=== PATIENT | male | born 1955 | race Hispanic/Latino ===

== ENCOUNTER 2019-03-26 13:53 | Emergency (ER) | payer OTHER ==
--- OUTSIDE RECORDS SUMMARY | 2019-03-26 13:55 | XMS REPORT ---
:1955 [facility] Team Providers Name Role Phone GabrielBenjamín Provider Role Unavailable Allergies, Adverse Reactions, Alerts Substance Reaction Event Type N.K.D.A. 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 automatic cardioverter/defibrillator (AICD) Problem Microalbuminuria R80.9 Active Problem Benign essential HTN I10 Active Problem Adult BMI 35.0-35.9 kg/sq m Z68.35 Active Problem Hyperlipidemia, mixed E78.2 Active Problem Arteriosclerosis of coronary artery I25.10 Active Problem Diabetes type 2, uncontrolled E11.65 Active Problem Stented coronary artery Z95.5 Active Assessment Adult BMI 35.0-35.9 kg/sq m Z68.35 Active Assessment Stented coronary artery Z95.5 Active Assessment Arteriosclerosis of coronary artery I25.10 Active Assessment Microalbuminuria R80.9 Active Assessment Hyperlipidemia, mixed E78.2 Active Assessment Status post implantation of 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 automatic cardioverter/defibrillator (AICD) Assessment Benign essential HTN I10 Active Medications Medication Code Code Instructions Start End Status Dosage System Date Date Jardiance [facility] 29021326203 25 MG Orally Nov 06, Inactive 1 tablet Once a day 2018 Metformin HCl [facility] 24270650762 1000 MG Orally Active 1 tablet Twice a day with meals Lipitor [facility] 18320868152 80 MG Orally Active 1 tablet Once a day Coreg [facility] 44101612141 6.25 MG Orally Active 1 tab BID Tradjenta [facility] 83266716860 5 MG Orally Active 1 tablet Once a day Tradjenta [facility] 91457421261 5 MG Orally Active 1 tablet Once a day Victoza [facility] 59508813259 18 MG/3ML Active as directed Subcutaneous once a day Metformin HCl [facility] 71358964568 1000 MG Orally Active 1 tablet Twice a day with meals Lisinopril [facility] 73003378676 5 MG Orally Active 1 tablet Once a day Glimepiride [facility] 02862399722 4 MG Orally Active 1 tablet Twice a day with breakfast or the first main meal of the day Aspir-81 [facility] 45029502904 81 MG Orally Active 1 tablet Once a day Results No Known Results Summary Purpose eClinicalWorks Submission
--- OUTSIDE RECORDS SUMMARY | 2019-03-26 13:55 | XMS REPORT ---
:1955 Author Organization eClinicalWorks Care Team Providers Name Role Phone Benjamín Gabriel Provider Role Unavailable Allergies, Adverse Reactions, Alerts Substance Reaction Event Type N.K.D.A. 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 automatic cardioverter/defibrillator (AICD) Problem Stented coronary artery Z95.5 Active Problem Hyperlipidemia, mixed E78.2 Active Assessment Status post implantation of 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 automatic cardioverter/defibrillator (AICD) Assessment Stented coronary artery Z95.5 Active Assessment Arteriosclerosis of coronary artery I25.10 Active Assessment Microalbuminuria R80.9 Active Assessment Hyperlipidemia, mixed E78.2 Active Medications Medication Code Code Instructions Start End Status Dosage System Date Date Coreg [facility] 00755344493 6.25 MG Orally Active 1 tab BID -81 [facility] 61274673095 81 MG Orally Active 1 tablet Once a day Metformin HCl [facility] 19985656492 1000 MG Orally Active 1 tablet Twice a day with meals Glimepiride [facility] 38930228336 4 MG Orally Active 1 tablet Twice a day with breakfast or the first main meal of the day Victoza [facility] 35292314286 18 MG/3ML Active as directed Subcutaneous once a day Lipitor [place] 53893178128 80 MG Orally Active 1 tablet Once a day Lisinopril [facility] 06265222293 5 MG Orally Active 1 tablet Once a day Jardiance [facility] 81442650555 25 MG Orally Active 1 tablet Once a day Results No Known Results Summary Purpose eClinicalWorks Submission
--- OUTSIDE RECORDS SUMMARY | 2019-03-26 13:55 | XMS REPORT ---
:1955 Author Organization eClinicalWorks Care Team Providers Name Role Phone GabrielBenjamín Provider Role Unavailable Allergies, Adverse Reactions, Alerts Substance Reaction Event Type N.K.D.A. 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 automatic cardioverter/defibrillator (AICD) Problem Stented coronary artery Z95.5 Active Problem Hyperlipidemia, mixed E78.2 Active Medications Medication Code Code Instructions Start End Status Dosage System Date Date Glimepiride [facility] 07625203751 4 MG Orally Active 1 tablet Twice a day with breakfast or the first main meal of the day Lisinopril [facility] 01953022015 5 MG Orally Active 1 tablet Once a day Jardiance [facility] 05200917156 25 MG Orally Active 1 tablet Once a day Glimepiride [facility] 22746600109 4 MG Orally Active 1 tablet Twice a day with breakfast or the first main meal of the day Coreg [facility] 24502931577 6.25 MG Orally Active 1 tab BID Aspir-81 [facility] 00925295838 81 MG Orally Active 1 tablet Once a day Tradjenta [facility] 75202411863 5 MG Orally Oct 18, Active 1 tablet Once a day 2018 Lipitor [facility] 78114188074 80 MG Orally Active 1 tablet Once a day Metformin HCl [facility] 11128443021 1000 MG Orally Active 1 tablet Twice a day with meals Pennsaid [facility] 90823423495 2 % Transdermal Oct 02, Nov 01, Active 2 pumps to Twice a day PRN 2018 2018 affected Pain area Victoza [facility] 12902112927 18 MG/3ML Active as directed Subcutaneous once a day Results No Known Results Summary Purpose eClinicalWorks Submission
--- OUTSIDE RECORDS SUMMARY | 2019-03-26 13:56 | XMS REPORT ---
:1955 Author Organization eClinicalWorks Care Team Providers Name Role Phone Benjamín Gabriel Provider Role Unavailable Allergies, Adverse Reactions, Alerts Substance Reaction Event Type N.K.D.A. Info Not Available Non Drug Allergy Problems Problem Type Condition Code Onset Dates Condition Status Problem Arteriosclerosis of coronary artery I25.10 Active Problem Status post implantation of 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 automatic cardioverter/defibrillator (AICD) Assessment Noncompliance with dietary Z91.11 Active restriction Assessment Adult BMI 35.0-35.9 kg/sq m Z68.35 Active Assessment Diabetes type 2, uncontrolled E11.65 Active Problem Adult BMI 35.0-35.9 kg/sq m Z68.35 Active Problem Microalbuminuria R80.9 Active Problem Noncompliance with dietary Z91.11 Active restriction Problem Stented coronary artery Z95.5 Active Problem Hyperlipidemia, mixed E78.2 Active Problem Benign essential HTN I10 Active Problem Diabetes type 2, uncontrolled E11.65 Active Medications Medication Code Code Instructions Start End Status Dosage System Date [facility] 2] 40215222338 81 MG Orally Active 1 tablet Once a day Coreg [facility] 2] 23811110337 6.25 MG Orally Active 1 tab BID Tradjenta [facility] 2] 73284277936 5 MG Orally Inactive 1 tablet Once a day Lipitor ND 65582808683 80 MG Orally Active 1 tablet Once a day Metformin HCl ND 15360005817 1000 MG Orally Active 1 tablet Twice a day with meals Glimepiride ND 41069661000 4 MG Orally Active 1 tablet Twice a day with breakfast or the first main meal of the day Lisinopril [facility] 2] 70749172324 5 MG Orally Active 1 tablet Once a day Farxiga [facility]NOTE 2] 43795891156 10mg By Mouth November Active 1 Daily 2018 Tradjenta [facility] [place]NOTE 2] 16744197396 5 MG Orally Active 1 tablet Once a day Victoza [facility] [place]NOTE 2] 39042367811 18 MG/3ML Active as directed Subcutaneous once a day Results Name Result Date Reference Range Unit Abnormality Flag HEMOGLOBIN A1C ----A1C 8.9 [id number] Summary Purpose eClinicalWorks Submission
--- NOTE | 2019-03-26 14:28 | ER ---
Nurse's Notes [facility] Name: Jayme Galeano Age: 64 yrs Sex: Male : 1955 Arrival Date: 03/26/2019 Time: 13:54 Bed 28 Private MD: Benjamín Gabriel Diagnosis: Mid Back pain Presentation: 03/26 14:06 Presenting complaint: Patient states: Mid back pain for 2 weeks. Seen by PCP and given aj IM injection. Has appointment tomorrow but feels he cannot wait. Care prior to arrival: None. 14:06 Acuity: ADY 4 aj 14:22 Transition of care: patient was not received from another setting of care. Onset of ca1 symptoms was March 26, 2019. Risk Assessment: Do you want to hurt yourself or someone else? Patient reports no desire to harm self or others. Initial Sepsis Screen: Does the patient meet any 2 criteria? No. Patient's initial sepsis screen is negative. Does the patient have a suspected source of infection? No. Patient's initial sepsis screen is negative. 14:22 Method Of Arrival: Wheelchair ca1 Triage Assessment: 14:07 General: Appears in no apparent distress. uncomfortable, Behavior is calm, cooperative, aj appropriate for age. Pain: Complains of pain in mid back area. Neuro: Level of Consciousness is awake, alert, obeys commands, Oriented to person, place, time, situation, Appropriate for age. Respiratory: Airway is patent Respiratory effort is even, unlabored, Respiratory pattern is regular, symmetrical. Musculoskeletal: Circulation, motion, and sensation intact. Range of motion: intact in all extremities, Reports pain in mid back area. Historical: - Allergies: 14:07 No Known Allergies; aj - Immunization history:: Adult Immunizations up to date. - Social history:: Smoking status: Patient/guardian denies using tobacco. - Ebola Screening: : Patient negative for fever greater than or equal to 101.5 degrees Fahrenheit, and additional compatible Ebola Virus Disease symptoms Patient denies exposure to infectious person Patient denies travel to an Ebola-affected area in the 21 days before illness onset. Screenin:16 Abuse screen: Denies threats or abuse. Denies injuries from another. Nutritional ca1 screening: No deficits noted. Tuberculosis screening: No symptoms or risk factors identified. Fall Risk None identified. Assessment: 14:16 General: Appears in no apparent distress. comfortable, Behavior is calm, cooperative, ca1 appropriate for age. Pain: Complains of pain in back and mid back area Pain does not radiate. Pain currently is 3 out of 10 on a pain scale. at worst was 8 out of 10 on a pain scale. Quality of pain is described as throbbing, Pain began 2-3 days ago. Is episodic, Aggravated by repositioning, weight bearing. Neuro: Level of Consciousness is awake, alert, obeys commands, Oriented to person, place, time, situation. Cardiovascular: Heart tones S1 S2 present Capillary refill < 3 seconds Patient's skin is warm and dry. Respiratory: Airway is patent Respiratory effort is even, unlabored, Respiratory pattern is regular, symmetrical, Breath sounds are clear bilaterally. GI: Abdomen is round non-distended, Bowel sounds present X 4 quads. Abd is soft and non tender X 4 quads. : No deficits noted. No signs and/or symptoms were reported regarding the genitourinary system. EENT: No deficits noted. No signs and/or symptoms were reported regarding the EENT system. Derm: Skin is intact, is healthy with good turgor, Skin is pink, warm \T\ dry. Musculoskeletal: Circulation, motion, and sensation intact. Capillary refill < 3 seconds, Range of motion: intact in all extremities. 14:46 Reassessment: Patient appears in no apparent distress at this time. Patient is alert, ca1 oriented x 3, equal unlabored respirations, skin warm/dry/pink. Vital Signs: 14:07 BP 114 / 74; Pulse 84; Resp 16; Temp 98.0; Pulse Ox 98% on R/A; Weight 97.52 kg; Height aj 5 ft. 6 in. (167.64 cm); 14:46 BP 114 / 59; Pulse 81; Resp 16 S; Pulse Ox 96% on R/A; ca1 14:07 Body Mass Index 34.70 (97.52 kg, 167.64 cm) aj ED Course: 13:54 Patient arrived in ED. as 13:54 Benjamín Gabriel DO is Private Physician. as 14:07 Triage completed. aj 14:07 Arm band placed on right wrist. Patient placed in an exam room. aj 14:12 [facility]nutson [facility]C [facility] kb 14:12 Etseban Muller MD is Attending Physician. kb 14:15 Alona Avalos, RN is Primary Nurse. ca1 14:16 Patient has correct armband on for positive identification. Bed in low position. Call ca1 light in reach. Side rails up X 1. Pulse ox on. NIBP on. 14:16 No provider procedures requiring assistance completed. ca1 14:47 Patient did not have IV access during this emergency room visit. ca1 Administered Medications: 14:28 Drug: [place] 10 mg-325 mg 1 tabs Route: PO; ca1 14:46 Follow up: Response: No adverse reaction; Pain is decreased ca1 Outcome: 14:27 Discharge ordered by MD. kb 14:47 Discharged to home via wheelchair, with family. ca1 14:47 Condition: stable 14:47 Discharge instructions given to patient, Instructed on discharge instructions, follow up and referral plans. medication usage, Demonstrated understanding of instructions, follow-up care, Prescriptions given X 2. 14:47 Patient left the ED. ca1 Signatures: Coco Knutson, CHARGE RN-C CHARGE RN-Maude Ovalles, RN RN Sayda Miller as Alona Avalos, IQRA RN ca1
--- NOTE | 2019-03-26 14:28 | EDPHYS ---
Physician Documentation [facility] Name: Jayme Galeano Age: 64 yrs Sex: Male : 1955 Arrival Date: 03/26/2019 Time: 13:54 Bed 28 Private MD: Benjamín Gabriel ED Physician Esteban Muller HPI: 03/26 14:24 This 64 yrs old Male presents to ER via Wheelchair with complaints of Back kb Pain. 14:24 The patient presents with pain that is acute, with no known mechanism of injury. The kb symptoms are located in the mid back area. Onset: The symptoms/episode began/occurred last week. The pain does not radiate. Associated signs and symptoms: Pertinent positives: none. The problem was sustained from unknown cause. Modifying factors: The patient symptoms are alleviated by nothing, the patient symptoms are aggravated by any movement. Severity of symptoms: At their worst the symptoms were moderate, in the emergency department the symptoms are unchanged. The patient has not experienced similar symptoms in the past. The patient has been recently seen by a physician:. Reports pain across mid back that started last week. Saw PCP and was given a shot that worked for 3 days, but the pain returned. Has appt with PCP tomorrow at 1000 for this, but wanted something for pain. Denies injury or trauma.. Historical: - Allergies: 14:07 No Known Allergies; aj - Immunization history:: Adult Immunizations up to date. - Social history:: Smoking status: Patient/guardian denies using tobacco. - Ebola Screening: : Patient negative for fever greater than or equal to 101.5 degrees Fahrenheit, and additional compatible Ebola Virus Disease symptoms Patient denies exposure to infectious person Patient denies travel to an Ebola-affected area in the 21 days before illness onset. ROS: 14:26 Constitutional: Negative for fever, chills, and weight loss, Neck: Negative for injury, kb pain, and swelling, Cardiovascular: Negative for chest pain, palpitations, and edema, Respiratory: Negative for shortness of breath, cough, wheezing, and pleuritic chest pain, Abdomen/GI: Negative for abdominal pain, nausea, vomiting, diarrhea, and constipation, : Negative for injury, bleeding, discharge, and swelling, MS/Extremity: Negative for injury and deformity, Skin: Negative for injury, rash, and discoloration, Neuro: Negative for headache, weakness, numbness, tingling, and seizure. 14:26 Back: Positive for pain at rest, pain with movement, of the mid back area. Exam: 14:27 Constitutional: This is a well developed, well nourished patient who is awake, alert, kb and in no acute distress. Head/Face: Normocephalic, atraumatic. ENT: Nares patent. No nasal discharge, no septal abnormalities noted. Tympanic membranes are normal and external auditory canals are clear. Oropharynx with no redness, swelling, or masses, exudates, or evidence of obstruction, uvula midline. Mucous membranes moist. Neck: Trachea midline, no thyromegaly or masses palpated, and no cervical lymphadenopathy. Supple, full range of motion without nuchal rigidity, or vertebral point tenderness. No Meningismus. Chest/axilla: Normal chest wall appearance and motion. Nontender with no deformity. No lesions are appreciated. Cardiovascular: Regular rate and rhythm with a normal S1 and S2. No gallops, murmurs, or rubs. Normal PMI, no JVD. No pulse deficits. Respiratory: Lungs have equal breath sounds bilaterally, clear to auscultation and percussion. No rales, rhonchi or wheezes noted. No increased work of breathing, no retractions or nasal flaring. Abdomen/GI: Soft, non-tender, with normal bowel sounds. No distension or tympany. No guarding or rebound. No evidence of tenderness throughout. Back: No spinal tenderness. No costovertebral tenderness. Full range of motion. Skin: Warm, dry with normal turgor. Normal color with no rashes, no lesions, and no evidence of cellulitis. MS/ Extremity: Pulses equal, no cyanosis. Neurovascular intact. Full, normal range of motion. Neuro: Awake and alert, GCS 15, oriented to person, place, time, and situation. Cranial nerves II-XII grossly intact. Motor strength 5/5 in all extremities. Sensory grossly intact. Cerebellar exam normal. Normal gait. Vital Signs: 14:07 BP 114 / 74; Pulse 84; Resp 16; Temp 98.0; Pulse Ox 98% on R/A; Weight 97.52 kg; Height aj 5 ft. 6 in. (167.64 cm); 14:46 BP 114 / 59; Pulse 81; Resp 16 S; Pulse Ox 96% on R/A; ca1 14:07 Body Mass Index 34.70 (97.52 kg, 167.64 cm) ryan MDM: 14:12 Patient medically screened. kb 14:24 Data reviewed: vital signs, nurses notes. Data interpreted: Pulse oximetry: on room air kb is 98 %. Interpretation: normal. Counseling: I had a detailed discussion with the patient and/or guardian regarding: the historical points, exam findings, and any diagnostic results supporting the discharge/admit diagnosis, the need for outpatient follow up, a family practitioner, to return to the emergency department if symptoms worsen or persist or if there are any questions or concerns that arise at home. Administered Medications: 14:28 Drug: [place] 10 mg-325 mg 1 tabs Route: PO; ca1 14:46 Follow up: Response: No adverse reaction; Pain is decreased ca1 Disposition: 17:19 Co-signature as Attending Physician, Esteban Muller MD I agree with the assessment and kdr plan of care. Disposition: 03/26/19 14:27 Discharged to Home. Impression: Mid Back pain. - Condition is Stable. - Discharge Instructions: Back Pain, Adult, [id number]. - Prescriptions for Cyclobenzaprine 10 mg Oral Tablet - take 1 tablet by ORAL route every 8 hours As needed; 21 tablet. Diclofenac Sodium 75 mg Oral Tablet, Delayed Release (E.C.) - take 1 tablet by ORAL route 2 times per day As needed; 30 tablet. - Medication Reconciliation Form, Thank You Letter, Antibiotic Education, Prescription Opioid Use form. - Follow up: Emergency Department; When: As needed; Reason: Worsening of condition. Follow up: Private Physician; When: 2 - 3 days; Reason: Recheck today's complaints, Continuance of care, Re-evaluation by your physician. Signatures: Coco Knutson, KAYLEIGH AGUDELO-Maude Ovalles RN RN aj Rittger, Kevin, MD MD [facility] Alona Avalos RN RN ca1 Corrections: (The following items were deleted from the chart) 14:47 14:27 03/26/2019 14:27 Discharged to Home. Impression: Mid Back pain. Condition is ca1 Stable. Forms are Medication Reconciliation Form, Thank You Letter, Antibiotic Education, Prescription Opioid Use. Follow up: Emergency Department; When: As needed; Reason: Worsening of condition. Follow up: Private Physician; When: 2 - 3 days; Reason: Recheck today's complaints, Continuance of care, Re-evaluation by your physician. kb
[2019-03-26] MEDS ORDERED: HYDROCODONE/APAP 10/325 TAB ONE (14:42)
== END 2019-03-26 14:47 | disposition home or self-care (01) ==
LOC: ER 13:53
DX: M54.9 Dorsalgia, unspecified (principal)
CPT/HCPCS: 99283

== ENCOUNTER 2019-07-16 01:09 | Inpatient (IN) | payer OTHER ==
[2019-07-16 01:49] LABS: Absolute Lymphocytes (CBC) 0.8 K/uL (0.7-4.9); Basophils % 0.2 % (0-1.3); Hematocrit 36.6 % (39.6-49.0); Lymphocytes % 10.9 % (15.3-44.8); MPV 10.1 fL (7.6-11.3); RBC Red Blood Cell Count 3.91 M/uL (4.33-5.43)
[2019-07-16 02:15] LABS: Protime INR 1.06
[2019-07-16 02:31] LABS: ALT/SGPT 38 U/L (12-78); AST/SGOT 22 U/L (15-37); Alkaline Phosphatase 46 U/L (45-117); BUN Blood Urea Nitrogen 37 mg/dL (7-18); Bicarbonate 22 mmol/L (21-32); Bilirubin Direct 0.3 mg/dL (0-0.2); Bilirubin Total 0.6 mg/dL (0.2-1.0); Magnesium 1.6 mg/dL (1.8-2.4); NT PRO-BNP 351 pg/mL (<125); Protein, Total 8.3 g/dL (6.4-8.2); Sodium Level 132 mmol/L (136-145); Troponin (Emerg Dept Use Only) < 0.02 ng/mL (0.0-0.045)
[2019-07-16 02:35] LABS: Glucose Level 531 mg/dL (74-106)
--- NOTE | 2019-07-16 02:50 | ER ---
Nurse's Notes [facility] Name: Jayme Galeano Age: 64 yrs Sex: Male : 1955 Arrival Date: 07/16/2019 Time: 01:10 Bed 19 Private MD: Diagnosis: Chest pain, unspecified Presentation: 07/16 01:22 Presenting complaint: Patient states: Chest pain that began at 2200 tonight; states lp1 taking Nitro x3 with little relief; States pain to center of chest. Transition of care: patient was not received from another setting of care. Onset of symptoms was July 15, 2019 at 22:00. Risk Assessment: Do you want to hurt yourself or someone else? Patient reports no desire to harm self or others. Initial Sepsis Screen: Does the patient meet any 2 criteria? No. Patient's initial sepsis screen is negative. Does the patient have a suspected source of infection? No. Patient's initial sepsis screen is negative. Care prior to arrival: None. 01:22 Method Of Arrival: Wheelchair lp1 01:22 Acuity: ADY 3 lp1 Triage Assessment: 01:51 General: Appears in no apparent distress. wh Historical: - Allergies: 01:26 No Known Allergies; lp1 - Home Meds: :26 Invokana 300 mg oral tab 1 tab once daily [Active]; Victoza 2-Thompson subcutaneous lp1 subcutaneous 1.2 mg once daily [Active]; glimepiride 4 mg Oral tab 1 tab twice a day [Active]; topiramate 50 mg oral tab 1 tab 2 times per day [Active]; atorvastatin 40 mg oral tab 1 tab once daily [Active]; lisinopril 5 mg Oral tab 1 tab once daily [Active]; carvedilol 6.25 mg oral tab 1 tab 2 times per day [Active]; - PMHx: 01:26 Diabetes - IDDM; Hypertension; Hyperlipidemia; lp1 - PSHx: :26 Heart stents; Defibrillator; lp1 - Immunization history:: Adult Immunizations up to date. - Social history:: Smoking status: Patient/guardian denies using tobacco. - Ebola Screening: : No symptoms or risks identified at this time. Screenin:27 Abuse screen: Denies threats or abuse. Denies injuries from another. Nutritional lp1 screening: No deficits noted. Tuberculosis screening: No symptoms or risk factors identified. Fall Risk None identified. Assessment: 01:52 General: Appears in no apparent distress. Behavior is calm, cooperative, appropriate wh for age. Pain: Complains of pain in chest Pain does not radiate. Pain currently is 3 out of 10 on a pain scale. Quality of pain is described as pressure, Pain began 4 hours ago. Neuro: Level of Consciousness is awake, alert, obeys commands, Oriented to person, place, time, situation, Appropriate for age. Cardiovascular: Heart tones S1 S2 Rhythm is regular. Respiratory: Airway is patent Respiratory effort is even, unlabored, Respiratory pattern is regular, symmetrical, Breath sounds are clear bilaterally. GI: Abdomen is flat, non-distended. : No signs and/or symptoms were reported regarding the genitourinary system. EENT: No signs and/or symptoms were reported regarding the EENT system. Derm: Skin is intact, is healthy with good turgor, Skin is pink, warm \T\ dry. normal. Musculoskeletal: Circulation, motion, and sensation intact. 03:19 Reassessment: Patient appears in no apparent distress at this time. No changes from previously documented assessment. Patient and/or family updated on plan of care and expected duration. Pain level reassessed. Patient is alert, oriented x 3, equal unlabored respirations, skin warm/dry/pink. Dr Delaney at bedside discussing admission orders Patient denies pain at this time. Patient states feeling better. Patient states symptoms have improved. Vital Signs: 01:23 BP 157 / 85; Pulse 96; Resp 18; Temp 97.9(O); Pulse Ox 96% on R/A; Weight 97.52 kg; lp1 Height 5 ft. 5 in. (165.10 cm); Pain 5/10; 03:19 BP 108 / 61; Pulse 86; Resp 20; Pulse Ox 98% on R/A; wh 01:23 Body Mass Index 35.78 (97.52 kg, 165.10 cm) lp1 ED Course: 01:10 Patient arrived in ED. cl3 01:13 Claudio Tony PA is PHCP. jr8 01:13 Donald Martinez MD is Attending Physician. jr8 01:15 Vernon Chacon is Primary Nurse. wh 01:15 Inserted saline lock: 20 gauge in right forearm, using aseptic technique. Blood collected. 01:23 Triage completed. lp1 01:23 Arm band placed on right wrist. lp1 01:27 Patient has correct armband on for positive identification. Placed in gown. Bed in low lp1 position. Call light in reach. transition coach on. Pulse ox on. NIBP on. 01:27 Patient maintains SpO2 saturation greater than 95% on room air. lp1 02:02 XRAY Chest (1 view) In Process Unspecified. EDMS 02:35 Notified Nurse Practitioner and/or Physician [address] [employer] of a critical lab result(s), glucose of 531. 02:48 Jeremiah Delaney is Hospitalizing Provider. jr8 04:25 No provider procedures requiring assistance completed. Patient admitted, IV remains in place. Administered Medications: 03:20 Drug: Insulin Regular Human 10 units {Co-Signature: francisco (Ryley Cardenas RN).} Route: Sub-Q; Site: abdomen; 04:27 Follow up: Response: No adverse reaction 03:23 Drug: Insulin Regular Human 10 units {Co-Signature: francisco (Ryley Cardenas RN).} Route: IVP; Site: right forearm; 04:27 Follow up: Response: No adverse reaction 03:24 Drug: Magnesium Sulfate 2 grams Route: IVPB; Infused Over: 2 hrs; Site: right forearm; 04:27 Follow up: Response: No adverse reaction; IV Status: Completed infusion Outcome: 02:48 Decision to Hospitalize by Provider. jr8 04:25 Admitted to [facility] accompanied by nurse, family with patient, via wheelchair, room 423, with chart, Report called to Tonia Costa RN, notified to recheck BS because of 20 units Regular insulin administered 04:25 Condition: stable 04:25 Instructed on the need for admit. 04:28 Patient left the ED. Signatures: Dispatcher [employer] EDCO Kateryna Quevedo, IQRA ESCALONA Velvet Hernandez RN RN lp1 Claudio Tony PA PA jr8 Vernon Chacon Aydin De Anda cl3 Ryley singh
--- NOTE | 2019-07-16 02:50 | EDPHYS ---
Physician Documentation [facility] Name: Jayme Galeano Age: 64 yrs Sex: Male : 1955 Arrival Date: 07/16/2019 Time: 01:10 Bed 19 Private MD: ED Physician Donald Martinez HPI: 07/16 01:22 This 64 yrs old Male presents to ER via Ambulatory with complaints of Chest jr8 Pain. 01:23 The patient or guardian reports chest pain that is located primarily in the substernal jr8 area. Onset: at 22:00. The pain does not radiate. Associated signs and symptoms: Pertinent positives: nausea. The chest pain is described as a pressure. Duration: The patient or guardian reports multiple episodes. Modifying factors: The symptoms are alleviated by NTG, X3. Severity of pain: At its worst the pain was mild today, in the emergency department the pain is unchanged. Pt reports onset of pressure like chest pain at 2200 today while walking out to close the door, mild relief of CP with nitro but pain is persisting after three doses of nitro. Last dose of nitro was at 0000. Pt states he was told to not take ASA by his ortho doc who did a steroid injection today. Historical: - Allergies: : No Known Allergies; lp1 - Home Meds: : Invokana 300 mg oral tab 1 tab once daily [Active]; Victoza 2-Thompson subcutaneous lp1 subcutaneous 1.2 mg once daily [Active]; glimepiride 4 mg Oral tab 1 tab twice a day [Active]; topiramate 50 mg oral tab 1 tab 2 times per day [Active]; atorvastatin 40 mg oral tab 1 tab once daily [Active]; lisinopril 5 mg Oral tab 1 tab once daily [Active]; carvedilol 6.25 mg oral tab 1 tab 2 times per day [Active]; - PMHx: : Diabetes - IDDM; Hypertension; Hyperlipidemia; lp1 - PSHx: : Heart stents; Defibrillator; lp1 - Immunization history:: Adult Immunizations up to date. - Social history:: Smoking status: Patient/guardian denies using tobacco. - Ebola Screening: : No symptoms or risks identified at this time. ROS: 01:22 Constitutional: Negative for fever, chills, and weight loss, Eyes: Negative for injury, jr8 pain, redness, and discharge, ENT: Negative for injury, pain, and discharge, Neck: Negative for injury, pain, and swelling, Respiratory: Negative for shortness of breath, cough, wheezing, and pleuritic chest pain, Abdomen/GI: Negative for abdominal pain, nausea, vomiting, diarrhea, and constipation, Back: Negative for injury and pain, Neuro: Negative for headache, weakness, numbness, tingling, and seizure. 01:22 Cardiovascular: Positive for chest pain, of the mid-sternal area, Negative for edema, orthopnea, palpitations. Exam: :23 Constitutional: This is a well developed, well nourished patient who is awake, alert, jr8 and in no acute distress. Head/Face: Normocephalic, atraumatic. Eyes: Pupils equal round and reactive to light, extra-ocular motions intact. Lids and lashes normal. Conjunctiva and sclera are non-icteric and not injected. Cornea within normal limits. Periorbital areas with no swelling, redness, or edema. ENT: Nares patent. No nasal discharge, no septal abnormalities noted. Tympanic membranes are normal and external auditory canals are clear. Oropharynx with no redness, swelling, or masses, exudates, or evidence of obstruction, uvula midline. Mucous membranes moist. Neck: Trachea midline, no thyromegaly or masses palpated, and no cervical lymphadenopathy. Supple, full range of motion without nuchal rigidity, or vertebral point tenderness. No Meningismus. Chest/axilla: Normal chest wall appearance and motion. Nontender with no deformity. No lesions are appreciated. Cardiovascular: Regular rate and rhythm with a normal S1 and S2. No gallops, murmurs, or rubs. Normal PMI, no JVD. No pulse deficits. Respiratory: Lungs have equal breath sounds bilaterally, clear to auscultation . No rales, rhonchi or wheezes noted. No increased work of breathing, no retractions or nasal flaring. Abdomen/GI: Soft, non-tender, with normal bowel sounds. No distension or tympany. No guarding or rebound. No evidence of tenderness throughout. Back: No spinal tenderness. No costovertebral tenderness. Full range of motion. MS/ Extremity: Pulses equal, no cyanosis. Neurovascular intact. Full, normal range of motion. Neuro: Awake and alert, GCS 15, oriented to person, place, time, and situation. Cranial nerves II-XII grossly intact. Motor strength 5/5 in all extremities. Sensory grossly intact. Cerebellar exam normal. Normal gait. Vital Signs: 01:23 BP 157 / 85; Pulse 96; Resp 18; Temp 97.9(O); Pulse Ox 96% on R/A; Weight 97.52 kg; lp1 Height 5 ft. 5 in. (165.10 cm); Pain 5/10; 03:19 BP 108 / 61; Pulse 86; Resp 20; Pulse Ox 98% on R/A; wh 01:23 Body Mass Index 35.78 (97.52 kg, 165.10 cm) lp1 MDM: 01:13 Patient medically screened. jr8 02:47 Data reviewed: vital signs, nurses notes, lab test result(s), EKG, radiologic studies, jr8 and as a result, I will admit patient. Data interpreted: Pulse oximetry: on room air is 96 %. Interpretation: normal. Counseling: I had a detailed discussion with the patient and/or guardian regarding: the historical points, exam findings, and any diagnostic results supporting the discharge/admit diagnosis, lab results, radiology results, the need for further work-up and treatment in the hospital. Physician consultation: Jeremiah Delaney was called at 02:48, was contacted at 02:48, and will see patient in ED. ED course: Pt chest pain is now 0 but has extensive history and risk factors, mag low and BGL high which were addressed in ED. Pt amendable to being admitted to obs for chest pain rule out and glycemic control.. 07/16 01:21 Order name: Basic Metabolic Panel; Complete Time: 02:36 8 07/16 01:21 Order name: CBC with Diff 8 07/16 01:21 Order name: LFT's; Complete Time: 02:36 8 07/16 01:21 Order name: Magnesium; Complete Time: 02:36 8 07/16 01:21 Order name: NT PRO-BNP; Complete Time: 02:36 8 07/16 01:21 Order name: PT-INR; Complete Time: 02:21 8 07/16 01:21 Order name: Troponin (emerg Dept Use Only); Complete Time: 02:36 8 07/16 03:35 Order name: Basic Metabolic Panel EDMS 07/16 03:35 Order name: Basic Metabolic Panel EDMS 07/16 03:36 Order name: Lipid Profile EDMS 07/16 03:36 Order name: CBC with Automated Diff EDMS 07/16 03:36 Order name: CBC with Automated Diff EDMS 07/16 03:36 Order name: Troponin I EDMS 07/16 03:36 Order name: Troponin I EDMS 07/16 01:21 Order name: XRAY Chest (1 view) jr8 07/16 01:21 Order name: EKG; Complete Time: 01:21 jr8 07/16 01:21 Order name: Cardiac monitoring; Complete Time: 01:27 jr8 07/16 01:21 Order name: EKG - Nurse/Tech; Complete Time: 01: jr8 07/16 03:36 Order name: CONS Physician Consult EDMS 07/16 03:36 Order name: Consistent Carb (ADA) 1800 Alen EDMS 07/16 03:36 Order name: Echo with Doppler EDMS 07/16 03:36 Order name: EKG Electrocardiogram EDMS 07/16 03:36 Order name: EKG Electrocardiogram EDMS 07/16 03:36 Order name: EKG Electrocardiogram EDMS 07/16 03:36 Order name: EKG Electrocardiogram EDMS 07/16 03:36 Order name: Troponin I EDMS 07/16 03:36 Order name: Troponin I EDMS 07/16 01:21 Order name: IV Saline Lock; Complete Time: 01:35 jr8 07/16 01:21 Order name: Labs collected and sent; Complete Time: : jr8 07/16 01:21 Order name: O2 Per Protocol; Complete Time: : jr8 07/16 01:21 Order name: O2 Sat Monitoring; Complete Time: : Administered Medications: 03:20 Drug: Insulin Regular Human 10 units {Co-Signature: francisco (Ryley Cardenas RN).} Route: Sub-Q; Site: abdomen; 04:27 Follow up: Response: No adverse reaction 03:23 Drug: Insulin Regular Human 10 units {Co-Signature: francisco (Ryley Cardenas RN).} Route: IVP; Site: right forearm; 04:27 Follow up: Response: No adverse reaction 03:24 Drug: Magnesium Sulfate 2 grams Route: IVPB; Infused Over: 2 hrs; Site: right forearm; 04:27 Follow up: Response: No adverse reaction; IV Status: Completed infusion Disposition: 05:09 Co-signature as Attending Physician, Donald Martinez MD. rn Disposition: 07/16/19 02:48 Hospitalization ordered by Jeremiah Delaney for Observation. Preliminary diagnosis is Chest pain, unspecified. - Bed requested for Telemetry/MedSurg (observation). - Status is Observation. - Condition is Stable. - Problem is new. - Symptoms are resolved. UTI on Admission? No Signatures: Dispatcher [employer] EDMS Tatiana Raman RN RN Donald Martinez MD MD rn Pena, Laura, RN RN lp1 Claudio Tony PA PA jr8 Vernon Chacon Ryley singh Corrections: (The following items were deleted from the chart) 03:18 02:48 Hospitalization Ordered by Jeremiah Delaney for Observation. Preliminary diagnosis mw is Chest pain, unspecified. Bed requested for Telemetry/MedSurg (observation). Status is Observation. Condition is Stable. Problem is new. Symptoms are resolved. UTI on Admission? No. jr8 04:28 03:18 07/16/2019 02:48 Hospitalization Ordered by Jeremiah Delaney for Observation. Preliminary diagnosis is Chest pain, unspecified. Bed requested for Telemetry/MedSurg (observation). Status is Observation. Condition is Stable. Problem is new. Symptoms are resolved. UTI on Admission? No.
[2019-07-16] MEDS ORDERED: Magnesium Sulfate 2gm IVPB 2 G/50 ML BAG IV ONE (03:01)
[2019-07-16] MEDS ORDERED: INSULIN -REGULAR HUMAN 50 UNIT/0.5 ML ML ONE (03:04)
--- NOTE | 2019-07-16 03:23 | P.HP ---
Certification for Inpatient Patient admitted to: Observation With expected LOS: <2 Midnights Patient will require the following post-hospital care: None Practitioner: I am a practitioner with admitting privileges, knowledge of patient current condition, hospital course, and medical plan of care. Services: Services provided to patient in accordance with Admission requirements found in Title 42 Section 412.3 of the Code of Federal Regulations Patient History Date of Service: 07/16/19 Reason for admission: Chest pain History of Present Illness: 64-year-old gentleman with an extensive history of coronary artery disease status post multiple stents presented to the emergency department with a complaint of chest pain of onset a few hours ago. Chest is located in the anterior chest, nonradiating, rated at 8/10 in maximum severity, partially relieved with sublingual nitroglycerin, no associated nausea or diaphoresis. Patient reports intermittent chest worse with exertion which normally completely resolve after a dose of sublingual nitroglycerin but this chest pain would not resolve completely after 3 doses of NTG. He therefore presented to the emergency department for evaluation. In the ED, initial troponin is negative. EKG demonstrates T-wave inversions in the lateral lead, and Q-waves indicating of old ID. Chest x-ray demonstrated no acute disease. Patient is placed under observation for further management of angina and ACS rule out. Allergies No Known Drug Allergies Allergy (Verified 07/16/19 05:33) Unknown Home medications list reviewed: Yes Home Medications: Atorvastatin Calcium [Lipitor] 40 mg PO DAILY 07/16/19 Carvedilol [Coreg*] 6.25 mg PO BID 07/16/19 Gabapentin 300 mg PO BID 07/16/19 Glimepiride [Amaryl] 4 mg PO BID 07/16/19 Liraglutide [Victoza 2-Thompson] 1.2 mg SQ DAILY 07/16/19 Lisinopril [Prinivil*] 5 mg PO DAILY 07/16/19 Metformin HCl [Glucophage*] 1,000 mg PO BID 07/16/19 Topiramate [Topamax] 50 mg PO BID 07/16/19 - Past Medical/Surgical History -: Coronary Artery disease -: Hypertension -: Diabetes mellitus type 2 -: Cardiac catheterization -: Cardiac stent - Family History Family History: Reviewed- Non-Contributory - Social History Alcohol use: No CD- Drugs: No Place of Residence: Home Review of Systems Other: General: No fever, no malaise, no unintentional weight loss. Eyes: No eye discharge, Respiratory: No cough, no shortness of breath. CVS: No palpitation, no lightheadedness. GI: No abdominal pain, no nausea no vomit, no constipation, no diarrhea. Genitourinary: No dysuria, no urinary frequency, no incontinence, no hematuria. Musculoskeletal: No joint pains, or joint swelling, no gait instability. Neurology: No headache, no asymmetric, weakness, no problem with swallowing. Except as documented, all other systems reviewed and negative. Physical Examination - Physical Exam General: Alert, In no apparent distress, Oriented x3 HEENT: Normocephalic, PERRLA, Mucous membr. moist/pink Neck: Supple, JVD not distended, No Thyromegaly Respiratory: Clear to auscultation bilaterally, Normal air movement Cardiovascular: No edema, Normal pulses, Regular rate/rhythm, Normal S1 S2, No murmurs Capillary refill: <2 Seconds Gastrointestinal: Normal bowel sounds, Soft and benign, Non-distended, No tenderness Musculoskeletal: No swelling, No erythema Integumentary: No rashes, No erythema Neurological: Normal strength at 5/5 x4 extr, Cranial nerves 3-12 intact - Studies Laboratory Data (last 24 hrs) 07/16/19 01:25: PT 12.5, INR 1.06 07/16/19 01:25: WBC 6.9, Hgb 12.5 L, Hct 36.6 L, Plt Count 181 07/16/19 01:25: Sodium 132 L, Potassium 5.0, BUN 37 H, Creatinine 1.83 H, Glucose 531 H*, Magnesium 1.6 L, Total Bilirubin 0.6, AST 22, ALT 38, Alkaline Phosphatase 46 Assessment and Plan - Problems (Diagnosis) (1) Chest pain Current Visit: Yes Status: Acute (2) CAD (coronary artery disease) Current Visit: Yes Status: Acute (3) Diabetes mellitus Current Visit: Yes Status: Acute Qualifiers: Diabetes mellitus type: type 2 - Plan Place under observation Telemetry Trend troponin x3 Order NTG p.r.n. Will increase Coreg to 12.5mg bid. Place him on aspirin, Plavix, and lipitor Morphine IV p.r.n. for pain Check echocardiogram Cardiology consult Insulin sliding scale for glucose management Hold glimepiride, Invokana and Victoza. Check hemoglobin A1c. - Advance Directives Does patient have a Living Will: No Does patient have a Durable POA for Healthcare: No
[2019-07-16] MEDS ORDERED: D50W 25 GM/50 ML SYRINGE IV PRN (03:28)
[2019-07-16] MEDS ORDERED: GLUCAGON 1 MG/VIAL IM PRN (03:28)
[2019-07-16] MEDS ORDERED: ACETAMINOPHEN 500 MG TAB PO PRN (03:28)
[2019-07-16] MEDS ORDERED: MORPHINE 4 MG/ML SYR IV PRN (03:28)
[2019-07-16] MEDS ORDERED: NITROGLYCERIN 0.4 MG/TAB SL PRN (03:28)
[2019-07-16 04:38] LABS: Blood Morphology Comment NOT SEEN (NOT SEEN); Platelet Estimate ADEQ; Urine White Blood Cell Casts OK
[2019-07-16] MEDS: CARVEDILOL 12.5 MG TAB PO SCH ×2 (05:03→17:08)
[2019-07-16 05:57] VITALS: BMI 36.3
--- NOTE | 2019-07-16 06:51 | P.PN ---
Date of Service: 07/16/19 2nd set of troponin noted to be elevated to 1.0. Patient re-evaluated. He denies any chest pain. Repeat EKG is grossly unchanged from EKG on presentation. Consult placed for cardiology to evaluate. Full dose lovenox. Case discussed with Dr. Winters.
--- NOTE | 2019-07-16 06:51 | EKG ---
Test Date: 2019-07-16 Test Time: 06:16:01 Net Developer: RT-O MEASUREMENT RESULTS: Intervals: Rate: 69 NH: 172 QRSD: 118 QT: 400 QTc: 428 [place]: P: 51 NH: 172 QRS: -15 T: 97 INTERPRETIVE STATEMENTS: Normal sinus rhythm Left ventricular hypertrophy with QRS widening Possible Lateral infarct, age undetermined Inferior infarct, age undetermined Abnormal ECG Compared to ECG 07/25/2001 09:54:00 Myocardial infarct finding still present Electronically Signed On 07-16-19 06:50:48 CDT by Ck Winters
[2019-07-16] MEDS ORDERED: D5 0.2 NS 1,000 ML IV SCH (08:00)
--- NOTE | 2019-07-16 08:30 | RAD REPORT ---
EXAM DESCRIPTION: Carlos Single View07/16/2019 2:02 am CLINICAL HISTORY: Chest pain COMPARISON: None FINDINGS: The lungs appear clear of acute infiltrate. The heart is mildly enlarged. Pacemaker leads are in place. IMPRESSION: No acute abnormalities displayed
[2019-07-16] MEDS: INSULIN -REGULAR HUMAN 50 UNIT/0.5 ML ML SQ SCH ×4 (08:40→20:32)
[2019-07-16] MEDS: ACETYLCYST 20% 800 MG/4 ML VIAL PO SCH ×2 (08:56→20:39)
[2019-07-16] MEDS ORDERED: HEPARIN 5000 UNIT/ML 1 ML VIAL SQ SCH (09:00)
[2019-07-16] MEDS ORDERED: ENOXAPARIN 100 MG/ML SYR SQ SCH (09:00)
[2019-07-16] MEDS ORDERED: ASPIRIN EC 81 MG TAB PO SCH (09:00)
[2019-07-16] MEDS ORDERED: CLOPIDOGREL 75 MG TABLET PO SCH (09:00)
--- NOTE | 2019-07-16 09:03 | CON ---
Chief Complaint: Chest pain. History Of Present Illness: Mr. Galeano has been having exertional angina for weeks or months. He di d not seek any medical attention for it and he had a more prolonged episode that did go away with soni shook, came to the hospital and since being here in the hospital his EKG shows a large old anter ior VA, QRS widening, nonspecific repolarization changes and his cardiac enzymes have gone up from le ss than 0.02 to 1.09. This is consistent with a non-ST elevation VA. He had stents placed in his he art in 2007, 2 separate stents in 1 artery, the best that I can figure out from the patient, we do no t have any old records. He has not had any followup with me or Dr. Verdugo or [facility] recently. Medications: Outpatient medications have been topiramate, metformin, lisinopril, Victoza, glimepirid e, gabapentin, carvedilol, atorvastatin, aspirin, and nitroglycerin as needed. He has been using a l ot of nitroglycerin pills. Allergies: HE HAS NO DRUG ALLERGIES. Physical Examination: Vital Signs: 5 feet 5, 218 pounds. General: Obese, alert, oriented, pleasant, not in distress. Denies any chest pain. HEENT: Normal. Lungs: Clear. Heart: Exam is within normal limits. Abdomen: Soft. Extremities: Palpable pulses. Radial pulses are nonexistent. I do not think he has adequate pulses to attempt a radial heart cath. He does need a heart catheteri zation and we should try to do it today since he is asymptomatic. It could perhaps be delayed until tomorrow. His creatinine is 1.83. I am going to give him some hydration with quarter-normal saline and give him Mucomyst. We plan to do a heart catheterization either very late today as the computer lab para professional is looking busy or early tomorrow with Dr. Verdugo. The patient seems to understand the procedure, p otential benefits, indications, risks, and agrees to proceed. YENNY/FITZ Voice ID: [id number] Report ID: [id number]
--- NOTE | 2019-07-16 09:34 | EKG ---
Test Date: 2019-07-16 Test Time: 01:15:46 Script Supervisor: MARK MEASUREMENT RESULTS: Intervals: Rate: 94 MD: 174 QRSD: 120 QT: 350 QTc: 437 [place]: P: 57 MD: 174 QRS: 22 T: -48 INTERPRETIVE STATEMENTS: Normal sinus rhythm Inferior infarct, age undetermined Anterior infarct, age undetermined T wave abnormality, consider lateral ischemia Abnormal ECG Compared to ECG 07/25/2001 09:54:00 T-wave abnormality now present Possible ischemia now present Left ventricular hypertrophy no longer present Myocardial infarct finding still present Electronically Signed On 07-16-19 09:33:26 CDT by Ck Winters
[2019-07-16] MEDS ORDERED: HEPA 1000U/500MLS 2,000 UNIT/1,000 ML BAG IV ONE (12:14)
[2019-07-16] MEDS ORDERED: NA CHLORIDE 0.9% 500 ML ONE (13:39)
--- NOTE | 2019-07-16 14:08 | P.PN ---
Subjective Date of Service: 07/16/19 Primary Care Provider: Dr. Nieves Chief Complaint: Chest pain Subjective: Doing well Physical Examination - Vital Signs Temperature: 97.3 F Blood Pressure: 127/68 Pulse: 59 Respirations: 18 Pulse Ox (%): 95 - Physical Exam General: Alert, In no apparent distress, Oriented x3, Cooperative HEENT: Atraumatic Neck: Supple Respiratory: Clear to auscultation bilaterally, Normal air movement Cardiovascular: Normal pulses, Regular rate/rhythm Gastrointestinal: Normal bowel sounds, Soft and benign, Non-distended Neurological: Normal speech, Normal strength at 5/5 x4 extr, Normal tone, Normal affect - Studies Laboratory Data (last 24 hrs) 07/16/19 01:25: PT 12.5, INR 1.06 07/16/19 01:25: WBC 6.9, Hgb 12.5 L, Hct 36.6 L, Plt Count 181 07/16/19 01:25: Sodium 132 L, Potassium 5.0, BUN 37 H, Creatinine 1.83 H, Glucose 531 H*, Magnesium 1.6 L, Total Bilirubin 0.6, AST 22, ALT 38, Alkaline Phosphatase 46 Medications List Reviewed: Yes Assessment & Plan Discharge Plan: Home Plan to discharge in: 24 Hours Physician Review Additional Text: Impression: Chest pain secondary to NSTEMI suspect CAD Diabetes mellitus type 2 non-insulin dependent with hyperglycemia Hypertension Hyperlipidemia Diabetic neuropathy Acute on chronic renal failure stage 3 Plan: Chest pain secondary to NSTEMI suspect CAD: Patient seen and evaluated by Cardiology. Cardiology plans for heart catheterization today to further evaluate. Await findings. Patient will be given mucomyst due to likely acute on chronic renal failure. Will monitor lab closely. Continue with aspirin, Plavix, Lovenox, statin medication and blood pressure control. Will continue monitor closely. Hospitalist Dr. Gabriel will continue his care tomorrow. Diabetes mellitus type 2 non-insulin dependent with hyperglycemia: Will check A1c. Will hold metformin as the patient will get heart catheterization today. Will continue Accu-Cheks and sliding scale. Patient may require basal insulin at discharge. Hypertension: We will hold lisinopril due to acute on chronic renal failure. Continue blood pressure medication. Will monitor and adjust appropriately. Hyperlipidemia: Continue statin medication Diabetic neuropathy: Continue gabapentin. Acute on chronic renal failure stage 3: Suspect underlying chronic renal disease. Will hold lisinopril and metformin as the patient will require heart catheterization. Will provide IV fluids. Will monitor closely. Will continue to reassess. Will obtain renal ultrasound to further evaluate. Patient may require nephrology consultation if his all function continues to decline. Time Spent Managing Pts Care (In Minutes): 55
[2019-07-16] MEDS ORDERED: FENTANYL CITR 100 MCG/2 ML ONE (14:15)
[2019-07-16] MEDS ORDERED: MIDAZOLAM HCL 2 MG/2 ML INJ ONE (14:15)
[2019-07-16] MEDS ORDERED: NA CHLORIDE 0.9% 0 ML ONE (14:15)
[2019-07-16] MEDS ORDERED: ATROPINE SULF 1 MG/10 ML SYR IV ONE (14:15)
[2019-07-16 16:17] VITALS: O2SAT 97
[2019-07-16 20:42] LABS: Urine Appearance CLEAR; Urine Bilirubin NEGATIVE (NEG); Urine Blood NEGATIVE (NEG); Urine Color YELLOW; Urine Glucose 3+ (NEG); Urine Protein NEGATIVE (NEG); Urine Specific Gravity >=1.030 (1.005-1.030); Urine Urobilinogen 0.2 mg/dL (0.2-1.0)
[2019-07-16 20:53] LABS: Urine Microscopic Reflex NO UMIC
[2019-07-16] MEDS ORDERED: TOPIRAMATE 25 MG TAB PO SCH (21:00)
[2019-07-16] MEDS ORDERED: GABAPENTIN 300 MG CAP PO SCH (21:00)
[2019-07-16] MEDS ORDERED: ATORVASTATIN 40 MG TAB PO SCH (21:00)
[2019-07-16] MEDS ORDERED: TOPIRAMATE 50 MG PO SCH (21:00)
[2019-07-16 22:46] VITALS: BP 155/70; TEMP 97
--- NOTE | 2019-07-17 01:24 | OP ---
Surgeon: Ck Winters MD Patient Identification: 64-year-old man. Procedure: Left heart catheterization with coronary left ventricular angiography. Procedure Findings: The patient has depressed ejection fraction about 40%. The inferior wall and di aphragmatic surface are completely akinetic. In general the left ventricle is dilated. There is a d efibrillator in place, single chamber. His right coronary is 100% occluded. The left main is quite short. The ostium of the LAD has a 90% stenosis. The mid LAD has 70% stenosis. The circumflex is f ree of any significant disease, but it is very close to being affected by the ostial LAD lesion, whic h is right next to it. Our recommendation is for him to go through coronary bypass surgery by Dr. Bhavesh guevara at [facility]. Dr. Ratliff has already agreed to take the patient in transfer. Procedure In Detail: Patient was brought to the cardiac skilled labor fasting, sedated with Versed and fe ntanyl. Prepared and draped in usual sterile fashion. Right femoral artery tissues were anesthetize d with 1% lidocaine. Artery was entered using an 18-gauge needle, cannulated with a 0.035 guidewire, and then a 4-[place] sheath was placed. We used a JL4 to angiogram left coronary, 3DRC to angiogram the right. Angled pigtail to angiogram the left ventricle. At the end of the procedure, catheters w ere withdrawn over a wire. A sheath shot was done. Adequate anatomy was seen for us to close using a StarClose device, this was successful. Estimated Blood Loss: 10 mL. Complications: None. Meal Miller: Mavis Westbrook. The recommendation is the patient be transferred to a higher level of care so he can undergo coronary bypass surgery. YENNY/FITZ Voice ID: [id number] Report ID: [id number]
== END 2019-07-16 21:00 | disposition short-term general hospital (02) | DRG 281 ==
LOC: ER 01:09 → 4TH 03:54 → OBSVTOIN 15:27
PROVIDERS: ADMIT Internal Medicine; ATTEND Family Medicine
PROC: 4A023N7 Measurement of Cardiac Sampling and Pressure, Left Heart, Percutaneous Approach (ICD-10-PCS; principal; 2019-07-16)
PROC: B205YZZ Plain Radiography of Left Heart using Other Contrast (ICD-10-PCS; 2019-07-16)
DX: I21.4 Non-ST elevation (NSTEMI) myocardial infarction (principal); N17.9 Acute kidney failure, unspecified; N18.3 Chronic kidney disease, stage 3 (moderate); I25.10 Atherosclerotic heart disease of native coronary artery without angina pectoris; I12.9 Hypertensive chronic kidney disease with stage 1 through stage 4 chronic kidney disease, or unspecified chronic kidney disease; E11.65 Type 2 diabetes mellitus with hyperglycemia; E11.40 Type 2 diabetes mellitus with diabetic neuropathy, unspecified
CPT/HCPCS: 36415; 71045; 80048; 80061; 80076; 81003; 82962; 83735; 83880; 84484; 85025; 85610; 93005; 93458; 96365; 96372; 96375; 99285; C1893; G0378; J0583; J1644; J2250; J3010; J3475; J7040

== ENCOUNTER 2019-10-15 14:04 | Observation (INO) | payer OTHER ==
--- OUTSIDE RECORDS SUMMARY | 2019-10-15 14:12 | XMS REPORT ---
:1955 [facility] Address [address] [place] [address] Care Team Providers Name Role Phone GAMALIEL HENSLEY (RANJIT) BRIAN Unavailable Unavailable Problems This patient has no known problems. Allergies, Adverse Reactions, Alerts This patient has no known allergies or adverse reactions. Medications This patient has no known medications. Results Test Description Test Time Test Comments Text Results Atomic Results Result Comments POCT-GLUCOSE METER 2019-07-26 08:24:00 Test Item Value Reference Range Comments POC-GLUCOSE METER (BEAKER) 166 mg/dL 70-110 : Notified RN/MD: TESTED AT [place] [address] (test ovzf=9059) [facility], [address]: Visual Developer/Automobile Leasing Supervisor [id number] for MANSI BALL POCT-GLUCOSE [id number] 22:46:00 Test Item Value Reference Range Comments POC-GLUCOSE METER (BEAKER) 173 mg/dL 70-110 : TESTED AT [address] (test ehfr=1411) [facility], [address]: Visual Developer/Automobile Leasing Supervisor [id number] for PatrickGeovanny POCT-GLUCOSE [id number] 18:44:00 Test Item Value Reference Range Comments POC-GLUCOSE METER (BEAKER) 185 mg/dL 70-110 : TESTED AT [address] (test emck=8610) [facility], [address]: Visual Developer/Automobile Leasing Supervisor [id number] for AVILA, SHELLY POCT-GLUCOSE [id number] 17:05:00 Test Item Value Reference Range Comments POC-GLUCOSE METER (BEAKER) 214 mg/dL 70-110 : TESTED AT [address] (test qxvg=9119) [facility], [address]: Visual Developer/Automobile Leasing Supervisor [phone] for AVILA, SHELLY CBC W/PLT COUNT & AUTO [id number] 16:37:00 Test Item Value Reference Range Comments WHITE BLOOD CELL COUNT (BEAKER) (test dltw=677) 8.7 K/ L 3.5-10.5 RED BLOOD CELL COUNT (BEAKER) (test agzm=945) 2.79 M/ L 4.63-6.08 HEMOGLOBIN (BEAKER) (test jhyp=529) 9.0 GM/DL 13.7-17.5 HEMATOCRIT (BEAKER) (test iurk=140) 26.2 % 40.1-51.0 MEAN CORPUSCULAR VOLUME (BEAKER) (test ibvr=542) 93.9 fL 79.0-92.2 MEAN CORPUSCULAR HEMOGLOBIN (BEAKER) (test 32.3 pg 25.7-32.2 ucvu=649) MEAN CORPUSCULAR HEMOGLOBIN CONC (BEAKER) (test 34.4 GM/DL 32.3-36.5 jiki=903) RED CELL DISTRIBUTION WIDTH (BEAKER) (test 13.3 % 11.6-14.4 yqjs=498) PLATELET COUNT (BEAKER) (test xehf=645) 219 K/CU MM 150-450 MEAN PLATELET VOLUME (BEAKER) (test qpxm=420) 10.5 fL 9.4-12.4 NUCLEATED RED BLOOD CELLS (BEAKER) (test 0 /100 WBC 0-0 mhxw=469) NEUTROPHILS RELATIVE PERCENT (BEAKER) (test 66 % olmw=115) LYMPHOCYTES RELATIVE PERCENT (BEAKER) (test 21 % hrgx=592) MONOCYTES RELATIVE PERCENT (BEAKER) (test 10 % rmgx=933) EOSINOPHILS RELATIVE PERCENT (BEAKER) (test 2 % ethx=031) BASOPHILS RELATIVE PERCENT (BEAKER) (test 0 % hsvx=437) NEUTROPHILS ABSOLUTE COUNT (BEAKER) (test 5.71 K/ L 1.78-5.38 tuje=102) LYMPHOCYTES ABSOLUTE COUNT (BEAKER) (test 1.87 K/ L 1.32-3.57 dpwb=342) MONOCYTES ABSOLUTE COUNT (BEAKER) (test 0.88 K/ L 0.30-0.82 upox=663) EOSINOPHILS ABSOLUTE COUNT (BEAKER) (test 0.21 K/ L 0.04-0.54 uzsh=051) BASOPHILS ABSOLUTE COUNT (BEAKER) (test 0.03 K/ L 0.01-0.08 eynp=411) IMMATURE GRANULOCYTES-RELATIVE PERCENT (BEAKER) 0 % 0-1 (test khhq=9920) POCT-GLUCOSE [id number] 14:13:00 Test Item Value Reference Range Comments POC-GLUCOSE METER (BEAKER) 194 mg/dL 70-110 : TESTED AT [facility] [address] [facility] (test yxbx=7673) [facility], [address]: Visual Developer/Automobile Leasing Supervisor [id number] for TEO DIAZ POCT-GLUCOSE [id number] 12:08:00 Test Item Value Reference Range Comments POC-GLUCOSE METER (BEAKER) 228 mg/dL 70-110 : TESTED AT [facility] [address] [facility] (test umre=6391) [facility], [address]: Visual Developer/Automobile Leasing Supervisor [id number] for CHAPO ROSS [id number] 10:00:00 Test Item Value Reference Range Comments PHOSPHORUS (BEAKER) (test zskx=252) 2.7 mg/dL 2.3-4.7 [id number] 10:00:00 Test Item Value Reference Range Comments MAGNESIUM (BEAKER) (test mmut=331) 1.6 mg/dL 1.6-2.6 BASIC METABOLIC [id number] 10:00:00 Test Item Value Reference Range Comments SODIUM (BEAKER) (test 133 meq/L 136-145 hrrm=359) POTASSIUM (BEAKER) (test 4.0 meq/L 3.5-5.1 cdgz=259) CHLORIDE (BEAKER) (test 100 meq/L 98-107 hupw=248) CO2 (BEAKER) (test 25 meq/L 22-29 iyec=430) BLOOD UREA NITROGEN 23 mg/dL 7-21 (BEAKER) (test jabx=882) CREATININE (BEAKER) (test 0.87 mg/dL 0.57-1.25 ajrg=202) GLUCOSE RANDOM (BEAKER) 209 mg/dL 70-105 (test uwbk=367) CALCIUM (BEAKER) (test 8.8 mg/dL 8.4-10.2 ueyr=220) EGFR (BEAKER) (test 88 mL/min/1.73 sq m ESTIMATED GFR IS NOT qtst=1883) ACCURATE CREATININE CLEARANCE IN PREDICTING GLOMERULAR FILTRATION RATE. ESTIMATED GFR IS NOT APPLICABLE FOR DIALYSIS PATIENTS. POCT-GLUCOSE [id number] 07:47:00 Test Item Value Reference Range Comments POC-GLUCOSE METER (BEAKER) 146 mg/dL 70-110 : TESTED AT [address] (test innc=6529) [facility], [address]: Visual Developer/Automobile Leasing Supervisor [id number] for CHAPO ROSS POCT-GLUCOSE [id number] 21:28:00 Test Item Value Reference Range Comments POC-GLUCOSE METER (BEAKER) 218 mg/dL 70-110 : TESTED AT [address] (test lkvy=0378) [facility], [address]: Visual Developer/Automobile Leasing Supervisor [id number] for JUN TOMLINSON POCT-GLUCOSE [id number] 18:40:00 Test Item Value Reference Range Comments POC-GLUCOSE METER (BEAKER) 328 mg/dL 70-110 : TESTED AT [address] (test lnpg=1799) [facility], [address]: Visual Developer/Automobile Leasing Supervisor [id number] for JOSEFINA BHANDARI POCT-GLUCOSE [id number] 18:30:00 Test Item Value Reference Range Comments POC-GLUCOSE METER (BEAKER) 304 mg/dL 70-110 : TESTED AT [address] (test cfzy=0208) [facility], [address]: Visual Developer/Automobile Leasing Supervisor [id number] for MCKEON SOFIE RAD, CHEST, 1 VIEW, NON [id number] 12:14:00Reason for exam:->Post ACBShould this be performed at the bedside?->YesFINAL REPORT CLINICAL HISTORY: Post ACB TECHNIQUE: 1 view of the chest. COMPARISON : 07/23/2019 IMPRESSION: A trace left apical pneumothorax appears to have resolved. There is increased left lower lung consolidation. Pulmonary vascular congestion is again seen. The cardiomediastinal silhouette is magnified by technique with sternotomy wires and a pacemaker. Signed: Laura Mercer MDReport Verified Date/Time: 07/24/2019 12:14:16 Reading Location: [facility] Radiology ReadingRoom Electronically signed by: LAURA MERCER M.D. on 12:14 PMPOCT-GLUCOSE [id number] 12:09:00 Test Item Value Reference Range Comments POC-GLUCOSE METER (BEAKER) 290 mg/dL 70-110 : TESTED AT [facility] [address] (test juml=6020) [facility], [address]: Visual Developer/Automobile Leasing Supervisor [id number] for SOFIE MCKEON POCT-GLUCOSE [id number] 08:25:00 Test Item Value Reference Range Comments POC-GLUCOSE METER (BEAKER) 186 mg/dL 70-110 : TESTED AT [facility] [address] [facility] (test rlmo=1021) [facility], [address]: Visual Developer/Automobile Leasing Supervisor [id number] for SOFIE MCKEON OXYGEN SATURATION, [id number] 06:48:00 Test Item Value Reference Range Comments O2 SATURATION (MEASURED) (BEAKER) (test mcfk=8669) 97.6 % [id number] 04:48:00 Test Item Value Reference Range Comments PHOSPHORUS (BEAKER) (test djhe=308) 1.4 mg/dL 2.3-4.7 [id number] 04:42:00 Test Item Value Reference Range Comments MAGNESIUM (BEAKER) (test ccze=980) 1.8 mg/dL 1.6-2.6 BASIC METABOLIC [id number] 04:42:00 Test Item Value Reference Range Comments SODIUM (BEAKER) (test 134 meq/L 136-145 wnco=726) POTASSIUM (BEAKER) (test 4.0 meq/L 3.5-5.1 vkch=898) CHLORIDE (BEAKER) (test 104 meq/L 98-107 ioir=762) CO2 (BEAKER) (test 23 meq/L 22-29 fwoe=082) BLOOD UREA NITROGEN 19 mg/dL 7-21 (BEAKER) (test zrdu=950) CREATININE (BEAKER) (test 0.88 mg/dL 0.57-1.25 tunp=119) GLUCOSE RANDOM (BEAKER) 230 mg/dL 70-105 (test xyxx=301) CALCIUM (BEAKER) (test 8.6 mg/dL 8.4-10.2 qrox=485) EGFR (BEAKER) (test 87 mL/min/1.73 sq m ESTIMATED GFR IS NOT dslv=5985) ACCURATE CREATININE CLEARANCE IN PREDICTING GLOMERULAR FILTRATION RATE. ESTIMATED GFR IS NOT APPLICABLE FOR DIALYSIS PATIENTS. CBC W/PLT COUNT & AUTO [id number] 04:17:00 Test Item Value Reference Range Comments WHITE BLOOD CELL COUNT (BEAKER) (test ofoi=444) 9.4 K/ L 3.5-10.5 RED BLOOD CELL COUNT (BEAKER) (test gsdx=999) 2.53 M/ L 4.63-6.08 HEMOGLOBIN (BEAKER) (test xube=941) 8.0 GM/DL 13.7-17.5 HEMATOCRIT (BEAKER) (test vlna=158) 23.4 % 40.1-51.0 MEAN CORPUSCULAR VOLUME (BEAKER) (test yhjx=763) 92.5 fL 79.0-92.2 MEAN CORPUSCULAR HEMOGLOBIN (BEAKER) (test 31.6 pg 25.7-32.2 wdtr=958) MEAN CORPUSCULAR HEMOGLOBIN CONC (BEAKER) (test 34.2 GM/DL 32.3-36.5 ayuo=713) RED CELL DISTRIBUTION WIDTH (BEAKER) (test 13.3 % 11.6-14.4 cogb=681) PLATELET COUNT (BEAKER) (test fisk=058) 135 K/CU MM 150-450 MEAN PLATELET VOLUME (BEAKER) (test fuzi=552) 11.8 fL 9.4-12.4 NUCLEATED RED BLOOD CELLS (BEAKER) (test 0 /100 WBC 0-0 xfat=722) NEUTROPHILS RELATIVE PERCENT (BEAKER) (test 70 % zcqe=409) LYMPHOCYTES RELATIVE PERCENT (BEAKER) (test 15 % bgxr=899) MONOCYTES RELATIVE PERCENT (BEAKER) (test 12 % zxng=078) EOSINOPHILS RELATIVE PERCENT (BEAKER) (test 1 % ajel=202) BASOPHILS RELATIVE PERCENT (BEAKER) (test 0 % dnmv=733) NEUTROPHILS ABSOLUTE COUNT (BEAKER) (test 6.64 K/ L 1.78-5.38 yrqk=776) LYMPHOCYTES ABSOLUTE COUNT (BEAKER) (test 1.42 K/ L 1.32-3.57 bwkr=824) MONOCYTES ABSOLUTE COUNT (BEAKER) (test 1.12 K/ L 0.30-0.82 ctyg=082) EOSINOPHILS ABSOLUTE COUNT (BEAKER) (test 0.10 K/ L 0.04-0.54 tvny=896) BASOPHILS ABSOLUTE COUNT (BEAKER) (test 0.03 K/ L 0.01-0.08 uuwm=057) IMMATURE GRANULOCYTES-RELATIVE PERCENT (BEAKER) 1 % 0-1 (test bcmj=4368) POCT-GLUCOSE [id number] 21:21:00 Test Item Value Reference Range Comments POC-GLUCOSE METER (BEAKER) 277 mg/dL 70-110 : TESTED AT [address] (test nvnq=1557) [facility], [address]: Visual Developer/Automobile Leasing Supervisor [id number] for JUN TOMLINSON POCT-GLUCOSE [id number] 17:11:00 Test Item Value Reference Range Comments POC-GLUCOSE METER (BEAKER) 272 mg/dL 70-110 : TESTED AT [address] (test pyln=1100) [facility], [address]: Visual Developer/Automobile Leasing Supervisor [id number] for SOFIE MCKEON POCT-GLUCOSE [id number] 12:53:00 Test Item Value Reference Range Comments POC-GLUCOSE METER (BEAKER) 214 mg/dL 70-110 : Notified RN/MD: TESTED AT (test lmep=3738) [address], [address]: Visual Developer/Automobile Leasing Supervisor [id number] for CHAPO ROSS POCT-GLUCOSE [id number] 12:51:00 Test Item Value Reference Range Comments POC-GLUCOSE METER (BEAKER) 310 mg/dL 70-110 : TESTED AT [address] (test kftq=4249) [facility], [address]: Visual Developer/Automobile Leasing Supervisor [id number] for SOFIE MCKEON RAD, CHEST, 1 VIEW, NON [id number] 09:52:00Reason for exam:->Post ACBShould this be performed at the bedside?->YesFINAL REPORT CLINICAL HISTORY: Post ACB TECHNIQUE: 1 view of the chest. COMPARISON: 07/22/2019 IMPRESSION: The lines and tubes have been removed. There is a new trace left apicalpneumothorax, for which attention on follow-up is recommended. Pulmonary vascular congestion appears decreased. Left lung base opacity is otherwise unchanged. The cardiomediastinal silhouette is magnified by technique with sternotomy wires and a pacemaker. Signed: Laura Mercer MDReport Verified Date/Time: 07/23/2019 09:52:55 Reading Location: [facility] Radiology Reading Room POCT-GLUCOSE [id number] 07:50:00 Test Item Value Reference Range Comments POC-GLUCOSE METER (BEAKER) 209 mg/dL 70-110 : TESTED AT [facility] [address] (test ymqe=2423) [facility], [address]: Visual Developer/Automobile Leasing Supervisor [id number] for SOFIE MCKEON [id number] 06:47:00 Test Item Value Reference Range Comments PHOSPHORUS (BEAKER) (test hpsb=253) 2.4 mg/dL 2.3-4.7 [id number] 06:47:00 Test Item Value Reference Range Comments MAGNESIUM (BEAKER) (test tilh=501) 2.0 mg/dL 1.6-2.6 BASIC METABOLIC [id number] 06:47:00 Test Item Value Reference Range Comments SODIUM (BEAKER) (test 131 meq/L 136-145 wtvt=319) POTASSIUM (BEAKER) (test 4.4 meq/L 3.5-5.1 rsfd=470) CHLORIDE (BEAKER) (test 103 meq/L 98-107 auxe=280) CO2 (BEAKER) (test 24 meq/L 22-29 nkax=192) BLOOD UREA NITROGEN 20 mg/dL 7-21 (BEAKER) (test nmub=682) CREATININE (BEAKER) (test 1.03 mg/dL 0.57-1.25 qglr=903) GLUCOSE RANDOM (BEAKER) 218 mg/dL 70-105 (test poxy=579) CALCIUM (BEAKER) (test 8.3 mg/dL 8.4-10.2 gael=060) EGFR (BEAKER) (test 72 mL/min/1.73 sq m ESTIMATED GFR IS NOT ydmm=2377) ACCURATE CREATININE CLEARANCE IN PREDICTING GLOMERULAR FILTRATION RATE. ESTIMATED GFR IS NOT APPLICABLE FOR DIALYSIS PATIENTS. OXYGEN SATURATION, [id number] 06:02:00 Test Item Value Reference Range Comments O2 SATURATION (MEASURED) (BEAKER) (test vsso=3532) 74.3 % CBC W/PLT COUNT & AUTO [id number] 05:44:00 Test Item Value Reference Range Comments WHITE BLOOD CELL COUNT (BEAKER) (test wfcg=110) 10.7 K/ L 3.5-10.5 RED BLOOD CELL COUNT (BEAKER) (test twrs=958) 2.67 M/ L 4.63-6.08 HEMOGLOBIN (BEAKER) (test koal=518) 8.4 GM/DL 13.7-17.5 HEMATOCRIT (BEAKER) (test supz=299) 25.5 % 40.1-51.0 MEAN CORPUSCULAR VOLUME (BEAKER) (test gnzh=022) 95.5 fL 79.0-92.2 MEAN CORPUSCULAR HEMOGLOBIN (BEAKER) (test 31.5 pg 25.7-32.2 ynzq=145) MEAN CORPUSCULAR HEMOGLOBIN CONC (BEAKER) (test 32.9 GM/DL 32.3-36.5 fwzd=222) RED CELL DISTRIBUTION WIDTH (BEAKER) (test 13.4 % 11.6-14.4 frjh=383) PLATELET COUNT (BEAKER) (test kwyr=884) 106 K/CU MM 150-450 MEAN PLATELET VOLUME (BEAKER) (test nkjs=567) 12.1 fL 9.4-12.4 NUCLEATED RED BLOOD CELLS (BEAKER) (test 0 /100 WBC 0-0 dlzf=516) NEUTROPHILS RELATIVE PERCENT (BEAKER) (test 70 % sbbi=899) LYMPHOCYTES RELATIVE PERCENT (BEAKER) (test 14 % lytv=643) MONOCYTES RELATIVE PERCENT (BEAKER) (test 14 % luhm=171) EOSINOPHILS RELATIVE PERCENT (BEAKER) (test 1 % swpv=103) BASOPHILS RELATIVE PERCENT (BEAKER) (test 0 % ycxn=708) NEUTROPHILS ABSOLUTE COUNT (BEAKER) (test 7.49 K/ L 1.78-5.38 hlea=923) LYMPHOCYTES ABSOLUTE COUNT (BEAKER) (test 1.52 K/ L 1.32-3.57 qord=227) MONOCYTES ABSOLUTE COUNT (BEAKER) (test 1.50 K/ L 0.30-0.82 shdw=084) EOSINOPHILS ABSOLUTE COUNT (BEAKER) (test 0.06 K/ L 0.04-0.54 shgi=441) BASOPHILS ABSOLUTE COUNT (BEAKER) (test 0.01 K/ L 0.01-0.08 sacj=105) IMMATURE GRANULOCYTES-RELATIVE PERCENT (BEAKER) 1 % 0-1 (test baxi=2107) POCT-GLUCOSE [id number] 21:26:00 Test Item Value Reference Range Comments POC-GLUCOSE METER (BEAKER) 259 mg/dL 70-110 : TESTED AT [address] (test dcxw=6070) [facility], [address]: Visual Developer/Automobile Leasing Supervisor [id number] for VITOR WATSON POCT-GLUCOSE [id number] 12:05:00 Test Item Value Reference Range Comments POC-GLUCOSE METER (BEAKER) 142 mg/dL 70-110 TESTED AT [address] (test kzqx=6544) [facility] [address] POCT-GLUCOSE [id number] 12:01:00 Test Item Value Reference Range Comments POC-GLUCOSE METER (BEAKER) 146 mg/dL 70-110 TESTED AT [address] (test zwnc=3174) [facility] [address] POCT-GLUCOSE [id number] 12:01:00 Test Item Value Reference Range Comments POC-GLUCOSE METER (BEAKER) 159 mg/dL 70-110 TESTED AT [address] (test hwcc=9088) [facility] [address] POCT-GLUCOSE [id number] 07:46:00 Test Item Value Reference Range Comments POC-GLUCOSE METER (BEAKER) 144 mg/dL 70-110 TESTED AT [address] (test gazy=6179) [facility] [address] POCT-GLUCOSE [id number] 07:46:00 Test Item Value Reference Range Comments POC-GLUCOSE METER (BEAKER) 139 mg/dL 70-110 TESTED AT [address] (test scvr=1169) [place] [id number] POCT-GLUCOSE [id number] 07:46:00 Test Item Value Reference Range Comments POC-GLUCOSE METER (BEAKER) 154 mg/dL 70-110 TESTED AT [address] (test hdun=5958) [facility] [address] RAD, CHEST, 1 VIEW, NON [id number] 06:51:00Reason for exam:->Post ACBShould this be performed at the bedside?->YesFINAL REPORT CLINICAL INDICATION: Postop Comparison: 07/21/2019 The cardiomediastinal contours are stable. The lung volumes remain low but are stable after extubation. Central pulmonary vascular congestion and bilateral parenchymal and left pleural opacities are similar to previous. There is no pneumothorax. Remaining support lines are stable. Signed: Carlos A Murillo MDReport Verified Date/Time: 07/22/2019 06:51:04 [id number] 04:53:00 Test Item Value Reference Range Comments PHOSPHORUS (BEAKER) (test bgob=377) 3.0 mg/dL 2.3-4.7 [id number] 04:53:00 Test Item Value Reference Range Comments MAGNESIUM (BEAKER) (test zwts=842) 1.5 mg/dL 1.6-2.6 BASIC METABOLIC [id number] 04:53:00 Test Item Value Reference Range Comments SODIUM (BEAKER) (test 135 meq/L 136-145 aowe=148) POTASSIUM (BEAKER) (test 4.2 meq/L 3.5-5.1 kviw=746) CHLORIDE (BEAKER) (test 110 meq/L 98-107 llnp=207) CO2 (BEAKER) (test 19 meq/L 22-29 hgpv=657) BLOOD UREA NITROGEN 19 mg/dL 7-21 (BEAKER) (test quzz=526) CREATININE (BEAKER) (test 0.87 mg/dL 0.57-1.25 nysy=371) GLUCOSE RANDOM (BEAKER) 155 mg/dL 70-105 (test ncab=177) CALCIUM (BEAKER) (test 8.0 mg/dL 8.4-10.2 wcbw=424) EGFR (BEAKER) (test 88 mL/min/1.73 sq m ESTIMATED GFR IS NOT fuzf=0812) ACCURATE CREATININE CLEARANCE IN PREDICTING GLOMERULAR FILTRATION RATE. ESTIMATED GFR IS NOT APPLICABLE FOR DIALYSIS PATIENTS. BLOOD GAS, [id number] 04:50:00 Test Item Value Reference Range Comments PH ARTERIAL (BEAKER) (test wtlr=125) 7.36 7.35-7.45 PCO2 ARTERIAL (BEAKER) (test uhup=530) 37 mmHg 35-45 PO2 ARTERIAL (BEAKER) (test gbdk=892) 117 mmHg 80-90 O2 SATURATION ARTERIAL (BEAKER) (test bpkl=957) 98.1 % 96.0-97.0 HCO3 ARTERIAL (BEAKER) (test ekfr=861) 21 mmol/L 21-29 BASE EXCESS ARTERIAL (BEAKER) (test gqld=168) -4.0 mmol/L -2.0-3.0 PATIENT TEMPERATURE (BEAKER) (test wwsu=1474) 37.4 C FIO2 (BEAKER) (test pixr=1923) 36.0 % LACTIC ACID, [id number] 04:46:00 Test Item Value Reference Range Comments LACTATE BLOOD ARTERIAL (2) (BEAKER) (test 1.2 mmol/L 0.5-2.2 bfkx=2750) CBC W/PLT COUNT & AUTO [id number] 04:43:00 Test Item Value Reference Range Comments WHITE BLOOD CELL COUNT (BEAKER) (test vlgx=134) 10.8 K/ L 3.5-10.5 RED BLOOD CELL COUNT (BEAKER) (test xdsl=233) 2.91 M/ L 4.63-6.08 HEMOGLOBIN (BEAKER) (test vkrl=674) 9.2 GM/DL 13.7-17.5 HEMATOCRIT (BEAKER) (test deou=125) 26.8 % 40.1-51.0 MEAN CORPUSCULAR VOLUME (BEAKER) (test sfoj=279) 92.1 fL 79.0-92.2 MEAN CORPUSCULAR HEMOGLOBIN (BEAKER) (test 31.6 pg 25.7-32.2 nzyi=714) MEAN CORPUSCULAR HEMOGLOBIN CONC (BEAKER) (test 34.3 GM/DL 32.3-36.5 zydx=506) RED CELL DISTRIBUTION WIDTH (BEAKER) (test 13.1 % 11.6-14.4 qfyi=048) PLATELET COUNT (BEAKER) (test bfae=621) 142 K/CU MM 150-450 MEAN PLATELET VOLUME (BEAKER) (test jgwx=286) 11.3 fL 9.4-12.4 NUCLEATED RED BLOOD CELLS (BEAKER) (test 0 /100 WBC 0-0 xyja=410) NEUTROPHILS RELATIVE PERCENT (BEAKER) (test 81 % grwo=341) LYMPHOCYTES RELATIVE PERCENT (BEAKER) (test 9 % hfmp=732) MONOCYTES RELATIVE PERCENT (BEAKER) (test 10 % ihpx=527) EOSINOPHILS RELATIVE PERCENT (BEAKER) (test 0 % xnnp=690) BASOPHILS RELATIVE PERCENT (BEAKER) (test 0 % oxze=535) NEUTROPHILS ABSOLUTE COUNT (BEAKER) (test 8.72 K/ L 1.78-5.38 amet=110) LYMPHOCYTES ABSOLUTE COUNT (BEAKER) (test 0.94 K/ L 1.32-3.57 iuur=485) MONOCYTES ABSOLUTE COUNT (BEAKER) (test 1.04 K/ L 0.30-0.82 cgfs=486) EOSINOPHILS ABSOLUTE COUNT (BEAKER) (test 0.00 K/ L 0.04-0.54 zeir=201) BASOPHILS ABSOLUTE COUNT (BEAKER) (test 0.02 K/ L 0.01-0.08 mjbq=874) IMMATURE GRANULOCYTES-RELATIVE PERCENT (BEAKER) 1 % 0-1 (test iwms=0834) OXYGEN SATURATION, [id number] 04:38:00 Test Item Value Reference Range Comments O2 SATURATION (MEASURED) (BEAKER) (test wzqj=6490) 68.2 % CALCIUM, [id number] 04:35:00 Test Item Value Reference Range Comments CALCIUM IONIZED (BEAKER) (test zabv=958) 1.14 mmol/L 1.12-1.27 PH, BLOOD (BEAKER) (test gwxh=4944) 7.37 POCT-GLUCOSE [id number] 04:10:00 Test Item Value Reference Range Comments POC-GLUCOSE METER (BEAKER) 145 mg/dL 70-110 TESTED AT [address] (test wapx=7397) [facility] [address] POCT-GLUCOSE [id number] 04:10:00 Test Item Value Reference Range Comments POC-GLUCOSE METER (BEAKER) 136 mg/dL 70-110 TESTED AT [address] (test vcam=0670) [facility] [address] POCT-GLUCOSE [id number] 23:42:00 Test Item Value Reference Range Comments POC-GLUCOSE METER (BEAKER) 133 mg/dL 70-110 TESTED AT [address] (test nhff=6205) [facility] [address] POCT-GLUCOSE [id number] 23:42:00 Test Item Value Reference Range Comments POC-GLUCOSE METER (BEAKER) 163 mg/dL 70-110 TESTED AT [address] (test lzae=1329) [facility] [address] POCT-GLUCOSE [id number] 23:42:00 Test Item Value Reference Range Comments POC-GLUCOSE METER (BEAKER) 170 mg/dL 70-110 TESTED AT [facility] [address] (test xzku=8620) [place] [address] LACTIC ACID, [id number] 21:25:00 Test Item Value Reference Range Comments LACTATE BLOOD ARTERIAL (2) (BEAKER) (test 1.3 mmol/L 0.5-2.2 iynq=4137) CALCIUM, [id number] 21:12:00 Test Item Value Reference Range Comments CALCIUM IONIZED (BEAKER) (test zour=145) 1.15 mmol/L 1.12-1.27 PH, BLOOD (BEAKER) (test zmwy=9570) 7.39 BLOOD GAS, [id number] 21:12:00 Test Item Value Reference Range Comments PH ARTERIAL (BEAKER) (test ltyy=151) 7.38 7.35-7.45 PCO2 ARTERIAL (BEAKER) (test sviz=490) 38 mmHg 35-45 PO2 ARTERIAL (BEAKER) (test nzbb=942) 123 mmHg 80-90 O2 SATURATION ARTERIAL (BEAKER) (test ulix=678) 98.3 % 96.0-97.0 HCO3 ARTERIAL (BEAKER) (test fyfr=504) 22 mmol/L 21-29 BASE EXCESS ARTERIAL (BEAKER) (test xwrd=518) -2.6 mmol/L -2.0-3.0 PATIENT TEMPERATURE (BEAKER) (test ctmq=2604) 37.7 C FIO2 (BEAKER) (test cxfd=0768) 4L GLUCOSE-STAT [id number] 21:12:00 Test Item Value Reference Range Comments GLUCOSE RANDOM (BEAKER) (test sybf=692) 162 mg/dL 70-110 HGB/HCT (H&H) - STAT [id number] 21:12:00 Test Item Value Reference Range Comments HEMOGLOBIN (BEAKER) (test vpts=844) 9.7 g/dL 13.0-16.8 HEMATOCRIT (BEAKER) (test dhpo=629) 29.0 % 40.0-50.0 OXYGEN SATURATION, [id number] 21:11:00 Test Item Value Reference Range Comments O2 SATURATION (MEASURED) (BEAKER) (test vrhw=2704) 65.2 % SODIUM NA-STAT [id number] 21:11:00 Test Item Value Reference Range Comments SODIUM (BEAKER) (test kvdp=833) 135 meq/L 135-148 POTASSIUM-STAT [id number] 21:11:00 Test Item Value Reference Range Comments POTASSIUM (BEAKER) (test zpjk=923) 3.8 meq/L 3.6-5.5 POCT-GLUCOSE [id number] 18:34:00 Test Item Value Reference Range Comments POC-GLUCOSE METER (BEAKER) 191 mg/dL 70-110 TESTED AT [address] (test hvmz=0973) [place] [id number] POCT-GLUCOSE [id number] 18:17:00 Test Item Value Reference Range Comments POC-GLUCOSE METER (BEAKER) 188 mg/dL 70-110 TESTED AT [address] (test vwpk=0596) [place] [id number] POCT-GLUCOSE [id number] 17:55:00 Test Item Value Reference Range Comments POC-GLUCOSE METER (BEAKER) 198 mg/dL 70-110 TESTED AT [address] (test lehn=7662) [place] [id number] BLOOD GAS, [id number] 15:28:00 Test Item Value Reference Range Comments PH ARTERIAL (BEAKER) (test ancb=380) 7.38 7.35-7.45 PCO2 ARTERIAL (BEAKER) (test djac=349) 36 mmHg 35-45 PO2 ARTERIAL (BEAKER) (test ujpa=073) 124 mmHg 80-90 O2 SATURATION ARTERIAL (BEAKER) (test tiru=015) 98.5 % 96.0-97.0 HCO3 ARTERIAL (BEAKER) (test ylkm=097) 21 mmol/L 21-29 BASE EXCESS ARTERIAL (BEAKER) (test jcvz=606) -4.0 mmol/L -2.0-3.0 PATIENT TEMPERATURE (BEAKER) (test eici=5057) 36.1 C FIO2 (BEAKER) (test sybv=5404) 40.0 % GLUCOSE-STAT [id number] 15:28:00 Test Item Value Reference Range Comments GLUCOSE RANDOM (BEAKER) (test dgag=544) 203 mg/dL 70-110 HGB/HCT (H&H) - STAT [id number] 15:28:00 Test Item Value Reference Range Comments HEMOGLOBIN (BEAKER) (test zslf=921) 9.5 g/dL 13.0-16.8 HEMATOCRIT (BEAKER) (test suxo=759) 28.0 % 40.0-50.0 SODIUM NA-STAT [id number] 15:27:00 Test Item Value Reference Range Comments SODIUM (BEAKER) (test vglz=142) 135 meq/L 135-148 POTASSIUM-STAT [id number] 15:27:00 Test Item Value Reference Range Comments POTASSIUM (BEAKER) (test ufld=277) 3.5 meq/L 3.6-5.5 POCT-GLUCOSE [id number] 14:10:00 Test Item Value Reference Range Comments POC-GLUCOSE METER (BEAKER) 231 mg/dL 70-110 TESTED AT [address] (test dcyx=8142) [facility] [address] RAD, CHEST, 1 VIEW, NON [id number] 13:24:00Reason for exam:->Post ACBShould this be performed at the bedside?->YesFINAL REPORT CLINICAL HISTORY: Post ACB TECHNIQUE: 1 view of the chest. COMPARISON : 07/20/2019 IMPRESSION: The patient is status post median sternotomy with an endotracheal tubeat the clavicles, a right [place] catheter with its tip directed in the pulmonary outflow tract, anasogastric tube in the stomach, and left-sided chest tubes. There is no pneumothorax. There is new pulmonary vascular congestion. There is new left lower lung consolidation. Pleural effusions cannot be excluded. A pacemaker is again seen. Signed: Laura Mercer MDReport Verified Date/Time: 07/21/201913:24:31 Reading Location: [facility] Radiology Reading Room [id number] 13:15:00 Test Item Value Reference Range Comments MAGNESIUM (BEAKER) (test 1.4 mg/dL 1.6-2.6 Specimen slightly hemolyzed fkss=746) [id number] 13:15:00 Test Item Value Reference Range Comments PHOSPHORUS (BEAKER) (test 2.2 mg/dL 2.3-4.7 Specimen slightly hemolyzed xhpc=472) [id number] 13:15:00 Test Item Value Reference Range Comments POTASSIUM (BEAKER) (test 3.9 meq/L 3.5-5.1 Specimen slightly hemolyzed yvlq=903) [id number] 13:15:00 Test Item Value Reference Range Comments GLUCOSE RANDOM (BEAKER) (test mmzm=657) 233 mg/dL 70-105 BASIC METABOLIC [id number] 13:15:00 Test Item Value Reference Range Comments SODIUM (BEAKER) (test 135 meq/L 136-145 axkf=680) POTASSIUM (BEAKER) (test 3.9 meq/L 3.5-5.1 Specimen slightly odgu=961) hemolyzed CHLORIDE (BEAKER) (test 108 meq/L 98-107 wegg=715) CO2 (BEAKER) (test 21 meq/L 22-29 xucs=681) BLOOD UREA NITROGEN 23 mg/dL 7-21 (BEAKER) (test lftw=419) CREATININE (BEAKER) (test 1.00 mg/dL 0.57-1.25 Specimen slightly math=825) hemolyzed GLUCOSE RANDOM (BEAKER) 233 mg/dL 70-105 (test akrp=392) CALCIUM (BEAKER) (test 8.2 mg/dL 8.4-10.2 vehe=858) EGFR (BEAKER) (test 75 mL/min/1.73 sq m ESTIMATED GFR IS NOT jwqz=5264) ACCURATE CREATININE CLEARANCE IN PREDICTING GLOMERULAR FILTRATION RATE. ESTIMATED GFR IS NOT APPLICABLE FOR DIALYSIS PATIENTS. LACTIC ACID, [id number] 13:12:00 Test Item Value Reference Range Comments LACTATE BLOOD ARTERIAL (2) 1.7 mmol/L 0.5-2.2 Specimen slightly hemolyzed (BEAKER) (test khds=7920) PROTHROMBIN [id number] 13:04:00 Test Item Value Reference Range Comments PROTIME (BEAKER) (test xptv=215) 17.2 seconds 11.9-14.2 INR (BEAKER) (test mmnb=828) 1.5 <=5.9 Effective 02/26/2019: PT Reference Range ChangeNew: 11.9-14.2 Previous: 11.7- 14.7RECOMMENDED COUMADIN/WARFARIN INR THERAPY RANGESSTANDARD DOSE: 2.0-3.0 Includes: PROPHYLAXIS for venous thrombosis, systemic embolization; TREATMENT for venous thrombosis and/or pulmonary embolus.HIGH RISK: Target INR is2.5-3.5 for patients wiht mechanical heart valves.[id number] 13:04:00 Test Item Value Reference Range Comments FIBRINOGEN LEVEL (BEAKER) (test yhgc=094) 257 mg/dl 225-434 [id number] 13:04:00 Test Item Value Reference Range Comments PARTIAL THROMBOPLASTIN TIME (BEAKER) (test 33.1 seconds 22.5-36.0 ylwm=162) [id number] 12:57:00 Test Item Value Reference Range Comments ACTIVATED CLOTTING TIME 109 sec Reference Range: 74-137 (BEAKER) (test tlso=284) seconds, Baseline/TESTED AT [place] [address] [id number] 12:57:00 Test Item Value Reference Range Comments ACTIVATED CLOTTING TIME 532 sec Reference Range: 74-137 (BEAKER) (test jaoq=766) seconds, Baseline/TESTED AT [place] [address] [id number] 12:57:00 Test Item Value Reference Range Comments ACTIVATED CLOTTING TIME 483 sec Reference Range: 74-137 (BEAKER) (test oipv=759) seconds, Baseline/TESTED AT [place] [address] [id number] 12:57:00 Test Item Value Reference Range Comments ACTIVATED CLOTTING TIME > sec Reference Range: 74-137 (BEAKER) (test nfgo=271) seconds, Baseline/OUTSIDE MEASURING RANGETESTED AT [place] [address] CALCIUM, [id number] 12:53:00 Test Item Value Reference Range Comments CALCIUM IONIZED (BEAKER) (test wwom=441) 1.11 mmol/L 1.12-1.27 PH, BLOOD (BEAKER) (test slap=8998) 7.32 BLOOD GAS, [id number] 12:53:00 Test Item Value Reference Range Comments PH ARTERIAL (BEAKER) (test crol=163) 7.34 7.35-7.45 PCO2 ARTERIAL (BEAKER) (test lyah=531) 42 mmHg 35-45 PO2 ARTERIAL (BEAKER) (test mqxx=383) 157 mmHg 80-90 O2 SATURATION ARTERIAL (BEAKER) (test ozxb=439) 98.9 % 96.0-97.0 HCO3 ARTERIAL (BEAKER) (test ykcq=660) 22 mmol/L 21-29 BASE EXCESS ARTERIAL (BEAKER) (test wvsm=210) -3.6 mmol/L -2.0-3.0 PATIENT TEMPERATURE (BEAKER) (test dqip=0218) 35.9 C FIO2 (BEAKER) (test hona=3788) 60.0 % CBC W/PLT COUNT & AUTO [id number] 12:51:00 Test Item Value Reference Range Comments WHITE BLOOD CELL COUNT (BEAKER) (test pohu=957) 10.0 K/ L 3.5-10.5 RED BLOOD CELL COUNT (BEAKER) (test poep=819) 3.08 M/ L 4.63-6.08 HEMOGLOBIN (BEAKER) (test vvhl=465) 9.9 GM/DL 13.7-17.5 HEMATOCRIT (BEAKER) (test iefv=677) 28.5 % 40.1-51.0 MEAN CORPUSCULAR VOLUME (BEAKER) (test dknk=521) 92.5 fL 79.0-92.2 MEAN CORPUSCULAR HEMOGLOBIN (BEAKER) (test 32.1 pg 25.7-32.2 puzl=833) MEAN CORPUSCULAR HEMOGLOBIN CONC (BEAKER) (test 34.7 GM/DL 32.3-36.5 qcux=718) RED CELL DISTRIBUTION WIDTH (BEAKER) (test 13.0 % 11.6-14.4 thln=211) PLATELET COUNT (BEAKER) (test ifum=722) 121 K/CU MM 150-450 MEAN PLATELET VOLUME (BEAKER) (test wfcw=705) 11.1 fL 9.4-12.4 NUCLEATED RED BLOOD CELLS (BEAKER) (test 0 /100 WBC 0-0 gvlz=689) NEUTROPHILS RELATIVE PERCENT (BEAKER) (test 74 % ofbf=562) LYMPHOCYTES RELATIVE PERCENT (BEAKER) (test 16 % qhne=580) MONOCYTES RELATIVE PERCENT (BEAKER) (test 9 % lyyr=488) EOSINOPHILS RELATIVE PERCENT (BEAKER) (test 1 % fzdq=316) BASOPHILS RELATIVE PERCENT (BEAKER) (test 0 % xphm=425) NEUTROPHILS ABSOLUTE COUNT (BEAKER) (test 7.41 K/ L 1.78-5.38 xafs=303) LYMPHOCYTES ABSOLUTE COUNT (BEAKER) (test 1.56 K/ L 1.32-3.57 cexc=915) MONOCYTES ABSOLUTE COUNT (BEAKER) (test 0.85 K/ L 0.30-0.82 oohn=318) EOSINOPHILS ABSOLUTE COUNT (BEAKER) (test 0.11 K/ L 0.04-0.54 jlbo=634) BASOPHILS ABSOLUTE COUNT (BEAKER) (test 0.02 K/ L 0.01-0.08 eayf=310) IMMATURE GRANULOCYTES-RELATIVE PERCENT (BEAKER) 1 % 0-1 (test gfqx=5277) OXYGEN SATURATION, [id number] 12:50:00 Test Item Value Reference Range Comments O2 SATURATION (MEASURED) (BEAKER) (test olcs=0595) 83.0 % BLOOD GAS, [id number] 10:53:00 Test Item Value Reference Range Comments PH ARTERIAL (BEAKER) (test qnzo=874) 7.42 7.35-7.45 PCO2 ARTERIAL (BEAKER) (test emqw=715) 34 mmHg 35-45 PO2 ARTERIAL (BEAKER) (test xjyp=682) 244 mmHg 80-90 O2 SATURATION ARTERIAL (BEAKER) (test iqec=622) 99.6 % 96.0-97.0 HCO3 ARTERIAL (BEAKER) (test czom=573) 22 mmol/L 21-29 BASE EXCESS ARTERIAL (BEAKER) (test wbck=201) -2.5 mmol/L -2.0-3.0 PATIENT TEMPERATURE (BEAKER) (test avgj=6583) 36.4 C FIO2 (BEAKER) (test txno=0720) 100.0 % SODIUM NA-STAT [id number] 10:53:00 Test Item Value Reference Range Comments SODIUM (BEAKER) (test wrng=176) 130 meq/L 135-148 GLUCOSE-STAT [id number] 10:53:00 Test Item Value Reference Range Comments GLUCOSE RANDOM (BEAKER) (test iara=493) 248 mg/dL 70-110 HGB/HCT (H&H) - STAT [id number] 10:53:00 Test Item Value Reference Range Comments HEMOGLOBIN (BEAKER) (test nviq=719) 9.0 g/dL 13.0-16.8 HEMATOCRIT (BEAKER) (test lruc=459) 26.0 % 40.0-50.0 POTASSIUM-STAT [id number] 10:52:00 Test Item Value Reference Range Comments POTASSIUM (BEAKER) (test ggbz=000) 4.3 meq/L 3.6-5.5 CALCIUM, [id number] 10:51:00 Test Item Value Reference Range Comments CALCIUM IONIZED (BEAKER) (test vxzn=547) 1.24 mmol/L 1.12-1.27 PH, BLOOD (BEAKER) (test fmom=1416) 7.42 BLOOD GAS, [id number] 10:03:00 Test Item Value Reference Range Comments PH ARTERIAL (BEAKER) (test ltjy=732) 7.40 7.35-7.45 PCO2 ARTERIAL (BEAKER) (test wwff=970) 37 mmHg 35-45 PO2 ARTERIAL (BEAKER) (test zcnr=015) 249 mmHg 80-90 O2 SATURATION ARTERIAL (BEAKER) (test dxwf=672) 99.6 % 96.0-97.0 HCO3 ARTERIAL (BEAKER) (test wptr=324) 24 mmol/L 21-29 BASE EXCESS ARTERIAL (BEAKER) (test cszc=973) -2.2 mmol/L -2.0-3.0 PATIENT TEMPERATURE (BEAKER) (test itwe=1806) 32.0 C FIO2 (BEAKER) (test vpkw=0237) 70.0 % SODIUM NA-STAT [id number] 10:03:00 Test Item Value Reference Range Comments SODIUM (BEAKER) (test qznz=470) 132 meq/L 135-148 GLUCOSE-STAT [id number] 10:03:00 Test Item Value Reference Range Comments GLUCOSE RANDOM (BEAKER) (test ogec=620) 239 mg/dL 70-110 HGB/HCT (H&H) - STAT [id number] 10:03:00 Test Item Value Reference Range Comments HEMOGLOBIN (BEAKER) (test zrhi=854) 8.5 g/dL 13.0-16.8 HEMATOCRIT (BEAKER) (test ydnu=438) 25.0 % 40.0-50.0 POTASSIUM-STAT [id number] 10:02:00 Test Item Value Reference Range Comments POTASSIUM (BEAKER) (test efbf=735) 5.5 meq/L 3.6-5.5 HGB/HCT (H&H) - STAT [id number] 09:38:00 Test Item Value Reference Range Comments HEMOGLOBIN (BEAKER) (test tada=606) 8.4 g/dL 13.0-16.8 HEMATOCRIT (BEAKER) (test jagl=159) 25.0 % 40.0-50.0 POTASSIUM-STAT [id number] 09:37:00 Test Item Value Reference Range Comments POTASSIUM (BEAKER) (test cgrh=257) 4.9 meq/L 3.6-5.5 BLOOD GAS, [id number] 09:37:00 Test Item Value Reference Range Comments PH ARTERIAL (BEAKER) (test oezf=174) 7.30 7.35-7.45 PCO2 ARTERIAL (BEAKER) (test pyax=826) 39 mmHg 35-45 PO2 ARTERIAL (BEAKER) (test msss=474) 448 mmHg 80-90 O2 SATURATION ARTERIAL (BEAKER) (test uydq=035) 99.8 % 96.0-97.0 HCO3 ARTERIAL (BEAKER) (test tuyt=972) 19 mmol/L 21-29 BASE EXCESS ARTERIAL (BEAKER) (test oasc=022) -7.2 mmol/L -2.0-3.0 PATIENT TEMPERATURE (BEAKER) (test siea=7529) 34.6 C FIO2 (BEAKER) (test jznv=1558) 80.0 % GLUCOSE-STAT [id number] 09:37:00 Test Item Value Reference Range Comments GLUCOSE RANDOM (BEAKER) (test gput=200) 258 mg/dL 70-110 SODIUM NA-STAT [id number] 09:37:00 Test Item Value Reference Range Comments SODIUM (BEAKER) (test lvft=506) 132 meq/L 135-148 GLUCOSE-STAT [id number] 09:16:00 Test Item Value Reference Range Comments GLUCOSE RANDOM (BEAKER) (test qfbw=236) 179 mg/dL 70-110 POTASSIUM-STAT [id number] 08:35:00 Test Item Value Reference Range Comments POTASSIUM (BEAKER) (test ydbi=571) 4.2 meq/L 3.6-5.5 BLOOD GAS, [id number] 08:35:00 Test Item Value Reference Range Comments PH ARTERIAL (BEAKER) (test duya=905) 7.38 7.35-7.45 PCO2 ARTERIAL (BEAKER) (test owzr=915) 34 mmHg 35-45 PO2 ARTERIAL (BEAKER) (test tcqd=542) 345 mmHg 80-90 O2 SATURATION ARTERIAL (BEAKER) (test drab=574) 99.8 % 96.0-97.0 HCO3 ARTERIAL (BEAKER) (test bslf=455) 20 mmol/L 21-29 BASE EXCESS ARTERIAL (BEAKER) (test ebpk=541) -4.6 mmol/L -2.0-3.0 PATIENT TEMPERATURE (BEAKER) (test xhwn=0593) 35.6 C FIO2 (BEAKER) (test jpnk=0465) 100.0 % SODIUM NA-STAT [id number] 08:35:00 Test Item Value Reference Range Comments SODIUM (BEAKER) (test ecud=431) 134 meq/L 135-148 GLUCOSE-STAT [id number] 08:35:00 Test Item Value Reference Range Comments GLUCOSE RANDOM (BEAKER) (test prxi=480) 256 mg/dL 70-110 HGB/HCT (H&H) - STAT [id number] 08:35:00 Test Item Value Reference Range Comments HEMOGLOBIN (BEAKER) (test jfwq=091) 12.5 g/dL 13.0-16.8 HEMATOCRIT (BEAKER) (test gpvp=956) 37.0 % 40.0-50.0 CALCIUM, [id number] 08:34:00 Test Item Value Reference Range Comments CALCIUM IONIZED (BEAKER) (test opbn=064) 1.22 mmol/L 1.12-1.27 PH, BLOOD (BEAKER) (test lqzx=7148) 7.36 POCT-GLUCOSE [id number] 05:41:00 Test Item Value Reference Range Comments POC-GLUCOSE METER (BEAKER) 283 mg/dL 70-110 TESTED AT [facility] [address] [facility] (test pgrm=1859) [facility] [address] [id number] 05:31:00 Test Item Value Reference Range Comments MAGNESIUM (BEAKER) (test 1.7 mg/dL 1.6-2.6 Specimen slightly hemolyzed lswp=161) BASIC METABOLIC [id number] 05:31:00 Test Item Value Reference Range Comments SODIUM (BEAKER) (test 133 meq/L 136-145 zbwg=586) POTASSIUM (BEAKER) (test 4.2 meq/L 3.5-5.1 Specimen slightly wwxt=362) hemolyzed CHLORIDE (BEAKER) (test 106 meq/L 98-107 nxni=450) CO2 (BEAKER) (test 20 meq/L 22-29 mhwm=363) BLOOD UREA NITROGEN 27 mg/dL 7-21 (BEAKER) (test hwho=356) CREATININE (BEAKER) (test 1.19 mg/dL 0.57-1.25 Specimen slightly bbuj=313) hemolyzed GLUCOSE RANDOM (BEAKER) 285 mg/dL 70-105 (test jnov=575) CALCIUM (BEAKER) (test 8.8 mg/dL 8.4-10.2 uzqj=707) EGFR (BEAKER) (test 61 mL/min/1.73 sq m ESTIMATED GFR IS NOT ctdj=4469) ACCURATE CREATININE CLEARANCE IN PREDICTING GLOMERULAR FILTRATION RATE. ESTIMATED GFR IS NOT APPLICABLE FOR DIALYSIS PATIENTS. CBC W/PLT COUNT & AUTO [id number] 05:14:00 Test Item Value Reference Range Comments WHITE BLOOD CELL COUNT (BEAKER) (test ahux=867) 5.8 K/ L 3.5-10.5 RED BLOOD CELL COUNT (BEAKER) (test rnoa=555) 3.82 M/ L 4.63-6.08 HEMOGLOBIN (BEAKER) (test gtva=262) 12.0 GM/DL 13.7-17.5 HEMATOCRIT (BEAKER) (test gmal=139) 35.7 % 40.1-51.0 MEAN CORPUSCULAR VOLUME (BEAKER) (test gnxs=418) 93.5 fL 79.0-92.2 MEAN CORPUSCULAR HEMOGLOBIN (BEAKER) (test 31.4 pg 25.7-32.2 dsiq=815) MEAN CORPUSCULAR HEMOGLOBIN CONC (BEAKER) (test 33.6 GM/DL 32.3-36.5 bwxu=755) RED CELL DISTRIBUTION WIDTH (BEAKER) (test 12.9 % 11.6-14.4 glmr=887) PLATELET COUNT (BEAKER) (test ozbu=260) 171 K/CU MM 150-450 MEAN PLATELET VOLUME (BEAKER) (test hzei=456) 11.8 fL 9.4-12.4 NUCLEATED RED BLOOD CELLS (BEAKER) (test 0 /100 WBC 0-0 vpax=919) NEUTROPHILS RELATIVE PERCENT (BEAKER) (test 48 % ytbr=184) LYMPHOCYTES RELATIVE PERCENT (BEAKER) (test 39 % nwpa=491) MONOCYTES RELATIVE PERCENT (BEAKER) (test 10 % btkn=724) EOSINOPHILS RELATIVE PERCENT (BEAKER) (test 3 % swbn=359) BASOPHILS RELATIVE PERCENT (BEAKER) (test 0 % veno=691) NEUTROPHILS ABSOLUTE COUNT (BEAKER) (test 2.75 K/ L 1.78-5.38 haxy=042) LYMPHOCYTES ABSOLUTE COUNT (BEAKER) (test 2.25 K/ L 1.32-3.57 hgyj=288) MONOCYTES ABSOLUTE COUNT (BEAKER) (test 0.57 K/ L 0.30-0.82 roix=525) EOSINOPHILS ABSOLUTE COUNT (BEAKER) (test 0.17 K/ L 0.04-0.54 zrdl=817) BASOPHILS ABSOLUTE COUNT (BEAKER) (test 0.02 K/ L 0.01-0.08 dnbr=122) IMMATURE GRANULOCYTES-RELATIVE PERCENT (BEAKER) 0 % 0-1 (test wzpx=4980) RAD, CHEST, 1 VIEW, NON [id number] 02:56:00Reason for exam:->pre opShould this be performed at the bedside?->YesFINAL REPORT History: Preoperative evaluation, surgery unspecified. Comparison: None. Findings: A single view of the chest is submitted. The cardiac silhouette is prominent in size but magnified by low lung volumes and portable technique. A right subclavian, single-lead ICD is in place. There is no focal consolidation, pneumothorax, large pleural effusion or evidence of overtpulmonary edema. There is no acute bony abnormality. Signed: Carlos A Murilloeport Verified Date/Time: 07/21/2019 02:56:45 POCT-GLUCOSE [id number] 22:59:00 Test Item Value Reference Range Comments POC-GLUCOSE METER (BEAKER) 234 mg/dL 70-110 TESTED AT [address] (test oxqh=1596) [place] [id number] POCT-GLUCOSE [id number] 21:29:00 Test Item Value Reference Range Comments POC-GLUCOSE METER (BEAKER) 312 mg/dL 70-110 TESTED AT [address] (test dgdy=9027) [place] [id number] POCT-GLUCOSE [id number] 18:52:00 Test Item Value Reference Range Comments POC-GLUCOSE METER (BEAKER) 331 mg/dL 70-110 TESTED AT [address] (test noap=3640) [place] [address] POCT-GLUCOSE [id number] 13:12:00 Test Item Value Reference Range Comments POC-GLUCOSE METER (BEAKER) 260 mg/dL 70-110 TESTED AT [address] (test nmgd=5151) [place] [address] HEMOGLOBIN [id number] 09:23:00 Test Item Value Reference Range Comments HEMOGLOBIN A1C (BEAKER) (test rras=018) 9.2 % 4.3-6.1 POCT-GLUCOSE [id number] 09:07:00 Test Item Value Reference Range Comments POC-GLUCOSE METER (BEAKER) 199 mg/dL 70-110 TESTED AT [address] (test xean=5336) [place] [address] [id number] 05:27:00 Test Item Value Reference Range Comments MAGNESIUM (BEAKER) (test gyww=645) 1.9 mg/dL 1.6-2.6 COMPREHENSIVE METABOLIC [id number] 05:27:00 Test Item Value Reference Range Comments TOTAL PROTEIN (BEAKER) 7.2 gm/dL 6.0-8.3 (test ckxb=973) ALBUMIN (BEAKER) (test 3.8 g/dL 3.5-5.0 qblr=9644) ALKALINE PHOSPHATASE 40 U/L 40-150 (BEAKER) (test sdaf=332) BILIRUBIN TOTAL (BEAKER) 0.4 mg/dL 0.2-1.2 (test xajo=645) SODIUM (BEAKER) (test 134 meq/L 136-145 yqug=413) POTASSIUM (BEAKER) (test 4.3 meq/L 3.5-5.1 egiw=035) CHLORIDE (BEAKER) (test 107 meq/L 98-107 nbhd=016) CO2 (BEAKER) (test 23 meq/L 22-29 mmxf=037) BLOOD UREA NITROGEN 25 mg/dL 7-21 (BEAKER) (test ufvt=425) CREATININE (BEAKER) (test 1.13 mg/dL 0.57-1.25 gqxg=476) GLUCOSE RANDOM (BEAKER) 244 mg/dL 70-105 (test lekh=832) CALCIUM (BEAKER) (test 9.2 mg/dL 8.4-10.2 atzg=466) AST (SGOT) (BEAKER) (test 26 U/L 5-34 ulaa=450) ALT (SGPT) (BEAKER) (test 31 U/L 6-55 zpee=363) EGFR (BEAKER) (test 65 mL/min/1.73 sq m ESTIMATED GFR IS NOT lxlc=1617) ACCURATE CREATININE CLEARANCE IN PREDICTING GLOMERULAR FILTRATION RATE. ESTIMATED GFR IS NOT APPLICABLE FOR DIALYSIS PATIENTS. [id number] 05:10:00 Test Item Value Reference Range Comments PARTIAL THROMBOPLASTIN TIME (BEAKER) (test 34.8 seconds 22.5-36.0 vamy=855) PROTHROMBIN [id number] 05:09:00 Test Item Value Reference Range Comments PROTIME (BEAKER) (test oiwh=585) 14.1 seconds 11.9-14.2 INR (BEAKER) (test kbfv=604) 1.2 <=5.9 Effective 02/26/2019: PT Reference Range ChangeNew: 11.9-14.2 Previous: 11.7- 14.7RECOMMENDED COUMADIN/WARFARIN INR THERAPY RANGESSTANDARD DOSE: 2.0-3.0 Includes: PROPHYLAXIS for venous thrombosis, systemic embolization; TREATMENT for venous thrombosis and/or pulmonary embolus.HIGH RISK: Target INR is2.5-3.5 for patients wiht mechanical heart valves.CBC W/PLT COUNT & AUTO [id number] 04:57:00 Test Item Value Reference Range Comments WHITE BLOOD CELL COUNT (BEAKER) (test jdab=799) 7.1 K/ L 3.5-10.5 RED BLOOD CELL COUNT (BEAKER) (test wqkd=416) 3.90 M/ L 4.63-6.08 HEMOGLOBIN (BEAKER) (test poik=476) 12.0 GM/DL 13.7-17.5 HEMATOCRIT (BEAKER) (test nzzw=489) 36.0 % 40.1-51.0 MEAN CORPUSCULAR VOLUME (BEAKER) (test lspd=432) 92.3 fL 79.0-92.2 MEAN CORPUSCULAR HEMOGLOBIN (BEAKER) (test 30.8 pg 25.7-32.2 mdmj=724) MEAN CORPUSCULAR HEMOGLOBIN CONC (BEAKER) (test 33.3 GM/DL 32.3-36.5 lvol=280) RED CELL DISTRIBUTION WIDTH (BEAKER) (test 13.0 % 11.6-14.4 mtmi=461) PLATELET COUNT (BEAKER) (test vwxs=192) 177 K/CU MM 150-450 MEAN PLATELET VOLUME (BEAKER) (test vdxg=631) 11.6 fL 9.4-12.4 NUCLEATED RED BLOOD CELLS (BEAKER) (test 0 /100 WBC 0-0 pmpp=643) NEUTROPHILS RELATIVE PERCENT (BEAKER) (test 55 % nesw=798) LYMPHOCYTES RELATIVE PERCENT (BEAKER) (test 33 % zwsp=281) MONOCYTES RELATIVE PERCENT (BEAKER) (test 9 % ckig=979) EOSINOPHILS RELATIVE PERCENT (BEAKER) (test 3 % pjcd=960) BASOPHILS RELATIVE PERCENT (BEAKER) (test 0 % okgx=189) NEUTROPHILS ABSOLUTE COUNT (BEAKER) (test 3.91 K/ L 1.78-5.38 melk=064) LYMPHOCYTES ABSOLUTE COUNT (BEAKER) (test 2.34 K/ L 1.32-3.57 pggm=019) MONOCYTES ABSOLUTE COUNT (BEAKER) (test 0.61 K/ L 0.30-0.82 vkxb=529) EOSINOPHILS ABSOLUTE COUNT (BEAKER) (test 0.18 K/ L 0.04-0.54 zzzb=742) BASOPHILS ABSOLUTE COUNT (BEAKER) (test 0.03 K/ L 0.01-0.08 gcvv=380) IMMATURE GRANULOCYTES-RELATIVE PERCENT (BEAKER) 0 % 0-1 (test awdw=6995) POCT-GLUCOSE [id number] 21:25:00 Test Item Value Reference Range Comments POC-GLUCOSE METER (BEAKER) 232 mg/dL 70-110 TESTED AT [facility] [address] [facility] (test tqgh=1959) [facility] [address] POCT-GLUCOSE [id number] 18:18:00 Test Item Value Reference Range Comments POC-GLUCOSE METER (BEAKER) 165 mg/dL 70-110 TESTED AT [facility] [address] [facility] (test lkgo=1791) [facility] [address] POCT-GLUCOSE [id number] 12:00:00 Test Item Value Reference Range Comments POC-GLUCOSE METER (BEAKER) 301 mg/dL 70-110 TESTED AT [address] (test surk=9240) [facility] [address] POCT-GLUCOSE [id number] 08:49:00 Test Item Value Reference Range Comments POC-GLUCOSE METER (BEAKER) 233 mg/dL 70-110 TESTED AT [address] (test lmge=5431) [facility] [address] [id number] 06:17:00 Test Item Value Reference Range Comments MAGNESIUM (BEAKER) (test ethz=917) 1.6 mg/dL 1.6-2.6 BASIC METABOLIC [id number] 06:17:00 Test Item Value Reference Range Comments SODIUM (BEAKER) (test 135 meq/L 136-145 ejuk=709) POTASSIUM (BEAKER) (test 4.4 meq/L 3.5-5.1 uigb=606) CHLORIDE (BEAKER) (test 107 meq/L 98-107 slcf=617) CO2 (BEAKER) (test 20 meq/L 22-29 hmom=036) BLOOD UREA NITROGEN 29 mg/dL 7-21 (BEAKER) (test juum=396) CREATININE (BEAKER) (test 1.17 mg/dL 0.57-1.25 gmrj=785) GLUCOSE RANDOM (BEAKER) 245 mg/dL 70-105 (test dxax=276) CALCIUM (BEAKER) (test 9.0 mg/dL 8.4-10.2 fecw=077) EGFR (BEAKER) (test 63 mL/min/1.73 sq m ESTIMATED GFR IS NOT bcjq=8980) ACCURATE CREATININE CLEARANCE IN PREDICTING GLOMERULAR FILTRATION RATE. ESTIMATED GFR IS NOT APPLICABLE FOR DIALYSIS PATIENTS. CBC W/PLT COUNT & AUTO [id number] 05:38:00 Test Item Value Reference Range Comments WHITE BLOOD CELL COUNT (BEAKER) (test wwak=791) 7.1 K/ L 3.5-10.5 RED BLOOD CELL COUNT (BEAKER) (test npwy=880) 4.09 M/ L 4.63-6.08 HEMOGLOBIN (BEAKER) (test mfmk=197) 12.7 GM/DL 13.7-17.5 HEMATOCRIT (BEAKER) (test onil=830) 37.8 % 40.1-51.0 MEAN CORPUSCULAR VOLUME (BEAKER) (test pjok=316) 92.4 fL 79.0-92.2 MEAN CORPUSCULAR HEMOGLOBIN (BEAKER) (test 31.1 pg 25.7-32.2 sebz=654) MEAN CORPUSCULAR HEMOGLOBIN CONC (BEAKER) (test 33.6 GM/DL 32.3-36.5 uigg=190) RED CELL DISTRIBUTION WIDTH (BEAKER) (test 13.0 % 11.6-14.4 rcxu=101) PLATELET COUNT (BEAKER) (test iqol=393) 195 K/CU MM 150-450 MEAN PLATELET VOLUME (BEAKER) (test tmrm=662) 11.7 fL 9.4-12.4 NUCLEATED RED BLOOD CELLS (BEAKER) (test 0 /100 WBC 0-0 yxsn=535) NEUTROPHILS RELATIVE PERCENT (BEAKER) (test 47 % rzah=711) LYMPHOCYTES RELATIVE PERCENT (BEAKER) (test 40 % uxnf=337) MONOCYTES RELATIVE PERCENT (BEAKER) (test 9 % apzc=522) EOSINOPHILS RELATIVE PERCENT (BEAKER) (test 3 % mjel=831) BASOPHILS RELATIVE PERCENT (BEAKER) (test 0 % nwjj=561) NEUTROPHILS ABSOLUTE COUNT (BEAKER) (test 3.36 K/ L 1.78-5.38 mcsb=753) LYMPHOCYTES ABSOLUTE COUNT (BEAKER) (test 2.86 K/ L 1.32-3.57 rxpn=543) MONOCYTES ABSOLUTE COUNT (BEAKER) (test 0.66 K/ L 0.30-0.82 wmab=516) EOSINOPHILS ABSOLUTE COUNT (BEAKER) (test 0.21 K/ L 0.04-0.54 yjyy=345) BASOPHILS ABSOLUTE COUNT (BEAKER) (test 0.03 K/ L 0.01-0.08 eloh=403) IMMATURE GRANULOCYTES-RELATIVE PERCENT (BEAKER) 0 % 0-1 (test zsbu=2535) POCT-GLUCOSE [id number] 21:36:00 Test Item Value Reference Range Comments POC-GLUCOSE METER (BEAKER) 227 mg/dL 70-110 TESTED AT [address] (test pptg=3097) [facility] [address] POCT-GLUCOSE [id number] 18:27:00 Test Item Value Reference Range Comments POC-GLUCOSE METER (BEAKER) 377 mg/dL 70-110 TESTED AT [address] (test fxeh=3119) [facility] [address] POCT-GLUCOSE [id number] 16:56:00 Test Item Value Reference Range Comments POC-GLUCOSE METER (BEAKER) 344 mg/dL 70-110 TESTED AT [address] (test fjwk=1498) [facility] [address] POCT-GLUCOSE [id number] 13:01:00 Test Item Value Reference Range Comments POC-GLUCOSE METER (BEAKER) 206 mg/dL 70-110 TESTED AT [address] (test rzdt=5939) [facility] [address] HEMOGLOBIN [id number] 11:33:00 Test Item Value Reference Range Comments HEMOGLOBIN A1C (BEAKER) (test nbxg=321) 9.0 % 4.3-6.1 [id number] 07:15:00 Test Item Value Reference Range Comments PHOSPHORUS (BEAKER) (test dsdb=641) 2.9 mg/dL 2.3-4.7 [id number] 07:15:00 Test Item Value Reference Range Comments MAGNESIUM (BEAKER) (test omsw=061) 1.4 mg/dL 1.6-2.6 BASIC METABOLIC [id number] 07:15:00 Test Item Value Reference Range Comments SODIUM (BEAKER) (test 133 meq/L 136-145 iqfe=031) POTASSIUM (BEAKER) (test 4.2 meq/L 3.5-5.1 sclw=066) CHLORIDE (BEAKER) (test 103 meq/L 98-107 mseq=202) CO2 (BEAKER) (test 23 meq/L 22-29 huuj=655) BLOOD UREA NITROGEN 29 mg/dL 7-21 (BEAKER) (test xvrw=551) CREATININE (BEAKER) (test 1.31 mg/dL 0.57-1.25 zfyn=908) GLUCOSE RANDOM (BEAKER) 315 mg/dL 70-105 (test vvom=784) CALCIUM (BEAKER) (test 8.8 mg/dL 8.4-10.2 bdzo=238) EGFR (BEAKER) (test 55 mL/min/1.73 sq m ESTIMATED GFR IS NOT lijj=7286) ACCURATE CREATININE CLEARANCE IN PREDICTING GLOMERULAR FILTRATION RATE. ESTIMATED GFR IS NOT APPLICABLE FOR DIALYSIS PATIENTS. CBC W/PLT COUNT & AUTO [id number] 06:22:00 Test Item Value Reference Range Comments WHITE BLOOD CELL COUNT (BEAKER) (test wneo=772) 5.2 K/ L 3.5-10.5 RED BLOOD CELL COUNT (BEAKER) (test owju=284) 3.70 M/ L 4.63-6.08 HEMOGLOBIN (BEAKER) (test hzyc=226) 11.6 GM/DL 13.7-17.5 HEMATOCRIT (BEAKER) (test bqty=961) 34.3 % 40.1-51.0 MEAN CORPUSCULAR VOLUME (BEAKER) (test xycw=542) 92.7 fL 79.0-92.2 MEAN CORPUSCULAR HEMOGLOBIN (BEAKER) (test 31.4 pg 25.7-32.2 sxlz=604) MEAN CORPUSCULAR HEMOGLOBIN CONC (BEAKER) (test 33.8 GM/DL 32.3-36.5 osbl=109) RED CELL DISTRIBUTION WIDTH (BEAKER) (test 13.2 % 11.6-14.4 tagm=033) PLATELET COUNT (BEAKER) (test waxe=529) 143 K/CU MM 150-450 MEAN PLATELET VOLUME (BEAKER) (test gzkg=863) 12.0 fL 9.4-12.4 NUCLEATED RED BLOOD CELLS (BEAKER) (test 0 /100 WBC 0-0 igwx=885) NEUTROPHILS RELATIVE PERCENT (BEAKER) (test 45 % pfaq=072) LYMPHOCYTES RELATIVE PERCENT (BEAKER) (test 43 % cehl=376) MONOCYTES RELATIVE PERCENT (BEAKER) (test 10 % fmuo=353) EOSINOPHILS RELATIVE PERCENT (BEAKER) (test 2 % eoez=181) BASOPHILS RELATIVE PERCENT (BEAKER) (test 1 % xhid=675) NEUTROPHILS ABSOLUTE COUNT (BEAKER) (test 2.34 K/ L 1.78-5.38 tgsd=759) LYMPHOCYTES ABSOLUTE COUNT (BEAKER) (test 2.22 K/ L 1.32-3.57 smou=552) MONOCYTES ABSOLUTE COUNT (BEAKER) (test 0.52 K/ L 0.30-0.82 uonx=366) EOSINOPHILS ABSOLUTE COUNT (BEAKER) (test 0.09 K/ L 0.04-0.54 tqdr=478) BASOPHILS ABSOLUTE COUNT (BEAKER) (test 0.03 K/ L 0.01-0.08 wmhe=081) IMMATURE GRANULOCYTES-RELATIVE PERCENT (BEAKER) 0 % 0-1 (test udpl=3215) POCT-GLUCOSE [id number] 23:15:00 Test Item Value Reference Range Comments POC-GLUCOSE METER (BEAKER) 317 mg/dL 70-110 TESTED AT [address] (test uufp=7004) [place] [address] POCT-GLUCOSE [id number] 18:43:00 Test Item Value Reference Range Comments POC-GLUCOSE METER (BEAKER) 341 mg/dL 70-110 TESTED AT [address] (test mity=1754) [place] [address] POCT-GLUCOSE [id number] 12:29:00 Test Item Value Reference Range Comments POC-GLUCOSE METER (BEAKER) 320 mg/dL 70-110 TESTED AT [address] (test qyuy=7877) [place] [id number] POCT-GLUCOSE [id number] 08:52:00 Test Item Value Reference Range Comments POC-GLUCOSE METER (BEAKER) 258 mg/dL 70-110 TESTED AT [address] (test xkmu=4711) [place] [address] TROPONIN [id number] 05:36:00 Test Item Value Reference Range Comments TROPONIN I (BEAKER) (test wxhw=981) 1.86 ng/mL 0.00-0.03 Troponin I (TnI) levels must be interpreted in the context of the presenting symptoms and the clinical findings. Elevated TnI levels indicate myocardial damage, but are not specific for ischemic heart disease. Elevated TnI levels are seen in patients with other cardiac conditions (including myocarditis and congestive heart failure), and slight TnI elevations occur in patients with other conditions, including sepsis, renal failure, acidosis, acute neurological disease, and persistent tachyarrhythmia.[id number] 05:12:00 Test Item Value Reference Range Comments PHOSPHORUS (BEAKER) (test qlos=754) 2.9 mg/dL 2.3-4.7 [id number] 05:12:00 Test Item Value Reference Range Comments MAGNESIUM (BEAKER) (test nija=473) 1.4 mg/dL 1.6-2.6 BASIC METABOLIC [id number] 05:12:00 Test Item Value Reference Range Comments SODIUM (BEAKER) (test 138 meq/L 136-145 uvln=714) POTASSIUM (BEAKER) (test 4.1 meq/L 3.5-5.1 bbyy=977) CHLORIDE (BEAKER) (test 104 meq/L 98-107 icee=413) CO2 (BEAKER) (test 28 meq/L 22-29 nlrr=455) BLOOD UREA NITROGEN 25 mg/dL 7-21 (BEAKER) (test xboh=130) CREATININE (BEAKER) (test 1.19 mg/dL 0.57-1.25 ndtq=784) GLUCOSE RANDOM (BEAKER) 228 mg/dL 70-105 (test drdk=873) CALCIUM (BEAKER) (test 9.5 mg/dL 8.4-10.2 acfi=126) EGFR (BEAKER) (test 61 mL/min/1.73 sq m ESTIMATED GFR IS NOT vwcc=9843) ACCURATE CREATININE CLEARANCE IN PREDICTING GLOMERULAR FILTRATION RATE. ESTIMATED GFR IS NOT APPLICABLE FOR DIALYSIS PATIENTS. CBC W/PLT COUNT & AUTO [id number] 04:47:00 Test Item Value Reference Range Comments WHITE BLOOD CELL COUNT (BEAKER) (test btjy=822) 8.8 K/ L 3.5-10.5 RED BLOOD CELL COUNT (BEAKER) (test owwn=676) 3.96 M/ L 4.63-6.08 HEMOGLOBIN (BEAKER) (test ytmr=330) 12.5 GM/DL 13.7-17.5 HEMATOCRIT (BEAKER) (test dezo=808) 36.5 % 40.1-51.0 MEAN CORPUSCULAR VOLUME (BEAKER) (test xozi=938) 92.2 fL 79.0-92.2 MEAN CORPUSCULAR HEMOGLOBIN (BEAKER) (test 31.6 pg 25.7-32.2 xypn=226) MEAN CORPUSCULAR HEMOGLOBIN CONC (BEAKER) (test 34.2 GM/DL 32.3-36.5 xnbi=060) RED CELL DISTRIBUTION WIDTH (BEAKER) (test 13.2 % 11.6-14.4 arjs=033) PLATELET COUNT (BEAKER) (test hmju=060) 173 K/CU MM 150-450 MEAN PLATELET VOLUME (BEAKER) (test jadc=183) 11.4 fL 9.4-12.4 NUCLEATED RED BLOOD CELLS (BEAKER) (test 0 /100 WBC 0-0 gvln=713) NEUTROPHILS RELATIVE PERCENT (BEAKER) (test 54 % yuyi=992) LYMPHOCYTES RELATIVE PERCENT (BEAKER) (test 36 % bnao=569) MONOCYTES RELATIVE PERCENT (BEAKER) (test 10 % fkne=939) EOSINOPHILS RELATIVE PERCENT (BEAKER) (test 0 % cmyp=325) BASOPHILS RELATIVE PERCENT (BEAKER) (test 0 % tmql=553) NEUTROPHILS ABSOLUTE COUNT (BEAKER) (test 4.69 K/ L 1.78-5.38 bdtw=630) LYMPHOCYTES ABSOLUTE COUNT (BEAKER) (test 3.16 K/ L 1.32-3.57 rpec=853) MONOCYTES ABSOLUTE COUNT (BEAKER) (test 0.84 K/ L 0.30-0.82 dnjc=043) EOSINOPHILS ABSOLUTE COUNT (BEAKER) (test 0.03 K/ L 0.04-0.54 bbnd=604) BASOPHILS ABSOLUTE COUNT (BEAKER) (test 0.03 K/ L 0.01-0.08 utim=765) IMMATURE GRANULOCYTES-RELATIVE PERCENT (BEAKER) 0 % 0-1 (test ypve=9991)
--- OUTSIDE RECORDS SUMMARY | 2019-10-15 14:13 | XMS REPORT ---
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 Problem Body mass index (BMI) of 35.0-35.9 Z68.35 Active in adult Problem Peripheral artery disease I73.9 Active Assessment Coronary artery disease involving I25.119 Active [place] coronary artery of [place] heart with angina pectoris Problem Stenosis of left carotid artery I65.22 Active Assessment Chronic systolic heart failure I50.22 Active Assessment Peripheral artery disease I73.9 Active Problem NIKI (obstructive sleep apnea) G47.33 Active Problem Type 2 diabetes mellitus with 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 Problem Primary osteoarthritis of both hips M16.0 Active Problem Coronary artery disease involving I25.119 Active [place] coronary artery of [place] heart with angina pectoris Problem Chronic systolic heart failure I50.22 Active Problem Arteriosclerosis of coronary artery I25.10 Active Problem Hyperlipidemia, mixed E78.2 Active Problem Status post implantation of 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 automatic cardioverter/defibrillator (AICD) Problem Benign essential HTN I10 Active Problem Microalbuminuria R80.9 Active Assessment NIKI (obstructive sleep apnea) G47.33 Active Problem Stented coronary artery Z95.5 Active Problem Adult BMI 35.0-35.9 kg/sq m Z68.35 Active Assessment Stenosis of left carotid artery I65.22 Active Problem Diabetes type 2, uncontrolled E11.65 Active Problem Noncompliance with dietary Z91.11 Active restriction Medications Medication Code Code Instructions Start End Status Dosage System Date Date Lipitor [facility] 07036911310 80 MG Orally Active 1 tablet Once a day Fenofibrate [facility] 19881320488 145 MG Orally Active 1 tablet Once a day with food Nitroglycerin [facility] 40586957607 0.4 MG Active as directed Sublingual Coreg [facility] 21778048679 12.5 MG Orally Active 1 tab Twice a day Glimepiride [facility] 81865755588 4 MG Orally Active 1 tablet Twice a day with breakfast or the first main meal of the day Contour next [facility] 0 n/s finger Sept Active n/s testing strips prick once 10, daily 2018 Isosorbide [facility] 07887454404 120 MG Orally Active 1 tablet in Mononitrate ER Once a day the morning Victoza [facility] 72053006055 18 MG/3ML Active as directed Subcutaneous once a day Aspir-81 [facility] 86900806430 81 MG Orally Active 1 tablet Once a day Lisinopril [facility] 50161050336 5 MG Orally Active 1 tablet Once a day Metformin HCl [facility] 08596879780 1000 MG Orally Active 1 tablet Twice a day with meals Januvia [facility] 74260682005 100 MG Orally Active 1 tablet Once a day Spironolactone [facility] [address]-38 25 MG Orally Active 1 tablet Once a day Results No Known Results Summary Purpose eClinicalWorks Submission
--- OUTSIDE RECORDS SUMMARY | 2019-10-15 14:13 | XMS REPORT ---
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 Problem Primary osteoarthritis of both hips M16.0 Active Problem Coronary artery disease involving I25.119 Active [place] coronary artery of [place] heart with angina pectoris Problem Chronic systolic heart failure I50.22 Active Problem Arteriosclerosis of coronary artery I25.10 Active Problem Hyperlipidemia, mixed E78.2 Active Problem Status post implantation of 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 automatic cardioverter/defibrillator (AICD) Problem Benign essential HTN I10 Active Problem Microalbuminuria R80.9 Active Problem Stented coronary artery Z95.5 Active Problem Adult BMI 35.0-35.9 kg/sq m Z68.35 Active Problem Diabetes type 2, uncontrolled E11.65 Active Problem Noncompliance with dietary Z91.11 Active restriction Medications No Known Medications Results No Known Results Summary Purpose eClinicalWorks Submission
--- OUTSIDE RECORDS SUMMARY | 2019-10-15 14:13 | XMS REPORT ---
:1955 Author Organization e[employer]Works Care Team Providers Name Role Phone Vanita Pina Provider Role Unavailable Allergies, Adverse Reactions, Alerts Substance Reaction Event Type N.K.D.A. 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 Problem Stenosis of left carotid artery I65.22 Active Problem Coronary artery disease involving I25.119 Active [place] coronary artery of [place] heart with angina pectoris Assessment Acute cystitis without hematuria N30.00 Active Assessment BPH loc w/o ur obs/LUTS N40.0 Active Problem BPH loc w/o ur obs/LUTS N40.0 Active Problem Peripheral artery disease I73.9 Active Problem Type 2 diabetes mellitus with 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 Problem Chronic systolic heart failure I50.22 Active Problem NIKI (obstructive sleep apnea) G47.33 Active Problem Hyperlipidemia, mixed E78.2 Active Problem Stented coronary artery Z95.5 Active Problem Status post implantation of 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 automatic cardioverter/defibrillator (AICD) Problem Arteriosclerosis of coronary artery I25.10 Active Problem Microalbuminuria R80.9 Active Problem Adult BMI 35.0-35.9 kg/sq m Z68.35 Active Problem Diabetes type 2, uncontrolled E11.65 Active Problem Noncompliance with dietary Z91.11 Active restriction Problem Benign essential HTN I10 Active Problem Morbid (severe) obesity due to E66.01 Active excess calories Medications Medication Code Code Instructions Start End Status Dosage System Date Date Coreg [facility] 53085121059 12.5 MG Orally Active 1 tab Twice a day Lisinopril [facility] 61595859345 5 MG Orally Active 1 tablet Once a day Isosorbide ND 06027110036 120 MG Orally Active 1 tablet in Mononitrate ER Once a day the morning Fenofibrate [facility] 13868528075 145 MG Orally Active 1 tablet Once a day with food Nitroglycerin [facility] 89098244670 0.4 MG Active as directed Sublingual Spironolactone [facility] 13087864730 25 MG Orally Active 1 tablet Once a day Victoza [facility] 86468833554 18 MG/3ML Active as directed Subcutaneous once a day Metformin HCl [facility] 50453382780 1000 MG Orally Active 1 tablet Twice a day with meals Lipitor [facility] 04901506029 80 MG Orally Active 1 tablet Once a day Januvia [facility] 56892733540 100 MG Orally Active 1 tablet Once a day Contour next [place] 0 n/s finger Jun 10, Active n/s testing strips prick once 2019 daily Tamsulosin HCl [facility] 76949563207 0.4 MG Orally Aug 27January Active 1 capsule Once a day 2018 Cipro [facility] 37469653129 500 MG Orally Aug 27Aug Active 1 tablet every 12 hrs 2018 Aspir-81 [facility] 35805312207 81 MG Orally Active 1 tablet Once a day Glimepiride [facility] 31968011635 4 MG Orally Active 1 tablet Twice a day with breakfast or the first main meal of the day Results No Known Results Summary Purpose eClinicalWorks Submission
--- OUTSIDE RECORDS SUMMARY | 2019-10-15 14:13 | XMS REPORT ---
:1955 Author Organization eClinicalWorks Care Team Providers Name Role Phone Nell Gabrielh Provider Role Unavailable Allergies, Adverse Reactions, Alerts Substance Reaction Event Type N.K.D.A. Info Not Available Non Drug Allergy Problems Problem Type Condition Code Onset Dates Condition Status Assessment Cervical muscle pain M54.2 Active Assessment Hyperlipidemia, mixed E78.2 Active Assessment Benign essential HTN I10 Active Assessment Acute cystitis without hematuria N30.00 Active Problem Diabetes type 2, uncontrolled E11.65 Active Problem Benign essential HTN I10 Active Problem PAD (peripheral artery disease) I73.9 Active Problem 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 Active Problem Arteriosclerosis of coronary artery I25.10 Active Problem Status post fall Z91.81 Active Problem Type 2 diabetes mellitus with 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 Problem Primary osteoarthritis of both hips M16.0 Active Problem BPH loc w/o ur obs/LUTS N40.0 Active Problem Chronic systolic heart failure I50.22 Active Problem Status post implantation of 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 automatic cardioverter/defibrillator (AICD) Problem Stented coronary artery Z95.5 Active Problem Erectile dysfunction, unspecified N52.9 Active erectile dysfunction type Problem Hyperlipidemia, mixed E78.2 Active Problem NIKI (obstructive sleep apnea) G47.33 Active Problem Peripheral artery disease I73.9 Active Problem Stenosis of left carotid artery I65.22 Active Problem Coronary artery disease involving I25.119 Active [place] coronary artery of [place] heart with angina pectoris Problem Morbid (severe) obesity due to E66.01 Active excess calories Problem Body mass index (BMI) of 35.0-35.9 Z68.35 Active in adult Problem Adult BMI 35.0-35.9 kg/sq m Z68.35 Active Problem Noncompliance with dietary Z91.11 Active restriction Problem Proteinuria, unspecified R80.9 Active Problem Right hip pain M25.551 Active Problem Other osteoarthritis of spine, 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 50528558621 145 MG Orally Active 1 tablet Once a day with food Isosorbide [facility] 09046564657 120 MG Orally Active 1 tablet in Mononitrate ER Once a day the morning Aspir-81 [facility] 90224423477 81 MG Orally Active 1 tablet Once a day Tamsulosin HCl ND 58775800344 0.4 MG Orally Aug 27January Active 1 capsule Once a day 2018 Contour next [facility] 0 n/s finger Sept Active n/s testing strips prick once 10, daily 2019 Coreg [facility] 70631507975 6.25 MG Orally Inactive 1 tab BID Clopidogrel [facility] 14408332908 75 MG Oral Active TK 1 T PO Bisulfate D Januvia [facility] 80619273457 100 MG Orally Active 1 tablet Once a day Cipro [facility] 36192022419 500 MG Orally Aug 27Aug Inactive 1 tablet every 12 hrs 2018 Glimepiride [facility] 78271372562 4 MG Orally Active 1 tablet Twice a day with breakfast or the first main meal of the day Pennsaid [facility] 60349771492 2 % Oct 02Nov Inactive 2 pumps to Transdermal 2018 10, affected Twice a day 2019 area PRN Pain Lipitor [facility] 89368120111 40 MG Orally Inactive 1 tablet Once a day Furosemide [facility] 94074860180 40 MG Orally Active 1 tablet Once a day Gabapentin [facility] [address]-71 300 MG Orally Active 2 capsule three times a day Victoza [facility] [address]-07 18 MG/3ML Active 1.8 mg Subcutaneous once a day Metformin HCl [facility] 93188510642 1000 MG Orally Active 1 tablet Twice a day with meals Multivitamin [facility] 60350085088 - Orally Active as directed Adults Lisinopril [facility] 65748857803 5 MG Orally Inactive 1 tablet Once a day Spironolactone [facility] 33415543775 25 MG Orally Active 1 tablet Once a day Nitroglycerin [facility] 11439778077 0.4 MG Active as directed Sublingual Calcium-Magnesium [facility] 22077331344 - Orally Active as directed -Zinc Results No Known Results Summary Purpose eClinicalWorks Submission
--- OUTSIDE RECORDS SUMMARY | 2019-10-15 14:13 | XMS REPORT ---
:1955 Author Organization eClinicalWorks Care Team Providers Name Role Phone Benjamín Gabriel Provider Role Unavailable Allergies, Adverse Reactions, Alerts Substance Reaction Event Type N.K.D.A. 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 Assessment Coronary artery disease involving I25.709 Active coronary bypass graft of [place] heart with angina pectoris Problem Diabetes type 2, uncontrolled E11.65 Active Problem PAD (peripheral artery disease) I73.9 Active Problem 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 Active Problem Benign essential HTN I10 Active Problem Proteinuria, unspecified R80.9 Active Problem Primary osteoarthritis of both hips M16.0 Active Problem Status post fall Z91.81 Active Problem Chronic systolic heart failure I50.22 Active Problem NIKI (obstructive sleep apnea) G47.33 Active Problem Stented coronary artery Z95.5 Active Problem Hyperlipidemia, mixed E78.2 Active Problem BPH loc w/o ur obs/LUTS N40.0 Active Problem Arteriosclerosis of coronary artery I25.10 Active Problem Coronary artery disease involving I25.119 Active [place] coronary artery of [place] heart with angina pectoris Problem Type 2 diabetes mellitus with 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 Problem Peripheral artery disease I73.9 Active Problem Stenosis of left carotid artery I65.22 Active Assessment Primary osteoarthritis of both hips M16.0 Active Problem Noncompliance with dietary Z91.11 Active restriction Assessment Status post implantation of 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 automatic cardioverter/defibrillator (AICD) Problem Morbid (severe) obesity due to E66.01 Active excess calories Assessment Adult BMI 35.0-35.9 kg/sq m Z68.35 Active Problem Status post implantation of 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 automatic cardioverter/defibrillator (AICD) Assessment PAD (peripheral artery disease) I73.9 Active Problem Adult BMI 35.0-35.9 kg/sq m Z68.35 Active Assessment Right hip pain M25.551 Active Problem Coronary artery disease involving I25.709 Active coronary bypass graft of [place] heart with angina pectoris Assessment Morbid (severe) obesity due to E66.01 Active excess calories Problem Right hip pain M25.551 Active Problem Body mass index (BMI) of 35.0-35.9 Z68.35 Active in adult Problem Other osteoarthritis of spine, 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 Medications Medication Code Code Instructions Start End Status Dosage System Date Date Tamsulosin HCl [facility] 58097358270 0.4 MG Orally Aug 27January Active 1 capsule Once a day 2018 Metformin HCl [facility] 05255914239 1000 MG Active TAKE ONE TABLET BY MOUTH TWICE A DAY WITH MEALS Fenofibrate [facility] 80228406207 145 MG Orally Active 1 tablet Once a day with food Contour next [place] 0 n/s finger Jun 10, Active n/s testing strips prick once 2019 daily Clopidogrel [facility] 20735351130 75 MG Oral Active TK 1 T PO Bisulfate D Metformin HCl [facility] 50421573123 1000 MG Orally Active 1 tablet Twice a day with meals Isosorbide [facility] 49285663308 120 MG Orally Active 1 tablet in Mononitrate ER Once a day the morning Aspir-81 [facility] 49985719953 81 MG Orally Active 1 tablet Once a day Lisinopril [facility] 74974350152 5 MG Orally Active 1 tablet Once a day Glimepiride [facility] 17120574628 4 MG Orally Active 1 tablet Twice a day with breakfast or the first main meal of the day Nitroglycerin [facility] 30975936098 0.4 MG Active as directed Sublingual Cipro [facility] 47222806640 500 MG Orally Aug 27Aug Active 1 tablet every 12 hrs 2018 Lipitor [facility] 37927443237 80 MG Orally Active 1 tablet Once a day Coreg [facility] 45289233056 6.25 MG Orally Active 1 tab BID Januvia [facility] 43814057696 100 MG Orally Active 1 tablet Once a day Spironolactone ND 47772416611 25 MG Orally Active 1 tablet Once a day Victoza [facility] 03003936646 18 MG/3ML Active as directed Subcutaneous once a day Results No Known Results Summary Purpose eClinicalWorks Submission
--- OUTSIDE RECORDS SUMMARY | 2019-10-15 14:14 | XMS REPORT ---
:1955 Author Organization e[employer] Care Team Providers Name Role Phone Vanita Pina Provider Role Unavailable Allergies, Adverse Reactions, Alerts Substance Reaction Event Type N.K.D.A. 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 Active Problem Hyperlipidemia, mixed E78.2 Active Problem Primary osteoarthritis of both hips M16.0 Active Problem Peripheral artery disease I73.9 Active Problem Type 2 diabetes mellitus with 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 Problem Erectile dysfunction, unspecified N52.9 Active erectile dysfunction type Problem BPH loc w/o ur obs/LUTS N40.0 Active Problem Adult BMI 35.0-35.9 kg/sq m Z68.35 Active Problem Status post implantation of 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 automatic cardioverter/defibrillator (AICD) Problem Right hand paresthesia R20.2 Active Problem Stented coronary artery Z95.5 Active Problem Stenosis of left carotid artery I65.22 Active Problem NIKI (obstructive sleep apnea) G47.33 Active Problem Coronary artery disease involving I25.119 Active [place] coronary artery of [place] heart with angina pectoris Problem Chronic systolic heart failure I50.22 Active Problem Body mass index (BMI) of 35.0-35.9 Z68.35 Active in adult Problem Other osteoarthritis of spine, 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 Problem Noncompliance with dietary Z91.11 Active restriction Problem Morbid (severe) obesity due to E66.01 Active excess calories Problem Right hip pain M25.551 Active Problem PAD (peripheral artery disease) I73.9 Active Problem Coronary artery disease involving I25.709 Active coronary bypass graft of [place] heart with angina pectoris Problem Status post fall Z91.81 Active Medications Medication Code Code Instructions Start End Status Dosage System Date Date Nitroglycerin [facility] 12772193604 0.4 MG Active as directed Sublingual Furosemide [facility] 10297377318 40 MG Orally Active 1 tablet Once a day Contour next ND 0 n/s in vitro Jun 10, Active 1 test testing strips twice a day 2019 strip Calcium-Magnesium [facility] 36097125556 - Orally Active as directed -Zinc Glimepiride [facility] 53904941524 4 MG Orally Active 1 tablet Twice a day with breakfast or the first main meal of the day Fenofibrate [facility] 79880077782 145 MG Orally Active 1 tablet Once a day with food Aspir-81 [facility] 77612987370 81 MG Orally Active 1 tablet Once a day Clopidogrel [facility] 83375566011 75 MG Oral Active TK 1 T PO Bisulfate D Spironolactone [facility] 57341631273 25 MG Orally Active 1 tablet Once a day Tamsulosin HCl [facility] 16735732863 0.4 MG Orally Active 1 capsule Once a day Januvia [facility] 31397008663 100 MG Orally Active 1 tablet Once a day Multivitamin [facility] 86428422258 - Orally Active as directed Adults Victoza [facility] 70579228212 18 MG/3ML Active 1.8 mg Subcutaneous once a day Metformin HCl [facility] 83184950278 1000 MG Orally Active 1 tablet Twice a day with meals Isosorbide [facility] 94544550492 120 MG Orally Active 1 tablet in Mononitrate ER Once a day the morning Gabapentin [facility] 46613353368 300 MG Orally Active 2 capsule three times a day Results No Known Results Summary Purpose eClinicalWorks Submission
--- OUTSIDE RECORDS SUMMARY | 2019-10-15 14:14 | XMS REPORT ---
:1955 Author Organization [employer] Care Team Providers Name Role Phone Vainta Pina Provider Role Unavailable Allergies, Adverse Reactions, Alerts Substance Reaction Event Type N.K.D.A. Info Not Available Non Drug Allergy Problems Problem Type Condition Code Onset Dates Condition Status Assessment Erectile dysfunction, unspecified N52.9 Active erectile dysfunction type Assessment Incomplete bladder emptying R33.9 Active Assessment Acute cystitis without hematuria N30.00 [...] Problem Coronary artery disease involving I25.119 Active [place] coronary artery of [place] heart with angina pectoris Problem Morbid (severe) [...] involving I25.709 Active coronary bypass graft of [place] heart with angina pectoris Medications Medication Code Code Instructions Start End Status Dosage System Date Date Fenofibrate [facility] 67354251174 145 MG Orally Active 1 tablet Once a day with food Januvia [facility] 81621667826 100 MG Orally Active 1 tablet Once a day Glimepiride [facility] 53179984144 4 MG Orally Active 1 tablet Twice a day with breakfast or the first main meal of the day Contour next ND 0 n/s finger Jun 10, Active n/s testing strips prick once 2019 daily Lipitor [facility] 72275203559 80 MG Orally Active 1 tablet Once a day Metformin HCl [facility] 24841004293 1000 MG Active TAKE ONE TABLET BY MOUTH TWICE A DAY WITH MEALS Clopidogrel [facility] 95591840921 75 MG Oral Active TK 1 T PO Bisulfate D Isosorbide [facility] 69440537992 120 MG Orally Active 1 tablet in Mononitrate ER Once a day the morning Metformin HCl [facility] 09638834668 1000 MG Orally Active 1 tablet Twice a day with meals Nitroglycerin [facility] 42573951606 0.4 MG Active as directed Sublingual Spironolactone [facility] 58595348834 25 MG Orally Active 1 tablet Once a day Victoza [facility] 70904995785 18 MG/3ML Active as directed Subcutaneous once a day Coreg [facility] 23706356292 6.25 MG Orally Active 1 tab BID Lisinopril [facility] 47987229584 5 MG Orally Active 1 tablet Once a day Tamsulosin HCl [facility] 27086674244 0.4 MG Orally Active 1 capsule Once a day Aspir-81 [facility] 44045452284 81 MG Orally Active 1 tablet Once a day Results No Known Results Summary Purpose eClinicalWorks Submission
--- OUTSIDE RECORDS SUMMARY | 2019-10-15 14:14 | XMS REPORT ---
:1955 Author Organization [employer] Care Team Providers Name Role Phone Benjamín Gabriel Provider Role Unavailable Allergies No Known Allergies Problems Problem Type Condition Code Onset Dates Condition Status Assessment Right hand paresthesia R20.2 Active Assessment Type 2 diabetes mellitus with 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 Problem Diabetes type 2, uncontrolled E11.65 Active [...] Problem Coronary artery disease involving I25.119 Active [place] coronary artery of [place] heart with angina pectoris Problem Chronic systolic [...] involving I25.709 Active coronary bypass graft of [place] heart with angina pectoris Problem Status post fall Z91.81 Active Medications Medication Code System Code Instructions Start Date End Date Status Dosage Contour next NDC 0 n/s in vitro Sept 10, Active 1 test testing strips twice a day 2018 strip Results No Known Results Summary Purpose eClinicalWorks Submission
--- NOTE | 2019-10-15 14:39 | RAD REPORT ---
EXAM DESCRIPTION: RAD - Chest Single View - 10/15/2019 2:32 pm CLINICAL HISTORY: near syncope Chest pain. COMPARISON: Chest Single View dated 07/16/2019 FINDINGS: Portable technique limits examination quality. The lungs are grossly clear. The heart is moderately enlarged in size with a single lead pacer/defibr illator device present. Sternotomy wires are present. IMPRESSION: No acute intrathoracic process suspected.
[2019-10-15] MEDS ORDERED: NA CHLORIDE 0.9% 250 ML ONE (14:40)
[2019-10-15 15:03] LABS: Absolute Lymphocytes (CBC) 1.6 K/uL (0.7-4.9); Basophils % 0.6 % (0-1.3); Hematocrit 32.9 % (39.6-49.0); Lymphocytes % 24.1 % (15.3-44.8); MPV 9.4 fL (7.6-11.3); RBC Red Blood Cell Count 3.89 M/uL (4.33-5.43)
[2019-10-15 15:14] LABS: Protime INR 1.13
[2019-10-15] MEDS ORDERED: NA CHLORIDE 0.9% 1,000 ML ONE (15:25)
[2019-10-15 15:28] LABS: ALT/SGPT 24 U/L (12-78); AST/SGOT 12 U/L (15-37); Albumin 3.7 g/dL (3.4-5.0); Alkaline Phosphatase 42 U/L (45-117); BUN Blood Urea Nitrogen 37 mg/dL (7-18); Bicarbonate 27 mmol/L (21-32); Bilirubin Direct < 0.1 mg/dL (0-0.2); Bilirubin Total 0.3 mg/dL (0.2-1.0); Glucose Level 302 mg/dL (74-106); NT PRO-BNP 367 pg/mL (<125); Potassium 4.5 mmol/L (3.5-5.1); Protein, Total 7.4 g/dL (6.4-8.2); Sodium Level 136 mmol/L (136-145); Troponin (Emerg Dept Use Only) < 0.02 ng/mL (0.0-0.045)
[2019-10-15 15:30] LABS: Magnesium 1.4 mg/dL (1.8-2.4)
--- NOTE | 2019-10-15 15:50 | ER ---
Nurse's Notes [facility] Name: Jayme Galeano Age: 64 yrs Sex: Male : 1955 Arrival Date: 10/15/2019 Time: 14:06 Bed 3 Private MD: Benjamín Gabriel Diagnosis: Hypotension;Volume depletion;Hypomagnesemia;Dizziness and giddiness;Type 1 diabetes mellitus;Unspecified kidney failure-chronic Presentation: 10/15 14:12 Presenting complaint: Patient states: hypotension 71/33 at home. c/o dizziness and sv blurry vision. Transition of care: patient was not received from another setting of care. Onset of symptoms was October 15, 2019. Care prior to arrival: None. 14:12 Method Of Arrival: Wheelchair sv 14:12 Acuity: ADY 2 sv 17:55 Risk Assessment: Do you want to hurt yourself or someone else? Patient reports no ph desire to harm self or others. 17:55 Initial Sepsis Screen: Does the patient meet any 2 criteria? No. Patient's initial ph sepsis screen is negative. Does the patient have a suspected source of infection? No. Patient's initial sepsis screen is negative. Historical: - Allergies: 14:14 No Known Drug Allergies; sv - Home Meds: 14:14 spironolactone 25 mg Oral tab [Active]; carvedilol 12.5 mg oral tab [Active]; sv lisinopril 40 mg oral tab once daily [Active]; isosorbide mononitrate 120 mg Oral Tb24 [Active]; atorvastatin 40 mg Oral tab 1 tab once daily [Active]; fenofibrate oral oral [Active]; Invokana 300 mg Oral tab 1 tab once daily [Active]; Plavix 75 mg Oral tab 1 tab once daily [Active]; Lasix 40 mg Oral tab [Active]; glimepiride 4 mg Oral tab 1 tab twice a day [Active]; Metformin Oral [Active]; Aspirin Oral [Active]; gabapentin oral oral [Active]; - PMHx: 14:14 Diabetes - IDDM; Hyperlipidemia; Hypertension; sv - PSHx: 14:14 Heart stents; Defibrillator; sv - Immunization history:: Adult Immunizations unknown. - Social history:: Smoking status: Patient/guardian denies using tobacco. - Family history:: not pertinent. - Ebola Screening: : No symptoms or risks identified at this time. Screenin:30 Abuse screen: Denies threats or abuse. Denies injuries from another. Nutritional sg screening: No deficits noted. Tuberculosis screening: No symptoms or risk factors identified. Fall Risk None identified. Assessment: 14:30 General: Appears in no apparent distress. well groomed, well developed, well nourished, sg Behavior is calm, cooperative, appropriate for age. Pain: Denies pain. Neuro: Level of Consciousness is awake, alert, obeys commands, Oriented to person, place, time, Dredge Engineer are equal bilaterally Moves all extremities. Gait is steady, Speech is normal, Facial droop on right, pt family reports pt facial appearance to be normal for pt. Cardiovascular: Capillary refill is brisk in bilateral fingers Patient's skin is warm and dry. Chest pain is denied. Respiratory: Airway is patent Respiratory effort is even, unlabored, Respiratory pattern is regular, symmetrical. GI: No signs and/or symptoms were reported involving the gastrointestinal system. : No signs and/or symptoms were reported regarding the genitourinary system. EENT: Oral mucosa is moist. Throat is clear. Derm: No signs and/or symptoms reported regarding the dermatologic system. Musculoskeletal: Circulation, motion, and sensation intact. Range of motion: intact in all extremities. 15:30 Reassessment: Patient appears in no apparent distress at this time. Patient and/or sg family updated on plan of care and expected duration. Pain level reassessed. Patient is alert, oriented x 3, equal unlabored respirations, skin warm/dry/pink. Patient denies pain at this time. Patient states feeling better. 16:45 Reassessment: Patient appears in no apparent distress at this time. Patient and/or sg family updated on plan of care and expected duration. Pain level reassessed. pt and pt family updated on need for admission by , awaiting a call back from receiving nurse You RN at this time Patient denies pain at this time. Patient states feeling better. 17:56 Reassessment: Patient appears in no apparent distress at this time. Patient and/or ph family updated on plan of care and expected duration. Pain level reassessed. Patient is alert, oriented x 3, equal unlabored respirations, skin warm/dry/pink. Vital Signs: 14:14 BP 77 / 57; Pulse 80; Resp 16; Temp 97; Pulse Ox 97% ; Weight 96.16 kg; Height 5 ft. 5 sv in. (165.10 cm); 15:15 BP 101 / 64; Pulse 77; Resp 17; Temp 97.1; Pulse Ox 99% on R/A; sg 15:37 BP 88 / 62; Pulse 72; Resp 17; Pulse Ox 98% on R/A; sg 16:10 BP 106 / 59; Pulse 77; Resp 16; Pulse Ox 98% on R/A; sg 16:30 BP 102 / 60; Pulse 72; Resp 16; Pulse Ox 98% on R/A; sg 17:17 BP 112 / 65; Pulse 87; Resp 16; Temp 97.1; Pulse Ox 99% on R/A; sg 17:55 BP 99 / 66; Pulse 78; Resp 18; Pulse Ox 98% on R/A; ph 14:14 Body Mass Index 35.28 (96.16 kg, 165.10 cm) sv ED Course: 14:06 Patient arrived in ED. as 14:07 Benjamín Gabriel DO is Private Physician. as 14:12 Triage completed. sv 14:29 Alexsander Collado MD is Attending Physician. yusef 14:30 XRAY Chest (1 view) In Process Unspecified. EDMS 14:30 Patient has correct armband on for positive identification. Bed in low position. Call sg light in reach. Adult w/ patient. consultant in ergonomics and safety on. Pulse ox on. NIBP on. 14:36 Dwayne Chowdary, IQRA is Primary Nurse. sg 14:50 EKG done, by technology recruiter. reviewed by Alexsander Collado MD. at1 14:56 Inserted saline lock: 20 gauge in left forearm, using aseptic technique. Blood ss collected. Patient maintains SpO2 saturation greater than 95% on room air. 15:47 Hilda Ortega MD is Hospitalizing Provider. yusef 17:55 No provider procedures requiring assistance completed. Patient admitted, IV remains in ph place. 17:55 Arm band placed on. ph Administered Medications: 14:56 Drug: NS 0.9% 250 ml Route: IV; Rate: bolus; Site: left forearm; ss 15:30 Follow up: Response: No adverse reaction; IV Status: Completed infusion; IV Intake: sg 250ml 15:20 Drug: NS 0.9% 250 ml Route: IV; Rate: bolus; Site: left forearm; sg 16:00 Follow up: Response: No adverse reaction; IV Status: Completed infusion; IV Intake: sg 250ml 15:29 Drug: NS 0.9% 1000 ml Route: IV; Rate: 125 ml/hr; Site: left forearm; sg 16:35 Drug: Magnesium Sulfate 1 grams Route: IVPB; Infused Over: 1 hrs; Site: left sg antecubital; Point of Care Testing: Blood Glucose: 15:00 Blood Glucose: 278 mg/dL; Ranges: Intake: 15:30 IV: 250ml; Total: 250ml. sg 16:00 IV: 250ml; Total: 500ml. sg Outcome: 15:49 Decision to Hospitalize by Provider. yusef 17:16 Admitted to Tele accompanied by tech, via wheelchair, room 407, with chart, Report sg called to IQRA Orta 17:16 Condition: good 17:16 Instructed on the need for admit, safety practices, Demonstrated understanding of instructions, follow-up care. 18:28 Patient left the ED. sg Signatures: Dispatcher [employer] Yudelka Gaytan, RN Dwayne Lewis RN RN Alexsander Hernandes MD MD cha Martinez, Amelia as Smirch, Shelby, RN RN Maude Rodríguez, scorekeeper EKG Tat1 Kimberly Vasques RN RN ph
--- NOTE | 2019-10-15 15:50 | EDPHYS ---
Physician Documentation [facility] Name: Jayme Galeano Age: 64 yrs Sex: Male : 1955 Arrival Date: 10/15/2019 Time: 14:06 Bed 3 Private MD: [facility] ED Physician Alexsander Collado HPI: 10/15 14:54 This 64 yrs old Male presents to ER via Wheelchair with complaints of Blood yusef Pressure Problem. 14:54 weak, dizzy, systolic 70. The patient presents with dizziness. Onset: The yusef symptoms/episode began/occurred just prior to arrival, this morning. Context: occurred at home, occurred while the patient was at rest. Modifying factors: The symptoms are alleviated by nothing, the symptoms are aggravated by nothing. Associated signs and symptoms: Pertinent positives: blurred vision. Severity of symptoms: At their worst the symptoms were mild in the emergency department the symptoms are unchanged. Patient's baseline: Neuro: alert and fully oriented. Historical: - Allergies: 14:14 No Known Drug Allergies; sv - Home Meds: 14:14 spironolactone 25 mg Oral tab [Active]; carvedilol 12.5 mg oral tab [Active]; sv lisinopril 40 mg oral tab once daily [Active]; isosorbide mononitrate 120 mg Oral Tb24 [Active]; atorvastatin 40 mg Oral tab 1 tab once daily [Active]; fenofibrate oral oral [Active]; Invokana 300 mg Oral tab 1 tab once daily [Active]; Plavix 75 mg Oral tab 1 tab once daily [Active]; Lasix 40 mg Oral tab [Active]; glimepiride 4 mg Oral tab 1 tab twice a day [Active]; Metformin Oral [Active]; Aspirin Oral [Active]; gabapentin oral oral [Active]; - PMHx: 14:14 Diabetes - IDDM; Hyperlipidemia; Hypertension; sv - PSHx: 14:14 Heart stents; Defibrillator; sv - Immunization history:: Adult Immunizations unknown. - Social history:: Smoking status: Patient/guardian denies using tobacco. - Family history:: not pertinent. - Ebola Screening: : No symptoms or risks identified at this time. ROS: 14:54 Constitutional: Negative for fever, chills, and weight loss, Eyes: Negative for injury, yusef pain, redness, and discharge, ENT: Negative for injury, pain, and discharge, Neck: Negative for injury, pain, and swelling, Cardiovascular: Negative for chest pain, palpitations, and edema, Respiratory: Negative for shortness of breath, cough, wheezing, and pleuritic chest pain, Abdomen/GI: Negative for abdominal pain, nausea, vomiting, diarrhea, and constipation, Back: Negative for injury and pain, : Negative for injury, bleeding, discharge, and swelling, MS/Extremity: Negative for injury and deformity, Skin: Negative for injury, rash, and discoloration, Neuro: Negative for headache, weakness, numbness, tingling, and seizure, Psych: Negative for depression, anxiety, suicide ideation, homicidal ideation, and hallucinations, Allergy/Immunology: Negative for hives, rash, and allergies, Endocrine: Negative for neck swelling, polydipsia, polyuria, polyphagia, and marked weight changes. Exam: 14:54 Constitutional: This is a well developed, well nourished patient who is awake, alert, yusef and in no acute distress. Head/Face: Normocephalic, atraumatic. Eyes: Pupils equal round and reactive to light, extra-ocular motions intact. Lids and lashes normal. Conjunctiva and sclera are non-icteric and not injected. Cornea within normal limits. Periorbital areas with no swelling, redness, or edema. ENT: Nares patent. No nasal discharge, no septal abnormalities noted. Tympanic membranes are normal and external auditory canals are clear. Oropharynx with no redness, swelling, or masses, exudates, or evidence of obstruction, uvula midline. Mucous membranes moist. Neck: Trachea midline, no thyromegaly or masses palpated, and no cervical lymphadenopathy. Supple, full range of motion without nuchal rigidity, or vertebral point tenderness. No Meningismus. Chest/axilla: Normal chest wall appearance and motion. Nontender with no deformity. No lesions are appreciated. Cardiovascular: Regular rate and rhythm with a normal S1 and S2. No gallops, murmurs, or rubs. Normal PMI, no JVD. No pulse deficits. Respiratory: Lungs have equal breath sounds bilaterally, clear to auscultation and percussion. No rales, rhonchi or wheezes noted. No increased work of breathing, no retractions or nasal flaring. Abdomen/GI: Soft, non-tender, with normal bowel sounds. No distension or tympany. No guarding or rebound. No evidence of tenderness throughout. Back: No spinal tenderness. No costovertebral tenderness. Full range of motion. Male : Normal genitalia with no discharge or lesions. Skin: Warm, dry with normal turgor. Normal color with no rashes, no lesions, and no evidence of cellulitis. MS/ Extremity: Pulses equal, no cyanosis. Neurovascular intact. Full, normal range of motion. Neuro: Awake and alert, GCS 15, oriented to person, place, time, and situation. Cranial nerves II-XII grossly intact. Motor strength 5/5 in all extremities. Sensory grossly intact. Cerebellar exam normal. Normal gait. Psych: Awake, alert, with orientation to person, place and time. Behavior, mood, and affect are within normal limits. Vital Signs: 14:14 BP 77 / 57; Pulse 80; Resp 16; Temp 97; Pulse Ox 97% ; Weight 96.16 kg; Height 5 ft. 5 sv in. (165.10 cm); 15:15 BP 101 / 64; Pulse 77; Resp 17; Temp 97.1; Pulse Ox 99% on R/A; sg 15:37 BP 88 / 62; Pulse 72; Resp 17; Pulse Ox 98% on R/A; sg 16:10 BP 106 / 59; Pulse 77; Resp 16; Pulse Ox 98% on R/A; sg 16:30 BP 102 / 60; Pulse 72; Resp 16; Pulse Ox 98% on R/A; sg 17:17 BP 112 / 65; Pulse 87; Resp 16; Temp 97.1; Pulse Ox 99% on R/A; sg 17:55 BP 99 / 66; Pulse 78; Resp 18; Pulse Ox 98% on R/A; ph 14:14 Body Mass Index 35.28 (96.16 kg, 165.10 cm) sv MDM: 14:29 Patient medically screened. [facility] 14:57 Data reviewed: vital signs, nurses notes, lab test result(s), EKG, radiologic studies, yusef plain films. 10/15 14:21 Order name: Basic Metabolic Panel; Complete Time: 15:38 snw 10/15 14:21 Order name: CBC with Diff; Complete Time: 15:38 snw 10/15 14:21 Order name: LFT's; Complete Time: 15:38 snw 10/15 14:21 Order name: Magnesium; Complete Time: 15:38 snw 10/15 14:21 Order name: NT PRO-BNP; Complete Time: 15:38 snw 10/15 14:21 Order name: PT-INR; Complete Time: 15:38 snw 10/15 14:21 Order name: Troponin (emerg Dept Use Only); Complete Time: 15:38 snw 10/15 14:21 Order name: XRAY Chest (1 view); Complete Time: 14:59 snw 10/15 14:21 Order name: EKG; Complete Time: 14:22 snw 10/15 15:12 Order name: Glucose, Ancillary Testing; Complete Time: 15:38 EDMS 10/15 14:21 Order name: FSBS; Complete Time: 15:09 snw 10/15 14:21 Order name: Cardiac monitoring; Complete Time: 14:55 snw 10/15 14:21 Order name: EKG - Nurse/Tech; Complete Time: 14:56 w 10/15 14:21 Order name: IV Saline Lock; Complete Time: 14:56 snw 10/15 14:21 Order name: Labs collected and sent; Complete Time: 14:56 w 10/15 14:21 Order name: O2 Per Protocol; Complete Time: 14:56 w 10/15 14:21 Order name: O2 Sat Monitoring; Complete Time: 14:56 w 10/15 16:14 Order name: CONS Pharmacy Consult EDMS 10/15 16:14 Order name: Consistent Carb (ADA) 1800 Alen EDMS Administered Medications: 14:56 Drug: NS 0.9% 250 ml Route: IV; Rate: bolus; Site: left forearm; ss 15:30 Follow up: Response: No adverse reaction; IV Status: Completed infusion; IV Intake: sg 250ml 15:20 Drug: NS 0.9% 250 ml Route: IV; Rate: bolus; Site: left forearm; sg 16:00 Follow up: Response: No adverse reaction; IV Status: Completed infusion; IV Intake: sg 250ml 15:29 Drug: NS 0.9% 1000 ml Route: IV; Rate: 125 ml/hr; Site: left forearm; sg 16:35 Drug: Magnesium Sulfate 1 grams Route: IVPB; Infused Over: 1 hrs; Site: left sg antecubital; Point of Care Testing: Blood Glucose: 15:00 Blood Glucose: 278 mg/dL; ss Ranges: Critical Glucose Levels:Adult <50 mg/dl or >400 mg/dl <40 mg/dl or >180 mg/dl Disposition: 10/15/19 15:49 Hospitalization ordered by Hilda Ortega for Inpatient Admission. Preliminary diagnosis are Hypotension, Volume depletion, Hypomagnesemia, Dizziness and giddiness, Type 1 diabetes mellitus, Unspecified kidney failure - chronic. - Bed requested for Telemetry/MedSurg (Inpatient). - Status is Inpatient Admission. sg - Condition is Fair. - Problem is new. - Symptoms have improved. UTI on Admission? No Signatures: Dispatcher [employer] EDMS Michelle Ott Stephanie, RN IQRA Dwayne Chowdary RN RN sg Anderson, Corey, MD MD cha Therrien, Shelly, TRANSCRIPT CLERK-C TRANSCRIPT CLERK-Csnw Luz Wang RN RN Kimberly Vasques RN RN ph Corrections: (The following items were deleted from the chart) 16:33 15:49 Hospitalization Ordered by Hilda Ortega MD for Inpatient Admission. Preliminary bd diagnosis is Hypotension; Volume depletion; Hypomagnesemia; Dizziness and giddiness; Type 1 diabetes mellitus; Unspecified kidney failure - chronic. Bed requested for Telemetry/MedSurg (Inpatient). Status is Inpatient Admission. Condition is Fair. Problem is new. Symptoms have improved. UTI on Admission? No. yusef 18:28 16:33 10/15/2019 15:49 Hospitalization Ordered by Hilda Ortega MD for Inpatient sg Admission. Preliminary diagnosis is Hypotension; Volume depletion; Hypomagnesemia; Dizziness and giddiness; Type 1 diabetes mellitus; Unspecified kidney failure - chronic. Bed requested for Telemetry/MedSurg (Inpatient). Status is Inpatient Admission. Condition is Fair. Problem is new. Symptoms have improved. UTI on Admission? No. bd
--- NOTE | 2019-10-15 16:16 | P.HP ---
Certification for Inpatient Patient admitted to: Observation Practitioner: I am a practitioner with admitting privileges, knowledge of patient current condition, hospital course, and medical plan of care. Services: Services provided to patient in accordance with Admission requirements found in Title 42 Section 412.3 of the Code of Federal Regulations Patient History Date of Service: 10/15/19 Reason for admission: Lightheadedness History of Present Illness: Mr Galeano is 64-year-old male with extensive history of CAD status post multiple stents who presented to the ER with complaints of lightheadedness. Symptom have been on and off for weeks. He checked his BP today at home and found 70's/30's. Patient recently had CABG and was discharged home on multiple antihypertensives. He was not taking his medications as prescribed. He stated that he was attempting to make his medications more convenient by taking 2 at a time instead of BID. Since then, he has had lightheadedness on some days. He denied any near syncope or syncope or LOC. He denied any chest pain, SOB, Fever, chills, signs of acute infection. Allergies No Known Drug Allergies Allergy (Verified 07/16/19 05:33) Unknown Home Medications: Atorvastatin Calcium [Lipitor] 40 mg PO DAILY 07/16/19 Gabapentin 300 mg PO BID 07/16/19 Glimepiride [Amaryl] 4 mg PO BID 07/16/19 Liraglutide [Victoza 2-Thompson] 1.2 mg SQ DAILY 07/16/19 Metformin HCl [Glucophage*] 1,000 mg PO BID 07/16/19 Topiramate [Topamax] 50 mg PO BID 07/16/19 carvediloL [Coreg*] 6.25 mg PO BID 07/16/19 lisinopriL [Prinivil*] 5 mg PO DAILY 07/16/19 - Past Medical/Surgical History Diabetic: Yes -: Coronary Artery disease -: Hypertension -: Diabetes mellitus type 2 -: HLD -: Cardiac catheterization -: Cardiac stent -: defibrilator - Social History Alcohol use: No CD- Drugs: No Caffeine use: Yes Review of Systems Neurological: Unremarkable (Lightheaded) Physical Examination - Physical Exam General: Alert, In no apparent distress HEENT: Atraumatic, PERRLA, Mucous membr. moist/pink, EOMI, Sclerae nonicteric Neck: Supple, 2+ carotid pulse no bruit, No LAD, Without JVD or thyroid abnormality Respiratory: Clear to auscultation bilaterally, Normal air movement Cardiovascular: Regular rate/rhythm, Normal S1 S2 Gastrointestinal: Normal bowel sounds, No tenderness Musculoskeletal: No tenderness Integumentary: No rashes Neurological: Normal gait, Normal speech, Normal strength at 5/5 x4 extr, Normal tone, Normal affect Lymphatics: No axilla or inguinal lymphadenopathy - Studies Laboratory Data (last 24 hrs) 10/15/19 14:54: PT 13.3 H, INR 1.13 10/15/19 14:54: WBC 6.6, Hgb 10.9 L, Hct 32.9 L, Plt Count 212 10/15/19 14:54: Sodium 136, Potassium 4.5, BUN 37 H, Creatinine 1.57 H, Glucose 302 H, Magnesium 1.4 L*, Total Bilirubin 0.3, AST 12 L, ALT 24, Alkaline Phosphatase 42 L Assessment and Plan - Plan Mr. Galeano is 64 y/o male pw lightheadedness #Hypotension- 2/2 overuse of antihypertensives. Home meds reviewed; however, yet to be uploaded to [facility] - symptomatic with lightheadedness; obtain CT brain for full work up -BP is now improved with IVF -Hold antihypertensive overnight -compliance advised #DM- check hgba1c. BG AC & HS and cover with ISS # CAD s/p CABG- will resume medications as tolerated - hold bb overnight -aspirin and plavix. #CKD- cr is at baseline #Hypomg- replace and recheck in a.m #Further recommendation pending work up DVT ppx- SCD Patient is full code Dispo- obs admission. Anticipate a.m dc. - Advance Directives Does patient have a Living Will: No Does patient have a Durable POA for Healthcare: No
[2019-10-15] MEDS ORDERED: MAGNESIUM SULFATE 1 gm IVPB 1 GM/100 ML BAG IV ONE (16:40)
[2019-10-15 18:54] VITALS: BMI 35.2
[2019-10-15] MEDS ORDERED: D50W 25 GM/50 ML SYRINGE/VIAL IV PRN (19:05)
[2019-10-15] MEDS ORDERED: GLUCAGON 1 MG/VIAL IM PRN (19:05)
[2019-10-15 19:52] LABS: Absolute Lymphocytes (CBC) 2.2 K/uL (0.7-4.9); Basophils % 0.6 % (0-1.3); Hematocrit 34.3 % (39.6-49.0); Lymphocytes % 31.5 % (15.3-44.8); MPV 9.4 fL (7.6-11.3); RBC Red Blood Cell Count 4.04 M/uL (4.33-5.43)
--- NOTE | 2019-10-15 20:04 | RAD REPORT ---
EXAM DESCRIPTION: CT - Ct Stroke Brain Wo Cont - 10/15/2019 7:55 pm CLINICAL HISTORY: Dizziness COMPARISON: None. TECHNIQUE: Computed axial tomography of the head was obtained. IV contrast was not requested. All CT scans are performed using dose optimization technique as appropriate and may include automated exposure control or mA/KV adjustment according to patient size. FINDINGS: An intracranial bleed is not seen . The ventricles are normal in caliber. No extra-axial fluid collection is noted. Fluid within the sinuses/ mastoids is not seen. IMPRESSION: No acute intracranial abnormality is seen. If patient's symptoms persist MRI of the bra in would be recommended. The patient's nurse Fabiola was notified 7:57PM on October 15, 2019
[2019-10-15] MEDS: INSULIN -REGULAR HUMAN 50 UNIT/0.5 ML ML SQ SCH (20:14)
[2019-10-16 00:37] VITALS: O2SAT 96
[2019-10-16 04:35] LABS: Absolute Lymphocytes (CBC) 2.5 K/uL (0.7-4.9); Basophils % 0.6 % (0-1.3); Hematocrit 30.4 % (39.6-49.0); Lymphocytes % 34.5 % (15.3-44.8); MPV 9.5 fL (7.6-11.3)
[2019-10-16 04:55] LABS: Magnesium 1.5 mg/dL (1.8-2.4); Potassium 4.1 mmol/L (3.5-5.1)
[2019-10-16] MEDS: INSULIN -REGULAR HUMAN 50 UNIT/0.5 ML ML SQ SCH (07:30)
[2019-10-16] MEDS ORDERED: Magnesium Sulfate 2gm IVPB 2 G/50 ML BAG IV ONE (08:36)
[2019-10-16] MEDS ORDERED: ATORVASTATIN 40 MG TAB PO SCH (09:00)
[2019-10-16] MEDS ORDERED: ASPIRIN EC 81 MG TAB PO SCH (09:00)
--- NOTE | 2019-10-16 11:01 | EKG ---
Test Date: 2019-10-15 Test Time: 14:41:38 Balance Recesser: SHAYAN MEASUREMENT RESULTS: Intervals: Rate: 79 AK: 184 QRSD: 112 QT: 378 QTc: 433 Ragland: P: 37 AK: 184 QRS: -2 T: -66 INTERPRETIVE STATEMENTS: Normal sinus rhythm Inferior infarct, age undetermined Anterolateral infarct, age undetermined Abnormal ECG Compared to ECG 07/16/2019 06:16:01 Left ventricular hypertrophy no longer present Myocardial infarct finding still present Electronically Signed On 10-16-19 10:58:30 WET CROWN BLOCKING OPERATOR by Nael Verdugo
--- NOTE | 2019-10-16 12:32 | P.DS ---
Admission Date: 10/15/19 Discharge Date: 10/16/19 Disposition: ROUTINE DISCHARGE Discharge Condition: GOOD Reason for Admission: Lightheadedness Hospital Course: Mr Galeano is 64-year-old male with extensive history of CAD status post multiple stents who presented to the ER with complaints of lightheadedness. Symptom had been on and off for weeks. He checked his BP at home and found 70's/ 30's. Patient recently had CABG and was discharged home on multiple antihypertensives. He was not taking his medications as prescribed. He stated that he was attempting to make his medications more convenient by taking 2 at a time instead of BID. Since then, his symptoms started. Initial evaluation found him to be hypotensive and symptomatic. He was resuscitated with IV fluid and BP did improve. Acute infection and other etiologies were considered and ruled out. His antihypertensives were held and BP return to expected range. Patient has been advised to take medications as prescribed by medical provider. His medications have been adjusted. He will follow up with his pcp and capacitor repairer for further care. Vital Signs/Physical Exam: Temp Pulse Resp BP Pulse Ox 97.2 F 78 18 140/74 97 10/16/19 08:00 10/16/19 08:00 10/16/19 08:00 10/16/19 08:00 10/16/19 08:00 General: Alert, In no apparent distress HEENT: Atraumatic, PERRLA, EOMI Neck: Supple, JVD not distended Respiratory: Clear to auscultation bilaterally, Normal air movement Cardiovascular: Regular rate/rhythm, Normal S1 S2 Gastrointestinal: Normal bowel sounds, No tenderness Musculoskeletal: No tenderness Integumentary: No rashes Neurological: Normal speech, Normal tone, Normal affect Lymphatics: No axilla or inguinal lymphadenopathy Laboratory Data at Discharge: WBC 7.3 K/uL (4.3-10.9) 10/16/19 04:15 Hgb 10.2 g/dL (13.6-17.9) L 10/16/19 04:15 Hct 30.4 % (39.6-49.0) L 10/16/19 04:15 Plt Count 191 K/uL (152-406) 10/16/19 04:15 PT 13.3 SECONDS (9.5-12.5) H 10/15/19 14:54 INR 1.13 10/15/19 14:54 Sodium 140 mmol/L (136-145) 10/16/19 04:15 Potassium 4.1 mmol/L (3.5-5.1) 10/16/19 04:15 BUN 34 mg/dL (7-18) H 10/16/19 04:15 Creatinine 1.21 mg/dL (0.55-1.3) 10/16/19 04:15 Glucose 81 mg/dL (74-106) 10/16/19 04:15 Magnesium 1.5 mg/dL (1.8-2.4) L 10/16/19 04:15 Total Bilirubin 0.3 mg/dL (0.2-1.0) 10/15/19 14:54 AST 12 U/L (15-37) L 10/15/19 14:54 ALT 24 U/L (12-78) 10/15/19 14:54 Alkaline Phosphatase 42 U/L (45-117) L 10/15/19 14:54 Home Medications: Atorvastatin Calcium [Lipitor] 40 mg PO BEDTIME 07/16/19 Gabapentin 300 mg PO BID 07/16/19 Glimepiride [Amaryl] 4 mg PO BID 07/16/19 Liraglutide [Victoza 2-Thompson] 1.2 mg SQ DAILY 07/16/19 carvediloL [Coreg*] 6.25 mg PO BID 07/16/19 Aspirin 81 mg PO DAILY 10/15/19 Canagliflozin [Invokana] 300 mg PO DAILY 10/15/19 Clopidogrel Bisulfate [Plavix*] 75 mg PO DAILY 10/15/19 Furosemide 40 mg PO DAILY 10/15/19 Insulin Glargine,Hum.rec.anlog [Lantus Solostar] 15 units SQ BID 10/15/19 Isosorbide Mononitrate [Isosorbide Mononitrate ER] 120 mg PO DAILY 10/15/19 Metformin HCl 1,000 mg PO BID 10/15/19 Sitagliptin Phosphate [Januvia*] 100 mg PO DAILY 10/15/19 Spironolactone [Aldactone*] 25 mg PO DAILY 10/15/19 bisacodyL [Dulcolax*] 5 mg PO PRN PRN 10/15/19 Lisinopril [Zestril] 20 mg PO DAILY #30 tablet 10/16/19 New Medications: Lisinopril [Zestril] 20 mg PO DAILY #30 tablet Patient Discharge Instructions: Hold antihypertensives until tomorrow 10/17/2019 ; Take medication as prescribed. Follow up with pcp for BP monitoring Diet: ADA Followup: Benjamín Gabriel DO [Primary Care Provider] - 1-2 Days (blood pressure monitoring )
[2019-10-16 14:18] VITALS: BP 111/59; TEMP 97.1
== END 2019-10-16 13:34 | disposition home or self-care (01) ==
LOC: ER 14:04 → INTOOBSV 17:54 → ERHOLD 17:54 → 4TH 17:59
PROVIDERS: ADMIT Hospitalist; ATTEND Hospitalist
DX: I95.2 Hypotension due to drugs (principal); T46.5X5A Adverse effect of other antihypertensive drugs, initial encounter; Y92.009 Unspecified place in unspecified non-institutional (private) residence as the place of occurrence of the external cause; I25.10 Atherosclerotic heart disease of native coronary artery without angina pectoris; E11.9 Type 2 diabetes mellitus without complications; I10 Essential (primary) hypertension; E83.42 Hypomagnesemia; Z95.1 Presence of aortocoronary bypass graft; Z95.5 Presence of coronary angioplasty implant and graft
CPT/HCPCS: 96365; 93005; 85025 ×3; 80048 ×2; 36415; 83735 ×3; 85610; 82947 ×4; 80076; 83036; 84484; 83880; 70450; 71045; 96375; 99285; J3475 ×2; J7030 ×2; G0378 ×3

== ENCOUNTER 2020-08-22 23:05 | Observation (INO) | payer OTHER ==
--- OUTSIDE RECORDS SUMMARY | 2020-08-23 00:16 | XMS REPORT | Clinical Summary ---
:1955 Author Organization [facility] Address [address] [place] [address] Care Team Providers Name Role Phone Benjamín Gabriel DO Primary Care Provider [phone] Jamarcus Guzman Unavailable Allergies No Known Allergies Medications Medication Sig Dispensed Refills Start Date End Date Status gabapentin Take 300 mg by mouth 0 Active (NEURONTIN) 300 MG 3 (three) times capsule daily. liraglutide 0.6 Inject 1.2 mg 0 Active mg/0.1 mL (18 mg/3 subcutaneously. mL) PnIjIndications: type 2 diabetes mellitus topiramate (TOPAMAX) Take 50 mg by mouth 0 Active 50 MG tablet 2 (two) times daily. atorvastatin Take 40 mg by mouth 0 Active (LIPITOR) 40 MG daily. tablet lisinopril Take 5 mg by mouth 0 Active (PRINIVIL,ZESTRIL) daily. 40 MG tablet carvedilol (COREG) Take 6.25 mg by 0 Active 6.25 MG tablet mouth 2 (two) times daily with breakfast and dinner. metFORMIN Take 1,000 mg by 0 Act w[place]ka (GLUCOPHAGE) 1000 MG mouth 2 (two) times tablet daily with breakfast and dinner. melatonin 3 mg Tab Take 5 mg by mouth 0 Active tablet every night as needed. glimepiride (AMARYL) Take 1 tablet (4 mg 90 tablet 0 9 Active 4 MG tablet total) by mouth every morning before breakfast. insulin glargine Inject 15 Units 9 mL 2 07/26/2019 Active (LANTUS SOLOSTAR subcutaneously 2 U-100 INSULIN) 100 (two) times daily. unit/mL (3 mL) InPn clopidogrel (PLAVIX) Take 1 tablet (75 mg 90 tablet 0 07/27/20 19 75 mg tablet total) by mouth 0 daily. aspirin 81 MG EC Take 1 tablet (81 mg 90 tablet 0 07/27/2019 1 tablet total) by mouth 0 daily. senna-docusate Take 1 tablet by 20 tablet 0 07/26/2019 02 (SENOKOT S) 8.6-50 mouth 2 (two) times 0 mg per tablet daily. spironolactone Take 1 tablet (25 mg 90 tablet 0 07/27/2019 (ALDACTONE) 25 MG total) by mouth 0 tablet daily. furosemide (LASIX) Take 1 tablet (40 mg 90 tablet 0 07/27/2019 40 MG tablet total) by mouth 0 daily. Active Problems Problem Noted Date S/P CABG x [address] Ratliff on 07/21/2019 07/21/2019 NSTEMI (non-ST elevated myocardial infarction) 019 Acute on chronic systolic heart failure Acute respiratory insufficiency Acute blood loss anemia Thrombocytopenia Hyperglycemia Chronic systolic heart failure Encounters Date Type Specialty Care Team Description 09/16/2019 Telephone Cardiology Jannette Mejia, RN 30- day post discharge follow-up after 08/23/2019 Family History Medical History Relation Name Comments Diabetes Father Heart attack Father Stroke Father Diabetes Mother Stroke Mother Relation Name Status Comments Father Mother Social History Tobacco Use Types Packs/Day Years Used Date Never Smoker Smokeless Tobacco: Never Used Alcohol Use Drinks/Week oz/Week Comments Yes 6 Cans of beer 6.0 once a week Sex Assigned at Date Recorded Not on file Last Filed Vital Signs Not on file Plan of Treatment Health Maintenance Due Date Last Done Comments COLON CANCER SCREENING COLONOSCOPY 1955 PNEUMOCOCCAL 65+ YRS (1 of 1 - [id number]) 2019 MEDICARE ANNUAL WELLNESS (YEAR 2 or FIRST YEAR if no 01/01/2020 IPPE) INFLUENZA VACCINE (#1) 2020 Results Not on fileafter 08/23/2019 Insurance Payer Benefit Plan / Subscriber ID Effective Dates Phone Addre ss Type Group MEDICARE MEDICARE A B [id number] 2018-Present Medicare MCR GENERIC MEDICARE [id number] 2019-Present Medigap SUPPLEMENT/HELEN SUPPLEMENT VIDUAL Advance Directives For more information, please contact: [phone] Code Status Date Activated Date Inactivated Comments Full Code 07/20/2019 12:28 PM 07/26/2019 2:41 PM This code status was determined by: Patient Full Code 07/17/2019 3:25 AM 07/20/2019 12:28 PM This code status was determined by: Patient
--- OUTSIDE RECORDS SUMMARY | 2020-08-23 00:20 | XMS REPORT ---
:1955 Author Organization [employer] Care Team Providers Name Role Phone Benjamín Gabriel Provider Role Unavailable Allergies, Adverse Reactions, Alerts Substance Reaction Event Type N.K.D.A. Info Not Available Non Drug Allergy Problems Problem Type Condition Code Onset Dates Condition Statu s Assessment Coronary artery disease involving I25.709 Active coronary bypass graft of crow heart with angina pectoris Assessment 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 Active Assessment Type 2 diabetes mellitus with 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 Problem Diabetes type 2, uncontrolled E11.65 Active Problem Benign essential HTN I10 Active Problem Stented coronary artery Z95.5 Acti ve Problem Arteriosclerosis of coronary artery I25.10 Active Problem Hyperlipidemia, mixed E78.2 Active Problem Status post implantation of 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 automatic cardioverter/defibrillator (AICD) Problem Adult BMI 35.0-35.9 kg/sq m Z68.35 Active Problem Body mass index (BMI) of 35.0-35.9 Z68.35 Active in adult Problem Morbid (severe) obesity due to E66.01 Active excess calories Problem Noncompliance with dietary Z91.11 A ctive restriction Problem PAD (peripheral artery disease) I73.9 Active Problem 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 Active Problem Other osteoarthritis of spine, 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 Problem Right hip pain M25.551 Active Problem Status post fall Z91.81 Active Problem Primary osteoarthritis of both hips M16.0 Active Problem Proteinuria, unspecified R80.9 Act [place] Problem Coronary artery disease involving I25.709 Active coronary bypass graft of crow heart with angina pectoris Assessment Long-term insulin use Z79.4 Active Assessment Encounter for examination for Z02.0 Active admission to educational institution Assessment Noncompliance w/medication Z91.14 A ctive treatment due to intermit use of medication Assessment Right hip pain M25.551 Active Assessment Morbid (severe) obesity due to E66.01 Active excess calories Assessment Adult BMI 35.0-35.9 kg/sq m Z68.35 Active Problem Type 2 diabetes mellitus with 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 Assessment Non-compliant behavior R46.89 Activ e Problem NIKI (obstructive sleep apnea) G47.33 Active Problem Peripheral artery disease I73.9 Ac tive Problem Stenosis of left carotid artery I65.22 Active Problem Coronary artery disease involving I25.119 Active crow coronary artery of crow heart with angina pectoris Problem CKD (chronic kidney disease) stage N18.3 Active 3, GFR 30-59 ml/min Problem Hypomagnesemia E83.42 Active Problem Long-term insulin use Z79.4 Active Assessment Hypotensive episode I95.9 Active Problem BPH loc w/o ur obs/LUTS N40.0 Acti ve Assessment Status post implantation of 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 automatic cardioverter/defibrillator (AICD) Problem Chronic systolic heart failure I50.22 Active Assessment Primary osteoarthritis of both hips M16.0 Active Problem Right hand paresthesia R20.2 Activ e Assessment PAD (peripheral artery disease) I73.9 Active Problem Erectile dysfunction, unspecified N52.9 Active erectile dysfunction type Assessment CKD (chronic kidney disease) stage N18.3 Active 3, GFR 30-59 ml/min Assessment Hypomagnesemia E83.42 Active Assessment Proteinuria, unspecified R80.9 Act [place] Assessment Hyperlipidemia, mixed E78.2 Active Assessment Benign essential HTN I10 Active Assessment Status post fall Z91.81 Active Assessment Stented coronary artery Z95.5 Acti ve Medications Medication Code Code Instructions Start End Status Dosage System Date Date Gabapentin ND 44423949594 300 MG Orally Active 2 c apsule three times a day Multivitamin [facility] 99089623288 - Orally Active as dir ected Adults Nitroglycerin ND 69079572580 0.4 MG Active as dir ected Sublingual Isosorbide ND 71957813980 30 MG Orally Active 1 ta blet in Mononitrate ER Once a day the mo rning Metformin HCl ND 03733045791 1000 MG Orally Active 1 tablet Twice a day with meals Coreg ND 36577278793 3.125 MG Active 1 tab Orally BID Magnesium Oxide ND 00988906194 400 MG Orally Active 1 tablet as Once a day needed Furosemide ND 10955622110 40 MG Orally Active 1 ta blet Once a day PRN SWELLING Clopidogrel [facility] 22001588785 75 MG Oral Active TK 1 T PO Bisulfate D Tamsulosin HCl [facility] 86895197507 0.4 MG Orally Active 1 capsule BID Glimepiride [facility] 83712178078 4 MG Active TAKE ONE TABLET BY MOUTH TWICE A DAY WITH BREAKFAST OR THE FIRST MAIN MEAL OF THE DAY Lipitor ND 59507061483 80 MG Orally Active 1 table t Once a day Glimepiride [facility] 09064604923 4 MG Orally Inactive 1 t ablet Twice a day with breakfast or the first main meal of the day Contour next NDC 0 n/s finger Active n/s testing strips prick once daily Tresiba FlexTouch [facility] 43521104661 100 UNIT/ML Sept Active Inject 10 Subcutaneous 11, units Once a day 2019 Carvedilol [facility] 44453714090 3.125 MG Active 1 tablet Orally Twice a day Victoza [facility] 45770249368 18 MG/3ML Active as directe d Subcutaneous once a day Aspir-81 [facility] 78565681235 81 MG Orally Active 1 tabl et Once a day Lisinopril [facility] 39572307080 2.5 MG Orally Active 1 t ablet Once a day Metformin HCl [facility] 05478705747 1000 MG Active TAKE O NE TABLET BY MOUTH TWICE A DAY WITH A MEAL Januvia [facility] 91055049333 100 MG Orally Active 1 tabl et Once a day Januvia [facility] 02628245186 100 MG Orally Inactive 1 tab let Once a day Calcium-Magnesium [facility] 74449944197 - Orally Active a s directed -Zinc Spironolactone [facility] 36308544490 25 MG Orally Active 1 tablet Once a day Fenofibrate [facility] 52012057998 145 MG Orally Active 1 tablet Once a day with food Results No Known Results Summary Purpose [employer] Submission
--- OUTSIDE RECORDS SUMMARY | 2020-08-23 00:20 | XMS REPORT | Continuity of Care Document ---
:1955 Author Organization [facility] t Address [address] [place] [address] Care Team Providers Name Role Phone Harvey DO [facility] Primary Care Physician [phone] Johnny RENEE Attending Clinician Jackie ESCALONA, R Attending Clinician Unavailable SHELLIE, (RANJIT) BRIAN Attending Clinician Unavailable SHELLIE, (RANJIT) BRIAN Admitting Clinician Unavailable Payers Payer Name Policy Type Policy Effective Date Expiration Date Sour ce Number MEDICAREMEDICARE A [id number] 2018 TITA Fay [id number] 2018-P 00:00:00 - [facility] [id number] 2019 TITA Luz SUPPLEMENT/INDIVIDUALG 00:00:00 - Medical ENERIC MEDICARE Center [id number]/ 10/2018-PresentMedigap Problems Condition Condition Condition Status Onset Resolution Last Treating Co mments Source Name Details Category Date Date Treatment Clinician Date S/P CABG x S/P CABG x Disease Active 2018-[address] 3 by 3 by Nya Ratliff on 00:00: Me dical 07/21/2019 07/21/2019 00 Ce nter NSTEMI NSTEMI Disease Active 2018-[address] [facility] (non-ST (non-ST 0-17 [facility] - elevated elevated 00:00: Medica l myocardial myocardial 00 Ce nter infarction infarction ) ) Acute on Acute on Disease Active [facility] chronic chronic [facility] - systolic systolic Medica l heart heart Center failure failure Acute Acute Disease Active [facility] respirator respirator kes - y y Medical insufficie insufficie Ce nter ncy ncy Acute Acute Disease Active [facility] blood loss blood loss [facility] anemia anemia [facility] Thrombocyt Thrombocyt Disease Active [facility] openia openia [facility] Hyperglyce Hyperglyce Disease Active [facility] kim kim [facility] Chronic Chronic Disease Active [facility] systolic systolic [facility] - heart heart Medical failure failure Center Allergies, Adverse Reactions, Alerts This patient has no known allergies or adverse reactions. Family History Family Member Diagnosis Comments Start Date Stop Date Source Natural father Diabetes [facility] Natural father Heart attack [facility] Natural father Stroke [facility] Natural mother Diabetes [facility] Natural mother Stroke [facility] Social History Social Habit Start Date Stop Date Quantity Comments Source Sex Assigned At [facility] Tobacco use and 2019-08-06 2019-08-06 Never used [facility] - exposure 00:00:00 00:00:00 Medical Center Alcohol intake 2019-08-06 2019-08-06 [facility]er [facility] - 00:[facility] 00:00:00 of alcohol Medical Center (finding) Alcohol Comment 2019-07-16 2019-07-[address] [facility] - 00:00:00 00:00:00 Medical Center Smoking Status Start Date Stop Date Source Never smoker [facility] edical Vader Medications Ordered Filled Start Stop Current Ordering Indication Dosage Frequency Signature Comments Components Source Medication Medication Date Date Medication? Clinician (SIG) Name Name Tresiba Tresiba Yes Benjamín Inject [address] FlexTouch FlexTouch 9-11 Gabriel units [facility] es - 00:00: Memoria 00 l Outpati ent Clinics gabapentin 2018-10 Yes 300mg [id number] Take [address] (NEURONTIN) 1-05 [id number] mg by L ukes - 300 MG 09:48: 3D mouth 3 Medical capsule 00 (three) Center times daily. liraglutide 2018-10 Yes type 2 1.2mg Inject 1.[address] 0.6 mg/0.1 1-05 diabetes mg [facility] - mL (18 mg/3 09:48: mellitus subcutaneo Medical mL) PnIj 00 usly. Vader topiramate 2018-10 Yes 50mg Q.5D Take [address] (TOPAMAX) 1-05 by mouth 2 Luke s - 50 MG 09:48: (two) Medical tablet 00 times Center daily. atorvastati 2018-10 Yes 40mg QD Take [address] n (LIPITOR) 1-05 by mouth Luke s - 40 MG 09:48: daily. Medical tablet 00 Center lisinopril 2018-10 Yes 5mg QD Take [address] (PRINIVIL,Z 1-05 by mouth Luke s - ESTRIL) 40 09:48: daily. Medic al MG tablet 00 Vader carvedilol 2018-10 Yes 6.25mg Take 6.[address] (COREG) 1-05 mg by Lukes - 6.25 MG 09:48: mouth 2 Medical tablet 00 (two) Center times daily with breakfast and dinner. metFORMIN 2018-10 Yes 1000mg Take 1,[address] (GLUCOPHAGE 1-05 mg by [facility]ukes - ) 1000 MG 09:48: mouth 2 Medic al tablet 00 (two) Center times daily with breakfast and dinner. melatonin 3 2018-10 Yes 5mg Take [address] mg Tab 1-05 by mouth [facility]ukes - tablet 09:48: every Medical 00 night as Center needed. clopidogrel 2018-10 2020- No 75mg QD Take [address] (PLAVIX) 75 0-27 10-26 tablet (75 L ukes - mg tablet 00:00: 23:59 mg total) Me dical 00 :00 by mouth Center daily. aspirin 81 2018-10- No 81mg QD Take [address] MG EC 0-27 10-26 tablet (81 [facility]ukes - tablet 00:00: 23:59 mg total) Medic al 00 :00 by mouth Center daily. spironolact 2018-10- No 25mg QD Take [address] [facility] one 0-27 10-26 tablet (25 [facility] - (ALDACTONE) 00:00: 23:59 mg total) Medical 25 MG 00 :00 by mouth Center tablet daily. furosemide 2018-10- No 40mg QD Take [address] (LASIX) 40 0-27 10-26 tablet (40 Melody kes - MG tablet 00:00: 23:59 mg total) Me dical 00 :00 by mouth Center daily. glimepiride 2018-10 Yes 4mg Take [address] [facility] (AMARYL) 4 0-26 tablet (4 Luke s - MG tablet 00:00: mg total) Med ical 00 by mouth Center every morning before breakfast. insulin 2018-10 Yes 15U Q.5D Inject 15 [facility] t glargine 0-26 Units Lukes - (LANTUS 00:00: subcutaneo Medi purvi SOLOSTAR 00 usly 2 Center U-100 (two) INSULIN) times 100 unit/mL daily. (3 mL) InPn senna-docus 2018-10- No 1{tbl} Q.5D Take [address] ate 0-26 10-25 tablet by [facility]ukes - (SENOKOT S) 00:00: 23:59 mouth 2 Me dical 8.6-50 mg 00 :00 (two) Center per tablet times daily. Victoza Victoza Yes Benjamín as [facility] directed [facility] ent Clinics Isosorbide Isosorbide Yes Benjamín [address] Mononitrate Mononitrate Gabriel in the [facility]ukes - ER ER morning [facility] Furosemide Furosemide Yes Benjamín [address] [facility] [address] [facility] ent Clinics Nitroglycer Nitroglycer Yes Benjamín as [facility] in in Gabriel directed kes - [facility] Gabapentin Gabapentin Yes Benjamín [address] [facility] Januvia Januvia Yes Benjamín [address] [facility] Coreg Coreg Yes Benjamín [address] [facility]ics Aspir-81 Aspir-81 Yes Benjamín [address] [facility] Contour Contour Yes Benjamín n/s [facility] next next Gabriel [facility] - testing testing Memoria strips strips l [facility] Calcium-Mag Calcium-Mag Yes Benjamín as [facility] nesium-Zinc nesium-Zinc Gabriel directed [facility] - [facility] ent Clinics Lisinopril Lisinopril Yes Benjamín [address] [facility] Magnesium Magnesium Yes Benjamín [address] Oxide Oxide Gabriel as needed [facility] - [facility]ics Lipitor Lipitor Yes Benjamín [address] [facility] Fenofibrate Fenofibrate Yes Benjamín [address] [facility] with food [facility] - [facility] ent Clinics Carvedilol Carvedilol Yes Benjamín [address] [facility]ics Clopidogrel Clopidogrel Yes Benjamín TK [address] [address] Bisulfate Bisulfate Gabriel D Luke s - [facility] ent Clinics Glimepiride Glimepiride Yes Benjamín TAKE ONE [facility] TABLET BY Lukes - MOUTH Memoria TWICE A l DAY WITH Outpati BREAKFAST ent OR THE Clinics FIRST MAIN MEAL OF THE DAY Multivitami Multivitami Yes Benjamín as [facility] n Adults n Adults Gabriel directed Melody kes - [facility] ent Clinics Spironolact Spironolact Yes Benjamín [address] [facility] one one Gabriel [facility] ent Clinics Metformin Metformin Yes Benjamín [address] HCl HCl Gabriel with meals [facility] - [facility] ent Clinics Tamsulosin Tamsulosin Yes Benjamín [address] HCl HCl Gabriel [facility] ent Clinics Glimepiride Glimepiride Yes Benjamín [address] [facility] with Lukes - breakfast Memoria or the first main Outpati meal of ent the day Clinics Metformin Metformin Yes Benjamín TAKE ONE [facility] HCl HCl Gabriel TABLET BY Lukes - MOUTH Memoria TWICE A l DAY WITH A Outpati MEAL ent Clinics Immunizations Ordered Filled Immunization Date Status Comments [facility] e Immunization Name Name Prevnar 13 Prevnar 13 2019-07-[address] [facility] - -Pneumonia Vaccine -Pneumonia Vaccine 00:00:00 [facility] FLUZONE HIGH DOSE FLUZONE HIGH DOSE 2019-06-[address] [facility] - OVER 65 OVER 65 00:00:00 [facility] Procedures This patient has no known procedures. Plan of Care Planned Activity Planned Date Details Comments Source Future Scheduled 2020-06-01 INFLUENZA VACCINE (#1) [facility] - Test 00:00:00 [code = INFLUENZA Medical Ce nter VACCINE (#1)] Future Scheduled 2020-01-[address] [facility] - Test 00:00:00 WELLNESS (YEAR 2 or Medical Center FIRST YEAR if no IPPE) [code = MEDICARE ANNUAL WELLNESS (YEAR 2 or FIRST YEAR if no IPPE)] Future Scheduled 2019 PNEUMOCOCCAL 65+ YRS [facility] - Test 00:00:00 (1 of 1 - Medical Center [id number] PCV13) [code = PNEUMOCOCCAL 65+ YRS (1 of 1 - [id number] PCV13)] Future Scheduled [address] [facility] es - Test 00:00:00 malignant neoplasm of Medica Center colon (procedure) [code = 359931405] Encounters Start End Encounter Admission Attending Care Care Encounter Source Date/Time Date/Time Type Type Clinicians Facility Department ID 2020-08-19 2020-08-19 Refill [facility] [id number] 00:00:00 00:00:00 Tiffanie [place] [id number] [place] [id number] Professio [id number] [address] 2020-08-04 2020-08-04 Telephone [facility] [id number] 00:00:00 00:00:00 Qialdghazal [place] [id number] [place] [id number] Professio [id number] [address] 2020-07-28 2020-07-28 Refill [facility] [id number] 00:00:00 00:00:00 Qiangjun [place] [id number] [place] [id number] Professio [id number] [address] 2020-07-28 2020-07-28 Telephone [facility] [id number] 00:00:00 00:00:00 Qiangjun [place] [id number] [place] [id number] Professio [id number] [facility] 2020-07-28 2020-07-28 Telephone Jhonny [facility] [id number] 00:00:00 00:00:00 Formerly [facility] [id number] Clear [id number] [place] [id number] [place] [address] Office Building 2020-07-14 2020-07-25 Office Johnny [facility] [id number] 14:32:25 10:29:52 Visit Tiffanie [place] [id number] [place] [id number] Professio [id number] [address] 2020-07-12 2020-07-12 Outpatient [facility] [id number] [facility] 2020-07-02 2020-07-02 [facility] [id number] [facility] 2020-06-30 2020-06-30 Outpatient [facility] [id number] [facility] 2020-06-28 2020-06-28 Outpatient [facility] [id number] [facility] 2020-06-11 2020-06-11 [facility] [id number] 08:30:00 08:30:00 [address] [employer] [facility] l Medicine Outpati ent Clinics 2020-05-04 2020-05-04 [facility] [id number] 09:45:00 09:45:00 t [employer] [facility] l Medicine Outpati ent Clinics 2020-04-05 2020-04-05 [facility] [id number] 10:30:00 10:30:00 t Specialty/U Melody kes - Specialty rology [facility] Clinic Outpati ent Clinics 2020-03-31 2020-03-31 [facility] [id number] 16:31:00 16:31:00 t Howe [employer] [facility] Medicine Medicine Outpati ent Clinics 2020-03-24 2020-03-24 [facility] [id number] 08:42:00 08:42:00 t Howe [employer] s [employer] [facility] l Medicine Outpati ent Clinics 2020-03-16 2020-03-16 [facility] [id number] 14:43:00 14:43:00 t Howe [employer] [facility] Medicine l Medicine Outpati ent Clinics 2020-03-10 2020-03-10 [facility] [id number] 10:45:00 10:45:00 t [employer] [facility] Medicine Outpati ent Clinics 2020-02-04 2020-02-04 [facility] [id number] 14:00:00 14:00:00 t [employer] [facility] Medicine Outpati ent Clinics 2020-02-04 2020-02-04 [facility] [id number] 14:00:00 14:00:00 t [employer] [facility] Medicine Outpati ent Clinics 2020-01-05 2020-01-05 [facility] [id number] 10:00:00 10:00:00 t Specialty/U Melody kes - Specialty rology [facility] a /Urology Clinic l Clinic Outpati ent Clinics 2019-12-10 2019-12-10 [facility] [id number] 10:15:00 10:15:00 t Howe [employer] [facility] Medicine Outpati ent Clinics 2019-12-09 2019-12-09 [facility] [id number] 13:15:00 13:15:00 t Howe [employer] [facility] Medicine l Medicine Outpati ent Clinics 2019-11-10 2019-11-10 [facility] [id number] 09:06:00 09:06:00 t Specialty/U Melody kes - Specialty rology Memori a /Urology Clinic l Clinic Outpati ent Clinics 2019-11-06 2019-11-06 [facility] [id number] 11:29:00 11:29:00 t Specialty/U Melody kes - Specialty rology Memori a /Urology Clinic l Clinic Outpati ent Clinics 2019-10-27 2019-10-27 [facility] [id number] 16:27:00 16:27:00 t Specialty/U Melody kes - Specialty rology Memori a /Urology Clinic l Clinic Outpati ent Clinics 2019-10-23 2019-10-23 [facility] [id number] 10:45:00 10:45:00 t Specialty/U Melody kes - Specialty rology Mem[facility] a /Urology Clinic l Clinic Outpati ent Clinics 2019-10-23 2019-10-23 [facility] [id number] 08:45:00 08:45:00 t [employer] [facility] l Medicine Outpati ent Clinics 2019-10-06 2019-10-06 [facility] [id number] 10:30:00 10:30:00 t Specialty/U Melody kes - Specialty rology Memori a /Urology Clinic l Clinic Outpati ent Clinics 2019-09-22 2019-09-22 [facility] [id number] 10:43:00 10:43:00 t [employer] [facility] l Medicine Outpati ent Clinics 2019-09-10 2019-09-10 [facility] [id number] 15:00:00 15:00:00 t [employer] [facility] l Medicine Outpati ent Clinics 2019-09-10 2019-09-10 [facility] [id number] 10:45:00 10:45:00 t Specialty/U Melody kes - Specialty rology Memori a /Urology Clinic l Clinic Outpati ent Clinics 2019-09-03 2019-09-03 [facility] [id number] 09:30:00 09:30:00 t [employer] [facility] l Medicine Outpati ent Clinics 2019-08-27 2019-08-27 [facility] [id number] 11:30:00 11:30:00 t Specialty/U Melody kes - Specialty rology [facility] a /Urology Clinic l Clinic Outpati ent Clinics 2019-08-20 2019-08-20 [facility] [id number] 16:09:00 16:09:00 t Howe Howe [employer] Luke s - Drive [facility] Medicine l Medicine Outpati ent Clinics 2019-07-10 2019-07-10 [facility] [id number] 11:00:00 11:00:00 t Howe Howe [employer] Luke s - Drive [facility] l Medicine Outpati ent Clinics 2019-07-03 2019-07-03 [facility] [id number] 08:00:00 08:00:00 t Howe Howe [employer] Luke s - Drive [facility] l Medicine Outpati ent Clinics 2019-06-12 2019-06-12 [facility] [id number] 11:22:00 11:22:00 t Howe Howe [employer] Luke s - Drive [facility] Medicine l Medicine Outpati ent Clinics 2019-06-10 2019-06-10 [facility] [id number] 11:15:00 11:15:00 t Howe Howe [employer] Luke s - Drive [facility] Medicine l Medicine Outpati ent Clinics 2019-06-04 2019-06-04 [facility] [id number] 15:22:00 15:22:00 t Howe Howe [employer] Luke s - Drive [facility] Medicine l Medicine Outpati ent Clinics 2019-06-04 2019-06-04 [facility] [id number] 08:15:00 08:15:00 t Howe Howe [employer] Luke s - Drive [facility] l Medicine Outpati ent Clinics 2019-06-03 2019-06-03 [facility] [id number] 09:30:00 09:30:00 t Howe Howe [employer] Luke s - Drive [facility] Medicine l Medicine Outpati ent Clinics 2019-05-15 2019-05-15 [facility] [id number] 16:23:00 16:23:00 t Howe [employer] s - [employer] [facility] Medicine Outpati ent Clinics 2019-03-27 2019-03-27 [facility] [id number] 13:11:00 13:11:00 t Howe [employer] s - [employer] [facility] Medicine Outpati ent Clinics 2019-03-27 2019-03-27 [facility] [id number] 10:15:00 10:15:00 t [employer] s - [employer] [facility] Medicine Outpati ent Clinics 2019-03-19 2019-03-19 [facility] [id number] 14:30:00 14:30:00 t [employer] s - [employer] [facility] Medicine Outpati ent Clinics 2018-12-25 2018-12-25 [facility] [id number] 16:00:00 16:00:00 t [employer] [facility] Medicine Outpati ent Clinics 2018-11-06 2018-11-06 [facility] [id number] 08:00:00 08:00:00 t [employer] [facility] Medicine Outpati ent Clinics 2018-10-02 2018-10-02 [facility] [id number] 15:45:00 15:45:00 t [employer] [facility] Medicine Outpati ent Clinics 2018-03-21 2018-03-21 [facility] [id number] 08:15:00 08:15:00 t [employer] s [employer] [facility] Medicine Outpati ent Clinics 2017-12-19 2017-12-19 [facility] [id number] 08:45:00 08:45:00 t [employer] [facility] Medicine Outpati ent Clinics Results Test Description Test Time Test Comments Results Result Comments Source POCT-GLUCOSE METER 2019-07-26 08:24:00 Test Item Value Reference Range Interpretation Comme nts POC-GLUCOSE METER (BEAKER) 166 mg/dL 70-110 H : Notified RN/MD: TESTED AT [facility] (test code = 1538) [address] [facility], [address]: Data Coordinator/Techni danay ID = [id number] for MANSI BALL POCT-GLUCOSE [id number] 22:46:00 Test Item Value Reference Range Interpretation Comments POC-GLUCOSE METER 173 mg/dL 70-110 H : TESTED A T [facility] 6720 (BEAKER) (test code = [facility], 1538) [address]: Data Coordinator/Techni danay ID = [id number] for Geovanny Xavier se POCT-GLUCOSE [id number] 18:44:00 Test Item Value Reference Range Interpretation Comments POC-GLUCOSE METER 185 mg/dL 70-110 H : TESTED A T [facility] 6720 (BEAKER) (test code = [facility], 153) [address]: Data Coordinator/Techni danay ID = [id number] for CO RTEZ, SHELLY POCT-GLUCOSE [id number] 17:05:00 Test Item Value Reference Range Interpretation Comments POC-GLUCOSE METER 214 mg/dL 70-110 H : TESTED A T [facility] 6720 (BEAKER) (test code = [facility], 153) [address]: Data Coordinator/Techni danay ID = [id number] for CO RTEZ, SHELLY CBC W/PLT COUNT & AUTO [id number] 16:37:00 Test Item Value Reference Range Interpretation Comments WHITE BLOOD CELL COUNT (BEAKER) 8.7 K/ L 3.5-10.5 (test code = 775) RED BLOOD CELL COUNT (BEAKER) 2.79 M/ L 4.63-6.08 L (test code = 761) HEMOGLOBIN (BEAKER) (test code = 9.0 GM/DL 13.7-17.5 L 410) HEMATOCRIT (BEAKER) (test code = 26.2 % 40.1-51.0 L 411) MEAN CORPUSCULAR VOLUME (BEAKER) 93.9 fL 79.0-92.2 H (test code = 753) MEAN CORPUSCULAR HEMOGLOBIN 32.3 pg 25.7-32.2 H (BEAKER) (test code = 751) MEAN CORPUSCULAR HEMOGLOBIN CONC 34.4 GM/DL 32.3-36.5 (BEAKER) (test code = 752) RED CELL DISTRIBUTION WIDTH 13.3 % 11.6-14.4 (BEAKER) (test code = 412) PLATELET COUNT (BEAKER) (test 219 K/CU MM 150-450 code = 756) MEAN PLATELET VOLUME (BEAKER) 10.5 fL 9.4-12.4 (test code = 754) NUCLEATED RED BLOOD CELLS 0 /100 WBC 0-0 (BEAKER) (test code = 413) NEUTROPHILS RELATIVE PERCENT 66 % (BEAKER) (test code = 429) LYMPHOCYTES RELATIVE PERCENT 21 % (BEAKER) (test code = 430) MONOCYTES RELATIVE PERCENT 10 % (BEAKER) (test code = 431) EOSINOPHILS RELATIVE PERCENT 2 % (BEAKER) (test code = 432) BASOPHILS RELATIVE PERCENT 0 % (BEAKER) (test code = 437) NEUTROPHILS ABSOLUTE COUNT 5.71 K/ L 1.78-5.38 H (BEAKER) (test code = 670) LYMPHOCYTES ABSOLUTE COUNT 1.87 K/ L 1.32-3.57 (BEAKER) (test code = 414) MONOCYTES ABSOLUTE COUNT (BEAKER) 0.88 K/ L 0.30-0.82 H (test code = 415) EOSINOPHILS ABSOLUTE COUNT 0.21 K/ L 0.04-0.54 (BEAKER) (test code = 416) BASOPHILS ABSOLUTE COUNT (BEAKER) 0.03 K/ L 0.01-0.08 (test code = 417) IMMATURE GRANULOCYTES-RELATIVE 0 % 0-1 PERCENT (BEAKER) (test code = 2801) POCT-GLUCOSE [id number] 14:13:00 Test Item Value Reference Range Interpretation Comments POC-GLUCOSE METER 194 mg/dL 70-110 H : TESTED A T [facility] 6720 (BEAKER) (test code = [facility], 1538) [address]: Data Coordinator/Techni danay ID = [id number] for EITAN ETO COX POCT-GLUCOSE [id number] 12:08:00 Test Item Value Reference Range Interpretation Comments POC-GLUCOSE METER 228 mg/dL 70-110 H : TESTED A T [facility] 6720 (BEAKER) (test code = [facility], 1538) [address]: Data Coordinator/Techni danay ID = [id number] for CHAPO HERNANDEZ [id number] 10:00:00 Test Item Value Reference Range Interpretation Comments PHOSPHORUS (BEAKER) (test code = 2.7 mg/dL 2.3-4.7 604) [id number] 10:00:00 Test Item Value Reference Range Interpretation Comments MAGNESIUM (BEAKER) (test code = 1.6 mg/dL 1.6-2.6 627) BASIC METABOLIC [id number] 10:00:00 Test Item Value Reference Range Interpretation Comments SODIUM (BEAKER) 133 meq/L 136-145 L (test code = 381) POTASSIUM (BEAKER) 4.0 meq/L 3.5-5.1 (test code = 379) CHLORIDE (BEAKER) 100 meq/L 98-107 (test code = 382) CO2 (BEAKER) (test 25 meq/L 22-29 code = 355) BLOOD UREA NITROGEN 23 mg/dL 7-21 H (BEAKER) (test code = 354) CREATININE (BEAKER) 0.87 mg/dL 0.57-1.25 (test code = 358) GLUCOSE RANDOM 209 mg/dL 70-105 H (BEAKER) (test code = 652) CALCIUM (BEAKER) 8.8 mg/dL 8.4-10.2 (test code = 697) EGFR (BEAKER) (test 88 mL/min/1.73 ESTIMA LANDON GFR IS code = 1092) sq m NOT ACCURATE CREATININE CLEARANCE IN PREDICTING GLOMERULAR FILTRATION RATE . ESTIMATED GFR I S NOT APPLICABLE FOR DIALYSIS PATIEN TS. POCT-GLUCOSE [id number] 07:47:00 Test Item Value Reference Range Interpretation Comments POC-GLUCOSE METER 146 mg/dL 70-110 H : TESTED A T [facility] 6720 (BEAKER) (test code = [facility] [employer] [facility], 1538) 00498: Data Coordinator/Techni danay ID = [id number] for CHAPO HERNANDEZ POCT-GLUCOSE [id number] 21:28:00 Test Item Value Reference Range Interpretation Comments POC-GLUCOSE METER 218 mg/dL 70-110 H : TESTED A T [facility] 6720 (BEAKER) (test code = [facility] [employer] [facility], 1538) 50758: Data Coordinator/Techni danay ID = [id number] for JUN CLAIRE POCT-GLUCOSE [id number] 18:40:00 Test Item Value Reference Range Interpretation Comments POC-GLUCOSE METER 328 mg/dL 70-110 H : TESTED A T [facility] 6720 (BEAKER) (test code = [facility], 1538) 53002: Data Coordinator/Techni danay ID = [id number] for JOSEFINA CHRIS POCT-GLUCOSE [id number] 18:30:00 Test Item Value Reference Range Interpretation Comments POC-GLUCOSE METER 304 mg/dL 70-110 H : TESTED A T [facility] 6720 (BEAKER) (test code = [facility] [employer] [facility], 1538) 08367: Data Coordinator/Techni danay ID = [id number] for JIMENA MCKEON RAD, CHEST, 1 VIEW, NON [id number] 12:14:00Reason for exam:->Post ACBShould this be performed at the bedside?->YesFINAL REPORT CLINICAL HISTORY: Post ACB TECHNIQUE: 1 view of the chest. COMPARISON: 07/23/2019 IMPRESSION: A trace left apical pneumothorax appears to have resolved. There is increased left lower lung consolidation. Pulmonary vascular congestion is again seen. The cardiomediastinal silhouette is magnified by technique with sternotomy wires and a pacemaker. Signed: Laura Leyva MDReport Verified Date/Time: 07/24/2019 12:14:16 Reading Location: [facility] Radiology ReadingRoom POCT-GLUCOSE [id number] 12:09:00 Test Item Value Reference Range Interpretation Comments POC-GLUCOSE METER 290 mg/dL 70-110 H : TESTED A T [facility] 6720 (BEAKER) (test code = [facility] [employer] [facility], 1538) 76630: Data Coordinator/Techni danay ID = [id number] for JIMENA MCKEON POCT-GLUCOSE [id number] 08:25:00 Test Item Value Reference Range Interpretation Comments POC-GLUCOSE METER 186 mg/dL 70-110 H : TESTED A T [facility] 6720 (BEAKER) (test code = [facility] [employer] [facility], 1538) 94343: Data Coordinator/Techni danay ID = [id number] for JIMENA MCKEON OXYGEN SATURATION, [id number] 06:48:00 Test Item Value Reference Range Interpretation Comments O2 SATURATION (MEASURED) (BEAKER) 97.6 % (test code = 1455) [id number] 04:48:00 Test Item Value Reference Range Interpretation Comments PHOSPHORUS (BEAKER) (test code = 1.4 mg/dL 2.3-4.7 LL 604) [id number] 04:42:00 Test Item Value Reference Range Interpretation Comments MAGNESIUM (BEAKER) (test code = 1.8 mg/dL 1.6-2.6 627) BASIC METABOLIC [id number] 04:42:00 Test Item Value Reference Range Interpretation Comments SODIUM (BEAKER) 134 meq/L 136-145 L (test code = 381) POTASSIUM (BEAKER) 4.0 meq/L 3.5-5.1 (test code = 379) CHLORIDE (BEAKER) 104 meq/L 98-107 (test code = 382) CO2 (BEAKER) (test 23 meq/L 22-29 code = 355) BLOOD UREA NITROGEN 19 mg/dL 7-21 (BEAKER) (test code = 354) CREATININE (BEAKER) 0.88 mg/dL 0.57-1.25 (test code = 358) GLUCOSE RANDOM 230 mg/dL 70-105 H (BEAKER) (test code = 652) CALCIUM (BEAKER) 8.6 mg/dL 8.4-10.2 (test code = 697) EGFR (BEAKER) (test 87 mL/min/1.73 ESTIMA LANDON GFR IS code = 1092) sq m NOT ACCURATE CREATININE CLEARANCE IN PREDICTING GLOMERULAR FILTRATION RATE . ESTIMATED GFR I S NOT APPLICABLE FOR DIALYSIS PATIEN TS. CBC W/PLT COUNT & AUTO [id number] 04:17:00 Test Item Value Reference Range Interpretation Comments WHITE BLOOD CELL COUNT (BEAKER) 9.4 K/ L 3.5-10.5 (test code = 775) RED BLOOD CELL COUNT (BEAKER) 2.53 M/ L 4.63-6.08 L (test code = 761) HEMOGLOBIN (BEAKER) (test code = 8.0 GM/DL 13.7-17.5 L 410) HEMATOCRIT (BEAKER) (test code = 23.4 % 40.1-51.0 L 411) MEAN CORPUSCULAR VOLUME (BEAKER) 92.5 fL 79.0-92.2 H (test code = 753) MEAN CORPUSCULAR HEMOGLOBIN 31.6 pg 25.7-32.2 (BEAKER) (test code = 751) MEAN CORPUSCULAR HEMOGLOBIN CONC 34.2 GM/DL 32.3-36.5 (BEAKER) (test code = 752) RED CELL DISTRIBUTION WIDTH 13.3 % 11.6-14.4 (BEAKER) (test code = 412) PLATELET COUNT (BEAKER) (test 135 K/CU MM 150-450 L code = 756) MEAN PLATELET VOLUME (BEAKER) 11.8 fL 9.4-12.4 (test code = 754) NUCLEATED RED BLOOD CELLS 0 /100 WBC 0-0 (BEAKER) (test code = 413) NEUTROPHILS RELATIVE PERCENT 70 % (BEAKER) (test code = 429) LYMPHOCYTES RELATIVE PERCENT 15 % (BEAKER) (test code = 430) MONOCYTES RELATIVE PERCENT 12 % (BEAKER) (test code = 431) EOSINOPHILS RELATIVE PERCENT 1 % (BEAKER) (test code = 432) BASOPHILS RELATIVE PERCENT 0 % (BEAKER) (test code = 437) NEUTROPHILS ABSOLUTE COUNT 6.64 K/ L 1.78-5.38 H (BEAKER) (test code = 670) LYMPHOCYTES ABSOLUTE COUNT 1.42 K/ L 1.32-3.57 (BEAKER) (test code = 414) MONOCYTES ABSOLUTE COUNT (BEAKER) 1.12 K/ L 0.30-0.82 H (test code = 415) EOSINOPHILS ABSOLUTE COUNT 0.10 K/ L 0.04-0.54 (BEAKER) (test code = 416) BASOPHILS ABSOLUTE COUNT (BEAKER) 0.03 K/ L 0.01-0.08 (test code = 417) IMMATURE GRANULOCYTES-RELATIVE 1 % 0-1 PERCENT (BEAKER) (test code = 2801) POCT-GLUCOSE [id number] 21:21:00 Test Item Value Reference Range Interpretation Comments POC-GLUCOSE METER 277 mg/dL 70-110 H : TESTED A T [facility] 6720 (BEAKER) (test code = [facility] [place], 1538) 47793: Data Coordinator/Techni danay ID = [id number] for JIE TAYERIC JUN POCT-GLUCOSE [id number] 17:11:00 Test Item Value Reference Range Interpretation Comments POC-GLUCOSE METER 272 mg/dL 70-110 H : [facility] (test code = [facility] [employer] [facility], 1538) 73404: Data Coordinator/Techni danay ID = [id number] for JIMENA MCKEON POCT-GLUCOSE [id number] 12:53:00 Test Item Value Reference Range Interpretation Comments POC-GLUCOSE METER 214 mg/dL 70-110 H : Notified RN/MD: (ILENE) (test code = TESTED AT [facility] 6720 1538) [facility], [address]: Data Coordinator/Techni danay ID = [id number] for CHAPO HERNANDEZ POCT-GLUCOSE [id number] 12:51:00 Test Item Value Reference Range Interpretation Comments POC-GLUCOSE METER 310 mg/dL 70-110 H : [facility] (test code = [facility] [place] [facility], 1538) 37908: Data Coordinator/Techni danay ID = [id number] for JIMENA MCKEON RAD, CHEST, 1 VIEW, NON [id number] 09:52:00Reason for exam:->Post ACBShould this be performed [...] sternotomy wires and a pacemaker. Signed: Laura Leyva MDReport Verified Date/Time: 07/23/2019 09:52:55 Reading Location: [facility] Radiology Reading Room POCT-GLUCOSE [id number] 07:50:00 Test Item Value Reference Range Interpretation Comments POC-GLUCOSE METER 209 mg/dL 70-110 H : [facility] ([facility] (test code = [facility], 1538) 82641: Data Coordinator/Techni danay ID = [id number] for JIMENA MCKEON [id number] 06:47:00 Test Item Value Reference Range Interpretation Comments PHOSPHORUS (BEAKER) (test code = 2.4 mg/dL 2.3-4.7 604) [id number] 06:47:00 Test Item Value Reference Range Interpretation Comments MAGNESIUM (BEAKER) (test code = 2.0 mg/dL 1.6-2.6 627) BASIC METABOLIC [id number] 06:47:00 Test Item Value Reference Range Interpretation Comments SODIUM (BEAKER) 131 meq/L 136-145 L (test code = 381) POTASSIUM (BEAKER) 4.4 meq/L 3.5-5.1 (test code = 379) CHLORIDE (BEAKER) 103 meq/L 98-107 (test code = 382) CO2 (BEAKER) (test 24 meq/L 22-29 code = 355) BLOOD UREA NITROGEN 20 mg/dL 7-21 (BEAKER) (test code = 354) CREATININE (BEAKER) 1.03 mg/dL 0.57-1.25 (test code = 358) GLUCOSE RANDOM 218 mg/dL 70-105 H (BEAKER) (test code = 652) CALCIUM (BEAKER) 8.3 mg/dL 8.4-10.2 L (test code = 697) EGFR (BEAKER) (test 72 mL/min/1.73 ESTIMA LANDON GFR IS code = 1092) sq m NOT ACCURATE CREATININE CLEARANCE IN PREDICTING GLOMERULAR FILTRATION RATE . ESTIMATED GFR I S NOT APPLICABLE FOR DIALYSIS PATIEN TS. OXYGEN SATURATION, [id number] 06:02:00 Test Item Value Reference Range Interpretation Comments O2 SATURATION (MEASURED) (BEAKER) 74.3 % (test code = 1455) CBC W/PLT COUNT & AUTO [id number] 05:44:00 Test Item Value Reference Range Interpretation Comments WHITE BLOOD CELL COUNT (BEAKER) 10.7 K/ L 3.5-10.5 H (test code = 775) RED BLOOD CELL COUNT (BEAKER) 2.67 M/ L 4.63-6.08 L (test code = 761) HEMOGLOBIN (BEAKER) (test code = 8.4 GM/DL 13.7-17.5 L 410) HEMATOCRIT (BEAKER) (test code = 25.5 % 40.1-51.0 L 411) MEAN CORPUSCULAR VOLUME (BEAKER) 95.5 fL 79.0-92.2 H (test code = 753) MEAN CORPUSCULAR HEMOGLOBIN 31.5 pg 25.7-32.2 (BEAKER) (test code = 751) MEAN CORPUSCULAR HEMOGLOBIN CONC 32.9 GM/DL 32.3-36.5 (BEAKER) (test code = 752) RED CELL DISTRIBUTION WIDTH 13.4 % 11.6-14.4 (BEAKER) (test code = 412) PLATELET COUNT (BEAKER) (test 106 K/CU MM 150-450 L code = 756) MEAN PLATELET VOLUME (BEAKER) 12.1 fL 9.4-12.4 (test code = 754) NUCLEATED RED BLOOD CELLS 0 /100 WBC 0-0 (BEAKER) (test code = 413) NEUTROPHILS RELATIVE PERCENT 70 % (BEAKER) (test code = 429) LYMPHOCYTES RELATIVE PERCENT 14 % (BEAKER) (test code = 430) MONOCYTES RELATIVE PERCENT 14 % (BEAKER) (test code = 431) EOSINOPHILS RELATIVE PERCENT 1 % (BEAKER) (test code = 432) BASOPHILS RELATIVE PERCENT 0 % (BEAKER) (test code = 437) NEUTROPHILS ABSOLUTE COUNT 7.49 K/ L 1.78-5.38 H (BEAKER) (test code = 670) LYMPHOCYTES ABSOLUTE COUNT 1.52 K/ L 1.32-3.57 (BEAKER) (test code = 414) MONOCYTES ABSOLUTE COUNT (BEAKER) 1.50 K/ L 0.30-0.82 H (test code = 415) EOSINOPHILS ABSOLUTE COUNT 0.06 K/ L 0.04-0.54 (BEAKER) (test code = 416) BASOPHILS ABSOLUTE COUNT (BEAKER) 0.01 K/ L 0.01-0.08 (test code = 417) IMMATURE GRANULOCYTES-RELATIVE 1 % 0-1 PERCENT (BEAKER) (test code = 2801) POCT-GLUCOSE [id number] 21:26:00 Test Item Value Reference Range Interpretation Comments POC-GLUCOSE METER 259 mg/dL 70-110 H : TESTED A T [facility] 6720 (BEAKER) (test code = [facility] [place], 1538) 17500: Data Coordinator/Techni danay ID = [id number] for VITOR HACKETT POCT-GLUCOSE [id number] 12:05:00 Test Item Value Reference Range Interpretation Comments POC-GLUCOSE METER 142 mg/dL 70-110 H TESTED AT [place] [address] (BANNER) (test code = JEANET[facility] Goode [facility] 1538) [address] POCT-GLUCOSE [id number] 12:01:00 Test Item Value Reference Range Interpretation Comments POC-GLUCOSE METER 146 mg/dL 70-110 H TESTED AT [place] [address] (BANNER) (test code = [facility] 1538) [address] POCT-GLUCOSE [id number] 12:01:00 Test Item Value Reference Range Interpretation Comments POC-GLUCOSE METER 159 mg/dL 70-110 H TESTED AT [place] [address] (BANNER) (test code = [facility] 1538) [address] POCT-GLUCOSE [id number] 07:46:00 Test Item Value Reference Range Interpretation Comments POC-GLUCOSE METER 144 mg/dL 70-110 H TESTED AT [place] [address] (BANNER) (test code = [facility] 1538) [address] POCT-GLUCOSE [id number] 07:46:00 Test Item Value Reference Range Interpretation Comments POC-GLUCOSE METER 139 mg/dL 70-110 H TESTED AT [place] [address] (BANNER) (test code = [facility] 1538) [address] POCT-GLUCOSE [id number] 07:46:00 Test Item Value Reference Range Interpretation Comments POC-GLUCOSE METER 154 mg/dL 70-110 H TESTED AT [place] [address] (BANNER) (test code = [facility] 1538) [address] RAD, CHEST, 1 VIEW, NON [id number] 06:51:00Reason for exam:->Post ACBShould this be performed at the bedside?->YesFINAL REPORT CLINICAL INDICATION: Postop Comparison: 07/21/2019 The cardiomed iastinal contours are stable. The lung volumes remain low but are stable after extubation. Central pulmonary vascular congestion and bilateral parenchymal and left pleural opacities are similar to previous. There is no pneumothorax. Remaining support lines are stable. Signed: Carlos A Barrera MDReport Verified Date/Time: 07/22/2019 06:51:04 [id number] 04:53:00 Test Item Value Reference Range Interpretation Comments PHOSPHORUS (BEAKER) (test code = 3.0 mg/dL 2.3-4.7 604) [id number] 04:53:00 Test Item Value Reference Range Interpretation Comments MAGNESIUM (BEAKER) (test code = 1.5 mg/dL 1.6-2.6 L 627) BASIC METABOLIC [id number] 04:53:00 Test Item Value Reference Range Interpretation Comments SODIUM (BEAKER) 135 meq/L 136-145 L (test code = 381) POTASSIUM (BEAKER) 4.2 meq/L 3.5-5.1 (test code = 379) CHLORIDE (BEAKER) 110 meq/L 98-107 H (test code = 382) CO2 (BEAKER) (test 19 meq/L 22-29 L code = 355) BLOOD UREA NITROGEN 19 mg/dL 7-21 (BEAKER) (test code = 354) CREATININE (BEAKER) 0.87 mg/dL 0.57-1.25 (test code = 358) GLUCOSE RANDOM 155 mg/dL 70-105 H (BEAKER) (test code = 652) CALCIUM (BEAKER) 8.0 mg/dL 8.4-10.2 L (test code = 697) EGFR (BEAKER) (test 88 mL/min/1.73 ESTIMA LANDON GFR IS code = 1092) sq m NOT ACCURATE CREATININE CLEARANCE IN PREDICTING GLOMERULAR FILTRATION RATE . ESTIMATED GFR I S NOT APPLICABLE FOR DIALYSIS PATIEN TS. BLOOD GAS, [id number] 04:50:00 Test Item Value Reference Range Interpretation Comments PH ARTERIAL (BEAKER) (test code = 7.36 7.35-7.45 383) PCO2 ARTERIAL (BEAKER) (test code 37 mmHg 35-45 = 384) PO2 ARTERIAL (BEAKER) (test code 117 mmHg 80-90 H = 385) O2 SATURATION ARTERIAL (BEAKER) 98.1 % 96.0-97.0 H (test code = 386) HCO3 ARTERIAL (BEAKER) (test code 21 mmol/L 21-29 = 388) BASE EXCESS ARTERIAL (BEAKER) -4.0 mmol/L -2.0-3.0 L (test code = 387) PATIENT TEMPERATURE (BEAKER) 37.4 C (test code = 1818) FIO2 (BEAKER) (test code = 1819) 36.0 % LACTIC ACID, [id number] 04:46:00 Test Item Value Reference Range Interpretation Comments LACTATE BLOOD ARTERIAL (2) 1.2 mmol/L 0.5-2.2 (BEAKER) (test code = 2874) CBC W/PLT COUNT & AUTO [id number] 04:43:00 Test Item Value Reference Range Interpretation Comments WHITE BLOOD CELL COUNT (BEAKER) 10.8 K/ L 3.5-10.5 H (test code = 775) RED BLOOD CELL COUNT (BEAKER) 2.91 M/ L 4.63-6.08 L (test code = 761) HEMOGLOBIN (BEAKER) (test code = 9.2 GM/DL 13.7-17.5 L 410) HEMATOCRIT (BEAKER) (test code = 26.8 % 40.1-51.0 L 411) MEAN CORPUSCULAR VOLUME (BEAKER) 92.1 fL 79.0-92.2 (test code = 753) MEAN CORPUSCULAR HEMOGLOBIN 31.6 pg 25.7-32.2 (BEAKER) (test code = 751) MEAN CORPUSCULAR HEMOGLOBIN CONC 34.3 GM/DL 32.3-36.5 (BEAKER) (test code = 752) RED CELL DISTRIBUTION WIDTH 13.1 % 11.6-14.4 (BEAKER) (test code = 412) PLATELET COUNT (BEAKER) (test 142 K/CU MM 150-450 L code = 756) MEAN PLATELET VOLUME (BEAKER) 11.3 fL 9.4-12.4 (test code = 754) NUCLEATED RED BLOOD CELLS 0 /100 WBC 0-0 (BEAKER) (test code = 413) NEUTROPHILS RELATIVE PERCENT 81 % (BEAKER) (test code = 429) LYMPHOCYTES RELATIVE PERCENT 9 % (BEAKER) (test code = 430) MONOCYTES RELATIVE PERCENT 10 % (BEAKER) (test code = 431) EOSINOPHILS RELATIVE PERCENT 0 % (BEAKER) (test code = 432) BASOPHILS RELATIVE PERCENT 0 % (BEAKER) (test code = 437) NEUTROPHILS ABSOLUTE COUNT 8.72 K/ L 1.78-5.38 H (BEAKER) (test code = 670) LYMPHOCYTES ABSOLUTE COUNT 0.94 K/ L 1.32-3.57 L (BEAKER) (test code = 414) MONOCYTES ABSOLUTE COUNT (BEAKER) 1.04 K/ L 0.30-0.82 H (test code = 415) EOSINOPHILS ABSOLUTE COUNT 0.00 K/ L 0.04-0.54 L (BEAKER) (test code = 416) BASOPHILS ABSOLUTE COUNT (BEAKER) 0.02 K/ L 0.01-0.08 (test code = 417) IMMATURE GRANULOCYTES-RELATIVE 1 % 0-1 PERCENT (BEAKER) (test code = 2801) OXYGEN SATURATION, [id number] 04:38:00 Test Item Value Reference Range Interpretation Comments O2 SATURATION (MEASURED) (BANNER) 68.2 % (test code = 1455) CALCIUM, [id number] 04:35:00 Test Item Value Reference Range Interpretation Comments CALCIUM IONIZED (BANNER) (test 1.14 mmol/L 1.12-1.27 code = 698) PH, BLOOD (BANNER) (test code = 7.37 1810) POCT-GLUCOSE [id number] 04:10:00 Test Item Value Reference Range Interpretation Comments POC-GLUCOSE METER 145 mg/dL 70-110 H TESTED AT [place] [address] (BANNER) (test code = [facility] [place] [facility] 1538) [address] POCT-GLUCOSE [id number] 04:10:00 Test Item Value Reference Range Interpretation Comments POC-GLUCOSE METER 136 mg/dL 70-110 H TESTED AT [place] [address] ([place]ANNER) [facility] 1538) [address] POCT-GLUCOSE [id number] 23:42:00 Test Item Value Reference Range Interpretation Comments POC-GLUCOSE METER 133 mg/dL 70-110 H TESTED AT [place] [address] ([place]ANNER) (test code = [facility] [place] [facility] 1538) [address] POCT-GLUCOSE [id number] 23:42:00 Test Item Value Reference Range Interpretation Comments POC-GLUCOSE METER 163 mg/dL 70-110 H TESTED AT [place] [address] ([place]ANNER) (test code = [facility] [place] [facility] 1538) [address] POCT-GLUCOSE [id number] 23:42:00 Test Item Value Reference Range Interpretation Comments POC-GLUCOSE METER 170 mg/dL 70-110 H TESTED AT [facility] 6720 (BEAKER) (test code = [facility] [place] 1538) [address] LACTIC ACID, [id number] 21:25:00 Test Item Value Reference Range Interpretation Comments LACTATE BLOOD ARTERIAL (2) 1.3 mmol/L 0.5-2.2 (BEAKER) (test code = 2874) CALCIUM, [id number] 21:12:00 Test Item Value Reference Range Interpretation Comments CALCIUM IONIZED (BEAKER) (test 1.15 mmol/L 1.12-1.27 code = 698) PH, BLOOD (BEAKER) (test code = 7.39 1810) BLOOD GAS, [id number] 21:12:00 Test Item Value Reference Range Interpretation Comments PH ARTERIAL (BEAKER) (test code = 7.38 7.35-7.45 383) PCO2 ARTERIAL (BEAKER) (test code 38 mmHg 35-45 = 384) PO2 ARTERIAL (BEAKER) (test code 123 mmHg 80-90 H = 385) O2 SATURATION ARTERIAL (BEAKER) 98.3 % 96.0-97.0 H (test code = 386) HCO3 ARTERIAL (BEAKER) (test code 22 mmol/L 21-29 = 388) BASE EXCESS ARTERIAL (BEAKER) -2.6 mmol/L -2.0-3.0 L (test code = 387) PATIENT TEMPERATURE (BEAKER) 37.7 C (test code = 1818) FIO2 (BEAKER) (test code = 1819) 4L GLUCOSE-STAT [id number] 21:12:00 Test Item Value Reference Range Interpretation Comments GLUCOSE RANDOM (BEAKER) (test code 162 mg/dL 70-110 H = 652) HGB/HCT (H&H) - STAT [id number] 21:12:00 Test Item Value Reference Range Interpretation Comments HEMOGLOBIN (BEAKER) (test code = 9.7 g/dL 13.0-16.8 L 410) HEMATOCRIT (BEAKER) (test code = 29.0 % 40.0-50.0 L 411) OXYGEN SATURATION, [id number] 21:11:00 Test Item Value Reference Range Interpretation Comments O2 SATURATION (MEASURED) (BEAKER) 65.2 % (test code = 1455) SODIUM NA-STAT [id number] 21:11:00 Test Item Value Reference Range Interpretation Comments SODIUM (BEAKER) (test code = 381) 135 meq/L 135-148 POTASSIUM-STAT [id number] 21:11:00 Test Item Value Reference Range Interpretation Comments POTASSIUM (BEAKER) (test code = 3.8 meq/L 3.6-5.5 379) POCT-GLUCOSE [id number] 18:34:00 Test Item Value Reference Range Interpretation Comments POC-GLUCOSE METER 191 mg/dL 70-110 H TESTED AT [facility] 6720 (BEAKER) (test code = [facility] [place] 1538) [address] POCT-GLUCOSE [id number] 18:17:00 Test Item Value Reference Range Interpretation Comments POC-GLUCOSE METER 188 mg/dL 70-110 H TESTED AT [facility] 6720 (BEAKER) (test code = [facility] [place] 1538) [address] POCT-GLUCOSE [id number] 17:55:00 Test Item Value Reference Range Interpretation Comments POC-GLUCOSE METER 198 mg/dL 70-110 H TESTED AT [facility] 6720 (BEAKER) (test code = JE[facility] 1538) [address] BLOOD GAS, [id number] 15:28:00 Test Item Value Reference Range Interpretation Comments PH ARTERIAL (BEAKER) (test code = 7.38 7.35-7.45 383) PCO2 ARTERIAL (BEAKER) (test code 36 mmHg 35-45 = 384) PO2 ARTERIAL (BEAKER) (test code 124 mmHg 80-90 H = 385) O2 SATURATION ARTERIAL (BEAKER) 98.5 % 96.0-97.0 H (test code = 386) HCO3 ARTERIAL (BEAKER) (test code 21 mmol/L 21-29 = 388) BASE EXCESS ARTERIAL (BEAKER) -4.0 mmol/L -2.0-3.0 L (test code = 387) PATIENT TEMPERATURE (BEAKER) 36.1 C (test code = 1818) FIO2 (BEAKER) (test code = 1819) 40.0 % GLUCOSE-STAT [id number] 15:28:00 Test Item Value Reference Range Interpretation Comments GLUCOSE RANDOM (BEAKER) (test code 203 mg/dL 70-110 H = 652) HGB/HCT (H&H) - STAT [id number] 15:28:00 Test Item Value Reference Range Interpretation Comments HEMOGLOBIN (BEAKER) (test code = 9.5 g/dL 13.0-16.8 L 410) HEMATOCRIT (BEAKER) (test code = 28.0 % 40.0-50.0 L 411) SODIUM NA-STAT [id number] 15:27:00 Test Item Value Reference Range Interpretation Comments SODIUM (BEAKER) (test code = 381) 135 meq/L 135-148 POTASSIUM-STAT [id number] 15:27:00 Test Item Value Reference Range Interpretation Comments POTASSIUM (BEAKER) (test code = 3.5 meq/L 3.6-5.5 L 379) POCT-GLUCOSE [id number] 14:10:00 Test Item Value Reference Range Interpretation Comments POC-GLUCOSE METER 231 mg/dL 70-110 H TESTED AT [facility] 6720 (ILENE) (test code = JEANETTE Goode [facility] 1538) [address] RAD, CHEST, 1 VIEW, NON [id number] 13:24:00Reason for exam:->Post ACBShould this be performed at the bedside?->YesFINAL REPORT CLINICAL HISTORY: Post ACB TECHNIQUE: 1 view of the chest. COMPARISON: 07/20/2019 IMPRESSION: The patient is status post median sternotomy with an endotracheal tubeat the clavicles, a right [place]-Dontrell catheter with its tip directed in the pulmonary outflow tract, anasogastric tube in the stomach, and left-sided chest tubes. There is no pneumothorax. There is new pulmonary vascular congestion. There is new left lower lung consolidation. Pleural effusions cannot be excluded. A pacemaker is again seen. Signed: Laura Leyva MDReport Verified Date/Time: 07/21/201913:24:31 Reading Location: [facility] Radiology Reading Room [id number] 13:15:00 Test Item Value Reference Range Interpretation Comments MAGNESIUM (BEAKER) 1.4 mg/dL 1.6-2.6 L Specimen slightly (test code = 627) hemolyzed [id number] 13:15:00 Test Item Value Reference Range Interpretation Comments PHOSPHORUS (BEAKER) 2.2 mg/dL 2.3-4.7 L Specimen slightly (test code = 604) hemolyzed [id number] 13:15:00 Test Item Value Reference Range Interpretation Comments POTASSIUM (BEAKER) 3.9 meq/L 3.5-5.1 Specimen slightly (test code = 379) hemolyzed [id number] 13:15:00 Test Item Value Reference Range Interpretation Comments GLUCOSE RANDOM (BEAKER) (test code 233 mg/dL 70-105 H = 652) BASIC METABOLIC [id number] 13:15:00 Test Item Value Reference Range Interpretation Comments SODIUM (BEAKER) 135 meq/L 136-145 L (test code = 381) POTASSIUM (BEAKER) 3.9 meq/L 3.5-5.1 Specimen slightly (test code = 379) hemolyzed CHLORIDE (BEAKER) 108 meq/L 98-107 H (test code = 382) CO2 (BEAKER) (test 21 meq/L 22-29 L code = 355) BLOOD UREA NITROGEN 23 mg/dL 7-21 H (BEAKER) (test code = 354) CREATININE (BEAKER) 1.00 mg/dL 0.57-1.25 Specimen slightly (test code = 358) hemolyzed GLUCOSE RANDOM 233 mg/dL 70-105 H (BEAKER) (test code = 652) CALCIUM (BEAKER) 8.2 mg/dL 8.4-10.2 L (test code = 697) EGFR (BEAKER) (test 75 mL/min/1.73 ESTIMA LANDON GFR IS code = 1092) sq m NOT ACCURATE CREATININE CLEARANCE IN PREDICTING GLOMERULAR FILTRATION RATE . ESTIMATED GFR I S NOT APPLICABLE FOR DIALYSIS PATIEN TS. LACTIC ACID, [id number] 13:12:00 Test Item Value Reference Range Interpretation Comments LACTATE BLOOD 1.7 mmol/L 0.5-2.2 Specimen sligh tly ARTERIAL (2) (BEAKER) hemoly zed (test code = 2874) PROTHROMBIN [id number] 13:04:00 Test Item Value Reference Range Interpretation Comments PROTIME (BEAKER) (test code = 17.2 seconds 11.9-14.2 H 759) INR (BEAKER) (test code = 370) 1.5 <=5.9 Effective 02/26/2019: PT Reference Range ChangeNew: 11.9-14.2 Previous: 11.7- 14.7RECOMMENDED COUMADIN/WARFARIN INR THERAPY RANGESSTANDARD DOSE: 2.0-3.0 Includes: PROPHYLAXIS for venous thrombosis, systemic embolization; TREATMENT for venous thrombosis and/or pulmonary embolus.HIGH RISK: Target INR is2.5-3.5 for patients wiht mechanical heart valves.[id number] 13:04:00 Test Item Value Reference Range Interpretation Comments FIBRINOGEN LEVEL (BEAKER) (test 257 mg/dl 225-434 code = 658) [id number] 13:04:00 Test Item Value Reference Range Interpretation Comments PARTIAL THROMBOPLASTIN TIME 33.1 seconds 22.5-36.0 (BEAKER) (test code = 760) [id number] 12:57:00 Test Item Value Reference Range Interpretation Comments ACTIVATED CLOTTING TIME 109 sec Refe rence Range: (BEAKER) (test code = 74-137 seconds, 441) Baseline/TESTED AT [address] [address] [id number] 12:57:00 Test Item Value Reference Range Interpretation Comments ACTIVATED CLOTTING TIME 532 sec Refe rence Range: (BEAKER) (test code = 74-137 seconds, 441) Baseline/TESTED AT [address] [address] [id number] 12:57:00 Test Item Value Reference Range Interpretation Comments ACTIVATED CLOTTING TIME 483 sec Refe rence Range: (BEAKER) (test code = 74-137 seconds, 441) Baseline/TESTED AT [address] [address] [id number] 12:57:00 Test Item Value Reference Range Interpretation Comments ACTIVATED CLOTTING TIME > sec Refe rence Range: 74-137 (BEAKER) (test code = second s, Baseline/OUTSIDE 441) MEASURING RANGE TESTED AT [place] [address] CALCIUM, [id number] 12:53:00 Test Item Value Reference Range Interpretation Comments CALCIUM IONIZED (BEAKER) (test 1.11 mmol/L 1.12-1.27 L code = 698) PH, BLOOD (BEAKER) (test code = 7.32 1810) BLOOD GAS, [id number] 12:53:00 Test Item Value Reference Range Interpretation Comments PH ARTERIAL (BEAKER) (test code = 7.34 7.35-7.45 L 383) PCO2 ARTERIAL (BEAKER) (test code 42 mmHg 35-45 = 384) PO2 ARTERIAL (BEAKER) (test code 157 mmHg 80-90 H = 385) O2 SATURATION ARTERIAL (BEAKER) 98.9 % 96.0-97.0 H (test code = 386) HCO3 ARTERIAL (BEAKER) (test code 22 mmol/L 21-29 = 388) BASE EXCESS ARTERIAL (BEAKER) -3.6 mmol/L -2.0-3.0 L (test code = 387) PATIENT TEMPERATURE (BEAKER) 35.9 C (test code = 1818) FIO2 (BEAKER) (test code = 1819) 60.0 % CBC W/PLT COUNT & AUTO [id number] 12:51:00 Test Item Value Reference Range Interpretation Comments WHITE BLOOD CELL COUNT (BEAKER) 10.0 K/ L 3.5-10.5 (test code = 775) RED BLOOD CELL COUNT (BEAKER) 3.08 M/ L 4.63-6.08 L (test code = 761) HEMOGLOBIN (BEAKER) (test code = 9.9 GM/DL 13.7-17.5 L 410) HEMATOCRIT (BEAKER) (test code = 28.5 % 40.1-51.0 L 411) MEAN CORPUSCULAR VOLUME (BEAKER) 92.5 fL 79.0-92.2 H (test code = 753) MEAN CORPUSCULAR HEMOGLOBIN 32.1 pg 25.7-32.2 (BEAKER) (test code = 751) MEAN CORPUSCULAR HEMOGLOBIN CONC 34.7 GM/DL 32.3-36.5 (BEAKER) (test code = 752) RED CELL DISTRIBUTION WIDTH 13.0 % 11.6-14.4 (BEAKER) (test code = 412) PLATELET COUNT (BEAKER) (test 121 K/CU MM 150-450 L code = 756) MEAN PLATELET VOLUME (BEAKER) 11.1 fL 9.4-12.4 (test code = 754) NUCLEATED RED BLOOD CELLS 0 /100 WBC 0-0 (BEAKER) (test code = 413) NEUTROPHILS RELATIVE PERCENT 74 % (BEAKER) (test code = 429) LYMPHOCYTES RELATIVE PERCENT 16 % (BEAKER) (test code = 430) MONOCYTES RELATIVE PERCENT 9 % (BEAKER) (test code = 431) EOSINOPHILS RELATIVE PERCENT 1 % (BEAKER) (test code = 432) BASOPHILS RELATIVE PERCENT 0 % (BEAKER) (test code = 437) NEUTROPHILS ABSOLUTE COUNT 7.41 K/ L 1.78-5.38 H (BEAKER) (test code = 670) LYMPHOCYTES ABSOLUTE COUNT 1.56 K/ L 1.32-3.57 (BEAKER) (test code = 414) MONOCYTES ABSOLUTE COUNT (BEAKER) 0.85 K/ L 0.30-0.82 H (test code = 415) EOSINOPHILS ABSOLUTE COUNT 0.11 K/ L 0.04-0.54 (BEAKER) (test code = 416) BASOPHILS ABSOLUTE COUNT (BEAKER) 0.02 K/ L 0.01-0.08 (test code = 417) IMMATURE GRANULOCYTES-RELATIVE 1 % 0-1 PERCENT (BEAKER) (test code = 2801) OXYGEN SATURATION, [id number] 12:50:00 Test Item Value Reference Range Interpretation Comments O2 SATURATION (MEASURED) (BEAKER) 83.0 % (test code = 1455) BLOOD GAS, [id number] 10:53:00 Test Item Value Reference Range Interpretation Comments PH ARTERIAL (BEAKER) (test code = 7.42 7.35-7.45 383) PCO2 ARTERIAL (BEAKER) (test code 34 mmHg 35-45 L = 384) PO2 ARTERIAL (BEAKER) (test code 244 mmHg 80-90 H = 385) O2 SATURATION ARTERIAL (BEAKER) 99.6 % 96.0-97.0 H (test code = 386) HCO3 ARTERIAL (BEAKER) (test code 22 mmol/L 21-29 = 388) BASE EXCESS ARTERIAL (BEAKER) -2.5 mmol/L -2.0-3.0 L (test code = 387) PATIENT TEMPERATURE (BEAKER) 36.4 C (test code = 1818) FIO2 (BEAKER) (test code = 1819) 100.0 % SODIUM NA-STAT [id number] 10:53:00 Test Item Value Reference Range Interpretation Comments SODIUM (BEAKER) (test code = 381) 130 meq/L 135-148 L GLUCOSE-STAT [id number] 10:53:00 Test Item Value Reference Range Interpretation Comments GLUCOSE RANDOM (BEAKER) (test code 248 mg/dL 70-110 H = 652) HGB/HCT (H&H) - STAT [id number] 10:53:00 Test Item Value Reference Range Interpretation Comments HEMOGLOBIN (BEAKER) (test code = 9.0 g/dL 13.0-16.8 L 410) HEMATOCRIT (BEAKER) (test code = 26.0 % 40.0-50.0 L 411) POTASSIUM-STAT [id number] 10:52:00 Test Item Value Reference Range Interpretation Comments POTASSIUM (BEAKER) (test code = 4.3 meq/L 3.6-5.5 379) CALCIUM, [id number] 10:51:00 Test Item Value Reference Range Interpretation Comments CALCIUM IONIZED (BEAKER) (test 1.24 mmol/L 1.12-1.27 code = 698) PH, BLOOD (BEAKER) (test code = 7.42 1810) BLOOD GAS, [id number] 10:03:00 Test Item Value Reference Range Interpretation Comments PH ARTERIAL (BEAKER) (test code = 7.40 7.35-7.45 383) PCO2 ARTERIAL (BEAKER) (test code 37 mmHg 35-45 = 384) PO2 ARTERIAL (BEAKER) (test code 249 mmHg 80-90 H = 385) O2 SATURATION ARTERIAL (BEAKER) 99.6 % 96.0-97.0 H (test code = 386) HCO3 ARTERIAL (BEAKER) (test code 24 mmol/L 21-29 = 388) BASE EXCESS ARTERIAL (BEAKER) -2.2 mmol/L -2.0-3.0 L (test code = 387) PATIENT TEMPERATURE (BEAKER) 32.0 C (test code = 1818) FIO2 (BEAKER) (test code = 1819) 70.0 % SODIUM NA-STAT [id number] 10:03:00 Test Item Value Reference Range Interpretation Comments SODIUM (BEAKER) (test code = 381) 132 meq/L 135-148 L GLUCOSE-STAT [id number] 10:03:00 Test Item Value Reference Range Interpretation Comments GLUCOSE RANDOM (BEAKER) (test code 239 mg/dL 70-110 H = 652) HGB/HCT (H&H) - STAT [id number] 10:03:00 Test Item Value Reference Range Interpretation Comments HEMOGLOBIN (BEAKER) (test code = 8.5 g/dL 13.0-16.8 L 410) HEMATOCRIT (BEAKER) (test code = 25.0 % 40.0-50.0 L 411) POTASSIUM-STAT [id number] 10:02:00 Test Item Value Reference Range Interpretation Comments POTASSIUM (BEAKER) (test code = 5.5 meq/L 3.6-5.5 379) HGB/HCT (H&H) - STAT [id number] 09:38:00 Test Item Value Reference Range Interpretation Comments HEMOGLOBIN (BEAKER) (test code = 8.4 g/dL 13.0-16.8 L 410) HEMATOCRIT (BEAKER) (test code = 25.0 % 40.0-50.0 L 411) POTASSIUM-STAT [id number] 09:37:00 Test Item Value Reference Range Interpretation Comments POTASSIUM (BEAKER) (test code = 4.9 meq/L 3.6-5.5 379) BLOOD GAS, [id number] 09:37:00 Test Item Value Reference Range Interpretation Comments PH ARTERIAL (BEAKER) (test code = 7.30 7.35-7.45 L 383) PCO2 ARTERIAL (BEAKER) (test code 39 mmHg 35-45 = 384) PO2 ARTERIAL (BEAKER) (test code 448 mmHg 80-90 H = 385) O2 SATURATION ARTERIAL (BEAKER) 99.8 % 96.0-97.0 H (test code = 386) HCO3 ARTERIAL (BEAKER) (test code 19 mmol/L 21-29 L = 388) BASE EXCESS ARTERIAL (BEAKER) -7.2 mmol/L -2.0-3.0 L (test code = 387) PATIENT TEMPERATURE (BEAKER) 34.6 C (test code = 1818) FIO2 (BEAKER) (test code = 1819) 80.0 % GLUCOSE-STAT [id number] 09:37:00 Test Item Value Reference Range Interpretation Comments GLUCOSE RANDOM (BEAKER) (test code 258 mg/dL 70-110 H = 652) SODIUM NA-STAT [id number] 09:37:00 Test Item Value Reference Range Interpretation Comments SODIUM (BEAKER) (test code = 381) 132 meq/L 135-148 L GLUCOSE-STAT [id number] 09:16:00 Test Item Value Reference Range Interpretation Comments GLUCOSE RANDOM (BEAKER) (test code 179 mg/dL 70-110 H = 652) POTASSIUM-STAT [id number] 08:35:00 Test Item Value Reference Range Interpretation Comments POTASSIUM (BEAKER) (test code = 4.2 meq/L 3.6-5.5 379) BLOOD GAS, [id number] 08:35:00 Test Item Value Reference Range Interpretation Comments PH ARTERIAL (BEAKER) (test code = 7.38 7.35-7.45 383) PCO2 ARTERIAL (BEAKER) (test code 34 mmHg 35-45 L = 384) PO2 ARTERIAL (BEAKER) (test code 345 mmHg 80-90 H = 385) O2 SATURATION ARTERIAL (BEAKER) 99.8 % 96.0-97.0 H (test code = 386) HCO3 ARTERIAL (BEAKER) (test code 20 mmol/L 21-29 L = 388) BASE EXCESS ARTERIAL (BEAKER) -4.6 mmol/L -2.0-3.0 L (test code = 387) PATIENT TEMPERATURE (BEAKER) 35.6 C (test code = 1818) FIO2 (BEAKER) (test code = 1819) 100.0 % SODIUM NA-STAT [id number] 08:35:00 Test Item Value Reference Range Interpretation Comments SODIUM (BEAKER) (test code = 381) 134 meq/L 135-148 L GLUCOSE-STAT [id number] 08:35:00 Test Item Value Reference Range Interpretation Comments GLUCOSE RANDOM (BEAKER) (test code 256 mg/dL 70-110 H = 652) HGB/HCT (H&H) - STAT [id number] 08:35:00 Test Item Value Reference Range Interpretation Comments HEMOGLOBIN (BEAKER) (test code = 12.5 g/dL 13.0-16.8 L 410) HEMATOCRIT (BEAKER) (test code = 37.0 % 40.0-50.0 L 411) CALCIUM, [id number] 08:34:00 Test Item Value Reference Range Interpretation Comments CALCIUM IONIZED (BEAKER) (test 1.22 mmol/L 1.12-1.27 code = 698) PH, BLOOD (BEAKER) (test code = 7.36 1810) POCT-GLUCOSE [id number] 05:41:00 Test Item Value Reference Range Interpretation Comments POC-GLUCOSE METER 283 mg/dL 70-110 H TESTED AT [facility] [address] (BEAKER) (test code = [place] 1538) [id number] [id number] 05:31:00 Test Item Value Reference Range Interpretation Comments MAGNESIUM (BEAKER) 1.7 mg/dL 1.6-2.6 Specimen slightly (test code = 627) hemolyzed BASIC METABOLIC [id number] 05:31:00 Test Item Value Reference Range Interpretation Comments SODIUM (BEAKER) 133 meq/L 136-145 L (test code = 381) POTASSIUM (BEAKER) 4.2 meq/L 3.5-5.1 Specimen slightly (test code = 379) hemolyzed CHLORIDE (BEAKER) 106 meq/L 98-107 (test code = 382) CO2 (BEAKER) (test 20 meq/L 22-29 L code = 355) BLOOD UREA NITROGEN 27 mg/dL 7-21 H (BEAKER) (test code = 354) CREATININE (BEAKER) 1.19 mg/dL 0.57-1.25 Specimen slightly (test code = 358) hemolyzed GLUCOSE RANDOM 285 mg/dL 70-105 H (BEAKER) (test code = 652) CALCIUM (BEAKER) 8.8 mg/dL 8.4-10.2 (test code = 697) EGFR (BEAKER) (test 61 mL/min/1.73 ESTIMA LANDON GFR IS code = 1092) sq m NOT ACCURATE CREATININE CLEARANCE IN PREDICTING GLOMERULAR FILTRATION RATE . ESTIMATED GFR I S NOT APPLICABLE FOR DIALYSIS PATIEN TS. CBC W/PLT COUNT & AUTO [id number] 05:14:00 Test Item Value Reference Range Interpretation Comments WHITE BLOOD CELL COUNT (BEAKER) 5.8 K/ L 3.5-10.5 (test code = 775) RED BLOOD CELL COUNT (BEAKER) 3.82 M/ L 4.63-6.08 L (test code = 761) HEMOGLOBIN (BEAKER) (test code = 12.0 GM/DL 13.7-17.5 L 410) HEMATOCRIT (BEAKER) (test code = 35.7 % 40.1-51.0 L 411) MEAN CORPUSCULAR VOLUME (BEAKER) 93.5 fL 79.0-92.2 H (test code = 753) MEAN CORPUSCULAR HEMOGLOBIN 31.4 pg 25.7-32.2 (BEAKER) (test code = 751) MEAN CORPUSCULAR HEMOGLOBIN CONC 33.6 GM/DL 32.3-36.5 (BEAKER) (test code = 752) RED CELL DISTRIBUTION WIDTH 12.9 % 11.6-14.4 (BEAKER) (test code = 412) PLATELET COUNT (BEAKER) (test 171 K/CU MM 150-450 code = 756) MEAN PLATELET VOLUME (BEAKER) 11.8 fL 9.4-12.4 (test code = 754) NUCLEATED RED BLOOD CELLS 0 /100 WBC 0-0 (BEAKER) (test code = 413) NEUTROPHILS RELATIVE PERCENT 48 % (BEAKER) (test code = 429) LYMPHOCYTES RELATIVE PERCENT 39 % (BEAKER) (test code = 430) MONOCYTES RELATIVE PERCENT 10 % (BEAKER) (test code = 431) EOSINOPHILS RELATIVE PERCENT 3 % (BEAKER) (test code = 432) BASOPHILS RELATIVE PERCENT 0 % (BEAKER) (test code = 437) NEUTROPHILS ABSOLUTE COUNT 2.75 K/ L 1.78-5.38 (BEAKER) (test code = 670) LYMPHOCYTES ABSOLUTE COUNT 2.25 K/ L 1.32-3.57 (BEAKER) (test code = 414) MONOCYTES ABSOLUTE COUNT (BEAKER) 0.57 K/ L 0.30-0.82 (test code = 415) EOSINOPHILS ABSOLUTE COUNT 0.17 K/ L 0.04-0.54 (BEAKER) (test code = 416) BASOPHILS ABSOLUTE COUNT (BEAKER) 0.02 K/ L 0.01-0.08 (test code = 417) IMMATURE GRANULOCYTES-RELATIVE 0 % 0-1 PERCENT (BEAKER) (test code = 2801) RAD, CHEST, 1 VIEW, NON [id number] 02:56:00Reason for exam:->pre opShould this be performed [...] no acute bony abnormality. Signed: Carlos A Barrera MDReport Verified Date/Time: 07/21/2019 02:56:45 POCT-GLUCOSE [id number] 22:59:00 Test Item Value Reference Range Interpretation Comments POC-GLUCOSE METER 234 mg/dL 70-110 H TESTED AT [place] [address] ([place]ANNER) (test code = [facility] [employer] [facility] 1538) [id number] POCT-GLUCOSE [id number] 21:29:00 Test Item Value Reference Range Interpretation Comments POC-GLUCOSE METER 312 mg/dL 70-110 H TESTED AT [place] [address] ([place]ANNER) (test code = [facility] [employer] [facility] 1538) [id number] POCT-GLUCOSE [id number] 18:52:00 Test Item Value Reference Range Interpretation Comments POC-GLUCOSE METER 331 mg/dL 70-110 H TESTED AT [place] [address] ([place]ANNER) (test code = [employer] [place] 1538) [id number] POCT-GLUCOSE [id number] 13:12:00 Test Item Value Reference Range Interpretation Comments POC-GLUCOSE METER 260 mg/dL 70-110 H TESTED AT [place] [address] ([place]ANNER) (test code = [facility] [employer] [place] 1538) [address] HEMOGLOBIN [id number] 09:23:00 Test Item Value Reference Range Interpretation Comments HEMOGLOBIN A1C (BANNER) (test code = 9.2 % 4.3-6.1 H 368) POCT-GLUCOSE [id number] 09:07:00 Test Item Value Reference Range Interpretation Comments POC-GLUCOSE METER 199 mg/dL 70-110 H TESTED AT [place] [address] ([place]NER) (test code = [facility] [employer] [facility] 1538) [id number] 05:27:00 Test Item Value Reference Range Interpretation Comments MAGNESIUM (BEAKER) (test code = 1.9 mg/dL 1.6-2.6 627) COMPREHENSIVE METABOLIC [id number] 05:27:00 Test Item Value Reference Range Interpretation Comments TOTAL PROTEIN 7.2 gm/dL 6.0-8.3 (BEAKER) (test code = 770) ALBUMIN (BEAKER) 3.8 g/dL 3.5-5.0 (test code = 1145) ALKALINE PHOSPHATASE 40 U/L 40-150 (BEAKER) (test code = 346) BILIRUBIN TOTAL 0.4 mg/dL 0.2-1.2 (BEAKER) (test code = 377) SODIUM (BEAKER) (test 134 meq/L 136-145 L code = 381) POTASSIUM (BEAKER) 4.3 meq/L 3.5-5.1 (test code = 379) CHLORIDE (BEAKER) 107 meq/L 98-107 (test code = 382) CO2 (BEAKER) (test 23 meq/L 22-29 code = 355) BLOOD UREA NITROGEN 25 mg/dL 7-21 H (BEAKER) (test code = 354) CREATININE (BEAKER) 1.13 mg/dL 0.57-1.25 (test code = 358) GLUCOSE RANDOM 244 mg/dL 70-105 H (BEAKER) (test code = 652) CALCIUM (BEAKER) 9.2 mg/dL 8.4-10.2 (test code = 697) AST (SGOT) (BEAKER) 26 U/L 5-34 (test code = 353) ALT (SGPT) (BEAKER) 31 U/L 6-55 (test code = 347) EGFR (BEAKER) (test 65 mL/min/1.73 ESTIMA LANDON GFR IS code = 1092) sq m NOT ACCURATE CREATININE CLEARANCE IN PREDICTING GLOMERULAR FILTRATION RATE . ESTIMATED GFR I S NOT APPLICABLE FOR DIALYSIS PATIEN TS. [id number] 05:10:00 Test Item Value Reference Range Interpretation Comments PARTIAL THROMBOPLASTIN TIME 34.8 seconds 22.5-36.0 (BEAKER) (test code = 760) PROTHROMBIN [id number] 05:09:00 Test Item Value Reference Range Interpretation Comments PROTIME (BEAKER) (test code = 14.1 seconds 11.9-14.2 759) INR (BEAKER) (test code = 370) 1.2 <=5.9 Effective 02/26/2019: PT Reference Range ChangeNew: 11.9-14.2 Previous: 11.7- 14.7RECOMMENDED COUMADIN/WARFARIN INR THERAPY RANGESSTANDARD DOSE: 2.0-3.0 Includes: PROPHYLAXIS for venous thrombosis, systemic embolization; TREATMENT for venous thrombosis and/or pulmonary embolus.HIGH RISK: Target INR is2.5-3.5 for patients wiht mechanical heart valves.CBC W/PLT COUNT & AUTO [id number] 04:57:00 Test Item Value Reference Range Interpretation Comments WHITE BLOOD CELL COUNT (BEAKER) 7.1 K/ L 3.5-10.5 (test code = 775) RED BLOOD CELL COUNT (BEAKER) 3.90 M/ L 4.63-6.08 L (test code = 761) HEMOGLOBIN (BEAKER) (test code = 12.0 GM/DL 13.7-17.5 L 410) HEMATOCRIT (BEAKER) (test code = 36.0 % 40.1-51.0 L 411) MEAN CORPUSCULAR VOLUME (BEAKER) 92.3 fL 79.0-92.2 H (test code = 753) MEAN CORPUSCULAR HEMOGLOBIN 30.8 pg 25.7-32.2 (BEAKER) (test code = 751) MEAN CORPUSCULAR HEMOGLOBIN CONC 33.3 GM/DL 32.3-36.5 (BEAKER) (test code = 752) RED CELL DISTRIBUTION WIDTH 13.0 % 11.6-14.4 (BEAKER) (test code = 412) PLATELET COUNT (BEAKER) (test 177 K/CU MM 150-450 code = 756) MEAN PLATELET VOLUME (BEAKER) 11.6 fL 9.4-12.4 (test code = 754) NUCLEATED RED BLOOD CELLS 0 /100 WBC 0-0 (BEAKER) (test code = 413) NEUTROPHILS RELATIVE PERCENT 55 % (BEAKER) (test code = 429) LYMPHOCYTES RELATIVE PERCENT 33 % (BEAKER) (test code = 430) MONOCYTES RELATIVE PERCENT 9 % (BEAKER) (test code = 431) EOSINOPHILS RELATIVE PERCENT 3 % (BEAKER) (test code = 432) BASOPHILS RELATIVE PERCENT 0 % (BEAKER) (test code = 437) NEUTROPHILS ABSOLUTE COUNT 3.91 K/ L 1.78-5.38 (BEAKER) (test code = 670) LYMPHOCYTES ABSOLUTE COUNT 2.34 K/ L 1.32-3.57 (BEAKER) (test code = 414) MONOCYTES ABSOLUTE COUNT (BEAKER) 0.61 K/ L 0.30-0.82 (test code = 415) EOSINOPHILS ABSOLUTE COUNT 0.18 K/ L 0.04-0.54 (BEAKER) (test code = 416) BASOPHILS ABSOLUTE COUNT (BEAKER) 0.03 K/ L 0.01-0.08 (test code = 417) IMMATURE GRANULOCYTES-RELATIVE 0 % 0-1 PERCENT (BEAKER) (test code = 2801) POCT-GLUCOSE [id number] 21:25:00 Test Item Value Reference Range Interpretation Comments POC-GLUCOSE METER 232 mg/dL 70-110 H TESTED AT [place] [address] (BEAKER) (test code = JEANETTE Goode [facility] 1538) [id number] POCT-GLUCOSE [id number] 18:18:00 Test Item Value Reference Range Interpretation Comments POC-GLUCOSE METER 165 mg/dL 70-110 H TESTED AT [place] [address] (BEAKER) (test code = JEANETTE Goode [facility] 1538) [address] POCT-GLUCOSE [id number] 12:00:00 Test Item Value Reference Range Interpretation Comments POC-GLUCOSE METER 301 mg/dL 70-110 H TESTED AT [place] [address] (BEAKER) (test code = JEANTETE Goode [facility] 1538) [address] POCT-GLUCOSE [id number] 08:49:00 Test Item Value Reference Range Interpretation Comments POC-GLUCOSE METER 233 mg/dL 70-110 H TESTED AT [place] [address] (BEAKER) (test code = JEANETTE Goode [facility] 1538) [address] [id number] 06:17:00 Test Item Value Reference Range Interpretation Comments MAGNESIUM (BEAKER) (test code = 1.6 mg/dL 1.6-2.6 627) BASIC METABOLIC [id number] 06:17:00 Test Item Value Reference Range Interpretation Comments SODIUM (BEAKER) 135 meq/L 136-145 L (test code = 381) POTASSIUM (BEAKER) 4.4 meq/L 3.5-5.1 (test code = 379) CHLORIDE (BEAKER) 107 meq/L 98-107 (test code = 382) CO2 (BEAKER) (test 20 meq/L 22-29 L code = 355) BLOOD UREA NITROGEN 29 mg/dL 7-21 H (BEAKER) (test code = 354) CREATININE (BEAKER) 1.17 mg/dL 0.57-1.25 (test code = 358) GLUCOSE RANDOM 245 mg/dL 70-105 H (BEAKER) (test code = 652) CALCIUM (BEAKER) 9.0 mg/dL 8.4-10.2 (test code = 697) EGFR (BEAKER) (test 63 mL/min/1.73 ESTIMA LANDON GFR IS code = 1092) sq m NOT ACCURATE CREATININE CLEARANCE IN PREDICTING GLOMERULAR FILTRATION RATE . ESTIMATED GFR I S NOT APPLICABLE FOR DIALYSIS PATIEN TS. CBC W/PLT COUNT & AUTO [id number] 05:38:00 Test Item Value Reference Range Interpretation Comments WHITE BLOOD CELL COUNT (BEAKER) 7.1 K/ L 3.5-10.5 (test code = 775) RED BLOOD CELL COUNT (BEAKER) 4.09 M/ L 4.63-6.08 L (test code = 761) HEMOGLOBIN (BEAKER) (test code = 12.7 GM/DL 13.7-17.5 L 410) HEMATOCRIT (BEAKER) (test code = 37.8 % 40.1-51.0 L 411) MEAN CORPUSCULAR VOLUME (BEAKER) 92.4 fL 79.0-92.2 H (test code = 753) MEAN CORPUSCULAR HEMOGLOBIN 31.1 pg 25.7-32.2 (BEAKER) (test code = 751) MEAN CORPUSCULAR HEMOGLOBIN CONC 33.6 GM/DL 32.3-36.5 (BEAKER) (test code = 752) RED CELL DISTRIBUTION WIDTH 13.0 % 11.6-14.4 (BEAKER) (test code = 412) PLATELET COUNT (BEAKER) (test 195 K/CU MM 150-450 code = 756) MEAN PLATELET VOLUME (BEAKER) 11.7 fL 9.4-12.4 (test code = 754) NUCLEATED RED BLOOD CELLS 0 /100 WBC 0-0 (BEAKER) (test code = 413) NEUTROPHILS RELATIVE PERCENT 47 % (BEAKER) (test code = 429) LYMPHOCYTES RELATIVE PERCENT 40 % (BEAKER) (test code = 430) MONOCYTES RELATIVE PERCENT 9 % (BEAKER) (test code = 431) EOSINOPHILS RELATIVE PERCENT 3 % (BEAKER) (test code = 432) BASOPHILS RELATIVE PERCENT 0 % (BEAKER) (test code = 437) NEUTROPHILS ABSOLUTE COUNT 3.36 K/ L 1.78-5.38 (BEAKER) (test code = 670) LYMPHOCYTES ABSOLUTE COUNT 2.86 K/ L 1.32-3.57 (BEAKER) (test code = 414) MONOCYTES ABSOLUTE COUNT (BEAKER) 0.66 K/ L 0.30-0.82 (test code = 415) EOSINOPHILS ABSOLUTE COUNT 0.21 K/ L 0.04-0.54 (BEAKER) (test code = 416) BASOPHILS ABSOLUTE COUNT (BEAKER) 0.03 K/ L 0.01-0.08 (test code = 417) IMMATURE GRANULOCYTES-RELATIVE 0 % 0-1 PERCENT (BEAKER) (test code = 2801) POCT-GLUCOSE [id number] 21:36:00 Test Item Value Reference Range Interpretation Comments POC-GLUCOSE METER 227 mg/dL 70-110 H TESTED AT [place] [address] ([facility]) (test code = [facility] 1538) [id number] POCT-GLUCOSE [id number] 18:27:00 Test Item Value Reference Range Interpretation Comments POC-GLUCOSE METER 377 mg/dL 70-110 H TESTED AT [place] [address] ([facility]) (test code = [facility] 1538) [id number] POCT-GLUCOSE [id number] 16:56:00 Test Item Value Reference Range Interpretation Comments POC-GLUCOSE METER 344 mg/dL 70-110 H TESTED AT [place] [address] ([facility]) (test code = [facility] 1538) [id number] POCT-GLUCOSE [id number] 13:01:00 Test Item Value Reference Range Interpretation Comments POC-GLUCOSE METER 206 mg/dL 70-110 H TESTED AT [place] [address] (BEAKER) (test code = [facility] 1538) [id number] HEMOGLOBIN [id number] 11:33:00 Test Item Value Reference Range Interpretation Comments HEMOGLOBIN A1C (BEAKER) (test code = 9.0 % 4.3-6.1 H 368) [id number] 07:15:00 Test Item Value Reference Range Interpretation Comments PHOSPHORUS (BEAKER) (test code = 2.9 mg/dL 2.3-4.7 604) [id number] 07:15:00 Test Item Value Reference Range Interpretation Comments MAGNESIUM (BEAKER) (test code = 1.4 mg/dL 1.6-2.6 L 627) BASIC METABOLIC [id number] 07:15:00 Test Item Value Reference Range Interpretation Comments SODIUM (BEAKER) 133 meq/L 136-145 L (test code = 381) POTASSIUM (BEAKER) 4.2 meq/L 3.5-5.1 (test code = 379) CHLORIDE (BEAKER) 103 meq/L 98-107 (test code = 382) CO2 (BEAKER) (test 23 meq/L 22-29 code = 355) BLOOD UREA NITROGEN 29 mg/dL 7-21 H (BEAKER) (test code = 354) CREATININE (BEAKER) 1.31 mg/dL 0.57-1.25 H (test code = 358) GLUCOSE RANDOM 315 mg/dL 70-105 H (BEAKER) (test code = 652) CALCIUM (BEAKER) 8.8 mg/dL 8.4-10.2 (test code = 697) EGFR (BEAKER) (test 55 mL/min/1.73 ESTIMA LANDON GFR IS code = 1092) sq m NOT ACCURATE CREATININE CLEARANCE IN PREDICTING GLOMERULAR FILTRATION RATE . ESTIMATED GFR I S NOT APPLICABLE FOR DIALYSIS PATIEN TS. CBC W/PLT COUNT & AUTO [id number] 06:22:00 Test Item Value Reference Range Interpretation Comments WHITE BLOOD CELL COUNT (BEAKER) 5.2 K/ L 3.5-10.5 (test code = 775) RED BLOOD CELL COUNT (BEAKER) 3.70 M/ L 4.63-6.08 L (test code = 761) HEMOGLOBIN (BEAKER) (test code = 11.6 GM/DL 13.7-17.5 L 410) HEMATOCRIT (BEAKER) (test code = 34.3 % 40.1-51.0 L 411) MEAN CORPUSCULAR VOLUME (BEAKER) 92.7 fL 79.0-92.2 H (test code = 753) MEAN CORPUSCULAR HEMOGLOBIN 31.4 pg 25.7-32.2 (BEAKER) (test code = 751) MEAN CORPUSCULAR HEMOGLOBIN CONC 33.8 GM/DL 32.3-36.5 (BEAKER) (test code = 752) RED CELL DISTRIBUTION WIDTH 13.2 % 11.6-14.4 (BEAKER) (test code = 412) PLATELET COUNT (BEAKER) (test 143 K/CU MM 150-450 L code = 756) MEAN PLATELET VOLUME (BEAKER) 12.0 fL 9.4-12.4 (test code = 754) NUCLEATED RED BLOOD CELLS 0 /100 WBC 0-0 (BEAKER) (test code = 413) NEUTROPHILS RELATIVE PERCENT 45 % (BEAKER) (test code = 429) LYMPHOCYTES RELATIVE PERCENT 43 % (BEAKER) (test code = 430) MONOCYTES RELATIVE PERCENT 10 % (BEAKER) (test code = 431) EOSINOPHILS RELATIVE PERCENT 2 % (BEAKER) (test code = 432) BASOPHILS RELATIVE PERCENT 1 % (BEAKER) (test code = 437) NEUTROPHILS ABSOLUTE COUNT 2.34 K/ L 1.78-5.38 (BEAKER) (test code = 670) LYMPHOCYTES ABSOLUTE COUNT 2.22 K/ L 1.32-3.57 (BEAKER) (test code = 414) MONOCYTES ABSOLUTE COUNT (BEAKER) 0.52 K/ L 0.30-0.82 (test code = 415) EOSINOPHILS ABSOLUTE COUNT 0.09 K/ L 0.04-0.54 (BEAKER) (test code = 416) BASOPHILS ABSOLUTE COUNT (BEAKER) 0.03 K/ L 0.01-0.08 (test code = 417) IMMATURE GRANULOCYTES-RELATIVE 0 % 0-1 PERCENT (BEAKER) (test code = 2801) POCT-GLUCOSE [id number] 23:15:00 Test Item Value Reference Range Interpretation Comments POC-GLUCOSE METER 317 mg/dL 70-110 H TESTED AT [facility] 67 ([facility]) (test code = [facility] 1538) [id number] POCT-GLUCOSE [id number] 18:43:00 Test Item Value Reference Range Interpretation Comments POC-GLUCOSE METER 341 mg/dL 70-110 H TESTED AT [facility] 6720 ([facility]) (test code = [facility] 1538) [id number] POCT-GLUCOSE [id number] 12:29:00 Test Item Value Reference Range Interpretation Comments POC-GLUCOSE METER 320 mg/dL 70-110 H TESTED AT [facility] 6720 (BEAKER) (test code = JEANETTE Goode [facility] 1538) [id number] POCT-GLUCOSE [id number] 08:52:00 Test Item Value Reference Range Interpretation Comments POC-GLUCOSE METER 258 mg/dL 70-110 H TESTED AT [facility] 6720 (BEAKER) (test code = JEANETTE Goode [facility] 1538) [address]210 TROPONIN [id number] 05:36:00 Test Item Value Reference Range Interpretation Comments TROPONIN I (BEAKER) (test code = 1.86 ng/mL 0.00-0.03 HH 397) Troponin I (TnI) levels must be interpreted [...] failure, acidosis, acute neurological disease, and persistent tachyarrhythmia.[id number] 05:12:00 Test Item Value Reference Range Interpretation Comments PHOSPHORUS (BEAKER) (test code = 2.9 mg/dL 2.3-4.7 604) [id number] 05:12:00 Test Item Value Reference Range Interpretation Comments MAGNESIUM (BEAKER) (test code = 1.4 mg/dL 1.6-2.6 L 627) BASIC METABOLIC [id number] 05:12:00 Test Item Value Reference Range Interpretation Comments SODIUM (BEAKER) 138 meq/L 136-145 (test code = 381) POTASSIUM (BEAKER) 4.1 meq/L 3.5-5.1 (test code = 379) CHLORIDE (BEAKER) 104 meq/L 98-107 (test code = 382) CO2 (BEAKER) (test 28 meq/L 22-29 code = 355) BLOOD UREA NITROGEN 25 mg/dL 7-21 H (BEAKER) (test code = 354) CREATININE (BEAKER) 1.19 mg/dL 0.57-1.25 (test code = 358) GLUCOSE RANDOM 228 mg/dL 70-105 H (BEAKER) (test code = 652) CALCIUM (BEAKER) 9.5 mg/dL 8.4-10.2 (test code = 697) EGFR (BEAKER) (test 61 mL/min/1.73 ESTIMA LANDON GFR IS code = 1092) sq m NOT ACCURATE CREATININE CLEARANCE IN PREDICTING GLOMERULAR FILTRATION RATE . ESTIMATED GFR I S NOT APPLICABLE FOR DIALYSIS PATIEN TS. CBC W/PLT COUNT & AUTO [id number] 04:47:00 Test Item Value Reference Range Interpretation Comments WHITE BLOOD CELL COUNT (BEAKER) 8.8 K/ L 3.5-10.5 (test code = 775) RED BLOOD CELL COUNT (BEAKER) 3.96 M/ L 4.63-6.08 L (test code = 761) HEMOGLOBIN (BEAKER) (test code = 12.5 GM/DL 13.7-17.5 L 410) HEMATOCRIT (BEAKER) (test code = 36.5 % 40.1-51.0 L 411) MEAN CORPUSCULAR VOLUME (BEAKER) 92.2 fL 79.0-92.2 (test code = 753) MEAN CORPUSCULAR HEMOGLOBIN 31.6 pg 25.7-32.2 (BEAKER) (test code = 751) MEAN CORPUSCULAR HEMOGLOBIN CONC 34.2 GM/DL 32.3-36.5 (BEAKER) (test code = 752) RED CELL DISTRIBUTION WIDTH 13.2 % 11.6-14.4 (BEAKER) (test code = 412) PLATELET COUNT (BEAKER) (test 173 K/CU MM 150-450 code = 756) MEAN PLATELET VOLUME (BEAKER) 11.4 fL 9.4-12.4 (test code = 754) NUCLEATED RED BLOOD CELLS 0 /100 WBC 0-0 (BEAKER) (test code = 413) NEUTROPHILS RELATIVE PERCENT 54 % (BEAKER) (test code = 429) LYMPHOCYTES RELATIVE PERCENT 36 % (BEAKER) (test code = 430) MONOCYTES RELATIVE PERCENT 10 % (BEAKER) (test code = 431) EOSINOPHILS RELATIVE PERCENT 0 % (BEAKER) (test code = 432) BASOPHILS RELATIVE PERCENT 0 % (BEAKER) (test code = 437) NEUTROPHILS ABSOLUTE COUNT 4.69 K/ L 1.78-5.38 (BEAKER) (test code = 670) LYMPHOCYTES ABSOLUTE COUNT 3.16 K/ L 1.32-3.57 (BEAKER) (test code = 414) MONOCYTES ABSOLUTE COUNT (BEAKER) 0.84 K/ L 0.30-0.82 H (test code = 415) EOSINOPHILS ABSOLUTE COUNT 0.03 K/ L 0.04-0.54 L (BEAKER) (test code = 416) BASOPHILS ABSOLUTE COUNT (BEAKER) 0.03 K/ L 0.01-0.08 (test code = 417) IMMATURE GRANULOCYTES-RELATIVE 0 % 0-1 PERCENT (BEAKER) (test code = 2801)
--- OUTSIDE RECORDS SUMMARY | 2020-08-23 00:20 | XMS REPORT | Summary of Care ---
:1955 Author Organization [facility] Address [address] [place] [address] Care Team Providers Name Role Phone Benjamín Gabriel Primary Care Provider Reason for Visit Reason Comments Refill Request Encounter Details Date Type Department Care Team Description 06/16/2020 Refill [facility] Cardiology- Vianney Turner MD Refill Request [address] [facility], [address] [place] [address] [place] [address] [phone] Allergies No Known Allergiesdocumented as of this encounter (statuses as of 06/17/2020) Medications Medication Sig Dispensed Refills Start End Date Status Date metFORMIN 1,000 mg Take 1,000 mg 0 Active tablet by mouth 2 (two) times daily with meals. glimepiride 4 mg Take 4 mg by 0 Active tablet mouth 2 (two) times daily. UBIDECAR/FISH Take by 0 Active OIL/OMEGA-3/OSMIN mouth. (CO [id number] OIL-OMEGA 3-E ORAL) nitroglycerin 0.4 Place 1 1 Bottle 0 Ac tive mg sublingual tablet under 9 tablet the tongue every 5 (five) minutes as needed for Chest pain. aspirin 81 mg EC Take 1 tablet 0 Active tabletIndications: by mouth 9 Stenosis of carotid daily. artery, unspecified laterality SITagliptin Take 100 mg 0 Active (JANUVIA) 100 mg by mouth tablet daily. liraglutide inject 1.8 mg 0 Acti ve (VICTOZA 3-АЛЕКСАНДР SC) under the skin daily. gabapentin 300 mg Take 300 mg 0 Active capsule by mouth 3 (three) times daily. tamsulosin 0.4 mg Take by 0 Ac tive 24 hr capsule mouth daily. multivitamin tablet Take 1 tablet 0 Active by mouth daily. [id number] Take by 0 Active INC ORAL mouth daily. fenofibrate 145 mg Take 1 tablet 90 tablet 1 Active tabletIndications: by mouth 9 Right hand pain, daily. PAD (peripheral artery disease) carvediloL 6.25 mg Take 1 tablet 180 tablet 3 Active tabletIndications: by mouth 2 0 Chronic systolic (two) times heart failure daily with meals. furosemide 40 mg Take 1 tablet 90 tablet 1 Active tabletIndications: by mouth 0 Chronic systolic daily. heart failure isosorbide Take 1 tablet 90 tablet 3 Activ e mononitrate 120 mg by mouth 0 24 hr daily. tabletIndications: Stenosis of carotid artery, unspecified laterality lisinopril 40 mg Take 1 tablet 90 tablet 1 Active tabletIndications: by mouth 0 Chronic systolic daily. heart failure atorvastatin 80 mg Take 1 tablet 90 tablet 1 Active tabletIndications: by mouth at 0 Stenosis of carotid bedtime. artery, unspecified laterality icosapent ethyl Take 2 120 capsule 2 Ac tive (VASCEPA) 1 gram capsules by 0 capsuleIndications: mouth 2 (two) Stenosis of carotid times daily. artery, unspecified laterality, Hyperlipidemia, unspecified hyperlipidemia type, Elevated triglycerides with high cholesterol clopidogreL 75 mg Take 1 tablet 30 tablet 6 Active tabletIndications: by mouth 0 Stenosis of carotid daily. artery, unspecified laterality spironolactone 25 Take 1 tablet 30 tablet 1 Active mg by mouth 0 tabletIndications: daily. Chronic systolic heart failure spironolactone 25 Take 1 tablet 30 tablet 1 06/17/20 Discontinued mg by mouth 0 20 (Reorder) tabletIndications: daily. Chronic systolic heart failure documented as of this encounter (statuses as of 06/17/2020) Active Problems No known active problemsdocumented as of this encounter (statuses as of 06/17/2020) Immunizations Name Administration Dates Next Due Influenza High Dose 08/01/2019 documented as of this encounter Social History Tobacco Use Types Packs/Day Years Used Date Never Smoker Smokeless Tobacco: Never Used Alcohol Use Drinks/Week oz/Week Comments Yes 12 Cans of beer 12.0 Sex Assigned at Date Recorded Not on file documented as of this encounter Last Filed Vital Signs Not on filedocumented in this encounter Plan of Treatment Date Type Specialty Care Team Description 07/13/2020 Office Visit Cardiology Tiffanie Turner M D [address] [place] [address] [phone] Health Maintenance Due Date Last Done Comments HEPATITIS C (HCV) SCREEN 1955 DTaP,Tdap,and Td Vaccines (1 - Tdap) 1973 COLON CANCER SCREENING ANNUAL FIT/FOBT 02/22/2004 COLON CANCER SCREENING FIT DNA EVERY 3 YEARS 02/22/2004 COLON CANCER SCREENING SIGMOIDOSCOPY EVERY 5 YEARS 02/22/2004 COLONOSCOPY 02/22/2004 Colorectal Cancer Screening 02/22/2004 Zoster Recombinant Vaccine (SHINGRIX) (1 of 2) 02/22/2004 Medicare Wellness Visit 2019 PNEUMOCOCCAL VACCINES 65+ (1 of 1 - PPSV23) 2019 INFLUENZA VACCINE (#1) 2020 08/01/2019 Depression Screening 11/28/2020 11/28/2019 documented as of this encounter Results Not on filedocumented in this encounter Visit Diagnoses Diagnosis Chronic systolic heart failure documented in this encounter Insurance Payer Benefit Plan / Subscriber ID Effective Phone Address T e Group Dates MARQUISEKT KASSIE NILDA KASSIE [id number] 2020-Prese Medicare Adv PLUS PLUS CHOICE nt HMO/POS COMMERCIAL COMMERCIAL [id number] 2019-Prese HM O/PPO/POS NON-CONTRACT NON-CONTRACT nt GENERIC GENERIC documented as of this encounter
--- OUTSIDE RECORDS SUMMARY | 2020-08-23 00:20 | XMS REPORT | Summary of Care ---
:1955 Author Organization [facility] - Health Address [address] [place] [address] Care Team Providers Name Role Phone Benjamín Gabriel Primary Care Provider Encounter Details Date Type Department Care Team Description 06/11/2020 Orders Only [facility] Doctor Unassigned, No [address] [facility] [place] [address] [address] [place] [address] Allergies No Known Allergiesdocumented as of this encounter (statuses as of 06/28/2020) Medications Medication Sig Dispensed Refills Start Date End Date Status metFORMIN 1,000 mg Take 1,000 mg by 0 Active tablet mouth 2 (two) times daily with meals. glimepiride 4 mg Take 4 mg by 0 Active tablet mouth 2 (two) times daily. UBIDECAR/FISH Take by mouth. 0 Active OIL/OMEGA-3/OSMIN (CO [id number] OIL-OMEGA 3-E ORAL) nitroglycerin 0.[address] 1 tablet 1 Bottle 0 06/25/2019 Active sublingual tablet under the tongue every 5 (five) minutes as needed for Chest pain. aspirin 81 mg EC Take 1 tablet by 0 08/19/2019 Active tabletIndications: mouth daily. Stenosis of carotid artery, unspecified laterality SITagliptin (JANUVIA) Take 100 mg by 0 Active 100 mg tablet mouth daily. liraglutide (VICTOZA inject 1.8 mg 0 Active 3-АЛЕКСАНДР SC) under the skin daily. gabapentin 300 mg Take 300 mg by 0 Active capsule mouth 3 (three) times daily. tamsulosin 0.4 mg 24 Take by mouth 0 Active hr capsule daily. multivitamin tablet Take 1 tablet by 0 Active mouth daily. [id number] Take by mouth 0 Active ORAL daily. fenofibrate 145 mg Take 1 tablet by 90 tablet 1 09/11/2019 Active tabletIndications: mouth daily. Right hand pain, PAD (peripheral artery disease) carvediloL 6.25 mg Take 1 tablet by 180 tablet 3 01/12/2020 Active tabletIndications: mouth 2 (two) Chronic systolic heart times daily with failure meals. furosemide 40 mg Take 1 tablet by 90 tablet 1 01/12/2020 Active tabletIndications: mouth daily. Chronic systolic heart failure isosorbide mononitrate Take 1 tablet by 90 tablet 3 01/13/2020 Active 120 mg 24 hr mouth daily. tabletIndications: Stenosis of carotid artery, unspecified laterality lisinopril 40 mg Take 1 tablet by 90 tablet 1 04/12/2020 Active tabletIndications: mouth daily. Chronic systolic heart failure atorvastatin 80 mg Take 1 tablet by 90 tablet 1 04/28/2020 Active tabletIndications: mouth at Stenosis of carotid bedtime. artery, unspecified laterality icosapent ethyl Take 2 capsules 120 capsule 2 04/28/2020 Active (VASCEPA) 1 gram by mouth 2 (two) capsuleIndications: times daily. Stenosis of carotid artery, unspecified laterality, Hyperlipidemia, unspecified hyperlipidemia type, Elevated triglycerides with high cholesterol clopidogreL 75 mg Take 1 tablet by 30 tablet 6 05/06/2020 Active tabletIndications: mouth daily. Stenosis of carotid artery, unspecified laterality documented as of this encounter (statuses as of 06/28/2020) Active Problems No known active problemsdocumented as of this encounter (statuses as of 06/28/2020) Immunizations Name Administration Dates Next Due Influenza [...] Office Visit Cardiology Tiffanie Turner M D [address] [place] [address] [phone] Health Maintenance Due Date Last Done Comments [...] 11/28/2020 11/28/2019 documented as of this encounter Procedures Procedure Name Priority Date/Time Associated Diagnosis Comme nts PHYSICIAN ORDERS Routine 06/11/2020 12:01 AM CDT documented in this encounter Results Not on filedocumented in this encounter Insurance Payer Benefit Plan / Subscriber ID Effective Phone Address T ype Group Dates NILDA FERNANDO [id number] 2020-Prese Medicare Adv PLUS PLUS CHOICE nt HMO/POS COMMERCIAL COMMERCIAL [id number] 2019-Prese HM O/PPO/POS NON-CONTRACT NON-CONTRACT nt GENERIC GENERIC documented as of this encounter
--- OUTSIDE RECORDS SUMMARY | 2020-08-23 00:21 | XMS REPORT ---
:1955 Author Organization [facility] Address [address] [place], [address] [place] [address] Care Team Providers Name Role Phone Benjamín Gabriel Unavailable [phone] PROBLEMS Type Condition ICD9-CM [id number] Onset Condition SNOMED Code Notes Code Code Dates Status Problem Arteriosclerosis I25.10 Active 447855670040469 of coronary artery Problem Status post 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 176731068 implantation of automatic cardioverter/defib rillator (AICD) Problem Hyperlipidemia, E78.2 Active 582020756 mixed Problem Noncompliance with Z91.11 Active 447451536 dietary restriction Problem Adult BMI Z68.35 Active 238397566 35.0-35.9 kg/sq m Problem Body mass index Z68.35 Active 106363430 (BMI) of 35.0-35.9 in adult Problem Morbid (severe) E66.01 Active 051083303 obesity due to excess calories Problem Coronary artery I25.119 Active 1078879930588 disease involving [place] coronary artery of [place] heart with angina pectoris Problem Diabetes type 2, E11.65 Active 750866754 uncontrolled Problem Chronic systolic I50.22 Active 451321491 heart failure Problem Stented coronary Z95.5 Active 008570524 artery Problem Benign essential I10 Active 43300655 HTN Problem Coronary artery I25.709 Active 388591016 disease involving coronary bypass graft of [place] heart with angina pectoris Problem Proteinuria, R80.9 Active 35532136 unspecified Problem 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 Active 355744287 Problem Status post fall Z91.81 Active 855817900 Problem Type 2 diabetes E11.29 Active 179764567509584 mellitus with other diabetic kidney complication Problem Primary M16.0 Active 784636791 osteoarthritis of both hips Problem NIKI (obstructive G47.33 Active 86540850 sleep apnea) Problem Peripheral artery I73.9 Active 382720089 disease Problem 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 965099428602707 carotid artery Problem BPH loc w/o ur N40.0 Active 294536013 obs/LUTS Problem Erectile N52.9 Active 397883099 dysfunction, unspecified erectile dysfunction type Problem Lumbago with M54.41 Active 508123685 sciatica, right side Problem Right hip pain M25.551 Active 034166249661142 Problem Other chronic pain G89.29 Active 60143538 Problem Other M47.896 Active 46211060 osteoarthritis of spine, lumbar region Problem PAD (peripheral I73.9 Active 043199137 artery disease) Problem Right hand R20.2 Active 661204988 paresthesia Problem Hypomagnesemia E83.42 Active 132983006 Problem CKD (chronic N18.3 Active 262196754 kidney disease) stage 3, GFR 30-59 ml/min Problem Long-term insulin Z79.4 Active 837462702 use ALLERGIES No Known Allergies ENCOUNTERS from 1955 to 2020-06-30 Encounter Location Date Provider Diagnosis Jonny Martines [address] [place], Benjamín Gabriel Other ost eoarthritis of Drive Family [address] [place], spine, lum [facility] region [facility] [address] M47.896 ; Lumb ago with sciatica, right side M54.41 and Othe r chronic pain G8 9.29 IMMUNIZATIONS Vaccine Route Administration Date Status FluAD IM Intramuscular Jun 28, 2020 Pending Prevnar 13 -Pneumonia Vaccine IM Intramuscular Jul 03, 2019 A dministered FLUZONE HIGH DOSE OVER 65 IM Intramuscular Jun 04, 2019 Admin istered Kenalog (Triamcinolone) IM Intramuscular March 19, 2019 Adminis tered SOCIAL HISTORY Tobacco Use: Social History Observation Description Date Details (start date - stop date) Never Smoker Sex Assigned At : Social History Observation Description Sex Assigned At Unknown PHQ9 Question Answer Notes Little interest or pleasure in doing things More than half t he days Feeling down, depressed, or hopeless Not at all Trouble falling or staying asleep or sleeping too much Sever al days Feeling tired or having little energy Several days Poor appetite or overeating Several days Feeling bad about yourself, or that you are a failure, Sever al days or have let yourself or your family down Trouble concentrating on things, such as reading the Not at all newspaper or watching television Moving or speaking so slowly that other people could Not at all have noticed; or the opposite, being so fidgety or restless that you have been moving around a lot more than usual Total Score 6 Interpretation Mild Depression Thoughts that you would be better off or of Not at all hurting yourself in some way Alcohol Screen Question Answer Notes Did you have a drink containing alcohol in the past Yes year? Points 1 Interpretation Negative How often did you have a drink containing alcohol in Monthly or less (1 point) the past year? Tobacco Use/Smoking Question Answer Notes Are you a never smoker REASON FOR REFERRAL No Information VITAL SIGNS No information MEDICATIONS Medication SIG (Take, Route, Start Date End Date Status Frequency, Duration) Coreg 3.125 MG 1 tab Orally BID for 30 Ac tive days Multivitamin Adults - as directed Orally Active Victoza 18 MG/3ML as directed Subcutaneous Active once a day Lisinopril 2.5 MG 1 tablet Orally Once a Active day for 30 days Metformin HCl 1000 MG TAKE ONE TABLET BY MOUTH Active TWICE A DAY WITH A MEAL for 30 [id number]-Ewomkumvd-Gjnn - as directed Orally Not-Taking Aspir-81 81 MG 1 tablet Orally Once a Act [place] day Furosemide 40 MG 1 tablet Orally Once a A ctive day PRN SWELLING Glimepiride 4 MG TAKE ONE TABLET BY MOUTH Active TWICE A DAY WITH BREAKFAST OR THE FIRST MAIN MEAL OF THE DAY for 30 Isosorbide Mononitrate ER 1 tablet in the morning Active 30 MG Orally Once a day for 30 days Lipitor 80 MG 1 tablet Orally Once a Acti ve day for 30 Januvia 100 MG 1 tablet Orally Once a Not -Taking day for 30 Clopidogrel Bisulfate 75 MG TK 1 T PO D Oral Active Tamsulosin HCl 0.4 MG 1 capsule Orally BID for Active 90 Spironolactone 25 MG 1 tablet Orally Once a Active day Metformin HCl 1000 MG 1 tablet with meals Active Orally Twice a day Nitroglycerin 0.4 MG as directed Sublingual Active Contour next testing strips n/s finger prick once Active n/s daily Gabapentin 300 MG 2 capsule Orally three Active times a day Carvedilol 3.125 MG 1 tablet Orally Twice a Active day for 30 day(s) Tresiba FlexTouch 100 Inject 10 units Jun, Act [place] UNIT/ML Subcutaneous Once a day for 30 days Fenofibrate 145 MG 1 tablet with food Orally Active Once a day for 30 day(s) Magnesium Oxide 400 MG 1 tablet as needed Orally Active Once a day for 30 day(s) PROCEDURES No Information RESULTS No Results REASON FOR VISIT refer spine ortho MEDICAL (GENERAL) HISTORY Type Description Date Medical History Diabetes type 2, uncontrolled Medical History Benign essential HTN Medical History Arteriosclerosis of coronary artery Medical History Stented coronary artery Medical History Status post implantation of automatic cardioverter/defibrillator (AICD) Medical History Hyperlipidemia, mixed Medical History Microalbuminuria Surgical History CABG x 3: COSBY to LAD, saphenous vein t o OM1 and saphenous 07/2019 vein to diagonal on 07/21/2019. [facility] No Information Health Concerns No Information MEDICAL EQUIPMENT No Information MENTAL STATUS No Information FUNCTIONAL STATUS No Information ASSESSMENTS Encounter Date Diagnosis Notes Jun, Other chronic pain (ICD-10 - G89.29) Jun, Lumbago with sciatica, right side (ICD-1 0 - M54.41) Jun, Other osteoarthritis of spine, lumbar re gion (ICD-10 - M47.896) PLAN OF TREATMENT Next Appt Details Provider Name:Vanita Pina, 09:00:00 AM, [address] [place] [address] [address], [place], [address], Insurance Providers Payer Name Payer Payer Insured Name Patient Coverage Covera End Address Phone Relationship to Start Date Feliciano e Insured [employer] [address] [address] [phone] Jayme Galeano self [address] [facility] [id number]
--- OUTSIDE RECORDS SUMMARY | 2020-08-23 00:21 | XMS REPORT ---
:1955 Author Organization [facility] Address [address] [place], [address] [place] [address] Care Team Providers Name Role Phone Benjamín Gabriel Unavailable [phone] PROBLEMS Type Condition ICD9-CM [id number] Onset Condition SNOMED Code Notes Code Code Dates Status Problem Arteriosclerosis I25.10 Active 075645581208800 of coronary artery Problem Status post 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 575542268 implantation of automatic cardioverter/defib rillator (AICD) Problem Hyperlipidemia, E78.2 Active 413592920 mixed Problem Noncompliance with Z91.11 Active 339834137 dietary restriction Problem Adult BMI Z68.35 Active 514114976 35.0-35.9 kg/sq m Problem Body mass index Z68.35 Active 754686601 (BMI) of 35.0-35.9 in adult Problem Morbid (severe) E66.01 Active 896725086 obesity due to excess calories Problem Coronary artery I25.119 Active 7625874984274 disease involving [place] coronary artery of [place] heart with angina pectoris Problem Diabetes type 2, E11.65 Active 665895643 uncontrolled Problem Chronic systolic I50.22 Active 723820234 heart failure Problem Stented coronary Z95.5 Active 221841579 artery Problem Benign essential I10 Active 92812137 HTN Problem Coronary artery I25.709 Active 505185873 disease involving coronary bypass graft of [place] heart with angina pectoris Problem Proteinuria, R80.9 Active 53208838 unspecified Problem 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 Active 062922727 Problem Status post fall Z91.81 Active 460020682 Problem Type 2 diabetes E11.29 Active 749327850184583 mellitus with other diabetic kidney complication Problem Primary M16.0 Active 744731553 osteoarthritis of both hips Problem NIKI (obstructive G47.33 Active 35807026 sleep apnea) Problem Peripheral artery I73.9 Active 274186523 disease Problem 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 910783781379574 carotid artery Problem BPH loc w/o ur N40.0 Active 833992278 obs/LUTS Problem Erectile N52.9 Active 411149679 dysfunction, unspecified erectile dysfunction type Problem Lumbago with M54.41 Active 329742603 sciatica, right side Problem Right hip pain M25.551 Active 520111558839320 Problem Other chronic pain G89.29 Active 01642476 Problem Other M47.896 Active 79553375 osteoarthritis of spine, lumbar region Problem PAD (peripheral I73.9 Active 544408027 artery disease) Problem Right hand R20.2 Active 488779416 paresthesia Problem Hypomagnesemia E83.42 Active 607082706 Problem CKD (chronic N18.3 Active 504661224 kidney disease) stage 3, GFR 30-59 ml/min Problem Long-term insulin Z79.4 Active 262110758 use ALLERGIES No Known Allergies ENCOUNTERS from 1955 to 2020-06-30 Encounter Location Date Provider Diagnosis Jonny Martines [address] [facility] Jun, Benjamín Gabriel Changing skin lesion Drive Family [address] [place] [address], L98.9 ; [place] [facility] [place] [address] R23.8 ; Need f or influenza vacci nation Z23 and Hyperpi gmented skin lesion L81 .9 IMMUNIZATIONS Vaccine Route Administration Date Status FluAD [...] REASON FOR REFERRAL No Information VITAL SIGNS Height 65 in Jun, Weight 209.4 lbs Jun, Temperature 97.5 degrees Fahrenheit Jun, BMI 34.84 kg/m2 Jun, Oximetry 97 % Jun, Respiratory Rate 17 /min Jun, Blood pressure systolic 135 mm Hg Jun, Blood pressure diastolic 69 mm Hg Jun, MEDICATIONS Medication SIG (Take, Route, Start Date [...] A DAY WITH A MEAL for 30 Hmxiwyv-Wbqaimjam-Brqt - as directed Orally Not-Taking Aspir-81 81 [...] day(s) Tresiba FlexTouch 100 Inject 10 units 11 Jun, 2020 Act [place] UNIT/ML Subcutaneous Once a day for 30 days Fenofibrate 145 MG 1 tablet with food Orally Active Once a day for 30 day(s) Magnesium Oxide 400 MG 1 tablet as needed Orally Active Once a day for 30 day(s) PROCEDURES No Information RESULTS No Results REASON FOR VISIT changing rash/?Biopsy In [facility] MEDICAL (GENERAL) HISTORY Type Description Date Medical [...] Information ASSESSMENTS Encounter Date Diagnosis Notes Jun, Hyperpigmented skin lesion (ICD-10 - L81 .9) Jun, Need for influenza vaccination (ICD-10 - Z23) Jun, Skin irritation (ICD-10 - R23.8) Jun, Changing skin lesion (ICD-10 - L98.9) PLAN OF TREATMENT Treatment Notes Assessment Notes Clinical Notes Changing skin lesion Discussed differential diagnosis with p atient. Education given. Etiology unknown at th is time. With minimal relief with zbxk-rgk-nugxsb r medication impacting patient discussed p ossible treatment options once etiology is known . Patient declined referral to dermatology at this time. Opted for punch biopsy for defini te diagnosis. Discussed risk, complication s, benefits, alternative treatment options. Consent signed. See attached note. Procedure a nd completed. See procedure note. Patient tolerated well. Sent for pathology. Treatment Notes Test Name Order Date Dermatopathology Report 2020-06-30 Next Appt Details prn Reason: Provider Name:Vanita Pina, 09:00:00 AM, [address] [place] [address] [address], [facility] [address], [place], [address], Insurance Providers Payer Name Payer Payer Insured Name Patient Coverage Covera End Address Phone Relationship to Start Date Feliciano e Insured [employer] [address] [address] [phone] Jayme Galeano [address] [facility] 78 [phone]
--- OUTSIDE RECORDS SUMMARY | 2020-08-23 00:21 | XMS REPORT ---
:[address] [facility] Address [address] [place], [address] [place] [address] Care Team Providers Name Role Phone Benjamín Gabriel Unavailable [phone] PROBLEMS Type Condition ICD9-CM [id number] Onset Condition SNOMED Code Notes Code Code Dates Status Problem Arteriosclerosis I25.10 Active 480772646419776 of coronary artery Problem Status post 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 863828844 implantation of automatic cardioverter/defib rillator (AICD) Problem Hyperlipidemia, E78.2 Active 829768242 mixed Problem Noncompliance with Z91.11 Active 794124387 dietary restriction Problem Adult BMI Z68.35 Active 683382563 35.0-35.9 kg/sq m Problem Body mass index Z68.35 Active 068179820 (BMI) of 35.0-35.9 in adult Problem Morbid (severe) E66.01 Active 731689585 obesity due to excess calories Problem Coronary artery I25.119 Active 4464619362060 disease involving [place] coronary artery of [place] heart with angina pectoris Problem Diabetes type 2, E11.65 Active 576457239 uncontrolled Problem Chronic systolic I50.22 Active 015931566 heart failure Problem Stented coronary Z95.5 Active 237266958 artery Problem Benign essential I10 Active 82127179 HTN Problem Coronary artery I25.709 Active 842392879 disease involving coronary bypass graft of [place] heart with angina pectoris Problem Proteinuria, R80.9 Active 85735153 unspecified Problem 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 Active 659843398 Problem Status post fall Z91.81 Active 724756194 Problem Type 2 diabetes E11.29 Active 178362454976787 mellitus with other diabetic kidney complication Problem Primary M16.0 Active 883354565 osteoarthritis of both hips Problem NIKI (obstructive G47.33 Active 55983218 sleep apnea) Problem Peripheral artery I73.9 Active 434072815 disease Problem 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 513782228060292 carotid artery Problem BPH loc w/o ur N40.0 Active 445477812 obs/LUTS Problem Erectile N52.9 Active 835659223 dysfunction, unspecified erectile dysfunction type Problem Lumbago with M54.41 Active 723305704 sciatica, right side Problem Right hip pain M25.551 Active 207022764022595 Problem Other chronic pain G89.29 Active 84766791 Problem Other M47.896 Active 85730341 osteoarthritis of spine, lumbar region Problem PAD (peripheral I73.9 Active 170635111 artery disease) Problem Right hand R20.2 Active 192676357 paresthesia Problem Hypomagnesemia E83.42 Active 299618823 Problem CKD (chronic N18.3 Active 773416719 kidney disease) stage 3, GFR 30-59 ml/min Problem Long-term insulin Z79.4 Active 501347655 use ALLERGIES No Known Allergies ENCOUNTERS from 1955 to 2020-07-12 Encounter Location Date Provider Diagnosis [facility] [address] [facility] [address], [place] [address] IMMUNIZATIONS Vaccine Route Administration Date Status FluAD [...] A DAY WITH A MEAL for 30 Njgrfjw-Vsihbmrpf-Dpal - as directed Orally Not-Taking Aspir-81 81 [...] Information RESULTS No Results REASON FOR VISIT DM supply Rx MEDICAL (GENERAL) HISTORY Type Description Date Medical [...] No Information FUNCTIONAL STATUS No Information ASSESSMENTS No Information PLAN OF TREATMENT Next Appt Details Provider Name:Vanita Pina, 09:00:00 AM, [address] [place] [address] S, [address], [place], [address], Insurance Providers Payer Name Payer Payer Insured Name Patient Coverage Covera ge End Address Phone Relationship to Start Date Feliciano e Insured [employer] [address] [address] [phone] Jayme Galeano [address] [facility] 78 [phone]
--- OUTSIDE RECORDS SUMMARY | 2020-08-23 00:21 | XMS REPORT ---
:[address] [facility] Address [address] [place], [address] [place] [address] Care Team Providers Name Role Phone Benjamín Gabriel Unavailable [phone] PROBLEMS Type Condition ICD9-CM [id number] Onset Condition SNOMED Code Notes Code Code Dates Status Problem Arteriosclerosis I25.10 Active 999696515608232 of coronary artery Problem Status post 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 872732377 implantation of automatic cardioverter/defib rillator (AICD) Problem Hyperlipidemia, E78.2 Active 350962216 mixed Problem Noncompliance with Z91.11 Active 033613316 dietary restriction Problem Adult BMI Z68.35 Active 873305329 35.0-35.9 kg/sq m Problem Body mass index Z68.35 Active 934535777 (BMI) of 35.0-35.9 in adult Problem Morbid (severe) E66.01 Active 831991238 obesity due to excess calories Problem Coronary artery I25.119 Active 2510859108130 disease involving [place] coronary artery of [place] heart with angina pectoris Problem Diabetes type 2, E11.65 Active 235796466 uncontrolled Problem Chronic systolic I50.22 Active 094953252 heart failure Problem Stented coronary Z95.5 Active 962433477 artery Problem Benign essential I10 Active 72806961 HTN Problem Coronary artery I25.709 Active 616237471 disease involving coronary bypass graft of [place] heart with angina pectoris Problem Proteinuria, R80.9 Active 66915549 unspecified Problem 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 Active 405594041 Problem Status post fall Z91.81 Active 883118776 Problem Type 2 diabetes E11.29 Active 639045308187292 mellitus with other diabetic kidney complication Problem Primary M16.0 Active 500858736 osteoarthritis of both hips Problem NIKI (obstructive G47.33 Active 15673021 sleep apnea) Problem Peripheral artery I73.9 Active 041499767 disease Problem 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 667013701792178 carotid artery Problem BPH loc w/o ur N40.0 Active 520510424 obs/LUTS Problem Erectile N52.9 Active 443433568 dysfunction, unspecified erectile dysfunction type Problem Lumbago with M54.41 Active 658988384 sciatica, right side Problem Right hip pain M25.551 Active 706438153394313 Problem Other chronic pain G89.29 Active 37631570 Problem Other M47.896 Active 29995955 osteoarthritis of spine, lumbar region Problem PAD (peripheral I73.9 Active 535115931 artery disease) Problem Right hand R20.2 Active 330915642 paresthesia Problem Hypomagnesemia E83.42 Active 706167213 Problem CKD (chronic N18.3 Active 009888219 kidney disease) stage 3, GFR 30-59 ml/min Problem Long-term insulin Z79.4 Active 963018468 use ALLERGIES No Known Allergies ENCOUNTERS from 1955 to 2020-07-02 Encounter Location Date Provider Diagnosis [facility] [address] [facility] [address], [place] [address] IMMUNIZATIONS Vaccine Route Administration Date Status FluAD [...] A DAY WITH A MEAL for 30 Gyqyvuc-Gmciwzarr-Wrlm - as directed Orally Not-Taking Aspir-81 81 [...] Information RESULTS No Results REASON FOR VISIT Bx skin neck, hand results MEDICAL (GENERAL) HISTORY Type Description Date Medical [...] Appt Details Provider Name:Vanita Pina, 09:00:00 AM, [address] [place] [address] S, [address], [place], [address], Insurance Providers Payer Name Payer Payer Insured Name Patient Coverage Covera ge End Address Phone Relationship to Start Date Feliciano e Insured [employer] [address] [address] [phone] Jayme Galeano [address] [facility] 78 [phone]
--- OUTSIDE RECORDS SUMMARY | 2020-08-23 00:22 | XMS REPORT | Summary of Care ---
:1955 Author Organization [facility] Address [address] [place] [address] Care Team Providers Name Role Phone Benjamín Gabriel Primary Care Provider Reason for Referral (Routine) Status Reason Specialty Diagnoses / Referred By Referred To Procedures Contact Contact New Request Diagnoses Carotid artery disease, unspecified laterality, unspecified type Tiffanie Turner MD Procedures CAROTID DUPLEX BILATERAL BY VASCULAR LAB [address] [facility] [address] [place], [place] [address] (Routine) Status Reason Specialty Diagnoses / Referred By Referred To Procedures Contact Contact New Request Diagnoses PAD (peripheral artery disease) Tiffanie Turner MD Procedures BILATERAL DUPLEX SCAN OF ARTERY BY VASCULAR LAB [address] [facility] [address] [place], [place] [address] (Routine) Status Reason Specialty Diagnoses / Referred By Referred To Procedures Contact Contact New Request Cardiology Diagnoses Coronary artery disease involving [place] coronary artery of [place] heart without angina pectoris Tiffanie Turner MD Procedures ECHO ROUTINE W/DOPPLER COLOR Preferred Location: [facility] [address] [place] [address] [address] [place], [place] [address] (Routine) Status Reason Specialty Diagnoses / Referred By Referred To Procedures Contact Contact New Request Vascular Surgery Diagnoses PAD (peripheral artery disease) Tiffanie Turner Procedures JAME MULTI LEVEL BY VASCULAR LAB [address] [place] [address] [address] [place] [address] Reason for Visit Reason Comments Follow-up 6mo Ekg Done today in Office Encounter Details Date Type Department Care Team Description [facility] Coronary artery disease involving [place] coronary artery of [place] heart without angina pectoris (Primary Dx); Cardiology- [address] PAD (peripheral artery disea se); [address] [place] [address] DRIVE Carotid artery disease, unspecified late rality, unspecified type; Drive, [address] Chronic systolic heart failure; [place], [place], [place] [address] ICD (implantable cardioverter-defibrilla tor) in place; [id number] NIKI (obstructive sleep apnea) [phone] Allergies No Known Allergiesdocumented as of this encounter (statuses as of 07/14/2020) Medications Medication Sig Dispensed Refills Start Date End Date Status metFORMIN 1,000 mg Take 1,000 mg by 0 Active tablet mouth 2 (two) times daily with meals. glimepiride 4 mg Take 4 mg by 0 Active tablet mouth 2 (two) times daily. UBIDECAR/FISH Take by mouth. 0 Active OIL/OMEGA-3/OSMIN (CO W24-BDAA OIL-OMEGA 3-E ORAL) nitroglycerin 0.[address] [...] 1 tablet by 0 Active mouth daily. [id number] Take by mouth 0 Active ORAL daily. [...] daily. Stenosis of carotid artery, unspecified laterality spironolactone 25 mg Take 1 tablet by 30 tablet 1 06/17/2020 Active tabletIndications: mouth daily. Chronic systolic heart failure documented as of this encounter (statuses as of 07/14/2020) Active Problems No known active problemsdocumented as of this encounter (statuses as of 07/14/2020) Immunizations Name Administration Dates Next Due Influenza High Dose 08/01/2019 documented as of this encounter Social History Tobacco Use Types Packs/Day Years Used Date Never Smoker Smokeless Tobacco: Never Used Alcohol Use Drinks/Week oz/Week Comments Yes 12 Cans of beer 12.0 Sex Assigned at Date Recorded Not on file COVID-19 Exposure Response Date Recorded In the last month, have you been in contact with No / Unsure 07/14/2020 2:56 PM CDT someone who was confirmed or suspected to have Coronavirus / COVID-19? documented as of this encounter Last Filed Vital Signs Vital Sign Reading Time Taken Comments Blood Pressure 112/69 07/14/2020 2:58 PM CDT Pulse 86 07/14/2020 2:58 PM CDT Temperature - - Respiratory Rate 19 07/14/2020 2:58 PM CDT Oxygen Saturation 95% 07/14/2020 2:58 PM CDT Inhaled Oxygen Concentration - - Weight 95.8 kg (211 lb 3.2 oz) 07/14/2020 2:58 PM CDT Height 165.1 cm (5' 5") 07/14/2020 2:58 PM CDT Body Mass Index 35.15 07/14/2020 2:58 PM CDT documented in this encounter Progress Notes Tiffanie Turner MD - 07/14/2020 2:40 PM CDT CARDIOLOGY CLINIC NOTE 07/14/2020 Reason for Referral/Presenting Complaint: CAD, HFrEF PCP: Benjamín Gabriel History of Present Illness: Jayme Galeano is a 65 years old male with history of HTN, HLD, DM, obesity, NIKI, CAD s/p PCI with 2 stents in 2007, and HFrEF s/p ICD ([employer]) in 2015. In 2007 he presented with chest pain and fatigue. Found to have CAD and underwent PCI with 2 stents.Has been having exertional central chest burning for years. No pain at rest. Pain resolves with resting. He was told his LVEF was 25% and underwent ICD implantation in 2015. We added Imdur for chest pain. In 07/2019, he was admitted for NSTEMI in [facility]. 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 s/p Aortocoronary bypass times 3: COSBY TO LAD, SAPHENOUS VEIN TO OM1 and SAPHENOUS VEIN TO DIAGONAL on 07/21/2019 Echo showed reduced EF of 25-29%. He stated that since the CABG, he has been having R 4th and 5th fingers pain and numbness all the time. "About 1 wk ago he was admitted to [facility] for low BP. The following meds were stopped--lasix, spironolactone, lipitor and plavix. Currently he is feeling well." Since last visit he has been feeling well. No edema. No chest pain. Lost a few lbs. No edema. EKG--07/14/2020--reviewed by me--normal sinus rhythm, inferior infarct, anterolateral infarct. 10/2019 [facility] Dizziness, low BP--improved with IVF Review of Systems: General: (-) fever, (-) chills, (-) weight change, (-) dizziness, (+) fatigue Skin: (-) rash HEENT: (-) headache, (-) change in vision Neck: (-) difficulty swallowing Heme: negative Resp: (-) cough, (+) dyspnea on exertion Cardio: (-) chest pain, (-) palpitations, (-) syncope GI: (-) vomiting, (-) diarrhea : negative Endo: (+) diabetes, (-) thyroid disease Neuro: (+) numbness, (-) tingling, (-) weakness Back: (-) pain BRIAN: (-) muscle pain, (-) claudication Psych: (-) anxiety, (-) depression Past Medical History: Past Medical History: Diagnosis Date Diabetes mellitus Hypertension Current Medications: Current Outpatient Medications Medication Sig Dispense Refill spironolactone 25 mg tablet Take 1 tablet by mouth daily. 30 tablet 1 clopidogreL 75 mg tablet Take 1 tablet by mouth daily. 30 tablet 6 atorvastatin 80 mg tablet Take 1 tablet by mouth at bedtime. 90 tablet 1 icosapent ethyl (VASCEPA) 1 gram capsule Take 2 capsules by mouth 2 (two) times daily. 120 capsule 2 lisinopril 40 mg tablet Take 1 tablet by mouth daily. 90 tablet 1 isosorbide mononitrate 120 mg 24 hr tablet Take 1 tablet by mouth daily. 90 tablet 3 carvediloL 6.25 mg tablet Take 1 tablet by mouth 2 (two) times daily with meals. 180 tablet 3 furosemide 40 mg tablet Take 1 tablet by mouth daily. 90 tablet 1 DPOSVNL-PEQKORQKI-ZBLI ORAL Take by mouth daily. fenofibrate 145 mg tablet Take 1 tablet by mouth daily. 90 tablet 1 gabapentin 300 mg capsule Take 300 mg by mouth 3 (three) times daily. liraglutide (VICTOZA 3-АЛЕКСАНДР SC) inject 1.8 mg under the skin daily. multivitamin tablet Take 1 tablet by mouth daily. SITagliptin (JANUVIA) 100 mg tablet Take 100 mg by mouth daily. tamsulosin 0.4 mg 24 hr capsule Take by mouth daily. aspirin 81 mg EC tablet Take 1 tablet by mouth daily. glimepiride 4 mg tablet Take 4 mg by mouth 2 (two) times daily. metFORMIN 1,000 mg tablet Take 1,000 mg by mouth 2 (two) times daily with meals. UBIDECAR/FISH OIL/OMEGA-3/OSMIN (CO W77-XNTC OIL-OMEGA 3-E ORAL) Take by mouth. nitroglycerin 0.[address] 1 tablet under the tongue every 5 (five) minutes as needed for Chest pain. 1 Bottle 0 No current facility-administered medications for this visit. Social History: Social History Socioeconomic History Marital status: Spouse name: Not on file Number of children: Not on file Years of education: Not on file Highest education level: Not on file Occupational History Not on file Social Needs Financial resource strain: Not on file Food insecurity Worry: Not on file Inability: Not on file Transportation needs Medical: Not on file Non-medical: Not on file Tobacco Use Smoking status: Never Smoker Smokeless tobacco: Never Used Substance and Sexual Activity Alcohol use: Yes Alcohol/week: 12.0 standard drinks Types: 12 Cans of beer per week Drug use: No Sexual activity: Not on file Lifestyle Physical activity Days per week: Not on file Minutes per session: Not on file Stress: Not on file Relationships Social connections Talks on phone: Not on file Gets together: Not on file Attends rastafari service: Not on file Active member of club or organization: Not on file Attends meetings of clubs or organizations: Not on file Relationship status: Not on file Intimate partner violence Fear of current or ex partner: Not on file Emotionally abused: Not on file Physically abused: Not on file Forced sexual activity: Not on file Other Topics Concern Not on file Social History Narrative He lives with his and 2 children. He's retired. He's somewhat active. Family History Family History Problem Relation Age of Onset Diabetes Mother Heart Mother [place] (myocardial infarction) Sister 45 DM type 1 Heart Father Physical Examination: Vitals: 07/14/20 1458 BP: 112/69 BP Location: Left arm Patient Position: Sitting BP CUFF SIZE: Adult Large Pulse: 86 Resp: 19 SpO2: 95% Weight: 211 lb 3.2 oz (95.8 kg) Height: 5' 5" (1.651 m) Constitutional: alert and oriented x 3 (person, place and date/time); no apparent distress, obese ENT: normocephalic atraumatic, supple, no lymphadenopathy, + BL bruits, no JVD Lungs: clear to auscultation bilaterally Cardiovascular: S1, S2 normal, regular; no murmurs, rubs or gallops GI: soft; non-tender; non-distended; normoactive bowel sounds : not examined Musculoskeletal: Extremities: no clubbing, cyanosis, or edema, diminished ankle pulses Skin: no rashes Neuro: no focal deficits Cardiovascular testing: EKG: Normal sinus rhythm. LVH. Inferior and anterior infarct. 09/11/2019 --EKG--reviewed by me--Normal sinus rhythm Moderate voltage criteria for LVH Inferior infarct age undetermined Anterior infarct age undetermined T wave abnormality, consider lateral ischemia ECHO The left ventrical is moderately to severely dilated. There is normal left ventricular wall thickness. The overall left ventricular function appears severely reduced. The left ventricular diastolic function is consistant with impaired relaxation. Ejection Fraction = 20-25%. Septal motion is consistentwith conduction abnormality. There is moderate global hypokinesis of the left ventricle. Nuclear stress test -- 05/2018--LVEF 19%. Inferior fixed defect. No ischemia Assessment/Plan: ICD-10-CM ICD-9-CM 1. Coronary artery disease involving [place] coronary artery of [place] heart without angina [id number] 414.01 2. PAD (peripheral artery disease) I73.9 443.9 3. Carotid artery disease, unspecified laterality, unspecified type I77.9 447.9 4. Chronic systolic heart failure I50.22 428.22 5. ICD (implantable cardioverter-defibrillator) in place Z95.810 V45.02 6. NIKI (obstructive sleep apnea) G47.33 327.23 Right hand numbness/pain--Likely due to CABG/nerve compression. Referred to Neurology. CAD--S/p PCI with 2 stents in 2007. S/p 3-v CABG in 07/2019. Did not complete cardiac rehab. On ASA/coreg. PRN NTG. Now back on plavix/lipitor. HFrEF--No volume overload. On coreg/lisinopril. Back on spironolactone. Seen by HF/transplant team. Will repeat ECHO. NIKI--Sleep medicine for C-PAP adjustment. Unable to tolerate well. Carotid artery disease--Moderate disease. Medical therapy. Will repeat carotid duplex. ICD--Device function is normal. 11/2019 last check. Will schedule. He requests a new home carelink monitor. HTN--Well controlled. HLD--On high intensity lipitor. Goal LDL < 70. Now 65. Restarted lipitor. PAD--mild disease. Medical therapy. Will repeat JAME and arterial duplex. Patient was counseled for lifestyle modifications including: diet, exercise and weight loss. RTC 6 months Tiffanie Turner MD, FACCSAMIRA Brake Repairer, Division of Cardiology [facility] documented in this encounter Plan of Treatment Date Type Specialty Care Team Description 07/15/2020 Laboratory Only Cardiology Pc, Adc Echo Room 1 - 07/23/2020 Sr. Director Product Management Visit Cardiology Pc, Adc Vascular Room 1 - 07/23/2020 Sr. Director Product Management Visit Cardiology Pc, Adc Vascular Room 1 - 07/23/2020 Sr. Director Product Management Visit Cardiology Pc, Adc Vascular Room 1 - 09/07/2020 Laboratory Only Cardiology Pacemaker/Icd, Adc 01/12/2021 Office Visit Cardiology Tiffanie Turner M D [address] [place] [address] [phone] Name Type Priority Associated Diagnoses Order S chedule EKG-12 LEAD ROUTINE HEART STATION Routine Coronary artery Orde red: 07/14/2020 disease involving [place] coronary artery of [place] heart without angina pectoris Health Maintenance Due Date Last Done Comments [...] filedocumented in this encounter Visit Diagnoses Diagnosis Coronary artery disease involving [place] coronary artery of [place] heart without angina pectoris - Primary PAD (peripheral artery disease) Unspecified disorders of arteries and ar terioles Carotid artery disease, unspecified late rality, unspecified type Chronic systolic heart failure ICD (implantable cardioverter-defibrilla tor) in place NIKI (obstructive sleep apnea) Obstructive sleep apnea (adult) (pediatr ic) documented in this encounter Insurance Payer Benefit Plan / Subscriber ID Effective Phone Address T ype Group Dates NILDA FERNANDO [id number] 2020-Prese Medicare Adv PLUS PLUS CHOICE nt HMO/POS COMMERCIAL COMMERCIAL [id number] 2019-Prese HM O/PPO/POS NON-CONTRACT NON-CONTRACT nt GENERIC GENERIC documented as of this encounter
--- OUTSIDE RECORDS SUMMARY | 2020-08-23 00:22 | XMS REPORT | Summary of Care ---
:1955 Author Organization [facility] Address [address] [place] [address] Care Team Providers Name Role Phone Benjamín Gabriel Primary Care Provider Reason for Referral (Routine) Status Reason Specialty Diagnoses / Referred By Referred To Procedures Contact Contact New Request Diagnoses Carotid artery disease, unspecified laterality, unspecified type Tiffanie Turner MD Procedures CAROTID DUPLEX BILATERAL BY VASCULAR LAB [address] [facility] [address] [place], [place] [address] (Routine) Status Reason Specialty Diagnoses / Referred By Referred To Procedures Contact Contact New Request Diagnoses PAD (peripheral artery disease) Tiffanie Turner MD Procedures BILATERAL DUPLEX SCAN OF ARTERY BY VASCULAR LAB [address] [facility] [address] [place], [place] [address] (Routine) Status Reason Specialty Diagnoses / Referred By Referred To Procedures Contact Contact New Request Cardiology Diagnoses Coronary artery disease involving [place] coronary artery of [place] heart without angina pectoris Tiffanie Turner MD Procedures ECHO ROUTINE W/DOPPLER COLOR Preferred Location: [facility] [address] [place] [address] [address] [place], [place] [address] (Routine) Status Reason Specialty Diagnoses / Referred By Referred To Procedures Contact Contact New Request Vascular Surgery Diagnoses PAD (peripheral artery disease) Tiffanie Turner Procedures JAME MULTI LEVEL BY VASCULAR LAB [address] [place] [address] [address] [place] [address] Reason for Visit Reason Comments Follow-up 6mo Ekg Done today in Office Encounter Details Date Type Department Care Team Description [facility] Coronary artery disease involving [place] coronary artery of [place] heart without angina pectoris (Primary Dx); Cardiology- [address] PAD (peripheral artery disea se); [address] [place] [address] DRIVE Carotid artery disease, unspecified late rality, unspecified type; Drive, [address] Chronic systolic heart failure; [place], [place], [place] [address] ICD (implantable cardioverter-defibrilla tor) in place; [id number] NIKI (obstructive sleep apnea) [phone] Allergies No Known Allergiesdocumented as of this encounter (statuses as of 07/14/2020) Medications Medication Sig Dispensed Refills Start Date End Date Status metFORMIN 1,000 mg Take 1,000 mg by 0 Active tablet mouth 2 (two) times daily with meals. glimepiride 4 mg Take 4 mg by 0 Active tablet mouth 2 (two) times daily. UBIDECAR/FISH Take by mouth. 0 Active OIL/OMEGA-3/OSMIN (CO C46-CPAR OIL-OMEGA 3-E ORAL) nitroglycerin 0.[address] [...] 1 tablet by 0 Active mouth daily. [id number] Take by mouth 0 Active ORAL daily. [...] 07/2019, he was admitted for NSTEMI in [facility]. LHC showed 90% proximal LAD diseaseand SPRAY MIXER of RCA. s/p Aortocoronary bypass times 3: COSBY TO LAD, SAPHENOUS VEIN TO OM1 and SAPHENOUS VEIN TO DIAGONAL on 07/21/2019 Echo showed reduced EF of 25-29%. He stated that since the CABG, he has been having R 4th and 5th fingers pain and numbness all the time. "About 1 wk ago he was admitted to [facility] for low BP. The following meds were stopped--lasix, spironolactone, lipitor and plavix. Currently he is feeling well." Since last visit he has been feeling well. No edema. No chest pain. Lost a few lbs. No edema. EKG--07/14/2020--reviewed by me--normal sinus rhythm, inferior infarct, anterolateral infarct. 10/2019 [facility] Dizziness, low BP--improved with IVF Review [...] tablet by mouth daily. 90 tablet 1 [id number] ORAL Take by mouth daily. fenofibrate 145 [...] times daily with meals. UBIDECAR/FISH OIL/OMEGA-3/OSMIN (CO E53-WQGC OIL-OMEGA 3-E ORAL) Take by mouth. nitroglycerin [...] file Gets together: Not on file Attends episcopal service: Not on file Active member of [...] Age of Onset Diabetes Mother Heart Mother [place] (myocardial infarction) Sister 45 DM type 1 [...] ICD-10-CM ICD-9-CM 1. Coronary artery disease involving [place] coronary artery of [place] heart without angina acarczgjQ96.10 414.01 2. PAD (peripheral artery disease) I73.9 [...] RTC 6 months Tiffanie Turner MD, FACCSAMIRA Assistant, Division of Cardiology [facility] documented in this encounter Plan of Treatment Date Type Specialty Care Team Description 07/15/2020 Laboratory Only Cardiology Pc, Adc Echo Room 1 - 07/23/2020 Senior Devops Engineer Visit Cardiology Pc, Adc Vascular Room 1 - 07/23/2020 Senior Devops Engineer Visit Cardiology Pc, Adc Vascular Room 1 - 07/23/2020 Senior Devops Engineer Visit Cardiology Pc, Adc Vascular Room 1 - 09/07/2020 Laboratory Only Cardiology Pacemaker/Icd, Adc 01/12/2021 Office Visit Cardiology Tiffanie Turner M D [address] [place] [address] [phone] Name Type Priority Associated Diagnoses Order S chedule EKG-12 LEAD ROUTINE HEART STATION Routine Coronary artery Orde red: 07/14/2020 disease involving [place] coronary artery of [place] heart without angina pectoris Health Maintenance Due [...] Visit Diagnoses Diagnosis Coronary artery disease involving [place] coronary artery of [place] heart without angina pectoris - Primary PAD [...] Address T ype Group Dates NILDA FERNANDO [id number] 2020-Prese Medicare Adv PLUS PLUS CHOICE nt HMO/POS COMMERCIAL COMMERCIAL [id number] 2019-Prese HM O/PPO/POS NON-CONTRACT NON-CONTRACT nt GENERIC GENERIC documented as of this encounter
--- OUTSIDE RECORDS SUMMARY | 2020-08-23 00:23 | XMS REPORT | Summary of Care ---
:1955 Author Organization [facility] Address [address] [place] [address] Care Team Providers Name Role Phone Benjamín Gabriel Primary Care Provider Reason for Visit (Routine) Status Reason Specialty Diagnoses / Referred By Referred To Procedures Contact Contact New Request Diagnoses PAD (peripheral artery disease) Tiffanie Turner MD Procedures BILATERAL DUPLEX SCAN OF ARTERY BY VASCULAR LAB [address] [facility] [address] [place], [place] [address] Encounter Details Date Type Department Care Team Description 07/23/2020 Appointment [facility] Cardiology- Vianney Turner MD [address] [facility] [address] [place] [address] Arrived [facility], Adc Vascular Room 1 - [address] [facility], [address] [place] [address] Allergies No Known Allergiesdocumented as of this encounter (statuses as of 07/23/2020) Medications Medication Sig Dispensed Refills Start Date End Date Status metFORMIN 1,000 mg Take 1,000 mg by 0 Active tablet mouth 2 (two) times daily with meals. glimepiride 4 mg Take 4 mg by 0 Active tablet mouth 2 (two) times daily. UBIDECAR/FISH Take by mouth. 0 Active OIL/OMEGA-3/OSMIN (CO N71-NMYH OIL-OMEGA 3-E ORAL) nitroglycerin 0.[address] [...] 1 tablet by 0 Active mouth daily. [id number] Take by mouth 0 Active ORAL daily. [...] as of this encounter (statuses as of 07/23/2020) Active Problems No known active problemsdocumented as of this encounter (statuses as of 07/23/2020) Immunizations Name Administration Dates Next Due Influenza [...] Treatment Date Type Specialty Care Team Description 07/23/2020 Appointment Cardiology Tiffanie Turner M D [address] [facility] [address] [place], [place] [address] Arrived Pc, Adc Vascular Room 1 - 09/07/2020 Laboratory Only Cardiology Pacemaker/Icd, Adc 01/12/2021 Office Visit Cardiology Tiffanie Turner M D [address] [facility] [address] [place], [place] [address] Health Maintenance Due Date Last Done Comments [...] Effective Phone Address T ype Group Dates [employer] FERNANDO [id number] 2020-Prese Medicare Adv PLUS PLUS CHOICE nt HMO/POS COMMERCIAL COMMERCIAL [id number] 2019-Prese HM O/PPO/POS NON-CONTRACT NON-CONTRACT nt GENERIC GENERIC documented as of this encounter
--- OUTSIDE RECORDS SUMMARY | 2020-08-23 00:23 | XMS REPORT | Summary of Care ---
:1955 Author Organization [facility] - [facility] Address [address] [place] [address] Care Team Providers Name Role Phone GabrielBenjamín Inderjit Primary Care Provider Reason for Visit Reason Comments ULTRASOUND (Routine) Status Reason Specialty Diagnoses / Referred By Referred To Procedures Contact Contact New Request Vascular Surgery Diagnoses PAD (peripheral artery disease) Tiffanie Turner, Procedures JAME MULTI LEVEL BY VASCULAR LAB [address] [place] [address] [address] [place] [address] Encounter Details Date Type Department Care Team Description 07/23/2020 Premium Service Representative Visit [facility] Tiffanie Turner MD [address] [place] [address] [address] [place] [address] PAD (peripheral artery disease); Cardiology- [facility] Vascular Room 1 - Carotid artery disease, unspecified late rality, unspecified type [address] [place] [address], [address] [place] [address] Allergies No Known Allergiesdocumented as of this encounter (statuses as of 07/23/2020) Medications Medication Sig Dispensed Refills Start Date End Date Status metFORMIN 1,000 mg Take 1,000 mg by 0 Active tablet mouth 2 (two) times daily with meals. glimepiride 4 mg Take 4 mg by 0 Active tablet mouth 2 (two) times daily. UBIDECAR/FISH Take by mouth. 0 Active OIL/OMEGA-3/OSMIN (CO J21-AQCL OIL-OMEGA 3-E ORAL) nitroglycerin 0.[address] [...] 1 tablet by 0 Active mouth daily. [id number]-[id number] Take by mouth 0 Active ORAL daily. [...] Date Type Specialty Care Team Description 07/23/2020 Premium Service Representative Visit Cardiology Tiffanie Turner MD 146 [facility] [address] [place] [address] [phone] Arrived Pc, [facility] Vascular Room 1 - 09/07/2020 Laboratory Only Cardiology Pacemaker/Icd, [facility] 01/12/2021 Office Visit Cardiology Tiffanie Turner M D 146 [facility] [address] [place], [place] [address] Health Maintenance Due Date [...] filedocumented in this encounter Visit Diagnoses Diagnosis PAD (peripheral artery disease) Unspecified disorders of arteries and ar terioles Carotid artery disease, unspecified late rality, unspecified type documented in this encounter Insurance Payer Benefit Plan / Subscriber ID Effective Phone Address T ype Group Dates NILDA FERNANDO [id number] 2020-Prese Medicare Adv PLUS PLUS CHOICE nt HMO/POS COMMERCIAL COMMERCIAL [id number] 2019-Prese HM O/PPO/POS NON-CONTRACT NON-CONTRACT nt GENERIC GENERIC documented as of this encounter
--- OUTSIDE RECORDS SUMMARY | 2020-08-23 00:23 | XMS REPORT | Summary of Care ---
:[address] [facility] - [facility] [place] [facility] Address [address] [place] [address] Care Team Providers Name Role Phone GabrielBenjamín vazquez Primary Care Provider Reason for Visit (Routine) Status Reason Specialty Diagnoses / Procedures Referred By Richard franco Referred To Contact Closed Cardiology Diagnoses Coronary artery disease involving [place] coronary artery of [place] heart without angina pectoris Edward Moran MD Procedures ECHO ROUTINE W/DOPPLER COLOR Preferred Location: [facility] [address] [place] [address] [address] [place], [place] [address] Phone: Encounter Details Date Type Department Care Team Description 07/15/[address] [facility] Edward Moran M D [address] [place] [address] [address] [place], [place] [id number] Coronary artery Cardiology- [facility], Adc Echo Room 1 - disease involving [address] [place] [address], [address] artery of [place], [place] heart without a ngina [address] pectoris [phone] Allergies No Known Allergiesdocumented as of this encounter (statuses as of 07/15/2020) Medications Medication Sig Dispensed Refills Start Date End Date Status metFORMIN 1,000 mg Take 1,000 mg by 0 Active tablet mouth 2 (two) times daily with meals. glimepiride 4 mg Take 4 mg by 0 Active tablet mouth 2 (two) times daily. UBIDECAR/FISH Take by mouth. 0 Active OIL/OMEGA-3/OSMIN (CO S88-STHZ OIL-OMEGA 3-E ORAL) nitroglycerin 0.[address] [...] 1 tablet by 0 Active mouth daily. [id number]-[id number]-CNBM Take by mouth 0 Active ORAL daily. [...] tabletIndications: mouth daily. Chronic systolic heart failure Hospital, Clinic, or Other Ordered Dose Route Frequency Start Date End Date Status Facility Administered Medication [facility] mL IV ONCE 07/15/2020 0 Ended microsphr (LUMASON) injection 5 mL documented as of this encounter (statuses as of 07/15/2020) Active Problems No known active problemsdocumented as of this encounter (statuses as of 07/15/2020) Immunizations Name Administration Dates Next Due Influenza [...] Sign Reading Time Taken Comments Blood Pressure 130/78 07/15/2020 10:10 AM CDT Pulse 85 07/15/2020 10:10 AM CDT Temperature - - Respiratory Rate - - Oxygen Saturation - - Inhaled Oxygen Concentration - - Weight 95.7 kg (211 lb) 07/15/2020 10:10 AM CDT Height 165.1 cm (5' 5") 07/15/2020 10:10 AM CDT Body Mass Index 35.11 07/15/2020 10:10 AM CDT documented in this encounter Plan of Treatment Date Type Specialty Care Team Description 07/23/2020 Manager Compensation Visit Cardiology , [facility] Vascular Room 1 - 07/23/2020 Manager Compensation Visit Cardiology , [facility] Vascular Room 1 - 07/23/2020 Manager Compensation Visit Cardiology , [facility] Vascular Room 1 - 09/07/2020 Laboratory Only Cardiology Pacemaker/Icd, [facility] 01/12/2021 Office Visit Cardiology Edward Moran M D [address] [place] [address] [phone] Health Maintenance Due Date Last Done Comments [...] Visit Diagnoses Diagnosis Coronary artery disease involving [place] coronary artery of [place] heart without angina pectoris documented in this encounter Administered Medications Medication Order MAR Action Action Date Dose Rate Site sulfur hexafluoride microsphr Given 07/15/2020 10:45 AM CDT 5 mL (LUMASON) injection 5 mL 5 mL, Intravenous, ONCE, 1 dose, Ngozi 07/15/20 at 1045, Routine, membership manager approving Restricted medication: EDWARD MORAN documented in this encounter Insurance Payer Benefit Plan / Subscriber ID Effective Phone Address T e Group Dates [facility] KASSIE [id number] 2020-Prese Medicare Adv PLUS PLUS CHOICE nt HMO/POS COMMERCIAL COMMERCIAL [id number] 2019-Prese HM O/PPO/POS NON-CONTRACT NON-CONTRACT nt GENERIC GENERIC documented as of this encounter
--- OUTSIDE RECORDS SUMMARY | 2020-08-23 00:23 | XMS REPORT | Summary of Care ---
:1955 Author Organization [facility] - Health Address [address] [place] [address] Care Team Providers Name Role Phone Benjamín Gabriel Primary Care Provider Encounter Details Date Type Department Care Team Description 07/14/2020 Orders Only [facility] Doctor Unassigned, No [address] [facility] [place] [address] [address] [place] [address] Allergies No Known Allergiesdocumented as of this encounter (statuses as of 07/15/2020) Medications Medication Sig Dispensed Refills Start Date End Date Status metFORMIN 1,000 mg Take 1,000 mg by 0 Active tablet mouth 2 (two) times daily with meals. glimepiride 4 mg Take 4 mg by 0 Active tablet mouth 2 (two) times daily. UBIDECAR/FISH Take by mouth. 0 Active OIL/OMEGA-3/OSMIN (CO G77-FHNI OIL-OMEGA 3-E ORAL) nitroglycerin 0.[address] [...] 1 tablet by 0 Active mouth daily. [id number]-[id number] Take by mouth 0 Active ORAL daily. [...] Date Type Specialty Care Team Description 07/23/2020 Normalizer Visit Cardiology Pc, [facility] Vascular Room 1 - 07/23/2020 Normalizer Visit Cardiology Pc, [facility] Vascular Room 1 - 07/23/2020 Normalizer Visit Cardiology Pc, [facility] Vascular Room 1 - 09/07/2020 Laboratory Only Cardiology Pacemaker/Icd, [facility] 01/12/2021 Office Visit Cardiology Tiffanie Turner M D [address] [place] [address] [phone] Health Maintenance Due Date Last Done Comments [...] Name Priority Date/Time Associated Diagnosis Comme nts AUTHORIZATION TO RELEASE Routine 07/14/2020 12:01 AM PHI TO [facility] CDT documented in this encounter Results Not on filedocumented in this encounter Insurance Payer Benefit Plan / Subscriber ID Effective Phone Address T ype Group Dates NILDA FERNANDO [id number] 2020-Prese Medicare Adv PLUS PLUS CHOICE nt HMO/POS COMMERCIAL COMMERCIAL [id number] 2019-Prese HM O/PPO/POS NON-CONTRACT NON-CONTRACT nt GENERIC GENERIC documented as of this encounter
--- OUTSIDE RECORDS SUMMARY | 2020-08-23 00:24 | XMS REPORT | Summary of Care ---
:1955 Author Organization [facility] - [facility] Address [address] [place] [address] Care Team Providers Name Role Phone Benjamín Gabriel Primary Care Provider Reason for Visit Reason Comments Refill Request Spironlactone Encounter Details Date Type Department Care Team Description 07/28/2020 Refill [facility] Cardiology- Vianney Turner MD Refill Request [address] (Spironlactone) [address] [place] [address] Drive, [address] [place] [address] [place] [address] [phone] Allergies No Known Allergiesdocumented as of this encounter (statuses as of 07/28/2020) Medications Medication Sig Dispensed Refills Start End Date Status Date metFORMIN 1,000 mg Take 1,000 mg 0 Active tablet by mouth 2 (two) times daily with meals. glimepiride 4 mg Take 4 mg by 0 Active tablet mouth 2 (two) times daily. UBIDECAR/FISH Take by 0 Active OIL/OMEGA-3/OSMIN mouth. (CO L42-DYHR OIL-OMEGA 3-E ORAL) nitroglycerin 0.4 [address] 1 [...] 1 tablet 0 Active by mouth daily. [id number]-[id number]-T Take by 0 Active INC ORAL mouth [...] unspecified laterality spironolactone 25 Take 1 tablet 90 tablet 2 Active mg by mouth 0 tabletIndications: daily. Chronic systolic heart failure spironolactone 25 Take 1 tablet 30 tablet 1 07/28/20 Discontinued mg by mouth 0 20 (Reorder) tabletIndications: daily. Chronic systolic heart failure documented as of this encounter (statuses as of 07/28/2020) Active Problems No known active problemsdocumented as of this encounter (statuses as of 07/28/2020) Immunizations Name Administration Dates Next Due Influenza [...] Signs Not on filedocumented in this encounter Miscellaneous Notes Telephone Encounter - Carolyne Whitley MA - 07/28/2020 11:02 AM CDTLabs in External Records. Refill for spironolactone sent to mail order [facility]. Patient compliant as per [facility] Cardiac protocol. documented in this encounter Plan of Treatment Date Type Specialty Care Team Description 09/07/2020 Laboratory Only Cardiology Pacemaker/Icd, [facility] 01/12/2021 Office Visit Cardiology Tiffanie Turner M D 146 [facility] [address] [place] [address] [phone] Health Maintenance Due Date Last Done Comments [...] Effective Phone Address T ype Group Dates [facility] [id number] 2020-Prese Medicare Adv PLUS PLUS CHOICE nt HMO/POS COMMERCIAL COMMERCIAL [id number] 2019-Prese HM O/PPO/POS NON-CONTRACT NON-CONTRACT nt GENERIC GENERIC documented as of this encounter
--- OUTSIDE RECORDS SUMMARY | 2020-08-23 00:24 | XMS REPORT | Summary of Care ---
:1955 Author Organization [facility] Address [address] [place] [address] Care Team Providers Name Role Phone GabrielBenjamín vazquez Primary Care Provider Reason for Referral (Routine) Status Reason Specialty Diagnoses / Referred By Referred To Procedures Contact Contact New Request Diagnoses Carotid artery disease, unspecified laterality, unspecified type Tiffanie Turner MD Procedures CAROTID DUPLEX BILATERAL BY VASCULAR LAB 146 [facility] [address] [place], [place] [address] (Routine) Status Reason Specialty Diagnoses / Referred By Referred To Procedures Contact Contact New Request Diagnoses PAD (peripheral artery disease) Tiffanie Turner MD Procedures BILATERAL DUPLEX SCAN OF ARTERY BY VASCULAR LAB 146 [facility] [address] [place], [place] [address] (Routine) Status Reason Specialty Diagnoses / Procedures Referred By C ontact Referred To Contact Closed Cardiology Diagnoses Coronary artery disease involving [place] coronary artery of [place] heart without angina pectoris Tiffanie Turner MD Procedures ECHO ROUTINE W/DOPPLER COLOR Preferred Location: [facility] [address] [place] [address] [address] [place], [place] [address] Phone: (Routine) Status Reason Specialty Diagnoses / Referred By Referred To Procedures Contact Contact New Request Vascular Surgery Diagnoses PAD (peripheral artery disease) Tiffanie Turner Procedures JAME MULTI LEVEL BY VASCULAR LAB [address] [place] [address] [address] [place] [address] Reason for Visit Reason Comments Follow-up 6mo Ekg Done today in Office Encounter Details Date Type Department Care Team Description [facility] Coronary artery disease involving [place] coronary artery of [place] heart without angina pectoris (Primary Dx); Cardiology- [address] PAD (peripheral artery disea se); [address] [place] [address] DRIVE Carotid artery disease, unspecified late rality, unspecified type; Drive, [address] Chronic systolic heart failure; [facility] [place], [place], [place] [address] ICD (implantable cardioverter-defibrilla tor) in place; [id number] NIKI (obstructive sleep apnea) [phone] Allergies No Known Allergiesdocumented as of this encounter (statuses as of 07/25/2020) Medications Medication Sig Dispensed Refills Start Date End Date Status metFORMIN 1,000 mg Take 1,000 mg by 0 Active tablet mouth 2 (two) times daily with meals. glimepiride 4 mg Take 4 mg by 0 Active tablet mouth 2 (two) times daily. UBIDECAR/FISH Take by mouth. 0 Active OIL/OMEGA-3/OSMIN (CO J43-GBFK OIL-OMEGA 3-E ORAL) nitroglycerin 0.[address] [...] 1 tablet by 0 Active mouth daily. [id number]-UVOW Take by mouth 0 Active ORAL daily. [...] as of this encounter (statuses as of 07/25/2020) Active Problems No known active problemsdocumented as of this encounter (statuses as of 07/25/2020) Immunizations Name Administration Dates Next Due Influenza [...] 07/2019, he was admitted for [facility]STEMI in [facility]. LHC showed 90% proximal LAD diseaseand LOFTSMAN/WOMAN of RCA. s/p Aortocoronary bypass times 3: COSBY TO LAD, SAPHENOUS VEIN TO OM1 and SAPHENOUS VEIN TO DIAGONAL on 07/21/2019 Echo showed reduced EF of 25-29%. He stated that since the CABG, he has been having R 4th and 5th fingers pain and numbness all the time. "About 1 wk ago he was admitted to [facility] for low BP. The following meds were stopped--lasix, spironolactone, lipitor and plavix. Currently he is feeling well." Since last visit he has been feeling well. No edema. No chest pain. Lost a few lbs. No edema. EKG--07/14/2020--reviewed by me--normal sinus rhythm, inferior infarct, anterolateral infarct. 06/2020 LDL 89, HDL 28, TG 270, TC 162, Cr 1.13, K 4.4 10/2019 [place] Dizziness, low BP--improved with IVF Review of [...] tablet by mouth daily. 90 tablet 1 [id number]-MNJVIRUVJ-PBGZ ORAL Take by mouth daily. fenofibrate 145 [...] times daily with meals. UBIDECAR/FISH OIL/OMEGA-3/OSMIN (CO T01-KSWJ OIL-OMEGA 3-E ORAL) Take by mouth. nitroglycerin [...] file Gets together: Not on file Attends quaker service: Not on file Active member of [...] Age of Onset Diabetes Mother Heart Mother [place] (myocardial infarction) Sister 45 DM type 1 [...] ICD-10-CM ICD-9-CM 1. Coronary artery disease involving [place] coronary artery of [place] heart without angina opzicpinY27.10 414.01 2. PAD (peripheral artery disease) I73.9 [...] loss. RTC 6 months Tiffanie Turner MD, FACC, SAMIRA Consultant Nurse, Division of Cardiology [facility] documented in this encounter Plan of Treatment Date Type Specialty Care Team Description 09/07/2020 Laboratory Only Cardiology Pacemaker/Icd, [facility] 01/12/2021 Office Visit Cardiology Tiffanie Turner M D [address] [address] [address] [phone] Name Type Priority Associated Diagnoses Order S chedule EKG-12 LEAD ROUTINE HEART STATION Routine Coronary artery Orde red: 07/14/2020 disease involving [place] coronary artery of [place] heart without angina pectoris Health Maintenance Due [...] Name Priority Date/Time Associated Diagnosis Comme nts EKG-12 LEAD Routine 07/14/2020 3:06 PM CDT documented in this encounter Results ECHO ROUTINE W/DOPPLER COLOR Preferred Location: [facility] (07/15/2020 10:07 AM CDT) Specimen Performing Organization Address City/State/Zipcode Phone Number ECHO documented in this encounter Visit Diagnoses Diagnosis Coronary artery disease involving [place] coronary artery of [place] heart without angina pectoris - Primary PAD (peripheral artery disease) Unspecified disorders of arteries and ar terioles Carotid artery disease, unspecified late rality, unspecified type Chronic systolic heart failure ICD (implantable cardioverter-defibrilla tor) in place NIKI (obstructive sleep apnea) Obstructive sleep apnea (adult) (pediatr ic) documented in this encounter Insurance Payer Benefit Plan / Subscriber ID Effective Phone Address T ype Group Dates [employer] KASSIE ZeristaKT FERNANDO [id number] 2020-Prese Medicare Adv PLUS PLUS CHOICE nt HMO/POS COMMERCIAL COMMERCIAL [id number] 2019-Prese HM O/PPO/POS NON-CONTRACT NON-CONTRACT nt GENERIC GENERIC documented as of this encounter
--- OUTSIDE RECORDS SUMMARY | 2020-08-23 00:24 | XMS REPORT | Summary of Care ---
:1955 Author Organization [facility] - [facility] Address [address] [place] [address] Care Team Providers Name Role Phone Benjamín Gabriel Primary Care Provider Reason for Visit (Routine) Status Reason Specialty Diagnoses / Referred By Referred To Procedures Contact Contact New Request Diagnoses Carotid artery disease, unspecified laterality, unspecified type Tiffanie Turner MD Procedures CAROTID DUPLEX BILATERAL BY VASCULAR LAB [address] [place] [address] [address] [place], [place] [address] Encounter Details Date Type Department Care Team Description 07/23/2020 Appointment [facility] Cardiology- Vianney Turner MD 146 [facility] [address] [place] [address] Arrived [facility], Adc Vascular Room 1 - [address] [place] [address], [address] [place] [address] Allergies No Known Allergiesdocumented as of this encounter (statuses as of 07/23/2020) Medications Medication Sig Dispensed Refills Start Date End Date Status metFORMIN 1,000 mg Take 1,000 mg by 0 Active tablet mouth 2 (two) times daily with meals. glimepiride 4 mg Take 4 mg by 0 Active tablet mouth 2 (two) times daily. UBIDECAR/FISH Take by mouth. 0 Active OIL/OMEGA-3/OSMIN (CO T46-SXAT OIL-OMEGA 3-E ORAL) nitroglycerin 0.[address] [...] 1 tablet by 0 Active mouth daily. [id number]-XSOWLRDZM-VHUO Take by mouth 0 Active ORAL daily. [...] Office Visit Cardiology Tiffanie Turner M D [address] [place] [address] [phone] Health Maintenance Due Date Last Done Comments [...] Phone Address T ype Group Dates [employer] KASSIE WELLKT FERNANDO [id number] 2020-Prese Medicare Adv PLUS PLUS CHOICE nt HMO/POS COMMERCIAL COMMERCIAL [id number] 2019-Prese HM O/PPO/POS NON-CONTRACT NON-CONTRACT nt GENERIC GENERIC documented as of this encounter
--- OUTSIDE RECORDS SUMMARY | 2020-08-23 00:24 | XMS REPORT | Summary of Care ---
:1955 Author Organization [facility] - [facility] Address [address] [place] [address] Care Team Providers Name Role Phone GabrielBenjamín Inderjit Primary Care Provider Reason for Visit Reason Comments ULTRASOUND (Routine) Status Reason Specialty Diagnoses / Referred By Referred To Procedures Contact Contact New Request Vascular Surgery Diagnoses PAD (peripheral artery disease) Tiffanie Turner, Procedures JAME MULTI LEVEL BY VASCULAR LAB [address] [place] [address] [address] [place] [address] Encounter Details Date Type Department Care Team Description 07/23/2020 Web Site Administrator Visit [facility] Tiffanie Turner MD [address] [place] [address] [address] [place] [address] PAD (peripheral artery disease); Cardiology- [facility] Vascular Room 1 - Carotid artery disease, unspecified late rality, unspecified type [address] [place] [address], [address] [place] [address] Allergies No Known Allergiesdocumented as [...] Take by mouth. 0 Active OIL/OMEGA-3/OSMIN (CO Q28-VSLQ OIL-OMEGA 3-E ORAL) nitroglycerin 0.[address] [...] 1 tablet by 0 Active mouth daily. [id number]-[id number]-HMMI Take by mouth 0 Active ORAL daily. [...] 07/23/2020 Appointment Cardiology Tiffanie Turner M D [address] [place] [address] [place] [address] [phone] Arrived , [facility] Vascular Room 1 - 09/07/2020 Laboratory Only Cardiology Pacemaker/Icd, [facility] 01/12/2021 Office Visit Cardiology Tiffanie Turner M D 146 [facility] [address] [place], [place] [address] [phone] Health Maintenance Due Date Last Done Comments [...] Address T ype Group Dates NILDA FERNANDO [id number] 2020-Prese Medicare Adv PLUS PLUS CHOICE nt HMO/POS COMMERCIAL COMMERCIAL [id number] 2019-Prese HM O/PPO/POS NON-CONTRACT NON-CONTRACT nt GENERIC GENERIC documented as of this encounter
--- OUTSIDE RECORDS SUMMARY | 2020-08-23 00:25 | XMS REPORT | Summary of Care ---
:1955 Author Organization [facility] Address [address] [place] [address] Care Team Providers Name Role Phone Benjamín Gabriel Primary Care Provider Reason for Visit Reason Comments Results Encounter Details Date Type Department Care Team Description 07/28/2020 Telephone [facility] Cardiology, Vianney Turner MD Results [address], [facility] [address] [place] [address] [place] [address] [phone] Allergies No Known Allergiesdocumented as of this encounter (statuses as of 07/28/2020) Medications Medication Sig Dispensed Refills Start Date End Date Status metFORMIN 1,000 mg Take 1,000 mg by 0 Active tablet mouth 2 (two) times daily with meals. glimepiride 4 mg Take 4 mg by 0 Active tablet mouth 2 (two) times daily. UBIDECAR/FISH Take by mouth. 0 Active OIL/OMEGA-3/OSMIN (CO I90-CMNO OIL-OMEGA 3-E ORAL) nitroglycerin 0.[address] [...] 1 tablet by 0 Active mouth daily. [id number]-BZYPHWIVK-XWBO Take by mouth 0 Active ORAL daily. [...] spironolactone 25 mg Take 1 tablet by 90 tablet 2 07/28/2020 Active tabletIndications: mouth daily. Chronic systolic heart failure ezetimibe 10 mg tablet Take 1 tablet by 30 tablet 5 07/28/2020 Active mouth daily. documented as of this encounter (statuses as [...] this encounter Miscellaneous Notes Telephone Encounter - Thuy Westbrook RN - 07/28/2020 1:12 PM CDT Contacted patient about vascular results. Tiffanie Turner MD 07/25/2020 10:38 PM Vasc studies showed moderate PAD and carotid disease. Will continue current meds documented in this encounter Plan of Treatment Date Type Specialty Care Team Description 09/07/2020 Laboratory Only Cardiology Pacemaker/Icd, [facility] 01/12/2021 Office Visit Cardiology Tiffanie Turner M D [address] [place] [address] [phone] Health Maintenance Due Date Last Done Comments [...] Address T ype Group Dates NILDA FERNANDO [id number] 2020-Prese Medicare Adv PLUS PLUS CHOICE nt HMO/POS COMMERCIAL COMMERCIAL [id number] 2019-Prese HM O/PPO/POS NON-CONTRACT NON-CONTRACT nt GENERIC GENERIC documented as of this encounter
--- OUTSIDE RECORDS SUMMARY | 2020-08-23 00:25 | XMS REPORT | Summary of Care ---
:1955 Author Organization [facility] Address [address] [place] [address] Care Team Providers Name Role Phone Benjamín Gabriel Primary Care Provider Reason for Visit Reason Comments Refill Request Encounter Details Date Type Department Care Team Description 08/04/2020 Telephone [facility] Cardiology- Vianney Turner MD Refill Request [address] [facility], [address] [place] [address] [place] [address] [phone] Allergies No Known Allergiesdocumented as of this encounter (statuses as of 08/05/2020) Medications Medication Sig Dispensed Refills Start Date End Date Status metFORMIN 1,000 mg Take 1,000 mg 0 Active tablet by mouth 2 (two) times daily with meals. glimepiride 4 mg Take 4 mg by 0 Active tablet mouth 2 (two) times daily. UBIDECAR/FISH Take by 0 Active OIL/OMEGA-3/OSMIN (CO mouth. F80-AGHR OIL-OMEGA 3-E ORAL) nitroglycerin 0.[address] 1 1 Bottle 0 06/25/2019 Active sublingual tablet tablet under the tongue every 5 (five) minutes as needed for Chest pain. aspirin 81 mg EC Take 1 tablet 0 08/19/2019 Active tabletIndications: by mouth Stenosis of carotid daily. artery, unspecified laterality SITagliptin Take 100 mg 0 Active (JANUVIA) 100 mg by mouth tablet daily. liraglutide (VICTOZA inject 1.8 mg 0 Active 3-АЛЕКСАНДР SC) under the skin daily. gabapentin 300 mg Take 300 mg 0 Active capsule by mouth 3 (three) times daily. tamsulosin 0.4 mg 24 Take by 0 Active hr capsule mouth daily. multivitamin tablet Take 1 tablet 0 Active by mouth daily. HPIFCXO-ADKTEECUK-ZQ Take by 0 Active NC ORAL mouth daily. fenofibrate 145 mg Take 1 tablet 90 tablet 1 09/11/2019 Active tabletIndications: by mouth Right hand pain, PAD daily. (peripheral artery disease) carvediloL 6.25 mg Take 1 tablet 180 tablet 3 01/12/2020 Active tabletIndications: by mouth 2 Chronic systolic (two) times heart failure daily with meals. furosemide 40 mg Take 1 tablet 90 tablet 1 01/12/2020 Active tabletIndications: by mouth Chronic systolic daily. heart failure isosorbide Take 1 tablet 90 tablet 3 01/13/2020 Acti ve mononitrate 120 mg by mouth 24 hr daily. tabletIndications: Stenosis of carotid artery, unspecified laterality lisinopril 40 mg Take 1 tablet 90 tablet 1 04/12/2020 Active tabletIndications: by mouth Chronic systolic daily. heart failure atorvastatin 80 mg Take 1 tablet 90 tablet 1 04/28/2020 Active tabletIndications: by mouth at Stenosis of carotid bedtime. artery, unspecified laterality clopidogreL 75 mg Take 1 tablet 30 tablet 6 05/06/2020 Active tabletIndications: by mouth Stenosis of carotid daily. artery, unspecified laterality spironolactone 25 mg Take 1 tablet 90 tablet 2 07/28/2020 Active tabletIndications: by mouth Chronic systolic daily. heart failure ezetimibe 10 mg Take 1 tablet 30 tablet 5 07/28/2020 Active tablet by mouth daily. icosapent ethyL Take 2 120 capsule 2 08/05/2020 A ctive (VASCEPA) 1 gram capsules by capsuleIndications: mouth 2 (two) Stenosis of carotid times daily. artery, unspecified laterality, Hyperlipidemia, unspecified hyperlipidemia type, Elevated triglycerides with high cholesterol icosapent ethyl Take 2 120 capsule 2 04/28/2020 D iscontinued (VASCEPA) 1 gram capsules by 0 capsuleIndications: mouth 2 (two) Stenosis of carotid times daily. artery, unspecified laterality, Hyperlipidemia, unspecified hyperlipidemia type, Elevated triglycerides with high cholesterol documented as of this encounter (statuses as of 08/05/2020) Active Problems No known active problemsdocumented as of this encounter (statuses as of 08/05/2020) Immunizations Name Administration Dates Next Due Influenza [...] this encounter Miscellaneous Notes Telephone Encounter - Velvet Elizondo RN - 08/05/2020 2:47 PM CSTRefill sent per guidelines. elephone Encounter - Hortencia Hill - 08/04/2020 9:04 AM CSTThe patients pharmacy is requesting the following medication: Vascepa- 1 GM Capsule 120 qty Two Capsules , Twice a day documented in this encounter Plan of Treatment Date Type Specialty Care Team Description 09/07/2020 Laboratory Only Cardiology Pacemaker/Icd, Adc 01/12/2021 Office Visit Cardiology Tiffanie Turner M D [address] [address] [phone] Health Maintenance Due Date Last Done Comments [...] filedocumented in this encounter Visit Diagnoses Diagnosis Stenosis of carotid artery, unspecified laterality Hyperlipidemia, unspecified hyperlipidem ia type Elevated triglycerides with high cholest kalani Mixed hyperlipidemia documented in this encounter Insurance Payer Benefit Plan / Subscriber ID Effective Phone Address T ype Group Dates NILDA FERNANDO [id number] 2020-Prese Medicare Adv PLUS PLUS CHOICE nt HMO/POS COMMERCIAL COMMERCIAL [id number] 2019-Prese HM O/PPO/POS NON-CONTRACT NON-CONTRACT nt GENERIC GENERIC documented as of this encounter
--- OUTSIDE RECORDS SUMMARY | 2020-08-23 00:25 | XMS REPORT | Summary of Care ---
:1955 Author Organization [facility] Address [address] [place] [address] Care Team Providers Name Role Phone Benjamín Gabriel Primary Care Provider Reason for Visit Reason Comments Results Encounter Details Date Type Department Care Team Description 07/28/2020 Telephone [facility] Cardiology- Vianney Turner MD Results [place] [address] [facility] 146 [facility], [address] [place] [address] [place] [address] [phone] Allergies No Known Allergiesdocumented as of this encounter (statuses as of 07/28/2020) Medications Medication Sig Dispensed Refills Start Date End Date Status metFORMIN 1,000 mg Take 1,000 mg by 0 Active tablet mouth 2 (two) times daily with meals. glimepiride 4 mg Take 4 mg by 0 Active tablet mouth 2 (two) times daily. UBIDECAR/FISH Take by mouth. 0 Active OIL/OMEGA-3/OSMIN (CO X25-JXYD OIL-OMEGA 3-E ORAL) nitroglycerin 0.[address] [...] 1 tablet by 0 Active mouth daily. [id number] Take by mouth 0 Active ORAL daily. [...] Telephone Encounter - Velvet Elizondo RN - 07/28/2020 11:45 AM CDT Patient notified of results/recommendations, understanding was verbalized via teach back. LDL is still elevated. Plz add zetia 10 mg daily. documented in this encounter Plan of Treatment Date Type Specialty Care Team Description 09/07/2020 Laboratory Only Cardiology Pacemaker/Icd, Adc 01/12/2021 Office Visit Cardiology Tiffanie Turner M D [address] [address] [phone] Health Maintenance Due Date Last Done Comments [...] Address T ype Group Dates NILDA FERNANDO [id number] 2020-Prese Medicare Adv PLUS PLUS CHOICE nt HMO/POS COMMERCIAL COMMERCIAL [id number] 2019-Prese HM O/PPO/POS NON-CONTRACT NON-CONTRACT nt GENERIC GENERIC documented as of this encounter
--- OUTSIDE RECORDS SUMMARY | 2020-08-23 00:25 | XMS REPORT | Summary of Care ---
:1955 Author Organization [facility] Address [address] [place] [address] Care Team Providers Name Role Phone Benjamín Gabriel Primary Care Provider Reason for Visit Reason Comments Refill Request lisinopril 3mo supply reques ts Encounter Details Date Type Department Care Team Description 08/19/2020 Refill [facility] Cardiology- Vianney Turner MD Refill Request [address] (lisinopril 3mo supply [address] [place] [address], DRIVE requests) [address] [place] [address] [place] [address] [phone] Allergies No Known Allergiesdocumented as of this encounter (statuses as of 08/19/2020) Medications Medication Sig Dispensed Refills Start End Date Status Date metFORMIN 1,000 mg Take 1,000 mg 0 Active tablet by mouth 2 (two) times daily with meals. glimepiride 4 mg Take 4 mg by 0 Active tablet mouth 2 (two) times daily. UBIDECAR/FISH Take by 0 Active OIL/OMEGA-3/OSMIN mouth. (CO S29-BMPU OIL-OMEGA 3-E ORAL) nitroglycerin 0.4 Place 1 [...] 1 tablet 0 Active by mouth daily. [id number] Take by 0 Active INC ORAL mouth [...] tabletIndications: Stenosis of carotid artery, unspecified laterality atorvastatin 80 mg Take 1 tablet 90 tablet 1 Active tabletIndications: by mouth at 0 Stenosis of carotid bedtime. artery, unspecified laterality clopidogreL 75 mg Take 1 tablet 30 tablet 6 Active tabletIndications: by mouth 0 Stenosis of carotid daily. artery, unspecified laterality spironolactone 25 Take 1 tablet 90 tablet 2 Active mg by mouth 0 tabletIndications: daily. Chronic systolic heart failure ezetimibe 10 mg Take 1 tablet 30 tablet 5 Active tablet by mouth 0 daily. icosapent ethyL Take 2 120 capsule 2 Ac tive (VASCEPA) 1 gram capsules by 0 capsuleIndications: mouth 2 (two) Stenosis of carotid times daily. artery, unspecified laterality, Hyperlipidemia, unspecified hyperlipidemia type, Elevated triglycerides with high cholesterol lisinopriL 40 mg Take 1 tablet 90 tablet 3 Active tabletIndications: by mouth 0 Chronic systolic daily. heart failure lisinopril 40 mg Take 1 tablet 90 tablet 1 08/19/20 Discontinued tabletIndications: by mouth 0 20 ( Reorder) Chronic systolic daily. heart failure documented as of this encounter (statuses as of 08/19/2020) Active Problems No known active problemsdocumented as of this encounter (statuses as of 08/19/2020) Immunizations Name Administration Dates Next Due Influenza [...] Telephone Encounter - Carolyne Whitley MA - 08/19/2020 4:46 PM CSTRefill request for lisinopril 3mo request received. Refill sent to pharmacy of choice. Patient is compliant as per [facility] Cardiology Protocol. OR LPN documented in this encounter Plan of Treatment Date Type Specialty Care Team Description 09/07/2020 Laboratory Only Cardiology Pacemaker/Icd, Adc 01/12/2021 Office Visit Cardiology Tiffanie Turner M D [address] [place] [address] [place] [address] [phone] Health Maintenance Due Date Last Done Comments [...] Address T ype Group Dates [facility] [id number] 2020-Prese Medicare Adv PLUS PLUS CHOICE nt HMO/POS COMMERCIAL COMMERCIAL [id number] 2019-[facility] HM O/PPO/POS NON-CONTRACT NON-CONTRACT nt GENERIC GENERIC documented as of this encounter
[2020-08-23] MEDS ORDERED: SODIUM CHLORIDE 0.9% 10ML INJ IV PRN (00:35)
[2020-08-23] MEDS ORDERED: ACETAMINOPHEN 500 MG TAB PO PRN (00:35)
[2020-08-23] MEDS ORDERED: ONDANSETRON 4 MG/2 ML VIAL IV PRN ×2 (00:35)
[2020-08-23] MEDS ORDERED: FAMOTIDINE 20 MG/2 ML VIAL IV ONE (00:37)
[2020-08-23] MEDS: HYDROMORPHONE HCL 1 MG/ML INJ IV PRN ×4 (00:56→21:09)
[2020-08-23] MEDS: NA CHLORIDE 0.9% 1,000 ML IV SCH ×3 (00:56→13:05)
[2020-08-23] MEDS: ONDANSETRON 4 MG/2 ML VIAL IV PRN ×3 (00:57→08:42)
--- NOTE | 2020-08-23 01:42 | P.HP ---
Certification for Inpatient Patient admitted to: Observation With expected LOS: <2 Midnights Patient will require the following post-hospital care: None Practitioner: I am a practitioner with admitting privileges, knowledge of patient current condition, hospital course, and medical plan of care. Services: Services provided to patient in accordance with Admission requirements found in Title 42 Section 412.3 of the Code of Federal Regulations <Oskar Giang - Last Filed: 08/23/20 01:36> Patient admitted to: Observation <Siddhartha Blanco - Last Filed: 08/23/20 12:27> Patient History Date of Service: 08/23/20 Reason for admission: Suspected Cholecystitis History of Present Illness: 65-year-old male presented to [facility] emergency department for evaluation of abdominal pain last night. Patient had a very thorough workup completed, labs as follows-white blood cell count 8.9, hemoglobin 12.6, hematocrit 35.8, platelets 295, creatinine 0.8 you in 22, glucose 291 liver enzymes within normal limits. CT abdomen pelvis revealed hydropic distention of the gallbladder. The gallbladder is otherwise unremarkable in appearance, if there is concern for acute biliary pathology consider right upper quadrant ultrasound, distal colonic diverticulosis. Mild wall thickening present along the length of the sigmoid colon. There is suggestion of minimal pericolonic edema change to the proximal sigmoid colon. These findings may represent sequela of chronic diverticulosis or any acute diverticulitis. [facility] was unable to perform right upper quadrant ultrasound, there ED provider consulted with General Surgery here who agreed to see the patient. I then accepted transfer for rule out cholecystitis. When I saw the patient in the exam room he was awake, alert, oriented x3. Patient complaining of epigastric abdominal pain. On palpation patient was moderately tender in the right upper quadrant and epigastric region. - Past Medical/Surgical History Has patient received pneumonia vaccine in the past: Yes Diabetic: Yes -: Coronary Artery disease -: Hypertension -: Diabetes mellitus type 2-insulin dependent -: HLD -: Defibrillator -: Heart stents -: Alcohol use -: Cardiac catheterization -: Cardiac stent -: defibrillator -: triple vessel CABG Psychosocial/ Personal History: Patient is retired and lives with his family - Family History Sister -: Heart disease, Diabetes, Other (see notes) Notes: heart attack Mother -: Diabetes Father -: Diabetes Brother -: Diabetes - Social History Smoking Status: Former smoker Alcohol use: Yes CD- Drugs: No Caffeine use: Yes Place of Residence: Home <Oskar Giang - Last Filed: 08/23/20 01:36> Date of Service: 08/23/20 Home medications list reviewed: Yes <Siddhartha Blanco - Last Filed: 08/23/20 12:27> Allergies No Known Drug Allergies Allergy (Verified 08/23/20 00:33) Unknown Home Medications: Atorvastatin Calcium [Lipitor] 80 mg PO BEDTIME 07/16/19 Gabapentin 300 mg PO BID 07/16/19 Liraglutide [Victoza 2-Thompson] 1.8 mg SQ DAILY 07/16/19 Aspirin 81 mg PO DAILY 10/15/19 Clopidogrel Bisulfate [Plavix*] 75 mg PO DAILY 10/15/19 Furosemide 40 mg PO DAILY 10/15/19 Isosorbide Mononitrate [Isosorbide Mononitrate ER] 120 mg PO DAILY 10/15/19 Metformin HCl 1,000 mg PO BID 10/15/19 bisacodyL [Dulcolax*] 5 mg PO PRN PRN 10/15/19 Carvedilol [Coreg] 3.125 mg PO DAILY 08/23/20 Fenofibrate [Tricor] 145 mg PO DAILY 08/23/20 Icosapent Ethyl [Vascepa 1 gm Cap] 1 gm PO BID 08/23/20 Insulin Degludec [Tresiba] 12 unit SQ DAILY 08/23/20 Lisinopril [Zestril] 2.5 mg PO DAILY 08/23/20 Spironolactone [Aldactone] 25 mg PO DAILY 08/23/20 Review of Systems 10-point ROS is otherwise unremarkable Gastrointestinal: Nausea, Abdominal Pain <Oskar Giang - Last Filed: 08/23/20 01:36> Physical Examination - Vital Signs Temperature: 97.6 F Blood Pressure: 177/82 Pulse: 70 Respirations: 16 Pulse Ox (%): 97 - Physical Exam General: Alert, In no apparent distress, Oriented x3 HEENT: Atraumatic, Normocephalic, PERRLA, Mucous membr. moist/pink Neck: Supple Respiratory: Clear to auscultation bilaterally, Normal air movement Capillary refill: <2 Seconds Gastrointestinal: Normal bowel sounds, No rebound, No guarding, Tenderness (Mild to moderate epigastric and right upper quadrant abdominal tenderness) Musculoskeletal: No contractures, No erythema, No tenderness Integumentary: No tenderness/swelling, No warmth Neurological: Normal speech, Normal strength at 5/5 x4 extr, Normal tone, Sensation intact - Studies Laboratory Data (last 24 hrs) 08/23/20 00:51: Lipase 78 <Oskar Giang - Last Filed: 08/23/20 01:36> - Studies Laboratory Data (last 24 hrs) 08/23/20 05:24: Sodium 137, Potassium 3.8, BUN 23 H, Creatinine 1.18, Glucose 238 H, Magnesium 1.6 L 08/23/20 05:24: WBC 12.6 H, Hgb 11.6 L, Hct 33.3 L, Plt Count 247 08/23/20 00:51: Lipase 78 <Siddhartha Blanco - Last Filed: 08/23/20 12:27> Assessment and Plan - Plan Assessment Suspected cholecystitis Diabetes mellitus type 2-insulin dependent CAD S/P 3 vessel CABG Hypertension Hyperlipidemia Plan Suspected cholecystitis: NPO, general surgery consult in place. Continue with broad-spectrum antibiotics. P.r.n. nausea/pain medications. Serial abdominal exams. Ultrasound right upper quadrant ordered for morning. DVT prophylaxis SCDs. Appreciate further input from general surgery. Diabetes mellitus type 2-insulin dependent: Q.6h Accu-Cheks, sliding scale insulin therapy well NPO then a.c. HS. CAD S/P 3 vessel CABG: Appears stable at this time, obtain and continue home medications. Hypertension: Obtain and continue home medications. Will provide p.r.n. medications. Hyperlipidemia: Obtain and continue medications when appropriate Discharge Plan: Home Plan to discharge in: 24 Hours - Advance Directives Does patient have a Living Will: No Does patient have a Durable POA for Healthcare: No - Code Status/Comfort Care Code Status Assessed: Yes (Full code) Critical Care: No Time Spent Managing Pts Care (In Minutes): 55 <Oskar Giang - Last Filed: 08/23/20 01:36> - Plan Case discussed in detail with nurse practitioner. Will discuss further with surgery about plan of care. Obtain abdominal ultrasound to further evaluate. <Siddhartha Blanco - Last Filed: 08/23/20 12:27>
[2020-08-23 02:47] VITALS: BMI 34.0
[2020-08-23 04:18] LABS: Urine Appearance CLEAR; Urine Bilirubin NEGATIVE (NEG); Urine Blood NEGATIVE (NEG); Urine Color YELLOW; Urine Glucose 3+ (NEG); Urine Protein TRACE (NEG); Urine Specific Gravity >=1.030 (1.005-1.030); Urine Urobilinogen 0.2 mg/dL (0.2-1.0); Urine pH 5.5 (5.0-7.0)
[2020-08-23 04:25] LABS: Urine Microscopic Reflex ORDER UMIC
[2020-08-23] MEDS: PIPER/TAZO/NS 3.375gm 3.375 GM/100 ML BAG IVPB SCH ×3 (04:25→17:00)
[2020-08-23] MEDS: INSULIN -REGULAR HUMAN 50 UNIT/0.5 ML ML SQ SCH ×3 (05:18→21:44)
[2020-08-23 05:32] LABS: Urine Bacteria <20 /HPF (NONE SEEN); Urine RBC <5 /HPF (NONE SEEN)
[2020-08-23 05:50] LABS: Absolute Lymphocytes (CBC) 1.8 K/uL (0.7-4.9); Basophils % 0.3 % (0-1.3); Hematocrit 33.3 % (39.6-49.0); Lymphocytes % 14.6 % (15.3-44.8); MPV 9.1 fL (7.6-11.3)
[2020-08-23 06:04] LABS: Magnesium 1.6 mg/dL (1.8-2.4); Potassium 3.8 mmol/L (3.5-5.1)
[2020-08-23] MEDS ORDERED: INSULIN -REGULAR HUMAN 50 UNIT/0.5 ML ML SQ SCH (07:30)
--- NOTE | 2020-08-23 08:41 | RAD REPORT ---
EXAM DESCRIPTION: US - Abdomen Exam Limited - 08/23/2020 8:01 am CLINICAL HISTORY: R/O cholecystitis Right upper quadrant abdominal pain COMPARISON: No comparisons FINDINGS: The gallbladder demonstrates small gallstones and gall sludge. No pericholecystic fluid or gallbladder wall thickening. The common bile duct is normal measuring 5 mm. The liver demonstrates no findings of intrahepatic biliary dilatation. IMPRESSION: Cholelithiasis without sonographic findings of cholecystitis per
[2020-08-23] MEDS ORDERED: KCL 20 MEQ/100 mL IVPB 20 MEQ/100 ML BAG IV SCH (09:00)
[2020-08-23] MEDS ORDERED: MAGNESIUM SULFATE 1 gm IVPB 1 GM/100 ML BAG IV ONE (09:00)
[2020-08-23] MEDS: PANTOPRAZOLE 40 MG INJ IVP SCH (10:15)
--- NOTE | 2020-08-23 12:31 | P.PN ---
Subjective Date of Service: 08/23/20 Primary Care Provider: Dr. Gabriel Chief Complaint: Suspected Cholecystitis Subjective: Other (Right upper quadrant abdominal pain noted. No significant nausea vomiting noted. Pain seems to be improved.) Physical Examination - Vital Signs Temperature: 97.5 F Blood Pressure: 138/63 Pulse: 72 Respirations: 18 Pulse Ox (%): 95 - Physical Exam General: Alert, In no apparent distress, Oriented x3, Cooperative HEENT: Atraumatic Neck: Supple Respiratory: Clear to auscultation bilaterally, Normal air movement Cardiovascular: Normal pulses, Regular rate/rhythm Gastrointestinal: Normal bowel sounds, Soft and benign, Non-distended, Tenderness (Mild pain to the right upper quadrant) Musculoskeletal: No erythema, No tenderness, No warmth Integumentary: No tenderness/swelling, No erythema, No warmth, No cyanosis Neurological: Normal speech, Normal strength at 5/5 x4 extr, Normal tone, Normal affect - Studies Laboratory Data (last 24 hrs) 08/23/20 05:24: Sodium 137, Potassium 3.8, BUN 23 H, Creatinine 1.18, Glucose 238 H, Magnesium 1.6 L 08/23/20 05:24: WBC 12.6 H, Hgb 11.6 L, Hct 33.3 L, Plt Count 247 08/23/20 00:51: Lipase 78 Medications List Reviewed: Yes Assessment & Plan Discharge Plan: Home Plan to discharge in: 24 Hours Physician Review Additional Text: Assessment Right upper quadrant abdominal pain with Cholelithiasis without cholecystitis Diabetes mellitus type 2-insulin dependent CAD S/P 3 vessel CABG Hypertension Hyperlipidemia Plan Right upper quadrant abdominal pain with Cholelithiasis without cholecystitis: Pain seems to be improved. Abdominal ultrasound shows no cholecystitis. Patient NPO at this time. Await evaluation by surgery to determine whether patient will require inpatient versus outpatient surgery. Patient may require HIDA scan to further evaluate. Diabetes mellitus type 2-insulin dependent: Continue Accu-Cheks and sliding scale. CAD S/P 3 vessel CABG: Will need to start medication Hypertension: Provide medication. Obtain and restart home medication. Hyperlipidemia: Obtain and restart home medication. Time Spent Managing Pts Care (In Minutes): 55
--- NOTE | 2020-08-23 14:32 | P.CNS ---
Date of Consult: 08/23/20 PC: This 65-year-old male presents with right upper quadrant abdominal pain. HPC: Patient has had severe right upper quadrant abdominal pain, radiating into his back, since yesterday. Has had previous episodes like this in the past. This is the worst 1. Still has not had any full relief from it. PMH: Coronary artery disease, hypocholesterolemia, diabetes PSHx: Open heart surgery SOC: No known drug allergies, medications noted SYS REVIEW: No cough, wheeze, shortness of breath. Rectal but when he breathes but because of the area on his abdomen. Denies any urinary complaints. Weight is been steady. O/E awake alert vital signs are stable HEENT: Anicteric Chest: Chest movement equal bilaterally ABD: Tender right upper quadrant, positive Milian sign LOCO: Intact DATA: Studies show possible hydrops of the gallbladder IMPRESSION: Cholecystitis, biliary colic PLAN: I will take him the operating room for laparoscopic possible open cholecystectomy. The risks of this procedure have been discussed. The possibility of bleeding, infection, injury to bile ducts blood vessels and intestines has been described. The possible need for an open and/or further surgeries and procedures was discussed. He his and son understand, and want to proceed.
[2020-08-23] MEDS: PIPER/TAZO/NS 3.375gm 3.375 GM/100 ML BAG ONE ×2 (15:37→17:37)
[2020-08-23] MEDS ORDERED: SUCCINYLCHOLINE 20 MG/ML (10 ML) IV ONE (17:10)
[2020-08-23] MEDS ORDERED: FENTANYL CITR 250 MCG/5 ML ONE (17:15)
[2020-08-23] MEDS ORDERED: MIDAZOLAM HCL 2 MG/2 ML INJ ONE (17:15)
[2020-08-23] MEDS ORDERED: propofoL 200 MG/20 ML VIAL IV ONE (17:15)
[2020-08-23] MEDS ORDERED: ROCURONIUM 50 MG/5 ML VIAL IV ONE (17:15)
[2020-08-23] MEDS ORDERED: NEOSTIGMINE 1 MG/ML -5 ML ONE (18:50)
[2020-08-23] MEDS ORDERED: GLYCOPYRROLATE 0.2 MG/ML SYR ONE (18:50)
--- NOTE | 2020-08-23 18:50 | P.OP ---
Preoperative diagnosis: Cholecystitis with hydrops of the gallbladder Postoperative diagnosis: The same Primary procedure: Laparoscopic cholecystectomy Secondary procedure: Cholangiogram Anesthesia: General Estimated blood loss: Less than 10 cc Specimen: 1 gallbladder and contents Findings: Distended gallbladder with marked inflammation and areas of patchy necrosis Operative Technique: The patient was brought to the operating room and placed supine on the table. After the induction of adequate general endotracheal anesthesia, the area of the abdomen was prepped with a DuraPrep solution, and she was draped in usual aseptic manner. A subumbilical incision was made. This brought down through the skin and subcutaneous tissue. The Visiport was used to enter the peritoneal cavity and created pneumoperitoneum to approximately 12 mm of mercury. Under direct vision a 5 mm trocar was placed in the upper midline, and 2 other 5 mm trocars on the right lateral side of the abdomen. The patient was then placed in reverse Trendelenburg. He was rolled to the left. We could visualize the right upper quadrant. We could see a considerable inflammatory response and the omentum was adherent in the right upper quadrant. Gently moved in dissected the omentum around. We saw remarkably inflamed gallbladder with that showed distention as well as some areas of patchy of possible necrosis. The omentum was dissected off of the gallbladder. The gallbladder was now grasped. It was surrounded by chronic heel as well. The gallbladder was dissected free of this after a very long tedious dissection. Applied lateral traction we were able to expose the cystic artery which was clipped and divided. This was part of our critical view. A clip was now placed between the gallbladder and the cystic duct. An opening was made into the cystic duct through which we obtained an intraoperative cholangiogram. Under pressure injection we did see contrast going through there was no evidence of any filling defect however there was not adequate flow and there is a suggestion that the patient may have some restriction at the junction of the common bile duct with the intestine. There is not a sharp cut off. There is no semilunar sign. It may be the he has passed a stone and this is the result of some rated meeting at the middle. It should be noted that did bilious material is very thick and mucoid that is in the common bile duct right now. At this point the catheter was removed on the distal portion of the cystic duct. The cystic duct was now fully transected. The gallbladder was dissected out from the liver bed, placed into an Endo-Catch and brought out through the umbilical trocar site. The abdomen was now inspected to ensure adequate hemostasis. The Endo Close was used to approximate the umbilical trocar site. The pneumoperitoneum was collapsed, the trocars removed, and frankie applied to the skin. At the end of the procedure he was in a stable condition when sent to the recovery room. Needle sponge instrument count were correct. No drains were placed.
[2020-08-23] MEDS ORDERED: Ringers Lactate 1,000 ML IV ONE (18:59)
[2020-08-23] MEDS ORDERED: KETOROLAC 30 MG/ML INJ ONE (19:40)
[2020-08-23] MEDS ORDERED: MORPHINE 4 MG/ML SYR ONE (19:40)
[2020-08-23] MEDS ORDERED: ONDANSETRON 4 MG/2 ML VIAL ONE (19:40)
[2020-08-23] MEDS ORDERED: GLUCAGON 1 MG/VIAL IM PRN (21:56)
[2020-08-23] MEDS ORDERED: D50W 25 GM/50 ML SYRINGE IV PRN (21:56)
[2020-08-24] MEDS: PIPER/TAZO/NS 3.375gm 3.375 GM/100 ML BAG IVPB SCH ×2 (00:28→08:33)
[2020-08-24] MEDS: NA CHLORIDE 0.9% 1,000 ML IV SCH ×2 (00:29→08:29)
[2020-08-24 00:43] VITALS: O2SAT 95
[2020-08-24] MEDS: HYDROMORPHONE HCL 1 MG/ML INJ IV PRN ×2 (00:45→06:27)
[2020-08-24 04:44] LABS: Absolute Lymphocytes (CBC) 1.4 K/uL (0.7-4.9); Basophils % 0.4 % (0-1.3); Hematocrit 32.6 % (39.6-49.0); Lymphocytes % 9.8 % (15.3-44.8); MPV 9.3 fL (7.6-11.3); RBC Red Blood Cell Count 3.66 M/uL (4.33-5.43)
[2020-08-24 04:58] LABS: Albumin 3.2 g/dL (3.4-5.0); Bilirubin Direct 0.4 mg/dL (0-0.2); Bilirubin Total 0.8 mg/dL (0.2-1.0); Magnesium 1.6 mg/dL (1.8-2.4); Potassium 4.1 mmol/L (3.5-5.1); Protein, Total 7.4 g/dL (6.4-8.2)
[2020-08-24] MEDS: INSULIN -REGULAR HUMAN 50 UNIT/0.5 ML ML SQ SCH ×2 (08:32→12:21)
[2020-08-24] MEDS: PANTOPRAZOLE 40 MG INJ IVP SCH (08:33)
--- NOTE | 2020-08-24 08:34 | RAD REPORT ---
EXAM DESCRIPTION: RAD - Cholangiogram Oper-Xray Or - 08/23/2020 8:44 pm CLINICAL HISTORY: [facility] SANDER W/IOC COMPARISON: Abdomen Exam Limited dated 08/23/2020 FINDINGS: There were 10 portable C-arm views obtained during a fluoroscopic assisted intraoperative cholangiogram. No suspicious or unexpected finding. Correlation is needed with findings during real-t dimitris fluoroscopic assessment. Fluoro time was 0.5 minutes with a calculated cumulative dose of 20.8 mGy. IMPRESSION: Intraoperative cholangiogram report is detailed.
[2020-08-24] MEDS ORDERED: Magnesium Sulfate 2gm IVPB 2 G/50 ML BAG IV ONE (09:00)
[2020-08-24] MEDS ORDERED: NA CHLORIDE 0.9% 1,000 ML IV SCH (09:23)
[2020-08-24] MEDS ORDERED: TRAMADOL HCL 50 MG TAB PO ONE (09:31)
[2020-08-24] MEDS ORDERED: TRAMADOL HCL 50 MG TAB PO PRN (09:35)
[2020-08-24] MEDS ORDERED: HYDROCODONE/APAP 7.5/325 MG TAB PO PRN (09:35)
--- NOTE | 2020-08-24 09:36 | P.PN ---
Subjective Date of Service: 08/24/20 Primary Care Provider: Dr. Gabriel Chief Complaint: Suspected Cholecystitis Subjective: Other (Patient with postoperative pain but improved. Overall stable. No significant nausea vomiting. T-max 100.3 at midnight.) Physical Examination - Vital Signs Temperature: 97.4 F Blood Pressure: 133/68 Pulse: 84 Respirations: 16 Pulse Ox (%): 95 - Physical Exam General: Alert, In no apparent distress, Oriented x3, Cooperative HEENT: Atraumatic Neck: Supple Respiratory: Clear to auscultation bilaterally, Normal air movement Cardiovascular: Normal pulses, Regular rate/rhythm Gastrointestinal: Normal bowel sounds, Non-distended, Other (Postop changes noted. Pain to the right upper quadrant improved.) Neurological: Normal speech, Normal strength at 5/5 x4 extr, Normal tone, Normal affect - Studies Laboratory Data (last 24 hrs) 08/24/20 04:24: Sodium 135 L, Potassium 4.1, BUN 22 H, Creatinine 1.49 H, Glucose 273 H, Magnesium 1.6 L, Total Bilirubin 0.8, AST 55 H, ALT 60, Alkaline Phosphatase 37 L 08/24/20 04:24: WBC 13.9 H, Hgb 11.1 L, Hct 32.6 L, Plt Count 224 Microbiology Data (last 24 hrs): 08/23/20 01:10 Nasopharnyx Coronavirus COVID-19 PCR - Final Medications List Reviewed: Yes Assessment & Plan Discharge Plan: Home Plan to discharge in: 24 Hours Physician Review Additional Text: Assessment Right upper quadrant abdominal pain with Cholelithiasis status post laparoscopic cholecystectomy and intraoperative cholangiogram showing evidence of cholecystitis with hydrops of the gallbladder with noted patchy areas of necrosis Acute renal injury likely from dehydration and above Diabetes mellitus type 2-insulin dependent CAD S/P 3 vessel CABG Hypertension Hyperlipidemia Diabetic neuropathy Plan Right upper quadrant abdominal pain with Cholelithiasis status post laparoscopic cholecystectomy and intraoperative cholangiogram showing evidence of cholecystitis with hydrops of the gallbladder with noted patchy areas of necrosis: Will provide medication for pain surgery. Patient to start ADA diet this a.m. Will monitor this closely. Will provide IV fluids due to acute renal injury. Will consider discharge later today if improved and okay with surgery if not likely within the next 24 hr. Encourage incentive spirometer. Encourage ambulation. Acute renal injury likely from dehydration and above: Will increase IV fluids. Will monitor this closely. Electrolyte protocol in place. Hold Lasix, Aldactone and lisinopril today. Diabetes mellitus type 2-insulin dependent: Continue Accu-Cheks and sliding scale. CAD S/P 3 vessel CABG: Continue aspirin and Plavix. Restart carvedilol. Hold Lasix and Aldactone due to acute renal injury. Hypertension: Restart carvedilol but twice daily. Hold lisinopril at this time due to acute renal injury. Hyperlipidemia: Restart home medication. Diabetic neuropathy: Restart home medication. Time Spent Managing Pts Care (In Minutes): 55
--- NOTE | 2020-08-24 14:29 | P.PN ---
Date of Service: 08/24/20 S: Patient feels better today, has been up ambulating, tolerating a diet. Pain is much improved, still has some periumbilical discomfort. O: Vital signs remain stable, wounds are clean A : surgically stable P: May be discharged when admitting physician agrees.
--- NOTE | 2020-08-24 15:49 | P.DS ---
Admission Date: 08/23/20 Discharge Date: 08/24/20 Primary Care Provider: Dr. Gabriel Disposition: ROUTINE DISCHARGE Discharge Condition: GOOD Reason for Admission: Suspected Cholecystitis Consultations: Surgery-Dr. Tafoya Procedures: ABUS: FINDINGS: The gallbladder demonstrates small gallstones and gall sludge. No pericholecystic fluid or gallbladder wall thickening. The common bile duct is normal measuring 5 mm. The liver demonstrates no findings of intrahepatic biliary dilatation. IMPRESSION: Cholelithiasis without sonographic findings of cholecystitis Surgery: Preoperative diagnosis: Cholecystitis with hydrops of the gallbladder Postoperative diagnosis: The same Primary procedure: Laparoscopic cholecystectomy Secondary procedure: Cholangiogram Anesthesia: General Estimated blood loss: Less than 10 cc Specimen: 1 gallbladder and contents Findings: Distended gallbladder with marked inflammation and areas of patchy necrosis Medical Problem List: Right upper quadrant abdominal pain with Cholelithiasis status post laparoscopic cholecystectomy and intraoperative cholangiogram showing evidence of cholecystitis with hydrops of the gallbladder with noted patchy areas of necrosis Acute renal injury likely from dehydration and above Diabetes mellitus type 2-insulin dependent CAD S/P 3 vessel CABG Hypertension Hyperlipidemia Diabetic neuropathy Brief History of Present Illness: 65-year-old male presented to the emergency room with right upper quadrant abdominal pain. Patient was admitted for further evaluation. Hospital Course: Patient presented with right upper quadrant abdominal pain. Patient was evaluated by surgery. Cholelithiasis was noted. Due to worsening pain the patient required surgical intervention. Patient had laparoscopic cholecystectomy and intraoperative cholangiogram showing evidence of cholecystitis with hydrops of the gallbladder with noted patchy areas of necrosis. The patient did well post operatively. Patient able the tolerate diet. Pain better controlled. Case discussed in detail with surgery. Surgery agrees with discharge at this time. Patient does not have any significant nausea, vomiting. Pain well controlled. Recommend to continue with postop ca re. No heavy lifting, pushing or pulling. Patient will continue with a soft diabetic diet. Patient with diabetes mellitus type 2, CAD with prior CABG, hypertension, hyperlipidemia, and diabetic neuropathy. At discharge patient will continue with his current medications. Patient also had some acute renal injury likely from dehydration. Patient received IV fluids. Lasix, Aldactone and lisinopril were held over the last day. Patient may continue with his current medications. Recommend to recheck lab-BMP in 1 week to monitor his progress. Vital Signs/Physical Exam: Temp Pulse Resp BP Pulse Ox 97.8 F 72 16 114/58 L 96 11/24/20 12:00 08/24/20 12:00 08/24/20 12:00 08/24/20 12:00 08/24/20 12:00 General: Alert, In no apparent distress, Oriented x3, Cooperative HEENT: Atraumatic Neck: Supple Respiratory: Clear to auscultation bilaterally, Normal air movement Cardiovascular: Normal pulses, Regular rate/rhythm Gastrointestinal: Normal bowel sounds, Soft and benign, Non-distended, No tende rness, No masses, No rebound, No guarding Musculoskeletal: No erythema, No tenderness, No warmth Integumentary: No tenderness/swelling, No erythema, No warmth, No cyanosis Neurological: Normal speech, Normal strength at 5/5 x4 extr, Normal tone, Normal affect Laboratory Data at Discharge: WBC 13.9 K/uL (4.3-10.9) H 08/24/20 04:24 Hgb 11.1 g/dL (13.6-17.9) L 08/24/20 04:24 Hct 32.6 % (39.6-49.0) L 08/24/20 04:24 Plt Count 224 K/uL (152-406) 08/24/20 04:24 Sodium 135 mmol/L (136-145) L 08/24/20 04:24 Potassium 4.1 mmol/L (3.5-5.1) 08/24/20 04:24 BUN 22 mg/dL (7-18) H 08/24/20 04:24 Creatinine 1.49 mg/dL (0.55-1.3) H 08/24/20 04:24 Glucose 273 mg/dL (74-106) H 08/24/20 04:24 Magnesium 1.6 mg/dL (1.8-2.4) L 08/24/20 04:24 Total Bilirubin 0.8 mg/dL (0.2-1.0) 08/24/20 04:24 AST 55 U/L (15-37) H 08/24/20 04:24 ALT 60 U/L (12-78) 08/24/20 04:24 Alkaline Phosphatase 37 U/L (45-117) L 08/24/20 04:24 Lipase 78 U/L (73-393) 11/23/20 00:51 Home Medications: Atorvastatin Calcium [Lipitor] 80 mg PO BEDTIME 07/16/19 Gabapentin 300 mg PO BID 07/16/19 Liraglutide [Victoza 2-Thompson] 1.8 mg SQ DAILY 07/16/19 Aspirin 81 mg PO DAILY 10/15/19 Clopidogrel Bisulfate [Plavix*] 75 mg PO DAILY 10/15/19 Furosemide 40 mg PO DAILY 10/15/19 Isosorbide Mononitrate [Isosorbide Mononitrate ER] 120 mg PO DAILY 10/15/19 Metformin HCl 1,000 mg PO BID 10/15/19 bisacodyL [Dulcolax*] 5 mg PO PRN PRN 10/15/19 Carvedilol [Coreg] 3.125 mg PO DAILY 08/23/20 Fenofibrate [Tricor*] 145 mg PO DAILY 08/23/20 Icosapent Ethyl [Vascepa 1 gm Cap] 1 gm PO BID 08/23/20 Insulin Degludec [Tresiba] 12 unit SQ DAILY 08/23/20 Lisinopril [Zestril] 2.5 mg PO DAILY 08/23/20 Spironolactone [Aldactone*] 25 mg PO DAILY 08/23/20 Patient Discharge Instructions: 1. Recommend follow up with PCP in 1 week to follow up this hospitalization. 2. Patient presented with right upper quadrant abdominal pain. Patient was evaluated by surgery. Cholelithiasis was noted. Due to worsening pain the patient required surgical intervention. Patient had laparoscopic cholecystectomy and intraoperative cholangiogram showing evidence of cholecystitis with hydrops of the gallbladder with noted patchy areas of necrosis. The patient did well post operatively. Patient able the tolerate diet. Pain better controlled. Case discussed in detail with surgery. Surgery agrees with discharge at this time. Patient does not have any significant nausea, vomiting. Pain well controlled. Recommend to continue with postop care. No heavy lifting, pushing or pulling. Patient will continue with a soft diabetic diet. 3. Patient with diabetes mellitus type 2, CAD with prior CABG, hypertension, hyperlipidemia, and diabetic neuropathy. At discharge patient will continue with his current medications. Patient also had some acute renal injury likely from dehydration. Patient received IV fluids. Lasix, Aldactone and lisinopril were held over the last day. Patient may continue with his current medications. Recommend to recheck lab-BMP in 1 week to monitor his progress. Diet: ADA Activity: Ad nhi Time spent managing pt's care (in minutes): 55
[2020-08-24 16:37] VITALS: BP 152/70; TEMP 97.7
[2020-08-24] MEDS ORDERED: carvediloL 3.125 MG TAB PO SCH (21:00)
[2020-08-24] MEDS ORDERED: ATORVASTATIN 40 MG TAB PO SCH (21:00)
[2020-08-24] MEDS ORDERED: GABAPENTIN 300 MG CAP PO SCH (21:00)
[2020-08-25] MEDS ORDERED: CLOPIDOGREL 75 MG TABLET PO SCH (09:00)
[2020-08-25] MEDS ORDERED: FENOFIBRATE 160 MG TAB PO SCH (09:00)
[2020-08-25] MEDS ORDERED: ISOSORBIDE MONO SR 60 MG TAB PO SCH (09:00)
[2020-08-25] MEDS ORDERED: ASPIRIN 81 MG CHEWABLE TABLET PO SCH (09:00)
== END 2020-08-24 17:34 | disposition home or self-care (01) ==
LOC: INTOOBSV 08-23 00:13 → 2ND 08-23 00:13
PROVIDERS: ADMIT Hospitalist; ATTEND Family Medicine
PROC: BF131ZZ Fluoroscopy of Gallbladder and Bile Ducts using Low Osmolar Contrast (ICD-10-PCS; 2020-08-23)
PROC: 0FT44ZZ Resection of Gallbladder, Percutaneous Endoscopic Approach (ICD-10-PCS; principal; 2020-08-23 15:45)
DX: K81.2 Acute cholecystitis with chronic cholecystitis (principal); Z20.828 Contact with and (suspected) exposure to other viral communicable diseases; E11.40 Type 2 diabetes mellitus with diabetic neuropathy, unspecified; Z79.4 Long term (current) use of insulin; E66.9 Obesity, unspecified; I10 Essential (primary) hypertension; K82.1 Hydrops of gallbladder; N17.9 Acute kidney failure, unspecified; E86.0 Dehydration; I25.10 Atherosclerotic heart disease of native coronary artery without angina pectoris; Z95.1 Presence of aortocoronary bypass graft; E78.5 Hyperlipidemia, unspecified; Z95.810 Presence of automatic (implantable) cardiac defibrillator; Z95.5 Presence of coronary angioplasty implant and graft; Z87.891 Personal history of nicotine dependence
CPT/HCPCS: 47563; 85025 ×2; 80048 ×2; 36415 ×2; 83735 ×2; 82947 ×7; 80076; 88304; 83690; 74300; 76705; U0002; J2704; J0330; C9113 ×2; J3480; J2250; J3010; J3475 ×2; J2543 ×3; J1170 ×7; J2710; J7120; J7030 ×3; J2405 ×4; G0378 ×3; 81003; 81015

== ENCOUNTER 2022-09-03 08:20 | Emergency (ER) | payer OTHER ==
--- OUTSIDE RECORDS SUMMARY | 2022-09-03 08:36 | XMS REPORT | Continuity of Care Document ---
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 tablet 00:00: mouth [place] 00 daily. Medical Branch Furosemide 0 Yes 1{tbl} Take 1 Cristofer sey 40 MG oral 1-28 tablet by Seyb old Tablet 00:00: mouth 00 Furosemide 2021-0 Yes 1{tbl} Take 1 Cristofer sey 40 MG oral 1-28 tablet by Seyb old Tablet 00:00: mouth 00 spironolact 0 Yes [id number] 25mg Take 1 [facility] one 25 mg 1-25 tablet by ity o f tablet 00:00: mouth [place] 00 daily. Medical Branch icosapent Yes [id number] 2g Take 2 U nivers ethyL 1-25 capsules ity of (VASCEPA) 1 00:00: by mouth 2 [place] gram 00 (two) Medical capsule times Branch daily. spironolact Yes [id number] 25mg Take 1 [facility] one 25 mg 1-25 tablet by ity o f tablet 00:00: mouth [place] 00 daily. Medical Branch icosapent Yes [id number] 2g Take 2 U nivers ethyL 1-25 capsules ity of (VASCEPA) 1 00:00: by mouth 2 [place] gram 00 (two) Medical capsule times Branch daily. spironolact 2021- Yes [id number] 25mg Take 1 [facility] one 25 mg 1-25 tablet by ity o f tablet 00:00: mouth [place] 00 daily. Medical Branch icosapent Yes [id number] 2g Take 2 U nivers ethyL 1-25 capsules ity of (VASCEPA) 1 00:00: by mouth 2 [place] gram 00 (two) Medical capsule times Branch daily. spironolact 0 Yes [id number] 25mg Take 1 [facility] one 25 mg 1-25 tablet by ity o f tablet 00:00: mouth [place] 00 daily. Medical Branch icosapent Yes [id number] 2g Take 2 U nivers ethyL 1-25 capsules ity of (VASCEPA) 1 00:00: by mouth 2 [place] gram 00 (two) Medical capsule times Branch daily. spironolact 2021-0 Yes [id number] 25mg Take 1 [facility] one 25 mg 1-25 tablet by ity o f tablet 00:00: mouth [place] 00 daily. Medical Branch icosapent 2021-0 Yes [id number] 2g Take 2 U nivers ethyL 1-25 capsules ity of (VASCEPA) 1 00:00: by mouth 2 [place] gram 00 (two) Medical capsule times Branch daily. spironolact 0 Yes [id number] 25mg Take 1 [facility] one 25 mg 1-25 tablet by ity o f tablet 00:00: mouth [place] 00 daily. Medical Branch icosapent 0 Yes [id number] 2g Take 2 U nivers ethyL 1-25 capsules ity of (VASCEPA) 1 00:00: by mouth 2 [place] gram 00 (two) Medical capsule times Branch daily. spironolact Yes [id number] 25mg Take 1 [facility] one 25 mg 1-25 tablet by ity o f tablet 00:00: mouth [place] 00 daily. Medical Branch icosapent 0 Yes [id number] 2g Take 2 U nivers ethyL 1-25 capsules ity of (VASCEPA) 1 00:00: by mouth 2 [place] gram (two) Medical capsule times Branch daily. spironolact 0 Yes [id number] 25mg Take 1 [facility] one 25 mg 1-25 tablet by ity o f tablet 00:00: mouth [place] 00 daily. Medical Branch icosapent 0 Yes [id number] 2g Take 2 U nivers ethyL 1-25 capsules ity of (VASCEPA) 1 00:00: by mouth 2 [place] gram 00 (two) Medical capsule times Branch daily. spironolact 2021-0 Yes [id number] 25mg Take 1 [facility] one 25 mg 1-25 tablet by ity o f tablet 00:00: mouth [place] 00 daily. Medical Branch icosapent 0 Yes [id number] 2g Take 2 U nivers ethyL 1-25 capsules ity of (VASCEPA) 1 00:00: by mouth 2 [place] gram 00 (two) Medical capsule times Branch daily. spironolact 2021-0 Yes [id number] 25mg Take 1 [facility] one 25 mg 1-25 tablet by ity o f tablet 00:00: mouth [place] 00 daily. Medical Branch icosapent Yes [id number] 2g Take 2 U nivers ethyL 1-25 capsules ity of (VASCEPA) 1 00:00: by mouth 2 [place] gram 00 (two) Medical capsule times Branch daily. spironolact Yes [id number] 25mg Take 1 [facility] one 25 mg 1-25 tablet by ity o f tablet 00:00: mouth [place] 00 daily. Medical Branch icosapent Yes [id number] 2g Take 2 U nivers ethyL 1-25 capsules ity of (VASCEPA) 1 00:00: by mouth 2 [place] gram 00 (two) Medical capsule times Branch daily. spironolact Yes [id number] 25mg Take 1 [facility] one 25 mg 1-25 tablet by ity o f tablet 00:00: mouth [place] 00 daily. Medical Branch icosapent Yes [id number] 2g Take 2 U nivers ethyL 1-25 capsules ity of (VASCEPA) 1 00:00: by mouth 2 [place] gram 00 (two) Medical capsule times Branch daily. spironolact Yes [id number] 25mg Take 1 [facility] one 25 mg 1-25 tablet by ity o f tablet 00:00: mouth [place] 00 daily. Medical Branch icosapent Yes [id number] 2g Take 2 U nivers ethyL 1-25 capsules ity of (VASCEPA) 1 00:00: by mouth 2 [place] gram 00 (two) Medical capsule times Branch daily. spironolact 0 Yes [id number] 25mg Take 1 [facility] one 25 mg 1-25 tablet by ity o f tablet 00:00: mouth [place] 00 daily. Medical Branch icosapent Yes [id number] 2g Take 2 U nivers ethyL 1-25 capsules ity of (VASCEPA) 1 00:00: by mouth 2 [place] gram 00 (two) Medical capsule times Branch daily. spironolact 2021-0 Yes [id number] 25mg Take 1 [facility] one 25 mg 1-25 tablet by ity o f tablet 00:00: mouth [place] 00 daily. Medical Branch spironolact 0 Yes [id number] 25mg Take 1 [facility] one 25 mg 1-25 tablet by ity o f tablet 00:00: mouth [place] 00 daily. Medical Branch Icosapent 2021-0 Yes Jada Ethyl 1 g 1-25 [facility] oral 00:00: Capsule 00 Spironolact 2021-0 Yes 1{tbl} Take 1 Ke lsey one 25 MG 1-25 tablet by Seybo ld oral Tablet 00:00: mouth 00 Icosapent 2021-0 Yes Jada Ethyl 1-25 [facility] (Vascepa) 1 00:00: g oral 00 Capsule Spironolact 2021-0 Yes 1{tbl} Take 1 Ke lsey one 25 MG 1-25 tablet by Seybo ld oral Tablet 00:00: mouth 00 icosapent 2021-0 2022- No [id number] 2g Take 2 [facility] ethyL 1-25 10-31 capsules ity of (VASCEPA) 1 00:00: 00:00 by mouth 2 [place] gram 00 :00 (two) Medical capsule times Branch daily. Alcohol Alcohol 2021-0 No Alcohol Swabs 70 % Swabs 70 % 1-18 Swabs 70 % 00:00: 00 Lancets - Lancets - 2021-0 No TID Lancets - 1-18 00:00: 00 Alcohol Alcohol 2021-0 No Alcohol Swabs 70 % Swabs 70 % 1-18 Swabs 70 % 00:00: 00 Lancets - Lancets - 2021-0 No TID Lancets - 1-18 00:00: 00 Alcohol Alcohol 2-0 No Alcohol Swabs 70 % Swabs 70 % 1-18 Swabs 70 % 00:00: 00 Lancets - Lancets - 2-0 No TID Lancets - 1-18 00:00: 00 Alcohol Alcohol 2-0 No Alcohol Swabs 70 % Swabs 70 % 1-18 Swabs 70 % 00:00: 00 Lancets - Lancets - 2-0 No TID Lancets - 1-18 00:00: 00 Lancets - Lancets - 2-0 No TID Lancets - 1-18 00:00: 00 Alcohol Alcohol 2022-0 No Alcohol Swabs 70 % Swabs 70 % 1-18 Swabs 70 % 00:00: 00 Lancets - Lancets - 2-0 No TID Lancets - 1-18 00:00: 00 Alcohol Alcohol 2022-0 No Alcohol Swabs 70 % Swabs 70 % 1-18 Swabs 70 % 00:00: 00 Alcohol Alcohol 2022-0 No Alcohol Swabs 70 % Swabs 70 % 1-18 Swabs 70 % 00:00: 00 Lancets - Lancets - 2022-0 No TID Lancets - 1-18 00:00: 00 Lancets - Lancets - 2022-0 No TID Lancets - 1-18 00:00: 00 Alcohol Alcohol 2022-0 No Alcohol Swabs 70 % Swabs 70 % 1-18 Swabs 70 % 00:00: 00 Lancets - Lancets - 2-0 No TID Lancets - 1-18 00:00: 00 Alcohol Alcohol 2-0 No Alcohol Swabs 70 % Swabs 70 % 1-18 Swabs 70 % 00:00: 00 Lancets - Lancets - 2022-0 No TID Lancets - 1-18 00:00: 00 Alcohol Alcohol 2-0 No Alcohol Swabs 70 % Swabs 70 % 1-18 Swabs 70 % 00:00: 00 Lancets - Lancets - 2-0 No TID Lancets - 1-18 00:00: 00 Alcohol Alcohol 2-0 No Alcohol Swabs 70 % Swabs 70 % 1-18 Swabs 70 % 00:00: 00 Lancets - Lancets - 2-0 No TID Lancets - 1-18 00:00: 00 Alcohol Alcohol 2-0 No Alcohol Swabs 70 % Swabs 70 % 1-18 Swabs 70 % 00:00: 00 Alcohol Alcohol 2-0 No Alcohol Swabs 70 % Swabs 70 % 1-18 Swabs 70 % 00:00: 00 Lancets - Lancets - 2022-0 No TID Lancets - 1-18 00:00: 00 Alcohol Alcohol 2-0 No Alcohol Swabs 70 % Swabs 70 % 1-18 Swabs 70 % 00:00: 00 Lancets - Lancets - 2-0 No TID Lancets - 1-18 00:00: 00 Glucose Glucose 2021-0 No TID Glucose testing testing 1-14 testing strips n/s strips n/s 00:00: strips n/s 00 Glucose Glucose 2-0 No TID Glucose testing testing 1-14 testing strips n/s strips n/s 00:00: strips n/s 00 Glucose Glucose 2-0 No TID Glucose testing testing 1-14 testing strips n/s strips n/s 00:00: strips n/s 00 Glucose Glucose 2022-0 No TID Glucose testing testing 1-14 testing strips n/s strips n/s 00:00: strips n/s 00 Glucose Glucose 2022-0 No TID Glucose testing testing 1-14 testing strips n/s strips n/s 00:00: strips n/s 00 Glucose Glucose 2022-0 No TID Glucose testing testing 1-14 testing strips n/s strips n/s 00:00: strips n/s 00 Glucose Glucose 2022-0 No TID Glucose testing testing 1-14 testing strips n/s strips n/s 00:00: strips n/s 00 Glucose Glucose 2-0 No TID Glucose testing testing 1-14 testing strips n/s strips n/s 00:00: strips n/s 00 Glucose Glucose 2-0 No TID Glucose testing testing 1-14 testing strips n/s strips n/s 00:00: strips n/s 00 Glucose Glucose 2022-0 No TID Glucose testing testing 1-14 testing strips n/s strips n/s 00:00: strips n/s 00 Glucose Glucose 2-0 No TID Glucose testing testing 1-14 testing strips n/s strips n/s 00:00: strips n/s 00 Glucose Glucose 2-0 No TID Glucose testing testing 1-14 testing strips n/s strips n/s 00:00: strips n/s 00 Glucose Glucose 2-0 No TID Glucose testing testing 1-14 testing strips n/s strips n/s 00:00: strips n/s 00 Glucose Glucose 2-0 No TID Glucose testing testing 1-14 testing strips n/s strips n/s 00:00: strips n/s 00 Glucose Glucose 2022-0 No TID Glucose testing testing 1-14 testing strips n/s strips n/s 00:00: strips n/s 00 Glucose Glucose 2022-0 No TID Glucose testing testing 1-14 testing strips n/s strips n/s 00:00: strips n/s 00 Glucometer Glucometer 2022-0 2022- No Glucometer n/s n/s 10-14 n/s 00:00: 00:00 00 :00 Glucometer Glucometer 2022-0 2- No Glucometer n/s n/s 10-14 n/s 00:00: 00:00 00 :00 Glucometer Glucometer 0 2021- No Glucometer n/s n/s 10-14 n/s 00:00: 00:00 00 :00 Glucometer Glucometer 0 2021- No Glucometer n/s n/s 10-14 n/s 00:00: 00:00 00 :00 ezetimibe 2020-10 Yes 10mg Take 1 Univer s 10 mg 0-28 tablet by ity of tablet 00:00: mouth [place] 00 daily. Medical Branch ezetimibe 2020-10 Yes 10mg Take 1 Univer s 10 mg 0-28 tablet by ity of tablet 00:00: mouth [place] 00 daily. Medical Branch ezetimibe 2020-10 Yes 10mg Take 1 Univer s 10 mg 0-28 tablet by ity of tablet 00:00: mouth [place] 00 daily. Medical Branch Ezetimibe 2020-10 Yes 10mg Take 10 mg Ke lsey 10 MG oral 0-28 by mouth Seybo ld Tablet 00:00: daily Ezetimibe 2020-10 Yes 10mg Take 10 mg Ke lsey 10 MG oral 0-28 by mouth Sey[facility] ld Tablet 00:00: daily ezetimibe 2020-10- No 10mg Take 1 Unive rs 10 mg 0-28 06-01 tablet by ity of tablet 00:00: 00:00 mouth [place] 00 :00 daily. Medical Branch metFORMIN 2020-10 Yes 1000mg Take 1,000 [facility] 1,000 mg 0-15 mg by ity of tablet 09:33: mouth 2 [place] 33 (two) Medical times Branch daily with meals. glimepiride 2020-10 Yes 4mg Take 4 mg U nivers 4 mg tablet 0-15 by mouth 2 it y of 09:33: (two) [place] 33 times Medical daily. Branch UBIDECAR/FI 2020-10 Yes Take by Uni vers SH 0-15 mouth. ity of OIL/OMEGA-3 09:33: [place] /OSMIN (CO 33 Medical [id number] Branch OIL-OMEGA 3-E ORAL) SITagliptin 2020-10 Yes 100mg Take 100 U nivers (JANUVIA) 0-15 mg by ity of 100 mg 09:33: mouth [place] tablet 33 daily. Medical Branch liraglutide 2020-10 Yes 1.8mg inject 1.8 Univers (VICTOZA 0-15 mg under ity of 3-АЛЕКСАНДР SC) 09:33: the [place] 33 daily. [facility] tamsulosin 2020-10 Yes Take by Univ ers 0.4 mg 24 0-15 mouth ity of hr capsule 09:33: daily. [place] [address] Medical Branch multivitami 2020-10 Yes 1{tbl} Take 1 Un todd n tablet 0-15 tablet by ity of 09:33: mouth [place] 33 daily. Medical Branch CALCIUM-MAG 2020-10 Yes Take by Uni vers NESIUM-ZINC 0-15 mouth ity of ORAL 09:33: daily. [place] [address] Medical Branch metFORMIN 2020-10 Yes 1000mg Take 1,000 [facility] 1,000 mg 0-15 mg by ity of tablet 09:33: mouth 2 [place] [address] (two) Medical times Branch daily with meals. glimepiride 2020-10 Yes 4mg Take 4 mg U nivers 4 mg tablet 0-15 by mouth 2 it y of 09:33: (two) [place] [address] times Medical daily. Branch UBIDECAR/FI 2020-10 Yes Take by Uni vers SH 0-15 mouth. ity of OIL/OMEGA-3 09:33: [place] /OSMIN ([facility] Medical [id number] Branch OIL-OMEGA 3-E ORAL) SITagliptin 2020-10 Yes 100mg Take 100 U nivers (JANUVIA) 0-15 mg by ity of 100 mg 09:33: mouth [place] tablet 33 daily. Medical Branch liraglutide 2020-10 Yes 1.8mg inject 1.8 [facility] (VICTOZA 0-15 mg under ity of 3-АЛЕКСАНДР SC) 09:33: [place] 33 daily. [facility] tamsulosin 2020-10 Yes Take by [facility] ers 0.4 mg 24 0-15 mouth ity of hr capsule 09:33: daily. [place] [address] Medical Branch multivitami 2020-10 Yes 1{tbl} Take 1 Un todd n tablet 0-15 tablet by ity of 09:33: mouth [place] 33 daily. Medical Branch CALCIUM-MAG 2020-10 Yes Take by Uni vers NESIUM-ZINC 0-15 mouth ity of ORAL 09:33: daily. [place] 33 Medical Branch metFORMIN 2020-10 Yes 1000mg Take 1,000 [facility] 1,000 mg 0-15 mg by ity of tablet 09:33: mouth 2 [place] [address] (two) Medical [facility] daily with meals. glimepiride 2020-10 Yes 4mg Take 4 mg U nivers 4 mg tablet 0-15 by mouth 2 it y of 09:33: (two) [place] [address] times Medical daily. Branch UBIDECAR/FI 2020-10 Yes Take by Uni vers SH 0-15 mouth. ity of OIL/OMEGA-3 09:33: [place] /OSMIN (NH 33 [facility] [id number] [place] OIL-OMEGA 3-E ORAL) SITagliptin 2020-10 Yes 100mg Take 100 U nivers (JANUVIA) 0-15 mg by ity of 100 mg 09:33: mouth [place] tablet 33 daily. Medical Branch liraglutide 2020-10 Yes 1.8mg inject 1.8 [facility] (VICTOZA 0-15 mg under ity of 3-АЛЕКСАНДР SC) 09:33: the [place] 33 daily. [facility] Branch tamsulosin 2020-10 Yes Take by Univ ers 0.4 mg 24 0-15 mouth ity of hr capsule 09:33: daily. [address] Branch multivitami 2020-10 Yes 1{tbl} Take 1 Un todd n tablet 0-15 tablet by ity of 09:33: mouth [place] [address] daily. Medical Branch CALCIUM-MAG 2020-10 Yes Take by Uni vers NESIUM-ZINC 0-15 mouth ity of ORAL 09:33: daily. [address] metFORMIN 2020-10 Yes 1000mg Take 1,000 [facility] 1,000 mg 0-15 mg by ity of tablet 09:33: mouth 2 [place] [address] (two) [facility] daily with meals. glimepiride 2020-10 Yes 4mg Take 4 mg U nivers 4 mg tablet 0-15 by mouth 2 it y of 09:33: (two) [place] [address] times Medical daily. Branch UBIDECAR/FI 2020-10 Yes Take by Uni vers SH 0-15 mouth. ity of OIL/OMEGA-3 09:33: [place] /OSMIN (CO 33 [facility] [id number] [place] OIL-OMEGA 3-E ORAL) SITagliptin 2020-10 Yes 100mg Take 100 U nivers (JANUVIA) 0-15 mg by ity of 100 mg 09:33: mouth [place] tablet 33 daily. Medical Branch liraglutide 2020-10 Yes 1.8mg inject 1.8 [facility] (VICTOZA 0-15 mg under ity of 3-АЛЕКСАНДР SC) 09:33: the [place] 33 daily. [facility] tamsulosin 2020-10 Yes Take by Univ ers 0.4 mg 24 0-15 mouth ity of hr capsule 09:33: daily. [place] [address] Medical Branch multivitami 2020-10 Yes 1{tbl} Take 1 Un todd n tablet 0-15 tablet by ity of 09:33: mouth [place] 33 daily. Medical Branch CALCIUM-MAG 2020-10 Yes Take by Uni vers NESIUM-ZINC 0-15 mouth ity of ORAL 09:33: daily. [place] [address] Medical Branch metFORMIN 2020-10 Yes 1000mg Take 1,000 [facility] 1,000 mg 0-15 mg by ity of tablet 09:33: mouth 2 [place] [address] (two) Medical times Branch daily with meals. glimepiride 2020-10 Yes 4mg Take 4 mg U nivers 4 mg tablet 0-15 by mouth 2 it y of 09:33: (two) [place] 33 times Medical daily. Branch UBIDECAR/FI 2020-10 Yes Take by Uni vers SH 0-15 mouth. ity of OIL/OMEGA-3 09:33: [place] /OSMIN (NH 33 Medical [id number] Branch OIL-OMEGA 3-E ORAL) SITagliptin 2020-10 Yes 100mg Take 100 U nivers (JANUVIA) 0-15 mg by ity of 100 mg 09:33: mouth [place] tablet 33 daily. Medical Branch liraglutide 2020-10 Yes 1.8mg inject 1.8 [facility] (VICTOZA 0-15 mg under ity of 3-АЛЕКСАНДР SC) 09:33: the [place] 33 daily. Medical Branch tamsulosin 2020-10 Yes Take by Univ ers 0.4 mg 24 0-15 mouth ity of hr capsule 09:33: daily. [place] [address] Medical Branch multivitami 2020-10 Yes 1{tbl} Take 1 Un todd n tablet 0-15 tablet by ity of 09:33: mouth [place] 33 daily. Medical Branch CALCIUM-MAG 2020-10 Yes Take by Uni vers NESIUM-ZINC 0-15 mouth ity of ORAL 09:33: daily. [address] Branch metFORMIN 2020-10 Yes 1000mg Take 1,000 [facility] 1,000 mg 0-15 mg by ity of tablet 09:33: mouth 2 [place] [address] (two) Medical [facility] daily with meals. glimepiride 2020-10 Yes 4mg Take 4 mg U nivers 4 mg tablet 0-15 by mouth 2 it y of 09:33: (two) [place] [address] times Medical daily. Branch UBIDECAR/FI 2020-10 Yes Take by Uni vers SH 0-15 mouth. ity of OIL/OMEGA-3 09:33: [place] /OSMIN (CO 33 Medical [id number] [place] OIL-OMEGA 3-E ORAL) SITagliptin 2020-10 Yes 100mg Take 100 U nivers (JANUVIA) 0-15 mg by ity of 100 mg 09:33: mouth [place] tablet 33 daily. Medical Branch liraglutide 2020-10 Yes 1.8mg inject 1.8 [facility] (VICTOZA 0-15 mg under ity of 3-АЛЕКСАНДР SC) 09:33: the [place] 33 daily. Medical Branch tamsulosin 2020-10 Yes Take by Univ ers 0.4 mg 24 0-15 mouth ity of hr capsule 09:33: daily. [address] Branch multivitami 2020-10 Yes 1{tbl} Take 1 Un todd n tablet 0-15 tablet by ity of 09:33: mouth [place] 33 daily. Medical Branch CALCIUM-MAG 2020-10 Yes Take by Uni vers NESIUM-ZINC 0-15 mouth ity of ORAL 09:33: daily. [address] metFORMIN 2020-10 Yes 1000mg Take 1,000 [facility] 1,000 mg 0-15 mg by ity of tablet 09:33: mouth 2 [place] [address] (two) [facility] daily with meals. glimepiride 2020-10 Yes 4mg Take 4 mg U nivers 4 mg tablet 0-15 by mouth 2 it y of 09:33: (two) [place] [address] times Medical daily. Branch UBIDECAR/FI 2020-10 Yes Take by Uni vers SH 0-15 mouth. ity of OIL/OMEGA-3 09:33: [place] /OSMIN (CO 33 [facility] [id number] [place] OIL-OMEGA 3-E ORAL) SITagliptin 2020-10 Yes 100mg Take 100 U nivers (JANUVIA) 0-15 mg by ity of 100 mg 09:33: mouth [place] tablet 33 daily. Medical Branch liraglutide 2020-10 Yes 1.8mg inject 1.8 [facility] (VICTOZA 0-15 mg under ity of 3-АЛЕКСАНДР SC) 09:33: the skin [place] 33 daily. Medical Branch tamsulosin 2020-10 Yes Take by Univ ers 0.4 mg 24 0-15 mouth ity of hr capsule 09:33: daily. [place] [address] Medical Branch multivitami 2020-10 Yes 1{tbl} Take 1 Un todd n tablet 0-15 tablet by ity of 09:33: mouth [place] 33 daily. Medical Branch CALCIUM-MAG 2020-10 Yes Take by Uni vers NESIUM-ZINC 0-15 mouth ity of ORAL 09:33: daily. [place] [address] Medical Branch metFORMIN 2020-10 Yes 1000mg Take 1,000 [facility] 1,000 mg 0-15 mg by ity of tablet 09:33: mouth 2 [place] [address] (two) Medical times Branch daily with meals. glimepiride 2020-10 Yes 4mg Take 4 mg U nivers 4 mg tablet 0-15 by mouth 2 it y of 09:33: (two) [place] [address] times Medical daily. Branch UBIDECAR/FI 2020-10 Yes Take by Uni vers SH 0-15 mouth. ity of OIL/OMEGA-3 09:33: [place] /OSMIN (NH 33 Medical [id number] Branch OIL-OMEGA 3-E ORAL) SITagliptin 2020-10 Yes 100mg Take 100 U nivers (JANUVIA) 0-15 mg by ity of 100 mg 09:33: mouth [place] tablet 33 daily. Medical Branch liraglutide 2020-10 Yes 1.8mg inject 1.8 [facility] (VICTOZA 0-15 mg under ity of 3-АЛЕКСАНДР SC) 09:33: the [place] 33 daily. Medical Branch tamsulosin 2020-10 Yes Take by [facility] ers 0.4 mg 24 0-15 mouth ity of hr capsule 09:33: daily. [place] [address] Medical Branch multivitami 2020-10 Yes 1{tbl} Take 1 Un todd n tablet 0-15 tablet by ity of 09:33: mouth [place] 33 daily. Medical Branch CALCIUM-MAG 2020-10 Yes Take by Uni vers NESIUM-ZINC 0-15 mouth ity of ORAL 09:33: daily. [address] Branch metFORMIN 2020-10 Yes 1000mg Take 1,000 Univers 1,000 mg 0-15 mg by ity of tablet 09:33: mouth 2 [place] [address] (two) Medical times [place] daily with meals. glimepiride 2020-10 Yes 4mg Take 4 mg U nivers 4 mg tablet 0-15 by mouth 2 it y of 09:33: (two) [place] 33 times Medical daily. Branch UBIDECAR/FI 2020-10 Yes Take by Uni vers SH 0-15 mouth. ity of OIL/OMEGA-3 09:33: [place] /OSMIN (CO 33 Medical [id number] Branch OIL-OMEGA 3-E ORAL) SITagliptin 2020-10 Yes 100mg Take 100 U nivers (JANUVIA) 0-15 mg by ity of 100 mg 09:33: mouth [place] tablet 33 daily. Medical Branch liraglutide 2020-10 Yes 1.8mg inject 1.8 [facility] (VICTOZA 0-15 mg under ity of 3-АЛЕКСАНДР SC) 09:33: the skin [place] 33 daily. Medical Branch tamsulosin 2020-10 Yes Take by [facility] ers 0.4 mg 24 0-15 mouth ity of hr capsule 09:33: daily. [address] Branch multivitami 2020-10 Yes 1{tbl} Take 1 Un todd n tablet 0-15 tablet by ity of 09:33: mouth [place] 33 daily. Medical Branch CALCIUM-MAG 2020-10 Yes Take by Uni vers NESIUM-ZINC 0-15 mouth ity of ORAL 09:33: daily. [address] Branch metFORMIN 2020-10 Yes 1000mg Take 1,000 [facility] 1,000 mg 0-15 mg by ity of tablet 09:33: mouth 2 [place] [address] (two) Medical times [place] daily with meals. glimepiride 2020-10 Yes 4mg Take 4 mg U nivers 4 mg tablet 0-15 by mouth 2 it y of 09:33: (two) [place] 33 times Medical daily. Branch UBIDECAR/FI 2020-10 Yes Take by Uni vers SH 0-15 mouth. ity of OIL/OMEGA-3 09:33: [place] /OSMIN (CO 33 Medical [id number] Branch OIL-OMEGA 3-E ORAL) SITagliptin 2020-10 Yes 100mg Take 100 U nivers (JANUVIA) 0-15 mg by ity of 100 mg 09:33: mouth [place] tablet 33 daily. Medical Branch liraglutide 2020-10 Yes 1.8mg inject 1.8 [facility] (VICTOZA 0-15 mg under ity of 3-АЛЕКСАНДР SC) 09:33: the [place] 33 daily. Medical Branch tamsulosin 2020-10 Yes Take by Univ ers 0.4 mg 24 0-15 mouth ity of hr capsule 09:33: daily. [place] [address] Medical Branch multivitami 2020-10 Yes 1{tbl} Take 1 Un todd n tablet 0-15 tablet by ity of 09:33: mouth [place] 33 daily. Medical Branch CALCIUM-MAG 2020-10 Yes Take by Uni vers NESIUM-ZINC 0-15 mouth ity of ORAL 09:33: daily. [place] [address] Medical Branch metFORMIN 2020-10 Yes 1000mg Take 1,000 [facility] 1,000 mg 0-15 mg by ity of tablet 09:33: mouth 2 [place] [address] (two) Medical times Branch daily with meals. glimepiride 2020-10 Yes 4mg Take 4 mg U nivers 4 mg tablet 0-15 by mouth 2 it y of 09:33: (two) [place] [address] times Medical daily. Branch UBIDECAR/FI 2020-10 Yes Take by Uni vers SH 0-15 mouth. ity of OIL/OMEGA-3 09:33: [place] /OSMIN ([id number]-E ORAL) SITagliptin 2020-10 Yes 100mg Take 100 U nivers (JANUVIA) 0-15 mg by ity of 100 mg 09:33: mouth [place] tablet 33 daily. Medical Branch liraglutide 2020-10 Yes 1.8mg inject 1.8 [facility] (VICTOZA 0-15 mg under ity of 3-АЛЕКСАНДР SC) 09:33: the [place] 33 daily. Medical Branch tamsulosin 2020-10 Yes Take by Univ ers 0.4 mg 24 0-15 mouth ity of hr capsule 09:33: daily. [place] [address] Medical Branch multivitami 2020-10 Yes 1{tbl} Take 1 Un todd n tablet 0-15 tablet by ity of 09:33: mouth [place] 33 daily. Medical Branch CALCIUM-MAG 2020-10 Yes Take by Uni vers NESIUM-ZINC 0-15 mouth ity of ORAL 09:33: daily. [place] [address] Medical Branch metFORMIN 2020-10 Yes 1000mg Take 1,000 [facility] 1,000 mg 0-15 mg by ity of tablet 09:33: mouth 2 [place] [address] (two) Medical times [place] daily with meals. glimepiride 2020-10 Yes 4mg Take 4 mg U nivers 4 mg tablet 0-15 by mouth 2 it y of 09:33: (two) [place] 33 times Medical daily. Branch UBIDECAR/FI 2020-10 Yes Take by Uni vers SH 0-15 mouth. ity of OIL/OMEGA-3 09:33: [place] /OSMIN ([facility] Medical [id number] Branch OIL-OMEGA 3-E ORAL) SITagliptin 2020-10 Yes 100mg Take 100 U nivers (JANUVIA) 0-15 mg by ity of 100 mg 09:33: mouth [place] tablet 33 daily. Medical Branch liraglutide 2020-10 Yes 1.8mg inject 1.8 Univers (VICTOZA 0-15 mg under ity of 3-АЛКЕСАНДР [place]) 09:33: [place] daily. [facility] tamsulosin 2020-10 Yes Take by [facility] ers 0.4 mg 24 0-15 mouth ity of hr capsule 09:33: daily. [place] [address] Medical Branch multivitami 2020-10 Yes 1{tbl} Take 1 Un todd n tablet 0-15 tablet by ity of 09:33: mouth [place] 33 daily. Medical Branch CALCIUM-MAG 2020-10 Yes Take by Uni vers NESIUM-ZINC 0-15 mouth ity of ORAL 09:33: daily. [place] [address] Medical Branch metFORMIN 2020-10 Yes 1000mg Take 1,000 Univers 1,000 mg 0-15 mg by ity of tablet 09:33: mouth 2 [place] [address] (two) Medical times [place] daily with meals. glimepiride 2020-10 Yes 4mg Take 4 mg U nivers 4 mg tablet 0-15 by mouth 2 it y of 09:33: (two) [place] 33 times Medical daily. Branch UBIDECAR/FI 2020-10 Yes Take by Un todd SH 0-15 mouth. ity of OIL/OMEGA-3 09:33: [place] /OSMIN ([facility] 33 [facility] [id number] [place] OIL-OMEGA 3-E ORAL) SITagliptin 2020-10 Yes 100mg Take 100 U nivers (JANUVIA) 0-15 mg by ity of 100 mg 09:33: mouth [place] tablet 33 daily. Medical Branch liraglutide 2020-10 Yes 1.8mg inject 1.8 [facility] (VICTOZA 0-15 mg under ity of 3-АЛЕКСАНДР SC) 09:33: [place] daily. [facility] tamsulosin 2020-10 Yes Take by Univ ers 0.4 mg 24 0-15 mouth ity of hr capsule 09:33: daily. [place] [address] Medical Branch multivitami 2020-10 Yes 1{tbl} Take 1 Un todd n tablet 0-15 tablet by ity of 09:33: mouth [place] 33 daily. Medical Branch CALCIUM-MAG 2020-10 Yes Take by Uni vers NESIUM-ZINC 0-15 mouth ity of ORAL 09:33: daily. [place] [address] Medical Branch metFORMIN 2020-10 Yes 1000mg Take 1,000 [facility] 1,000 mg 0-15 mg by ity of tablet 09:33: mouth 2 [place] [address] (two) Medical times Branch daily with meals. glimepiride 2020-10 Yes 4mg Take 4 mg U nivers 4 mg tablet 0-15 by mouth 2 it y of 09:33: (two) [place] [address] times Medical daily. Branch UBIDECAR/FI 2020-10 Yes Take by Uni vers SH 0-15 mouth. ity of OIL/OMEGA-3 09:33: [place] /OSMIN ([address] [id number]-E ORAL[facility] SITagliptin 2020-10 Yes 100mg Take 100 U nivers (JANUVIA) 0-15 mg by ity of 100 mg 09:33: mouth [place] tablet 33 daily. Medical Branch liraglutide 2020-10 Yes 1.8mg inject 1.8 [facility] (VICTOZA 0-15 mg under ity of 3-АЛЕКСАНДР SC) 09:33: [place] 33 daily. [facility] tamsulosin 2020-10 Yes Take by Univ ers 0.4 mg 24 0-15 mouth ity of hr capsule 09:33: daily. [place] [address] Medical Branch multivitami 2020-10 Yes 1{tbl} Take 1 Un todd n tablet 0-15 tablet by ity of 09:33: mouth [place] 33 daily. Medical Branch CALCIUM-MAG 2020-10 Yes Take by Uni vers NESIUM-ZINC 0-15 mouth ity of ORAL 09:33: daily. [place] [address] Medical Branch metFORMIN 2020-10 Yes 1000mg Take 1,000 [facility] 1,000 mg 0-15 mg by ity of tablet 09:33: mouth 2 [place] [address] (two) Medical times [place] daily with meals. glimepiride 2020-10 Yes 4mg Take 4 mg U nivers 4 mg tablet 0-15 by mouth 2 it y of 09:33: (two) [place] 33 times Medical daily. Branch UBIDECAR/FI 2020-10 Yes Take by Uni vers SH 0-15 mouth. ity of OIL/OMEGA-3 09:33: [place] /OSMIN (NH 33 Medical [id number] [place] OIL-OMEGA 3-E ORAL) SITagliptin 2020-10 Yes 100mg Take 100 U nivers (JANUVIA) 0-15 mg by ity of 100 mg 09:33: mouth [place] tablet 33 daily. Medical Branch liraglutide 2020-10 Yes 1.8mg inject 1.8 [facility] (VICTOZA 0-15 mg under ity of 3-АЛЕКСАНДР SC) 09:33: [place] 33 daily. [facility] tamsulosin 2020-10 Yes Take by [facility] ers 0.4 mg 24 0-15 mouth ity of hr capsule 09:33: daily. [place] [address] Medical Branch multivitami 2020-10 Yes 1{tbl} Take 1 Un todd n tablet 0-15 tablet by ity of 09:33: mouth [place] 33 daily. Medical Branch CALCIUM-MAG 2020-10 Yes Take by Uni vers NESIUM-ZINC 0-15 mouth ity of ORAL 09:33: daily. [place] [address] Medical Branch metFORMIN 2020-10 Yes 1000mg Take 1,000 Univers 1,000 mg 0-15 mg by ity of tablet 09:33: mouth 2 [place] [address] (two) Medical [facility] daily with meals. glimepiride 2020-10 Yes 4mg Take 4 mg U nivers 4 mg tablet 0-15 by mouth 2 it y of 09:33: (two) [place] 33 times Medical daily. Branch UBIDECAR/FI 2020-10 Yes Take by Uni vers SH 0-15 mouth. ity of OIL/OMEGA-3 09:33: [place] /OSMIN (CO 33 Medical [id number] Branch OIL-OMEGA 3-E ORAL) SITagliptin 2020-10 Yes 100mg Take 100 U nivers (JANUVIA) 0-15 mg by ity of 100 mg 09:33: mouth [place] tablet 33 daily. Medical Branch liraglutide 2020-10 Yes 1.8mg inject 1.8 [facility] (VICTOZA 0-15 mg under ity of 3-АЛЕКСАНДР SC) 09:33: [place] 33 daily. Medical Branch tamsulosin 2020-10 Yes Take by [facility] ers 0.4 mg 24 0-15 mouth ity of hr capsule 09:33: daily. Medical Branch multivitami 2020-10 Yes 1{tbl} Take 1 Un todd n tablet 0-15 tablet by ity of 09:33: mouth [place] 33 daily. Medical Branch CALCIUM-MAG 2020-10 Yes Take by Uni vers NESIUM-ZINC 0-15 mouth ity of ORAL 09:33: daily. [place] [address] Medical Branch atorvastati Yes [id number] 80mg Take 1 Univers n 80 mg 9-07 tablet by ity of tablet 00:00: mouth at [place] 00 bedtime. Medical Branch lisinopriL Yes [id number] 40mg Take 1 [facility] 40 mg 9-07 tablet by ity of tablet 00:00: mouth [place] 00 daily. Medical Branch atorvastati Yes [id number] 80mg Take 1 Univers n 80 mg 9-07 tablet by ity of tablet 00:00: mouth at [place] 00 bedtime. Medical Branch lisinopriL Yes [id number] 40mg Take 1 [facility] 40 mg 9-07 tablet by ity of tablet 00:00: mouth [place] 00 daily. Medical Branch atorvastati Yes [id number] 80mg Take 1 Univers n 80 mg 9-07 tablet by ity of tablet 00:00: mouth at [place] 00 bedtime. Medical Branch lisinopriL Yes [id number] 40mg Take 1 [facility] 40 mg 9-07 tablet by ity of tablet 00:00: mouth [place] 00 daily. Medical Branch atorvastati Yes [id number] 80mg Take 1 Univers n 80 mg 9-07 tablet by ity of tablet 00:00: mouth at [place] 00 bedtime. Medical Branch lisinopriL 0 Yes [id number] 40mg Take 1 Univers 40 mg 9-07 tablet by ity of tablet 00:00: mouth [place] 00 daily. Medical Branch atorvastati 0 Yes [id number] 80mg Take 1 Univers n 80 mg 9-07 tablet by ity of tablet 00:00: mouth at [place] 00 bedtime. Medical Branch atorvastati 0 Yes [id number] 80mg Take 1 Univers n 80 mg 9-07 tablet by ity of tablet 00:00: mouth at [place] 00 bedtime. Medical Branch atorvastati Yes [id number] 80mg Take 1 [facility] n 80 mg 9-07 tablet by ity of tablet 00:00: mouth at [place] 00 bedtime. Medical Branch atorvastati 0 Yes [id number] 80mg Take 1 [facility] n 80 mg 9-07 tablet by ity of tablet 00:00: mouth at [place] 00 bedtime. Medical Branch atorvastati 0 Yes [id number] 80mg Take 1 Univers n 80 mg 9-07 tablet by ity of tablet 00:00: mouth at [place] 00 bedtime. Medical Branch atorvastati 0 Yes [id number] 80mg Take 1 Univers n 80 mg 9-07 tablet by ity of tablet 00:00: mouth at [place] 00 bedtime. Medical Branch atorvastati 0 Yes [id number] 80mg Take 1 Univers n 80 mg 9-07 tablet by ity of tablet 00:00: mouth at [place] 00 bedtime. Medical Branch atorvastati 0 Yes [id number] 80mg Take 1 Univers n 80 mg 9-07 tablet by ity of tablet 00:00: mouth at [place] 00 bedtime. Medical Branch atorvastati 0 Yes [id number] 80mg Take 1 Univers n 80 mg 9-07 tablet by ity of tablet 00:00: mouth at [place] 00 bedtime. Medical Branch atorvastati 0 Yes [id number] 80mg Take 1 Univers n 80 mg 9-07 tablet by ity of tablet 00:00: mouth at [place] 00 bedtime. Medical Branch atorvastati Yes [id number] 80mg Take 1 Univers n 80 mg 9-07 tablet by ity of tablet 00:00: mouth at [place] 00 bedtime. Medical Branch atorvastati Yes [id number] 80mg Take 1 Univers n 80 mg 9-07 tablet by ity of tablet 00:00: mouth at [place] 00 bedtime. Medical Branch Lisinopril Yes 40mg Take 40 mg K elsey 40 MG oral 9-07 by mouth [place] Tablet 00:00: daily 00 Atorvastati 0 Yes 1{tbl} Take 1 [place] Calcium 9-07 tablet by [place] 80 MG oral 00:00: mouth [place] 00 daily Lisinopril Yes 40mg Take 40 mg K elsey 40 MG oral 9-07 by mouth [place] Tablet 00:00: daily 00 Atorvastati 0 Yes 1{tbl} Take 1 [place] Calcium 9-07 tablet by [place] [facility] 80 MG oral 00:00: mouth [place] 00 daily lisinopriL 2021- No [id number] 40mg Take 1 Univers 40 mg 9- 06-20 tablet by ity of tablet 00:00: 00:00 mouth [place] 00 :00 daily. Medical Branch furosemide 2021- No 20mg Take 1 Univ ers 20 mg 04-18- tablet by ity of tablet 00:00: 00:00 mouth [place] 00 :00 daily. Medical Branch One Touch One Touch No BID One Touch test strips test strips 6-23 test test strips test strips 00:00: strips 00 test strips One Touch One Touch 0 No One Touch Glucose Glucose 6-23 Glucose Monitor N/S Monitor N/S 00:00: Monitor 00 N/S One Touch One Touch 0 No BID One Touch test strips test strips 6-23 test test strips test strips 00:00: strips 00 test strips One Touch One Touch 0 No One Touch Glucose Glucose 6-23 Glucose Monitor N/S Monitor N/S 00:00: Monitor 00 N/S One Touch One Touch 0 No BID One Touch test strips test strips 6-23 test test strips test strips 00:00: strips 00 test strips One Touch One Touch 0 No BID One Touch test strips test strips 6-23 test test strips test strips 00:00: strips 00 test strips One Touch One Touch 2020-0 No One Touch Glucose Glucose 6-23 Glucose Monitor N/S Monitor N/S 00:00: Monitor 00 N/S One Touch One Touch 2020-0 No One Touch Glucose Glucose 6-23 Glucose Monitor N/S Monitor N/S 00:00: Monitor 00 N/S One Touch One Touch 2020-0 No BID One Touch test strips test strips 6-23 test test strips test strips 00:00: strips 00 test strips One Touch One Touch 2020-0 No One Touch Glucose Glucose 6-23 Glucose Monitor N/S Monitor N/S 00:00: Monitor 00 N/S One Touch One Touch 2020-0 No BID One Touch test strips test strips 6-23 test test strips test strips 00:00: strips 00 test strips One Touch One Touch 2020-0 No One Touch Glucose Glucose 6-23 Glucose Monitor N/S Monitor N/S 00:00: Monitor 00 N/S One Touch One Touch 0 No BID One Touch test strips test strips 6-23 test test strips test strips 00:00: strips 00 test strips One Touch One Touch 2020-0 No One Touch Glucose Glucose 6-23 Glucose Monitor N/S Monitor N/S 00:00: Monitor 00 N/S One Touch One Touch 0 No BID One Touch test strips test strips 6-23 test test strips test strips 00:00: strips 00 test strips One Touch One Touch 2020-0 No One Touch Glucose Glucose 6-23 Glucose Monitor N/S Monitor N/S 00:00: Monitor 00 N/S One Touch One Touch 2020-0 No BID One Touch test strips test strips 6-23 test test strips test strips 00:00: strips 00 test strips One Touch One Touch 2020-0 No One Touch Glucose Glucose 6-23 Glucose Monitor N/S Monitor N/S 00:00: Monitor 00 N/S One Touch One Touch 2020-0 No BID One Touch test strips test strips 6-23 test test strips test strips 00:00: strips 00 test strips One Touch One Touch 2020-0 No One Touch Glucose Glucose 6-23 Glucose Monitor N/S Monitor N/S 00:00: Monitor 00 N/S One Touch One Touch 2020-0 No BID One Touch test strips test strips 6-23 test test strips test strips 00:00: strips 00 test strips One Touch One Touch 2020-0 No BID One Touch test strips test strips 6-23 test test strips test strips 00:00: strips 00 test strips One Touch One Touch 2020-0 No One Touch Glucose Glucose 6-23 Glucose Monitor N/S Monitor N/S 00:00: Monitor 00 N/S One Touch One Touch 2020-0 No BID One Touch test strips test strips 6-23 test test strips test strips 00:00: strips 00 test strips One Touch One Touch 2020-0 No One Touch Glucose Glucose 6-23 Glucose Monitor N/S Monitor N/S 00:00: Monitor 00 N/S One Touch One Touch 2020-0 No One Touch Glucose Glucose 6-23 Glucose Monitor N/S Monitor N/S 00:00: Monitor 00 N/S One Touch One Touch 2020-0 No BID One Touch test strips test strips 6-23 test test strips test strips 00:00: strips 00 test strips One Touch One Touch 2020-0 No One Touch Glucose Glucose 6-23 Glucose Monitor N/S Monitor N/S 00:00: Monitor 00 N/S One Touch One Touch 2020-0 No BID One Touch test strips test strips 6-23 test test strips test strips 00:00: strips 00 test strips One Touch One Touch 2020-0 No BID One Touch test strips test strips 6-23 test test strips test strips 00:00: strips 00 test strips One Touch One Touch 2020-0 No One Touch Glucose Glucose 6-23 Glucose Monitor N/S Monitor N/S 00:00: Monitor 00 N/S One Touch One Touch 2020-0 No BID One Touch test strips test strips 6-23 test test strips test strips 00:00: strips 00 test strips One Touch One Touch 2020-0 No One Touch Glucose Glucose 6-23 Glucose Monitor N/S Monitor N/S 00:00: Monitor 00 N/S One Touch One Touch 2020-0 No BID One Touch test strips test strips 6-23 test test strips test strips 00:00: strips 00 test strips One Touch One Touch 2020-0 No One Touch Glucose Glucose 6-23 Glucose Monitor N/S Monitor N/S 00:00: Monitor 00 N/S One Touch One Touch 2020-0 No BID One Touch test strips test strips 6-23 test test strips test strips 00:00: strips 00 test strips One Touch One Touch 2020-0 No One Touch Glucose Glucose 6-23 Glucose Monitor N/S Monitor N/S 00:00: Monitor 00 N/S One Touch One Touch 2020-0 No BID One Touch test strips test strips 6-23 test test strips test strips 00:00: strips 00 test strips One Touch One Touch 2020-0 No One Touch Glucose Glucose 6-23 Glucose Monitor N/S Monitor N/S 00:00: Monitor 00 N/S One Touch One Touch 2020-0 No One Touch Glucose Glucose 6-23 Glucose Monitor N/S Monitor N/S 00:00: Monitor 00 N/S One Touch One Touch 2020-0 No BID One Touch test strips test strips 6-23 test test strips test strips 00:00: strips 00 test strips One Touch One Touch 2020-0 No One Touch Glucose Glucose 6-23 Glucose Monitor N/S Monitor N/S 00:00: Monitor 00 N/S One Touch One Touch 2020-0 No BID One Touch test strips test strips 6-23 test test strips test strips 00:00: strips 00 test strips One Touch One Touch 2020-0 No One Touch Glucose Glucose 6-23 Glucose Monitor N/S Monitor N/S 00:00: Monitor 00 N/S one touch one touch 2020-0 2- No BID one touch lancets 33G lancets 33G 6-23 03-20 lancets 00:00: 00:00 33G 00 :00 one touch one touch 2020-0 2- No BID one touch lancets 33G lancets 33G 6-23 03-20 lancets 00:00: 00:00 33G 00 :00 one touch one touch 1-0 2022- No BID one touch lancets 33G lancets 33G 6-23 03-20 lancets 00:00: 00:00 33G 00 :00 one touch one touch 1-0 2022- No BID one touch lancets 33G lancets 33G 6-23 03-20 lancets 00:00: 00:00 33G 00 :00 one touch one touch 2020-0 2- No BID one touch lancets 33G lancets 33G 6-23 03-20 lancets 00:00: 00:00 33G 00 :00 one touch one touch 0 2021- No BID one touch lancets 33G lancets 33G 6-23 03-20 lancets 00:00: 00:00 33G 00 :00 one touch one touch 2021- No BID one touch lancets 33G lancets 33G 6-23 03-20 lancets 00:00: 00:00 33G 00 :00 one touch one touch 0 2021- No BID one touch lancets 33G lancets 33G 6-23 03-20 lancets 00:00: 00:00 33G 00 :00 one touch one touch 0 2021- No BID one touch lancets 33G lancets 33G 6-23 03-20 lancets 00:00: 00:00 33G 00 :00 isosorbide 0 Yes [id number] 30mg Take 1 U nivers mononitrate 4-14 tablet by ity of 30 mg 24 hr 00:00: mouth [place] tablet 00 daily. Medical Branch carvediloL Yes [id number] 3.125mg Take 1 [facility] 3.125 mg 4-14 tablet by ity of tablet 00:00: mouth 2 [place] 00 (two) Medical times Branch daily with meals. isosorbide 2020-0 Yes [id number] 30mg Take 1 U nivers mononitrate 4-14 tablet by ity of 30 mg 24 hr 00:00: mouth [place] tablet 00 daily. Medical Branch carvediloL 0 Yes [id number] 3.125mg Take 1 Univers 3.125 mg 4-14 tablet by ity of tablet 00:00: mouth 2 [place] 00 (two) Medical times Branch daily with meals. isosorbide 2020-0 Yes [id number] 30mg Take 1 U nivers mononitrate 4-14 tablet by ity of 30 mg 24 hr 00:00: mouth [place] tablet 00 daily. Medical Branch carvediloL 0 Yes [id number] 3.125mg Take 1 [facility] 3.125 mg 4-14 tablet by ity of tablet 00:00: mouth 2 [place] 00 (two) Medical times Branch daily with meals. isosorbide 2020-0 Yes [id number] 30mg Take 1 U nivers mononitrate 4-14 tablet by ity of 30 mg 24 hr 00:00: mouth [place] tablet 00 daily. Medical Branch carvediloL 2020-0 Yes [id number] 3.125mg Take 1 [facility] 3.125 mg 4-14 tablet by ity of tablet 00:00: mouth 2 [place] 00 (two) Medical times Branch daily with meals. isosorbide 2020-0 Yes [id number] 30mg Take 1 U nivers mononitrate 4-14 tablet by ity of 30 mg 24 hr 00:00: mouth [place] tablet 00 daily. Medical Branch isosorbide 2020-0 Yes [id number] 30mg Take 1 U nivers mononitrate 4-14 tablet by ity of 30 mg 24 hr 00:00: mouth [place] tablet 00 daily. Medical Branch isosorbide 2020-0 Yes [id number] 30mg Take 1 U nivers mononitrate 4-14 tablet by ity of 30 mg 24 hr 00:00: mouth [place] tablet 00 daily. Medical Branch isosorbide 2020-0 Yes [id number] 30mg Take 1 U nivers mononitrate 4-14 tablet by ity of 30 mg 24 hr 00:00: mouth [place] tablet 00 daily. Medical Branch isosorbide 2020-0 Yes [id number] 30mg Take 1 U nivers mononitrate 4-14 tablet by ity of 30 mg 24 hr 00:00: mouth [place] tablet 00 daily. Medical Branch isosorbide 2020-0 Yes [id number] 30mg Take 1 U nivers mononitrate 4-14 tablet by ity of 30 mg 24 hr 00:00: mouth [place] tablet 00 daily. Medical Branch isosorbide 2020-0 Yes [id number] 30mg Take 1 U nivers mononitrate 4-14 tablet by ity of 30 mg 24 hr 00:00: mouth [place] tablet 00 daily. Medical Branch isosorbide 2020-0 Yes [id number] 30mg Take 1 U nivers mononitrate 4-14 tablet by ity of 30 mg 24 hr 00:00: mouth [place] tablet 00 daily. Medical Branch isosorbide 2020-0 Yes [id number] 30mg Take 1 U nivers mononitrate 4-14 tablet by ity of 30 mg 24 hr 00:00: mouth [place] tablet 00 daily. Medical Branch isosorbide 2020-0 Yes [id number] 30mg Take 1 U nivers mononitrate 4-14 tablet by ity of 30 mg 24 hr 00:00: mouth [place] tablet 00 daily. Medical Branch isosorbide 2020-0 Yes [id number] 30mg Take 1 U nivers mononitrate 4-14 tablet by ity of 30 mg 24 hr 00:00: mouth [place] tablet 00 daily. Medical Branch isosorbide 2020-0 Yes [id number] 30mg Take 1 U nivers mononitrate 4-14 tablet by ity of 30 mg 24 hr 00:00: mouth [place] tablet 00 daily. Medical Branch carvediloL 2020-0 2022- No [id number] 3.125mg Take 1 Univers 3.125 mg 4-14 06-20 tablet by ity o f tablet 00:00: 00:00 mouth 2 [place] 00 :00 (two) Medical times Branch daily with meals. Tresiba Tresiba 2020-0 Yes Benjamín Inject 10 Common FlexTouch FlexTouch 9-11 Gabriel units Spi rit 00:00: - [facility] 00 [facility] clopidogreL 2020-0 Yes [id number] 75mg Take 1 Univers 75 mg 8-06 tablet by ity of tablet 00:00: mouth [place] 00 daily. Medical Branch clopidogreL 2020-0 Yes [id number] 75mg Take 1 [facility] 75 mg 8-06 tablet by ity of tablet 00:00: mouth [place] 00 daily. Medical Branch clopidogreL 2020-0 Yes [id number] 75mg Take 1 [facility] 75 mg 8-06 tablet by ity of tablet 00:00: mouth [place] 00 daily. Medical Branch clopidogreL 2020-0 Yes [id number] 75mg Take 1 [facility] 75 mg 8-06 tablet by ity of tablet 00:00: mouth [place] 00 daily. Medical Branch clopidogreL 2020-0 Yes [id number] 75mg Take 1 [facility] 75 mg 8-06 tablet by ity of tablet 00:00: mouth [place] 00 daily. Medical Branch clopidogreL 2020-0 Yes [id number] 75mg Take 1 [facility] 75 mg 8-06 tablet by ity of tablet 00:00: mouth [place] 00 daily. Medical Branch clopidogreL 2020-0 Yes [id number] 75mg Take 1 [facility] 75 mg 8-06 tablet by ity of tablet 00:00: mouth [place] 00 daily. Medical Branch clopidogreL 2020-0 Yes [id number] 75mg Take 1 [facility] 75 mg 8-06 tablet by ity of tablet 00:00: mouth [place] 00 daily. Medical Branch clopidogreL 2020-0 Yes [id number] 75mg Take 1 [facility] 75 mg 8-06 tablet by ity of tablet 00:00: mouth [place] 00 daily. Medical Branch clopidogreL 2020-0 Yes [id number] 75mg Take 1 [facility] 75 mg 8-06 tablet by ity of tablet 00:00: mouth [place] 00 daily. Medical Branch clopidogreL 2020-0 Yes [id number] 75mg Take 1 [facility] 75 mg 8-06 tablet by ity of tablet 00:00: mouth [place] 00 daily. Medical Branch clopidogreL 2020-0 Yes [id number] 75mg Take 1 [facility] 75 mg 8-06 tablet by ity of tablet 00:00: mouth [place] 00 daily. Medical Branch clopidogreL 2020-0 Yes [id number] 75mg Take 1 [facility] 75 mg 8-06 tablet by ity of tablet 00:00: mouth [place] 00 daily. Medical Branch clopidogreL 2020-0 Yes [id number] 75mg Take 1 [facility] 75 mg 8-06 tablet by ity of tablet 00:00: mouth [place] 00 daily. Medical Branch clopidogreL 2020-0 Yes [id number] 75mg Take 1 [facility] 75 mg 8-06 tablet by ity of tablet 00:00: mouth [place] 00 daily. Medical Branch clopidogreL 2020-0 Yes [id number] 75mg Take 1 [facility] 75 mg 8-06 tablet by ity of tablet 00:00: mouth [place] 00 daily. [facility] Branch fenofibrate 2018-10 Yes [id number] 145mg Take 1 Univers 145 mg 2-12 tablet by ity of tablet 00:00: mouth [place] 00 daily. [facility] Branch fenofibrate 2018-10 Yes [id number] 145mg Take 1 Univers 145 mg 2-12 tablet by ity of tablet 00:00: mouth [place] 00 daily. [facility] Branch fenofibrate 2018-10 Yes [id number] 145mg Take 1 Univers 145 mg 2-12 tablet by ity of tablet 00:00: mouth [place] 00 daily. [facility] Branch fenofibrate 2018-10 Yes [id number] 145mg Take 1 Univers 145 mg 2-12 tablet by ity of tablet 00:00: mouth [place] 00 daily. [facility] Branch fenofibrate 2018-10 Yes [id number] 145mg Take 1 Univers 145 mg 2-12 tablet by ity of tablet 00:00: mouth [place] 00 daily. [facility] Branch fenofibrate 2018-10 Yes [id number] 145mg Take 1 Univers 145 mg 2-12 tablet by ity of tablet 00:00: mouth [place] 00 daily. Medical Branch fenofibrate 2018-10 Yes [id number] 145mg Take 1 [facility] 145 mg 2-12 tablet by ity of tablet 00:00: mouth [place] 00 daily. [facility] Branch fenofibrate 2018-10 Yes [id number] 145mg Take 1 Univers 145 mg 2-12 tablet by ity of tablet 00:00: mouth [place] 00 daily. Medical Branch fenofibrate 2018-10 Yes [id number] 145mg Take 1 [facility] 145 mg 2-12 tablet by ity of tablet 00:00: mouth [place] 00 daily. [facility] Branch fenofibrate 2018-10 Yes [id number] 145mg Take 1 Univers 145 mg 2-12 tablet by ity of tablet 00:00: mouth [place] 00 daily. [facility] Branch fenofibrate 2018-10 Yes [id number] 145mg Take 1 Univers 145 mg 2-12 tablet by ity of tablet 00:00: mouth [place] 00 daily. [facility] Branch fenofibrate 2018-10 Yes [id number] 145mg Take 1 Univers 145 mg 2-12 tablet by ity of tablet 00:00: mouth [place] 00 daily. [facility] Branch fenofibrate 2018-10 Yes [id number] 145mg Take 1 Univers 145 mg 2-12 tablet by ity of tablet 00:00: mouth [place] 00 daily. [facility] Branch fenofibrate 2018-10 Yes [id number] 145mg Take 1 Univers 145 mg 2-12 tablet by ity of tablet 00:00: mouth [place] 00 daily. [facility] Branch fenofibrate 2018-10 Yes [id number] 145mg Take 1 Univers 145 mg 2-12 tablet by ity of tablet 00:00: mouth [place] 00 daily. [facility] Branch fenofibrate 2018-10 Yes [id number] 145mg Take 1 Univers 145 mg 2-12 tablet by ity of tablet 00:00: mouth [place] 00 daily. [facility] Branch aspirin 81 2018-10 Yes [id number] 81mg Take 1 U nivers mg EC 1-19 tablet by ity of tablet 00:00: mouth [place] 00 daily. Medical Branch aspirin 81 2018-10 Yes [id number] 81mg Take 1 U nivers mg EC 1-19 tablet by ity of tablet 00:00: mouth [place] 00 daily. Medical Branch aspirin 81 2018-10 Yes [id number] 81mg Take 1 U nivers mg EC 1-19 tablet by ity of tablet 00:00: mouth [place] 00 daily. Medical Branch aspirin 81 2019- Yes [id number] 81mg Take 1 U nivers mg EC 1-19 tablet by ity of tablet 00:00: mouth [place] 00 daily. Medical Branch aspirin 81 2019- Yes [id number] 81mg Take 1 [facility] mg EC 1-19 tablet by [facility] tablet 00:00: mouth [place] 00 daily. [facility] aspirin 81 2019- Yes [id number] 81mg Take 1 [facility] mg EC 1-19 tablet by [facility] of tablet 00:00: mouth [place] 00 daily. [facility] aspirin 81 2019- Yes [id number] 81mg Take 1 [facility] mg EC 1-19 tablet by [facility] of tablet 00:00: mouth [place] 00 daily. [facility] aspirin 81 2019- Yes [id number] 81mg Take 1 [facility] mg EC 1-19 tablet by [facility] of tablet 00:00: mouth [place] 00 daily. [facility] aspirin 81 2019- Yes [id number] 81mg Take 1 [facility] mg EC 1-19 tablet by [facility] of tablet 00:00: mouth [place] 00 daily. [facility] aspirin 81 2019- Yes [id number] 81mg Take 1 [facility] mg EC 1-19 tablet by [facility] of tablet 00:00: mouth [place] 00 daily. [facility] aspirin 81 2019- Yes [id number] 81mg Take 1 [facility] mg EC 1-19 tablet by [facility] of tablet 00:00: mouth [place] 00 daily. [facility] aspirin 81 2019- Yes [id number] 81mg Take 1 [facility] mg EC 1-19 tablet by [facility] of tablet 00:00: mouth [place] 00 daily. [facility] aspirin 81 2019- Yes [id number] 81mg Take 1 [facility] mg EC 1-19 tablet by [facility] of tablet 00:00: mouth [place] 00 daily. [facility] aspirin 81 2019- Yes [id number] 81mg Take 1 [facility] mg EC 1-19 tablet by [facility] of tablet 00:00: mouth [place] 00 daily. [facility] aspirin 81 2019- Yes [id number] 81mg Take 1 [facility] mg EC 1-19 tablet by [facility] of tablet 00:00: mouth [place] 00 daily. [facility] aspirin 81 2019- Yes [id number] 81mg Take 1 [facility] mg EC 1-19 tablet by [facility] of tablet 00:00: mouth [place] 00 daily. [facility] gabapentin 2018-10 Yes 300mg [id number] Take [address] [facility] (NEURONTIN) 1-05 [id number] mg by L u[facility] 300 MG 09:48: 3D mouth 3 Medical capsule 00 (three) Center times daily. liraglutide 2018-10 Yes type 2 1.2mg Inject 1.[address] [facility] 0.6 mg/0.1 1-05 [facility] mg [facility] ([facility] mg/3 09:48: mellitus subcutaneo Medical mL) PnIj 00 usly. [place] topiramate 2018-10 Yes 50mg Q.5D Take [address] [facility] (TOPAMAX) 1-05 by mouth 2 [facility] 50 MG 09:48: (two) Medical tablet 00 times Center daily. atorvastati 2018-10 Yes 40mg QD Take [address] [facility] (LIPITOR) 1-05 by mouth [facility] 40 MG 09:48: daily. Medical tablet 00 [place] lisinopril 2018-10 Yes 5mg QD Take [address] [facility] [address] [facility] (PRINIVIL,Z 1-05 by mouth [facility] ESTRIL) 40 09:48: daily. Medic al MG tablet 00 [place] carvedilol 2018-10 Yes 6.25mg Take 6.[address] [facility] (COREG) 1-05 mg by [facility] 6.[facility] MG 09:48: mouth 2 Medical tablet 00 (two) Center times daily with breakfast and dinner. metFORMIN 2018-10 Yes 1000mg Take 1,[address] [facility] (GLUCOPHAGE 1-05 mg by [facility] ) 1000 MG 09:48: mouth 2 Medic al tablet 00 (two) Center times daily with breakfast and dinner. melatonin 3 2018-10 Yes 5mg Take [address] [facility] mg Tab 1-05 by mouth [facility] tablet 09:48: every Medical 00 night as Center needed. glimepiride 2018-10 Yes 4mg Take [address] [facility] (AMARYL) 4 0-26 tablet (4 [facility] MG tablet 00:00: mg total) Med ical 00 by mouth Center every morning before breakfast. insulin 2018-10 Yes 15U Q.5D Inject 15 [facility] glargine [facility] (LANTUS 00:00: subcutaneo Medi purvi SOLOSTAR 00 usly 2 Center U-100 (two) INSULIN) times 100 unit/mL daily. (3 mL) InPn nitroglycer 2019-[address] 1 [facility] in 0.4 mg 9-25 tablet ity of sublingual 00:00: under the [place] tablet 00 tongue Medical every 5 Branch (five) minutes as needed for Chest pain. nitroglycer 2019-[address] 1 [facility] in 0.4 mg 9-25 tablet ity of sublingual 00:00: under the [place] tablet 00 tongue Medical every 5 Branch (five) minutes as needed for Chest pain. nitroglycer 2019-[address] 1 [facility] vers in 0.4 mg 9-25 tablet ity of sublingual 00:00: under the [place] tablet 00 tongue Medical every 5 Branch (five) minutes as needed for Chest pain. nitroglycer 2019-[address] 1 [facility] vers in 0.4 mg 9-25 tablet ity of sublingual 00:00: under the [place] tablet 00 tongue Medical every 5 Branch (five) minutes as needed for Chest pain. nitroglycer 2019-[address] 1 [facility] vers in 0.4 mg 9-25 tablet ity of sublingual 00:00: under the [place] tablet 00 tongue Medical every 5 Branch (five) minutes as needed for Chest pain. nitroglycer 2019-[address] 1 Uni vers in 0.4 mg 9-25 tablet ity of sublingual 00:00: under the [place] tablet 00 tongue Medical every 5 Branch (five) minutes as needed for Chest pain. nitroglycer 2019-[address] 1 [facility] vers in 0.4 mg 9-25 tablet ity of sublingual 00:00: under the [place] tablet 00 tongue Medical every 5 Branch (five) minutes as needed for Chest pain. nitroglycer 2019-[address] 1 Uni vers in 0.4 mg 9-25 tablet ity of sublingual 00:00: under the [place] tablet 00 tongue Medical every 5 Branch (five) minutes as needed for Chest pain. nitroglycer 2019-[address] 1 Uni vers in 0.4 mg 9-25 tablet ity of sublingual 00:00: under the [place] tablet 00 tongue Medical every 5 Branch (five) minutes as needed for Chest pain. nitroglycer 2019-[address] 1 Uni vers in 0.4 mg 9-25 tablet ity of sublingual 00:00: under the [place] tablet 00 tongue Medical every 5 Branch (five) minutes as needed for Chest pain. nitroglycer 2019-[address] 1 Uni vers in 0.4 mg 9-25 tablet ity of sublingual 00:00: under the [place] tablet 00 tongue Medical every 5 Branch (five) minutes as needed for Chest pain. nitroglycer 2019-[address] 1 Uni vers in 0.4 mg 9-25 tablet ity of sublingual 00:00: under the [place] tablet 00 tongue Medical every 5 Branch (five) minutes as needed for Chest pain. nitroglycer 2019-[address] 1 Uni vers in 0.4 mg 9-25 tablet ity of sublingual 00:00: under the [place] tablet 00 tongue Medical every 5 Branch (five) minutes as needed for Chest pain. nitroglycer 2019-[address] 1 Uni vers in 0.4 mg 9-25 tablet ity of sublingual 00:00: under the [place] tablet 00 tongue Medical every 5 Branch (five) minutes as needed for Chest pain. nitroglycer 2019-[address] 1 Uni vers in 0.4 mg 9-25 tablet ity of sublingual 00:00: under the [place] tablet 00 tongue Medical every 5 Branch (five) minutes as needed for Chest pain. nitroglycer 2019-[address] 1 Uni vers in 0.4 mg 9-25 tablet ity of sublingual 00:00: under the [place] tablet 00 tongue Medical every 5 Branch (five) minutes as needed for Chest pain. Kenalog Kenalog 2019-0 No 40mg [facility] (Triamcinol (Triamcinol 6-19 S pirit one) one) 00:00: - [facility] Kenalog Kenalog 2019-0 No 40mg [facility] (Triamcinol (Triamcinol 6-19 S pirit one) one) 00:00: - [facility] 00 [facility] Kenalog Kenalog 2019-0 No 40mg [facility] (Triamcinol (Triamcinol 6-19 S pirit one) one) 00:00: - [facility] 00 [facility] Norm Zheng 2019-0 No 40mg [facility] (Triamcinol (Triamcinol 6-19 S pirit one) one) 00:00: - [facility] 00 [facility] Norm Zheng 2019-0 No 40mg [facility] (Triamcinol (Triamcinol 6-19 S pirit one) one) 00:00: - [facility] 00 [facility] Norm Zheng 2019-0 No 40mg Common (Triamcinol (Triamcinol 6-19 S pirit one) one) 00:00: - [facility] 00 [facility] Norm Zheng 2019-0 No 40mg Common (Triamcinol (Triamcinol 6-19 S pirit one) one) 00:00: - [facility] 00 [facility] Norm Zheng 2019-0 No 40mg Common (Triamcinol (Triamcinol 6-19 S pirit one) one) 00:00: - [facility] 00 [facility] Norm Zheng 2019-0 No 40mg Common (Triamcinol (Triamcinol 6-19 S pirit one) one) 00:00: - [facility] 00 [facility] Norm Zheng 2019-0 No 40mg Common (Triamcinol (Triamcinol 6-19 S pirit one) one) 00:00: - [facility] 00 [facility] Norm Zheng 2019-0 No 40mg Common (Triamcinol (Triamcinol 6-19 S pirit one) one) 00:00: - [facility] 00 [facility] Norm Zheng 2019-0 No 40mg Common (Triamcinol (Triamcinol 6-19 S pirit one) one) 00:00: - [facility] 00 [facility] Norm Zheng 2019-0 No 40mg Common (Triamcinol (Triamcinol 6-19 S pirit one) one) 00:00: - [facility] 00 [facility] Multivitami Multivitami No Multivitam n Adults - n Adults - in Adults - Spironolact Spironolact No 1{table QD Spironolac one 25 MG one 25 MG t} tone 25 MG Calcium-Mag Calcium-Mag No Calcium-Ma nesium-Zinc nesium-Zinc gnesium-Zi - - nc - Clopidogrel Clopidogrel No Clopidogre Bisulfate Bisulfate l 75 MG 75 MG Bisulfate 75 MG metFORMIN metFORMIN No metFORMIN HCl 1000 MG HCl 1000 MG HCl 1000 MG Carvedilol Carvedilol No Carvedilol 3.125 MG 3.125 MG 3.125 MG Lisinopril Lisinopril No Lisinopril 2.5 MG 2.5 MG 2.5 MG Carvedilol Carvedilol No Carvedilol 3.125 MG 3.125 MG 3.125 MG Furosemide Furosemide No 1{table QD Furosemide 40 MG 40 MG t} 40 MG Lisinopril Lisinopril No 1{table QD Lisinopril 2.5 MG 2.5 MG t} 2.5 MG Tradjenta 5 Tradjenta 5 No 1{table QD Tradjenta MG MG t} 5 MG Isosorbide Isosorbide No 1{table QD Isosorbide Mononitrate Mononitrate t_in_th Mononitrat ER 30 MG ER 30 MG e_morni e ER 30 MG ng} Contour Contour No QD Contour next next next testing testing testing strips n/s strips n/s strips n/s Fenofibrate Fenofibrate No 1{table QD Fenofibrat 145 MG 145 MG t_with_ e 145 MG food} Vascepa 1 Vascepa 1 No Vascepa 1 GM GM GM Magnesium Magnesium No 1{table BID Magnesium Oxide 400 Oxide 400 t_as_ne Oxide 400 MG MG eded} MG Victoza 18 Victoza 18 No QD Victoza 18 MG/3ML MG/3ML MG/3ML Lipitor 80 Lipitor 80 No 1{table QD Lipitor 80 MG MG t} MG Atorvastati Atorvastati No Atorvastat n Calcium n Calcium in Calcium 80 MG 80 MG 80 MG Victoza 18 Victoza 18 No QD Victoza 18 MG/3ML MG/3ML MG/3ML Clopidogrel Clopidogrel No QD Clopidogre Bisulfate Bisulfate l 75 MG 75 MG Bisulfate 75 MG Fenofibrate Fenofibrate No Fenofibrat 145 MG 145 MG e 145 MG Glimepiride Glimepiride No Glimepirid 4 MG 4 MG e 4 MG metFORMIN metFORMIN No 1{table BID metFORMIN HCl 1000 MG HCl 1000 MG t_with_ HCl 1000 meals} MG Coreg 3.125 Coreg 3.125 No BID Coreg MG MG 3.125 MG Isosorbide Isosorbide No Isosorbide Mononitrate Mononitrate Mononitrat ER 30 MG ER 30 MG e ER 30 MG Calcium-Mag Calcium-Mag No Calcium-Ma nesium-Zinc nesium-Zinc gnesium-Zi - - nc - Nitroglycer Nitroglycer No Nitroglyce in 0.4 MG in 0.4 MG rin 0.4 MG Lisinopril Lisinopril No 1{table QD Lisinopril 2.5 MG 2.5 MG t} 2.5 MG Aspir-81 81 Aspir-81 81 No 1{table QD Aspir-81 MG MG t} 81 MG Glimepiride Glimepiride No Glimepirid 4 MG 4 MG e 4 MG Multivitami Multivitami No Multivitam n Adults - n Adults - in Adults - Spironolact Spironolact No 1{table QD Spironolac one 25 MG one 25 MG t} tone 25 MG Calcium-Mag Calcium-Mag No Calcium-Ma nesium-Zinc nesium-Zinc gnesium-Zi - - nc - Clopidogrel Clopidogrel No Clopidogre Bisulfate Bisulfate l 75 MG 75 MG Bisulfate 75 MG metFORMIN metFORMIN No metFORMIN HCl 1000 MG HCl 1000 MG HCl 1000 MG Fenofibrate Fenofibrate No Fenofibrat 145 MG 145 MG e 145 MG Lisinopril Lisinopril No Lisinopril 2.5 MG 2.5 MG 2.5 MG Carvedilol Carvedilol No Carvedilol 3.125 MG 3.125 MG 3.125 MG metFORMIN metFORMIN No metFORMIN HCl 1000 MG HCl 1000 MG HCl 1000 MG Januvia 100 Januvia 100 No Januvia MG MG 100 MG metFORMIN metFORMIN No 1{table BID metFORMIN HCl 1000 MG HCl 1000 MG t_with_ HCl 1000 meals} MG Isosorbide Isosorbide No Isosorbide Mononitrate Mononitrate Mononitrat ER 30 MG ER 30 MG e ER 30 MG Spironolact Spironolact No 1{table QD Spironolac one 25 MG one 25 MG t} tone 25 MG Aspir-81 81 Aspir-81 81 No 1{table QD Aspir-81 MG MG t} 81 MG Tresiba Tresiba No Tresiba FlexTouch FlexTouch FlexTouch 100 UNIT/ML 100 UNIT/ML 100 UNIT/ML Multivitami Multivitami No Multivitam n Adults - n Adults - in Adults - Multivitami Multivitami No Multivitam n Adults - n Adults - in Adults - Clopidogrel Clopidogrel No Clopidogre Bisulfate Bisulfate l 75 MG 75 MG Bisulfate 75 MG Contour Contour No BID Contour next next next testing testing testing strips n/s strips n/s strips n/s Lipitor 80 Lipitor 80 No 1{table QD Lipitor 80 MG MG t} MG Coreg 3.125 Coreg 3.125 No BID Coreg MG MG 3.125 MG Nitroglycer Nitroglycer No Nitroglyce in 0.4 MG in 0.4 MG rin 0.4 MG Carvedilol Carvedilol No Carvedilol 3.125 MG 3.125 MG 3.125 MG Lisinopril Lisinopril No 1{table QD Lisinopril 2.5 MG 2.5 MG t} 2.5 MG Victoza 18 Victoza 18 No QD Victoza 18 MG/3ML MG/3ML MG/3ML Glimepiride Glimepiride No Glimepirid 4 MG 4 MG e 4 MG metFORMIN metFORMIN No 1{table BID metFORMIN HCl 1000 MG HCl 1000 MG t_with_ HCl 1000 meals} MG Fenofibrate Fenofibrate No Fenofibrat 145 MG 145 MG e 145 MG Isosorbide Isosorbide No Isosorbide Mononitrate Mononitrate Mononitrat ER 30 MG ER 30 MG e ER 30 MG Tresiba Tresiba No Tresiba FlexTouch FlexTouch FlexTouch 100 UNIT/ML 100 UNIT/ML 100 UNIT/ML Calcium-Mag Calcium-Mag No Calcium-Ma nesium-Zinc nesium-Zinc gnesium-Zi - - nc - Spironolact Spironolact No 1{table QD Spironolac one 25 MG one 25 MG t} tone 25 MG Aspir-81 81 Aspir-81 81 No 1{table QD Aspir-81 MG MG t} 81 MG metFORMIN metFORMIN No metFORMIN HCl 1000 MG HCl 1000 MG HCl 1000 MG Januvia 100 Januvia 100 No Januvia MG MG 100 MG Nitroglycer Nitroglycer No Nitroglyce in 0.4 MG in 0.4 MG rin 0.4 MG Victoza 18 Victoza 18 No QD Victoza 18 MG/3ML MG/3ML MG/3ML Fenofibrate Fenofibrate No Fenofibrat 145 MG 145 MG e 145 MG Calcium-Mag Calcium-Mag No Calcium-Ma nesium-Zinc nesium-Zinc gnesium-Zi - - nc - metFORMIN metFORMIN No metFORMIN HCl 1000 MG HCl 1000 MG HCl 1000 MG Clopidogrel Clopidogrel No Clopidogre Bisulfate Bisulfate l 75 MG 75 MG Bisulfate 75 MG Isosorbide Isosorbide No Isosorbide Mononitrate Mononitrate Mononitrat ER 30 MG ER 30 MG e ER 30 MG metFORMIN metFORMIN No 1{table BID metFORMIN HCl 1000 MG HCl 1000 MG t_with_ HCl 1000 meals} MG Aspir-81 81 Aspir-81 81 No 1{table QD Aspir-81 MG MG t} 81 MG Januvia 100 Januvia 100 No Januvia MG MG 100 MG Carvedilol Carvedilol No Carvedilol 3.125 MG 3.125 MG 3.125 MG Lisinopril Lisinopril No 1{table QD Lisinopril 2.5 MG 2.5 MG t} 2.5 MG Coreg 3.125 Coreg 3.125 No BID Coreg MG MG 3.125 MG Spironolact Spironolact No 1{table QD Spironolac one 25 MG one 25 MG t} tone 25 MG Tresiba Tresiba No Tresiba FlexTouch FlexTouch FlexTouch 100 UNIT/ML 100 UNIT/ML 100 UNIT/ML Lipitor 80 Lipitor 80 No 1{table QD Lipitor 80 MG MG t} MG Multivitami Multivitami No Multivitam n Adults - n Adults - in Adults - Contour Contour No BID Contour next next next testing testing testing strips n/s strips n/s strips n/s Glimepiride Glimepiride No Glimepirid 4 MG 4 MG e 4 MG Tamsulosin Tamsulosin No Tamsulosin HCl 0.4 MG HCl 0.4 MG HCl 0.4 MG Calcium-Mag Calcium-Mag No Calcium-Ma nesium-Zinc nesium-Zinc gnesium-Zi - - nc - Multivitami Multivitami No Multivitam n Adults - n Adults - in Adults - Clopidogrel Clopidogrel No Clopidogre Bisulfate Bisulfate l 75 MG 75 MG Bisulfate 75 MG Nitroglycer Nitroglycer No Nitroglyce in 0.4 MG in 0.4 MG rin 0.4 MG Victoza 18 Victoza 18 No QD Victoza 18 MG/3ML MG/3ML MG/3ML metFORMIN metFORMIN No metFORMIN HCl 1000 MG HCl 1000 MG HCl 1000 MG Fenofibrate Fenofibrate No Fenofibrat 145 MG 145 MG e 145 MG Vascepa 1 Vascepa 1 No Vascepa 1 GM GM GM Spironolact Spironolact No 1{table QD Spironolac one 25 MG one 25 MG t} tone 25 MG Isosorbide Isosorbide No Isosorbide Mononitrate Mononitrate Mononitrat ER 30 MG ER 30 MG e ER 30 MG Coreg 3.125 Coreg 3.125 No BID Coreg MG MG 3.125 MG Carvedilol Carvedilol No Carvedilol 3.125 MG 3.125 MG 3.125 MG Lipitor 80 Lipitor 80 No 1{table QD Lipitor 80 MG MG t} MG Furosemide Furosemide No 1{table QD Furosemide 40 MG 40 MG t} 40 MG Aspir-81 81 Aspir-81 81 No 1{table QD Aspir-81 MG MG t} 81 MG Lisinopril Lisinopril No 1{table QD Lisinopril 2.5 MG 2.5 MG t} 2.5 MG Contour Contour No QD Contour next next next testing testing testing strips n/s strips n/s strips n/s Glimepiride Glimepiride No Glimepirid 4 MG 4 MG e 4 MG Magnesium Magnesium No 1{table BID Magnesium Oxide 400 Oxide 400 t_as_ne Oxide 400 MG MG eded} MG Lisinopril Lisinopril No 1{table QD Lisinopril 2.5 MG 2.5 MG t} 2.5 MG Isosorbide Isosorbide No 1{table QD Isosorbide Mononitrate Mononitrate t_in_th Mononitrat ER 30 MG ER 30 MG e_morni e ER 30 MG ng} Furosemide Furosemide No 1{table QD Furosemide 40 MG 40 MG t} 40 MG Coreg 3.125 Coreg 3.125 No BID Coreg MG MG 3.125 MG Lipitor 80 Lipitor 80 No 1{table QD Lipitor 80 MG MG t} MG Glimepiride Glimepiride No QD Glimepirid 4 MG 4 MG e 4 MG Fenofibrate Fenofibrate No 1{table QD Fenofibrat 145 MG 145 MG t_with_ e 145 MG food} Carvedilol Carvedilol No Carvedilol 3.125 MG 3.125 MG 3.125 MG Multivitami Multivitami No Multivitam n Adults - n Adults - in Adults - Spironolact Spironolact No 1{table QD Spironolac one 25 MG one 25 MG t} tone 25 MG Fenofibrate Fenofibrate No Fenofibrat 145 MG 145 MG e 145 MG Vascepa 1 Vascepa 1 No Vascepa 1 GM GM GM Nitroglycer Nitroglycer No Nitroglyce in 0.4 MG in 0.4 MG rin 0.4 MG Calcium-Mag Calcium-Mag No Calcium-Ma nesium-Zinc nesium-Zinc gnesium-Zi - - nc - Aspir-81 81 Aspir-81 81 No 1{table QD Aspir-81 MG MG t} 81 MG Clopidogrel Clopidogrel No Clopidogre Bisulfate Bisulfate l 75 MG 75 MG Bisulfate 75 MG metFORMIN metFORMIN No BID metFORMIN HCl 1000 MG HCl 1000 MG HCl 1000 MG Tamsulosin Tamsulosin No Tamsulosin HCl 0.4 MG HCl 0.4 MG HCl 0.4 MG metFORMIN metFORMIN No 1{table BID metFORMIN HCl 1000 MG HCl 1000 MG t_with_ HCl 1000 meals} MG Contour Contour No QD Contour next next next testing testing testing strips n/s strips n/s strips n/s Victoza 18 Victoza 18 No QD Victoza 18 MG/3ML MG/3ML MG/3ML Glimepiride Glimepiride No Glimepirid 4 MG 4 MG e 4 MG Magnesium Magnesium No 1{table BID Magnesium Oxide 400 Oxide 400 t_as_ne Oxide 400 MG MG eded} MG Isosorbide Isosorbide No 1{table QD Isosorbide Mononitrate Mononitrate t_in_th Mononitrat ER 30 MG ER 30 MG e_morni e ER 30 MG ng} Contour Contour No QD Contour next next next testing testing testing strips n/s strips n/s strips n/s Fenofibrate Fenofibrate No 1{table QD Fenofibrat 145 MG 145 MG t_with_ e 145 MG food} Spironolact Spironolact No 1{table QD Spironolac one 25 MG one 25 MG t} tone 25 MG Nitroglycer Nitroglycer No Nitroglyce in 0.4 MG in 0.4 MG rin 0.4 MG Multivitami Multivitami No Multivitam n Adults - n Adults - in Adults - Lisinopril Lisinopril No 1{table QD Lisinopril 2.5 MG 2.5 MG t} 2.5 MG Magnesium Magnesium No 1{table BID Magnesium Oxide 400 Oxide 400 t_as_ne Oxide 400 MG MG eded} MG Aspir-81 81 Aspir-81 81 No 1{table QD Aspir-81 MG MG t} 81 MG Furosemide Furosemide No 1{table QD Furosemide 40 MG 40 MG t} 40 MG Fenofibrate Fenofibrate No Fenofibrat 145 MG 145 MG e 145 MG Lipitor 80 Lipitor 80 No 1{table QD Lipitor 80 MG MG t} MG metFORMIN metFORMIN No BID metFORMIN HCl 1000 MG HCl 1000 MG HCl 1000 MG Tamsulosin Tamsulosin No Tamsulosin HCl 0.4 MG HCl 0.4 MG HCl 0.4 MG Glimepiride Glimepiride No QD Glimepirid 4 MG 4 MG e 4 MG Glimepiride Glimepiride No Glimepirid 4 MG 4 MG e 4 MG Carvedilol Carvedilol No Carvedilol 3.125 MG 3.125 MG 3.125 MG Coreg 3.125 Coreg 3.125 No BID Coreg MG MG 3.125 MG Calcium-Mag Calcium-Mag No Calcium-Ma nesium-Zinc nesium-Zinc gnesium-Zi - - nc - Vascepa 1 Vascepa 1 No Vascepa 1 GM GM GM Clopidogrel Clopidogrel No Clopidogre Bisulfate Bisulfate l 75 MG 75 MG Bisulfate 75 MG metFORMIN metFORMIN No 1{table BID metFORMIN HCl 1000 MG HCl 1000 MG t_with_ HCl 1000 meals} MG Victoza 18 Victoza 18 No QD Victoza 18 MG/3ML MG/3ML MG/3ML Isosorbide Isosorbide No 1{table QD Isosorbide Mononitrate Mononitrate t_in_th Mononitrat ER 30 MG ER 30 MG e_morni e ER 30 MG ng} Magnesium Magnesium No 1{table BID Magnesium Oxide 400 Oxide 400 t_as_ne Oxide 400 MG MG eded} MG Fenofibrate Fenofibrate No 1{table QD Fenofibrat 145 MG 145 MG t_with_ e 145 MG food} Contour Contour No QD Contour next next next testing testing testing strips n/s strips n/s strips n/s Nitroglycer Nitroglycer No Nitroglyce in 0.4 MG in 0.4 MG rin 0.4 MG Lisinopril Lisinopril No 1{table QD Lisinopril 2.5 MG 2.5 MG t} 2.5 MG Multivitami Multivitami No Multivitam n Adults - n Adults - in Adults - Aspir-81 81 Aspir-81 81 No 1{table QD Aspir-81 MG MG t} 81 MG Furosemide Furosemide No 1{table QD Furosemide 40 MG 40 MG t} 40 MG Fenofibrate Fenofibrate No Fenofibrat 145 MG 145 MG e 145 MG Lipitor 80 Lipitor 80 No 1{table QD Lipitor 80 MG MG t} MG metFORMIN metFORMIN No BID metFORMIN HCl 1000 MG HCl 1000 MG HCl 1000 MG Tamsulosin Tamsulosin No Tamsulosin HCl 0.4 MG HCl 0.4 MG HCl 0.4 MG Glimepiride Glimepiride No BID Glimepirid 4 MG 4 MG e 4 MG Spironolact Spironolact No 1{table QD Spironolac one 25 MG one 25 MG t} tone 25 MG Carvedilol Carvedilol No Carvedilol 3.125 MG 3.125 MG 3.125 MG Coreg 3.125 Coreg 3.125 No BID Coreg MG MG 3.125 MG Calcium-Mag Calcium-Mag No Calcium-Ma nesium-Zinc nesium-Zinc gnesium-Zi - - nc - Vascepa 1 Vascepa 1 No Vascepa 1 GM GM GM Clopidogrel Clopidogrel No Clopidogre Bisulfate Bisulfate l 75 MG 75 MG Bisulfate 75 MG metFORMIN metFORMIN No 1{table BID metFORMIN HCl 1000 MG HCl 1000 MG t_with_ HCl 1000 meals} MG Victoza 18 Victoza 18 No QD Victoza 18 MG/3ML MG/3ML MG/3ML Spironolact Spironolact No 1{table QD Spironolac one 25 MG one 25 MG t} tone 25 MG Tamsulosin Tamsulosin No Tamsulosin HCl 0.4 MG HCl 0.4 MG HCl 0.4 MG Magnesium Magnesium No 1{table BID Magnesium Oxide 400 Oxide 400 t_as_ne Oxide 400 MG MG eded} MG Multivitami Multivitami No Multivitam n Adults - n Adults - in Adults - Furosemide Furosemide No 1{table QD Furosemide 40 MG 40 MG t} 40 MG Glimepiride Glimepiride No Glimepirid 4 MG 4 MG e 4 MG Lisinopril Lisinopril No 1{table QD Lisinopril 2.5 MG 2.5 MG t} 2.5 MG Isosorbide Isosorbide No 1{table QD Isosorbide Mononitrate Mononitrate t_in_th Mononitrat ER 30 MG ER 30 MG e_morni e ER 30 MG ng} metFORMIN metFORMIN No 1{table BID metFORMIN HCl 1000 MG HCl 1000 MG t_with_ HCl 1000 meals} MG Fenofibrate Fenofibrate No 1{table QD Fenofibrat 145 MG 145 MG t_with_ e 145 MG food} Victoza 18 Victoza 18 No QD Victoza 18 MG/3ML MG/3ML MG/3ML Nitroglycer Nitroglycer No Nitroglyce in 0.4 MG in 0.4 MG rin 0.4 MG Coreg 3.125 Coreg 3.125 No BID Coreg MG MG 3.125 MG Contour Contour No QD Contour next next next testing testing testing strips n/s strips n/s strips n/s Vascepa 1 Vascepa 1 No Vascepa 1 GM GM GM Clopidogrel Clopidogrel No QD Clopidogre Bisulfate Bisulfate l 75 MG 75 MG Bisulfate 75 MG Lipitor 80 Lipitor 80 No 1{table QD Lipitor 80 MG MG t} MG Aspir-81 81 Aspir-81 81 No 1{table QD Aspir-81 MG MG t} 81 MG Calcium-Mag Calcium-Mag No Calcium-Ma nesium-Zinc nesium-Zinc gnesium-Zi - - nc - Fenofibrate Fenofibrate No Fenofibrat 145 MG 145 MG e 145 MG Glimepiride Glimepiride No BID Glimepirid 4 MG 4 MG e 4 MG Carvedilol Carvedilol No Carvedilol 3.125 MG 3.125 MG 3.125 MG metFORMIN metFORMIN No metFORMIN HCl 1000 MG HCl 1000 MG HCl 1000 MG Vascepa 1 Vascepa 1 No Vascepa 1 GM GM GM Victoza 18 Victoza 18 No QD Victoza 18 MG/3ML MG/3ML MG/3ML Tamsulosin Tamsulosin No Tamsulosin HCl 0.4 MG HCl 0.4 MG HCl 0.4 MG Spironolact Spironolact No 1{table QD Spironolac one 25 MG one 25 MG t} tone 25 MG Multivitami Multivitami No Multivitam n Adults - n Adults - in Adults - Furosemide Furosemide No 1{table QD Furosemide 40 MG 40 MG t} 40 MG Lisinopril Lisinopril No 1{table QD Lisinopril 2.5 MG 2.5 MG t} 2.5 MG Isosorbide Isosorbide No 1{table QD Isosorbide Mononitrate Mononitrate t_in_th Mononitrat ER 30 MG ER 30 MG e_morni e ER 30 MG ng} metFORMIN metFORMIN No 1{table BID metFORMIN HCl 1000 MG HCl 1000 MG t_with_ HCl 1000 meals} MG Fenofibrate Fenofibrate No 1{table QD Fenofibrat 145 MG 145 MG t_with_ e 145 MG food} Glimepiride Glimepiride No Glimepirid 4 MG 4 MG e 4 MG Nitroglycer Nitroglycer No Nitroglyce in 0.4 MG in 0.4 MG rin 0.4 MG Coreg 3.125 Coreg 3.125 No BID Coreg MG MG 3.125 MG Magnesium Magnesium No 1{table BID Magnesium Oxide 400 Oxide 400 t_as_ne Oxide 400 MG MG eded} MG Contour Contour No QD Contour next next next testing testing testing strips n/s strips n/s strips n/s Clopidogrel Clopidogrel No QD Clopidogre Bisulfate Bisulfate l 75 MG 75 MG Bisulfate 75 MG Lipitor 80 Lipitor 80 No 1{table QD Lipitor 80 MG MG t} MG Aspir-81 81 Aspir-81 81 No 1{table QD Aspir-81 MG MG t} 81 MG Calcium-Mag Calcium-Mag No Calcium-Ma nesium-Zinc nesium-Zinc gnesium-Zi - - nc - Fenofibrate Fenofibrate No Fenofibrat 145 MG 145 MG e 145 MG Glimepiride Glimepiride No BID Glimepirid 4 MG 4 MG e 4 MG Carvedilol Carvedilol No Carvedilol 3.125 MG 3.125 MG 3.125 MG metFORMIN metFORMIN No metFORMIN HCl 1000 MG HCl 1000 MG HCl 1000 MG Vascepa 1 Vascepa 1 No Vascepa 1 GM GM GM Victoza 18 Victoza 18 No QD Victoza 18 MG/3ML MG/3ML MG/3ML Tamsulosin Tamsulosin No Tamsulosin HCl 0.4 MG HCl 0.4 MG HCl 0.4 MG Spironolact Spironolact No 1{table QD Spironolac one 25 MG one 25 MG t} tone 25 MG Multivitami Multivitami No Multivitam n Adults - n Adults - in Adults - Furosemide Furosemide No 1{table QD Furosemide 40 MG 40 MG t} 40 MG Lisinopril Lisinopril No 1{table QD Lisinopril 2.5 MG 2.5 MG t} 2.5 MG Isosorbide Isosorbide No 1{table QD Isosorbide Mononitrate Mononitrate t_in_th Mononitrat ER 30 MG ER 30 MG e_morni e ER 30 MG ng} metFORMIN metFORMIN No 1{table BID metFORMIN HCl 1000 MG HCl 1000 MG t_with_ HCl 1000 meals} MG Fenofibrate Fenofibrate No 1{table QD Fenofibrat 145 MG 145 MG t_with_ e 145 MG food} Glimepiride Glimepiride No Glimepirid 4 MG 4 MG e 4 MG Nitroglycer Nitroglycer No Nitroglyce in 0.4 MG in 0.4 MG rin 0.4 MG Coreg 3.125 Coreg 3.125 No BID Coreg MG MG 3.125 MG Magnesium Magnesium No 1{table BID Magnesium Oxide 400 Oxide 400 t_as_ne Oxide 400 MG MG eded} MG Contour Contour No QD Contour next next next testing testing testing strips n/s strips n/s strips n/s Clopidogrel Clopidogrel No QD Clopidogre Bisulfate Bisulfate l 75 MG 75 MG Bisulfate 75 MG Lipitor 80 Lipitor 80 No 1{table QD Lipitor 80 MG MG t} MG Aspir-81 81 Aspir-81 81 No 1{table QD Aspir-81 MG MG t} 81 MG Calcium-Mag Calcium-Mag No Calcium-Ma nesium-Zinc nesium-Zinc gnesium-Zi - - nc - Fenofibrate Fenofibrate No Fenofibrat 145 MG 145 MG e 145 MG Glimepiride Glimepiride No BID Glimepirid 4 MG 4 MG e 4 MG Carvedilol Carvedilol No Carvedilol 3.125 MG 3.125 MG 3.125 MG metFORMIN metFORMIN No metFORMIN HCl 1000 MG HCl 1000 MG HCl 1000 MG metFORMIN metFORMIN No 1{table BID metFORMIN HCl 1000 MG HCl 1000 MG t_with_ HCl 1000 meals} MG Lipitor 80 Lipitor 80 No 1{table QD Lipitor 80 MG MG t} MG Clopidogrel Clopidogrel No QD Clopidogre Bisulfate Bisulfate l 75 MG 75 MG Bisulfate 75 MG metFORMIN metFORMIN No metFORMIN HCl 1000 MG HCl 1000 MG HCl 1000 MG Tamsulosin Tamsulosin No Tamsulosin HCl 0.4 MG HCl 0.4 MG HCl 0.4 MG Coreg 3.125 Coreg 3.125 No BID Coreg MG MG 3.125 MG Victoza 18 Victoza 18 No QD Victoza 18 MG/3ML MG/3ML MG/3ML Fenofibrate Fenofibrate No 1{table QD Fenofibrat 145 MG 145 MG t_with_ e 145 MG food} Isosorbide Isosorbide No 1{table QD Isosorbide Mononitrate Mononitrate t_in_th Mononitrat ER 30 MG ER 30 MG e_morni e ER 30 MG ng} Fenofibrate Fenofibrate No Fenofibrat 145 MG 145 MG e 145 MG Lisinopril Lisinopril No 1{table QD Lisinopril 2.5 MG 2.5 MG t} 2.5 MG Aspir-81 81 Aspir-81 81 No 1{table QD Aspir-81 MG MG t} 81 MG Glimepiride Glimepiride No Glimepirid 4 MG 4 MG e 4 MG Vascepa 1 Vascepa 1 No Vascepa 1 GM GM GM Calcium-Mag Calcium-Mag No Calcium-Ma nesium-Zinc nesium-Zinc gnesium-Zi - - nc - Multivitami Multivitami No Multivitam n Adults - n Adults - in Adults - Carvedilol Carvedilol No Carvedilol 3.125 MG 3.125 MG 3.125 MG Glimepiride Glimepiride No BID Glimepirid 4 MG 4 MG e 4 MG Nitroglycer Nitroglycer No Nitroglyce in 0.4 MG in 0.4 MG rin 0.4 MG Magnesium Magnesium No 1{table BID Magnesium Oxide 400 Oxide 400 t_as_ne Oxide 400 MG MG eded} MG Furosemide Furosemide No 1{table QD Furosemide 40 MG 40 MG t} 40 MG Spironolact Spironolact No 1{table QD Spironolac one 25 MG one 25 MG t} tone 25 MG Contour Contour No QD Contour next next next testing testing testing strips n/s strips n/s strips n/s metFORMIN metFORMIN No metFORMIN HCl 1000 MG HCl 1000 MG HCl 1000 MG Glimepiride Glimepiride No BID Glimepirid 4 MG 4 MG e 4 MG Vascepa 1 Vascepa 1 No Vascepa 1 GM GM GM Nitroglycer Nitroglycer No Nitroglyce in 0.4 MG in 0.4 MG rin 0.4 MG Clopidogrel Clopidogrel No Clopidogre Bisulfate Bisulfate l 75 MG 75 MG Bisulfate 75 MG Aspir-81 81 Aspir-81 81 No 1{table QD Aspir-81 MG MG t} 81 MG Furosemide Furosemide No 1{table QD Furosemide 40 MG 40 MG t} 40 MG Spironolact Spironolact No 1{table QD Spironolac one 25 MG one 25 MG t} tone 25 MG Multivitami Multivitami No Multivitam n Adults - n Adults - in Adults - Glimepiride Glimepiride No Glimepirid 4 MG 4 MG e 4 MG Lisinopril Lisinopril No Lisinopril 2.5 MG 2.5 MG 2.5 MG Tamsulosin Tamsulosin No Tamsulosin HCl 0.4 MG HCl 0.4 MG HCl 0.4 MG Magnesium Magnesium No 1{table BID Magnesium Oxide 400 Oxide 400 t_as_ne Oxide 400 MG MG eded} MG Carvedilol Carvedilol No Carvedilol 3.125 MG 3.125 MG 3.125 MG Victoza 18 Victoza 18 No QD Victoza 18 MG/3ML MG/3ML MG/3ML Calcium-Mag Calcium-Mag No Calcium-Ma nesium-Zinc nesium-Zinc gnesium-Zi - - nc - Fenofibrate Fenofibrate No Fenofibrat 145 MG 145 MG e 145 MG Atorvastati Atorvastati No Atorvastat n Calcium n Calcium in Calcium 80 MG 80 MG 80 MG Isosorbide Isosorbide No Isosorbide Mononitrate Mononitrate Mononitrat ER 30 MG ER 30 MG e ER 30 MG Contour Contour No QD Contour next next next testing testing testing strips n/s strips n/s strips n/s Clopidogrel Clopidogrel No QD Clopidogre Bisulfate Bisulfate l 75 MG 75 MG Bisulfate 75 MG metFORMIN metFORMIN No metFORMIN HCl 1000 MG HCl 1000 MG HCl 1000 MG Carvedilol Carvedilol No Carvedilol 3.125 MG 3.125 MG 3.125 MG Atorvastati Atorvastati No Atorvastat n Calcium n Calcium in Calcium 80 MG 80 MG 80 MG Glimepiride Glimepiride No BID Glimepirid 4 MG 4 MG e 4 MG Lisinopril Lisinopril No Lisinopril 2.5 MG 2.5 MG 2.5 MG Clopidogrel Clopidogrel No Clopidogre Bisulfate Bisulfate l 75 MG 75 MG Bisulfate 75 MG metFORMIN metFORMIN No 1{table BID metFORMIN HCl 1000 MG HCl 1000 MG t_with_ HCl 1000 meals} MG Furosemide Furosemide No 1{table QD Furosemide 40 MG 40 MG t} 40 MG Victoza 18 Victoza 18 No QD Victoza 18 MG/3ML MG/3ML MG/3ML Vascepa 1 Vascepa 1 No Vascepa 1 GM GM GM Tamsulosin Tamsulosin No Tamsulosin HCl 0.4 MG HCl 0.4 MG HCl 0.4 MG Fenofibrate Fenofibrate No Fenofibrat 145 MG 145 MG e 145 MG Aspir-81 81 Aspir-81 81 No 1{table QD Aspir-81 MG MG t} 81 MG Multivitami Multivitami No Multivitam n Adults - n Adults - in Adults - Glimepiride Glimepiride No Glimepirid 4 MG 4 MG e 4 MG Isosorbide Isosorbide No Isosorbide Mononitrate Mononitrate Mononitrat ER 30 MG ER 30 MG e ER 30 MG Contour Contour No QD Contour next next next testing testing testing strips n/s strips n/s strips n/s Magnesium Magnesium No 1{table BID Magnesium Oxide 400 Oxide 400 t_as_ne Oxide 400 MG MG eded} MG Calcium-Mag Calcium-Mag No Calcium-Ma nesium-Zinc nesium-Zinc gnesium-Zi - - nc - Nitroglycer Nitroglycer No Nitroglyce in 0.4 MG in 0.4 MG rin 0.4 MG Spironolact Spironolact No 1{table QD Spironolac one 25 MG one 25 MG t} tone 25 MG Isosorbide Isosorbide No 1{table QD Isosorbide Mononitrate Mononitrate t_in_th Mononitrat ER 30 MG ER 30 MG e_morni e ER 30 MG ng} Coreg 3.125 Coreg 3.125 No BID Coreg MG MG 3.125 MG Lisinopril Lisinopril No 1{table QD Lisinopril 2.5 MG 2.5 MG t} 2.5 MG Fenofibrate Fenofibrate No 1{table QD Fenofibrat 145 MG 145 MG t_with_ e 145 MG food} Lipitor 80 Lipitor 80 No 1{table QD Lipitor 80 MG MG t} MG Atorvastati Atorvastati No Atorvastat n Calcium n Calcium in Calcium 80 MG 80 MG 80 MG Tamsulosin Tamsulosin No Tamsulosin HCl 0.4 MG HCl 0.4 MG HCl 0.4 MG Multivitami Multivitami No Multivitam n Adults - n Adults - in Adults - metFORMIN metFORMIN No metFORMIN HCl 1000 MG HCl 1000 MG HCl 1000 MG Furosemide Furosemide No 1{table QD Furosemide 40 MG 40 MG t} 40 MG Vascepa 1 Vascepa 1 No Vascepa 1 GM GM GM Fenofibrate Fenofibrate No Fenofibrat 145 MG 145 MG e 145 MG Lipitor 80 Lipitor 80 No 1{table QD Lipitor 80 MG MG t} MG Clopidogrel Clopidogrel No Clopidogre Bisulfate Bisulfate l 75 MG 75 MG Bisulfate 75 MG Isosorbide Isosorbide No Isosorbide Mononitrate Mononitrate Mononitrat ER 30 MG ER 30 MG e ER 30 MG Spironolact Spironolact No 1{table QD Spironolac one 25 MG one 25 MG t} tone 25 MG Coreg 3.125 Coreg 3.125 No BID Coreg MG MG 3.125 MG Fenofibrate Fenofibrate No 1{table QD Fenofibrat 145 MG 145 MG t_with_ e 145 MG food} Magnesium Magnesium No 1{table BID Magnesium Oxide 400 Oxide 400 t_as_ne Oxide 400 MG MG eded} MG Calcium-Mag Calcium-Mag No Calcium-Ma nesium-Zinc nesium-Zinc gnesium-Zi - - nc - Lisinopril Lisinopril No Lisinopril 2.5 MG 2.5 MG 2.5 MG Glimepiride Glimepiride No Glimepirid 4 MG 4 MG e 4 MG Isosorbide Isosorbide No 1{table QD Isosorbide Mononitrate Mononitrate t_in_th Mononitrat ER 30 MG ER 30 MG e_morni e ER 30 MG ng} Victoza 18 Victoza 18 No QD Victoza 18 MG/3ML MG/3ML MG/3ML Lisinopril Lisinopril No 1{table QD Lisinopril 2.5 MG 2.5 MG t} 2.5 MG Aspir-81 81 Aspir-81 81 No 1{table QD Aspir-81 MG MG t} 81 MG Carvedilol Carvedilol No Carvedilol 3.125 MG 3.125 MG 3.125 MG Glimepiride Glimepiride No Glimepirid 4 MG 4 MG e 4 MG Contour Contour No QD Contour next next next testing testing testing strips n/s strips n/s strips n/s metFORMIN metFORMIN No 1{table BID metFORMIN HCl 1000 MG HCl 1000 MG t_with_ HCl 1000 meals} MG Clopidogrel Clopidogrel No QD Clopidogre Bisulfate Bisulfate l 75 MG 75 MG Bisulfate 75 MG Nitroglycer Nitroglycer No Nitroglyce in 0.4 MG in 0.4 MG rin 0.4 MG Furosemide Furosemide No 1{table QD Furosemide 40 MG 40 MG t} 40 MG Calcium-Mag Calcium-Mag No Calcium-Ma nesium-Zinc nesium-Zinc gnesium-Zi - - nc - Isosorbide Isosorbide No Isosorbide Mononitrate Mononitrate Mononitrat ER 30 MG ER 30 MG e ER 30 MG Lipitor 80 Lipitor 80 No 1{table QD Lipitor 80 MG MG t} MG Glimepiride Glimepiride No Glimepirid 4 MG 4 MG e 4 MG Clopidogrel Clopidogrel No Clopidogre Bisulfate Bisulfate l 75 MG 75 MG Bisulfate 75 MG Contour Contour No QD Contour next next next testing testing testing strips n/s strips n/s strips n/s Fenofibrate Fenofibrate No Fenofibrat 145 MG 145 MG e 145 MG Atorvastati Atorvastati No Atorvastat n Calcium n Calcium in Calcium 80 MG 80 MG 80 MG Magnesium Magnesium No 1{table BID Magnesium Oxide 400 Oxide 400 t_as_ne Oxide 400 MG MG eded} MG metFORMIN metFORMIN No 1{table BID metFORMIN HCl 1000 MG HCl 1000 MG t_with_ HCl 1000 meals} MG Lisinopril Lisinopril No 1{table QD Lisinopril 2.5 MG 2.5 MG t} 2.5 MG Clopidogrel Clopidogrel No QD Clopidogre Bisulfate Bisulfate l 75 MG 75 MG Bisulfate 75 MG Lisinopril Lisinopril No Lisinopril 2.5 MG 2.5 MG 2.5 MG Vascepa 1 Vascepa 1 No Vascepa 1 GM GM GM Carvedilol Carvedilol No Carvedilol 3.125 MG 3.125 MG 3.125 MG metFORMIN metFORMIN No metFORMIN HCl 1000 MG HCl 1000 MG HCl 1000 MG Coreg 3.125 Coreg 3.125 No BID Coreg MG MG 3.125 MG Spironolact Spironolact No 1{table QD Spironolac one 25 MG one 25 MG t} tone 25 MG Victoza 18 Victoza 18 No QD Victoza 18 MG/3ML MG/3ML MG/3ML Isosorbide Isosorbide No 1{table QD Isosorbide Mononitrate Mononitrate t_in_th Mononitrat ER 30 MG ER 30 MG e_morni e ER 30 MG ng} Aspir-81 81 Aspir-81 81 No 1{table QD Aspir-81 MG MG t} 81 MG Glimepiride Glimepiride No Glimepirid 4 MG 4 MG e 4 MG Multivitami Multivitami No Multivitam n Adults - n Adults - in Adults - Fenofibrate Fenofibrate No 1{table QD Fenofibrat 145 MG 145 MG t_with_ e 145 MG food} Isosorbide Isosorbide No 1{table QD Isosorbide Mononitrate Mononitrate t_in_th Mononitrat ER 30 MG ER 30 MG e_morni e ER 30 MG ng} Multivitami Multivitami No Multivitam n Adults - n Adults - in Adults - metFORMIN metFORMIN No 1{table BID metFORMIN HCl 1000 MG HCl 1000 MG t_with_ HCl 1000 meals} MG Glimepiride Glimepiride No Glimepirid 4 MG 4 MG e 4 MG Clopidogrel Clopidogrel No Clopidogre Bisulfate Bisulfate l 75 MG 75 MG Bisulfate 75 MG Clopidogrel Clopidogrel No QD Clopidogre Bisulfate Bisulfate l 75 MG 75 MG Bisulfate 75 MG Spironolact Spironolact No 1{table QD Spironolac one 25 MG one 25 MG t} tone 25 MG Lisinopril Lisinopril No 1{table QD Lisinopril 2.5 MG 2.5 MG t} 2.5 MG Magnesium Magnesium No 1{table BID Magnesium Oxide 400 Oxide 400 t_as_ne Oxide 400 MG MG eded} MG metFORMIN metFORMIN No metFORMIN HCl 1000 MG HCl 1000 MG HCl 1000 MG Nitroglycer Nitroglycer No Nitroglyce in 0.4 MG in 0.4 MG rin 0.4 MG Carvedilol Carvedilol No Carvedilol 3.125 MG 3.125 MG 3.125 MG Lisinopril Lisinopril No Lisinopril 2.5 MG 2.5 MG 2.5 MG Fenofibrate Fenofibrate No Fenofibrat 145 MG 145 MG e 145 MG Fenofibrate Fenofibrate No 1{table QD Fenofibrat 145 MG 145 MG t_with_ e 145 MG food} Atorvastati Atorvastati No Atorvastat n Calcium n Calcium in Calcium 80 MG 80 MG 80 MG Vascepa 1 Vascepa 1 No Vascepa 1 GM GM GM Calcium-Mag Calcium-Mag No Calcium-Ma nesium-Zinc nesium-Zinc gnesium-Zi - - nc - Coreg 3.125 Coreg 3.125 No BID Coreg MG MG 3.125 MG Furosemide Furosemide No 1{table QD Furosemide 40 MG 40 MG t} 40 MG Glimepiride Glimepiride No Glimepirid 4 MG 4 MG e 4 MG Contour Contour No QD Contour next next next testing testing testing strips n/s strips n/s strips n/s Victoza 18 Victoza 18 No QD Victoza 18 MG/3ML MG/3ML MG/3ML Isosorbide Isosorbide No Isosorbide Mononitrate Mononitrate Mononitrat ER 30 MG ER 30 MG e ER 30 MG Lipitor 80 Lipitor 80 No 1{table QD Lipitor 80 MG MG t} MG Tradjenta 5 Tradjenta 5 No 1{table QD Tradjenta MG MG t} 5 MG Aspir-81 81 Aspir-81 81 No 1{table QD Aspir-81 MG MG t} 81 MG Isosorbide Isosorbide No 1{table QD Isosorbide Mononitrate Mononitrate t_in_th Mononitrat ER 30 MG ER 30 MG e_morni e ER 30 MG ng} Multivitami Multivitami No Multivitam n Adults - n Adults - in Adults - metFORMIN metFORMIN No 1{table BID metFORMIN HCl 1000 MG HCl 1000 MG t_with_ HCl 1000 meals} MG Glimepiride Glimepiride No Glimepirid 4 MG 4 MG e 4 MG Clopidogrel Clopidogrel No Clopidogre Bisulfate Bisulfate l 75 MG 75 MG Bisulfate 75 MG Clopidogrel Clopidogrel No QD Clopidogre Bisulfate Bisulfate l 75 MG 75 MG Bisulfate 75 MG Spironolact Spironolact No 1{table QD Spironolac one 25 MG one 25 MG t} tone 25 MG Lisinopril Lisinopril No 1{table QD Lisinopril 2.5 MG 2.5 MG t} 2.5 MG Magnesium Magnesium No 1{table BID Magnesium Oxide 400 Oxide 400 t_as_ne Oxide 400 MG MG eded} MG metFORMIN metFORMIN No metFORMIN HCl 1000 MG HCl 1000 MG HCl 1000 MG Nitroglycer Nitroglycer No Nitroglyce in 0.4 MG in 0.4 MG rin 0.4 MG Carvedilol Carvedilol No Carvedilol 3.125 MG 3.125 MG 3.125 MG Lisinopril Lisinopril No Lisinopril 2.5 MG 2.5 MG 2.5 MG Fenofibrate Fenofibrate No Fenofibrat 145 MG 145 MG e 145 MG Fenofibrate Fenofibrate No 1{table QD Fenofibrat 145 MG 145 MG t_with_ e 145 MG food} Atorvastati Atorvastati No Atorvastat n Calcium n Calcium in Calcium 80 MG 80 MG 80 MG Vascepa 1 Vascepa 1 No Vascepa 1 GM GM GM Calcium-Mag Calcium-Mag No Calcium-Ma nesium-Zinc nesium-Zinc gnesium-Zi - - nc - Coreg 3.125 Coreg 3.125 No BID Coreg MG MG 3.125 MG Furosemide Furosemide No 1{table QD Furosemide 40 MG 40 MG t} 40 MG Glimepiride Glimepiride No Glimepirid 4 MG 4 MG e 4 MG Contour Contour No QD Contour next next next testing testing testing strips n/s strips n/s strips n/s Victoza 18 Victoza 18 No QD Victoza 18 MG/3ML MG/3ML MG/3ML Isosorbide Isosorbide No Isosorbide Mononitrate Mononitrate Mononitrat ER 30 MG ER 30 MG e ER 30 MG Lipitor 80 Lipitor 80 No 1{table QD Lipitor 80 MG MG t} MG Tradjenta 5 Tradjenta 5 No 1{table QD Tradjenta MG MG t} 5 MG Aspir-81 81 Aspir-81 81 No 1{table QD Aspir-81 MG MG t} 81 MG Isosorbide Isosorbide No 1{table QD Isosorbide Mononitrate Mononitrate t_in_th Mononitrat ER 30 MG ER 30 MG e_morni e ER 30 MG ng} Multivitami Multivitami No Multivitam n Adults - n Adults - in Adults - metFORMIN metFORMIN No 1{table BID metFORMIN HCl 1000 MG HCl 1000 MG t_with_ HCl 1000 meals} MG Glimepiride Glimepiride No Glimepirid 4 MG 4 MG e 4 MG Clopidogrel Clopidogrel No Clopidogre Bisulfate Bisulfate l 75 MG 75 MG Bisulfate 75 MG Clopidogrel Clopidogrel No QD Clopidogre Bisulfate Bisulfate l 75 MG 75 MG Bisulfate 75 MG Spironolact Spironolact No 1{table QD Spironolac one 25 MG one 25 MG t} tone 25 MG Lisinopril Lisinopril No 1{table QD Lisinopril 2.5 MG 2.5 MG t} 2.5 MG Magnesium Magnesium No 1{table BID Magnesium Oxide 400 Oxide 400 t_as_ne Oxide 400 MG MG eded} MG metFORMIN metFORMIN No metFORMIN HCl 1000 MG HCl 1000 MG HCl 1000 MG Nitroglycer Nitroglycer No Nitroglyce in 0.4 MG in 0.4 MG rin 0.4 MG Carvedilol Carvedilol No Carvedilol 3.125 MG 3.125 MG 3.125 MG Lisinopril Lisinopril No Lisinopril 2.5 MG 2.5 MG 2.5 MG Fenofibrate Fenofibrate No Fenofibrat 145 MG 145 MG e 145 MG Fenofibrate Fenofibrate No 1{table QD Fenofibrat 145 MG 145 MG t_with_ e 145 MG food} Atorvastati Atorvastati No Atorvastat n Calcium n Calcium in Calcium 80 MG 80 MG 80 MG Vascepa 1 Vascepa 1 No Vascepa 1 GM GM GM Calcium-Mag Calcium-Mag No Calcium-Ma nesium-Zinc nesium-Zinc gnesium-Zi - - nc - Coreg 3.125 Coreg 3.125 No BID Coreg MG MG 3.125 MG Furosemide Furosemide No 1{table QD Furosemide 40 MG 40 MG t} 40 MG Glimepiride Glimepiride No Glimepirid 4 MG 4 MG e 4 MG Contour Contour No QD Contour next next next testing testing testing strips n/s strips n/s strips n/s Victoza 18 Victoza 18 No QD Victoza 18 MG/3ML MG/3ML MG/3ML Isosorbide Isosorbide No Isosorbide Mononitrate Mononitrate Mononitrat ER 30 MG ER 30 MG e ER 30 MG Lipitor 80 Lipitor 80 No 1{table QD Lipitor 80 MG MG t} MG Tradjenta 5 Tradjenta 5 No 1{table QD Tradjenta MG MG t} 5 MG Aspir-81 81 Aspir-81 81 No 1{table QD Aspir-81 MG MG t} 81 MG Isosorbide Isosorbide No 1{table QD Isosorbide Mononitrate Mononitrate t_in_th Mononitrat ER 30 MG ER 30 MG e_morni e ER 30 MG ng} Multivitami Multivitami No Multivitam n Adults - n Adults - in Adults - metFORMIN metFORMIN No 1{table BID metFORMIN HCl 1000 MG HCl 1000 MG t_with_ HCl 1000 meals} MG Glimepiride Glimepiride No Glimepirid 4 MG 4 MG e 4 MG Clopidogrel Clopidogrel No Clopidogre Bisulfate Bisulfate l 75 MG 75 MG Bisulfate 75 MG Clopidogrel Clopidogrel No QD Clopidogre Bisulfate Bisulfate l 75 MG 75 MG Bisulfate 75 MG Spironolact Spironolact No 1{table QD Spironolac one 25 MG one 25 MG t} tone 25 MG Lisinopril Lisinopril No 1{table QD Lisinopril 2.5 MG 2.5 MG t} 2.5 MG Magnesium Magnesium No 1{table BID Magnesium Oxide 400 Oxide 400 t_as_ne Oxide 400 MG MG eded} MG metFORMIN metFORMIN No metFORMIN HCl 1000 MG HCl 1000 MG HCl 1000 MG Nitroglycer Nitroglycer No Nitroglyce in 0.4 MG in 0.4 MG rin 0.4 MG Carvedilol Carvedilol No Carvedilol 3.125 MG 3.125 MG 3.125 MG Lisinopril Lisinopril No Lisinopril 2.5 MG 2.5 MG 2.5 MG Fenofibrate Fenofibrate No Fenofibrat 145 MG 145 MG e 145 MG Fenofibrate Fenofibrate No 1{table QD Fenofibrat 145 MG 145 MG t_with_ e 145 MG food} Atorvastati Atorvastati No Atorvastat n Calcium n Calcium in Calcium 80 MG 80 MG 80 MG Vascepa 1 Vascepa 1 No Vascepa 1 GM GM GM Calcium-Mag Calcium-Mag No Calcium-Ma nesium-Zinc nesium-Zinc gnesium-Zi - - nc - Coreg 3.125 Coreg 3.125 No BID Coreg MG MG 3.125 MG Furosemide Furosemide No 1{table QD Furosemide 40 MG 40 MG t} 40 MG Glimepiride Glimepiride No Glimepirid 4 MG 4 MG e 4 MG Contour Contour No QD Contour next next next testing testing testing strips n/s strips n/s strips n/s Victoza 18 Victoza 18 No QD Victoza 18 MG/3ML MG/3ML MG/3ML Isosorbide Isosorbide No Isosorbide Mononitrate Mononitrate Mononitrat ER 30 MG ER 30 MG e ER 30 MG Lipitor 80 Lipitor 80 No 1{table QD Lipitor 80 MG MG t} MG Tradjenta 5 Tradjenta 5 No 1{table QD Tradjenta MG MG t} 5 MG Aspir-81 81 Aspir-81 81 No 1{table QD Aspir-81 MG MG t} 81 MG Clopidogrel Clopidogrel No QD Clopidogre Bisulfate Bisulfate l 75 MG 75 MG Bisulfate 75 MG Lisinopril Lisinopril No Lisinopril 2.5 MG 2.5 MG 2.5 MG Fenofibrate Fenofibrate No Fenofibrat 145 MG 145 MG e 145 MG Clopidogrel Clopidogrel No Clopidogre Bisulfate Bisulfate l 75 MG 75 MG Bisulfate 75 MG Glimepiride Glimepiride No Glimepirid 4 MG 4 MG e 4 MG Atorvastati Atorvastati No Atorvastat n Calcium n Calcium in Calcium 80 MG 80 MG 80 MG metFORMIN metFORMIN No 1{table BID metFORMIN HCl 1000 MG HCl 1000 MG t_with_ HCl 1000 meals} MG Glimepiride Glimepiride No Glimepirid 4 MG 4 MG e 4 MG Isosorbide Isosorbide No Isosorbide Mononitrate Mononitrate Mononitrat ER 30 MG ER 30 MG e ER 30 MG Carvedilol Carvedilol No Carvedilol 3.125 MG 3.125 MG 3.125 MG Multivitami Multivitami No Multivitam n Adults - n Adults - in Adults - Magnesium Magnesium No 1{table BID Magnesium Oxide 400 Oxide 400 t_as_ne Oxide 400 MG MG eded} MG Isosorbide Isosorbide No 1{table QD Isosorbide Mononitrate Mononitrate t_in_th Mononitrat ER 30 MG ER 30 MG e_morni e ER 30 MG ng} Lisinopril Lisinopril No 1{table QD Lisinopril 2.5 MG 2.5 MG t} 2.5 MG Fenofibrate Fenofibrate No 1{table QD Fenofibrat 145 MG 145 MG t_with_ e 145 MG food} Aspir-81 81 Aspir-81 81 No 1{table QD Aspir-81 MG MG t} 81 MG metFORMIN metFORMIN No metFORMIN HCl 1000 MG HCl 1000 MG HCl 1000 MG Calcium-Mag Calcium-Mag No Calcium-Ma nesium-Zinc nesium-Zinc gnesium-Zi - - nc - Victoza 18 Victoza 18 No QD Victoza 18 MG/3ML MG/3ML MG/3ML Contour Contour No QD Contour next next next testing testing testing strips n/s strips n/s strips n/s Tradjenta 5 Tradjenta 5 No 1{table QD Tradjenta MG MG t} 5 MG Spironolact Spironolact No 1{table QD Spironolac one 25 MG one 25 MG t} tone 25 MG Nitroglycer Nitroglycer No Nitroglyce in 0.4 MG in 0.4 MG rin 0.4 MG Coreg 3.125 Coreg 3.125 No BID Coreg MG MG 3.125 MG Vascepa 1 Vascepa 1 No Vascepa 1 GM GM GM Lipitor 80 Lipitor 80 No 1{table QD Lipitor 80 MG MG t} MG Furosemide Furosemide No 1{table QD Furosemide 40 MG 40 MG t} 40 MG Furosemide Furosemide No 1{table QD Furosemide 40 MG 40 MG t} 40 MG Contour Contour No QD Contour next next next testing testing testing strips n/s strips n/s strips n/s Isosorbide Isosorbide No 1{table QD Isosorbide Mononitrate Mononitrate t_in_th Mononitrat ER 30 MG ER 30 MG e_morni e ER 30 MG ng} Glimepiride Glimepiride No Glimepirid 4 MG 4 MG e 4 MG Fenofibrate Fenofibrate No 1{table QD Fenofibrat 145 MG 145 MG t_with_ e 145 MG food} Magnesium Magnesium No 1{table BID Magnesium Oxide 400 Oxide 400 t_as_ne Oxide 400 MG MG eded} MG Vascepa 1 Vascepa 1 No Vascepa 1 GM GM GM Tradjenta 5 Tradjenta 5 No 1{table QD Tradjenta MG MG t} 5 MG Atorvastati Atorvastati No Atorvastat n Calcium n Calcium in Calcium 80 MG 80 MG 80 MG Lipitor 80 Lipitor 80 No 1{table QD Lipitor 80 MG MG t} MG Clopidogrel Clopidogrel No QD Clopidogre Bisulfate Bisulfate l 75 MG 75 MG Bisulfate 75 MG Fenofibrate Fenofibrate No Fenofibrat 145 MG 145 MG e 145 MG Glimepiride Glimepiride No Glimepirid 4 MG 4 MG e 4 MG metFORMIN metFORMIN No 1{table BID metFORMIN HCl 1000 MG HCl 1000 MG t_with_ HCl 1000 meals} MG Coreg 3.125 Coreg 3.125 No BID Coreg MG MG 3.125 MG Isosorbide Isosorbide No Isosorbide Mononitrate Mononitrate Mononitrat ER 30 MG ER 30 MG e ER 30 MG Nitroglycer Nitroglycer No Nitroglyce in 0.4 MG in 0.4 MG rin 0.4 MG Lisinopril Lisinopril No 1{table QD Lisinopril 2.5 MG 2.5 MG t} 2.5 MG Aspir-81 81 Aspir-81 81 No 1{table QD Aspir-81 MG MG t} 81 MG Victoza 18 Victoza 18 No QD Victoza 18 MG/3ML MG/3ML MG/3ML Multivitami Multivitami No Multivitam n Adults - n Adults - in Adults - Spironolact Spironolact No 1{table QD Spironolac one 25 MG one 25 MG t} tone 25 MG Calcium-Mag Calcium-Mag No Calcium-Ma nesium-Zinc nesium-Zinc gnesium-Zi - - nc - Clopidogrel Clopidogrel No Clopidogre Bisulfate Bisulfate l 75 MG 75 MG Bisulfate 75 MG metFORMIN metFORMIN No metFORMIN HCl 1000 MG HCl 1000 MG HCl 1000 MG Lisinopril Lisinopril No Lisinopril 2.5 MG 2.5 MG 2.5 MG Carvedilol Carvedilol No Carvedilol 3.125 MG 3.125 MG 3.125 MG Furosemide Furosemide No 1{table QD Furosemide 40 MG 40 MG t} 40 MG Contour Contour No QD Contour next next next testing testing testing strips n/s strips n/s strips n/s Isosorbide Isosorbide No 1{table QD Isosorbide Mononitrate Mononitrate t_in_th Mononitrat ER 30 MG ER 30 MG e_morni e ER 30 MG ng} Glimepiride Glimepiride No Glimepirid 4 MG 4 MG e 4 MG Fenofibrate Fenofibrate No 1{table QD Fenofibrat 145 MG 145 MG t_with_ e 145 MG food} Magnesium Magnesium No 1{table BID Magnesium Oxide 400 Oxide 400 t_as_ne Oxide 400 MG MG eded} MG Vascepa 1 Vascepa 1 No Vascepa 1 GM GM GM Tradjenta 5 Tradjenta 5 No 1{table QD Tradjenta MG MG t} 5 MG Contour Contour No BID Contour next next next testing testing testing strips n/s strips n/s strips n/s Atorvastati Atorvastati No Atorvastat n Calcium n Calcium in Calcium 80 MG 80 MG 80 MG Lipitor 80 Lipitor 80 No 1{table QD Lipitor 80 MG MG t} MG Clopidogrel Clopidogrel No QD Clopidogre Bisulfate Bisulfate l 75 MG 75 MG Bisulfate 75 MG Fenofibrate Fenofibrate No Fenofibrat 145 MG 145 MG e 145 MG Glimepiride Glimepiride No Glimepirid 4 MG 4 MG e 4 MG metFORMIN metFORMIN No 1{table BID metFORMIN HCl 1000 MG HCl 1000 MG t_with_ HCl 1000 meals} MG Coreg 3.125 Coreg 3.125 No BID Coreg MG MG 3.125 MG Isosorbide Isosorbide No Isosorbide Mononitrate Mononitrate Mononitrat ER 30 MG ER 30 MG e ER 30 MG Victoza Victoza Yes Benjamín as Common Gabriel directed [facility] Isosorbide Isosorbide Yes Benjamín 1 tablet Common Mononitrate Mononitrate [facility] ER morning [facility] Furosemide Furosemide Yes Benjamín 1 tablet Common Gabriel [facility] Nitroglycer Nitroglycer Yes Benjamín as Common in in Gabriel directed [facility] Gabapentin Gabapentin Yes Benjamín 2 capsule Common Gabriel [facility] Januvia Januvia Yes Benjamín 1 tablet Com mon Gabriel [facility] Coreg Coreg Yes Benjamín 1 tab Common Gabriel [facility] Aspir-81 Aspir-81 Yes Benjamín 1 tablet C ommon Gabriel [facility] Contour Contour Yes Benjamín n/s Common next next [facility] testing testing - [facility] strips strips [facility] Calcium-Mag Calcium-Mag Yes Benjamín as Common nesium-Zinc nesium-Zinc Gabriel directed [facility] Lisinopril Lisinopril Yes Benjamín 1 tablet Common Gabriel [facility] Magnesium Magnesium Yes Benjamín 1 tablet Common Oxide Oxide Gabriel as needed [facility] Lipitor Lipitor Yes [facility] Fenofibrate Fenofibrate Yes Benjamín 1 tablet Common Gabriel with food [facility] Carvedilol Carvedilol Yes Benjamín 1 tablet Common Gabriel [facility] Clopidogrel Clopidogrel Yes Benjamín TK 1 T PO Common Bisulfate Bisulfate Gabriel D Spir it [facility] Glimepiride Glimepiride Yes Benjamín TAKE ONE Common Gabriel TABLET BY Spirit MOUTH - [facility] TWICE A St DAY WITH [facility] OR THE [place] FIRST MAIN MEAL OF THE DAY Multivitami Multivitami Yes Benjamín as Common n Adults n Adults Gabriel directed Sp shayne - [facility] Spironolact Spironolact Yes Benjamín 1 tablet Common one one Gabriel [facility] Metformin Metformin Yes Benjamín 1 tablet Common HCl HCl Gabriel with meals [facility] Tamsulosin Tamsulosin Yes Benjamín 1 capsule Common HCl HCl Gabriel [facility] Glimepiride Glimepiride Yes Benjamín 1 tablet Common Gabriel with [facility] breakfast - [facility] or the first main [facility] meal [facility] the day Center Metformin Metformin Yes Benjamín TAKE ONE Common HCl HCl Gabriel TABLET BY [facility] MOUTH - [facility] TWICE A DAY WITH A [facility] Clopidogrel Clopidogrel No Clopidogre Bisulfate Bisulfate l 75 MG 75 MG Bisulfate 75 MG Nitroglycer Nitroglycer No Nitroglyce in 0.4 MG in 0.4 MG rin 0.4 MG Lisinopril Lisinopril No 1{table QD Lisinopril 2.5 MG 2.5 MG t} 2.5 MG Aspir-81 81 Aspir-81 81 No 1{table QD Aspir-81 MG MG t} 81 MG Victoza 18 Victoza 18 No QD Victoza 18 MG/3ML MG/3ML MG/3ML Multivitami Multivitami No Multivitam n Adults - n Adults - in Adults - Spironolact Spironolact No 1{table QD Spironolac one 25 MG one 25 MG t} tone 25 MG Calcium-Mag Calcium-Mag No Calcium-Ma nesium-Zinc nesium-Zinc gnesium-Zi - - nc - Clopidogrel Clopidogrel No Clopidogre Bisulfate Bisulfate l 75 MG 75 MG Bisulfate 75 MG metFORMIN metFORMIN No metFORMIN HCl 1000 MG HCl 1000 MG HCl 1000 MG Glimepiride Glimepiride No Glimepirid 4 MG 4 MG e 4 MG Lisinopril Lisinopril No Lisinopril 2.5 MG 2.5 MG 2.5 MG Carvedilol Carvedilol No Carvedilol 3.125 MG 3.125 MG 3.125 MG Furosemide Furosemide No 1{table QD Furosemide 40 MG 40 MG t} 40 MG Lipitor 80 Lipitor 80 No 1{table QD Lipitor 80 MG MG t} MG Tradjenta 5 Tradjenta 5 No 1{table QD Tradjenta MG MG t} 5 MG Isosorbide Isosorbide No 1{table QD Isosorbide Mononitrate Mononitrate t_in_th Mononitrat ER 30 MG ER 30 MG e_morni e ER 30 MG ng} Contour Contour No QD Contour next next next testing testing testing strips n/s strips n/s strips n/s Fenofibrate Fenofibrate No 1{table QD Fenofibrat 145 MG 145 MG t_with_ e 145 MG food} Vascepa 1 Vascepa 1 No Vascepa 1 GM GM GM Magnesium Magnesium No 1{table BID Magnesium Oxide 400 Oxide 400 t_as_ne Oxide 400 MG MG eded} MG Coreg 3.125 Coreg 3.125 No BID Coreg MG MG 3.125 MG Lipitor 80 Lipitor 80 No 1{table QD Lipitor 80 MG MG t} MG Atorvastati Atorvastati No Atorvastat n Calcium n Calcium in Calcium 80 MG 80 MG 80 MG Victoza 18 Victoza 18 No QD Victoza 18 MG/3ML MG/3ML MG/3ML Clopidogrel Clopidogrel No QD Clopidogre Bisulfate Bisulfate l 75 MG 75 MG Bisulfate 75 MG Fenofibrate Fenofibrate No Fenofibrat 145 MG 145 MG e 145 MG Glimepiride Glimepiride No Glimepirid 4 MG 4 MG e 4 MG metFORMIN metFORMIN No 1{table BID metFORMIN HCl 1000 MG HCl 1000 MG t_with_ HCl 1000 meals} MG Coreg 3.125 Coreg 3.125 No BID Coreg MG MG 3.125 MG Isosorbide Isosorbide No Isosorbide Mononitrate Mononitrate Mononitrat ER 30 MG ER 30 MG e ER 30 MG Nitroglycer Nitroglycer No Nitroglyce in 0.4 MG in 0.4 MG rin 0.4 MG Nitroglycer Nitroglycer No Nitroglyce in 0.4 MG in 0.4 MG rin 0.4 MG Lisinopril Lisinopril No 1{table QD Lisinopril 2.5 MG 2.5 MG t} 2.5 MG Aspir-81 81 Aspir-81 81 No 1{table QD Aspir-81 MG MG t} 81 MG Glimepiride Glimepiride No Glimepirid 4 MG 4 MG e 4 MG Tamsulosin Tamsulosin 2022- No Tamsulosin HCl 0.4 MG HCl 0.4 MG 08-24 HCl 0.4 MG 00:00 :00 Tamsulosin Tamsulosin 2022- No Tamsulosin HCl 0.4 MG HCl 0.4 MG 08-24 HCl 0.4 MG 00:00 :00 Tamsulosin Tamsulosin 2022- No Tamsulosin HCl 0.4 MG HCl 0.4 MG 08-24 HCl 0.4 MG 00:00 :00 Tamsulosin Tamsulosin 2022- No Tamsulosin HCl 0.4 MG HCl 0.4 MG 08-24 HCl 0.4 MG 00:00 :00 Tamsulosin Tamsulosin 2022- No Tamsulosin HCl 0.4 MG HCl 0.4 MG 08-24 HCl 0.4 MG 00:00 :00 Tamsulosin Tamsulosin 2022- No Tamsulosin HCl 0.4 MG HCl 0.4 MG 08-24 HCl 0.4 MG 00:00 :00 Tamsulosin Tamsulosin 2022- No Tamsulosin HCl 0.4 MG HCl 0.4 MG 08-24 HCl 0.4 MG 00:00 :00 Tamsulosin Tamsulosin 2022- No Tamsulosin HCl 0.4 MG HCl 0.4 MG 08-24 HCl 0.4 MG 00:00 :00 Tamsulosin Tamsulosin 2022- No Tamsulosin HCl 0.4 MG HCl 0.4 MG 08-24 HCl 0.4 MG 00:00 :00 Tamsulosin Tamsulosin 2022- No Tamsulosin HCl 0.4 MG HCl 0.4 MG 08-24 HCl 0.4 MG 00:00 :00 Magnesium Magnesium 2- No 1{table BID Magnesium Oxide 400 Oxide 400 12-16 t_as_ne Oxide 400 MG MG 00:00 eded} MG :00 Magnesium Magnesium 2022- No 1{table BID Magnesium Oxide 400 Oxide 400 18 t_as_ne Oxide 400 MG MG 00:00 eded} MG :00 Magnesium Magnesium 2022- No 1{table BID Magnesium Oxide 400 Oxide 400 -18 t_as_ne Oxide 400 MG MG 00:00 eded} MG :00 Immunizations Ordered Filled Immunization Date Status Comments Sourc e Immunization Name Name FluAD FluAD 2021-07-06 [facility] FluAD FluAD 2021-07-06 [facility] FluAD FluAD 2021-07-06 [facility] FluAD FluAD 2021-07-06 [facility] FluAD FluAD 2021-07-06 [facility] FluAD FluAD 2021-07-06 [facility] FluAD FluAD 2021-07-06 [facility] FluAD FluAD 2021-07-06 [facility] FluAD FluAD 2021-07-06 [facility] FluAD FluAD 2021-07-06 [facility] FluAD FluAD 2021-07-06 [facility] FluAD FluAD 2021-07-06 [facility] FluAD FluAD 2021-07-06 [facility] FluAD FluAD 2021-07-06 [facility] FluAD FluAD 2021-07-06 [facility] FluAD FluAD 2021-07-06 [facility] FluAD FluAD 2021-07-06 [facility] FluAD FluAD 2021-07-06 [facility] FluAD FluAD 2021-07-06 [facility] Seasonal Trivalent 2021-07-06 Completed [facility] Hicks Influenza Vaccine, 00:00:00 Adjuvanted, Preserve Seasonal Trivalent 2021-07-06 Completed Jada Leyvaold Influenza Vaccine, 00:00:00 Adjuvanted, Preserve SARS-COV-2 COVID-19 2020-12-04 Completed [facility] MODERNA VACCINE 00:00:00 [place] [facility] SARS-COV-2 COVID-19 2020-12-04 Completed [facility] of MODERNA VACCINE 00:00:00 [place] [facility] SARS-COV-2 COVID-19 2020-12-04 Completed [facility] of MODERNA VACCINE 00:00:00 [place] [facility] SARS-COV-2 COVID-19 2020-12-04 Completed [facility] of MODERNA VACCINE 00:00:00 [place] [facility] SARS-COV-2 COVID-19 2020-12-04 Completed [facility] of MODERNA VACCINE 00:00:00 [facility] SARS-COV-2 COVID-19 2020-12-04 Completed [facility]ive rs[facility] of MODERNA VACCINE 00:00:00 [place] [facility] SARS-COV-2 COVID-19 2020-12-04 Completed [facility] of MODERNA VACCINE 00:00:00 [place] [facility] SARS-COV-2 COVID-19 2020-12-04 Completed [facility] of MODERNA VACCINE 00:00:00 [facility] SARS-COV-2 COVID-19 2020-12-04 Completed [facility] of MODERNA VACCINE 00:00:00 [facility] SARS-COV-2 COVID-19 2020-12-04 Completed [facility] of MODERNA VACCINE 00:00:00 [place] [facility] SARS-COV-2 COVID-19 2020-12-04 Completed [facility]ive [facility] of MODERNA 12+ YRS 00:00:00 [place] [facility] VACCINE [facility] SARS-COV-2 COVID-19 2020-12-04 Completed [facility] of MODERNA 12+ YRS 00:00:00 [place] [facility] V[facility]INE [facility] SARS-COV-2 COVID-19 2020-12-04 Completed [facility]ive [facility] of MODERNA 12+ YRS 00:00:00 [place] [facility] SARS-COV-2 COVID-19 2020-12-04 Completed [facility] of MODERNA 12+ YRS 00:00:00 [place] [facility] V[facility]INE [facility] SARS-COV-2 COVID-19 2020-12-04 Completed [facility] of MODERNA 12+ YRS 00:00:00 [place] [facility] SARS-COV-2 COVID-19 2020-12-04 Completed [facility] of MODERNA 12+ YRS 00:00:00 [place] [facility] SARS-COV-2 COVID-19 2020-11-06 Completed [facility] MODERNA VACCINE 00:00:00 [place] [facility] SARS-COV-2 COVID-19 2020-11-06 Completed [facility] of MODERNA VACCINE 00:00:00 [place] [facility] SARS-COV-2 COVID-19 2020-11-06 Completed [facility] of MODERNA VACCINE 00:00:00 [place] [facility] SARS-COV-2 COVID-19 2020-11-06 Completed [facility] of MODERNA VACCINE 00:00:00 [place] [facility] SARS-COV-2 COVID-19 2020-11-06 Completed [facility] of MODERNA VACCINE 00:00:00 [place] [facility] SARS-COV-2 COVID-19 2020-11-06 Completed [facility] of MODERNA VACCINE 00:00:00 [place] [facility] SARS-COV-2 COVID-19 2020-11-06 Completed [facility] of MODERNA VACCINE 00:00:00 [place] [facility] SARS-COV-2 COVID-19 2020-11-06 Completed [facility] of MODERNA VACCINE 00:00:00 [place] [facility] SARS-COV-2 COVID-19 2020-11-06 Completed [facility] of MODERNA VACCINE 00:00:00 [place] [facility] SARS-COV-2 COVID-19 2020-11-06 Completed [facility] of MODERNA VACCINE 00:00:00 [place] [facility] SARS-COV-2 COVID-19 2020-11-06 Completed [facility] of MODERNA 12+ YRS 00:00:00 [place] [facility] VACCINE [facility] SARS-COV-2 COVID-19 2020-11-06 Completed [facility] of MODERNA 12+ YRS 00:00:00 [place] [facility] VACCINE [facility] SARS-COV-2 COVID-19 2020-11-06 Completed [facility] of MODERNA 12+ YRS 00:00:00 [place] [facility] VACCINE [facility] SARS-COV-2 COVID-19 2020-11-06 Completed [facility] of MODERNA 12+ YRS 00:00:00 [place] [facility] VACCINE [facility] SARS-COV-2 COVID-19 2020-11-06 Completed [facility] of MODERNA 12+ YRS 00:00:00 [place] [facility] VACCINE [facility] SARS-COV-2 COVID-19 2020-11-06 Completed [facility] of MODERNA 12+ YRS 00:00:00 [place] [facility] VACCINE [facility] Influenza Virus 2020-07-10 Completed Jada Se ybold Vaccine, Split, up 00:00:00 to age 3 Influenza Virus 2020-07-10 Completed Jada Se ybold Vaccine, Split, up 00:00:00 to age 3 Influenza Virus 2020-07-10 Completed [facility] Vaccine Quad IM 00:00:00 [place] [facility] Multi-dose 6+ MO Branch Influenza Virus 2020-07-10 Completed [facility] Vaccine Quad IM 00:00:00 [place] [facility] Multi-dose 6+ MO [facility] Influenza Virus 2020-07-10 Completed [facility] Vaccine Quad IM 00:00:00 [place] [facility] Multi-dose 6+ MO Branch Influenza Virus 2020-07-10 Completed [facility] Vaccine Quad IM 00:00:00 [place] [facility] Multi-dose 6+ MO Branch Influenza Virus 2020-07-10 Completed [facility] Vaccine Quad IM 00:00:00 [place] [facility] Multi-dose 6+ MO Branch Influenza Virus 2020-07-10 Completed [facility] Vaccine Quad IM 00:00:00 [place] [facility] Multi-dose 6+ MO Branch Influenza Virus 2020-07-10 Completed [facility] Vaccine Quad IM 00:00:00 [place] [facility] Multi-dose 6+ MO Branch Influenza Virus 2020-07-10 Completed [facility] Vaccine Quad IM 00:00:00 [place] [facility] Multi-dose 6+ MO Branch Influenza Virus 2020-07-10 Completed [facility] Vaccine Quad IM 00:00:00 [place] [facility] Multi-dose 6+ MO Branch Influenza Virus 2020-07-10 Completed [facility] Vaccine Quad IM 00:00:00 [place] [facility] Multi-dose 6+ MO Branch Influenza Virus 2020-07-10 Completed [facility] Vaccine Quad IM 00:00:00 [place] [facility] Multi-dose 6+ MO Branch Influenza Virus 2020-07-10 Completed [facility] Vaccine Quad IM 00:00:00 [place] [facility] Multi-dose 6+ MO Branch Influenza Virus 2020-07-10 Completed [facility] Vaccine Quad IM 00:00:00 [place] [facility] Multi-dose 6+ MO Branch Influenza Virus 2020-07-10 Completed [facility] Vaccine Quad IM 00:00:00 [place] [facility] Multi-dose 6+ MO Branch Influenza Virus 2020-07-10 Completed [facility] Vaccine Quad IM 00:00:00 [place] [facility] Multi-dose 6+ MO Branch Influenza Virus 2020-07-10 Completed [facility] Vaccine Quad IM 00:00:00 [place] [facility] Multi-dose 6+ MO Branch Influenza Virus 2019-08-01 Completed Jada Se ybold Vaccine, High Dose, 00:00:00 Age 65 And Up Influenza Virus 2019-08-01 Completed Jada Se ybold Vaccine, High Dose, 00:00:00 Age 65 And Up Influenza High Dose 2019-08-01 Completed [facility] 00:00:00 [facility] Influenza High Dose 2019-08-01 Completed [facility] of 00:00:00 [facility] Influenza High Dose 2019-08-01 Completed [facility] of 00:00:00 [facility] Influenza High Dose 2019-08-01 Completed [facility] of 00:00:00 [facility] Influenza High Dose 2019-08-01 Completed [facility] of 00:00:00 [facility] Influenza High Dose 2019-08-01 Completed [facility] of 00:00:00 [facility] Influenza High Dose 2019-08-01 Completed [facility] of 00:00:00 [facility] Influenza High Dose 2019-08-01 Completed [facility] of 00:00:00 [facility] Influenza High Dose 2019-08-01 Completed [facility] of 00:00:00 [facility] Influenza High Dose 2019-08-01 Completed [facility] of 00:00:00 [facility] Influenza High Dose 2019-08-01 Completed [facility] of 00:00:00 [facility] Influenza High Dose 2019-08-01 Completed [facility] of 00:00:00 [facility] Influenza High Dose 2019-08-01 Completed [facility] of 00:00:00 [facility] Influenza High Dose 2019-08-01 Completed [facility] of 00:00:00 [facility] Influenza High Dose 2019-08-01 Completed [facility] of 00:00:00 [facility] Influenza High Dose 2019-08-01 Completed [facility] of 00:00:00 [facility] Prevnar 13 Prevnar 13 2019-07-03 [facility] - -Pneumonia Vaccine -Pneumonia Vaccine 09:17:00 [facility] Prevnar 13 Prevnar 13 2019-07-03 [facility] - -Pneumonia Vaccine -Pneumonia Vaccine 09:17:00 [facility] Prevnar 13 Prevnar 13 2019-07-03 [facility] - -Pneumonia Vaccine -Pneumonia Vaccine 09:17:00 [facility] Prevnar 13 Prevnar 13 2019-07-03 [facility] - -Pneumonia Vaccine -Pneumonia Vaccine 09:17:00 [facility] Prevnar 13 Prevnar 13 2019-07-03 [facility] - -Pneumonia Vaccine -Pneumonia Vaccine 09:17:00 [facility] Prevnar 13 Prevnar 13 2019-07-03 [facility] - -Pneumonia Vaccine -Pneumonia Vaccine 09:17:00 [facility] Prevnar 13 Prevnar 13 2019-07-03 [facility] - -Pneumonia Vaccine -Pneumonia Vaccine 09:17:00 [facility] Prevnar 13 Prevnar 13 2019-07-03 [facility] - -Pneumonia Vaccine -Pneumonia Vaccine 09:17:00 [facility] Prevnar 13 Prevnar 13 2019-07-03 [facility] - -Pneumonia Vaccine -Pneumonia Vaccine 09:17:00 [facility] Prevnar 13 Prevnar 13 2019-07-03 [facility] - -Pneumonia Vaccine -Pneumonia Vaccine 09:17:00 [facility] Prevnar 13 Prevnar 13 2019-07-03 [facility] - -Pneumonia Vaccine -Pneumonia Vaccine 09:17:00 [facility] Prevnar 13 Prevnar 13 2019-07-03 [facility] - -Pneumonia Vaccine -Pneumonia Vaccine 09:17:00 [facility] Prevnar 13 Prevnar 13 2019-07-03 [facility] - -Pneumonia Vaccine -Pneumonia Vaccine 09:17:00 [facility] Prevnar 13 Prevnar 13 2019-07-03 [facility] - -Pneumonia Vaccine -Pneumonia Vaccine 09:17:00 [facility] Prevnar 13 Prevnar 13 2019-07-03 [facility] - -Pneumonia Vaccine -Pneumonia Vaccine 09:17:00 [facility] Prevnar 13 Prevnar 13 2019-07-03 [facility] - -Pneumonia Vaccine -Pneumonia Vaccine 09:17:00 [facility] Prevnar 13 Prevnar 13 2019-07-03 [facility] - -Pneumonia Vaccine -Pneumonia Vaccine 09:17:00 [facility] Prevnar 13 Prevnar 13 2019-07-03 [facility] - -Pneumonia Vaccine -Pneumonia Vaccine 09:17:00 [facility] Prevnar 13 Prevnar 13 2019-07-03 [facility] - -Pneumonia Vaccine -Pneumonia Vaccine 09:17:00 [facility] Prevnar 13 Prevnar 13 2019-07-03 [facility] - -Pneumonia Vaccine -Pneumonia Vaccine 09:17:00 [facility] Prevnar 13 Prevnar 13 2019-07-03 [facility] - -Pneumonia Vaccine -Pneumonia Vaccine 09:17:00 [facility] Prevnar 13 Prevnar 13 2019-07-03 [facility] - -Pneumonia Vaccine -Pneumonia Vaccine 09:17:00 [facility] Prevnar 13 Prevnar 13 2019-07-03 Com[facility] - -Pneumonia Vaccine -Pneumonia Vaccine 09:17:00 [facility] Prevnar 13 Prevnar 13 2019-07-03 Com[facility] - -Pneumonia Vaccine -Pneumonia Vaccine 09:17:00 [facility] Pneumococcal 2019-07-03 Completed [facility] Seybo ld Vaccine, Conjugate 00:00:00 13 Pneumococcal 2019-07-03 Completed [facility] Seybo ld Vaccine, Conjugate 00:00:00 13 Prevnar 13 Prevnar 13 2019-07-03 [facility] - -Pneumonia Vaccine -Pneumonia Vaccine 00:00:00 [facility] FLUZONE HIGH DOSE FLUZONE HIGH DOSE 2019-06-04 Completed [facility] - OVER 65 OVER 65 08:47:00 [facility] FLUZONE HIGH DOSE FLUZONE HIGH DOSE 2019-06-04 Completed [facility] - OVER 65 OVER 65 08:47:00 [facility] FLUZONE HIGH DOSE FLUZONE HIGH DOSE 2019-06-04 Completed [facility] - OVER 65 OVER 65 08:47:00 [facility] FLUZONE HIGH DOSE FLUZONE HIGH DOSE 2019-06-04 Completed [facility] - OVER 65 OVER 65 08:47:00 [facility] FLUZONE HIGH DOSE FLUZONE HIGH DOSE 2019-06-04 Completed [facility] - OVER 65 OVER 65 08:47:00 [facility] FLUZONE HIGH DOSE FLUZONE HIGH DOSE 2019-06-04 Completed [facility] - OVER 65 OVER 65 08:47:00 [facility] FLUZONE HIGH DOSE FLUZONE HIGH DOSE 2019-06-04 Completed [facility] - OVER 65 OVER 65 08:47:00 [facility] FLUZONE HIGH DOSE FLUZONE HIGH DOSE 2019-06-04 Completed [facility] - OVER 65 OVER 65 08:47:00 [facility] FLUZONE HIGH DOSE FLUZONE HIGH DOSE 2019-06-04 Completed [facility] - OVER 65 OVER 65 08:47:00 [facility] FLUZONE HIGH DOSE FLUZONE HIGH DOSE 2019-06-04 Completed [facility] - OVER 65 OVER 65 08:47:00 [facility] FLUZONE HIGH DOSE FLUZONE HIGH DOSE 2019-06-04 Completed [facility] - OVER 65 OVER 65 08:47:00 [facility] FLUZONE HIGH DOSE FLUZONE HIGH DOSE 2019-06-04 Completed [facility] - OVER 65 OVER 65 08:47:00 [facility] FLUZONE HIGH DOSE FLUZONE HIGH DOSE 2019-06-04 Completed [facility] - OVER 65 OVER 65 08:47:00 [facility] FLUZONE HIGH DOSE FLUZONE HIGH DOSE 2019-06-04 Completed [facility] - OVER 65 OVER 65 08:47:00 [facility] FLUZONE HIGH DOSE FLUZONE HIGH DOSE 2019-06-04 Completed [facility] - OVER 65 OVER 65 08:47:00 [facility] FLUZONE HIGH DOSE FLUZONE HIGH DOSE 2019-06-04 Completed [facility] - OVER 65 OVER 65 08:47:00 [facility] FLUZONE HIGH DOSE FLUZONE HIGH DOSE 2019-06-04 Completed [facility] - OVER 65 OVER 65 08:47:00 [facility] FLUZONE HIGH DOSE FLUZONE HIGH DOSE 2019-06-04 Completed [facility] - OVER 65 OVER 65 08:47:00 [facility] FLUZONE HIGH DOSE FLUZONE HIGH DOSE 2019-06-04 Completed [facility] - OVER 65 OVER 65 08:47:00 [facility] FLUZONE HIGH DOSE FLUZONE HIGH DOSE 2019-06-04 Completed [facility] - OVER 65 OVER 65 08:47:00 [facility] FLUZONE HIGH DOSE FLUZONE HIGH DOSE 2019-06-04 Completed [facility] - OVER 65 OVER 65 08:47:00 [facility] FLUZONE HIGH DOSE FLUZONE HIGH DOSE 2019-06-04 Completed [facility] - OVER 65 OVER 65 08:47:00 [facility] FLUZONE HIGH DOSE FLUZONE HIGH DOSE 2019-06-04 Completed [facility] - OVER 65 OVER 65 08:47:00 [facility] FLUZONE HIGH DOSE FLUZONE HIGH DOSE 2019-06-04 Completed [facility] - OVER 65 OVER 65 08:47:00 [facility] Influenza Virus 2019-06-04 Completed [facility] Se ybold Vaccine, High Dose, 00:00:00 Age 65 And Up Influenza Virus 2019-06-04 Completed [facility] Se ybold Vaccine, High Dose, 00:00:00 Age 65 And Up FLUZONE HIGH DOSE FLUZONE HIGH DOSE 2019-06-04 Completed [facility] - OVER [facility] OVER 65 00:00:00 [facility] Kenalog Kenalog 2019-03-19 Completed [facility] - (Triamcinolone) (Triamcinolone) 15:11:00 [facility] Kenalog Kenalog 2019-03-19 Completed [facility] - (Triamcinolone) (Triamcinolone) 15:11:00 [facility] Kenalog Kenalog 2019-03-19 Completed [facility] - (Triamcinolone) (Triamcinolone) 15:11:00 [facility] Kenalog Kenalog 2019-03-19 Completed [facility] - (Triamcinolone) (Triamcinolone) 15:11:[address] [facility] 2019-03-19 Completed [facility] - (Triamcinolone) (Triamcinolone) 15:11:00 [facility] 2019-03-19 Completed [facility] (Triamcinolone) (Triamcinolone) 15:11:00 [facility] 2019-03-19 Completed [facility] (Triamcinolone) (Triamcinolone) 15:11:00 [facility] Vital Signs Vital Name Observation Time Observation Value Comments Source height 2022-08-18 08:50:00 65 [in_i] [facility] weight 2022-08-18 08:50:00 219.8 [lb_av] [facility] temperature 2022-08-18 08:50:00 97.9 [degF] [facility] bmi 2022-08-18 08:50:00 36.57 kg/m2 [facility] oximetry 2022-08-18 08:50:00 97 % [facility] respiratory rate 2022-08-18 08:50:00 17 /min Comm on [facility] blood pressure 2022-08-18 08:50:00 117 mm[Hg] [facility] - systolic [facility] blood pressure 2022-08-18 08:50:00 64 mm[Hg] [facility] - diastolic [facility] height 2022-07-17 09:40:00 65 [in_i] [facility] [facility] weight 2022-07-17 09:40:00 211.6 [lb_av] [facility] temperature 2022-07-17 09:40:00 97.0 [degF] [facility] bmi 2022-07-17 09:40:00 35.21 kg/m2 [facility] oximetry 2022-07-17 09:40:00 96 % [facility] respiratory rate 2022-07-17 09:40:00 17 /min Comm on [facility] blood pressure 2022-07-17 09:40:00 132 mm[Hg] Common [facility] - systolic [facility] blood pressure 2022-07-17 09:40:00 78 mm[Hg] Common [facility] - diastolic [facility] height 2022-06-14 09:20:00 65 [in_i] Common [facility] weight 2022-06-14 09:20:00 208.2 [lb_av] Common [facility] temperature 2022-06-14 09:20:00 97.4 [degF] Common [facility] bmi 2022-06-14 09:20:00 34.64 kg/m2 [facility] oximetry 2022-06-14 09:20:00 96 % [facility] respiratory rate 2022-06-14 09:20:00 17 /min Comm on [facility] blood pressure 2022-06-14 09:20:00 127 mm[Hg] Common [facility] - systolic [facility] blood pressure 2022-06-14 09:20:00 70 mm[Hg] [facility] - diastolic [facility] height 2022-06-14 09:30:00 65 [in_i] Common [facility] weight 2022-06-14 09:30:00 208.2 [lb_av] [facility] temperature 2022-06-14 09:30:00 97.4 [degF] Common [facility] bmi 2022-06-14 09:30:00 34.64 kg/m2 Common S [facility] oximetry 2022-06-14 09:30:00 96 % Common [facility] respiratory rate 2022-06-14 09:30:00 17 /min Comm on [facility] blood pressure 2022-06-14 09:30:00 127 mm[Hg] [facility] - systolic [facility] blood pressure 2022-06-14 09:30:00 70 mm[Hg] [facility] - diastolic [facility] height 2022-05-29 13:00:00 65 [in_i] [facility] weight 2022-05-29 13:00:00 208.8 [lb_av] [facility] temperature 2022-05-29 13:00:00 97.3 [degF] [facility] bmi 2022-05-29 13:00:00 34.74 kg/m2 [facility] oximetry 2022-05-29 13:00:00 98 % [facility] respiratory rate 2022-05-29 13:00:00 16 /min Comm on [facility] blood pressure 2022-05-29 13:00:00 120 mm[Hg] [facility] - systolic [facility] blood pressure 2022-05-29 13:00:00 60 mm[Hg] [facility] - diastolic [facility] Systolic blood 2022-03-06 13:02:00 110 mm[Hg] Jada Seybold pressure Diastolic blood 2022-03-06 13:02:00 63 mm[Hg] Kelse y Seybold pressure Heart rate 2022-03-06 13:02:00 72 /min Jada Quan guzmanyesenia Body temperature 2022-03-06 13:02:00 37.11 Jenny Doreen ey Seybold Respiratory rate 2022-03-06 13:02:00 14 /min Doreen megan Seybold Body height 2022-03-06 13:02:00 165.1 cm Jada Quan guzmanbokostas Body weight 2022-03-06 13:02:00 97.16 kg Jada Quan guzmanbold BMI 2022-03-06 13:02:00 35.64 kg/m2 Jada Quan shabana Oxygen saturation in 2022-03-06 13:02:00 96 /min Jada Hicks Arterial blood by Pulse oximetry Body height 2022-02-03 13:19:00 165.1 cm Jada Quan guzmanbokostas Body weight 2022-02-03 13:19:00 98.884 kg Jada S eybold BMI 2022-02-03 13:19:00 36.28 kg/m2 Jada S eybold Systolic blood 2022-02-03 13:19:00 98 mm[Hg] Jada Seybold pressure Diastolic blood 2022-02-03 13:19:00 60 mm[Hg] Cristoferse y Seybold pressure Heart rate 2022-02-03 13:19:00 87 /min Jada S eybold Body temperature 2022-02-03 13:19:00 36.56 Jenny Doreen ey Seybold Respiratory rate 2022-02-03 13:19:00 15 /min Doreen ey Seybold height 2021-10-06 13:10:00 65 [in_i] Common S [facility]irit [facility] weight 2021-10-06 13:10:00 215 [lb_av] [facility] temperature 2021-10-06 13:10:00 97.5 [degF] Common S [facility] bmi 2021-10-06 13:10:00 35.77 kg/m2 Common S [facility] blood pressure 2021-10-06 13:10:00 128 mm[Hg] [facility] blood pressure 2021-10-06 13:10:00 70 mm[Hg] [facility] - diastolic [facility] height 2021-07-06 16:10:00 65 [in_i] Common S [facility] weight 2021-07-06 16:10:00 212.8 [lb_av] [facility] temperature 2021-07-06 16:10:00 97.3 [degF] Common S [facility] bmi 2021-07-06 16:10:00 35.41 kg/m2 Common S [facility] oximetry 2021-07-06 16:10:00 95 % Common S [facility] respiratory rate 2021-07-06 16:10:00 18 /min Comm on [facility] blood pressure 2021-07-06 16:10:00 129 mm[Hg] [facility] - systolic [facility] blood pressure 2021-07-06 16:10:00 72 mm[Hg] Common [facility] - diastolic [facility] Procedures Procedure Date / Time Performing Clinician Source Performed INSURANCE CORRESPONDENCE 2022-05-25 05:01:00 Doctor Shant, [facility] AUTHORIZATION FOR RELEASE 2022-03-27 05:01:00 Doctor Unassigned, [facility] AUTHORIZATION FOR RELEASE 2022-02-03 05:01:00 Doctor Unassmarcus, [facility] [facility] MEDICATION CORRESPONDENCE 2021-10-28 06:01:00 Doctor Giftyssmarcus, [facility] Name Medical Branch Encounters Start End Encounter Admission Attending Care Care Encounter Source Date/Time Date/Time Type Type Clinicians Facility Department ID 2022-08-16 Outpatient Gabriel, STLMLC STLMLC [id number] Common 09:37:00 Benjamín [facility] 2022-07-14 Outpatient Gabriel, STLMLC STLMLC [id number] Common 14:55:00 Benjamín [facility] 2022-02-22 Outpatient Gabriel, STLMLC STLMLC [id number] Common 15:42:00 Benjamín [facility] 2022-01-09 Outpatient Gabriel, STLMLC STLMLC [id number] Common 11:30:01 Benjamín [facility] 2021-10-26 Outpatient Gabriel, STLMLC STLMLC [id number] Common 14:36:49 Benjamín [facility] 2021-10-26 Outpatient Gabriel, STLMLC STLMLC [id number] Common 14:31:27 Benjamín [facility] 2021-10-26 Outpatient Gabriel, STLMLC STLMLC [id number] Common 14:28:57 Benjamín [facility] 2021-10-26 Outpatient Gabriel, STLMLC STLMLC [id number] Common 13:53:50 Benjamín [facility] 2021-10-26 Outpatient Gabriel, STLMLC STLMLC [id number] Common 13:08:54 Benjamín 09617 [facility] 2021-10-26 Outpatient Gabriel, STLMLC STLMLC [id number] Common 12:43:01 Benjamín 59377 [facility] 2021-10-26 Outpatient Gabriel, STLMLC STLMLC [id number] Common 12:41:05 Benjamín 05603 [facility] 2021-10-26 Outpatient Gabriel, STLMLC STLMLC [id number] Common 12:19:25 Benjamín 88419 [facility] 2021-10-26 Outpatient Gabriel, STLMLC STLMLC [id number] Common 12:15:57 Benjamín 71829 [facility] 2021-10-26 Outpatient Gabriel, STLMLC STLMLC [id number] Common 12:01:29 Benjamín 79600 [facility] 2021-10-26 Outpatient Gabriel, STLMLC STLMLC [id number] Common 11:29:48 Benjamín 83385 [facility] 2021-10-26 Outpatient Gabriel, STLMLC STLMLC [id number] Common 11:25:26 Benjamín 15047 [facility] 2021-10-26 Outpatient Gabriel, STLMLC STLMLC [id number] Common 11:21:12 Benjamín 36140 [facility] 2021-10-26 Outpatient Gabriel, STLMLC STLMLC [id number] Common 11:17:54 Benjamín 41046 [facility] 2021-10-26 Outpatient Gabriel, STLMLC STLMLC [id number] Common 11:17:13 Benjamín 46772 [facility] 2021-10-26 Outpatient Gabriel, STLMLC STLMLC [id number] Common 11:15:45 Benjamín 30191 [facility] 2021-10-26 Outpatient Gabriel, STLMLC STLMLC [id number] Common 10:58:12 Benjamín 25717 [facility] 2021-10-26 Outpatient Gabriel, STLMLC STLMLC [id number] Common 10:57:45 [facility] 98237 [facility] 2023-02-23 2023-02-23 Outpatient Rupa [facility] [id number] Univers 10:00:00 10:00:00 PETER ity [facility] 2022-08-31 2022-08-31 Outpatient [facility] [id number] Univers 13:20:00 13:20:00 TIFFANIE witt o f [facility] 2022-08-28 2022-08-28 (TEL) STLMLC STLMLC [id number] Co mmon 00:00:00 00:00:00 [facility] 2022-08-22 2022-08-22 (TEL) STLMLC STLMLC [id number] Co mmon 00:00:00 00:00:00 [facility] 2022-08-18 2022-08-18 OFFICE STLMLC STLMLC [id number] Co mmon 00:00:00 00:00:00 VISIT [facility] LEVEL 4 [facility] 2022-08-17 2022-08-17 (TEL) STLMLC STLMLC [id number] Co mmon 00:00:00 00:00:00 [facility] 2022-08-15 2022-08-15 [facility] 1.2.840.114 [id number] Univers 00:00:00 00:00:00 Tiffanie [place] [facility].13.10 [facility] 4.2.7.2.686 Claude quan SARABIA [phone] Tn dical NAL [address] [facility] 2022-08-11 2022-08-11 Outpatient Rupa [facility] [id number] Univers 09:20:00 09:20:00 PETER ity [facility] 2022-08-10 2022-08-10 Outpatient Rupa [facility] [id number] Univers 10:00:00 23:59:00 [facility]-07-31 2022-07-[facility] 1.2.840.114 [id number] Univers 00:00:00 00:00:00 Tiffanie SARABIA 350.1.13.10 it[place] [phone] Tn dicne NAL [address] [place] [address] 2022-07-26 2022-07-26 [facility] 1.2.840.114 [id number] Univers 00:00:00 00:00:00 Tiffanie SARABIA 350.1.13.10 [place] [phone] [address] 2022-07-17 2022-07-[address] [facility] [id number] Co mmon 00:00:00 00:00:00 VISIT Spirit ESTAB PT - CHI LEVEL 4 [facility] 2022-07-17 2022-07-17 [facility]phone [facility] [id number] Univers 00:00:00 00:00:00 Tiffanie SARABIA 350.1.13.10 [place] [phone] [address] 2022-07-17 2022-07-17 [facility] 1.2.840.114 [id number] Univers 00:00:00 00:00:00 Tiffanie SARABIA 350.1.13.10 [place] [phone] [address] 2022-07-14 2022-07-14 [facility] [id number] Univers 10:40:00 10:40:00 PETER ity [facility] 2022-07-14 2022-07-14 Outpatient R [facility] [id number] Univers 10:40:00 10:40:00 PETER ity [facility] 2022-07-10 2022-07-10 Outpatient PACEMAKER/I JADA STALEY [id number] Jada 08:15:00 08:15:00 CD Seybol remy 2022-07-10 2022-07-10 [facility] 1.2.840.114 [id number] Univers 00:00:00 00:00:00 Tiffanie SARABIA 350.1.13.10 [place]y [facility] 4.2.7.2.686 Monique SARABIA [phone] Tn dical [facility] 2022-07-07 2022-07-07 Outpatient Rupa [facility] [id number] Univers 08:00:00 08:00:00 PETER ity [facility] 2022-07-03 2022-07-03 Outpatient JADA RAYMOND [id number] Jada 00:00:00 00:00:00 MARTY alberto 2022-06-14 2022-06-14 OFFICE STLMLC STLMLC [id number] Co mmon 00:00:00 00:00:00 VISIT Spirit ESTAB PT - CHI LEVEL 4 [facility] 2022-06-14 2022-06-14 SUB ANNUAL STLMLC STLMLC [id number] Common 00:00:00 00:00:00 [facility] Spirit WELLNESS - CHI VISIT [facility] 2022-06-14 2022-06-14 (TEL) STLMLC STLMLC [id number] Co mmon 00:00:00 00:00:00 Spirit - CHI [facility] 2022-06-14 2022-06-14 (TEL) STLMLC STLMLC [id number] Co mmon 00:00:00 00:00:00 Spirit - CHI [facility] 2022-06-05 2022-06-05 Outpatient JADA BLANCO [id number] Jada 08:00:00 08:00:00 SIDDHARTHA alberto 2022-05-29 2022-05-29 OFFICE STLMLC STLMLC [id number] Co mmon 00:00:00 00:00:00 VISIT NEW Spir it PT LEVEL 3 - CHI [facility] 2022-05-25 2022-05-25 Telephone [facility] [id number] Univers 00:00:00 00:00:00 Tiffanie SARABIA 350.1.13.10 it[place] [phone] [place] [id number] [facility] 2022-05-25 2022-05-25 Orders Doctor ARTURO 1.2.840.114 [id number] Univers 00:00:00 00:00:00 Only Unassigned, GLENDA 350.1.13.10 ity of [place] [facility] 4.2.7.2.686 Claude as [phone] [facility] [address] [place] 2022-05-08 2022-05-08 (TEL) [facility] [id number] Co mmon 00:00:00 00:00:00 [facility] 2022-04-28 2022-04-28 [facility] 1.2.840.114 [id number] Univers 00:00:00 00:00:00 [facility] [place] 350.1.13.10 ity [facility] [place] [phone] [address] 2022-04-10 2022-04-10 Outpatient [facility] [id number] Univers 00:00:00 23:59:00 PETER ity of [facility] 2022-04-10 2022-04-10 [facility] MARQUITA [facility] 1.2.840.114 [id number] Univers 00:00:00 23:59:00 Encounter Peter GLENDA 350.1.13.10 ity of [facility] 4.2.7.2.686 Claude as [phone] [place] 627994 [place] 2022-03-31 2022-03-31 Outpatient JADA STALEY [id number] Jada 13:00:00 13:00:00 Seybol d 2022-03-30 2022-03-30 Outpatient RL STALEY [id number] Jada 10:30:00 10:30:00 Seybol d 2022-03-30 2022-03-30 Outpatient JADA RAYMOND [id number] Jada 09:40:00 09:40:00 MARTY Seybol d 2022-03-27 2022-03-27 Orders Doctor MORRIS 1.2.840.114 [id number] Univers 00:00:00 00:00:00 Only Unassigned, GLENDA 350.1.13.10 [facility] 4.2.7.2.686 Claude as [phone] [address] 2022-03-20 2022-03-20 [facility] 1.2.328.609 [id number] [facility] 00:00:00 00:00:00 Tiffanie SARABIA 350.1.13.10 [place] of [place] [phone] Tn dical NAL 9 [facility] 2022-03-06 2022-03-06 Outpatient LAB90 JADA STALEY [id number] Jada 08:45:00 08:45:00 Seybol d 2022-03-06 2022-03-06 Office Philip Blanco 1.2.840.114 [id number] Jada 08:15:00 08:30:00 Visit Siddhartha Knutson 350.1.13.13 Se ybold 1.2.7.2.686 [id number] 2022-03-01 2022-03-01 [facility]ill [facility] 1.2.840.114 [id number] Univers 00:00:00 00:00:00 Vianneyldghazal CORNELL 350.1.13.10 ity of [place] [phone] Tn dical NAL 9 [facility] 2022-02-03 2022-02-03 Outpatient LAB90 JADA STALEY [id number] Jada 10:00:00 10:00:00 Seybol d 2022-02-03 2022-02-03 Office Philip Blanco 1.2.840.114 [id number] Jada 09:00:00 09:45:00 Visit Siddhartha Knutson 350.1.13.13 Se ybold 1.2.7.2.686 [id number] 2022-02-03 2022-02-03 Orders Doctor MORRIS 1.2.840.114 [id number] Univers 00:00:00 00:00:00 Only Unassigned, GLENDA 350.1.13.10 ity of [place] [facility] 4.2.7.2.686 Claude as [phone] [address] 2022-01-16 2022-01-16 (TEL) [facility] [id number] Co mmon 00:00:00 00:00:00 [facility] 2022-01-06 2022-01-06 Outpatient R [facility] [id number] Univers 08:59:10 23:59:00 PETER ity of [facility] 2022-01-06 2022-01-06 (TEL[facility] [id number] Co mmon 00:00:00 00:00:00 [facility] 2021-10-28 2021-10-28 Orders Doctor ARTURO 1.2.840.114 [id number] Univers 00:00:00 00:00:00 Only Unassigned, GLENDA 350.1.13.10 ity of [place] [facility] 4.2.7.2.686 Claude as [phone] [address] 2021-10-26 2021-10-26 Telephone [facility] 1.2.252.532 [id number] Univers 00:00:00 00:00:00 Qiangjun [place] 350.1.13.10 ity of [place] [phone] Tn dic[address] 2021-10-26 2021-10-26 Telephone [facility] 1.2.248.682 [id number] Univers 00:00:00 00:00:00 Qiangjun [place] 350.1.13.10 ity of [place] [phone] Tn dicne NAL [address] [place] [address] 2021-10-25 2021-10-25 Refill [facility] 1.2.840.114 [id number] Univers 00:00:00 00:00:00 Qiangjun [place] 350.1.13.10 ity of [place] [phone] Tn dical NAL 9 [facility] 2021-10-18 2021-10-18 (TEL) STLMLC STLMLC [id number] Co mmon 00:00:00 00:00:00 [facility]I [facility] 2021-10-13 2021-10-13 (TEL) STLMLC STLMLC [id number] Co mmon 00:00:00 00:00:00 Spirit [facility] 2021-10-12 2021-10-12 (TEL) STLMLC STLMLC [id number] Co mmon 00:00:00 00:00:00 [facility] 2021-10-11 2021-10-11 Aracelis Moran [facility] 1.2.919.591 [id number] Univers 00:00:00 00:00:00 Tiffanie [place] 350.1.13.10 [facility] [place] [phone] Tn dical [address] 2021-10-06 2021-10-06 OFFICE STLMLC STLMLC [id number] Co mmon 00:00:00 00:00:00 VISIT [facility] LEVEL 4 [facility] 2021-10-04 2021-10-04 Outpatient [facility] [id number] Univers 00:00:00 23:59:00 PETER ity [facility] 2021-10-04 2021-10-04 Hospital MARQUITA [facility] 1.2.840.114 [id number] Univers 00:00:00 23:59:00 Encounter Peter GLENDA 350.1.13.10 ity [facility] 4.2.7.2.686 Claude as [phone] [facility] [address] 2021-10-04 2021-10-04 Outpatient R [facility] [id number] Univers 00:00:00 23:59:00 ity of [facility] 2021-09-14 2021-09-14 Orders Doctor MORRIS 1.2.840.114 [id number] Univers 00:00:00 00:00:00 Only Unassigned, GLENDA 350.1.13.10 ity of [place] [facility] 4.2.7.2.686 Claude as [phone] [address] 2021-07-27 2021-07-27 [facility] 1.2.840.114 [id number] Univers 00:00:00 00:00:00 Tiffanie SARABIA 350.1.13.10 it[place] of [place] [phone] Tn dical NAL [address] [place] [address] 2021-07-15 2021-07-15 Office [facility] 1.2.840.114 [id number] Univers 09:08:57 09:41:35 Visit Tiffanie [place] 350.1.13.10 ity of [place] [phone] Tn dicne nal [address] [place] [address] 2021-07-15 2021-07-15 Outpatient [facility] [id number] Univers 09:00:00 09:41:35 [facility] 2021-07-15 2021-07-15 Outpatient [facility] [id number] Univers 09:00:00 09:00:00 [facility] 2021-07-15 2021-07-15 Orders Doctor MORRIS 1.2.840.114 [id number] Univers 00:00:00 00:00:00 Only Unassigned, GLENDA 350.1.13.10 ity of [place] [facility] 4.2.7.2.686 Claude as [phone] [address] 2021-07-14 2021-07-14 (TEL) STLC STLC [id number] Co mmon 00:00:00 00:00:00 Spirit - CHI [facility] 2021-07-06 2021-07-06 OFFICE STLC STLC [id number] Co mmon 00:00:00 00:00:00 VISIT Spirit ESTAB PT - CHI LEVEL 4 [facility] 2021-07-05 2021-07-05 [facility] 1.2.840.114 [id number] Univers 08:22:08 23:59:00 Encounter Peter [place] 350.1.13.10 it[place] of [place] [phone] Tn dical nal 844 [facility] 2021-07-05 2021-07-05 Outpatient R [facility] [id number] Univers 08:40:00 08:40:00 PETER ity of [facility] 2021-07-01 2021-07-01 (TEL) [facility] [id number] Co mmon 00:00:00 00:00:00 [facility] 2021-06-21 2021-06-21 (TEL) [facility] [id number] Co mmon 00:00:00 00:00:00 [facility] 2021-06-07 2021-06-07 [facility] 1.2.840.114 [id number] Univers 00:00:00 00:00:00 Qiangjun [place] 350.1.13.10 it[place] of [place] [phone] Tn dical nal 059 [facility] 2021-05-30 2021-05-30 Telephone [facility] 1.2.512.818 [id number] Univers 00:00:00 00:00:00 Qiangjun [place] 350.1.13.10 it[place] of [place] [phone] Tn dical nal 9 [facility] 2021-05-18 2021-05-18 [facility] 1.2.296.481 [id number] Univers 00:00:00 00:00:00 Qiangjun [place] 350.1.13.10 [place] of [place] [phone] Tn dicne nal 9 [facility] 2021-05-17 2021-05-17 Orders Doctor MORRIS 1.2.840.114 [id number] Univers 00:00:00 00:00:00 Only Unassigned, GLENDA 350.1.13.10 ity of [place] [facility] 4.2.7.2.686 Claude as [phone] [address] 2021-04-18 2021-04-18 Refjaswant [facility] 1.2.840.114 [id number] Univers 00:00:00 00:00:00 Qiangjun [place] 350.1.13.10 [place] of [place] [phone] Tn dical nal 9 [facility] 2021-04-18 2021-04-18 Orders Doctor ARTURO 1.2.840.114 [id number] Univers 00:00:00 00:00:00 Only Unassigned, GLENDA 350.1.13.10 ity of [place] [facility] 4.2.7.2.686 Claude as [phone] [address] 2021-04-14 2021-04-14 [facility] 1.2.840.114 [id number] Univers 00:00:00 00:00:00 Jacobjun [place] 350.1.13.10 [place] of [place] [phone] Tn dical nal 9 [facility] 2021-03-28 2021-03-28 Orders Doctor ARTURO 1.2.840.114 [id number] Univers 00:00:00 00:00:00 Only Unassigned, GLENDA 350.1.13.10 ity of [place] [facility] 4.2.7.2.686 Claude as [phone] [address] 2021-03-23 2021-03-23 (TEL) [facility] ST[facility] [id number] Co mmon 00:00:00 00:00:00 [facility] 2021-03-21 2021-03-21 (TEL) [facility] [id number] Co mmon 00:00:00 00:00:00 [facility] 2021-03-16 2021-03-16 [facility] 1.2.840.114 [id number] Univers 00:00:00 00:00:00 Qiangjun [place] 350.1.13.10 [phone] [place] dicne nal 9 [facility] 2021-03-10 2021-03-10 (TEL) [facility] [id number] Co mmon 00:00:00 00:00:00 [facility] 2021-03-08 2021-03-08 [facility]phone [facility] [id number] Univers 00:00:00 00:00:00 Vianneyghazal [place] 350.1.13.10 [place] [phone] [address] 2021-03-08 2021-03-08 Orders Doctor ARTURO 1.2.840.114 [id number] Univers 00:00:00 00:00:00 Only Unassigned, GLENDA 350.1.13.10 ity of [place] [facility] 4.2.7.2.686 Claude as [phone] [address] 2021-03-07 2021-03-07 Outpatient [facility] [id number] Univers 00:00:00 00:00:00 PETER ity of [facility] 2021-03-07 2021-03-07 [facility] 1.2.840.114 [id number] Univers 00:00:00 00:00:00 Tiffanie Sarab[place] 350.1.13.10 [place] [phone] [address] 2021-01-17 2021-01-17 [facility] [id number] Common 00:00:00 00:00:00 [facility] 2021-01-12 2021-01-12 Office [facility] 1.2.840.114 [id number] Univers 08:45:17 09:23:01 Visit Tiffanie Vargaston 350.1.13.10 ity of [place] [phone] [address] 2021-01-12 2021-01-12 Outpatient R JOHNNY, [facility] [id number] Univers 09:00:00 09:00:00 QIAKOSTA ity o f [facility] 2021-01-11 2021-01-11 Outpatient STLMLC ST[facility] [id number] Common 00:00:00 00:00:00 [facility] 2021-01-04 2021-01-04 [facility] 1.2.639.186 [id number] Univers 00:00:00 00:00:00 Qiakosta [place] 350.1.13.10 [place] [phone] [address] 2020-12-21 2020-12-21 Outpatient STLMLC STLMLC [id number] Common 00:00:00 00:00:00 [facility] 2020-12-07 2020-12-07 Outpatient R JOHNNY, [facility] [id number] Univers 09:45:00 09:45:00 QIAKOSTA ity o [facility] 2020-12-07 2020-12-07 [facility] [id number] Univers 09:20:00 09:20:00 QIAKOSTA ity o [facility] 2020-12-04 2020-12-04 Outpatient [facility] [id number] Univers 11:35:00 11:35:00 ity of [facility] 2020-12-01 2020-12-01 [facility] 1.2.840.114 [id number] Univers 00:00:00 00:00:00 Tiffanie Sarabia 350.1.13.10 [place] [phone] [address] 2020-12-01 2020-12-01 Orders Doctor MORRIS 1.2.840.114 [id number] Univers 00:00:00 00:00:00 Only Unassigned, GLENDA 350.1.13.10 [facility] 4.2.7.2.686 [place] [phone] [address] 2020-11-06 2020-11-06 Outpatient [facility] [id number] Univers 11:50:00 11:50:00 ity of [facility] 2020-10-08 2020-10-08 Outpatient STLMLC STLML[facility] [id number] Common 00:00:00 00:00:00 [facility] 2020-10-07 2020-10-07 [facility] 1.2.840.114 [id number] Univers 00:00:00 00:00:00 Tiffanie Sarabia 350.1.13.10 ity [facility] [place] [phone] [address] 2020-09-22 2020-09-22 Outpatient STLMLC STLMLC [id number] Common 00:00:00 00:00:00 [facility] 2020-09-08 2020-09-08 Outpatient STLMLC STLMLC [id number] Common 00:00:00 00:00:00 [facility] 2020-09-07 2020-09-07 Laboratory Pacemaker/Icd, [facility] 1.2. 840.114 [id number] Univers 11:14:10 12:34:18 Only Dilia Kang 350.1.13. 10 [place] [phone] [address] 2020-09-07 2020-09-07 Outpatient R [facility] [id number] Univers 11:30:00 11:30:00 ity of [facility] 2020-09-07 2020-09-07 [facility]phone [facility] 1.2.028.516 [id number] Univers 00:00:00 00:00:00 Tiffanie Sarabia 350.1.13.10 it[place] [phone] [address] 2020-08-19 2020-08-19 [facility] 1.2.840.114 [id number] 00:00:00 00:00:00 Qiangjun [place] 350.1.13.10 [place] 4.2.7.2.686 Professio [phone] [address] 2020-08-19 2020-08-[facility] 1.2.840.114 [id number] [facility] 00:00:00 00:00:00 Qiangjun [place] 350.1.13.10 [place] [phone] [address] 2020-08-04 2020-08-04 Telephone [facility] 1.2.132.151 [id number] 00:00:00 00:00:00 Qiangjun [place] 350.1.13.10 [place] 4[place]2.7.2.686 Professio [phone] [address] 2020-08-04 2020-08-04 [facility] 1.2.195.773 [id number] Univers 00:00:00 00:00:00 Qiangjun [place] 350.1.13.10 [place] [phone] [address] 2020-07-28 2020-07-28 [facility] 1.2.840.114 [id number] 00:00:00 00:00:00 Qiangjun [place] 350.1.13.10 [place] 4.2.7.2.686 Professio [phone] [address] 2020-07-28 2020-07-28 [facility] 1.2.992.096 [id number] 00:00:00 00:00:00 Qiangjun [place] 350.1.13.10 [place] 4.2.7.2.686 Professio [phone] [address] 2020-07-28 2020-07-28 [facility] 1.2.461.396 [id number] 00:00:00 00:00:00 Qiangjun Health 350.1.13.10 [place] 4.2.7.2.686 [place] [phone] [facility] Office Building 2020-07-28 2020-07-28 Refill [facility] 1.2.840.114 [id number] Univers 00:00:00 00:00:00 Tiffanie Sarabia 350.1.13.10 it[place] [phone] Tn dic[address] 2020-07-28 2020-07-28 Telephone [facility] 1.2.671.201 [id number] Univers 00:00:00 00:00:00 Tiffanie Sarabia 350.1.13.10 [place] [phone] Tn dic[address] 2020-07-28 2020-07-28 Telephone [facility] 1.2.733.153 [id number] Univers 00:00:00 00:00:00 Tiffanie Meier 350.1.13.10 i ty of [place] [phone] [address] [facility] 2020-07-14 2020-07-25 Office [facility] 1.2.840.114 [id number] 14:32:25 10:29:52 Visit Tiffanie Sarabia 350.1.13.10 [place] 4.2.7.2.686 Professio [phone] [address] 2020-07-14 2020-07-25 [facility] 1.2.840.[id number] [place] [address] 14:32:25 10:29:52 Visit Tiffanie Sarabia 350.1.13.10 it[place] [phone] Tn dical [address] 2020-07-23 2020-07-23 Appointmen Pc, Adc Vascular Room 1 - [facility] 1.2.840.114 [id number] [facility] 08:07:05 09:07:05 t Tiffanie Moran 350.1.13.10 it[place] [phone] Tn dical nal 059 [facility] 2020-07-23 2020-07-23 Appointmen Pc, [facility] Vascular Room 1 [facility] 1.2.840.114 [id number] Univers 08:06:50 09:06:50 t Johnny Jacobghazal Cornell 350.1.13.10 it[place] [phone] Tn dicne nal 9 [facility] 2020-07-23 2020-07-23 Engineering Psychologist Pc, [facility] Vascular Room 1 [facility] 1.2.840.114 [id number] Univers 08:04:49 09:04:49 Visit Tiffanie Moran 350.1.13.10 it[place] [phone] Tn dicne nal [address] [place] [address] 2020-07-23 2020-07-23 Outpatient R [facility] [id number] Univers 08:00:00 08:00:00 ity of [facility] 2020-07-15 2020-07-15 Laboratory Pc, [facility] Echo Room [address] [place] [address] 1 .2.840.114 [id number] Univers 10:05:12 10:51:12 Only Tiffanie Moran 350.1.13.10 [place] [phone] [address] 2020-07-15 2020-07-15 Outpatient R [facility] [id number] Univers 10:00:00 10:00:00 ity of [facility] 2020-07-14 2020-07-14 [facility] [id number] Univers 14:40:00 14:40:00 TIFFANIE siny o f [facility] 2020-07-14 2020-07-14 Orders Doctor MORRIS 1..840.114 [id number] Univers 00:00:00 00:00:00 Only Unassigned, GLENDA 350.1.13.10 ity of [place] [facility] 4.2.7.2.686 [place] [phone] [address] 2020-07-13 2020-07-13 [facility] [id number] Univers 14:20:00 14:20:00 TIFFANIE witt o f [facility] 2020-07-12 2020-07-12 Outpatient STLMLC STLMLC [id number] Common 00:00:00 00:00:00 [facility] 2020-07-02 2020-07-02 Outpatient STLMLC STLMLC [id number] Common 00:00:00 00:00:00 [facility] 2020-06-30 2020-06-30 Outpatient STLMLC STLMLC [id number] Common 00:00:00 00:00:00 [facility] 2020-06-28 2020-06-28 Outpatient STLMLC STLMLC [id number] Common 00:00:00 00:00:00 [facility] 2020-06-16 2020-06-16 [facility] 1.2.840.114 [id number] Univers 00:00:00 00:00:00 Tiffanie Sarabia 350.1.13.10 [place] [phone] Tn dic[address] 2020-06-11 2020-06-11 Outpatient [facility] [id number] Common 08:30:00 08:30:00 [employer] [facility] it [facility] Family [facility] 2020-06-11 2020-06-11 Orders Doctor MORRIS 1.2.840.114 [id number] Univers 00:00:00 00:00:00 Only Unassigned, GLENDA 350.1.13.10 ity of [place] [facility] 4.2.7.2.686 [place] as [phone] [address] 2020-05-28 2020-05-28 Outpatient Rupa MORAN, [facility] [id number] Univers 10:00:00 10:00:00 TIFFANIE witt o f [facility] 2020-05-06 2020-05-06 [facility]jas[facility] 1.2.840.114 [id number] Univers 00:00:00 00:00:00 Tiffanie Sarabia 350.1.13.10 [place] [phone] Tn dical nal 059 [facility] 2020-05-04 2020-05-04 Outpatient R [facility], [facility] [id number] Univers 11:20:00 11:20:00 QIANGJUN ity o f [facility] 2020-05-04 2020-05-04 Outpatient Alton Fuller [id number] Common 09:45:00 09:45:00 [facility] 2020-04-23 2020-04-23 Telephone [facility] 1.2.342.739 [id number] Univers 00:00:00 00:00:00 Qiangjun [place] 350.1.13.10 [place] [phone] Tn dicne nal 9 [facility] 2020-04-21 2020-04-21 Out[facility] [id number] Univers 09:30:00 09:30:00 QIAKOSTA ity o f [facility] 2020-04-21 2020-04-21 [facility] 1.2.276.756 [id number] Univers 00:00:00 00:00:00 Qiangjun [place] 350.1.13.10 [place] [phone] Tn dicne nal [address] [place] [address] 2020-04-21 2020-04-21 Telephone [facility] 1.2.559.422 [id number] Univers 00:00:00 00:00:00 Qiangjun [place] 350.1.13.10 [place] [phone] Tn dical nal 9 [facility] 2020-04-21 2020-04-21 Refill [facility] 1.2.840.114 [id number] Univers 00:00:00 00:00:00 Qiangjun [place] 350.1.13.10 [place] [phone] Tn dical nal 9 [facility] 2020-04-14 2020-04-14 Orders Doctor ARTURO 1.2.840.114 [id number] Univers 00:00:00 00:00:00 Only Unassigned, GLENDA 350.1.13.10 [facility] 4.2.7.2.686 [place] as [phone] [address] 2020-04-12 2020-04-12 Refill [facility] 1.2.840.114 [id number] Univers 00:00:00 00:00:00 Tiffanie Sarabia 350.1.13.10 [place] [phone] Tn dical nal 059 [facility] 2020-04-05 2020-04-05 Outpatient [facility] [id number] Common 10:30:00 10:30:00 t Specialty/U Sp shayne Specialty rology - [facility] /Urology Clinic [facility] 2020-04-02 2020-04-02 Telephone [facility] 1.2.800.800 [id number] Univers 00:00:00 00:00:00 Tiffanie Sarabia 350.1.13.10 [place] [phone] Tn dical nal 059 [facility] 2020-04-02 2020-04-02 Refill [facility] 1.2.840.114 [id number] Univers 00:00:00 00:00:00 Tiffanie Sarabia 350.1.13.10 [place] [phone] Tn dical nal 059 [facility] 2020-03-31 2020-03-31 Out[facility] [id number] Common 16:31:00 16:31:00 t [employer] [address] [facility] 2020-03-24 2020-03-24 Out[facility] [id number] Common 08:42:00 08:42:00 t [employer] [address] [facility] 2020-03-16 2020-03-16 Outpatient [facility] [id number] Common 14:43:00 14:43:[address] [facility] 2020-03-10 2020-03-10 Outpatient [facility] [id number] Common 10:45:00 10:45:[address] [facility] 2020-02-27 2020-02-27 [facility] 1.2.840.114 [id number] 00:00:00 00:00:00 Tiffanie Sarabia 350.1.13.10 [place] [phone] Tn dical nal 059 [facility] 2020-02-24 2020-02-24 [facility] 1.2.840.114 [id number] 00:00:00 00:00:00 Tiffanie Sarabia 350.1.13.10 [place] [phone] Tn dical nal 9 [facility] 2020-02-04 2020-02-04 Out[facility] [id number] Common 14:00:00 14:00:[address] [facility] 2020-02-04 2020-02-04 Outpatient [facility] 29 [id number] Common 14:00:00 14:00:[address] [facility] 2020-01-12 2020-01-12 Outpatient R JOHNNY [facility] [id number] Univers 10:20:00 10:20:00 TIFFANIE ity o f [facility] 2020-01-12 2020-01-12 [facility]ici [facility] 1.2.840.114 [id number] Univers 08:02:05 08:22:05 ne Visit Tiffanie Sarabia 350.1.13.10 [place] [phone] Tn dical nal 059 [facility] 2020-01-12 2020-01-12 [facility] 1.2.840.114 [id number] Univers 00:00:00 00:00:00 Tiffanie Sarabia 350.1.13.10 [place] [phone] Tn dical nal 9 [facility] 2020-01-05 2020-01-05 Outpatient [facility] [id number] Common 10:00:00 10:00:00 t Specialty/U Sp shayne Specialty rology - [facility] 2019-11-28 2019-12-17 Nurse Visit, [facility] Nurse [facility] 1.2.840.1 14 [id number] Univers 09:13:12 22:46:30 Visit Dilia Kang 350.1.13. 10 it[place] of [place] [phone] Tn dicne nal [address] [place] [address] 2019-12-15 2019-12-15 Outpatient R JOHNNY [facility] [id number] Univers 09:20:00 09:20:00 TIFFANIE siny o f [facility] 2019-12-10 2019-12-10 Outpatient [facility] [id number] Common 10:15:00 10:15:00 t [employer] [facility] it Drive [facility] 2019-12-09 2019-12-09 Outpatient [facility] [id number] Common 13:15:00 13:15:00 t [employer] [facility] it Drive [facility] 2019-11-28 2019-11-28 Outpatient R [facility] [id number] Univers 09:15:00 09:15:00 ity of [facility] 2019-11-28 2019-11-28 Orders Doctor MORRIS 1.2.840.114 [id number] Univers 00:00:00 00:00:00 Only Unassigned, GLENDA 350.1.13.10 ity of [place] [facility] 4.2.7.2.686 [place] as [phone] [address] 2019-11-03 2019-11-23 Office Johnny [facility] 1.2.840.114 [id number] Univers 13:02:51 13:14:44 Visit Tiffanie Sarabia 350.1.13.10 [place] [phone] Tn dical nal 059 [facility] 2019-11-10 2019-11-10 Outpatient [facility] [id number] Common 09:06:00 09:06:00 t Specialty/U Sp shayne Specialty rology - [facility] 2019-11-06 2019-11-06 Outpatient [facility] 29 [id number] Common 11:29:00 11:29:00 t Specialty/U Sp shayne Specialty rology - [facility] 2019-11-05 2019-11-05 [facility] 1.2.848.027 [id number] Univers 00:00:00 00:00:00 Tiffanie Sarabia 350.1.13.10 [place] [phone] [place] 741439 [facility] 2019-11-03 2019-11-03 Outpatient [facility] [id number] Univers 13:00:00 13:00:00 TIFFANIE siny o f [facility] 2019-11-03 2019-11-03 Orders Doctor MORRIS 1.2.840.114 [id number] Univers 00:00:00 00:00:00 Only Unassigned, GLENDA 350.1.13.10 ity of [place] [facility] 4.2.7.2.686 Claude as [phone] [facility] [address] 2019-10-27 2019-10-27 Outpatient [facility] [facility] 29 [id number] Common 16:27:00 16:27:00 t Specialty/U Sp shayne Specialty rology - [facility] 2019-10-27 2019-10-27 [facility] 1.2.840.114 [id number] Univers 00:00:00 00:00:00 (Out) Neurology Health 350.1.13.10 ity of [place] 4.2.7.2.686 [place] [phone] [facility][note 3] [address] Office Building 2019-10-23 2019-10-23 Outpatient [facility] [id number] Common 10:45:00 10:45:00 t Specialty/U Sp shayne Specialty rology - [facility] 2019-10-23 2019-10-23 Outpatient [facility] 29 [id number] Common 08:45:00 08:45:[address] [facility] 2019-10-06 2019-10-06 Outpatient [facility] [id number] Common 10:30:00 10:30:00 t Specialty/U Sp shayne Specialty rology - [facility] 2019-09-22 2019-09-22 Outpatient [facility] [id number] Common 10:43:00 10:43:00 t Thompson Thompson Yamsafer Spir it [address] [facility] 2019-09-10 2019-09-10 Outpatient [facility] [id number] Common 15:00:00 15:00:00 t Thompson Thompson Yamsafer Sp[address] [facility] 2019-09-10 2019-09-10 Outpatient [facility] [id number] Common 10:45:00 10:45:00 t Specialty/U Sp shayne Specialty rology - [facility] 2019-09-03 2019-09-03 Outpatient [facility] [id number] Common 09:30:00 09:30:00 t Thompson Thompson Yamsafer Spir [address] [facility] 2019-08-27 2019-08-27 Outpatient [facility] [id number] Common 11:30:00 11:30:00 t Specialty/U Sp shayne Specialty rology - [facility] 2019-08-20 2019-08-20 Outpatient [facility] [id number] Common 16:09:00 16:09:[address] [facility] 2019-07-10 2019-07-10 Outpatient [facility] [id number] Common 11:00:00 11:00:[address] [facility] 2019-07-09 2019-07-09 Outpatient Rupa JOHNNY, [facility] [id number] Univers 10:40:00 11:12:47 TIFFANIE siny o f [facility] 2019-07-03 2019-07-03 Outpatient [facility] [id number] Common 08:00:00 08:00:[address] [facility] 2019-05-23 2019-06-12 Nurse Visit, Adc Nurse [facility] 1.2.840.1 14 [id number] [facility] 08:03:32 14:10:44 Visit Dilia Kang 350.1.13. 10 ity of [place] 4.2.7.2.686 Monique Sarabia [phone] [address] 2019-06-12 2019-06-12 Outpatient [facility] [id number] Common 11:22:00 11:22:[address] [facility] 2019-06-10 2019-06-10 Outpatient [facility] [id number] Common 11:15:00 11:15:[address] [facility] 2019-06-04 2019-06-04 Outpatient [facility] [id number] Common 15:22:00 15:22:[address] [facility] 2019-06-04 2019-06-04 Outpatient [facility] [id number] Common 08:15:00 08:15:[address] [facility] 2019-06-03 2019-06-03 Outpatient [facility] [id number] Common 09:30:00 09:30:[address] [facility] 2019-05-23 2019-05-23 Orders Doctor MORRIS 1.2.840.114 [id number] Univers 00:00:00 00:00:00 Only Unassigned, GLENDA 350.1.13.10 ity of [place] [facility] 4.2.7.2.686 Claude as [phone] [address] 2019-05-15 2019-05-15 Outpatient [facility] [id number] Common 16:23:00 16:23:[address] [facility] 2019-03-27 2019-03-27 Outpatient [facility] [id number] Common 13:11:00 13:11:[address] [facility] 2019-03-27 2019-03-27 Outpatient [facility] [id number] Common 10:15:00 10:15:[address] [facility] 2019-03-19 2019-03-19 Outpatient [facility] [id number] Common 14:30:00 14:30:[address] [facility] 2018-12-31 2018-12-31 Outpatient Rupa MORAN, [facility] [id number] Univers 10:00:00 10:51:21 TIFFANIE siny o f [facility] 2018-12-25 2018-12-25 Outpatient [facility] [id number] Common 16:00:00 16:00:[address] [facility] 2018-11-06 2018-11-06 Outpatient [facility] [id number] Common 08:00:00 08:00:[address] [facility] 2018-10-02 2018-10-02 Outpatient [facility] [id number] Common 15:45:00 15:45:[address] [facility] 2018-03-21 2018-03-21 Outpatient [facility] [id number] Common 08:15:00 08:15:[address] [facility] 2017-12-19 2017-12-19 Outpatient [facility] 13 [id number] Common 08:45:00 08:45:[address] [facility] Results Test Description Test Time Test Comments Results Result Comments Source HEMOGLOBIN A1C 2022-08-18 00:00:00 Test Item Value Reference Range Interpretation Comme nts A1C (test code = 4548-4) 9.4 HEMOGLOBIN [id number] 00:00:00 Test Item Value Reference Range Interpretation Comments A1C (test code = 4548-4) 9.6 POCT-GLUCOSE [id number] 08:24:00 Test Item Value Reference Range Interpretation Comments POC-GLUCOSE METER 166 mg/dL 70-110 H : Notified RN/MD: ([facility]) (test code = TESTED AT [place] [address] 1538) [facility], [address]: Retail Performance Coach/Techni danay ID = [id number] for MANSI CAGLE POCT-GLUCOSE [id number] 22:46:00 Test Item Value Reference Range Interpretation Comments POC-GLUCOSE METER 173 mg/dL 70-110 H : TESTED A T [facility] 6720 ([facility]) (test code = [facility], 1538) [address]: Retail Performance Coach/Techni danay ID = [id number] for Geovanny Xavier se POCT-GLUCOSE [id number] 18:44:00 Test Item Value Reference Range Interpretation Comments POC-GLUCOSE METER 185 mg/dL 70-110 H : [facility] ([facility]) (test code = [facility], 1538) [address]67: Retail Performance Coach/Techni danay ID = [id number] for CO RTEZ, SHELLY POCT-GLUCOSE [id number] 17:05:00 Test Item Value Reference Range Interpretation Comments POC-GLUCOSE METER 214 mg/dL 70-110 H : [facility] ([facility]) (test code = [facility], 153) [address]199: Retail Performance Coach/Techni danay ID = [id number] for CO RTEZ, SHELLY CBC W/PLT COUNT & AUTO [id number] 16:37:00 Test Item Value Reference Range Interpretation Comments WHITE BLOOD CELL COUNT ([facility]) 8.7 K/ L 3.5-10.5 (test code = 775) RED BLOOD CELL COUNT ([facility]) 2.79 M/ L 4.63-6.08 L (test code = 761) HEMOGLOBIN ([facility]) (test code = 9.0 GM/DL 13.7-17.5 L [...] PERCENT (BEAKER) (test code = 2801) POCT-GLUCOSE [id number] 14:13:00 Test Item Value Reference Range Interpretation Comments POC-GLUCOSE METER 194 mg/dL 70-110 H : TESTED Shereen Huerta [facility] 6720 (BEAKER) (test code = [place], 1538) [address]: Retail Performance Coach/Techni danay ID = [id number] for TEO SPENCE POCT-GLUCOSE [id number] 12:08:00 Test Item Value Reference Range Interpretation Comments POC-GLUCOSE METER 228 mg/dL 70-110 H : TESTED A T [facility] 6720 (BEAKER) (test code = [facility] [employer], 1538) [id number]: Retail Performance Coach/Techni danay ID = [id number] for HCAPO HERNANDEZ [id number] 10:00:00 Test Item Value Reference Range Interpretation Comments PHOSPHORUS (BEAKER) (test code = 2.7 mg/dL 2.3-4.7 604) [id number] 10:00:00 Test Item Value Reference Range Interpretation Comments MAGNESIUM (BEAKER) (test code = 1.6 mg/dL 1.6-2.6 627) BASIC METABOLIC [id number] 10:00:00 Test Item Value Reference Range Interpretation [...] NOT APPLICABLE FOR DIALYSIS PATIEN TS. POCT-GLUCOSE [id number] 07:47:00 Test Item Value Reference Range Interpretation Comments POC-GLUCOSE METER 146 mg/dL 70-110 H : TESTED A T [facility] 6720 (BEAKER) (test code = [facility], 1538) 65735: Retail Performance Coach/Techni danay ID = [id number] for CHAPO HERNANDEZ POCT-GLUCOSE [id number] 21:28:00 Test Item Value Reference Range Interpretation Comments POC-GLUCOSE METER 218 mg/dL 70-110 H : TESTED A T [facility] 6720 (BEAKER) (test code = [facility], 1538) 33566: Retail Performance Coach/Techni danay ID = [id number] for PE RALES, JUN POCT-GLUCOSE [id number] 18:40:00 Test Item Value Reference Range Interpretation Comments POC-GLUCOSE METER 328 mg/dL 70-110 H : TESTED A T [facility] 6720 (BEAKER) (test code = [facility], 1538) 27221: Retail Performance Coach/Techni danay ID = [id number] for JOSEFINA CHRIS POCT-GLUCOSE [id number] 18:30:00 Test Item Value Reference Range Interpretation Comments POC-GLUCOSE METER 304 mg/dL 70-110 H : TESTED A T [facility] 6720 (BEAKER) (test code = [facility], 153) 74609: Retail Performance Coach/Techni danay ID = [id number] for JIMENA MCKEON RAD, CHEST, 1 VIEW, NON [id number] 12:14:00Reason for exam:->Post ACBShould this be performed [...] MDReport Verified Date/Time: 07/24/2019 12:14:16 Reading Location: [facility] Radiology Reading Room POCT-GLUCOSE [id number] 12:09:00 Test Item Value Reference Range Interpretation Comments POC-GLUCOSE METER 290 mg/dL 70-110 H : TESTED A T [facility] 6720 (BEAKER) (test code = [facility], 1538) 45217: Retail Performance Coach/Techni danay ID = [id number] for JIMENA MCKEON POCT-GLUCOSE [id number] 08:25:00 Test Item Value Reference Range Interpretation Comments POC-GLUCOSE METER 186 mg/dL 70-110 H : [facility] (BEAKER[facility] (test code = [place], 1538) 607[address]: Retail Performance Coach/Techni danay ID = [id number] for JIMENA MCKEON OXYGEN SATURATION, [id number] 06:48:00 Test Item Value Reference Range Interpretation Comments O2 SATURATION (MEASURED) (BEAKER) 97.6 % (test code = 1455) [id number] 04:48:00 Test Item Value Reference Range Interpretation Comments PHOSPHORUS (BEAKER) (test code = 1.4 mg/dL 2.3-4.7 LL 604) [id number] 04:42:00 Test Item Value Reference Range Interpretation Comments MAGNESIUM (BEAKER) (test code = 1.8 mg/dL 1.6-2.6 627) BASIC METABOLIC [id number] 04:42:00 Test Item Value Reference Range Interpretation [...] PATIEN TS. CBC W/PLT COUNT & AUTO [id number] 04:17:00 Test Item Value Reference Range Interpretation [...] PERCENT (BEAKER) (test code = 2801) POCT-GLUCOSE [id number] 21:21:00 Test Item Value Reference Range Interpretation Comments POC-GLUCOSE METER 277 mg/dL 70-110 H : TESTED A T [facility] 6720 ([facility]) (test code = [facility], 1538) 20530: Retail Performance Coach/Techni danay ID = [id number] for PE RALES, JUN POCT-GLUCOSE [id number] 17:11:00 Test Item Value Reference Range Interpretation Comments POC-GLUCOSE METER 272 mg/dL 70-110 H : TESTED A T [facility] 6720 ([facility]) (test code = [facility], 1538) 55276: Retail Performance Coach/Techni danay ID = [id number] for JIMENA MCKEON POCT-GLUCOSE [id number] 12:53:00 Test Item Value Reference Range Interpretation Comments POC-GLUCOSE METER 214 mg/dL 70-110 H : Notified RN/MD: ([facility]) (test code = [facility] 67[facility] 1538) [facility], 97896: Retail Performance Coach/Techni danay ID = [id number] for CHAPO HERNANDEZ POCT-GLUCOSE [id number] 12:51:00 Test Item Value Reference Range Interpretation Comments POC-GLUCOSE METER 310 mg/dL 70-110 H : [facility] ([facility]) (test code = [facility], 1538) 48415: Retail Performance Coach/Techni danay ID = [id number] for JIMENA MCKEON RAD, CHEST, 1 VIEW, NON [id number] 09:52:00Reason for exam:->Post ACBShould this be performed at the bedside?->YesFINAL REPORT CLINICAL HISTORY: Post ACB TECHNIQUE: 1 view of the chest. COMPARISON: 07/22/2019 IMPRESSION: The lines and tubes have been removed. There is a new trace left apical pneumothorax, for which attention on follow-up is recommended. Pulmonary vascular congestion appears decreased. Left lung base opacity is otherwise unchanged. The cardiomediastinal silhouette is magnified by technique with sternotomy wires and a pacemaker. Signed: Laura Leyva MDReport Verified Date/Time: 07/23/2019 09:52:55 Reading Location: [facility] Reading Room POCT- GLUCOSE [id number] 07:50:00 Test Item Value Reference Range Interpretation Comments POC-GLUCOSE METER 209 mg/dL 70-110 H : [facility] (BEAKER) (test code = [place], 1538) 226[address]: Retail Performance Coach/Techni danay ID = [id number] for JIMENA MCKEON [id number] 06:47:00 Test Item Value Reference Range Interpretation Comments PHOSPHORUS (BEAKER) (test code = 2.4 mg/dL 2.3-4.7 604) [id number] 06:47:00 Test Item Value Reference Range Interpretation Comments MAGNESIUM (BEAKER) (test code = 2.0 mg/dL 1.6-2.6 627) BASIC METABOLIC [id number] 06:47:00 Test Item Value Reference Range Interpretation [...] APPLICABLE FOR DIALYSIS PATIEN TS. OXYGEN SATURATION, [id number] 06:02:00 Test Item Value Reference Range Interpretation Comments O2 SATURATION (MEASURED) (BEAKER) 74.3 % (test code = 1455) CBC W/PLT COUNT & AUTO [id number] 05:44:00 Test Item Value Reference Range Interpretation [...] 417) IMMATURE GRANULOCYTES-RELATIVE 1 % 0-1 PERCENT ([facility]) (test code = 2801) POCT-GLUCOSE [id number] 21:26:00 Test Item Value Reference Range Interpretation Comments POC-GLUCOSE METER 259 mg/dL 70-110 H : TESTED A T [place] [address] ([facility]) (test code = [facility] Good[place] [facility], 1538) 78486: Retail Performance Coach/Techni danay ID = [id number] for VITOR HACKETT POCT-GLUCOSE [id number] 12:05:00 Test Item Value Reference Range Interpretation Comments POC-GLUCOSE METER 142 mg/dL 70-110 H TESTED AT [place] [address] ([facility]) (test code = [facility] [place] [facility] 1538) [address] POCT-GLUCOSE [id number] 12:01:00 Test Item Value Reference Range Interpretation Comments POC-GLUCOSE METER 146 mg/dL 70-110 H TESTED AT [place] [address] ([facility]) (test code = [facility] [place] [facility] 1538) [address] POCT-GLUCOSE [id number] 12:01:00 Test Item Value Reference Range Interpretation Comments POC-GLUCOSE METER 159 mg/dL 70-110 H TESTED AT [place] [address] ([facility]) (test code = [facility] [place] [facility] 1538) [address] POCT-GLUCOSE [id number] 07:46:00 Test Item Value Reference Range Interpretation Comments POC-GLUCOSE METER 144 mg/dL 70-110 H TESTED AT [place] [address] ([facility]) (test code = [facility] [place] [facility] 1538) [address] POCT-GLUCOSE [id number] 07:46:00 Test Item Value Reference Range Interpretation Comments POC-GLUCOSE METER 139 mg/dL 70-110 H TESTED AT [place] [address] ([facility]) (test code = [facility] 1538) [address] POCT-GLUCOSE [id number] 07:46:00 Test Item Value Reference Range Interpretation Comments POC-GLUCOSE METER 154 mg/dL 70-110 H TESTED AT [place] [address] ([facility]) (test code = [facility] 1538) [address] RAD, CHEST, 1 VIEW, NON [id number] 06:51:00Reason for exam:->Post ACBShould this be performed at the bedside?->YesFINAL REPORT CLINICAL INDICATION: Postop Comparison: 07/21/2019 The cardiomedias tinal contours are stable. The lung volumes remain low but are stable after extubation. Central pulmonary vascular congestion and bilateral parenchymal and left pleural opacities are similar to previous. There is no pneumothorax. Remaining support lines are stable. Signed: Adriano Barrera MDReport Verified Date/Time: 07/22/2019 06:51:04 [id number] 04:53:00 Test Item Value Reference Range Interpretation Comments PHOSPHORUS (BEAKER) (test code = 3.0 mg/dL 2.3-4.7 604) [id number] 04:53:00 Test Item Value Reference Range Interpretation Comments MAGNESIUM (BEAKER) (test code = 1.5 mg/dL 1.6-2.6 L 627) BASIC METABOLIC [id number] 04:53:00 Test Item Value Reference Range Interpretation [...] APPLICABLE FOR DIALYSIS PATIEN TS. BLOOD GAS, [id number] 04:50:00 Test Item Value Reference Range Interpretation [...] code = 1819) 36.0 % LACTIC ACID, [id number] 04:46:00 Test Item Value Reference Range Interpretation Comments LACTATE BLOOD ARTERIAL (2) 1.2 mmol/L 0.5-2.2 (BEAKER) (test code = 2874) CBC W/PLT COUNT & AUTO [id number] 04:43:00 Test Item Value Reference Range Interpretation [...] (BEAKER) (test code = 2801) OXYGEN SATURATION, [id number] 04:38:00 Test Item Value Reference Range Interpretation Comments O2 SATURATION (MEASURED) (BEAKER) 68.2 % (test code = 1455) CALCIUM, [id number] 04:35:00 Test Item Value Reference Range Interpretation Comments CALCIUM IONIZED (BEAKER) (test 1.14 mmol/L 1.12-1.27 code = 698) PH, BLOOD (BEAKER) (test code = 7.37 1810) POCT-GLUCOSE [id number] 04:10:00 Test Item Value Reference Range Interpretation Comments POC-GLUCOSE METER 145 mg/dL 70-110 H TESTED AT [facility] 6720 (BEAKER) (test code = [place] 1538) [address] POCT-GLUCOSE [id number] 04:10:00 Test Item Value Reference Range Interpretation Comments POC-GLUCOSE METER 136 mg/dL 70-110 H TESTED AT [facility] 6720 (BEAKER) (test code = [place] 1538) [address] POCT-GLUCOSE [id number] 23:42:00 Test Item Value Reference Range Interpretation Comments POC-GLUCOSE METER 133 mg/dL 70-110 H TESTED AT [facility] 6720 (BEAKER) (test code = [place] 1538) [address] POCT-GLUCOSE [id number] 23:42:00 Test Item Value Reference Range Interpretation Comments POC-GLUCOSE METER 163 mg/dL 70-110 H TESTED AT [facility] 6720 (BEAKER) (test code = [place] 1538) [address] POCT-GLUCOSE [id number] 23:42:00 Test Item Value Reference Range Interpretation Comments POC-GLUCOSE METER 170 mg/dL 70-110 H TESTED AT [facility] 6720 (BEAKER) (test code = [place] 1538) [address] LACTIC ACID, [id number] 21:25:00 Test Item Value Reference Range Interpretation Comments LACTATE BLOOD ARTERIAL (2) 1.3 mmol/L 0.5-2.2 (BEAKER) (test code = 2874) CALCIUM, [id number] 21:12:00 Test Item Value Reference Range Interpretation Comments CALCIUM IONIZED (BEAKER) (test 1.15 mmol/L 1.12-1.27 code = 698) PH, BLOOD (BEAKER) (test code = 7.39 1810) BLOOD GAS, [id number] 21:12:00 Test Item Value Reference Range Interpretation [...] (BEAKER) (test code = 1819) 4L GLUCOSE-STAT [id number] 21:12:00 Test Item Value Reference Range Interpretation Comments GLUCOSE RANDOM (BEAKER) (test code 162 mg/dL 70-110 H = 652) HGB/HCT (H&H) - STAT [id number] 21:12:00 Test Item Value Reference Range Interpretation Comments HEMOGLOBIN (BEAKER) (test code = 9.7 g/dL 13.0-16.8 L 410) HEMATOCRIT (BEAKER) (test code = 29.0 % 40.0-50.0 L 411) OXYGEN SATURATION, [id number] 21:11:00 Test Item Value Reference Range Interpretation Comments O2 SATURATION (MEASURED) (BEAKER) 65.2 % (test code = 1455) SODIUM NA-STAT [id number] 21:11:00 Test Item Value Reference Range Interpretation Comments SODIUM (BEAKER) (test code = 381) 135 meq/L 135-148 POTASSIUM-STAT [id number] 21:11:00 Test Item Value Reference Range Interpretation Comments POTASSIUM (BEAKER) (test code = 3.8 meq/L 3.6-5.5 379) POCT-GLUCOSE [id number] 18:34:00 Test Item Value Reference Range Interpretation Comments POC-GLUCOSE METER 191 mg/dL 70-110 H [facility] [place] [address] [facility] (test code = [facility] [place] [facility] 1538) [address] POCT-GLUCOSE [id number] 18:17:00 Test Item Value Reference Range Interpretation Comments POC-GLUCOSE METER 188 mg/dL 70-110 H TESTED AT [place] [address] ([facility]) (test code = [place] Good[place] [facility] 1538) [address] POCT-GLUCOSE [id number] 17:55:00 Test Item Value Reference Range Interpretation Comments POC-GLUCOSE METER 198 mg/dL 70-110 H [facility] AT [place] [address] [facility] (test code = [facility] Goode [facility] 1538) [address] BLOOD GAS, [id number] 15:28:00 Test Item Value Reference Range Interpretation [...] (test code = 1819) 40.0 % GLUCOSE-STAT [id number] 15:28:00 Test Item Value Reference Range Interpretation Comments GLUCOSE RANDOM (BEAKER) (test code 203 mg/dL 70-110 H = 652) HGB/HCT (H&H) - STAT [id number] 15:28:00 Test Item Value Reference Range Interpretation Comments HEMOGLOBIN (BEAKER) (test code = 9.5 g/dL 13.0-16.8 L 410) HEMATOCRIT (BEAKER) (test code = 28.0 % 40.0-50.0 L 411) SODIUM NA-STAT [id number] 15:27:00 Test Item Value Reference Range Interpretation Comments SODIUM (BEAKER) (test code = 381) 135 meq/L 135-148 POTASSIUM-STAT [id number] 15:27:00 Test Item Value Reference Range Interpretation Comments POTASSIUM (BEAKER) (test code = 3.5 meq/L 3.6-5.5 L 379) POCT-GLUCOSE [id number] 14:10:00 Test Item Value Reference Range Interpretation Comments POC-GLUCOSE METER 231 mg/dL 70-110 H TESTED AT [facility] 6720 ([facility]) (test code = [place] 1538) [address] RAD, CHEST, 1 VIEW, NON [id number] 13:24:00Reason for exam:->Post ACBShould this be performed at the bedside?->YesFINAL REPORT CLINICAL HISTORY: Post ACB TECHNIQUE: 1 view of the chest. COMPARISON: 07/20/2019 IMPRESSION: The patient is status post median sternotomy with an endotracheal tube atthe clavicles, a right Bradner-Dontrell catheter with its tip directed in the pulmonary outflow tract, a nasogastric tube in the stomach, and left-sided chest tubes. There is no pneumothorax. There is new pulmonary vascular congestion. There is new left lower lung consolidation. Pleural effusions cannot be excluded. A pacemaker is again seen. Signed: Laura Leyva MDReport Verified Date/Time: 07/21/2019 13:24:31 Reading Location: [facility] Radiology Reading Room [id number] 13:15:00 Test Item Value Reference Range Interpretation Comments MAGNESIUM (BEAKER) 1.4 mg/dL 1.6-2.6 L Specimen slightly (test code = 627) hemolyzed [id number] 13:15:00 Test Item Value Reference Range Interpretation Comments PHOSPHORUS (BEAKER) 2.2 mg/dL 2.3-4.7 L Specimen slightly (test code = 604) hemolyzed [id number] 13:15:00 Test Item Value Reference Range Interpretation Comments POTASSIUM (BEAKER) 3.9 meq/L 3.5-5.1 Specimen slightly (test code = 379) hemolyzed [id number] 13:15:00 Test Item Value Reference Range Interpretation Comments GLUCOSE RANDOM (BEAKER) (test code 233 mg/dL 70-105 H = 652) BASIC METABOLIC [id number] 13:15:00 Test Item Value Reference Range Interpretation [...] APPLICABLE FOR DIALYSIS PATIEN TS. LACTIC ACID, [id number] 13:12:00 Test Item Value Reference Range Interpretation Comments LACTATE BLOOD 1.7 mmol/L 0.5-2.2 Specimen sligh tly ARTERIAL (2) (BEAKER) hemoly zed (test code = 2874) PROTHROMBIN [id number] 13:04:00 Test Item Value Reference Range Interpretation Comments PROTIME (BEAKER) (test code = 17.2 seconds 11.9-14.2 H 759) INR (BEAKER) (test code = 370) 1.5 <=5.9 Effective 02/26/2019: PT Reference Range ChangeNew: 11.9-14.2 Previous: 11.7- 14.7RECOMMENDED COUMADIN/WARFARIN INR THERAPY RANGESSTANDARD DOSE: 2.0-3.0 Includes: PROPHYLAXIS for venous thrombosis, systemic embolization; TREATMENT for venous thrombosis and/or pulmonary embolus.HIGH RISK: Target INR is 2.5-3.5 for patients wiht mechanical heart valves.[id number] 13:04:00 Test Item Value Reference Range Interpretation Comments FIBRINOGEN LEVEL (BEAKER) (test 257 mg/dl 225-434 code = 658) [id number] 13:04:00 Test Item Value Reference Range Interpretation Comments PARTIAL THROMBOPLASTIN TIME 33.1 seconds 22.5-36.0 (BEAKER) (test code = 760) [id number] 12:57:00 Test Item Value Reference Range Interpretation Comments ACTIVATED CLOTTING TIME 109 sec Refe rence Range: 74-137 (BEAKER) (test code = second s, 441) Baseline/TESTED AT [place] [id number] [facility] [address] [id number] 12:57:00 Test Item Value Reference Range Interpretation Comments ACTIVATED CLOTTING TIME 532 sec Refe rence Range: 74-137 (BEAKER) (test code = second s, 441) Baseline/TESTED AT [facility] 6720 [facility] [address] [id number] 12:57:00 Test Item Value Reference Range Interpretation Comments ACTIVATED CLOTTING TIME 483 sec Refe rence Range: 74-137 (BEAKER) (test code = second s, 441) Baseline/TESTED AT [facility] [address] [facility] [place] [address] [id number] 12:57:00 Test Item Value Reference Range Interpretation Comments ACTIVATED CLOTTING TIME > sec Refe rence Range: 74-137 (BEAKER) (test code = second s, Baseline/OUTSIDE 441) MEASURING RANGE TESTED AT [facility] [address] [facility] [place] [address] 0 CALCIUM, [id number] 12:53:00 Test Item Value Reference Range Interpretation Comments CALCIUM IONIZED (BEAKER) (test 1.11 mmol/L 1.12-1.27 L code = 698) PH, BLOOD (BEAKER) (test code = 7.32 1810) BLOOD GAS, [id number] 12:53:00 Test Item Value Reference Range Interpretation [...] 60.0 % CBC W/PLT COUNT & AUTO [id number] 12:51:00 Test Item Value Reference Range Interpretation [...] (BEAKER) (test code = 2801) OXYGEN SATURATION, [id number] 12:50:00 Test Item Value Reference Range Interpretation Comments O2 SATURATION (MEASURED) (BEAKER) 83.0 % (test code = 1455) BLOOD GAS, [id number] 10:53:00 Test Item Value Reference Range Interpretation [...] code = 1819) 100.0 % SODIUM NA-STAT [id number] 10:53:00 Test Item Value Reference Range Interpretation Comments SODIUM (BEAKER) (test code = 381) 130 meq/L 135-148 L GLUCOSE-STAT [id number] 10:53:00 Test Item Value Reference Range Interpretation Comments GLUCOSE RANDOM (BEAKER) (test code 248 mg/dL 70-110 H = 652) HGB/HCT (H&H) - STAT [id number] 10:53:00 Test Item Value Reference Range Interpretation Comments HEMOGLOBIN (BEAKER) (test code = 9.0 g/dL 13.0-16.8 L 410) HEMATOCRIT (BEAKER) (test code = 26.0 % 40.0-50.0 L 411) POTASSIUM-STAT [id number] 10:52:00 Test Item Value Reference Range Interpretation Comments POTASSIUM (BEAKER) (test code = 4.3 meq/L 3.6-5.5 379) CALCIUM, [id number] 10:51:00 Test Item Value Reference Range Interpretation Comments CALCIUM IONIZED (BEAKER) (test 1.24 mmol/L 1.12-1.27 code = 698) PH, BLOOD (BEAKER) (test code = 7.42 1810) BLOOD GAS, [id number] 10:03:00 Test Item Value Reference Range Interpretation Comments PH ARTERIAL (BEAKER) (test code = 7.40 7.35-7.45 383) PCO2 ARTERIAL (BEAKER) (test code 37 mmHg 35-45 = 384) PO2 ARTERIAL (BEAKER) (test code 249 mmHg 80-90 H = 385) O2 SATURATION ARTERIAL (BEAKER) 99.6 % 96.0-97.0 H (test code = 386) HCO3 ARTERIAL (BEAKER) (test code 24 mmol/L -29 = 388) BASE EXCESS ARTERIAL (BEAKER) -2.2 mmol/L -2.0-3.0 L (test code = 387) PATIENT TEMPERATURE (BEAKER) 32.0 C (test code = 1818) FIO2 (BEAKER) (test code = 1819) 70.0 % SODIUM NA-STAT [id number] 10:03:00 Test Item Value Reference Range Interpretation Comments SODIUM (BEAKER) (test code = 381) 132 meq/L 135-148 L GLUCOSE-STAT [id number] 10:03:00 Test Item Value Reference Range Interpretation Comments GLUCOSE RANDOM (BEAKER) (test code 239 mg/dL 70-110 H = 652) HGB/HCT (H&H) - STAT [id number] 10:03:00 Test Item Value Reference Range Interpretation Comments HEMOGLOBIN (BEAKER) (test code = 8.5 g/dL 13.0-16.8 L 410) HEMATOCRIT (BEAKER) (test code = 25.0 % 40.0-50.0 L 411) POTASSIUM-STAT [id number] 10:02:00 Test Item Value Reference Range Interpretation Comments POTASSIUM (BEAKER) (test code = 5.5 meq/L 3.6-5.5 379) HGB/HCT (H&H) - STAT [id number] 09:38:00 Test Item Value Reference Range Interpretation Comments HEMOGLOBIN (BEAKER) (test code = 8.4 g/dL 13.0-16.8 L 410) HEMATOCRIT (BEAKER) (test code = 25.0 % 40.0-50.0 L 411) POTASSIUM-STAT [id number] 09:37:00 Test Item Value Reference Range Interpretation Comments POTASSIUM (BEAKER) (test code = 4.9 meq/L 3.6-5.5 379) BLOOD GAS, [id number] 09:37:00 Test Item Value Reference Range Interpretation [...] (test code = 1819) 80.0 % GLUCOSE-STAT [id number] 09:37:00 Test Item Value Reference Range Interpretation Comments GLUCOSE RANDOM (BEAKER) (test code 258 mg/dL 70-110 H = 652) SODIUM NA-STAT [id number] 09:37:00 Test Item Value Reference Range Interpretation Comments SODIUM (BEAKER) (test code = 381) 132 meq/L 135-148 L GLUCOSE-STAT [id number] 09:16:00 Test Item Value Reference Range Interpretation Comments GLUCOSE RANDOM (BEAKER) (test code 179 mg/dL 70-110 H = 652) POTASSIUM-STAT [id number] 08:35:00 Test Item Value Reference Range Interpretation Comments POTASSIUM (BEAKER) (test code = 4.2 meq/L 3.6-5.5 379) BLOOD GAS, [id number] 08:35:00 Test Item Value Reference Range Interpretation [...] code = 1819) 100.0 % SODIUM NA-STAT [id number] 08:35:00 Test Item Value Reference Range Interpretation Comments SODIUM (BEAKER) (test code = 381) 134 meq/L 135-148 L GLUCOSE-STAT [id number] 08:35:00 Test Item Value Reference Range Interpretation Comments GLUCOSE RANDOM (BEAKER) (test code 256 mg/dL 70-110 H = 652) HGB/HCT (H&H) - STAT [id number] 08:35:00 Test Item Value Reference Range Interpretation Comments HEMOGLOBIN (BEAKER) (test code = 12.5 g/dL 13.0-16.8 L 410) HEMATOCRIT (BEAKER) (test code = 37.0 % 40.0-50.0 L 411) CALCIUM, [id number] 08:34:00 Test Item Value Reference Range Interpretation Comments CALCIUM IONIZED (BEAKER) (test 1.22 mmol/L 1.12-1.27 code = 698) PH, BLOOD (BEAKER) (test code = 7.36 1810) POCT-GLUCOSE [id number] 05:41:00 Test Item Value Reference Range Interpretation Comments POC-GLUCOSE METER 283 mg/dL 70-110 H TESTED AT [facility] 6720 (BEAKER) (test code = [place] 1538) [address] [id number] 05:31:00 Test Item Value Reference Range Interpretation Comments MAGNESIUM (BEAKER) 1.7 mg/dL 1.6-2.6 Specimen slightly (test code = 627) hemolyzed BASIC METABOLIC [id number] 05:31:00 Test Item Value Reference Range Interpretation [...] PATIEN TS. CBC W/PLT COUNT & AUTO [id number] 05:14:00 Test Item Value Reference Range Interpretation [...] = 2801) RAD, CHEST, 1 VIEW, NON [id number] 02:56:00Reason for exam:->pre opShould this be performed at the bedside?->YesFINAL REPORT History: Preoperative evaluation, surgery unspecified. Comparison:None. Findings: A single view of the chest is submitted. The cardiac silhouette is prominent in sizebut magnified by low lung volumes and portable technique. A right subclavian, single-lead ICD is in place. There is no focal consolidation, pneumothorax, large pleural effusion or evidence of overt pulmonary edema. There is no acute bony abnormality. Signed: Adriano Barrera [facility] Verified Date/Time: 07/21/2019 02:56:45 POCT-GLUCOSE [id number] 22:59:00 Test Item Value Reference Range Interpretation Comments POC-GLUCOSE METER 234 mg/dL 70-110 H TESTED AT [place] [address] ([facility] [place]) (test code = RONEYDC Rupa [facility] 1538) [address] POCT-GLUCOSE [id number] 21:29:00 Test Item Value Reference Range Interpretation Comments POC-GLUCOSE METER 312 mg/dL 70-110 H TESTED AT [facility] [address] ([facility] [place]) (test code = JEANETTE Goode [facility] 1538) [address] POCT-GLUCOSE [id number] 18:52:00 Test Item Value Reference Range Interpretation Comments POC-GLUCOSE METER 331 mg/dL 70-110 H TESTED AT [facility] [address] ([facility] [place]) (test code = JEANETTE Goode [facility] 1538) [address] POCT-GLUCOSE [id number] 13:12:00 Test Item Value Reference Range Interpretation Comments POC-GLUCOSE METER 260 mg/dL 70-110 H TESTED AT [place] [address] ([facility]) (test code = JEANETTE Goode [facility] 1538) [id number] HEMOGLOBIN [id number] 09:23:00 Test Item Value Reference Range Interpretation Comments HEMOGLOBIN A1C (BEAKER) (test code = 9.2 % 4.3-6.1 H 368) POCT-GLUCOSE [id number] 09:07:00 Test Item Value Reference Range Interpretation Comments POC-GLUCOSE METER 199 mg/dL 70-110 H TESTED AT [facility] 6720 (BEAKER) (test code = JEANETTE Goode [facility] 1538) [id number] 05:27:00 Test Item Value Reference Range Interpretation Comments MAGNESIUM (BEAKER) (test code = 1.9 mg/dL 1.6-2.6 627) COMPREHENSIVE METABOLIC [id number] 05:27:00 Test Item Value Reference Range Interpretation [...] S NOT APPLICABLE FOR DIALYSIS PATIEN TS. [id number] 05:10:00 Test Item Value Reference Range Interpretation Comments PARTIAL THROMBOPLASTIN TIME 34.8 seconds 22.5-36.0 (BEAKER) (test code = 760) PROTHROMBIN [id number] 05:09:00 Test Item Value Reference Range Interpretation Comments PROTIME (BEAKER) (test code = 14.1 seconds 11.9-14.2 759) INR (BEAKER) (test code = 370) 1.2 <=5.9 Effective 02/26/2019: PT Reference Range ChangeNew: 11.9-14.2 Previous: 11.7- 14.7RECOMMENDED COUMADIN/WARFARIN INR THERAPY RANGESSTANDARD DOSE: 2.0-3.0 Includes: PROPHYLAXIS for venous thrombosis, systemic embolization; TREATMENT for venous thrombosis and/or pulmonary embolus.HIGH RISK: Target INR is 2.5-3.5 for patients wiht mechanical heart valves.CBC W/PLT COUNT & AUTO [id number] 04:57:00 Test Item Value Reference Range Interpretation [...] PERCENT (BEAKER) (test code = 2801) POCT-GLUCOSE [id number] 21:25:00 Test Item Value Reference Range Interpretation Comments POC-GLUCOSE METER 232 mg/dL 70-110 H TESTED AT [place] [address] ([facility]) (test code = [facility] 1538) [id number] POCT-GLUCOSE [id number] 18:18:00 Test Item Value Reference Range Interpretation Comments POC-GLUCOSE METER 165 mg/dL 70-110 H TESTED AT [place] [address] ([facility]) (test code = [facility] 1538) [address] POCT-GLUCOSE [id number] 12:00:00 Test Item Value Reference Range Interpretation Comments POC-GLUCOSE METER 301 mg/dL 70-110 H TESTED AT [place] [address] ([facility]) (test code = [facility] 1538) [address] POCT-GLUCOSE [id number] 08:49:00 Test Item Value Reference Range Interpretation Comments POC-GLUCOSE METER 233 mg/dL 70-110 H TESTED AT [facility] 6720 (BEAKER) (test code = [place] 1538) [address] [id number] 06:17:00 Test Item Value Reference Range Interpretation Comments MAGNESIUM (BEAKER) (test code = 1.6 mg/dL 1.6-2.6 627) BASIC METABOLIC [id number] 06:17:00 Test Item Value Reference Range Interpretation [...] PATIEN TS. CBC W/PLT COUNT & AUTO [id number] 05:38:00 Test Item Value Reference Range Interpretation [...] PERCENT (BEAKER) (test code = 2801) POCT-GLUCOSE [id number] 21:36:00 Test Item Value Reference Range Interpretation Comments POC-GLUCOSE METER 227 mg/dL 70-110 H TESTED AT [facility] [place] 15[facility] [address] POCT-GLUCOSE [id number] 18:27:00 Test Item Value Reference Range Interpretation Comments POC-GLUCOSE METER 377 mg/dL 70-110 H TESTED AT [facility] 67[address] (BEAKER) ([facility] [place] 15[facility]) [address] POCT-GLUCOSE [id number] 16:56:00 Test Item Value Reference Range Interpretation Comments POC-GLUCOSE METER 344 mg/dL 70-110 H TESTED AT [facility] 67[address] (BEAKER) (test code = JEANETTE Goode [place] 1538) [address] POCT-GLUCOSE [id number] 13:01:00 Test Item Value Reference Range Interpretation Comments POC-GLUCOSE METER 206 mg/dL 70-110 H TESTED AT [facility] 67[address] (BEAKER) (test code = JEANETTE Goode [place] 1538) [address] HEMOGLOBIN [id number] 11:33:00 Test Item Value Reference Range Interpretation Comments HEMOGLOBIN A1C (BEAKER) (test code = 9.0 % 4.3-6.1 H 368) [id number] 07:15:00 Test Item Value Reference Range Interpretation Comments PHOSPHORUS (BEAKER) (test code = 2.9 mg/dL 2.3-4.7 604) [id number] 07:15:00 Test Item Value Reference Range Interpretation Comments MAGNESIUM (BEAKER) (test code = 1.4 mg/dL 1.6-2.6 L 627) BASIC METABOLIC [id number] 07:15:00 Test Item Value Reference Range Interpretation [...] PATIEN TS. CBC W/PLT COUNT & AUTO [id number] 06:22:00 Test Item Value Reference Range Interpretation [...] % 0-1 PERCENT (BEAKER) (test code = 7281) POCT-GLUCOSE [id number] 23:15:00 Test Item Value Reference Range Interpretation Comments POC-GLUCOSE METER 317 mg/dL 70-110 H TESTED AT [place] [address] ([facility] [place]) (test code = JEANETTE Goode [facility] 1538) [address] POCT-GLUCOSE [id number] 18:43:00 Test Item Value Reference Range Interpretation Comments POC-GLUCOSE METER 341 mg/dL 70-110 H TESTED AT [place] [address] ([facility] [place]) (test code = JEANETTE Goode [facility] 1538) [address] POCT-GLUCOSE [id number] 12:29:00 Test Item Value Reference Range Interpretation Comments POC-GLUCOSE METER 320 mg/dL 70-110 H TESTED AT [place] [address] ([facility] [place]) (test code = JEANETTE Goode [facility] 1538) [address] POCT-GLUCOSE [id number] 08:52:00 Test Item Value Reference Range Interpretation Comments POC-GLUCOSE METER 258 mg/dL 70-110 H TESTED AT [place] [address] ([facility]) (test code = JEANETTE Goode [facility] 1538) [address] TROPONIN [id number] 05:36:00 Test Item Value Reference Range Interpretation Comments TROPONIN I ([facility]) (test code = 1.86 ng/mL 0.00-0.03 HH [...] failure, acidosis, acute neurological disease, and persistent tachyarrhythmia.[id number] 05:12:00 Test Item Value Reference Range Interpretation Comments PHOSPHORUS (BEAKER) (test code = 2.9 mg/dL 2.3-4.7 604) [id number] 05:12:00 Test Item Value Reference Range Interpretation Comments MAGNESIUM (BEAKER) (test code = 1.4 mg/dL 1.6-2.6 L 627) BASIC METABOLIC [id number] 05:12:00 Test Item Value Reference Range Interpretation [...] PATIEN TS. CBC W/PLT COUNT & AUTO [id number] 04:47:00 Test Item Value Reference Range Interpretation [...] % 0-1 PERCENT (BEAKER) (test code = 5781)
[2022-09-03] MEDS ORDERED: CEFTRIAXONE 1000 MG/VIAL ONE (09:08)
[2022-09-03] MEDS ORDERED: PROMETHAZINE INJ 25 MG/ML AMP ONE (09:08)
[2022-09-03] MEDS ORDERED: LIDOCAINE 1% MPF 2 ML AMPULE ONE (09:08)
[2022-09-03] MEDS ORDERED: MORPHINE 4 MG/ML SYR ONE (09:08)
--- NOTE | 2022-09-03 09:36 | ER ---
Nurse's Notes [facility] Name: Jayme Galeano Age: 67 yrs Sex: Male : 1955 Arrival Date: 09/03/2022 Time: 08:21 Bed IW3 Private MD: Benjamín Gabriel Diagnosis: Otitis Externa Presentation: 09/03 08:41 Chief complaint: Patient states: earache and sore throat X 3 weeks, saw Dr. Oreilly and iw she put tubes in this week, they replaced one on , he was given doxycycline and antibiotic drops and hydrocodone but it still hurts , not draining , has f/u appt in morning. Coronavirus screen: At this time, the client does not indicate any symptoms associated with coronavirus-19. Ebola Screen: Patient negative for fever greater than or equal to 101.5 degrees Fahrenheit, and additional compatible Ebola Virus Disease symptoms Patient denies exposure to infectious person. Patient denies travel to an Ebola-affected area in the 21 days before illness onset. No symptoms or risks identified at this time. Initial Sepsis Screen: Does the patient meet any 2 criteria? No. Patient's initial sepsis screen is negative. Does the patient have a suspected source of infection? No. Patient's initial sepsis screen is negative. Risk Assessment: Do you want to hurt yourself or someone else? Patient reports no desire to harm self or others. Onset of symptoms was August 20, 2022. 08:41 Method Of Arrival: Ambulatory iw 08:41 Acuity: ADY 3 iw Historical: - Allergies: 08:43 No Known Allergies; iw - PMHx: 08:43 Diabetes - IDDM; Hyperlipidemia; Hypertension; iw - Immunization history:: Client reports receiving the 2nd dose of the Covid vaccine. - Social history:: Smoking status: Patient denies any tobacco usage or history of. Vital Signs: 08:41 BP 151 / 76; Pulse 64; Resp 16; Temp 97.8; Pulse Ox 98% on R/A; Weight 95.25 kg; Height iw 5 ft. 5 in. (165.10 cm); Pain 10/10; 08:41 Body Mass Index 34.95 (95.25 kg, 165.10 cm) iw ED Course: 08:21 Patient arrived in ED. mr 08:22 Benjamín Gabriel DO is Private Physician. mr 08:22 Tyson Hol[facility] 08:22 Alexsander Collado MD is Attending Physician. [facility] 08:43 Triage completed. iw 08:44 Arm band placed on. iw 09:35 Yudelka Russell MD is Referral Physician. m 10:07 Lauren Elizondo, RN is Primary Nurse. iw Administered Medications: 09:23 Drug: Promethazine 25 mg Route: IM; Site: left ventrogluteal; kb3 09:23 Drug: Rocephin (cefTRIAXone) 1 grams Route: IM; Site: right ventrogluteal; kb3 09:24 Drug: morphine 4 mg Route: IM; Site: left ventrogluteal; kb3 Outcome: 09:35 Discharge ordered by . m 10:07 Patient left the ED. iw Signatures: Tyson Holman PA PA jarret RuggieroaMayte mr Lauren Elizondo, RN RN iw Taty Holcomb, IQRA RN kb3 Corrections: (The following items were deleted from the chart) 08:43 08:41 Chief complaint: Patient states: earache and sore throat X 3 weeks, saw Dr. evelia Oreilly and she put tubes in this week, they replaced one on , he was given doxycycline and antibiotic drops and hydrocodone but it still hurts , not draining evelia
--- NOTE | 2022-09-03 09:36 | EDPHYS ---
Physician Documentation [facility] Name: Jayme Galeano Age: 67 yrs Sex: Male : 1955 Arrival Date: 09/03/2022 Time: 08:21 Bed IW3 Private MD: [facility] ED Physician Alexsander Collado HPI: 09/03 08:49 This 67 yrs old Male presents to ER via Ambulatory with complaints of Ear Pain.jmm 08:49 The patient presents with pain. Onset: The symptoms/episode began/occurred gradually, 3 jmm week(s) ago. This is a 67 year old male with a history of dm, hlp, htn that presents to the ED with ongoing left sided earache. Patient is currently taking doxycyline and otic antibiotics with no relief. Myringotomy performed without relief. . Historical: - Allergies: 08:43 No Known Allergies; iw - PMHx: 08:43 Diabetes - IDDM; Hyperlipidemia; Hypertension; iw - Immunization history:: Client reports receiving the 2nd dose of the Covid vaccine. - Social history:: Smoking status: Patient denies any tobacco usage or history of. ROS: 08:49 Constitutional: Negative for fever, chills, and weight loss. jmm 08:49 ENT: Positive for ear pain. 08:49 All other systems are negative. Exam: 08:49 Constitutional: This is a well developed, well nourished patient who is awake, alert, jmm and in no acute distress. Head/Face: atraumatic. Eyes: EOMI, no conjunctival erythema appreciated 08:49 Neck: Trachea midline, Supple Chest/axilla: Normal chest wall appearance and motion. Cardiovascular: Regular rate and rhythm. No edema appreciated Respiratory: Normal respirations, no respiratory distress appreciated Abdomen/GI: Non distended Back: Normal ROM Skin: General appearance color normal MS/ Extremity: Moves all extremities, no obvious deformities appreciated, no edema noted to the lower extremities Neuro: Awake and alert Psych: Behavior is normal, Mood is normal, Patient is cooperative and pleasant 08:49 ENT: TM's: not visable, because of discharge. Vital Signs: 08:41 BP 151 / 76; Pulse 64; Resp 16; Temp 97.8; Pulse Ox 98% on R/A; Weight 95.25 kg; Height iw 5 ft. 5 in. (165.10 cm); Pain 10/; 08:41 Body Mass Index 34.95 (95.25 kg, 165.10 cm) iw MDM: 08:53 Data reviewed: vital signs, nurses notes. Counseling: I had a detailed discussion with jarret the patient and/or guardian regarding: the historical points, exam findings, and any diagnostic results supporting the discharge/admit diagnosis, the need for outpatient follow up, to return to the emergency department if symptoms worsen or persist or if there are any questions or concerns that arise at home. 08:54 Patient medically screened. [facility] Administered Medications: 09:23 Drug: Promethazine 25 mg Route: IM; Site: left ventrogluteal; kb3 09:23 Drug: Rocephin (cefTRIAXone) 1 grams Route: IM; Site: right ventrogluteal; kb3 09:24 Drug: morphine 4 mg Route: IM; Site: left ventrogluteal; kb3 Disposition Summary: 09/03/22 09:35 Discharge Ordered Location: Home [facility] Condition: Stable [facility] Diagnosis - Otitis Externa [facility] Followup: [facility] - With: Yudelka Russell MD - When: Tomorrow - Reason: Recheck today's complaints, Continuance of care, Re-evaluation by your physician Discharge Instructions: - Discharge Summary Sheet [facility] - Otitis Externa [facility] Forms: - Medication Reconciliation Form [facility] - Thank You Letter [facility] - Antibiotic Education [facility] - Prescription Opioid Use [facility] Signatures: Tyson Holman PA PA jmm Williams, Irene, RN RN iw Taty Holcomb RN RN kb3 Corrections: (The following items were deleted from the chart) 09:36 09:35 Acute serous otitis media, left ear [facility]
[2022-09-03 10:14] VITALS: BP 151/76; TEMP 97.8; O2SAT 98
== END 2022-09-03 10:07 | disposition home or self-care (01) ==
LOC: ER 08:20
DX: H60.92 Unspecified otitis externa, left ear (principal); I10 Essential (primary) hypertension
CPT/HCPCS: 96372; 99282; J2550

== ENCOUNTER 2023-07-20 04:47 | Emergency (ER) | payer OTHER, SELFPAY ==
[2023-07-20 05:16] LABS: Absolute Lymphocytes (CBC) 2.6 K/uL (0.7-4.9); Hematocrit 34.7 % (39.6-49.0); Lymphocytes % 25.1 % (15.3-44.8); MCV 90.4 fL (80-100); MPV 8.6 fL (7.6-11.3); Platelets 160 thou/uL (152-406); RBC Red Blood Cell Count 3.84 M/uL (4.33-5.43)
[2023-07-20] MEDS ORDERED: NA CHLORIDE 0.9% 1,000 ML ONE (05:16)
[2023-07-20] MEDS ORDERED: D10W 250 ML IV ONE (05:17)
--- OUTSIDE RECORDS SUMMARY | 2023-07-20 05:19 | XMS REPORT | Continuity of Care Document ---
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 Yes Take by [facility] vers NESIUM-ZINC 8-14 mouth ity of ORAL 09:59: daily. [address] metFORMIN 2023-0 Yes 1000mg Take 1 [facility] ers 1,000 mg 8-14 tablet by ity of tablet 09:59: mouth in [address] and 1 tablet in the evening. Take with meals. CALCIUM-MAG 2023-0 Yes Take by Uni vers NESIUM-ZINC 8-14 mouth ity of ORAL 09:59: daily. [address] metFORMIN 2023-0 Yes 1000mg Take 1 [facility] ers 1,000 mg 8-14 tablet by ity of tablet 09:59: mouth in [address] and 1 tablet in the evening. Take with meals. CALCIUM-MAG 2023-0 Yes Take by Uni vers NESIUM-ZINC 8-14 mouth ity of ORAL 09:59: daily. [address] metFORMIN 2023-0 Yes 1000mg Take 1 [facility] ers 1,000 mg 8-14 tablet by ity of tablet 09:59: mouth in [address] and 1 tablet in the evening. Take with meals. CALCIUM-MAG 2023-0 Yes Take by [facility] vers NESIUM-ZINC 8-14 mouth ity of ORAL 09:59: daily. [address] metFORMIN 2023-0 Yes 1000mg Take 1 [facility] ers 1,000 mg 8-14 tablet by ity of tablet 09:59: mouth in [address] and 1 tablet in the evening. Take with meals. CALCIUM-MAG 2023-0 Yes Take by [facility] vers NESIUM-ZINC 8-14 mouth ity of ORAL 09:59: daily. [address] metFORMIN 2023-0 Yes 1000mg Take 1 [facility] ers 1,000 mg 8-14 tablet by ity of tablet 09:59: mouth in [address] and 1 tablet in the evening. Take with meals. CALCIUM-MAG 2023-0 Yes Take by [facility] vers NESIUM-ZINC 8-14 mouth ity of ORAL 09:59: daily. [address] metFORMIN 2023-0 Yes 1000mg Take 1 [facility] ers 1,000 mg 8-14 tablet by ity of tablet 09:59: mouth in [address] and 1 tablet in the evening. Take with meals. CALCIUM-MAG 2023-0 Yes Take by [facility] vers NESIUM-ZINC 8-14 mouth ity of ORAL 09:59: daily. [address] metFORMIN 2023-0 Yes 1000mg Take 1 [facility] ers 1,000 mg 8-14 tablet by ity of tablet 09:59: mouth in [address] and 1 tablet in the evening. Take with meals. CALCIUM-MAG 2023-0 Yes Take by [facility] vers NESIUM-ZINC 8-14 mouth ity of ORAL 09:59: daily. [address] metFORMIN 2023-0 Yes 1000mg Take 1 [facility] ers 1,000 mg 8-14 tablet by ity of tablet 09:59: mouth in [address] and 1 tablet in the evening. Take with meals. CALCIUM-MAG 2023-0 Yes Take by [facility] vers NESIUM-ZINC 8-14 mouth ity of ORAL 09:59: daily. [address] metFORMIN 2023-0 Yes 1000mg Take 1 [facility] ers 1,000 mg 8-14 tablet by ity of tablet 09:59: mouth in [address] and 1 tablet in the evening. Take with meals. CALCIUM-MAG 2023-0 Yes Take by Uni vers NESIUM-ZINC 8-14 mouth ity of ORAL 09:59: daily. [address] metFORMIN 2023-0 Yes 1000mg Take 1 [facility] ers 1,000 mg 8-14 tablet by ity of tablet 09:59: mouth in [address] and 1 tablet in the evening. Take with meals. CALCIUM-MAG 2023-0 Yes Take by Uni vers NESIUM-ZINC 8-14 mouth ity of ORAL 09:59: daily. [address] metFORMIN 2023-0 Yes 1000mg Take 1 [facility] ers 1,000 mg 8-14 tablet by ity of tablet 09:59: mouth in [address] and 1 tablet in the evening. Take with meals. CALCIUM-MAG 2023-0 Yes Take by Uni vers NESIUM-ZINC 8-14 mouth ity of ORAL 09:59: daily. [address] metFORMIN 2023-0 Yes 1000mg Take 1 [facility] ers 1,000 mg 8-14 tablet by ity of tablet 09:59: mouth in [address] and 1 tablet in the evening. Take with meals. CALCIUM-MAG 2023-0 Yes Take by Uni vers NESIUM-ZINC 8-14 mouth ity of ORAL 09:59: daily. [address] metFORMIN 2023-0 Yes 1000mg Take 1 [facility] ers 1,000 mg 8-14 tablet by ity of tablet 09:59: mouth in [address] and 1 tablet in the evening. Take with meals. CALCIUM-MAG 2023-0 Yes Take by Uni vers NESIUM-ZINC 8-14 mouth ity of ORAL 09:59: daily. [address] icosapent 2023-0 Yes [id number] 2g Take 2 U nivers ethyL 7-27 capsules ity of (VASCEPA) 1 00:00: by mouth [place] gram 00 in the [facility] morning Branch and 2 capsules in the evening. icosapent 2023-0 Yes [id number] 2g Take 2 U nivers ethyL 7-27 capsules ity of (VASCEPA) 1 00:00: by mouth [place] gram 00 in the Medical capsule morning Branch and 2 capsules in the evening. icosapent 0 Yes [id number] 2g Take 2 U nivers ethyL 7-27 capsules ity of (VASCEPA) 1 00:00: by mouth [place] gram 00 in the Medical capsule morning Branch and 2 capsules in the evening. icosapent Yes [id number] 2g Take 2 U nivers ethyL 7-27 capsules ity of (VASCEPA) 1 00:00: by mouth [place] gram 00 in the Medical capsule morning Branch and 2 capsules in the evening. icosapent Yes [id number] 2g Take 2 U nivers ethyL 7-27 capsules ity of (VASCEPA) 1 00:00: by mouth [place] gram 00 in the Medical capsule morning Branch and 2 capsules in the evening. icosapent Yes [id number] 2g Take 2 U nivers ethyL 7-27 capsules ity of (VASCEPA) 1 00:00: by mouth [place] gram 00 in the Medical capsule morning Branch and 2 capsules in the evening. icosapent Yes [id number] 2g Take 2 U nivers ethyL 7-27 capsules ity of (VASCEPA) 1 00:00: by mouth [place] gram 00 in the Medical capsule morning Branch and 2 capsules in the evening. icosapent Yes [id number] 2g Take 2 U nivers ethyL 7-27 capsules ity of (VASCEPA) 1 00:00: by mouth [place] gram 00 in the Medical capsule morning Branch and 2 capsules in the evening. icosapent 0 Yes [id number] 2g Take 2 U nivers ethyL 7-27 capsules ity of (VASCEPA) 1 00:00: by mouth [place] gram 00 in the Medical capsule morning Branch and 2 capsules in the evening. icosapent 0 Yes [id number] 2g Take 2 U nivers ethyL 7-27 capsules ity of (VASCEPA) 1 00:00: by mouth [place] gram 00 in the Medical capsule morning Branch and 2 capsules in the evening. icosapent 0 Yes [id number] 2g Take 2 U nivers ethyL 7-27 capsules ity of (VASCEPA) 1 00:00: by mouth [place] gram 00 in the Medical capsule morning Branch and 2 capsules in the evening. icosapent Yes [id number] 2g Take 2 U nivers ethyL 7-27 capsules ity of (VASCEPA) 1 00:00: by mouth [place] gram 00 in the Medical capsule morning Branch and 2 capsules in the evening. icosapent Yes [id number] 2g Take 2 U nivers ethyL 7-27 capsules ity of (VASCEPA) 1 00:00: by mouth [place] gram 00 in the Medical capsule morning Branch and 2 capsules in the evening. icosapent Yes [id number] 2g Take 2 U nivers ethyL 7-27 capsules ity of (VASCEPA) 1 00:00: by mouth [place] gram 00 in the Medical capsule morning Branch and 2 capsules in the evening. icosapent Yes [id number] 2g Take 2 U nivers ethyL 7-27 capsules ity of (VASCEPA) 1 00:00: by mouth [place] gram 00 in the Medical capsule morning Branch and 2 capsules in the evening. icosapent Yes [id number] 2g Take 2 U nivers ethyL 7-27 capsules ity of (VASCEPA) 1 00:00: by mouth [place] gram 00 in the Medical capsule morning Branch and 2 capsules in the evening. icosapent Yes [id number] 2g Take 2 U nivers ethyL 7-27 capsules ity of (VASCEPA) 1 00:00: by mouth [place] gram 00 in the Medical capsule morning Branch and 2 capsules in the evening. icosapent Yes [id number] 2g Take 2 U nivers ethyL 7-27 capsules ity of (VASCEPA) 1 00:00: by mouth [place] gram 00 in the Medical capsule morning Branch and 2 capsules in the evening. icosapent 0 Yes [id number] 2g Take 2 U nivers ethyL 7-27 capsules ity of (VASCEPA) 1 00:00: by mouth [place] gram 00 in the Medical capsule morning Branch and 2 capsules in the evening. icosapent Yes [id number] 2g Take 2 U nivers ethyL 7-27 capsules ity of (VASCEPA) 1 00:00: by mouth [place] gram 00 in the Medical capsule morning Branch and 2 capsules in the evening. icosapent 2022-0 Yes [id number] 2g Take 2 U nivers ethyL 7-27 capsules ity of (VASCEPA) 1 00:00: by mouth [place] gram 00 in the Medical capsule morning Branch and 2 capsules in the evening. icosapent 2022-0 Yes [id number] 2g Take 2 U nivers ethyL 7-27 capsules ity of (VASCEPA) 1 00:00: by mouth [place] gram 00 in the Medical capsule morning Branch and 2 capsules in the evening. icosapent 2022-0 Yes [id number] 2g Take 2 U nivers ethyL 7-27 capsules ity of (VASCEPA) 1 00:00: by mouth [place] gram 00 in the Medical capsule morning Branch and 2 capsules in the evening. icosapent 2022-0 Yes [id number] 2g Take 2 U nivers ethyL 7-27 capsules ity of (VASCEPA) 1 00:00: by mouth [place] gram 00 in the Medical capsule morning Branch and 2 capsules in the evening. metFORMIN 0 Yes 1000mg Take 1 Univ ers 1,000 mg 7-22 tablet by ity of tablet 17:19: mouth in [place] [address] the Medical morning Branch and 1 tablet in the evening. Take with meals. UBIDECAR/FI 0 Yes Take by Uni vers SH 7-22 mouth. ity of OIL/OMEGA-3 17:19: [place] /OSMIN ([facility] Medical [id number] Branch OIL-OMEGA 3-E ORAL) liraglutide 0 Yes 1.8mg inject 1.8 Univers (VICTOZA 7-22 mg under ity of 3-АЛЕКСАНДР [place]) 17:19: [place] daily. Medical Branch tamsulosin 0 Yes Take by Univ ers 0.4 mg 24 7-22 mouth ity of hr capsule 17:19: daily. [address] Branch CALCIUM-MAG 2022-0 Yes Take by Uni vers NESIUM-ZINC 7-22 mouth ity of ORAL 17:19: daily. [address] metFORMIN 2022-0 Yes 1000mg Take 1 Univ ers 1,000 mg 7-22 tablet by ity of tablet 17:19: mouth in [place] [address] the Medical morning Branch and 1 tablet in the evening. Take with meals. UBIDECAR/FI 2023-0 Yes Take by Uni vers SH 7-22 mouth. ity of OIL/OMEGA-3 17:19: [place] /OSMIN ([address] OIL-OMEGA 3-E ORAL) liraglutide 2023-0 Yes 1.8mg inject 1.8 Univers (VICTOZA 7-22 mg under ity of 3-АЛЕКСАНДР [place]) 17:19: the skin [place] [address] daily. Medical Branch tamsulosin 3-0 Yes Take by Univ ers 0.4 mg 24 7-22 mouth ity of hr capsule 17:19: daily. [address] CALCIUM-MAG 3-0 Yes Take by Uni vers NESIUM-ZINC 7-22 mouth ity of ORAL 17:19: daily. [address] metFORMIN 3-0 Yes 1000mg Take 1 Univ ers 1,000 mg 7-22 tablet by ity of tablet 17:19: mouth in [place] [address] the [facility] and 1 tablet in the evening. Take with meals. UBIDECAR/FI 3-0 Yes Take by Uni vers SH 7-22 mouth. ity of OIL/OMEGA-3 17:19: [place] /OSMIN ([address] OIL-OMEGA 3-E ORAL) liraglutide 3-0 Yes 1.8mg inject 1.8 Univers (VICTOZA 7-22 mg under ity of 3-АЛЕКСАНДР [place]) 17:19: the [place] [address] daily. Medical Branch tamsulosin 3-0 Yes Take by Univ ers 0.4 mg 24 7-22 mouth ity of hr capsule 17:19: daily. [address] CALCIUM-MAG 2023-0 Yes Take by Uni vers NESIUM-ZINC 7-22 mouth ity of ORAL 17:19: daily. [address] metFORMIN 2023-0 Yes 1000mg Take 1 Univ ers 1,000 mg 7-22 tablet by ity of tablet 17:19: mouth in [place] [address] the [facility] morning [place] and 1 tablet in the evening. Take with meals. UBIDECAR/FI 2023-0 Yes Take by Uni vers SH 7-22 mouth. ity of OIL/OMEGA-3 17:19: [place] /OSMIN ([address] OIL-OMEGA 3-E ORAL) liraglutide 3-0 Yes 1.8mg inject 1.8 Univers (VICTOZA 7-22 mg under ity of 3-АЛЕКСАНДР [place]) 17:19: [place]. Medical Branch tamsulosin 2022-0 Yes Take by Univ ers 0.4 mg 24 7-22 mouth ity of hr capsule 17:19: daily. [address] CALCIUM-MAG 2022-0 Yes Take by Uni vers NESIUM-ZINC 7-22 mouth ity of ORAL 17:19: daily. [address] metFORMIN 2022-0 Yes 1000mg Take 1 Univ ers 1,000 mg 7-22 tablet by ity of tablet 17:19: mouth in [place] [address] the Medical morning Branch and 1 tablet in the evening. Take with meals. UBIDECAR/FI 2022-0 Yes Take by Uni vers SH 7-22 mouth. ity of OIL/OMEGA-3 17:19: [place] /OSMIN ([address] OIL-OMEGA 3-E ORAL) liraglutide 3-0 Yes 1.8mg inject 1.8 [facility] (VICTOZA 7-22 mg under ity of 3-АЛЕКСАНДР [place]) 17:19: [place] daily. Medical Branch tamsulosin 2022-0 Yes Take by Univ ers 0.4 mg 24 7-22 mouth ity of hr capsule 17:19: daily. [address] CALCIUM-MAG 2022-0 Yes Take by Uni vers NESIUM-ZINC 7-22 mouth ity of ORAL 17:19: daily. [address] metFORMIN 3-0 Yes 1000mg Take 1 Univ ers 1,000 mg 7-22 tablet by ity of tablet 17:19: mouth in [place] [address] the [facility] and 1 tablet in the evening. Take with meals. UBIDECAR/FI 2023-0 Yes Take by Uni vers SH 7-22 mouth. ity of OIL/OMEGA-3 17:19: [place] /OSMIN ([address] OIL-OMEGA 3-E ORAL) liraglutide 2023-0 Yes 1.8mg inject 1.8 [facility] (VICTOZA 7-22 mg under ity of 3-АЛЕКСАНДР [place]) 17:19: [place] daily. Medical Branch tamsulosin 2022-0 Yes Take by Univ ers 0.4 mg 24 7-22 mouth ity of hr capsule 17:19: daily. [address] CALCIUM-MAG 2022-0 Yes Take by Uni vers NESIUM-ZINC 7-22 mouth ity of ORAL 17:19: daily. [address] metFORMIN 2022-0 Yes 1000mg Take 1 Univ ers 1,000 mg 7-22 tablet by ity of tablet 17:19: mouth in [place] [address] the Medical morning Branch and 1 tablet in the evening. Take with meals. UBIDECAR/FI 2022-0 Yes Take by Uni vers SH 7-22 mouth. ity of OIL/OMEGA-3 17:19: [place] /OSMIN ([address] OIL-OMEGA 3-E ORAL) liraglutide 3-0 Yes 1.8mg inject 1.8 Univers (VICTOZA 7-22 mg under ity of 3-АЛЕКСАНДР [place]) 17:19: [place] daily. Medical Branch tamsulosin 2022-0 Yes Take by Univ ers 0.4 mg 24 7-22 mouth ity of hr capsule 17:19: daily. [address] CALCIUM-MAG 2022-0 Yes Take by Uni vers NESIUM-ZINC 7-22 mouth ity of ORAL 17:19: daily. [address] metFORMIN 2022-0 Yes 1000mg Take 1 Univ ers 1,000 mg 7-22 tablet by ity of tablet 17:19: mouth in [place] [address] the [facility] Branch and 1 tablet in the evening. Take with meals. UBIDECAR/FI 2022-0 Yes Take by Uni vers SH 7-22 mouth. ity of OIL/OMEGA-3 17:19: [place] /OSMIN ([address] OIL-OMEGA 3-E ORAL) liraglutide 3-0 Yes 1.8mg inject 1.8 Univers (VICTOZA 7-22 mg under ity of 3-АЛЕКСАНДР [place]) 17:19: [place] daily. Medical Branch tamsulosin 2022-0 Yes Take by Univ ers 0.4 mg 24 7-22 mouth ity of hr capsule 17:19: daily. [address] CALCIUM-MAG 3-0 Yes Take by Uni vers NESIUM-ZINC 7-22 mouth ity of ORAL 17:19: daily. [place] 48 Medical Branch metFORMIN 2023-0 Yes 1000mg Take 1 Univ ers 1,000 mg 7-22 tablet by ity of tablet 17:19: mouth in [place] [address] the Medical morning Branch and 1 tablet in the evening. Take with meals. UBIDECAR/FI 2023-0 Yes Take by Uni vers SH 7-22 mouth. ity of OIL/OMEGA-3 17:19: [place] /OSMIN ([address] [place] OIL-OMEGA 3-E ORAL) liraglutide 2023-0 Yes 1.8mg inject 1.8 Univers (VICTOZA 7-22 mg under ity of 3-АЛЕКСАНДР [place]) 17:19: [place] daily. Medical Branch tamsulosin 3-0 Yes Take by Univ ers 0.4 mg 24 7-22 mouth ity of hr capsule 17:19: daily. [address] CALCIUM-MAG 3-0 Yes Take by Uni vers NESIUM-ZINC 7-22 mouth ity of ORAL 17:19: daily. [address] metFORMIN 2023-0 Yes 1000mg Take 1 Univ ers 1,000 mg 7-22 tablet by ity of tablet 17:19: mouth in [place] [address] the Medical morning Branch and 1 tablet in the evening. Take with meals. UBIDECAR/FI 3-0 Yes Take by Uni vers SH 7-22 mouth. ity of OIL/OMEGA-3 17:19: [place] /OSMIN ([address] OIL-OMEGA 3-E ORAL) liraglutide 2023-0 Yes 1.8mg inject 1.8 Univers (VICTOZA 7-22 mg under ity of 3-АЛЕКСАНДР SC) 17:19: the skin [place] [address] daily. Medical Branch tamsulosin 2023-0 Yes Take by Univ ers 0.4 mg 24 7-22 mouth ity of hr capsule 17:19: daily. [address] CALCIUM-MAG 2023-0 Yes Take by Uni vers NESIUM-ZINC 7-22 mouth ity of ORAL 17:19: daily. [address] metFORMIN 2023-0 Yes 1000mg Take 1 Univ ers 1,000 mg 7-22 tablet by ity of tablet 17:19: mouth in [place] [address] the Medical morning Branch and 1 tablet in the evening. Take with meals. UBIDECAR/FI 2023-0 Yes Take by Uni vers SH 7- mouth. ity of OIL/OMEGA-3 17:19: [place] /OSMIN ([place] 47 Medical [id number] Branch OIL-OMEGA 3-E ORAL) liraglutide 2022-0 Yes 1.8mg inject 1.8 [facility] (VICTOZA 7-22 mg under ity of 3-АЛЕКСАНДР [place]) 17:19: [place] daily. Medical Branch tamsulosin 0 Yes Take by Univ ers 0.4 mg 24 7- mouth ity of hr capsule 17:19: daily. [address] CALCIUM-MAG 0 Yes Take by Uni vers NESIUM-ZINC 04-21 mouth ity of ORAL 17:19: daily. [address] Branch UBIDECAR/FI 0 Yes Take by Uni vers SH 04-21 mouth. ity of OIL/OMEGA-3 17:19: [place] /OSMIN ([facility] Medical [id number] Branch OIL-OMEGA 3-E ORAL) liraglutide 2022-0 Yes 1.8mg inject 1.8 [facility] (VICTOZA 7-22 mg under ity of 3-АЛЕКСАНДР SC) 17:19: [place] daily. Medical Branch tamsulosin 0 Yes Take by Univ ers 0.4 mg 24 - mouth ity of hr capsule 17:19: daily. [address] UBIDECAR/FI 0 Yes Take by Uni vers SH 04-21 mouth. ity of OIL/OMEGA-3 17:19: [place] /OSMIN ([place] 47 Medical [id number] Branch OIL-OMEGA 3-E ORAL) liraglutide 2022-0 Yes 1.8mg inject 1.8 [facility] (VICTOZA 7-22 mg under ity of 3-АЛЕКСАНДР SC) 17:19: [place] daily. Medical Branch tamsulosin 0 Yes Take by Univ ers 0.4 mg 24 7- mouth ity of hr capsule 17:19: daily. [address] UBIDECAR/FI 0 Yes Take by Uni vers SH 7- mouth. ity of OIL/OMEGA-3 17:19: [place] /OSMIN ([place] 47 Medical [id number] Branch OIL-OMEGA 3-E ORAL) liraglutide 2022-0 Yes 1.8mg inject 1.8 [facility] (VICTOZA 7-22 mg under ity of 3-АЛЕКСАНДР [place]) 17:19: [place] daily. Medical Branch tamsulosin 2022-0 Yes Take by Univ ers 0.4 mg 24 7-22 mouth ity of hr capsule 17:19: daily. [place] [address] Medical Branch UBIDECAR/FI 2022-0 Yes Take by Uni vers SH 7-22 mouth. ity of OIL/OMEGA-3 17:19: [place] /OSMIN ([place] 47 Medical [id number] Branch OIL-OMEGA 3-E ORAL) liraglutide 2022-0 Yes 1.8mg inject 1.8 [facility] (VICTOZA 7-22 mg under ity of 3-АЛЕКСАНДР [place]) 17:19: [place] daily. Medical Branch tamsulosin 2022-0 Yes Take by Univ ers 0.4 mg 24 7-22 mouth ity of hr capsule 17:19: daily. [place] [address] Medical Branch UBIDECAR/FI 0 Yes Take by Uni vers SH 7-22 mouth. ity of OIL/OMEGA-3 17:19: [place] /OSMIN ([place] 48 Medical [id number] Branch OIL-OMEGA 3-E ORAL) liraglutide 2022-0 Yes 1.8mg inject 1.8 [facility] (VICTOZA 7-22 mg under ity of 3-АЛЕКСАНДР [place]) 17:19: [place] daily. Medical Branch tamsulosin 2022-0 Yes Take by Univ ers 0.4 mg 24 7-22 mouth ity of hr capsule 17:19: daily. [place] [address] Medical Branch UBIDECAR/FI 2022-0 Yes Take by Uni vers SH 7-22 mouth. ity of OIL/OMEGA-3 17:19: [place] /OSMIN ([place] 48 Medical [id number] Branch OIL-OMEGA 3-E ORAL) liraglutide 3-0 Yes 1.8mg inject 1.8 [facility] (VICTOZA 7-22 mg under ity of 3-АЛЕКСАНДР [place]) 17:19: [place] daily. Medical Branch tamsulosin 2022-0 Yes Take by Univ ers 0.4 mg 24 7-22 mouth ity of hr capsule 17:19: daily. [place] [address] Medical Branch UBIDECAR/FI 2022-0 Yes Take by Uni vers SH 7-22 mouth. ity of OIL/OMEGA-3 17:19: [place] /OSMIN ([place] 48 Medical [id number] Branch OIL-OMEGA 3-E ORAL) liraglutide 2022-0 Yes 1.8mg inject 1.8 [facility] (VICTOZA 7-22 mg under ity of 3-АЛЕКСАНДР [place]) 17:19: [place] daily. Medical Branch tamsulosin 0 Yes Take by Univ ers 0.4 mg 24 7-22 mouth ity of hr capsule 17:19: daily. [place] [address] Medical Branch UBIDECAR/FI 0 Yes Take by Uni vers SH 7-22 mouth. ity of OIL/OMEGA-3 17:19: [place] /OSMIN ([place] 48 Medical [id number] Branch OIL-OMEGA 3-E ORAL) liraglutide 2022-0 Yes 1.8mg inject 1.8 [facility] (VICTOZA 7-22 mg under ity of 3-АЛЕКСАНДР [place]) 17:19: [place] daily. Medical Branch tamsulosin 0 Yes Take by Univ ers 0.4 mg 24 7-22 mouth ity of hr capsule 17:19: daily. [place] [address] Medical Branch UBIDECAR/FI 0 Yes Take by Uni vers SH 7-22 mouth. ity of OIL/OMEGA-3 17:19: [place] /[place]MIN ([place] Medical [id number] Branch OIL-OMEGA 3-E ORAL) liraglutide 0 Yes 1.8mg inject 1.8 [facility] (VICTOZA 7-22 mg under ity of 3-АЛЕКСАНДР [place]) 17:19: [place] daily. Medical Branch tamsulosin 0 Yes Take by Univ ers 0.4 mg 24 7-22 mouth ity of hr capsule 17:19: daily. [place] [address] Medical Branch UBIDECAR/FI 0 Yes Take by Uni vers SH 7-22 mouth. ity of OIL/OMEGA-3 17:19: [place] /OSMIN ([place] Medical [id number]-[id number] Branch OIL-OMEGA 3-E ORAL) liraglutide 2022-0 Yes 1.8mg inject 1.8 [facility] (VICTOZA 7-22 mg under ity of 3-АЛЕКСНАДР [place]) 17:19: [place] daily. Medical Branch tamsulosin 0 Yes Take by Univ ers 0.4 mg 24 7-22 mouth ity of hr capsule 17:19: daily. [place] [address] Medical Branch UBIDECAR/FI 2022-0 Yes Take by Uni vers SH 7-22 mouth. ity of OIL/OMEGA-3 17:19: [place] /OSMIN ([place] 48 Medical [id number] Branch OIL-OMEGA 3-E ORAL) liraglutide 2022-0 Yes 1.8mg inject 1.8 [facility] (VICTOZA 7-22 mg under ity of 3-АЛЕКСАНДР [place]) 17:19: [place] daily. Medical Branch tamsulosin 2022-0 Yes Take by [facility] ers 0.4 mg 24 7-22 mouth ity of hr capsule 17:19: daily. [place] [address] Medical Branch UBIDECAR/FI 2022-0 Yes Take by Uni vers 7-22 mouth. ity of OIL/OMEGA-3 17:19: [place] /OSMIN ([place] 48 Medical [id number] Branch OIL-OMEGA 3-E ORAL) liraglutide 2022-0 Yes 1.8mg inject 1.8 [facility] (VICTOZA 7-22 mg under ity of 3-АЛЕКСАНДР SC) 17:19: the skin [place] 48 daily. Medical Branch tamsulosin 2022-0 Yes Take by [facility] ers 0.4 mg 24 7-22 mouth ity of hr capsule 17:19: daily. [place] [address] Medical Branch UBIDECAR/FI 2022-0 Yes Take by [facility] vers 7-22 mouth. ity of OIL/OMEGA-3 17:19: [place] /OSMIN (SC 47 Medical [id number] Branch OIL-OMEGA 3-E ORAL) liraglutide 2022-0 Yes 1.8mg inject 1.8 [facility] (VICTOZA 7-22 mg under ity of 3-АЛЕКСАНДР [place]) 17:19: [place] daily. Medical [facility] tamsulosin 2022-0 Yes Take by [facility] ers 0.4 mg 24 7-22 mouth ity of hr capsule 17:19: daily. [place] [address] Medical Branch UBIDECAR/FI 2022-0 Yes Take by [facility] vers SH 7-22 mouth. ity of OIL/OMEGA-3 17:19: [place] /OSMIN (CO 47 Medical [id number] Branch OIL-OMEGA 3-E ORAL) liraglutide 2022-0 Yes 1.8mg inject 1.8 [facility] (VICTOZA 7-22 mg under ity of 3-АЛЕКСАНДР SC) 17:19: the [place] daily. [place] tamsulosin 3-0 Yes Take by Univ ers 0.4 mg 24 7-22 mouth ity of hr capsule 17:19: daily. [place] [address] Medical Branch UBIDECAR/FI 2022-0 Yes Take by Uni vers SH 7-22 mouth. ity of OIL/OMEGA-3 17:19: [place] /OSMIN (CO 48 Medical [id number] Branch OIL-OMEGA 3-E ORAL) liraglutide 3-0 Yes 1.8mg inject 1.8 Univers (VICTOZA 7-22 mg under ity of 3-АЛЕКСАНДР SC) 17:19: [place] daily. [place] Branch tamsulosin 2022-0 Yes Take by Univ ers 0.4 mg 24 7-22 mouth ity of hr capsule 17:19: daily. [place] [address] Medical Branch UBIDECAR/FI 2022-0 Yes Take by Uni vers SH 7-22 mouth. ity of OIL/OMEGA-3 17:19: [place] /OSMIN (SC 48 Medical [id number] Branch OIL-OMEGA 3-E ORAL) liraglutide 2022-0 Yes 1.8mg inject 1.8 Univers (VICTOZA 7-22 mg under ity of 3-АЛЕКСАНДР SC) 17:19: [place] daily. [place] Branch tamsulosin 2022-0 Yes Take by Univ ers 0.4 mg 24 7-22 mouth ity of hr capsule 17:19: daily. [place] [address] Medical Branch UBIDECAR/FI 2022-0 Yes Take by Uni vers SH 7-22 mouth. ity of OIL/OMEGA-3 17:19: [place] /OSMIN (CO 48 Medical [id number] Branch OIL-OMEGA 3-E ORAL) liraglutide 3-0 Yes 1.8mg inject 1.8 Univers (VICTOZA 7-22 mg under ity of 3-АЛЕКСАНДР SC) 17:19: [place] daily. [place] Branch tamsulosin 3-0 Yes Take by Univ ers 0.4 mg 24 7-22 mouth ity of hr capsule 17:19: daily. [place] [address] Medical Branch UBIDECAR/FI 2022-0 Yes Take by Uni vers SH 7-22 mouth. ity of OIL/OMEGA-3 17:19: [place] /OSMIN (SC 48 Medical [id number] Branch OIL-OMEGA 3-E ORAL) liraglutide 2022-0 Yes 1.8mg inject 1.8 Univers (VICTOZA 7-22 mg under ity of 3-АЛЕКСАНДР SC) 17:19: [place] daily. [place] Branch tamsulosin 2022-0 Yes Take by Univ ers 0.4 mg 24 7-22 mouth ity of hr capsule 17:19: daily. [place] [address] Medical Branch UBIDECAR/FI 2022-0 Yes Take by Uni vers SH 7-22 mouth. ity of OIL/OMEGA-3 17:19: [place] /OSMIN (SC 48 Medical [id number] [place] OIL-OMEGA 3-E ORAL) liraglutide 2022-0 Yes 1.8mg inject 1.8 Univers (VICTOZA 7-22 mg under ity of 3-АЛЕКСАНДР SC) 17:19: [place] daily. Medical Branch tamsulosin 2022-0 Yes Take by Univ ers 0.4 mg 24 7-22 mouth ity of hr capsule 17:19: daily. [place] [address] Medical Branch UBIDECAR/FI 0 Yes Take by Uni vers SH 7-22 mouth. ity of OIL/OMEGA-3 17:19: [place] /OSMIN (SC 48 Medical [id number] [place] OIL-OMEGA 3-E ORAL) liraglutide 2022-0 Yes 1.8mg inject 1.8 Univers (VICTOZA 7-22 mg under ity of 3-АЛЕКСАНДР SC) 17:19: [place] daily. Medical Branch tamsulosin 2022-0 Yes Take by Univ ers 0.4 mg 24 7-22 mouth ity of hr capsule 17:19: daily. [place] [address] Medical Branch UBIDECAR/FI 2022-0 Yes Take by Uni vers SH 7-22 mouth. ity of OIL/OMEGA-3 17:19: [place] /OSMIN (SC 48 Medical [id number] Branch OIL-OMEGA 3-E ORAL) liraglutide 2022-0 Yes 1.8mg inject 1.8 Univers (VICTOZA 7-22 mg under ity of 3-АЛЕКСАНДР SC) 17:19: [place] daily. Medical Branch tamsulosin 2022-0 Yes Take by Univ ers 0.4 mg 24 7-22 mouth ity of hr capsule 17:19: daily. [address] UBIDECAR/FI 2022-0 Yes Take by Uni vers 04-21 mouth. ity of OIL/OMEGA-3 17:19: [place] /OSMIN (CO [address] [place] [address]-FISH [place] OIL-OMEGA 3-E ORAL) liraglutide 2022-0 Yes 1.8mg inject 1.8 Univers (VICTOZA 7-22 mg under ity of 3-АЛЕКСАНДР SC) 17:19: [place] daily. Medical Branch tamsulosin 2022-0 Yes Take by [facility] ers 0.4 mg 24 04-21 mouth ity of hr capsule 17:19: daily. [address] UBIDECAR/FI 2022-0 Yes Take by Uni vers 04-21 mouth. ity of OIL/OMEGA-3 17:19: [place] /OSMIN ([address] OIL-OMEGA 3-E ORAL) liraglutide 2022-0 Yes 1.8mg inject 1.8 Univers (VICTOZA 7-22 mg under ity of 3-АЛЕКСАНДР SC) 17:19: [place] daily. Medical Branch tamsulosin 2022-0 Yes Take by [facility] ers 0.4 mg 24 04-21 mouth ity of hr capsule 17:19: daily. [address] UBIDECAR/FI 2022-0 Yes Take by Uni vers 04-21 mouth. ity of OIL/OMEGA-3 17:19: [place] /OSMIN (SC 48 [place] [address]-FISH [place] OIL-OMEGA 3-E ORAL) liraglutide 2022-0 Yes 1.8mg inject 1.8 Univers (VICTOZA 7-22 mg under ity of 3-АЛЕКСАНДР SC) 17:19: [place] daily. Medical Branch tamsulosin 2022-0 Yes Take by [facility] ers 0.4 mg 24 - mouth ity of hr capsule 17:19: daily. [address] Branch fluconazole 2022-0 Yes 400mg 400 mg, Un todd (DIFLUCAN) - Oral, ity of tablet 400 14:00: DAILY, [place] mg 00 First dose Medical on [facility] 04/21/23 at 0900, Until Discontinu ed, NITA
Re ason for Anti-Infec tive: Documented Infection< br>Documen lora Infection Site: HEENT
D uration of Therapy: 14 days furosemide 0 Yes 40mg 40 mg, Unive rs (LASIX) 04-21 Oral, ity of tablet 40 14:00: DAILY, [place] mg 00 First dose Medical on [facility] 04/21/23 at 0900, Until Discontinu ed, Routine lisinopriL Yes 20mg 20 mg, Unive rs (PRINIVIL,Z 04-21 Oral, ity of ESTRIL) 14:00: DAILY, [place] tablet 20 00 First dose Medi purvi mg on [facility] 04/21/23 at 0900, Until Discontinu ed polyethylen Yes 17g 17 g, Unive rs e glycol 04-21 Oral, ity of 3350 powder 14:00: DAILY[place] 17 g 00 First dose Medical on [facility] 04/21/23 at 0900, Until Discontinu ed, Routine sennosides- Yes 2{tbl} 2 tablet, Univers docusate 04-21 Oral, ity of sodium 14:00: DAILY, [place] (SENOKOT-S) 00 First dose Me dical 8.6-50 mg on [facility] per tablet 04/21/23 at 2 tablet 0900, Until Discontinu ed, Routine tamsulosin Yes .4mg 0.4 mg, Univ ers (FLOMAX) 04-21 Oral, ity of capsule 0.4 14:00: [place]ILY, [place] 00 First dose Medical on [facility] 04/21/23 at 0900, Until Discontinu ed, Routine aspirin EC 0 Yes 81mg 81 mg, Unive rs tablet 81 04-21 Oral, ity of mg 14:00: DAILY, [place] 00 First dose Medical on [facility] 04/21/23 at 0900, Until Discontinu ed, Routine famotidine Yes 40mg 40 mg, Unive rs (PEPCID AC) 04-21 Oral, ity of tablet 40 14:00: DAILY, [place] mg 00 First dose Medical on [facility] 04/21/23 at 0900, Until Discontinu ed, Routine fluconazole 0 2022- No 400mg 400 mg, U dinoraers (DIFLUCAN) 7-22 07-23 Oral, ity of tablet 400 14:00: 00:19 DAILY[place] mg 00 :49 First dose Medical on [facility] Branch 04/21/23 at 0900, Until Discontinu ed, NITA
Re ason for Anti-Infec tive: Documented Infection< br>Documen lora Infection Site: HEENT
D uration of Therapy: 14 days furosemide 2022- No 40mg 40 mg, Univ ers (LASIX) 04-21 Oral, ity of tablet 40 14:00: 00:19 DAILY, [place] mg 00 :49 First dose Medical on [facility] Branch 04/21/23 at 0900, Until Discontinu ed, Routine lisinopriL No 20mg 20 mg, Univ ers (PRINIVIL,Z 04-21 Oral, ity of ESTRIL) 14:00: 00:19 DAILY, [place] tablet 20 00 :49 First dose Medi purvi mg on [facility] 04/21/23 at 0900, Until Discontinu ed polyethylen No 17g 17 g, Univ ers e glycol 04-21 Oral, ity of 3350 powder 14:00: 00:19 DAILY, [place] 17 g 00 :49 First dose Medical on [facility] 04/21/23 at 0900, Until Discontinu ed, Routine sennosides- 2022- No 2{tbl} 2 tablet, Univers docusate 04-21 Oral, ity of sodium 14:00: 00:19 DAILY, [place] (SENOKOT-S) 00 :49 First dose Me dical 8.6-50 mg on [facility] per tablet 04/21/23 at 2 tablet 0900, Until Discontinu ed, Routine tamsulosin No .4mg 0.4 mg, Uni vers (FLOMAX) 04-21 Oral, ity of capsule 0.4 14:00: 00:19 DAILY, [place] mg 00 :49 First dose Medical on [facility] 04/21/23 at 0900, Until Discontinu ed, Routine aspirin EC No 81mg 81 mg, Univ ers tablet 81 04-21 Oral, ity of mg 14:00: 00:19 DAILY, [place] 00 :49 First dose Medical on [facility] Branch 04/21/23 at 0900, Until Discontinu ed, Routine famotidine No 40mg 40 mg, Univ ers (PEPCID AC) 04-21 Oral, ity of tablet 40 14:00: 00:19 DAILY, [place] mg 00 :49 First dose Medical on [facility] 04/21/23 at 0900, Until Discontinu ed, Routine metroNIDAZO 2022- Yes 500mg 500 mg, U nivers LE (FLAGYL) 04-21 08-05 Oral, Q8H, i ty of tablet 500 03:00: 02:59 42 doses, [place] mg 00 :00 First dose Medical on [facility] 04/20/23 at 2200, Last dose on Sun05/04/23 at 1400, Routine
Reason for Anti-Infec tive: Documented Infection< br>Documen lora Infection Site: HEENT
D uration of Therapy: 14 days metroNIDAZO 2022- No 500mg 500 mg, U nivers LE (FLAGYL) 04-21 Oral, Q8H, i ty of tablet 500 03:00: 00:19 42 doses, [place] mg 00 :48 First dose Medical on [facility] 04/20/23 at 2200, Last dose on Sun05/04/23 at 1400, Routine
Reason for Anti-Infec tive: Documented Infection< br>Documen lora Infection Site: HEENT
D uration of Therapy: 14 days atorvastati Yes 80mg 80 mg, Univ ers n (LIPITOR) 04-21 Oral, QHS, it y of tablet 80 02:00: [place] mg 00 on Sun Medical 04/20/23 at Branch 2100, Until Discontinu ed, Routine artificial Yes 1[drp] 1 Drop, Un todd tears 04-21 Left Eye, ity of (hypromello 02:00: QHS, First [place] se) 00 dose on Medical (GENTEAL [place] Branch TEARS 04/20/23 at SEVERE GEL) 2100, 0.3 % Until ophthalmic Discontinu gel 1 Drop ed, Routine atorvastati 2022- No 80mg 80 mg, Uni vers n (LIPITOR) 04-21 Oral, QHS, i ty of tablet 80 02:00: 00:19 First dose [place] mg 00 :49 on Fri Medical 04/20/23 at Branch 2100, Until Discontinu ed, Routine artificial 2022- No 1[drp] 1 Drop, U nivers tears 04-21 Left Eye, ity of (hypromello 02:00: 00:19 QHS, First [place] se) 00 :49 dose on Medical (GENTEAL Fri Branch TEARS 04/20/23 at SEVERE GEL) 2100, 0.3 % Until ophthalmic Discontinu gel 1 Drop ed, Routine ciprofloxac 2022- Yes [id number] 4[drp] Place 4 Univers in-dexameth 04-21 [id number] Drops in it y of asone 00:00: 04:59 left ear [place] (CIPRODEX) 00 :00 in the Medical 0.3-0.1 % morning Branch otic drops and 4 Drops in the evening. Do all this for 90 days. ciprofloxac 2022- Yes [id number] 4[drp] Place 4 Univers in-dexameth 04-21 [id number] Drops in it y of asone 00:00: 04:59 left ear [place] (CIPRODEX) 00 :00 in the Medical 0.3-0.1 % morning Branch otic drops and 4 Drops in the evening. Do all this for 90 days. ciprofloxac 2022- Yes [id number] 4[drp] Place 4 Univers in-dexameth 04-21 [id number] Drops in it y of asone 00:00: 04:59 left ear [place] (CIPRODEX) 00 :00 in the Medical 0.3-0.1 % morning Branch otic drops and 4 Drops in the evening. Do all this for 90 days. ciprofloxac 2022- Yes [id number] 4[drp] Place 4 Univers in-dexameth 04-21 [id number] Drops in it y of asone 00:00: 04:59 left ear [place] (CIPRODEX) 00 :00 in the Medical 0.3-0.1 % morning Branch otic drops and 4 Drops in the evening. Do all this for 90 days. ciprofloxac 2022- Yes [id number] 4[drp] Place 4 Univers in-dexameth 04-21 23943 Drops in it y of asone 00:00: 04:59 left ear [place] (CIPRODEX) 00 :00 in the Medical 0.3-0.1 % morning Branch otic drops and 4 Drops in the evening. Do all this for 90 days. ciprofloxac 2022- Yes [id number] 4[drp] Place 4 Univers in-dexameth 04-21 [id number] Drops in it y of asone 00:00: 04:59 left ear [place] (CIPRODEX) 00 :00 in the Medical 0.3-0.1 % morning Branch otic drops and 4 Drops in the evening. Do all this for 90 days. ciprofloxac 2022- Yes [id number] 4[drp] Place 4 Univers in-dexameth 04-21 [id number] Drops in it y of asone 00:00: 04:59 left ear [place] (CIPRODEX) 00 :00 in the Medical 0.3-0.1 % morning Branch otic drops and 4 Drops in the evening. Do all this for 90 days. ciprofloxac 2022- Yes [id number] 4[drp] Place 4 Univers in-dexameth 04-21 [id number] Drops in it y of asone 00:00: 04:59 left ear [place] (CIPRODEX) 00 :00 in the Medical 0.3-0.1 % morning Branch otic drops and 4 Drops in the evening. Do all this for 90 days. ciprofloxac 2022- Yes [id number] 4[drp] Place 4 Univers in-dexameth 04-21 21505 Drops in it y of asone 00:00: 04:59 left ear [place] (CIPRODEX) 00 :00 in the Medical 0.3-0.1 % morning Branch otic drops and 4 Drops in the evening. Do all this for 90 days. ciprofloxac 2022- Yes [id number] 4[drp] Place 4 Univers in-dexameth 04-21 [id number] Drops in it y of asone 00:00: 04:59 left ear [place] (CIPRODEX) 00 :00 in the Medical 0.3-0.1 % morning Branch otic drops and 4 Drops in the evening. Do all this for 90 days. ciprofloxac 2022- Yes [id number] 4[drp] Place 4 Univers in-dexameth 04-21 [id number] Drops in it y of asone 00:00: 04:59 left ear [place] (CIPRODEX) 00 :00 in the Medical 0.3-0.1 % morning Branch otic drops and 4 Drops in the evening. Do all this for 90 days. ciprofloxac 2022- Yes [id number] 4[drp] Place 4 Univers in-dexameth 04-21 [id number] Drops in it y of asone 00:00: 04:59 left ear [place] (CIPRODEX) 00 :00 in the Medical 0.3-0.1 % morning Branch otic drops and 4 Drops in the evening. Do all this for 90 days. ciprofloxac 2022- Yes [id number] 4[drp] Place 4 Univers in-dexameth 04-21 [id number] Drops in it y of asone 00:00: 04:59 left ear [place] (CIPRODEX) 00 :00 in the Medical 0.3-0.1 % morning Branch otic drops and 4 Drops in the evening. Do all this for 90 days. ciprofloxac 2022- Yes [id number] 4[drp] Place 4 Univers in-dexameth 04-21 47904 Drops in it y of asone 00:00: 04:59 left ear [place] (CIPRODEX) 00 :00 in the Medical 0.3-0.1 % morning Branch otic drops and 4 Drops in the evening. Do all this for 90 days. ciprofloxac 2022- Yes [id number] 4[drp] Place 4 Univers in-dexameth 04-21 [id number] Drops in it y of asone 00:00: 04:59 left ear [place] (CIPRODEX) 00 :00 in the Medical 0.3-0.1 % morning Branch otic drops and 4 Drops in the evening. Do all this for 90 days. ciprofloxac 2022- Yes [id number] 4[drp] Place 4 Univers in-dexameth 04-21 87844 Drops in it y of asone 00:00: 04:59 left ear [place] (CIPRODEX) 00 :00 in the Medical 0.3-0.1 % morning Branch otic drops and 4 Drops in the evening. Do all this for 90 days. ciprofloxac 2022- Yes [id number] 4[drp] Place 4 Univers in-dexameth 04-21 [id number] Drops in it y of asone 00:00: 04:59 left ear [place] (CIPRODEX) 00 :00 in the Medical 0.3-0.1 % morning Branch otic drops and 4 Drops in the evening. Do all this for 90 days. ciprofloxac 2022- Yes [id number] 4[drp] Place 4 Univers in-dexameth 04-21 [id number] Drops in it y of asone 00:00: 04:59 left ear [place] (CIPRODEX) 00 :00 in the Medical 0.3-0.1 % morning Branch otic drops and 4 Drops in the evening. Do all this for 90 days. ciprofloxac 2022- Yes [id number] 4[drp] Place 4 Univers in-dexameth 04-21 [id number] Drops in it y of asone 00:00: 04:59 left ear [place] (CIPRODEX) 00 :00 in the Medical 0.3-0.1 % morning Branch otic drops and 4 Drops in the evening. Do all this for 90 days. ciprofloxac 2022- Yes [id number] 4[drp] Place 4 Univers in-dexameth 04-21 [id number] Drops in it y of asone 00:00: 04:59 left ear [place] (CIPRODEX) 00 :00 in the Medical 0.3-0.1 % morning Branch otic drops and 4 Drops in the evening. Do all this for 90 days. ciprofloxac 2022- Yes [id number] 4[drp] Place 4 Univers in-dexameth 04-21 45749 Drops in it y of asone 00:00: 04:59 left ear [place] (CIPRODEX) 00 :00 in the Medical 0.3-0.1 % morning Branch otic drops and 4 Drops in the evening. Do all this for 90 days. ciprofloxac 2022- Yes [id number] 4[drp] Place 4 Univers in-dexameth 04-21 [id number] Drops in it y of asone 00:00: 04:59 left ear [place] (CIPRODEX) 00 :00 in the Medical 0.3-0.1 % morning Branch otic drops and 4 Drops in the evening. Do all this for 90 days. ciprofloxac 2022- Yes [id number] 4[drp] Place 4 Univers in-dexameth 04-21 [id number] Drops in it y of asone 00:00: 04:59 left ear [place] (CIPRODEX) 00 :00 in the Medical 0.3-0.1 % morning Branch otic drops and 4 Drops in the evening. Do all this for 90 days. ciprofloxac 2022- Yes [id number] 4[drp] Place 4 Univers in-dexameth 04-21 [id number] Drops in it y of asone 00:00: 04:59 left ear [place] (CIPRODEX) 00 :00 in the Medical 0.3-0.1 % morning Branch otic drops and 4 Drops in the evening. Do all this for 90 days. ciprofloxac 2022- Yes [id number] 4[drp] Place 4 Univers in-dexameth 04-21 [id number] Drops in it y of asone 00:00: 04:59 left ear [place] (CIPRODEX) 00 :00 in the Medical 0.3-0.1 % morning Branch otic drops and 4 Drops in the evening. Do all this for 90 days. ciprofloxac 2022- Yes [id number] 4[drp] Place 4 Univers in-dexameth 04-21 [id number] Drops in it y of asone 00:00: 04:59 left ear [place] (CIPRODEX) 00 :00 in the Medical 0.3-0.1 % morning Branch otic drops and 4 Drops in the evening. Do all this for 90 days. ciprofloxac 2022- Yes [id number] 4[drp] Place 4 Univers in-dexameth 04-21 [id number] Drops in it y of asone 00:00: 04:59 left ear [place] (CIPRODEX) 00 :00 in the Medical 0.3-0.1 % morning Branch otic drops and 4 Drops in the evening. Do all this for 90 days. ciprofloxac 2022- Yes [id number] 4[drp] Place 4 Univers in-dexameth 04-21 [id number] Drops in it y of asone 00:00: 04:59 left ear [place] (CIPRODEX) 00 :00 in the Medical 0.3-0.1 % morning Branch otic drops and 4 Drops in the evening. Do all this for 90 days. ciprofloxac 2022- Yes [id number] 4[drp] Place 4 Univers in-dexameth 04-21 [id number] Drops in it y of asone 00:00: 04:59 left ear [place] (CIPRODEX) 00 :00 in the Medical 0.3-0.1 % morning Branch otic drops and 4 Drops in the evening. Do all this for 90 days. ciprofloxac 2022- Yes [id number] 4[drp] Place 4 Univers in-dexameth 04-21 [id number] Drops in it y of asone 00:00: 04:59 left ear [place] (CIPRODEX) 00 :00 in the Medical 0.3-0.1 % morning Branch otic drops and 4 Drops in the evening. Do all this for 90 days. levoFLOXaci 2022- Yes [id number] 500mg Take 1 Univers n 500 mg 04-21 [id number] tablet by ity of tablet 00:00: 04:59 mouth [place] 00 :00 every 24 Medical (twenty-fo Branch ur) hours for 20 days. levoFLOXaci 2022- Yes [id number] 500mg Take 1 Univers n 500 mg 04-21 [id number] tablet by ity of tablet 00:00: 04:59 mouth [place] 00 :00 every 24 Medical ([facility] ur) hours for 20 days. levoFLOXaci 2022- Yes [id number] 500mg Take 1 Univers n 500 mg 04-21 [id number] tablet by ity of tablet 00:00: 04:59 mouth [place] 00 :00 every 24 Medical ([facility] ur) hours for 20 days. levoFLOXaci 2022- Yes [id number] 500mg Take 1 Univers n 500 mg 04-21 [id number] tablet by ity of tablet 00:00: 04:59 mouth [place] 00 :00 every 24 Medical ([facility]) hours for 20 days. levoFLOXaci 2022- Yes [id number] 500mg Take 1 Univers n 500 mg 04-21 [id number] tablet by ity of tablet 00:00: 04:59 mouth [place] 00 :00 every 24 Medical ([facility] ur) hours for 20 days. levoFLOXaci 2022- Yes [id number] 500mg Take 1 Univers n 500 mg 04-21 [id number] tablet by ity of tablet 00:00: 04:59 mouth [place] 00 :00 every 24 Medical ([facility]) hours for 20 days. levoFLOXaci 2022- Yes [id number] 500mg Take 1 Univers n 500 mg 04-21 [id number] tablet by ity of tablet 00:00: 04:59 mouth [place] 00 :00 every 24 Medical ([facility] ur) hours for 20 days. levoFLOXaci 2022- Yes [id number] 500mg Take 1 Univers n 500 mg 04-21 [id number] tablet by ity of tablet 00:00: 04:59 mouth [place] 00 :00 every 24 Medical ([facility] ur) hours for 20 days. levoFLOXaci 2022- No [id number] 500mg Take 1 Univers n 500 mg 04-21 [id number] tablet by ity of tablet 00:00: 04:59 mouth [place] 00 :00 every 24 Medical (twenty-fo Branch ur) hours for 20 days. metroNIDAZO 2022-0 2022- No [id number] 500mg Take 1 Univers LE 500 mg 04-21 tablet by ity of tablet 00:00: 00:00 mouth [place] 00 :00 every 8 Medical (eight) Branch hours for 20 days. metroNIDAZO 2022-0 2022- No [id number] 500mg Take 1 Univers LE 500 mg 04-21 tablet by ity of tablet 00:00: 00:00 mouth [place] 00 :00 every 8 Medical (eight) Branch hours for 20 days. acetaminoph 0 Yes 650mg 650 mg, Un todd en 04-20 Oral, Q6H, ity of (TYLENOL) 23:00: First dose [place] tablet 650 00 on Fri Medical mg 04/20/23 at Branch 1800, Until Discontinu ed, Routine acetaminoph 0 2022- No 650mg 650 mg, U nivers en 04-20 Oral, Q6H, ity of (TYLENOL) 23:00: 00:19 First dose [place] tablet 650 00 :49 on Fri Medical mg 04/20/23 at Branch 1800, Until Discontinu ed, Routine insulin 2022-0 Yes 23U 23 Units, Unive rs glargine 04-20 Subcutaneo ity o f (LANTUS 22:45: us, Q24H, [place] U-100) 00 First dose Medical injection on Fri Branch 23 Units 04/20/23 at 1745, Until Discontinu ed, Routine insulin 2022-0 2022- No 23U 23 Units, Univ ers glargine 04-20 Subcutaneo ity of (LANTUS 22:45: 00:19 us, Q24H, [place] U-100) 00 :48 First dose Medical injection on Fri Branch 23 Units 04/20/23 at 1745, Until Discontinu ed, Routine insulin 2022-0 Yes 5U 5 Units, Univer s lispro 04-20 Subcutaneo ity of (human) 22:00: us, TID [place] (HumaLOG 00 MEALS, Medical U-100) First dose Branch injection 5 on Fri Units 04/20/23 at 1700, Until Discontinu ed, Routine Sliding 2022-0 Yes Subcutaneo Univ ers Scale 04-20 us, TID ity of Insulin - 22:00: MEALS+HS, [place] Lispro 00 First dose Medical (HumaLOG) on Sun Branch 04/20/23 at 1700, Until Discontinu ed, Routine carvediloL Yes 12.5mg 12.5 mg, U nivers (COREG) 04-20 Oral, BID ity of tablet 12.5 22:00: MEALS, [place] mg 00 First dose Medical on [place] Branch 04/20/23 at 1700, Until Discontinu ed, Routine enoxaparin Yes 40mg 40 mg, Unive rs (LOVENOX) 04-20 Subcutaneo ity of injection 22:00: [place], DAILY, [place] 40 mg 00 First dose Medical on [place] Branch 04/20/23 at 1700, Until Discontinu ed, Routine insulin 2022- No 5U 5 Units, Unive rs lispro 04-20 Subcutaneo ity of (human) 22:00: 00:19 us, TID [place] (HumaLOG 00 :48 MEALS, Medical U-100) First dose Branch injection 5 on Fri Units 04/20/23 at 1700, Until Discontinu ed, Routine Sliding 2022- No Subcutaneo Uni vers Scale 04-20 us, TID ity of Insulin - 22:00: 00:19 MEALS+HS, [place] Lispro 00 :48 First dose Medical (HumaLOG) on Sun Branch 04/20/23 at 1700, Until Discontinu ed, Routine carvediloL 2022- No 12.5mg 12.5 mg, Univers (COREG) 04-20 Oral, BID ity of tablet 12.5 22:00: 00:19 MEALS, [place] mg 00 :49 First dose Medical on Sun Branch 04/20/23 at 1700, Until Discontinu ed, Routine enoxaparin 2022- No 40mg 40 mg, Univ ers (LOVENOX) 04-20 Subcutaneo ity of injection 22:00: 00:19 us, DAILY, [place] 40 mg 00 :49 First dose Medical on Sun Branch 04/20/23 at 1700, Until Discontinu ed, Routine lactated 2022-0 Yes 500mL at 75 Univers ringers IV - mL/hr, 500 ity of infusion 20:45: mL, IV [place] 500 mL 00 Infusion, Medical CONTINUOUS Branch , Starting on Sun04/20/23 at 1545, Until Discontinu ed, Routine, PACU lactated 2022-0 2022- No 500mL at 75 Univer s ringers IV 04-20- mL/hr, 500 it y of infusion 20:45: 00:19 mL, IV [place] 500 mL 00 :49 Infusion, Medical CONTINUOUS Branch , Starting on Sun04/20/23 at 1545, Until 04/21/23 at 1919, Routine, PACU bacitracin 2022- No PRN, Univer s 500 unit/g 04-20 Starting ity of ointment 30 20:26: 20:50 on Sun [place] g tube 00 :06 04/20/23 at Medical 1526, Branch Until Sun04/20/23 at 1550, Routine, Intra-op dextrose 0 Yes 250mL 250 mL, IV Un todd 10% (D10W) 04-20 Infusion, ity of bolus 20:18: PRN - SEE [place] infusion 04 INSTRUCTIO Medic al 250 mL NS, Branch Administer over 60 Minutes, Other, If blood glucose is < or = 70 mg/dL and patient is unable to swallow or has mental status changes, Starting on Sun04/20/23 at 1518
If blood glucose is < or = 70 mg/dL and patient is unable to swallow or has mental status changes (Give glucagon order if patient needs fluid restrictio n): IF IV access available: Dextrose 10%. 1. 125 mL (? bag) of D10W IV infusion - equivalent to 12.5 g dextrose 2. Blood glucose - draw blood glucose 15 minutes after D10W Administra tion. 3. If blood glucose is < 80 mg/dL, repeat.
dextrose 2022-0 2022- No 250mL 250 mL, IV U nivers 10% (D10W) 04-20 Infusion, ity of bolus 20:18: 00:19 PRN - SEE [place] infusion 04 :49 INSTRUCTIO Medic al 250 mL NS, Branch Administer over 60 Minutes, Other, If blood glucose is < or = 70 mg/dL and patient is unable to swallow or has mental status changes, Starting on Sun04/20/23 at 1518
If blood glucose is < or = 70 mg/dL and patient is unable to swallow or has mental status changes (Give glucagon order if patient needs fluid restrictio n): IF IV access available: Dextrose 10%. 1. 125 mL (? bag) of D10W IV infusion - equivalent to 12.5 g dextrose 2. Blood glucose - draw blood glucose 15 minutes after D10W Administra tion. 3. If blood glucose is < 80 mg/dL, repeat.
glucagon 2022-0 Yes 1mg 1 mg, Univers (GLUCAGEN 04-20 Intramuscu ity of DIAGNOSTIC 20:18: [place], [place]) 01 Starting Medical injection 1 on Sun [facility] 04/20/23 at 1518, Until Discontinu ed, NITA, Blood Glucose < or = 70 mg/dL and patient is NPO, unable to swallow or has mental changes. glucagon 0 2022- No 1mg 1 mg, Univers (GLUCAGEN 04-20 Intramuscu ity of DIAGNOSTIC 20:18: 00:19 [place], PRN, [place] KIT) 01 :49 Starting Medical injection 1 on Sun [facility] 04/20/23 at 1518, Until 04/21/23 at 1919, NITA, Blood Glucose < or = 70 mg/dL and patient is NPO, unable to swallow or has mental changes. gabapentin 2022-0 Yes 300mg 300 mg, Uni vers (NEURONTIN) 04-20 Oral, TID, it y of capsule 300 19:00: First dose [place] mg 00 on Sun Medical 04/20/23 at Branch 1400, Until Discontinu ed, Routine gabapentin 2022-0 2023- No 300mg 300 mg, Un todd (NEURONTIN) 04-20 Oral, TID, i ty of capsule 300 19:00: 00:19 First dose [place] mg 00 :49 on Fri Medical 04/20/23 at Branch 1400, Until Discontinu ed, Routine ofloxacin 2022- No PRN, Univers (FLOXIN) 04-20 Starting ity of 0.3 % otic 18:25: 20:50 [place] drops 00 :06 04/20/23 at Medical 1325, Branch Until 04/20/23 at 1550, Routine, Intra-op lidocaine-e 2022- No PRN, Unive rs pinephrine 04-20 Starting ity of (XYLOCAINE 18:24: 20:50 on Fri [place] WITH 00 :06 04/20/23 at Medical EPINEPHRINE 1324, [place] ) 1 Until Fri %-1:100,000 04/20/23 at injection 1550, Routine, Intra-op diclofenac Yes 50mg 50 mg, Unive rs (VOLTAREN) 04-20 Oral, ity of EC tablet 17:42: TIDPRN [place] 50 mg 10 MEALS, [facility] on 04/20/23 at 1242, Until Discontinu ed, Pain
Fa culty member approving Restricted medication : JEAN-PIERREBERTRANDDELANO STEWARTOKO diclofenac 2022- No 50mg 50 mg, Univ ers (VOLTAREN) 04-20 Oral, ity of EC tablet 17:42: 00:19 TIDPRN [place] 50 mg 10 :49 MEALS, [facility] on 04/20/23 at 1242, Until 04/21/23 at 1919, Pain
Fa culty member approving Restricted medication : JEAN-PIERRESUSAN EDGAR artificial Yes 1[drp] 1 Drop, Un todd tears(hypro 04-20 Left Eye, ity of mellose) 17:35: PRN, Yesi (ISOPTO-TEA 16 Starting Medi purvi RS) 0.5 % on Fri [place] ophthalmic 04/20/23 at drops 1 1235, Drop Until Discontinu ed, Routine, Dry eyes artificial 2022- No 1[drp] 1 Drop, U nivers tears(hypro 04-20 Left Eye, it y of mellose) 17:35: 00:19 PRN, Yesi (ISOPTO-TEA 16 :49 Starting Medi purvi RS) 0.5 % on Sun Branch ophthalmic 04/20/23 at drops 1 1235, Drop Until 04/21/23 at 1919, Routine, Dry eyes cyclobenzap 2023-0 Yes 10mg 10 mg, Univ ers rine 04-20 Oral, ity of (FLEXERIL) 17:34: TIDPRN, [place] tablet 10 37 Starting Medica l mg on Sun Branch 04/20/23 at 1234, Until Discontinu ed, Routine, Muscle Spasms cyclobenzap 2022-0 2023- No 10mg 10 mg, Uni vers rine 04-20 Oral, ity of (FLEXERIL) 17:34: 00:19 TIDPRN, [place] tablet 10 37 :49 Starting Medica l mg on Fri Branch 04/20/23 at 1234, Until 04/21/23 at 1919, Routine, Muscle Spasms ondansetron 3-0 Yes 4mg 4 mg, Slow Univers (ZOFRAN 04-20 IV Push, ity of (PF)) 17:08: Q6HPRN [place] injection 4 45 Starting Medi purvi mg on Sun Branch 04/20/23 at 1208, Until Discontinu ed, Routine, Nausea and Vomiting (N/V) ondansetron 3-0 2022- No 4mg 4 mg, Slow Univers (ZOFRAN 04-20 IV Push, ity of (PF)) 17:08: 00:19 Q6HPRN [place] injection 4 45 :49 Starting Medi purvi mg on Sun Branch 04/20/23 at 1208, Until 04/21/23 at 1919, Routine, Nausea and Vomiting (N/V) oxyCODONE 3-0 Yes 10mg 10 mg, Univer s immediate 04-20 Oral, ity of release 17:08: Q6HPRN [place] tablet 10 17 Starting Medica l mg on Sun Branch 04/20/23 at 1208, Until Discontinu ed, Routine, Pain (scale 7-10)<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
F aculty member approving Restricted medication : EDGAR VALLE multivitami 2022- No 1{tbl} Take 1 U nivers n tablet 04-20 tablet by ity o f 12:42: 00:00 mouth in [place] 45 :00 the Medical morning. [place] multivitami 2022- No 1{tbl} Take 1 U nivers n tablet 04-20 tablet by ity o f 12:42: 00:00 mouth in [place] 45 :00 the Medical morning. [place] multivitami 2022- No 1{tbl} Take 1 U nivers n tablet 04-20 tablet by ity o f 12:42: 00:00 mouth in [place] 45 :00 the Medical morning. [place] multivitami 2022- No 1{tbl} Take 1 U nivers n tablet 04-20 tablet by ity o f 12:42: 00:00 mouth in [place] 45 :00 the Medical morning. [place] multivitami 2022- No 1{tbl} Take 1 U nivers n tablet 04-20 tablet by ity o f 12:42: 00:00 mouth in [place] 45 :00 the Medical morning. [place] multivitami 2022- No 1{tbl} Take 1 U nivers n tablet 04-20 tablet by ity o f 12:42: 00:00 mouth in [place] 45 :00 the Medical morning. [place] multivitami 2022- No 1{tbl} Take 1 U nivers n tablet 04-20 tablet by ity o f 12:42: 00:00 mouth in [place] 45 :00 the Medical morning. [place] ceFEPIme 2022- No 2000mg 2,000 mg, U nivers (MAXIPIME) 04-20 08-04 IV ity of 2,000 mg in 07:30: 07:29 [place], [place] NaCl 0.9% 00 :00 Q12H ABX, Medic al (NS) 100 mL 28 doses, [place] MINI-BAG First dose on [facility] 04/21/23 at 0230, Last dose on [place] 05/03/23 at 1430, Administer over 4 Hours, 100 mL
Reas on for Anti-Infec tive: Documented Infection& lt;br>Docu mented Infection Site: HEENT
D uration of Therapy: 14 days ceFEPIme 2022- No 2000mg 2,000 mg, U nivers (MAXIPIME) 04-20 IV ity of 2,000 mg in 07:30: 00:19 [place], [place] NaCl 0.9% 00 :48 Q12H ABX, Medic al (NS) 100 mL 28 doses, [place] MINI-BAG First dose on [facility] 04/21/23 at 0230, Last dose on [place] 05/03/23 at 1430, Administer over 4 Hours, 100 mL
Reas on for Anti-Infec tive: Documented Infection& lt;br>Docu mented Infection Site: HEENT
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
Reas on for Anti-Infec tive: Documented Infection< br>Documen lora Infection Site: HEENT
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
Reas on for Anti-Infec tive: Documented Infection< br>Documen lora Infection Site: HEENT
D uration of Therapy: 14 days metFORMIN 0 Yes 1000mg Take 1 Univ ers 1,000 mg 7-18 tablet by ity of tablet 17:02: mouth in [place] [address] the Medical [facility] Branch and 1 tablet in the evening. Take with meals. UBIDECAR/FI Yes Take by Uni vers SH 7-18 mouth. ity of OIL/OMEGA-3 17:02: [place] /OSMIN ([address] [place] OIL-OMEGA 3-E ORAL) liraglutide Yes 1.8mg inject 1.8 Univers (VICTOZA 7-18 mg under ity of 3-АЛЕКСАНДР SC) 17:02: the skin [place] [address] daily. Medical Branch tamsulosin Yes Take by Univ ers 0.4 mg 24 7-18 mouth ity of hr capsule 17:02: daily. [address] multivitami Yes 1{tbl} Take 1 Un todd n tablet 7-18 tablet by ity of 17:02: mouth in [place] [address] the [facility]. Branch CALCIUM-MAG Yes Take by Uni vers NESIUM-ZINC 7-18 mouth ity of ORAL 17:02: daily. [address] metFORMIN Yes 1000mg Take 1 Univ ers 1,000 mg 7-18 tablet by ity of tablet 17:02: mouth in [place] [address] the [facility] Branch and 1 tablet in the evening. Take with meals. UBIDECAR/FI Yes Take by Uni vers SH 7-18 mouth. ity of OIL/OMEGA-3 17:02: [place] /OSMIN ([address] [place] OIL-OMEGA 3-E ORAL) liraglutide Yes 1.8mg inject 1.8 Univers (VICTOZA 7-18 mg under ity of 3-АЛЕКСАНДР SC) 17:02: the skin [facility] 31 daily. Medical Branch tamsulosin Yes Take by Univ ers 0.4 mg 24 7-18 mouth ity of hr capsule 17:02: daily. [address] multivitami 2022-0 Yes 1{tbl} Take 1 Un todd n tablet 7-18 tablet by ity of 17:02: mouth in [place] [address] the Medical morning. Branch CALCIUM-MAG 0 Yes Take by Uni vers NESIUM-ZINC 7-18 mouth ity of ORAL 17:02: daily. [address] metFORMIN 2022-0 Yes 1000mg Take 1 Univ ers 1,000 mg 7-18 tablet by ity of tablet 17:02: mouth in [place] [address] the [facility] morning Branch and 1 tablet in the evening. Take with meals. UBIDECAR/FI 2022-0 Yes Take by Uni vers SH 7-18 mouth. ity of OIL/OMEGA-3 17:02: [place] /OSMIN ([address] OIL-OMEGA 3-E ORAL) liraglutide 0 Yes 1.8mg inject 1.8 Univers (VICTOZA 7-18 mg under ity of 3-АЛЕКСАНДР SC) 17:02: the skin [facility] s daily. Medical Branch tamsulosin Yes Take by Univ ers 0.4 mg 24 7-18 mouth ity of hr capsule 17:02: daily. [address] multivitami Yes 1{tbl} Take 1 Un todd n tablet 7-18 tablet by ity of 17:02: mouth in [place] [address] the [facility] morning. Branch CALCIUM-MAG Yes Take by Uni vers NESIUM-ZINC 7-18 mouth ity of ORAL 17:02: daily. [address] metFORMIN 2022-0 Yes 1000mg Take 1 Univ ers 1,000 mg 7-18 tablet by ity of tablet 17:02: mouth in [place] [address] the [facility] morning Branch and 1 tablet in the evening. Take with meals. UBIDECAR/FI 2022-0 Yes Take by Uni vers SH 7-18 mouth. ity of OIL/OMEGA-3 17:02: [place] /OSMIN ([address] [place] OIL-OMEGA 3-E ORAL) liraglutide 2022-0 Yes 1.8mg inject 1.8 Univers (VICTOZA 7-18 mg under ity of 3-АЛЕКСАНДР SC) 17:02: the skin [facility] s 31 daily. Medical Branch tamsulosin 0 Yes Take by Univ ers 0.4 mg 24 7-18 mouth ity of hr capsule 17:02: daily. [address] Branch multivitami 2022-0 Yes 1{tbl} Take 1 Un todd n tablet 7-18 tablet by ity of 17:02: mouth in [place] [address] the Medical morning. Branch CALCIUM-MAG 0 Yes Take by Uni vers NESIUM-ZINC 7-18 mouth ity of ORAL 17:02: daily. [address] Branch metFORMIN 2022-0 Yes 1000mg Take 1 Univ ers 1,000 mg 7-18 tablet by ity of tablet 17:02: mouth in [place] [address] the Medical morning Branch and 1 tablet in the evening. Take with meals. UBIDECAR/FI 2022-0 Yes Take by Uni vers SH 7-18 mouth. ity of OIL/OMEGA-3 17:02: [place] /OSMIN ([place] [address]FISH [place] OIL-OMEGA 3-E ORAL) liraglutide 2022-0 Yes 1.8mg inject 1.8 Univers (VICTOZA 7-18 mg under ity of 3-АЛЕКСАНДР SC) 17:02: the [place] [address] daily. Medical Branch tamsulosin Yes Take by Univ ers 0.4 mg 24 7-18 mouth ity of hr capsule 17:02: daily. [address] Branch multivitami 0 Yes 1{tbl} Take 1 Un todd n tablet 7-18 tablet by ity of 17:02: mouth in [place] [address] the Medical morning. Branch CALCIUM-MAG Yes Take by Uni vers NESIUM-ZINC 7-18 mouth ity of ORAL 17:02: daily. [address] Branch metFORMIN 2022-0 Yes 1000mg Take 1 Univ ers 1,000 mg 7-18 tablet by ity of tablet 17:02: mouth in [place] [address] the Medical morning Branch and 1 tablet in the evening. Take with meals. UBIDECAR/FI 2022-0 Yes Take by Uni vers SH 7-18 mouth. ity of OIL/OMEGA-3 17:02: [place] /OSMIN ([place] [address]F[place] OIL-OMEGA 3-E ORAL) liraglutide 2022-0 Yes 1.8mg inject 1.8 Univers (VICTOZA 7-18 mg under ity of 3-АЛЕКСАНДР SC) 17:02: [place] daily. Medical Branch tamsulosin 2022-0 Yes Take by Univ ers 0.4 mg 24 7-18 mouth ity of hr capsule 17:02: daily. [address] Branch multivitami 2022-0 Yes 1{tbl} Take 1 Un todd n tablet 7-18 tablet by ity of 17:02: mouth in [place] [address] the Medical morning. Branch CALCIUM-MAG 0 Yes Take by Uni vers NESIUM-ZINC 7-18 mouth ity of ORAL 17:02: daily. [address] Branch metFORMIN 2022-0 Yes 1000mg Take 1 Univ ers 1,000 mg 7-18 tablet by ity of tablet 17:02: mouth in [place] [address] the [facility] morning Branch and 1 tablet in the evening. Take with meals. UBIDECAR/FI 2022-0 Yes Take by Uni vers SH 7-18 mouth. ity of OIL/OMEGA-3 17:02: [place] /OSMIN ([place] [address] OIL-OMEGA 3-E ORAL) liraglutide 2022-0 Yes 1.8mg inject 1.8 Univers (VICTOZA 7-18 mg under ity of 3-АЛЕКСАНДР SC) 17:02: [place] daily. Medical Branch tamsulosin 0 Yes Take by Univ ers 0.4 mg 24 7-18 mouth ity of hr capsule 17:02: daily. [address] multivitami 0 Yes 1{tbl} Take 1 Un todd n tablet 7-18 tablet by ity of 17:02: mouth in [place] [address] the Medical morning. Branch CALCIUM-MAG 0 Yes Take by Uni vers NESIUM-ZINC 7-18 mouth ity of ORAL 17:02: daily. [address] metFORMIN 2022-0 Yes 1000mg Take 1 Univ ers 1,000 mg 7-18 tablet by ity of tablet 17:02: mouth in [place] [address] the [facility] morning Branch and 1 tablet in the evening. Take with meals. UBIDECAR/FI 2022-0 Yes Take by Uni vers SH 7-18 mouth. ity of OIL/OMEGA-3 17:02: [place] /OSMIN ([place] [address] OIL-OMEGA 3-E ORAL) liraglutide 2022-0 Yes 1.8mg inject 1.8 Univers (VICTOZA 7-18 mg under ity of 3-АЛЕКСАНДР SC) 17:02: [place] daily. Medical Branch tamsulosin 2022-0 Yes Take by Univ ers 0.4 mg 24 7-18 mouth ity of hr capsule 17:02: daily. [address] Branch multivitami 2022-0 Yes 1{tbl} Take 1 Un tdod n tablet 7-18 tablet by ity of 17:02: mouth in [place] [address] the Medical morning. Branch CALCIUM-MAG 2022-0 Yes Take by Uni vers NESIUM-ZINC 7-18 mouth ity of ORAL 17:02: daily. [address] Branch metFORMIN 2022-0 Yes 1000mg Take 1 Univ ers 1,000 mg 7-18 tablet by ity of tablet 17:02: mouth in [place] [address] the Medical morning Branch and 1 tablet in the evening. Take with meals. UBIDECAR/FI 2022-0 Yes Take by Uni vers SH 7-18 mouth. ity of OIL/OMEGA-3 17:02: [place] /OSMIN ([address] L[address]-JNAD Branch OIL-OMEGA 3-E ORAL) liraglutide 2022-0 Yes 1.8mg inject 1.8 Univers (VICTOZA 7-18 mg under ity of 3-АЛЕКСАНДР SC) 17:02: [place] daily. Medical Branch tamsulosin 2022-0 Yes Take by Univ ers 0.4 mg 24 7-18 mouth ity of hr capsule 17:02: daily. [address] Branch multivitami 2022-0 Yes 1{tbl} Take 1 Un todd n tablet 7-18 tablet by ity of 17:02: mouth in [place] [address] the Medical morning. Branch CALCIUM-MAG 2022-0 Yes Take by Uni vers NESIUM-ZINC 7-18 mouth ity of ORAL 17:02: daily. [address] Branch metFORMIN 2022-0 Yes 1000mg Take 1 Univ ers 1,000 mg 7-18 tablet by ity of tablet 10:37: mouth in [place] [address] the Medical morning Branch and 1 tablet in the evening. Take with meals. liraglutide 3-0 Yes 1.8mg inject 1.8 Univers (VICTOZA 7-18 mg under ity of 3-АЛЕКСАНДР SC) 10:37: [place] daily. Medical Branch clotrimazol 2022-0 2023- No [id number] Apply to Univers e 1 % 7-18 07-29 area(s) 2 ity of solution 00:00: 04:59 (two) [place] 00 :00 times Medical daily for Branch 10 days. fluconazole 3-0 2023- No [id number] 400mg Take 2 Univers 200 mg 7-18 07-29 tablets by ity of tablet 00:00: 04:59 mouth in [place] 00 :00 the Medical morning Branch for 10 days. clotrimazol 3-0 2023- No [id number] Apply to Univers e 1 % 7-18 07-29 area(s) 2 ity of solution 00:00: 04:59 (two) [place] 00 :00 times Medical daily for Branch 10 days. fluconazole 3-0 2023- No [id number] 400mg Take 2 Univers 200 mg 7-18 07-29 tablets by ity of tablet 00:00: 04:59 mouth in [place] 00 :00 the Medical morning Branch for 10 days. clotrimazol 2022-0 2023- No [id number] Apply to Univers e 1 % 7-18 07-29 area(s) 2 ity of solution 00:00: 04:59 (two) [place] 00 :00 times Medical daily for Branch 10 days. fluconazole 3-0 2023- No [id number] 400mg Take 2 Univers 200 mg 7-18 07-29 tablets by ity of tablet 00:00: 04:59 mouth in [place] 00 :00 the Medical morning Branch for 10 days. clotrimazol 2023-0 2023- No [id number] Apply to Univers e 1 % 7-18 07-29 area(s) 2 ity of solution 00:00: 04:59 (two) [place] 00 :00 times Medical daily for Branch 10 days. fluconazole 2023-0 2023- No [id number] 400mg Take 2 Univers 200 mg 7-18 07-29 tablets by ity of tablet 00:00: 04:59 mouth in [place] 00 :00 the Medical morning Branch for 10 days. clotrimazol 2023-0 2023- No [id number] Apply to Univers e 1 % 7-18 07-29 area(s) 2 ity of solution 00:00: 04:59 (two) [place] 00 :00 times Medical daily for Branch 10 days. fluconazole 2023-0 2023- No [id number] 400mg Take 2 Univers 200 mg 7-18 07-29 tablets by ity of tablet 00:00: 04:59 mouth in [place] 00 :00 the Medical morning Branch for 10 days. clotrimazol 3-0 2023- No [id number] Apply to Univers e 1 % 7-18 07-29 area(s) 2 ity of solution 00:00: 04:59 (two) [place] 00 :00 times Medical daily for Branch 10 days. fluconazole 2023-0 2023- No [id number] 400mg Take 2 Univers 200 mg 7-18 07-29 tablets by ity of tablet 00:00: 04:59 mouth in [place] 00 :00 the Medical morning Branch for 10 days. clotrimazol 3-0 2023- No [id number] Apply to Univers e 1 % 7-18 07-29 area(s) 2 ity of solution 00:00: 04:59 (two) [place] 00 :00 times Medical daily for Branch 10 days. fluconazole 2023-0 2023- No [id number] 400mg Take 2 Univers 200 mg 7-18 07-29 tablets by ity of tablet 00:00: 04:59 mouth in [place] 00 :00 the Medical morning Branch for 10 days. clotrimazol 3-0 2023- No [id number] Apply to Univers e 1 % 7-18 07-29 area(s) 2 ity of solution 00:00: 04:59 (two) [place] 00 :00 times Medical daily for Branch 10 days. fluconazole 2023-0 2023- No [id number] 400mg Take 2 Univers 200 mg 7-18 07-29 tablets by ity of tablet 00:00: 04:59 mouth in [place] 00 :00 the Medical morning Branch for 10 days. clotrimazol 2023-0 2023- No [id number] Apply to Univers e 1 % 7-18 07-29 area(s) 2 ity of solution 00:00: 04:59 (two) [place] 00 :00 times Medical daily for Branch 10 days. fluconazole 2023-0 2023- No [id number] 400mg Take 2 Univers 200 mg 7-18 07-29 tablets by ity of tablet 00:00: 04:59 mouth in [place] 00 :00 the Medical morning Branch for 10 days. clotrimazol 2022- No [id number] Apply to Univers e 1 % 04-17 area(s) 2 ity of solution 00:00: 04:59 (two) [place] 00 :00 times Medical daily for Branch 10 days. fluconazole 2022- No [id number] 400mg Take 2 Univers 200 mg 04-17- tablets by ity of tablet 00:00: 04:59 mouth in [place] 00 :00 the Medical morning Branch for 10 days. neomycin-po Yes 4[drp] 4 Drop, U nivers lymyxin-hyd 7-14 Left Ear, ity of rocortisone 01:00: BID, First (CORTISPORI 00 dose on Medic al N OTIC [place] Branch SUSPENSION) 04/12/23 at 3.5-10,000- 2000, 1 Until mg/mL-unit/ Discontinu mL-% otic ed, suspension Routine drops 4 Drop polyethylen Yes [id number] 17g Take 1 Univers e glycol 7-14 Packet by ity of 3350 17 00:00: mouth in [place] gram powder 00 the Medical morning. [place] sennosides- Yes [id number] 2{tbl} Take 2 Univers docusate 7-14 tablets by ity o f sodium 00:00: mouth in [place] 8.6-50 mg 00 the Medical per tablet morning. [facility] h polyethylen Yes [id number] 17g Take 1 Univers e glycol 7-14 Packet by ity of 3350 17 00:00: mouth in [place] gram powder 00 the Medical morning. [place] sennosides- Yes [id number] 2{tbl} Take 2 Univers docusate 7-14 tablets by ity o f sodium 00:00: mouth in [place] 8.6-50 mg 00 the Medical per tablet morning. Bran h polyethylen 2022-0 Yes [id number] 17g Take 1 Univers e glycol 7-14 Packet by ity of 3350 17 00:00: mouth in [place] gram powder 00 the Medical morning. [place] sennosides- Yes [id number] 2{tbl} Take 2 Univers docusate 7-14 tablets by ity o f sodium 00:00: mouth in [place] 8.6-50 mg 00 the Medical per tablet morning. [facility] h polyethylen 3-0 Yes [id number] 17g Take 1 Univers e glycol 7-14 Packet by ity of 3350 17 00:00: mouth in [place] gram powder 00 the Medical morning. [place] sennosides- 2022-0 Yes [id number] 2{tbl} Take 2 Univers docusate 7-14 tablets by ity o f sodium 00:00: mouth in [place] 8.6-50 mg 00 the Medical per tablet morning. [facility] h polyethylen 2022-0 Yes [id number] 17g Take 1 Univers e glycol 7-14 Packet by ity of 3350 17 00:00: mouth in [place] gram powder 00 the Medical morning. [place] sennosides- 2022-0 Yes [id number] 2{tbl} Take 2 Univers docusate 7-14 tablets by ity o f sodium 00:00: mouth in [place] 8.6-50 mg 00 the Medical per tablet morning. [facility] h polyethylen 2022-0 Yes [id number] 17g Take 1 Univers e glycol 7-14 Packet by ity of 3350 17 00:00: mouth in [place] gram powder 00 the Medical morning. [place] sennosides- 2022-0 Yes [id number] 2{tbl} Take 2 Univers docusate 7-14 tablets by ity o f sodium 00:00: mouth in [place] 8.6-50 mg 00 the Medical per tablet morning. [facility] h polyethylen 3-0 Yes [id number] 17g Take 1 Univers e glycol 7-14 Packet by ity of 3350 17 00:00: mouth in [place] gram powder 00 the Medical morning. [place] sennosides- 2022-0 Yes [id number] 2{tbl} Take 2 Univers docusate 7-14 tablets by ity o f sodium 00:00: mouth in [place] 8.6-50 mg 00 the Medical per tablet morning. [facility] h polyethylen 3-0 Yes [id number] 17g Take 1 Univers e glycol 7-14 Packet by ity of 3350 17 00:00: mouth in [place] gram powder 00 the Medical morning. [place] sennosides- 2022-0 Yes [id number] 2{tbl} Take 2 Univers docusate 7-14 tablets by ity o f sodium 00:00: mouth in [place] 8.6-50 mg 00 the Medical per tablet morning. Bran h polyethylen 3-0 Yes [id number] 17g Take 1 Univers e glycol 7-14 Packet by ity of 3350 17 00:00: mouth in [place] gram powder 00 the Medical morning. Branch sennosides- 3-0 Yes [id number] 2{tbl} Take 2 Univers docusate 7-14 tablets by ity o f sodium 00:00: mouth in [place] 8.6-50 mg 00 the Medical per tablet morning. Bran h polyethylen 3-0 Yes [id number] 17g Take 1 Univers e glycol 7-14 Packet by ity of 3350 17 00:00: mouth in [place] gram powder 00 the Medical morning. Branch sennosides- 3-0 Yes [id number] 2{tbl} Take 2 Univers docusate 7-14 tablets by ity o f sodium 00:00: mouth in [place] 8.6-50 mg 00 the Medical per tablet morning. [facility] h polyethylen 3-0 Yes [id number] 17g Take 1 Univers e glycol 7-14 Packet by ity of 3350 17 00:00: mouth in [place] gram powder 00 the Medical morning. [place] sennosides- 3-0 Yes [id number] 2{tbl} Take 2 Univers docusate 7-14 tablets by ity o f sodium 00:00: mouth in [place] 8.6-50 mg 00 the Medical per tablet morning. [facility] h polyethylen 3-0 Yes [id number] 17g Take 1 Univers e glycol 7-14 Packet by ity of 3350 17 00:00: mouth in [place] gram powder 00 the Medical morning. Branch sennosides- 3-0 Yes [id number] 2{tbl} Take 2 Univers docusate 7-14 tablets by ity o f sodium 00:00: mouth in [place] 8.6-50 mg 00 the Medical per tablet morning. Bran h polyethylen 3-0 Yes [id number] 17g Take 1 Univers e glycol 7-14 Packet by ity of 3350 17 00:00: mouth in [place] gram powder 00 the Medical morning. [place] sennosides- 2023-0 Yes [id number] 2{tbl} Take 2 Univers docusate 7-14 tablets by ity o f sodium 00:00: mouth in [place] 8.6-50 mg 00 the Medical per tablet morning. Bran h polyethylen 3-0 Yes [id number] 17g Take 1 Univers e glycol 7-14 Packet by ity of 3350 17 00:00: mouth in [place] gram powder 00 the Medical morning. [place] [facility] Yes [id number] 2{tbl} Take 2 Univers docusate 7-14 tablets by ity o f sodium 00:00: mouth in [place] 8.6-50 mg 00 the Medical per tablet morning. Bran h polyethylen 2022-0 Yes [id number] 17g Take 1 Univers e glycol 7-14 Packet by ity of 3350 17 00:00: mouth in [place] gram powder 00 the Medical morning. [facility]- 2022-0 Yes [id number] 2{tbl} Take 2 Univers docusate 7-14 tablets by ity o f sodium 00:00: mouth in [place] 8.6-50 mg 00 the Medical per tablet morning. [facility] h polyethylen 2022-0 Yes [id number] 17g Take 1 Univers e glycol 7-14 Packet by ity of 3350 17 00:00: mouth in [place] gram powder 00 the Medical morning. [facility]0 Yes [id number] 2{tbl} Take 2 Univers docusate 7-14 tablets by ity o f sodium 00:00: mouth in [place] 8.6-50 mg 00 the Medical per tablet morning. [facility] h polyethylen 3-0 Yes [id number] 17g Take 1 Univers e glycol 7-14 Packet by ity of 3350 17 00:00: mouth in [place] gram powder 00 the Medical morning. [place] [facility]- 2022-0 Yes [id number] 2{tbl} Take 2 [facility] docusate 7-14 tablets by ity o f sodium 00:00: mouth in [place] 8.6-50 mg 00 the Medical per tablet morning. [facility] h polyethylen 3-0 Yes [id number] 17g Take 1 Univers e glycol 7-14 Packet by ity of 3350 17 00:00: mouth in [place] gram powder 00 the Medical morning. [place] sennosides- 2022-0 Yes [id number] 2{tbl} Take 2 [facility] docusate 7-14 tablets by ity o f sodium 00:00: mouth in [place] 8.6-50 mg 00 the Medical per tablet morning. [place] h polyethylen 2022-0 Yes [id number] 17g Take 1 [facility] e glycol 7-14 Packet by ity of 3350 17 00:00: mouth in [place] gram powder 00 the Medical morning. [place] sennosides- 2022-0 Yes [id number] 2{tbl} Take 2 [facility] docusate 7-14 tablets by ity o f sodium 00:00: mouth in [place] 8.6-50 mg 00 the Medical per tablet morning. [place] h polyethylen 2022-0 Yes [id number] 17g Take 1 Univers e glycol 7-14 Packet by ity of 3350 17 00:00: mouth in [place] gram powder 00 the Medical morning. [facility]- 2022-0 Yes [id number] 2{tbl} Take 2 Univers docusate 7-14 tablets by ity o f sodium 00:00: mouth in [place] 8.6-50 mg 00 the Medical per tablet morning. [facility] h polyethylen 2022-0 Yes [id number] 17g Take 1 Univers e glycol 7-14 Packet by ity of 3350 17 00:00: mouth in [place] gram powder 00 the Medical morning. [facility]- 2022-0 Yes [id number] 2{tbl} Take 2 Univers docusate 7-14 tablets by ity o f sodium 00:00: mouth in [place] 8.6-50 mg 00 the Medical per tablet morning. [facility] h polyethylen 3-0 Yes [id number] 17g Take 1 Univers e glycol 7-14 Packet by ity of 3350 17 00:00: mouth in [place] gram powder 00 the Medical morning. [place] sennosides- 2022-0 Yes [id number] 2{tbl} Take 2 Univers docusate 7-14 tablets by ity o f sodium 00:00: mouth in [place] 8.6-50 mg 00 the Medical per tablet morning. [place] h polyethylen 3-0 Yes [id number] 17g Take 1 Univers e glycol 7-14 Packet by ity of 3350 17 00:00: mouth in [place] gram powder 00 the Medical morning. [place] sennosides- 3-0 Yes [id number] 2{tbl} Take 2 [facility] docusate 7-14 tablets by ity o f sodium 00:00: mouth in [place] 8.6-50 mg 00 the Medical per tablet morning. Branc h polyethylen 3-0 Yes [id number] 17g Take 1 Univers e glycol 7-14 Packet by ity of 3350 17 00:00: mouth in [place] gram powder 00 the Medical morning. [place] sennosides- 3-0 Yes [id number] 2{tbl} Take 2 Univers docusate 7-14 tablets by ity o f sodium 00:00: mouth in [place] 8.6-50 mg 00 the Medical per tablet morning. Branc h polyethylen 3-0 Yes [id number] 17g Take 1 Univers e glycol 7-14 Packet by ity of 3350 17 00:00: mouth in [place] gram powder 00 the Medical morning. [place] sennosides- 2022-0 Yes [id number] 2{tbl} Take 2 [facility] docusate 7-14 tablets by ity o f sodium 00:00: mouth in [place] 8.6-50 mg 00 the Medical per tablet morning. [facility] h polyethylen 3-0 Yes [id number] 17g Take 1 [facility] e glycol 7-14 Packet by ity of 3350 17 00:00: mouth in [place] gram powder 00 the Medical morning. [place] sennosides- 3-0 Yes [id number] 2{tbl} Take 2 [facility] docusate 7-14 tablets by ity o f sodium 00:00: mouth in [place] 8.6-50 mg 00 the Medical per tablet morning. Branc h polyethylen 3-0 Yes [id number] 17g Take 1 Univers e glycol 7-14 Packet by ity of 3350 17 00:00: mouth in [place] gram powder 00 the Medical morning. [place] sennosides- 3-0 Yes [id number] 2{tbl} Take 2 Univers docusate 7-14 tablets by ity o f sodium 00:00: mouth in [place] 8.6-50 mg 00 the Medical per tablet morning. Branc h polyethylen 2023-0 Yes [id number] 17g Take 1 Univers e glycol 7-14 Packet by ity of 3350 17 00:00: mouth in [place] gram powder 00 the Medical morning. [place] sennosides- 2022-0 Yes [id number] 2{tbl} Take 2 Univers docusate 7-14 tablets by ity o f sodium 00:00: mouth in [place] 8.6-50 mg 00 the Medical per tablet morning. [place] h polyethylen 2022-0 Yes [id number] 17g Take 1 Univers e glycol 7-14 Packet by ity of 3350 17 00:00: mouth in [place] gram powder 00 the Medical morning. [place] sennosides- 2022-0 Yes [id number] 2{tbl} Take 2 Univers docusate 7-14 tablets by ity o f sodium 00:00: mouth in [place] 8.6-50 mg 00 the Medical per tablet morning. [place] h polyethylen 2022-0 Yes [id number] 17g Take 1 Univers e glycol 7-14 Packet by ity of 3350 17 00:00: mouth in [place] gram powder 00 the Medical morning. [place] sennosides- 2022-0 Yes [id number] 2{tbl} Take 2 [facility] docusate 7-14 tablets by ity o f sodium 00:00: mouth in [place] 8.6-50 mg 00 the Medical per tablet morning. [place] h polyethylen 2022-0 Yes [id number] 17g Take 1 Univers e glycol 7-14 Packet by ity of 3350 17 00:00: mouth in [place] gram powder 00 the Medical morning. [place] sennosides- 2022-0 Yes [id number] 2{tbl} Take 2 [facility] docusate 7-14 tablets by ity o f sodium 00:00: mouth in [place] 8.6-50 mg 00 the Medical per tablet morning. [place] h polyethylen 3-0 Yes [id number] 17g Take 1 Univers e glycol 7-14 Packet by ity of 3350 17 00:00: mouth in [place] gram powder 00 the Medical morning. [place] sennosides- 2022-0 Yes [id number] 2{tbl} Take 2 [facility] docusate 7-14 tablets by ity o f sodium 00:00: mouth in [place] 8.6-50 mg 00 the Medical per tablet morning. [place] h polyethylen 3-0 Yes [id number] 17g Take 1 Univers e glycol 7-14 Packet by ity of 3350 17 00:00: mouth in [place] gram powder 00 the Medical morning. [place] sennosides- 2022-0 Yes [id number] 2{tbl} Take 2 [facility] docusate 7-14 tablets by ity o f sodium 00:00: mouth in [place] 8.6-50 mg 00 the Medical per tablet morning. [place] h polyethylen 3-0 Yes [id number] 17g Take 1 [facility] e glycol 7-14 Packet by ity of 3350 17 00:00: mouth in [place] gram powder 00 the Medical morning. [place] sennosides- 2022-0 Yes [id number] 2{tbl} Take 2 Univers docusate 7-14 tablets by ity o f sodium 00:00: mouth in [place] 8.6-50 mg 00 the Medical per tablet morning. [facility] h polyethylen 2022-0 Yes [id number] 17g Take 1 Univers e glycol 7-14 Packet by ity of 3350 17 00:00: mouth in [place] gram powder 00 the Medical morning. [place] sennosides- 2022-0 Yes [id number] 2{tbl} Take 2 [facility] docusate 7-14 tablets by ity o f sodium 00:00: mouth in [place] 8.6-50 mg 00 the Medical per tablet morning. [facility] h polyethylen 3-0 Yes [id number] 17g Take 1 Univers e glycol 7-14 Packet by ity of 3350 17 00:00: mouth in [place] gram powder 00 the Medical morning. [place] sennosides- 2022-0 Yes [id number] 2{tbl} Take 2 Univers docusate 7-14 tablets by ity o f sodium 00:00: mouth in [place] 8.6-50 mg 00 the Medical per tablet morning. [facility] h polyethylen 3-0 Yes [id number] 17g Take 1 [facility] e glycol 7-14 Packet by ity of 3350 17 00:00: mouth in [place] gram powder 00 the Medical morning. [place] sennosides- 2022-0 Yes [id number] 2{tbl} Take 2 [facility] docusate 7-14 tablets by ity o f sodium 00:00: mouth in [place] 8.6-50 mg 00 the Medical per tablet morning. [facility] h polyethylen 3-0 Yes [id number] 17g Take 1 Univers e glycol 7-14 Packet by ity of 3350 17 00:00: mouth in [place] gram powder 00 the Medical morning. [place] sennosides- 2022-0 Yes [id number] 2{tbl} Take 2 Univers docusate 7-14 tablets by ity o f sodium 00:00: mouth in [place] 8.6-50 mg 00 the Medical per tablet morning. [facility] h polyethylen 2022-0 Yes [id number] 17g Take 1 Univers e glycol 7-14 Packet by ity of 3350 17 00:00: mouth in [place] gram powder 00 the Medical morning. [place] sennosides- 2022-0 Yes [id number] 2{tbl} Take 2 Univers docusate 7-14 tablets by ity o f sodium 00:00: mouth in [place] 8.6-50 mg 00 the Medical per tablet morning. [facility] h polyethylen 2022-0 Yes [id number] 17g Take 1 Univers e glycol 7-14 Packet by ity of 3350 17 00:00: mouth in [place] gram powder 00 the Medical morning. [place] sennosides- 2022-0 Yes [id number] 2{tbl} Take 2 Univers docusate 7-14 tablets by ity o f sodium 00:00: mouth in [place] 8.6-50 mg 00 the Medical per tablet morning. [facility] h polyethylen 3-0 Yes [id number] 17g Take 1 Univers e glycol 7-14 Packet by ity of 3350 17 00:00: mouth in [place] gram powder 00 the Medical morning. [place] sennosides- 2022-0 Yes [id number] 2{tbl} Take 2 [facility] docusate 7-14 tablets by ity o f sodium 00:00: mouth in [place] 8.6-50 mg 00 the Medical per tablet morning. [facility] h polyethylen 3-0 Yes [id number] 17g Take 1 Univers e glycol 7-14 Packet by ity of 3350 17 00:00: mouth in [place] gram powder 00 the Medical morning. [place] sennosides- 2022-0 Yes [id number] 2{tbl} Take 2 [facility] docusate 7-14 tablets by ity o f sodium 00:00: mouth in [place] 8.6-50 mg 00 the Medical per tablet morning. [facility] h polyethylen 3-0 Yes [id number] 17g Take 1 Univers e glycol 7-14 Packet by ity of 3350 17 00:00: mouth in [place] gram powder 00 the Medical morning. Branch sennosides- 3-0 Yes [id number] 2{tbl} Take 2 Univers docusate 7-14 tablets by ity o f sodium 00:00: mouth in [place] 8.6-50 mg 00 the Medical per tablet morning. [facility] h polyethylen 3-0 Yes [id number] 17g Take 1 Univers e glycol 7-14 Packet by ity of 3350 17 00:00: mouth in [place] gram powder 00 the Medical morning. Branch sennosides- 2022-0 Yes [id number] 2{tbl} Take 2 Univers docusate 7-14 tablets by ity o f sodium 00:00: mouth in [place] 8.6-50 mg 00 the Medical per tablet morning. [facility] h polyethylen 3-0 Yes [id number] 17g Take 1 Univers e glycol 7-14 Packet by ity of 3350 17 00:00: mouth in [place] gram powder 00 the Medical morning. Branch sennosides- 2022-0 Yes [id number] 2{tbl} Take 2 [facility] docusate 7-14 tablets by ity o f sodium 00:00: mouth in [place] 8.6-50 mg 00 the Medical per tablet morning. [facility] h polyethylen 3-0 Yes [id number] 17g Take 1 Univers e glycol 7-14 Packet by ity of 3350 17 00:00: mouth in [place] gram powder 00 the Medical morning. Branch sennosides- 3-0 Yes [id number] 2{tbl} Take 2 [facility] docusate 7-14 tablets by ity o f sodium 00:00: mouth in [place] 8.6-50 mg 00 the Medical per tablet morning. [facility] h polyethylen 3-0 Yes [id number] 17g Take 1 Univers e glycol 7-14 Packet by ity of 3350 17 00:00: mouth in [place] gram powder 00 the Medical morning. Branch sennosides- 2023-0 Yes [id number] 2{tbl} Take 2 [facility] docusate 7-14 tablets by ity o f sodium 00:00: mouth in [place] 8.6-50 mg 00 the Medical per tablet morning. [facility] h polyethylen 3-0 Yes [id number] 17g Take 1 [facility] e glycol 7-14 Packet by ity of 3350 17 00:00: mouth in [place] gram powder 00 the Medical morning. [place] sennosides- 2022-0 Yes [id number] 2{tbl} Take 2 [facility] docusate 7-14 tablets by ity o f sodium 00:00: mouth in [place] 8.6-50 mg 00 the Medical per tablet morning. [facility] h polyethylen 2022-0 Yes [id number] 17g Take 1 [facility] e glycol 7-14 Packet by ity of 3350 17 00:00: mouth in [place] gram powder 00 the Medical morning. [place] sennosides- 2022-0 Yes [id number] 2{tbl} Take 2 [facility] docusate 7-14 tablets by ity o f sodium 00:00: mouth in [place] 8.6-50 mg 00 the Medical per tablet morning. [facility] h polyethylen 2022-0 Yes [id number] 17g Take 1 Univers e glycol 7-14 Packet by ity of 3350 17 00:00: mouth in [place] gram powder 00 the Medical morning. [place] sennosides- 2022-0 Yes [id number] 2{tbl} Take 2 [facility] docusate 7-14 tablets by ity o f sodium 00:00: mouth in [place] 8.6-50 mg 00 the Medical per tablet morning. [facility] h polyethylen 2022-0 Yes [id number] 17g Take 1 Univers e glycol 7-14 Packet by ity of 3350 17 00:00: mouth in [place] gram powder 00 the Medical morning. [place] sennosides- 2022-0 Yes [id number] 2{tbl} Take 2 [facility] docusate 7-14 tablets by ity o f sodium 00:00: mouth in [place] 8.6-50 mg 00 the Medical per tablet morning. [facility] h polyethylen 3-0 Yes [id number] 17g Take 1 Univers e glycol 7-14 Packet by ity of 3350 17 00:00: mouth in [place] gram powder 00 the Medical morning. Branch sennosides- 2022-0 Yes [id number] 2{tbl} Take 2 [facility] docusate 7-14 tablets by ity o f sodium 00:00: mouth in [place] 8.6-50 mg 00 the Medical per tablet morning. Branc h metFORMIN 0 Yes 1000mg Take 1,000 Univers 1,000 mg 7-13 mg by ity of tablet 19:24: mouth 2 [place] [address] (two) Medical times [place] daily with meals. UBIDECAR/FI 0 Yes Take by Uni vers SH 7-13 mouth. ity of OIL/OMEGA-3 19:24: [place] /OSMIN (SC 49 Medical [id number] Branch OIL-OMEGA 3-E ORAL) liraglutide Yes 1.8mg inject 1.8 Univers (VICTOZA 7-13 mg under ity of 3-АЛЕКСАНДР SC) 19:24: [place] daily. Medical Branch tamsulosin Yes Take by Univ ers 0.4 mg 24 7-13 mouth ity of hr capsule 19:24: daily. [address] Branch multivitami Yes 1{tbl} Take 1 Un todd n tablet 7-13 tablet by ity of 19:24: mouth [place] [address] daily. Medical Branch CALCIUM-MAG Yes Take by Uni vers NESIUM-ZINC 7-13 mouth ity of ORAL 19:24: daily. [address] metFORMIN Yes 1000mg Take 1,000 Univers 1,000 mg 7-13 mg by ity of tablet 19:24: mouth 2 [place] [address] (two) Medical times [place] daily with meals. UBIDECAR/FI 0 Yes Take by Uni vers SH 7-13 mouth. ity of OIL/OMEGA-3 19:24: [place] /OSMIN (CO 49 Medical [id number] Branch OIL-OMEGA 3-E ORAL) liraglutide Yes 1.8mg inject 1.8 Univers (VICTOZA 7-13 mg under ity of 3-АЛЕКСАНДР SC) 19:24: [place] daily. Medical Branch tamsulosin Yes Take by Univ ers 0.4 mg 24 7-13 mouth ity of hr capsule 19:24: daily. [place] 49 Medical Branch multivitami Yes 1{tbl} Take 1 Un todd n tablet 7-13 tablet by ity of 19:24: mouth [place] 49 daily. Medical Branch CALCIUM-MAG Yes Take by Uni vers NESIUM-ZINC 7-13 mouth ity of ORAL 19:24: daily. [address] Branch metFORMIN 0 Yes 1000mg Take 1,000 Univers 1,000 mg 7-13 mg by ity of tablet 19:24: mouth 2 [place] [address] (two) Medical times Branch daily with meals. UBIDECAR/FI 0 Yes Take by Uni vers SH 7-13 mouth. ity of OIL/OMEGA-3 19:24: [place] /OSMIN (CO 49 Medical [id number] Branch OIL-OMEGA 3-E ORAL) liraglutide Yes 1.8mg inject 1.8 Univers (VICTOZA 7-13 mg under ity of 3-АЛЕКСАНДР SC) 19:24: [place] daily. Medical Branch tamsulosin Yes Take by Univ ers 0.4 mg 24 7-13 mouth ity of hr capsule 19:24: daily. [address] multivitami Yes 1{tbl} Take 1 Un todd n tablet 7-13 tablet by ity of 19:24: mouth [place] 49 daily. Medical Branch CALCIUM-MAG Yes Take by Uni vers NESIUM-ZINC 7-13 mouth ity of ORAL 19:24: daily. [address] metFORMIN Yes 1000mg Take 1,000 Univers 1,000 mg 7-13 mg by ity of tablet 19:24: mouth 2 [place] [address] (two) Medical times [place] daily with meals. UBIDECAR/FI Yes Take by Uni vers SH 7-13 mouth. ity of OIL/OMEGA-3 19:24: [place] /OSMIN (CO 49 Medical [id number] Branch OIL-OMEGA 3-E ORAL) liraglutide 0 Yes 1.8mg inject 1.8 Univers (VICTOZA 7-13 mg under ity of 3-АЛЕКСАНДР SC) 19:24: [place] daily. Medical Branch tamsulosin Yes Take by Univ ers 0.4 mg 24 7-13 mouth ity of hr capsule 19:24: daily. [address] multivitami Yes 1{tbl} Take 1 Un todd n tablet 7-13 tablet by ity of 19:24: mouth [place] [address] daily. Medical Branch CALCIUM-MAG 0 Yes Take by Uni vers NESIUM-ZINC 7-13 mouth ity of ORAL 19:24: daily. [address] metFORMIN 0 Yes 1000mg Take 1,000 Univers 1,000 mg 7-13 mg by ity of tablet 19:24: mouth 2 [place] [address] (two) Medical times [place] daily with meals. UBIDECAR/FI 0 Yes Take by Uni vers SH 7-13 mouth. ity of OIL/OMEGA-3 19:24: [place] /OSMIN (SC 49 [place] [id number] [place] OIL-OMEGA 3-E ORAL) liraglutide 0 Yes 1.8mg inject 1.8 Univers (VICTOZA 7-13 mg under ity of 3-АЛЕКСАНДР SC) 19:24: [place] daily. Medical Branch tamsulosin Yes Take by Univ ers 0.4 mg 24 7-13 mouth ity of hr capsule 19:24: daily. [address] multivitami Yes 1{tbl} Take 1 Un todd n tablet 7-13 tablet by ity of 19:24: mouth [place] [address] daily. Medical Branch CALCIUM-MAG Yes Take by Uni vers NESIUM-ZINC 7-13 mouth ity of ORAL 19:24: daily. [address] metFORMIN Yes 1000mg Take 1,000 Univers 1,000 mg 7-13 mg by ity of tablet 19:24: mouth 2 [place] [address] (two) Medical times [place] daily with meals. UBIDECAR/FI 0 Yes Take by Uni vers SH 7-13 mouth. ity of OIL/OMEGA-3 19:24: [place] /OSMIN (CO 49 [facility] I68-VPSN [place] OIL-OMEGA 3-E ORAL) liraglutide 0 Yes 1.8mg inject 1.8 Univers (VICTOZA 7-13 mg under ity of 3-АЛЕКСАНДР SC) 19:24: the [place] daily. Medical Branch tamsulosin 0 Yes Take by Univ ers 0.4 mg 24 7-13 mouth ity of hr capsule 19:24: daily. [address] multivitami Yes 1{tbl} Take 1 Un todd n tablet 7-13 tablet by ity of 19:24: mouth [place] [address] daily. Medical Branch CALCIUM-MAG 0 Yes Take by Uni vers NESIUM-ZINC 7-13 mouth ity of ORAL 19:24: daily. [address] metFORMIN 0 Yes 1000mg Take 1,000 Univers 1,000 mg 7-13 mg by ity of tablet 19:24: mouth 2 [place] [address] (two) Medical times [place] daily with meals. UBIDECAR/FI 0 Yes Take by Uni vers SH 7-13 mouth. ity of OIL/OMEGA-3 19:24: [place] /OSMIN ([place] [id number]-FISH [place] OIL-OMEGA 3-E ORAL) liraglutide 0 Yes 1.8mg inject 1.8 Univers (VICTOZA 7-13 mg under ity of 3-АЛЕКСАНДР SC) 19:24: [place] daily. Medical Branch tamsulosin Yes Take by Univ ers 0.4 mg 24 7-13 mouth ity of hr capsule 19:24: daily. [address] multivitami Yes 1{tbl} Take 1 Un todd n tablet 7-13 tablet by ity of 19:24: mouth [place] [address] daily. Medical Branch CALCIUM-MAG Yes Take by Uni vers NESIUM-ZINC 7-13 mouth ity of ORAL 19:24: daily. [address] metFORMIN 0 Yes 1000mg Take 1,000 Univers 1,000 mg 7-13 mg by ity of tablet 19:24: mouth 2 [place] [address] (two) Medical times [place] daily with meals. UBIDECAR/FI Yes Take by Uni vers SH 7-13 mouth. ity of OIL/OMEGA-3 19:24: [place] /OSMIN (CO 49 [place] [address]-FISH [place] OIL-OMEGA 3-E ORAL) liraglutide 0 Yes 1.8mg inject 1.8 Univers (VICTOZA 7-13 mg under ity of 3-АЛЕКСАНДР SC) 19:24: [place] daily. Medical Branch tamsulosin Yes Take by Univ ers 0.4 mg 24 7-13 mouth ity of hr capsule 19:24: daily. [address] Branch multivitami Yes 1{tbl} Take 1 Un todd n tablet 7-13 tablet by ity of 19:24: mouth [place] 49 daily. Medical Branch CALCIUM-MAG Yes Take by Uni vers NESIUM-ZINC 7-13 mouth ity of ORAL 19:24: daily. [address] UBIDECAR/FI Yes Take by Uni vers SH 7-13 mouth. ity of OIL/OMEGA-3 19:24: [place] /OSMIN (CO 49 Medical [id number] Branch OIL-OMEGA 3-E ORAL) tamsulosin Yes Take by Univ ers 0.4 mg 24 04-12 mouth ity of hr capsule 19:24: daily. [address] multivitami 0 Yes 1{tbl} Take 1 Un todd n tablet 7-13 tablet by ity of 19:24: mouth [place] 49 daily. Medical Branch CALCIUM-MAG Yes Take by Uni vers NESIUM-ZINC 7-13 mouth ity of ORAL 19:24: daily. [address] barium 2022- No [id number] 20mL 20 mL, U nivers sulfate-NO 04-12 Oral, ity of CHARGE- 18:45: 18:40 ONCE, 1 [place] (VARIBAR 00 :00 dose, On Medical NECTOR) 40 [place] Branch % (w/v) 04/12/23 at oral 1345, suspension Routine 20 mL barium 2022- No [id number] 30g 30 g, Un todd sulfate 04-12 Oral, ity of (VARIBAR 18:45: 18:40 ONCE, 1 [place] THIN 00 :00 dose, On Medical LIQUID) 81 [place] Branch % (w/w) 04/12/23 at oral powder 1345, 30 g Routine glimepiride 2022- No 4mg Take 4 mg Univers 4 mg tablet 04-12 by mouth 2 i ty of 17:41: 00:00 (two) [place] 26 :00 times Medical daily. Branch glimepiride 2022- No 4mg Take 4 mg Univers 4 mg tablet 04-12 by mouth 2 i ty of 17:41: 00:00 (two) [place] 26 :00 times Medical daily. Branch insulin Yes 32U 32 Units, Unive rs glargine 04-12 Subcutaneo ity o f (LANTUS 17:00: us, Q24H, [place] U-100) 00 First dose Medical injection (after Branch 32 Units last modificati on) on Sun04/12/23 at 1200, Until Discontinu ed, Routine insulin Yes 7U 7 Units, Univer s lispro 04-12 Subcutaneo ity of (human) 17:00: us, TID [place] (HumaLOG 00 MEALS, Medical U-100) First dose Branch injection 7 (after Units last modificati on) on Sun04/12/23 at 1200, Until Discontinu ed, Routine clopidogreL No 75mg 75 mg, Uni vers (PLAVIX) 75 04-12 Oral, ity of mg tablet 14:15: 13:59 DAILY, 2 [place] 75 mg 00 :00 doses, Medical First dose Branch on Sun04/12/23 at 0915, Last dose on Sun04/13/23 at 0900, Routine artificial Yes [id number] 1[drp] Place 1 Univers tears, 7-13 Drop in ity of hypromellos 00:00: left eye [place] e, 0.3 % 00 at Medical ophthalmic bedtime. Branc h gel artificial Yes [id number] 1[drp] Place 1 Univers tears,hypro 7-13 Drop in ity o f mellose, 00:00: left eye [place] 0.5 % 00 as needed Medical ophthalmic for Dry Branch drops eyes. glucagon 1 Yes [id number] 1mg 1 mg by Univers mg/mL SolR 04-12 Intramuscu ity of injection 00:00: lar route [place] 00 as needed Medical (Blood Branch Glucose < or = 70 mg/dL and patient is NPO, unable to swallow or has mental changes.). insulin Yes [id number] 6U inject 6 U nivers lispro, 7-13 Units ity of human, 100 00:00: under the [place] unit/mL 00 skin in Medical injection the Branch morning and 6 Units at noon and 6 Units in the evening. inject with meals. Blood-Gluco Yes [id number] Use as Univers se Meter 7-13 directed ity of (ACCU-CHEK 00:00: [place] GUIDE 00 Medical GLUCOSE Branch METER) Misc lancets 33 2022-0 Yes [id number] Use as Univers gauge Misc 7-13 directed ity o f 00:00: [place] 00 Medical Branch blood sugar 2022-0 Yes [id number] Use as Univers diagnostic 7-13 directed ity o f (ACCU-CHEK 00:00: [place] GUIDE TEST 00 Medical STRIPS) Branch strip gabapentin Yes [id number] 300mg Take 1 Univers 300 mg 7-13 capsule by ity of capsule 00:00: mouth in [place] 00 the Medical morning Branch and 1 capsule at noon and 1 capsule in the evening. Insulin Yes [id number] 30U inject 30 Univers Glargine 7-13 Units ity of 100 unit/mL 00:00: under the [place] (3 mL) 00 skin in Medical injection the Branch morning. insulin Yes [id number] 6U inject 6 U nivers lispro 7-13 Units ity of (HUMALOG 00:00: [place] KWIKPEN 00 skin in Medical INSULIN) the Branch 100 unit/mL morning pen and 6 injector Units at noon and 6 Units in the evening. inject before meals. neomycin-po Yes [id number] 4[drp] Place 4 Univers lymyxin-hyd 04-12 15617 Drops in ity of rocortisone 00:00: left ear [place] 3.5-10,000- 00 in the Medica l 1 morning Branch mg/mL-unit/ and 4 mL-% otic Drops in susp the evening. artificial 2022-0 Yes [id number] 1[drp] Place 1 [facility] tears, 7-13 Drop in ity of hypromellos 00:00: left eye [place], 0.3 % 00 at Medical ophthalmic bedtime. Branc h gel artificial 2022-0 Yes [id number] 1[drp] Place 1 Univers tears,hypro 7-13 Drop in ity o f mellose, 00:00: left eye [place] 0.5 % 00 as needed Medical ophthalmic for Dry Branch drops eyes. glucagon 1 Yes [id number] 1mg 1 mg by Univers mg/mL SolR 7-13 Intramuscu ity of injection 00:00: lar route [place] 00 as needed Medical (Blood Branch Glucose < or = 70 mg/dL and patient is NPO, unable to swallow or has mental changes.). insulin 2022- Yes [id number] 6U inject 6 U nivers lispro, 7-13 Units ity of human, 100 00:00: under the [place] unit/mL 00 skin in Medical injection the Branch morning and 6 Units at noon and 6 Units in the evening. inject with meals. Blood-Gluco 2022- Yes [id number] Use as Univers se Meter 7-13 directed ity of (ACCU-CHEK 00:00: [place] GUIDE 00 Medical GLUCOSE Branch METER) Misc lancets 33 2022-0 Yes [id number] Use as Univers gauge Misc 7-13 directed ity o f 00:00: [place] 00 Medical Branch blood sugar 2022-0 Yes [id number] Use as [facility] diagnostic 7-13 directed ity o f (ACCU-CHEK 00:00: [place] GUIDE TEST 00 Medical STRIPS) Branch strip gabapentin Yes [id number] 300mg Take 1 [facility] 300 mg 7-13 capsule by ity of capsule 00:00: mouth in [place] 00 the Medical morning Branch and 1 capsule at noon and 1 capsule in the evening. Insulin 2022-0 Yes [id number] 30U inject 30 Univers Glargine 7-13 Units ity of 100 unit/mL 00:00: under [place] (3 mL) 00 skin in Medical injection the Branch morning. insulin 2022-0 Yes [id number] 6U inject 6 [facility] lispro 7-13 Units ity of (HUMALOG 00:00: [place] skin in Medical INSULIN) the Branch 100 unit/mL morning pen and 6 injector Units at noon and 6 Units in the evening. inject before meals. neomycin-po 2022-0 Yes [id number] 4[drp] Place 4 [facility] lymyxin-hyd 04-12 36650 Drops in ity of rocortisone 00:00: left ear [place] 3.5-10,000- 00 in the Medica l 1 morning Branch mg/mL-unit/ and 4 mL-% otic Drops in susp the evening. artificial 2022- Yes [id number] 1[drp] Place 1 [facility] tears, 7-13 Drop in ity of hypromellos 00:00: left eye [place] e, 0.3 % 00 at Medical ophthalmic bedtime. Branc h gel artificial 2022- Yes [id number] 1[drp] Place 1 [facility] tears,hypro 7-13 Drop in ity o f mellose, 00:00: left eye [place] 0.5 % 00 as needed Medical ophthalmic for Dry Branch drops eyes. glucagon 1 Yes [id number] 1mg 1 mg by [facility] mg/mL SolR 7-13 Intramuscu ity of injection 00:00: lar route [place] 00 as needed Medical (Blood Branch Glucose < or = 70 mg/dL and patient is NPO, unable to swallow or has mental changes.). insulin Yes [id number] 6U inject 6 [facility] lispro, 7-13 Units ity of human, 100 00:00: under the [place] unit/mL 00 skin in Medical injection the Branch morning and 6 Units at noon and 6 Units in the evening. inject with meals. Blood-Gluco Yes [id number] Use as [facility] se Meter 7-13 directed ity of (ACCU-CHEK 00:00: [place] GUIDE 00 Medical GLUCOSE Branch METER) Misc lancets 33 2022-0 Yes [id number] Use as [facility] gauge Misc 7-13 directed ity o f 00:00: [place] 00 Medical Branch blood sugar 2022-0 Yes [id number] Use as [facility] diagnostic 7-13 directed ity o f (ACCU-CHEK 00:00: [place] GUIDE TEST 00 Medical STRIPS) Branch strip gabapentin Yes [id number] 300mg Take 1 [facility] 300 mg 7-13 capsule by ity of capsule 00:00: mouth in [place] 00 the Medical morning Branch and 1 capsule at noon and 1 capsule in the evening. Insulin Yes [id number] 30U inject 30 [facility] Glargine 7-13 Units ity of 100 unit/mL 00:00: under the [place] (3 mL) 00 skin in Medical injection the Branch morning. insulin Yes [id number] 6U inject 6 [facility] n[facility] lispro 7-13 Units ity of (HUMALOG 00:00: [place] skin in Medical INSULIN) the Branch 100 unit/mL morning pen and 6 injector Units at noon and 6 Units in the evening. inject before meals. neomycin-po Yes [id number] 4[drp] Place 4 [facility] lymyxin-hyd 7- 55056 Drops in ity of rocortisone 00:00: left ear [place] 3.5-10,000- 00 in the Medica l 1 morning Branch mg/mL-unit/ and 4 mL-% otic Drops in susp the evening. artificial Yes [id number] 1[drp] Place 1 [facility] tears, 7-13 Drop in ity of hypromellos 00:00: left eye [place] e, 0.3 % 00 at Medical ophthalmic bedtime. Branc h gel artificial Yes [id number] 1[drp] Place 1 [facility] tears,hypro 7-13 Drop in ity o f mellose, 00:00: left eye [place] 0.5 % 00 as needed Medical ophthalmic for Dry Branch drops eyes. glucagon 1 Yes [id number] 1mg 1 mg by [facility] mg/mL SolR 7-13 Intramuscu ity of injection 00:00: lar route [place] 00 as needed Medical (Blood Branch Glucose < or = 70 mg/dL and patient is NPO, unable to swallow or has mental changes.). insulin Yes [id number] 6U inject 6 [facility] n[facility] lispro, 7-13 Units ity of human, 100 00:00: under the [place] unit/mL 00 skin in Medical injection the Branch morning and 6 Units at noon and 6 Units in the evening. inject with meals. Blood-Gluco Yes [id number] Use as [facility] se Meter 7-13 directed ity of (ACCU-CHEK 00:00: [place] GUIDE 00 Medical GLUCOSE Branch METER) Misc lancets 33 Yes [id number] Use as [facility] gauge Misc 7-13 directed ity o f 00:00: [place] 00 Medical Branch blood sugar Yes [id number] Use as [facility] diagnostic 7-13 directed ity o f (ACCU-CHEK 00:00: [place] GUIDE TEST 00 Medical STRIPS) Branch strip gabapentin Yes [id number] 300mg Take 1 [facility] 300 mg 7-13 capsule by ity of capsule 00:00: mouth in [place] 00 the Medical morning Branch and 1 capsule at noon and 1 capsule in the evening. Insulin Yes [id number] 30U inject 30 [facility] Glargine 7-13 Units ity of 100 unit/mL 00:00: under the [place] (3 mL) 00 skin in Medical injection the Branch morning. insulin Yes [id number] 6U inject 6 [facility] lispro 7-13 Units ity of (HUMALOG 00:00: [place] skin in Medical INSULIN) the Branch 100 unit/mL morning pen and 6 injector Units at noon and 6 Units in the evening. inject before meals. neomycin-po Yes [id number] 4[drp] Place 4 [facility] lymyxin-hyd 7- 00482 Drops in ity of rocortisone 00:00: left ear [place] 3.5-10,000- 00 in the Medica l 1 morning Branch mg/mL-unit/ and 4 mL-% otic Drops in susp the evening. artificial Yes [id number] 1[drp] Place 1 [facility] tears, 7-13 Drop in ity of hypromellos 00:00: left eye [place] e, 0.3 % 00 at Medical ophthalmic bedtime. Branc h gel artificial Yes [id number] 1[drp] Place 1 [facility] tears,hypro 7-13 Drop in ity o f mellose, 00:00: left eye [place] 0.5 % 00 as needed Medical ophthalmic for Dry Branch drops eyes. glucagon 1 Yes [id number] 1mg 1 mg by [facility] mg/mL SolR 7-13 Intramuscu ity of injection 00:00: lar route [place] 00 as needed Medical (Blood Branch Glucose < or = 70 mg/dL and patient is NPO, unable to swallow or has mental changes.). insulin Yes [id number] 6U inject 6 [facility] lispro, 7-13 Units ity of human, 100 00:00: under the [place] unit/mL 00 skin in Medical injection the Branch morning and 6 Units at noon and 6 Units in the evening. inject with meals. Blood-Gluco Yes [id number] Use as [facility] se Meter 7-13 directed ity of (ACCU-CHEK 00:00: [place] GUIDE 00 Medical GLUCOSE Branch METER) Misc lancets 33 0 Yes [id number] Use as [facility] gauge Misc 7-13 directed ity o f 00:00: [place] 00 Medical Branch blood sugar Yes [id number] Use as [facility] diagnostic 7-13 directed ity o f (ACCU-CHEK 00:00: [place] GUIDE TEST 00 Medical STRIPS) Branch strip gabapentin Yes [id number] 300mg Take 1 [facility] 300 mg - capsule by ity of capsule 00:00: mouth in 00 the Medical morning Branch and 1 capsule at noon and 1 capsule in the evening. Insulin Yes [id number] 30U inject 30 [facility] Glargine 7-13 Units ity of 100 unit/mL 00:00: under the [place] (3 mL) 00 skin in Medical injection the Branch morning. insulin Yes [id number] 6U inject 6 [facility] n[facility] lispro 7-13 Units ity of (HUMALOG 00:00: [place] skin in Medical INSULIN) the Branch 100 unit/mL morning pen and 6 injector Units at noon and 6 Units in the evening. inject before meals. neomycin-po Yes [id number] 4[drp] Place 4 [facility] lymyxin-hyd 04-12 75931 Drops in ity of rocortisone 00:00: left ear [place] 3.5-10,000- 00 in the Medica l 1 morning Branch mg/mL-unit/ and 4 mL-% otic Drops in susp the evening. artificial Yes [id number] 1[drp] Place 1 [facility] tears, 7-13 Drop in ity of hypromellos 00:00: left eye [place] e, 0.3 % 00 at Medical ophthalmic bedtime. Branc h gel artificial Yes [id number] 1[drp] Place 1 [facility] tears,hypro 7-13 Drop in ity o f mellose, 00:00: left eye [place] 0.5 % 00 as needed Medical ophthalmic for Dry Branch drops eyes. glucagon 1 Yes [id number] 1mg 1 mg by [facility] mg/mL SolR 7-13 Intramuscu ity of injection 00:00: lar route [place] 00 as needed Medical (Blood Branch Glucose < or = 70 mg/dL and patient is NPO, unable to swallow or has mental changes.). insulin Yes [id number] 6U inject 6 [facility] n[facility] lispro, 7-13 Units ity of human, 100 00:00: under the [place] unit/mL 00 skin in Medical injection the Branch morning and 6 Units at noon and 6 Units in the evening. inject with meals. Blood-Gluco Yes [id number] Use as [facility] se Meter 7-13 directed ity of (ACCU-CHEK 00:00: [place] GUIDE 00 Medical GLUCOSE Branch METER) Misc lancets 33 Yes [id number] Use as [facility] gauge Misc 7-13 directed ity o f 00:00: [place] 00 Medical Branch blood sugar Yes [id number] Use as [facility] diagnostic 7-13 directed ity o f (ACCU-CHEK 00:00: [place] GUIDE TEST 00 Medical STRIPS) Branch strip gabapentin Yes [id number] 300mg Take 1 [facility] 300 mg 7-13 capsule by ity of capsule 00:00: mouth in [place] 00 the Medical morning Branch and 1 capsule at noon and 1 capsule in the evening. Insulin Yes [id number] 30U inject 30 [facility] Glargine 7-13 Units ity of 100 unit/mL 00:00: under the [place] (3 mL) 00 skin in Medical injection the Branch morning. insulin 2022-0 Yes [id number] 6U inject 6 [facility] lispro 7-13 Units ity of (HUMALOG 00:00: [place] skin in Medical INSULIN) the Branch 100 unit/mL morning pen and 6 injector Units at noon and 6 Units in the evening. inject before meals. neomycin-po 0 Yes [id number] 4[drp] Place 4 [facility] lymyxin-hyd 7- 89672 Drops in ity of rocortisone 00:00: left ear [place] 3.5-10,000- 00 in the Medica l 1 morning Branch mg/mL-unit/ and 4 mL-% otic Drops in susp the evening. artificial Yes [id number] 1[drp] Place 1 [facility] tears, 7-13 Drop in ity of hypromellos 00:00: left eye [place] e, 0.3 % 00 at Medical ophthalmic bedtime. Branc h gel artificial Yes [id number] 1[drp] Place 1 [facility] tears,hypro 7-13 Drop in ity o f mellose, 00:00: left eye [place] 0.5 % 00 as needed Medical ophthalmic for Dry Branch drops eyes. glucagon 1 Yes [id number] 1mg 1 mg by [facility] mg/mL SolR 7 Intramuscu ity of injection 00:00: lar route [place] 00 as needed Medical (Blood Branch Glucose < or = 70 mg/dL and patient is NPO, unable to swallow or has mental changes.). insulin Yes [id number] 6U inject 6 [facility] n[facility] lispro, 7-13 Units ity of human, 100 00:00: under the [place] unit/mL 00 skin in Medical injection the Branch morning and 6 Units at noon and 6 Units in the evening. inject with meals. Blood-Gluco Yes [id number] Use as [facility] se Meter 7-13 directed ity of (ACCU-CHEK 00:00: [place] GUIDE 00 Medical GLUCOSE Branch METER) Misc lancets 33 2022-0 Yes [id number] Use as [facility] gauge Misc 7-13 directed ity o f 00:00: [place] 00 Medical Branch blood sugar 2022-0 Yes [id number] Use as [facility] diagnostic 7-13 directed ity o f (ACCU-CHEK 00:00: [place] GUIDE TEST 00 Medical STRIPS) Branch strip gabapentin Yes [id number] 300mg Take 1 [facility] 300 mg 7-13 capsule by ity of capsule 00:00: mouth in [place] 00 the Medical morning Branch and 1 capsule at noon and 1 capsule in the evening. Insulin Yes [id number] 30U inject 30 [facility] Glargine 7-13 Units ity of 100 unit/mL 00:00: under the [place] (3 mL) 00 skin in Medical injection the Branch morning. insulin Yes [id number] 6U inject 6 [facility] n[facility] lispro 7-13 Units ity of (HUMALOG 00:00: [place] skin in Medical INSULIN) the Branch 100 unit/mL morning pen and 6 injector Units at noon and 6 Units in the evening. inject before meals. neomycin-po Yes [id number] 4[drp] Place 4 [facility] lymyxin-hyd 7-13 08790 Drops in ity of rocortisone 00:00: left ear [place] 3.5-10,000- 00 in the Medica l 1 morning Branch mg/mL-unit/ and 4 mL-% otic Drops in susp the evening. artificial Yes [id number] 1[drp] Place 1 [facility] tears, 7-13 Drop in ity of hypromellos 00:00: left eye [place] e, 0.3 % 00 at Medical ophthalmic bedtime. Branc h gel artificial Yes [id number] 1[drp] Place 1 [facility] tears,hypro 7-13 Drop in ity o f mellose, 00:00: left eye [place] 0.5 % 00 as needed Medical ophthalmic for Dry Branch drops eyes. glucagon 1 Yes [id number] 1mg 1 mg by [facility] mg/mL SolR 7-13 Intramuscu ity of injection 00:00: lar route [place] 00 as needed Medical (Blood Branch Glucose < or = 70 mg/dL and patient is NPO, unable to swallow or has mental changes.). insulin Yes [id number] 6U inject 6 [facility] n[facility] lispro, 7-13 Units ity of human, 100 00:00: under the [place] unit/mL 00 skin in Medical injection the Branch morning and 6 Units at noon and 6 Units in the evening. inject with meals. Blood-Gluco Yes [id number] Use as [facility] se Meter 7-13 directed ity of (ACCU-CHEK 00:00: [place] GUIDE 00 Medical GLUCOSE Branch METER) Misc lancets 33 Yes [id number] Use as [facility] gauge Misc 7-13 directed ity o f 00:00: [place] 00 Medical Branch blood sugar Yes [id number] Use as [facility] diagnostic 7-13 directed ity o f (ACCU-CHEK 00:00: [place] GUIDE TEST 00 Medical STRIPS) Branch strip gabapentin Yes [id number] 300mg Take 1 [facility] 300 mg 7-13 capsule by ity of capsule 00:00: mouth in [place] 00 the Medical morning Branch and 1 capsule at noon and 1 capsule in the evening. Insulin Yes [id number] 30U inject 30 [facility] Glargine 7-13 Units ity of 100 unit/mL 00:00: under the [place] (3 mL) 00 skin in Medical injection the Branch morning. insulin Yes [id number] 6U inject 6 [facility] n[facility] lispro 7-13 Units ity of (HUMALOG 00:00: [place] skin in Medical INSULIN) the Branch 100 unit/mL morning pen and 6 injector Units at noon and 6 Units in the evening. inject before meals. neomycin-po Yes [id number] 4[drp] Place 4 [facility] lymyxin-hyd 7- 80212 Drops in ity of rocortisone 00:00: left ear [place] 3.5-10,000- 00 in the Medica l 1 morning Branch mg/mL-unit/ and 4 mL-% otic Drops in susp the evening. artificial Yes [id number] 1[drp] Place 1 [facility] tears, 7-13 Drop in ity of hypromellos 00:00: left eye [place] e, 0.3 % 00 at Medical ophthalmic bedtime. Branc h gel artificial Yes [id number] 1[drp] Place 1 [facility] tears,hypro 7-13 Drop in ity o f mellose, 00:00: left eye [place] 0.5 % 00 as needed Medical ophthalmic for Dry Branch drops eyes. glucagon 1 Yes [id number] 1mg 1 mg by [facility] mg/mL SolR 7-13 Intramuscu ity of injection 00:00: lar route [place] 00 as needed Medical (Blood Branch Glucose < or = 70 mg/dL and patient is NPO, unable to swallow or has mental changes.). insulin Yes [id number] 6U inject 6 [facility] nivers lispro, 7-13 Units ity of human, 100 00:00: under the [place] unit/mL 00 skin in Medical injection the Branch morning and 6 Units at noon and 6 Units in the evening. inject with meals. Blood-Gluco Yes [id number] Use as [facility] se Meter 7-13 directed ity of (ACCU-CHEK 00:00: [place] GUIDE 00 Medical GLUCOSE Branch METER) Misc lancets 33 0 Yes [id number] Use as [facility] gauge Misc 7-13 directed ity o f 00:00: [place] 00 [facility] blood sugar Yes [id number] Use as [facility] diagnostic 7-13 directed ity o f (ACCU-CHEK 00:00: [place] GUIDE TEST 00 Medical STRIPS) Branch strip gabapentin Yes [id number] 300mg Take 1 [facility] 300 mg 7-13 capsule by ity of capsule 00:00: mouth in [place] 00 the Medical morning Branch and 1 capsule at noon and 1 capsule in the evening. Insulin Yes [id number] 30U inject 30 [facility] Glargine 7-13 Units ity of 100 unit/mL 00:00: under the [place] (3 mL) 00 skin in Medical injection the Branch morning. insulin Yes [id number] 6U inject 6 U nivers lispro 7-13 Units ity of (HUMALOG 00:00: [place] skin in Medical INSULIN) the [place] 100 unit/mL morning pen and 6 injector Units at noon and 6 Units in the evening. inject before meals. neomycin-po Yes [id number] 4[drp] Place 4 [facility] lymyxin-hyd 7-13 04607 Drops in ity of rocortisone 00:00: left ear [place] 3.5-10,000- 00 in the Medica l 1 morning Branch mg/mL-unit/ and 4 mL-% otic Drops in susp the evening. artificial Yes [id number] 1[drp] Place 1 [facility] tears, 7-13 Drop in ity of hypromellos 00:00: left eye [place] e, 0.3 % 00 at Medical ophthalmic bedtime. Branc h gel artificial Yes [id number] 1[drp] Place 1 [facility] tears,hypro 7-13 Drop in ity o f mellose, 00:00: left eye [place] 0.5 % 00 as needed Medical ophthalmic for Dry Branch drops eyes. glucagon 1 Yes [id number] 1mg 1 mg by [facility] mg/mL SolR 7-13 Intramuscu ity of injection 00:00: lar route [place] 00 as needed Medical (Blood Branch Glucose < or = 70 mg/dL and patient is NPO, unable to swallow or has mental changes.). insulin Yes [id number] 6U inject 6 U nivers lispro, 7-13 Units ity of human, 100 00:00: under the [place] unit/mL 00 skin in Medical injection the Branch morning and 6 Units at noon and 6 Units in the evening. inject with meals. Blood-Gluco Yes [id number] Use as [facility] se Meter 7-13 directed ity of (ACCU-CHEK 00:00: [place] GUIDE 00 Medical GLUCOSE Branch METER) Misc lancets 33 2022-0 Yes [id number] Use as [facility] gauge Misc 7-13 directed ity o f 00:00: [place] 00 Medical Branch blood sugar 2022-0 Yes [id number] Use as [facility] diagnostic 7-13 directed ity o f (ACCU-CHEK 00:00: [place] GUIDE TEST 00 Medical STRIPS) Branch strip gabapentin 2022- Yes [id number] 300mg Take 1 [facility] 300 mg 7-13 capsule by ity of capsule 00:00: mouth in [place] 00 the Medical morning Branch and 1 capsule at noon and 1 capsule in the evening. Insulin 2022-0 Yes [id number] 30U inject 30 [facility] Glargine 7-13 Units ity of 100 unit/mL 00:00: under the [place] (3 mL) 00 skin in Medical injection the Branch morning. insulin 2022-0 Yes [id number] 6U inject 6 U nivers lispro 7-13 Units ity of (HUMALOG 00:00: [place] 00 skin in Medical INSULIN) the Branch 100 unit/mL morning pen and 6 injector Units at noon and 6 Units in the evening. inject before meals. neomycin-po Yes [id number] 4[drp] Place 4 [facility] lymyxin-hyd 7- 48987 Drops in ity of rocortisone 00:00: left ear [place] 3.5-10,000- 00 in the Medica l 1 morning Branch mg/mL-unit/ and 4 mL-% otic Drops in susp the evening. artificial Yes [id number] 1[drp] Place 1 [facility] tears, 7-13 Drop in ity of hypromellos 00:00: left eye [place] e, 0.3 % 00 at Medical ophthalmic bedtime. Branc h gel artificial Yes [id number] 1[drp] Place 1 [facility] tears,hypro 7-13 Drop in ity o f mellose, 00:00: left eye [place] 0.5 % 00 as needed Medical ophthalmic for Dry Branch drops eyes. glucagon 1 Yes [id number] 1mg 1 mg by [facility] mg/mL SolR 7-13 Intramuscu ity of injection 00:00: lar route [place] 00 as needed Medical (Blood Branch Glucose < or = 70 mg/dL and patient is NPO, unable to swallow or has mental changes.). insulin Yes [id number] 6U inject 6 U nivers lispro, 7-13 Units ity of human, 100 00:00: under the [place] unit/mL 00 skin in Medical injection the Branch morning and 6 Units at noon and 6 Units in the evening. inject with meals. Blood-Gluco Yes [id number] Use as [facility] se Meter 7-13 directed ity of (ACCU-CHEK 00:00: [place] GUIDE 00 Medical GLUCOSE Branch METER) Misc lancets 33 2022-0 Yes [id number] Use as [facility] gauge Misc 7-13 directed ity o f 00:00: [place] 00 Medical Branch blood sugar 2022-0 Yes [id number] Use as [facility] diagnostic 7-13 directed ity o f (ACCU-CHEK 00:00: [place] GUIDE TEST 00 Medical STRIPS) Branch strip gabapentin Yes [id number] 300mg Take 1 [facility] 300 mg 7-13 capsule by ity of capsule 00:00: mouth in [place] 00 the Medical morning Branch and 1 capsule at noon and 1 capsule in the evening. Insulin Yes [id number] 30U inject 30 [facility] Glargine 7-13 Units ity of 100 unit/mL 00:00: under the [place] (3 mL) 00 skin in Medical injection the Branch morning. insulin Yes [id number] 6U inject 6 U nivers lispro 7-13 Units ity of (HUMALOG 00:00: [place] skin in Medical INSULIN) the Branch 100 unit/mL morning pen and 6 injector Units at noon and 6 Units in the evening. inject before meals. neomycin-po Yes [id number] 4[drp] Place 4 [facility] lymyxin-hyd 7- 05000 Drops in ity of rocortisone 00:00: left ear [place] 3.5-10,000- 00 in the Medica l 1 morning Branch mg/mL-unit/ and 4 mL-% otic Drops in susp the evening. artificial Yes [id number] 1[drp] Place 1 [facility] tears, 7-13 Drop in ity of hypromellos 00:00: left eye [place], 0.3 % 00 at Medical ophthalmic bedtime. Branc h gel artificial Yes [id number] 1[drp] Place 1 [facility] tears,hypro 7-13 Drop in ity o f mellose, 00:00: left eye [place] 0.5 % 00 as needed Medical ophthalmic for Dry Branch drops eyes. glucagon 1 Yes [id number] 1mg 1 mg by [facility] mg/mL SolR 7-13 Intramuscu ity of injection 00:00: lar route [place] 00 as needed Medical (Blood Branch Glucose < or = 70 mg/dL and patient is NPO, unable to swallow or has mental changes.). insulin Yes [id number] 6U inject 6 U nivers lispro, 7-13 Units ity of human, 100 00:00: under the [place] unit/mL 00 skin in Medical injection the Branch morning and 6 Units at noon and 6 Units in the evening. inject with meals. Blood-Gluco Yes [id number] Use as [facility] se Meter 7-13 directed ity of (ACCU-CHEK 00:00: [place] GUIDE 00 Medical GLUCOSE Branch METER) Misc lancets 33 Yes [id number] Use as [facility] gauge Misc 7-13 directed ity o f 00:00: [place] 00 Medical Branch blood sugar Yes [id number] Use as [facility] diagnostic -13 directed ity o f (ACCU-CHEK 00:00: [place] GUIDE TEST 00 Medical STRIPS) Branch strip gabapentin Yes [id number] 300mg Take 1 [facility] 300 mg 7-13 capsule by ity of capsule 00:00: mouth in [place] 00 the Medical morning Branch and 1 capsule at noon and 1 capsule in the evening. Insulin Yes [id number] 30U inject 30 [facility] Glargine 7-13 Units ity of 100 unit/mL 00:00: under the [place] (3 mL) 00 skin in Medical injection the Branch morning. insulin Yes [id number] 6U inject 6 U nivers lispro 7-13 Units ity of (HUMALOG 00:00: [place] skin in Medical INSULIN) the Branch 100 unit/mL morning pen and 6 injector Units at noon and 6 Units in the evening. inject before meals. neomycin-po Yes [id number] 4[drp] Place 4 [facility] lymyxin-hyd 04-12 [id number] Drops in ity of rocortisone 00:00: left ear [place] 3.5-10,000- 00 in the Medica l 1 morning Branch mg/mL-unit/ and 4 mL-% otic Drops in susp the evening. artificial Yes [id number] 1[drp] Place 1 [facility] tears, 7-13 Drop in ity of hypromellos 00:00: left eye [place], 0.3 % 00 at Medical ophthalmic bedtime. Branc h gel artificial Yes [id number] 1[drp] Place 1 [facility] tears,hypro 7-13 Drop in ity o f mellose, 00:00: left eye [place] 0.5 % 00 as needed Medical ophthalmic for Dry Branch drops eyes. glucagon 1 Yes [id number] 1mg 1 mg by [facility] mg/mL SolR -13 Intramuscu ity of injection 00:00: lar route [place] 00 as needed Medical (Blood Branch Glucose < or = 70 mg/dL and patient is NPO, unable to swallow or has mental changes.). insulin Yes [id number] 6U inject 6 U nivers lispro, 7-13 Units ity of human, 100 00:00: under the [place] unit/mL 00 skin in Medical injection the Branch morning and 6 Units at noon and 6 Units in the evening. inject with meals. Blood-Gluco Yes [id number] Use as [facility] se Meter 713 directed ity of (ACCU-CHEK 00:00: [place] GUIDE 00 Medical GLUCOSE Branch METER) Misc lancets 33 0 Yes [id number] Use as [facility] gauge Misc 7-13 directed ity o f 00:00: [place] 00 Medical Branch blood sugar Yes [id number] Use as [facility] diagnostic 13 directed ity o f (ACCU-CHEK 00:00: [place] GUIDE TEST 00 Medical STRIPS) Branch strip gabapentin Yes [id number] 300mg Take 1 [facility] 300 mg 7-13 capsule by ity of capsule 00:00: mouth in [place] 00 the Medical morning Branch and 1 capsule at noon and 1 capsule in the evening. Insulin Yes [id number] 30U inject 30 [facility] Glargine 7-13 Units ity of 100 unit/mL 00:00: under the [place] (3 mL) 00 skin in Medical injection the Branch morning. insulin Yes [id number] 6U inject 6 U nivers lispro 7-13 Units ity of (HUMALOG 00:00: [place] skin in Medical INSULIN) the Branch 100 unit/mL morning pen and 6 injector Units at noon and 6 Units in the evening. inject before meals. neomycin-po 0 Yes [id number] 4[drp] Place 4 [facility] lymyxin-hyd 04-12 18677 Drops in ity of rocortisone 00:00: left ear [place] 3.5-10,000- 00 in the Medica l 1 morning Branch mg/mL-unit/ and 4 mL-% otic Drops in susp the evening. artificial Yes [id number] 1[drp] Place 1 [facility] tears, 7-13 Drop in ity of hypromellos 00:00: left eye [place] e, 0.3 % 00 at Medical ophthalmic bedtime. Branc h gel artificial 2022-0 Yes [id number] 1[drp] Place 1 [facility] tears,hypro 7-13 Drop in ity o f mellose, 00:00: left eye [place] 0.5 % 00 as needed Medical ophthalmic for Dry Branch drops eyes. glucagon 1 Yes [id number] 1mg 1 mg by [facility] mg/mL SolR 7-13 Intramuscu ity of injection 00:00: lar route [place] 00 as needed Medical (Blood Branch Glucose < or = 70 mg/dL and patient is NPO, unable to swallow or has mental changes.). insulin Yes [id number] 6U inject 6 U nivers lispro, 7-13 Units ity of human, 100 00:00: under the [place] unit/mL 00 skin in Medical injection the Branch morning and 6 Units at noon and 6 Units in the evening. inject with meals. Blood-Gluco Yes [id number] Use as [facility] se Meter 7-13 directed ity of (ACCU-CHEK 00:00: [place] GUIDE 00 Medical GLUCOSE Branch METER) Misc lancets 33 2022-0 Yes [id number] Use as [facility] gauge Misc 7-13 directed ity o f 00:00: [place] 00 Medical Branch blood sugar 2022-0 Yes [id number] Use as Univers diagnostic 7-13 directed ity o f (ACCU-CHEK 00:00: [place] GUIDE TEST 00 Medical STRIPS) Branch strip gabapentin 2022- Yes [id number] 300mg Take 1 [facility] 300 mg 7-13 capsule by ity of capsule 00:00: mouth in [place] 00 the Medical morning Branch and 1 capsule at noon and 1 capsule in the evening. Insulin 2022-0 Yes [id number] 30U inject 30 [facility] Glargine 7-13 Units ity of 100 unit/mL 00:00: under the [place] (3 mL) 00 skin in Medical injection the Branch morning. insulin 2022-0 Yes [id number] 6U inject 6 [facility] lispro 7-13 Units ity of (HUMALOG 00:00: [place] skin in Medical INSULIN) the Branch 100 unit/mL morning pen and 6 injector Units at noon and 6 Units in the evening. inject before meals. neomycin-po Yes [id number] 4[drp] Place 4 [facility] lymyxin-hyd 7- 56159 Drops in ity of rocortisone 00:00: left ear [place] 3.5-10,000- 00 in the Medica l 1 morning Branch mg/mL-unit/ and 4 mL-% otic Drops in susp the evening. artificial Yes [id number] 1[drp] Place 1 [facility] tears, 7-13 Drop in ity of hypromellos 00:00: left eye [place] e, 0.3 % 00 at Medical ophthalmic bedtime. Branc h gel artificial Yes [id number] 1[drp] Place 1 [facility] tears,hypro 7-13 Drop in ity o f mellose, 00:00: left eye [place] 0.5 % 00 as needed Medical ophthalmic for Dry Branch drops eyes. glucagon 1 Yes [id number] 1mg 1 mg by [facility] mg/mL SolR 7-13 Intramuscu ity of injection 00:00: lar route [place] 00 as needed Medical (Blood Branch Glucose < or = 70 mg/dL and patient is NPO, unable to swallow or has mental changes.). insulin Yes [id number] 6U inject 6 [facility] lispro, 7-13 Units ity of human, 100 00:00: under the [place] unit/mL 00 skin in Medical injection the Branch morning and 6 Units at noon and 6 Units in the evening. inject with meals. Blood-Gluco Yes [id number] Use as [facility] se Meter 7-13 directed ity of (ACCU-CHEK 00:00: [place] GUIDE 00 Medical GLUCOSE Branch METER) Misc lancets 33 Yes [id number] Use as [facility] gauge Misc 7-13 directed ity o f 00:00: [place] 00 Medical Branch blood sugar 0 Yes [id number] Use as [facility] diagnostic 7-13 directed ity o f (ACCU-CHEK 00:00: [place] GUIDE TEST 00 Medical STRIPS) Branch strip gabapentin Yes [id number] 300mg Take 1 [facility] 300 mg 7-13 capsule by ity of capsule 00:00: mouth in [place] 00 the Medical morning Branch and 1 capsule at noon and 1 capsule in the evening. Insulin Yes [id number] 30U inject 30 [facility] Glargine 7-13 Units ity of 100 unit/mL 00:00: under the [place] (3 mL) 00 skin in Medical injection the Branch morning. insulin Yes [id number] 6U inject 6 [facility] lispro 7-13 Units ity of (HUMALOG 00:00: [place] skin in Medical INSULIN) the Branch 100 unit/mL morning pen and 6 injector Units at noon and 6 Units in the evening. inject before meals. neomycin-po Yes [id number] 4[drp] Place 4 [facility] lymyxin-hyd 7-13 61936 Drops in ity of rocortisone 00:00: left ear [place] 3.5-10,000- 00 in the Medica l 1 morning Branch mg/mL-unit/ and 4 mL-% otic Drops in susp the evening. artificial Yes [id number] 1[drp] Place 1 [facility] tears, 7-13 Drop in ity of hypromellos 00:00: left eye [place] e, 0.3 % 00 at Medical ophthalmic bedtime. Branc h gel artificial Yes [id number] 1[drp] Place 1 [facility] tears,hypro 7-13 Drop in ity o f mellose, 00:00: left eye [place] 0.5 % 00 as needed Medical ophthalmic for Dry Branch drops eyes. glucagon Yes [id number] 1mg 1 mg by [facility] mg/mL SolR 7-13 Intramuscu ity of injection 00:00: lar route [place] 00 as needed Medical (Blood Branch Glucose < or = 70 mg/dL and patient is NPO, unable to swallow or has mental changes.). insulin Yes [id number] 6U inject 6 [facility] lispro, 7-13 Units ity of human, 100 00:00: under the [place] unit/mL 00 skin in Medical injection the Branch morning and 6 Units at noon and 6 Units in the evening. inject with meals. Blood-Gluco Yes [id number] Use as [facility] se Meter 7-13 directed ity of (ACCU-CHEK 00:00: [place] GUIDE 00 Medical GLUCOSE Branch METER) Misc lancets 33 Yes [id number] Use as [facility] gauge Misc 7-13 directed ity o f 00:00: [place] 00 Medical Branch blood sugar Yes [id number] Use as [facility] diagnostic 7-13 directed ity o f (ACCU-CHEK 00:00: [place] GUIDE TEST 00 Medical STRIPS) Branch strip gabapentin Yes [id number] 300mg Take 1 [facility] 300 mg 7-13 capsule by ity of capsule 00:00: mouth in [place] 00 the Medical morning Branch and 1 capsule at noon and 1 capsule in the evening. Insulin Yes [id number] 30U inject 30 [facility] Glargine 7-13 Units ity of 100 unit/mL 00:00: under the [place] (3 mL) 00 skin in Medical injection the Branch morning. insulin Yes [id number] 6U inject 6 [facility] lispro 7-13 Units ity of (HUMALOG 00:00: [place] skin in Medical INSULIN) the Branch 100 unit/mL morning pen and 6 injector Units at noon and 6 Units in the evening. inject before meals. neomycin-po Yes [id number] 4[drp] Place 4 [facility] lymyxin-hyd 04-12 91606 Drops in ity of rocortisone 00:00: left ear [place] 3.5-10,000- 00 in the Medica l 1 morning Branch mg/mL-unit/ and 4 mL-% otic Drops in susp the evening. artificial Yes [id number] 1[drp] Place 1 [facility] tears, 7-13 Drop in ity of hypromellos 00:00: left eye [place] e, 0.3 % 00 at Medical ophthalmic bedtime. Branc h gel artificial Yes [id number] 1[drp] Place 1 [facility] tears,hypro 7-13 Drop in ity o f mellose, 00:00: left eye [place] 0.5 % 00 as needed Medical ophthalmic for Dry Branch drops eyes. glucagon 1 Yes [id number] 1mg 1 mg by [facility] mg/mL SolR 7-13 Intramuscu ity of injection 00:00: lar route [place] 00 as needed Medical (Blood Branch Glucose < or = 70 mg/dL and patient is NPO, unable to swallow or has mental changes.). insulin Yes [id number] 6U inject 6 [facility] lispro, 7-13 Units ity of human, 100 00:00: under the [place] unit/mL 00 skin in Medical injection the Branch morning and 6 Units at noon and 6 Units in the evening. inject with meals. Blood-Gluco Yes [id number] Use as [facility] se Meter 7-13 directed ity of (ACCU-CHEK 00:00: [place] GUIDE 00 Medical GLUCOSE Branch METER) Misc lancets 33 0 Yes [id number] Use as [facility] gauge Misc 7-13 directed ity o f 00:00: [place] 00 Medical Branch blood sugar Yes [id number] Use as [facility] diagnostic 7-13 directed ity o f (ACCU-CHEK 00:00: [place] GUIDE TEST 00 Medical STRIPS) Branch strip gabapentin Yes [id number] 300mg Take 1 [facility] 300 mg 7-13 capsule by ity of capsule 00:00: mouth in [place] 00 the Medical morning Branch and 1 capsule at noon and 1 capsule in the evening. Insulin Yes [id number] 30U inject 30 [facility] Glargine 7-13 Units ity of 100 unit/mL 00:00: under the [place] (3 mL) 00 skin in Medical injection the Branch morning. insulin Yes [id number] 6U inject 6 [facility] lispro 7-13 Units ity of (HUMALOG 00:00: [place] skin in Medical INSULIN) the Branch 100 unit/mL morning pen and 6 injector Units at noon and 6 Units in the evening. inject before meals. neomycin-po 0 Yes [id number] 4[drp] Place 4 [facility] lymyxin-hyd 7 92698 Drops in ity of rocortisone 00:00: left ear [place] 3.5-10,000- 00 in the Medica l 1 morning Branch mg/mL-unit/ and 4 mL-% otic Drops in susp the evening. artificial 2022- Yes [id number] 1[drp] Place 1 [facility] tears, 7-13 Drop in ity of hypromellos 00:00: left eye [place] e, 0.3 % 00 at Medical ophthalmic bedtime. Branc h gel artificial 2022-0 Yes [id number] 1[drp] Place 1 [facility] tears,hypro 7-13 Drop in ity o f mellose, 00:00: left eye [place] 0.5 % 00 as needed Medical ophthalmic for Dry Branch drops eyes. glucagon 1 Yes [id number] 1mg 1 mg by [facility] mg/mL SolR 7-13 Intramuscu ity of injection 00:00: lar route [place] 00 as needed Medical (Blood Branch Glucose < or = 70 mg/dL and patient is NPO, unable to swallow or has mental changes.). insulin Yes [id number] 6U inject 6 [facility] lispro, 7-13 Units ity of human, 100 00:00: under the [place] unit/mL 00 skin in Medical injection the Branch morning and 6 Units at noon and 6 Units in the evening. inject with meals. Blood-Gluco Yes [id number] Use as [facility] se Meter 7-13 directed ity of (ACCU-CHEK 00:00: [place] GUIDE 00 Medical GLUCOSE Branch METER) Misc lancets 33 2022-0 Yes [id number] Use as [facility] gauge Misc 7-13 directed ity o f 00:00: [place] 00 Medical Branch blood sugar 2022-0 Yes [id number] Use as [facility] diagnostic 7-13 directed ity o f (ACCU-CHEK 00:00: [place] GUIDE TEST 00 Medical STRIPS) Branch strip gabapentin 2022-0 Yes [id number] 300mg Take 1 [facility] 300 mg 7-13 capsule by ity of capsule 00:00: mouth in [place] 00 the Medical morning Branch and 1 capsule at noon and 1 capsule in the evening. Insulin Yes [id number] 30U inject 30 [facility] Glargine 7-13 Units ity of 100 unit/mL 00:00: under the [place] (3 mL) 00 skin in Medical injection the Branch morning. insulin 2022-0 Yes [id number] 6U inject 6 [facility] lispro 7-13 Units ity of (HUMALOG 00:00: [place] skin in Medical INSULIN) the Branch 100 unit/mL morning pen and 6 injector Units at noon and 6 Units in the evening. inject before meals. neomycin-po Yes [id number] 4[drp] Place 4 [facility] lymyxin-hyd 7 02792 Drops in ity of rocortisone 00:00: left ear [place] 3.5-10,000- 00 in the Medica l 1 morning Branch mg/mL-unit/ and 4 mL-% otic Drops in susp the evening. artificial Yes [id number] 1[drp] Place 1 [facility] tears, 7-13 Drop in ity of hypromellos 00:00: left eye [place] e, 0.3 % 00 at Medical ophthalmic bedtime. Branc h gel artificial Yes [id number] 1[drp] Place 1 [facility] tears,hypro 7-13 Drop in ity o f mellose, 00:00: left eye [place] 0.5 % 00 as needed Medical ophthalmic for Dry Branch drops eyes. glucagon 1 Yes [id number] 1mg 1 mg by [facility] mg/mL SolR 7-13 Intramuscu ity of injection 00:00: lar route [place] 00 as needed Medical (Blood Branch Glucose < or = 70 mg/dL and patient is NPO, unable to swallow or has mental changes.). insulin Yes [id number] 6U inject 6 [facility] lispro, 7-13 Units ity of human, 100 00:00: under the [place] unit/mL 00 skin in Medical injection the Branch morning and 6 Units at noon and 6 Units in the evening. inject with meals. Blood-Gluco Yes [id number] Use as [facility] se Meter 7-13 directed ity of (ACCU-CHEK 00:00: [place] GUIDE 00 Medical GLUCOSE Branch METER) Misc lancets 33 0 Yes [id number] Use as [facility] gauge Misc 7-13 directed ity o f 00:00: [place] 00 Medical Branch blood sugar 0 Yes [id number] Use as [facility] diagnostic 7-13 directed ity o f (ACCU-CHEK 00:00: [place] GUIDE TEST 00 Medical STRIPS) Branch strip gabapentin Yes [id number] 300mg Take 1 [facility] 300 mg 7-13 capsule by ity of capsule 00:00: mouth in [place] 00 the Medical morning Branch and 1 capsule at noon and 1 capsule in the evening. Insulin Yes [id number] 30U inject 30 [facility] Glargine 7-13 Units ity of 100 unit/mL 00:00: under the [place] (3 mL) 00 skin in Medical injection the Branch morning. insulin Yes [id number] 6U inject 6 [facility] lispro 7-13 Units ity of (HUMALOG 00:00: [place] skin in Medical INSULIN) the Branch 100 unit/mL morning pen and 6 injector Units at noon and 6 Units in the evening. inject before meals. neomycin-po Yes [id number] 4[drp] Place 4 [facility] lymyxin-hyd 04-12 86722 Drops in ity of rocortisone 00:00: left ear [place] 3.5-10,000- 00 in the Medica l 1 morning Branch mg/mL-unit/ and 4 mL-% otic Drops in susp the evening. artificial Yes [id number] 1[drp] Place 1 [facility] tears, 7-13 Drop in ity of hypromellos 00:00: left eye [place] e, 0.3 % 00 at Medical ophthalmic bedtime. Branc h gel artificial Yes [id number] 1[drp] Place 1 [facility] tears,hypro 7-13 Drop in ity o f mellose, 00:00: left eye [place] 0.5 % 00 as needed Medical ophthalmic for Dry Branch drops eyes. glucagon 1 Yes [id number] 1mg 1 mg by [facility] mg/mL SolR 7- Intramuscu ity of injection 00:00: lar route [place] 00 as needed Medical (Blood Branch Glucose < or = 70 mg/dL and patient is NPO, unable to swallow or has mental changes.). insulin Yes [id number] 6U inject 6 [facility] lispro, 7-13 Units ity of human, 100 00:00: under the [place] unit/mL 00 skin in Medical injection the Branch morning and 6 Units at noon and 6 Units in the evening. inject with meals. Blood-Gluco Yes [id number] Use as [facility] se Meter 7-13 directed ity of (ACCU-CHEK 00:00: [place] GUIDE 00 Medical GLUCOSE Branch METER) Misc lancets 33 2022-0 Yes [id number] Use as [facility] gauge Misc 7-13 directed ity o f 00:00: [place] 00 Medical Branch blood sugar 2022-0 Yes [id number] Use as [facility] diagnostic 7-13 directed ity o f (ACCU-CHEK 00:00: [place] GUIDE TEST 00 Medical STRIPS) Branch strip gabapentin Yes [id number] 300mg Take 1 [facility] 300 mg 7-13 capsule by ity of capsule 00:00: mouth in [place] [address] the Medical morning Branch and 1 capsule at noon and 1 capsule in the evening. Insulin Yes [id number] 30U inject 30 [facility] Glargine 7-13 Units ity of 100 unit/mL 00:00: under the [place] (3 mL) 00 skin in Medical injection the Branch morning. insulin Yes [id number] 6U inject 6 [facility] lispro 7-13 Units ity of (HUMALOG 00:00: [place] skin in Medical INSULIN) the [place] 100 unit/mL morning pen and 6 injector Units at noon and 6 Units in the evening. inject before meals. neomycin-po Yes [id number] 4[drp] Place 4 [facility] lymyxin-hyd 7- 29637 Drops in ity of rocortisone 00:00: left ear [place] 3.5-10,000- 00 in the Medica l 1 morning Branch mg/mL-unit/ and 4 mL-% otic Drops in susp the evening. artificial 2022-0 Yes [id number] 1[drp] Place 1 [facility] tears, 7-13 Drop in ity of hypromellos 00:00: left eye [place], 0.3 % 00 at Medical ophthalmic bedtime. Branc h gel artificial 2022- Yes [id number] 1[drp] Place 1 [facility] tears,hypro 7-13 Drop in ity o f mellose, 00:00: left eye [place] 0.5 % 00 as needed Medical ophthalmic for Dry Branch drops eyes. glucagon 1 Yes [id number] 1mg 1 mg by [facility] mg/mL SolR 7-13 Intramuscu ity of injection 00:00: lar route [place] 00 as needed Medical (Blood Branch Glucose < or = 70 mg/dL and patient is NPO, unable to swallow or has mental changes.). insulin Yes [id number] 6U inject 6 [facility] lispro, 7-13 Units ity of human, 100 00:00: under the [place] unit/mL 00 skin in Medical injection the Branch morning and 6 Units at noon and 6 Units in the evening. inject with meals. Blood-Gluco Yes [id number] Use as [facility] se Meter 713 directed ity of (ACCU-CHEK 00:00: [place] GUIDE 00 Medical GLUCOSE Branch METER) Misc lancets 33 0 Yes [id number] Use as [facility] gauge Misc 7-13 directed ity o f 00:00: [place] 00 Medical Branch blood sugar 0 Yes [id number] Use as [facility] diagnostic 7-13 directed ity o f (ACCU-CHEK 00:00: [place] GUIDE TEST 00 Medical STRIPS) Branch strip gabapentin Yes [id number] 300mg Take 1 [facility] 300 mg -13 capsule by ity of capsule 00:00: mouth in [place] 00 the Medical morning Branch and 1 capsule at noon and 1 capsule in the evening. Insulin 2022- Yes [id number] 30U inject 30 [facility] Glargine 7-13 Units ity of 100 unit/mL 00:00: under the [place] (3 mL) 00 skin in Medical injection the Branch morning. insulin 2022-0 Yes [id number] 6U inject 6 [facility] lispro 7-13 Units ity of (HUMALOG 00:00: [place] 00 skin in Medical INSULIN) the Branch 100 unit/mL morning pen and 6 injector Units at noon and 6 Units in the evening. inject before meals. neomycin-po 2022-0 Yes [id number] 4[drp] Place 4 [facility] lymyxin-hyd 04-12 [id number] Drops in ity of rocortisone 00:00: left ear [place] 3.5-10,000- 00 in the Medica l 1 morning Branch mg/mL-unit/ and 4 mL-% otic Drops in susp the evening. artificial Yes [id number] 1[drp] Place 1 [facility] tears, 7-13 Drop in ity of hypromellos 00:00: left eye [place], 0.3 % 00 at Medical ophthalmic bedtime. Branc h gel artificial Yes [id number] 1[drp] Place 1 [facility] tears,hypro 7-13 Drop in ity o f mellose, 00:00: left eye [place] 0.5 % 00 as needed Medical ophthalmic for Dry Branch drops eyes. glucagon 1 Yes [id number] 1mg 1 mg by [facility] mg/mL SolR 7-13 Intramuscu ity of injection 00:00: lar route [place] 00 as needed Medical (Blood Branch Glucose < or = 70 mg/dL and patient is NPO, unable to swallow or has mental changes.). insulin Yes [id number] 6U inject 6 [facility] lispro, 7-13 Units ity of human, 100 00:00: under the [place] unit/mL 00 skin in Medical injection the Branch morning and 6 Units at noon and 6 Units in the evening. inject with meals. Blood-Gluco Yes [id number] Use as [facility] se Meter 7-13 directed ity of (ACCU-CHEK 00:00: [place] GUIDE 00 Medical GLUCOSE Branch METER) Misc lancets 33 2022-0 Yes [id number] Use as [facility] gauge Misc 7-13 directed ity o f 00:00: [place] 00 Medical Branch blood sugar 2022-0 Yes [id number] Use as [facility] diagnostic 7-13 directed ity o f (ACCU-CHEK 00:00: [place] GUIDE TEST 00 Medical STRIPS) Branch strip gabapentin Yes [id number] 300mg Take 1 [facility] 300 mg 7-13 capsule by ity of capsule 00:00: mouth in [place] 00 the Medical morning Branch and 1 capsule at noon and 1 capsule in the evening. Insulin Yes [id number] 30U inject 30 [facility] Glargine 7-13 Units ity of 100 unit/mL 00:00: under the [place] (3 mL) 00 skin in Medical injection the Branch morning. insulin Yes [id number] 6U inject 6 [facility] lispro 7-13 Units ity of (HUMALOG 00:00: [place] 00 skin in Medical INSULIN) the Branch 100 unit/mL morning pen and 6 injector Units at noon and 6 Units in the evening. inject before meals. neomycin-po Yes [id number] 4[drp] Place 4 [facility] lymyxin-hyd 7-13 [id number] Drops in ity of rocortisone 00:00: left ear [place] 3.5-10,000- 00 in the Medica l 1 morning Branch mg/mL-unit/ and 4 mL-% otic Drops in susp the evening. artificial Yes [id number] 1[drp] Place 1 [facility] tears, 7-13 Drop in ity of hypromellos 00:00: left eye [place], 0.3 % 00 at Medical ophthalmic bedtime. Branc h gel artificial Yes [id number] 1[drp] Place 1 [facility] tears,hypro 7-13 Drop in ity o f mellose, 00:00: left eye [place] 0.5 % 00 as needed Medical ophthalmic for Dry Branch drops eyes. glucagon 1 Yes [id number] 1mg 1 mg by [facility] mg/mL SolR 7-13 Intramuscu ity of injection 00:00: lar route [place] 00 as needed Medical (Blood Branch Glucose < or = 70 mg/dL and patient is NPO, unable to swallow or has mental changes.). insulin Yes [id number] 6U inject 6 [facility] n[facility] lispro, 7-13 Units ity of human, 100 00:00: under the [place] unit/mL 00 skin in Medical injection the Branch morning and 6 Units at noon and 6 Units in the evening. inject with meals. Blood-Gluco Yes [id number] Use as [facility] se Meter 7-13 directed ity of (ACCU-CHEK 00:00: [place] GUIDE 00 Medical GLUCOSE Branch METER) Misc lancets 33 Yes [id number] Use as [facility] gauge Misc 7-13 directed ity o f 00:00: [place] 00 Medical Branch blood sugar Yes [id number] Use as [facility] diagnostic 7-13 directed ity o f (ACCU-CHEK 00:00: [place] GUIDE TEST 00 Medical STRIPS) Branch strip gabapentin Yes [id number] 300mg Take 1 [facility] 300 mg 7-13 capsule by ity of capsule 00:00: mouth in [place] 00 the Medical morning Branch and 1 capsule at noon and 1 capsule in the evening. Insulin Yes [id number] 30U inject 30 [facility] Glargine 7-13 Units ity of 100 unit/mL 00:00: under the [place] (3 mL) 00 skin in Medical injection the Branch morning. insulin Yes [id number] 6U inject 6 [facility] lispro 7-13 Units ity of (HUMALOG 00:00: [place] skin in Medical INSULIN) the Branch 100 unit/mL morning pen and 6 injector Units at noon and 6 Units in the evening. inject before meals. neomycin-po Yes [id number] 4[drp] Place 4 [facility] lymyxin-hyd 7-13 [id number] Drops in ity of rocortisone 00:00: left ear [place] 3.5-10,000- 00 in the Medica l 1 morning Branch mg/mL-unit/ and 4 mL-% otic Drops in susp the evening. artificial Yes [id number] 1[drp] Place 1 [facility] tears, 7-13 Drop in ity of hypromellos 00:00: left eye [place], 0.3 % 00 at Medical ophthalmic bedtime. Branc h gel artificial Yes [id number] 1[drp] Place 1 [facility] tears,hypro 7-13 Drop in ity o f mellose, 00:00: left eye [place] 0.5 % 00 as needed Medical ophthalmic for Dry Branch drops eyes. glucagon 1 Yes [id number] 1mg 1 mg by [facility] mg/mL SolR 7-13 Intramuscu ity of injection 00:00: lar route [place] 00 as needed Medical (Blood Branch Glucose < or = 70 mg/dL and patient is NPO, unable to swallow or has mental changes.). insulin Yes [id number] 6U inject 6 [facility] n[facility] lispro, 7-13 Units ity of human, 100 00:00: under the [place] unit/mL 00 skin in Medical injection the Branch morning and 6 Units at noon and 6 Units in the evening. inject with meals. Blood-Gluco Yes [id number] Use as [facility] se Meter 7-13 directed ity of (ACCU-CHEK 00:00: [place] GUIDE 00 Medical GLUCOSE Branch METER) Misc lancets 33 0 Yes [id number] Use as [facility] gauge Misc 7-13 directed ity o f 00:00: [place] 00 Medical Branch blood sugar Yes [id number] Use as [facility] diagnostic 7-13 directed ity o f (ACCU-CHEK 00:00: [place] GUIDE TEST 00 Medical STRIPS) Branch strip gabapentin Yes [id number] 300mg Take 1 [facility] 300 mg 7- capsule by ity of capsule 00:00: mouth in 00 the Medical morning Branch and 1 capsule at noon and 1 capsule in the evening. Insulin Yes [id number] 30U inject 30 [facility] Glargine 7-13 Units ity of 100 unit/mL 00:00: under the [place] (3 mL) 00 skin in Medical injection the Branch morning. insulin Yes [id number] 6U inject 6 [facility] lispro 7-13 Units ity of (HUMALOG 00:00: [place] skin in Medical INSULIN) the Branch 100 unit/mL morning pen and 6 injector Units at noon and 6 Units in the evening. inject before meals. neomycin-po Yes [id number] 4[drp] Place 4 [facility] lymyxin-hyd 7- 72598 Drops in ity of rocortisone 00:00: left ear [place] 3.5-10,000- 00 in the Medica l 1 morning Branch mg/mL-unit/ and 4 mL-% otic Drops in susp the evening. artificial Yes [id number] 1[drp] Place 1 [facility] tears, 7-13 Drop in ity of hypromellos 00:00: left eye [place], 0.3 % 00 at Medical ophthalmic bedtime. Branc h gel artificial Yes [id number] 1[drp] Place 1 [facility] tears,hypro 7-13 Drop in ity o f mellose, 00:00: left eye [place] 0.5 % 00 as needed Medical ophthalmic for Dry Branch drops eyes. glucagon 1 Yes [id number] 1mg 1 mg by [facility] mg/mL SolR 7-13 Intramuscu ity of injection 00:00: lar route [place] 00 as needed Medical (Blood Branch Glucose < or = 70 mg/dL and patient is NPO, unable to swallow or has mental changes.). insulin Yes [id number] 6U inject 6 [facility] n[facility] lispro, 7-13 Units ity of human, 100 00:00: under the [place] unit/mL 00 skin in Medical injection the Branch morning and 6 Units at noon and 6 Units in the evening. inject with meals. Blood-Gluco Yes [id number] Use as [facility] se Meter 7-13 directed ity of (ACCU-CHEK 00:00: [place] GUIDE 00 Medical GLUCOSE Branch METER) Misc lancets 33 0 Yes [id number] Use as [facility] gauge Misc 7-13 directed ity o f 00:00: [place] 00 Medical Branch blood sugar 0 Yes [id number] Use as [facility] diagnostic 7-13 directed ity o f (ACCU-CHEK 00:00: [place] GUIDE TEST 00 Medical STRIPS) Branch strip gabapentin Yes [id number] 300mg Take 1 [facility] 300 mg 7-13 capsule by ity of capsule 00:00: mouth in [place] 00 the Medical morning Branch and 1 capsule at noon and 1 capsule in the evening. Insulin Yes [id number] 30U inject 30 [facility] Glargine 7-13 Units ity of 100 unit/mL 00:00: under the [place] (3 mL) 00 skin in Medical injection the Branch morning. insulin 0 Yes [id number] 6U inject 6 [facility] n[facility] lispro 7-13 Units ity of (HUMALOG 00:00: [place] 00 skin in Medical INSULIN) the Branch 100 unit/mL morning pen and 6 injector Units at noon and 6 Units in the evening. inject before meals. neomycin-po 2022-0 Yes [id number] 4[drp] Place 4 [facility] lymyxin-hyd 7- 09937 Drops in ity of rocortisone 00:00: left ear [place] 3.5-10,000- 00 in the Medica l 1 morning Branch mg/mL-unit/ and 4 mL-% otic Drops in susp the evening. artificial Yes [id number] 1[drp] Place 1 [facility] tears, 7-13 Drop in ity of hypromellos 00:00: left eye [place], 0.3 % 00 at Medical ophthalmic bedtime. Branc h gel artificial Yes [id number] 1[drp] Place 1 [facility] tears,hypro 7-13 Drop in ity o f mellose, 00:00: left eye [place] 0.5 % 00 as needed Medical ophthalmic for Dry Branch drops eyes. glucagon 1 Yes [id number] 1mg 1 mg by [facility] mg/mL SolR 7 Intramuscu ity of injection 00:00: lar route [place] 00 as needed Medical (Blood Branch Glucose < or = 70 mg/dL and patient is NPO, unable to swallow or has mental changes.). insulin Yes [id number] 6U inject 6 U nivers lispro, 7-13 Units ity of human, 100 00:00: under the [place] unit/mL 00 skin in Medical injection the Branch morning and 6 Units at noon and 6 Units in the evening. inject with meals. Blood-Gluco Yes [id number] Use as [facility] se Meter 7-13 directed ity of (ACCU-CHEK 00:00: [place] GUIDE 00 Medical GLUCOSE Branch METER) Misc lancets 33 2022-0 Yes [id number] Use as [facility] gauge Misc 7-13 directed ity o f 00:00: [place] 00 Medical Branch blood sugar 2022-0 Yes [id number] Use as [facility] diagnostic 7-13 directed ity o f (ACCU-CHEK 00:00: [place] GUIDE TEST 00 Medical STRIPS) Branch strip gabapentin Yes [id number] 300mg Take 1 [facility] 300 mg 7-13 capsule by ity of capsule 00:00: mouth in [place] 00 the Medical morning Branch and 1 capsule at noon and 1 capsule in the evening. Insulin Yes [id number] 30U inject 30 [facility] Glargine 7-13 Units ity of 100 unit/mL 00:00: under the [place] (3 mL) 00 skin in Medical injection the Branch morning. insulin Yes [id number] 6U inject 6 [facility] lispro 7-13 Units ity of (HUMALOG 00:00: [place] skin in Medical INSULIN) the Branch 100 unit/mL morning pen and 6 injector Units at noon and 6 Units in the evening. inject before meals. neomycin-po Yes [id number] 4[drp] Place 4 [facility] lymyxin-hyd 7- 05231 Drops in ity of rocortisone 00:00: left ear [place] 3.5-10,000- 00 in the Medica l 1 morning Branch mg/mL-unit/ and 4 mL-% otic Drops in susp the evening. artificial Yes [id number] 1[drp] Place 1 [facility] tears, 7-13 Drop in ity of hypromellos 00:00: left eye [place] e, 0.3 % 00 at Medical ophthalmic bedtime. Branc h gel artificial Yes [id number] 1[drp] Place 1 [facility] tears,hypro 7-13 Drop in ity o f mellose, 00:00: left eye [place] 0.5 % 00 as needed Medical ophthalmic for Dry Branch drops eyes. glucagon 1 Yes [id number] 1mg 1 mg by [facility] mg/mL SolR 7-13 Intramuscu ity of injection 00:00: lar route [place] 00 as needed Medical (Blood Branch Glucose < or = 70 mg/dL and patient is NPO, unable to swallow or has mental changes.). insulin Yes [id number] 6U inject 6 [facility] lispro, 7-13 Units ity of human, 100 00:00: under the [place] unit/mL 00 skin in Medical injection the Branch morning and 6 Units at noon and 6 Units in the evening. inject with meals. Blood-Gluco Yes [id number] Use as [facility] se Meter 7-13 directed ity of (ACCU-CHEK 00:00: [place] GUIDE 00 Medical GLUCOSE Branch METER) Misc lancets 33 Yes [id number] Use as [facility] gauge Misc 7-13 directed ity o f 00:00: [place] 00 Medical Branch blood sugar Yes [id number] Use as [facility] diagnostic 7-13 directed ity o f (ACCU-CHEK 00:00: [place] GUIDE TEST 00 Medical STRIPS) Branch strip gabapentin Yes [id number] 300mg Take 1 [facility] 300 mg 7-13 capsule by ity of capsule 00:00: mouth in [place] 00 the Medical morning Branch and 1 capsule at noon and 1 capsule in the evening. Insulin Yes [id number] 30U inject 30 [facility] Glargine 7-13 Units ity of 100 unit/mL 00:00: under the [place] (3 mL) 00 skin in Medical injection the Branch morning. insulin Yes [id number] 6U inject 6 [facility] lispro 7-13 Units ity of (HUMALOG 00:00: [place] skin in Medical INSULIN) the Branch 100 unit/mL morning pen and 6 injector Units at noon and 6 Units in the evening. inject before meals. neomycin-po Yes [id number] 4[drp] Place 4 [facility] lymyxin-hyd 7- 67219 Drops in ity of rocortisone 00:00: left ear [place] 3.5-10,000- 00 in the Medica l 1 morning Branch mg/mL-unit/ and 4 mL-% otic Drops in susp the evening. artificial Yes [id number] 1[drp] Place 1 [facility] tears, 7-13 Drop in ity of hypromellos 00:00: left eye [place] e, 0.3 % 00 at Medical ophthalmic bedtime. Branc h gel artificial Yes [id number] 1[drp] Place 1 [facility] tears,hypro 7-13 Drop in ity o f mellose, 00:00: left eye [place] 0.5 % 00 as needed Medical ophthalmic for Dry Branch drops eyes. glucagon 1 Yes [id number] 1mg 1 mg by [facility] mg/mL SolR 7-13 Intramuscu ity of injection 00:00: lar route [place] 00 as needed Medical (Blood Branch Glucose < or = 70 mg/dL and patient is NPO, unable to swallow or has mental changes.). insulin Yes [id number] 6U inject 6 [facility] lispro, 7-13 Units ity of human, 100 00:00: under the [place] unit/mL 00 skin in Medical injection the Branch morning and 6 Units at noon and 6 Units in the evening. inject with meals. Blood-Gluco Yes [id number] Use as [facility] se Meter 7-13 directed ity of (ACCU-CHEK 00:00: [place] GUIDE 00 Medical GLUCOSE Branch METER) Misc lancets 33 0 Yes [id number] Use as [facility] gauge Misc 7-13 directed ity o f 00:00: [place] 00 [facility] Branch blood sugar Yes [id number] Use as [facility] diagnostic 7-13 directed ity o f (ACCU-CHEK 00:00: [place] GUIDE TEST 00 Medical STRIPS) Branch strip gabapentin Yes [id number] 300mg Take 1 [facility] 300 mg 7-13 capsule by ity of capsule 00:00: mouth in [place] 00 the Medical morning Branch and 1 capsule at noon and 1 capsule in the evening. Insulin Yes [id number] 30U inject 30 [facility] Glargine 7-13 Units ity of 100 unit/mL 00:00: under the [place] (3 mL) 00 skin in Medical injection the Branch morning. insulin Yes [id number] 6U inject 6 [facility] n[facility] lispro 7-13 Units ity of (HUMALOG 00:00: [place] skin in Medical INSULIN) the Branch 100 unit/mL morning pen and 6 injector Units at noon and 6 Units in the evening. inject before meals. neomycin-po Yes [id number] 4[drp] Place 4 [facility] lymyxin-hyd 7-13 11853 Drops in ity of rocortisone 00:00: left ear [place] 3.5-10,000- 00 in the Medica l 1 morning Branch mg/mL-unit/ and 4 mL-% otic Drops in susp the evening. artificial 2022- Yes [id number] 1[drp] Place 1 [facility] tears, 7-13 Drop in ity of hypromellos 00:00: left eye [place] e, 0.3 % 00 at Medical ophthalmic bedtime. Branc h gel artificial Yes [id number] 1[drp] Place 1 [facility] tears,hypro 7-13 Drop in ity o f mellose, 00:00: left eye [place] 0.5 % 00 as needed Medical ophthalmic for Dry Branch drops eyes. glucagon 1 Yes [id number] 1mg 1 mg by [facility] mg/mL SolR 7-13 Intramuscu ity of injection 00:00: lar route [place] 00 as needed Medical (Blood Branch Glucose < or = 70 mg/dL and patient is NPO, unable to swallow or has mental changes.). insulin Yes [id number] 6U inject 6 [facility] n[facility] lispro, 7-13 Units ity of human, 100 00:00: under the [place] unit/mL 00 skin in Medical injection the Branch morning and 6 Units at noon and 6 Units in the evening. inject with meals. Blood-Gluco Yes [id number] Use as [facility] se Meter 7-13 directed ity of (ACCU-CHEK 00:00: [place] GUIDE 00 Medical GLUCOSE Branch METER) Misc lancets 33 0 Yes [id number] Use as [facility] gauge Misc 7-13 directed ity o f 00:00: [place] 00 Medical Branch blood sugar 2022-0 Yes [id number] Use as [facility] diagnostic 7-13 directed ity o f (ACCU-CHEK 00:00: [place] GUIDE TEST 00 Medical STRIPS) Branch strip gabapentin Yes [id number] 300mg Take 1 [facility] 300 mg 7-13 capsule by ity of capsule 00:00: mouth in [place] 00 the Medical morning Branch and 1 capsule at noon and 1 capsule in the evening. Insulin Yes [id number] 30U inject 30 [facility] Glargine 7-13 Units ity of 100 unit/mL 00:00: under the [place] (3 mL) 00 skin in Medical injection the Branch morning. insulin Yes [id number] 6U inject 6 [facility] n[facility] lispro 7-13 Units ity of (HUMALOG 00:00: [place] skin in Medical INSULIN) the Branch 100 unit/mL morning pen and 6 injector Units at noon and 6 Units in the evening. inject before meals. neomycin-po Yes [id number] 4[drp] Place 4 [facility] lymyxin-hyd 7- 00833 Drops in ity of rocortisone 00:00: left ear [place] 3.5-10,000- 00 in the Medica l 1 morning Branch mg/mL-unit/ and 4 mL-% otic Drops in susp the evening. artificial Yes [id number] 1[drp] Place 1 [facility] tears, 7-13 Drop in ity of hypromellos 00:00: left eye [place] e, 0.3 % 00 at Medical ophthalmic bedtime. Branc h gel artificial Yes [id number] 1[drp] Place 1 [facility] tears,hypro 7-13 Drop in ity o f mellose, 00:00: left eye [place] 0.5 % 00 as needed Medical ophthalmic for Dry Branch drops eyes. glucagon 1 Yes [id number] 1mg 1 mg by [facility] mg/mL SolR 7-13 Intramuscu ity of injection 00:00: lar route [place] 00 as needed Medical (Blood Branch Glucose < or = 70 mg/dL and patient is NPO, unable to swallow or has mental changes.). insulin Yes [id number] 6U inject 6 [facility] n[facility] lispro, 7-13 Units ity of human, 100 00:00: under the [place] unit/mL 00 skin in Medical injection the Branch morning and 6 Units at noon and 6 Units in the evening. inject with meals. Blood-Gluco Yes [id number] Use as [facility] se Meter 7-13 directed ity of (ACCU-CHEK 00:00: [place] GUIDE 00 Medical GLUCOSE Branch METER) Misc lancets 33 Yes [id number] Use as [facility] gauge Misc 7-13 directed ity o f 00:00: [place] 00 Medical Branch blood sugar Yes [id number] Use as [facility] diagnostic 7-13 directed ity o f (ACCU-CHEK 00:00: [place] GUIDE TEST 00 Medical STRIPS) Branch strip gabapentin Yes [id number] 300mg Take 1 [facility] 300 mg 7-13 capsule by ity of capsule 00:00: mouth in [place] 00 the Medical morning Branch and 1 capsule at noon and 1 capsule in the evening. Insulin Yes [id number] 30U inject 30 [facility] Glargine 7-13 Units ity of 100 unit/mL 00:00: under the [place] (3 mL) 00 skin in Medical injection the Branch morning. insulin Yes [id number] 6U inject 6 [facility] n[facility] lispro 7-13 Units ity of (HUMALOG 00:00: [place] skin in Medical INSULIN) the Branch 100 unit/mL morning pen and 6 injector Units at noon and 6 Units in the evening. inject before meals. neomycin-po Yes [id number] 4[drp] Place 4 [facility] lymyxin-hyd 7- 48816 Drops in ity of rocortisone 00:00: left ear [place] 3.5-10,000- 00 in the Medica l 1 morning Branch mg/mL-unit/ and 4 mL-% otic Drops in susp the evening. artificial Yes [id number] 1[drp] Place 1 [facility] tears, 7-13 Drop in ity of hypromellos 00:00: left eye [place] e, 0.3 % 00 at Medical ophthalmic bedtime. Branc h gel artificial Yes [id number] 1[drp] Place 1 [facility] tears,hypro 7-13 Drop in ity o f mellose, 00:00: left eye [place] 0.5 % 00 as needed Medical ophthalmic for Dry Branch drops eyes. glucagon Yes [id number] 1mg 1 mg by [facility] mg/mL SolR 7-13 Intramuscu ity of injection 00:00: lar route [place] 00 as needed Medical (Blood Branch Glucose < or = 70 mg/dL and patient is NPO, unable to swallow or has mental changes.). insulin Yes [id number] 6U inject 6 [facility] n[facility] lispro, 7-13 Units ity of human, 100 00:00: under the [place] unit/mL 00 skin in Medical injection the Branch morning and 6 Units at noon and 6 Units in the evening. inject with meals. Blood-Gluco Yes [id number] Use as [facility] se Meter 7-13 directed ity of (ACCU-CHEK 00:00: [place] GUIDE 00 Medical GLUCOSE Branch METER) Misc lancets 33 Yes [id number] Use as [facility] gauge Misc 7-13 directed ity o f 00:00: [place] 00 Medical Branch blood sugar Yes [id number] Use as [facility] diagnostic 7-13 directed ity o f (ACCU-CHEK 00:00: [place] GUIDE TEST 00 Medical STRIPS) Branch strip gabapentin Yes [id number] 300mg Take 1 [facility] 300 mg 7-13 capsule by ity of capsule 00:00: mouth in [place] 00 the Medical morning Branch and 1 capsule at noon and 1 capsule in the evening. Insulin Yes [id number] 30U inject 30 [facility] Glargine 7-13 Units ity of 100 unit/mL 00:00: under the [place] (3 mL) 00 skin in Medical injection the Branch morning. insulin Yes [id number] 6U inject 6 [facility] n[facility] lispro 7-13 Units ity of (HUMALOG 00:00: [place] skin in Medical INSULIN) the Branch 100 unit/mL morning pen and 6 injector Units at noon and 6 Units in the evening. inject before meals. neomycin-po Yes [id number] 4[drp] Place 4 [facility] lymyxin-hyd 04-12 14338 Drops in ity of rocortisone 00:00: left ear [place] 3.5-10,000- 00 in the Medica l 1 morning Branch mg/mL-unit/ and 4 mL-% otic Drops in susp the evening. artificial Yes [id number] 1[drp] Place 1 [facility] tears, 7-13 Drop in ity of hypromellos 00:00: left eye [place] e, 0.3 % 00 at Medical ophthalmic bedtime. Branc h gel artificial Yes [id number] 1[drp] Place 1 [facility] tears,hypro 7-13 Drop in ity o f mellose, 00:00: left eye [place] 0.5 % 00 as needed Medical ophthalmic for Dry Branch drops eyes. glucagon 1 Yes [id number] 1mg 1 mg by [facility] mg/mL SolR 7-13 Intramuscu ity of injection 00:00: lar route [place] 00 as needed Medical (Blood Branch Glucose < or = 70 mg/dL and patient is NPO, unable to swallow or has mental changes.). insulin Yes [id number] 6U inject 6 U nivers lispro, 7-13 Units ity of human, 100 00:00: under the [place] unit/mL 00 skin in Medical injection the Branch morning and 6 Units at noon and 6 Units in the evening. inject with meals. Blood-Gluco Yes [id number] Use as [facility] se Meter 7-13 directed ity of (ACCU-CHEK 00:00: [place] GUIDE 00 Medical GLUCOSE Branch METER) Misc lancets 33 Yes [id number] Use as [facility] gauge Misc 7-13 directed ity o f 00:00: [place] 00 Medical Branch blood sugar Yes [id number] Use as [facility] diagnostic 7-13 directed ity o f (ACCU-CHEK 00:00: [place] GUIDE TEST 00 Medical STRIPS) Branch strip gabapentin Yes [id number] 300mg Take 1 [facility] 300 mg 7-13 capsule by ity of capsule 00:00: mouth in [place] 00 the Medical morning Branch and 1 capsule at noon and 1 capsule in the evening. Insulin Yes [id number] 30U inject 30 [facility] Glargine 7-13 Units ity of 100 unit/mL 00:00: under the [place] (3 mL) 00 skin in Medical injection the Branch morning. insulin Yes [id number] 6U inject 6 U nivers lispro 7-13 Units ity of (HUMALOG 00:00: [place] 00 skin in Medical INSULIN) the Branch 100 unit/mL morning pen and 6 injector Units at noon and 6 Units in the evening. inject before meals. neomycin-po 0 Yes [id number] 4[drp] Place 4 [facility] lymyxin-hyd 04-12 [id number] Drops in ity of rocortisone 00:00: left ear [place] 3.5-10,000- 00 in the Medica l 1 morning Branch mg/mL-unit/ and 4 mL-% otic Drops in susp the evening. artificial Yes [id number] 1[drp] Place 1 [facility] tears, 7-13 Drop in ity of hypromellos 00:00: left eye [place], 0.3 % 00 at Medical ophthalmic bedtime. Branc h gel artificial Yes [id number] 1[drp] Place 1 [facility] tears,hypro 7-13 Drop in ity o f mellose, 00:00: left eye [place] 0.5 % 00 as needed Medical ophthalmic for Dry Branch drops eyes. glucagon 1 Yes [id number] 1mg 1 mg by [facility] mg/mL SolR 7-13 Intramuscu ity of injection 00:00: lar route [place] 00 as needed Medical (Blood Branch Glucose < or = 70 mg/dL and patient is NPO, unable to swallow or has mental changes.). insulin Yes [id number] 6U inject 6 U nivers lispro, 7-13 Units ity of human, 100 00:00: under the [place] unit/mL 00 skin in Medical injection the Branch morning and 6 Units at noon and 6 Units in the evening. inject with meals. Blood-Gluco Yes [id number] Use as [facility] se Meter 7-13 directed ity of (ACCU-CHEK 00:00: [place] GUIDE 00 Medical GLUCOSE Branch METER) Misc lancets 33 0 Yes [id number] Use as [facility] gauge Misc 7-13 directed ity o f 00:00: [place] 00 Medical Branch blood sugar 2022-0 Yes [id number] Use as [facility] diagnostic 7-13 directed ity o f (ACCU-CHEK 00:00: [place] GUIDE TEST 00 Medical STRIPS) Branch strip gabapentin Yes [id number] 300mg Take 1 [facility] 300 mg 7-13 capsule by ity of capsule 00:00: mouth in [place] 00 the Medical morning Branch and 1 capsule at noon and 1 capsule in the evening. Insulin Yes [id number] 30U inject 30 [facility] Glargine 7-13 Units ity of 100 unit/mL 00:00: under the [place] (3 mL) 00 skin in Medical injection the Branch morning. insulin 2022- Yes [id number] 6U inject 6 U nivers lispro 7-13 Units ity of (HUMALOG 00:00: [place] 00 skin in Medical INSULIN) the Branch 100 unit/mL morning pen and 6 injector Units at noon and 6 Units in the evening. inject before meals. neomycin-po 0 Yes [id number] 4[drp] Place 4 [facility] lymyxin-hyd 7- 86922 Drops in ity of rocortisone 00:00: left ear [place] 3.5-10,000- 00 in the Medica l 1 morning Branch mg/mL-unit/ and 4 mL-% otic Drops in susp the evening. artificial Yes [id number] 1[drp] Place 1 [facility] tears, 7-13 Drop in ity of hypromellos 00:00: left eye [place] e, 0.3 % 00 at Medical ophthalmic bedtime. Branc h gel artificial Yes [id number] 1[drp] Place 1 [facility] tears,hypro 7- Drop in ity o f mellose, 00:00: left eye [place] 0.5 % 00 as needed Medical ophthalmic for Dry Branch drops eyes. glucagon 1 Yes [id number] 1mg 1 mg by [facility] mg/mL SolR 7-13 Intramuscu ity of injection 00:00: lar route [place] 00 as needed Medical (Blood Branch Glucose < or = 70 mg/dL and patient is NPO, unable to swallow or has mental changes.). insulin Yes [id number] 6U inject 6 U nivers lispro, 7-13 Units ity of human, 100 00:00: under the [place] unit/mL 00 skin in Medical injection the Branch morning and 6 Units at noon and 6 Units in the evening. inject with meals. Blood-Gluco 2022-0 Yes [id number] Use as [facility] se Meter 7-13 directed ity of (ACCU-CHEK 00:00: [place] GUIDE 00 Medical GLUCOSE Branch METER) Misc lancets 33 2022-0 Yes [id number] Use as [facility] gauge Misc 7-13 directed ity o f 00:00: [place] 00 Medical Branch blood sugar 2022-0 Yes [id number] Use as [facility] diagnostic 7-13 directed ity o f (ACCU-CHEK 00:00: [place] GUIDE TEST 00 Medical STRIPS) Branch strip gabapentin Yes [id number] 300mg Take 1 [facility] 300 mg 7-13 capsule by ity of capsule 00:00: mouth in [place] 00 the Medical morning Branch and 1 capsule at noon and 1 capsule in the evening. Insulin Yes [id number] 30U inject 30 [facility] Glargine 7-13 Units ity of 100 unit/mL 00:00: under the [place] (3 mL) 00 skin in Medical injection the Branch morning. insulin Yes [id number] 6U inject 6 U nivers lispro 7-13 Units ity of (HUMALOG 00:00: [place] 00 skin in Medical INSULIN) the Branch 100 unit/mL morning pen and 6 injector Units at noon and 6 Units in the evening. inject before meals. neomycin-po Yes [id number] 4[drp] Place 4 [facility] lymyxin-hyd 7-13 46092 Drops in ity of rocortisone 00:00: left ear [place] 3.5-10,000- 00 in the Medica l 1 morning Branch mg/mL-unit/ and 4 mL-% otic Drops in susp the evening. artificial Yes [id number] 1[drp] Place 1 [facility] tears, 7-13 Drop in ity of hypromellos 00:00: left eye [place], 0.3 % 00 at Medical ophthalmic bedtime. Branc h gel artificial Yes [id number] 1[drp] Place 1 [facility] tears,hypro 7-13 Drop in ity o f mellose, 00:00: left eye [place] 0.5 % 00 as needed Medical ophthalmic for Dry Branch drops eyes. glucagon 1 Yes [id number] 1mg 1 mg by [facility] mg/mL SolR 7-13 Intramuscu ity of injection 00:00: lar route [place] 00 as needed Medical (Blood Branch Glucose < or = 70 mg/dL and patient is NPO, unable to swallow or has mental changes.). insulin Yes [id number] 6U inject 6 U nivers lispro, 7-13 Units ity of human, 100 00:00: under the [place] unit/mL 00 skin in Medical injection the Branch morning and 6 Units at noon and 6 Units in the evening. inject with meals. Blood-Gluco Yes [id number] Use as [facility] se Meter 7-13 directed ity of (ACCU-CHEK 00:00: [place] GUIDE 00 Medical GLUCOSE Branch METER) Misc lancets 33 0 Yes [id number] Use as [facility] gauge Misc 7-13 directed ity o f 00:00: [place] 00 Medical Branch blood sugar Yes [id number] Use as [facility] diagnostic 7-13 directed ity o f (ACCU-CHEK 00:00: [place] GUIDE TEST 00 Medical STRIPS) Branch strip gabapentin Yes [id number] 300mg Take 1 [facility] 300 mg 7-13 capsule by ity of capsule 00:00: mouth in [place] 00 the Medical morning Branch and 1 capsule at noon and 1 capsule in the evening. Insulin Yes [id number] 30U inject 30 [facility] Glargine 7-13 Units ity of 100 unit/mL 00:00: under the [place] (3 mL) 00 skin in Medical injection the Branch morning. insulin Yes [id number] 6U inject 6 U nivers lispro 7-13 Units ity of (HUMALOG 00:00: [place] 00 skin in Medical INSULIN) the Branch 100 unit/mL morning pen and 6 injector Units at noon and 6 Units in the evening. inject before meals. neomycin-po Yes [id number] 4[drp] Place 4 [facility] lymyxin-hyd 7 [id number] Drops in ity of rocortisone 00:00: left ear [place] 3.5-10,000- 00 in the Medica l 1 morning Branch mg/mL-unit/ and 4 mL-% otic Drops in susp the evening. artificial Yes [id number] 1[drp] Place 1 [facility] tears, 7-13 Drop in ity of hypromellos 00:00: left eye [place], 0.3 % 00 at Medical ophthalmic bedtime. Branc h gel artificial Yes [id number] 1[drp] Place 1 [facility] tears,hypro 7-13 Drop in ity o f mellose, 00:00: left eye [place] 0.5 % 00 as needed Medical ophthalmic for Dry Branch drops eyes. glucagon 1 Yes [id number] 1mg 1 mg by [facility] mg/mL SolR 7-13 Intramuscu ity of injection 00:00: lar route [place] 00 as needed Medical (Blood Branch Glucose < or = 70 mg/dL and patient is NPO, unable to swallow or has mental changes.). insulin Yes [id number] 6U inject 6 U nivers lispro, 7-13 Units ity of human, 100 00:00: under the [place] unit/mL 00 skin in Medical injection the Branch morning and 6 Units at noon and 6 Units in the evening. inject with meals. Blood-Gluco Yes [id number] Use as [facility] se Meter 7-13 directed ity of (ACCU-CHEK 00:00: [place] GUIDE 00 Medical GLUCOSE Branch METER) Misc lancets 33 0 Yes [id number] Use as [facility] gauge Misc 7-13 directed ity o f 00:00: [place] 00 Medical Branch blood sugar Yes [id number] Use as [facility] diagnostic 7-13 directed ity o f (ACCU-CHEK 00:00: [place] GUIDE TEST 00 Medical STRIPS) Branch strip gabapentin Yes [id number] 300mg Take 1 [facility] 300 mg 7-13 capsule by ity of capsule 00:00: mouth in [place] 00 the Medical morning Branch and 1 capsule at noon and 1 capsule in the evening. Insulin Yes [id number] 30U inject 30 [facility] Glargine 7-13 Units ity of 100 unit/mL 00:00: under the [place] (3 mL) 00 skin in Medical injection the Branch morning. insulin Yes [id number] 6U inject 6 U nivers lispro 7-13 Units ity of (HUMALOG 00:00: [place] 00 skin in Medical INSULIN) the Branch 100 unit/mL morning pen and 6 injector Units at noon and 6 Units in the evening. inject before meals. neomycin-po 0 Yes [id number] 4[drp] Place 4 [facility] lymyxin-hyd 04-12 [id number] Drops in ity of rocortisone 00:00: left ear [place] 3.5-10,000- 00 in the Medica l 1 morning Branch mg/mL-unit/ and 4 mL-% otic Drops in susp the evening. artificial Yes [id number] 1[drp] Place 1 [facility] tears, 7-13 Drop in ity of hypromellos 00:00: left eye [place], 0.3 % 00 at Medical ophthalmic bedtime. Branc h gel artificial 2022- Yes [id number] 1[drp] Place 1 [facility] tears,hypro 7-13 Drop in ity o f mellose, 00:00: left eye [place] 0.5 % 00 as needed Medical ophthalmic for Dry Branch drops eyes. glucagon 1 Yes [id number] 1mg 1 mg by [facility] mg/mL SolR 7-13 Intramuscu ity of injection 00:00: lar route [place] 00 as needed Medical (Blood Branch Glucose < or = 70 mg/dL and patient is NPO, unable to swallow or has mental changes.). insulin Yes [id number] 6U inject 6 U nivers lispro, 7-13 Units ity of human, 100 00:00: under the [place] unit/mL 00 skin in Medical injection the Branch morning and 6 Units at noon and 6 Units in the evening. inject with meals. Blood-Gluco Yes [id number] Use as [facility] se Meter 7-13 directed ity of (ACCU-CHEK 00:00: [place] GUIDE 00 Medical GLUCOSE Branch METER) Misc lancets 33 2022-0 Yes [id number] Use as [facility] gauge Misc 7-13 directed ity o f 00:00: [place] 00 Medical Branch blood sugar 2022-0 Yes [id number] Use as [facility] diagnostic 7-13 directed ity o f (ACCU-CHEK 00:00: [place] GUIDE TEST 00 Medical STRIPS) Branch strip gabapentin Yes [id number] 300mg Take 1 [facility] 300 mg 7-13 capsule by ity of capsule 00:00: mouth in [place] 00 the Medical morning Branch and 1 capsule at noon and 1 capsule in the evening. Insulin Yes [id number] 30U inject 30 [facility] Glargine 7-13 Units ity of 100 unit/mL 00:00: under the [place] (3 mL) 00 skin in Medical injection the Branch morning. insulin Yes [id number] 6U inject 6 U nivers lispro 7-13 Units ity of (HUMALOG 00:00: [place] 00 skin in Medical INSULIN) the Branch 100 unit/mL morning pen and 6 injector Units at noon and 6 Units in the evening. inject before meals. neomycin-po 0 Yes [id number] 4[drp] Place 4 [facility] lymyxin-hyd 7 11735 Drops in ity of rocortisone 00:00: left ear [place] 3.5-10,000- 00 in the Medica l 1 morning Branch mg/mL-unit/ and 4 mL-% otic Drops in susp the evening. artificial Yes [id number] 1[drp] Place 1 [facility] tears, 7-13 Drop in ity of hypromellos 00:00: left eye [place], 0.3 % 00 at Medical ophthalmic bedtime. Branc h gel artificial Yes [id number] 1[drp] Place 1 [facility] tears,hypro 7-13 Drop in ity o f mellose, 00:00: left eye [place] 0.5 % 00 as needed Medical ophthalmic for Dry Branch drops eyes. glucagon 1 Yes [id number] 1mg 1 mg by [facility] mg/mL SolR 7-13 Intramuscu ity of injection 00:00: lar route [place] 00 as needed Medical (Blood Branch Glucose < or = 70 mg/dL and patient is NPO, unable to swallow or has mental changes.). insulin Yes [id number] 6U inject 6 [facility] lispro, 7-13 Units ity of human, 100 00:00: under the [place] unit/mL 00 skin in Medical injection the Branch morning and 6 Units at noon and 6 Units in the evening. inject with meals. Blood-Gluco Yes [id number] Use as [facility] se Meter 7-13 directed ity of (ACCU-CHEK 00:00: [place] GUIDE 00 Medical GLUCOSE Branch METER) Misc lancets 33 2022-0 Yes [id number] Use as [facility] gauge Misc 7-13 directed ity o f 00:00: [place] 00 Medical Branch blood sugar 2022-0 Yes [id number] Use as [facility] diagnostic 7-13 directed ity o f (ACCU-CHEK 00:00: [place] GUIDE TEST 00 Medical STRIPS) Branch strip gabapentin Yes [id number] 300mg Take 1 [facility] 300 mg 7-13 capsule by ity of capsule 00:00: mouth in [place] 00 the Medical morning Branch and 1 capsule at noon and 1 capsule in the evening. Insulin Yes [id number] 30U inject 30 [facility] Glargine 7-13 Units ity of 100 unit/mL 00:00: under the [place] (3 mL) 00 skin in Medical injection the Branch morning. insulin Yes [id number] 6U inject 6 [facility] lispro 7-13 Units ity of (HUMALOG 00:00: [place] skin in Medical INSULIN) the Branch 100 unit/mL morning pen and 6 injector Units at noon and 6 Units in the evening. inject before meals. neomycin-po Yes [id number] 4[drp] Place 4 [facility] lymyxin-hyd 7- 94993 Drops in ity of rocortisone 00:00: left ear [place] 3.5-10,000- 00 in the Medica l 1 morning Branch mg/mL-unit/ and 4 mL-% otic Drops in susp the evening. artificial Yes [id number] 1[drp] Place 1 [facility] tears, 7-13 Drop in ity of hypromellos 00:00: left eye [place] e, 0.3 % 00 at Medical ophthalmic bedtime. Branc h gel artificial Yes [id number] 1[drp] Place 1 [facility] tears,hypro 7-13 Drop in ity o f mellose, 00:00: left eye [place] 0.5 % 00 as needed Medical ophthalmic for Dry Branch drops eyes. glucagon 1 Yes [id number] 1mg 1 mg by [facility] mg/mL SolR 7-13 Intramuscu ity of injection 00:00: lar route [place] 00 as needed Medical (Blood Branch Glucose < or = 70 mg/dL and patient is NPO, unable to swallow or has mental changes.). insulin Yes [id number] 6U inject 6 [facility] lispro, 7-13 Units ity of human, 100 00:00: under the [place] unit/mL 00 skin in Medical injection the Branch morning and 6 Units at noon and 6 Units in the evening. inject with meals. Blood-Gluco Yes [id number] Use as [facility] se Meter 7-13 directed ity of (ACCU-CHEK 00:00: [place] GUIDE 00 Medical GLUCOSE Branch METER) Misc lancets 33 2022-0 Yes [id number] Use as [facility] gauge Misc 7-13 directed ity o f 00:00: [place] 00 Medical Branch blood sugar 2022-0 Yes [id number] Use as [facility] diagnostic 7-13 directed ity o f (ACCU-CHEK 00:00: [place] GUIDE TEST 00 Medical STRIPS) Branch strip gabapentin Yes [id number] 300mg Take 1 [facility] 300 mg 7-13 capsule by ity of capsule 00:00: mouth in [place] 00 the Medical morning Branch and 1 capsule at noon and 1 capsule in the evening. Insulin Yes [id number] 30U inject 30 [facility] Glargine 7-13 Units ity of 100 unit/mL 00:00: under the [place] (3 mL) 00 skin in Medical injection the Branch morning. insulin 2022- Yes [id number] 6U inject 6 [facility] lispro 7-13 Units ity of (HUMALOG 00:00: [place] skin in Medical INSULIN) the Branch 100 unit/mL morning pen and 6 injector Units at noon and 6 Units in the evening. inject before meals. neomycin-po 0 Yes [id number] 4[drp] Place 4 [facility] lymyxin-hyd 7-13 31831 Drops in ity of rocortisone 00:00: left ear [place] 3.5-10,000- 00 in the Medica l 1 morning Branch mg/mL-unit/ and 4 mL-% otic Drops in susp the evening. artificial 2022-0 Yes [id number] 1[drp] Place 1 [facility] tears, 7-13 Drop in ity of hypromellos 00:00: left eye [place] e, 0.3 % 00 at Medical ophthalmic bedtime. Branc h gel artificial 2022-0 Yes [id number] 1[drp] Place 1 [facility] tears,hypro 7-13 Drop in ity o f mellose, 00:00: left eye [place] 0.5 % 00 as needed Medical ophthalmic for Dry Branch drops eyes. glucagon 1 Yes [id number] 1mg 1 mg by [facility] mg/mL SolR 7-13 Intramuscu ity of injection 00:00: lar route [place] 00 as needed Medical (Blood Branch Glucose < or = 70 mg/dL and patient is NPO, unable to swallow or has mental changes.). insulin Yes [id number] 6U inject 6 [facility] lispro, 7-13 Units ity of human, 100 00:00: under the [place] unit/mL 00 skin in Medical injection the Branch morning and 6 Units at noon and 6 Units in the evening. inject with meals. Blood-Gluco Yes [id number] Use as [facility] se Meter 7-13 directed ity of (ACCU-CHEK 00:00: [place] GUIDE 00 Medical GLUCOSE Branch METER) Misc lancets 33 Yes [id number] Use as [facility] gauge Misc 7-13 directed ity o f 00:00: [place] 00 Medical Branch blood sugar Yes [id number] Use as [facility] diagnostic 7-13 directed ity o f (ACCU-CHEK 00:00: [place] GUIDE TEST 00 Medical STRIPS) Branch strip gabapentin Yes [id number] 300mg Take 1 [facility] 300 mg 7-13 capsule by ity of capsule 00:00: mouth in [place] 00 the Medical morning Branch and 1 capsule at noon and 1 capsule in the evening. Insulin Yes [id number] 30U inject 30 [facility] Glargine 7-13 Units ity of 100 unit/mL 00:00: under the [place] (3 mL) 00 skin in Medical injection the Branch morning. insulin Yes [id number] 6U inject 6 [facility] lispro 7-13 Units ity of (HUMALOG 00:00: [place] skin in Medical INSULIN) the Branch 100 unit/mL morning pen and 6 injector Units at noon and 6 Units in the evening. inject before meals. neomycin-po Yes [id number] 4[drp] Place 4 [facility] lymyxin-hyd 7- 36814 Drops in ity of rocortisone 00:00: left ear [place] 3.5-10,000- 00 in the Medica l 1 morning Branch mg/mL-unit/ and 4 mL-% otic Drops in susp the evening. artificial Yes [id number] 1[drp] Place 1 [facility] tears, 7-13 Drop in ity of hypromellos 00:00: left eye [place] e, 0.3 % 00 at Medical ophthalmic bedtime. Branc h gel artificial Yes [id number] 1[drp] Place 1 [facility] tears,hypro 7-13 Drop in ity o f mellose, 00:00: left eye [place] 0.5 % 00 as needed Medical ophthalmic for Dry Branch drops eyes. glucagon 1 Yes [id number] 1mg 1 mg by [facility] mg/mL SolR 04-12 Intramuscu ity of injection 00:00: lar route [place] 00 as needed Medical (Blood Branch Glucose < or = 70 mg/dL and patient is NPO, unable to swallow or has mental changes.). insulin Yes [id number] 6U inject 6 [facility] lispro, 7-13 Units ity of human, 100 00:00: under the [place] unit/mL 00 skin in Medical injection the Branch morning and 6 Units at noon and 6 Units in the evening. inject with meals. Blood-Gluco Yes [id number] Use as [facility] se Meter 7-13 directed ity of (ACCU-CHEK 00:00: [place] GUIDE 00 Medical GLUCOSE Branch METER) Misc lancets 33 Yes [id number] Use as [facility] gauge Misc 7-13 directed ity o f 00:00: [place] 00 Medical Branch blood sugar Yes [id number] Use as [facility] diagnostic 7-13 directed ity o f (ACCU-CHEK 00:00: [place] GUIDE TEST 00 Medical STRIPS) Branch strip gabapentin Yes [id number] 300mg Take 1 [facility] 300 mg 7-13 capsule by ity of capsule 00:00: mouth in [place] 00 the Medical morning Branch and 1 capsule at noon and 1 capsule in the evening. Insulin Yes [id number] 30U inject 30 [facility] Glargine 7-13 Units ity of 100 unit/mL 00:00: under the [place] (3 mL) 00 skin in Medical injection the Branch morning. insulin Yes [id number] 6U inject 6 [facility] lispro 7-13 Units ity of (HUMALOG 00:00: [place] skin in Medical INSULIN) the Branch 100 unit/mL morning pen and 6 injector Units at noon and 6 Units in the evening. inject before meals. neomycin-po Yes [id number] 4[drp] Place 4 [facility] lymyxin-hyd 7- 77671 Drops in ity of rocortisone 00:00: left ear [place] 3.5-10,000- 00 in the Medica l 1 morning Branch mg/mL-unit/ and 4 mL-% otic Drops in susp the evening. artificial Yes [id number] 1[drp] Place 1 [facility] tears, 7-13 Drop in ity of hypromellos 00:00: left eye [place] e, 0.3 % 00 at Medical ophthalmic bedtime. Branc h gel artificial Yes [id number] 1[drp] Place 1 [facility] tears,hypro 7-13 Drop in ity o f mellose, 00:00: left eye [place] 0.5 % 00 as needed Medical ophthalmic for Dry Branch drops eyes. glucagon 1 Yes [id number] 1mg 1 mg by [facility] mg/mL SolR 7-13 Intramuscu ity of injection 00:00: lar route [place] 00 as needed Medical (Blood Branch Glucose < or = 70 mg/dL and patient is NPO, unable to swallow or has mental changes.). insulin Yes [id number] 6U inject 6 [facility] n[facility] lispro, 7-13 Units ity of human, 100 00:00: under the [place] unit/mL 00 skin in Medical injection the Branch morning and 6 Units at noon and 6 Units in the evening. inject with meals. Blood-Gluco Yes [id number] Use as [facility] se Meter 7-13 directed ity of (ACCU-CHEK 00:00: [place] GUIDE 00 Medical GLUCOSE Branch METER) Misc lancets 33 Yes [id number] Use as [facility] gauge Misc 7-13 directed ity o f 00:00: [place] 00 Medical Branch blood sugar Yes [id number] Use as [facility] diagnostic 7-13 directed ity o f (ACCU-CHEK 00:00: [place] GUIDE TEST 00 Medical STRIPS) Branch strip gabapentin Yes [id number] 300mg Take 1 [facility] 300 mg 7-13 capsule by ity of capsule 00:00: mouth in [place] 00 the Medical morning Branch and 1 capsule at noon and 1 capsule in the evening. Insulin Yes [id number] 30U inject 30 [facility] Glargine 7-13 Units ity of 100 unit/mL 00:00: under the [place] (3 mL) 00 skin in Medical injection the Branch morning. insulin Yes [id number] 6U inject 6 [facility] n[facility] lispro 7-13 Units ity of (HUMALOG 00:00: [place] 00 skin in Medical INSULIN) the Branch 100 unit/mL morning pen and 6 injector Units at noon and 6 Units in the evening. inject before meals. neomycin-po Yes [id number] 4[drp] Place 4 [facility] lymyxin-hyd 7- 56525 Drops in ity of rocortisone 00:00: left ear [place] 3.5-10,000- 00 in the Medica l 1 morning Branch mg/mL-unit/ and 4 mL-% otic Drops in susp the evening. artificial Yes [id number] 1[drp] Place 1 [facility] tears, 7-13 Drop in ity of hypromellos 00:00: left eye [place] e, 0.3 % 00 at Medical ophthalmic bedtime. Branc h gel artificial Yes [id number] 1[drp] Place 1 [facility] tears,hypro 7-13 Drop in ity o f mellose, 00:00: left eye [place] 0.5 % 00 as needed Medical ophthalmic for Dry Branch drops eyes. glucagon Yes [id number] 1mg 1 mg by [facility] mg/mL SolR 7-13 Intramuscu ity of injection 00:00: lar route [place] 00 as needed Medical (Blood Branch Glucose < or = 70 mg/dL and patient is NPO, unable to swallow or has mental changes.). insulin Yes [id number] 6U inject 6 [facility] n[facility] lispro, 7-13 Units ity of human, 100 00:00: under the [place] unit/mL 00 skin in Medical injection the Branch morning and 6 Units at noon and 6 Units in the evening. inject with meals. Blood-Gluco Yes [id number] Use as [facility] se Meter 7-13 directed ity of (ACCU-CHEK 00:00: [place] GUIDE 00 Medical GLUCOSE Branch METER) Misc lancets 33 2022-0 Yes [id number] Use as [facility] gauge Misc 7-13 directed ity o f 00:00: [place] 00 [facility] Branch blood sugar 0 Yes [id number] Use as [facility] diagnostic 7-13 directed ity o f (ACCU-CHEK 00:00: [place] GUIDE TEST 00 Medical STRIPS) Branch strip gabapentin Yes [id number] 300mg Take 1 [facility] 300 mg 7-13 capsule by ity of capsule 00:00: mouth in [place] 00 the Medical morning Branch and 1 capsule at noon and 1 capsule in the evening. Insulin Yes [id number] 30U inject 30 [facility] Glargine 7-13 Units ity of 100 unit/mL 00:00: under the [place] (3 mL) 00 skin in Medical injection the Branch morning. insulin Yes [id number] 6U inject 6 [facility] n[facility] lispro 7-13 Units ity of (HUMALOG 00:00: [place] 00 skin in Medical INSULIN) the [place] 100 unit/mL morning pen and 6 injector Units at noon and 6 Units in the evening. inject before meals. neomycin-po Yes [id number] 4[drp] Place 4 [facility] lymyxin-hyd 7-13 29031 Drops in ity of rocortisone 00:00: left ear [place] 3.5-10,000- 00 in the Medica l 1 morning Branch mg/mL-unit/ and 4 mL-% otic Drops in susp the evening. artificial Yes [id number] 1[drp] Place 1 [facility] tears, 7-13 Drop in ity of hypromellos 00:00: left eye [place] e, 0.3 % 00 at Medical ophthalmic bedtime. Branc h gel artificial 2022-0 Yes [id number] 1[drp] Place 1 [facility] tears,hypro 7-13 Drop in ity o f mellose, 00:00: left eye [place] 0.5 % 00 as needed Medical ophthalmic for Dry Branch drops eyes. glucagon 1 0 Yes [id number] 1mg 1 mg by [facility] mg/mL SolR 7-13 Intramuscu ity of injection 00:00: lar route [place] 00 as needed Medical (Blood Branch Glucose < or = 70 mg/dL and patient is NPO, unable to swallow or has mental changes.). insulin Yes [id number] 6U inject 6 [facility] n[facility] lispro, 7-13 Units ity of human, 100 00:00: under the [place] unit/mL 00 skin in Medical injection the Branch morning and 6 Units at noon and 6 Units in the evening. inject with meals. Blood-Gluco Yes [id number] Use as [facility] se Meter 7-13 directed ity of (ACCU-CHEK 00:00: [place] GUIDE 00 Medical GLUCOSE Branch METER) Misc lancets 33 2022-0 Yes [id number] Use as [facility] gauge Misc 7-13 directed ity o f 00:00: [place] 00 Medical Branch blood sugar 2022-0 Yes [id number] Use as [facility] diagnostic 7-13 directed ity o f (ACCU-CHEK 00:00: [place] GUIDE TEST 00 Medical STRIPS) Branch strip gabapentin 2022-0 Yes [id number] 300mg Take 1 [facility] 300 mg 7-13 capsule by ity of capsule 00:00: mouth in [place] 00 the Medical morning Branch and 1 capsule at noon and 1 capsule in the evening. Insulin Yes [id number] 30U inject 30 [facility] Glargine 7-13 Units ity of 100 unit/mL 00:00: under the [place] (3 mL) 00 skin in Medical injection the Branch morning. insulin 2022-0 Yes [id number] 6U inject 6 [facility] n[facility] lispro 7-13 Units ity of (HUMALOG 00:00: [place] 00 skin in Medical INSULIN) the Branch 100 unit/mL morning pen and 6 injector Units at noon and 6 Units in the evening. inject before meals. neomycin-po Yes [id number] 4[drp] Place 4 [facility] lymyxin-hyd 7- 06114 Drops in ity of rocortisone 00:00: left ear [place] 3.5-10,000- 00 in the Medica l 1 morning Branch mg/mL-unit/ and 4 mL-% otic Drops in susp the evening. artificial Yes [id number] 1[drp] Place 1 [facility] tears, 7-13 Drop in ity of hypromellos 00:00: left eye [place] e, 0.3 % 00 at Medical ophthalmic bedtime. Branc h gel artificial Yes [id number] 1[drp] Place 1 [facility] tears,hypro 7-13 Drop in ity o f mellose, 00:00: left eye [place] 0.5 % 00 as needed Medical ophthalmic for Dry Branch drops eyes. glucagon 1 Yes [id number] 1mg 1 mg by [facility] mg/mL SolR 04-12 Intramuscu ity of injection 00:00: lar route [place] 00 as needed Medical (Blood Branch Glucose < or = 70 mg/dL and patient is NPO, unable to swallow or has mental changes.). insulin Yes [id number] 6U inject 6 [facility] nivers lispro, 7-13 Units ity of human, 100 00:00: under the [place] unit/mL 00 skin in Medical injection the Branch morning and 6 Units at noon and 6 Units in the evening. inject with meals. Blood-Gluco Yes [id number] Use as [facility] se Meter 7-13 directed ity of (ACCU-CHEK 00:00: [place] GUIDE 00 Medical GLUCOSE Branch METER) Misc lancets 33 2022-0 Yes [id number] Use as [facility] gauge Misc 7-13 directed ity o f 00:00: [place] 00 Medical Branch blood sugar 2022-0 Yes [id number] Use as [facility] diagnostic 7-13 directed ity o f (ACCU-CHEK 00:00: [place] GUIDE TEST 00 Medical STRIPS) Branch strip gabapentin 2022-0 Yes [id number] 300mg Take 1 [facility] 300 mg 7-13 capsule by ity of capsule 00:00: mouth in [place] 00 the Medical morning Branch and 1 capsule at noon and 1 capsule in the evening. Insulin Yes [id number] 30U inject 30 [facility] Glargine 7-13 Units ity of 100 unit/mL 00:00: under the [place] (3 mL) 00 skin in Medical injection the Branch morning. insulin Yes [id number] 6U inject 6 [facility] nivers lispro 7-13 Units ity of (HUMALOG 00:00: [place] 00 skin in Medical INSULIN) the Branch 100 unit/mL morning pen and 6 injector Units at noon and 6 Units in the evening. inject before meals. neomycin-po Yes [id number] 4[drp] Place 4 [facility] lymyxin-hyd 7 78024 Drops in ity of rocortisone 00:00: left ear [place] 3.5-10,000- 00 in the Medica l 1 morning Branch mg/mL-unit/ and 4 mL-% otic Drops in susp the evening. artificial Yes [id number] 1[drp] Place 1 [facility] tears, 7-13 Drop in ity of hypromellos 00:00: left eye [place] e, 0.3 % 00 at Medical ophthalmic bedtime. Branc h gel artificial Yes [id number] 1[drp] Place 1 [facility] tears,hypro 7-13 Drop in ity o f mellose, 00:00: left eye [place] 0.5 % 00 as needed Medical ophthalmic for Dry Branch drops eyes. glucagon 1 Yes [id number] 1mg 1 mg by [facility] mg/mL SolR 7-13 Intramuscu ity of injection 00:00: lar route [place] 00 as needed Medical (Blood Branch Glucose < or = 70 mg/dL and patient is NPO, unable to swallow or has mental changes.). insulin Yes [id number] 6U inject 6 U nivers lispro, 7-13 Units ity of human, 100 00:00: under the [place] unit/mL 00 skin in Medical injection the Branch morning and 6 Units at noon and 6 Units in the evening. inject with meals. Blood-Gluco Yes [id number] Use as [facility] se Meter 7-13 directed ity of (ACCU-CHEK 00:00: [place] GUIDE 00 Medical GLUCOSE Branch METER) Misc lancets 33 2022-0 Yes [id number] Use as [facility] gauge Misc 7-13 directed ity o f 00:00: [place] 00 Medical Branch blood sugar 2022-0 Yes [id number] Use as [facility] diagnostic 7-13 directed ity o f (ACCU-CHEK 00:00: [place] GUIDE TEST 00 Medical STRIPS) Branch strip gabapentin 2022- Yes [id number] 300mg Take 1 [facility] 300 mg 7-13 capsule by ity of capsule 00:00: mouth in [place] 00 the Medical morning Branch and 1 capsule at noon and 1 capsule in the evening. Insulin 2022- Yes [id number] 30U inject 30 [facility] Glargine 7-13 Units ity of 100 unit/mL 00:00: under the [place] (3 mL) 00 skin in Medical injection the Branch morning. insulin 2022- Yes [id number] 6U inject 6 U nivers lispro 7-13 Units ity of (HUMALOG 00:00: [place] 00 skin in Medical INSULIN) the Branch 100 unit/mL morning pen and 6 injector Units at noon and 6 Units in the evening. inject before meals. neomycin-po Yes [id number] 4[drp] Place 4 [facility] lymyxin-hyd 7- 13557 Drops in ity of rocortisone 00:00: left ear [place] 3.5-10,000- 00 in the Medica l 1 morning Branch mg/mL-unit/ and 4 mL-% otic Drops in susp the evening. artificial 2022- Yes [id number] 1[drp] Place 1 [facility] tears, 7-13 Drop in ity of hypromellos 00:00: left eye [place] e, 0.3 % 00 at Medical ophthalmic bedtime. Branc h gel artificial 2022- Yes [id number] 1[drp] Place 1 [facility] tears,hypro 7-13 Drop in ity o f mellose, 00:00: left eye [place] 0.5 % 00 as needed Medical ophthalmic for Dry Branch drops eyes. glucagon 1 Yes [id number] 1mg 1 mg by [facility] mg/mL SolR 7-13 Intramuscu ity of injection 00:00: lar route [place] 00 as needed Medical (Blood Branch Glucose < or = 70 mg/dL and patient is NPO, unable to swallow or has mental changes.). insulin Yes [id number] 6U inject 6 U nivers lispro, 7-13 Units ity of human, 100 00:00: under the [place] unit/mL 00 skin in Medical injection the Branch morning and 6 Units at noon and 6 Units in the evening. inject with meals. Blood-Gluco Yes [id number] Use as [facility] se Meter 7-13 directed ity of (ACCU-CHEK 00:00: [place] GUIDE 00 Medical GLUCOSE Branch METER) Misc lancets 33 Yes [id number] Use as [facility] gauge Misc 7-13 directed ity o f 00:00: [place] 00 Medical Branch blood sugar Yes [id number] Use as [facility] diagnostic 7-13 directed ity o f (ACCU-CHEK 00:00: [place] GUIDE TEST 00 Medical STRIPS) Branch strip gabapentin Yes [id number] 300mg Take 1 [facility] 300 mg 7-13 capsule by ity of capsule 00:00: mouth in [place] 00 the Medical morning Branch and 1 capsule at noon and 1 capsule in the evening. Insulin Yes [id number] 30U inject 30 [facility] Glargine 7-13 Units ity of 100 unit/mL 00:00: under the [place] (3 mL) 00 skin in Medical injection the Branch morning. insulin Yes [id number] 6U inject 6 U nivers lispro 7-13 Units ity of (HUMALOG 00:00: [place] 00 skin in Medical INSULIN) the Branch 100 unit/mL morning pen and 6 injector Units at noon and 6 Units in the evening. inject before meals. neomycin-po Yes [id number] 4[drp] Place 4 [facility] lymyxin-hyd 7- 75573 Drops in ity of rocortisone 00:00: left ear [place] 3.5-10,000- 00 in the Medica l 1 morning Branch mg/mL-unit/ and 4 mL-% otic Drops in susp the evening. artificial 2022- Yes [id number] 1[drp] Place 1 [facility] tears, 7-13 Drop in ity of hypromellos 00:00: left eye [place], 0.3 % 00 at Medical ophthalmic bedtime. Branc h gel artificial Yes [id number] 1[drp] Place 1 [facility] tears,hypro 7-13 Drop in ity o f mellose, 00:00: left eye [place] 0.5 % 00 as needed Medical ophthalmic for Dry Branch drops eyes. glucagon 1 Yes [id number] 1mg 1 mg by [facility] mg/mL SolR 7-13 Intramuscu ity of injection 00:00: lar route [place] 00 as needed Medical (Blood Branch Glucose < or = 70 mg/dL and patient is NPO, unable to swallow or has mental changes.). insulin Yes [id number] 6U inject 6 U nivers lispro, 7-13 Units ity of human, 100 00:00: under the [place] unit/mL 00 skin in Medical injection the Branch morning and 6 Units at noon and 6 Units in the evening. inject with meals. Blood-Gluco Yes [id number] Use as [facility] se Meter 7-13 directed ity of (ACCU-CHEK 00:00: [place] GUIDE 00 Medical GLUCOSE Branch METER) Misc lancets 33 0 Yes [id number] Use as [facility] gauge Misc 7-13 directed ity o f 00:00: [place] 00 Medical Branch blood sugar 0 Yes [id number] Use as [facility] diagnostic 7-13 directed ity o f (ACCU-CHEK 00:00: [place] GUIDE TEST 00 Medical STRIPS) Branch strip gabapentin Yes [id number] 300mg Take 1 [facility] 300 mg 7-13 capsule by ity of capsule 00:00: mouth in [place] 00 the Medical morning Branch and 1 capsule at noon and 1 capsule in the evening. Insulin Yes [id number] 30U inject 30 [facility] Glargine 7-13 Units ity of 100 unit/mL 00:00: under the [place] (3 mL) 00 skin in Medical injection the Branch morning. insulin Yes [id number] 6U inject 6 U nivers lispro 7-13 Units ity of (HUMALOG 00:00: [place] 00 skin in Medical INSULIN) the Branch 100 unit/mL morning pen and 6 injector Units at noon and 6 Units in the evening. inject before meals. neomycin-po Yes [id number] 4[drp] Place 4 [facility] lymyxin-hyd 7- 89086 Drops in ity of rocortisone 00:00: left ear [place] 3.5-10,000- 00 in the Medica l 1 morning Branch mg/mL-unit/ and 4 mL-% otic Drops in susp the evening. artificial Yes [id number] 1[drp] Place 1 [facility] tears, 7-13 Drop in ity of hypromellos 00:00: left eye [place], 0.3 % 00 at Medical ophthalmic bedtime. Branc h gel artificial Yes [id number] 1[drp] Place 1 [facility] tears,hypro 7-13 Drop in ity o f mellose, 00:00: left eye [place] 0.5 % 00 as needed Medical ophthalmic for Dry Branch drops eyes. glucagon 1 Yes [id number] 1mg 1 mg by [facility] mg/mL SolR 7 Intramuscu ity of injection 00:00: lar route [place] 00 as needed Medical (Blood Branch Glucose < or = 70 mg/dL and patient is NPO, unable to swallow or has mental changes.). insulin Yes [id number] 6U inject 6 U nivers lispro, 7-13 Units ity of human, 100 00:00: under the [place] unit/mL 00 skin in Medical injection the Branch morning and 6 Units at noon and 6 Units in the evening. inject with meals. Blood-Gluco Yes [id number] Use as [facility] se Meter 7-13 directed ity of (ACCU-CHEK 00:00: [place] GUIDE 00 Medical GLUCOSE Branch METER) Misc lancets 33 Yes [id number] Use as [facility] gauge Misc 7-13 directed ity o f 00:00: [place] 00 Medical Branch blood sugar Yes [id number] Use as [facility] diagnostic 7-13 directed ity o f (ACCU-CHEK 00:00: [place] GUIDE TEST 00 Medical STRIPS) Branch strip gabapentin Yes [id number] 300mg Take 1 [facility] 300 mg 7-13 capsule by ity of capsule 00:00: mouth in [place] 00 the Medical morning Branch and 1 capsule at noon and 1 capsule in the evening. Insulin Yes [id number] 30U inject 30 [facility] Glargine 7-13 Units ity of 100 unit/mL 00:00: under the [place] (3 mL) 00 skin in Medical injection the Branch morning. insulin Yes [id number] 6U inject 6 U nivers lispro 7-13 Units ity of (HUMALOG 00:00: [place] 00 skin in Medical INSULIN) the Branch 100 unit/mL morning pen and 6 injector Units at noon and 6 Units in the evening. inject before meals. neomycin-po Yes [id number] 4[drp] Place 4 [facility] lymyxin-hyd 7-13 49763 Drops in ity of rocortisone 00:00: left ear [place] 3.5-10,000- 00 in the Medica l 1 morning Branch mg/mL-unit/ and 4 mL-% otic Drops in susp the evening. artificial Yes [id number] 1[drp] Place 1 [facility] tears, 7-13 Drop in ity of hypromellos 00:00: left eye [place] e, 0.3 % 00 at Medical ophthalmic bedtime. Branc h gel artificial Yes [id number] 1[drp] Place 1 [facility] tears,hypro 7-13 Drop in ity o f mellose, 00:00: left eye [place] 0.5 % 00 as needed Medical ophthalmic for Dry Branch drops eyes. glucagon Yes [id number] 1mg 1 mg by [facility] mg/mL SolR 7-13 Intramuscu ity of injection 00:00: lar route [place] 00 as needed Medical (Blood Branch Glucose < or = 70 mg/dL and patient is NPO, unable to swallow or has mental changes.). insulin Yes [id number] 6U inject 6 U nivers lispro, 7-13 Units ity of human, 100 00:00: under the [place] unit/mL 00 skin in Medical injection the Branch morning and 6 Units at noon and 6 Units in the evening. inject with meals. Blood-Gluco Yes [id number] Use as [facility] se Meter 7-13 directed ity of (ACCU-CHEK 00:00: [place] GUIDE 00 Medical GLUCOSE Branch METER) Misc lancets 33 Yes [id number] Use as [facility] gauge Misc 7-13 directed ity o f 00:00: [place] 00 Medical Branch blood sugar Yes [id number] Use as [facility] diagnostic 7-13 directed ity o f (ACCU-CHEK 00:00: [place] GUIDE TEST 00 Medical STRIPS) Branch strip gabapentin Yes [id number] 300mg Take 1 [facility] 300 mg 7-13 capsule by ity of capsule 00:00: mouth in [place] 00 the Medical morning Branch and 1 capsule at noon and 1 capsule in the evening. Insulin Yes [id number] 30U inject 30 [facility] Glargine 7-13 Units ity of 100 unit/mL 00:00: under the [place] (3 mL) 00 skin in Medical injection the Branch morning. insulin Yes [id number] 6U inject 6 U nivers lispro 7-13 Units ity of (HUMALOG 00:00: [place] KWIKPEN 00 skin in Medical INSULIN) the Branch 100 unit/mL morning pen and 6 injector Units at noon and 6 Units in the evening. inject before meals. neomycin-po Yes [id number] 4[drp] Place 4 [facility] lymyxin-hyd 7-13 65738 Drops in ity of rocortisone 00:00: left ear [place] 3.5-10,000- 00 in the Medica l 1 morning Branch mg/mL-unit/ and 4 mL-% otic Drops in susp the evening. artificial Yes [id number] 1[drp] Place 1 [facility] tears, 7-13 Drop in ity of hypromellos 00:00: left eye [place], 0.3 % 00 at Medical ophthalmic bedtime. Branc h gel artificial Yes [id number] 1[drp] Place 1 [facility] tears,hypro 7-13 Drop in ity o f mellose, 00:00: left eye [place] 0.5 % 00 as needed Medical ophthalmic for Dry Branch drops eyes. glucagon 1 Yes [id number] 1mg 1 mg by [facility] mg/mL SolR 7-13 Intramuscu ity of injection 00:00: lar route [place] 00 as needed Medical (Blood Branch Glucose < or = 70 mg/dL and patient is NPO, unable to swallow or has mental changes.). insulin Yes [id number] 6U inject 6 U nivers lispro, 7-13 Units ity of human, 100 00:00: under the [place] unit/mL 00 skin in Medical injection the Branch morning and 6 Units at noon and 6 Units in the evening. inject with meals. Blood-Gluco Yes [id number] Use as [facility] se Meter 7-13 directed ity of (ACCU-CHEK 00:00: [place] GUIDE 00 Medical GLUCOSE Branch METER) Misc lancets 33 Yes [id number] Use as [facility] gauge Misc 7-13 directed ity o f 00:00: [place] 00 Medical Branch blood sugar Yes [id number] Use as [facility] diagnostic -13 directed ity o f (ACCU-CHEK 00:00: [place] GUIDE TEST 00 Medical STRIPS) Branch strip gabapentin Yes [id number] 300mg Take 1 [facility] 300 mg 7-13 capsule by ity of capsule 00:00: mouth in [place] 00 the Medical morning Branch and 1 capsule at noon and 1 capsule in the evening. Insulin Yes [id number] 30U inject 30 [facility] Glargine 7-13 Units ity of 100 unit/mL 00:00: under the [place] (3 mL) 00 skin in Medical injection the Branch morning. insulin Yes [id number] 6U inject 6 U nivers lispro 7-13 Units ity of (HUMALOG 00:00: [place] KWIKPEN [place] skin in Medical INSULIN) the Branch 100 unit/mL morning pen and 6 injector Units at noon and 6 Units in the evening. inject before meals. neomycin-po Yes [id number] 4[drp] Place 4 [facility] lymyxin-hyd 04-12 23583 Drops in ity of rocortisone 00:00: left ear [place] 3.5-10,000- 00 in the Medica l 1 morning Branch mg/mL-unit/ and 4 mL-% otic Drops in susp the evening. artificial 2022- Yes [id number] 1[drp] Place 1 [facility] tears, 7-13 Drop in ity of hypromellos 00:00: left eye [place] e, 0.3 % 00 at Medical ophthalmic bedtime. Branc h gel artificial Yes [id number] 1[drp] Place 1 [facility] tears,hypro 7-13 Drop in ity o f mellose, 00:00: left eye [place] 0.5 % 00 as needed Medical ophthalmic for Dry Branch drops eyes. glucagon 1 Yes [id number] 1mg 1 mg by [facility] mg/mL SolR 7-13 Intramuscu ity of injection 00:00: lar route [place] 00 as needed Medical (Blood Branch Glucose < or = 70 mg/dL and patient is NPO, unable to swallow or has mental changes.). insulin Yes [id number] 6U inject 6 U nivers lispro, 7-13 Units ity of human, 100 00:00: under the [place] unit/mL 00 skin in Medical injection the Branch morning and 6 Units at noon and 6 Units in the evening. inject with meals. Blood-Gluco Yes [id number] Use as [facility] se Meter 7-13 directed ity of (ACCU-CHEK 00:00: [place] GUIDE 00 Medical GLUCOSE Branch METER) Misc lancets 33 2022-0 Yes [id number] Use as [facility] gauge Misc 7-13 directed ity o f 00:00: [place] 00 Medical Branch blood sugar 2022-0 Yes [id number] Use as [facility] diagnostic 7-13 directed ity o f (ACCU-CHEK 00:00: [place] GUIDE TEST 00 Medical STRIPS) Branch strip gabapentin Yes [id number] 300mg Take 1 [facility] 300 mg 7-13 capsule by ity of capsule 00:00: mouth in [place] 00 the Medical morning Branch and 1 capsule at noon and 1 capsule in the evening. Insulin 2022- Yes [id number] 30U inject 30 [facility] Glargine 7-13 Units ity of 100 unit/mL 00:00: under the [place] (3 mL) 00 skin in Medical injection the Branch morning. insulin 2022- Yes [id number] 6U inject 6 U nivers lispro 7-13 Units ity of (HUMALOG 00:00: [place] KWIKPEN [place] skin in Medical INSULIN) the Branch 100 unit/mL morning pen and 6 injector Units at noon and 6 Units in the evening. inject before meals. neomycin-po 0 Yes [id number] 4[drp] Place 4 [facility] lymyxin-hyd 7 Drops in ity of rocortisone 00:00: left ear [place] 3.5-10,000- 00 in the Medica l 1 morning Branch mg/mL-unit/ and 4 mL-% otic Drops in susp the evening. acetaminoph 2022-0 2024- No [id number] 650mg Take 2 [facility] en 325 mg 7-13 07-13 tablets by ity of tablet 00:00: 04:59 mouth [place] 00 :00 every 6 Medical (six) Branch hours. acetaminoph 2022-0 4- No [id number] 650mg Take 2 [facility] en 325 mg 7-13 07-13 tablets by ity of tablet 00:00: 04:59 mouth [place] 00 :00 every 6 Medical (six) Branch hours. acetaminoph 2022-0 4- No [id number] 650mg Take 2 [facility] en 325 mg 7-13 07-13 tablets by ity of tablet 00:00: 04:59 mouth [place] 00 :00 every 6 Medical (six) Branch hours. acetaminoph 2022-0 4- No [id number] 650mg Take 2 [facility] en 325 mg 7-13 07-13 tablets by ity of tablet 00:00: 04:59 mouth [place] 00 :00 every 6 Medical (six) Branch hours. acetaminoph 2022-0 4- No [id number] 650mg Take 2 [facility] en 325 mg 7-13 07-13 tablets by ity of tablet 00:00: 04:59 mouth [place] 00 :00 every 6 Medical (six) Branch hours. acetaminoph 202-0 2024- No [id number] 650mg Take 2 [facility] en 325 mg 7-13 07-13 tablets by ity of tablet 00:00: 04:59 mouth [place] 00 :00 every 6 Medical (six) Branch hours. acetaminoph 202-0 2024- No [id number] 650mg Take 2 [facility] en 325 mg 7-13 07-13 tablets by ity of tablet 00:00: 04:59 mouth [place] 00 :00 every 6 Medical (six) Branch hours. acetaminoph 2023-0 2024- No [id number] 650mg Take 2 [facility] en 325 mg 7-13 07-13 tablets by ity of tablet 00:00: 04:59 mouth [place] 00 :00 every 6 Medical (six) Branch hours. acetaminoph 2023-0 2024- No [id number] 650mg Take 2 [facility] en 325 mg 7-13 07-13 tablets by ity of tablet 00:00: 04:59 mouth [place] 00 :00 every 6 Medical (six) Branch hours. acetaminoph 2023-0 2024- No [id number] 650mg Take 2 [facility] en 325 mg 7-13 07-13 tablets by ity of tablet 00:00: 04:59 mouth [place] 00 :00 every 6 Medical (six) Branch hours. acetaminoph 2023-0 2024- No [id number] 650mg Take 2 [facility] en 325 mg 7-13 07-13 tablets by ity of tablet 00:00: 04:59 mouth [place] 00 :00 every 6 Medical (six) Branch hours. acetaminoph 2023-0 2024- No [id number] 650mg Take 2 [facility] en 325 mg 7-13 07-13 tablets by ity of tablet 00:00: 04:59 mouth [place] 00 :00 every 6 Medical (six) Branch hours. acetaminoph 2023-0 2024- No [id number] 650mg Take 2 [facility] en 325 mg 7-13 07-13 tablets by ity of tablet 00:00: 04:59 mouth [place] 00 :00 every 6 Medical (six) Branch hours. acetaminoph 2023-0 2024- No [id number] 650mg Take 2 [facility] en 325 mg 7-13 07-13 tablets by ity of tablet 00:00: 04:59 mouth [place] 00 :00 every 6 Medical (six) Branch hours. acetaminoph 2023-0 2024- No [id number] 650mg Take 2 [facility] en 325 mg 7-13 07-13 tablets by ity of tablet 00:00: 04:59 mouth [place] 00 :00 every 6 Medical (six) Branch hours. acetaminoph 2023-0 2024- No [id number] 650mg Take 2 [facility] en 325 mg 7-13 07-13 tablets by ity of tablet 00:00: 04:59 mouth [place] 00 :00 every 6 Medical (six) Branch hours. acetaminoph 2023-0 2024- No [id number] 650mg Take 2 [facility] en 325 mg 7-13 07-13 tablets by ity of tablet 00:00: 04:59 mouth [place] 00 :00 every 6 Medical (six) Branch hours. acetaminoph 2023-0 2024- No [id number] 650mg Take 2 [facility] en 325 mg 7-13 07-13 tablets by ity of tablet 00:00: 04:59 mouth [place] 00 :00 every 6 Medical (six) Branch hours. acetaminoph 2023-0 2024- No [id number] 650mg Take 2 [facility] en 325 mg 7-13 07-13 tablets by ity of tablet 00:00: 04:59 mouth [place] 00 :00 every 6 Medical (six) Branch hours. acetaminoph 2023-0 2024- No [id number] 650mg Take 2 [facility] en 325 mg 7-13 07-13 tablets by ity of tablet 00:00: 04:59 mouth [place] 00 :00 every 6 Medical (six) Branch hours. acetaminoph 2023-0 2024- No [id number] 650mg Take 2 [facility] en 325 mg 7-13 07-13 tablets by ity of tablet 00:00: 04:59 mouth [place] 00 :00 every 6 Medical (six) Branch hours. acetaminoph 2023-0 2024- No [id number] 650mg Take 2 [facility] en 325 mg 7-13 07-13 tablets by ity of tablet 00:00: 04:59 mouth [place] 00 :00 every 6 Medical (six) Branch hours. acetaminoph 2023-0 2024- No [id number] 650mg Take 2 [facility] en 325 mg 7-13 07-13 tablets by ity of tablet 00:00: 04:59 mouth [place] 00 :00 every 6 Medical (six) Branch hours. acetaminoph 2023-0 2024- No [id number] 650mg Take 2 [facility] en 325 mg 7-13 07-13 tablets by ity of tablet 00:00: 04:59 mouth [place] 00 :00 every 6 Medical (six) Branch hours. acetaminoph 2023-0 2024- No [id number] 650mg Take 2 [facility] en 325 mg 7-13 07-13 tablets by ity of tablet 00:00: 04:59 mouth [place] 00 :00 every 6 Medical (six) Branch hours. acetaminoph 2023-0 2024- No [id number] 650mg Take 2 [facility] en 325 mg 7-13 07-13 tablets by ity of tablet 00:00: 04:59 mouth [place] 00 :00 every 6 Medical (six) Branch hours. acetaminoph 2023-0 2024- No [id number] 650mg Take 2 [facility] en 325 mg 7-13 07-13 tablets by ity of tablet 00:00: 04:59 mouth [place] 00 :00 every 6 Medical (six) Branch hours. acetaminoph 2023-0 2024- No [id number] 650mg Take 2 [facility] en 325 mg 7-13 07-13 tablets by ity of tablet 00:00: 04:59 mouth [place] 00 :00 every 6 Medical (six) Branch hours. acetaminoph 2023-0 2024- No [id number] 650mg Take 2 [facility] en 325 mg 7-13 07-13 tablets by ity of tablet 00:00: 04:59 mouth [place] 00 :00 every 6 Medical (six) Branch hours. acetaminoph 2023-0 2024- No [id number] 650mg Take 2 [facility] en 325 mg 7-13 07-13 tablets by ity of tablet 00:00: 04:59 mouth [place] 00 :00 every 6 Medical (six) Branch hours. acetaminoph 2023-0 2024- No [id number] 650mg Take 2 [facility] en 325 mg 7-13 07-13 tablets by ity of tablet 00:00: 04:59 mouth [place] 00 :00 every 6 Medical (six) Branch hours. acetaminoph 2023-0 2024- No [id number] 650mg Take 2 [facility] en 325 mg 7-13 07-13 tablets by ity of tablet 00:00: 04:59 mouth [place] 00 :00 every 6 Medical (six) Branch hours. acetaminoph 2023-0 2024- No [id number] 650mg Take 2 [facility] en 325 mg 7-13 07-13 tablets by ity of tablet 00:00: 04:59 mouth [place] 00 :00 every 6 Medical (six) Branch hours. acetaminoph 2023-0 2024- No [id number] 650mg Take 2 [facility] en 325 mg 7-13 07-13 tablets by ity of tablet 00:00: 04:59 mouth [place] 00 :00 every 6 Medical (six) Branch hours. acetaminoph 202-0 4- No [id number] 650mg Take 2 [facility] en 325 mg 7-13 07-13 tablets by ity of tablet 00:00: 04:59 mouth [place] 00 :00 every 6 Medical (six) Branch hours. acetaminoph 2023-0 2024- No [id number] 650mg Take 2 [facility] en 325 mg 7-13 07-13 tablets by ity of tablet 00:00: 04:59 mouth [place] 00 :00 every 6 Medical (six) Branch hours. acetaminoph 2023-0 2024- No [id number] 650mg Take 2 [facility] en 325 mg 7-13 07-13 tablets by ity of tablet 00:00: 04:59 mouth [place] 00 :00 every 6 Medical (six) Branch hours. acetaminoph 202-0 4- No [id number] 650mg Take 2 [facility] en 325 mg 7-13 07-13 tablets by ity of tablet 00:00: 04:59 mouth [place] 00 :00 every 6 Medical (six) Branch hours. acetaminoph 202-0 4- No [id number] 650mg Take 2 [facility] en 325 mg 7-13 07-13 tablets by ity of tablet 00:00: 04:59 mouth [place] 00 :00 every 6 Medical (six) Branch hours. acetaminoph 2023-0 4- No [id number] 650mg Take 2 [facility] en 325 mg 7-13 07-13 tablets by ity of tablet 00:00: 04:59 mouth [place] 00 :00 every 6 Medical (six) Branch hours. acetaminoph 2023-0 2024- No [id number] 650mg Take 2 [facility] en 325 mg 7-13 07-13 tablets by ity of tablet 00:00: 04:59 mouth [place] 00 :00 every 6 Medical (six) Branch hours. acetaminoph 2023-0 2024- No [id number] 650mg Take 2 [facility] en 325 mg 7-13 07-13 tablets by ity of tablet 00:00: 04:59 mouth [place] 00 :00 every 6 Medical (six) Branch hours. acetaminoph 2023-0 2024- No [id number] 650mg Take 2 [facility] en 325 mg 7-13 07-13 tablets by ity of tablet 00:00: 04:59 mouth [place] 00 :00 every 6 Medical (six) Branch hours. acetaminoph 2023-0 2024- No [id number] 650mg Take 2 [facility] en 325 mg 7-13 07-13 tablets by ity of tablet 00:00: 04:59 mouth [place] 00 :00 every 6 Medical (six) Branch hours. acetaminoph 2023-0 2024- No [id number] 650mg Take 2 [facility] en 325 mg 7-13 07-13 tablets by ity of tablet 00:00: 04:59 mouth [place] 00 :00 every 6 Medical (six) Branch hours. acetaminoph 2023-0 2024- No [id number] 650mg Take 2 [facility] en 325 mg 7-13 07-13 tablets by ity of tablet 00:00: 04:59 mouth [place] 00 :00 every 6 Medical (six) Branch hours. acetaminoph 2023-0 2024- No [id number] 650mg Take 2 [facility] en 325 mg 7-13 07-13 tablets by ity of tablet 00:00: 04:59 mouth [place] 00 :00 every 6 Medical (six) Branch hours. acetaminoph 2023-0 2024- No [id number] 650mg Take 2 [facility] en 325 mg 7-13 07-13 tablets by ity of tablet 00:00: 04:59 mouth [place] 00 :00 every 6 Medical (six) Branch hours. acetaminoph 2023-0 2024- No [id number] 650mg Take 2 [facility] en 325 mg 7-13 07-13 tablets by ity of tablet 00:00: 04:59 mouth [place] 00 :00 every 6 Medical (six) Branch hours. acetaminoph 2023-0 2024- No [id number] 650mg Take 2 [facility] en 325 mg 7-13 07-13 tablets by ity of tablet 00:00: 04:59 mouth [place] 00 :00 every 6 Medical (six) Branch hours. acetaminoph 2023-0 2024- No [id number] 650mg Take 2 [facility] en 325 mg 7-13 07-13 tablets by ity of tablet 00:00: 04:59 mouth [place] 00 :00 every 6 Medical (six) Branch hours. acetaminoph 2023-0 2024- No [id number] 650mg Take 2 [facility] en 325 mg -12 04- tablets by ity of tablet 00:00: 04:59 mouth [place] 00 :00 every 6 Medical (six) Branch hours. oxyCODONE 2022-2022- No [id number] 10mg Take 1 Unive rs 10 mg Tab 04-12- tablet by ity of 00:00: 04:59 mouth [place] 00 :00 every 6 Medical (six) Branch hours as needed for Pain (scale 7-10) for up to 7 days. Indication s: acute pain oxyCODONE 2022-2022- No [id number] 10mg Take 1 Unive rs 10 mg Tab 04-12 tablet by ity of 00:00: 04:59 mouth [place] 00 :00 every 6 Medical (six) Branch hours as needed for Pain (scale 7-10) for up to 7 days. Indication s: acute pain oxyCODONE 2022- No 4647 10mg Take 1 Unive rs 10 mg Tab 04-12 tablet by ity of 00:00: 04:59 mouth [place] 00 :00 every 6 Medical (six) Branch hours as needed for Pain (scale 7-10) for up to 7 days. Indication s: acute pain oxyCODONE 2022-2022- No 4647 10mg Take 1 Unive rs 10 mg Tab 04-12 tablet by ity of 00:00: 04:59 mouth [place] 00 :00 every 6 Medical (six) Branch hours as needed for Pain (scale 7-10) for up to 7 days. Indication s: acute pain oxyCODONE 2022-0 2022- No 4647 10mg Take 1 Unive rs 10 mg Tab 04-12-21 tablet by ity of 00:00: 04:59 mouth [place] 00 :00 every 6 Medical (six) Branch hours as needed for Pain (scale 7-10) for up to 7 days. Indication s: acute pain oxyCODONE 2022-0 2022- No 4647 10mg Take 1 Unive rs 10 mg Tab 04-12- tablet by ity of 00:00: 04:59 mouth [place] 00 :00 every 6 Medical (six) Branch hours as needed for Pain (scale 7-10) for up to 7 days. Indication s: acute pain oxyCODONE 2023-0 2023- No 4647 10mg Take 1 Unive rs 10 mg Tab 7-13 07-21 tablet by ity of 00:00: 04:59 mouth [place] 00 :00 every 6 Medical (six) Branch hours as needed for Pain (scale 7-10) for up to 7 days. Indication s: acute pain oxyCODONE 2023-0 2023- No 4647 10mg Take 1 Unive rs 10 mg Tab 7-13 07-21 tablet by ity of 00:00: 04:59 mouth [place] 00 :00 every 6 Medical (six) Branch hours as needed for Pain (scale 7-10) for up to 7 days. Indication s: acute pain oxyCODONE 2023-0 2023- No 4647 10mg Take 1 Unive rs 10 mg Tab 7-13 07-21 tablet by ity of 00:00: 04:59 mouth [place] 00 :00 every 6 Medical (six) Branch hours as needed for Pain (scale 7-10) for up to 7 days. Indication s: acute pain oxyCODONE 2023-0 2023- No 4647 10mg Take 1 Unive rs 10 mg Tab 7-13 07-21 tablet by ity of 00:00: 04:59 mouth [place] 00 :00 every 6 Medical (six) Branch hours as needed for Pain (scale 7-10) for up to 7 days. Indication s: acute pain oxyCODONE 2023-0 2023- No 4647 10mg Take 1 Unive rs 10 mg Tab 7-13 07-21 tablet by ity of 00:00: 04:59 mouth [place] 00 :00 every 6 Medical (six) Branch hours as needed for Pain (scale 7-10) for up to 7 days. Indication s: acute pain oxyCODONE 2023-0 2023- No 4647 10mg Take 1 Unive rs 10 mg Tab 7-13 07-21 tablet by ity of 00:00: 04:59 mouth [place] 00 :00 every 6 Medical (six) Branch hours as needed for Pain (scale 7-10) for up to 7 days. Indication s: acute pain oxyCODONE 2023-0 2023- No 4647 10mg Take 1 Unive rs 10 mg Tab 7-13 07-21 tablet by ity of 00:00: 04:59 mouth [place] 00 :00 every 6 Medical (six) Branch hours as needed for Pain (scale 7-10) for up to 7 days. Indication s: acute pain oxyCODONE 2023-0 2023- No 4647 10mg Take 1 Unive rs 10 mg Tab 7-13 07-21 tablet by ity of 00:00: 04:59 mouth [place] 00 :00 every 6 Medical (six) Branch hours as needed for Pain (scale 7-10) for up to 7 days. Indication s: acute pain oxyCODONE 2023-0 2023- No 4647 10mg Take 1 Unive rs 10 mg Tab 7-13 07-21 tablet by ity of 00:00: 04:59 mouth [place] 00 :00 every 6 Medical (six) Branch hours as needed for Pain (scale 7-10) for up to 7 days. Indication s: acute pain oxyCODONE 2023-0 2023- No 4647 10mg Take 1 Unive rs 10 mg Tab 7-13 07-21 tablet by ity of 00:00: 04:59 mouth [place] 00 :00 every 6 Medical (six) Branch hours as needed for Pain (scale 7-10) for up to 7 days. Indication s: acute pain oxyCODONE 2023-0 2023- No 4647 10mg Take 1 Unive rs 10 mg Tab 7-13 07-21 tablet by ity of 00:00: 04:59 mouth [place] 00 :00 every 6 Medical (six) Branch hours as needed for Pain (scale 7-10) for up to 7 days. Indication s: acute pain oxyCODONE 2023-0 2023- No 4647 10mg Take 1 Unive rs 10 mg Tab 7-13 07-21 tablet by ity of 00:00: 04:59 mouth [place] 00 :00 every 6 Medical (six) Branch hours as needed for Pain (scale 7-10) for up to 7 days. Indication s: acute pain oxyCODONE 2023-0 2023- No 4647 10mg Take 1 Unive rs 10 mg Tab 7-13 07-21 tablet by ity of 00:00: 04:59 mouth [place] 00 :00 every 6 Medical (six) Branch hours as needed for Pain (scale 7-10) for up to 7 days. Indication s: acute pain oxyCODONE 2023-0 2023- No 4647 10mg Take 1 Unive rs 10 mg Tab 04-12 tablet by ity of 00:00: 04:59 mouth [place] 00 :00 every 6 Medical (six) Branch hours as needed for Pain (scale 7-10) for up to 7 days. Indication s: acute pain oxyCODONE 2022-0 2022- No 4647 10mg Take 1 Unive rs 10 mg Tab 04-12 tablet by ity of 00:00: 04:59 mouth [place] 00 :00 every 6 Medical (six) Branch hours as needed for Pain (scale 7-10) for up to 7 days. Indication s: acute pain oxyCODONE 2022-0 2022- No 4647 10mg Take 1 Unive rs 10 mg Tab 04-12 tablet by ity of 00:00: 04:59 mouth [place] 00 :00 every 6 Medical (six) Branch hours as needed for Pain (scale 7-10) for up to 7 days. Indication s: acute pain oxyCODONE 2022-0 2022- No 4647 10mg Take 1 Unive rs 10 mg Tab 04-12 tablet by ity of 00:00: 04:59 mouth [place] 00 :00 every 6 Medical (six) Branch hours as needed for Pain (scale 7-10) for up to 7 days. Indication s: acute pain insulin 2022- No 6U 6 Units, Unive rs lispro 04-11 Subcutaneo ity of (human) 17:45: 16:53 us, TID [place] (HumaLOG 00 :35 MEALS, Medical U-100) First dose Branch injection 6 (after Units last modificati on) on Sun04/11/23 at 1245, Until Discontinu ed, Routine insulin 2022- No 15U 15 Units, Univ ers glargine 04-11 Subcutaneo ity of (LANTUS 17:35: 17:45 [place], ONCE, [place] U-100) 00 :00 1 dose, On Medical injection Wed Branch 15 Units 04/11/23 at 1245, NITA ceFEPIme 2022- No 2000mg 2,000 mg, U nivers (MAXIPIME) 04-11 IV ity of 2,000 mg in 05:26: 05:29 [place], [place] NaCl 0.9% 00 :00 Q12H ABX, Medic al (NS) 100 mL 16 doses, [facility] MINI-BAG First dose (after last modificati on) on Sun04/11/23 at 0030, Last dose on Sun04/18/23 at 1230, Administer over 4 Hours, 100 mL
Reas on for Anti-Infec tive: Documented Infection< br>Documen lora Infection Site: HEENT
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
Reas on for Anti-Infec tive: Documented Infection< br>Documen lora Infection Site: HEENT
D uration of Therapy: 10 days metroNIDAZO 2022- No 500mg 500 mg, IV [facility] LE in NaCl 04-1102 Infusion, ity of (iso-os) 00:30: 00:29 Q8H ABX, [place] (FLAGYL 00 :00 63 doses, Medical I.V.) RTU First dose Bran ch IV infusion on Sun 500 mg 04/10/23 at 1930, Last dose on Sun05/01/23 at 1130, Administer over 60 Minutes, 100 mL
Reas on for Anti-Infec tive: Documented Infection& lt;br>Docu mented Infection Site: HEENT
D uration of Therapy: Other (see Comments) insulin 2022- No 5U 5 Units, Unive rs lispro 04-1012 Subcutaneo ity of (human) 22:00: 17:31 us, TID [place] (HumaLOG 00 :53 MEALS, Medical U-100) First dose Branch injection 5 (after Units last modificati on) on e 04/10/23 at 1700, Until Discontinu ed, Routine insulin 2022- No 12U 12 Units, Univ ers glargine 04-10 Subcutaneo ity of (LANTUS 19:00: 17:31 us, BID, [place] U-100) 00 :53 First dose Medical injection on Branch 12 Units 04/10/23 at 1400, Until Discontinu ed, Routine empaglifloz 2022- No 10mg 10 mg, Uni vers in 04-10 Oral, ity of (JARDIANCE) 14:00: 21:30 DAILY, [place] tablet 10 00 :12 First dose Medi purvi mg on [facility] Branch 04/10/23 at 0900, Until Discontinu ed, Routine
Is this a home medication ? No
Inpa tient ordering of this medication is not allowed unless the patient is maintained on this medication at home, and home supply is unavailabl e. Does this order meet the criteria for inpatient ordering? Yes insulin 2022- No 3U 3 Units, Unive rs lispro 04-10 Subcutaneo ity of (human) 13:00: 18:46 us, TID [place] (HumaLOG 00 :50 MEALS, Medical U-100) First dose Branch injection 3 on [facility] Units 04/10/23 at 0800, Until Discontinu ed, Routine NaCl 0.9% Yes 10mL 10 mL, Univer s (NS) 04-10 Slow IV ity of injection 12:28: [place], [place], [place] 10 mL 19 Starting Medical on [facility] Branch 04/10/23 at 0728, Until Discontinu ed, Routine, line maintenanc e glimepiride 2022- No 4mg 4 mg, Univ ers (AMARYL) 04-09 Oral, ity of tablet 4 mg 21:30: 16:53 BIDAC, [place] 00 :26 First dose Medical (after Branch last modificati on) on 04/09/23 at 1630, Until Discontinu ed, Routine tc 2022- No [id number] 26.3mCi 26.3 Un todd 99m-medrona 04-09 73430 millicurie ity of te 13:45: 13:35 , [place] (DRAXIMAGE 00 :00 Intravenou Med ical MDP-25) s, ONCE, 1 Branch injection dose, On 26.3 Mon millicurie 04/09/23 at 0845, Routine insulin 2022- No 10U 10 Units, [facility] ers glargine 04-09 Subcutaneo ity of (LANTUS 02:00: 20:26 us, QHS, [place] U-100) 00 :59 First dose Medical injection on Sun Branch 10 Units 04/08/23 at 2100, Until Discontinu ed, Routine insulin NPH 2022- No 10U 10 Units, Univers (HUMULIN N) 04-08 Subcutaneo i ty of injection 16:45: 17:07 [place], ONCE, [place] 10 Units 00 :00 1 dose, On Medic al [place] 04/08/23 Branch at 1145, Routine Sliding Yes Subcutaneo [facility] ers Scale 08 us, TID ity of Insulin - 17:00: MEALS+HS, [place] as Lispro 00 First dose Medical (HumaLOG) on Sat Branch 04/07/23 at 1200, Until Discontinu ed, Routine glucagon Yes 1mg 1 mg, Univers (GLUCAGEN 04-07 Intramuscu ity of DIAGNOSTIC 16:56: lar, PRN, [place] KIT) 38 Starting Medical injection 1 on Sat Branch mg 04/07/23 at 1156, Until Discontinu ed, NITA, Blood Glucose < or = 70 mg/dL and patient is NPO, unable to swallow or has mental changes. glimepiride 2022- No 2mg 2 mg, [facility] ers (AMARYL) 04-06 Oral, ity of tablet 2 mg 21:30: 14:31 BIDAC, [place] 00 :40 First dose Medical on Fri Branch 04/06/23 at 1630, Until Discontinu ed, Routine sennosides- Yes 2{tbl} 2 tablet, Univers docusate 04-06 Oral, ity of sodium 17:00: DAILY, [place] (SENOKOT-S) 00 First dose Me dical 8.6-50 mg on Sun Branch per tablet 04/06/23 at 2 tablet 1200, Until Discontinu ed, Routine magnesium No 2g 2 g, IV Univ ers sulfate in 04-06 Piggyback, it y of water 2 15:00: 17:42 Administer [place] as gram/50 mL 00 :00 over 60 Medica l (4 %) Minutes, Branch infusion 2 ONCE, 1 g dose, On Sun04/06/23 at 1000, Routine oxyCODONE Yes 10mg 10 mg, Univer s immediate 04-06 Oral, ity of release 11:42: Q6HPRN, [place] tablet 10 55 Starting Medica l mg on Sun Branch 04/06/23 at 0642, Until Discontinu ed, Routine, Pain (scale 7-10)<b r>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
Reas on for Anti-Infec tive: Documented Infection& lt;br>Docu mented Infection Site: HEENT
D uration of Therapy: 10 days ceFEPIme 2022- No 2000mg 2,000 mg, U nivers (MAXIPIME) 04-06 IV ity of 2,000 mg in 01:30: 03:47 [place], [place] NaCl 0.9% 00 :00 ONCE, 1 Medical (NS) 100 mL dose, On Bran MINI-BAG [place] 04/05/23 at 2030, Administer over 30 Minutes, 100 mL
Reas on for Anti-Infec tive: Documented Infection< br>Documen lora Infection Site: HEENT<br&g t;Duration of Therapy: 10 days vancomycin 2022-0 202- No 1250mg 1,250 mg, Univers 1,250 mg in 04-06 IV ity of NaCl 0.9% 00:45: 23:36 [place]gyback, [place] (NS) 250 mL 00 :04 Q12H ABX, Med ical VIAL-MATE 20 doses, Branc h IV First dose piggyback on [facility] 04/05/23 at 1945, Last dose on [place] 04/15/23 at 0745, Administer over 90 Minutes, 250 mL
Reas on for Anti-Infec tive: Documented Infection< br>Documen lora Infection Site: HEENT
D uration of Therapy: 10 days polyethylen Yes 17g 17 g, Unive rs e glycol 04-05 Oral, ity of 3350 powder 14:00: DAILY, [place] 17 g 00 First dose Medical on [facility] 04/05/23 at 0900, Until Discontinu ed, Routine enoxaparin 0 Yes 40mg 40 mg, Unive rs (LOVENOX) 04-05 Subcutaneo ity of injection 14:00: us, DAILY, [place] 40 mg 00 First dose Medical on [facility] 04/05/23 at 0900, Until Discontinu ed, Routine tamsulosin 0 Yes .4mg 0.4 mg, Univ ers (FLOMAX) 04-05 Oral, ity of capsule 0.4 14:00: DAILY, [place] mg 00 First dose Medical on [facility] 04/05/23 at 0900, Until Discontinu ed, Routine lisinopriL 0 Yes 20mg 20 mg, Unive rs (PRINIVIL,Z 04-05 Oral, ity of ESTRIL) 14:00: DAILY, [place] tablet 20 00 First dose Medi purvi mg on [facility] 04/05/23 at 0900, Until Discontinu ed isosorbide 0 Yes 30mg 30 mg, Unive rs mononitrate 04-05 Oral, ity of (IMDUR) 24 14:00: DAILY, [place] hr tablet 00 First dose Medi purvi 30 mg on [facility] 04/05/23 at 0900, Until Discontinu ed, Routine furosemide 2023-0 Yes 40mg 40 mg, Unive rs (LASIX) 04-05 Oral, ity of tablet 40 14:00: DAILY, [place] mg 00 First dose Medical on [facility] 04/05/23 at 0900, Until Discontinu ed, Routine ezetimibe Yes 10mg 10 mg, Univer s (ZETIA) 04-05 Oral, ity of tablet 10 14:00: DAILY, [place] mg 00 First dose Medical on [facility] 04/05/23 at 0900, Until Discontinu ed, Routine clopidogreL 2022- No 75mg 75 mg, Uni vers (PLAVIX) 75 04-05 07-13 Oral, ity of mg tablet 14:00: 13:34 DAILY, [place] 75 mg 00 :28 First dose Medical on [facility] 04/05/23 at 0900, Until Discontinu ed, Routine carvediloL Yes 12.5mg 12.5 mg, U nivers (COREG) 04-05 Oral, BID ity of tablet 12.5 13:00: MEALS, [place] mg 00 First dose Medical on [facility] 04/05/23 at 0800, Until Discontinu ed, Routine artificial Yes 1[drp] 1 Drop, Un todd tears 04-05 Left Eye, ity of (hypromello 02:00: QHS, First [place] se) 00 dose on Medical (GENTEAL Sun04/04/23 Bran h TEARS at 2100, SEVERE GEL) Until 0.3 % Discontinu ophthalmic ed, gel 1 Drop Routine atorvastati Yes 80mg 80 mg, Univ ers n (LIPITOR) 04-05 Oral, QHS, it y of tablet 80 02:00: First dose [place] mg 00 on Sun [facility] 04/04/23 at Branch 2100, Until Discontinu ed, Routine Sliding 2022- No Subcutaneo Uni vers Scale 04-05 07-08 us, TID ity of Insulin - 02:00: 16:57 MEALS+HS, [place] Lispro 00 :48 First dose Medical (HumaLOG) on [facility] 04/04/23 at 2100, Until Discontinu ed, Routine artificial Yes 1[drp] 1 Drop, Un todd tears(hypro 04-05 Left Eye, ity of mellose) 01:07: PRN, Yesi (ISOPTO-TEA 04 Starting Medi purvi RS) 0.5 % on [facility] ophthalmic 04/04/23 at drops 1 2006, Drop Until Discontinu ed, Routine, Dry eyes methocarbam 2022-0 Yes 500mg 500 mg, Un todd oL 7-06 Oral, QID, ity of (ROBAXIN) 01:00: First dose [place] tablet 500 00 on Sun Medical mg 04/04/23 at [place] 1999, Until Discontinu ed, Routine gabapentin 2022-0 Yes 300mg 300 mg, Uni vers (NEURONTIN) 04-05 Oral, TID, it y of capsule 300 01:00: First dose [place] mg 00 on [facility] Medical 04/04/23 at [place] 1999, Until Discontinu ed, Routine dexAMETHaso 2022-0 2023- No 3[drp] 3 Drop, Univers ne 04-05 07-13 Left Ear, ity of (MAXIDEX) 01:00: 22:18 BID, First [place] 0.1 % 00 :14 dose on Medical ophthalmic [facility] 04/04/23 Bra nch suspension at 1999, drops 3 Until Drop Discontinu ed acetaminoph 2022-0 Yes 650mg 650 mg, Un todd en 04-05 Oral, Q6H, ity of (TYLENOL) 00:30: First dose [place] tablet 650 00 on [facility] Medical mg 04/04/23 at [place] 1930, Until Discontinu ed, Routine Lidocaine 2022-0 Yes 1{patch 1 Patch, U nivers (LIDOCARE) 04-05 } Topical, ity o f 4 % patch 1 00:16: Administer Yesi Patch 19 over 12 Medical Hours, [place] QDAILYPRN, Starting on Sun04/04/23 at 1916, Until Discontinu ed, Routine, Localized pain dextrose 2022-0 Yes 250mL 250 mL, IV Un todd 10% (D10W) 04-05 Infusion, ity of bolus 00:13: PRN - SEE Yesi infusion 14 INSTRUCTIO Medic al 250 mL , [place] Administer over 60 Minutes, Other, If blood glucose is < or = 70 mg/dL and patient is unable to swallow or has mental status changes, Starting on Sun04/04/23 at 1912
If blood glucose is < or = 70 mg/dL and patient is unable to swallow or has mental status changes (Give glucagon order if patient needs fluid restrictio n): IF IV access available: Dextrose 10%. 1. 125 mL (? bag) of D10W IV infusion - equivalent to 12.5 g dextrose 2. Blood glucose - draw blood glucose 15 minutes after D10W Administra tion. 3. If blood glucose is < 80 mg/dL, repeat.
ondansetron 0 Yes 4mg 4 mg, Slow Univers (ZOFRAN 04-05 IV Push, ity of (PF)) 00:12: Q6HPRN, [place] injection 4 41 Starting Medi purvi mg on Sun Branch 04/04/23 at 1911, Until Discontinu ed, Routine, Nausea and Vomiting (N/V) naloxone Yes .1mg 0.1 mg, Univer s (NARCAN) 04-05 Slow IV ity of injection 00:12: Push, PRN [place] as 0.1 mg 34 - SEE Medical INSTRUCTIO Branch NS, Starting on Sun04/04/23 at 1911, Until Discontinu ed, Routine, Sedation/R espiratory Depression , See admin instructio ns. morpHINE (2 2022- No 2mg 2 mg, Slow Univers mg/mL) 04-0507 IV Push, ity of injection 2 00:12: 11:43 Q3HPRN, [place] mg 34 :28 Starting Medical on Sun Branch 04/04/23 at 191, Until Sun04/06/23 at 0643, Routine, Pain (scale 7-10) HYDROcodone 2022-0 202- No 1{tbl} 1 tablet, Univers -acetaminop 04-0507 Oral, ity of hen (NORCO 00:12: 11:27 Q6HPRN, [place] as 5) 5-325 mg 28 :31 Starting Medi purvi tablet 1 on Sun Branch tablet 04/04/23 at 1912, Until Sun04/06/23 at 0627, Routine, Pain (scale 4-6) meclizine 0 Yes 25mg 25 mg, Univer s (TRAVEL-EAS 04-05 Oral, ity of E 00:08: TIDPRNYesi (MECLIZINE) 29 Starting Medi purvi ) tablet 25 on Sun Branch mg 04/04/23 at 1908, Until Discontinu ed, Routine, Dizziness diclofenac 0 Yes 75mg 75 mg, Unive rs (VOLTAREN) 7-06 Oral, ity of EC tablet 00:06: TIDPRN [place] 75 mg 51 MEALS, Medical Starting Branch on Sun04/04/23 at 1906, Until Discontinu ed, Pain
Fa culty member approving Restricted medication : EDGAR VALLE metFORMIN 0 Yes 1000mg Take 1,000 Univers 1,000 mg 7-05 mg by ity of tablet 19:15: mouth 2 [place] [address] (two) Medical times [place] daily with meals. glimepiride 0 Yes 4mg Take 4 mg U nivers 4 mg tablet 7-05 by mouth 2 it y of 19:15: (two) [place] 10 times Medical daily. Branch UBIDECAR/FI Yes Take by Uni vers SH 7-05 mouth. ity of OIL/OMEGA-3 19:15: [place] /OSMIN (CO 10 Medical [id number] Branch OIL-OMEGA 3-E ORAL) liraglutide Yes 1.8mg inject 1.8 Univers (VICTOZA 7-05 mg under ity of 3-АЛЕКСАНДР SC) 19:15: the skin [place] 10 daily. Medical Branch tamsulosin Yes Take by Univ ers 0.4 mg 24 7-05 mouth ity of hr capsule 19:15: daily. [address] Branch multivitami Yes 1{tbl} Take 1 Un todd n tablet 7-05 tablet by ity of 19:15: mouth [place] 10 daily. Medical Branch CALCIUM-MAG Yes Take by Uni vers NESIUM-ZINC 7-05 mouth ity of ORAL 19:15: daily. [place] [address] Medical Branch metFORMIN Yes 1000mg Take 1,000 Univers 1,000 mg 7-05 mg by ity of tablet 19:15: mouth 2 [place] 10 (two) Medical times [place] daily with meals. glimepiride 2022-0 Yes 4mg Take 4 mg U nivers 4 mg tablet 7-05 by mouth 2 it y of 19:15: (two) [place] 10 times Medical daily. Branch UBIDECAR/FI Yes Take by Uni vers SH 7-05 mouth. ity of OIL/OMEGA-3 19:15: [place] /OSMIN (CO 10 Medical [id number] Branch OIL-OMEGA 3-E ORAL) liraglutide Yes 1.8mg inject 1.8 Univers (VICTOZA 7-05 mg under ity of 3-АЛЕКСАНДР SC) 19:15: [place] 10 daily. Medical Branch tamsulosin Yes Take by Univ ers 0.4 mg 24 7-05 mouth ity of hr capsule 19:15: daily. [address] Branch multivitami Yes 1{tbl} Take 1 Un todd n tablet 05 tablet by ity of 19:15: mouth [place] 10 daily. Medical Branch CALCIUM-MAG Yes Take by Uni vers NESIUM-ZINC 7-05 mouth ity of ORAL 19:15: daily. [address] Branch Lidocaine 2022- No 1{patch 1 Patch, Univers (LIDOCARE) 03-30 } Topical, ity of 4 % patch 1 10:30: 22:29 Administer [place] Patch 00 :00 over 12 Medical Hours, Branch ONCE, 1 dose, On Sun03/30/23 at 0530, Routine traMADoL 2022- No 50mg 50 mg, Univer s (ULTRAM) 03-30 Oral, ity of tablet 50 10:15: 09:25 ONCE, 1 [place] mg 00 :00 dose, On Medical Fri Branch 03/30/23 at 0515, Routine ondansetron 2022- No 4mg 4 mg, Slow Univers (ZOFRAN 03-30 IV Push, ity of (PF)) 05:45: 05:35 ONCE, 1 [place] injection 4 00 :00 dose, On Medi purvi mg Sun Branch 03/30/23 at 0045, NITA morpHINE (4 2022- No 4mg 4 mg, Slow Univers mg/mL) 03-3030 IV Push, ity of injection 4 05:45: 05:35 ONCE, 1 [place] mg 00 :00 dose, On Medical Fri Branch 6/30/23 at 0045, STAT metFORMIN 2023-0 Yes 1000mg Take 1,000 Univers 1,000 mg 6-30 mg by ity of tablet 04:52: mouth 2 [place] [address] (two) Medical times [place] daily with meals. glimepiride 3-0 Yes 4mg Take 4 mg U nivers 4 mg tablet 6-30 by mouth 2 it y of 04:52: (two) [place] [address] times Medical daily. Branch UBIDECAR/FI 2022-0 Yes Take by Uni vers SH 6-30 mouth. ity of OIL/OMEGA-3 04:52: [place] /OSMIN (CO 26 Medical [id number] Branch OIL-OMEGA 3-E ORAL) liraglutide 2022-0 Yes 1.8mg inject 1.8 Univers (VICTOZA 6-30 mg under ity of 3-АЛЕКСАНДР SC) 04:52: the [place] 26 daily. Medical Branch tamsulosin 2022-0 Yes Take by Univ ers 0.4 mg 24 6-30 mouth ity of hr capsule 04:52: daily. [address] Branch multivitami 2022-0 Yes 1{tbl} Take 1 Un todd n tablet 6-30 tablet by ity of 04:52: mouth [place] [address] daily. Medical Branch CALCIUM-MAG 0 Yes Take by Uni vers NESIUM-ZINC 6-30 mouth ity of ORAL 04:52: daily. [address] metFORMIN 2022-0 Yes 1000mg Take 1,000 Univers 1,000 mg 6-30 mg by ity of tablet 04:52: mouth 2 [place] [address] (two) Medical times [place] daily with meals. glimepiride 3-0 Yes 4mg Take 4 mg U nivers 4 mg tablet 6-30 by mouth 2 it y of 04:52: (two) [place] [address] times Medical daily. Branch UBIDECAR/FI 2022-0 Yes Take by Uni vers SH 6-30 mouth. ity of OIL/OMEGA-3 04:52: [place] /OSMIN (CO 26 Medical [id number] Branch OIL-OMEGA 3-E ORAL) liraglutide 2022-0 Yes 1.8mg inject 1.8 Univers (VICTOZA 6-30 mg under ity of 3-АЛЕКСАНДР SC) 04:52: the [place] 26 daily. Medical Branch tamsulosin 2022-0 Yes Take by Univ ers 0.4 mg 24 6-30 mouth ity of hr capsule 04:52: daily. [place] [address] Medical Branch multivitami 0 Yes 1{tbl} Take 1 Un todd n tablet 6-30 tablet by ity of 04:52: mouth [place] 26 daily. Medical Branch CALCIUM-MAG 2022-0 Yes Take by Uni vers NESIUM-ZINC 6-30 mouth ity of ORAL 04:52: daily. [place] [address] Medical Branch metFORMIN 2022-0 Yes 1000mg Take 1,000 Univers 1,000 mg 6-30 mg by ity of tablet 04:52: mouth 2 [place] [address] (two) Medical times [place] daily with meals. glimepiride 2022-0 Yes 4mg Take 4 mg U nivers 4 mg tablet 6-30 by mouth 2 it y of 04:52: (two) [place] [address] times Medical daily. Branch UBIDECAR/FI 2022-0 Yes Take by Uni vers SH 6-30 mouth. ity of OIL/OMEGA-3 04:52: [place] /OSMIN (SC 26 Medical [id number] Branch OIL-OMEGA 3-E ORAL) liraglutide 0 Yes 1.8mg inject 1.8 Univers (VICTOZA 6-30 mg under ity of 3-АЛЕКСАНДР SC) 04:52: the skin [place] 26 daily. Medical Branch tamsulosin 0 Yes Take by [facility] ers 0.4 mg 24 6-30 mouth ity of hr capsule 04:52: daily. [place] [address] Medical Branch multivitami 0 Yes 1{tbl} Take 1 Un todd n tablet 6-30 tablet by ity of 04:52: mouth [place] 26 daily. Medical Branch CALCIUM-MAG 2022-0 Yes Take by Uni vers NESIUM-ZINC 6-30 mouth ity of ORAL 04:52: daily. [place] [address] Medical Branch metFORMIN 2022-0 Yes 1000mg Take 1,000 Univers 1,000 mg 6-30 mg by ity of tablet 04:52: mouth 2 [place] [address] (two) Medical times [place] daily with meals. glimepiride 2022-0 Yes 4mg Take 4 mg U nivers 4 mg tablet 6-30 by mouth 2 it y of 04:52: (two) [place] [address] times Medical daily. Branch UBIDECAR/FI 2022-0 Yes Take by Uni vers SH 6-30 mouth. ity of OIL/OMEGA-3 04:52: [place] /OSMIN (SC 26 Medical [id number] Branch OIL-OMEGA 3-E ORAL) liraglutide 0 Yes 1.8mg inject 1.8 Univers (VICTOZA 6-30 mg under ity of 3-АЛЕКСАНДР SC) 04:52: the skin [place] 26 daily. Medical Branch tamsulosin 0 Yes Take by Univ ers 0.4 mg 24 6-30 mouth ity of hr capsule 04:52: daily. [place] [address] Medical Branch multivitami 0 Yes 1{tbl} Take 1 Un todd n tablet 6-30 tablet by ity of 04:52: mouth [place] 26 daily. Medical Branch CALCIUM-MAG 0 Yes Take by Uni vers NESIUM-ZINC 6-30 mouth ity of ORAL 04:52: daily. [place] [address] Medical Branch metFORMIN 0 Yes 1000mg Take 1,000 Univers 1,000 mg 6-30 mg by ity of tablet 04:52: mouth 2 [place] [address] (two) Medical times Branch daily with meals. glimepiride 0 Yes 4mg Take 4 mg U nivers 4 mg tablet 6-30 by mouth 2 it y of 04:52: (two) [place] [address] times Medical daily. Branch UBIDECAR/FI 0 Yes Take by Uni vers SH 6-30 mouth. ity of OIL/OMEGA-3 04:52: [place] /OSMIN (SC 26 [place] [id number] [place] OIL-OMEGA 3-E ORAL) liraglutide 0 Yes 1.8mg inject 1.8 Univers (VICTOZA 6-30 mg under ity of 3-АЛЕКСАНДР SC) 04:52: the skin [place] 26 daily. Medical Branch tamsulosin 0 Yes Take by [facility] ers 0.4 mg 24 6-30 mouth ity of hr capsule 04:52: daily. [place] [address] Medical Branch multivitami 0 Yes 1{tbl} Take 1 Un todd n tablet 6-30 tablet by ity of 04:52: mouth [place] 26 daily. Medical Branch CALCIUM-MAG 0 Yes Take by Uni vers NESIUM-ZINC 6-30 mouth ity of ORAL 04:52: daily. [place] [address] Medical Branch iopamidol 2022-0 2023- No [id number] 100mL 100 mL, Univers (ISOVUE 03-30 62634 Intravenou ity of 370-500 mL) 04:30: 04:30 s, ONCE, 1 [place] injection 00 :00 dose, On Medica l 100 mL [place] Branch 03/29/23 at 2330, Routine morpHINE (2 2022- No 6mg 6 mg, Slow Univers mg/mL) 03-30 IV Push, ity of injection 6 03:45: 02:50 ONCE, 1 [place] mg 00 :00 dose, On Medical [place] Branch 03/29/23 at 2245, STAT NaCl 0.9% 2022- No 1000mL at 999 Uni vers (NS) bolus 03-30 mL/hr, ity of infusion 03:15: 05:10 1,000 mL, [place] as 1,000 mL 00 :00 IV Medical Piggyback, Branch ONCE, 1 dose, On [place] 03/29/23 at 2215, STAT ondansetron 2022- No 4mg 4 mg, Slow Univers (ZOFRAN 03-30 IV Push, ity of (PF)) 02:45: 02:51 ONCE, 1 [place] injection 4 00 :00 dose, On Medi purvi mg [place] Branch 03/29/23 at 2145, NITA ampicillin- 2022- No 3g 3 g, IV Un todd sulbactam 03-30 Piggyback, ity of (UNASYN) 3 02:30: 04:08 ONCE, 1 [place] g in NaCl 00 :00 dose, On Medica l 0.9% (NS) [place] Branch 100 mL 03/29/23 at MINI-BAG 2130, Administer over 30 Minutes, 100 mL
Reas on for Anti-Infec tive: Empiric Therapy for Suspected Infection< br>Empiric Therapy Site: HEENT
D uration of therapy: 72 hours traMADoL 50 2022-0 2022- No 4647 50mg Take 1 Uni vers mg tablet 03-30-13 tablet by ity of 00:00: 00:00 mouth [place] 00 :00 every 6 Medical (six) Branch hours as needed for Pain (scale 7-10) for up to 5 days. Indication s: acute pain traMADoL 50 2022-0 2022- No 4647 50mg Take 1 Uni vers mg tablet 03-30- tablet by ity of 00:00: 04:59 mouth [place] 00 :00 every 6 Medical (six) Branch hours as needed for Pain (scale 7-10) for up to 5 days. Indication s: acute pain traMADoL 50 2022-0 2022- No 4647 50mg Take 1 Uni vers mg tablet 03-30- tablet by ity of 00:00: 04:59 mouth [place] 00 :00 every 6 Medical (six) Branch hours as needed for Pain (scale 7-10) for up to 5 days. Indication s: acute pain traMADoL 50 2022-0 2022- No 4647 50mg Take 1 Uni vers mg tablet 03-30- tablet by ity of 00:00: 04:59 mouth [place] 00 :00 every 6 Medical (six) Branch hours as needed for Pain (scale 7-10) for up to 5 days. Indication s: acute pain traMADoL 50 2022-0 2022- No 4647 50mg Take 1 Uni vers mg tablet 03-30- tablet by ity of 00:00: 04:59 mouth [place] 00 :00 every 6 Medical (six) Branch hours as needed for Pain (scale 7-10) for up to 5 days. Indication s: acute pain traMADoL 50 2022-0 2022- No 4647 50mg Take 1 Uni vers mg tablet 03-30- tablet by ity of 00:00: 04:59 mouth [place] 00 :00 every 6 Medical (six) Branch hours as needed for Pain (scale 7-10) for up to 5 days. Indication s: acute pain traMADoL 50 2022-0 2022- No 4647 50mg Take 1 Uni vers mg tablet 03-30- tablet by ity of 00:00: 04:59 mouth [place] 00 :00 every 6 Medical (six) Branch hours as needed for Pain (scale 7-10) for up to 5 days. Indication s: acute pain traMADoL 50 2022-0 2022- No 4647 50mg Take 1 Uni vers mg tablet 03-30- tablet by ity of 00:00: 04:59 mouth [place] 00 :00 every 6 Medical (six) Branch hours as needed for Pain (scale 7-10) for up to 5 days. Indication s: acute pain gabapentin 2023-0 Yes [id number] 300mg Take 1 Univers 300 mg 6-23 capsule by ity of capsule 00:00: mouth in [place] [address] the Medical morning [place] and 1 capsule at noon and 1 capsule in the evening. gabapentin 2023-0 Yes [id number] 300mg Take 1 Univers 300 mg 6-23 capsule by ity of capsule 00:00: mouth in [place] [address] the [facility] morning [place] and 1 capsule at noon and 1 capsule in the evening. valACYclovi 2023-0 Yes [id number] 1g Take 1 Univers r 1 gram 6-23 tablet by ity of tablet 00:00: mouth in [place] [address] the [facility] morning [place] and 1 tablet in the evening. methylPREDN 2023-0 Yes [id number] Take by Univers ISolone 4 6-23 mouth ity of mg tablets 00:00: SEE-INSTRU [place] 00 CTIONS. Medical follow Branch package directions gabapentin 2023-0 Yes [id number] 300mg Take 1 Univers 300 mg 6-23 capsule by ity of capsule 00:00: mouth in [address] morning [place] and 1 capsule at noon and 1 capsule in the evening. valACYclovi 2023-0 Yes [id number] 1g Take 1 Univers r 1 gram 6-23 tablet by ity of tablet 00:00: mouth in [address] morning [place] and 1 tablet in the evening. methylPREDN 2023-0 Yes [id number] Take by Univers ISolone 4 6-23 mouth ity of mg tablets 00:00: SEE-INSTRU [place] 00 CTIONS. Medical follow Branch package directions gabapentin 2023-0 Yes [id number] 300mg Take 1 Univers 300 mg 6-23 capsule by ity of capsule 00:00: mouth in [place] [address] the [facility] morning [place] and 1 capsule at noon and 1 capsule in the evening. valACYclovi 2023-0 Yes [id number] 1g Take 1 Univers r 1 gram 6-23 tablet by ity of tablet 00:00: mouth in [address] morning [place] and 1 tablet in the evening. methylPREDN 2023-0 Yes [id number] Take by Univers ISolone 4 6-23 mouth ity of mg tablets 00:00: SEE-INSTRU [place] 00 CTIONS. Medical follow Branch package directions gabapentin 2023-0 Yes [id number] 300mg Take 1 Univers 300 mg 6-23 capsule by ity of capsule 00:00: mouth in [place] [address] the Medical morning Branch and 1 capsule at noon and 1 capsule in the evening. valACYclovi 2023-0 Yes [id number] 1g Take 1 Univers r 1 gram 6-23 tablet by ity of tablet 00:00: mouth in [place] [address] the Medical morning Branch and 1 tablet in the evening. methylPREDN 2023-0 Yes [id number] Take by Univers ISolone 4 6-23 mouth ity of mg tablets 00:00: SEE-INSTRU [place] 00 CTIONS. Medical follow Branch package directions gabapentin 2023-0 Yes [id number] 300mg Take 1 Univers 300 mg 6-23 capsule by ity of capsule 00:00: mouth in [place] [address] the Medical morning Branch and 1 capsule at noon and 1 capsule in the evening. valACYclovi 2023-0 Yes [id number] 1g Take 1 Univers r 1 gram 6-23 tablet by ity of tablet 00:00: mouth in [place] [address] the Medical morning Branch and 1 tablet in the evening. methylPREDN 2023-0 Yes [id number] Take by Univers ISolone 4 6-23 mouth ity of mg tablets 00:00: SEE-INSTRU [place] 00 CTIONS. Medical follow Branch package directions gabapentin 2023-0 Yes [id number] 300mg Take 1 Univers 300 mg 6-23 capsule by ity of capsule 00:00: mouth in [place] [address] the Medical morning Branch and 1 capsule at noon and 1 capsule in the evening. valACYclovi 2023-0 Yes [id number] 1g Take 1 Univers r 1 gram 6-23 tablet by ity of tablet 00:00: mouth in [place] [address] the Medical morning Branch and 1 tablet in the evening. methylPREDN 2023-0 Yes [id number] Take by Univers ISolone 4 6-23 mouth ity of mg tablets 00:00: SEE-INSTRU [place] 00 CTIONS. Medical follow Branch package directions gabapentin 2023-0 Yes [id number] 300mg Take 1 Univers 300 mg 6-23 capsule by ity of capsule 00:00: mouth in [place] [address] the Medical morning Branch and 1 capsule at noon and 1 capsule in the evening. valACYclovi 2023-0 Yes [id number] 1g Take 1 Univers r 1 gram 6-23 tablet by ity of tablet 00:00: mouth in [place] 00 the Medical morning Branch and 1 tablet in the evening. methylPREDN 2023-0 Yes [id number] Take by Univers ISolone 4 6-23 mouth ity of mg tablets 00:00: SEE-INSTRU [place] 00 CTIONS. Medical follow Branch package directions gabapentin 2023-0 Yes [id number] 300mg Take 1 Univers 300 mg 6-23 capsule by ity of capsule 00:00: mouth in [place] [address] the Medical morning Branch and 1 capsule at noon and 1 capsule in the evening. valACYclovi 2023-0 Yes [id number] 1g Take 1 [facility] r 1 gram 6-23 tablet by [facility] of tablet 00:00: mouth in [place] [address] the Medical morning Branch and 1 tablet in the evening. methylPREDN 2023-0 Yes [id number] Take by [facility] ISolone 4 6-23 mouth ity of mg tablets 00:00: [place]INSTRU [place] 00 CTIONS. Medical follow Branch package directions gabapentin 2023-0 Yes [id number] 300mg Take 1 [facility] 300 mg 6-23 capsule by [facility] of capsule 00:00: mouth in [place] [address] the Medical morning Branch and 1 capsule at noon and 1 capsule in the evening. valACYclovi 2023-0 Yes [id number] 1g Take 1 [facility] r 1 gram 6-23 tablet by ity of tablet 00:00: mouth in [place] [address] the Medical morning Branch and 1 tablet in the evening. methylPREDN 2023-0 Yes [id number] Take by [facility] ISolone 4 6-23 mouth ity of mg tablets 00:00: [place]INSTRU [place] 00 CTIONS. Medical follow Branch package directions gabapentin 2023-0 Yes [id number] 300mg Take 1 [facility] 300 mg 6-23 capsule by [facility] of capsule 00:00: mouth in [place] [address] the Medical morning Branch and 1 capsule at noon and 1 capsule in the evening. valACYclovi 2023-0 Yes [id number] 1g Take 1 [facility] r 1 gram 6-23 tablet by ity of tablet 00:00: mouth in [place] [address] the Medical morning Branch and 1 tablet in the evening. methylPREDN 2023-0 Yes [id number] Take by [facility] ISolone 4 6-23 mouth ity of mg tablets 00:00: [place]INSTRU [place] 00 CTIONS. Medical follow Branch package directions gabapentin 2022- No [id number] 300mg Take 1 [facility] 300 mg 03-23 capsule by [facility] of capsule 00:00: 00:00 mouth in [place] 00 :00 the Medical morning Branch and 1 capsule at noon and 1 capsule in the evening. valACYclovi 2022- No [id number] 1g Take 1 [facility] r 1 gram 03-23 tablet by ity o f tablet 00:00: 00:00 mouth in [place] 00 :00 the Medical morning Branch and 1 tablet in the evening. methylPREDN 2022- No [id number] Take by [facility] ISolone 4 03-23 mouth ity of mg tablets 00:00: 00:00 SEE-INSTRU [place] 00 :00 CTIONS. Medical follow Branch package directions HYDROcodone 2022- No 4647 1{tbl} Take 1 [facility] n[facility] -acetaminop 6-20 06-28 tablet by it y of hen 5-325 00:00: 04:59 mouth [place] mg tablet 00 :00 every 6 Medical (six) Branch hours as needed for Pain (scale 7-10) for up to 7 days. Indication s: acute [place]DROcodone [place] 4647 1{tbl} Take 1 [facility] nivers -acetaminop 6-20 06-28 tablet by it y of hen 5-325 00:00: 04:59 mouth [place] mg tablet 00 :00 every 6 Medical (six) Branch hours as needed for Pain (scale 7-10) for up to 7 days. Indication s: acute pain HYDROcodone No 4647 1{tbl} Take 1 [facility] nivers -acetaminop 6-20 06-28 tablet by it y of hen 5-325 00:00: 04:59 mouth [place] mg tablet 00 :00 every 6 Medical (six) Branch hours as needed for Pain (scale 7-10) for up to 7 days. Indication s: acute pain HYDROcodone 2022- No 4647 1{tbl} Take 1 [facility] nivers -acetaminop 6-20 06-28 tablet by it y of hen 5-325 00:00: 04:59 mouth [place] mg tablet 00 :00 every 6 Medical (six) Branch hours as needed for Pain (scale 7-10) for up to 7 days. Indication s: acute pain HYDROcodone 2022-2022- No 4647 1{tbl} Take 1 U nivers -acetaminop 6-20 06-28 tablet by it y of hen 5-325 00:00: 04:59 mouth [place] mg tablet 00 :00 every 6 Medical (six) Branch hours as needed for Pain (scale 7-10) for up to 7 days. Indication s: acute pain HYDROcodone 2022-2022- No 4647 1{tbl} Take 1 U nivers -acetaminop 6-20 06-28 tablet by it y of hen 5-325 00:00: 04:59 mouth [place] mg tablet 00 :00 every 6 Medical (six) Branch hours as needed for Pain (scale 7-10) for up to 7 days. Indication s: acute pain methylPREDN 2022-0 Yes [id number] Take by [facility] ISolone 4 6-12 mouth ity of mg tablets 00:00: [place]INSTRU [place] 00 CTIONS. Medical follow Branch package directions gabapentin 2022-0 Yes [id number] 100mg Take 1 [facility] 100 mg 6-12 capsule by ity of capsule 00:00: mouth in [place] 00 the Medical morning Branch and 1 capsule at noon and 1 capsule in the evening. methylPREDN 2023-0 Yes [id number] Take by [facility] ISolone 4 6-12 mouth ity of mg tablets 00:00: SEE-INSTRU [place] 00 CTIONS. Medical follow Branch package directions gabapentin 2023-0 Yes [id number] 100mg Take 1 [facility] 100 mg 6-12 capsule by ity of capsule 00:00: mouth in [place] 00 the Medical morning Branch and 1 capsule at noon and 1 capsule in the evening. methylPREDN 2023-0 Yes [id number] Take by [facility] ISolone 4 6-12 mouth ity of mg tablets 00:00: SEE-INSTRU [place] 00 CTIONS. Medical follow Branch package directions valACYclovi 2022-0 2022- No [id number] 1g Take 1 [facility] r 1 gram 6-12 06-27 tablet by ity o f tablet 00:00: 04:59 mouth in [place] 00 :00 the Medical morning Branch and 1 tablet in the evening. Do all this for 14 days. valACYclovi 2022- No [id number] 1g Take 1 [facility] r 1 gram 03-12 tablet by ity o f tablet 00:00: 04:59 mouth in [place] 00 :00 the Medical morning Branch and 1 tablet in the evening. Do all this for 14 days. valACYclovi 2022-2022- No [id number] 1g Take 1 [facility] r 1 gram 03-12 tablet by ity o f tablet 00:00: 04:59 mouth in [place] 00 :00 the Medical morning Branch and 1 tablet in the evening. Do all this for 14 days. valACYclovi 2022-0 2022- No [id number] 1g Take 1 [facility] r 1 gram 03-12 tablet by ity o f tablet 00:00: 00:00 mouth in [place] 00 :00 the [facility] morning Branch and 1 tablet in the evening. Do all this for 14 days. methylPREDN 2022- No [id number] [facility] mg tablets 00:00: 00:00 SEE-INSTRU [place] 00 :00 CTIONS. Medical follow Branch package directions gabapentin 2022-2022- No [id number] 100mg Take 1 [facility] 100 mg 03-12 capsule by ity of capsule 00:00: 00:00 mouth in [place] 00 :00 the [facility] morning Branch and 1 capsule at noon and 1 capsule in the evening. valACYclovi 2022- No [id number] 1g Take 1 [facility] r 1 gram 03-12 tablet by ity o f tablet 00:00: 00:00 mouth in [place] 00 :00 the [facility] morning Branch and 1 tablet in the evening. Do all this for 14 days. methylPREDN 2022-2022- No [id number] Take by [facility] ISolone 4 03-12 mouth ity of mg tablets 00:00: 00:00 SEE-INSTRU [place] 00 :00 CTIONS. Medical follow Branch package directions gabapentin 2022-0 2022- No [id number] 100mg Take 1 [facility] 100 mg 03-12 capsule by ity of capsule 00:00: 00:00 mouth in [place] 00 :00 the Medical morning Branch and 1 capsule at noon and 1 capsule in the evening. valACYclovi 2022-0 2022- No [id number] 1g Take 1 [facility] r 1 gram 03-12 tablet by ity o f tablet 00:00: 00:00 mouth in [place] 00 :00 the Medical morning Branch and 1 tablet in the evening. Do all this for 14 days. methylPREDN 2022-0 2022- No [id number] Take by [facility] ISolone 4 03-12 mouth ity of mg tablets 00:00: 00:00 SEE-INSTRU [place] 00 :00 CTIONS. Medical follow Branch package directions gabapentin 2022-0 2022- No [id number] 100mg Take 1 [facility] 100 mg 03-12 capsule by ity of capsule 00:00: 00:00 mouth in [place] 00 :00 the Medical morning Branch and 1 capsule at noon and 1 capsule in the evening. valACYclovi 2022-0 2022- No [id number] 1g Take 1 [facility] r 1 gram 03-12 tablet by ity o f tablet 00:00: 00:00 mouth in [place] 00 :00 the Medical morning Branch and 1 tablet in the evening. Do all this for 14 days. methylPREDN 2022-0 2022- No [id number] Take by [facility] ISolone 4 03-12 mouth ity of mg tablets 00:00: 00:00 SEE-INSTRU [place] 00 :00 CTIONS. Medical follow Branch package directions gabapentin 2022-0 2022- No [id number] 100mg Take 1 [facility] 100 mg 03-12 capsule by ity of capsule 00:00: 00:00 mouth in [place] 00 :00 the Medical morning Branch and 1 capsule at noon and 1 capsule in the evening. SITagliptin 2022-0 2023- No 100mg Take 100 [facility] (JANUVIA) 6-07 06-07 mg by ity of 100 mg 08:40: 00:00 mouth [place] tablet 48 :00 daily. Medical Branch SITagliptin 3-0 2023- No 100mg Take 100 [facility] (JANUVIA) 6-07 06-07 mg by ity of 100 mg 08:40: 00:00 mouth [place] tablet 48 :00 daily. Medical Branch carvediloL 2022-0 Yes [id number] 12.5mg Take 1 [facility] 12.5 mg 6-07 tablet by ity of tablet 00:00: mouth in [place] the Medical morning Branch and 1 tablet in the evening. Take with meals. lisinopriL 2023-0 Yes [id number] 20mg Take 0.5 [facility] 40 mg 6-07 tablets by ity of tablet 00:00: mouth in [place] the morning. Branch carvediloL 2023-0 Yes [id number] 12.5mg Take 1 [facility] 12.5 mg 6-07 tablet by ity of tablet 00:00: mouth in [place] [address] the Medical morning Branch and 1 tablet in the evening. Take with meals. lisinopriL 2023-0 Yes [id number] 20mg Take 0.5 [facility] 40 mg 6-07 tablets by ity of tablet 00:00: mouth in [place] the morning. Branch carvediloL 2023-0 Yes [id number] 12.5mg Take 1 [facility] 12.5 mg 6-07 tablet by ity of tablet 00:00: mouth in [place] [address] the morning Branch and 1 tablet in the evening. Take with meals. lisinopriL 2023-0 Yes [id number] 20mg Take 0.5 [facility] 40 mg 6-07 tablets by ity of tablet 00:00: mouth in [place] the morning. Branch carvediloL 2023-0 Yes [id number] 12.5mg Take 1 [facility] 12.5 mg 6-07 tablet by ity of tablet 00:00: mouth in [place] [address] the morning Branch and 1 tablet in the evening. Take with meals. lisinopriL 2023-0 Yes [id number] 20mg Take 0.5 [facility] 40 mg 6-07 tablets by ity of tablet 00:00: mouth in [place] the morning. Branch carvediloL 2023-0 Yes [id number] 12.5mg Take 1 [facility] 12.5 mg 6-07 tablet by ity of tablet 00:00: mouth in [place] [address] the morning Branch and 1 tablet in the evening. Take with meals. lisinopriL 2023-0 Yes [id number] 20mg Take 0.5 [facility] 40 mg 6-07 tablets by ity of tablet 00:00: mouth in [place] [address] the Medical morning. Branch carvediloL 2023-0 Yes [id number] 12.5mg Take 1 [facility] 12.5 mg 6-07 tablet by ity of tablet 00:00: mouth in [place] the Medical morning Branch and 1 tablet in the evening. Take with meals. lisinopriL 2023-0 Yes [id number] 20mg Take 0.5 [facility] 40 mg 6-07 tablets by ity of tablet 00:00: mouth in [place] the morning. Branch carvediloL 2023-0 Yes [id number] 12.5mg Take 1 [facility] 12.5 mg 6-07 tablet by ity of tablet 00:00: mouth in [place] [address] the Medical morning Branch and 1 tablet in the evening. Take with meals. lisinopriL 2023-0 Yes [id number] 20mg Take 0.5 [facility] 40 mg 6-07 tablets by ity of tablet 00:00: mouth in [place] the morning. Branch carvediloL 2023-0 Yes [id number] 12.5mg Take 1 [facility] 12.5 mg 6-07 tablet by ity of tablet 00:00: mouth in [place] [address] the morning Branch and 1 tablet in the evening. Take with meals. lisinopriL 2023-0 Yes [id number] 20mg Take 0.5 [facility] 40 mg 6-07 tablets by ity of tablet 00:00: mouth in [place] the morning. Branch carvediloL 2023-0 Yes [id number] 12.5mg Take 1 [facility] 12.5 mg 6-07 tablet by ity of tablet 00:00: mouth in [place] [address] the morning Branch and 1 tablet in the evening. Take with meals. lisinopriL 2023-0 Yes [id number] 20mg Take 0.5 [facility] 40 mg 6-07 tablets by ity of tablet 00:00: mouth in [place] the morning. Branch carvediloL 2023-0 Yes [id number] 12.5mg Take 1 [facility] 12.5 mg 6-07 tablet by ity of tablet 00:00: mouth in [place] [address] the morning Branch and 1 tablet in the evening. Take with meals. lisinopriL 2023-0 Yes [id number] 20mg Take 0.5 [facility] 40 mg 6-07 tablets by ity of tablet 00:00: mouth in [place] [address] the Medical morning. Branch carvediloL 2023-0 Yes [id number] 12.5mg Take 1 [facility] 12.5 mg 6-07 tablet by ity of tablet 00:00: mouth in [place] the Medical morning Branch and 1 tablet in the evening. Take with meals. lisinopriL 2023-0 Yes [id number] 20mg Take 0.5 [facility] 40 mg 6-07 tablets by ity of tablet 00:00: mouth in [place] the morning. Branch carvediloL 2023-0 Yes [id number] 12.5mg Take 1 [facility] 12.5 mg 6-07 tablet by ity of tablet 00:00: mouth in [place] [address] the Medical morning Branch and 1 tablet in the evening. Take with meals. lisinopriL 2023-0 Yes [id number] 20mg Take 0.5 [facility] 40 mg 6-07 tablets by ity of tablet 00:00: mouth in [place] the morning. Branch carvediloL 2023-0 Yes [id number] 12.5mg Take 1 [facility] 12.5 mg 6-07 tablet by ity of tablet 00:00: mouth in [place] [address] the morning Branch and 1 tablet in the evening. Take with meals. lisinopriL 2023-0 Yes [id number] 20mg Take 0.5 [facility] 40 mg 6-07 tablets by ity of tablet 00:00: mouth in [place] the morning. Branch carvediloL 2023-0 Yes [id number] 12.5mg Take 1 [facility] 12.5 mg 6-07 tablet by ity of tablet 00:00: mouth in [place] [address] the morning Branch and 1 tablet in the evening. Take with meals. lisinopriL 2023-0 Yes [id number] 20mg Take 0.5 [facility] 40 mg 6-07 tablets by ity of tablet 00:00: mouth in [place] the morning. Branch carvediloL 2023-0 Yes [id number] 12.5mg Take 1 [facility] 12.5 mg 6-07 tablet by ity of tablet 00:00: mouth in [place] [address] the morning Branch and 1 tablet in the evening. Take with meals. lisinopriL 2023-0 Yes [id number] 20mg Take 0.5 [facility] 40 mg 6-07 tablets by ity of tablet 00:00: mouth in [place] [address] the Medical morning. Branch carvediloL 2023-0 Yes [id number] 12.5mg Take 1 [facility] 12.5 mg 6-07 tablet by ity of tablet 00:00: mouth in [place] the Medical morning Branch and 1 tablet in the evening. Take with meals. lisinopriL 2023-0 Yes [id number] 20mg Take 0.5 [facility] 40 mg 6-07 tablets by ity of tablet 00:00: mouth in [place] the morning. Branch carvediloL 2023-0 Yes [id number] 12.5mg Take 1 [facility] 12.5 mg 6-07 tablet by ity of tablet 00:00: mouth in [place] [address] the Medical morning Branch and 1 tablet in the evening. Take with meals. lisinopriL 2023-0 Yes [id number] 20mg Take 0.5 [facility] 40 mg 6-07 tablets by ity of tablet 00:00: mouth in [place] the morning. Branch carvediloL 2023-0 Yes [id number] 12.5mg Take 1 [facility] 12.5 mg 6-07 tablet by ity of tablet 00:00: mouth in [place] [address] the morning Branch and 1 tablet in the evening. Take with meals. lisinopriL 2023-0 Yes [id number] 20mg Take 0.5 [facility] 40 mg 6-07 tablets by ity of tablet 00:00: mouth in [place] the morning. Branch carvediloL 2023-0 Yes [id number] 12.5mg Take 1 [facility] 12.5 mg 6-07 tablet by ity of tablet 00:00: mouth in [place] [address] the morning Branch and 1 tablet in the evening. Take with meals. lisinopriL 2023-0 Yes [id number] 20mg Take 0.5 [facility] 40 mg 6-07 tablets by ity of tablet 00:00: mouth in [place] the morning. Branch carvediloL 2023-0 Yes [id number] 12.5mg Take 1 [facility] 12.5 mg 6-07 tablet by ity of tablet 00:00: mouth in [place] [address] the morning Branch and 1 tablet in the evening. Take with meals. lisinopriL 2023-0 Yes [id number] 20mg Take 0.5 [facility] 40 mg 6-07 tablets by ity of tablet 00:00: mouth in [place] [address] the Medical morning. Branch carvediloL 2023-0 Yes [id number] 12.5mg Take 1 [facility] 12.5 mg 6-07 tablet by ity of tablet 00:00: mouth in [place] the Medical morning Branch and 1 tablet in the evening. Take with meals. lisinopriL 2023-0 Yes [id number] 20mg Take 0.5 [facility] 40 mg 6-07 tablets by ity of tablet 00:00: mouth in [place] the morning. Branch carvediloL 2023-0 Yes [id number] 12.5mg Take 1 [facility] 12.5 mg 6-07 tablet by ity of tablet 00:00: mouth in [place] [address] the Medical morning Branch and 1 tablet in the evening. Take with meals. lisinopriL 2023-0 Yes [id number] 20mg Take 0.5 [facility] 40 mg 6-07 tablets by ity of tablet 00:00: mouth in [place] the morning. Branch carvediloL 2023-0 Yes [id number] 12.5mg Take 1 [facility] 12.5 mg 6-07 tablet by ity of tablet 00:00: mouth in [place] [address] the morning Branch and 1 tablet in the evening. Take with meals. lisinopriL 2023-0 Yes [id number] 20mg Take 0.5 [facility] 40 mg 6-07 tablets by ity of tablet 00:00: mouth in [place] the morning. Branch carvediloL 2023-0 Yes [id number] 12.5mg Take 1 [facility] 12.5 mg 6-07 tablet by ity of tablet 00:00: mouth in [place] [address] the morning Branch and 1 tablet in the evening. Take with meals. lisinopriL 2023-0 Yes [id number] 20mg Take 0.5 [facility] 40 mg 6-07 tablets by ity of tablet 00:00: mouth in [place] the morning. Branch carvediloL 2023-0 Yes [id number] 12.5mg Take 1 [facility] 12.5 mg 6-07 tablet by ity of tablet 00:00: mouth in [place] [address] the morning Branch and 1 tablet in the evening. Take with meals. lisinopriL 2023-0 Yes [id number] 20mg Take 0.5 [facility] 40 mg 6-07 tablets by ity of tablet 00:00: mouth in [place] [address] the Medical morning. Branch carvediloL 2023-0 Yes [id number] 12.5mg Take 1 [facility] 12.5 mg 6-07 tablet by ity of tablet 00:00: mouth in [place] the Medical morning Branch and 1 tablet in the evening. Take with meals. lisinopriL 2023-0 Yes [id number] 20mg Take 0.5 [facility] 40 mg 6-07 tablets by ity of tablet 00:00: mouth in [place] the morning. Branch carvediloL 2023-0 Yes [id number] 12.5mg Take 1 [facility] 12.5 mg 6-07 tablet by ity of tablet 00:00: mouth in [place] [address] the Medical morning Branch and 1 tablet in the evening. Take with meals. lisinopriL 2023-0 Yes [id number] 20mg Take 0.5 [facility] 40 mg 6-07 tablets by ity of tablet 00:00: mouth in [place] the morning. Branch carvediloL 2023-0 Yes [id number] 12.5mg Take 1 [facility] 12.5 mg 6-07 tablet by ity of tablet 00:00: mouth in [place] [address] the morning Branch and 1 tablet in the evening. Take with meals. lisinopriL 2023-0 Yes [id number] 20mg Take 0.5 [facility] 40 mg 6-07 tablets by ity of tablet 00:00: mouth in [place] the morning. Branch carvediloL 2023-0 Yes [id number] 12.5mg Take 1 [facility] 12.5 mg 6-07 tablet by ity of tablet 00:00: mouth in [place] [address] the morning Branch and 1 tablet in the evening. Take with meals. lisinopriL 2023-0 Yes [id number] 20mg Take 0.5 [facility] 40 mg 6-07 tablets by ity of tablet 00:00: mouth in [place] the morning. Branch carvediloL 2023-0 Yes [id number] 12.5mg Take 1 [facility] 12.5 mg 6-07 tablet by ity of tablet 00:00: mouth in [place] [address] the morning Branch and 1 tablet in the evening. Take with meals. lisinopriL 2023-0 Yes [id number] 20mg Take 0.5 [facility] 40 mg 6-07 tablets by ity of tablet 00:00: mouth in [place] [address] the Medical morning. Branch carvediloL 2023-0 Yes [id number] 12.5mg Take 1 [facility] 12.5 mg 6-07 tablet by ity of tablet 00:00: mouth in [place] the Medical morning Branch and 1 tablet in the evening. Take with meals. lisinopriL 2023-0 Yes [id number] 20mg Take 0.5 [facility] 40 mg 6-07 tablets by ity of tablet 00:00: mouth in [place] the morning. Branch carvediloL 2023-0 Yes [id number] 12.5mg Take 1 [facility] 12.5 mg 6-07 tablet by ity of tablet 00:00: mouth in [place] [address] the Medical morning Branch and 1 tablet in the evening. Take with meals. lisinopriL 2023-0 Yes [id number] 20mg Take 0.5 [facility] 40 mg 6-07 tablets by ity of tablet 00:00: mouth in [place] the morning. Branch carvediloL 2023-0 Yes [id number] 12.5mg Take 1 [facility] 12.5 mg 6-07 tablet by ity of tablet 00:00: mouth in [place] [address] the morning Branch and 1 tablet in the evening. Take with meals. lisinopriL 2023-0 Yes [id number] 20mg Take 0.5 [facility] 40 mg 6-07 tablets by ity of tablet 00:00: mouth in [place] the morning. Branch carvediloL 2023-0 Yes [id number] 12.5mg Take 1 [facility] 12.5 mg 6-07 tablet by ity of tablet 00:00: mouth in [place] [address] the morning Branch and 1 tablet in the evening. Take with meals. lisinopriL 2023-0 Yes [id number] 20mg Take 0.5 [facility] 40 mg 6-07 tablets by ity of tablet 00:00: mouth in [place] the morning. Branch carvediloL 2023-0 Yes [id number] 12.5mg Take 1 [facility] 12.5 mg 6-07 tablet by ity of tablet 00:00: mouth in [place] [address] the morning Branch and 1 tablet in the evening. Take with meals. lisinopriL 2023-0 Yes [id number] 20mg Take 0.5 [facility] 40 mg 6-07 tablets by ity of tablet 00:00: mouth in [place] [address] the Medical morning. Branch carvediloL 2023-0 Yes [id number] 12.5mg Take 1 [facility] 12.5 mg 6-07 tablet by ity of tablet 00:00: mouth in [place] the Medical morning Branch and 1 tablet in the evening. Take with meals. lisinopriL 2023-0 Yes [id number] 20mg Take 0.5 [facility] 40 mg 6-07 tablets by ity of tablet 00:00: mouth in [place] the morning. Branch carvediloL 2023-0 Yes [id number] 12.5mg Take 1 [facility] 12.5 mg 6-07 tablet by ity of tablet 00:00: mouth in [place] [address] the Medical morning Branch and 1 tablet in the evening. Take with meals. lisinopriL 2023-0 Yes [id number] 20mg Take 0.5 [facility] 40 mg 6-07 tablets by ity of tablet 00:00: mouth in [place] the morning. Branch carvediloL 2023-0 Yes [id number] 12.5mg Take 1 [facility] 12.5 mg 6-07 tablet by ity of tablet 00:00: mouth in [place] [address] the morning Branch and 1 tablet in the evening. Take with meals. lisinopriL 2023-0 Yes [id number] 20mg Take 0.5 [facility] 40 mg 6-07 tablets by ity of tablet 00:00: mouth in [place] the morning. Branch carvediloL 2023-0 Yes [id number] 12.5mg Take 1 [facility] 12.5 mg 6-07 tablet by ity of tablet 00:00: mouth in [place] [address] the morning Branch and 1 tablet in the evening. Take with meals. lisinopriL 2023-0 Yes [id number] 20mg Take 0.5 [facility] 40 mg 6-07 tablets by ity of tablet 00:00: mouth in [place] the morning. Branch carvediloL 2023-0 Yes [id number] 12.5mg Take 1 [facility] 12.5 mg 6-07 tablet by ity of tablet 00:00: mouth in [place] [address] the morning Branch and 1 tablet in the evening. Take with meals. lisinopriL 2023-0 Yes [id number] 20mg Take 0.5 [facility] 40 mg 6-07 tablets by ity of tablet 00:00: mouth in [place] [address] the Medical morning. Branch carvediloL 2023-0 Yes [id number] 12.5mg Take 1 [facility] 12.5 mg 6-07 tablet by ity of tablet 00:00: mouth in [place] the Medical morning Branch and 1 tablet in the evening. Take with meals. lisinopriL 2023-0 Yes [id number] 20mg Take 0.5 [facility] 40 mg 6-07 tablets by ity of tablet 00:00: mouth in [place] the morning. Branch carvediloL 2023-0 Yes [id number] 12.5mg Take 1 [facility] 12.5 mg 6-07 tablet by ity of tablet 00:00: mouth in [place] [address] the Medical morning Branch and 1 tablet in the evening. Take with meals. lisinopriL 2023-0 Yes [id number] 20mg Take 0.5 [facility] 40 mg 6-07 tablets by ity of tablet 00:00: mouth in [place] the morning. Branch carvediloL 2023-0 Yes [id number] 12.5mg Take 1 [facility] 12.5 mg 6-07 tablet by ity of tablet 00:00: mouth in [place] [address] the morning Branch and 1 tablet in the evening. Take with meals. lisinopriL 2023-0 Yes [id number] 20mg Take 0.5 [facility] 40 mg 6-07 tablets by ity of tablet 00:00: mouth in [place] the morning. Branch carvediloL 2023-0 Yes [id number] 12.5mg Take 1 [facility] 12.5 mg 6-07 tablet by ity of tablet 00:00: mouth in [place] [address] the morning Branch and 1 tablet in the evening. Take with meals. lisinopriL 2023-0 Yes [id number] 20mg Take 0.5 [facility] 40 mg 6-07 tablets by ity of tablet 00:00: mouth in [place] the morning. Branch carvediloL 2023-0 Yes [id number] 12.5mg Take 1 [facility] 12.5 mg 6-07 tablet by ity of tablet 00:00: mouth in [place] [address] the morning Branch and 1 tablet in the evening. Take with meals. lisinopriL 2023-0 Yes [id number] 20mg Take 0.5 [facility] 40 mg 6-07 tablets by ity of tablet 00:00: mouth in [place] [address] the Medical morning. Branch carvediloL 2023-0 Yes [id number] 12.5mg Take 1 [facility] 12.5 mg 6-07 tablet by ity of tablet 00:00: mouth in [place] the Medical morning Branch and 1 tablet in the evening. Take with meals. lisinopriL 2023-0 Yes [id number] 20mg Take 0.5 [facility] 40 mg 6-07 tablets by ity of tablet 00:00: mouth in [place] the morning. Branch carvediloL 2023-0 Yes [id number] 12.5mg Take 1 [facility] 12.5 mg 6-07 tablet by ity of tablet 00:00: mouth in [place] [address] the Medical morning Branch and 1 tablet in the evening. Take with meals. lisinopriL 2023-0 Yes [id number] 20mg Take 0.5 [facility] 40 mg 6-07 tablets by ity of tablet 00:00: mouth in [place] the morning. Branch carvediloL 2023-0 Yes [id number] 12.5mg Take 1 [facility] 12.5 mg 6-07 tablet by ity of tablet 00:00: mouth in [place] [address] the morning Branch and 1 tablet in the evening. Take with meals. lisinopriL 2023-0 Yes [id number] 20mg Take 0.5 [facility] 40 mg 6-07 tablets by ity of tablet 00:00: mouth in [place] the morning. Branch carvediloL 2023-0 Yes [id number] 12.5mg Take 1 [facility] 12.5 mg 6-07 tablet by ity of tablet 00:00: mouth in [place] [address] the morning Branch and 1 tablet in the evening. Take with meals. lisinopriL 2023-0 Yes [id number] 20mg Take 0.5 [facility] 40 mg 6-07 tablets by ity of tablet 00:00: mouth in [place] the morning. Branch carvediloL 2023-0 Yes [id number] 12.5mg Take 1 [facility] 12.5 mg 6-07 tablet by [facility] of tablet 00:00: mouth in [place] [address] the morning Branch and 1 tablet in the evening. Take with meals. lisinopriL 2023-0 Yes [id number] 20mg Take 0.5 [facility] 40 mg 6-07 tablets by [facility] of tablet 00:00: mouth in [place] [address] the Medical morning. Branch carvediloL 2023-0 Yes [id number] 12.5mg Take 1 [facility] 12.5 mg 6-07 tablet by [facility] of tablet 00:00: mouth in [place] the Medical morning Branch and 1 tablet in the evening. Take with meals. lisinopriL 2023-0 Yes [id number] 20mg Take 0.5 [facility] 40 mg 6-07 tablets by [facility] of tablet 00:00: mouth in [place] the morning. Branch carvediloL 2023-0 Yes [id number] 12.5mg Take 1 [facility] 12.5 mg 6-07 tablet by [facility] of tablet 00:00: mouth in [place] [address] the Medical morning Branch and 1 tablet in the evening. Take with meals. lisinopriL 2023-0 Yes [id number] 20mg Take 0.5 [facility] 40 mg 6-07 tablets by [facility] of tablet 00:00: mouth in [place] the morning. Branch carvediloL 2023-0 Yes [id number] 12.5mg Take 1 [facility] 12.5 mg 6-07 tablet by [facility] of tablet 00:00: mouth in [place] [address] the morning Branch and 1 tablet in the evening. Take with meals. lisinopriL 2023-0 Yes [id number] 20mg Take 0.5 [facility] 40 mg 6-07 tablets by [facility] of tablet 00:00: mouth in [place] the morning. Branch carvediloL 2023-0 Yes [id number] 12.5mg Take 1 [facility] 12.5 mg 6-07 tablet by [facility] of tablet 00:00: mouth in [place] [address] the morning Branch and 1 tablet in the evening. Take with meals. lisinopriL 2023-0 Yes [id number] 20mg Take 0.5 [facility] 40 mg 6-07 tablets by [facility] of tablet 00:00: mouth in [place] the morning. Branch carvediloL 2023-0 Yes [id number] 12.5mg Take 1 [facility] 12.5 mg 6-07 tablet by [facility] of tablet 00:00: mouth in [place] [address] the morning Branch and 1 tablet in the evening. Take with meals. lisinopriL 2023-0 Yes [id number] 20mg Take 0.5 [facility] 40 mg 6-07 tablets by [facility] of tablet 00:00: mouth in [place] [address] the Medical morning. Branch carvediloL 2023-0 Yes [id number] 12.5mg Take 1 [facility] 12.5 mg 6-07 tablet by [facility] of tablet 00:00: mouth in [place] the Medical morning Branch and 1 tablet in the evening. Take with meals. lisinopriL 2023-0 Yes [id number] 20mg Take 0.5 [facility] 40 mg 6-07 tablets by [facility] of tablet 00:00: mouth in [place] the morning. Branch carvediloL 2023-0 Yes [id number] 12.5mg Take 1 [facility] 12.5 mg 6-07 tablet by [facility] of tablet 00:00: mouth in [place] [address] the Medical morning Branch and 1 tablet in the evening. Take with meals. lisinopriL 2023-0 Yes [id number] 20mg Take 0.5 [facility] 40 mg 6-07 tablets by [facility] of tablet 00:00: mouth in [place] the morning. Branch carvediloL 2023-0 Yes [id number] 12.5mg Take 1 [facility] 12.5 mg 6-07 tablet by [facility] of tablet 00:00: mouth in [place] [address] the morning Branch and 1 tablet in the evening. Take with meals. lisinopriL 2023-0 Yes [id number] 20mg Take 0.5 [facility] 40 mg 6-07 tablets by [facility] of tablet 00:00: mouth in [place] the morning. Branch carvediloL 2023-0 Yes [id number] 12.5mg Take 1 [facility] 12.5 mg 6-07 tablet by [facility] of tablet 00:00: mouth in [place] [address] the morning Branch and 1 tablet in the evening. Take with meals. lisinopriL 2023-0 Yes [id number] 20mg Take 0.5 [facility] 40 mg 6-07 tablets by [facility] of tablet 00:00: mouth in [place] the morning. Branch carvediloL 2023-0 Yes [id number] 12.5mg Take 1 [facility] 12.5 mg 6-07 tablet by [facility] of tablet 00:00: mouth in [place] [address] the morning Branch and 1 tablet in the evening. Take with meals. lisinopriL 2023-0 Yes [id number] 20mg Take 0.5 [facility] 40 mg 6-07 tablets by [facility] of tablet 00:00: mouth in [place] [address] the Medical morning. Branch carvediloL 2023-0 Yes [id number] 12.5mg Take 1 [facility] 12.5 mg 6-07 tablet by [facility] of tablet 00:00: mouth in [place] the Medical morning Branch and 1 tablet in the evening. Take with meals. lisinopriL 2023-0 Yes [id number] 20mg Take 0.5 [facility] 40 mg 6-07 tablets by [facility] of tablet 00:00: mouth in [place] the morning. Branch carvediloL 2023-0 Yes [id number] 12.5mg Take 1 [facility] 12.5 mg 6-07 tablet by [facility] of tablet 00:00: mouth in [place] [address] the Medical morning Branch and 1 tablet in the evening. Take with meals. lisinopriL 2023-0 Yes [id number] 20mg Take 0.5 [facility] 40 mg 6-07 tablets by [facility] of tablet 00:00: mouth in [place] the morning. Branch carvediloL 2023-0 Yes [id number] 12.5mg Take 1 [facility] 12.5 mg 6-07 tablet by [facility] of tablet 00:00: mouth in [place] [address] the morning Branch and 1 tablet in the evening. Take with meals. lisinopriL 2023-0 Yes [id number] 20mg Take 0.5 [facility] 40 mg 6-07 tablets by [facility] of tablet 00:00: mouth in [place] the morning. Branch carvediloL 2023-0 Yes [id number] 12.5mg Take 1 [facility] 12.5 mg 6-07 tablet by [facility] of tablet 00:00: mouth in [place] [address] the morning Branch and 1 tablet in the evening. Take with meals. lisinopriL 2023-0 Yes [id number] 20mg Take 0.5 [facility] 40 mg 6-07 tablets by [facility] of tablet 00:00: mouth in [place] the morning. Branch carvediloL 2023-0 Yes [id number] 12.5mg Take 1 [facility] 12.5 mg 6-07 tablet by it[facility] of tablet 00:00: mouth in [place] [address] the morning Branch and 1 tablet in the evening. Take with meals. lisinopriL 2023-0 Yes [id number] 20mg Take 0.5 [facility] 40 mg 6-07 tablets by [facility] of tablet 00:00: mouth in [place] [address] the Medical morning. Branch carvediloL 2023-0 Yes [id number] 12.5mg Take 1 [facility] 12.5 mg 6-07 tablet by it[facility] of tablet 00:00: mouth in [place] [address] the [facility] morning [place] and 1 tablet in the evening. Take with meals. lisinopriL 2023-0 Yes [id number] 20mg Take 0.5 [facility] 40 mg 6-07 tablets by it[facility] of tablet 00:00: mouth in [place] [address] the [facility] morning. Branch carvediloL 2023-0 Yes [id number] 12.5mg Take 1 [facility] 12.5 mg 6-07 tablet by ity of tablet 00:00: mouth in [place] [address] the [facility] and 1 tablet in the evening. Take with meals. lisinopriL 2023-0 Yes [id number] 20mg Take 0.5 [facility] 40 mg 6-07 tablets by ity of tablet 00:00: mouth in [place] [address] the [facility] morning. Branch carvediloL 2023-0 Yes [id number] 12.5mg Take 1 [facility] 12.5 mg 6-07 tablet by ity of tablet 00:00: mouth in [address] and 1 tablet in the evening. Take with meals. carvediloL 2023-0 Yes [id number] 12.5mg Take 1 [facility] 12.5 mg 6-07 tablet by it[facility] of tablet 00:00: mouth in [address] and 1 tablet in the evening. Take with meals. carvediloL 2023-0 Yes [id number] 12.5mg Take 1 [facility] 12.5 mg 6-07 tablet by it[facility] of tablet 00:00: mouth in [address] and 1 tablet in the evening. Take with meals. carvediloL 2023-0 Yes [id number] 12.5mg Take 1 [facility] 12.5 mg 6-07 tablet by it[facility] of tablet 00:00: mouth in [address] and 1 tablet in the evening. Take with meals. carvediloL 2023-0 Yes [id number] 12.5mg Take 1 [facility] 12.5 mg 6-07 tablet by it[facility] of tablet 00:00: mouth in [address] and 1 tablet in the evening. Take with meals. carvediloL 2023-0 Yes [id number] 12.5mg Take 1 [facility] 12.5 mg 6-07 tablet by it[facility] of tablet 00:00: mouth in [place] 00 the Medical morning Branch and 1 tablet in the evening. Take with meals. lisinopriL 2022-0 2022- No [id number] 20mg Take 0.5 [facility] 40 mg 03-07 tablets by it[facility] of tablet 00:00: 00:00 mouth in [place] 00 :00 the Medical morning. Branch lisinopriL 2022-0 3- No [id number] 20mg Take 0.5 [facility] 40 mg 03-07 tablets by it[facility] of tablet 00:00: 00:00 mouth in [place] 00 :00 the Medical morning. Branch iopamidol 2022-0 2022- No [id number] 100mL 100 mL, [facility] (ISOVUE 02-28 Intravenou ity o f 370-500 mL) 22:15: 22:15 s, ONCE, 1 [place] injection 00 :00 dose, On Medica l 100 mL Wed Branch 02/28/23 at 1715, Routine NaCl 0.9% 0 2022- No 1000mL at 999 Uni vers (NS) bolus 02-28 mL/hr, ity of infusion 21:15: 23:25 1,000 mL, [place] as 1,000 mL 00 :00 IV Medical Infusion, Branch ONCE, 1 dose, On 02/28/23 at 1615, NITA gabapentin 3-0 Yes [id number] 100mg Take 1 [facility] 100 mg 5-26 capsule by it[facility] of capsule 00:00: mouth in [address] and 1 capsule at noon and 1 capsule in the evening. gabapentin 2023-0 Yes [id number] 100mg Take 1 [facility] 100 mg 5-26 capsule by ity of capsule 00:00: mouth in [address] and 1 capsule at noon and 1 capsule in the evening. gabapentin 2023-0 Yes [id number] 100mg Take 1 [facility] 100 mg 5-26 capsule by ity of capsule 00:00: mouth in [address] and 1 capsule at noon and 1 capsule in the evening. gabapentin 2023-0 Yes [id number] 100mg Take 1 [facility] 100 mg 5-26 capsule by ity of capsule 00:00: mouth in [address] and 1 capsule at noon and 1 capsule in the evening. gabapentin 2023-0 Yes [id number] 100mg Take 1 [facility] 100 mg 5-26 capsule by ity of capsule 00:00: mouth in [place] 00 the Medical morning Branch and 1 capsule at noon and 1 capsule in the evening. gabapentin 2023-0 Yes [id number] 100mg Take 1 [facility] 100 mg 5-26 capsule by ity of capsule 00:00: mouth in [place] 00 the Medical morning Branch and 1 capsule at noon and 1 capsule in the evening. gabapentin 2023-0 Yes [id number] 100mg Take 1 [facility] 100 mg 5-26 capsule by ity of capsule 00:00: mouth in [place] [address] the Medical morning Branch and 1 capsule at noon and 1 capsule in the evening. gabapentin 2023-0 Yes [id number] 100mg Take 1 [facility] 100 mg 5-26 capsule by ity of capsule 00:00: mouth in [place] [address] the Medical morning Branch and 1 capsule at noon and 1 capsule in the evening. gabapentin 2023-0 Yes [id number] 100mg Take 1 [facility] 100 mg 5-26 capsule by ity of capsule 00:00: mouth in [place] [address] the [facility] morning [place] and 1 capsule at noon and 1 capsule in the evening. gabapentin 2023-0 2023- No [id number] 100mg Take 1 [facility] 100 mg 5-26 06-23 capsule by ity of capsule 00:00: 00:00 mouth in [place] 00 :00 the Medical morning Branch and 1 capsule at noon and 1 capsule in the evening. gabapentin 2023-0 2023- No [id number] 100mg Take 1 [facility] 100 mg 5-26 06-23 capsule by ity of capsule 00:00: 00:00 mouth in [place] 00 :00 the Medical morning [place] and 1 capsule at noon and 1 capsule in the evening. gabapentin 2023-0 2023- No [id number] 100mg Take 1 [facility] 100 mg 5-26 06-23 capsule by ity of capsule 00:00: 00:00 mouth in [place] 00 :00 the Medical morning Branch and 1 capsule at noon and 1 capsule in the evening. gabapentin 2023-0 2023- No [id number] 100mg Take 1 [facility] 100 mg 5-26 06-23 capsule by ity of capsule 00:00: 00:00 mouth in [place] 00 :00 the Medical morning Branch and 1 capsule at noon and 1 capsule in the evening. diclofenac 2023-0 Yes [id number] 50mg Take 1 [facility] 50 mg 5-22 [id number] tablet by ity of tablet 00:00: mouth 3 (three) Medical times Branch daily as needed for Pain (scale 7-10). diclofenac 2023-0 Yes [id number] 50mg Take 1 [facility] 50 mg 5-22 [id number] tablet by ity of tablet 00:00: mouth 3 (three) Medical times Branch daily as needed for Pain (scale 7-10). diclofenac 2023-0 Yes [id number] 50mg Take 1 [facility] 50 mg 5-22 [id number] tablet by ity of tablet 00:00: mouth 3 (three) Medical times Branch daily as needed for Pain (scale 7-10). diclofenac 2023-0 Yes [id number] 50mg Take 1 [facility] 50 mg 5-22 [id number] tablet by ity of tablet 00:00: mouth 3 (three) Medical times Branch daily as needed for Pain (scale 7-10). diclofenac 3-0 Yes [id number] 50mg Take 1 [facility] 50 mg 5-22 [id number] tablet by ity of tablet 00:00: mouth (three) Medical times Branch daily as needed for Pain (scale 7-10). diclofenac 3-0 Yes [id number] 50mg Take 1 [facility] 50 mg 5-22 [id number] tablet by ity of tablet 00:00: mouth (three) Medical times Branch daily as needed for Pain (scale 7-10). diclofenac 2023-0 Yes [id number] 50mg Take 1 [facility] 50 mg 5-22 [id number] tablet by ity of tablet 00:00: mouth (three) Medical times Branch daily as needed for Pain (scale 7-10). diclofenac 2023-0 Yes [id number] 50mg Take 1 [facility] 50 mg 5-22 [id number] tablet by ity of tablet 00:00: mouth 3 (three) Medical times Branch daily as needed for Pain (scale 7-10). diclofenac 2023-0 Yes [id number] 50mg Take 1 [facility] 50 mg 5-22 [id number] tablet by ity of tablet 00:00: mouth 3 (three) Medical times Branch daily as needed for Pain (scale 7-10). diclofenac 2023-0 Yes [id number] 50mg Take 1 [facility] 50 mg 5-22 [id number] tablet by ity of tablet 00:00: mouth (three) Medical times Branch daily as needed for Pain (scale 7-10). diclofenac 2023-0 Yes [id number] 50mg Take 1 [facility] 50 mg 5-22 [id number] tablet by ity of tablet 00:00: mouth (three) Medical times Branch daily as needed for Pain (scale 7-10). diclofenac 2023-0 Yes [id number] 50mg Take 1 [facility] 50 mg 5-22 [id number] tablet by ity of tablet 00:00: mouth (three) Medical times Branch daily as needed for Pain (scale 7-10). diclofenac 2023-0 Yes [id number] 50mg Take 1 [facility] 50 mg 5-22 [id number] tablet by ity of tablet 00:00: mouth (three) Medical times Branch daily as needed for Pain (scale 7-10). diclofenac 2023-0 Yes [id number] 50mg Take 1 [facility] 50 mg 5-22 [id number] tablet by ity of tablet 00:00: mouth (three) Medical times Branch daily as needed for Pain (scale 7-10). diclofenac 2023-0 Yes [id number] 50mg Take 1 [facility] 50 mg 5-22 [id number] tablet by ity of tablet 00:00: mouth (three) Medical times Branch daily as needed for Pain (scale 7-10). diclofenac 2023-0 Yes [id number] 50mg Take 1 [facility] 50 mg 5-22 [id number] tablet by ity of tablet 00:00: mouth (three) Medical times Branch daily as needed for Pain (scale 7-10). diclofenac 2023-0 Yes [id number] 50mg Take 1 [facility] 50 mg 5-22 [id number] tablet by ity of tablet 00:00: mouth (three) Medical times Branch daily as needed for Pain (scale 7-10). diclofenac 2023-0 Yes [id number] 50mg Take 1 [facility] 50 mg 5-22 [id number] tablet by ity of tablet 00:00: mouth (three) Medical times Branch daily as needed for Pain (scale 7-10). diclofenac 2023-0 Yes [id number] 50mg Take 1 [facility] 50 mg 5-22 [id number] tablet by ity of tablet 00:00: mouth (three) Medical times Branch daily as needed for Pain (scale 7-10). diclofenac 2023-0 Yes [id number] 50mg Take 1 [facility] 50 mg 5-22 [id number] tablet by ity of tablet 00:00: mouth (three) Medical times Branch daily as needed for Pain (scale 7-10). diclofenac 2023-0 Yes [id number] 50mg Take 1 [facility] 50 mg 5-22 [id number] tablet by ity of tablet 00:00: mouth (three) Medical times Branch daily as needed for Pain (scale 7-10). diclofenac 2023-0 Yes [id number] 50mg Take 1 [facility] 50 mg 5-22 [id number] tablet by ity of tablet 00:00: mouth (three) Medical times Branch daily as needed for Pain (scale 7-10). diclofenac 2023-0 Yes [id number] 50mg Take 1 [facility] 50 mg 5-22 [id number] tablet by ity of tablet 00:00: mouth (three) Medical times Branch daily as needed for Pain (scale 7-10). diclofenac 2023-0 Yes [id number] 50mg Take 1 [facility] 50 mg 5-22 [id number] tablet by ity of tablet 00:00: mouth (three) Medical times Branch daily as needed for Pain (scale 7-10). diclofenac 2023-0 Yes [id number] 50mg Take 1 [facility] 50 mg 5-22 [id number] tablet by ity of tablet 00:00: mouth (three) Medical times Branch daily as needed for Pain (scale 7-10). diclofenac 2023-0 Yes [id number] 50mg Take 1 [facility] 50 mg 5-22 [id number] tablet by ity of tablet 00:00: mouth (three) Medical times Branch daily as needed for Pain (scale 7-10). diclofenac 2023-0 Yes [id number] 50mg Take 1 [facility] 50 mg 5-22 [id number] tablet by ity of tablet 00:00: mouth (three) Medical times Branch daily as needed for Pain (scale 7-10). diclofenac 2023-0 Yes [id number] 50mg Take 1 [facility] 50 mg 5-22 [id number] tablet by ity of tablet 00:00: mouth 3 [place] 00 (three) Medical times Branch daily as needed for Pain (scale 7-10). diclofenac 2023-0 Yes [id number] 50mg Take 1 [facility] 50 mg 5-22 [id number] tablet by ity of tablet 00:00: mouth 3 (three) Medical times Branch daily as needed for Pain (scale 7-10). diclofenac 2023-0 Yes [id number] 50mg Take 1 [facility] 50 mg 5-22 [id number] tablet by ity of tablet 00:00: mouth 3 (three) Medical times Branch daily as needed for Pain (scale 7-10). diclofenac 3-0 Yes [id number] 50mg Take 1 [facility] 50 mg 5-22 [id number] tablet by ity of tablet 00:00: mouth 3 (three) Medical times Branch daily as needed for Pain (scale 7-10). diclofenac 3-0 Yes [id number] 50mg Take 1 [facility] 50 mg 5-22 [id number] tablet by ity of tablet 00:00: mouth 3 (three) Medical times Branch daily as needed for Pain (scale 7-10). diclofenac 3-0 Yes [id number] 50mg Take 1 [facility] 50 mg 5-22 [id number] tablet by ity of tablet 00:00: mouth (three) Medical times Branch daily as needed for Pain (scale 7-10). diclofenac 2023-0 Yes [id number] 50mg Take 1 [facility] 50 mg 5-22 [id number] tablet by ity of tablet 00:00: mouth 3 (three) Medical times Branch daily as needed for Pain (scale 7-10). diclofenac 2023-0 Yes [id number] 50mg Take 1 [facility] 50 mg 5-22 [id number] tablet by ity of tablet 00:00: mouth 3 (three) Medical times Branch daily as needed for Pain (scale 7-10). diclofenac 2023-0 Yes [id number] 50mg Take 1 [facility] 50 mg 5-22 [id number] tablet by ity of tablet 00:00: mouth 3 (three) Medical times Branch daily as needed for Pain (scale 7-10). diclofenac 2023-0 Yes [id number] 50mg Take 1 [facility] 50 mg 5-22 [id number] tablet by ity of tablet 00:00: mouth 3 (three) Medical times Branch daily as needed for Pain (scale 7-10). diclofenac 2023-0 Yes [id number] 50mg Take 1 [facility] 50 mg 5-22 [id number] tablet by ity of tablet 00:00: mouth 3 (three) Medical times Branch daily as needed for Pain (scale 7-10). diclofenac 2023-0 Yes [id number] 50mg Take 1 [facility] 50 mg 5-22 [id number] tablet by ity of tablet 00:00: mouth 3 (three) Medical times Branch daily as needed for Pain (scale 7-10). diclofenac 2023-0 Yes [id number] 50mg Take 1 [facility] 50 mg 5-22 [id number] tablet by ity of tablet 00:00: mouth 3 (three) Medical times Branch daily as needed for Pain (scale 7-10). diclofenac 2023-0 Yes [id number] 50mg Take 1 [facility] 50 mg 5-22 [id number] tablet by ity of tablet 00:00: mouth (three) Medical times Branch daily as needed for Pain (scale 7-10). diclofenac 2023-0 Yes [id number] 50mg Take 1 [facility] 50 mg 5-22 [id number] tablet by ity of tablet 00:00: mouth (three) Medical times Branch daily as needed for Pain (scale 7-10). diclofenac 2023-0 Yes [id number] 50mg Take 1 [facility] 50 mg 5-22 [id number] tablet by ity of tablet 00:00: mouth 3 (three) Medical times Branch daily as needed for Pain (scale 7-10). diclofenac 2023-0 Yes [id number] 50mg Take 1 [facility] 50 mg 5-22 [id number] tablet by ity of tablet 00:00: mouth 3 (three) Medical times Branch daily as needed for Pain (scale 7-10). diclofenac 2023-0 Yes [id number] 50mg Take 1 [facility] 50 mg 5-22 [id number] tablet by ity of tablet 00:00: mouth 3 (three) Medical times Branch daily as needed for Pain (scale 7-10). diclofenac 2023-0 Yes [id number] 50mg Take 1 [facility] 50 mg 5-22 [id number] tablet by ity of tablet 00:00: mouth 3 (three) Medical times Branch daily as needed for Pain (scale 7-10). diclofenac 2022-0 Yes [id number] 50mg Take 1 [facility] 50 mg 5-22 [id number] tablet by ity of tablet 00:00: mouth 3 [place] 00 (three) Medical times Branch daily as needed for Pain (scale 7-10). diclofenac 2022-0 Yes [id number] 50mg Take 1 [facility] 50 mg 5-22 [id number] tablet by ity of tablet 00:00: mouth 3 [place] 00 (three) Medical times Branch daily as needed for Pain (scale 7-10). diclofenac 2022-0 Yes [id number] 50mg Take 1 [facility] 50 mg 5-22 [id number] tablet by ity of tablet 00:00: mouth 3 00 (three) Medical times Branch daily as needed for Pain (scale 7-10). diclofenac 2022-0 Yes [id number] 50mg Take 1 [facility] 50 mg 5-22 [id number] tablet by ity of tablet 00:00: mouth 3 (three) Medical times Branch daily as needed for Pain (scale 7-10). diclofenac 2022-0 Yes [id number] 50mg Take 1 [facility] 50 mg 5-22 [id number] tablet by ity of tablet 00:00: mouth 3 (three) Medical times Branch daily as needed for Pain (scale 7-10). diclofenac 2022-0 Yes [id number] 50mg Take 1 [facility] 50 mg 5-22 [id number] tablet by ity of tablet 00:00: mouth 3 00 (three) Medical times Branch daily as needed for Pain (scale 7-10). diclofenac 2022-0 Yes [id number] 50mg Take 1 [facility] 50 mg 5-22 [id number] tablet by ity of tablet 00:00: mouth 3 00 (three) Medical times Branch daily as needed for Pain (scale 7-10). diclofenac 2022-0 Yes [id number] 50mg Take 1 [facility] 50 mg 5-22 [id number] tablet by ity of tablet 00:00: mouth 3 00 (three) Medical times Branch daily as needed for Pain (scale 7-10). diclofenac 2022-0 Yes [id number] 50mg Take 1 [facility] 50 mg 5-22 [id number] tablet by ity of tablet 00:00: mouth 3 00 (three) Medical times Branch daily as needed for Pain (scale 7-10). diclofenac 2023-0 Yes [id number] 50mg Take 1 [facility] 50 mg 5-22 [id number] tablet by ity of tablet 00:00: mouth 3 [place] 00 (three) Medical times Branch daily as needed for Pain (scale 7-10). diclofenac 3-0 Yes [id number] 50mg Take 1 [facility] 50 mg 5-22 [id number] tablet by ity of tablet 00:00: mouth 3 [place] 00 (three) Medical times Branch daily as needed for Pain (scale 7-10). diclofenac 3-0 Yes [id number] 50mg Take 1 [facility] 50 mg 5-22 [id number] tablet by ity of tablet 00:00: mouth 3 [place] 00 (three) Medical times Branch daily as needed for Pain (scale 7-10). diclofenac 2022-0 Yes [id number] 50mg Take 1 [facility] 50 mg 5-22 55023 tablet by ity of tablet 00:00: mouth 3 00 (three) Medical times Branch daily as needed for Pain (scale 7-10). diclofenac 3-0 Yes [id number] 50mg Take 1 [facility] 50 mg 5-22 [id number] tablet by ity of tablet 00:00: mouth 3 00 (three) Medical times Branch daily as needed for Pain (scale 7-10). diclofenac 3-0 Yes [id number] 50mg Take 1 [facility] 50 mg 5-22 [id number] tablet by ity of tablet 00:00: mouth 3 00 (three) Medical times Branch daily as needed for Pain (scale 7-10). diclofenac 3-0 Yes [id number] 50mg Take 1 [facility] 50 mg 5-22 [id number] tablet by ity of tablet 00:00: mouth 3 00 (three) Medical times Branch daily as needed for Pain (scale 7-10). diclofenac 2023-0 Yes [id number] 50mg Take 1 [facility] 50 mg 5-22 [id number] tablet by ity of tablet 00:00: mouth 3 [place] 00 (three) Medical times Branch daily as needed for Pain (scale 7-10). diclofenac 2023-0 Yes [id number] 50mg Take 1 [facility] 50 mg 5-22 [id number] tablet by ity of tablet 00:00: mouth 3 00 (three) Medical times Branch daily as needed for Pain (scale 7-10). diclofenac 2023-0 Yes [id number] 50mg Take 1 [facility] 50 mg 5-22 03514 tablet by ity of tablet 00:00: mouth 3 [place] 00 (three) Medical times Branch daily as needed for Pain (scale 7-10). diclofenac 2022-0 Yes [id number] 50mg Take 1 [facility] 50 mg 5-22 [id number] tablet by ity of tablet 00:00: mouth 3 [place] 00 (three) Medical times Branch daily as needed for Pain (scale 7-10). diclofenac 2022-0 Yes [id number] 50mg Take 1 [facility] 50 mg 5-22 [id number] tablet by ity of tablet 00:00: mouth 3 [place] 00 (three) Medical times Branch daily as needed for Pain (scale 7-10). diclofenac 2022-0 Yes [id number] 50mg Take 1 [facility] 50 mg 5-22 11049 tablet by ity of tablet 00:00: mouth 3 00 (three) Medical times Branch daily as needed for Pain (scale 7-10). diclofenac 2022-0 Yes [id number] 50mg Take 1 [facility] 50 mg 5-22 [id number] tablet by ity of tablet 00:00: mouth 3 00 (three) Medical times Branch daily as needed for Pain (scale 7-10). diclofenac 2022-0 Yes [id number] 50mg Take 1 [facility] 50 mg 5-22 [id number] tablet by ity of tablet 00:00: mouth 3 00 (three) Medical times Branch daily as needed for Pain (scale 7-10). diclofenac 2022-0 Yes [id number] 50mg Take 1 [facility] 50 mg 5-22 [id number] tablet by ity of tablet 00:00: mouth 3 00 (three) Medical times Branch daily as needed for Pain (scale 7-10). diclofenac 2022-0 Yes [id number] 50mg Take 1 [facility] 50 mg 5-22 [id number] tablet by ity of tablet 00:00: mouth 3 00 (three) Medical times Branch daily as needed for Pain (scale 7-10). diclofenac 3-0 Yes [id number] 50mg Take 1 [facility] 50 mg 5-22 33636 tablet by ity of tablet 00:00: mouth 3 00 (three) Medical times Branch daily as needed for Pain (scale 7-10). diclofenac 3-0 Yes [id number] 50mg Take 1 [facility] 50 mg 5-22 03135 tablet by ity of tablet 00:00: mouth 3 (three) Medical times Branch daily as needed for Pain (scale 7-10). diclofenac 2022-0 Yes [id number] 50mg Take 1 [facility] 50 mg 5-22 68631 tablet by ity of tablet 00:00: mouth 3 (three) Medical times Branch daily as needed for Pain (scale 7-10). diclofenac 2022-0 Yes [id number] 50mg Take 1 [facility] 50 mg 5-22 [id number] tablet by ity of tablet 00:00: mouth 3 00 (three) Medical times Branch daily as needed for Pain (scale 7-10). diclofenac 2022-0 Yes [id number] 50mg Take 1 [facility] 50 mg 5-22 [id number] tablet by ity of tablet 00:00: mouth 3 (three) Medical times Branch daily as needed for Pain (scale 7-10). diclofenac 2022-0 Yes [id number] 50mg Take 1 [facility] 50 mg 5-22 [id number] tablet by ity of tablet 00:00: mouth 3 (three) Medical times Branch daily as needed for Pain (scale 7-10). diclofenac 2022-0 Yes [id number] 50mg Take 1 [facility] 50 mg 5-22 [id number] tablet by ity of tablet 00:00: mouth 3 00 (three) Medical times Branch daily as needed for Pain (scale 7-10). diclofenac 2022-0 Yes [id number] 50mg Take 1 [facility] 50 mg 5-22 [id number] tablet by ity of tablet 00:00: mouth 3 (three) Medical times Branch daily as needed for Pain (scale 7-10). diclofenac 2022-0 Yes [id number] 50mg Take 1 [facility] 50 mg 5-22 [id number] tablet by ity of tablet 00:00: mouth 3 00 (three) Medical times Branch daily as needed for Pain (scale 7-10). valACYclovi 2022-0 2022- No [id number] 1g Take 1 Univers r 1 gram 5-22 06-06 tablet by ity o f tablet 00:00: 04:59 mouth in [place] 00 :00 the Medical morning Branch and 1 tablet in the evening. Do all this for 14 days. gabapentin 2022-2022- No [id number] 100mg Take 1 [facility] 100 mg 02-19- capsule by ity of capsule 00:00: 04:59 mouth in [place] 00 :00 the [facility] morning [place] and 1 capsule at noon and 1 capsule in the evening. Do all this for 14 days. valACYclovi 2022-2022- No [id number] 1g Take 1 Univers r 1 gram 02-19-06 tablet by ity o f tablet 00:00: 04:59 mouth in [place] 00 :00 the [facility] and 1 tablet in the evening. Do all this for 14 days. gabapentin 2022-2022- No [id number] 100mg Take 1 [facility] 100 mg 02-19- capsule by ity of capsule 00:00: 04:59 mouth in [place] 00 :00 the [facility] and 1 capsule at noon and 1 capsule in the evening. Do all this for 14 days. valACYclovi 2022-2022- No [id number] 1g Take 1 Univers r 1 gram 02-19- tablet by ity o f tablet 00:00: 04:59 mouth in [place] 00 :00 the [facility] and 1 tablet in the evening. Do all this for 14 days. gabapentin 2022-2022- No [id number] 100mg Take 1 [facility] 100 mg 02-19- capsule by ity of capsule 00:00: 04:59 mouth in [place] 00 :00 [facility] and 1 capsule at noon and 1 capsule in the evening. Do all this for 14 days. valACYclovi 2022-2022- No [id number] 1g Take 1 Univers r 1 gram 02-19-06 tablet by ity o f tablet 00:00: 04:59 mouth in [place] 00 :00 [facility] and 1 tablet in the evening. Do all this for 14 days. valACYclovi 2022-0 2022- No [id number] 1g Take 1 Univers r 1 gram 02-19-06 tablet by ity o f tablet 00:00: 04:59 mouth in [place] 00 :00 [facility] and 1 tablet in the evening. Do all this for 14 days. ciprofloxac 2022-2022- No [id number] 4[drp] Place 4 [facility] in-dexameth 02-19 Drops in ity of asone 00:00: 04:59 left ear [place] (CIPRODEX) 00 :00 in the Medical 0.3-0.1 % morning Branch otic drops and 4 Drops in the evening. Do all this for 10 days. ciprofloxac 2022- No [id number] 4[drp] Place 4 [facility] in-dexameth 5-22 06-02 Drops in ity of asone 00:00: 04:59 left ear [place] (CIPRODEX) 00 :00 in the Medical 0.3-0.1 % morning Branch otic drops and 4 Drops in the evening. Do all this for 10 days. ciprofloxac 2022- No [id number] 4[drp] Place 4 [facility] in-dexameth 5-22 06-02 Drops in ity of asone 00:00: 04:59 left ear [place] (CIPRODEX) 00 :00 in the Medical 0.3-0.1 % morning Branch otic drops and 4 Drops in the evening. Do all this for 10 days. ciprofloxac 2022- No [id number] 4[drp] Place 4 [facility] in-dexameth 5-22 06-02 Drops in ity of asone 00:00: 04:59 left ear [place] (CIPRODEX) 00 :00 in the Medical 0.3-0.1 % morning Branch otic drops and 4 Drops in the evening. Do all this for 10 days. ciprofloxac 2022- No [id number] 4[drp] Place 4 [facility] in-dexameth 5-22 06-02 Drops in ity of asone 00:00: 04:59 left ear [place] (CIPRODEX) 00 :00 in the Medical 0.3-0.1 % morning Branch otic drops and 4 Drops in the evening. Do all this for 10 days. gabapentin 2022-2022- No [id number] 100mg Take 1 [facility] 100 mg 02-19- capsule by ity of capsule 00:00: 00:00 mouth in [place] 00 :00 the Medical morning Branch and 1 capsule at noon and 1 capsule in the evening. Do all this for 14 days. iopamidol 2022- No [id number] 85mL 85 mL, Univers (ISOVUE 5-19 05-19 Intravenou ity o f 370-500 mL) 00:15: 00:15 s, ONCE, 1 [place] injection 00 :00 dose, On Medica l 85 mL [place] Branch 02/15/23 at 1915, Routine NaCl 0.9% 2022-0 202- No 500mL at 999 Univ ers (NS) bolus 5-19 05-19 mL/hr, 500 it y of infusion 00:00: 00:40 mL, IV [place] 500 mL 00 :00 Infusion, Medical ONCE, 1 Branch dose, On [place] 02/15/23 at 1900, STAT NaCl 0.9% 2022-0 2022- No 500mL at 999 Univ ers (NS) bolus 5-18 05-18 mL/hr, 500 it y of infusion 21:45: 22:56 mL, IV [place] 500 mL 00 :00 Infusion, Medical ONCE, 1 Branch dose, On [place] 02/15/23 at 1645, STAT meclizine 2022-0 2022- No 25mg 25 mg, Unive rs (TRAVEL-EAS 5- 05-18 Oral, ity of E 21:45: 21:50 ONCE, 1 [place] (MECLIZINE) 00 :00 dose, On Medi purvi ) tablet 25 [place] Branch mg 02/15/23 at 1645, NITA meclizine 2022-0 Yes [id number] 25mg Take 1 U nivers 25 mg 5-18 tablet by ity of tablet 00:00: mouth 3 [place] 00 (three) Medical times Branch daily as needed for Dizziness. meclizine 2022-0 Yes [id number] 25mg Take 1 U nivers 25 mg 5-18 tablet by ity of tablet 00:00: mouth 3 [place] 00 (three) Medical times Branch daily as needed for Dizziness. meclizine 2023-0 Yes [id number] 25mg Take 1 U nivers 25 mg 5-18 tablet by ity of tablet 00:00: mouth 3 [place] 00 (three) Medical times Branch daily as needed for Dizziness. meclizine 3-0 Yes [id number] 25mg Take 1 U nivers 25 mg 5-18 tablet by ity of tablet 00:00: mouth 3 [place] 00 (three) Medical times Branch daily as needed for Dizziness. meclizine 3-0 Yes [id number] 25mg Take 1 U nivers 25 mg 5-18 tablet by ity of tablet 00:00: mouth 3 (three) Medical times Branch daily as needed for Dizziness. meclizine 2022-0 Yes [id number] 25mg Take 1 U nivers 25 mg 5-18 tablet by ity of tablet 00:00: mouth 3 (three) Medical times Branch daily as needed for Dizziness. meclizine 2022-0 Yes [id number] 25mg Take 1 U nivers 25 mg 5-18 tablet by ity of tablet 00:00: mouth (three) Medical times Branch daily as needed for Dizziness. meclizine 2022-0 Yes [id number] 25mg Take 1 U nivers 25 mg 5-18 tablet by ity of tablet 00:00: mouth (three) Medical times Branch daily as needed for Dizziness. meclizine 2022-0 Yes [id number] 25mg Take 1 U nivers 25 mg 5-18 tablet by ity of tablet 00:00: mouth (three) Medical times Branch daily as needed for Dizziness. meclizine 0 Yes [id number] 25mg Take 1 U nivers 25 mg 5-18 tablet by ity of tablet 00:00: mouth (three) Medical times Branch daily as needed for Dizziness. meclizine 2022-0 Yes [id number] 25mg Take 1 U nivers 25 mg 5-18 tablet by ity of tablet 00:00: mouth (three) Medical times Branch daily as needed for Dizziness. meclizine 2022-0 Yes [id number] 25mg Take 1 U nivers 25 mg 5-18 tablet by ity of tablet 00:00: mouth (three) Medical times Branch daily as needed for Dizziness. meclizine 2022-0 Yes [id number] 25mg Take 1 U nivers 25 mg 5-18 tablet by ity of tablet 00:00: mouth (three) Medical times Branch daily as needed for Dizziness. meclizine 2022-0 Yes [id number] 25mg Take 1 U nivers 25 mg 5-18 tablet by ity of tablet 00:00: mouth (three) Medical times Branch daily as needed for Dizziness. meclizine 2023-0 Yes [id number] 25mg Take 1 U nivers 25 mg 5-18 tablet by ity of tablet 00:00: mouth (three) Medical times Branch daily as needed for Dizziness. meclizine 2022-0 Yes [id number] 25mg Take 1 U nivers 25 mg 5-18 tablet by ity of tablet 00:00: mouth 3 (three) Medical times Branch daily as needed for Dizziness. meclizine 2022-0 Yes [id number] 25mg Take 1 U nivers 25 mg 5-18 tablet by ity of tablet 00:00: mouth (three) Medical times Branch daily as needed for Dizziness. meclizine 2022-0 Yes [id number] 25mg Take 1 U nivers 25 mg 5-18 tablet by ity of tablet 00:00: mouth (three) Medical times Branch daily as needed for Dizziness. meclizine 2022-0 Yes [id number] 25mg Take 1 U nivers 25 mg 5-18 tablet by ity of tablet 00:00: mouth (three) Medical times Branch daily as needed for Dizziness. meclizine 2022-0 Yes [id number] 25mg Take 1 U nivers 25 mg 5-18 tablet by ity of tablet 00:00: mouth (three) Medical times Branch daily as needed for Dizziness. meclizine 2022-0 Yes [id number] 25mg Take 1 U nivers 25 mg 5-18 tablet by ity of tablet 00:00: mouth (three) Medical times Branch daily as needed for Dizziness. meclizine 2022-0 Yes [id number] 25mg Take 1 U nivers 25 mg 5-18 tablet by ity of tablet 00:00: mouth (three) Medical times Branch daily as needed for Dizziness. meclizine 3-0 Yes [id number] 25mg Take 1 U nivers 25 mg 5-18 tablet by ity of tablet 00:00: mouth 3 (three) Medical times Branch daily as needed for Dizziness. meclizine 2022-0 Yes [id number] 25mg Take 1 U nivers 25 mg 5-18 tablet by ity of tablet 00:00: mouth 3 [place] 00 (three) Medical times Branch daily as needed for Dizziness. meclizine 3-0 Yes [id number] 25mg Take 1 U nivers 25 mg 5-18 tablet by ity of tablet 00:00: mouth 3 00 (three) Medical times Branch daily as needed for Dizziness. meclizine 3-0 Yes [id number] 25mg Take 1 U nivers 25 mg 5-18 tablet by ity of tablet 00:00: mouth 3 (three) Medical times Branch daily as needed for Dizziness. meclizine 2022-0 Yes [id number] 25mg Take 1 U nivers 25 mg 5-18 tablet by ity of tablet 00:00: mouth 3 (three) Medical times Branch daily as needed for Dizziness. meclizine 2022-0 Yes [id number] 25mg Take 1 U nivers 25 mg 5-18 tablet by ity of tablet 00:00: mouth 3 (three) Medical times Branch daily as needed for Dizziness. meclizine 2022-0 Yes [id number] 25mg Take 1 U nivers 25 mg 5-18 tablet by ity of tablet 00:00: mouth 3 (three) Medical times Branch daily as needed for Dizziness. meclizine 2022-0 3- No [id number] 25mg Take 1 [facility] 25 mg 5-18 07-13 tablet by ity of tablet 00:00: 00:00 mouth 3 [place] 00 :00 (three) Medical times Branch daily as needed for Dizziness. meclizine 2022-0 2023- No [id number] 25mg Take 1 [facility] 25 mg 5-18 07-13 tablet by ity of tablet 00:00: 00:00 mouth 3 [place] 00 :00 (three) Medical times Branch daily as needed for Dizziness. dexamethaso 3-0 Yes INSTILL 3 U nivers ne 0.1 % 4-27 DROPS IN ity of ophthalmic 00:00: THE LEFT [place] solution 00 EAR TWICE Medica l DAILY Branch dexamethaso 3-0 Yes INSTILL 3 U nivers ne 0.1 % 4-27 DROPS IN ity of ophthalmic 00:00: THE LEFT [place] solution 00 EAR TWICE Medica l DAILY Branch dexamethaso 3-0 Yes INSTILL 3 U nivers ne 0.1 % 4-27 DROPS IN ity of ophthalmic 00:00: THE LEFT [place] solution 00 EAR TWICE Medica l DAILY Branch dexamethaso 2023-0 Yes INSTILL 3 U nivers ne 0.1 % 4-27 DROPS IN ity of ophthalmic 00:00: THE LEFT [place] solution 00 EAR TWICE Medica l DAILY Branch dexamethaso 2023-0 Yes INSTILL 3 U nivers ne 0.1 % 4-27 DROPS IN ity of ophthalmic 00:00: THE LEFT [place] solution 00 EAR TWICE Medica l DAILY Branch dexamethaso 2023-0 Yes INSTILL 3 U nivers ne 0.1 % 4-27 DROPS IN ity of ophthalmic 00:00: THE LEFT [place] solution 00 EAR TWICE Medica l DAILY Branch dexamethaso 2023-0 Yes INSTILL 3 U nivers ne 0.1 % 4-27 DROPS IN ity of ophthalmic 00:00: THE LEFT [place] solution 00 EAR TWICE Medica l DAILY Branch dexamethaso 2023-0 Yes INSTILL 3 U nivers ne 0.1 % 4-27 DROPS IN ity of ophthalmic 00:00: THE LEFT [place] solution 00 EAR TWICE Medica l DAILY Branch dexamethaso 2023-0 Yes INSTILL 3 U nivers ne 0.1 % 4-27 DROPS IN ity of ophthalmic 00:00: THE LEFT [place] solution 00 EAR TWICE Medica l DAILY Branch dexamethaso 2023-0 Yes INSTILL 3 U nivers ne 0.1 % 4-27 DROPS IN ity of ophthalmic 00:00: THE LEFT [place] solution 00 EAR TWICE Medica l DAILY Branch dexamethaso 2023-0 Yes INSTILL 3 U nivers ne 0.1 % 4-27 DROPS IN ity of ophthalmic 00:00: THE LEFT [place] solution 00 EAR TWICE Medica l DAILY Branch dexamethaso 2023-0 Yes INSTILL 3 U nivers ne 0.1 % 4-27 DROPS IN ity of ophthalmic 00:00: THE LEFT [place] solution 00 EAR TWICE Medica l DAILY Branch dexamethaso 2023-0 Yes INSTILL 3 U nivers ne 0.1 % 4-27 DROPS IN ity of ophthalmic 00:00: THE LEFT [place] solution 00 EAR TWICE Medica l DAILY Branch dexamethaso 2023-0 Yes INSTILL 3 U nivers ne 0.1 % 4-27 DROPS IN ity of ophthalmic 00:00: THE LEFT [place] solution 00 EAR TWICE Medica l DAILY Branch dexamethaso 2023-0 Yes INSTILL 3 U nivers ne 0.1 % 4-27 DROPS IN ity of ophthalmic 00:00: THE LEFT [place] solution 00 EAR TWICE Medica l DAILY Branch dexamethaso 2023-0 Yes INSTILL 3 U nivers ne 0.1 % 4-27 DROPS IN ity of ophthalmic 00:00: THE LEFT [place] solution 00 EAR TWICE Medica l DAILY Branch dexamethaso 2023-0 Yes INSTILL 3 U nivers ne 0.1 % 4-27 DROPS IN ity of ophthalmic 00:00: THE LEFT [place] solution 00 EAR TWICE Medica l DAILY Branch dexamethaso 2023-0 Yes INSTILL 3 U nivers ne 0.1 % 4-27 DROPS IN ity of ophthalmic 00:00: THE LEFT [place] solution 00 EAR TWICE Medica l DAILY Branch dexamethaso 2023-0 Yes INSTILL 3 U nivers ne 0.1 % 4-27 DROPS IN ity of ophthalmic 00:00: THE LEFT [place] solution 00 EAR TWICE Medica l DAILY Branch dexamethaso 2023-0 Yes INSTILL 3 U nivers ne 0.1 % 4-27 DROPS IN ity of ophthalmic 00:00: THE LEFT [place] solution 00 EAR TWICE Medica l DAILY Branch dexamethaso 2023-0 Yes INSTILL 3 U nivers ne 0.1 % 4-27 DROPS IN ity of ophthalmic 00:00: THE LEFT [place] solution 00 EAR TWICE Medica l DAILY Branch dexamethaso 2023-0 Yes INSTILL 3 U nivers ne 0.1 % 4-27 DROPS IN ity of ophthalmic 00:00: THE LEFT [place] solution 00 EAR TWICE Medica l DAILY Branch dexamethaso 2023-0 Yes INSTILL 3 U nivers ne 0.1 % 4-27 DROPS IN ity of ophthalmic 00:00: THE LEFT [place] solution 00 EAR TWICE Medica l DAILY Branch dexamethaso 2023-0 Yes INSTILL 3 U nivers ne 0.1 % 4-27 DROPS IN ity of ophthalmic 00:00: THE LEFT [place] solution 00 EAR TWICE Medica l DAILY Branch dexamethaso 2023-0 Yes INSTILL 3 U nivers ne 0.1 % 4-27 DROPS IN ity of ophthalmic 00:00: THE LEFT [place] solution 00 EAR TWICE Medica l DAILY Branch dexamethaso 3-0 Yes INSTILL 3 U nivers ne 0.1 % 4-27 DROPS IN ity of ophthalmic 00:00: THE LEFT [place] solution 00 EAR TWICE Medica l DAILY Branch dexamethaso 3-0 2023- No INSTILL 3 Univers ne 0.1 % 4-27 07-13 DROPS IN ity of ophthalmic 00:00: 00:00 THE LEFT [place] solution 00 :00 EAR TWICE Medica l DAILY Branch dexamethaso 3-0 2023- No INSTILL 3 Univers ne 0.1 % 4-27 07-13 DROPS IN ity of ophthalmic 00:00: 00:00 THE LEFT [place] solution 00 :00 EAR TWICE Medica l DAILY Branch cyclobenzap 2023-0 Yes TAKE 1 Univ ers rine 10 mg 4-25 TABLET BY ity of tablet 00:00: [facility] THREE Medical TIMES Branch DAILY FOR 7 DAYS NEEDED FOR PAIN cyclobenzap 2023-0 Yes TAKE 1 Univ ers rine 10 mg 4-25 TABLET BY ity of tablet 00:00: MOUTH THREE Medical TIMES Branch DAILY FOR 7 DAYS NEEDED FOR PAIN cyclobenzap 2023-0 Yes TAKE 1 Univ ers rine 10 mg 4-25 TABLET BY ity of tablet 00:00: MOUTH THREE Medical TIMES Branch DAILY FOR 7 DAYS NEEDED FOR PAIN cyclobenzap 2023-0 Yes TAKE 1 Univ ers rine 10 mg 4-25 TABLET BY ity of tablet 00:00: MOUTH THREE Medical TIMES Branch DAILY FOR 7 DAYS NEEDED FOR PAIN cyclobenzap 2023-0 Yes TAKE 1 Univ ers rine 10 mg 4-25 TABLET BY ity of tablet 00:00: MOUTH THREE Medical TIMES Branch DAILY FOR 7 DAYS NEEDED FOR PAIN cyclobenzap 2023-0 Yes TAKE 1 Univ ers rine 10 mg 4-25 TABLET BY ity of tablet 00:00: MOUTH THREE Medical TIMES Branch DAILY FOR 7 DAYS NEEDED FOR PAIN cyclobenzap 2023-0 Yes TAKE 1 Univ ers rine 10 mg 4-25 TABLET BY ity of tablet 00:00: MOUTH THREE Medical TIMES Branch DAILY FOR 7 DAYS NEEDED FOR PAIN cyclobenzap 2023-0 Yes TAKE 1 Univ ers rine 10 mg 4-25 TABLET BY ity of tablet 00:00: MOUTH THREE Medical TIMES Branch DAILY FOR 7 DAYS NEEDED FOR PAIN cyclobenzap 2023-0 Yes TAKE 1 Univ ers rine 10 mg 4-25 TABLET BY ity of tablet 00:00: THREE Medical TIMES Branch DAILY FOR 7 DAYS NEEDED FOR PAIN cyclobenzap 2023-0 Yes TAKE 1 Univ ers rine 10 mg 4-25 TABLET BY ity of tablet 00:00: MOUTH THREE Medical TIMES Branch DAILY FOR 7 DAYS NEEDED FOR PAIN cyclobenzap 2023-0 Yes TAKE 1 Univ ers rine 10 mg 4-25 TABLET BY ity of tablet 00:00: THREE Medical TIMES Branch DAILY FOR 7 DAYS NEEDED FOR PAIN cyclobenzap 2023-0 Yes TAKE 1 Univ ers rine 10 mg 4-25 TABLET BY ity of tablet 00:00: THREE Medical TIMES Branch DAILY FOR 7 DAYS NEEDED FOR PAIN cyclobenzap 2023-0 Yes TAKE 1 Univ ers rine 10 mg 4-25 TABLET BY ity of tablet 00:00: THREE Medical TIMES Branch DAILY FOR 7 DAYS NEEDED FOR PAIN cyclobenzap 2023-0 Yes TAKE 1 Univ ers rine 10 mg 4-25 TABLET BY ity of tablet 00:00: [facility] THREE Medical TIMES Branch DAILY FOR 7 DAYS NEEDED FOR PAIN cyclobenzap 2023-0 Yes TAKE 1 Univ ers rine 10 mg 4-25 TABLET BY ity of tablet 00:00: [facility] THREE Medical TIMES Branch DAILY FOR 7 DAYS NEEDED FOR PAIN cyclobenzap 2023-0 Yes TAKE 1 Univ ers rine 10 mg 4-25 TABLET BY ity of tablet 00:00: [facility] THREE Medical TIMES Branch DAILY FOR 7 DAYS NEEDED FOR PAIN cyclobenzap 2023-0 Yes TAKE 1 Univ ers rine 10 mg 4-25 TABLET BY ity of tablet 00:00: [facility] THREE Medical TIMES Branch DAILY FOR 7 DAYS NEEDED FOR PAIN cyclobenzap 2023-0 Yes TAKE 1 Univ ers rine 10 mg 4-25 TABLET BY ity of tablet 00:00: THREE Medical TIMES Branch DAILY FOR 7 DAYS NEEDED FOR PAIN cyclobenzap 2023-0 Yes TAKE 1 Univ ers rine 10 mg 4-25 TABLET BY ity of tablet 00:00: MOUTH THREE Medical TIMES Branch DAILY FOR 7 DAYS NEEDED FOR PAIN cyclobenzap 2023-0 Yes TAKE 1 Univ ers rine 10 mg 4-25 TABLET BY ity of tablet 00:00: THREE Medical TIMES Branch DAILY FOR 7 DAYS NEEDED FOR PAIN cyclobenzap 2023-0 Yes TAKE 1 Univ ers rine 10 mg 4-25 TABLET BY ity of tablet 00:00: THREE Medical TIMES Branch DAILY FOR 7 DAYS NEEDED FOR PAIN cyclobenzap 2023-0 Yes TAKE 1 Univ ers rine 10 mg 4-25 TABLET BY ity of tablet 00:00: THREE Medical TIMES Branch DAILY FOR 7 DAYS NEEDED FOR PAIN cyclobenzap 2023-0 Yes TAKE 1 Univ ers rine 10 mg 4-25 TABLET BY ity of tablet 00:00: THREE Medical TIMES Branch DAILY FOR 7 DAYS NEEDED FOR PAIN cyclobenzap 2023-0 Yes TAKE 1 Univ ers rine 10 mg 4-25 TABLET BY ity of tablet 00:00: THREE Medical TIMES Branch DAILY FOR 7 DAYS NEEDED FOR PAIN cyclobenzap 2023-0 Yes TAKE 1 Univ ers rine 10 mg 4-25 TABLET BY ity of tablet 00:00: THREE Medical TIMES Branch DAILY FOR 7 DAYS NEEDED FOR PAIN cyclobenzap 2023-0 Yes TAKE 1 Univ ers rine 10 mg 4-25 TABLET BY ity of tablet 00:00: THREE Medical TIMES Branch DAILY FOR 7 DAYS NEEDED FOR PAIN cyclobenzap 2023-0 Yes TAKE 1 Univ ers rine 10 mg 4-25 TABLET BY ity of tablet 00:00: THREE Medical TIMES Branch DAILY FOR 7 DAYS NEEDED FOR PAIN cyclobenzap 2023-0 Yes TAKE 1 Univ ers rine 10 mg 4-25 TABLET BY ity of tablet 00:00: THREE Medical TIMES Branch DAILY FOR 7 DAYS NEEDED FOR PAIN cyclobenzap 2023-0 Yes TAKE 1 Univ ers rine 10 mg 4-25 TABLET BY ity of tablet 00:00: THREE Medical TIMES Branch DAILY FOR 7 DAYS NEEDED FOR PAIN cyclobenzap 2023-0 Yes TAKE 1 Univ ers rine 10 mg 4-25 TABLET BY ity of tablet 00:00: THREE Medical TIMES Branch DAILY FOR 7 DAYS NEEDED FOR PAIN cyclobenzap 2023-0 Yes TAKE 1 Univ ers rine 10 mg 4-25 TABLET BY ity of tablet 00:00: THREE Medical TIMES Branch DAILY FOR 7 DAYS NEEDED FOR PAIN cyclobenzap 2023-0 Yes TAKE 1 Univ ers rine 10 mg 4-25 TABLET BY ity of tablet 00:00: THREE Medical TIMES Branch DAILY FOR 7 DAYS NEEDED FOR PAIN cyclobenzap 2023-0 Yes TAKE 1 Univ ers rine 10 mg 4-25 TABLET BY ity of tablet 00:00: THREE Medical TIMES Branch DAILY FOR 7 DAYS NEEDED FOR PAIN cyclobenzap 2023-0 Yes TAKE 1 Univ ers rine 10 mg 4-25 TABLET BY ity of tablet 00:00: THREE Medical TIMES Branch DAILY FOR 7 DAYS NEEDED FOR PAIN cyclobenzap 2023-0 Yes TAKE 1 Univ ers rine 10 mg 4-25 TABLET BY ity of tablet 00:00: THREE Medical TIMES Branch DAILY FOR 7 DAYS NEEDED FOR PAIN cyclobenzap 2023-0 Yes TAKE 1 Univ ers rine 10 mg 4-25 TABLET BY ity of tablet 00:00: THREE Medical TIMES Branch DAILY FOR 7 DAYS NEEDED FOR PAIN cyclobenzap 2023-0 Yes TAKE 1 Univ ers rine 10 mg 4-25 TABLET BY ity of tablet 00:00: THREE Medical TIMES Branch DAILY FOR 7 DAYS NEEDED FOR PAIN cyclobenzap 2023-0 Yes TAKE 1 Univ ers rine 10 mg 4-25 TABLET BY ity of tablet 00:00: THREE Medical TIMES Branch DAILY FOR 7 DAYS NEEDED FOR PAIN cyclobenzap 2023-0 Yes TAKE 1 Univ ers rine 10 mg 4-25 TABLET BY ity of tablet 00:00: THREE Medical TIMES Branch DAILY FOR 7 DAYS NEEDED FOR PAIN cyclobenzap 2023-0 Yes TAKE 1 Univ ers rine 10 mg 4-25 TABLET BY ity of tablet 00:00: THREE Medical TIMES Branch DAILY FOR 7 DAYS NEEDED FOR PAIN cyclobenzap 2023-0 Yes TAKE 1 Univ ers rine 10 mg 4-25 TABLET BY ity of tablet 00:00: THREE Medical TIMES Branch DAILY FOR 7 DAYS NEEDED FOR PAIN cyclobenzap 2023-0 Yes TAKE 1 Univ ers rine 10 mg 4-25 TABLET BY ity of tablet 00:00: MOUTH THREE Medical TIMES Branch DAILY FOR 7 DAYS NEEDED FOR PAIN cyclobenzap 2023-0 Yes TAKE 1 Univ ers rine 10 mg 4-25 TABLET BY ity of tablet 00:00: THREE Medical TIMES Branch DAILY FOR 7 DAYS NEEDED FOR PAIN cyclobenzap 2023-0 Yes TAKE 1 Univ ers rine 10 mg 4-25 TABLET BY ity of tablet 00:00: MOUTH [place] THREE Medical TIMES Branch DAILY FOR 7 DAYS NEEDED FOR PAIN cyclobenzap 2023-0 Yes TAKE 1 Univ ers rine 10 mg 4-25 TABLET BY ity of tablet 00:00: [facility] THREE Medical TIMES Branch DAILY FOR 7 DAYS NEEDED FOR PAIN cyclobenzap 2023-0 Yes TAKE 1 Univ ers rine 10 mg 4-25 TABLET BY ity of tablet 00:00: [facility] THREE Medical TIMES Branch DAILY FOR 7 DAYS NEEDED FOR PAIN cyclobenzap 2023-0 Yes TAKE 1 Univ ers rine 10 mg 4-25 TABLET BY ity of tablet 00:00: [facility] THREE Medical TIMES Branch DAILY FOR 7 DAYS NEEDED FOR PAIN cyclobenzap 2023-0 Yes TAKE 1 Univ ers rine 10 mg 4-25 TABLET BY ity of tablet 00:00: [facility] THREE Medical TIMES Branch DAILY FOR 7 DAYS NEEDED FOR PAIN cyclobenzap 2023-0 Yes TAKE 1 Univ ers rine 10 mg 4-25 TABLET BY ity of tablet 00:00: [facility] THREE Medical TIMES Branch DAILY FOR 7 DAYS NEEDED FOR PAIN cyclobenzap 2023-0 Yes TAKE 1 Univ ers rine 10 mg 4-25 TABLET BY ity of tablet 00:00: [facility] THREE Medical TIMES Branch DAILY FOR 7 DAYS NEEDED FOR PAIN cyclobenzap 2023-0 Yes TAKE 1 Univ ers rine 10 mg 4-25 TABLET BY ity of tablet 00:00: [facility] THREE Medical TIMES Branch DAILY FOR 7 DAYS NEEDED FOR PAIN cyclobenzap 2023-0 Yes TAKE 1 Univ ers rine 10 mg 4-25 TABLET BY ity of tablet 00:00: THREE Medical TIMES Branch DAILY FOR 7 DAYS NEEDED FOR PAIN cyclobenzap 2023-0 Yes TAKE 1 Univ ers rine 10 mg 4-25 TABLET BY ity of tablet 00:00: THREE Medical TIMES Branch DAILY FOR 7 DAYS NEEDED FOR PAIN cyclobenzap 2023-0 Yes TAKE 1 Univ ers rine 10 mg 4-25 TABLET BY ity of tablet 00:00: THREE Medical TIMES Branch DAILY FOR 7 DAYS NEEDED FOR PAIN cyclobenzap 2023-0 Yes TAKE 1 Univ ers rine 10 mg 4-25 TABLET BY ity of tablet 00:00: THREE Medical TIMES Branch DAILY FOR 7 DAYS NEEDED FOR PAIN cyclobenzap 2023-0 Yes TAKE 1 Univ ers rine 10 mg 4-25 TABLET BY ity of tablet 00:00: THREE Medical TIMES Branch DAILY FOR 7 DAYS NEEDED FOR PAIN cyclobenzap 2023-0 Yes TAKE 1 Univ ers rine 10 mg 4-25 TABLET BY ity of tablet 00:00: THREE Medical TIMES Branch DAILY FOR 7 DAYS NEEDED FOR PAIN cyclobenzap 2023-0 Yes TAKE 1 Univ ers rine 10 mg 4-25 TABLET BY ity of tablet 00:00: THREE Medical TIMES Branch DAILY FOR 7 DAYS NEEDED FOR PAIN cyclobenzap 2023-0 Yes TAKE 1 Univ ers rine 10 mg 4-25 TABLET BY ity of tablet 00:00: THREE Medical TIMES Branch DAILY FOR 7 DAYS NEEDED FOR PAIN cyclobenzap 2023-0 Yes TAKE 1 Univ ers rine 10 mg 4-25 TABLET BY ity of tablet 00:00: THREE Medical TIMES Branch DAILY FOR 7 DAYS NEEDED FOR PAIN cyclobenzap 2023-0 Yes TAKE 1 [facility] ers rine 10 mg 4-25 TABLET BY ity of tablet 00:00: THREE Medical TIMES Branch DAILY FOR 7 DAYS NEEDED FOR PAIN cyclobenzap 2023-0 Yes TAKE 1 [facility] ers rine 10 mg 4-25 TABLET BY ity of tablet 00:00: THREE Medical TIMES Branch DAILY FOR 7 DAYS NEEDED FOR PAIN cyclobenzap 2023-0 Yes TAKE 1 Univ ers rine 10 mg 4-25 TABLET BY ity of tablet 00:00: THREE Medical TIMES Branch DAILY FOR 7 DAYS NEEDED FOR PAIN cyclobenzap 2023-0 Yes TAKE 1 Univ ers rine 10 mg 4-25 TABLET BY ity of tablet 00:00: MOUTH [place] 00 THREE Medical TIMES Branch DAILY FOR 7 DAYS NEEDED FOR PAIN cyclobenzap 2023-0 Yes TAKE 1 [facility] ers rine 10 mg 4-25 TABLET BY ity of tablet 00:00: MOUTH THREE Medical TIMES Branch DAILY FOR 7 DAYS NEEDED FOR PAIN cyclobenzap 2023-0 Yes TAKE 1 [facility] ers rine 10 mg 4-25 TABLET BY ity of tablet 00:00: MOUTH THREE Medical TIMES Branch DAILY FOR 7 DAYS NEEDED FOR PAIN cyclobenzap 2023-0 Yes TAKE 1 [facility] ers rine 10 mg 4-25 TABLET BY ity of tablet 00:00: MOUTH THREE Medical TIMES Branch DAILY FOR 7 DAYS NEEDED FOR PAIN cyclobenzap 2023-0 Yes TAKE 1 [facility] ers rine 10 mg 4-25 TABLET BY ity of tablet 00:00: THREE Medical TIMES Branch DAILY FOR 7 DAYS NEEDED FOR PAIN cyclobenzap 2023-0 Yes TAKE 1 [facility] ers rine 10 mg 4-25 TABLET BY ity of tablet 00:00: THREE Medical TIMES Branch DAILY FOR 7 DAYS NEEDED FOR PAIN cyclobenzap 2023-0 Yes TAKE 1 [facility] ers rine 10 mg 4-25 TABLET BY ity of tablet 00:00: THREE Medical TIMES Branch DAILY FOR 7 DAYS NEEDED FOR PAIN cyclobenzap 2023-0 Yes TAKE 1 [facility] ers rine 10 mg 4-25 TABLET BY ity of tablet 00:00: THREE Medical TIMES Branch DAILY FOR 7 DAYS NEEDED FOR PAIN cyclobenzap 2023-0 Yes TAKE 1 [facility] ers rine 10 mg 4-25 TABLET BY ity of tablet 00:00: THREE Medical TIMES Branch DAILY FOR 7 DAYS NEEDED FOR PAIN cyclobenzap 2023-0 Yes TAKE 1 [facility] ers rine 10 mg 4-25 TABLET BY ity of tablet 00:00: MOUTH THREE Medical TIMES Branch DAILY FOR 7 DAYS NEEDED FOR PAIN cyclobenzap 2023-0 Yes TAKE 1 [facility] ers rine 10 mg 4-25 TABLET BY ity of tablet 00:00: [facility] THREE Medical TIMES Branch DAILY FOR 7 DAYS NEEDED FOR PAIN cyclobenzap 2023-0 Yes TAKE 1 Univ ers rine 10 mg 4-25 TABLET BY ity of tablet 00:00: THREE Medical TIMES Branch DAILY FOR 7 DAYS NEEDED FOR PAIN cyclobenzap 2023-0 Yes TAKE 1 [facility] ers rine 10 mg 4-25 TABLET BY ity of tablet 00:00: MOUTH [place] 00 THREE Medical TIMES Branch DAILY FOR 7 DAYS NEEDED FOR PAIN cyclobenzap Yes TAKE 1 [facility] ers rine 10 mg 4-25 TABLET BY ity of tablet 00:00: MOUTH [place] 00 THREE Medical TIMES Branch DAILY FOR 7 DAYS NEEDED FOR PAIN cyclobenzap Yes TAKE 1 [facility] ers rine 10 mg 4-25 TABLET BY ity of tablet 00:00: MOUTH [place] 00 THREE Medical TIMES Branch DAILY FOR 7 DAYS NEEDED FOR PAIN cyclobenzap Yes TAKE 1 [facility] ers rine 10 mg 4-25 TABLET BY ity of tablet 00:00: MOUTH [place] 00 THREE Medical TIMES Branch DAILY FOR 7 DAYS NEEDED FOR PAIN cefTRIAXone 2022- No [id number] 1000mg [facility] (ROCEPHIN) 12-05 ity of injection 18:58: 19:09 [place] 1,000 mg 00 :00 Medical Branch cefTRIAXone 2022- No [id number] 1000mg 1,000 mg, [facility] (ROCEPHIN) 12-05 Intramuscu it y of injection 18:58: 19:09 [place], ONCE, [place] 1,000 mg 00 :00 1 dose, On Medic al 12/05/22 Branch at 1300, NITA
Re ason for Anti-Infec tive: Documented Infection< br>Documen lora Infection Site: HEENT
D uration of Therapy: Other (see Comments) amoxicillin 2022- No [id number] 1{tbl} Take 1 [facility] -clavulanat 12-05 tablet by it y of e 00:00: 04:59 mouth in [place] (AUGMENTIN) 00 :00 the Medical 875-125 mg morning Branch per tablet and 1 tablet in the evening. Do all this for 10 days. ciprofloxac 2022- No [id number] 4[drp] Place 4 [facility] in-dexameth 12-05 Drops in ity of asone 00:00: 04:59 left ear [place] 0.3-0.1 % 00 :00 in the Medical otic drops morning Branch and 4 Drops in the evening. Do all this for 10 days. acetic acid 2022- No [id number] 5[drp] Place 5 [facility] 2 % otic 11-22 [id number] Drops in ity o f solution 00:00: 05:59 [place] 00 :[place] in [place] Medical morning Branch and 5 Drops at noon and 5 Drops in the evening. Do all this for 7 days. acetic acid 2022- No [id number] 5[drp] Place 5 [facility] 2 % otic 11-22 [id number] Drops in ity o f solution 00:00: 00:[place] :[place] in [place] Medical morning Branch and 5 Drops at noon and 5 Drops in the evening. Do all this for 7 days. UBIDECAR/FI 2022-0 Yes Take by Uni vers SH 2-02 mouth. ity of OIL/OMEGA-3 09:35: [place] /OSMIN (CO 56 Medical [id number] [place] OIL-OMEGA 3-E ORAL) tamsulosin 2022-0 Yes Take by Univ ers 0.4 mg 24 2-02 mouth ity of hr capsule 09:35: daily. [address] UBIDECAR/FI 2022-0 Yes Take by Uni vers SH 2-02 mouth. ity of OIL/OMEGA-3 09:35: [place] /OSMIN (CO 56 Medical I45-GYCR [place] OIL-OMEGA 3-E ORAL) tamsulosin 2022-0 Yes Take by Univ ers 0.4 mg 24 2-02 mouth ity of hr capsule 09:35: daily. [address] UBIDECAR/FI 2022-0 Yes Take by Uni vers SH 2-02 mouth. ity of OIL/OMEGA-3 09:35: [place] /OSMIN (CO 56 Medical B22-ISCU [place] OIL-OMEGA 3-E ORAL) tamsulosin 2022-0 Yes Take by Univ ers 0.4 mg 24 2-02 mouth ity of hr capsule 09:35: daily. [address] UBIDECAR/FI 2022-0 Yes Take by Uni vers SH 2-02 mouth. ity of OIL/OMEGA-3 09:35: [place] /OSMIN (CO 56 Medical M77-CUTX [place] OIL-OMEGA 3-E ORAL) tamsulosin 2022-0 Yes Take by Univ ers 0.4 mg 24 2-02 mouth ity of hr capsule 09:35: daily. [place] [address] Medical Branch UBIDECAR/FI 3-0 Yes Take by Uni vers SH 2-02 mouth. ity of OIL/OMEGA-3 09:35: [place] /OSMIN (CO 56 Medical Z64-MWOL Branch OIL-OMEGA 3-E ORAL) tamsulosin 3-0 Yes Take by Univ ers 0.4 mg 24 2-02 mouth ity of hr capsule 09:35: daily. [place] [address] Medical Branch UBIDECAR/FI 2022-0 Yes Take by Uni vers SH 2-02 mouth. ity of OIL/OMEGA-3 09:35: [place] /OSMIN (CO 56 Medical M90-CSKV Branch OIL-OMEGA 3-E ORAL) tamsulosin 2022-0 Yes Take by Univ ers 0.4 mg 24 2-02 mouth ity of hr capsule 09:35: daily. [place] [address] Medical Branch UBIDECAR/FI 2022-0 Yes Take by Uni vers 2-02 mouth. ity of OIL/OMEGA-3 09:35: [place] /OSMIN (CO 56 Medical J61-PVIR Branch OIL-OMEGA 3-E ORAL) tamsulosin 2022-0 Yes Take by Univ ers 0.4 mg 24 2-02 mouth ity of hr capsule 09:35: daily. [place] [address] Medical Branch UBIDECAR/FI 3-0 Yes Take by Uni vers SH 2-02 mouth. ity of OIL/OMEGA-3 09:35: [place] /OSMIN ([facility] Medical F58-KSDB Branch OIL-OMEGA 3-E ORAL) tamsulosin 2022-0 Yes Take by Univ ers 0.4 mg 24 2-02 mouth ity of hr capsule 09:35: daily. [place] [address] Medical Branch UBIDECAR/FI 3-0 Yes Take by Uni vers SH 2-02 mouth. ity of OIL/OMEGA-3 09:35: [place] /OSMIN (CO 56 Medical W69-EQYA Branch OIL-OMEGA 3-E ORAL) tamsulosin 3-0 Yes Take by Univ ers 0.4 mg 24 2-02 mouth ity of hr capsule 09:35: daily. [place] [address] Medical Branch UBIDECAR/FI 3-0 Yes Take by Uni vers SH 2-02 mouth. ity of OIL/OMEGA-3 09:35: [place] /OSMIN (CO 56 Medical G40-BKZL Branch OIL-OMEGA 3-E ORAL) tamsulosin 3-0 Yes Take by Univ ers 0.4 mg 24 2-02 mouth ity of hr capsule 09:35: daily. [place] [address] Medical Branch UBIDECAR/FI 2023-0 Yes Take by Uni vers SH 2-02 mouth. ity of OIL/OMEGA-3 09:35: [place] /OSMIN (CO 56 Medical B09-SHJD Branch OIL-OMEGA 3-E ORAL) tamsulosin 3-0 Yes Take by Univ ers 0.4 mg 24 2-02 mouth ity of hr capsule 09:35: daily. [place] [address] Medical Branch UBIDECAR/FI 3-0 Yes Take by Uni vers SH 2-02 mouth. ity of OIL/OMEGA-3 09:35: [place] /OSMIN (CO 56 Medical J06-KOEJ Branch OIL-OMEGA 3-E ORAL) tamsulosin 3-0 Yes Take by Univ ers 0.4 mg 24 2-02 mouth ity of hr capsule 09:35: daily. [place] [address] Medical Branch UBIDECAR/FI 3-0 Yes Take by Uni vers SH 2-02 mouth. ity of OIL/OMEGA-3 09:35: [place] /OSMIN (CO 56 Medical F80-LLJV Branch OIL-OMEGA 3-E ORAL) tamsulosin 3-0 Yes Take by Univ ers 0.4 mg 24 2-02 mouth ity of hr capsule 09:35: daily. [place] [address] Medical Branch UBIDECAR/FI 3-0 Yes Take by Uni vers SH 2-02 mouth. ity of OIL/OMEGA-3 09:35: [place] /OSMIN (CO 56 Medical O84-IDRS Branch OIL-OMEGA 3-E ORAL) tamsulosin 3-0 Yes Take by Univ ers 0.4 mg 24 2-02 mouth ity of hr capsule 09:35: daily. [place] [address] Medical Branch UBIDECAR/FI 3-0 Yes Take by Uni vers SH 2-02 mouth. ity of OIL/OMEGA-3 09:35: [place] /OSMIN (CO 56 Medical M32-RHII Branch OIL-OMEGA 3-E ORAL) tamsulosin 2023-0 Yes Take by Univ ers 0.4 mg 24 2-02 mouth ity of hr capsule 09:35: daily. [place] [address] Medical Branch UBIDECAR/FI 2023-0 Yes Take by Uni vers SH 2-02 mouth. ity of OIL/OMEGA-3 09:35: [place] /OSMIN (CO 56 Medical P00-OIIT Branch OIL-OMEGA 3-E ORAL) tamsulosin 2022-0 Yes Take by Univ ers 0.4 mg 24 2-02 mouth ity of hr capsule 09:35: daily. [place] [address] Medical Branch UBIDECAR/FI 2022-0 Yes Take by Uni vers SH 2-02 mouth. ity of OIL/OMEGA-3 09:35: [place] /OSMIN (CO 56 Medical Y64-NSSS Branch OIL-OMEGA 3-E ORAL) tamsulosin 2022-0 Yes Take by Univ ers 0.4 mg 24 2-02 mouth ity of hr capsule 09:35: daily. [place] [address] Medical Branch UBIDECAR/FI 2022-0 Yes Take by Uni vers SH 2-02 mouth. ity of OIL/OMEGA-3 09:35: [place] /OSMIN (CO 56 Medical Q39-ZPYA Branch OIL-OMEGA 3-E ORAL) tamsulosin 2022-0 Yes Take by Univ ers 0.4 mg 24 2-02 mouth ity of hr capsule 09:35: daily. [place] [address] Medical Branch UBIDECAR/FI 2022-0 Yes Take by Uni vers SH 2-02 mouth. ity of OIL/OMEGA-3 09:35: [place] /OSMIN (CO 56 Medical E56-EINC Branch OIL-OMEGA 3-E ORAL) tamsulosin 2022-0 Yes Take by Univ ers 0.4 mg 24 2-02 mouth ity of hr capsule 09:35: daily. [place] [address] Medical Branch UBIDECAR/FI 2022-0 Yes Take by Uni vers SH 2-02 mouth. ity of OIL/OMEGA-3 09:35: [place] /OSMIN (CO 56 Medical H65-GVBY Branch OIL-OMEGA 3-E ORAL) tamsulosin 2022-0 Yes Take by Univ ers 0.4 mg 24 2-02 mouth ity of hr capsule 09:35: daily. [place] [address] Medical Branch UBIDECAR/FI 2022-0 Yes Take by Uni vers SH 2-02 mouth. ity of OIL/OMEGA-3 09:35: [place] /OSMIN (CO 56 Medical A51-NKQH Branch OIL-OMEGA 3-E ORAL) tamsulosin 3-0 Yes Take by Univ ers 0.4 mg 24 2-02 mouth ity of hr capsule 09:35: daily. [place] [address] Medical Branch UBIDECAR/FI 3-0 Yes Take by Uni vers SH 2-02 mouth. ity of OIL/OMEGA-3 09:35: [place] /OSMIN (CO 56 Medical X87-UZDH Branch OIL-OMEGA 3-E ORAL) tamsulosin 3-0 Yes Take by Univ ers 0.4 mg 24 2-02 mouth ity of hr capsule 09:35: daily. [place] [address] Medical Branch UBIDECAR/FI 3-0 Yes Take by Uni vers SH 2-02 mouth. ity of OIL/OMEGA-3 09:35: [place] /OSMIN (CO 56 Medical J87-ONLM Branch OIL-OMEGA 3-E ORAL) tamsulosin 2022-0 Yes Take by Univ ers 0.4 mg 24 2-02 mouth ity of hr capsule 09:35: daily. [place] [address] Medical Branch UBIDECAR/FI 3-0 Yes Take by Uni vers SH 2-02 mouth. ity of OIL/OMEGA-3 09:35: [place] /OSMIN (CO 56 Medical R60-KWMZ Branch OIL-OMEGA 3-E ORAL) tamsulosin 2022-0 Yes Take by Univ ers 0.4 mg 24 2-02 mouth ity of hr capsule 09:35: daily. [place] [address] Medical Branch UBIDECAR/FI 3-0 Yes Take by Uni vers SH 2-02 mouth. ity of OIL/OMEGA-3 09:35: [place] /OSMIN (CO 56 Medical X51-CBWW Branch OIL-OMEGA 3-E ORAL) tamsulosin 3-0 Yes Take by Univ ers 0.4 mg 24 2-02 mouth ity of hr capsule 09:35: daily. [place] [address] Medical Branch UBIDECAR/FI 3-0 Yes Take by Uni vers SH 2-02 mouth. ity of OIL/OMEGA-3 09:35: [place] /OSMIN (CO 56 Medical S64-JUYL Branch OIL-OMEGA 3-E ORAL) tamsulosin 3-0 Yes Take by Univ ers 0.4 mg 24 2-02 mouth ity of hr capsule 09:35: daily. [place] [address] Medical Branch UBIDECAR/FI 3-0 Yes Take by Uni vers SH 2-02 mouth. ity of OIL/OMEGA-3 09:35: [place] /OSMIN (CO 56 Medical U95-MKGW Branch OIL-OMEGA 3-E ORAL) tamsulosin 2022-0 Yes Take by Univ ers 0.4 mg 24 2-02 mouth ity of hr capsule 09:35: daily. [place] [address] Medical Branch UBIDECAR/FI 2022-0 Yes Take by Uni vers SH 2-02 mouth. ity of OIL/OMEGA-3 09:35: [place] /OSMIN (CO 56 Medical F24-YTZC Branch OIL-OMEGA 3-E ORAL) tamsulosin 2022-0 Yes Take by Univ ers 0.4 mg 24 2-02 mouth ity of hr capsule 09:35: daily. [place] [address] Medical Branch UBIDECAR/FI 2022-0 Yes Take by Uni vers SH 2-02 mouth. ity of OIL/OMEGA-3 09:35: [place] /OSMIN (CO Medical E51-XRTJ Branch OIL-OMEGA 3-E ORAL) tamsulosin 2022-0 Yes Take by Univ ers 0.4 mg 24 2-02 mouth ity of hr capsule 09:35: daily. [place] [address] Medical Branch UBIDECAR/FI 2022-0 Yes Take by Uni vers SH 2-02 mouth. ity of OIL/OMEGA-3 09:35: [place] /OSMIN (CO 56 Medical E49-RVQS Branch OIL-OMEGA 3-E ORAL) tamsulosin 2022-0 Yes Take by Univ ers 0.4 mg 24 2-02 mouth ity of hr capsule 09:35: daily. [address] UBIDECAR/FI 2022-0 Yes Take by Uni vers SH 2-02 mouth. ity of OIL/OMEGA-3 09:35: [place] /OSMIN (CO 56 Medical P06-THOL Branch OIL-OMEGA 3-E ORAL) tamsulosin 2022-0 Yes Take by Univ ers 0.4 mg 24 2-02 mouth ity of hr capsule 09:35: daily. [place] [address] Medical Branch UBIDECAR/FI 2022-0 Yes Take by Uni vers SH 2-02 mouth. ity of OIL/OMEGA-3 09:35: [place] /OSMIN (CO 56 Medical O21-SJXF Branch OIL-OMEGA 3-E ORAL) tamsulosin 2022-0 Yes Take by Univ ers 0.4 mg 24 2-02 mouth ity of hr capsule 09:35: daily. [place] [address] Medical Branch UBIDECAR/FI 3-0 Yes Take by Uni vers SH 2-02 mouth. ity of OIL/OMEGA-3 09:35: [place] /OSMIN (CO 56 Medical L25-IVVB Branch OIL-OMEGA 3-E ORAL) tamsulosin 3-0 Yes Take by Univ ers 0.4 mg 24 2-02 mouth ity of hr capsule 09:35: daily. [place] [address] Medical Branch UBIDECAR/FI 3-0 Yes Take by Uni vers SH 2-02 mouth. ity of OIL/OMEGA-3 09:35: [place] /OSMIN (CO 56 Medical J33-SXQY Branch OIL-OMEGA 3-E ORAL) tamsulosin 2022-0 Yes Take by Univ ers 0.4 mg 24 2-02 mouth ity of hr capsule 09:35: daily. [place] [address] Medical Branch UBIDECAR/FI 2022-0 Yes Take by Uni vers SH 2-02 mouth. ity of OIL/OMEGA-3 09:35: [place] /OSMIN (CO 56 Medical K32-YTZG Branch OIL-OMEGA 3-E ORAL) tamsulosin 3-0 Yes Take by Univ ers 0.4 mg 24 2-02 mouth ity of hr capsule 09:35: daily. [place] [address] Medical Branch UBIDECAR/FI 3-0 Yes Take by Uni vers SH 2-02 mouth. ity of OIL/OMEGA-3 09:35: [place] /OSMIN (CO 56 Medical Q90-JOTP Branch OIL-OMEGA 3-E ORAL) tamsulosin 3-0 Yes Take by Univ ers 0.4 mg 24 2-02 mouth ity of hr capsule 09:35: daily. [place] [address] Medical Branch UBIDECAR/FI 3-0 Yes Take by Uni vers SH 2-02 mouth. ity of OIL/OMEGA-3 09:35: [place] /OSMIN (CO 56 Medical U22-UCRM Branch OIL-OMEGA 3-E ORAL) tamsulosin 3-0 Yes Take by Univ ers 0.4 mg 24 2-02 mouth ity of hr capsule 09:35: daily. [place] [address] Medical Branch UBIDECAR/FI 3-0 Yes Take by Uni vers SH 2-02 mouth. ity of OIL/OMEGA-3 09:35: [place] /OSMIN (CO 56 Medical Q57-XEBX Branch OIL-OMEGA 3-E ORAL) tamsulosin 2022-0 Yes Take by [facility] ers 0.4 mg 24 2-02 mouth ity of hr capsule 09:35: daily. [address] Branch UBIDECAR/FI 2022-0 Yes Take by Uni vers SH 2-02 mouth. ity of OIL/OMEGA-3 09:35: [place] /OSMIN (SC [address] [facility] [id number] [place] OIL-OMEGA 3-E ORAL) tamsulosin 2022-0 Yes Take by [facility] ers 0.4 mg 24 2-02 mouth ity of hr capsule 09:35: daily. [place] [address] Medical Branch lisinopriL 2022-0 Yes [id number] 40mg Take 1 [facility] 40 mg 2-02 tablet by ity of tablet 00:00: mouth in [place] 00 the Medical morning. Branch carvediloL 2022-0 Yes [id number] 6.25mg Take 1 [facility] 6.25 mg 2-02 tablet by ity of tablet 00:00: mouth in [place] 00 the Medical morning Branch and 1 tablet in the evening. Take with meals. icosapent 2022-0 Yes [id number] 2g Take 2 U nivers ethyL 2-02 capsules ity of (VASCEPA) 1 00:00: by mouth [place] gram 00 in the Medical capsule morning Branch and 2 capsules in the evening. ezetimibe 2022-0 Yes [id number] 10mg Take 1 Un todd 10 mg 2-02 tablet by ity of tablet 00:00: mouth in [place] 00 the Medical morning. Branch atorvastati 2022-0 Yes [id number] 80mg Take 1 Univers n 80 mg 2-02 tablet by ity of tablet 00:00: mouth at [place] [address] bedtime. Medical Branch isosorbide 2022-0 Yes [id number] 30mg Take 1 U nivers mononitrate 2-02 tablet by ity of 30 mg 24 hr 00:00: mouth in [place] tablet 00 the Medical morning. Branch clopidogreL 2022-0 Yes [id number] 75mg Take 1 Univers 75 mg 2-02 tablet by ity of tablet 00:00: mouth in [place] 00 the Medical morning. Branch fenofibrate 2022-0 Yes [id number] 145mg Take 1 [facility] 145 mg 2-02 9109 tablet by ity of tablet 00:00: mouth in [place] 00 the Medical morning. Branch lisinopriL 2022-0 Yes [id number] 40mg Take 1 [facility] 40 mg 2-02 tablet by ity of tablet 00:00: mouth in [place] the morning. Branch carvediloL 2022-0 Yes [id number] 6.25mg Take 1 [facility] 6.25 mg 2-02 tablet by ity of tablet 00:00: mouth in [place] 00 the Medical morning Branch and 1 tablet in the evening. Take with meals. icosapent 2022-0 Yes [id number] 2g Take 2 U nivers ethyL 2-02 capsules ity of (VASCEPA) 1 00:00: by mouth [place] gram 00 in the Medical capsule morning Branch and 2 capsules in the evening. ezetimibe 2022-0 Yes [id number] 10mg Take 1 Un todd 10 mg 2-02 tablet by ity of tablet 00:00: mouth in [place] the Medical morning. Branch atorvastati 2022-0 Yes [id number] 80mg Take 1 [facility] n 80 mg 2-02 tablet by ity of tablet 00:00: mouth at [place] [address] bedtime. Medical Branch isosorbide 2022-0 Yes [id number] 30mg Take 1 U nivers mononitrate 2-02 tablet by ity of 30 mg 24 hr 00:00: mouth in [place] tablet 00 the morning. Branch clopidogreL 2022-0 Yes [id number] 75mg Take 1 [facility] 75 mg 2-02 tablet by ity of tablet 00:00: mouth in [place] the Medical morning. Branch fenofibrate 2022-0 Yes [id number] 145mg Take 1 [facility] 145 mg 2-02 9109 tablet by ity of tablet 00:00: mouth in [place] the Medical morning. Branch lisinopriL 2022-0 Yes [id number] 40mg Take 1 [facility] 40 mg 2-02 tablet by ity of tablet 00:00: mouth in [place] 00 the Medical morning. Branch carvediloL 2022-0 Yes [id number] 6.25mg Take 1 [facility] 6.25 mg 2-02 tablet by ity of tablet 00:00: mouth in [place] 00 the Medical morning Branch and 1 tablet in the evening. Take with meals. icosapent 2022-0 Yes [id number] 2g Take 2 U nivers ethyL 2-02 capsules ity of (VASCEPA) 1 00:00: by mouth [place] gram 00 in the Medical capsule morning Branch and 2 capsules in the evening. ezetimibe 2022-0 Yes [id number] 10mg Take 1 Un todd 10 mg 2-02 tablet by ity of tablet 00:00: mouth in [place] 00 the Medical morning. Branch atorvastati 2022-0 Yes [id number] 80mg Take 1 Univers n 80 mg 2-02 tablet by ity of tablet 00:00: mouth at [place] [address] bedtime. Medical Branch isosorbide 2022-0 Yes [id number] 30mg Take 1 U nivers mononitrate 2-02 tablet by ity of 30 mg 24 hr 00:00: mouth in [place] tablet 00 the Medical morning. Branch clopidogreL 2022-0 Yes [id number] 75mg Take 1 [facility] 75 mg 2-02 tablet by ity of tablet 00:00: mouth in [place] 00 the Medical morning. Branch fenofibrate 2022-0 Yes [id number] 145mg Take 1 [facility] 145 mg 2-02 9109 tablet by ity of tablet 00:00: mouth in [place] 00 the Medical morning. Branch lisinopriL 2022-0 Yes [id number] 40mg Take 1 [facility] 40 mg 2-02 tablet by ity of tablet 00:00: mouth in [place] 00 the Medical morning. Branch carvediloL 2022-0 Yes [id number] 6.25mg Take 1 [facility] 6.25 mg 2-02 tablet by ity of tablet 00:00: mouth in [place] 00 the Medical morning Branch and 1 tablet in the evening. Take with meals. icosapent 2022-0 Yes [id number] 2g Take 2 U nivers ethyL 2-02 capsules ity of (VASCEPA) 1 00:00: by mouth [place] gram 00 in the Medical capsule morning Branch and 2 capsules in the evening. ezetimibe 2022-0 Yes [id number] 10mg Take 1 Un todd 10 mg 2-02 tablet by ity of tablet 00:00: mouth in [place] 00 the Medical morning. Branch atorvastati 2022-0 Yes [id number] 80mg Take 1 Univers n 80 mg 2-02 tablet by ity of tablet 00:00: mouth at [place] [address] bedtime. Medical Branch isosorbide 2022-0 Yes [id number] 30mg Take 1 U nivers mononitrate 2-02 tablet by ity of 30 mg 24 hr 00:00: mouth in [place] tablet 00 the Medical morning. Branch clopidogreL 2022-0 Yes [id number] 75mg Take 1 [facility] 75 mg 2-02 tablet by ity of tablet 00:00: mouth in [place] 00 the Medical morning. Branch fenofibrate 2022-0 Yes [id number] 145mg Take 1 [facility] 145 mg 2-02 9109 tablet by ity of tablet 00:00: mouth in [place] 00 the Medical morning. Branch lisinopriL 2022-0 Yes [id number] 40mg Take 1 [facility] 40 mg 2-02 tablet by ity of tablet 00:00: mouth in [place] 00 the Medical morning. Branch carvediloL 2022-0 Yes [id number] 6.25mg Take 1 [facility] 6.25 mg 2-02 tablet by ity of tablet 00:00: mouth in [place] 00 the Medical morning Branch and 1 tablet in the evening. Take with meals. icosapent 2022-0 Yes [id number] 2g Take 2 U nivers ethyL 2-02 capsules ity of (VASCEPA) 1 00:00: by mouth [place] gram 00 in the Medical capsule morning Branch and 2 capsules in the evening. ezetimibe 2022-0 Yes [id number] 10mg Take 1 Un todd 10 mg 2-02 tablet by ity of tablet 00:00: mouth in [place] 00 the Medical morning. Branch atorvastati 2022-0 Yes [id number] 80mg Take 1 Univers n 80 mg 2-02 tablet by ity of tablet 00:00: mouth at [place] 00 bedtime. Medical Branch isosorbide 2022-0 Yes [id number] 30mg Take 1 U nivers mononitrate 2-02 tablet by ity of 30 mg 24 hr 00:00: mouth in [place] tablet 00 the Medical morning. Branch clopidogreL 2022-0 Yes [id number] 75mg Take 1 [facility] 75 mg 2-02 tablet by ity of tablet 00:00: mouth in [place] 00 the Medical morning. Branch fenofibrate 2022-0 Yes [id number] 145mg Take 1 [facility] 145 mg 2-02 9109 tablet by ity of tablet 00:00: mouth in [place] 00 the Medical morning. Branch lisinopriL 2022-0 Yes [id number] 40mg Take 1 [facility] 40 mg 2-02 tablet by ity of tablet 00:00: mouth in [place] the morning. Branch carvediloL 2022-0 Yes [id number] 6.25mg Take 1 [facility] 6.25 mg 2-02 tablet by ity of tablet 00:00: mouth in [place] 00 the Medical morning Branch and 1 tablet in the evening. Take with meals. icosapent 2022-0 Yes [id number] 2g Take 2 U nivers ethyL 2-02 capsules ity of (VASCEPA) 1 00:00: by mouth [place] gram 00 in the Medical capsule morning Branch and 2 capsules in the evening. ezetimibe 2022-0 Yes [id number] 10mg Take 1 Un todd 10 mg 2-02 tablet by ity of tablet 00:00: mouth in [place] 00 the Medical morning. Branch atorvastati 2022-0 Yes [id number] 80mg Take 1 [facility] n 80 mg 2-02 tablet by ity of tablet 00:00: mouth at [place] [address] bedtime. Medical Branch isosorbide 2022-0 Yes [id number] 30mg Take 1 U nivers mononitrate 2-02 tablet by ity of 30 mg 24 hr 00:00: mouth in [place] tablet 00 the morning. Branch clopidogreL 2022-0 Yes [id number] 75mg Take 1 [facility] 75 mg 2-02 tablet by ity of tablet 00:00: mouth in [place] the Medical morning. Branch fenofibrate 2022-0 Yes [id number] 145mg Take 1 [facility] 145 mg 2-02 9109 tablet by ity of tablet 00:00: mouth in [place] the Medical morning. Branch lisinopriL 2022-0 Yes [id number] 40mg Take 1 [facility] 40 mg 2-02 tablet by ity of tablet 00:00: mouth in [place] 00 the Medical morning. Branch carvediloL 2022-0 Yes [id number] 6.25mg Take 1 [facility] 6.25 mg 2-02 tablet by ity of tablet 00:00: mouth in [place] 00 the Medical morning Branch and 1 tablet in the evening. Take with meals. icosapent 2022-0 Yes [id number] 2g Take 2 U nivers ethyL 2-02 capsules ity of (VASCEPA) 1 00:00: by mouth [place] gram 00 in the Medical capsule morning Branch and 2 capsules in the evening. ezetimibe 2022-0 Yes [id number] 10mg Take 1 Un todd 10 mg 2-02 tablet by ity of tablet 00:00: mouth in [place] 00 the Medical morning. Branch atorvastati 2022-0 Yes [id number] 80mg Take 1 Univers n 80 mg 2-02 tablet by ity of tablet 00:00: mouth at [place] [address] bedtime. Medical Branch isosorbide 2022-0 Yes [id number] 30mg Take 1 U nivers mononitrate 2-02 tablet by ity of 30 mg 24 hr 00:00: mouth in [place] tablet 00 the Medical morning. Branch clopidogreL 2022-0 Yes [id number] 75mg Take 1 [facility] 75 mg 2-02 tablet by ity of tablet 00:00: mouth in [place] 00 the Medical morning. Branch fenofibrate 2022-0 Yes [id number] 145mg Take 1 [facility] 145 mg 2-02 9109 tablet by ity of tablet 00:00: mouth in [place] the Medical morning. Branch lisinopriL 2022-0 Yes [id number] 40mg Take 1 [facility] 40 mg 2-02 tablet by ity of tablet 00:00: mouth in [place] 00 the Medical morning. Branch carvediloL 2022-0 Yes [id number] 6.25mg Take 1 [facility] 6.25 mg 2-02 tablet by ity of tablet 00:00: mouth in [place] the Medical morning Branch and 1 tablet in the evening. Take with meals. icosapent 2022-0 Yes [id number] 2g Take 2 U nivers ethyL 2-02 capsules ity of (VASCEPA) 1 00:00: by mouth [place] gram 00 in the Medical capsule morning Branch and 2 capsules in the evening. ezetimibe 2022-0 Yes [id number] 10mg Take 1 [facility] todd 10 mg 2-02 tablet by [facility] of tablet 00:00: mouth in [place] 00 the Medical morning. Branch atorvastati 2022-0 Yes [id number] 80mg Take 1 [facility] n 80 mg 2-02 tablet by [facility] of tablet 00:00: mouth at [place] [address] bedtime. Medical Branch isosorbide 2023-0 Yes [id number] 30mg Take 1 U nivers mononitrate 2-02 tablet by [facility] of 30 mg 24 hr 00:00: mouth in [place] tablet 00 the Medical morning. Branch clopidogreL 2022-0 Yes [id number] 75mg Take 1 [facility] 75 mg 2-02 tablet by [facility] tablet 00:00: mouth in [place] 00 the Medical morning. Branch fenofibrate 2022-0 Yes [id number] 145mg Take 1 [facility] 145 mg 2-02 9109 tablet by [facility] tablet 00:00: mouth in [place] 00 the Medical morning. Branch lisinopriL 2022-0 Yes [id number] 40mg Take 1 [facility] 40 mg 2-02 tablet by [facility] tablet 00:00: mouth in [place] 00 the Medical morning. Branch carvediloL 2022-0 Yes [id number] 6.25mg Take 1 [facility] 6.25 mg 2-02 tablet by [facility] tablet 00:00: mouth in [place] 00 the Medical morning Branch and 1 tablet in the evening. Take with meals. icosapent 2022-0 Yes [id number] 2g Take 2 [facility] nivers ethyL 2-02 capsules [facility] of (VASCEPA) 1 00:00: by mouth [place] gram 00 in the Medical capsule morning Branch and 2 capsules in the evening. ezetimibe 2022-0 Yes [id number] 10mg Take 1 [facility] todd 10 mg 2-02 tablet by [facility] tablet 00:00: mouth in [place] 00 the Medical morning. Branch atorvastati 2022-0 Yes [id number] 80mg Take 1 [facility] n 80 mg 2-02 tablet by [facility] tablet 00:00: mouth at [place] 00 bedtime. Medical Branch isosorbide 2022-0 Yes [id number] 30mg Take 1 [facility] nivers mononitrate 2-02 tablet by [facility] 30 mg 24 hr 00:00: mouth in [place] tablet 00 the Medical morning. Branch clopidogreL 2022-0 Yes [id number] 75mg Take 1 [facility] 75 mg 2-02 tablet by [facility] tablet 00:00: mouth in [place] 00 the Medical morning. Branch fenofibrate 3-0 Yes [id number] 145mg Take 1 [facility] 145 mg 2-02 9109 tablet by [facility] tablet 00:00: mouth in [place] 00 the Medical morning. Branch lisinopriL 2022-0 Yes [id number] 40mg Take 1 [facility] 40 mg 2-02 tablet by [facility] tablet 00:00: mouth in [place] 00 the Medical morning. Branch carvediloL 2022-0 Yes [id number] 6.25mg Take 1 [facility] 6.25 mg 2-02 tablet by [facility] tablet 00:00: mouth in [place] 00 the Medical morning Branch and 1 tablet in the evening. Take with meals. icosapent 2022-0 Yes [id number] 2g Take 2 [facility] nivers ethyL 2-02 capsules [facility] of (VASCEPA) 1 00:00: by mouth [place] gram 00 in the Medical capsule morning Branch and 2 capsules in the evening. ezetimibe 2022-0 Yes [id number] 10mg Take 1 [facility] todd 10 mg 2-02 tablet by [facility] tablet 00:00: mouth in [place] 00 the Medical morning. Branch atorvastati 2022-0 Yes [id number] 80mg Take 1 [facility] n 80 mg 2-02 tablet by [facility] tablet 00:00: mouth at [place] [address] bedtime. Medical Branch isosorbide 2022-0 Yes [id number] 30mg Take 1 [facility] nivers mononitrate 2-02 tablet by [facility] 30 mg 24 hr 00:00: mouth in [place] tablet 00 the Medical morning. Branch clopidogreL 2022-0 Yes [id number] 75mg Take 1 [facility] 75 mg 2-02 tablet by [facility] tablet 00:00: mouth in [place] 00 the Medical morning. Branch fenofibrate 2022-0 Yes [id number] 145mg Take 1 [facility] 145 mg 2-02 9109 tablet by [facility] tablet 00:00: mouth in [place] 00 the Medical morning. Branch lisinopriL 2022-0 Yes [id number] 40mg Take 1 [facility] 40 mg 2-02 tablet by [facility] tablet 00:00: mouth in [place] 00 the Medical morning. Branch carvediloL 2022-0 Yes [id number] 6.25mg Take 1 [facility] 6.25 mg 2-02 tablet by [facility] tablet 00:00: mouth in [place] 00 the Medical morning Branch and 1 tablet in the evening. Take with meals. icosapent 2022-0 Yes [id number] 2g Take 2 [facility] nivers ethyL 2-02 capsules [facility] of (VASCEPA) 1 00:00: by mouth [place] gram 00 in the Medical capsule morning Branch and 2 capsules in the evening. ezetimibe 2022-0 Yes [id number] 10mg Take 1 [facility] todd 10 mg 2-02 tablet by [facility] tablet 00:00: mouth in [place] 00 the Medical morning. Branch atorvastati 2022-0 Yes [id number] 80mg Take 1 [facility] n 80 mg 2-02 tablet by [facility] of tablet 00:00: mouth at [place] [address] bedtime. Medical Branch isosorbide 3-0 Yes [id number] 30mg Take 1 [facility] nivers mononitrate 2-02 tablet by [facility] of 30 mg 24 hr 00:00: mouth in [place] tablet 00 the Medical morning. Branch clopidogreL 2022-0 Yes [id number] 75mg Take 1 [facility] 75 mg 2-02 tablet by [facility] tablet 00:00: mouth in [place] 00 the Medical morning. Branch fenofibrate 2022-0 Yes [id number] 145mg Take 1 [facility] 145 mg 2-02 9109 tablet by [facility] tablet 00:00: mouth in [place] the Medical morning. Branch lisinopriL 2022-0 Yes [id number] 40mg Take 1 [facility] 40 mg 2-02 tablet by [facility] tablet 00:00: mouth in [place] the Medical morning. Branch carvediloL 2022-0 Yes [id number] 6.25mg Take 1 [facility] 6.25 mg 2-02 tablet by [facility] of tablet 00:00: mouth in [place] the Medical morning Branch and 1 tablet in the evening. Take with meals. icosapent 2022-0 Yes [id number] 2g Take 2 [facility] nivers ethyL 2-02 capsules it[facility] of (VASCEPA) 1 00:00: by mouth [place] gram 00 in the Medical capsule morning Branch and 2 capsules in the evening. ezetimibe 2022-0 Yes [id number] 10mg Take 1 [facility] todd 10 mg 2-02 tablet by [facility] tablet 00:00: mouth in [place] 00 the Medical morning. Branch atorvastati 2022-0 Yes [id number] 80mg Take 1 [facility] n 80 mg 2-02 tablet by [facility] tablet 00:00: mouth at [place] [address] bedtime. Medical Branch isosorbide 2023-0 Yes [id number] 30mg Take 1 [facility] nivers mononitrate 2-02 tablet by [facility] of 30 mg 24 hr 00:00: mouth in [place] tablet 00 the Medical morning. Branch clopidogreL 2022-0 Yes [id number] 75mg Take 1 [facility] 75 mg 2-02 tablet by [facility] tablet 00:00: mouth in [place] 00 the Medical morning. Branch fenofibrate 2022-0 Yes [id number] 145mg Take 1 [facility] 145 mg 2-02 9109 tablet by [facility] tablet 00:00: mouth in [place] 00 the Medical morning. Branch lisinopriL 2022-0 Yes [id number] 40mg Take 1 [facility] 40 mg 2-02 tablet by [facility] tablet 00:00: mouth in [place] 00 the Medical morning. Branch carvediloL 2022-0 Yes [id number] 6.25mg Take 1 [facility] 6.25 mg 2-02 tablet by [facility] tablet 00:00: mouth in [place] 00 the Medical morning Branch and 1 tablet in the evening. Take with meals. icosapent 2022-0 Yes [id number] 2g Take 2 [facility] nivers ethyL 2-02 capsules [facility] of (VASCEPA) 1 00:00: by mouth [place] gram 00 in the Medical capsule morning Branch and 2 capsules in the evening. ezetimibe 2022-0 Yes [id number] 10mg Take 1 [facility] todd 10 mg 2-02 tablet by [facility] tablet 00:00: mouth in [place] 00 the Medical morning. Branch atorvastati 2022-0 Yes [id number] 80mg Take 1 [facility] n 80 mg 2-02 tablet by [facility] of tablet 00:00: mouth at [place] 00 bedtime. Medical Branch isosorbide 2022-0 Yes [id number] 30mg Take 1 [facility] nivers mononitrate 2-02 tablet by [facility] of 30 mg 24 hr 00:00: mouth in [place] tablet 00 the Medical morning. Branch clopidogreL 2022-0 Yes [id number] 75mg Take 1 [facility] 75 mg 2-02 tablet by [facility] tablet 00:00: mouth in [place] 00 the Medical morning. Branch fenofibrate 3-0 Yes [id number] 145mg Take 1 [facility] 145 mg 2-02 9109 tablet by [facility] of tablet 00:00: mouth in [place] 00 the Medical morning. Branch lisinopriL 2022-0 Yes [id number] 40mg Take 1 [facility] 40 mg 2-02 tablet by [facility] of tablet 00:00: mouth in [place] 00 the Medical morning. Branch carvediloL 2022-0 Yes [id number] 6.25mg Take 1 [facility] 6.25 mg 2-02 tablet by [facility] of tablet 00:00: mouth in [place] 00 the Medical morning Branch and 1 tablet in the evening. Take with meals. icosapent 2022-0 Yes [id number] 2g Take 2 [facility] nivers ethyL 2-02 capsules it[facility] of (VASCEPA) 1 00:00: by mouth [place] gram 00 in the Medical capsule morning Branch and 2 capsules in the evening. ezetimibe 2022-0 Yes [id number] 10mg Take 1 [facility] todd 10 mg 2-02 tablet by [facility] tablet 00:00: mouth in [place] 00 the Medical morning. Branch atorvastati 2022-0 Yes [id number] 80mg Take 1 [facility] n 80 mg 2-02 tablet by [facility] of tablet 00:00: mouth at [place] [address] bedtime. Medical Branch isosorbide 2022-0 Yes [id number] 30mg Take 1 [facility] nivers mononitrate 2-02 tablet by [facility] of 30 mg 24 hr 00:00: mouth in [place] tablet 00 the Medical morning. Branch clopidogreL 2022-0 Yes [id number] 75mg Take 1 [facility] 75 mg 2-02 tablet by [facility] tablet 00:00: mouth in [place] 00 the Medical morning. Branch fenofibrate 2022-0 Yes [id number] 145mg Take 1 [facility] 145 mg 2-02 9109 tablet by [facility] of tablet 00:00: mouth in [place] 00 the Medical morning. Branch lisinopriL 2022-0 Yes [id number] 40mg Take 1 [facility] 40 mg 2-02 tablet by [facility] tablet 00:00: mouth in [place] 00 the Medical morning. Branch carvediloL 2022-0 Yes [id number] 6.25mg Take 1 [facility] 6.25 mg 2-02 tablet by [facility] of tablet 00:00: mouth in [place] 00 the Medical morning Branch and 1 tablet in the evening. Take with meals. icosapent 2022-0 Yes [id number] 2g Take 2 [facility] nivers ethyL 2-02 capsules it[facility] of (VASCEPA) 1 00:00: by mouth [place] gram 00 in the Medical capsule morning Branch and 2 capsules in the evening. ezetimibe 2022-0 Yes [id number] 10mg Take 1 [facility] todd 10 mg 2-02 tablet by [facility] tablet 00:00: mouth in [place] 00 the Medical morning. Branch atorvastati 2022-0 Yes [id number] 80mg Take 1 [facility] n 80 mg 2-02 tablet by [facility] of tablet 00:00: mouth at [place] [address] bedtime. Medical Branch isosorbide 2022-0 Yes [id number] 30mg Take 1 [facility] nivers mononitrate 2-02 tablet by [facility] of 30 mg 24 hr 00:00: mouth in [place] tablet 00 the Medical morning. Branch clopidogreL 2022-0 Yes [id number] 75mg Take 1 [facility] 75 mg 2-02 tablet by [facility] of tablet 00:00: mouth in [place] 00 the Medical morning. Branch fenofibrate 2022-0 Yes [id number] 145mg Take 1 [facility] 145 mg 2-02 9109 tablet by [facility] of tablet 00:00: mouth in [place] 00 the Medical morning. Branch lisinopriL 2022-0 Yes [id number] 40mg Take 1 [facility] 40 mg 2-02 tablet by [facility] of tablet 00:00: mouth in [place] 00 the Medical morning. Branch carvediloL 2022-0 Yes [id number] 6.25mg Take 1 [facility] 6.25 mg 2-02 tablet by [facility] of tablet 00:00: mouth in [place] 00 the Medical morning Branch and 1 tablet in the evening. Take with meals. icosapent 2022-0 Yes [id number] 2g Take 2 [facility] nivers ethyL 2-02 capsules ity of (VASCEPA) 1 00:00: by mouth [place] gram 00 in the Medical capsule morning Branch and 2 capsules in the evening. ezetimibe 2022-0 Yes [id number] 10mg Take 1 [facility] todd 10 mg 2-02 tablet by [facility] of tablet 00:00: mouth in [place] 00 the Medical morning. Branch atorvastati 2022-0 Yes [id number] 80mg Take 1 [facility] n 80 mg 2-02 tablet by [facility] of tablet 00:00: mouth at [place] [address] bedtime. Medical Branch isosorbide 2022-0 Yes [id number] 30mg Take 1 [facility] nivers mononitrate 2-02 tablet by [facility] of 30 mg 24 hr 00:00: mouth in [place] tablet 00 the Medical morning. Branch clopidogreL 2022-0 Yes [id number] 75mg Take 1 [facility] 75 mg 2-02 tablet by [facility] of tablet 00:00: mouth in [place] 00 the Medical morning. Branch fenofibrate 2022-0 Yes [id number] 145mg Take 1 [facility] 145 mg 2-02 9109 tablet by [facility] of tablet 00:00: mouth in [place] 00 the Medical morning. Branch lisinopriL 2022-0 Yes [id number] 40mg Take 1 [facility] 40 mg 2-02 tablet by [facility] of tablet 00:00: mouth in [place] 00 the Medical morning. Branch carvediloL 2022-0 Yes [id number] 6.25mg Take 1 [facility] 6.25 mg 2-02 tablet by [facility] of tablet 00:00: mouth in [place] 00 the Medical morning Branch and 1 tablet in the evening. Take with meals. icosapent 2022-0 Yes [id number] 2g Take 2 [facility] nivers ethyL 2-02 capsules ity of (VASCEPA) 1 00:00: by mouth [place] gram 00 in the Medical capsule morning Branch and 2 capsules in the evening. ezetimibe 2022-0 Yes [id number] 10mg Take 1 [facility] todd 10 mg 2-02 tablet by [facility] of tablet 00:00: mouth in [place] 00 the Medical morning. Branch atorvastati 2022-0 Yes [id number] 80mg Take 1 [facility] n 80 mg 2-02 tablet by [facility] of tablet 00:00: mouth at [place] 00 bedtime. Medical Branch isosorbide 3-0 Yes [id number] 30mg Take 1 [facility] nivers mononitrate 2-02 tablet by [facility] of 30 mg 24 hr 00:00: mouth in [place] tablet 00 the Medical morning. Branch clopidogreL 2022-0 Yes [id number] 75mg Take 1 [facility] 75 mg 2-02 tablet by [facility] of tablet 00:00: mouth in [place] 00 the Medical morning. Branch fenofibrate 3-0 Yes [id number] 145mg Take 1 [facility] 145 mg 2-02 9109 tablet by [facility] of tablet 00:00: mouth in [place] 00 the Medical morning. Branch lisinopriL 2023-0 Yes [id number] 40mg Take 1 [facility] 40 mg 2-02 tablet by [facility] of tablet 00:00: mouth in [place] 00 the Medical morning. Branch carvediloL 2022-0 Yes [id number] 6.25mg Take 1 [facility] 6.25 mg 2-02 tablet by [facility] of tablet 00:00: mouth in [place] 00 the Medical morning Branch and 1 tablet in the evening. Take with meals. icosapent 2022-0 Yes [id number] 2g Take 2 [facility] nivers ethyL 2-02 capsules ity of (VASCEPA) 1 00:00: by mouth [place] gram 00 in the Medical capsule morning Branch and 2 capsules in the evening. ezetimibe 2022-0 Yes [id number] 10mg Take 1 [facility] todd 10 mg 2-02 tablet by [facility] of tablet 00:00: mouth in [place] 00 the Medical morning. Branch atorvastati 2022-0 Yes [id number] 80mg Take 1 [facility] n 80 mg 2-02 tablet by [facility] of tablet 00:00: mouth at [place] [address] bedtime. Medical Branch isosorbide 2022-0 Yes [id number] 30mg Take 1 [facility] nivers mononitrate 2-02 tablet by [facility] of 30 mg 24 hr 00:00: mouth in [place] tablet 00 the Medical morning. Branch clopidogreL 2022-0 Yes [id number] 75mg Take 1 [facility] 75 mg 2-02 tablet by [facility] of tablet 00:00: mouth in [place] 00 the Medical morning. Branch fenofibrate 2022-0 Yes [id number] 145mg Take 1 [facility] 145 mg 2-02 9109 tablet by [facility] of tablet 00:00: mouth in [place] 00 the Medical morning. Branch lisinopriL 2022-0 Yes [id number] 40mg Take 1 [facility] 40 mg 2-02 tablet by [facility] of tablet 00:00: mouth in [place] 00 the Medical morning. Branch carvediloL 2022-0 Yes [id number] 6.25mg Take 1 [facility] 6.25 mg 2-02 tablet by [facility] of tablet 00:00: mouth in [place] 00 the Medical morning Branch and 1 tablet in the evening. Take with meals. icosapent 2022-0 Yes [id number] 2g Take 2 [facility] nivers ethyL 2-02 capsules ity of (VASCEPA) 1 00:00: by mouth [place] gram 00 in the Medical capsule morning Branch and 2 capsules in the evening. ezetimibe 2022-0 Yes [id number] 10mg Take 1 [facility] todd 10 mg 2-02 tablet by [facility] of tablet 00:00: mouth in [place] 00 the Medical morning. Branch atorvastati 2022-0 Yes [id number] 80mg Take 1 [facility] n 80 mg 2-02 tablet by [facility] of tablet 00:00: mouth at [place] [address] bedtime. Medical Branch isosorbide 2022-0 Yes [id number] 30mg Take 1 [facility] nivers mononitrate 2-02 tablet by [facility] of 30 mg 24 hr 00:00: mouth in [place] tablet 00 the Medical morning. Branch clopidogreL 2022-0 Yes [id number] 75mg Take 1 [facility] 75 mg 2-02 tablet by [facility] of tablet 00:00: mouth in [place] 00 the Medical morning. Branch fenofibrate 2022-0 Yes [id number] 145mg Take 1 [facility] 145 mg 2-02 9109 tablet by [facility] of tablet 00:00: mouth in [place] 00 the Medical morning. Branch lisinopriL 2022-0 Yes [id number] 40mg Take 1 [facility] 40 mg 2-02 tablet by [facility] of tablet 00:00: mouth in [place] 00 the Medical morning. Branch carvediloL 2022-0 Yes [id number] 6.25mg Take 1 [facility] 6.25 mg 2-02 tablet by [facility] of tablet 00:00: mouth in [place] 00 the Medical morning Branch and 1 tablet in the evening. Take with meals. icosapent 2022-0 Yes [id number] 2g Take 2 [facility] nivers ethyL 2-02 capsules ity of (VASCEPA) 1 00:00: by mouth [place] gram 00 in the Medical capsule morning Branch and 2 capsules in the evening. ezetimibe 2022-0 Yes [id number] 10mg Take 1 [facility] todd 10 mg 2-02 tablet by [facility] of tablet 00:00: mouth in [place] 00 the Medical morning. Branch atorvastati 2022-0 Yes [id number] 80mg Take 1 [facility] n 80 mg 2-02 tablet by [facility] of tablet 00:00: mouth at [place] [address] bedtime. Medical Branch isosorbide 2022-0 Yes [id number] 30mg Take 1 [facility] nivers mononitrate 2-02 tablet by [facility] of 30 mg 24 hr 00:00: mouth in [place] tablet 00 the Medical morning. Branch clopidogreL 2022-0 Yes [id number] 75mg Take 1 [facility] 75 mg 2-02 tablet by [facility] of tablet 00:00: mouth in [place] 00 the Medical morning. Branch fenofibrate 2022-0 Yes [id number] 145mg Take 1 [facility] 145 mg 2-02 9109 tablet by [facility] of tablet 00:00: mouth in [place] 00 the Medical morning. Branch lisinopriL 2022-0 Yes [id number] 40mg Take 1 [facility] 40 mg 2-02 tablet by [facility] of tablet 00:00: mouth in [place] 00 the Medical morning. Branch carvediloL 2022-0 Yes [id number] 6.25mg Take 1 [facility] 6.25 mg 2-02 tablet by [facility] of tablet 00:00: mouth in [place] 00 the Medical morning Branch and 1 tablet in the evening. Take with meals. icosapent 2022-0 Yes [id number] 2g Take 2 [facility] nivers ethyL 2-02 capsules ity of (VASCEPA) 1 00:00: by mouth [place] gram 00 in the Medical capsule morning Branch and 2 capsules in the evening. ezetimibe 2022-0 Yes [id number] 10mg Take 1 [facility] todd 10 mg 2-02 tablet by [facility] of tablet 00:00: mouth in [place] 00 the Medical morning. Branch atorvastati 2022-0 Yes [id number] 80mg Take 1 [facility] n 80 mg 2-02 tablet by [facility] of tablet 00:00: mouth at [place] [address] bedtime. Medical Branch isosorbide 2022-0 Yes [id number] 30mg Take 1 [facility] nivers mononitrate 2-02 tablet by [facility] of 30 mg 24 hr 00:00: mouth in [place] tablet 00 the Medical morning. Branch clopidogreL 2022-0 Yes [id number] 75mg Take 1 [facility] 75 mg 2-02 tablet by [facility] of tablet 00:00: mouth in [place] 00 the Medical morning. Branch fenofibrate 3-0 Yes [id number] 145mg Take 1 [facility] 145 mg 2-02 9109 tablet by [facility] of tablet 00:00: mouth in [place] 00 the Medical morning. Branch lisinopriL 2022-0 Yes [id number] 40mg Take 1 [facility] 40 mg 2-02 tablet by [facility] of tablet 00:00: mouth in [place] 00 the Medical morning. Branch carvediloL 2022-0 Yes [id number] 6.25mg Take 1 [facility] 6.25 mg 2-02 tablet by [facility] of tablet 00:00: mouth in [place] 00 the Medical morning Branch and 1 tablet in the evening. Take with meals. icosapent 2022-0 Yes [id number] 2g Take 2 [facility] nivers ethyL 2-02 capsules ity of (VASCEPA) 1 00:00: by mouth [place] gram 00 in the Medical capsule morning Branch and 2 capsules in the evening. ezetimibe 2022-0 Yes [id number] 10mg Take 1 [facility] todd 10 mg 2-02 tablet by [facility] of tablet 00:00: mouth in [place] 00 the Medical morning. Branch atorvastati 2022-0 Yes [id number] 80mg Take 1 [facility] n 80 mg 2-02 tablet by [facility] of tablet 00:00: mouth at [place] [address] bedtime. Medical Branch isosorbide 2022-0 Yes [id number] 30mg Take 1 [facility] nivers mononitrate 2-02 tablet by [facility] of 30 mg 24 hr 00:00: mouth in [place] tablet 00 the Medical morning. Branch clopidogreL 2022-0 Yes [id number] 75mg Take 1 [facility] 75 mg 2-02 tablet by [facility] of tablet 00:00: mouth in [place] 00 the Medical morning. Branch fenofibrate 2022-0 Yes [id number] 145mg Take 1 [facility] 145 mg 2-02 9109 tablet by [facility] of tablet 00:00: mouth in [place] the Medical morning. Branch lisinopriL 2022-0 Yes [id number] 40mg Take 1 [facility] 40 mg 2-02 tablet by [facility] of tablet 00:00: mouth in [place] 00 the Medical morning. Branch carvediloL 2022-0 Yes [id number] 6.25mg Take 1 [facility] 6.25 mg 2-02 tablet by [facility] of tablet 00:00: mouth in [place] 00 the Medical morning Branch and 1 tablet in the evening. Take with meals. icosapent 2022-0 Yes [id number] 2g Take 2 [facility] nivers ethyL 2-02 capsules ity of (VASCEPA) 1 00:00: by mouth [place] gram 00 in the Medical capsule morning Branch and 2 capsules in the evening. ezetimibe 2022-0 Yes [id number] 10mg Take 1 [facility] todd 10 mg 2-02 tablet by [facility] of tablet 00:00: mouth in [place] 00 the Medical morning. Branch atorvastati 2022-0 Yes [id number] 80mg Take 1 [facility] n 80 mg 2-02 tablet by [facility] of tablet 00:00: mouth at [place] [address] bedtime. Medical Branch isosorbide 2022-0 Yes [id number] 30mg Take 1 [facility] nivers mononitrate 2-02 tablet by [facility] of 30 mg 24 hr 00:00: mouth in [place] tablet 00 the Medical morning. Branch clopidogreL 2022-0 Yes [id number] 75mg Take 1 [facility] 75 mg 2-02 tablet by [facility] of tablet 00:00: mouth in [place] 00 the Medical morning. Branch fenofibrate 2022-0 Yes [id number] 145mg Take 1 [facility] 145 mg 2-02 9109 tablet by [facility] of tablet 00:00: mouth in [place] 00 the Medical morning. Branch lisinopriL 2022-0 Yes [id number] 40mg Take 1 [facility] 40 mg 2-02 tablet by [facility] of tablet 00:00: mouth in [place] 00 the Medical morning. Branch carvediloL 2022-0 Yes [id number] 6.25mg Take 1 [facility] 6.25 mg 2-02 tablet by [facility] of tablet 00:00: mouth in [place] 00 the Medical morning Branch and 1 tablet in the evening. Take with meals. icosapent 2022-0 Yes [id number] 2g Take 2 [facility] nivers ethyL 2-02 capsules ity of (VASCEPA) 1 00:00: by mouth [place] gram 00 in the Medical capsule morning Branch and 2 capsules in the evening. ezetimibe 2022-0 Yes [id number] 10mg Take 1 [facility] todd 10 mg 2-02 tablet by [facility] of tablet 00:00: mouth in [place] 00 the Medical morning. Branch atorvastati 2022-0 Yes [id number] 80mg Take 1 [facility] n 80 mg 2-02 tablet by [facility] of tablet 00:00: mouth at [place] [address] bedtime. Medical Branch isosorbide 2022-0 Yes [id number] 30mg Take 1 [facility] nivers mononitrate 2-02 tablet by [facility] of 30 mg 24 hr 00:00: mouth in [place] tablet 00 the Medical morning. Branch clopidogreL 2022-0 Yes [id number] 75mg Take 1 [facility] 75 mg 2-02 tablet by [facility] of tablet 00:00: mouth in [place] 00 the Medical morning. Branch fenofibrate 2022-0 Yes [id number] 145mg Take 1 [facility] 145 mg 2-02 9109 tablet by [facility] of tablet 00:00: mouth in [place] 00 the Medical morning. Branch lisinopriL 2022-0 Yes [id number] 40mg Take 1 [facility] 40 mg 2-02 tablet by [facility] of tablet 00:00: mouth in [place] 00 the Medical morning. Branch carvediloL 2022-0 Yes [id number] 6.25mg Take 1 [facility] 6.25 mg 2-02 tablet by [facility] of tablet 00:00: mouth in [place] 00 the Medical morning Branch and 1 tablet in the evening. Take with meals. icosapent 2022-0 Yes [id number] 2g Take 2 [facility] nivers ethyL 2-02 capsules ity of (VASCEPA) 1 00:00: by mouth [place] gram 00 in the Medical capsule morning Branch and 2 capsules in the evening. ezetimibe 2022-0 Yes [id number] 10mg Take 1 [facility] todd 10 mg 2-02 tablet by [facility] of tablet 00:00: mouth in [place] 00 the Medical morning. Branch atorvastati 2022-0 Yes [id number] 80mg Take 1 [facility] n 80 mg 2-02 tablet by [facility] of tablet 00:00: mouth at [place] 00 bedtime. Medical Branch isosorbide 2022-0 Yes [id number] 30mg Take 1 [facility] nivers mononitrate 2-02 tablet by [facility] of 30 mg 24 hr 00:00: mouth in [place] tablet 00 the Medical morning. Branch clopidogreL 2022-0 Yes [id number] 75mg Take 1 [facility] 75 mg 2-02 tablet by [facility] of tablet 00:00: mouth in [place] 00 the Medical morning. Branch fenofibrate 2022-0 Yes [id number] 145mg Take 1 [facility] 145 mg 2-02 9109 tablet by [facility] of tablet 00:00: mouth in [place] 00 the Medical morning. Branch icosapent 2022-0 Yes [id number] 2g Take 2 [facility] nivers ethyL 2-02 capsules ity of (VASCEPA) 1 00:00: by mouth [place] gram 00 in the Medical capsule morning Branch and 2 capsules in the evening. ezetimibe 3-0 Yes [id number] 10mg Take 1 Un todd 10 mg 2-02 tablet by [facility] of tablet 00:00: mouth in [place] 00 the Medical morning. Branch atorvastati 3-0 Yes [id number] 80mg Take 1 [facility] n 80 mg 2-02 tablet by [facility] of tablet 00:00: mouth at [place] [address] bedtime. Medical Branch isosorbide 3-0 Yes [id number] 30mg Take 1 [facility] nivers mononitrate 2-02 tablet by [facility] of 30 mg 24 hr 00:00: mouth in [place] tablet 00 the Medical morning. Branch clopidogreL 2022-0 Yes [id number] 75mg Take 1 [facility] 75 mg 2-02 tablet by [facility] of tablet 00:00: mouth in [place] 00 the Medical morning. Branch fenofibrate 2022-0 Yes [id number] 145mg Take 1 [facility] 145 mg 2-02 9109 tablet by [facility] of tablet 00:00: mouth in [place] 00 the Medical morning. Branch icosapent 2022-0 Yes [id number] 2g Take 2 U nivers ethyL 2-02 capsules ity of (VASCEPA) 1 00:00: by mouth [place] gram 00 in the Medical capsule morning Branch and 2 capsules in the evening. ezetimibe 3-0 Yes [id number] 10mg Take 1 Un todd 10 mg 2-02 tablet by [facility] of tablet 00:00: mouth in [place] 00 the Medical morning. Branch atorvastati 3-0 Yes [id number] 80mg Take 1 [facility] n 80 mg 2-02 tablet by [facility] of tablet 00:00: mouth at [place] [address] bedtime. Medical Branch isosorbide 3-0 Yes [id number] 30mg Take 1 [facility] nivers mononitrate 2-02 tablet by [facility] of 30 mg 24 hr 00:00: mouth in [place] tablet 00 the Medical morning. Branch clopidogreL 3-0 Yes [id number] 75mg Take 1 [facility] 75 mg 2-02 tablet by [facility] of tablet 00:00: mouth in [place] 00 the Medical morning. Branch fenofibrate 3-0 Yes [id number] 145mg Take 1 [facility] 145 mg 2-02 9109 tablet by [facility] of tablet 00:00: mouth in [place] 00 the Medical morning. Branch icosapent 2022-0 Yes [id number] 2g Take 2 U nivers ethyL 2-02 capsules ity of (VASCEPA) 1 00:00: by mouth [place] gram 00 in the Medical capsule morning Branch and 2 capsules in the evening. ezetimibe 3-0 Yes [id number] 10mg Take 1 Un todd 10 mg 2-02 tablet by [facility] of tablet 00:00: mouth in [place] 00 the Medical morning. Branch atorvastati 3-0 Yes [id number] 80mg Take 1 [facility] n 80 mg 2-02 tablet by [facility] of tablet 00:00: mouth at [place] [address] bedtime. Medical Branch isosorbide 3-0 Yes [id number] 30mg Take 1 [facility] mononitrate 2-02 tablet by [facility] 30 mg 24 hr 00:00: mouth in [place] tablet the Medical morning. Branch clopidogreL 2022-0 Yes [id number] 75mg Take 1 [facility] 75 mg 2-02 tablet by [facility] tablet 00:00: mouth in [place] the Medical morning. Branch fenofibrate 2022-0 Yes [id number] 145mg Take 1 [facility] 145 mg 2-02 9109 tablet by [facility] tablet 00:00: mouth in [place] the Medical morning. Branch icosapent 2022-0 Yes [id number] 2g Take 2 [facility] n[facility] ethyL 2-02 capsules [facility] of (VASCEPA) 1 00:00: by mouth [place] gram 00 in the Medical capsule morning Branch and 2 capsules in the evening. ezetimibe 3-0 Yes [id number] 10mg Take 1 [facility] todd 10 mg 2-02 tablet by [facility] tablet 00:00: mouth in [place] 00 the Medical morning. Branch atorvastati 3-0 Yes [id number] 80mg Take 1 [facility] n 80 mg 2-02 tablet by [facility] tablet 00:00: mouth at [place] [address] bedtime. Medical Branch isosorbide 3-0 Yes [id number] 30mg Take 1 [facility] mononitrate 2-02 tablet by [facility] 30 mg 24 hr 00:00: mouth in [place] tablet 00 the Medical morning. Branch clopidogreL 3-0 Yes [id number] 75mg Take 1 [facility] 75 mg 2-02 tablet by [facility] tablet 00:00: mouth in [place] 00 the Medical morning. Branch fenofibrate 3-0 Yes [id number] 145mg Take 1 [facility] 145 mg 2-02 9109 tablet by [facility] tablet 00:00: mouth in [place] 00 the Medical morning. Branch icosapent 3-0 Yes [id number] 2g Take 2 [facility] n[facility] ethyL 2-02 capsules [facility] of (VASCEPA) 1 00:00: by mouth [place] gram 00 in the Medical capsule morning Branch and 2 capsules in the evening. ezetimibe 3-0 Yes [id number] 10mg Take 1 [facility] 10 mg 2-02 tablet by [facility] tablet 00:00: mouth in [place] 00 the Medical morning. Branch atorvastati 3-0 Yes [id number] 80mg Take 1 [facility] n 80 mg 2-02 tablet by [facility] tablet 00:00: mouth at [place] [address] bedtime. Medical Branch isosorbide 3-0 Yes [id number] 30mg Take 1 [facility] mononitrate 2-02 tablet by [facility] 30 mg 24 hr 00:00: mouth in [place] tablet 00 the Medical morning. Branch clopidogreL 2022-0 Yes [id number] 75mg Take 1 [facility] 75 mg 2-02 tablet by [facility] tablet 00:00: mouth in [place] 00 the Medical morning. Branch fenofibrate 3-0 Yes [id number] 145mg Take 1 [facility] 145 mg 2-02 9109 tablet by [facility] tablet 00:00: mouth in [place] 00 the Medical morning. Branch icosapent 3-0 Yes [id number] 2g Take 2 [facility] n[facility] ethyL 2-02 capsules [facility] of (VASCEPA) 1 00:00: by mouth [place] gram 00 in the Medical capsule morning Branch and 2 capsules in the evening. ezetimibe 2023-0 Yes [id number] 10mg Take 1 [facility] 10 mg 2-02 tablet by [facility] tablet 00:00: mouth in [place] 00 the Medical morning. Branch atorvastati 3-0 Yes [id number] 80mg Take 1 [facility] n 80 mg 2-02 tablet by [facility] of tablet 00:00: mouth at [place] [address] bedtime. Medical Branch isosorbide 2023-0 Yes [id number] 30mg Take 1 [facility] mononitrate 2-02 tablet by [facility] 30 mg 24 hr 00:00: mouth in [place] tablet 00 the Medical morning. Branch clopidogreL 3-0 Yes [id number] 75mg Take 1 [facility] 75 mg 2-02 tablet by [facility] tablet 00:00: mouth in [place] 00 the Medical morning. Branch fenofibrate 3-0 Yes [id number] 145mg Take 1 [facility] 145 mg 2-02 9109 tablet by [facility] tablet 00:00: mouth in [place] 00 the Medical morning. Branch icosapent 3-0 Yes [id number] 2g Take 2 [facility] ethyL 2-02 capsules [facility] of (VASCEPA) 1 00:00: by mouth [place] gram 00 in the Medical capsule morning Branch and 2 capsules in the evening. ezetimibe 3-0 Yes [id number] 10mg Take 1 [facility] 10 mg 2-02 tablet by [facility] of tablet 00:00: mouth in [place] 00 the Medical morning. Branch atorvastati 3-0 Yes [id number] 80mg Take 1 [facility] n 80 mg 2-02 tablet by [facility] of tablet 00:00: mouth at [place] [address] bedtime. Medical Branch isosorbide 3-0 Yes [id number] 30mg Take 1 [facility] mononitrate 2-02 tablet by [facility] 30 mg 24 hr 00:00: mouth in [place] tablet 00 the Medical morning. Branch clopidogreL 3-0 Yes [id number] 75mg Take 1 [facility] 75 mg 2-02 tablet by [facility] tablet 00:00: mouth in [place] 00 the Medical morning. Branch fenofibrate 3-0 Yes [id number] 145mg Take 1 [facility] 145 mg 2-02 9109 tablet by [facility] tablet 00:00: mouth in [place] 00 the Medical morning. Branch icosapent 3-0 Yes [id number] 2g Take 2 [facility] ethyL 2-02 capsules [facility] of (VASCEPA) 1 00:00: by mouth [place] gram 00 in the Medical capsule morning Branch and 2 capsules in the evening. ezetimibe 2023-0 Yes [id number] 10mg Take 1 [facility] todd 10 mg 2-02 tablet by [facility] of tablet 00:00: mouth in [place] 00 the Medical morning. Branch atorvastati 3-0 Yes [id number] 80mg Take 1 [facility] n 80 mg 2-02 tablet by [facility] of tablet 00:00: mouth at [place] [address] bedtime. Medical Branch isosorbide 3-0 Yes [id number] 30mg Take 1 [facility] mononitrate 2-02 tablet by [facility] 30 mg 24 hr 00:00: mouth in [place] tablet 00 the Medical morning. Branch clopidogreL 3-0 Yes [id number] 75mg Take 1 [facility] 75 mg 2-02 tablet by [facility] tablet 00:00: mouth in [place] 00 the Medical morning. Branch fenofibrate 2022-0 Yes [id number] 145mg Take 1 [facility] 145 mg 2-02 9109 tablet by [facility] tablet 00:00: mouth in [place] 00 the Medical morning. Branch icosapent 2022-0 Yes [id number] 2g Take 2 [facility] n[facility] ethyL 2-02 capsules [facility] of (VASCEPA) 1 00:00: by mouth [place] gram 00 in the Medical capsule morning Branch and 2 capsules in the evening. ezetimibe 2022-0 Yes [id number] 10mg Take 1 [facility] 10 mg 2-02 tablet by [facility] tablet 00:00: mouth in [place] the Medical morning. Branch atorvastati 3-0 Yes [id number] 80mg Take 1 [facility] n 80 mg 2-02 tablet by [facility] of tablet 00:00: mouth at [place] [address] bedtime. Medical Branch isosorbide 3-0 Yes [id number] 30mg Take 1 [facility] mononitrate 2-02 tablet by [facility] 30 mg 24 hr 00:00: mouth in [place] tablet 00 the Medical morning. Branch clopidogreL 3-0 Yes [id number] 75mg Take 1 [facility] 75 mg 2-02 tablet by [facility] of tablet 00:00: mouth in [place] 00 the Medical morning. Branch fenofibrate 3-0 Yes [id number] 145mg Take 1 [facility] 145 mg 2-02 9109 tablet by [facility] tablet 00:00: mouth in [place] 00 the Medical morning. Branch icosapent 2022-0 Yes [id number] 2g Take 2 [facility] n[facility] ethyL 2-02 capsules [facility] of (VASCEPA) 1 00:00: by mouth [place] gram 00 in the Medical capsule morning Branch and 2 capsules in the evening. ezetimibe 3-0 Yes [id number] 10mg Take 1 [facility] todd 10 mg 2-02 tablet by [facility] of tablet 00:00: mouth in [place] 00 the Medical morning. Branch atorvastati 3-0 Yes [id number] 80mg Take 1 [facility] n 80 mg 2-02 tablet by [facility] of tablet 00:00: mouth at [place] [address] bedtime. Medical Branch isosorbide 3-0 Yes [id number] 30mg Take 1 [facility] mononitrate 2-02 tablet by [facility] of 30 mg 24 hr 00:00: mouth in [place] tablet 00 the Medical morning. Branch clopidogreL 3-0 Yes [id number] 75mg Take 1 [facility] 75 mg 2-02 tablet by [facility] tablet 00:00: mouth in [place] 00 the Medical morning. Branch fenofibrate 3-0 Yes [id number] 145mg Take 1 [facility] 145 mg 2-02 9109 tablet by [facility] of tablet 00:00: mouth in [place] 00 the Medical morning. Branch icosapent 2022-0 Yes [id number] 2g Take 2 [facility] ethyL 2-02 capsules [facility] of (VASCEPA) 1 00:00: by mouth [place] gram 00 in the Medical capsule morning Branch and 2 capsules in the evening. ezetimibe 3-0 Yes [id number] 10mg Take 1 [facility] todd 10 mg 2-02 tablet by [facility] tablet 00:00: mouth in [place] 00 the Medical morning. Branch atorvastati 3-0 Yes [id number] 80mg Take 1 [facility] n 80 mg 2-02 tablet by [facility] of tablet 00:00: mouth at [place] [address] bedtime. Medical Branch isosorbide 3-0 Yes [id number] 30mg Take 1 [facility] mononitrate 2-02 tablet by [facility] 30 mg 24 hr 00:00: mouth in [place] tablet 00 the Medical morning. Branch clopidogreL 3-0 Yes [id number] 75mg Take 1 [facility] 75 mg 2-02 tablet by [facility] of tablet 00:00: mouth in [place] 00 the Medical morning. Branch fenofibrate 3-0 Yes [id number] 145mg Take 1 [facility] 145 mg 2-02 9109 tablet by [facility] of tablet 00:00: mouth in [place] 00 the Medical morning. Branch icosapent 3-0 Yes [id number] 2g Take 2 [facility] ethyL 2-02 capsules [facility] of (VASCEPA) 1 00:00: by mouth [place] gram 00 in the Medical capsule morning Branch and 2 capsules in the evening. ezetimibe 3-0 Yes [id number] 10mg Take 1 [facility] todd 10 mg 2-02 tablet by [facility] of tablet 00:00: mouth in [place] 00 the Medical morning. Branch atorvastati 3-0 Yes [id number] 80mg Take 1 [facility] n 80 mg 2-02 tablet by [facility] of tablet 00:00: mouth at [place] [address] bedtime. Medical Branch isosorbide 3-0 Yes [id number] 30mg Take 1 [facility] mononitrate 2-02 tablet by [facility] 30 mg 24 hr 00:00: mouth in [place] tablet 00 the Medical morning. Branch clopidogreL 2022-0 Yes [id number] 75mg Take 1 [facility] 75 mg 2-02 tablet by [facility] of tablet 00:00: mouth in [place] the Medical morning. Branch fenofibrate 2022-0 Yes [id number] 145mg Take 1 [facility] 145 mg 2-02 9109 tablet by [facility] of tablet 00:00: mouth in [place] the Medical morning. Branch icosapent 2022-0 Yes [id number] 2g Take 2 [facility] n[facility] ethyL 2-02 capsules [facility] of (VASCEPA) 1 00:00: by mouth [place] gram 00 in the Medical capsule morning Branch and 2 capsules in the evening. ezetimibe 3-0 Yes [id number] 10mg Take 1 [facility] todd 10 mg 2-02 tablet by [facility] of tablet 00:00: mouth in [place] 00 the Medical morning. Branch atorvastati 3-0 Yes [id number] 80mg Take 1 [facility] n 80 mg 2-02 tablet by [facility] of tablet 00:00: mouth at [place] [address] bedtime. Medical Branch isosorbide 3-0 Yes [id number] 30mg Take 1 [facility] mononitrate 2-02 tablet by [facility] of 30 mg 24 hr 00:00: mouth in [place] tablet 00 the Medical morning. Branch clopidogreL 3-0 Yes [id number] 75mg Take 1 [facility] 75 mg 2-02 tablet by [facility] of tablet 00:00: mouth in [place] 00 the Medical morning. Branch fenofibrate 2022-0 Yes [id number] 145mg Take 1 [facility] 145 mg 2-02 9109 tablet by [facility] of tablet 00:00: mouth in [place] 00 the Medical morning. Branch icosapent 2022-0 Yes [id number] 2g Take 2 [facility] n[facility] ethyL 2-02 capsules ity of (VASCEPA) 1 00:00: by mouth [place] gram 00 in the Medical capsule morning Branch and 2 capsules in the evening. ezetimibe 2022-0 Yes [id number] 10mg Take 1 [facility] todd 10 mg 2-02 tablet by [facility] of tablet 00:00: mouth in [place] 00 the Medical morning. Branch atorvastati 3-0 Yes [id number] 80mg Take 1 [facility] n 80 mg 2-02 tablet by [facility] of tablet 00:00: mouth at [place] [address] bedtime. Medical Branch isosorbide 3-0 Yes [id number] 30mg Take 1 [facility] n[facility] mononitrate 2-02 tablet by [facility] of 30 mg 24 hr 00:00: mouth in [place] tablet 00 the Medical morning. Branch clopidogreL 2022-0 Yes [id number] 75mg Take 1 [facility] 75 mg 2-02 tablet by [facility] of tablet 00:00: mouth in [place] 00 the Medical morning. Branch fenofibrate 2022-0 Yes [id number] 145mg Take 1 [facility] 145 mg 2-02 9109 tablet by [facility] of tablet 00:00: mouth in [place] 00 the Medical morning. Branch icosapent 2022-0 Yes [id number] 2g Take 2 [facility] nivers ethyL 2-02 capsules it[facility] of (VASCEPA) 1 00:00: by mouth [place] gram 00 in the Medical capsule morning Branch and 2 capsules in the evening. ezetimibe 3-0 Yes [id number] 10mg Take 1 [facility] todd 10 mg 2-02 tablet by [facility] of tablet 00:00: mouth in [place] 00 the Medical morning. Branch atorvastati 3-0 Yes [id number] 80mg Take 1 [facility] n 80 mg 2-02 tablet by [facility] of tablet 00:00: mouth at [place] [address] bedtime. Medical Branch isosorbide 3-0 Yes [id number] 30mg Take 1 [facility] n[facility] mononitrate 2-02 tablet by [facility] of 30 mg 24 hr 00:00: mouth in [place] tablet 00 the Medical morning. Branch clopidogreL 3-0 Yes [id number] 75mg Take 1 [facility] 75 mg 2-02 tablet by [facility] of tablet 00:00: mouth in [place] 00 the Medical morning. Branch fenofibrate 3-0 Yes [id number] 145mg Take 1 [facility] 145 mg 2-02 9109 tablet by [facility] of tablet 00:00: mouth in [place] 00 the Medical morning. Branch icosapent 3-0 Yes [id number] 2g Take 2 [facility] nivers ethyL 2-02 capsules ity of (VASCEPA) 1 00:00: by mouth [place] gram 00 in the Medical capsule morning Branch and 2 capsules in the evening. ezetimibe 3-0 Yes [id number] 10mg Take 1 [facility] todd 10 mg 2-02 tablet by [facility] of tablet 00:00: mouth in [place] 00 the Medical morning. Branch atorvastati 3-0 Yes [id number] 80mg Take 1 [facility] n 80 mg 2-02 tablet by [facility] of tablet 00:00: mouth at [place] 00 bedtime. Medical Branch isosorbide 3-0 Yes [id number] 30mg Take 1 [facility] n[facility] mononitrate 2-02 tablet by [facility] of 30 mg 24 hr 00:00: mouth in [place] tablet 00 the Medical morning. Branch clopidogreL 3-0 Yes [id number] 75mg Take 1 [facility] 75 mg 2-02 tablet by [facility] of tablet 00:00: mouth in [place] 00 the Medical morning. Branch fenofibrate 3-0 Yes [id number] 145mg Take 1 [facility] 145 mg 2-02 9109 tablet by [facility] of tablet 00:00: mouth in [place] 00 the Medical morning. Branch icosapent 3-0 Yes [id number] 2g Take 2 [facility] nivers ethyL 2-02 capsules ity of (VASCEPA) 1 00:00: by mouth [place] gram 00 in the Medical capsule morning Branch and 2 capsules in the evening. ezetimibe 2023-0 Yes [id number] 10mg Take 1 [facility] todd 10 mg 2-02 tablet by [facility] of tablet 00:00: mouth in [place] 00 the Medical morning. Branch atorvastati 3-0 Yes [id number] 80mg Take 1 [facility] n 80 mg 2-02 tablet by [facility] of tablet 00:00: mouth at [place] [address] bedtime. Medical Branch isosorbide 2023-0 Yes [id number] 30mg Take 1 [facility] n[facility] mononitrate 2-02 tablet by [facility] of 30 mg 24 hr 00:00: mouth in [place] tablet 00 the Medical morning. Branch clopidogreL 3-0 Yes [id number] 75mg Take 1 [facility] 75 mg 2-02 tablet by [facility] of tablet 00:00: mouth in [place] 00 the Medical morning. Branch fenofibrate 3-0 Yes [id number] 145mg Take 1 [facility] 145 mg 2-02 9109 tablet by [facility] of tablet 00:00: mouth in [place] 00 the Medical morning. Branch icosapent 3-0 Yes [id number] 2g Take 2 [facility] nivers ethyL 2-02 capsules ity of (VASCEPA) 1 00:00: by mouth [place] gram 00 in the Medical capsule morning Branch and 2 capsules in the evening. ezetimibe 3-0 Yes [id number] 10mg Take 1 [facility] todd 10 mg 2-02 tablet by [facility] of tablet 00:00: mouth in [place] 00 the Medical morning. Branch atorvastati 3-0 Yes [id number] 80mg Take 1 [facility] n 80 mg 2-02 tablet by [facility] of tablet 00:00: mouth at [place] [address] bedtime. Medical Branch isosorbide 3-0 Yes [id number] 30mg Take 1 [facility] n[facility] mononitrate 2-02 tablet by [facility] of 30 mg 24 hr 00:00: mouth in [place] tablet 00 the Medical morning. Branch clopidogreL 3-0 Yes [id number] 75mg Take 1 [facility] 75 mg 2-02 tablet by [facility] of tablet 00:00: mouth in [place] 00 the Medical morning. Branch fenofibrate 3-0 Yes [id number] 145mg Take 1 [facility] 145 mg 2-02 9109 tablet by [facility] of tablet 00:00: mouth in [place] 00 the Medical morning. Branch icosapent 3-0 Yes [id number] 2g Take 2 [facility] nivers ethyL 2-02 capsules ity of (VASCEPA) 1 00:00: by mouth [place] gram 00 in the Medical capsule morning Branch and 2 capsules in the evening. ezetimibe 2023-0 Yes [id number] 10mg Take 1 [facility] todd 10 mg 2-02 tablet by [facility] of tablet 00:00: mouth in [place] 00 the Medical morning. Branch atorvastati 3-0 Yes [id number] 80mg Take 1 [facility] n 80 mg 2-02 tablet by [facility] of tablet 00:00: mouth at [place] [address] bedtime. Medical Branch isosorbide 2023-0 Yes [id number] 30mg Take 1 [facility] n[facility] mononitrate 2-02 tablet by [facility] of 30 mg 24 hr 00:00: mouth in [place] tablet 00 the Medical morning. Branch clopidogreL 3-0 Yes [id number] 75mg Take 1 [facility] 75 mg 2-02 tablet by [facility] of tablet 00:00: mouth in [place] 00 the Medical morning. Branch fenofibrate 3-0 Yes [id number] 145mg Take 1 [facility] 145 mg 2-02 9109 tablet by [facility] of tablet 00:00: mouth in [place] 00 the Medical morning. Branch icosapent 3-0 Yes [id number] 2g Take 2 [facility] nivers ethyL 2-02 capsules ity of (VASCEPA) 1 00:00: by mouth [place] gram 00 in the Medical capsule morning Branch and 2 capsules in the evening. ezetimibe 3-0 Yes [id number] 10mg Take 1 [facility] todd 10 mg 2-02 tablet by [facility] of tablet 00:00: mouth in [place] 00 the Medical morning. Branch atorvastati 3-0 Yes [id number] 80mg Take 1 [facility] n 80 mg 2-02 tablet by [facility] of tablet 00:00: mouth at [place] [address] bedtime. Medical Branch isosorbide 3-0 Yes [id number] 30mg Take 1 [facility] nivers mononitrate 2-02 tablet by [facility] of 30 mg 24 hr 00:00: mouth in [place] tablet 00 the Medical morning. Branch clopidogreL 3-0 Yes [id number] 75mg Take 1 [facility] 75 mg 2-02 tablet by [facility] of tablet 00:00: mouth in [place] 00 the Medical morning. Branch fenofibrate 3-0 Yes [id number] 145mg Take 1 [facility] 145 mg 2-02 9109 tablet by [facility] of tablet 00:00: mouth in [place] 00 the Medical morning. Branch icosapent 3-0 Yes [id number] 2g Take 2 [facility] nivers ethyL 2-02 capsules ity of (VASCEPA) 1 00:00: by mouth [place] gram 00 in the Medical capsule morning Branch and 2 capsules in the evening. ezetimibe 3-0 Yes [id number] 10mg Take 1 [facility] todd 10 mg 2-02 tablet by [facility] of tablet 00:00: mouth in [place] 00 the Medical morning. Branch atorvastati 3-0 Yes [id number] 80mg Take 1 [facility] n 80 mg 2-02 tablet by [facility] of tablet 00:00: mouth at [place] [address] bedtime. Medical Branch isosorbide 3-0 Yes [id number] 30mg Take 1 [facility] n[facility] mononitrate 2-02 tablet by [facility] of 30 mg 24 hr 00:00: mouth in [place] tablet 00 the Medical morning. Branch clopidogreL 2022-0 Yes [id number] 75mg Take 1 [facility] 75 mg 2-02 tablet by [facility] of tablet 00:00: mouth in [place] 00 the Medical morning. Branch fenofibrate 3-0 Yes [id number] 145mg Take 1 [facility] 145 mg 2-02 9109 tablet by [facility] of tablet 00:00: mouth in [place] 00 the Medical morning. Branch icosapent 2022-0 Yes [id number] 2g Take 2 [facility] nivers ethyL 2-02 capsules ity of (VASCEPA) 1 00:00: by mouth [place] gram 00 in the Medical capsule morning Branch and 2 capsules in the evening. ezetimibe 3-0 Yes [id number] 10mg Take 1 [facility] todd 10 mg 2-02 tablet by [facility] of tablet 00:00: mouth in [place] 00 the Medical morning. Branch atorvastati 3-0 Yes [id number] 80mg Take 1 [facility] n 80 mg 2-02 tablet by [facility] of tablet 00:00: mouth at [place] [address] bedtime. Medical Branch isosorbide 2023-0 Yes [id number] 30mg Take 1 [facility] nivers mononitrate 2-02 tablet by [facility] of 30 mg 24 hr 00:00: mouth in [place] tablet 00 the Medical morning. Branch clopidogreL 3-0 Yes [id number] 75mg Take 1 [facility] 75 mg 2-02 tablet by [facility] of tablet 00:00: mouth in [place] 00 the Medical morning. Branch fenofibrate 3-0 Yes [id number] 145mg Take 1 [facility] 145 mg 2-02 9109 tablet by [facility] of tablet 00:00: mouth in [place] 00 the Medical morning. Branch icosapent 3-0 Yes [id number] 2g Take 2 [facility] nivers ethyL 2-02 capsules ity of (VASCEPA) 1 00:00: by mouth [place] gram 00 in the Medical capsule morning Branch and 2 capsules in the evening. ezetimibe 3-0 Yes [id number] 10mg Take 1 [facility] todd 10 mg 2-02 tablet by [facility] of tablet 00:00: mouth in [place] 00 the Medical morning. Branch atorvastati 3-0 Yes [id number] 80mg Take 1 [facility] n 80 mg 2-02 tablet by [facility] of tablet 00:00: mouth at [place] [address] bedtime. Medical Branch isosorbide 3-0 Yes [id number] 30mg Take 1 [facility] n[facility] mononitrate 2-02 tablet by [facility] of 30 mg 24 hr 00:00: mouth in [place] tablet 00 the Medical morning. Branch clopidogreL 2022-0 Yes [id number] 75mg Take 1 [facility] 75 mg 2-02 tablet by [facility] of tablet 00:00: mouth in [place] 00 the Medical morning. Branch fenofibrate 2022-0 Yes [id number] 145mg Take 1 [facility] 145 mg 2-02 9109 tablet by [facility] of tablet 00:00: mouth in [place] 00 the Medical morning. Branch icosapent 3-0 Yes [id number] 2g Take 2 [facility] n[facility] ethyL 2-02 capsules ity of (VASCEPA) 1 00:00: by mouth [place] gram 00 in the Medical capsule morning Branch and 2 capsules in the evening. ezetimibe 3-0 Yes [id number] 10mg Take 1 [facility] todd 10 mg 2-02 tablet by [facility] of tablet 00:00: mouth in [place] 00 the Medical morning. Branch atorvastati 3-0 Yes [id number] 80mg Take 1 [facility] n 80 mg 2-02 tablet by [facility] of tablet 00:00: mouth at [place] [address] bedtime. Medical Branch isosorbide 2023-0 Yes [id number] 30mg Take 1 [facility] nivers mononitrate 2-02 tablet by [facility] of 30 mg 24 hr 00:00: mouth in [place] tablet 00 the Medical morning. Branch clopidogreL 3-0 Yes [id number] 75mg Take 1 [facility] 75 mg 2-02 tablet by [facility] of tablet 00:00: mouth in [place] 00 the Medical morning. Branch fenofibrate 3-0 Yes [id number] 145mg Take 1 [facility] 145 mg 2-02 9109 tablet by [facility] of tablet 00:00: mouth in [place] 00 the Medical morning. Branch icosapent 3-0 Yes [id number] 2g Take 2 [facility] nivers ethyL 2-02 capsules ity of (VASCEPA) 1 00:00: by mouth [place] gram 00 in the Medical capsule morning Branch and 2 capsules in the evening. ezetimibe 3-0 Yes [id number] 10mg Take 1 [facility] todd 10 mg 2-02 tablet by [facility] of tablet 00:00: mouth in [place] 00 the Medical morning. Branch atorvastati 3-0 Yes [id number] 80mg Take 1 [facility] n 80 mg 2-02 tablet by [facility] of tablet 00:00: mouth at [place] [address] bedtime. Medical Branch isosorbide 3-0 Yes [id number] 30mg Take 1 [facility] nivers mononitrate 2-02 tablet by [facility] of 30 mg 24 hr 00:00: mouth in [place] tablet 00 the Medical morning. Branch clopidogreL 2022-0 Yes [id number] 75mg Take 1 [facility] 75 mg 2-02 tablet by [facility] of tablet 00:00: mouth in [place] 00 the Medical morning. Branch fenofibrate 3-0 Yes [id number] 145mg Take 1 [facility] 145 mg 2-02 9109 tablet by [facility] of tablet 00:00: mouth in [place] 00 the Medical morning. Branch icosapent 3-0 Yes [id number] 2g Take 2 [facility] nivers ethyL 2-02 capsules ity of (VASCEPA) 1 00:00: by mouth [place] gram 00 in the Medical capsule morning Branch and 2 capsules in the evening. ezetimibe 2023-0 Yes [id number] 10mg Take 1 [facility] todd 10 mg 2-02 tablet by [facility] of tablet 00:00: mouth in [place] 00 the Medical morning. Branch atorvastati 3-0 Yes [id number] 80mg Take 1 [facility] n 80 mg 2-02 tablet by [facility] of tablet 00:00: mouth at [place] [address] bedtime. Medical Branch isosorbide 3-0 Yes [id number] 30mg Take 1 [facility] nivers mononitrate 2-02 tablet by [facility] of 30 mg 24 hr 00:00: mouth in [place] tablet 00 the Medical morning. Branch clopidogreL 3-0 Yes [id number] 75mg Take 1 [facility] 75 mg 2-02 tablet by [facility] of tablet 00:00: mouth in [place] 00 the Medical morning. Branch fenofibrate 3-0 Yes [id number] 145mg Take 1 [facility] 145 mg 2-02 9109 tablet by [facility] of tablet 00:00: mouth in [place] 00 the Medical morning. Branch icosapent 3-0 Yes [id number] 2g Take 2 [facility] nivers ethyL 2-02 capsules ity of (VASCEPA) 1 00:00: by mouth [place] gram 00 in the Medical capsule morning Branch and 2 capsules in the evening. ezetimibe 3-0 Yes [id number] 10mg Take 1 [facility] todd 10 mg 2-02 tablet by [facility] of tablet 00:00: mouth in [place] 00 the Medical morning. Branch atorvastati 3-0 Yes [id number] 80mg Take 1 [facility] n 80 mg 2-02 tablet by [facility] of tablet 00:00: mouth at [place] [address] bedtime. Medical Branch isosorbide 3-0 Yes [id number] 30mg Take 1 [facility] nivers mononitrate 2-02 tablet by [facility] of 30 mg 24 hr 00:00: mouth in [place] tablet 00 the Medical morning. Branch clopidogreL 3-0 Yes [id number] 75mg Take 1 [facility] 75 mg 2-02 tablet by [facility] of tablet 00:00: mouth in [place] 00 the Medical morning. Branch fenofibrate 3-0 Yes [id number] 145mg Take 1 [facility] 145 mg 2-02 9109 tablet by [facility] of tablet 00:00: mouth in [place] 00 the Medical morning. Branch icosapent 3-0 Yes [id number] 2g Take 2 [facility] nivers ethyL 2-02 capsules ity of (VASCEPA) 1 00:00: by mouth [place] gram 00 in the Medical capsule morning Branch and 2 capsules in the evening. ezetimibe 3-0 Yes [id number] 10mg Take 1 [facility] todd 10 mg 2-02 tablet by [facility] of tablet 00:00: mouth in [place] 00 the Medical morning. Branch atorvastati 3-0 Yes [id number] 80mg Take 1 [facility] n 80 mg 2-02 tablet by [facility] of tablet 00:00: mouth at [place] [address] bedtime. Medical Branch isosorbide 2023-0 Yes [id number] 30mg Take 1 [facility] nivers mononitrate 2-02 tablet by [facility] of 30 mg 24 hr 00:00: mouth in [place] tablet 00 the Medical morning. Branch clopidogreL 3-0 Yes [id number] 75mg Take 1 [facility] 75 mg 2-02 tablet by [facility] of tablet 00:00: mouth in [place] 00 the Medical morning. Branch fenofibrate 2022-0 Yes [id number] 145mg Take 1 [facility] 145 mg 2-02 9109 tablet by [facility] of tablet 00:00: mouth in [place] 00 the Medical morning. Branch icosapent 2022-0 Yes [id number] 2g Take 2 [facility] nivers ethyL 2-02 capsules ity of (VASCEPA) 1 00:00: by mouth [place] gram 00 in the Medical capsule morning Branch and 2 capsules in the evening. ezetimibe 2022-0 Yes [id number] 10mg Take 1 [facility] todd 10 mg 2-02 tablet by [facility] of tablet 00:00: mouth in [place] 00 the Medical morning. Branch atorvastati 2022-0 Yes [id number] 80mg Take 1 [facility] n 80 mg 2-02 tablet by [facility] of tablet 00:00: mouth at [place] [address] bedtime. Medical Branch isosorbide 3-0 Yes [id number] 30mg Take 1 [facility] nivers mononitrate 2-02 tablet by [facility] of 30 mg 24 hr 00:00: mouth in [place] tablet 00 the Medical morning. Branch clopidogreL 3-0 Yes [id number] 75mg Take 1 [facility] 75 mg 2-02 tablet by [facility] tablet 00:00: mouth in [place] 00 the Medical morning. Branch fenofibrate 3-0 Yes [id number] 145mg Take 1 [facility] 145 mg 2-02 9109 tablet by [facility] tablet 00:00: mouth in [place] 00 the Medical morning. Branch icosapent 3-0 Yes [id number] 2g Take 2 [facility] nivers ethyL 2-02 capsules [facility] of (VASCEPA) 1 00:00: by mouth [place] gram 00 in the Medical capsule morning Branch and 2 capsules in the evening. ezetimibe 3-0 Yes [id number] 10mg Take 1 [facility] todd 10 mg 2-02 tablet by [facility] tablet 00:00: mouth in [place] 00 the Medical morning. Branch atorvastati 2022-0 Yes [id number] 80mg Take 1 [facility] n 80 mg 2-02 tablet by [facility] tablet 00:00: mouth at [place] [address] bedtime. Medical Branch isosorbide 3-0 Yes [id number] 30mg Take 1 [facility] nivers mononitrate 2-02 tablet by [facility] of 30 mg 24 hr 00:00: mouth in [place] tablet 00 the Medical morning. Branch clopidogreL 2022-0 Yes [id number] 75mg Take 1 [facility] 75 mg 2-02 tablet by [facility] tablet 00:00: mouth in [place] 00 the Medical morning. Branch fenofibrate 2022-0 Yes [id number] 145mg Take 1 [facility] 145 mg 2-02 9109 tablet by [facility] tablet 00:00: mouth in [place] 00 the Medical morning. Branch icosapent 2022-0 Yes [id number] 2g Take 2 [facility] nivers ethyL 2-02 capsules it[facility] of (VASCEPA) 1 00:00: by mouth [place] gram 00 in the Medical capsule morning Branch and 2 capsules in the evening. ezetimibe 2022-0 Yes [id number] 10mg Take 1 [facility] todd 10 mg 2-02 tablet by [facility] tablet 00:00: mouth in [place] 00 the Medical morning. Branch atorvastati 3-0 Yes [id number] 80mg Take 1 [facility] n 80 mg 2-02 tablet by [facility] of tablet 00:00: mouth at [place] [address] bedtime. Medical Branch isosorbide 3-0 Yes [id number] 30mg Take 1 [facility] n[facility] mononitrate 2-02 tablet by [facility] of 30 mg 24 hr 00:00: mouth in [place] tablet 00 the Medical morning. Branch clopidogreL 3-0 Yes [id number] 75mg Take 1 [facility] 75 mg 2-02 tablet by [facility] tablet 00:00: mouth in [place] 00 the Medical morning. Branch fenofibrate 2022-0 Yes [id number] 145mg Take 1 [facility] 145 mg 2-02 9109 tablet by [facility] of tablet 00:00: mouth in [place] 00 the Medical morning. Branch icosapent 2022-0 Yes [id number] 2g Take 2 [facility] nivers ethyL 2-02 capsules [facility] of (VASCEPA) 1 00:00: by mouth [place] gram 00 in the Medical capsule morning Branch and 2 capsules in the evening. ezetimibe 2022-0 Yes [id number] 10mg Take 1 [facility] todd 10 mg 2-02 tablet by [facility] tablet 00:00: mouth in [place] 00 the Medical morning. Branch atorvastati 3-0 Yes [id number] 80mg Take 1 [facility] n 80 mg 2-02 tablet by [facility] tablet 00:00: mouth at [place] [address] bedtime. Medical Branch isosorbide 3-0 Yes [id number] 30mg Take 1 [facility] nivers mononitrate 2-02 tablet by [facility] of 30 mg 24 hr 00:00: mouth in [place] tablet 00 the Medical morning. Branch clopidogreL 2022-0 Yes [id number] 75mg Take 1 [facility] 75 mg 2-02 tablet by [facility] tablet 00:00: mouth in [place] 00 the Medical morning. Branch fenofibrate 2022-0 Yes [id number] 145mg Take 1 [facility] 145 mg 2-02 9109 tablet by [facility] tablet 00:00: mouth in [place] 00 the Medical morning. Branch icosapent 2022-0 Yes [id number] 2g Take 2 [facility] n[facility] ethyL 2-02 capsules [facility] of (VASCEPA) 1 00:00: by mouth [place] gram 00 in the Medical capsule morning Branch and 2 capsules in the evening. ezetimibe 3-0 Yes [id number] 10mg Take 1 [facility] todd 10 mg 2-02 tablet by [facility] tablet 00:00: mouth in [place] 00 the Medical morning. Branch atorvastati 3-0 Yes [id number] 80mg Take 1 [facility] n 80 mg 2-02 tablet by [facility] of tablet 00:00: mouth at [place] [address] bedtime. Medical Branch isosorbide 3-0 Yes [id number] 30mg Take 1 [facility] n[facility] mononitrate 2-02 tablet by [facility] of 30 mg 24 hr 00:00: mouth in [place] tablet 00 the Medical morning. Branch clopidogreL 3-0 Yes [id number] 75mg Take 1 [facility] 75 mg 2-02 tablet by [facility] tablet 00:00: mouth in [place] 00 the Medical morning. Branch fenofibrate 3-0 Yes [id number] 145mg Take 1 [facility] 145 mg 2-02 9109 tablet by [facility] tablet 00:00: mouth in [place] 00 the Medical morning. Branch icosapent 3-0 Yes [id number] 2g Take 2 [facility] nivers ethyL 2-02 capsules it[facility] of (VASCEPA) 1 00:00: by mouth [place] gram 00 in the Medical capsule morning Branch and 2 capsules in the evening. ezetimibe 3-0 Yes [id number] 10mg Take 1 [facility] todd 10 mg 2-02 tablet by [facility] tablet 00:00: mouth in [place] 00 the Medical morning. Branch atorvastati 3-0 Yes [id number] 80mg Take 1 [facility] n 80 mg 2-02 tablet by [facility] of tablet 00:00: mouth at [place] [address] bedtime. Medical Branch isosorbide 3-0 Yes [id number] 30mg Take 1 [facility] nivers mononitrate 2-02 tablet by [facility] of 30 mg 24 hr 00:00: mouth in [place] tablet 00 the Medical morning. Branch clopidogreL 2022-0 Yes [id number] 75mg Take 1 [facility] 75 mg 2-02 tablet by [facility] tablet 00:00: mouth in [place] 00 the Medical morning. Branch fenofibrate 3-0 Yes [id number] 145mg Take 1 [facility] 145 mg 2-02 9109 tablet by [facility] tablet 00:00: mouth in [place] 00 the Medical morning. Branch icosapent 3-0 Yes [id number] 2g Take 2 [facility] n[facility] ethyL 2-02 capsules [facility] of (VASCEPA) 1 00:00: by mouth [place] gram 00 in the Medical capsule morning Branch and 2 capsules in the evening. ezetimibe 2023-0 Yes [id number] 10mg Take 1 [facility] todd 10 mg 2-02 tablet by [facility] tablet 00:00: mouth in [place] 00 the Medical morning. Branch atorvastati 3-0 Yes [id number] 80mg Take 1 [facility] n 80 mg 2-02 tablet by [facility] of tablet 00:00: mouth at [place] [address] bedtime. Medical Branch isosorbide 2023-0 Yes [id number] 30mg Take 1 [facility] nivers mononitrate 2-02 tablet by [facility] 30 mg 24 hr 00:00: mouth in [place] tablet 00 the Medical morning. Branch clopidogreL 3-0 Yes [id number] 75mg Take 1 [facility] 75 mg 2-02 tablet by [facility] tablet 00:00: mouth in [place] 00 the Medical morning. Branch fenofibrate 3-0 Yes [id number] 145mg Take 1 [facility] 145 mg 2-02 9109 tablet by [facility] tablet 00:00: mouth in [place] 00 the Medical morning. Branch icosapent 2023-0 Yes [id number] 2g Take 2 [facility] n[facility] ethyL 2-02 capsules [facility] of (VASCEPA) 1 00:00: by mouth [place] gram 00 in the Medical capsule morning Branch and 2 capsules in the evening. ezetimibe 3-0 Yes [id number] 10mg Take 1 [facility] todd 10 mg 2-02 tablet by [facility] tablet 00:00: mouth in [place] 00 the Medical morning. Branch atorvastati 3-0 Yes [id number] 80mg Take 1 [facility] n 80 mg 2-02 tablet by [facility] of tablet 00:00: mouth at [place] [address] bedtime. Medical Branch isosorbide 3-0 Yes [id number] 30mg Take 1 [facility] nivers mononitrate 2-02 tablet by [facility] of 30 mg 24 hr 00:00: mouth in [place] tablet 00 the Medical morning. Branch clopidogreL 3-0 Yes [id number] 75mg Take 1 [facility] 75 mg 2-02 tablet by [facility] tablet 00:00: mouth in [place] 00 the Medical morning. Branch fenofibrate 3-0 Yes [id number] 145mg Take 1 [facility] 145 mg 2-02 9109 tablet by [facility] tablet 00:00: mouth in [place] 00 the Medical morning. Branch icosapent 3-0 Yes [id number] 2g Take 2 [facility] n[facility] ethyL 2-02 capsules [facility] of (VASCEPA) 1 00:00: by mouth [place] gram 00 in the Medical capsule morning Branch and 2 capsules in the evening. ezetimibe 2023-0 Yes [id number] 10mg Take 1 [facility] todd 10 mg 2-02 tablet by [facility] tablet 00:00: mouth in [place] 00 the Medical morning. Branch atorvastati 3-0 Yes [id number] 80mg Take 1 [facility] n 80 mg 2-02 tablet by [facility] tablet 00:00: mouth at [place] [address] bedtime. Medical Branch isosorbide 3-0 Yes [id number] 30mg Take 1 [facility] nivers mononitrate 2-02 tablet by [facility] of 30 mg 24 hr 00:00: mouth in [place] tablet 00 the Medical morning. Branch clopidogreL 3-0 Yes [id number] 75mg Take 1 [facility] 75 mg 2-02 tablet by [facility] tablet 00:00: mouth in [place] 00 the Medical morning. Branch fenofibrate 3-0 Yes [id number] 145mg Take 1 [facility] 145 mg 2-02 9109 tablet by [facility] tablet 00:00: mouth in [place] 00 the Medical morning. Branch icosapent 3-0 Yes [id number] 2g Take 2 [facility] ethyL 2-02 capsules [facility] of (VASCEPA) 1 00:00: by mouth [place] gram 00 in the Medical capsule morning Branch and 2 capsules in the evening. ezetimibe 3-0 Yes [id number] 10mg Take 1 [facility] todd 10 mg 2-02 tablet by [facility] tablet 00:00: mouth in [place] 00 the Medical morning. Branch atorvastati 3-0 Yes [id number] 80mg Take 1 [facility] n 80 mg 2-02 tablet by [facility] of tablet 00:00: mouth at [place] [address] bedtime. Medical Branch isosorbide 3-0 Yes [id number] 30mg Take 1 [facility] nivers mononitrate 2-02 tablet by [facility] of 30 mg 24 hr 00:00: mouth in [place] tablet 00 the Medical morning. Branch clopidogreL 3-0 Yes [id number] 75mg Take 1 [facility] 75 mg 2-02 tablet by [facility] tablet 00:00: mouth in [place] 00 the Medical morning. Branch fenofibrate 3-0 Yes [id number] 145mg Take 1 [facility] 145 mg 2-02 9109 tablet by [facility] tablet 00:00: mouth in [place] 00 the Medical morning. Branch icosapent 3-0 Yes [id number] 2g Take 2 [facility] n[facility] ethyL 2-02 capsules [facility] of (VASCEPA) 1 00:00: by mouth [place] gram 00 in the Medical capsule morning Branch and 2 capsules in the evening. ezetimibe 3-0 Yes [id number] 10mg Take 1 [facility] todd 10 mg 2-02 tablet by [facility] tablet 00:00: mouth in [place] 00 the Medical morning. Branch atorvastati 3-0 Yes [id number] 80mg Take 1 [facility] n 80 mg 2-02 tablet by [facility] of tablet 00:00: mouth at [place] [address] bedtime. Medical Branch isosorbide 3-0 Yes [id number] 30mg Take 1 [facility] nivers mononitrate 2-02 tablet by [facility] of 30 mg 24 hr 00:00: mouth in [place] tablet 00 the Medical morning. Branch clopidogreL 3-0 Yes [id number] 75mg Take 1 [facility] 75 mg 2-02 tablet by [facility] of tablet 00:00: mouth in [place] 00 the Medical morning. Branch fenofibrate 2022-0 Yes [id number] 145mg Take 1 [facility] 145 mg 2-02 9109 tablet by [facility] of tablet 00:00: mouth in [place] 00 the Medical morning. Branch icosapent 2022-0 Yes [id number] 2g Take 2 [facility] nivers ethyL 2-02 capsules ity of (VASCEPA) 1 00:00: by mouth [place] gram 00 in the Medical capsule morning Branch and 2 capsules in the evening. ezetimibe 2022-0 Yes 10mg Take 1 [facility] s 10 mg 2-02 tablet by [facility] of tablet 00:00: mouth in [place] 00 the Medical morning. Branch atorvastati 3-0 Yes [id number] 80mg Take 1 [facility] n 80 mg 2-02 tablet by [facility] of tablet 00:00: mouth at [place] [address] bedtime. Medical Branch isosorbide 3-0 Yes [id number] 30mg Take 1 [facility] nivers mononitrate 2-02 tablet by [facility] of 30 mg 24 hr 00:00: mouth in [place] tablet 00 the Medical morning. Branch clopidogreL 3-0 Yes [id number] 75mg Take 1 [facility] 75 mg 2-02 tablet by [facility] of tablet 00:00: mouth in [place] 00 the Medical morning. Branch fenofibrate 3-0 Yes 145mg Take 1 [facility] vers 145 mg 2-02 tablet by [facility] of tablet 00:00: mouth in [place] 00 the Medical morning. Branch icosapent 2022-0 Yes [id number] 2g Take 2 [facility] nivers ethyL 2-02 capsules ity of (VASCEPA) 1 00:00: by mouth [place] gram 00 in the Medical capsule morning Branch and 2 capsules in the evening. ezetimibe 3-0 Yes 10mg Take 1 [facility] s 10 mg 2-02 tablet by [facility] of tablet 00:00: mouth in [place] 00 the Medical morning. Branch atorvastati 3-0 Yes [id number] 80mg Take 1 [facility] n 80 mg 2-02 tablet by [facility] of tablet 00:00: mouth at [place] [address] bedtime. Medical Branch isosorbide 3-0 Yes [id number] 30mg Take 1 [facility] nivers mononitrate 2-02 tablet by [facility] of 30 mg 24 hr 00:00: mouth in [place] tablet 00 the Medical morning. Branch clopidogreL 2022-0 Yes [id number] 75mg Take 1 [facility] 75 mg 2-02 tablet by [facility] of tablet 00:00: mouth in [place] 00 the Medical morning. Branch fenofibrate 2022-0 Yes 145mg Take 1 [facility] vers 145 mg 2-02 tablet by [facility] of tablet 00:00: mouth in [place] 00 the Medical morning. Branch icosapent 2022-0 Yes [id number] 2g Take 2 [facility] nivers ethyL 2-02 capsules ity of (VASCEPA) 1 00:00: by mouth [place] gram 00 in the Medical capsule morning Branch and 2 capsules in the evening. ezetimibe 3-0 Yes 10mg Take 1 [facility] s 10 mg 2-02 tablet by [facility] of tablet 00:00: mouth in [place] 00 the Medical morning. Branch atorvastati 3-0 Yes [id number] 80mg Take 1 [facility] n 80 mg 2-02 tablet by [facility] of tablet 00:00: mouth at [place] [address] bedtime. Medical Branch isosorbide 3-0 Yes [id number] 30mg Take 1 [facility] nivers mononitrate 2-02 tablet by [facility] of 30 mg 24 hr 00:00: mouth in [place] tablet 00 the Medical morning. Branch clopidogreL 3-0 Yes [id number] 75mg Take 1 [facility] 75 mg 2-02 tablet by [facility] of tablet 00:00: mouth in [place] 00 the Medical morning. Branch fenofibrate 2023-0 Yes 145mg Take 1 [facility] vers 145 mg 2-02 tablet by [facility] of tablet 00:00: mouth in [place] 00 the Medical morning. Branch icosapent 3-0 Yes [id number] 2g Take 2 [facility] nivers ethyL 2-02 capsules ity of (VASCEPA) 1 00:00: by mouth [place] gram 00 in the Medical capsule morning Branch and 2 capsules in the evening. ezetimibe 2023-0 Yes 10mg Take 1 [facility] s 10 mg 2-02 tablet by [facility] of tablet 00:00: mouth in [place] 00 the Medical morning. Branch atorvastati 3-0 Yes [id number] 80mg Take 1 [facility] n 80 mg 2-02 tablet by [facility] of tablet 00:00: mouth at [place] [address] bedtime. Medical Branch isosorbide 2023-0 Yes [id number] 30mg Take 1 [facility] nivers mononitrate 2-02 tablet by [facility] of 30 mg 24 hr 00:00: mouth in [place] tablet the Medical morning. Branch clopidogreL 3-0 Yes [id number] 75mg Take 1 [facility] 75 mg 2-02 tablet by [facility] of tablet 00:00: mouth in [place] the Medical morning. Branch fenofibrate 3-0 Yes 145mg Take 1 [facility] vers 145 mg 2-02 tablet by [facility] of tablet 00:00: mouth in [place] 00 the Medical morning. Branch ezetimibe 3-0 Yes 10mg Take 1 [facility] s 10 mg 2-02 tablet by [facility] of tablet 00:00: mouth in [place] 00 the Medical morning. Branch atorvastati 2023-0 Yes [id number] 80mg Take 1 [facility] n 80 mg 2-02 tablet by [facility] of tablet 00:00: mouth at [place] [address] bedtime. Medical Branch isosorbide 2023-0 Yes [id number] 30mg Take 1 [facility] nivers mononitrate 2-02 tablet by [facility] of 30 mg 24 hr 00:00: mouth in [place] tablet 00 the Medical morning. Branch clopidogreL 2023-0 Yes [id number] 75mg Take 1 [facility] 75 mg 2-02 tablet by [facility] of tablet 00:00: mouth in [place] 00 the Medical morning. Branch fenofibrate 2023-0 Yes 145mg Take 1 [facility] vers 145 mg 2-02 tablet by [facility] of tablet 00:00: mouth in [place] 00 the Medical morning. Branch ezetimibe 2023-0 Yes 10mg Take 1 [facility] s 10 mg 2-02 tablet by [facility] of tablet 00:00: mouth in [place] 00 the Medical morning. Branch atorvastati 2023-0 Yes [id number] 80mg Take 1 [facility] n 80 mg 2-02 tablet by [facility] of tablet 00:00: mouth at [place] 00 bedtime. Medical Branch isosorbide 2023-0 Yes [id number] 30mg Take 1 [facility] nivers mononitrate 2-02 tablet by [facility] of 30 mg 24 hr 00:00: mouth in [place] tablet 00 the Medical morning. Branch clopidogreL 2023-0 Yes [id number] 75mg Take 1 [facility] 75 mg 2-02 tablet by [facility] of tablet 00:00: mouth in [place] 00 the Medical morning. Branch fenofibrate 2023-0 Yes 145mg Take 1 [facility] vers 145 mg 2-02 tablet by [facility] of tablet 00:00: mouth in [place] 00 the Medical morning. Branch ezetimibe 2023-0 Yes 10mg Take 1 [facility] s 10 mg 2-02 tablet by [facility] of tablet 00:00: mouth in [place] 00 the Medical morning. Branch atorvastati 2023-0 Yes [id number] 80mg Take 1 [facility] n 80 mg 2-02 tablet by [facility] of tablet 00:00: mouth at [place] [address] bedtime. Medical Branch isosorbide 2023-0 Yes [id number] 30mg Take 1 [facility] nivers mononitrate 2-02 tablet by [facility] of 30 mg 24 hr 00:00: mouth in [place] tablet 00 the Medical morning. Branch clopidogreL 2023-0 Yes [id number] 75mg Take 1 [facility] 75 mg 2-02 tablet by [facility] of tablet 00:00: mouth in [place] 00 the Medical morning. Branch fenofibrate 2023-0 Yes 145mg Take 1 [facility] vers 145 mg 2-02 tablet by [facility] of tablet 00:00: mouth in [place] 00 the Medical morning. Branch ezetimibe 2023-0 Yes 10mg Take 1 [facility] s 10 mg 2-02 tablet by [facility] of tablet 00:00: mouth in [place] 00 the Medical morning. Branch atorvastati 2023-0 Yes [id number] 80mg Take 1 [facility] n 80 mg 2-02 tablet by [facility] of tablet 00:00: mouth at [place] [address] bedtime. Medical Branch isosorbide 2023-0 Yes [id number] 30mg Take 1 [facility] nivers mononitrate 2-02 tablet by [facility] of 30 mg 24 hr 00:00: mouth in [place] tablet 00 the Medical morning. Branch clopidogreL 3-0 Yes [id number] 75mg Take 1 [facility] 75 mg 2-02 tablet by [facility] of tablet 00:00: mouth in [place] 00 the Medical morning. Branch fenofibrate 3-0 Yes 145mg Take 1 [facility] vers 145 mg 2-02 tablet by [facility] of tablet 00:00: mouth in [place] 00 the Medical morning. Branch ezetimibe 3-0 Yes 10mg Take 1 [facility] s 10 mg 2-02 tablet by [facility] of tablet 00:00: mouth in [place] 00 the Medical morning. Branch atorvastati 3-0 Yes [id number] 80mg Take 1 [facility] n 80 mg 2-02 tablet by [facility] of tablet 00:00: mouth at [place] [address] bedtime. Medical Branch isosorbide 3-0 Yes [id number] 30mg Take 1 [facility] nivers mononitrate 2-02 tablet by [facility] of 30 mg 24 hr 00:00: mouth in [place] tablet 00 the Medical morning. Branch clopidogreL 3-0 Yes [id number] 75mg Take 1 [facility] 75 mg 2-02 tablet by [facility] of tablet 00:00: mouth in [place] 00 the Medical morning. Branch fenofibrate 3-0 Yes 145mg Take 1 [facility] vers 145 mg 2-02 tablet by [facility] of tablet 00:00: mouth in [place] 00 the Medical morning. Branch ezetimibe 3-0 Yes 10mg Take 1 [facility] s 10 mg 2-02 tablet by [facility] of tablet 00:00: mouth in [place] 00 the Medical morning. Branch atorvastati 2023-0 Yes [id number] 80mg Take 1 [facility] n 80 mg 2-02 tablet by [facility] of tablet 00:00: mouth at [place] [address] bedtime. Medical Branch isosorbide 2023-0 Yes [id number] 30mg Take 1 [facility] nivers mononitrate 2-02 tablet by [facility] of 30 mg 24 hr 00:00: mouth in [place] tablet 00 the Medical morning. Branch clopidogreL 2023-0 Yes [id number] 75mg Take 1 [facility] 75 mg 2-02 tablet by [facility] of tablet 00:00: mouth in [place] 00 the Medical morning. Branch fenofibrate 2023-0 Yes 145mg Take 1 [facility] vers 145 mg 2-02 tablet by [facility] of tablet 00:00: mouth in [place] 00 the Medical morning. Branch ezetimibe 2023-0 Yes 10mg Take 1 [facility] s 10 mg 2-02 tablet by [facility] of tablet 00:00: mouth in [place] 00 the Medical morning. Branch atorvastati 2023-0 Yes [id number] 80mg Take 1 [facility] n 80 mg 2-02 tablet by [facility] of tablet 00:00: mouth at [place] [address] bedtime. Medical Branch isosorbide 2023-0 Yes [id number] 30mg Take 1 [facility] nivers mononitrate 2-02 tablet by [facility] of 30 mg 24 hr 00:00: mouth in [place] tablet 00 the Medical morning. Branch clopidogreL 2023-0 Yes [id number] 75mg Take 1 [facility] 75 mg 2-02 tablet by [facility] of tablet 00:00: mouth in [place] 00 the Medical morning. Branch fenofibrate 2023-0 Yes 145mg Take 1 [facility] vers 145 mg 2-02 tablet by [facility] of tablet 00:00: mouth in [place] 00 the Medical morning. Branch ezetimibe 2023-0 Yes 10mg Take 1 [facility] s 10 mg 2-02 tablet by [facility] of tablet 00:00: mouth in [place] 00 the Medical morning. Branch atorvastati 2023-0 Yes [id number] 80mg Take 1 [facility] n 80 mg 2-02 tablet by [facility] of tablet 00:00: mouth at [place] [address] bedtime. Medical Branch isosorbide 2023-0 Yes [id number] 30mg Take 1 [facility] nivers mononitrate 2-02 tablet by [facility] of 30 mg 24 hr 00:00: mouth in [place] tablet 00 the Medical morning. Branch clopidogreL 2023-0 Yes [id number] 75mg Take 1 [facility] 75 mg 2-02 tablet by [facility] of tablet 00:00: mouth in [place] 00 the Medical morning. Branch fenofibrate 2023-0 Yes 145mg Take 1 [facility] vers 145 mg 2-02 tablet by [facility] of tablet 00:00: mouth in [place] 00 the Medical morning. Branch ezetimibe 2023-0 Yes 10mg Take 1 [facility] s 10 mg 2-02 tablet by [facility] of tablet 00:00: mouth in [place] 00 the Medical morning. Branch atorvastati 2023-0 Yes [id number] 80mg Take 1 [facility] n 80 mg 2-02 tablet by [facility] of tablet 00:00: mouth at [place] [address] bedtime. Medical Branch isosorbide 2023-0 Yes [id number] 30mg Take 1 [facility] nivers mononitrate 2-02 tablet by [facility] of 30 mg 24 hr 00:00: mouth in [place] tablet 00 the Medical morning. Branch clopidogreL 2023-0 Yes [id number] 75mg Take 1 [facility] 75 mg 2-02 tablet by [facility] of tablet 00:00: mouth in [place] 00 the Medical morning. Branch fenofibrate 2023-0 Yes 145mg Take 1 [facility] vers 145 mg 2-02 tablet by [facility] of tablet 00:00: mouth in [place] 00 the Medical morning. Branch ezetimibe 2023-0 Yes 10mg Take 1 [facility] 10 mg 2-02 tablet by [facility] of tablet 00:00: mouth in [place] 00 the Medical morning. Branch atorvastati 2023-0 Yes [id number] 80mg Take 1 [facility] n 80 mg 2-02 tablet by [facility] of tablet 00:00: mouth at [place] [address] bedtime. Medical Branch isosorbide 2023-0 Yes [id number] 30mg Take 1 [facility] nivers mononitrate 2-02 tablet by [facility] of 30 mg 24 hr 00:00: mouth in [place] tablet 00 the Medical morning. Branch clopidogreL 2023-0 Yes [id number] 75mg Take 1 [facility] 75 mg 2-02 tablet by [facility] of tablet 00:00: mouth in [place] 00 the Medical morning. Branch fenofibrate 2023-0 Yes 145mg Take 1 [facility] vers 145 mg 2-02 tablet by [facility] of tablet 00:00: mouth in [place] 00 the Medical morning. Branch ezetimibe 2023-0 Yes 10mg Take 1 [facility] s 10 mg 2-02 tablet by [facility] of tablet 00:00: mouth in [place] 00 the Medical morning. Branch atorvastati 2023-0 Yes [id number] 80mg Take 1 [facility] n 80 mg 2-02 tablet by [facility] of tablet 00:00: mouth at [place] [address] bedtime. Medical Branch isosorbide 2023-0 Yes [id number] 30mg Take 1 [facility] nivers mononitrate 2-02 tablet by [facility] of 30 mg 24 hr 00:00: mouth in [place] tablet 00 the Medical morning. Branch clopidogreL 2023-0 Yes [id number] 75mg Take 1 [facility] 75 mg 2-02 tablet by [facility] of tablet 00:00: mouth in [place] 00 the Medical morning. Branch fenofibrate 2023-0 Yes 145mg Take 1 [facility] vers 145 mg 2-02 tablet by [facility] of tablet 00:00: mouth in [place] 00 the Medical morning. Branch ezetimibe 2023-0 Yes 10mg Take 1 [facility] s 10 mg 2-02 tablet by [facility] of tablet 00:00: mouth in [place] 00 the Medical morning. Branch atorvastati 2023-0 Yes [id number] 80mg Take 1 [facility] n 80 mg 2-02 tablet by [facility] of tablet 00:00: mouth at [place] [address] bedtime. Medical Branch isosorbide 2023-0 Yes [id number] 30mg Take 1 [facility] nivers mononitrate 2-02 tablet by [facility] of 30 mg 24 hr 00:00: mouth in [place] tablet 00 the Medical morning. Branch clopidogreL 3-0 Yes [id number] 75mg Take 1 [facility] 75 mg 2-02 tablet by [facility] of tablet 00:00: mouth in [place] the Medical morning. Branch fenofibrate 2023-0 Yes 145mg Take 1 [facility] vers 145 mg 2-02 tablet by [facility] of tablet 00:00: mouth in [place] the Medical morning. Branch ezetimibe 2023-0 Yes 10mg Take 1 [facility] 10 mg 2-02 tablet by [facility] of tablet 00:00: mouth in [place] 00 the Medical morning. Branch atorvastati 2023-0 Yes [id number] 80mg Take 1 [facility] n 80 mg 2-02 tablet by [facility] of tablet 00:00: mouth at [place] [address] bedtime. Medical Branch isosorbide 2023-0 Yes [id number] 30mg Take 1 [facility] nivers mononitrate 2-02 tablet by [facility] of 30 mg 24 hr 00:00: mouth in [place] tablet 00 the Medical morning. Branch clopidogreL 2023-0 Yes [id number] 75mg Take 1 [facility] 75 mg 2-02 tablet by [facility] of tablet 00:00: mouth in [place] 00 the Medical morning. Branch fenofibrate 2023-0 Yes 145mg Take 1 [facility] vers 145 mg 2-02 tablet by [facility] of tablet 00:00: mouth in [place] 00 the Medical morning. Branch ezetimibe 2023-0 Yes 10mg Take 1 [facility] 10 mg 2-02 tablet by [facility] of tablet 00:00: mouth in [place] 00 the Medical morning. Branch atorvastati 2023-0 Yes [id number] 80mg Take 1 [facility] n 80 mg 2-02 tablet by [facility] of tablet 00:00: mouth at [place] [address] bedtime. Medical Branch isosorbide 2023-0 Yes [id number] 30mg Take 1 [facility] nivers mononitrate 2-02 tablet by [facility] of 30 mg 24 hr 00:00: mouth in [place] tablet 00 the Medical morning. Branch clopidogreL 2023-0 Yes [id number] 75mg Take 1 [facility] 75 mg 2-02 tablet by [facility] of tablet 00:00: mouth in [place] 00 the Medical morning. Branch fenofibrate 2023-0 Yes 145mg Take 1 [facility] vers 145 mg 2-02 tablet by [facility] of tablet 00:00: mouth in [place] the Medical morning. Branch ezetimibe 2023-0 Yes 10mg Take 1 [facility] 10 mg 2-02 tablet by [facility] of tablet 00:00: mouth in [place] 00 the Medical morning. Branch atorvastati 2023-0 Yes [id number] 80mg Take 1 [facility] n 80 mg 2-02 tablet by [facility] of tablet 00:00: mouth at [place] [address] bedtime. Medical Branch isosorbide 2023-0 Yes [id number] 30mg Take 1 [facility] nivers mononitrate 2-02 tablet by [facility] of 30 mg 24 hr 00:00: mouth in [place] tablet 00 the Medical morning. Branch clopidogreL 2023-0 Yes [id number] 75mg Take 1 [facility] 75 mg 2-02 tablet by [facility] of tablet 00:00: mouth in [place] 00 the Medical morning. Branch fenofibrate 2023-0 Yes 145mg Take 1 [facility] vers 145 mg 2-02 tablet by [facility] of tablet 00:00: mouth in [place] 00 the Medical morning. Branch ezetimibe 2023-0 Yes 10mg Take 1 [facility] 10 mg 2-02 tablet by [facility] of tablet 00:00: mouth in [place] 00 the Medical morning. Branch atorvastati 3-0 Yes [id number] 80mg Take 1 [facility] n 80 mg 2-02 tablet by [facility] tablet 00:00: mouth at [place] [place] [address] bedtime. Medical Branch isosorbide 2023-0 Yes [id number] 30mg Take 1 [facility] nivers mononitrate 2-02 tablet by it[facility] of 30 mg 24 hr 00:00: mouth in [place] tablet 00 the Medical morning. Branch clopidogreL 3-0 Yes [id number] 75mg Take 1 [facility] 75 mg 2-02 tablet by [facility] of tablet 00:00: mouth in [place] 00 the Medical morning. Branch fenofibrate 3-0 Yes 145mg Take 1 [facility] vers 145 mg 2-02 tablet by ity of tablet 00:00: mouth in [place] 00 the Medical morning. Branch ezetimibe 3-0 Yes 10mg Take 1 [facility] s 10 mg 2-02 tablet by it[facility] of tablet 00:00: mouth in [place] 00 the Medical morning. Branch atorvastati 3-0 Yes [id number] 80mg Take 1 [facility] n 80 mg 2-02 tablet by ity of tablet 00:00: mouth at [place] [address] bedtime. Medical Branch isosorbide 3-0 Yes [id number] 30mg Take 1 [facility] nivers mononitrate 2-02 tablet by ity of 30 mg 24 hr 00:00: mouth in [place] tablet 00 the Medical morning. Branch clopidogreL 3-0 Yes [id number] 75mg Take 1 [facility] 75 mg 2-02 tablet by it[facility] of tablet 00:00: mouth in [place] 00 the Medical morning. Branch fenofibrate 2023-0 Yes 145mg Take 1 [facility] vers 145 mg 2-02 tablet by ity of tablet 00:00: mouth in [place] 00 the Medical morning. Branch ezetimibe 2023-0 Yes 10mg Take 1 [facility] s 10 mg 2-02 tablet by ity of tablet 00:00: mouth in [place] 00 the Medical morning. Branch atorvastati 2023-0 Yes [id number] 80mg Take 1 [facility] n 80 mg 2-02 tablet by ity of tablet 00:00: mouth at [place] [address] bedtime. Medical Branch isosorbide 2023-0 Yes [id number] 30mg Take 1 [facility] nivers mononitrate 2-02 tablet by ity of 30 mg 24 hr 00:00: mouth in [place] tablet 00 the Medical morning. Branch clopidogreL 2023-0 Yes [id number] 75mg Take 1 [facility] 75 mg 2-02 tablet by ity of tablet 00:00: mouth in [place] 00 the Medical morning. Branch fenofibrate 2023-0 Yes 145mg Take 1 [facility] vers 145 mg 2-02 tablet by ity of tablet 00:00: mouth in [place] 00 the Medical morning. Branch ezetimibe 2023-0 Yes 10mg Take 1 [facility] s 10 mg 2-02 tablet by ity of tablet 00:00: mouth in [place] 00 the Medical morning. Branch atorvastati 3-0 Yes [id number] 80mg Take 1 [facility] n 80 mg 2-02 tablet by ity of tablet 00:00: mouth at [place] [address] bedtime. Medical Branch isosorbide 2023-0 Yes [id number] 30mg Take 1 [facility] nivers mononitrate 2-02 tablet by ity of 30 mg 24 hr 00:00: mouth in [place] tablet 00 the Medical morning. Branch clopidogreL 3-0 Yes [id number] 75mg Take 1 [facility] 75 mg 2-02 tablet by ity of tablet 00:00: mouth in [place] 00 the Medical morning. Branch fenofibrate 3-0 Yes 145mg Take 1 [facility] vers 145 mg 2-02 tablet by ity of tablet 00:00: mouth in [place] 00 the Medical morning. Branch ezetimibe 3-0 Yes 10mg Take 1 [facility] s 10 mg 2-02 tablet by ity of tablet 00:00: mouth in [place] 00 the Medical morning. Branch atorvastati 2023-0 Yes [id number] 80mg Take 1 [facility] n 80 mg 2-02 tablet by ity of tablet 00:00: mouth at [place] [address] bedtime. Medical Branch isosorbide 2023-0 Yes [id number] 30mg Take 1 [facility] nivers mononitrate 2-02 tablet by ity of 30 mg 24 hr 00:00: mouth in [place] tablet 00 the Medical morning. Branch clopidogreL 2023-0 Yes [id number] 75mg Take 1 [facility] 75 mg 2-02 tablet by ity of tablet 00:00: mouth in [place] 00 the Medical morning. Branch fenofibrate 2023-0 Yes 145mg Take 1 [facility] vers 145 mg 2-02 tablet by ity of tablet 00:00: mouth in [place] 00 the Medical morning. Branch ezetimibe 2023-0 Yes 10mg Take 1 [facility] s 10 mg 2-02 tablet by ity of tablet 00:00: mouth in [place] 00 the Medical morning. Branch atorvastati 2023-0 Yes [id number] 80mg Take 1 [facility] n 80 mg 2-02 tablet by ity of tablet 00:00: mouth at [place] [address] bedtime. Medical Branch isosorbide 2023-0 Yes [id number] 30mg Take 1 [facility] nivers mononitrate 2-02 tablet by it[facility] of 30 mg 24 hr 00:00: mouth in [place] tablet 00 the Medical morning. Branch clopidogreL 2023-0 Yes [id number] 75mg Take 1 [facility] 75 mg 2-02 tablet by ity of tablet 00:00: mouth in [place] 00 the Medical morning. Branch fenofibrate 2023-0 Yes 145mg Take 1 [facility] vers 145 mg 2-02 tablet by ity of tablet 00:00: mouth in [place] 00 the Medical morning. Branch ezetimibe 2023-0 Yes 10mg Take 1 [facility] s 10 mg 2-02 tablet by ity of tablet 00:00: mouth in [place] 00 the Medical morning. Branch atorvastati 2023-0 Yes [id number] 80mg Take 1 [facility] n 80 mg 2-02 tablet by ity of tablet 00:00: mouth at [place] [address] bedtime. Medical Branch isosorbide 2023-0 Yes [id number] 30mg Take 1 [facility] nivers mononitrate 2-02 tablet by it[facility] of 30 mg 24 hr 00:00: mouth in [place] tablet 00 the Medical morning. Branch clopidogreL 2023-0 Yes [id number] 75mg Take 1 [facility] 75 mg 2-02 tablet by it[facility] of tablet 00:00: mouth in [place] 00 the Medical morning. Branch fenofibrate 2023-0 Yes 145mg Take 1 [facility] vers 145 mg 2-02 tablet by ity of tablet 00:00: mouth in [place] 00 the Medical morning. Branch ezetimibe 2023-0 Yes 10mg Take 1 [facility] s 10 mg 2-02 tablet by it[facility] of tablet 00:00: mouth in [place] 00 the Medical morning. Branch atorvastati 2023-0 Yes [id number] 80mg Take 1 [facility] n 80 mg 2-02 tablet by ity of tablet 00:00: mouth at [place] [address] bedtime. Medical Branch isosorbide 2023-0 Yes [id number] 30mg Take 1 [facility] nivers mononitrate 2-02 tablet by [facility] of 30 mg 24 hr 00:00: mouth in [place] tablet 00 the Medical morning. Branch clopidogreL 3-0 Yes [id number] 75mg Take 1 [facility] 75 mg 2-02 tablet by it[facility] of tablet 00:00: mouth in [place] 00 the Medical morning. Branch fenofibrate 3-0 Yes 145mg Take 1 [facility] vers 145 mg 2-02 tablet by it[facility] of tablet 00:00: mouth in [place] 00 the Medical morning. Branch ezetimibe 3-0 Yes 10mg Take 1 [facility] s 10 mg 2-02 tablet by ity of tablet 00:00: mouth in [place] 00 the Medical morning. Branch atorvastati 3-0 Yes [id number] 80mg Take 1 [facility] n 80 mg 2-02 tablet by ity of tablet 00:00: mouth at [place] [address] bedtime. Medical Branch isosorbide 2023-0 Yes [id number] 30mg Take 1 [facility] nivers mononitrate 2-02 tablet by it[facility] of 30 mg 24 hr 00:00: mouth in [place] tablet 00 the Medical morning. Branch clopidogreL 3-0 Yes [id number] 75mg Take 1 [facility] 75 mg 2-02 tablet by ity of tablet 00:00: mouth in [place] 00 the Medical morning. Branch fenofibrate 2023-0 Yes 145mg Take 1 [facility] vers 145 mg 2-02 tablet by ity of tablet 00:00: mouth in [place] 00 the Medical morning. Branch ezetimibe 2023-0 Yes 10mg Take 1 [facility] s 10 mg 2-02 tablet by ity of tablet 00:00: mouth in [place] 00 the Medical morning. Branch atorvastati 2023-0 Yes [id number] 80mg Take 1 [facility] n 80 mg 2-02 tablet by ity of tablet 00:00: mouth at [place] [address] bedtime. Medical Branch isosorbide 2023-0 Yes [id number] 30mg Take 1 [facility] nivers mononitrate 2-02 tablet by ity of 30 mg 24 hr 00:00: mouth in [place] tablet 00 the Medical morning. Branch clopidogreL 2023-0 Yes [id number] 75mg Take 1 [facility] 75 mg 2-02 tablet by ity of tablet 00:00: mouth in [place] 00 the Medical morning. Branch fenofibrate 2023-0 Yes 145mg Take 1 [facility] vers 145 mg 2-02 tablet by ity of tablet 00:00: mouth in [place] 00 the Medical morning. Branch ezetimibe 2023-0 Yes 10mg Take 1 [facility] s 10 mg 2-02 tablet by ity of tablet 00:00: mouth in [place] 00 the Medical morning. Branch atorvastati 2023-0 Yes [id number] 80mg Take 1 [facility] n 80 mg 2-02 tablet by ity of tablet 00:00: mouth at [place] [address] bedtime. Medical Branch isosorbide 2023-0 Yes [id number] 30mg Take 1 [facility] nivers mononitrate 2-02 tablet by ity of 30 mg 24 hr 00:00: mouth in [place] tablet 00 the Medical morning. Branch clopidogreL 2023-0 Yes [id number] 75mg Take 1 [facility] 75 mg 2-02 tablet by ity of tablet 00:00: mouth in [place] 00 the Medical morning. Branch fenofibrate 2023-0 Yes 145mg Take 1 [facility] vers 145 mg 2-02 tablet by ity of tablet 00:00: mouth in [place] 00 the Medical morning. Branch ezetimibe 2023-0 Yes 10mg Take 1 [facility] s 10 mg 2-02 tablet by ity of tablet 00:00: mouth in [place] 00 the Medical morning. Branch atorvastati 2023-0 Yes [id number] 80mg Take 1 [facility] n 80 mg 2-02 tablet by ity of tablet 00:00: mouth at [place] [address] bedtime. Medical Branch isosorbide 2023-0 Yes [id number] 30mg Take 1 [facility] nivers mononitrate 2-02 tablet by it[facility] of 30 mg 24 hr 00:00: mouth in [place] tablet 00 the Medical morning. Branch clopidogreL 2023-0 Yes [id number] 75mg Take 1 [facility] 75 mg 2-02 tablet by ity of tablet 00:00: mouth in [place] 00 the Medical morning. Branch fenofibrate 2023-0 Yes 145mg Take 1 [facility] vers 145 mg 2-02 tablet by ity of tablet 00:00: mouth in [place] 00 the Medical morning. Branch ezetimibe 2023-0 Yes 10mg Take 1 [facility] s 10 mg 2-02 tablet by ity of tablet 00:00: mouth in [place] 00 the Medical morning. Branch atorvastati 2023-0 Yes [id number] 80mg Take 1 [facility] n 80 mg 2-02 tablet by ity of tablet 00:00: mouth at [place] [address] bedtime. Medical Branch isosorbide 2023-0 Yes [id number] 30mg Take 1 [facility] nivers mononitrate 2-02 tablet by ity of 30 mg 24 hr 00:00: mouth in [place] tablet 00 the Medical morning. Branch clopidogreL 2023-0 Yes [id number] 75mg Take 1 [facility] 75 mg 2-02 tablet by ity of tablet 00:00: mouth in [place] 00 the Medical morning. Branch fenofibrate 2023-0 Yes 145mg Take 1 [facility] vers 145 mg 2-02 tablet by ity of tablet 00:00: mouth in [place] 00 the Medical morning. Branch ezetimibe 2023-0 Yes 10mg Take 1 [facility] s 10 mg 2-02 tablet by ity of tablet 00:00: mouth in [place] 00 the Medical morning. Branch atorvastati 2023-0 Yes [id number] 80mg Take 1 [facility] n 80 mg 2-02 tablet by ity of tablet 00:00: mouth at [place] [address] bedtime. Medical Branch isosorbide 2023-0 Yes [id number] 30mg Take 1 [facility] nivers mononitrate 2-02 tablet by ity of 30 mg 24 hr 00:00: mouth in [place] tablet 00 the Medical morning. Branch clopidogreL 2023-0 Yes [id number] 75mg Take 1 [facility] 75 mg 2-02 tablet by ity of tablet 00:00: mouth in [place] 00 the Medical morning. Branch fenofibrate 2023-0 Yes 145mg Take 1 [facility] vers 145 mg 2-02 tablet by ity of tablet 00:00: mouth in [place] 00 the Medical morning. Branch ezetimibe 2023-0 Yes 10mg Take 1 [facility] s 10 mg 2-02 tablet by ity of tablet 00:00: mouth in [place] 00 the Medical morning. Branch atorvastati 2023-0 Yes [id number] 80mg Take 1 [facility] n 80 mg 2-02 tablet by ity of tablet 00:00: mouth at [place] [address] bedtime. Medical Branch isosorbide 3-0 Yes [id number] 30mg Take 1 U nivers mononitrate 2-02 tablet by ity of 30 mg 24 hr 00:00: mouth in [place] tablet 00 the Medical morning. Branch clopidogreL 3-0 Yes [id number] 75mg Take 1 [facility] 75 mg 2-02 tablet by ity of tablet 00:00: mouth in [place] 00 the Medical morning. Branch fenofibrate 2022-0 Yes 145mg Take 1 [facility] vers 145 mg 2-02 tablet by ity of tablet 00:00: mouth in [place] 00 the Medical morning. Branch ezetimibe 3-0 Yes 10mg Take 1 [facility] s 10 mg 2-02 tablet by ity of tablet 00:00: mouth in [place] 00 the Medical morning. Branch atorvastati 2022-0 Yes [id number] 80mg Take 1 [facility] n 80 mg 2-02 tablet by ity of tablet 00:00: mouth at [place] [address] bedtime. Medical Branch isosorbide 2022-0 Yes [id number] 30mg Take 1 U nivers mononitrate 2-02 tablet by ity of 30 mg 24 hr 00:00: mouth in [place] tablet 00 the Medical morning. Branch clopidogreL 2022-0 Yes [id number] 75mg Take 1 [facility] 75 mg 2-02 tablet by ity of tablet 00:00: mouth in [place] the Medical morning. Branch fenofibrate 2022-0 Yes 145mg Take 1 [facility] vers 145 mg 2-02 tablet by ity of tablet 00:00: mouth in [place] 00 the Medical morning. Branch icosapent 2022-0 2022- No [id number] 2g Take 2 [facility] ethyL 2-02 07-27 capsules ity of (VASCEPA) 1 00:00: 00:00 by mouth [place] gram 00 :00 in the Medical capsule morning Branch and 2 capsules in the evening. icosapent 2022-0 2022- No [id number] 2g Take 2 [facility] ethyL 2-02 07-27 capsules ity of (VASCEPA) 1 00:00: 00:00 by mouth [place] gram 00 :00 in the Medical capsule morning Branch and 2 capsules in the evening. icosapent 2022-0 2022- No [id number] 2g Take 2 [facility] ethyL 2-02 07-27 capsules ity of (VASCEPA) 1 00:00: 00:00 by mouth [place] gram 00 :00 in the Medical capsule morning Branch and 2 capsules in the evening. icosapent 2022- No [id number] 2g Take 2 [facility] ethyL 2- 07-27 capsules ity of (VASCEPA) 1 00:00: 00:00 by mouth [place] gram 00 :00 in the Medical capsule morning Branch and 2 capsules in the evening. icosapent 2022- No [id number] 2g Take 2 [facility] ethyL 2-02 07-27 capsules ity of (VASCEPA) 1 00:00: 00:00 by mouth [place] gram 00 :00 in the Medical capsule morning Branch and 2 capsules in the evening. icosapent 2022- No [id number] 2g Take 2 [facility] ethyL 2-11 07-27 capsules ity of (VASCEPA) 1 00:00: 00:00 by mouth [place] gram 00 :00 in the Medical capsule morning Branch and 2 capsules in the evening. lisinopriL 2022- No [id number] 40mg Take 1 [facility] 40 mg 2-11 06-07 tablet by ity of tablet 00:00: 00:00 mouth in [place] 00 :00 the Medical morning. Branch carvediloL 2022- No [id number] 6.25mg Take 1 [facility] 6.25 mg 2- 06-07 tablet by ity of tablet 00:00: 00:00 mouth in [place] 00 :00 the Medical morning Branch and 1 tablet in the evening. Take with meals. lisinopriL 2022- No [id number] 40mg Take 1 [facility] 40 mg 2-02 06-07 tablet by ity of tablet 00:00: 00:00 mouth in [place] 00 :00 the Medical morning. Branch carvediloL 2022- No [id number] 6.25mg Take 1 [facility] 6.25 mg 2- 06-07 tablet by ity of tablet 00:00: 00:00 mouth in [place] 00 :00 the Medical morning Branch and 1 tablet in the evening. Take with meals. iopamidol 2021-10- No [id number] 80mL 80 mL, Univers (ISOVUE 2-25 12-25 Intravenou ity o f 370-500 mL) 20:30: 20:30 s, ONCE, 1 [place] injection 00 :00 dose, On Medica l 80 mL [facility] 09/24/22 at 1430, Routine FENTanyl PF 2021-10- No 50ug 50 mcg, Un [place] (SUBLIMAZE 2-25 12-25 Slow IV ity o f (PF)) 19:45: 18:59 Push, [place] injection 00 :00 ONCE, 1 Medical 50 mcg dose, On Branch [place] 09/24/22 at 1345, Routine ondansetron 2021-10- No 4mg 4 mg, Slow Univers (ZOFRAN 2-25 12-25 IV Push, ity of (PF)) 19:00: 18:59 ONCE, 1 [place] injection 4 00 :00 dose, On Medi purvi mg [facility] 09/24/22 at 1300, NITA amoxicillin 2021-10- No [id number] 1{tbl} Take 1 Univers -clavulanat 2-25 -05 tablet by it y of e 875-125 00:00: 05:59 mouth [place] mg per 00 :00 every 12 Medical tablet (twelve) [facility] for 10 days. lisinopriL 2021-10 Yes [id number] 40mg Take 1 [facility] 40 mg 2-19 tablet by ity of tablet 00:00: mouth in [place] 00 the Medical morning. [place] lisinopriL 2021-10 Yes [id number] 40mg Take 1 [facility] 40 mg 2-19 tablet by ity of tablet 00:00: mouth in [place] 00 the Medical morning. [place] lisinopriL 2021-10 Yes [id number] 40mg Take 1 [facility] 40 mg 2-19 tablet by ity of tablet 00:00: mouth in [place] 00 the Medical morning. [place] lisinopriL 2021-10- No [id number] 40mg Take 1 [facility] 40 mg 2-19 -02 tablet by ity of tablet 00:00: 00:00 mouth in [place] 00 :00 the Medical morning. [place] lisinopriL 2021-10- No [id number] 40mg Take 1 [facility] 40 mg 2-19 -02 tablet by ity of tablet 00:00: 00:00 mouth in [place] 00 :00 the Medical morning. Branch lisinopriL 2021-10- No [id number] 40mg Take 1 [facility] 40 mg 11-19 tablet by ity of tablet 00:00: 00:00 mouth in [place] 00 :00 the Medical morning. Branch lisinopriL 2021-10- No [id number] 40mg Take 1 [facility] 40 mg 11-19 tablet by ity of tablet 00:00: 00:00 mouth in [place] 00 :00 the Medical morning. Branch lisinopriL 2021-10- No [id number] 40mg Take 1 [facility] 40 mg 11-19 tablet by ity of tablet 00:00: 00:00 mouth in [place] 00 :00 the Medical morning. Branch lisinopriL 2021-10- No [id number] 40mg Take 1 [facility] 40 mg 11-19 tablet by ity of tablet 00:00: 00:00 mouth in [place] 00 :00 the Medical morning. Branch furosemide 2021-10 Yes 40mg Take 1 Unive rs 40 mg 2-14 tablet by ity of tablet 00:00: mouth in [place] 00 the Medical morning. Branch icosapent 2021-10 Yes [id number] 2g Take 2 U nivers ethyL 2-14 capsules ity of (VASCEPA) 1 00:00: by mouth [place] gram 00 in the Medical capsule morning Branch and 2 capsules in the evening. carvediloL 2021-10 Yes [id number] 6.25mg Take 1 [facility] 6.25 mg 2-14 tablet by ity of tablet 00:00: mouth in [place] the Medical morning Branch and 1 tablet in the evening. Take with meals. furosemide 2021-10 Yes 40mg Take 1 Unive rs 40 mg 2-14 tablet by ity of tablet 00:00: mouth in [place] 00 the Medical morning. Branch icosapent 2021-10 Yes [id number] 2g Take 2 U nivers ethyL 2-14 capsules ity of (VASCEPA) 1 00:00: by mouth [place] gram 00 in the Medical capsule morning Branch and 2 capsules in the evening. carvediloL 2021-10 Yes [id number] 6.25mg Take 1 [facility] 6.25 mg 2-14 tablet by ity of tablet 00:00: mouth in [place] the Medical morning Branch and 1 tablet in the evening. Take with meals. furosemide 2021-10 Yes 40mg Take 1 Unive rs 40 mg 2-14 tablet by ity of tablet 00:00: mouth in [place] the morning. Branch icosapent 2021-10 Yes [id number] 2g Take 2 U nivers ethyL 2-14 capsules ity of (VASCEPA) 1 00:00: by mouth [place] gram 00 in the Medical capsule morning Branch and 2 capsules in the evening. carvediloL 2021-10 Yes [id number] 6.25mg Take 1 [facility] 6.25 mg 2-14 tablet by ity of tablet 00:00: mouth in [place] the Medical morning Branch and 1 tablet in the evening. Take with meals. furosemide 2021-10 Yes 40mg Take 1 Unive rs 40 mg 2-14 tablet by ity of tablet 00:00: mouth in [place] the morning. Branch [facility] 2021-10 Yes [id number] 2g Take 2 U nivers ethyL 2-14 capsules ity of (VASCEPA) 1 00:00: by mouth [place] gram 00 in the Medical capsule morning Branch and 2 capsules in the evening. carvediloL 2021-10 Yes [id number] 6.25mg Take 1 [facility] 6.25 mg 2-14 tablet by ity of tablet 00:00: mouth in [place] the Medical morning Branch and 1 tablet in the evening. Take with meals. furosemide 2021-10 Yes 40mg Take 1 Unive rs 40 mg 2-14 tablet by ity of tablet 00:00: mouth in [place] the morning. Branch [facility] 2021-10 Yes [id number] 2g Take 2 U nivers ethyL 2-14 capsules ity of (VASCEPA) 1 00:00: by mouth [place] gram 00 in the Medical capsule morning Branch and 2 capsules in the evening. carvediloL 2021-10 Yes [id number] 6.25mg Take 1 [facility] 6.25 mg 2-14 tablet by ity of tablet 00:00: mouth in [place] [address] the Medical morning Branch and 1 tablet in the evening. Take with meals. furosemide 2021-10 Yes 40mg Take 1 Unive rs 40 mg 2-14 tablet by ity of tablet 00:00: mouth in [place] [address] the [facility] morning. Branch icosapent 2021-10 Yes [id number] 2g Take 2 U nivers ethyL 2-14 capsules ity of (VASCEPA) 1 00:00: by mouth [place] gram 00 in the Medical capsule morning Branch and 2 capsules in the evening. carvediloL 2021-10 Yes [id number] 6.25mg Take 1 [facility] 6.25 mg 2-14 tablet by ity of tablet 00:00: mouth in [place] the Medical morning Branch and 1 tablet in the evening. Take with meals. furosemide 2021-10 Yes 40mg Take 1 Unive rs 40 mg 2-14 tablet by ity of tablet 00:00: mouth in [place] the morning. Branch icosapent 2021-10 Yes [id number] 2g Take 2 U nivers ethyL 2-14 capsules ity of (VASCEPA) 1 00:00: by mouth [place] gram 00 in the Medical capsule morning Branch and 2 capsules in the evening. carvediloL 2021-10 Yes [id number] 6.25mg Take 1 [facility] 6.25 mg 2-14 tablet by ity of tablet 00:00: mouth in [place] the Medical morning Branch and 1 tablet in the evening. Take with meals. furosemide 2021-10 Yes 40mg Take 1 Unive rs 40 mg 2-14 tablet by ity of tablet 00:00: mouth in [place] the morning. Branch furosemide 2021-10 Yes 40mg Take 1 Unive rs 40 mg 2-14 tablet by ity of tablet 00:00: mouth in [place] the morning. Branch furosemide 2021-10 Yes 40mg Take 1 Unive rs 40 mg 2-14 tablet by ity of tablet 00:00: mouth in [place] the morning. Branch furosemide 2021-10 Yes 40mg Take 1 Unive rs 40 mg 2-14 tablet by ity of tablet 00:00: mouth in [place] the morning. Branch furosemide 2021-10 Yes 40mg Take 1 Unive rs 40 mg 2-14 tablet by ity of tablet 00:00: mouth in [place] the morning. Branch furosemide 2021-10 Yes 40mg Take 1 Unive rs 40 mg 2-14 tablet by ity of tablet 00:00: mouth in [place] the morning. Branch furosemide 2022-1 Yes 40mg Take 1 Unive rs 40 mg 2-14 tablet by ity of tablet 00:00: mouth in [place] the Medical morning. Branch furosemide 2022-1 Yes 40mg Take 1 Unive rs 40 mg 2-14 tablet by ity of tablet 00:00: mouth in [place] the Medical morning. Branch furosemide 2022-1 Yes 40mg Take 1 Unive rs 40 mg 2-14 tablet by ity of tablet 00:00: mouth in [place] the Medical morning. Branch furosemide 2022-1 Yes 40mg Take 1 Unive rs 40 mg 2-14 tablet by ity of tablet 00:00: mouth in [place] the Medical morning. Branch furosemide 2022-1 Yes 40mg Take 1 Unive rs 40 mg 2-14 tablet by ity of tablet 00:00: mouth in [place] the Medical morning. Branch furosemide 2022-1 Yes 40mg Take 1 Unive rs 40 mg 2-14 tablet by ity of tablet 00:00: mouth in [place] the Medical morning. Branch furosemide 2022-1 Yes 40mg Take 1 Unive rs 40 mg 2-14 tablet by ity of tablet 00:00: mouth in [place] the Medical morning. Branch furosemide 2022-1 Yes 40mg Take 1 Unive rs 40 mg 2-14 tablet by ity of tablet 00:00: mouth in [place] the Medical morning. Branch furosemide 2022-1 Yes 40mg Take 1 Unive rs 40 mg 2-14 tablet by ity of tablet 00:00: mouth in [place] the Medical morning. Branch furosemide 2022-1 Yes 40mg Take 1 Unive rs 40 mg 2-14 tablet by ity of tablet 00:00: mouth in [place] the Medical morning. Branch furosemide 2022-1 Yes 40mg Take 1 Unive rs 40 mg 2-14 tablet by ity of tablet 00:00: mouth in [place] the Medical morning. Branch furosemide 2022-1 Yes 40mg Take 1 Unive rs 40 mg 2-14 tablet by ity of tablet 00:00: mouth in [place] the Medical morning. Branch furosemide 2022-1 Yes 40mg Take 1 Unive rs 40 mg 2-14 tablet by ity of tablet 00:00: mouth in [place] the Medical morning. Branch furosemide 2022-1 Yes 40mg Take 1 Unive rs 40 mg 2-14 tablet by ity of tablet 00:00: mouth in [place] the Medical morning. Branch furosemide 2022-1 Yes 40mg Take 1 Unive rs 40 mg 2-14 tablet by ity of tablet 00:00: mouth in [place] the Medical morning. Branch furosemide 2022-1 Yes 40mg Take 1 Unive rs 40 mg 2-14 tablet by ity of tablet 00:00: mouth in [place] the Medical morning. Branch furosemide 2022-1 Yes 40mg Take 1 Unive rs 40 mg 2-14 tablet by ity of tablet 00:00: mouth in [place] the Medical morning. Branch furosemide 2022-1 Yes 40mg Take 1 Unive rs 40 mg 2-14 tablet by ity of tablet 00:00: mouth in [place] the Medical morning. Branch furosemide 2022-1 Yes 40mg Take 1 Unive rs 40 mg 2-14 tablet by ity of tablet 00:00: mouth in [place] the Medical morning. Branch furosemide 2022-1 Yes 40mg Take 1 Unive rs 40 mg 2-14 tablet by ity of tablet 00:00: mouth in [place] the Medical morning. Branch furosemide 2022-1 Yes 40mg Take 1 Unive rs 40 mg 2-14 tablet by ity of tablet 00:00: mouth in [place] the Medical morning. Branch furosemide 2022-1 Yes 40mg Take 1 Unive rs 40 mg 2-14 tablet by ity of tablet 00:00: mouth in [place] the Medical morning. Branch furosemide 2022-1 Yes 40mg Take 1 Unive rs 40 mg 2-14 tablet by ity of tablet 00:00: mouth in [place] the Medical morning. Branch furosemide 2022-1 Yes 40mg Take 1 Unive rs 40 mg 2-14 tablet by ity of tablet 00:00: mouth in [place] the Medical morning. Branch furosemide 2022-1 Yes 40mg Take 1 Unive rs 40 mg 2-14 tablet by ity of tablet 00:00: mouth in [place] the Medical morning. Branch furosemide 2022-1 Yes 40mg Take 1 Unive rs 40 mg 2-14 tablet by ity of tablet 00:00: mouth in [place] the Medical morning. Branch furosemide 2022-1 Yes 40mg Take 1 Unive rs 40 mg 2-14 tablet by ity of tablet 00:00: mouth in [place] the Medical morning. Branch furosemide 2022-1 Yes 40mg Take 1 Unive rs 40 mg 2-14 tablet by ity of tablet 00:00: mouth in [place] the Medical morning. Branch furosemide 2022-1 Yes 40mg Take 1 Unive rs 40 mg 2-14 tablet by ity of tablet 00:00: mouth in [place] the Medical morning. Branch furosemide 2022-1 Yes 40mg Take 1 Unive rs 40 mg 2-14 tablet by ity of tablet 00:00: mouth in [place] the Medical morning. Branch furosemide 2022-1 Yes 40mg Take 1 Unive rs 40 mg 2-14 tablet by ity of tablet 00:00: mouth in [place] the Medical morning. Branch furosemide 2022-1 Yes 40mg Take 1 Unive rs 40 mg 2-14 tablet by ity of tablet 00:00: mouth in [place] the Medical morning. Branch furosemide 2022-1 Yes 40mg Take 1 Unive rs 40 mg 2-14 tablet by ity of tablet 00:00: mouth in [place] the Medical morning. Branch furosemide 2022-1 Yes 40mg Take 1 Unive rs 40 mg 2-14 tablet by [facility] of tablet 00:00: mouth in [place] the Medical morning. Branch furosemide 2022-1 Yes 40mg Take 1 Unive rs 40 mg 2-14 tablet by ity of tablet 00:00: mouth in [place] the Medical morning. Branch furosemide 2022-1 Yes 40mg Take 1 Unive rs 40 mg 2-14 tablet by ity of tablet 00:00: mouth in [place] the Medical morning. Branch furosemide 2022-1 Yes 40mg Take 1 Unive rs 40 mg 2-14 tablet by ity of tablet 00:00: mouth in [place] the Medical morning. Branch furosemide 2022-1 Yes 40mg Take 1 Unive rs 40 mg 2-14 tablet by ity of tablet 00:00: mouth in [place] the Medical morning. Branch furosemide 2022-1 Yes 40mg Take 1 Unive rs 40 mg 2-14 tablet by ity of tablet 00:00: mouth in [place] the Medical morning. Branch furosemide 2022-1 Yes 40mg Take 1 Unive rs 40 mg 2-14 tablet by ity of tablet 00:00: mouth in [place] the Medical morning. Branch furosemide 2022-1 Yes 40mg Take 1 Unive rs 40 mg 2-14 tablet by ity of tablet 00:00: mouth in [place] the Medical morning. Branch furosemide 2022-1 Yes 40mg Take 1 Unive rs 40 mg 2-14 tablet by ity of tablet 00:00: mouth in [place] the Medical morning. Branch furosemide 2022-1 Yes 40mg Take 1 Unive rs 40 mg 2-14 tablet by ity of tablet 00:00: mouth in [place] the Medical morning. Branch furosemide 2022-1 Yes 40mg Take 1 Unive rs 40 mg 2-14 tablet by ity of tablet 00:00: mouth in [place] the Medical morning. Branch furosemide 2022-1 Yes 40mg Take 1 Unive rs 40 mg 2-14 tablet by ity of tablet 00:00: mouth in [place] the Medical morning. Branch furosemide 2022-1 Yes 40mg Take 1 Unive rs 40 mg 2-14 tablet by ity of tablet 00:00: mouth in [place] the Medical morning. Branch furosemide 2022-1 Yes 40mg Take 1 Unive rs 40 mg 2-14 tablet by ity of tablet 00:00: mouth in [place] the Medical morning. Branch furosemide 2022-1 Yes 40mg Take 1 Unive rs 40 mg 2-14 tablet by ity of tablet 00:00: mouth in [place] the Medical morning. Branch furosemide 2022-1 Yes 40mg Take 1 Unive rs 40 mg 2-14 tablet by ity of tablet 00:00: mouth in [place] the Medical morning. Branch furosemide 2022-1 Yes 40mg Take 1 Unive rs 40 mg 2-14 tablet by ity of tablet 00:00: mouth in [place] the Medical morning. Branch furosemide 2022-1 Yes 40mg Take 1 Unive rs 40 mg 2-14 tablet by ity of tablet 00:00: mouth in [place] the Medical morning. Branch furosemide 2022-1 Yes 40mg Take 1 Unive rs 40 mg 2-14 tablet by ity of tablet 00:00: mouth in [place] the Medical morning. Branch furosemide 2022-1 Yes 40mg Take 1 Unive rs 40 mg 2-14 tablet by ity of tablet 00:00: mouth in [place] the Medical morning. Branch furosemide 2022-1 Yes 40mg Take 1 Unive rs 40 mg 2-14 tablet by ity of tablet 00:00: mouth in [place] the Medical morning. Branch furosemide 2022-1 Yes 40mg Take 1 Unive rs 40 mg 2-14 tablet by ity of tablet 00:00: mouth in [place] 00 the Medical morning. Branch furosemide 2022-1 Yes 40mg Take 1 Unive rs 40 mg 2-14 tablet by ity of tablet 00:00: mouth in [place] the Medical morning. Branch furosemide 2022-1 Yes 40mg Take 1 Unive rs 40 mg 2-14 tablet by ity of tablet 00:00: mouth in [place] the Medical morning. Branch furosemide 2022-1 Yes 40mg Take 1 Unive rs 40 mg 2-14 tablet by ity of tablet 00:00: mouth in [place] the Medical morning. Branch furosemide 2022-1 Yes 40mg Take 1 Unive rs 40 mg 2-14 tablet by ity of tablet 00:00: mouth in [place] the Medical morning. Branch furosemide 2022-1 Yes 40mg Take 1 Unive rs 40 mg 2-14 tablet by ity of tablet 00:00: mouth in [place] the Medical morning. Branch furosemide 2022-1 Yes 40mg Take 1 Unive rs 40 mg 2-14 tablet by ity of tablet 00:00: mouth in [place] the Medical morning. Branch furosemide 2022-1 Yes 40mg Take 1 Unive rs 40 mg 2-14 tablet by ity of tablet 00:00: mouth in [place] the Medical morning. Branch furosemide 2022-1 Yes 40mg Take 1 Unive rs 40 mg 2-14 tablet by ity of tablet 00:00: mouth in [place] the Medical morning. Branch furosemide 2022-1 Yes 40mg Take 1 Unive rs 40 mg 2-14 tablet by ity of tablet 00:00: mouth in [place] the Medical morning. Branch furosemide 2022-1 Yes 40mg Take 1 Unive rs 40 mg 2-14 tablet by ity of tablet 00:00: mouth in [place] the Medical morning. Branch furosemide 2022-1 Yes 40mg Take 1 Unive rs 40 mg 2-14 tablet by ity of tablet 00:00: mouth in [place] the Medical morning. Branch furosemide 2022-1 Yes 40mg Take 1 Unive rs 40 mg 2-14 tablet by ity of tablet 00:00: mouth in [place] the Medical morning. Branch furosemide 2022-1 Yes 40mg Take 1 Unive rs 40 mg 2-14 tablet by ity of tablet 00:00: mouth in [place] 00 the Medical morning. Branch furosemide 2022-1 Yes 40mg Take 1 Unive rs 40 mg 2-14 tablet by ity of tablet 00:00: mouth in [place] the Medical morning. Branch furosemide 2022-1 Yes 40mg Take 1 Unive rs 40 mg 2-14 tablet by ity of tablet 00:00: mouth in [place] the Medical morning. Branch furosemide 2022-1 Yes 40mg Take 1 Unive rs 40 mg 2-14 tablet by ity of tablet 00:00: mouth in [place] the Medical morning. Branch furosemide 2022-1 Yes 40mg Take 1 Unive rs 40 mg 2-14 tablet by ity of tablet 00:00: mouth in [place] the Medical morning. Branch furosemide 2022-1 Yes 40mg Take 1 Unive rs 40 mg 2-14 tablet by ity of tablet 00:00: mouth in [place] the Medical morning. Branch furosemide 2022-1 Yes 40mg Take 1 Unive rs 40 mg 2-14 tablet by ity of tablet 00:00: mouth in [place] the Medical morning. Branch furosemide 2022-1 Yes 40mg Take 1 Unive rs 40 mg 2-14 tablet by ity of tablet 00:00: mouth in [place] the Medical morning. Branch furosemide 2022-1 Yes 40mg Take 1 Unive rs 40 mg 2-14 tablet by ity of tablet 00:00: mouth in [place] the Medical morning. Branch furosemide 2022-1 Yes 40mg Take 1 Unive rs 40 mg 2-14 tablet by ity of tablet 00:00: mouth in [place] the Medical morning. Branch furosemide 2022-1 Yes 40mg Take 1 Unive rs 40 mg 2-14 tablet by ity of tablet 00:00: mouth in [place] the Medical morning. Branch furosemide 2022-1 Yes 40mg Take 1 Unive rs 40 mg 2-14 tablet by ity of tablet 00:00: mouth in [place] the Medical morning. Branch furosemide 2022-1 Yes 40mg Take 1 Unive rs 40 mg 2-14 tablet by ity of tablet 00:00: mouth in [place] the Medical morning. Branch furosemide 2022-1 Yes 40mg Take 1 Unive rs 40 mg 2-14 tablet by ity of tablet 00:00: mouth in [place] the Medical morning. Branch furosemide 2022-1 Yes 40mg Take 1 Unive rs 40 mg 2-14 tablet by ity of tablet 00:00: mouth in [place] the Medical morning. Branch furosemide 2021-10 Yes 40mg Take 1 Unive rs 40 mg 2-14 tablet by ity of tablet 00:00: mouth in [place] the Medical morning. Branch furosemide 2021- Yes 40mg Take 1 Unive rs 40 mg 2-14 tablet by ity of tablet 00:00: mouth in [place] the Medical morning. Branch furosemide 2021- Yes 40mg Take 1 Unive rs 40 mg 2-14 tablet by ity of tablet 00:00: mouth in [place] the Medical morning. Branch furosemide 2021-10 Yes 40mg Take 1 Unive rs 40 mg 2-14 tablet by ity of tablet 00:00: mouth in [place] the Medical morning. Branch furosemide 2021- Yes 40mg Take 1 Unive rs 40 mg 2-14 tablet by ity of tablet 00:00: mouth in [place] the Medical morning. Branch furosemide 2021- Yes 40mg Take 1 Unive rs 40 mg 2-14 tablet by ity of tablet 00:00: mouth in [place] the Medical morning. Branch furosemide 2021-10 Yes 40mg Take 1 Unive rs 40 mg 2-14 tablet by ity of tablet 00:00: mouth in [place] the Medical morning. Branch furosemide 2021-10 Yes 40mg Take 1 Unive rs 40 mg 2-14 tablet by ity of tablet 00:00: mouth in [place] the Medical morning. Branch furosemide 2021-10 Yes 40mg Take 1 Unive rs 40 mg 2-14 tablet by ity of tablet 00:00: mouth in [place] the Medical morning. Branch furosemide 2021- Yes 40mg Take 1 Unive rs 40 mg 2-14 tablet by ity of tablet 00:00: mouth in [place] the Medical morning. Branch furosemide 2021- Yes 40mg Take 1 Unive rs 40 mg 2-14 tablet by ity of tablet 00:00: mouth in [place] the Medical morning. Branch icosapent 2021-103- No [id number] 2g Take 2 [facility] ethyL 2-14 02-02 capsules ity of (VASCEPA) 1 00:00: 00:00 by mouth [place] gram 00 :00 in the Medical capsule morning Branch and 2 capsules in the evening. carvediloL 2021-10- No [id number] 6.25mg Take 1 [facility] 6.25 mg 2-14 02-02 tablet by ity of tablet 00:00: 00:00 mouth in [place] 00 :00 the Medical morning Branch and 1 tablet in the evening. Take with meals. icosapent 2021-10- No [id number] 2g Take 2 [facility] ethyL 2-14 02-02 capsules ity of (VASCEPA) 1 00:00: 00:00 by mouth [place] gram 00 :00 in the Medical capsule morning Branch and 2 capsules in the evening. carvediloL 2021-10- No [id number] 6.25mg Take 1 [facility] 6.25 mg 2-14 02-02 tablet by ity of tablet 00:00: 00:00 mouth in [place] 00 :00 the Medical morning Branch and 1 tablet in the evening. Take with meals. icosapent 2021-10- No [id number] 2g Take 2 [facility] ethyL 2-14 02-02 capsules ity of (VASCEPA) 1 00:00: 00:00 by mouth [place] gram 00 :00 in the Medical capsule morning Branch and 2 capsules in the evening. carvediloL 2021-10- No [id number] 6.25mg Take 1 [facility] 6.25 mg 2-14 02-02 tablet by ity of tablet 00:00: 00:00 mouth in [place] 00 :00 the Medical morning Branch and 1 tablet in the evening. Take with meals. icosapent 2021-10- No [id number] 2g Take 2 [facility] ethyL 2-14 02-02 capsules ity of (VASCEPA) 1 00:00: 00:00 by mouth [place] gram 00 :00 in the Medical capsule morning Branch and 2 capsules in the evening. carvediloL 2021-10- No [id number] 6.25mg Take 1 [facility] 6.25 mg 2-14 02-02 tablet by ity of tablet 00:00: 00:00 mouth in [place] 00 :00 the Medical morning Branch and 1 tablet in the evening. Take with meals. icosapent 2021-10- No [id number] 2g Take 2 [facility] ethyL 2-14 02-02 capsules ity of (VASCEPA) 1 00:00: 00:00 by mouth [place] gram 00 :00 in the Medical capsule morning Branch and 2 capsules in the evening. carvediloL 2021-10- No [id number] 6.25mg Take 1 [facility] 6.25 mg 2-14 02-02 tablet by ity of tablet 00:00: 00:00 mouth in [place] 00 :00 the Medical morning Branch and 1 tablet in the evening. Take with meals. icosapent 2021-10- No [id number] 2g Take 2 [facility] ethyL 2-14 02-02 capsules ity of (VASCEPA) 1 00:00: 00:00 by mouth [place] gram 00 :00 in the Medical capsule morning Branch and 2 capsules in the evening. carvediloL 2021-10- No [id number] 6.25mg Take 1 [facility] 6.25 mg 2-14 02-02 tablet by ity of tablet 00:00: 00:00 mouth in [place] 00 :00 the Medical morning Branch and 1 tablet in the evening. Take with meals. icosapent 2021-10 Yes [id number] 2g Take 2 [facility] n[facility] ethyL 0-31 capsules ity of (VASCEPA) 1 00:00: by mouth [place] gram 00 in the Medical capsule morning Branch and 2 capsules in the evening. carvediloL 2021-10 Yes [id number] 6.25mg Take 1 [facility] 6.25 mg 0-31 tablet by ity of tablet 00:00: mouth in [place] 00 the Medical morning Branch and 1 tablet in the evening. Take with meals. icosapent 2021-10 Yes [id number] 2g Take 2 U nivers ethyL 0-31 capsules ity of (VASCEPA) 1 00:00: by mouth [place] gram 00 in the Medical capsule morning Branch and 2 capsules in the evening. carvediloL 2021-10 Yes [id number] 6.25mg Take 1 [facility] 6.25 mg 0-31 tablet by ity of tablet 00:00: mouth in [place] 00 the Medical morning Branch and 1 tablet in the evening. Take with meals. icosapent 2021-10- No [id number] 2g Take 2 [facility] ethyL 0-31 12-14 capsules ity of (VASCEPA) 1 00:00: 00:00 by mouth [place] gram 00 :00 in the Medical capsule morning Branch and 2 capsules in the evening. carvediloL 2021-10- No [id number] 6.25mg Take 1 [facility] 6.25 mg 0-31 12-14 tablet by ity of tablet 00:00: 00:00 mouth in [place] 00 :00 the Medical morning Branch and 1 tablet in the evening. Take with meals. icosapent 2021-10- No [id number] 2g Take 2 [facility] ethyL 0-31 12-14 capsules ity of (VASCEPA) 1 00:00: 00:00 by mouth [place] gram 00 :00 in the Medical capsule morning Branch and 2 capsules in the evening. carvediloL 2021-10- No [id number] 6.25mg Take 1 [facility] 6.25 mg 0-31 12-14 tablet by ity of tablet 00:00: 00:00 mouth in [place] 00 :00 the Medical morning Branch and 1 tablet in the evening. Take with meals. carvediloL 2021-10 Yes [id number] 6.25mg Take 1 [facility] 6.25 mg 0-17 tablet by ity of tablet 00:00: mouth in [place] [address] the Medical morning Branch and 1 tablet in the evening. Take with meals. lisinopriL 2021-10 Yes [id number] 40mg Take 1 [facility] 40 mg 0-17 tablet by ity of tablet 00:00: mouth in [place] the morning. Branch carvediloL 2021-10 Yes [id number] 6.25mg Take 1 [facility] 6.25 mg 0-17 tablet by ity of tablet 00:00: mouth in [place] [address] the Medical morning Branch and 1 tablet in the evening. Take with meals. lisinopriL 2021-10 Yes [id number] 40mg Take 1 [facility] 40 mg 0-17 tablet by ity of tablet 00:00: mouth in [place] [address] the morning. Branch carvediloL 2021-10 Yes [id number] 6.25mg Take 1 [facility] 6.25 mg 0-17 tablet by ity of tablet 00:00: mouth in [place] [address] the Medical morning Branch and 1 tablet in the evening. Take with meals. lisinopriL 2021-10 Yes [id number] 40mg Take 1 [facility] 40 mg 0-17 tablet by ity of tablet 00:00: mouth in [place] 00 the Medical morning. Branch lisinopriL 2021-10 Yes [id number] 40mg Take 1 [facility] 40 mg 0-17 tablet by ity of tablet 00:00: mouth in [place] 00 the Medical morning. Branch lisinopriL 2021-10 Yes [id number] 40mg Take 1 [facility] 40 mg 0-17 tablet by ity of tablet 00:00: mouth in [place] the Medical morning. Branch lisinopriL 2021-10 Yes [id number] 40mg Take 1 [facility] 40 mg 0-17 tablet by ity of tablet 00:00: mouth in [place] 00 the Medical morning. Branch lisinopriL 2021-10 Yes [id number] 40mg Take 1 [facility] 40 mg 0-17 tablet by ity of tablet 00:00: mouth in [place] 00 the Medical morning. Branch lisinopriL 2021-10 Yes [id number] 40mg Take 1 [facility] 40 mg 0-17 tablet by ity of tablet 00:00: mouth in [place] the morning. Branch lisinopriL 2021-10 Yes [id number] 40mg Take 1 [facility] 40 mg 0-17 tablet by ity of tablet 00:00: mouth in [place] the Medical morning. Branch lisinopriL 2021-10- No [id number] 40mg Take 1 [facility] 40 mg 0-17 12-19 tablet by ity of tablet 00:00: 00:00 mouth in [place] 00 :00 the Medical morning. Branch carvediloL 2021-10- No [id number] 6.25mg Take 1 [facility] 6.25 mg 0-17 10-31 tablet by ity of tablet 00:00: 00:00 mouth in [place] 00 :00 the Medical morning Branch and 1 tablet in the evening. Take with meals. carvediloL 2021-10- No [id number] 6.25mg Take 1 [facility] 6.25 mg 0-17 10-17 tablet by ity of tablet 00:00: 00:00 mouth in [place] 00 :00 the Medical morning Branch and 1 tablet in the evening. Take with meals. lisinopriL 2021-10- No [id number] 40mg Take 1 [facility] 40 mg 0-17 10-17 tablet by ity of tablet 00:00: 00:00 mouth in [place] 00 :00 the Medical morning. Branch lisinopriL 2021-10- No [id number] 40mg Take 1 [facility] 40 mg 0-17 10-17 tablet by ity of tablet 00:00: 00:00 mouth in [place] 00 :00 the Medical morning. Branch carvediloL 2021-10- No [id number] 6.25mg Take 1 [facility] 6.25 mg 0-17 10-17 tablet by ity of tablet 00:00: 00:00 mouth in [place] 00 :00 the Medical morning Branch and 1 tablet in the evening. Take with meals. carvediloL 2021-10 Yes [id number] 3.125mg Take 1 [facility] 3.125 mg 0-13 tablet by ity of tablet 00:00: mouth in [place] 00 the Medical morning Branch and 1 tablet in the evening. Take with meals. lisinopriL 2021-10 Yes [id number] 40mg Take 1 [facility] 40 mg 0-13 tablet by ity of tablet 00:00: mouth in [place] 00 the Medical morning. Branch carvediloL 2021-10- No [id number] 3.125mg Take 1 [facility] 3.125 mg 0-13 10-17 tablet by ity o f tablet 00:00: 00:00 mouth in [place] 00 :00 the Medical morning Branch and 1 tablet in the evening. Take with meals. lisinopriL 2021-10- No [id number] 40mg Take 1 [facility] 40 mg 0-13 10-17 tablet by ity of tablet 00:00: 00:00 mouth in [place] 00 :00 the Medical morning. [place] Clotrimazol Clotrimazol 2021- No 1{appli BID Clotrimazo e-Betametha e-Betametha 05-2920 cation} le-Betamet sone 1-0.05 sone 1-0.05 00:00: [...] % % 00 :00 1-0.05 % carvediloL 0 Yes [id number] 3.125mg Take 1 [facility] 3.125 mg 7-29 tablet by ity of tablet 00:00: mouth in [place] 00 the Medical morning Branch and 1 tablet in the evening. Take with meals. carvediloL Yes [id number] 3.125mg Take 1 [facility] 3.125 mg 7-29 tablet by ity of tablet 00:00: mouth in [place] 00 the Medical morning Branch and 1 tablet in the evening. Take with meals. carvediloL 0 Yes [id number] 3.125mg Take 1 [facility] 3.125 mg 7-29 tablet by ity of tablet 00:00: mouth in [place] 00 the Medical morning Branch and 1 tablet in the evening. Take with meals. carvediloL 2021- No [id number] 3.125mg Take 1 [facility] 3.125 mg 7-29 10-13 tablet by ity o f tablet 00:00: 00:00 mouth in [place] 00 :00 the Medical morning Branch and 1 tablet in the evening. Take with meals. lisinopriL Yes [id number] 40mg Take 1 [facility] 40 mg 6-20 tablet by ity of tablet 00:00: mouth [place] 00 daily. Medical Branch carvediloL 0 Yes [id number] 3.125mg Take 1 [facility] 3.125 mg 6-20 tablet by ity of tablet 00:00: mouth 2 (two) Medical times Branch daily with meals. lisinopriL 0 Yes [id number] 40mg Take 1 [facility] 40 mg 6-20 tablet by ity of tablet 00:00: mouth [place] 00 daily. Medical Branch carvediloL 0 Yes [id number] 3.125mg Take 1 [facility] 3.125 mg 6-20 tablet by ity of tablet 00:00: mouth 2 00 (two) Medical times Branch daily with meals. lisinopriL 2021-0 Yes [id number] 40mg Take 1 [facility] 40 mg 6-20 tablet by ity of tablet 00:00: mouth [place] 00 daily. Medical Branch lisinopriL 0 Yes [id number] 40mg Take 1 [facility] 40 mg 6-20 tablet by ity of tablet 00:00: mouth [place] 00 daily. Medical Branch lisinopriL Yes [id number] 40mg Take 1 [facility] 40 mg 6-20 tablet by ity of tablet 00:00: mouth [place] 00 daily. Medical Branch lisinopriL Yes [id number] 40mg Take 1 [facility] 40 mg 6-20 tablet by ity of tablet 00:00: mouth [place] 00 daily. Medical Branch lisinopriL 0 2021- No [id number] 40mg Take 1 [facility] 40 mg 6-20 10-13 tablet by ity of tablet 00:00: 00:00 mouth [place] 00 :00 daily. Medical Branch carvediloL 2021- No [id number] 3.125mg Take 1 [facility] 3.125 mg 6-20 [...] See Admin K elsey nesium-Zinc 6-06 Instructio Se ybold [id number] 08:06: ns MG oral 26 Tablet Glucose Yes every 24 Jada Blood 6-06 hours Sey[facility] (Contour 08:06: Next Test) 26 in vitro Strip [place]-3 Yes Take by Jada 1000 MG 6-06 mouth [place] oral 08:06: Capsule 26 Multiple 2021-0 Yes 1{tbl} Take 1 Kelse y Vitamin [...] 400 MG oral 26 needed Tablet Isosorbide 2-0 Yes every 24 Cristofer sey Mononitrate 6-06 hours Seybold CR 30 MG 08:06: oral TABLET 26 SR 24 HR Glimepiride 2021-0 Yes every 12 [place] 4 MG oral 6-06 hours Seybold Tablet 08:06: 26 ezetimibe 2022-0 Yes 10mg Take 1 Univer s 10 mg 6-01 tablet by ity of tablet 00:00: mouth [place] 00 daily. Medical Branch ezetimibe 2-0 Yes 10mg Take 1 Univer s 10 mg 6-01 tablet by ity of tablet 00:00: mouth [place] 00 daily. Medical Branch ezetimibe 2-0 Yes 10mg Take 1 Univer s 10 mg 6-01 tablet by ity of tablet 00:00: mouth [place] 00 daily. Medical Branch ezetimibe 2-0 Yes 10mg Take 1 Univer s 10 mg 6-01 tablet by ity of tablet 00:00: mouth [place] 00 daily. Medical Branch ezetimibe 2022-0 Yes 10mg Take 1 Univer s 10 mg 6-01 tablet by ity of tablet 00:00: mouth [place] 00 daily. Medical Branch ezetimibe 2022-0 Yes 10mg Take 1 Univer s 10 mg 6-01 tablet by ity of tablet 00:00: mouth [place] 00 daily. Medical Branch ezetimibe 2022-0 Yes 10mg Take 1 Univer s 10 mg 6-01 tablet by ity of tablet 00:00: mouth [place] 00 daily. Medical Branch ezetimibe 2022-0 Yes 10mg Take 1 Univer s 10 mg 6-01 tablet by ity of tablet 00:00: mouth [place] 00 daily. Medical Branch ezetimibe 2022-0 Yes 10mg Take 1 Univer s 10 mg 6-01 tablet by ity of tablet 00:00: mouth [place] 00 daily. Medical Branch ezetimibe 2022-0 Yes 10mg Take 1 Univer s 10 mg 6-01 tablet by ity of tablet 00:00: mouth [place] 00 daily. Medical Branch ezetimibe 2022-0 Yes 10mg Take 1 Univer s 10 mg 6-01 tablet by ity of tablet 00:00: mouth [place] 00 daily. Medical Branch ezetimibe 2022-0 Yes 10mg Take 1 Univer s 10 mg 6-01 tablet by ity of tablet 00:00: mouth [place] 00 daily. Medical Branch ezetimibe 2022-0 Yes 10mg Take 1 Univer s 10 mg 6-01 tablet by ity of tablet 00:00: mouth [place] 00 daily. Medical Branch ezetimibe 2022-0 Yes 10mg Take 1 Univer s 10 mg 6-01 tablet by ity of tablet 00:00: mouth [place] 00 daily. Medical Branch ezetimibe 2022-0 Yes 10mg Take 1 Univer s 10 mg 6-01 tablet by ity of tablet 00:00: mouth [place] 00 daily. Medical Branch ezetimibe 2022-0 Yes 10mg Take 1 Univer s 10 mg 6-01 tablet by ity of tablet 00:00: mouth [place] 00 daily. Medical Branch ezetimibe 2022-0 Yes 10mg Take 1 Univer s 10 mg 6-01 tablet by ity of tablet 00:00: mouth [place] 00 daily. Medical Branch ezetimibe 2022-0 Yes 10mg Take 1 Univer s 10 mg 6-01 tablet by ity of tablet 00:00: mouth [place] 00 daily. Medical Branch ezetimibe 2022-0 Yes 10mg Take 1 Univer s 10 mg 6-01 tablet by ity of tablet 00:00: mouth [place] 00 daily. Medical Branch ezetimibe 2022-0 Yes 10mg Take 1 Univer s 10 mg 6-01 tablet by ity of tablet 00:00: mouth [place] 00 daily. Medical Branch ezetimibe 2022-0 2023- No 10mg Take 1 Unive rs 10 mg 611-02 tablet by ity of tablet 00:00: 00:00 mouth [place] 00 :00 daily. [facility] Branch ezetimibe 2021-0 2022- No 10mg Take 1 Unive rs 10 mg 6-10 02- tablet by ity of tablet 00:00: 00:00 mouth [place] 00 :00 daily. [facility] Branch ezetimibe 2021-0 2022- No 10mg Take 1 Unive rs 10 mg 6- tablet by ity of tablet 00:00: 00:00 mouth [place] 00 :00 daily. [facility] Branch ezetimibe 2021-0 2022- No 10mg Take 1 Unive rs 10 mg 03-01- tablet by ity of tablet 00:00: 00:00 mouth [place] 00 :00 daily. [facility] ezetimibe 2021-0 2022- No 10mg Take 1 Unive rs 10 mg 03-01 tablet by ity of tablet 00:00: 00:00 mouth [place] 00 :00 daily. [facility] Branch ezetimibe 0 2022- No 10mg Take 1 Unive rs 10 mg 03-01 tablet by ity of tablet 00:00: 00:00 mouth [place] 00 :00 daily. Medical Branch Liraglutide 2021- No 1.8mg Inject 1.8 Jada (Victoza) 5-06 05-06 mg into Seybol d 18 MG/3ML 09:11: 00:00 the skin subcutaneou 55 :00 daily s Solution Pen-injecto r Topiramate 2021- No 50mg Take 50 mg Jada 50 MG oral 5-06 05-06 by mouth Seyb old Tablet 08:36: 00:00 in the 06 :00 morning and 50 mg in the evening. Melatonin 3 2021- Yes 5mg QD Take 5 mg K [...] 5-06 hours Seybold Tablet 08:34: 33 Tamsulosin 0 Yes TAKE ONE Cristofer sey HCl 0.4 MG 5-06 (1) Seybold oral 08:34: CAPSULE BY Capsule 33 MOUTH TWICE DAILY *NEEDS TO BE SEEN EVERY 6 MONTHS* Aspirin Yes 1{tbl} Take 1 Jada (Aspirin 5-06 tablet by Seybol d 81) 81 MG 08:34: mouth oral 32 Chewable Tablet Calcium-Mag Yes See Admin K elsey nesium-Zinc 5-06 Instructio Se ybold [id number] 08:34: ns MG oral 32 Tablet Glucose Yes every 24 Jada Blood 5-06 hours Seybold (Contour 08:34: Next Test) 32 in vitro Strip [place]-3 Yes Take by Jada 1000 MG 5-06 mouth [place] oral 08:34: Capsule 32 Multiple 2021-0 Yes 1{tbl} Take 1 Kelse y Vitamin 5-06 tablet by Seybold (Multi-Sheryl 08:34: mouth min) oral 32 daily Tablet Carvedilol Yes 6.25mg Take 6.25 Jada 6.25 MG 5-06 mg by Seybold oral Tablet 08:34: mouth in 32 the morning and 6.25 mg in the evening. Take with meals. Clopidogrel 2021-0 Yes 1{tbl} Take 1 Ke l[place] Bisulfate 5-06 tablet by Seybo ld 75 MG oral 08:34: mouth Tablet 32 daily Metformin 2021-0 Yes 1{tbl} Take 1 Doreen ey HCl 1000 MG 5-06 tablet by Sey bold oral Tablet 08:34: mouth in 32 the morning and 1 tablet in the evening. Take with meals. Liraglutide 0 Yes [id number] 1.8mg Inject 1.8 Jada (Victoza) 5-06 mg into Seybold 18 MG/3ML 00:00: the skin subcutaneou 00 daily s Solution Pen-injecto r Liraglutide 2-0 Yes [id number] 1.8mg Inject 1.8 Jada (Victoza) 5-06 mg into Seybold 18 MG/3ML 00:00: the skin subcutaneou 00 daily s Solution Pen-injecto r furosemide 2-0 Yes 40mg Take 1 Unive rs 40 [...] mouth [place] 00 daily. Medical Branch furosemide 2021-0 Yes 40mg Take 1 Unive rs 40 mg 1-28 tablet by ity of tablet 00:00: mouth [place] 00 daily. Medical Branch furosemide 2021-0 Yes 40mg Take 1 Unive rs 40 mg 1-28 tablet by ity of tablet 00:00: mouth [place] 00 daily. Medical Branch furosemide 2021-0 Yes 40mg Take 1 Unive rs 40 mg 1-28 tablet by ity of tablet 00:00: mouth [place] 00 daily. Medical Branch Furosemide 2021-0 Yes 1{tbl} Take 1 Cristofer sey 40 MG oral 1-28 tablet by Seyb old Tablet 00:00: mouth 00 Furosemide 2021-0 Yes 1{tbl} Take 1 Cristofer sey 40 MG oral 1-28 tablet by Seyb old Tablet 00:00: mouth 00 furosemide 2021-0 2022- No 40mg Take 1 [facility] ers 40 mg 1-28 12-14 tablet by ity of tablet 00:00: 00:00 mouth [place] 00 :00 daily. Medical Branch furosemide 2021-0 2022- No 40mg Take 1 [facility] ers 40 mg 1-28 12-14 tablet by ity of tablet 00:00: 00:00 mouth [place] 00 :00 daily. Medical Branch spironolact 2021-0 Yes [id number] 25mg Take 1 [facility] one 25 mg 1-25 tablet by ity o f tablet 00:00: mouth [place] 00 daily. Medical Branch icosapent 2021-0 Yes [id number] 2g Take 2 U nivers ethyL 1-25 capsules ity of (VASCEPA) 1 00:00: by mouth 2 [place] gram 00 (two) Medical capsule times Branch daily. spironolact 2021-0 Yes [id number] 25mg Take 1 [facility] one 25 mg 1-25 tablet by ity o f tablet 00:00: mouth [place] 00 daily. Medical Branch icosapent 2021-0 Yes [id number] 2g Take 2 U nivers ethyL 1-25 capsules ity of (VASCEPA) 1 00:00: by mouth 2 [place] gram 00 (two) Medical capsule times Branch daily. spironolact 2021-0 Yes [id number] 25mg Take 1 [facility] one 25 mg 1-25 tablet by ity o f tablet 00:00: mouth [place] 00 daily. Medical Branch icosapent Yes [id number] 2g Take 2 U nivers ethyL 1-25 capsules ity of (VASCEPA) 1 00:00: by mouth 2 [place] gram 00 (two) Medical capsule times Branch daily. spironolact Yes [id number] 25mg Take 1 [facility] one 25 mg 1-25 tablet by ity o f tablet 00:00: mouth [place] 00 daily. Medical Branch icosapent Yes [id number] 2g Take 2 U nivers ethyL 1-25 capsules ity of (VASCEPA) 1 00:00: by mouth 2 [place] gram 00 (two) Medical capsule times Branch daily. spironolact Yes [id number] 25mg Take 1 [facility] one 25 mg 1-25 tablet by ity o f tablet 00:00: mouth [place] 00 daily. Medical Branch icosapent Yes [id number] 2g Take 2 U nivers ethyL 1-25 capsules ity of (VASCEPA) 1 00:00: by mouth 2 [place] gram 00 (two) Medical capsule times Branch daily. spironolact Yes [id number] 25mg Take 1 [facility] one 25 mg 1-25 tablet by ity o f tablet 00:00: mouth [place] 00 daily. Medical Branch icosapent Yes [id number] 2g Take 2 U nivers ethyL 1-25 capsules ity of (VASCEPA) 1 00:00: by mouth 2 [place] gram 00 (two) Medical capsule times Branch daily. spironolact 0 Yes [id number] 25mg Take 1 [facility] one 25 mg 1-25 tablet by ity o f tablet 00:00: mouth [place] 00 daily. Medical Branch icosapent Yes [id number] 2g Take 2 U nivers ethyL 1-25 capsules ity of (VASCEPA) 1 00:00: by mouth 2 [place] gram 00 (two) Medical capsule times Branch daily. spironolact Yes [id number] 25mg Take 1 [facility] one 25 mg 1-25 tablet by ity o f tablet 00:00: mouth [place] 00 daily. Medical Branch icosapent Yes [id number] 2g Take 2 U nivers ethyL 1-25 capsules ity of (VASCEPA) 1 00:00: by mouth 2 [place] gram 00 (two) Medical capsule times Branch daily. spironolact 0 Yes [id number] 25mg Take 1 [facility] one 25 mg 1-25 tablet by ity o f tablet 00:00: mouth [place] 00 daily. Medical Branch icosapent 0 Yes [id number] 2g Take 2 U nivers ethyL 1-25 capsules ity of (VASCEPA) 1 00:00: by mouth 2 [place] gram 00 (two) Medical capsule times Branch daily. spironolact Yes [id number] 25mg Take 1 [facility] one 25 mg 1-25 tablet by ity o f tablet 00:00: mouth [place] 00 daily. Medical Branch icosapent 0 Yes [id number] 2g Take 2 U nivers ethyL 1-25 capsules ity of (VASCEPA) 1 00:00: by mouth 2 [place] gram 00 (two) Medical capsule times Branch daily. spironolact Yes [id number] 25mg Take 1 [facility] one 25 mg 1-25 tablet by ity o f tablet 00:00: mouth [place] 00 daily. Medical Branch icosapent Yes [id number] 2g Take 2 U nivers ethyL 1-25 capsules ity of (VASCEPA) 1 00:00: by mouth 2 [place] gram (two) Medical capsule times Branch daily. spironolact 0 Yes [id number] 25mg Take 1 [facility] one 25 mg 1-25 tablet by ity o f tablet 00:00: mouth [place] 00 daily. Medical Branch icosapent 0 Yes [id number] 2g Take 2 U nivers ethyL 1-25 capsules ity of (VASCEPA) 1 00:00: by mouth 2 [place] gram 00 (two) Medical capsule times Branch daily. spironolact 2021-0 Yes [id number] 25mg Take 1 [facility] one 25 mg 1-25 tablet by ity o f tablet 00:00: mouth [place] 00 daily. Medical Branch icosapent 0 Yes [id number] 2g Take 2 U nivers ethyL 1-25 capsules ity of (VASCEPA) 1 00:00: by mouth 2 [place] gram 00 (two) Medical capsule times Branch daily. spironolact Yes [id number] 25mg Take 1 [facility] one 25 mg 1-25 tablet by ity o f tablet 00:00: mouth [place] 00 daily. Medical Branch icosapent Yes [id number] 2g Take 2 U nivers ethyL 1-25 capsules ity of (VASCEPA) 1 00:00: by mouth 2 [place] gram 00 (two) Medical capsule times Branch daily. spironolact Yes [id number] 25mg Take 1 [facility] one 25 mg 1-25 tablet by ity o f tablet 00:00: mouth [place] 00 daily. Medical Branch spironolact Yes [id number] 25mg Take 1 [facility] one 25 mg 1-25 tablet by ity o f tablet 00:00: mouth [place] 00 daily. Medical Branch spironolact Yes [id number] 25mg Take 1 [facility] one 25 mg 1-25 tablet by ity o f tablet 00:00: mouth [place] 00 daily. Medical Branch spironolact Yes [id number] 25mg Take 1 [facility] one 25 mg 1-25 tablet by ity o f tablet 00:00: mouth [place] 00 daily. Medical Branch spironolact Yes [id number] 25mg Take 1 [facility] one 25 mg 1-25 tablet by ity o f tablet 00:00: mouth [place] 00 daily. Medical Branch Icosapent Yes Jada Ethyl 1 g 1-25 [facility] oral 00:00: Capsule 00 Spironolact 2021-0 Yes 1{tbl} Take 1 Ke lsey one 25 MG 1-25 tablet by Seybo ld oral Tablet 00:00: mouth 00 Icosapent 0 Yes Jada Ethyl 1-25 [facility] (Vascepa) 1 00:00: g oral 00 Capsule Spironolact 0 Yes 1{tbl} Take 1 Ke l[facility] one 25 MG 1-25 tablet by Seybo ld oral Tablet 00:00: mouth 00 spironolact 2021-0 2021- No [id number] 25mg Take 1 [facility] one 25 mg 1-25 12-19 tablet by ity of tablet 00:00: 00:00 mouth [place] 00 :00 daily. Medical Branch icosapent 2021- No [id number] 2g Take 2 [facility] ethyL 1-25 10-31 [...] Swabs 70 % 00:00: 00 Alcohol Alcohol 2021-0 No Alcohol [...] n/s 00:00: strips n/s 00 Glucose Glucose 2021-0 No TID Glucose testing testing 1-14 testing strips n/s strips n/s 00:00: strips n/s 00 Glucose Glucose 2021-0 No TID Glucose [...] n/s 00:00: strips n/s 00 Glucose Glucose 2021-0 No TID Glucose testing testing 1-14 testing strips n/s strips n/s 00:00: strips n/s 00 Glucose Glucose 2021-0 No TID Glucose testing testing 1-14 testing strips n/s strips n/s 00:00: strips n/s 00 Glucometer Glucometer 2021-0 2021- No Glucometer n/s n/s 10-14 n/s 00:00: 00:00 00 :00 Glucometer Glucometer 2-0 2021- No Glucometer n/s n/s 10-14 n/s 00:00: 00:00 00 :00 Glucometer Glucometer 2021-0 2021- No Glucometer n/s n/s 10-14 n/s 00:00: 00:00 00 :00 Glucometer Glucometer 2-0 2021- No Glucometer n/s n/s 10-14 n/s [...] mouth Seybo ld Tablet 00:00: daily 00 Ezetimibe 2020-10 Yes 10mg Take 10 mg Ke lsey 10 MG oral 0-28 by mouth Seybo ld Tablet 00:00: daily 00 ezetimibe 2020-10- No 10mg Take 1 Unive rs 10 mg 0-28 03-01 tablet by ity of tablet 00:00: 00:00 mouth [place] 00 :00 daily. Medical Branch metFORMIN 2020-10 Yes 1000mg Take 1,000 [facility] 1,000 mg 0-15 mg by ity of tablet 09:33: mouth 2 [place] [address] (two) Medical times Branch daily with meals. glimepiride 2020-10 Yes 4mg Take 4 mg U nivers 4 mg tablet 0-15 by mouth 2 it y of 09:33: (two) [place] [address] times Medical daily. Branch UBIDECAR/FI 2020-10 Yes Take by Uni vers SH 0-15 mouth. ity of OIL/OMEGA-3 09:33: [place] /OSMIN (CO 33 [facility] [id number] [place] OIL-OMEGA 3-E ORAL) SITagliptin 2020-10 Yes 100mg [...] mouth ity of hr capsule 09:33: daily. [place] [address] Medical Branch multivitami 2020-10 Yes 1{tbl} Take 1 Un todd n tablet 0-15 tablet by ity of 09:33: mouth [place] 33 daily. Medical Branch CALCIUM-MAG 2020-10 Yes Take by Uni vers NESIUM-ZINC 0-15 mouth ity of ORAL 09:33: daily. [place] [address] Medical Branch metFORMIN 2020-10 Yes 1000mg Take 1,000 [facility] 1,000 mg 0-15 mg by ity of tablet 09:33: mouth 2 [place] [address] (two) Medical times [place] daily with meals. glimepiride 2020-10 Yes 4mg Take 4 mg U nivers 4 mg tablet 0-15 by mouth 2 it y of 09:33: (two) [place] 33 times Medical daily. Branch UBIDECAR/FI 2020-10 Yes Take by Uni vers SH 0-15 mouth. ity of OIL/OMEGA-3 09:33: [place] /OSMIN (CO 33 [facility] [id number] [place] OIL-OMEGA 3-E ORAL) SITagliptin 2020-10 Yes 100mg [...] mouth ity of hr capsule 09:33: daily. [place] [address] Medical Branch multivitami 2020-10 Yes 1{tbl} Take 1 Un todd n tablet 0-15 tablet by ity of 09:33: mouth [place] 33 daily. Medical Branch CALCIUM-MAG 2020-10 Yes Take by Uni vers NESIUM-ZINC 0-15 mouth ity of ORAL 09:33: daily. [place] [address] Medical Branch metFORMIN 2020-10 Yes 1000mg Take 1,000 [facility] 1,000 mg 0-15 mg by ity of tablet 09:33: mouth 2 [place] 33 (two) Medical times Branch daily with meals. glimepiride 2020-10 Yes 4mg Take 4 mg U nivers 4 mg tablet 0-15 by mouth 2 it y of 09:33: (two) [place] [address] times Medical daily. Branch UBIDECAR/FI 2020-10 Yes Take by Uni vers SH 0-15 mouth. ity of OIL/OMEGA-3 09:33: [place] /OSMIN (SC 33 Medical [id number] Branch OIL-OMEGA 3-E ORAL) SITagliptin 2020-10 Yes [...] mouth ity of hr capsule 09:33: daily. [place] [address] Medical Branch multivitami 2020-10 Yes 1{tbl} Take 1 Un todd n tablet 0-15 tablet by ity of 09:33: mouth [place] 33 daily. Medical Branch CALCIUM-MAG 2020-10 Yes Take by Uni vers NESIUM-ZINC 0-15 mouth ity of ORAL 09:33: daily. [place] [address] Medical Branch metFORMIN 2020-10 Yes 1000mg Take 1,000 [facility] 1,000 mg 0-15 mg by ity of tablet 09:33: mouth 2 [place] [address] (two) Medical times Branch daily with meals. glimepiride 2020-10 Yes 4mg Take 4 mg U nivers 4 mg tablet 0-15 by mouth 2 it y of 09:33: (two) [place] [address] times Medical daily. Branch UBIDECAR/FI 2020-10 Yes Take by Uni vers SH 0-15 mouth. ity of OIL/OMEGA-3 09:33: [place] /OSMIN (CO 33 Medical [id number] Branch OIL-OMEGA 3-E ORAL) SITagliptin 2020-10 Yes [...] mouth ity of hr capsule 09:33: daily. [place] [address] Medical Branch multivitami 2020-10 Yes 1{tbl} Take 1 Un todd n tablet 0-15 tablet by ity of 09:33: mouth [place] 33 daily. Medical Branch CALCIUM-MAG 2020-10 Yes Take by Uni vers NESIUM-ZINC 0-15 mouth ity of ORAL 09:33: daily. [place] [address] Medical Branch metFORMIN 2020-10 Yes 1000mg Take 1,000 [facility] 1,000 mg 0-15 mg by ity of tablet 09:33: mouth 2 [place] [address] (two) Medical times [place] daily with meals. glimepiride 2020-10 Yes 4mg Take 4 mg U nivers 4 mg tablet 0-15 by mouth 2 it y of 09:33: (two) [place] [address] times Medical daily. Branch UBIDECAR/FI 2020-10 Yes Take by Uni vers SH 0-15 mouth. ity of OIL/OMEGA-3 09:33: [place] /OSMIN (CO 33 Medical [id number] Branch OIL-OMEGA 3-E ORAL) SITagliptin 2020-10 Yes [...] mouth ity of hr capsule 09:33: daily. [place] [address] Medical Branch multivitami 2020-10 Yes 1{tbl} Take 1 Un todd n tablet 0-15 tablet by ity of 09:33: mouth [place] 33 daily. Medical Branch CALCIUM-MAG 2020-10 Yes Take by Uni vers NESIUM-ZINC 0-15 mouth ity of ORAL 09:33: daily. [place] [address] Medical Branch metFORMIN 2020-10 Yes 1000mg Take 1,000 [facility] 1,000 mg 0-15 mg by ity of tablet 09:33: mouth 2 [place] [address] (two) Medical times Branch daily with meals. glimepiride 2020-10 Yes 4mg Take 4 mg U nivers 4 mg tablet 0-15 by mouth 2 it y of 09:33: (two) [place] [address] times Medical daily. Branch UBIDECAR/FI 2020-10 Yes Take by Uni vers SH 0-15 mouth. ity of OIL/OMEGA-3 09:33: [place] /OSMIN ([facility] Medical [id number] Branch OIL-OMEGA 3-E ORAL) SITagliptin 2020-10 Yes 100mg Take 100 U nivers (JANUVIA) 0-15 mg by ity of 100 mg 09:33: mouth [place] tablet 33 daily. Medical Branch liraglutide 2020-10 Yes 1.8mg inject 1.8 Univers (VICTOZA 0-15 mg under ity of 3-АЛЕКСАНДР SC) 09:33: [place] 33 daily. [facility] tamsulosin 2020-10 Yes Take by [facility] ers 0.4 mg 24 0-15 mouth ity of hr capsule 09:33: daily. [place] [address] Medical Branch multivitami 2020-10 Yes 1{tbl} Take 1 Un todd n tablet 0-15 tablet by ity of 09:33: mouth [place] 33 daily. Medical Branch CALCIUM-MAG 2020-10 Yes Take by Uni vers NESIUM-ZINC 0-15 mouth ity of ORAL 09:33: daily. [place] 33 Medical Branch metFORMIN 2020-10 Yes 1000mg Take 1,000 Univers 1,000 mg 0-15 mg by ity of tablet 09:33: mouth 2 [place] [address] (two) Medical times [place] daily with meals. glimepiride 2020-10 Yes 4mg Take 4 mg U nivers 4 mg tablet 0-15 by mouth 2 it y of 09:33: (two) [place] [address] times Medical daily. Branch UBIDECAR/FI 2020-10 Yes Take by Uni vers SH 0-15 mouth. ity of OIL/OMEGA-3 09:33: [place] /OSMIN (SC 33 Medical [id number] [place] OIL-OMEGA 3-E ORAL) SITagliptin 2020-10 Yes 100mg [...] mouth ity of hr capsule 09:33: daily. [address] Branch multivitami 2020-10 Yes 1{tbl} Take 1 Un todd n tablet 0-15 tablet by ity of 09:33: mouth [place] [address] daily. Medical Branch CALCIUM-MAG 2020-10 Yes Take by Uni vers NESIUM-ZINC 0-15 mouth ity of ORAL 09:33: daily. [address] metFORMIN 2020-10 Yes 1000mg Take 1,000 Univers 1,000 mg 0-15 mg by ity of tablet 09:33: mouth 2 [place] [address] (two) [facility] daily with meals. glimepiride 2020-10 Yes 4mg Take 4 mg U nivers 4 mg tablet 0-15 by mouth 2 it y of 09:33: (two) [place] [address] times Medical daily. Branch UBIDECAR/FI 2020-10 Yes Take by Uni vers SH 0-15 mouth. ity of OIL/OMEGA-3 09:33: [place] /OSMIN (CO 33 Medical [id number] [place] OIL-OMEGA 3-E ORAL) SITagliptin 2020-10 Yes 100mg [...] mouth ity of hr capsule 09:33: daily. [place] [address] Medical Branch multivitami 2020-10 Yes 1{tbl} Take 1 Un todd n tablet 0-15 tablet by ity of 09:33: mouth [place] 33 daily. Medical Branch CALCIUM-MAG 2020-10 Yes Take by Uni vers NESIUM-ZINC 0-15 mouth ity of ORAL 09:33: daily. [place] [address] Medical Branch metFORMIN 2020-10 Yes 1000mg Take 1,000 Univers 1,000 mg 0-15 mg by ity of tablet 09:33: mouth 2 [place] [address] (two) Medical times Branch daily with meals. glimepiride 2020-10 Yes 4mg Take 4 mg U nivers 4 mg tablet 0-15 by mouth 2 it y of 09:33: (two) [place] [address] times Medical daily. Branch UBIDECAR/FI 2020-10 Yes Take by Uni vers SH 0-15 mouth. ity of OIL/OMEGA-3 09:33: [place] /OSMIN (SC 33 Medical [id number] Branch OIL-OMEGA 3-E ORAL) SITagliptin 2020-10 Yes [...] mouth ity of hr capsule 09:33: daily. [place] [address] Medical Branch multivitami 2020-10 Yes 1{tbl} Take 1 Un todd n tablet 0-15 tablet by ity of 09:33: mouth [place] 33 daily. Medical Branch CALCIUM-MAG 2020-10 Yes Take by Uni vers NESIUM-ZINC 0-15 mouth ity of ORAL 09:33: daily. [address] Branch metFORMIN 2020-10 Yes 1000mg Take 1,000 Univers 1,000 mg 0-15 mg by ity of tablet 09:33: mouth 2 [place] [address] (two) Medical times [place] daily with meals. glimepiride 2020-10 Yes 4mg Take 4 mg U nivers 4 mg tablet 0-15 by mouth 2 it y of 09:33: (two) [place] [address] times Medical daily. Branch UBIDECAR/FI 2020-10 Yes Take by Uni vers SH 0-15 mouth. ity of OIL/OMEGA-3 09:33: [place] /OSMIN (CO 33 Medical [id number] [place] OIL-OMEGA 3-E ORAL) SITagliptin 2020-10 Yes 100mg [...] mouth ity of hr capsule 09:33: daily. [address] Branch multivitami 2020-10 Yes 1{tbl} Take 1 Un todd n tablet 0-15 tablet by ity of 09:33: mouth [place] 33 daily. Medical Branch CALCIUM-MAG 2020-10 Yes Take by Uni vers NESIUM-ZINC 0-15 mouth ity of ORAL 09:33: daily. [address] metFORMIN 2020-10 Yes 1000mg Take 1,000 Univers 1,000 mg 0-15 mg by ity of tablet 09:33: mouth 2 [place] [address] (two) [facility] daily with meals. glimepiride 2020-10 Yes 4mg Take 4 mg U nivers 4 mg tablet 0-15 by mouth 2 it y of 09:33: (two) [place] [address] times Medical daily. Branch UBIDECAR/FI 2020-10 Yes Take by Uni vers SH 0-15 mouth. ity of OIL/OMEGA-3 09:33: [place] /OSMIN (CO 33 [facility] [id number] [place] OIL-OMEGA 3-E ORAL) SITagliptin 2020-10 Yes 100mg [...] mouth ity of hr capsule 09:33: daily. [place] [address] Medical Branch multivitami 2020-10 Yes 1{tbl} Take 1 Un todd n tablet 0-15 tablet by ity of 09:33: mouth [place] 33 daily. Medical Branch CALCIUM-MAG 2020-10 Yes Take by Uni vers NESIUM-ZINC 0-15 mouth ity of ORAL 09:33: daily. [place] [address] Medical Branch metFORMIN 2020-10 Yes 1000mg Take 1,000 Univers 1,000 mg 0-15 mg by ity of tablet 09:33: mouth 2 [place] [address] (two) Medical times Branch daily with meals. glimepiride 2020-10 Yes 4mg Take 4 mg U nivers 4 mg tablet 0-15 by mouth 2 it y of 09:33: (two) [place] [address] times Medical daily. Branch UBIDECAR/FI 2020-10 Yes Take by Uni vers SH 0-15 mouth. ity of OIL/OMEGA-3 09:33: [place] /OSMIN (SC 33 Medical [id number] Branch OIL-OMEGA 3-E ORAL) SITagliptin 2020-10 Yes [...] mouth ity of hr capsule 09:33: daily. [place] [address] Medical Branch multivitami 2020-10 Yes 1{tbl} Take 1 Un todd n tablet 0-15 tablet by ity of 09:33: mouth [place] 33 daily. Medical Branch CALCIUM-MAG 2020-10 Yes Take by Uni vers NESIUM-ZINC 0-15 mouth ity of ORAL 09:33: daily. [address] Branch metFORMIN 2020-10 Yes 1000mg Take 1,000 Univers 1,000 mg 0-15 mg by ity of tablet 09:33: mouth 2 [place] [address] (two) Medical [facility] daily with meals. glimepiride 2020-10 Yes 4mg Take 4 mg U nivers 4 mg tablet 0-15 by mouth 2 it y of 09:33: (two) [place] [address] times Medical daily. Branch UBIDECAR/FI 2020-10 Yes Take by Uni vers SH 0-15 mouth. ity of OIL/OMEGA-3 09:33: [place] /OSMIN (CO 33 Medical [id number] [place] OIL-OMEGA 3-E ORAL) SITagliptin 2020-10 Yes 100mg [...] mouth ity of hr capsule 09:33: daily. [address] Branch multivitami 2020-10 Yes 1{tbl} Take 1 Un todd n tablet 0-15 tablet by ity of 09:33: mouth [place] 33 daily. Medical Branch CALCIUM-MAG 2020-10 Yes Take by Uni vers NESIUM-ZINC 0-15 mouth ity of ORAL 09:33: daily. [address] Branch metFORMIN 2020-10 Yes 1000mg Take 1,000 Univers 1,000 mg 0-15 mg by ity of tablet 09:33: mouth 2 [place] [address] (two) Medical [facility] daily with meals. glimepiride 2020-10 Yes 4mg Take 4 mg U nivers 4 mg tablet 0-15 by mouth 2 it y of 09:33: (two) [place] 33 times Medical daily. Branch UBIDECAR/FI 2020-10 Yes Take by Uni vers SH 0-15 mouth. ity of OIL/OMEGA-3 09:33: [place] /OSMIN (CO 33 Medical [id number] [place] OIL-OMEGA 3-E ORAL) SITagliptin 2020-10 Yes 100mg [...] mouth ity of hr capsule 09:33: daily. [place] [address] Medical Branch multivitami 2020-10 Yes 1{tbl} Take 1 Un todd n tablet 0-15 tablet by ity of 09:33: mouth [place] 33 daily. Medical Branch CALCIUM-MAG 2020-10 Yes Take by Uni vers NESIUM-ZINC 0-15 mouth ity of ORAL 09:33: daily. [place] [address] Medical Branch metFORMIN 2020-10 Yes 1000mg Take 1,000 Univers 1,000 mg 0-15 mg by ity of tablet 09:33: mouth 2 [place] [address] (two) Medical times Branch daily with meals. glimepiride 2020-10 Yes 4mg Take 4 mg U nivers 4 mg tablet 0-15 by mouth 2 it y of 09:33: (two) [place] [address] times Medical daily. Branch UBIDECAR/FI 2020-10 Yes Take by Uni vers SH 0-15 mouth. ity of OIL/OMEGA-3 09:33: [place] /OSMIN ([facility] Medical [id number] [place] OIL-OMEGA 3-E ORAL) SITagliptin 2020-10 Yes 100mg [...] mouth ity of hr capsule 09:33: daily. [place] [address] Medical Branch multivitami 2020-10 Yes 1{tbl} Take 1 Un todd n tablet 0-15 tablet by ity of 09:33: mouth [place] 33 daily. Medical Branch CALCIUM-MAG 2020-10 Yes Take by Uni vers NESIUM-ZINC 0-15 mouth ity of ORAL 09:33: daily. [place] [address] Medical Branch metFORMIN 2020-10 Yes 1000mg Take 1,000 Univers 1,000 mg 0-15 mg by ity of tablet 09:33: mouth 2 [place] [address] (two) Medical times [place] daily with meals. glimepiride 2020-10 Yes 4mg Take 4 mg U nivers 4 mg tablet 0-15 by mouth 2 it y of 09:33: (two) [place] [address] times Medical daily. Branch UBIDECAR/FI 2020-10 Yes Take by Uni vers SH 0-15 mouth. ity of OIL/OMEGA-3 09:33: [place] /OSMIN ([facility] Medical [id number] Branch OIL-OMEGA 3-E ORAL) SITagliptin 2020-10 Yes 100mg Take 100 U nivers (JANUVIA) 0-15 mg by ity of 100 mg 09:33: mouth [place] tablet 33 daily. Medical Branch liraglutide 2020-10 Yes 1.8mg inject 1.8 [facility] (VICTOZA 0-15 mg under ity of 3-АЛЕКСАНДР SC) 09:33: [place] 33 daily. Medical Branch tamsulosin 2020-10 Yes Take by [facility] ers 0.4 mg 24 0-15 mouth ity of hr capsule 09:33: daily. [place] [address] Medical Branch multivitami 2020-10 Yes 1{tbl} Take 1 Un todd n tablet 0-15 tablet by ity of 09:33: mouth [place] 33 daily. Medical Branch CALCIUM-MAG 2020-10 Yes Take by Uni vers NESIUM-ZINC 0-15 mouth ity of ORAL 09:33: daily. [place] [address] Medical Branch metFORMIN 2020-10 Yes 1000mg Take 1,000 Univers 1,000 mg 0-15 mg by ity of tablet 09:33: mouth 2 [place] [address] (two) Medical [facility] daily with meals. glimepiride 2020-10 Yes 4mg Take 4 mg U nivers 4 mg tablet 0-15 by mouth 2 it y of 09:33: (two) [place] 33 times Medical daily. Branch UBIDECAR/FI 2020-10 Yes Take by Uni vers SH 0-15 mouth. ity of OIL/OMEGA-3 09:33: [place] /OSMIN (SC 33 [facility] [id number] [place] OIL-OMEGA 3-E ORAL) SITagliptin 2020-10 Yes 100mg [...] mouth ity of hr capsule 09:33: daily. [place] [address] Medical Branch multivitami 2020-10 Yes 1{tbl} Take 1 Un todd n tablet 0-15 tablet by ity of 09:33: mouth [place] 33 daily. Medical Branch CALCIUM-MAG 2020-10 Yes Take by Uni vers NESIUM-ZINC 0-15 mouth ity of ORAL 09:33: daily. [place] [address] Medical Branch metFORMIN 2020-10 Yes 1000mg Take 1,000 Univers 1,000 mg 0-15 mg by ity of tablet 09:33: mouth 2 [place] [address] (two) Medical times Branch daily with meals. glimepiride 2020-10 Yes 4mg Take 4 mg U nivers 4 mg tablet 0-15 by mouth 2 it y of 09:33: (two) [place] [address] times Medical daily. Branch UBIDECAR/FI 2020-10 Yes Take by Uni vers SH 0-15 mouth. ity of OIL/OMEGA-3 09:33: [place] /OSMIN ([address] [id number] by [facility] OIL-OMEGA 3-E ORAL) SITagliptin 2020-10 Yes 100mg [...] mouth ity of hr capsule 09:33: daily. [place] [address] Medical Branch multivitami 2020-10 Yes 1{tbl} Take 1 Un todd n tablet 0-15 tablet by ity of 09:33: mouth [place] 33 daily. Medical Branch CALCIUM-MAG 2020-10 Yes Take by Uni vers NESIUM-ZINC 0-15 mouth ity of ORAL 09:33: daily. [place] [address] Medical Branch metFORMIN 2020-10 Yes 1000mg Take 1,000 Univers 1,000 mg 0-15 mg by ity of tablet 09:33: mouth 2 [place] [address] (two) Medical times [place] daily with meals. glimepiride 2020-10 Yes 4mg Take 4 mg U nivers 4 mg tablet 0-15 by mouth 2 it y of 09:33: (two) [place] 33 times Medical daily. Branch UBIDECAR/FI 2020-10 Yes Take by Uni vers SH 0-15 mouth. ity of OIL/OMEGA-3 09:33: [place] /OSMIN (SC 33 Medical [id number] [place] OIL-OMEGA 3-E ORAL) SITagliptin 2020-10 Yes 100mg Take 100 U nivers (JANUVIA) 0-15 mg by ity of 100 mg 09:33: mouth [place] tablet 33 daily. Medical Branch liraglutide 2020-10 Yes 1.8mg inject 1.8 [facility] (VICTOZA 0-15 mg under ity of 3-АЛЕКСАНДР SC) 09:33: [place] daily. Medical Branch tamsulosin 2020-10 Yes Take by [facility] ers 0.4 mg 24 0-15 mouth ity of hr capsule 09:33: daily. [place] [address] Medical Branch multivitami 2020-10 Yes 1{tbl} Take 1 Un todd n tablet 0-15 tablet by ity of 09:33: mouth [place] 33 daily. Medical Branch CALCIUM-MAG 2020-10 Yes Take by Uni vers NESIUM-ZINC 0-15 mouth ity of ORAL 09:33: daily. [place] [address] Medical Branch metFORMIN 2020-10 Yes 1000mg Take 1,000 Univers 1,000 mg 0-15 mg by ity of tablet 09:33: mouth 2 [place] [address] (two) Medical [facility] daily with meals. glimepiride 2020-10 Yes 4mg Take 4 mg U nivers 4 mg tablet 0-15 by mouth 2 it y of 09:33: (two) [place] 33 times Medical daily. Branch UBIDECAR/FI 2020-10 Yes Take by Uni vers SH 0-15 mouth. ity of OIL/OMEGA-3 09:33: [place] /OSMIN (CO 33 Medical [id number] Branch OIL-OMEGA 3-E ORAL) SITagliptin 2020-10 Yes [...] mouth ity of hr capsule 09:33: daily. [place] [address] Medical Branch multivitami 2020-10 Yes 1{tbl} Take 1 Un todd n tablet 0-15 tablet by ity of 09:33: mouth [place] 33 daily. Medical Branch CALCIUM-MAG 2020-10 Yes Take by Uni vers NESIUM-ZINC 0-15 mouth ity of ORAL 09:33: daily. [place] [address] Medical Branch metFORMIN 2020-10 Yes 1000mg Take 1,000 Univers 1,000 mg 0-15 mg by ity of tablet 09:33: mouth 2 [place] [address] (two) Medical times Branch daily with meals. glimepiride 2020-10 Yes 4mg Take 4 mg U nivers 4 mg tablet 0-15 by mouth 2 it y of 09:33: (two) [place] [address] times Medical daily. Branch UBIDECAR/FI 2020-10 Yes Take by [facility] vers SH 0-15 mouth. ity of OIL/OMEGA-3 09:33: [place] /OSMIN (SC 33 [facility] [id number] Branch OIL-OMEGA 3-E ORAL) SITagliptin 2020-10 Yes [...] mouth ity of hr capsule 09:33: daily. [place] [address] Medical Branch multivitami 2020-10 Yes 1{tbl} Take 1 Un todd n tablet 0-15 tablet by ity of 09:33: mouth [place] 33 daily. Medical Branch CALCIUM-MAG 2020-10 Yes Take by Uni vers NESIUM-ZINC 0-15 mouth ity of ORAL 09:33: daily. [address] Branch metFORMIN 2020-10 Yes 1000mg Take 1,000 [facility] 1,000 mg 0-15 mg by ity of tablet 09:33: mouth 2 [place] [address] (two) Medical times [place] daily with meals. glimepiride 2020-10 Yes 4mg Take 4 mg U nivers 4 mg tablet 0-15 by mouth 2 it y of 09:33: (two) [place] [address] times Medical daily. Branch UBIDECAR/FI 2020-10 Yes Take by [facility] vers SH 0-15 mouth. ity of OIL/OMEGA-3 09:33: [place] /OSMIN (SC 33 Medical [id number] Branch OIL-OMEGA 3-E ORAL) SITagliptin 2020-10 Yes 100mg Take 100 U nivers (JANUVIA) 0-15 mg by ity of 100 mg 09:33: mouth [place] tablet 33 daily. Medical Branch liraglutide 2020-10 Yes 1.8mg inject 1.8 [facility] (VICTOZA 0-15 mg under ity of 3-АЛЕКСАНДР [place]) 09:[place]: [place] daily. Medical Branch tamsulosin 2020-10 Yes Take by [facility] ers 0.4 mg 24 0-15 mouth ity of hr capsule 09:33: daily. [address] multivitami 2020-10 Yes 1{tbl} Take 1 Un todd n tablet 0-15 tablet by ity of 09:33: mouth [place] 33 daily. Medical Branch CALCIUM-MAG 2020-10 Yes Take by Uni vers NESIUM-ZINC 0-15 mouth ity of ORAL 09:33: daily. [address] Branch metFORMIN 2020-10 Yes 1000mg Take 1,000 [facility] 1,000 mg 0-15 mg by ity of tablet 09:33: mouth 2 [place] [address] (two) Medical times [place] daily with meals. glimepiride 2020-10 Yes 4mg Take 4 mg U nivers 4 mg tablet 0-15 by mouth 2 it y of 09:33: (two) [place] 33 times Medical daily. Branch UBIDECAR/FI 2020-10 Yes Take by [facility] vers SH 0-15 mouth. ity of OIL/OMEGA-3 09:33: [place] /OSMIN (SC 33 Medical [id number] [place] OIL-OMEGA 3-E ORAL) SITagliptin 2020-10 Yes 100mg [...] mouth ity of hr capsule 09:33: daily. [place] [address] Medical Branch multivitami 2020-10 Yes 1{tbl} Take 1 Un todd n tablet 0-15 tablet by ity of 09:33: mouth [place] 33 daily. Medical Branch CALCIUM-MAG 2020-10 Yes Take by Uni vers NESIUM-ZINC 0-15 mouth ity of ORAL 09:33: daily. [place] [address] Medical Branch metFORMIN 2020-10 Yes 1000mg Take 1,000 [facility] 1,000 mg 0-15 mg by ity of tablet 09:33: mouth 2 [place] [address] (two) Medical times Branch daily with meals. glimepiride 2020-10 Yes 4mg Take 4 mg U nivers 4 mg tablet 0-15 by mouth 2 it y of 09:33: (two) [place] [address] times Medical daily. Branch UBIDECAR/FI 2020-10 Yes Take by [facility] vers SH 0-15 mouth. ity of OIL/OMEGA-3 09:33: [place] /OSMIN (SC 33 Medical [id number] [place] OIL-OMEGA 3-E ORAL) SITagliptin 2020-10 Yes 100mg [...] mouth ity of hr capsule 09:33: daily. [place] [address] Medical Branch multivitami 2020-10 Yes 1{tbl} Take 1 Un todd n tablet 0-15 tablet by ity of 09:33: mouth [place] 33 daily. Medical Branch CALCIUM-MAG 2020-10 Yes Take by Uni vers NESIUM-ZINC 0-15 mouth ity of ORAL 09:33: daily. [place] [address] Medical Branch metFORMIN 2020-10 Yes 1000mg Take 1,000 [facility] 1,000 mg 0-15 mg by ity of tablet 09:33: mouth 2 [place] [address] (two) Medical times Branch daily with meals. glimepiride 2020-10 Yes 4mg Take 4 mg U nivers 4 mg tablet 0-15 by mouth 2 it y of 09:33: (two) [place] [address] times Medical daily. Branch SITagliptin 2020-10 Yes 100mg Take 100 U nivers (JANUVIA) 0-15 mg by ity of 100 mg 09:33: mouth [place] tablet 33 daily. Medical Branch liraglutide 2020-10 Yes 1.8mg inject 1.8 [facility] (VICTOZA 0-15 mg under ity of 3-АЛЕКСАНДР SC) 09:33: [place] 33 daily. Medical Branch multivitami 2020-10 Yes 1{tbl} Take 1 Un todd n tablet 0-15 tablet by ity of 09:33: mouth [place] 33 daily. Medical Branch CALCIUM-MAG 2020-10 Yes Take by Uni vers NESIUM-ZINC 0-15 mouth ity of ORAL 09:33: daily. [place] [address] Medical Branch metFORMIN 2020-10 Yes 1000mg Take 1,000 [facility] 1,000 mg 0-15 mg by ity of tablet 09:33: mouth 2 [place] [address] (two) Medical times Branch daily with meals. glimepiride 2020-10 Yes 4mg Take 4 mg U nivers 4 mg tablet 0-15 by mouth 2 it y of 09:33: (two) [place] [address] times Medical daily. Branch SITagliptin 2020-10 Yes 100mg Take 100 U nivers (JANUVIA) 0-15 mg by ity of 100 mg 09:33: mouth [place] tablet 33 daily. Medical Branch liraglutide 2020-10 Yes 1.8mg inject 1.8 [facility] (VICTOZA 0-15 mg under ity of 3-АЛЕКСАНДР SC) 09:33: [place] 33 daily. Medical Branch multivitami 2020-10 Yes 1{tbl} Take 1 Un todd n tablet 0-15 tablet by ity of 09:33: mouth [place] 33 daily. Medical Branch CALCIUM-MAG 2020-10 Yes Take by Uni vers NESIUM-ZINC 0-15 mouth ity of ORAL 09:33: daily. [place] [address] Medical Branch metFORMIN 2020-10 Yes 1000mg Take 1,000 [facility] 1,000 mg 0-15 mg by ity of tablet 09:33: mouth 2 [place] 33 (two) Medical times Branch daily with meals. glimepiride 2020-10 Yes 4mg Take 4 mg U nivers 4 mg tablet 0-15 by mouth 2 it y of 09:33: (two) [place] 33 times Medical daily. Branch SITagliptin 2020-10 Yes 100mg Take 100 U nivers (JANUVIA) 0-15 mg by ity of 100 mg 09:33: mouth [place] tablet 33 daily. Medical Branch liraglutide 2020-10 Yes 1.8mg inject 1.8 [facility] (VICTOZA 0-15 mg under ity of 3-АЛЕКСАНДР SC) 09:33: the [place] 33 daily. Medical Branch multivitami 2020-10 Yes 1{tbl} Take 1 Un todd n tablet 0-15 tablet by ity of 09:33: mouth [place] 33 daily. Medical Branch CALCIUM-MAG 2020-10 Yes Take by Uni vers NESIUM-ZINC 0-15 mouth ity of ORAL 09:33: daily. [place] [address] Medical Branch metFORMIN 2020-10 Yes 1000mg Take 1,000 [facility] 1,000 mg 0-15 mg by ity of tablet 09:33: mouth 2 [place] 33 (two) Medical times Branch daily with meals. glimepiride 2020-10 Yes 4mg Take 4 mg U nivers 4 mg tablet 0-15 by mouth 2 it y of 09:33: (two) [place] 33 times Medical daily. Branch SITagliptin 2020-10 Yes 100mg Take 100 U nivers (JANUVIA) 0-15 mg by ity of 100 mg 09:33: mouth [place] tablet 33 daily. Medical Branch liraglutide 2020-10 Yes 1.8mg inject 1.8 [facility] (VICTOZA 0-15 mg under ity of 3-АЛЕКСАНДР SC) 09:33: the [place] 33 daily. Medical Branch multivitami 2020-10 Yes 1{tbl} Take 1 Un todd n tablet 0-15 tablet by ity of 09:33: mouth [place] 33 daily. Medical Branch CALCIUM-MAG 2020-10 Yes Take by Uni vers NESIUM-ZINC 0-15 mouth ity of ORAL 09:33: daily. [place] [address] Medical Branch metFORMIN 2020-10 Yes 1000mg Take 1,000 [facility] 1,000 mg 0-15 mg by ity of tablet 09:33: mouth 2 [place] 33 (two) Medical times Branch daily with meals. glimepiride 2020-10 Yes 4mg Take 4 mg U nivers 4 mg tablet 0-15 by mouth 2 it y of 09:33: (two) [place] 33 times Medical daily. Branch SITagliptin 2020-10 Yes 100mg Take 100 U nivers (JANUVIA) 0-15 mg by ity of 100 mg 09:33: mouth [place] tablet 33 daily. Medical Branch liraglutide 2020-10 Yes 1.8mg inject 1.8 [facility] (VICTOZA 0-15 mg under ity of 3-АЛЕКСАНДР SC) 09:33: the [place] 33 daily. Medical Branch multivitami 2020-10 Yes 1{tbl} Take 1 Un todd n tablet 0-15 tablet by ity of 09:33: mouth [place] 33 daily. Medical Branch CALCIUM-MAG 2020-10 Yes Take by Uni vers NESIUM-ZINC 0-15 mouth ity of ORAL 09:33: daily. [place] [address] Medical Branch metFORMIN 2020-10 Yes 1000mg Take 1,000 [facility] 1,000 mg 0-15 mg by ity of tablet 09:33: mouth 2 [place] 33 (two) Medical times Branch daily with meals. glimepiride 2020-10 Yes 4mg Take 4 mg U nivers 4 mg tablet 0-15 by mouth 2 it y of 09:33: (two) [place] 33 times Medical daily. Branch SITagliptin 2020-10 Yes 100mg Take 100 U nivers (JANUVIA) 0-15 mg by ity of 100 mg 09:33: mouth [place] tablet 33 daily. Medical Branch liraglutide 2020-10 Yes 1.8mg inject 1.8 [facility] (VICTOZA 0-15 mg under ity of 3-АЛЕКСАНДР SC) 09:33: the [place] 33 daily. Medical Branch multivitami 2020-10 Yes 1{tbl} Take 1 Un todd n tablet 0-15 tablet by ity of 09:33: mouth [place] 33 daily. Medical Branch CALCIUM-MAG 2020-10 Yes Take by Uni vers NESIUM-ZINC 0-15 mouth ity of ORAL 09:33: daily. [place] [address] Medical Branch metFORMIN 2020-10 Yes 1000mg Take 1,000 [facility] 1,000 mg 0-15 mg by ity of tablet 09:33: mouth 2 [place] 33 (two) Medical times Branch daily with meals. glimepiride 2020-10 Yes 4mg Take 4 mg U nivers 4 mg tablet 0-15 by mouth 2 it y of 09:33: (two) [place] 33 times Medical daily. Branch SITagliptin 2020-10 Yes 100mg Take 100 U nivers (JANUVIA) 0-15 mg by ity of 100 mg 09:33: mouth [place] tablet 33 daily. Medical Branch liraglutide 2020-10 Yes 1.8mg inject 1.8 [facility] (VICTOZA 0-15 mg under ity of 3-АЛЕКСАНДР SC) 09:33: the [place] 33 daily. Medical Branch multivitami 2020-10 Yes 1{tbl} Take 1 Un todd n tablet 0-15 tablet by ity of 09:33: mouth [place] 33 daily. Medical Branch CALCIUM-MAG 2020-10 Yes Take by Uni vers NESIUM-ZINC 0-15 mouth ity of ORAL 09:33: daily. [place] [address] Medical Branch metFORMIN 2020-10 Yes 1000mg Take 1,000 [facility] 1,000 mg 0-15 mg by ity of tablet 09:33: mouth 2 [place] 33 (two) Medical times Branch daily with meals. glimepiride 2020-10 Yes 4mg Take 4 mg U nivers 4 mg tablet 0-15 by mouth 2 it y of 09:33: (two) [place] 33 times Medical daily. Branch SITagliptin 2020-10 Yes 100mg Take 100 U nivers (JANUVIA) 0-15 mg by ity of 100 mg 09:33: mouth [place] tablet 33 daily. Medical Branch liraglutide 2020-10 Yes 1.8mg inject 1.8 [facility] (VICTOZA 0-15 mg under ity of 3-АЛЕКСАНДР SC) 09:33: the [place] 33 daily. Medical Branch multivitami 2020-10 Yes 1{tbl} Take 1 Un todd n tablet 0-15 tablet by ity of 09:33: mouth [place] 33 daily. Medical Branch CALCIUM-MAG 2020-10 Yes Take by Uni vers NESIUM-ZINC 0-15 mouth ity of ORAL 09:33: daily. [place] [address] Medical Branch metFORMIN 2020-10 Yes 1000mg Take 1,000 [facility] 1,000 mg 0-15 mg by ity of tablet 09:33: mouth 2 [place] 33 (two) Medical times Branch daily with meals. glimepiride 2020-10 Yes 4mg Take 4 mg U nivers 4 mg tablet 0-15 by mouth 2 it y of 09:33: (two) [place] 33 times Medical daily. Branch SITagliptin 2020-10 Yes 100mg Take 100 U nivers (JANUVIA) 0-15 mg by ity of 100 mg 09:33: mouth [place] tablet 33 daily. Medical Branch liraglutide 2020-10 Yes 1.8mg inject 1.8 [facility] (VICTOZA 0-15 mg under ity of 3-АЛЕКСАНДР SC) 09:33: the [place] 33 daily. Medical Branch multivitami 2020-10 Yes 1{tbl} Take 1 Un todd n tablet 0-15 tablet by ity of 09:33: mouth [place] 33 daily. Medical Branch CALCIUM-MAG 2020-10 Yes Take by Uni vers NESIUM-ZINC 0-15 mouth ity of ORAL 09:33: daily. [place] [address] Medical Branch metFORMIN 2020-10 Yes 1000mg Take 1,000 [facility] 1,000 mg 0-15 mg by ity of tablet 09:33: mouth 2 [place] 33 (two) Medical times Branch daily with meals. glimepiride 2020-10 Yes 4mg Take 4 mg U nivers 4 mg tablet 0-15 by mouth 2 it y of 09:33: (two) [place] 33 times Medical daily. Branch SITagliptin 2020-10 Yes 100mg Take 100 U nivers (JANUVIA) 0-15 mg by ity of 100 mg 09:33: mouth [place] tablet 33 daily. Medical Branch liraglutide 2020-10 Yes 1.8mg inject 1.8 [facility] (VICTOZA 0-15 mg under ity of 3-АЛЕКСАНДР SC) 09:33: the [place] 33 daily. Medical Branch multivitami 2020-10 Yes 1{tbl} Take 1 Un todd n tablet 0-15 tablet by ity of 09:33: mouth [place] 33 daily. Medical Branch CALCIUM-MAG 2020-10 Yes Take by Uni vers NESIUM-ZINC 0-15 mouth ity of ORAL 09:33: daily. [place] [address] Medical Branch metFORMIN 2020-10 Yes 1000mg Take 1,000 [facility] 1,000 mg 0-15 mg by ity of tablet 09:33: mouth 2 [place] 33 (two) Medical times Branch daily with meals. glimepiride 2020-10 Yes 4mg Take 4 mg U nivers 4 mg tablet 0-15 by mouth 2 it y of 09:33: (two) [place] 33 times Medical daily. Branch SITagliptin 2020-10 Yes 100mg Take 100 U nivers (JANUVIA) 0-15 mg by ity of 100 mg 09:33: mouth [place] tablet 33 daily. Medical Branch liraglutide 2020-10 Yes 1.8mg inject 1.8 [facility] (VICTOZA 0-15 mg under ity of 3-АЛЕКСАНДР SC) 09:33: the [place] 33 daily. Medical Branch multivitami 2020-10 Yes 1{tbl} Take 1 Un todd n tablet 0-15 tablet by ity of 09:33: mouth [place] 33 daily. Medical Branch CALCIUM-MAG 2020-10 Yes Take by Uni vers NESIUM-ZINC 0-15 mouth ity of ORAL 09:33: daily. [place] [address] Medical Branch metFORMIN 2020-10 Yes 1000mg Take 1,000 [facility] 1,000 mg 0-15 mg by ity of tablet 09:33: mouth 2 [place] (two) Medical times Branch daily with meals. glimepiride 2020-10 Yes 4mg Take 4 mg U nivers 4 mg tablet 0-15 by mouth 2 it y of 09:33: (two) [place] 33 times Medical daily. Branch SITagliptin 2020-10 Yes 100mg Take 100 U nivers (JANUVIA) 0-15 mg by ity of 100 mg 09:33: mouth [place] tablet 33 daily. Medical Branch liraglutide 2020-10 Yes 1.8mg inject 1.8 [facility] (VICTOZA 0-15 mg under ity of 3-АЛЕКСАНДР SC) 09:33: the skin [place] 33 daily. Medical Branch multivitami 2020-10 Yes 1{tbl} Take 1 Un todd n tablet 0-15 tablet by ity of 09:33: mouth [place] 33 daily. Medical Branch CALCIUM-MAG 2020-10 Yes Take by Uni vers NESIUM-ZINC 0-15 mouth ity of ORAL 09:33: daily. [place] [address] Medical Branch metFORMIN 2020-10 Yes 1000mg Take 1,000 [facility] 1,000 mg 0-15 mg by ity of tablet 09:33: mouth 2 [place] 33 (two) Medical times Branch daily with meals. glimepiride 2020-10 Yes 4mg Take 4 mg U nivers 4 mg tablet 0-15 by mouth 2 it y of 09:33: (two) [place] 33 times Medical daily. Branch SITagliptin 2020-10 Yes 100mg Take 100 U nivers (JANUVIA) 0-15 mg by ity of 100 mg 09:33: mouth [place] tablet 33 daily. Medical Branch liraglutide 2020-10 Yes 1.8mg inject 1.8 [facility] (VICTOZA 0-15 mg under ity of 3-АЛЕКСАНДР SC) 09:33: the [place] 33 daily. Medical Branch multivitami 2020-10 Yes 1{tbl} Take 1 Un todd n tablet 0-15 tablet by ity of 09:33: mouth [place] 33 daily. Medical Branch CALCIUM-MAG 2020-10 Yes Take by Uni vers NESIUM-ZINC 0-15 mouth ity of ORAL 09:33: daily. [place] [address] Medical Branch metFORMIN 2020-10 Yes 1000mg Take 1,000 [facility] 1,000 mg 0-15 mg by ity of tablet 09:33: mouth 2 [place] (two) Medical times Branch daily with meals. glimepiride 2020-10 Yes 4mg Take 4 mg U nivers 4 mg tablet 0-15 by mouth 2 it y of 09:33: (two) [place] 33 times Medical daily. Branch SITagliptin 2020-10 Yes 100mg Take 100 U nivers (JANUVIA) 0-15 mg by ity of 100 mg 09:33: mouth [place] tablet 33 daily. Medical Branch liraglutide 2020-10 Yes 1.8mg inject 1.8 [facility] (VICTOZA 0-15 mg under ity of 3-АЛЕКСАНДР SC) 09:33: the [place] 33 daily. Medical Branch multivitami 2020-10 Yes 1{tbl} Take 1 Un todd n tablet 0-15 tablet by ity of 09:33: mouth [place] 33 daily. Medical Branch CALCIUM-MAG 2020-10 Yes Take by Uni vers NESIUM-ZINC 0-15 mouth ity of ORAL 09:33: daily. [place] [address] Medical Branch metFORMIN 2020-10 Yes 1000mg Take 1,000 [facility] 1,000 mg 0-15 mg by ity of tablet 09:33: mouth 2 [place] 33 (two) Medical times Branch daily with meals. glimepiride 2020-10 Yes 4mg Take 4 mg U nivers 4 mg tablet 0-15 by mouth 2 it y of 09:33: (two) [place] 33 times Medical daily. Branch SITagliptin 2020-10 Yes 100mg Take 100 U nivers (JANUVIA) 0-15 mg by ity of 100 mg 09:33: mouth [place] tablet 33 daily. Medical Branch liraglutide 2020-10 Yes 1.8mg inject 1.8 [facility] (VICTOZA 0-15 mg under ity of 3-АЛЕКСАНДР SC) 09:33: the [place] 33 daily. Medical Branch multivitami 2020-10 Yes 1{tbl} Take 1 Un todd n tablet 0-15 tablet by ity of 09:33: mouth [place] 33 daily. Medical Branch CALCIUM-MAG 2020-10 Yes Take by Uni vers NESIUM-ZINC 0-15 mouth ity of ORAL 09:33: daily. [place] [address] Medical Branch metFORMIN 2020-10 Yes 1000mg Take 1,000 [facility] 1,000 mg 0-15 mg by ity of tablet 09:33: mouth 2 [place] 33 (two) Medical times Branch daily with meals. glimepiride 2020-10 Yes 4mg Take 4 mg U nivers 4 mg tablet 0-15 by mouth 2 it y of 09:33: (two) [place] times Medical daily. Branch SITagliptin 2020-10 Yes 100mg Take 100 U nivers (JANUVIA) 0-15 mg by ity of 100 mg 09:33: mouth [place] tablet 33 daily. Medical Branch liraglutide 2020-10 Yes 1.8mg inject 1.8 [facility] (VICTOZA 0-15 mg under ity of 3-АЛЕКСАНДР SC) 09:33: the [place] 33 daily. Medical Branch multivitami 2020-10 Yes 1{tbl} Take 1 Un todd n tablet 0-15 tablet by ity of 09:33: mouth [place] 33 daily. Medical Branch CALCIUM-MAG 2020-10 Yes Take by Uni vers NESIUM-ZINC 0-15 mouth ity of ORAL 09:33: daily. [place] [address] Medical Branch metFORMIN 2020-10 Yes 1000mg Take 1,000 [facility] 1,000 mg 0-15 mg by ity of tablet 09:33: mouth 2 [place] 33 (two) Medical times Branch daily with meals. glimepiride 2020-10 Yes 4mg Take 4 mg U nivers 4 mg tablet 0-15 by mouth 2 it y of 09:33: (two) [place] 33 times Medical daily. Branch SITagliptin 2020-10 Yes 100mg Take 100 U nivers (JANUVIA) 0-15 mg by ity of 100 mg 09:33: mouth [place] tablet 33 daily. Medical Branch liraglutide 2020-10 Yes 1.8mg inject 1.8 [facility] (VICTOZA 0-15 mg under ity of 3-АЛЕКСАНДР SC) 09:33: the [place] 33 daily. Medical Branch multivitami 2020-10 Yes 1{tbl} Take 1 Un todd n tablet 0-15 tablet by ity of 09:33: mouth [place] 33 daily. Medical Branch CALCIUM-MAG 2020-10 Yes Take by Uni vers NESIUM-ZINC 0-15 mouth ity of ORAL 09:33: daily. [place] [address] Medical Branch metFORMIN 2020-10 Yes 1000mg Take 1,000 [facility] 1,000 mg 0-15 mg by ity of tablet 09:33: mouth 2 [place] 33 (two) Medical times Branch daily with meals. glimepiride 2020-10 Yes 4mg Take 4 mg U nivers 4 mg tablet 0-15 by mouth 2 it y of 09:33: (two) [place] 33 times Medical daily. Branch SITagliptin 2020-10 Yes 100mg Take 100 U nivers (JANUVIA) 0-15 mg by ity of 100 mg 09:33: mouth [place] tablet 33 daily. Medical Branch liraglutide 2020-10 Yes 1.8mg inject 1.8 [facility] (VICTOZA 0-15 mg under ity of 3-АЛЕКСАНДР SC) 09:33: the [place] 33 daily. Medical Branch multivitami 2020-10 Yes 1{tbl} Take 1 Un todd n tablet 0-15 tablet by ity of 09:33: mouth [place] 33 daily. Medical Branch CALCIUM-MAG 2020-10 Yes Take by Uni vers NESIUM-ZINC 0-15 mouth ity of ORAL 09:33: daily. [place] [address] Medical Branch metFORMIN 2020-10 Yes 1000mg Take 1,000 [facility] 1,000 mg 0-15 mg by ity of tablet 09:33: mouth 2 [place] 33 (two) Medical times Branch daily with meals. glimepiride 2020-10 Yes 4mg Take 4 mg U nivers 4 mg tablet 0-15 by mouth 2 it y of 09:33: (two) [place] 33 times Medical daily. Branch SITagliptin 2020-10 Yes 100mg Take 100 U nivers (JANUVIA) 0-15 mg by ity of 100 mg 09:33: mouth [place] tablet 33 daily. Medical Branch liraglutide 2020-10 Yes 1.8mg inject 1.8 [facility] (VICTOZA 0-15 mg under ity of 3-АЛЕКСАНДР SC) 09:33: the [place] 33 daily. Medical Branch multivitami 2020-10 Yes 1{tbl} Take 1 Un todd n tablet 0-15 tablet by ity of 09:33: mouth [place] 33 daily. Medical Branch CALCIUM-MAG 2020-10 Yes Take by Uni vers NESIUM-ZINC 0-15 mouth ity of ORAL 09:33: daily. [place] [address] Medical Branch metFORMIN 2020-10 Yes 1000mg Take 1,000 [facility] 1,000 mg 0-15 mg by ity of tablet 09:33: mouth 2 [place] 33 (two) Medical times Branch daily with meals. glimepiride 2020-10 Yes 4mg Take 4 mg U nivers 4 mg tablet 0-15 by mouth 2 it y of 09:33: (two) [place] times Medical daily. Branch SITagliptin 2020-10 Yes 100mg Take 100 U nivers (JANUVIA) 0-15 mg by ity of 100 mg 09:33: mouth [place] tablet 33 daily. Medical Branch liraglutide 2020-10 Yes 1.8mg inject 1.8 [facility] (VICTOZA 0-15 mg under ity of 3-АЛЕКСАНДР SC) 09:33: the [place] 33 daily. Medical Branch multivitami 2020-10 Yes 1{tbl} Take 1 Un todd n tablet 0-15 tablet by ity of 09:33: mouth [place] 33 daily. Medical Branch CALCIUM-MAG 2020-10 Yes Take by [facility] vers NESIUM-ZINC 0-15 mouth ity of ORAL 09:33: daily. [place] [address] Medical Branch metFORMIN 2020-10 Yes 1000mg Take 1,000 [facility] 1,000 mg 0-15 mg by ity of tablet 09:33: mouth 2 [place] 33 (two) Medical times Branch daily with meals. glimepiride 2020-10 Yes 4mg Take 4 mg U nivers 4 mg tablet 0-15 by mouth 2 it y of 09:33: (two) [place] 33 times Medical daily. Branch SITagliptin 2020-10 Yes 100mg Take 100 U nivers (JANUVIA) 0-15 mg by ity of 100 mg 09:33: mouth [place] tablet 33 daily. Medical Branch liraglutide 2020-10 Yes 1.8mg inject 1.8 [facility] (VICTOZA 0-15 mg under ity of 3-АЛЕКСАНДР SC) 09:33: the [place] 33 daily. Medical Branch multivitami 2020-10 Yes 1{tbl} Take 1 Un todd n tablet 0-15 tablet by ity of 09:33: mouth [place] 33 daily. Medical Branch CALCIUM-MAG 2020-10 Yes Take by Uni vers NESIUM-ZINC 0-15 mouth ity of ORAL 09:33: daily. [place] [address] Medical Branch metFORMIN 2020-10 Yes 1000mg Take 1,000 [facility] 1,000 mg 0-15 mg by ity of tablet 09:33: mouth 2 [place] 33 (two) Medical times Branch daily with meals. glimepiride 2020-10 Yes 4mg Take 4 mg U nivers 4 mg tablet 0-15 by mouth 2 it y of 09:33: (two) [place] times Medical daily. Branch SITagliptin 2020-10 Yes 100mg Take 100 U nivers (JANUVIA) 0-15 mg by ity of 100 mg 09:33: mouth [place] tablet 33 daily. Medical Branch liraglutide 2020-10 Yes 1.8mg inject 1.8 [facility] (VICTOZA 0-15 mg under ity of 3-АЛЕКСАНДР SC) 09:33: the [place] 33 daily. Medical Branch multivitami 2020-10 Yes 1{tbl} Take 1 Un todd n tablet 0-15 tablet by ity of 09:33: mouth [place] 33 daily. Medical Branch CALCIUM-MAG 2020-10 Yes Take by [facility] vers NESIUM-ZINC 0-15 mouth ity of ORAL 09:33: daily. [place] [address] Medical Branch metFORMIN 2020-10 Yes 1000mg Take 1,000 [facility] 1,000 mg 0-15 mg by ity of tablet 09:33: mouth 2 [place] 33 (two) Medical times Branch daily with meals. glimepiride 2020-10 Yes 4mg Take 4 mg U nivers 4 mg tablet 0-15 by mouth 2 it y of 09:33: (two) [place] 33 times Medical daily. Branch SITagliptin 2020-10 Yes 100mg Take 100 U nivers (JANUVIA) 0-15 mg by ity of 100 mg 09:33: mouth [place] tablet 33 daily. Medical Branch liraglutide 2020-10 Yes 1.8mg inject 1.8 [facility] (VICTOZA 0-15 mg under ity of 3-АЛЕКСАНДР [place]) 09:33: the [place] 33 daily. Medical Branch multivitami 2020-10 Yes 1{tbl} Take 1 Un todd n tablet 0-15 tablet by ity of 09:33: mouth [place] 33 daily. Medical Branch CALCIUM-MAG 2020-10 Yes Take by [facility] vers NESIUM-ZINC 0-15 mouth ity of ORAL 09:33: daily. [place] [address] Medical Branch metFORMIN 2020-10 Yes 1000mg Take 1,000 [facility] 1,000 mg 0-15 mg by ity of tablet 09:33: mouth 2 [place] 33 (two) Medical times Branch daily with meals. glimepiride 2020-10 Yes 4mg Take 4 mg U nivers 4 mg tablet 0-15 by mouth 2 it y of 09:33: (two) [place] times Medical daily. Branch SITagliptin 2020-10 Yes 100mg Take 100 U nivers (JANUVIA) 0-15 mg by ity of 100 mg 09:33: mouth [place] tablet 33 daily. Medical Branch liraglutide 2020-10 Yes 1.8mg inject 1.8 [facility] (VICTOZA 0-15 mg under ity of 3-АЛЕКСАНДР [place]) 09:33: the [place] 33 daily. Medical Branch multivitami 2021-1 Yes 1{tbl} Take 1 Un todd n tablet 0-15 tablet by ity of 09:33: mouth [place] 33 daily. Medical Branch CALCIUM-MAG 2020-10 Yes Take by [facility] vers NESIUM-ZINC 0-15 mouth ity of ORAL 09:33: daily. [place] [address] Medical Branch metFORMIN 2020-10 Yes 1000mg Take 1,000 [facility] 1,000 mg 0-15 mg by ity of tablet 09:33: mouth 2 [place] 33 (two) Medical times Branch daily with meals. glimepiride 2020-10 Yes 4mg Take 4 mg U nivers 4 mg tablet 0-15 by mouth 2 it y of 09:33: (two) [place] 33 times Medical daily. Branch SITagliptin 2020-10 Yes 100mg Take 100 U nivers (JANUVIA) 0-15 mg by ity of 100 mg 09:33: mouth [place] tablet 33 daily. Medical Branch liraglutide 2020-10 Yes 1.8mg inject 1.8 [facility] (VICTOZA 0-15 mg under ity of 3-АЛЕКСАНДР [place]) 09:33: the [place] 33 daily. [facility] Branch multivitami 2020-10 Yes 1{tbl} Take 1 Un todd n tablet 0-15 tablet by ity of 09:33: mouth [place] 33 daily. Medical Branch CALCIUM-MAG 2020-10 Yes Take by [facility] vers NESIUM-ZINC 0-15 mouth ity of ORAL 09:33: daily. [place] [address] Medical Branch metFORMIN 2020-10 Yes 1000mg Take 1,000 [facility] 1,000 mg 0-15 mg by ity of tablet 09:33: mouth 2 [place] 33 (two) Medical times Branch daily with meals. glimepiride 2020-10 Yes 4mg Take 4 mg U nivers 4 mg tablet 0-15 by mouth 2 it y of 09:33: (two) [place] 33 times Medical daily. Branch liraglutide 2020-10 Yes 1.8mg inject 1.8 [facility] (VICTOZA 0-15 mg under ity of [facility] daily. [facility] multivitami 2020-10 Yes 1{tbl} Take 1 Un todd n tablet 0-15 tablet by ity of 09:33: mouth [place] 33 daily. Medical Branch CALCIUM-MAG 2020-10 Yes Take by Uni vers NESIUM-ZINC 0-15 mouth ity of ORAL 09:33: daily. [address] Branch metFORMIN 2020-10 Yes 1000mg Take 1,000 [facility] 1,000 mg 0-15 mg by ity of tablet 09:33: mouth 2 [place] [address] (two) Medical times [place] daily with meals. glimepiride 2020-10 Yes 4mg Take 4 mg U nivers 4 mg tablet 0-15 by mouth 2 it y of 09:33: (two) [place] [address] times Medical daily. Branch liraglutide 2020-10 Yes 1.8mg inject 1.8 [facility] (VICTOZA 0-15 mg under ity of [facility]) 09:[place] daily. [facility] multivitami 2020-10 Yes 1{tbl} Take 1 Un todd n tablet 0-15 tablet by ity of 09:33: mouth [place] 33 daily. Medical Branch CALCIUM-MAG 2020-10 Yes Take by Uni vers NESIUM-ZINC 0-15 mouth ity of ORAL 09:33: daily. [address] metFORMIN 2020-10 Yes 1000mg Take 1,000 [facility] 1,000 mg 0-15 mg by ity of tablet 09:33: mouth 2 [place] [address] (two) Medical times [place] daily with meals. glimepiride 2020-10 Yes 4mg Take 4 mg U nivers 4 mg tablet 0-15 by mouth 2 it y of 09:33: (two) [place] [address] times Medical daily. Branch liraglutide 2020-10 Yes 1.8mg inject 1.8 [facility] (VICTOZA 0-15 mg under ity of [facility]) 09:[place]: [place] daily. [facility] multivitami 2020-10 Yes 1{tbl} Take 1 Un todd n tablet 0-15 tablet by ity of 09:33: mouth [place] 33 daily. Medical Branch CALCIUM-MAG 2020-10 Yes Take by Uni vers NESIUM-ZINC 0-15 mouth ity of ORAL 09:33: daily. [address] metFORMIN 2020-10 Yes 1000mg Take 1,000 [facility] 1,000 mg 0-15 mg by ity of tablet 09:33: mouth 2 [place] [address] (two) Medical times [place] daily with meals. glimepiride 2020-10 Yes 4mg Take 4 mg U nivers 4 mg tablet 0-15 by mouth 2 it y of 09:33: (two) [place] [address] times Medical daily. Branch liraglutide 2020-10 Yes 1.8mg inject 1.8 [facility] (VICTOZA 0-15 mg under ity of [facility]) 09:[place]: [place] daily. [facility] multivitami 2020-10 Yes 1{tbl} Take 1 Un todd n tablet 0-15 tablet by ity of 09:33: mouth [place] 33 daily. Medical Branch CALCIUM-MAG 2020-10 Yes Take by Uni vers NESIUM-ZINC 0-15 mouth ity of ORAL 09:33: daily. [address] Branch metFORMIN 2020-10 Yes 1000mg Take 1,000 [facility] 1,000 mg 0-15 mg by ity of tablet 09:33: mouth 2 [place] [address] (two) Medical [facility] daily with meals. glimepiride 2020-10 Yes 4mg Take 4 mg U nivers 4 mg tablet 0-15 by mouth 2 it y of 09:33: (two) [place] [address] times Medical daily. Branch liraglutide 2020-10 Yes 1.8mg inject 1.8 [facility] (VICTOZA 0-15 mg under ity of [facility]) 09:[place]: [place] daily. [facility] multivitami 2020-10 Yes 1{tbl} Take 1 Un todd n tablet 0-15 tablet by ity of 09:33: mouth [place] 33 daily. Medical Branch CALCIUM-MAG 2020-10 Yes Take by Uni vers NESIUM-ZINC 0-15 mouth ity of ORAL 09:33: daily. [place] [address] Medical Branch metFORMIN 2020-10 Yes 1000mg Take 1,000 [facility] 1,000 mg 0-15 mg by ity of tablet 09:33: mouth 2 [place] [address] (two) Medical [facility] daily with meals. glimepiride 2020-10 Yes 4mg Take 4 mg U nivers 4 mg tablet 0-15 by mouth 2 it y of 09:33: (two) [place] [address] times Medical daily. Branch liraglutide 2020-10 Yes 1.8mg inject 1.8 [facility] (VICTOZA 0-15 mg under ity of [facility]) 09:[place]: [place] 33 daily. [facility] multivitami 2020-10 Yes 1{tbl} Take 1 Un todd n tablet 0-15 tablet by ity of 09:33: mouth [place] 33 daily. Medical Branch CALCIUM-MAG 2020-10 Yes Take by Uni vers NESIUM-ZINC 0-15 mouth ity of ORAL 09:33: daily. [address] Branch metFORMIN 2020-10 Yes 1000mg Take 1,000 [facility] 1,000 mg 0-15 mg by ity of tablet 09:33: mouth 2 [place] [address] (two) Medical times [place] daily with meals. glimepiride 2020-10 Yes 4mg Take 4 mg U nivers 4 mg tablet 0-15 by mouth 2 it y of 09:33: (two) [place] [address] times Medical daily. Branch liraglutide 2020-10 Yes 1.8mg inject 1.8 [facility] (VICTOZA 0-15 mg under ity of [facility]) 09:[place]: [place] daily. [facility] multivitami 2020-10 Yes 1{tbl} Take 1 Un todd n tablet 0-15 tablet by ity of 09:33: mouth [place] 33 daily. Medical Branch CALCIUM-MAG 2020-10 Yes Take by Uni vers NESIUM-ZINC 0-15 mouth ity of ORAL 09:33: daily. [address] Branch metFORMIN 2020-10 Yes 1000mg Take 1,000 [facility] 1,000 mg 0-15 mg by ity of tablet 09:33: mouth 2 [place] [address] (two) Medical times [place] daily with meals. glimepiride 2020-10 Yes 4mg Take 4 mg U nivers 4 mg tablet 0-15 by mouth 2 it y of 09:33: (two) [place] [address] times Medical daily. Branch liraglutide 2020-10 Yes 1.8mg inject 1.8 [facility] (VICTOZA 0-15 mg under ity of [facility]) 09:[place]: [place] daily. [facility] multivitami 2020-10 Yes 1{tbl} Take 1 Un todd n tablet 0-15 tablet by ity of 09:33: mouth [place] 33 daily. Medical Branch CALCIUM-MAG 2020-10 Yes Take by Uni vers NESIUM-ZINC 0-15 mouth ity of ORAL 09:33: daily. [address] metFORMIN 2020-10 Yes 1000mg Take 1,000 [facility] 1,000 mg 0-15 mg by ity of tablet 09:33: mouth 2 [place] [address] (two) Medical times [place] daily with meals. glimepiride 2020-10 Yes 4mg Take 4 mg U nivers 4 mg tablet 0-15 by mouth 2 it y of 09:33: (two) [place] times Medical daily. Branch liraglutide 2020-10 Yes 1.8mg inject 1.8 [facility] (VICTOZA 0-15 mg under ity of [facility]) 09:33: [place] 33 daily. [facility] multivitami 2020-10 Yes 1{tbl} Take 1 Un todd n tablet 0-15 tablet by ity of 09:33: mouth [place] 33 daily. Medical Branch CALCIUM-MAG 2020-10 Yes Take by Uni vers NESIUM-ZINC 0-15 mouth ity of ORAL 09:33: daily. [place] [address] Medical Branch metFORMIN 2020-10 Yes 1000mg Take 1,000 [facility] 1,000 mg 0-15 mg by ity of tablet 09:33: mouth 2 [place] [address] (two) Medical times [place] daily with meals. glimepiride 2020-10 Yes 4mg Take 4 mg U nivers 4 mg tablet 0-15 by mouth 2 it y of 09:33: (two) [place] [address] times Medical daily. Branch liraglutide 2020-10 Yes 1.8mg inject 1.8 [facility] (VICTOZA 0-15 mg under ity of [facility]) 09:[place]: [place] 33 daily. [facility] multivitami 2020-10 Yes 1{tbl} Take 1 Un todd n tablet 0-15 tablet by ity of 09:33: mouth [place] 33 daily. Medical Branch CALCIUM-MAG 2020-10 Yes Take by Uni vers NESIUM-ZINC 0-15 mouth ity of ORAL 09:33: daily. [place] [address] Medical Branch metFORMIN 2020-10 Yes 1000mg Take 1,000 [facility] 1,000 mg 0-15 mg by ity of tablet 09:33: mouth 2 [place] [address] (two) Medical times [place] daily with meals. glimepiride 2020-10 Yes 4mg Take 4 mg U nivers 4 mg tablet 0-15 by mouth 2 it y of 09:33: (two) [place] [address] times Medical daily. Branch liraglutide 2020-10 Yes 1.8mg inject 1.8 [facility] (VICTOZA 0-15 mg under ity of [facility]) 09:[place]: [place] 33 daily. [facility] multivitami 2020-10 Yes 1{tbl} Take 1 Un todd n tablet 0-15 tablet by ity of 09:33: mouth [place] 33 daily. Medical Branch CALCIUM-MAG 2020-10 Yes Take by Uni vers NESIUM-ZINC 0-15 mouth ity of ORAL 09:33: daily. [place] [address] Medical Branch metFORMIN 2020-10 Yes 1000mg Take 1,000 [facility] 1,000 mg 0-15 mg by ity of tablet 09:33: mouth 2 [place] [address] (two) Medical times [place] daily with meals. glimepiride 2020-10 Yes 4mg Take 4 mg U nivers 4 mg tablet 0-15 by mouth 2 it y of 09:33: (two) [place] 33 times Medical daily. Branch liraglutide 2020-10 Yes 1.8mg inject 1.8 [facility] (VICTOZA 0-15 mg under ity of [facility]) 09:33: [place] 33 daily. [facility] multivitami 2020-10 Yes 1{tbl} Take 1 Un todd n tablet 0-15 tablet by ity of 09:33: mouth [place] 33 daily. Medical Branch CALCIUM-MAG 2020-10 Yes Take by Uni vers NESIUM-ZINC 0-15 mouth ity of ORAL 09:33: daily. [place] [address] Medical Branch metFORMIN 2020-10 Yes 1000mg Take 1,000 [facility] 1,000 mg 0-15 mg by ity of tablet 09:33: mouth 2 [place] [address] (two) Medical times [place] daily with meals. glimepiride 2020-10 Yes 4mg Take 4 mg U nivers 4 mg tablet 0-15 by mouth 2 it y of 09:33: (two) [place] 33 times Medical daily. Branch liraglutide 2020-10 Yes 1.8mg inject 1.8 [facility] (VICTOZA 0-15 mg under ity of [facility]) 09:33: [place] 33 daily. [facility] multivitami 2020-10 Yes 1{tbl} Take 1 Un todd n tablet 0-15 tablet by ity of 09:33: mouth [place] 33 daily. Medical Branch CALCIUM-MAG 2020-10 Yes Take by Uni vers NESIUM-ZINC 0-15 mouth ity of ORAL 09:33: daily. [place] [address] Medical Branch metFORMIN 2020-10 Yes 1000mg Take 1,000 [facility] 1,000 mg 0-15 mg by ity of tablet 09:33: mouth 2 [place] (two) Medical times Branch daily with meals. glimepiride 2020-10 Yes 4mg Take 4 mg U nivers 4 mg tablet 0-15 by mouth 2 it y of 09:33: (two) [place] 33 times Medical daily. Branch liraglutide 2020-10 Yes 1.8mg inject 1.8 [facility] (VICTOZA 0-15 mg under ity of [facility]) 09:33: [place] 33 daily. [facility] multivitami 2020-10 Yes 1{tbl} Take 1 Un todd n tablet 0-15 tablet by ity of 09:33: mouth [place] 33 daily. Medical Branch CALCIUM-MAG 2020-10 Yes Take by Uni vers NESIUM-ZINC 0-15 mouth ity of ORAL 09:33: daily. [place] [address] Medical Branch atorvastati Yes [id number] 80mg Take 1 Univers n 80 mg 9-07 tablet by ity of tablet 00:00: mouth at [place] 00 bedtime. Medical Branch lisinopriL Yes [id number] 40mg Take 1 [facility] 40 mg 9-07 tablet by ity of tablet 00:00: mouth [place] 00 daily. Medical Branch atorvastati Yes [id number] 80mg Take 1 [facility] n 80 mg 9-07 tablet by ity of tablet 00:00: mouth at [place] 00 bedtime. Medical Branch lisinopriL Yes [id number] 40mg Take 1 Univers 40 mg 9-07 tablet by ity of tablet 00:00: mouth [place] 00 daily. Medical Branch atorvastati Yes [id number] 80mg Take 1 Univers n 80 mg 9-07 tablet by ity of tablet 00:00: mouth at [place] 00 bedtime. Medical Branch lisinopriL Yes [id number] 40mg Take 1 [facility] 40 mg 9-07 tablet by ity of tablet 00:00: mouth [place] 00 daily. Medical Branch atorvastati Yes [id number] 80mg Take 1 Univers n 80 mg 9-07 tablet by ity of tablet 00:00: mouth at [place] [address] bedtime. Medical Branch lisinopriL 2020-0 Yes [id number] 40mg Take 1 [facility] 40 mg 9-07 tablet by ity of tablet 00:00: mouth [place] 00 daily. Medical Branch atorvastati 2020-0 Yes [id number] 80mg Take 1 Univers n 80 mg 9-07 tablet by ity of tablet 00:00: mouth at [place] [address] bedtime. Medical Branch atorvastati 0 Yes [id number] 80mg Take 1 Univers n 80 mg 9-07 tablet by ity of tablet 00:00: mouth at [place] 00 bedtime. Medical Branch atorvasta 0 Yes [id number] 80mg Take 1 [facility] n 80 mg 9-07 tablet by ity of tablet 00:00: mouth at [place] [address] bedtime. Medical Branch atorvastati 0 Yes [id number] 80mg Take 1 [facility] n 80 mg 9-07 tablet by ity of tablet 00:00: mouth at [place] [address] bedtime. Medical Branch atorvastati 0 Yes [id number] 80mg Take 1 Univers n 80 mg 9-07 tablet by ity of tablet 00:00: mouth at [place] [address] bedtime. Medical Branch atorvastati 0 Yes [id number] 80mg Take 1 Univers n 80 mg 9-07 tablet by ity of tablet 00:00: mouth at [place] [address] bedtime. Medical Branch atorvastati 0 Yes [id number] 80mg Take 1 [facility] n 80 mg 9-07 tablet by ity of tablet 00:00: mouth at [place] [address] bedtime. Medical Branch atorvastati 0 Yes [id number] 80mg Take 1 [facility] n 80 mg 9-07 tablet by ity of tablet 00:00: mouth at [place] [address] bedtime. Medical Branch atorvastati 0 Yes [id number] 80mg Take 1 Univers n 80 mg 9-07 tablet by ity of tablet 00:00: mouth at [place] [address] bedtime. Medical Branch atorvastati 0 Yes [id number] 80mg Take 1 Univers n 80 mg 9-07 tablet by ity of tablet 00:00: mouth at [place] [address] bedtime. Medical Branch atorvastati 0 Yes [id number] 80mg Take 1 [facility] n 80 mg 9-07 tablet by ity of tablet 00:00: mouth at [place] [address] bedtime. Medical Branch atorvastati Yes [id number] 80mg Take 1 [facility] n 80 mg 9-07 tablet by ity of tablet 00:00: mouth at [place] [address] bedtime. Medical Branch atorvastati Yes [id number] 80mg Take 1 [facility] n 80 mg 9-07 tablet by ity of tablet 00:00: mouth at [place] [address] bedtime. Medical Branch atorvastati Yes [id number] 80mg Take 1 Univers n 80 mg 9-07 tablet by ity of tablet 00:00: mouth at [place] [address] bedtime. Medical Branch atorvastati Yes [id number] 80mg Take 1 [facility] n 80 mg 9-07 tablet by ity of tablet 00:00: mouth at [place] [address] bedtime. Medical Branch atorvastati Yes [id number] 80mg Take 1 [facility] n 80 mg 9-07 tablet by ity of tablet 00:00: mouth at [place] [address] bedtime. Medical Branch atorvastati Yes [id number] 80mg Take 1 [facility] n 80 mg 9-07 tablet by ity of tablet 00:00: mouth at [place] [address] bedtime. Medical Branch atorvastati Yes [id number] 80mg Take 1 [facility] n 80 mg 9-07 tablet by ity of tablet 00:00: mouth at [place] [address] bedtime. Medical Branch atorvastati Yes [id number] 80mg Take 1 Univers n 80 mg 9-07 tablet by ity of tablet 00:00: mouth at [place] [address] bedtime. Medical Branch atorvastati Yes [id number] 80mg Take 1 Univers n 80 mg 9-07 tablet by ity of tablet 00:00: mouth at [place] [address] bedtime. Medical Branch Lisinopril Yes 40mg Take 40 mg K elsey 40 MG oral 9-07 by mouth [place] [facility] Tablet 00:00: daily 00 Atorvastati Yes 1{tbl} Take 1 [place] n Calcium 9-07 tablet by [place] [facility] 80 MG oral 00:00: mouth [place] 00 daily Lisinopril Yes 40mg Take 40 mg K elsey 40 MG oral 06-07 by mouth [place] [facility] Tablet 00:00: daily 00 Atorvastati Yes 1{tbl} Take 1 [place] [facility] Calcium 06-07 tablet by [place] [facility] 80 MG oral 00:00: mouth [place] 00 daily atorvastati 2022- No [id number] 80mg Take 1 Univers n 80 mg 06-07 tablet by ity of tablet 00:00: 00:00 mouth at [place] 00 :00 bedtime. Medical Branch atorvastati 2022- No [id number] 80mg Take 1 Univers n 80 mg 06-07 tablet by ity of tablet 00:00: 00:00 mouth at [place] 00 :00 bedtime. Medical Branch atorvastati 2022- No [id number] 80mg Take 1 Univers n 80 mg 06-07 tablet by ity of tablet 00:00: 00:00 mouth at [place] 00 :00 bedtime. Medical Branch atorvastati 2022- No [id number] 80mg Take 1 Univers n 80 mg 06-07 tablet by ity of tablet 00:00: 00:00 mouth at [place] 00 :00 bedtime. Medical Branch atorvastati 2022- No [id number] 80mg Take 1 Univers n 80 mg 06-07 tablet by ity of tablet 00:00: 00:00 mouth at [place] 00 :00 bedtime. Medical Branch atorvastati 2022- No [id number] 80mg Take 1 Univers n 80 mg 06-07 tablet by ity of tablet 00:00: 00:00 mouth at [place] 00 :00 bedtime. Medical Branch lisinopriL 2021- No [id number] 40mg Take 1 [facility] 40 mg 06-07 tablet by ity of tablet 00:00: 00:00 mouth [place] 00 :00 daily. Medical Branch lisinopriL 2021- No [id number] 40mg Take 1 [facility] 40 mg 06-07 tablet by ity of tablet 00:00: 00:00 mouth [place] 00 :00 daily. Medical Branch icosapent 2021- No [id number] 2g Take 2 Univers ethyL 8-30 01-25 capsules ity of (VASCEPA) 1 00:00: 00:00 by mouth 2 [place] gram 00 :00 (two) Medical capsule times Branch daily. spironolact 2021- No [id number] 25mg Take 1 Univers one 25 mg 7-20 -25 tablet by ity of tablet 00:00: 00:00 mouth [place] 00 :00 daily. Medical Branch furosemide 2021- No 20mg Take 1 Univ ers 20 mg -10-28 tablet by ity of tablet 00:00: 00:00 mouth [place] 00 :00 daily. Medical Branch furosemide 2021- No 20mg Take 1 Univ ers 20 mg -10-28 tablet by ity of tablet 00:00: 00:00 mouth [place] 00 :00 daily. Medical Branch ezetimibe 2020- No 10mg Take 1 Unive rs 10 mg 04-18 tablet by ity of tablet 00:00: 00:00 mouth [place] 00 :00 daily. Medical Branch One Touch One Touch No BID One Touch test strips test strips 6-23 test test strips test strips 00:00: strips 00 test strips One Touch One Touch No One Touch Glucose Glucose 6-23 Glucose Monitor N/S Monitor N/S 00:00: Monitor 00 N/S One Touch One Touch No BID One [...] 00 :00 one touch one touch 2020-0 2022- No BID one touch lancets 33G lancets 33G 6-23 03-20 lancets 00:00: 00:00 33G 00 :00 one touch one touch 2020-0 2022- No BID one touch lancets 33G lancets 33G 6-23 03-20 lancets 00:00: 00:00 33G 00 :00 one touch one touch 2020-0 2022- No BID one touch lancets 33G lancets 33G 6-23 03-20 lancets 00:00: 00:00 33G 00 :00 one touch one touch 2020-0 2022- No BID one touch lancets 33G lancets 33G 6-23 03-20 lancets 00:00: 00:00 33G 00 :00 one touch one touch 2020-0 2022- No BID one touch lancets 33G lancets 33G 6-23 03-20 lancets 00:00: 00:00 33G 00 :00 one touch one touch 2020-0 2022- No BID one touch lancets 33G lancets 33G 6-23 03-20 lancets 00:00: 00:00 33G 00 :00 one touch one touch 2020-0 2022- No BID one touch lancets 33G lancets 33G 6-23 03-20 lancets 00:00: 00:00 33G 00 :00 one touch one touch 2020-0 2022- No BID one touch lancets 33G lancets 33G 6-23 03-20 lancets 00:00: 00:00 33G 00 :00 isosorbide 2020-0 Yes [id number] 30mg Take 1 U nivers mononitrate 4-14 tablet by ity of 30 mg 24 hr 00:00: mouth [place] tablet 00 daily. Medical Branch carvediloL 2020-0 Yes [id number] 3.125mg Take 1 Univers 3.125 mg 4-14 tablet by ity of tablet 00:00: mouth 2 [place] 00 (two) Medical times Branch daily with meals. isosorbide 2020-0 Yes [id number] 30mg Take 1 U nivers mononitrate 4-14 tablet by ity of 30 mg 24 hr 00:00: mouth [place] tablet 00 daily. Medical Branch carvediloL 2020-0 Yes [id number] 3.125mg Take 1 Univers 3.125 mg 4-14 tablet by ity of tablet 00:00: mouth 2 [place] 00 (two) Medical times Branch daily with meals. isosorbide 2020-0 Yes [id number] 30mg Take 1 U nivers mononitrate 4-14 tablet by ity of 30 mg 24 hr 00:00: mouth [place] tablet 00 daily. Medical Branch carvediloL 2020-0 Yes [id number] 3.125mg Take 1 Univers 3.125 mg 4-14 tablet by ity of tablet 00:00: mouth 2 [place] 00 (two) Medical times Branch daily with meals. isosorbide 2020-0 Yes [id number] 30mg Take 1 U nivers mononitrate 4-14 tablet by ity of 30 mg 24 hr 00:00: mouth [place] tablet 00 daily. Medical Branch carvediloL 0 Yes [id number] 3.125mg Take 1 Univers 3.125 mg 4-14 tablet by ity of tablet 00:00: mouth 2 [place] (two) Medical times Branch daily with meals. isosorbide 2020-0 Yes [id number] 30mg Take 1 U nivers mononitrate 4-14 tablet by ity of 30 mg 24 hr 00:00: mouth [place] tablet 00 daily. Medical Branch isosorbide 0 Yes [id number] 30mg Take 1 U nivers mononitrate 4-14 tablet by ity of 30 mg 24 hr 00:00: mouth [place] tablet 00 daily. Medical Branch isosorbide 2020-0 Yes [id number] 30mg Take 1 U nivers mononitrate 4-14 tablet by ity of 30 mg 24 hr 00:00: mouth [place] tablet 00 daily. Medical Branch isosorbide 2020-0 Yes [id number] 30mg Take 1 U nivers mononitrate 4-14 tablet by ity of 30 mg 24 hr 00:00: mouth [place] tablet 00 daily. Medical Branch isosorbide 2020-0 Yes [id number] 30mg Take 1 U nivers mononitrate 4-14 tablet by ity of 30 mg 24 hr 00:00: mouth [place] tablet 00 daily. Medical Branch isosorbide 2020-0 Yes [id number] 30mg Take 1 U nivers mononitrate 4-14 tablet by ity of 30 mg 24 hr 00:00: mouth [place] tablet 00 daily. Medical Branch isosorbide 2020-0 Yes [id number] 30mg Take 1 U nivers mononitrate 4-14 tablet by ity of 30 mg 24 hr 00:00: mouth [place] tablet 00 daily. Medical Branch isosorbide 2020-0 Yes [id number] 30mg Take 1 U nivers mononitrate 4-14 tablet by ity of 30 mg 24 hr 00:00: mouth [place] tablet 00 daily. Medical Branch isosorbide 2020-0 Yes [id number] 30mg Take 1 U nivers mononitrate 4-14 tablet by ity of 30 mg 24 hr 00:00: mouth [place] tablet 00 daily. Medical Branch isosorbide 2020-0 Yes [id number] 30mg Take 1 U nivers mononitrate 4-14 tablet by ity of 30 mg 24 hr 00:00: mouth [place] tablet 00 daily. Medical Branch isosorbide 2020-0 Yes [id number] 30mg Take 1 U nivers mononitrate 4-14 tablet by ity of 30 mg 24 hr 00:00: mouth [place] tablet 00 daily. Medical Branch isosorbide 2020-0 Yes [id number] 30mg Take 1 U nivers mononitrate 4-14 tablet by ity of 30 mg 24 hr 00:00: mouth [place] tablet 00 daily. Medical Branch isosorbide 2020-0 Yes [id number] 30mg Take 1 U nivers mononitrate 4-14 tablet by ity of 30 mg 24 hr 00:00: mouth [place] tablet 00 daily. Medical Branch isosorbide 2020-0 Yes [id number] 30mg Take 1 U nivers mononitrate 4-14 tablet by ity of 30 mg 24 hr 00:00: mouth [place] tablet 00 daily. Medical Branch isosorbide 2020-0 Yes [id number] 30mg Take 1 U nivers mononitrate 4-14 tablet by ity of 30 mg 24 hr 00:00: mouth [place] tablet 00 daily. Medical Branch isosorbide 2020-0 Yes [id number] 30mg Take 1 U nivers mononitrate 4-14 tablet by ity of 30 mg 24 hr 00:00: mouth [place] tablet 00 daily. Medical Branch isosorbide 2021-0 Yes [id number] 30mg Take 1 U nivers mononitrate 4-14 tablet by ity of 30 mg 24 hr 00:00: mouth [place] tablet 00 daily. Medical Branch isosorbide 0 Yes [id number] 30mg Take 1 U nivers mononitrate 4-14 tablet by ity of 30 mg 24 hr 00:00: mouth [place] tablet 00 daily. [facility] Branch isosorbide 0 Yes [id number] 30mg Take 1 U nivers mononitrate 4-14 tablet by ity of 30 mg 24 hr 00:00: mouth [place] tablet 00 daily. [facility] Branch isosorbide 0 Yes [id number] 30mg Take 1 U nivers mononitrate 4-14 tablet by ity of 30 mg 24 hr 00:00: mouth [place] tablet 00 daily. [facility] isosorbide 2022- No [id number] 30mg Take 1 [facility] mononitrate 4-14 -02 tablet by it y of 30 mg 24 hr 00:00: 00:00 [place] tablet 00 :00 daily. [facility] isosorbide 2022- No [id number] 30mg Take 1 [facility] mononitrate 4-14 - tablet by it y of 30 mg 24 hr 00:00: 00:00 mouth [place] tablet 00 :00 daily. [facility] isosorbide 2022- No [id number] 30mg Take 1 [facility] mononitrate 4-14 -02 tablet by it y of 30 mg 24 hr 00:00: 00:00 [place] tablet 00 :00 daily. [facility] isosorbide 3- No [id number] 30mg Take 1 [facility] mononitrate 4-14 -02 tablet by it y of 30 mg 24 hr 00:00: 00:00 [place] tablet 00 :00 daily. [facility] Branch isosorbide 3- No [id number] 30mg Take 1 [facility] mononitrate 4-14 -02 tablet by it y of 30 mg 24 hr 00:00: 00:00 mouth [place] tablet 00 :00 daily. [facility] isosorbide 2022- No [id number] 30mg Take 1 [facility] mononitrate 4-14 -02 tablet by it y of 30 mg 24 hr 00:00: 00:00 mouth [place] tablet 00 :00 daily. [facility] Branch carvediloL 2021- No [id number] 3.125mg Take 1 [facility] 3.125 mg 4-14 06-20 tablet by ity o f tablet 00:00: 00:00 mouth 2 [place] 00 :00 (two) Medical times Branch daily with meals. carvediloL 2021- No [id number] 3.125mg Take 1 [facility] 3.125 mg 4-14 06-20 tablet by ity o f tablet 00:00: 00:00 mouth 2 [place] 00 :00 (two) Medical times Branch daily with meals. Tresiba Tresiba 2020-0 Yes Benjamín Inject 10 Common FlexTouch FlexTouch 9-11 Gabriel units Spi rit 00:00: - [facility] 00 [facility] clopidogreL 2020-0 Yes [id number] 75mg Take 1 [facility] 75 mg 8-06 tablet by ity of tablet 00:00: mouth [place] 00 daily. Medical Branch clopidogreL 2020-0 Yes [id number] 75mg Take 1 [facility] 75 mg 8-06 tablet by ity of tablet 00:00: mouth [place] 00 daily. Medical Branch clopidogreL 2020-0 Yes [id number] 75mg Take 1 [facility] 75 mg 8-06 tablet by ity of tablet 00:00: mouth [place] 00 daily. Medical Branch clopidogreL 2020-0 Yes [id number] 75mg Take 1 [facility] 75 mg 8-06 tablet by ity of tablet 00:00: mouth [place] 00 daily. Medical Branch clopidogreL 2020-0 Yes [id number] 75mg Take 1 [facility] 75 mg 8-06 tablet by ity of tablet 00:00: mouth [place] 00 daily. Medical Branch clopidogreL 2020-0 Yes [id number] 75mg Take 1 [facility] 75 mg 8-06 tablet by ity of tablet 00:00: mouth [place] 00 daily. Medical Branch clopidogreL 2020-0 Yes [id number] 75mg Take 1 [facility] 75 mg 8-06 tablet by ity of tablet 00:00: mouth [place] 00 daily. Medical Branch clopidogreL 2020-0 Yes [id number] 75mg Take 1 [facility] 75 mg 8-06 tablet by ity of tablet 00:00: mouth [place] 00 daily. Medical Branch clopidogreL 2020-0 Yes [id number] 75mg Take 1 [facility] 75 mg 8-06 tablet by ity of tablet 00:00: mouth [place] 00 daily. [facility] Branch clopidogreL 2020-0 Yes [id number] 75mg Take 1 [facility] 75 mg 8-06 tablet by ity of tablet 00:00: mouth [place] 00 daily. [facility] Branch clopidogreL 2020-0 Yes [id number] 75mg Take 1 [facility] 75 mg 8-06 tablet by ity of tablet 00:00: mouth [place] 00 daily. [facility] Branch clopidogreL 2020-0 Yes [id number] 75mg Take 1 [facility] 75 mg 8-06 tablet by ity of tablet 00:00: mouth [place] 00 daily. [facility] clopidogreL 2020-0 Yes [id number] 75mg Take 1 [facility] 75 mg 8-06 tablet by [facility] of tablet 00:00: mouth [place] 00 daily. [facility] clopidogreL 2020-0 Yes [id number] 75mg Take 1 [facility] 75 mg 8-06 tablet by [facility] of tablet 00:00: mouth [place] 00 daily. [facility] clopidogreL 2020-0 Yes [id number] 75mg Take 1 [facility] 75 mg 8-06 tablet by [facility] of tablet 00:00: mouth [place] 00 daily. [facility] clopidogreL 2020-0 Yes [id number] 75mg Take 1 [facility] 75 mg 8-06 tablet by [facility] of tablet 00:00: mouth [place] 00 daily. [facility] clopidogreL 2020-0 Yes [id number] 75mg Take 1 [facility] 75 mg 8-06 tablet by [facility] of tablet 00:00: mouth [place] 00 daily. [facility] clopidogreL 2020-0 Yes [id number] 75mg Take 1 [facility] 75 mg 8-06 tablet by [facility] of tablet 00:00: mouth [place] 00 daily. [facility] clopidogreL 2020-0 Yes [id number] 75mg Take 1 [facility] 75 mg 8-06 tablet by [facility] of tablet 00:00: mouth [place] 00 daily. [facility] clopidogreL 2020-0 Yes [id number] 75mg Take 1 [facility] 75 mg 8-06 tablet by [facility] of tablet 00:00: mouth [place] 00 daily. [facility] clopidogreL 2020-0 Yes [id number] 75mg Take 1 [facility] 75 mg 8-06 tablet by [facility] of tablet 00:00: mouth [place] 00 daily. [facility] clopidogreL 2020-0 Yes [id number] 75mg Take 1 [facility] 75 mg 8-06 tablet by [facility] of tablet 00:00: mouth [place] 00 daily. [facility] clopidogreL 2020-0 Yes [id number] 75mg Take 1 [facility] 75 mg 8-06 tablet by [facility] of tablet 00:00: mouth [place] 00 daily. [facility] clopidogreL 2020-0 Yes [id number] 75mg Take 1 [facility] 75 mg 8-06 tablet by [facility] of tablet 00:00: mouth [place] 00 daily. [facility] clopidogreL 2020-0 3- No [id number] 75mg Take 1 [facility] 75 mg 8-06 02-02 tablet by [facility] of tablet 00:00: 00:00 mouth [place] 00 :00 daily. [facility] clopidogreL 2020-0 3- No [id number] 75mg Take 1 [facility] 75 mg 8-06 02-02 tablet by [facility] of tablet 00:00: 00:00 mouth [place] 00 :00 daily. [facility] clopidogreL 2020-0 3- No [id number] 75mg Take 1 [facility] 75 mg 8-06 02-02 tablet by [facility] of tablet 00:00: 00:00 mouth [place] 00 :00 daily. [facility] clopidogreL 2020-0 3- No [id number] 75mg Take 1 [facility] 75 mg 8-06 02-02 tablet by [facility] of tablet 00:00: 00:00 mouth [place] 00 :00 daily. [facility] clopidogreL 2020-0 3- No [id number] 75mg Take 1 [facility] 75 mg 8-06 02-02 tablet by [facility] of tablet 00:00: 00:00 mouth [place] 00 :00 daily. [facility] clopidogreL 2020-0 3- No [id number] 75mg Take 1 [facility] 75 mg 8-06 02-02 tablet by [facility] of tablet 00:00: 00:00 mouth [place] 00 :00 daily. [facility] fenofibrate 2018-10 Yes [id number] 145mg Take 1 [facility] 145 mg 2-12 tablet by [facility] of tablet 00:00: mouth [place] 00 daily. [facility] fenofibrate 2018-10 Yes [id number] 145mg Take 1 [facility] 145 mg 2-12 tablet by [facility] of tablet 00:00: mouth [place] 00 daily. [facility] fenofibrate 2018-10 Yes [id number] 145mg Take 1 [facility] 145 mg 2-12 tablet by [facility] of tablet 00:00: mouth [place] 00 daily. [facility] fenofibrate 2018-10 Yes [id number] 145mg Take 1 [facility] 145 mg 2-12 tablet by [facility] of tablet 00:00: mouth [place] 00 daily. [facility] fenofibrate 2018-10 Yes [id number] 145mg Take 1 [facility] 145 mg 2-12 tablet by [facility] of tablet 00:00: mouth [place] 00 daily. [facility] fenofibrate 2018-10 Yes [id number] 145mg Take 1 [facility] 145 mg 2-12 tablet by [facility] of tablet 00:00: mouth [place] 00 daily. [facility] fenofibrate 2018-10 Yes [id number] 145mg Take 1 [facility] 145 mg 2-12 tablet by [facility] of tablet 00:00: mouth [place] 00 daily. [facility] fenofibrate 2018-10 Yes [id number] 145mg Take 1 [facility] 145 mg 2-12 tablet by [facility] of tablet 00:00: mouth [place] 00 daily. [facility] fenofibrate 2018-10 Yes [id number] 145mg Take 1 [facility] 145 mg 2-12 tablet by [facility] of tablet 00:00: mouth [place] 00 daily. [facility] fenofibrate 2018-10 Yes [id number] 145mg Take 1 [facility] 145 mg 2-12 tablet by [facility] of tablet 00:00: mouth [place] 00 daily. [facility] fenofibrate 2018-10 Yes [id number] 145mg Take 1 [facility] 145 mg 2-12 tablet by [facility] of tablet 00:00: mouth [place] 00 daily. [facility] fenofibrate 2018-10 Yes [id number] 145mg Take 1 [facility] 145 mg 2-12 tablet by [facility] of tablet 00:00: mouth [place] 00 daily. [facility] fenofibrate 2018-10 Yes [id number] 145mg Take 1 [facility] 145 mg 2-12 tablet by [facility] of tablet 00:00: mouth [place] 00 daily. [facility] fenofibrate 2018-10 Yes [id number] 145mg Take 1 [facility] 145 mg 2-12 tablet by [facility] of tablet 00:00: mouth [place] 00 daily. [facility] fenofibrate 2018-10 Yes [id number] 145mg Take 1 [facility] 145 mg 2-12 tablet by [facility] of tablet 00:00: mouth [place] 00 daily. [facility] fenofibrate 2018-10 Yes [id number] 145mg Take 1 [facility] 145 mg 2-12 tablet by [facility] of tablet 00:00: mouth [place] 00 daily. [facility] fenofibrate 2018-10 Yes [id number] 145mg Take 1 [facility] 145 mg 2-12 tablet by [facility] of tablet 00:00: mouth [place] 00 daily. [facility] fenofibrate 2018-10 Yes [id number] 145mg Take 1 [facility] 145 mg 2-12 tablet by [facility] of tablet 00:00: mouth [place] 00 daily. [facility] fenofibrate 2018-10 Yes [id number] 145mg Take 1 [facility] 145 mg 2-12 tablet by [facility] of tablet 00:00: mouth [place] 00 daily. [facility] fenofibrate 2018-10 Yes [id number] 145mg Take 1 [facility] 145 mg 2-12 tablet by [facility] of tablet 00:00: mouth [place] 00 daily. [facility] fenofibrate 2018-10 Yes [id number] 145mg Take 1 [facility] 145 mg 2-12 tablet by [facility] of tablet 00:00: mouth [place] 00 daily. [facility] fenofibrate 2018-10 Yes [id number] 145mg Take 1 [facility] 145 mg 2-12 tablet by [facility] of tablet 00:00: mouth [place] 00 daily. [facility] fenofibrate 2018-10 Yes [id number] 145mg Take 1 [facility] 145 mg 2-12 tablet by [facility] of tablet 00:00: mouth [place] 00 daily. [facility] fenofibrate 2018-10 Yes [id number] 145mg Take 1 [facility] 145 mg 2-12 tablet by [facility] of tablet 00:00: mouth [place] 00 daily. [facility] fenofibrate 2018-10- No [id number] 145mg Take 1 [facility] 145 mg 2-12 02-02 tablet by [facility] of tablet 00:00: 00:00 mouth [place] 00 :00 daily. [facility] fenofibrate 2018-10- No [id number] 145mg Take 1 [facility] 145 mg 2-12 02-02 tablet by [facility] of tablet 00:00: 00:00 mouth [place] 00 :00 daily. [facility] fenofibrate 2018-10- No [id number] 145mg Take 1 [facility] 145 mg 2-12 02-02 tablet by [facility] of tablet 00:00: 00:00 mouth [place] 00 :00 daily. [facility] fenofibrate 2018-10- No [id number] 145mg Take 1 [facility] 145 mg 2-12 02-02 tablet by [facility] of tablet 00:00: 00:00 mouth [place] 00 :00 daily. [facility] fenofibrate 2018-10- No [id number] 145mg Take 1 [facility] 145 mg 2-12 02-02 tablet by [facility] of tablet 00:00: 00:00 mouth [place] 00 :00 daily. [facility] fenofibrate 2018-10- No [id number] 145mg Take 1 [facility] 145 mg -12 11-02 tablet by [facility] of tablet 00:00: 00:00 mouth [place] 00 :00 daily. [facility] aspirin 81 2019- Yes [id number] 81mg Take 1 U nivers mg EC 1-19 tablet by [facility] of tablet 00:00: mouth [place] 00 daily. [facility] aspirin 81 2019- Yes [id number] 81mg Take 1 U nivers mg EC 1-19 tablet by [facility] of tablet 00:00: mouth [place] 00 daily. [facility] aspirin 81 2019- Yes [id number] 81mg Take 1 U nivers mg EC 1-19 tablet by [facility] of tablet 00:00: mouth [place] 00 daily. [facility] aspirin 81 2019- Yes [id number] 81mg Take 1 U nivers mg EC 1-19 tablet by [facility] of tablet 00:00: mouth [place] 00 daily. [facility] aspirin 81 2019- Yes [id number] 81mg Take 1 U nivers mg EC 1-19 tablet by [facility] of tablet 00:00: mouth [place] 00 daily. [facility] aspirin 81 2019- Yes [id number] 81mg Take 1 U nivers mg EC 1-19 tablet by [facility] of tablet 00:00: mouth [place] 00 daily. [facility] aspirin 81 2019- Yes [id number] 81mg Take 1 U nivers mg EC 1-19 tablet by [facility]y of tablet 00:00: mouth [place] 00 daily. [facility] aspirin 81 2019- Yes [id number] 81mg Take 1 U nivers mg EC 1-19 tablet by [facility]y of tablet 00:00: mouth [place] 00 daily. [facility] aspirin 81 2019- Yes [id number] 81mg Take 1 U nivers mg EC 1-19 tablet by ity of tablet 00:00: mouth [place] 00 daily. [facility] aspirin 81 2019- Yes [id number] 81mg Take 1 U nivers mg EC 1-19 tablet by [facility] of tablet 00:00: mouth [place] 00 daily. [facility] aspirin 81 2019- Yes [id number] 81mg Take 1 U nivers mg EC 1-19 tablet by [facility]y of tablet 00:00: mouth [place] 00 daily. [facility] aspirin 81 2019- Yes [id number] 81mg Take 1 U nivers mg EC 1-19 tablet by ity of tablet 00:00: mouth [place] 00 daily. [facility] aspirin 81 2019- Yes [id number] 81mg Take 1 U nivers mg EC 1-19 tablet by [facility]y of tablet 00:00: mouth [place] 00 daily. [facility] aspirin 81 2019- Yes [id number] 81mg Take 1 U nivers mg EC 1-19 tablet by [facility]y of tablet 00:00: mouth [place] 00 daily. [facility] aspirin 81 2019- Yes [id number] 81mg Take 1 U nivers mg EC 1-19 tablet by [facility]y of tablet 00:00: mouth [place] 00 daily. [facility] aspirin 81 2019- Yes [id number] 81mg Take 1 U nivers mg EC 1-19 tablet by [facility]y of tablet 00:00: mouth [place] 00 daily. [facility] aspirin 81 2019- Yes [id number] 81mg Take 1 U nivers mg EC 1-19 tablet by [facility] of tablet 00:00: mouth [place] 00 daily. [facility] aspirin 81 2019- Yes [id number] 81mg Take 1 U nivers mg EC 1-19 tablet by [facility]y of tablet 00:00: mouth [place] 00 daily. [facility] aspirin 81 2019- Yes [id number] 81mg Take 1 U nivers mg EC 1-19 tablet by [facility]y of tablet 00:00: mouth [place] 00 daily. [facility] aspirin 81 2019- Yes [id number] 81mg Take 1 U nivers mg EC 1-19 tablet by [facility]y of tablet 00:00: mouth [place] 00 daily. [facility] aspirin 81 2019- Yes [id number] 81mg Take 1 U nivers mg EC 1-19 tablet by [facility]y of tablet 00:00: mouth [place] 00 daily. [facility] aspirin 81 2019-1 Yes [id number] 81mg Take 1 U nivers mg EC 1-19 tablet by [facility]y of tablet 00:00: mouth [place] 00 daily. [facility] aspirin 81 2019-1 Yes [id number] 81mg Take 1 U nivers mg EC 1-19 tablet by ity of tablet 00:00: mouth [place] 00 daily. [facility] aspirin 81 2019- Yes [id number] 81mg Take 1 U nivers mg EC 1-19 tablet by [facility]y of tablet 00:00: mouth [place] 00 daily. [facility] aspirin 81 2019- Yes [id number] 81mg Take 1 U nivers mg EC 1-19 tablet by ity of tablet 00:00: mouth [place] 00 daily. [facility] aspirin 81 2019- Yes [id number] 81mg Take 1 U nivers mg EC 1-19 tablet by [facility]y of tablet 00:00: mouth [place] 00 daily. [facility] aspirin 81 2019- Yes [id number] 81mg Take 1 U nivers mg EC 1-19 tablet by [facility]y of tablet 00:00: mouth [place] 00 daily. [facility] aspirin 81 2019- Yes [id number] 81mg Take 1 U nivers mg EC 1-19 tablet by ity of tablet 00:00: mouth [place] 00 daily. [facility] aspirin 81 2019- Yes [id number] 81mg Take 1 U nivers mg EC 1-19 tablet by ity of tablet 00:00: mouth [place] 00 daily. [facility] aspirin 81 2019- Yes [id number] 81mg Take 1 U nivers mg EC 1-19 tablet by ity of tablet 00:00: mouth [place] 00 daily. [facility] aspirin 81 2019- Yes [id number] 81mg Take 1 U nivers mg EC 1-19 tablet by ity of tablet 00:00: mouth [place] 00 daily. [facility] aspirin 81 2019- Yes [id number] 81mg Take 1 U nivers mg EC 1-19 tablet by ity of tablet 00:00: mouth [place] 00 daily. [facility] aspirin 81 2019- Yes [id number] 81mg Take 1 U nivers mg EC 1-19 tablet by [facility]y of tablet 00:00: mouth [place] 00 daily. [facility] aspirin 81 2019- Yes [id number] 81mg Take 1 U nivers mg EC 1-19 tablet by [facility]y of tablet 00:00: mouth [place] 00 daily. [facility] aspirin 81 2019-1 Yes [id number] 81mg Take 1 U nivers mg EC 1-19 tablet by [facility]y of tablet 00:00: mouth [place] 00 daily. [facility] aspirin 81 2019-1 Yes [id number] 81mg Take 1 U nivers mg EC 1-19 tablet by [facility]y of tablet 00:00: mouth [place] 00 daily. [facility] aspirin 81 2019- Yes [id number] 81mg Take 1 U nivers mg EC 1-19 tablet by [facility]y of tablet 00:00: mouth [place] 00 daily. [facility] aspirin 81 2019-1 Yes [id number] 81mg Take 1 U nivers mg EC 1-19 tablet by [facility]y of tablet 00:00: mouth [place] 00 daily. [facility] aspirin 81 2019- Yes [id number] 81mg Take 1 U nivers mg EC 1-19 tablet by ity of tablet 00:00: mouth [place] 00 daily. [facility] aspirin 81 2019- Yes [id number] 81mg Take 1 U nivers mg EC 1-19 tablet by [facility]y of tablet 00:00: mouth [place] 00 daily. [facility] aspirin 81 2019- Yes [id number] 81mg Take 1 U nivers mg EC 1-19 tablet by [facility]y of tablet 00:00: mouth [place] 00 daily. [facility] aspirin 81 2019- Yes [id number] 81mg Take 1 U nivers mg EC 1-19 tablet by ity of tablet 00:00: mouth [place] 00 daily. [facility] aspirin 81 2019- Yes [id number] 81mg Take 1 U nivers mg EC 1-19 tablet by ity of tablet 00:00: mouth [place] 00 daily. [facility] aspirin 81 2019- Yes [id number] 81mg Take 1 U nivers mg EC 1-19 tablet by [facility]y of tablet 00:00: mouth [place] 00 daily. [facility] aspirin 81 2019- Yes [id number] 81mg Take 1 U nivers mg EC 1-19 tablet by ity of tablet 00:00: mouth [place] 00 daily. [facility] aspirin 81 2019- Yes [id number] 81mg Take 1 U nivers mg EC 1-19 tablet by [facility]y of tablet 00:00: mouth [place] 00 daily. [facility] aspirin 81 2019- Yes [id number] 81mg Take 1 U nivers mg EC 1-19 tablet by [facility]y of tablet 00:00: mouth [place] 00 daily. [facility] aspirin 81 2019- Yes [id number] 81mg Take 1 [facility] nivers mg EC 1-19 tablet by [facility]y of tablet 00:00: mouth [place] 00 daily. [facility] aspirin 81 2019- Yes [id number] 81mg Take 1 U nivers mg EC 1-19 tablet by [facility]y of tablet 00:00: mouth [place] 00 daily. [facility] aspirin 81 2019- Yes [id number] 81mg Take 1 U nivers mg EC 1-19 tablet by [facility]y of tablet 00:00: mouth [place] 00 daily. [facility] aspirin 81 2019- Yes [id number] 81mg Take 1 U nivers mg EC 1-19 tablet by ity of tablet 00:00: mouth [place] 00 daily. [facility] aspirin 81 2019-1 Yes [id number] 81mg Take 1 U nivers mg EC 1-19 tablet by ity of tablet 00:00: mouth [place] 00 daily. [facility] aspirin 81 2019- Yes [id number] 81mg Take 1 U nivers mg EC 1-19 tablet by [facility]y of tablet 00:00: mouth [place] 00 daily. [facility] aspirin 81 2019- Yes [id number] 81mg Take 1 U nivers mg EC 1-19 tablet by ity of tablet 00:00: mouth [place] 00 daily. [facility] aspirin 81 2019- Yes [id number] 81mg Take 1 U nivers mg EC 1-19 tablet by ity of tablet 00:00: mouth [place] 00 daily. [facility] aspirin 81 2019- Yes [id number] 81mg Take 1 U nivers mg EC 1-19 tablet by ity of tablet 00:00: mouth [place] 00 daily. [facility] aspirin 81 2019- Yes [id number] 81mg Take 1 U nivers mg EC 1-19 tablet by ity of tablet 00:00: mouth [place] 00 daily. [facility] aspirin 81 2019-1 Yes [id number] 81mg Take 1 U nivers mg EC 1-19 tablet by ity of tablet 00:00: mouth [place] 00 daily. [facility] aspirin 81 2019-1 Yes [id number] 81mg Take 1 U nivers mg EC 1-19 tablet by ity of tablet 00:00: mouth [place] 00 daily. [facility] aspirin 81 2019-1 Yes [id number] 81mg Take 1 U nivers mg EC 1-19 tablet by [facility] of tablet 00:00: mouth [place] 00 daily. [facility] aspirin 81 2019-1 Yes [id number] 81mg Take 1 U nivers mg EC 1-19 tablet by [facility]y of tablet 00:00: mouth [place] 00 daily. [facility] aspirin 81 2019-1 Yes [id number] 81mg Take 1 U nivers mg EC 1-19 tablet by [facility]y of tablet 00:00: mouth [place] 00 daily. [facility] aspirin 81 2019- Yes [id number] 81mg Take 1 U nivers mg EC 1-19 tablet by [facility]y of tablet 00:00: mouth [place] 00 daily. [facility] aspirin 81 2019- Yes [id number] 81mg Take 1 U nivers mg EC 1-19 tablet by [facility]y of tablet 00:00: mouth [place] 00 daily. [facility] aspirin 81 2019-1 Yes [id number] 81mg Take 1 U nivers mg EC 1-19 tablet by ity of tablet 00:00: mouth [place] 00 daily. [facility] aspirin 81 2019- Yes [id number] 81mg Take 1 [facility] nivers mg EC 1-19 tablet by [facility]y of tablet 00:00: mouth [place] 00 daily. [facility] aspirin 81 2019- Yes [id number] 81mg Take 1 [facility] nivers mg EC 1-19 tablet by [facility]y of tablet 00:00: mouth [place] 00 daily. [facility] aspirin 81 2019-1 Yes [id number] 81mg Take 1 [facility] nivers mg EC 1-19 tablet by [facility]y of tablet 00:00: mouth [place] 00 daily. [facility] aspirin 81 2019- Yes [id number] 81mg Take 1 U nivers mg EC 1-19 tablet by [facility]y of tablet 00:00: mouth [place] 00 daily. [facility] aspirin 81 2019- Yes [id number] 81mg Take 1 U nivers mg EC 1-19 tablet by [facility]y of tablet 00:00: mouth [place] 00 daily. [facility] aspirin 81 2019-1 Yes [id number] 81mg Take 1 [facility] nivers mg EC 1-19 tablet by [facility]y of tablet 00:00: mouth [place] 00 daily. [facility] aspirin 81 2019-1 Yes [id number] 81mg Take 1 U nivers mg EC 1-19 tablet by ity of tablet 00:00: mouth [place] 00 daily. [facility] aspirin 81 2019-1 Yes [id number] 81mg Take 1 U nivers mg EC 1-19 tablet by ity of tablet 00:00: mouth [place] 00 daily. [facility] aspirin 81 2019-1 Yes [id number] 81mg Take 1 U nivers mg EC 1-19 tablet by ity of tablet 00:00: mouth [place] 00 daily. [facility] aspirin 81 2019-1 Yes [id number] 81mg Take 1 U nivers mg EC 1-19 tablet by [facility]y of tablet 00:00: mouth [place] 00 daily. [facility] aspirin 81 2019- Yes [id number] 81mg Take 1 [facility] nivers mg EC 1-19 tablet by [facility] of tablet 00:00: mouth [place] 00 daily. [facility] aspirin 81 2019- Yes [id number] 81mg Take 1 [facility] nivers mg EC 1-19 tablet by [facility] of tablet 00:00: mouth [place] 00 daily. [facility] aspirin 81 2019- Yes [id number] 81mg Take 1 [facility] nivers mg EC 1-19 tablet by [facility]y of tablet 00:00: mouth [place] 00 daily. [facility] aspirin 81 2019- Yes [id number] 81mg Take 1 [facility] n[facility] mg EC 1-19 tablet by [facility] of tablet 00:00: mouth [place] 00 daily. [facility] aspirin 81 2019- Yes [id number] 81mg Take 1 [facility] n[facility] mg EC 1-19 tablet by [facility] of tablet 00:00: mouth [place] 00 daily. [facility] aspirin 81 2019- Yes [id number] 81mg Take 1 [facility] n[facility] mg EC 1-19 tablet by [facility]y of tablet 00:00: mouth [place] 00 daily. [facility] aspirin 81 2019- Yes [id number] 81mg Take 1 [facility] mg EC 1-19 tablet by [facility] of tablet 00:00: mouth [place] 00 daily. [facility] aspirin 81 2019- Yes [id number] 81mg Take 1 [facility] mg EC 1-19 tablet by [facility] of tablet 00:00: mouth [place] 00 daily. [facility] aspirin 81 2019-1 Yes [id number] 81mg Take 1 [facility] mg EC 1-19 tablet by [facility] of tablet 00:00: mouth [place] 00 daily. [facility] aspirin 81 2019-1 Yes [id number] 81mg Take 1 [facility] mg EC 1-19 tablet by [facility] of tablet 00:00: mouth [place] 00 daily. [facility] aspirin 81 2019- Yes [id number] 81mg Take 1 [facility] mg EC 1-19 tablet by [facility] of tablet 00:00: mouth [place] 00 daily. [facility] aspirin 81 2019-1 Yes [id number] 81mg Take 1 [facility] mg EC 1-19 tablet by [facility] of tablet 00:00: mouth [place] 00 daily. [facility] aspirin 81 2019-1 Yes [id number] 81mg Take 1 [facility] mg EC 1-19 tablet by [facility] of tablet 00:00: mouth [place] 00 daily. [facility] aspirin 81 2019-1 Yes [id number] 81mg Take 1 [facility] mg EC 1-19 tablet by [facility] of tablet 00:00: mouth [place] 00 daily. [facility] aspirin 81 2019- Yes [id number] 81mg Take 1 [facility] n[facility] mg EC 1-19 tablet by [facility] of tablet 00:00: mouth [place] 00 daily. [facility] aspirin 81 2019- Yes [id number] 81mg Take 1 [facility] mg EC 1-19 tablet by [facility] of tablet 00:00: mouth [place] 00 daily. [facility] aspirin 81 2019- Yes [id number] 81mg Take 1 [facility] mg EC 1-19 tablet by [facility] of tablet 00:00: mouth [place] 00 daily. [facility] aspirin 81 2019- Yes [id number] 81mg Take 1 [facility] mg EC 1-19 tablet by [facility] of tablet 00:00: mouth [place] 00 daily. [facility] aspirin 81 2019- Yes [id number] 81mg Take 1 [facility] mg EC 1-19 tablet by [facility] of tablet 00:00: mouth [place] 00 daily. [facility] aspirin 81 2019- Yes [id number] 81mg Take 1 [facility] mg EC 1-19 tablet by [facility] of tablet 00:00: mouth [place] 00 daily. [facility] aspirin 81 2019- Yes [id number] 81mg Take 1 [facility] mg EC 1-19 tablet by [facility] of tablet 00:00: mouth [place] 00 daily. [facility] aspirin 81 2019-1 Yes [id number] 81mg Take 1 [facility] mg EC 1-19 tablet by [facility] of tablet 00:00: mouth [place] 00 daily. [facility] aspirin 81 2019-1 Yes [id number] 81mg Take 1 [facility] mg EC 1-19 tablet by [facility] of tablet 00:00: mouth [place] 00 daily. [facility] aspirin 81 2019-1 Yes [id number] 81mg Take 1 [facility] mg EC 1-19 tablet by [facility] of tablet 00:00: mouth [place] 00 daily. [facility] aspirin 81 2019-1 Yes [id number] 81mg Take 1 [facility] mg EC 1-19 tablet by [facility] of tablet 00:00: mouth [place] 00 daily. [facility] aspirin 81 2019-1 Yes [id number] 81mg Take 1 [facility] mg EC 1-19 tablet by [facility] of tablet 00:00: mouth [place] 00 daily. [facility] aspirin 81 2019-1 Yes [id number] 81mg Take 1 [facility] mg EC 1-19 tablet by [facility] of tablet 00:00: mouth [place] 00 daily. [facility] aspirin 81 2019- Yes [id number] 81mg Take 1 [facility] mg EC 1-19 tablet by [facility] of tablet 00:00: mouth [place] 00 daily. [facility] aspirin 81 2019- Yes [id number] 81mg Take 1 [facility] mg EC 1-19 tablet by [facility] of tablet 00:00: mouth [place] 00 daily. [facility] aspirin 81 2019- Yes [id number] 81mg Take 1 [facility] mg EC 1-19 tablet by [facility] of tablet 00:00: mouth [place] 00 daily. [facility] aspirin 81 2019- Yes [id number] 81mg Take 1 [facility] mg EC 1-19 tablet by [facility] of tablet 00:00: mouth [place] 00 daily. [facility] aspirin 81 2019- Yes [id number] 81mg Take 1 [facility] mg EC 1-19 tablet by [facility] of tablet 00:00: mouth [place] 00 daily. [facility] aspirin 81 2019- Yes [id number] 81mg Take 1 [facility] mg EC 1-19 tablet by [facility] of tablet 00:00: mouth [place] 00 daily. [facility] aspirin 81 2019- Yes [id number] 81mg Take 1 [facility] mg EC 1-19 tablet by [facility] of tablet 00:00: mouth [place] 00 daily. [facility] aspirin 81 2019- Yes [id number] 81mg Take 1 [facility] mg EC 1-19 tablet by [facility] of tablet 00:00: mouth [place] 00 daily. [facility] aspirin 81 2019- Yes [id number] 81mg Take 1 [facility] mg EC 1-19 tablet by [facility] of tablet 00:00: mouth [place] 00 daily. [facility] aspirin 81 2019- Yes [id number] 81mg Take 1 [facility] mg EC 1-19 tablet by [facility] of tablet 00:00: mouth [place] 00 daily. [facility] aspirin 81 2019-1 Yes [id number] 81mg Take 1 [facility] mg EC 1-19 tablet by [facility] of tablet 00:00: mouth [place] 00 daily. [facility] aspirin 81 2019- Yes [id number] 81mg Take 1 [facility] mg EC 1-19 tablet by [facility] of tablet 00:00: mouth [place] 00 daily. [facility] aspirin 81 2019- Yes [id number] 81mg Take 1 [facility] mg EC 1-19 tablet by [facility] of tablet 00:00: mouth [place] 00 daily. [facility] aspirin 81 2018- Yes [id number] 81mg Take 1 [facility] mg EC 1-19 tablet by [facility] of tablet 00:00: mouth [place] 00 daily. [facility] aspirin 81 2018- Yes [id number] 81mg Take 1 [facility] mg EC 1-19 tablet by [facility] of tablet 00:00: mouth [place] 00 daily. [facility] aspirin 81 2018- Yes [id number] 81mg Take 1 [facility] mg EC 1-19 tablet by [facility] of tablet 00:00: mouth [place] 00 daily. [facility] aspirin 81 2018- Yes [id number] 81mg Take 1 [facility] mg EC 1-19 tablet by [facility] of tablet 00:00: mouth [place] 00 daily. [facility] aspirin 81 2018- Yes [id number] 81mg Take 1 [facility] mg EC 1-19 tablet by [facility] of tablet 00:00: mouth [place] 00 daily. [facility] aspirin 81 2018- Yes [id number] 81mg Take 1 [facility] mg EC 1-19 tablet by [facility] of tablet 00:00: mouth [place] 00 daily. [facility] aspirin 81 2019- Yes [id number] 81mg Take 1 [facility] mg EC 1-19 tablet by [facility] of tablet 00:00: mouth [place] 00 daily. [facility] aspirin 81 2019- Yes [id number] 81mg Take 1 [facility] mg EC 1-19 tablet by [facility] of tablet 00:00: mouth [place] 00 daily. [facility] gabapentin 2018- Yes 300mg [id number] Take [address] [facility] (NEURONTIN) 1-05 [id number] mg by [facility] 300 MG 09:48: 3D mouth 3 Medical capsule 00 (three) Center times daily. liraglutide 2018- Yes type 2 1.2mg Inject 1.[address] [facility] 0.6 mg/0.1 1-05 diabetes mg [facility] (18 mg/3 09:48: mellitus subcutaneo Medical mL) PnIj 00 usly. Center topiramate 2018- Yes 50mg Q.5D Take [address] [facility] (TOPAMAX) 1-05 by mouth [facility] 50 MG 09:48: (two) Medical tablet 00 times Center daily. atorvastati 2018-10 Yes 40mg QD Take [address] [facility] (LIPITOR) 1-05 by mouth [facility] 40 MG 09:48: daily. Medical tablet 00 [place] lisinopril 2018-10 Yes 5mg QD Take [address] [facility] [address] [facility] (PRINIVIL,Z 1-05 by mouth [facility] ESTRIL) 40 09:48: daily. Medic al MG tablet 00 [place] carvedilol 2018-10 Yes 6.25mg Take 6.25 [facility] [...] every Medical 00 night as Center needed. gabapentin 2018-10 Yes 300mg [id number] Take [address] [facility] (NEURONTIN) 1-05 [id number] mg by L ukes 300 MG 09:48: 3D mouth 3 Medical capsule 00 (three) Center times daily. liraglutide 2018-10 Yes type 2 1.2mg Inject 1.[address] [facility] 0[facility]6 mg/0.1 1-05 [facility] mg [facility] mL (18 mg/3 09:48: mellitus subcutaneo Medical mL) PnIj 00 usly. [place] topiramate 2018-10 Yes 50mg Q.5D Take [address] (TOPAMAX) 1-05 by mouth 2 [facility] 50 MG 09:48: (two) Medical tablet 00 times Center daily. atorvastati 2018-10 Yes 40mg QD Take [address] [facility] (LIPITOR) 1-05 by mouth [facility] 40 MG 09:48: daily. Medical tablet 00 [place] lisinopril 2018-10 Yes 5mg QD Take [address] (PRINIVIL,Z 1-05 by mouth [facility] s ESTRIL) 40 09:48: daily. Medic al MG tablet 00 [place] carvedilol 2018-10 Yes 6.25mg Take 6.25 [facility] [...] times 100 unit/mL daily. (3 mL) InPn glimepiride 2018-10 Yes 4mg Take [address] [facility] [address] (AMARYL) 4 0-26 tablet (4 [facility] MG tablet 00:00: mg total) Med ical 00 by mouth Center every morning before breakfast. insulin 2018-10 Yes 15U Q.5D Inject 15 [facility] glargine 0-26 Units [facility] (LANTUS 00:00: subcutaneo [facility] purvi SOLOSTAR 00 usly 2 Center U-100 (two) INSULIN) times 100 unit/mL daily. (3 mL) InPn nitroglycer Yes .4mg Place 1 Uni vers in 0.4 mg 9-25 tablet ity of sublingual 00:00: [place] tablet 00 tongue Medical every 5 Branch (five) minutes as needed for Chest pain. nitroglycer Yes .4mg Place 1 Uni vers in 0.4 mg 9-25 tablet ity of sublingual 00:00: [place] tablet 00 tongue Medical every 5 Branch (five) minutes as needed for Chest pain. nitroglycer Yes .4mg Place 1 Uni vers in [...] (five) minutes as needed for Chest pain. Norm Kenalog 2019-0 No 40mg Common (Triamcinol (Triamcinol 6-19 S pirit one) one) 00:00: - [facility] 00 [facility] Kenalog Kenalog 2019-0 No 40mg Common (Triamcinol (Triamcinol 6-19 S pirit one) one) 00:00: - [facility] 00 [facility] Kenalog Kenalog 2019-0 No 40mg Common (Triamcinol (Triamcinol 6-19 S pirit one) one) 00:00: - [facility] 00 [facility] Kenalog Kenalog 2019-0 No 40mg Common (Triamcinol (Triamcinol 6-19 S pirit one) one) 00:00: - [facility] 00 [facility] Kenalog Kenalog 2019-0 No 40mg Common (Triamcinol (Triamcinol 6-19 S pirit one) one) 00:00: - [facility] 00 [facility] Kenalog Kenalog 2019-0 No 40mg Common (Triamcinol (Triamcinol 6-19 S pirit one) one) 00:00: - [facility] 00 [facility] Kenalog Kenalog 2019-0 No 40mg Common (Triamcinol (Triamcinol 6-19 S pirit one) one) 00:00: - [facility] 00 [facility] [place] Kenalog 2019-0 No 40mg Common (Triamcinol (Triamcinol 6-19 S pirit one) one) 00:00: - [facility] 00 [facility] [place] Kenalog 2019-0 No 40mg Common (Triamcinol (Triamcinol 6-19 S pirit one) one) 00:00: - [facility] 00 [facility] [place] Kenalog 2019-0 No 40mg Common (Triamcinol (Triamcinol 6-19 S pirit one) one) 00:00: - [facility] 00 [facility] [place] Kenalog 2019-0 No 40mg Common (Triamcinol (Triamcinol 6-19 S pirit one) one) 00:00: - [facility] 00 [facility] Kenalog Kenalog 2019-0 No 40mg Common (Triamcinol (Triamcinol 6-19 S pirit one) one) 00:00: - [facility] 00 [facility] Kenalog Kenalog 2019-0 No 40mg Common (Triamcinol (Triamcinol 6-19 S pirit one) one) 00:00: - [facility] 00 [facility] Kenalog Kenalog 2019-0 No 40mg Common (Triamcinol (Triamcinol 6-19 S pirit one) one) 00:00: - [facility] 00 [facility] Kenalog Kenalog 2019-0 No 40mg Common (Triamcinol (Triamcinol 6-19 S pirit one) one) 00:00: - [facility] 00 [facility] Norm Zheng 2019-0 No 40mg Common (Triamcinol (Triamcinol 6-19 S pirit one) one) 00:00: - [facility] Norm Zheng 2019-0 No 40mg Common (Triamcinol (Triamcinol 6-19 S pirit one) one) 00:00: - [facility] 00 [facility] Multivitami Multivitami No Multivitam n Adults - n Adults - in Adults - Lipitor 80 Lipitor 80 No 1{table QD Lipitor 80 MG MG t} MG Lipitor 80 Lipitor 80 No 1{table QD Lipitor 80 MG MG t} MG Aspir-81 81 Aspir-81 81 No 1{table QD Aspir-81 MG MG t} 81 MG Calcium-Mag Calcium-Mag No Calcium-Ma nesium-Zinc nesium-Zinc gnesium-Zi - - nc - Contour Contour No QD Contour next next next testing testing testing strips n/s strips n/s strips n/s Atorvastati Atorvastati No Atorvastat n Calcium n Calcium in Calcium 80 MG 80 MG 80 MG Lisinopril Lisinopril No 1{table QD Lisinopril 2.5 MG 2.5 MG t} 2.5 MG Nitroglycer Nitroglycer No Nitroglyce in 0.4 MG in 0.4 MG rin 0.4 MG Spironolact Spironolact No 1{table QD Spironolac one 25 MG one 25 MG t} tone 25 MG Lisinopril Lisinopril No Lisinopril 2.5 MG 2.5 MG 2.5 MG Coreg 3.125 Coreg 3.125 No BID Coreg MG MG 3.125 MG Coreg 3.125 Coreg 3.125 No BID Coreg MG MG 3.125 MG Glimepiride Glimepiride No Glimepirid 4 MG 4 MG e 4 MG Isosorbide Isosorbide No 1{table QD Isosorbide Mononitrate Mononitrate t_in_ Mononitrat ER 30 MG ER 30 MG e_morni e ER 30 MG ng} Glimepiride Glimepiride No Glimepirid 4 MG 4 MG e 4 MG Tradjenta 5 Tradjenta 5 No Tradjenta MG MG 5 MG Clopidogrel Clopidogrel No Clopidogre Bisulfate Bisulfate [...] Victoza Yes Benjamín as Common [facility] directed [facility] - [facility] Isosorbide Isosorbide Yes Benjamín 1 tablet Common Mononitrate Mononitrate Gabriel in the Spirit ER ER [facility] Furosemide Furosemide Yes Benjamín 1 tablet Common Gabriel [facility] Nitroglycer Nitroglycer Yes Benjamín as Common in in Gabriel directed [facility] Gabapentin Gabapentin Yes Benjamín 2 capsule Common Gabriel [facility] Januvia Januvia Yes Benjamín 1 tablet Com mon Gabriel [facility] Coreg Coreg Yes Benjamín 1 tab Common Gabriel [facility] Aspir-81 Aspir-81 Yes Benjamín 1 tablet C ommon Gabriel [facility] Contour Contour Yes Benjamín n/s Common next next Gabriel [facility] testing testing - [facility] strips strips [facility] Calcium-Mag Calcium-Mag Yes Benjamín as Common nesium-Zinc nesium-Zinc Gabriel directed [facility] Lisinopril Lisinopril Yes Benjamín 1 tablet Common Gabriel [facility] Magnesium Magnesium Yes Benjamín 1 tablet Common Oxide Oxide Gabriel as needed [facility] Lipitor Lipitor Yes Benjamín [facility] Fenofibrate Fenofibrate Yes Benjamín 1 tablet Common Gabriel with food [facility] Carvedilol Carvedilol Yes Benjamín 1 tablet Common Gabriel [facility] Clopidogrel Clopidogrel Yes Benjamín TK 1 T PO Common Bisulfate Bisulfate Gabriel D Spir it [facility] Glimepiride Glimepiride Yes Benjamín TAKE ONE Common Gabriel TABLET BY [facility] MOUTH - [facility] TWICE A St DAY WITH [facility] BREAKFAST Medical OR THE [place] FIRST MAIN MEAL OF THE DAY Multivitami Multivitami Yes Benjamín as Common n Adults n Adults Gabriel directed Sp shayne [facility] Spironolact Spironolact Yes Benjamín 1 tablet Common one one Gabriel [facility] Metformin Metformin Yes Benjamín 1 tablet Common HCl HCl Gabriel with meals [facility] Tamsulosin Tamsulosin Yes Benjamín 1 capsule Common HCl HCl Gabriel [facility] Glimepiride Glimepiride Yes Benjamín 1 tablet Common Gabriel with [facility] breakfast - [facility] or the [facility] first main [facility] meal of Medical the day Center Metformin Metformin Yes Benjamín TAKE ONE Common HCl HCl Gabriel TABLET BY Spirit MOUTH - [facility] TWICE A DAY WITH A [facility] Clopidogrel Clopidogrel No Clopidogre Bisulfate Bisulfate l [...] Isosorbide No 1{table QD Isosorbide Mononitrate Mononitrate t_in_ Mononitrat ER 30 MG ER 30 MG [...] 1000 MG t_with_ HCl 1000 meals} MG Magnesium Magnesium No 1{table BID Magnesium Oxide 400 Oxide 400 t_as_ne Oxide 400 MG MG eded} MG Carvedilol Carvedilol No Carvedilol 3.125 MG 3.125 MG 3.125 MG metFORMIN metFORMIN No metFORMIN HCl 1000 MG HCl 1000 MG HCl 1000 MG Vascepa 1 Vascepa 1 No Vascepa 1 GM GM GM Fenofibrate Fenofibrate No Fenofibrat 145 MG 145 MG e 145 MG Victoza 18 Victoza 18 No QD Victoza 18 MG/3ML MG/3ML MG/3ML Isosorbide Isosorbide No Isosorbide Mononitrate Mononitrate Mononitrat ER 30 MG ER 30 MG e ER 30 MG Clopidogrel Clopidogrel No QD Clopidogre Bisulfate Bisulfate l 75 MG 75 MG Bisulfate 75 MG Isosorbide Isosorbide No Isosorbide Mononitrate Mononitrate Mononitrat ER 30 MG ER 30 MG e ER 30 MG Furosemide Furosemide No 1{table QD Furosemide 40 MG 40 MG t} 40 MG Multivitami Multivitami No Multivitam n Adults - n Adults - in Adults - Lipitor 80 Lipitor 80 No 1{table QD Lipitor 80 MG MG t} MG Aspir-81 81 Aspir-81 81 No 1{table QD Aspir-81 MG MG t} 81 MG Calcium-Mag Calcium-Mag No Calcium-Ma nesium-Zinc nesium-Zinc gnesium-Zi - - nc - Contour Contour No QD Contour next next next testing testing testing strips n/s strips n/s strips n/s Atorvastati Atorvastati No Atorvastat n Calcium n Calcium in Calcium 80 MG 80 MG 80 MG Lisinopril Lisinopril No 1{table QD Lisinopril 2.5 MG 2.5 MG t} 2.5 MG Spironolact Spironolact No 1{table QD Spironolac one 25 MG one 25 MG t} tone 25 MG Nitroglycer Nitroglycer No Nitroglyce in 0.4 MG in 0.4 MG rin 0.4 MG Spironolact Spironolact No 1{table QD Spironolac one 25 MG one 25 MG t} tone 25 MG Lisinopril Lisinopril No Lisinopril 2.5 MG 2.5 MG 2.5 MG Coreg 3.125 Coreg 3.125 No BID Coreg MG MG 3.125 MG Glimepiride Glimepiride No Glimepirid 4 MG 4 MG e 4 MG Isosorbide Isosorbide No 1{table QD Isosorbide Mononitrate Mononitrate t_in_th Mononitrat ER 30 MG ER 30 MG e_morni e ER 30 MG ng} Glimepiride Glimepiride No Glimepirid 4 MG 4 MG e 4 MG Aspir-81 81 Aspir-81 81 No 1{table QD Aspir-81 MG MG t} 81 MG Tradjenta 5 Tradjenta 5 No Tradjenta MG MG 5 MG Clopidogrel Clopidogrel No Clopidogre Bisulfate Bisulfate l 75 MG 75 MG Bisulfate 75 MG Tresiba Tresiba No Tresiba FlexTouch FlexTouch FlexTouch 100 UNIT/ML 100 UNIT/ML 100 UNIT/ML Magnesium Magnesium No 1{table BID Magnesium Oxide [...] 145 MG 145 MG e 145 MG Victoza 18 Victoza 18 No QD Victoza 18 MG/3ML MG/3ML MG/3ML Isosorbide Isosorbide No Isosorbide Mononitrate Mononitrate Mononitrat ER 30 MG ER 30 MG e ER 30 MG Clopidogrel Clopidogrel No QD Clopidogre Bisulfate Bisulfate l 75 MG 75 MG Bisulfate 75 MG Furosemide Furosemide No 1{table QD Furosemide 40 MG 40 MG t} 40 MG Multivitami Multivitami No Multivitam n Adults - n Adults - in Adults - Lipitor 80 Lipitor 80 No 1{table QD Lipitor 80 MG MG t} MG Aspir-81 81 Aspir-81 81 No 1{table QD Aspir-81 MG MG t} 81 MG Calcium-Mag Calcium-Mag No Calcium-Ma nesium-Zinc nesium-Zinc gnesium-Zi - - nc - Contour Contour No QD Contour next next next testing testing testing strips n/s strips n/s strips n/s Atorvastati Atorvastati No Atorvastat n Calcium n Calcium in Calcium 80 MG 80 MG 80 MG Lisinopril Lisinopril No 1{table QD Lisinopril 2.5 MG 2.5 MG t} 2.5 MG Nitroglycer Nitroglycer No Nitroglyce in 0.4 MG in 0.4 MG rin 0.4 MG Spironolact Spironolact No 1{table QD Spironolac one 25 MG one 25 MG t} tone 25 MG Lisinopril Lisinopril No Lisinopril 2.5 MG 2.5 MG 2.5 MG Coreg 3.125 Coreg 3.125 No BID Coreg MG MG 3.125 MG Glimepiride Glimepiride No Glimepirid 4 MG 4 MG e 4 MG Isosorbide Isosorbide No 1{table QD Isosorbide Mononitrate Mononitrate t_in_th Mononitrat ER 30 MG ER 30 MG e_morni e ER 30 MG ng} Glimepiride Glimepiride No Glimepirid 4 MG 4 MG e 4 MG Tradjenta 5 Tradjenta 5 No Tradjenta MG MG 5 MG Clopidogrel Clopidogrel No Clopidogre Bisulfate Bisulfate l 75 MG 75 MG Bisulfate 75 MG Magnesium Magnesium No 1{table BID Magnesium Oxide 400 Oxide 400 t_as_ne Oxide 400 MG MG eded} MG Carvedilol Carvedilol No Carvedilol 3.125 MG 3.125 MG 3.125 MG metFORMIN metFORMIN No metFORMIN HCl 1000 MG HCl 1000 MG HCl 1000 MG Vascepa 1 Vascepa 1 No Vascepa 1 GM GM GM Fenofibrate Fenofibrate No Fenofibrat 145 MG 145 MG e 145 MG Victoza 18 Victoza 18 No QD Victoza 18 MG/3ML MG/3ML MG/3ML Isosorbide Isosorbide No Isosorbide Mononitrate Mononitrate Mononitrat ER 30 MG ER 30 MG e ER 30 MG Clopidogrel Clopidogrel No QD Clopidogre Bisulfate Bisulfate l 75 MG 75 MG Bisulfate 75 MG Furosemide Furosemide No 1{table QD Furosemide 40 MG 40 MG t} 40 MG Multivitami Multivitami No Multivitam n Adults - n Adults - in Adults - Lipitor 80 Lipitor 80 No 1{table QD Lipitor 80 MG MG t} MG Aspir-81 81 Aspir-81 81 No 1{table QD Aspir-81 MG MG t} 81 MG Calcium-Mag Calcium-Mag No Calcium-Ma nesium-Zinc nesium-Zinc gnesium-Zi - - nc - Contour Contour No QD Contour next next next testing testing testing strips n/s strips n/s strips n/s Atorvastati Atorvastati No Atorvastat n Calcium n Calcium in Calcium 80 MG 80 MG 80 MG Lisinopril Lisinopril No 1{table QD Lisinopril 2.5 MG 2.5 MG t} 2.5 MG Nitroglycer Nitroglycer No Nitroglyce in 0.4 MG in 0.4 MG rin 0.4 MG Spironolact Spironolact No 1{table QD Spironolac one 25 MG one 25 MG t} tone 25 MG Lisinopril Lisinopril No Lisinopril 2.5 MG 2.5 MG 2.5 MG Multivitami Multivitami No Multivitam n Adults - n Adults - in Adults - Coreg 3.125 Coreg 3.125 No BID Coreg MG MG 3.125 MG Glimepiride Glimepiride No Glimepirid 4 MG 4 MG e 4 MG Isosorbide Isosorbide No 1{table QD Isosorbide Mononitrate Mononitrate t_in_ Mononitrat ER 30 MG ER 30 MG e_morni e ER 30 MG ng} Glimepiride Glimepiride No Glimepirid 4 MG 4 MG e 4 MG Tradjenta 5 Tradjenta 5 No Tradjenta MG MG 5 MG Clopidogrel Clopidogrel No Clopidogre Bisulfate Bisulfate l 75 MG 75 MG Bisulfate 75 MG Clopidogrel Clopidogrel No Clopidogre Bisulfate Bisulfate l 75 MG 75 MG Bisulfate 75 MG Magnesium Magnesium No 1{table BID Magnesium Oxide 400 Oxide 400 t_as_ne Oxide 400 MG MG eded} MG Carvedilol Carvedilol No Carvedilol 3.125 MG 3.125 MG 3.125 MG metFORMIN metFORMIN No metFORMIN HCl 1000 MG HCl 1000 MG HCl 1000 MG Vascepa 1 Vascepa 1 No Vascepa 1 GM GM GM Contour Contour No BID Contour next next next testing testing testing strips n/s strips n/s strips n/s Fenofibrate Fenofibrate No Fenofibrat 145 MG 145 MG e 145 MG Victoza 18 Victoza 18 No QD Victoza 18 MG/3ML MG/3ML MG/3ML Isosorbide Isosorbide No Isosorbide Mononitrate Mononitrate Mononitrat ER 30 MG ER 30 MG e ER 30 MG Clopidogrel Clopidogrel No QD Clopidogre Bisulfate Bisulfate l 75 MG 75 MG Bisulfate 75 MG Furosemide Furosemide No 1{table QD Furosemide 40 MG 40 MG t} 40 MG Tamsulosin Tamsulosin 2022- No Tamsulosin HCl 0.4 MG HCl 0.4 MG 08-24 HCl 0.4 MG 00:00 :00 Tamsulosin Tamsulosin 2023- No Tamsulosin HCl 0.4 MG HCl 0.4 MG 08-24 HCl 0.4 MG 00:00 :00 Tamsulosin Tamsulosin 3- No Tamsulosin HCl 0.4 MG HCl 0.4 MG 08-24 HCl 0.4 MG 00:00 :00 Tamsulosin Tamsulosin 2022- No Tamsulosin HCl 0.4 MG HCl 0.4 MG 08-24 HCl 0.4 MG 00:00 :00 Tamsulosin Tamsulosin 2022- No Tamsulosin HCl 0.4 MG HCl 0.4 MG 08-24 HCl 0.4 MG 00:00 :00 Tamsulosin Tamsulosin 3- No Tamsulosin HCl 0.4 MG HCl 0.4 MG 08-24 HCl 0.4 MG 00:00 :00 Tamsulosin Tamsulosin 3- No Tamsulosin HCl 0.4 MG HCl 0.4 MG 08-24 HCl 0.4 MG 00:00 :00 Tamsulosin Tamsulosin 3- No Tamsulosin HCl 0.4 MG HCl 0.4 MG 08-24 HCl 0.4 MG 00:00 :00 Tamsulosin Tamsulosin 3- No Tamsulosin HCl 0.4 MG HCl 0.4 MG 08-24 HCl 0.4 MG 00:00 :00 Tamsulosin Tamsulosin 3- No Tamsulosin HCl 0.4 MG HCl 0.4 MG 08-24 HCl 0.4 MG 00:00 :00 Tamsulosin Tamsulosin 3- No Tamsulosin HCl 0.4 MG HCl 0.4 MG 08-24 HCl 0.4 MG 00:00 :00 Tamsulosin Tamsulosin 2023- No Tamsulosin HCl 0.4 MG HCl 0.4 MG 08-24 HCl 0.4 MG 00:00 :00 Tamsulosin Tamsulosin 2023- No Tamsulosin HCl 0.4 MG HCl 0.4 MG 08-24 HCl 0.4 MG 00:00 :00 Tamsulosin Tamsulosin 3- No Tamsulosin HCl 0.4 MG HCl 0.4 MG 08-24 HCl 0.4 MG 00:00 :00 Magnesium Magnesium 2022- No 1{table BID Magnesium Oxide 400 Oxide 400 03-18 t_as_ne Oxide 400 MG MG 00:00 eded} MG :00 Magnesium Magnesium 2021- No 1{table BID Magnesium Oxide 400 Oxide 400 -18 t_as_ne Oxide 400 MG MG 00:00 eded} MG :00 Magnesium Magnesium 2021- No 1{table BID Magnesium Oxide 400 Oxide 400 -18 t_as_ne Oxide 400 MG MG 00:00 eded} MG :00 Immunizations Ordered Filled Date Status Comments Source Immunization Name Immunization Name FluAD [facility]AD 2021-[facility]-06 [facility] FluAD FluAD 2021-07-06 [facility] FluAD FluAD 2021-07-06 [facility]:28[facility]00 [facility] FluAD FluAD 2021-07-06 [facility] - [facility]:28:00 [facility] FluAD FluAD 2021-07-06 [facility] 16:28:00 [facility] FluAD FluAD 2021-07-06 [facility] 16:28:00 [facility] FluAD FluAD 2021-07-06 [facility] - 16:28:00 [facility] FluAD FluAD 2021-07-06 [facility]:28:00 [facility] FluAD FluAD 2021-07-06 [facility] - 16[facility]28:00 [facility] FluAD FluAD 2021-07-06 [facility] - 16:28:00 [facility] FluAD FluAD 2021-07-06 [facility] 16:28:00 [facility] FluAD FluAD 2021-07-06 [facility] - 16:28:00 [facility] FluAD FluAD 2021-07-06 [facility] 16:28:00 [facility] FluAD FluAD 2021-07-06 [facility] - 16:28:00 [facility] FluAD FluAD 2021-07-06 [facility] - 16:28:00 [facility] FluAD FluAD 2021-07-06 [facility] - 16:28:00 [facility] FluAD FluAD 2021-07-06 [facility] - 16:28:00 [facility] FluAD FluAD 2021-07-06 [facility] - 16:28:00 [facility] FluAD FluAD 2021-07-06 [facility] - 16:28:00 [facility] FluAD FluAD 2021-07-06 [facility] 16:28:00 [facility] FluAD FluAD 2021-07-06 [facility] 16:28:00 [facility] FluAD FluAD 2021-07-06 [facility] - 16:28:00 [facility] FluAD FluAD 2021-07-06 [facility] - 16:28:00 [facility] Seasonal Trivalent 2021-07-06 Completed J[facility] Starrybold Influenza Vaccine, 00:00:00 Adjuvanted, Preserve Seasonal Trivalent 2021-07-06 Completed Jada Starrybold Influenza Vaccine, 00:00:00 Adjuvanted, Preserve SARS-COV-2 COVID-19 2020-12-04 Completed Unive rsity of MODERNA VACCINE 00:00:00 [facility] SARS-COV-2 COVID-19 2020-12-04 Completed Unive rsity of MODERNA VACCINE 00:00:00 [facility] SARS-COV-2 COVID-19 2020-12-04 Completed Unive rsity of MODERNA VACCINE 00:00:00 [facility] SARS-COV-2 COVID-19 2020-12-04 Completed Unive rsity of MODERNA VACCINE 00:00:00 [facility] SARS-COV-2 COVID-19 2020-12-04 Completed Unive rsity of MODERNA VACCINE 00:00:00 [facility] SARS-COV-2 COVID-19 2020-12-04 Completed Unive rsity of MODERNA VACCINE 00:00:00 [facility] SARS-COV-2 COVID-19 2020-12-04 Completed Unive rsity of MODERNA VACCINE 00:00:00 [facility] SARS-COV-2 COVID-19 2020-12-04 Completed Unive rsity of [...] [place] [facility] Influenza Virus 2019-08-01 Completed Jada Starr ybold Vaccine, High Dose, 00:00:00 Age 65 And Up Influenza Virus 2019-08-01 Completed Jada Starr ybold Vaccine, High Dose, 00:00:00 Age 65 And Up Influenza High Dose 2019-08-01 Completed [facility] of 00:00:00 [facility] Influenza High Dose 2019-08-01 Completed Unive rsity of 00:00:00 [facility] Influenza High Dose 2019-08-01 Completed Unive rsity of 00:00:00 [facility] Influenza High Dose 2019-08-01 Completed Unive rsity of 00:00:00 [facility] Influenza High Dose 2019-08-01 Completed Unive rsity of 00:00:00 [facility] Influenza High Dose 2019-08-01 Completed Unive rsity of 00:00:00 [facility] Influenza High Dose 2019-08-01 Completed Unive rsity of 00:00:00 [facility] Influenza High Dose 2019-08-01 Completed Unive rsity of 00:00:00 [facility] Influenza High Dose 2019-08-01 Completed Unive rsity of 00:00:00 [facility] Influenza High Dose 2019-08-01 Completed Unive rsity of 00:00:00 [facility] Influenza High Dose 2019-08-01 Completed Unive rsity of 00:00:00 [facility] Influenza High Dose 2019-08-01 Completed Unive rsity of 00:00:00 [facility] Influenza High Dose 2019-08-01 Completed Unive rsity of 00:00:00 [facility] Influenza High Dose 2019-08-01 Completed Unive rsity of 00:00:00 [facility] Influenza High Dose 2019-08-01 Completed Unive rsity of 00:00:00 [facility] Influenza High Dose 2019-08-01 Completed Unive rsity of 00:00:00 [facility] Influenza High Dose 2019-08-01 Completed Unive rsity of 00:00:00 [facility] Influenza High Dose 2019-08-01 Completed Unive rsity of 00:00:00 [facility] Influenza High Dose 2019-08-01 Completed Unive rsity of 00:00:00 [facility] Influenza High Dose 2019-08-01 Completed Unive rsity of 00:00:00 [facility] Influenza High Dose 2019-08-01 Completed Unive rsity of 00:00:00 [facility] Influenza High Dose 2019-08-01 Completed Unive rsity of 00:00:00 [facility] Influenza High Dose 2019-08-01 Completed Unive rsity of 00:00:00 [facility] Influenza High Dose 2019-08-01 Completed Unive rsity of 00:00:00 [facility] Influenza High Dose 2019-08-01 Completed Unive rs[facility] of 00:00:00 [facility] Influenza High Dose 2019-08-01 Completed [facility] rs[facility] of 00:00:00 [facility] Influenza High Dose 2019-08-01 Completed Unive rsity of 00:00:00 [facility] Influenza High Dose 2019-08-01 Completed [facility]ive rs[facility] of 00:00:00 [facility] Influenza High Dose 2019-08-01 Completed [facility] of 00:00:00 [facility] Influenza High Dose 2019-08-01 Completed Unive rsity of 00:00:00 [facility] Influenza High Dose 2019-08-01 Completed Unive rsity of 00:00:00 [facility] Influenza High Dose 2019-08-01 Completed Unive rs[facility] of 00:00:00 [facility] Influenza High Dose 2019-08-01 Completed Unive rsity of 00:00:00 [facility] Influenza High Dose 2019-08-01 Completed Unive rs[facility] of 00:00:00 [facility] Influenza High Dose 2019-08-01 Completed Unive rsity of 00:00:00 [facility] Influenza High Dose 2019-08-01 Completed Unive rsity of 00:00:00 [facility] Influenza High Dose 2019-08-01 Completed Unive rsity of 00:00:00 [facility] Influenza High Dose 2019-08-01 Completed Unive rsity of 00:00:00 [facility] Influenza High Dose 2019-08-01 Completed Unive rsity of 00:00:00 [facility] Influenza High Dose 2019-08-01 Completed Unive rsity of 00:00:00 [facility] Influenza High Dose 2019-08-01 Completed Unive rsity of 00:00:00 [facility] Influenza High Dose 2019-08-01 Completed Unive rsity of 00:00:00 [facility] Influenza High Dose 2019-08-01 Completed Unive rsity of 00:00:00 [facility] Influenza High Dose 2019-08-01 Completed Unive rsity of 00:00:00 [facility] Influenza High Dose 2019-08-01 Completed Unive rsity of 00:00:00 [facility] Influenza High Dose 2019-08-01 Completed Unive rsity of 00:00:00 [facility] Influenza High Dose 2019-08-01 Completed Unive rsity of 00:00:00 [facility] [facility] Influ[facility] High Dose 2019-08-01 Completed [facility] 00:00:00 [facility] Influenza High Dose 2019-08-01 Completed [facility] 00:00:00 [facility] Influenza High Dose 2019-08-01 Completed [facility] 00[facility]00:00 [facility] Influenza High Dose 2019-08-01 Completed [facility] 00:00:00 [facility] Influenza High Dose 2019-08-01 Completed [facility] 00:00:00 [facility] Influenza High Dose 2019-08-01 Completed [facility] 00:00:00 [facility] Influenza High Dose 2019-08-01 Completed [facility] 00:00:00 [facility] Influenza High Dose 2019-08-01 Completed [facility] 00:00:00 [facility] Influenza High Dose 2019-08-01 Completed [facility] 00:00:00 [facility] Influenza High Dose 2019-08-01 Completed [facility] 00:00:00 [facility] Influenza High Dose 2019-08-01 Completed [facility] 00:00:00 [facility] Influenza High Dose 2019-08-01 Completed [facility] 00:00:00 [facility] Influenza High Dose 2019-08-01 Completed [facility] 00:00:00 [facility] Influenza High Dose 2019-08-01 Completed [facility] 00:00:00 [facility] Influenza High Dose 2019-08-01 Completed [facility] 00:00:00 [facility] Influenza High Dose 2019-08-01 Completed [facility] 00:00:00 [facility] Influenza High Dose 2019-08-01 Completed [facility] 00:00:00 [facility] Influenza High Dose 2019-08-01 Completed [facility] 00:00:00 [facility] Influenza High Dose 2019-08-01 Completed [facility] 00:00:00 [facility] Influenza High Dose 2019-08-01 Completed [facility] 00:00:00 [facility] Influenza High Dose 2019-08-01 Completed [facility] 00:00:00 [facility] Influenza High Dose 2019-08-01 Completed [facility] 00:00:00 [facility] Influenza High Dose 2019-08-01 Completed [facility] 00:00:00 [facility] Influenza High Dose 2019-08-01 Completed [facility] 00:00:00 [facility] Influenza High Dose 2019-08-01 Completed [facility] 00:00:00 [facility] Influenza High Dose 2019-08-01 Completed [facility] 00:00:00 [facility] Influenza High Dose 2019-08-01 Completed [facility] 00:00:00 [facility] Influenza High Dose 2019-08-01 Completed [facility] 00:00:00 [facility] Influenza High Dose 2019-08-01 Completed [facility] 00:00:00 [facility] Influenza High Dose 2019-08-01 Completed [facility] 00:00:00 [facility] Influenza High Dose 2019-08-01 Completed [facility] 00:00:00 [facility] Influenza High Dose 2019-08-01 Completed [facility] 00:00:00 [facility] Influenza High Dose 2019-08-01 Completed [facility] 00:00:00 [facility] Influenza High Dose 2019-08-01 Completed [facility] 00:00:00 [facility] Influenza High Dose 2019-08-01 Completed [facility] 00:00:00 [facility] Influenza High Dose 2019-08-01 Completed [facility] 00:00:00 [facility] Influenza High Dose 2019-08-01 Completed [facility] 00:00:00 [facility] Influenza High Dose 2019-08-01 Completed [facility] 00:00:00 [facility] Influenza High Dose 2019-08-01 Completed [facility] 00:00:00 [facility] Influenza High Dose 2019-08-01 Completed [facility] 00:00:00 [facility] Influenza High Dose 2019-08-01 Completed [facility] 00:00:00 [facility] Influenza High Dose 2019-08-01 Completed [facility] 00:00:00 [facility] Influenza High Dose 2019-08-01 Completed [facility] 00:00:00 [facility] Influenza High Dose 2019-08-01 Completed [facility] 00:00:00 [facility] Influenza High Dose 2019-08-01 Completed [facility] 00:00:00 [facility] Influenza High Dose 2019-08-01 Completed [facility] 00:00:00 [facility] Influenza High Dose 2019-08-01 Completed [facility] 00:00:00 [facility] Influenza High Dose 2019-08-01 Completed [facility] 00:00:00 [facility] Influenza High Dose 2019-08-01 Completed [facility] 00:00:00 [facility] Influenza High Dose 2019-08-01 Completed [facility] 00:00:00 [facility] Influenza High Dose 2019-08-01 Completed [facility] 00:00:00 [facility] Influenza High Dose 2019-08-01 Completed [facility] 00:00:00 [facility] Influenza High Dose 2019-08-01 Completed [facility] 00:00:00 [facility] Influenza High Dose 2019-08-01 Completed [facility] 00:00:00 [facility] Influenza High Dose 2019-08-01 Completed [facility] 00:00:00 [facility] Influenza High Dose 2019-08-01 Completed [facility] 00:00:00 [facility] Influenza High Dose 2019-08-01 Completed [facility] 00:00:00 [facility] Influenza High Dose 2019-08-01 Completed [facility] 00:00:00 [facility] Influenza High Dose 2019-08-01 Completed [facility] 00:00:00 [facility] Influenza High Dose 2019-08-01 Completed [facility] 00:00:00 [facility] Influenza High Dose 2019-08-01 Completed [facility] 00:00:00 [facility] Influenza High Dose 2019-08-01 Completed [facility] 00:00:00 [facility] Influenza High Dose 2019-08-01 Completed [facility] 00:00:00 [facility] Influenza High Dose 2019-08-01 Completed [facility] 00:00:00 [facility] Influenza High Dose 2019-08-01 Completed [facility] 00:00:00 [facility] Influenza High Dose 2019-08-01 Completed [facility] 00:00:00 [facility] Influenza High Dose 2019-08-01 Completed [facility] 00:00:00 [facility] Influenza High Dose 2019-08-01 Completed [facility] 00:00:00 [facility] Prevnar 13 Prevnar 13 2019-07-03 Completed [facility] - -Pneumonia Vaccine -Pneumonia Vaccine 09:17:00 [facility] Prevnar 13 Prevnar 13 2019-07-03 Completed [facility] - -Pneumonia Vaccine -Pneumonia Vaccine 09:17:00 [facility] Prevnar 13 Prevnar 13 2019-07-03 Completed [facility] - -Pneumonia Vaccine -Pneumonia Vaccine 09:17:00 [facility] Prevnar 13 Prevnar 13 2019-07-03 Completed [facility] - -Pneumonia Vaccine -Pneumonia Vaccine 09:17:00 [facility] Prevnar 13 Prevnar 13 2019-07-03 Completed [facility] - -Pneumonia Vaccine -Pneumonia Vaccine 09:17:00 [facility] Prevnar 13 Prevnar 13 2019-07-03 Completed [facility] - -Pneumonia Vaccine -Pneumonia Vaccine 09:17:00 [facility] Prevnar 13 Prevnar 13 2019-07-03 Completed [facility] - -Pneumonia Vaccine -Pneumonia Vaccine 09:17:00 [facility] Prevnar 13 Prevnar 13 2019-07-03 Completed [facility] - -Pneumonia Vaccine -Pneumonia Vaccine 09:17:00 [facility] Prevnar 13 Prevnar 13 2019-07-03 Completed [facility] - -Pneumonia Vaccine -Pneumonia Vaccine 09:17:00 [facility] Prevnar 13 Prevnar 13 2019-07-03 Completed [facility] - -Pneumonia Vaccine -Pneumonia Vaccine 09:17:00 [facility] Prevnar 13 Prevnar 13 2019-07-03 Completed [facility] - -Pneumonia Vaccine -Pneumonia Vaccine 09:17:00 [facility] Prevnar 13 Prevnar 13 2019-07-03 Completed [facility] - -Pneumonia Vaccine -Pneumonia Vaccine 09:17:00 [facility] Prevnar 13 Prevnar 13 2019-07-03 Completed [facility] - -Pneumonia Vaccine -Pneumonia Vaccine 09:17:00 [facility] Prevnar 13 Prevnar 13 2019-07-03 Completed [facility] - -Pneumonia Vaccine -Pneumonia Vaccine 09:17:00 [facility] Prevnar 13 Prevnar 13 2019-07-03 Completed [facility] - -Pneumonia Vaccine -Pneumonia Vaccine 09:17:00 [facility] Prevnar 13 Prevnar 13 2019-07-03 Completed [facility] - -Pneumonia Vaccine -Pneumonia Vaccine 09:17:00 [facility] Prevnar 13 Prevnar 13 2019-07-03 Completed [facility] - -Pneumonia Vaccine -Pneumonia Vaccine 09:17:00 [facility] Prevnar 13 Prevnar 13 2019-07-03 Completed [facility] - -Pneumonia Vaccine -Pneumonia Vaccine 09:17:00 [facility] Prevnar 13 Prevnar 13 2019-07-03 Completed [facility] - -Pneumonia Vaccine -Pneumonia Vaccine 09:17:00 [facility] Prevnar 13 Prevnar 13 2019-07-03 Completed [facility] - -Pneumonia Vaccine -Pneumonia Vaccine 09:17:00 [facility] Prevnar 13 Prevnar 13 2019-07-03 Completed [facility] - -Pneumonia Vaccine -Pneumonia Vaccine 09:17:00 [facility] Prevnar 13 Prevnar 13 2019-07-03 Completed [facility] - -Pneumonia Vaccine -Pneumonia Vaccine 09:17:00 [facility] Prevnar 13 Prevnar 13 2019-07-03 Completed [facility] - -Pneumonia Vaccine -Pneumonia Vaccine 09:17:00 [facility] Prevnar 13 Prevnar 13 2019-07-03 Completed [facility] - -Pneumonia Vaccine -Pneumonia Vaccine 09:17:00 [facility] Prevnar 13 Prevnar 13 2019-07-03 Completed [facility] - -Pneumonia Vaccine -Pneumonia Vaccine 09:17:00 [facility] Prevnar 13 Prevnar 13 2019-07-03 Completed [facility] - -Pneumonia Vaccine -Pneumonia Vaccine 09:17:00 [facility] Prevnar 13 Prevnar 13 2019-07-03 Completed [facility] - -Pneumonia Vaccine -Pneumonia Vaccine 09:17:00 [facility] Prevnar 13 Prevnar 13 2019-07-03 Completed [facility] - -Pneumonia Vaccine -Pneumonia Vaccine 09:17:00 [facility] Pneumococcal 2019-07-03 Completed [facility] Vaccine, Conjugate 00:00:00 13 Pneumococcal 2019-07-03 Completed [facility] Vaccine, Conjugate 00:00:00 13 Prevnar 13 Prevnar 13 2019-07-03 Completed [facility] - -Pneumonia Vaccine -Pneumonia Vaccine 00:00:00 [facility] FLUZONE HIGH DOSE FLUZONE HIGH DOSE 2019-06-04 Completed [facility] - OVER 65 OVER 65 08:47:00 [facility] FLUZONE HIGH DOSE FLUZONE HIGH DOSE 2019-06-04 Completed [facility] - OVER 65 OVER 65 08:47:00 [facility] FLUZONE HIGH DOSE FLUZONE HIGH DOSE 2019-06-04 Completed [facility] - OVER 65 OVER 65 08:47:00 [facility] FLUZONE HIGH DOSE FLUZONE HIGH DOSE 2019-06-04 Completed [facility] - OVER 65 OVER 65 08:47:00 [facility] FLUZONE HIGH DOSE FLUZONE HIGH DOSE 2019-06-04 Completed [facility] - OVER 65 OVER 65 08:47:00 [facility] FLUZONE HIGH DOSE FLUZONE HIGH DOSE 2019-06-04 Completed [facility] - OVER 65 OVER 65 08:47:00 [facility] FLUZONE HIGH DOSE FLUZONE HIGH DOSE 2019-06-04 Completed [facility] - OVER 65 OVER 65 08:47:00 [facility] FLUZONE HIGH DOSE FLUZONE HIGH DOSE 2019-06-04 Completed [facility] - OVER 65 OVER 65 08:47:00 [facility] FLUZONE HIGH DOSE FLUZONE HIGH DOSE 2019-06-04 Completed [facility] - OVER 65 OVER 65 08:47:00 [facility] FLUZONE HIGH DOSE FLUZONE HIGH DOSE 2019-06-04 Completed [facility] - OVER 65 OVER 65 08:47:00 [facility] FLUZONE HIGH DOSE FLUZONE HIGH DOSE 2019-06-04 Completed [facility] - OVER 65 OVER 65 08:47:00 [facility] FLUZONE HIGH DOSE FLUZONE HIGH DOSE 2019-06-04 Completed [facility] - OVER 65 OVER 65 08:47:00 [facility] FLUZONE HIGH DOSE FLUZONE HIGH DOSE 2019-06-04 Completed [facility] - OVER 65 OVER 65 08:47:00 [facility] FLUZONE HIGH DOSE FLUZONE HIGH DOSE 2019-06-04 Completed [facility] - OVER 65 OVER 65 08:47:00 [facility] FLUZONE HIGH DOSE FLUZONE HIGH DOSE 2019-06-04 Completed [facility] - OVER 65 OVER 65 08:47:00 [facility] FLUZONE HIGH DOSE FLUZONE HIGH DOSE 2019-06-04 Completed [facility] - OVER 65 OVER 65 08:47:00 [facility] FLUZONE HIGH DOSE FLUZONE HIGH DOSE 2019-06-04 Completed [facility] - OVER 65 OVER 65 08:47:00 [facility] FLUZONE HIGH DOSE FLUZONE HIGH DOSE 2019-06-04 Completed [facility] - OVER 65 OVER 65 08:47:00 [facility] FLUZONE HIGH DOSE FLUZONE HIGH DOSE 2019-06-04 Completed [facility] - OVER 65 OVER 65 08:47:00 [facility] FLUZONE HIGH DOSE FLUZONE HIGH DOSE 2019-06-04 Completed [facility] - OVER 65 OVER 65 08:47:00 [facility] FLUZONE HIGH DOSE FLUZONE HIGH DOSE 2019-06-04 Completed [facility] - OVER 65 OVER 65 08:47:00 [facility] FLUZONE HIGH DOSE FLUZONE HIGH DOSE 2019-06-04 Completed [facility] - OVER 65 OVER 65 08:47:00 [facility] FLUZONE HIGH DOSE FLUZONE HIGH DOSE 2019-06-04 Completed [facility] - OVER 65 OVER 65 08:47:00 [facility] FLUZONE HIGH DOSE FLUZONE HIGH DOSE 2019-06-04 Completed [facility] - OVER 65 OVER 65 08:47:00 [facility] FLUZONE HIGH DOSE FLUZONE HIGH DOSE 2019-06-04 Completed [facility] - OVER 65 OVER 65 08:47:00 [facility] FLUZONE HIGH DOSE FLUZONE HIGH DOSE 2019-06-04 Completed [facility] - OVER 65 OVER 65 08:47:00 [facility] FLUZONE HIGH DOSE FLUZONE HIGH DOSE 2019-06-04 Completed [facility] - OVER 65 OVER 65 08:47:00 [facility] FLUZONE HIGH DOSE FLUZONE HIGH DOSE 2019-06-04 Completed [facility] - OVER 65 OVER 65 08:47:00 [facility] Influenza Virus 2019-06-04 Completed Ajda Se ybold Vaccine, High Dose, 00:00:00 Age 65 And Up Influenza Virus 2019-06-04 Completed Jada Se ybold Vaccine, High Dose, 00:00:00 Age 65 And Up FLUZONE HIGH DOSE FLUZONE HIGH DOSE 2019-06-04 Completed [facility] - OVER 65 OVER 65 00:00:00 [facility] Kenalog Kenalog 2019-03-19 Completed [facility] - (Triamcinolone) (Triamcinolone) 15:11:00 [facility] Kenalog Kenalog 2019-03-19 Completed [facility] - (Triamcinolone) (Triamcinolone) 15:11:00 [facility] Kenalog Kenalog 2019-03-19 Completed [facility] - (Triamcinolone) (Triamcinolone) 15:11:00 [facility] Kenalog Alexalog 2019-03-19 Completed [facility] - (Triamcinolone) (Triamcinolone) 15:11:00 [facility] Kenalog Kenalog 2019-03-19 Completed [facility] - (Triamcinolone) (Triamcinolone) 15:11:00 [facility] Kenalog Kenalog 2019-03-19 Completed [facility] - (Triamcinolone) (Triamcinolone) 15:11:00 [facility] Kenalog Kenalog 2019-03-19 Completed [facility] - (Triamcinolone) (Triamcinolone) 15:11:00 [facility] Influenza High Dose Unknown Completed [facility] Influenza Virus Unknown Completed [facility] [place] [facility] Multi-dose 6+ MO [facility] SARS-COV-2 COVID-19 Unknown Completed [facility] MODERNA 12+ YRS [place] [facility] VACCINE [facility] SARS-COV-2 COVID-19 Unknown Completed [facility] 12+ YRS [place] [facility] Influenza High Dose Unknown Completed [facility] Influenza Virus Unknown Completed [facility] [place] [facility] Multi-dose 6+ MO [facility] SARS-COV-2 COVID-19 Unknown Completed [facility] 12+ YRS [place] [facility] VACCINE [facility] SARS-COV-2 COVID-19 Unknown Completed [facility] 12+ YRS [place] [facility]INE [facility] Influenza High Dose Unknown Completed [facility] Influenza Virus Unknown Completed [facility] [place] [facility] Multi-dose 6+ [facility] SARS-COV-2 COVID-19 Unknown Completed [facility] MODERNA 12+ YRS [place] [facility] VACCINE [facility] SARS-COV-2 COVID-19 Unknown Completed [facility]NA 12+ YRS [place] [facility]INE [facility] Influenza High Dose Unknown Completed [facility] Influenza Virus Unknown Completed [facility] [place] [facility] Multi-dose 6+ MO [facility] SARS-COV-2 COVID-19 Unknown Completed [facility] MODERNA 12+ YRS [place] [facility] VACCINE [facility] SARS-COV-2 COVID-19 Unknown Completed [facility]NA 12+ YRS [place] [facility] V[facility]INE [facility] Influenza High Dose Unknown Completed [facility] Influenza Virus Unknown Completed [facility] [place] [facility] Multi-dose 6+ MO [facility] SARS-COV-2 COVID-19 Unknown Completed [facility] MODERNA 12+ YRS [place] [facility] VACCINE [facility] SARS-COV-2 COVID-19 Unknown Completed [facility] 12+ YRS [place] [facility] V[facility] Influenza High Dose Unknown Completed [facility] Influenza Virus Unknown Completed [facility]ine [facility] [place] [facility] Multi-dose 6+ [facility] SARS-COV-2 COVID-19 Unknown Completed [facility] MODERNA 12+ YRS [place] [facility] VACCINE [facility] SARS-COV-2 COVID-19 Unknown Completed [facility]NA 12+ YRS [place] [facility] VACCINE [facility] Influenza High Dose Unknown Completed [facility] Influenza Virus Unknown Completed [facility] Vaccine [facility] [place] [facility] Multi-dose 6+ [facility] SARS-COV-2 COVID-19 Unknown Completed [facility]NA 12+ YRS [place] [facility] VACCINE [facility] SARS-COV-2 COVID-19 Unknown Completed [facility] 12+ YRS [place] [facility] Influenza High Dose Unknown Completed [facility] Influenza Virus Unknown Completed [facility] Vaccine [facility] [place] [facility] Multi-dose 6+ [facility] SARS-COV-2 COVID-19 Unknown Completed [facility] 12+ YRS [place] [facility] VACCINE [facility] SARS-COV-2 COVID-19 Unknown Completed [facility] 12+ YRS [place] [facility] VACCINE [facility] Vital Signs Vital Name Observation Time Observation Value Comments Source Systolic blood 2023-06-12 19:27:00 106 mm[Hg] [facility] Diastolic blood 2023-06-12 19:27:00 61 mm[Hg] [facility] Heart rate 2023-06-12 19:27:00 72 /min [facility] Body temperature 2023-06-12 19:27:00 36.22 Jenny [facility] Respiratory rate 2023-06-12 19:27:00 20 /min [facility] 2023-06-12 19:27:00 165.1 cm [facility] Body weight 2023-06-12 19:27:00 88.089 kg [facility] BMI 2023-06-12 19:27:00 32.32 kg/m2 [facility] Oxygen saturation in 2023-06-12 19:27:00 97 /min [facility] by [place] [facility] P[facility] oxim[facility] Systolic blood 2023-05-22 18:22:00 127 mm[Hg] [facility] Diastolic blood 2023-05-22 18:22:00 73 mm[Hg] [facility] Heart rate 2023-05-22 18:22:00 73 /min [facility] Body temperature 2023-05-22 18:22:00 35.83 Jenny [facility] Respiratory rate 2023-05-22 18:22:00 18 /min [facility] Body height 2023-05-22 18:22:00 167.6 cm [facility] Body weight 2023-05-22 18:22:00 92.851 kg [facility] BMI 2023-05-22 18:22:00 33.04 kg/m2 [facility] Oxygen saturation in 2023-05-22 18:22:00 96 /min [facility] Arterial blood by [facility] Pulse oximetry Branch Body temperature 2023-05-14 14:57:00 36.33 Jenny [facility] Body height 2023-05-14 14:57:00 167.6 cm [facility] Body weight 2023-05-14 14:57:00 90.402 kg [facility] BMI 2023-05-14 14:57:00 32.17 kg/m2 [facility] Systolic blood 2023-04-26 15:42:00 131 mm[Hg] [facility] Diastolic blood 2023-04-26 15:42:00 69 mm[Hg] [facility] Heart rate 2023-04-26 15:42:00 62 /min [facility] Respiratory rate 2023-04-26 15:42:00 16 /min [facility] Body height 2023-04-26 15:42:00 167.6 cm [facility] Body weight 2023-04-26 15:42:00 89.812 kg [facility] BMI 2023-04-26 15:42:00 31.96 kg/m2 [facility] Oxygen saturation in 2023-04-26 15:42:00 97 /min [facility] Arterial blood by [facility] Pulse oximetry Branch Systolic blood 2023-04-21 16:27:00 109 mm[Hg] [facility] Diastolic blood 2023-04-21 16:27:00 65 mm[Hg] [facility] Heart rate 2023-04-21 16:27:00 75 /min [facility] Body temperature 2023-04-21 16:27:00 37.22 Jenny [facility] Respiratory rate 2023-04-21 16:27:00 18 /min [facility] Oxygen saturation in 2023-04-21 16:27:00 91 /min [facility] Arterial blood by [facility] Pulse oximetry Branch Body height 2023-04-20 22:27:00 167.6 cm [facility] Body weight 2023-04-20 22:27:00 90.084 kg [facility] BMI 2023-04-20 22:27:00 32.05 kg/m2 [facility] Systolic blood 2023-04-20 14:50:00 137 mm[Hg] [facility] Diastolic blood 2023-04-20 14:50:00 91 mm[Hg] [facility] Heart rate 2023-04-20 14:50:00 80 /min [facility] Body temperature 2023-04-20 14:50:00 36.39 Jenny [facility] Respiratory rate 2023-04-20 14:50:00 18 /min [facility] Body height 2023-04-20 14:50:00 167.6 cm [facility] Body weight 2023-04-20 14:50:00 90.084 kg [facility] BMI 2023-04-20 14:50:00 32.05 kg/m2 [facility] Oxygen saturation in 2023-04-20 14:50:00 95 /min [facility] Arterial blood by [facility] Pulse oximetry Branch Systolic blood 2023-04-17 16:00:00 132 mm[Hg] [facility] Diastolic blood 2023-04-17 16:00:00 79 mm[Hg] [facility] Heart rate 2023-04-17 16:00:00 80 /min [facility] Body temperature 2023-04-17 16:00:00 36.39 Jenny [facility] Respiratory rate 2023-04-17 16:00:00 16 /min [facility] Body height 2023-04-17 16:00:00 167.6 cm [facility] Body weight 2023-04-17 16:00:00 91.627 kg [facility] BMI 2023-04-17 16:00:00 32.60 kg/m2 [facility] Oxygen saturation in 2023-04-17 16:00:00 99 /min [facility] Arterial blood by [facility] Pulse oximetry Branch Systolic blood 2023-04-12 22:00:00 126 mm[Hg] [facility] Diastolic blood 2023-04-12 22:00:00 67 mm[Hg] [facility] Heart rate 2023-04-12 22:00:00 72 /min [facility] Respiratory rate 2023-04-12 22:00:00 18 /min [facility] Oxygen saturation in 2023-04-12 22:00:00 98 /min [facility] by [place] [facility] Pulse oximetry [facility] Body temperature 2023-04-12 20:47:00 36.28 Jenny [facility] Body height 2023-04-05 01:24:00 167.6 cm [facility] Body weight 2023-04-05 01:24:00 95.255 kg [facility] BMI 2023-04-05 01:24:00 33.89 kg/m2 [facility] Body height 2023-04-04 18:07:00 167.6 cm [facility] Body weight 2023-04-04 18:07:00 95.255 kg [facility] BMI 2023-04-04 18:07:00 33.89 kg/m2 [facility] Systolic blood 2023-03-30 07:45:26 152 mm[Hg] [facility] Diastolic blood 2023-03-30 07:45:26 81 mm[Hg] Unive rsity [facility] Heart rate 2023-03-30 07:45:26 76 /min [facility] Body temperature 2023-03-30 07:45:26 37.11 Jenny [facility] Respiratory rate 2023-03-30 07:45:26 19 /min [facility] Oxygen saturation in 2023-03-30 07:45:26 98 /min [facility] blood by [place] [employer] pur[facility] Pulse oximetry Branch Body weight 2023-03-30 06:41:00 95.255 kg [facility] BMI 2023-03-30 06:41:00 33.89 kg/m2 [facility] Systolic blood 2023-03-30 05:35:00 140 mm[Hg] [facility] Diastolic blood 2023-03-30 05:35:00 99 mm[Hg] [facility]ity [facility] Heart rate 2023-03-30 05:35:00 72 /min [facility] Respiratory rate 2023-03-30 05:35:00 14 /min [facility] Oxygen saturation in 2023-03-30 05:35:00 94 /min [facility] by [place] [employer] [facility] Pulse oximetry Branch Body temperature 2023-03-30 00:40:00 36.83 Jenny [facility] Body height 2023-03-30 00:40:00 167.6 cm [facility] Body weight 2023-03-30 00:40:00 95.618 kg [facility] BMI 2023-03-30 00:40:00 34.02 kg/m2 [facility] of [facility] Systolic blood 2023-03-23 20:54:00 115 mm[Hg] [facility] Diastolic blood 2023-03-23 20:54:00 66 mm[Hg] Unive rsity of pressure [facility] Heart rate 2023-03-23 20:54:00 76 /min [facility] Body height 2023-03-23 20:54:00 167.6 cm [facility] [place] [facility] [place] Body weight 2023-03-23 20:54:00 97.977 kg [facility] of [facility] BMI 2023-03-23 20:54:00 34.86 kg/m2 [facility] of [facility] Oxygen saturation in 2023-03-23 20:54:00 97 /min [facility] Arterial blood by [facility] Pulse oximetry Branch Body weight 2023-03-20 21:15:00 96.752 kg [facility] BMI 2023-03-20 21:15:00 34.43 kg/m2 [facility] [place] [facility] [place] Body weight 2023-03-12 18:08:00 98.34 kg [facility] BMI 2023-03-12 18:08:00 34.99 kg/m2 [facility] of [facility] Systolic blood 2023-03-07 13:34:00 134 mm[Hg] Univer sity of pressure [facility] Diastolic blood 2023-03-07 13:34:00 76 mm[Hg] Unive rsity of pressure [facility] Heart rate 2023-03-07 13:34:00 67 /min [facility] Body temperature 2023-03-07 13:34:00 36.5 Jenny [facility] Respiratory rate 2023-03-07 13:34:00 18 /min [facility] of [facility] Body height 2023-03-07 13:34:00 167.6 cm [facility]i [facility] of [facility] Body weight 2023-03-07 13:34:00 99.519 kg [facility] BMI 2023-03-07 13:34:00 35.41 kg/m2 [facility] Oxygen saturation in 2023-03-07 13:34:00 96 /min [facility] Arterial blood by [facility] purvi Pulse oximetry Branch Heart rate 2023-03-01 00:55:00 68 /min [facility] Body temperature 2023-03-01 00:55:00 35.94 Jenny [facility] Respiratory rate 2023-03-01 00:55:00 23 /min [facility] Oxygen saturation in 2023-03-01 00:55:00 98 /min [facility] Arterial blood by [facility] Pulse oximetry Branch Systolic blood 2023-03-01 00:30:00 163 mm[Hg] [facility] Diastolic blood 2023-03-01 00:30:00 78 mm[Hg] [facility]ive rsity [facility] Body height 2023-02-28 19:27:00 167.6 cm [facility] Body weight 2023-02-28 19:27:00 95.255 kg [facility] BMI 2023-02-28 19:27:00 33.89 kg/m2 [facility] Body height 2023-02-19 18:53:00 167.6 cm [facility] Body weight 2023-02-19 18:53:00 95.618 kg [facility] BMI 2023-02-19 18:53:00 34.02 kg/m2 [facility] Systolic blood 2023-02-19 15:13:00 140 mm[Hg] [facility] Diastolic blood 2023-02-19 15:13:00 80 mm[Hg] [facility] Heart rate 2023-02-19 15:12:00 69 /min [facility] Respiratory rate 2023-02-19 15:12:00 18 /min [facility] Body height 2023-02-19 15:12:00 167.6 cm [facility] Body weight 2023-02-19 15:12:00 95.709 kg [facility] BMI 2023-02-19 15:12:00 34.06 kg/m2 [facility] Oxygen saturation in 2023-02-19 15:12:00 98 /min [facility] blood by [place] [employer] [facility] Pulse oximetry Branch Systolic blood 2023-02-16 02:00:00 140 mm[Hg] [facility] Diastolic blood 2023-02-16 02:00:00 75 mm[Hg] [facility] Heart rate 2023-02-16 02:00:00 64 /min [facility] Respiratory rate 2023-02-16 02:00:00 17 /min [facility] Oxygen saturation in 2023-02-16 02:00:00 98 /min [facility] blood by [place] [employer] [facility] Pulse oximetry Branch Body temperature 2023-02-15 21:18:00 36.61 Jenny [facility] Body height 2023-02-15 21:18:00 167.6 cm [facility] Body weight 2023-02-15 21:18:00 95.255 kg [facility] BMI 2023-02-15 21:18:00 33.89 kg/m2 [facility] Systolic blood 2022-12-05 18:41:00 125 mm[Hg] [facility] Diastolic blood 2022-12-05 18:41:00 75 mm[Hg] [facility]ive rs[facility] Heart rate 2022-12-05 18:41:00 93 /min [facility] Body temperature 2022-12-05 18:41:00 36.89 Jenny [facility] Respiratory rate 2022-12-05 18:41:00 16 /min [facility] Body height 2022-12-05 18:41:00 165.1 cm [facility] Body weight 2022-12-05 18:41:00 96.163 kg [facility] BMI 2022-12-05 18:41:00 35.28 kg/m2 [facility] Oxygen saturation in 2022-12-05 18:41:00 97 /min [facility] by [place] [employer] [facility] Pulse oximetry Branch Systolic blood 2022-11-22 22:16:00 127 mm[Hg] [facility] Diastolic blood 2022-11-22 22:16:00 80 mm[Hg] [facility] Heart rate 2022-11-22 22:16:00 88 /min [facility] of [facility] Body temperature 2022-11-22 22:16:00 37.61 Jenny [facility] Respiratory rate 2022-11-22 22:16:00 18 /min [facility] Body height 2022-11-22 22:16:00 165.1 cm [facility] Body weight 2022-11-22 22:16:00 95.255 kg [facility] of [facility] BMI 2022-11-22 22:16:00 34.95 kg/m2 [facility] of [facility] Oxygen saturation in 2022-11-22 22:16:00 97 /min [facility] Arterial blood by [place] [employer] [facility] Pulse oximetry Branch Systolic blood 2022-11-02 15:29:00 104 mm[Hg] [facility] Diastolic blood 2022-11-02 15:29:00 58 mm[Hg] Unive rsity of pressure [facility] Heart rate 2022-11-02 15:29:00 77 /min [facility] of [facility] Body temperature 2022-11-02 15:29:00 36.56 Jenny [facility] Body height 2022-11-02 15:29:00 165.1 cm [facility] Body weight 2022-11-02 15:29:00 95.482 kg [facility] BMI 2022-11-02 15:29:00 35.03 kg/m2 [facility] Oxygen saturation in 2022-11-02 15:29:00 95 /min [facility] blood by [place] [employer] [facility] Pulse oximetry Branch Systolic blood 2022-09-24 20:40:00 128 mm[Hg] [facility] Diastolic blood 2022-09-24 20:40:00 82 mm[Hg] [facility]ive [facility]ity [facility] Heart rate 2022-09-24 20:40:00 83 /min [facility] Respiratory rate 2022-09-24 20:40:00 16 /min [facility] Oxygen saturation in 2022-09-24 20:40:00 98 /min [facility] Arterial blood by [facility] Pulse oximetry [place] Body temperature 2022-09-24 18:34:00 37 Jenny [facility] Body height 2022-09-24 18:34:00 165.1 cm Universi ty of [facility] Body weight 2022-09-24 18:34:00 96.616 kg Universi ty [facility] BMI 2022-09-24 18:34:00 35.45 kg/m2 Universi ty [facility] height 2022-09-13 08:40:00 65 [in_i] [facility] weight 2022-09-13 08:40:00 209.0 [lb_av] [facility] temperature 2022-09-13 08:40:00 97.1 [degF] [facility] bmi 2022-09-13 08:40:00 34.78 kg/m2 [facility] oximetry 2022-09-13 08:40:00 97 % [facility] respiratory rate 2022-09-13 08:40:00 17 /min Comm on [facility] blood pressure 2022-09-13 08:40:00 129 mm[Hg] [facility] - systolic [facility] blood pressure 2022-09-13 08:40:00 63 mm[Hg] Common [facility] - diastolic [facility] height 2022-08-18 08:50:00 65 [in_i] [facility] weight 2022-08-18 08:50:00 219.8 [lb_av] [facility] temperature 2022-08-18 08:50:00 97.9 [degF] [facility] bmi 2022-08-18 08:50:00 36.57 kg/m2 [facility] oximetry 2022-08-18 08:50:00 97 % [facility] respiratory rate 2022-08-18 08:50:00 17 /min Comm on [facility] blood pressure 2022-08-18 08:50:00 117 mm[Hg] Common [facility] - systolic [facility] blood pressure 2022-08-18 08:50:00 64 mm[Hg] Common [facility] - diastolic [facility] height 2022-07-17 09:40:00 65 [in_i] Common [facility] weight 2022-07-17 09:40:00 211.6 [lb_av] [facility] temperature 2022-07-17 09:40:00 97.0 [degF] [facility] bmi 2022-07-17 09:40:00 35.21 kg/m2 [facility] oximetry 2022-07-17 09:40:00 96 % [facility] respiratory rate 2022-07-17 09:40:00 17 /min Comm on [facility] blood pressure 2022-07-17 09:40:00 132 mm[Hg] Common [facility] - systolic [facility] blood pressure 2022-07-17 09:40:00 78 mm[Hg] Common [facility] diastolic [facility] height 2022-06-14 09:20:00 65 [in_i] Common [facility] weight 2022-06-14 09:20:00 208.2 [lb_av] [facility] temperature 2022-06-14 09:20:00 97.4 [degF] [facility] bmi 2022-06-14 09:20:00 34.64 kg/m2 [facility] oximetry 2022-06-14 09:20:00 96 % [facility] respiratory rate 2022-06-14 09:20:00 17 /min Comm on [facility] blood pressure 2022-06-14 09:20:00 127 mm[Hg] Common [facility] - systolic [facility] blood pressure 2022-06-14 09:20:00 70 mm[Hg] [facility] height 2022-06-14 09:30:00 65 [in_i] Common [facility] weight 2022-06-14 09:30:00 208.2 [lb_av] Common [facility] temperature 2022-06-14 09:30:00 97.4 [degF] Common S pirit [facility] bmi 2022-06-14 09:30:00 34.64 kg/m2 [facility] oximetry 2022-06-14 09:30:00 96 % Common [facility] respiratory rate 2022-06-14 09:30:00 17 /min Comm on [facility] blood pressure 2022-06-14 09:30:00 127 mm[Hg] Common [facility] - systolic [facility] blood pressure 2022-06-14 09:30:00 70 mm[Hg] Common [facility] - diastolic [facility] height 2022-05-29 13:00:00 65 [in_i] Common [facility] weight 2022-05-29 13:00:00 208.8 [lb_av] [facility] temperature 2022-05-29 13:00:00 97.3 [degF] Common S pirit [facility] bmi 2022-05-29 13:00:00 34.74 kg/m2 [facility] 2022-05-29 13:00:00 98 % [facility] respiratory rate 2022-05-29 13:00:00 16 /min Comm on [facility] blood pressure 2022-05-29 13:00:00 120 mm[Hg] Common [facility] - systolic [facility] blood pressure 2022-05-29 13:00:00 60 mm[Hg] Common [facility] - diastolic [facility] Respiratory rate 2022-03-06 13:02:00 14 /min Doreen guzman [facility] Body height 2022-03-06 13:02:00 165.1 cm Jada guzmanbokostas Body weight 2022-03-06 13:02:00 97.16 kg Jada guzmanbold BMI 2022-03-06 13:02:00 35.64 kg/m2 Jada guzmanbokostas Oxygen saturation in 2022-03-06 13:02:00 96 /min Jada Hicks Arterial blood by Pulse oximetry Systolic blood 2022-03-06 13:02:00 110 mm[Hg] Jada Seybold pressure Diastolic blood 2022-03-06 13:02:00 63 mm[Hg] Kelse y Seybold pressure Heart rate 2022-03-06 13:02:00 72 /min Jada guzmanbokostas Body temperature 2022-03-06 13:02:00 37.11 Jenny Doreen ey Seybold Systolic blood 2022-02-03 13:19:00 98 mm[Hg] Jada Seybold pressure Diastolic blood 2022-02-03 13:19:00 60 mm[Hg] Kelse y Seybold pressure Heart rate 2022-02-03 13:19:00 87 /min Jada guzmanbokostas Body temperature 2022-02-03 13:19:00 36.56 Jenny Doreen guzman Seybold Respiratory rate 2022-02-03 13:19:00 15 /min Doreen Hicks Body height 2022-02-03 13:19:00 165.1 cm Jada guzmanbokostas Body weight 2022-02-03 13:19:00 98.884 kg Jada guzmanbold BMI 2022-02-03 13:19:00 36.28 kg/m2 Jada guzmanbold height 2021-10-06 13:10:00 65 [in_i] [facility] weight 2021-10-06 13:10:00 215 [lb_av] [facility] temperature 2021-10-06 13:10:00 97.5 [degF] [facility] bmi 2021-10-06 13:10:00 35.77 kg/m2 Common S pirit - [facility] blood pressure 2021-10-06 13:10:00 128 mm[Hg] [facility] - systolic [facility] blood pressure 2021-10-06 13:10:00 70 mm[Hg] Common [facility] - diastolic [facility] Systolic blood 2021-07-15 14:32:00 125 mm[Hg] Univer sity of pressure [facility] Diastolic blood 2021-07-15 14:32:00 77 mm[Hg] Unive rsity of [facility] Heart rate 2021-07-15 14:32:00 83 /min Universi ty [facility] Respiratory rate 2021-07-15 14:32:00 22 /min [facility] Body height 2021-07-15 14:32:00 166.4 cm [facility] Body weight 2021-07-15 14:32:00 96.934 kg [facility] BMI 2021-07-15 14:32:00 35.02 kg/m2 [facility] Oxygen saturation in 2021-07-15 14:32:00 95 /min [facility] Arterial blood by [facility] Pulse oximetry Branch height 2021-07-06 16:10:00 65 [in_i] Common [facility] weight 2021-07-06 16:10:00 212.8 [lb_av] Common [facility] temperature 2021-07-06 16:10:00 97.3 [degF] Common [facility] bmi 2021-07-06 16:10:00 35.41 kg/m2 Common [facility] oximetry 2021-07-06 16:10:00 95 % Common [facility] respiratory rate 2021-07-06 16:10:00 18 /min Comm on [facility] blood pressure 2021-07-06 16:10:00 129 mm[Hg] [facility] - systolic [facility] blood pressure 2021-07-06 16:10:00 72 mm[Hg] [facility] - diastolic [facility] Procedures Procedure Date / Time Performing Clinician Source Performed REFERRAL- 2023-07-09 05:01:00 Doctor Unassigned, [facility] REQUEST/RESPONSE [place] [facility] EXTERNAL PROVIDER RECORDS 2023-06-26 05:01:00 Doctor Shant, [facility] [place] [facility] PATIENT QUESTIONNAIRE 2023-06-05 05:01:00 Doctor Giftyssmarcus, [facility] Name Medical Branch BASIC METABOLIC PANEL 2023-04-21 19:45:00 [facility] K, CL, CO2, GLUCOSE, Medica l Branch BUN, CREATININE, CA) BASIC METABOLIC PANEL 2023-04-21 19:45:00 Kiel [facility] (NA, K, CL, CO2, GLUCOSE, Medica l Branch BUN, CREATININE, CA) CBC WITHOUT DIFF 2023-04-21 19:44:00 Kiel [facility] CBC WITHOUT DIFF 2023-04-21 19:44:00 Kiel [facility] POCT GLUCOSE (AUTOMATED) 2023-04-21 17:51:00 Makishima, Edgar [facility] POCT GLUCOSE (AUTOMATED) 2023-04-21 17:51:00 Makishima, Edgar [facility] POCT GLUCOSE (AUTOMATED) 2023-04-21 13:55:00 [facility]) 2023-04-21 13:55:00 Makishima, Edgar [facility] POCT GLUCOSE (AUTOMATED) 2023-04-21 02:00:00 Makishima, Edgar [facility] POCT GLUCOSE (AUTOMATED) 2023-04-21 02:00:00 Makishima, Edgar [facility] POCT GLUCOSE (AUTOMATED) 2023-04-20 23:15:00 Makishima, Edgar [facility] POCT GLUCOSE (AUTOMATED) 2023-04-20 23:15:00 Makishima, Edgar [facility] [place] TISSUE 2023-04-20 19:47:00 Edgar Valle [facility] CULTURE(AEROBIC/ANAEROBIC Medica l Branch ) FUNGUS (ROUTINE) CULTURE 2023-04-20 19:47:00 Edgar Valle [facility] TISSUE 2023-04-20 19:47:00 Edgar Valle [facility] CULTURE(AEROBIC/ANAEROBIC Medica l Branch ) TISSUE 2023-04-20 19:24:00 Edgar Valle [facility] CULTURE(AEROBIC/ANAEROBIC Medica l Branch ) FUNGUS (ROUTINE) CULTURE 2023-04-20 19:24:00 Edgar Valle [facility] TISSUE 2023-04-20 19:24:00 Edgar Valle [facility] CULTURE(AEROBIC/ANAEROBIC Medica l Branch ) MASTOIDECTOMY 2023-04-20 16:52:00 Edgar Valle [facility] MYRINGOTOMY WITH TUBE 2023-04-20 16:52:[address] [facility] INSERTION [facility] POCT GLUCOSE (AUTOMATED) 2023-04-20 15:07:00 Edgar Valle [facility] POCT GLUCOSE (AUTOMATED) 2023-04-20 15:07:00 Edgar Valle [facility] ASSIGNMENT OF BENEFITS 2023-04-20 13:48:54 Doctor Shant, [facility] [place] PATIENT QUESTIONNAIRE 2023-04-17 05:01:00 Doctor Shant, [facility] [place] HOME HEALTH - OTHER 2023-04-16 05:01:00 Doctor Shant, [facility] Name Medical Branch INSURANCE CORRESPONDENCE 2023-04-13 05:01:00 Doctor Bran [facility] Name Medical [place] INSURANCE CORRESPONDENCE 2023-04-13 05:01:00 Doctor Bran [facility] POCT GLUCOSE (AUTOMATED) 2023-04-12 23:07:00 Edgar Valle [facility] POCT GLUCOSE (AUTOMATED) 2023-04-12 20:48:00 Edgar Valle [facility] POCT GLUCOSE (AUTOMATED) 2023-04-12 16:56:00 Jean[facility]trandEdgar [facility] 2023-04-12 15:29:00 Jannette Andrade [place] [facility] POCT GLUCOSE (AUTOMATED) 2023-04-12 13:15:00 [facility] PHOSPHORUS 2023-04-12 08:53:[address] [facility] MAGNESIUM 2023-04-12 08:53:[address] [facility] BASIC METABOLIC PANEL 2023-04-12 08:53:00 Matthias [facility] (NA, K, CL, CO2, GLUCOSE, [facility] Medica l Branch BUN, CREATININE, CA) CBC WITH DIFF 2023-04-12 08:53:[address] [facility] POCT GLUCOSE (AUTOMATED) 2023-04-12 01:38:00 Mathieu Valleo U [facility] POCT GLUCOSE (AUTOMATED) 2023-04-12 00:11:00 [facility] VANCOM[facility]OUGH 2023-04-11 23:40:00 [facility]) 2023-04-11 21:40:00 [facility]trandmaMathieuo [facility] POCT GLUCOSE (AUTOMATED) 2023-04-11 17:43:00 MakbertrandmaMathieuo [facility] POCT GLUCOSE (AUTOMATED) 2023-04-11 12:13:00 Mak[facility]trandmaMathieuo [facility] PHOSPHORUS 2023-04-11 11:20:[address] [facility] MAGNESIUM 2023-04-11 11:20:[address] [facility] BASIC METABOLIC PANEL 2023-04-11 11:20:00 Matthias [facility] (NA, K, CL, CO2, GLUCOSE, [facility] BUN, CREATININE, CA) CBC WITH DIFF 2023-04-11 11:20:[address] [facility] POCT GLUCOSE (AUTOMATED) 2023-04-11 01:43:00 [facility] PO[facility]UCOSE (AUTOMATED) 2023-04-10 20:27:00 Makishima, Edgar U [facility]iversity [facility] XR CHEST 1 VW 2023-04-10 20:00:00 [facility] POCT GLUCOSE (AUTOMATED) 2023-04-10 17:13:00 Makishima, Edgar [facility] VANCOMYCIN TROUGH 2023-04-10 13:48:00 Andre Matthews [facility] POCT GLUCOSE (AUTOMATED) 2023-04-10 12:08:00 [facility]ima, [facility] PO[facility]SE (AUTOMATED) 2023-04-10 01:46:00 [facility]ima, [facility] PO[facility] GLUCOSE (AUTOMATED) 2023-04-09 22:22:00 [facility] PO[facility]UCOSE (AUTOMATED) 2023-04-09 21:35:00 Makishima, Edgar [facility] NM BONE WHOLE BODY 2023-04-09 17:46:00 Aleja Zully [facility] POCT GLUCOSE (AUTOMATED) 2023-04-09 13:19:00 [facility] POCT GLUCOSE (AUTOMATED) 2023-04-09 01:53:00 Makishima, Edgar [facility] VANCOMYCIN TROUGH 2023-04-08 22:41:00 Clemente Cruz [facility] POCT GLUCOSE (AUTOMATED) 2023-04-08 21:29:00 [facility], [facility] POCT GLUCOSE (AUTOMATED) 2023-04-08 16:56:00 Makishima, Edgar [facility] POCT GLUCOSE (AUTOMATED) 2023-04-08 12:55:00 MakMathieu garciao U [facility] CBC WITHOUT DIFF 2023-04-08 09:20:00 Joseluis Benites [facility] POCT GLUCOSE (AUTOMATED) 2023-04-08 01:42:00 Mathieu Valleo [facility] POCT GLUCOSE (AUTOMATED) 2023-04-07 21:42:00 MakMathieu garciao [facility] VANCOMYCIN TROUGH 2023-04-07 17:46:00 José Manuel Carter [facility] POCT GLUCOSE (AUTOMATED) 2023-04-07 16:56:00 MakMathieu garciao [facility] POCT GLUCOSE (AUTOMATED) 2023-04-07 12:30:00 Jean-PierrebertrandMathieu stewarto U [facility] MAGNESIUM 2023-04-07 09:30:[address] [facility] BASIC METABOLIC PANEL 2023-04-07 09:30:00 Matthias, [facility] (NA, K, CL, CO2, GLUCOSE, [facility] BUN, CREATININE, CA) CBC WITH DIFF 2023-04-07 09:30:[address] [facility] POCT GLUCOSE (AUTOMATED) 2023-04-07 01:28:00 Mathieu Valleo [facility] [place] [facility] PO[facility] GLUCOSE (AUTOMATED) 2023-04-06 22:35:00 Makbertrandma Edgar [facility] POCT GLUCOSE (AUTOMATED) 2023-04-06 17:40:00 Makbertrandma, [facility] POCT GLUCOSE (AUTOMATED) 2023-04-06 14:15:00 Tori, [facility] PHOSPHORUS 2023-04-06 10:26:[address] [facility] MAGNESIUM 2023-04-06 10:26:[address] [facility] C-REACTIVE PROTEIN 2023-04-06 10:26:00 Gavin Worthington [facility] BASIC METABOLIC PANEL 2023-04-06 10:26:00 Matthias [facility] (NA, K, CL, CO2, GLUCOSE, Donita Medica l Branch BUN, CREATININE, CA) SEDIMENTATION RATE 2023-04-06 10:26:00 [facility] WITH DIFF 2023-04-06 10:26:00 [facility]ATED) 2023-04-06 01:58:00 Mathieu Valleo [facility] POCT GLUCOSE (AUTOMATED) 2023-04-05 23:52:00 Mathieu Valleo [facility] POCT GLUCOSE (AUTOMATED) 2023-04-05 19:42:00 Mathieu Valleo [facility] BASIC METABOLIC PANEL 2023-04-05 14:28:00 Zully Masterson [facility] (NA, K, CL, CO2, GLUCOSE, Medica l Branch BUN, CREATININE, CA) COMP. METABOLIC PANEL 2023-04-05 14:28:00 Matthias [facility] ([id number]) [facility] LIPID PANEL ([id number])(TOTAL 2023-04-05 14:28:00 Matthias [facility] CHOLESTEROL, [facility] TRIGLYCERIDES, HDL) POCT GLUCOSE (AUTOMATED) 2023-04-05 13:01:00 Edgar Valle [facility] CBC WITH DIFF 2023-04-05 02:32:00 Andre Matthews [facility] GLYCOSYLATED HEMOGLOBIN 2023-04-05 02:32:00 [facility] (A[facility] POCT GLUCOSE (AUTOMATED) 2023-04-05 01:50:00 Edgar Valle [facility] CT TEMPORAL BONES W 2023-03-30 03:30:29 Олег Padron [facility] COMP. METABOLIC PANEL 2023-03-30 02:48:00 Олег Padron [facility] ([id number]) Medical Branch CBC WITH DIFF 2023-03-30 01:20:00 Олег Padron [facility] NOTICE OF PRIVACY 2023-03-30 00:35:04 Doctor Shant, [facility] PRACTICES [place] [facility] CONSENT/REFUSAL FOR 2023-03-30 00:34:27 Doctor Shant [facility] miguel [facility] DIAGNOSIS AND TREATMENT [place] [facility] [place] EKG-12 LEAD 2023-03-01 00:55:51 Nanci Cervantes [facility] POTASSIUM SERUM 2023-02-28 23:27:00 Nanci Cervantes [facility] CT ANGIOGRAM HEAD 2023-02-28 21:17:50 Helen [facility] CT ANGIOGRAM NECK 2023-02-28 21:17:50 Helen [facility] CT HEAD WO CONTRAST 2023-02-28 21:12:52 Nanci Cervantes [facility] LIPASE 2023-02-28 19:51:00 Nanci Cervantes [facility] TROPONIN I 2023-02-28 19:51:00 [facility] COMP. METABOLIC PANEL 2023-02-28 19:51:00 Nanci Cervantes [facility] ([id number]) Medical Branch CBC WITH DIFF 2023-02-28 19:51:00 Nanci Cervantes [facility] PROTHROMBIN TIME / INR 2023-02-28 19:51:[address] [facility] CONSENT/REFUSAL FOR 2023-02-28 19:21:31 Doctor Unaneal [facility] miguel [facility] DIAGNOSIS AND TREATMENT [place] [facility] REFERRAL- 2023-02-22 05:01:00 Doctor Shant [facility] REQUEST/RESPONSE [place] [facility] POTASSIUM SERUM 2023-02-16 00:42:00 Marcus Torres [facility] EKG-12 LEAD 2023-02-16 00:00:00 Marcus Torres [facility] CT ANGIOGRAM HEAD 2023-02-15 23:11:00 Marcus Torres [facility] CT ANGIOGRAM NECK 2023-02-15 23:11:00 Marcus Torres [facility] CT HEAD WO CONTRAST 2023-02-15 23:10:38 Marcus Torres [facility] TROPONIN I 2023-02-15 21:45:00 Marcus Torres [facility] BASIC METABOLIC PANEL 2023-02-15 21:45:00 Marcus Torres [facility] (NA, K, CL, CO2, GLUCOSE, Medica l Branch BUN, CREATININE, CA) CBC WITH DIFF 2023-02-15 21:45:00 Marcus Torres [facility] CONSENT/REFUSAL FOR 2023-02-15 21:10:54 Doctor Shant, [facility] DIAGNOSIS AND TREATMENT [place] [facility] PATIENT FINANCIAL 2022-12-05 18:34:34 Doctor Shant, [facility] POLICY [place] [facility] CONSENT/REFUSAL FOR 2022-11-22 22:12:42 Doctor Shant [facility] DIAGNOSIS AND TREATMENT [place] [facility] HB ECG ROUTINE & RHYTHM 2022-11-02 15:31:[address] [facility] STRIP Medical Branch REFERRAL- 2022-10-18 06:01:00 Doctor Shant, [facility] REQUEST/RESPONSE [place] [facility] CT MAXILLOFACIAL/MANDIBLE 2022-09-24 19:41:50 Lizz Hill [facility] W CONTRAST [facility] COMP. METABOLIC PANEL 2022-09-24 18:58:[address] [facility] ([id number]) [facility] CBC WITH DIFF 2022-09-24 18:58:00 Lizz Hill [facility] CONSENT/REFUSAL FOR 2022-09-24 18:16:01 Doctor Bran [facility] DIAGNOSIS AND TREATMENT [place] [facility] INSURANCE CORRESPONDENCE 2022-05-25 05:01:00 Doctor Bran [facility] [place] [facility] AUTHORIZATION FOR RELEASE 2022-03-27 05:01:00 Doctor Bran, [facility] Name [facility] [place] AUTHORIZATION FOR RELEASE 2022-02-03 05:01:00 Doctor Unassigned, [facility] [place] MEDICATION CORRESPONDENCE 2021-10-28 06:01:00 Doctor Unassigned, [facility] Name [facility] [place] HB ECG ROUTINE & RHYTHM 2021-07-15 14:26:50 Tiffanie Turner [facility] Encounters Start End Encounter Admission Attending Care Care Encounter Source Date/Time Date/Time Type Type Clinicians Facility Department ID 2023-07-13 Outpatient Gabriel, STLMLC STLMLC [id number] Common 10:01:00 Benjamín [id number] [facility] 2023-07-12 Outpatient Gabriel, STLMLC STLMLC [id number] Common 12:51:00 Benjamín 77531 [facility] 2023-07-10 Outpatient Gabriel, STLMLC STLMLC [id number] Common 14:29:00 Benjamín 83635 [facility] 2023-04-09 Outpatient Gabriel, STLMLC STLMLC [id number] Common 15:40:00 Benjamín [id number] [facility] 2023-03-14 Outpatient Gabriel, STLMLC STLMLC [id number] Common 14:16:00 Benjamín 95982 [facility] 2022-12-25 Outpatient Gabriel, STLMLC STLMLC [id number] Common 16:21:00 Benjamín [id number] [facility] 2022-11-29 Outpatient Gabriel, STLMLC STLMLC [id number] Common 13:54:00 Benjamín [id number] [facility] 2022-10-23 Outpatient Gabriel, STLMLC STLMLC [id number] Common 10:57:01 Benjamín [id number] [facility] 2022-09-11 Outpatient Gabriel, STLMLC STLMLC [id number] Common 12:57:00 Benjamín [id number] [facility] 2022-08-16 Outpatient Gabriel, STLMLC STLMLC [id number] Common 09:37:00 Benjamín 91583 [facility] 2022-07-14 Outpatient Gabriel, STLMLC STLC Common 14:55:00 Benjamín [facility] 2022-02-22 Outpatient Gabriel, STLMLC STLC Common 15:42:00 Benjamín [facility] 2022-01-09 Outpatient Gabriel, STLMLC STLMLC Common 11:30:01 Benjamín [facility] 2021-10-26 Outpatient Gabriel, STLMLC STLC Common 14:36:49 Benjamín [facility] 2021-10-26 Outpatient Gabriel, STLMLC STLC Common 14:31:27 Benjamín [facility] 2021-10-26 Outpatient Gabriel, STLMLC STLC Common 14:28:57 Benjamín [facility] 2021-10-26 Outpatient Gabriel, STLMLC STLC Common 13:53:50 Benjamín [id number] [facility] 2021-10-26 Outpatient Gabriel, STLMLC STLC Common 13:08:54 Benjamín [id number] [facility] 2021-10-26 Outpatient Gabriel, STLMLC STLC Common 12:43:01 Benjamín [id number] [facility] 2021-10-26 Outpatient Gabriel, STLMLC STLC Common 12:41:05 Benjamín [id number] [facility] 2021-10-26 Outpatient Gabriel, STLMLC STLC Common 12:19:25 Benjamín [id number] [facility] 2021-10-26 Outpatient Gabriel, STLMLC STLC Common 12:15:57 Benjamín 03078 [facility] 2021-10-26 Outpatient Gabriel, STLMLC STLC [id number] Common 12:01:29 Benjamín [id number] [facility] 2021-10-26 Outpatient Gabriel, STLMLC STLC [id number] Common 11:29:48 Benjamín [id number] [facility] 2021-10-26 Outpatient Gabriel, STLMLC STLC [id number] Common 11:25:26 Benjamín 80597 [facility] 2021-10-26 Outpatient Gabriel, STLMLC STLC [id number] Common 11:21:12 Benjamín [id number] [facility] 2021-10-26 Outpatient [facility] [id number] Common 11:17:54 Benjamín 15032 [facility] 2021-10-26 Outpatient Gabriel[facility] [id number] Common 11:17:13 Benjamín 02157 [facility] 2021-10-26 Outpatient Gabriel, [facility] [id number] Common 11:15:45 Benjamín 10078 [facility] 2021-10-26 Outpatient Gabriel, [facility] [id number] Common 10:58:12 Benjamín 91336 [facility] 2021-10-26 Outpatient Gabriel[facility] [id number] Common 10:57:45 Benjamín 81897 [facility] 2023-07-18 2023-07-18 Refill Clemente Cruz [facility]ERS[facility] 1.2.840.114 [id number] Univers 00:00:00 00:00:00 [facility] 350.1.13.10 ity [facility] [phone] [address] Branch 2023-07-17 2023-07-17 Outpatient R [facility] [id number] Univers 16:30:00 16:30:00 ity of [facility] 2023-07-10 2023-07-10 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 [facility] UNIVERSIT 1.2.840.114 1 [id number] Univers 15:30:00 15:45:00 Visit Roseann Bradley Y HEALTH 350.1.13.10 ity of [place] [id number] [address] 2023-07-10 2023-07-10 Outpatient R TORI [facility] [id number] Univers 14:45:00 15:08:27 EDGAR ity of [facility] 2023-07-09 2023-07-09 Orders Doctor ARTURO 1.2.840.114 [id number] Univers 00:00:00 00:00:00 Only Unassigned, GLENDA 350.1.13.10 ity of [place] [facility] 4.2.7.2.686 [place] as [phone] [address] 2023-06-29 2023-06-29 [facility]ill [facility] 1.2.840.114 [id number] Univers 00:00:00 00:00:00 Tiffanie SARABIA 350.1.13.10 ity of [facility] [place] [id number] [facility] NAL [address] [place] [address] 2023-06-26 2023-06-26 Orders Doctor ARTURO 1.2.840.114 [id number] Univers 00:00:00 00:00:00 Only Unassigned, GLENDA 350.1.13.10 ity of [place] [facility] 4.2.7.2.686 Claude as [id number] [address] 2023-06-25 2023-06-25 Aracelis [facility] 1.2.381.386 [id number] Univers 00:00:00 00:00:00 Jacobjun ANGLECELI 350.1.13.10 ity of [facility] [place] [id number] Il dical NAL 9 [facility] 2023-06-12 2023-06-12 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 [facility] UNIVERSIT 1.2.840.114 1 [id number] Univers 16:00:00 16:15:00 Visit Hipolito Boothe Y HEALTH 350.1.13.10 it[place] [id number] [address] 2023-06-12 2023-06-12 Office AnthonyClementeremy Garcia [facility]ERSIT 1.2.840.114 [id number] Univers 15:00:00 16:00:00 Visit Hipolito Boothe Y HEALTH 350.1.13.10 ity of [place] [id number] [facility] 089 Branch 2023-06-12 2023-06-12 Outpatient R HIPOLITO BOOTHE [facility] [id number] Univers 15:00:00 15:00:00 HIPOLITO BOOTHE ity of [facility] 2023-06-05 2023-06-05 Outpatient JADA RAYMOND [id number] Jada 00:00:00 00:00:00 MARTY alberto 2023-06-05 2023-06-05 Orders Doctor ARTURO 1.2.840.114 [id number] Univers 00:00:00 00:00:00 Only Unassigned, GLENDA 350.1.13.10 ity of [place] [facility] 4.2.7.2.686 Claude as [id number] [facility] 009 Branch 2023-06-01 2023-06-01 [place] [facility] 1.2.840.114 1 [id number] Univers 09:12:14 23:59:00 Encounter Heydi Y HEALTH 350.1.13.10 ity of [place] [id number] [facility] 805 Branch 2023-06-01 2023-06-01 Outpatient Rupa SHEARER [facility] [id number] Univers 09:11:32 09:11:32 HEYDI ity of [facility] 2023-06-01 2023-06-01 [facility] 1.2.840.114 1 [id number] Univers 09:11:32 09:11:32 Encounter Heydi Y HEALTH 350.1.13.10 ity of [place] [id number] [facility] [address] [place] 2023-05-31 2023-05-31 Outpatient JADA RAYMOND [id number] Jada 08:25:00 08:25:00 MARTY alberto 2023-05-22 2023-05-22 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 [facility] UNIVERSIT 1.2.840.114 1 [id number] Univers 14:00:00 14:15:00 Visit Hipolito Boothe HEALTH 350.1.13.10 ity of [place] [id number] [facility] 316 Branch 2023-05-22 2023-05-22 Office Clemente Cruz [facility] 1.2.840.114 [id number] Univers 13:00:00 14:00:00 Visit Hipolito Boothe [facility] 350.1.13.10 ity of CL[place] 4[place] [id number] [facility] 089 Branch 2023-05-22 2023-05-22 Outpatient R GEO HIPOLITO [facility] [id number] Univers 13:00:00 13:00:00 GEO HIPOLITO ity of [facility] 2023-05-14 2023-05-14 Office [facility] 1.2.840.114 [id number] Univers 10:00:00 10:15:00 Visit Edgar RALPH 350.1.13.10 i ty [facility] [place].2.[place] [id number] [facility] 144 Branch 2023-05-14 2023-05-14 Outpatient R TORI [facility] [id number] Univers 10:00:00 10:00:00 EDGAR ity of [facility] 2023-05-09 2023-05-[address] [facility] 1.2.840.114 1 [id number] Univers 00:00:00 00:00:00 EdgarPacerPro 350.1.13.10 it y of [place] [id number] [facility] PRIMARY & 144 Branch SPECIALTY CARE 2023-05-02 2023-05-02 Outpatient R JOHNNY [facility] [id number] Univers 09:20:00 09:20:00 TIFFANIE hogan [facility] 2023-04-30 2023-04-30 Telephone Randy Aldana [facility] 1.2.840.114 [id number] Univers 00:00:00 00:00:00 [facility] AT 350.1.13.10 ity of [facility] 4.2.7.2.[place] [id number] [facility] [address] [place] 2023-04-26 2023-04-26 [facility] [id number] Univers 11:00:00 11:05:30 TIFFANIE hogan [facility] 2023-04-26 2023-04-26 Office [facility] 1.2.840.114 [id number] Univers 11:00:00 11:05:30 Visit Tiffanie SARABIA 350.1.13.10 ity of [place] 4.2.7.2.[place] [id number] [place] [address] 2023-04-26 2023-04-26 Telephone [facility] 1.2.674.090 [id number] Univers 00:00:00 00:00:00 Tiffanie SARABIA 350.1.13.10 ity of [place] 4.[place].2.[place] [id number] [address] 2023-04-23 2023-04-23 Telephone Harvey [facility] [id number] 72602 [facility] 00:00:00 00:00:00 [facility] 2023-04-20 2023-04-21 Outpatient R TORI [facility] VIDA [id number] Univers 09:30:00 17:19:00 EDGAR ity of [facility] 2023-04-20 2023-04-21 Hospital MARQUITA Valle 1.2.840.114 10 [id number] Univers 09:30:00 17:19:00 Encounter Edgar GLENDA 350.1.13.10 [facility] 4.2.7.2.686 [place] [id number] [facility] 091 Branch 2023-04-20 2023-04-20 Surgery MARQUITA Valle 1.2.840.114 104 [id number] Univers 11:19:00 14:48:00 Edgar GLENDA 350.1.13.10 it y of HOSPITAL 4.2.7.2.686 [place] as [id number] [facility] 103 Branch 2023-04-20 2023-04-20 Orders Doctor ARTURO 1.2.840.114 [id number] Univers 00:00:00 00:00:00 Only Unassigned, GLENDA 350.1.13.10 ity of [place] [facility] 4.2.7.2.686 Claude as [id number] [facility] [address] [place] 2023-04-19 2023-04-19 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 Deon, Adc Lab Main [facility] 1.2.8 40.114 [id number] Univers 09:45:00 10:00:00 Visit Osman Hubbard 350.1.13.10 ity of [place].2.[place] [id number] Il dical [facility] 353 [facility] 2023-04-19 2023-04-19 Outpatient R STEVIE [facility] [id number] Univers 09:45:00 09:45:00 OSMAN ity of [facility] 2023-04-19 2023-04-19 Telephone ARTURO Andrade 1.2.131.791 [id number] Univers 00:00:00 00:00:00 Jannette DOSHI 350.1.13.10 i ty [facility] 4.2.7.2.686 [place] as [id number] [facility] [address] [place] 2023-04-19 2023-04-19 Telephone ARTURO [facility] 1.2.840.114 10 [id number] Univers 00:00:00 00:00:00 Bailey DOSHI 350.1.13.10 i ty [facility] 4.2.7.2.686 [place] as [id number] [facility] [address] [place] 2023-04-18 2023-04-18 Telephone ARIAN Andrade 1.2.840.114 10 [id number] Univers 00:00:00 00:00:00 Jannette MEIER 350.1.13.10 ity of [facility] 4.2.7.2.[place] [id number] [place] [address] [place] 2023-04-18 2023-04-18 Patient ARTURO Andrade 1.2.840.114 [id number] Univers 00:00:00 00:00:00 Secure Msg Jannette DOSHI 350.1.13.10 [facility] 4.2.7.2.686 [place] as [id number] [address] 2023-04-17 2023-04-17 Office Erica [facility] 1.2.840.114 10 [id number] Univers 10:00:00 12:00:00 Visit [facility] AT 350.1.13.10 ity of [place] 4.2.[place].2.[place] [id number] [facility] [address] [place] 2023-04-17 2023-04-17 Outpatient R ERICA [facility] [id number] Univers 10:00:00 10:00:00 ity of [facility] 2023-04-17 2023-04-17 Orders Doctor ARTURO 1.2.840.114 [id number] Univers 00:00:00 00:00:00 Only Unassigned, GLENDA 350.1.13.10 ity of [place] [facility] 4.2.7.2.686 Claude as [id number] [address] 2023-04-17 2023-04-17 Telephone Erica [facility] 1.2.840.114 [id number] Univers 00:00:00 00:00:00 [facility] AT 350.1.13.10 ity of [place] 4.2.[place].2.[place] [id number] [facility] [address] [place] 2023-04-17 2023-04-17 Telephone ARIAN Andrade 1.2.840.114 10 [id number] Univers 00:00:00 00:00:00 [facility] 350.1.13.10 ity of [facility] 4.2.7.2.[place] [id number] [address] 2023-04-16 2023-04-16 Telephone Erica [facility] 1.2.840.114 [id number] Univers 00:00:00 00:00:00 Blanquita HEALTH AT 350.1.13.10 ity of [facility] 4.2.7.2.[place] [id number] [facility] [address] [place] 2023-04-16 2023-04-16 Telephone ARTURO [facility] 1.2.840.114 10 [id number] Univers 00:00:00 00:00:00 Bailey Goode GLENDA 350.1.13.10 i ty of HOSPITAL 4.2.7.2.686 [place] as [id number] [facility] 025 Branch 2023-04-16 2023-04-16 Telephone Anders Aldana-Zeny [facility] 1.2.840.114 [id number] Univers 00:00:00 00:00:00 Blanquita HEALTH AT 350.1.13.10 ity of [place] 4.2.7.2.[place] [id number] [facility] [address] [place] 2023-04-16 2023-04-16 Orders Doctor ARTURO 1.2.840.114 [id number] Univers 00:00:00 00:00:00 Only Unassigned, GLENDA 350.1.13.10 ity of [place] [facility] 4.2.7.2.686 Claude as [id number] [facility] 009 [address] 2023-04-13 2023-04-13 Transition BRENT Mathis 1.2.840.114 104 [id number] Univers 00:00:00 00:00:00 of Care Gloriaale ADAMSONY 350.1.13.10 it y of [place] [id number] [facility] [address] 2023-04-04 2023-04-12 [employer] [facility] MARQUITA Valle 1.2.840.114 10 [id number] Univers 18:43:00 19:00:00 Encounter Edgar DOSHI 350.1.13.10 [facility] 4.2.7.2.686 [place] as [id number] [facility] 0[address] 2023-04-10 2023-04-10 Outpatient R JAMES [facility] [id number] Univers 16:30:00 16:30:00 JOSEFINA ity of [facility] 2023-04-04 2023-04-04 Office Tori [facility] 1.2.840.114 104 [id number] Univers 13:00:00 13:15:00 [facility] 350.1.13.10 it y of [place].2.[place] [facility] [id number] [facility] PRIMARY & [address] SPECIALTY CARE 2023-04-04 2023-04-04 Outpatient R TORI [facility] VIDA [id number] Univers 13:00:00 13:00:00 EDGAR siny [facility] 2023-04-02 2023-04-02 Outpatient R ELÍAS DANIEL [facility] [id number] Univers 00:00:00 00:00:00 DANIEL MCKINLEY [facility] 2023-04-02 2023-04-02 Telephone Elías [facility] 1.2.840.114 104 [id number] Univers 00:00:00 00:00:00 [facility] 350.1.13.10 ity of [place] 4.2.7.2.686 Claude as SHIVANI?BLEA [id number] [facility] [address] MEDICAL OFFICE BUILDING 2023-04-02 2023-04-02 Telephone ARIAN Valle 1.2.840.114 [id number] Univers 00:00:00 00:00:00 Edgar Armstrong 350.1.13.10 it y of [facility] 4.2.7.2.686 Claude as BANK [id number] [facility] BLDG. [address] 2023-03-30 2023-03-30 Emergency X VASUT, [facility] ERT [id number] Univers 01:44:00 05:32:00 ОЛЕГ ity [facility] 2023-03-30 2023-03-30 Emergency Bridges, TRAUMA 1.2.840.114 [id number] Univers 01:44:00 05:32:00 Milton VALENTINE 350.1.13.10 it y [place] [id number] [facility] 014 Branch 2023-03-29 2023-03-30 Emergency X VASUT, [facility] ERT [id number] Univers 19:42:00 00:44:00 ОЛЕГ ity of [facility] 2023-03-29 2023-03-30 Emergency VasОлег sage [facility] 1.2.840.1 14 [id number] Univers 19:42:00 00:44:00 Delilah Yusuf 350.1.13.10 ity of [place] 4.2.7.2.686 [place] [facility] [id number] [facility] [address] [place] 2023-03-23 2023-03-23 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 10 ity of [place] 4.2.7.2.686 Claude as SHIVANI?BLEA [id number] [facility] [address] MEDICAL OFFICE [facility] 2023-03-23 2023-03-23 Outpatient R ELÍASDANIEL STEELE [facility] [id number] Univers 15:40:00 16:23:49 [facility] 2023-03-23 Office Elías [facility] 1.2.840.114 [id number] Univers 15:40:00 16:23:49 Visit [facility] [id number] ity of [place] 4.2.7.2.686 Claude as SHIVANI?BLEA [id number] [facility] [address] MEDICAL OFFICE [facility] 2023-03-20 2023-03-20 Outpatient R TORI [facility] [id number] Univers 16:00:00 17:12:28 EDGAR ity [facility] 2023-03-20 2023-03-20 Office ToriARIAN 1.2.840.114 [id number] Univers 16:00:00 17:12:28 Visit Edgar Armstrong 350.1.13.10 it y of [facility] 4.2.7.2.686 Claude as BANK [phone] [facility] BLDG. [address] 2023-03-20 2023-03-20 Outpatient JADA BLANCO [id number] Jada 15:30:00 15:30:00 SIDDHARTHA alberto 2023-03-20 2023-03-20 Patient Doctor ARTURO 1.2.840.114 [id number] Univers 00:00:00 00:00:00 Secure Msg Unassigned, GLENDA 350.1.13.10 ity of [facility] 4.2.7.2.686 Claude as [id number] [facility] [address] 2023-03-12 2023-03-[address] [facility] 1.2.840.114 [id number] Univers 13:00:00 13:30:00 Visit Edgar ROSAS 350.1.13.10 i ty of [facility] [place] [id number] [facility] [address] 2023-03-12 2023-03-12 Outpatient R [facility] [id number] Univers 13:00:00 13:00:00 EDGAR ity [facility] 2023-03-08 2023-03-08 Outpatient [facility] [id number] Univers 10:38:47 23:59:00 PETER ity [facility] 2023-03-08 2023-03-08 Telephone [facility] 1.2.840.114 [id number] Univers 00:00:00 00:00:00 [facility] 350.1.13.10 ity of [place] 4.2.7.2.686 Claude as SHIVANI?BLEA [id number] Il rema LAMB [address] [facility] 2023-03-07 2023-03-07 Outpatient [facility] [id number] Univers 09:00:00 09:33:50 TIFFANIE siny o f [facility] 2023-03-07 2023-03-07 Office [facility] 1.2.840.114 [id number] Univers 09:00:00 09:20:00 Visit Tiffanie SARABIA 350.1.13.10 ity [facility] [place] [id number] Il rema DUFFY 059 [facility] 2023-03-07 2023-03-07 Telephone [facility] 1.2.840.114 1 [id number] Univers 00:00:00 00:00:00 Edgar RUSHTANY 350.1.13.10 i ty of [facility] [place] [phone] [address] 2023-03-07 2023-03-07 Telephone [facility] 1.2.840.114 1 [id number] Univers 00:00:00 00:00:00 Edgar RALPH 350.1.13.10 i ty of [facility] [id number] [address] 2023-03-03 2023-03-03 Outpatient JADA ARMENTA [id number] Jada 00:00:00 00:00:00 DORINDA alberto 2023-03-01 2023-03-01 Outpatient JADA ARMENTA [id number] Jada 00:00:00 00:00:00 DORINDA alberto 2023-02-28 2023-02-28 Emergency X HELEN, [facility] ERT [id number] Univers 14:29:00 20:01:00 NANCI [facility] 2023-02-28 2023-02-28 [facility] 1.2.840.114 [id number] Univers 14:29:00 20:01:00 Nanci SARABIA 350.1.13.10 i ty of [place] 4.2.7.2.686 [facility] [phone] [facility] [address] 2023-02-27 2023-02-27 Outpatient Rupa FRANKLIN [facility] [id number] Univers 00:00:00 00:00:00 SENDIL [facility] 2023-02-23 2023-02-23 Outpatient R [facility] [id number] Univers 10:00:00 10:00:00 PETER [facility] 2023-02-23 2023-02-23 Refill [facility] 1.2.840.114 [id number] Univers 00:00:00 00:00:00 Yanira ROSAS 350.1.13.10 i ty of [facility] [place] [id number] [address] 2023-02-22 2023-02-22 Outpatient JADA ARMENTA [id number] Jada 00:00:00 00:00:00 DORINDA alberto 2023-02-22 2023-02-22 Orders Doctor ARTURO 1.2.840.114 [id number] Univers 00:00:00 00:00:00 Only Unassigned, GLENDA 350.1.13.10 ity of [facility] 4.2.7.2.686 Claude as [phone] [address] 2023-02-19 2023-02-19 Office Tori [facility] 1.2.840.114 [id number] Univers 14:30:00 15:00:00 Visit Edgar ROSAS 350.1.13.10 i ty of [facility] [place] [id number] [address] 2023-02-19 2023-02-19 Outpatient DANIEL SHERMAN [facility] [id number] Univers 11:00:00 11:02:49 DAINEL MCKINLEY [facility] 2023-02-19 2023-02-19 Office Elías [facility] 1.2.840.114 [id number] Univers 11:00:00 11:02:49 Visit [facility] 350.1.13.10 ity of [place] 4.2.7.2.686 Claude as SHIVANI?BLEA [phone] Il donte[address] MEDICAL OFFICE [facility] 2023-02-16 2023-02-16 Outpatient JADA ARMENTA [id number] Jada 00:00:00 00:00:00 DORINDA alberto 2023-02-15 2023-02-15 Emergency Kevyn VILLARREAL [facility] ERT [id number] Univers 16:21:00 21:22:00 LUC [facility] 2023-02-15 2023-02-15 Emergency Marcus Torres [facility] 1.2.840.1 14 [id number] Univers 16:21:00 21:22:00 Luc Villarreal 350.1.13.10 it[place] [id number] [address] 2023-02-01 2023-02-01 Outpatient R KATELYN, [facility] [id number] Univers 14:00:00 14:30:54 DAQUAN ity of [facility] 2023-01-16 2023-01-16 Telephone [facility] 1.2.488.365 [id number] Univers 00:00:00 00:00:00 Qiakosta [place] 350.1.13.10 ity of [facility] [place] [id number] Il dic[address] 2023-01-16 2023-01-16 [facility] 1.2.453.884 [id number] Univers 00:00:00 00:00:00 Tiffanie DAVENPORTTON 350.1.13.10 ity of [facility] 4.[place] [phone] Il dicma NAL [address] [place] [address] 2023-01-15 2023-01-15 Outpatient [facility] [id number] Univers 07:45:03 23:59:00 TIFFANIE witt o [facility] 2023-01-11 2023-01-11 Outpatient R JOHNNY, [facility] [id number] Univers 15:19:17 23:59:00 TIFFANIE ity o [facility] 2022-12-14 2022-12-14 Telephone [facility] .2.484.940 [id number] Univers 00:00:00 00:00:00 Qialdjun [place] 350.1.13.10 ity of [facility] 4.[place] [phone] Il dic[address] 2022-12-13 2022-12-13 Outpatient R JOHNNY, [facility] [id number] Univers 11:00:00 11:00:00 JACOBJUN ity o [facility] 2022-12-05 2022-12-05 Outpatient R MADELINE [facility] [id number] Univers 13:00:00 13:16:09 REENU ity of [facility] 2022-12-05 2022-12-05 Urgent Ilana Martinezruby [facility] 1.2.840.11 4 [id number] Univers 13:00:00 13:16:09 Care Unknown, Attending HEALTH 350.1.13.10 ity of [place] 4.2.7.2.686 Claude as SHIVANI?BLEA [phone] Il dical KNEY [address] MEDICAL OFFICE BUILDING 2022-12-05 2022-12-05 Orders Doctor ARTURO 1.2.840.114 [id number] Univers 00:00:00 00:00:00 Only Unassigned, GLENDA 350.1.13.10 ity of [facility] 4.2.7.2.686 Claude as [phone] [facility] [address] 2022-11-22 2022-11-22 Emergency X [facility] ERT [id number] Univers 16:18:00 17:27:00 SHANICE ity of [facility] 2022-11-22 2022-11-22 Emergency [facility] 1.2.562.302 [id number] Univers 16:18:00 17:27:00 Shanice S CORNELL 350.1.13.10 i ty of [place] [phone] [facility] [address] 2022-11-02 2022-11-02 Office [facility] 1.2.840.114 [id number] Univers 10:00:00 10:00:00 Visit Tiffanie SARABIA 350.1.13.10 ity of [place] [phone] Il rema DUFFY 059 [facility] 2022-11-02 2022-11-02 Outpatient R JOHNNY [facility] [id number] Univers 10:00:00 09:50:48 TIFFANIE witt o f [facility] 2022-10-20 2022-10-20 (TEL) [facility] [id number] Co mmon 00:00:00 00:00:00 [facility] 2022-10-18 2022-10-18 Orders Doctor ARTURO 1.2.840.114 [id number] Univers 00:00:00 00:00:00 Only Unassigned, GLENDA 350.1.13.10 [facility] 4.2.7.2.686 Claude as [id number] [facility] [address] 2022-10-12 2022-10-12 Outpatient [facility] [id number] Univers 09:20:00 09:20:00 TIFFANIE siny o f [facility] 2022-10-11 2022-10-11 (TEL) [facility] [id number] Co mmon 00:00:00 00:00:00 [facility] 2022-09-24 2022-09-24 Emergency X AUFDERHEIDE [facility] ERT [id number] Univers 12:36:00 14:49:00 , LIZZ witt of [facility] 2022-09-24 2022-09-24 Emergency [facility] 1.2.840.114 [id number] Univers 12:36:00 14:49:00 , Lizz SARABIA 350.1.13.10 i ty of [place] [id number] [facility] [address] 2022-09-18 2022-09-18 Outpatient JADA RAYMOND [id number] Jada 00:00:00 00:00:00 MARTY alberto 2022-09-18 2022-09-18 Telephone [facility] 1.2.856.073 [id number] Univers 00:00:00 00:00:00 Tiffanie SARABIA 350.1.13.10 ity of [place] [facility] [phone] [facility] 059 [facility] 2022-09-18 2022-09-18 Refill [facility] 1.2.840.114 [id number] Univers 00:00:00 00:00:00 Tiffanie SARABIA 350.1.13.10 ity of [place] [id number] Il dical NAL 059 [facility] 2022-09-15 2022-09-15 Outpatient R JOHNNY, [facility] [id number] Univers 08:15:00 08:36:20 QIAKOSTA ity o f [facility] 2022-09-15 2022-09-15 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 2, Adc Lab [facility] 1.2.840.114 [id number] [facility] 08:15:00 08:30:00 Visit Tiffanie Turner [place] 350.1.13.10 ity of [facility] [place] [phone] Il dical NAL 353 [facility] 2022-09-15 2022-09-15 (TEL) STLMLC STLMLC [id number] Co mmon 00:00:00 00:00:00 [facility] 2022-09-14 2022-09-14 Outpatient JADA BLANCO [id number] Jada 00:00:00 00:00:00 SIDDHARTHA Leyvaol remy 2022-09-13 2022-09-13 OFFICE STLMLC STLMLC [id number] Co mmon 00:00:00 00:00:00 VISIT [facility] - [facility] LEVEL 4 [facility] 2022-09-12 2022-09-12 Outpatient PREJADA ALLISON [id number] Jada 00:00:00 00:00:00 SIDDHARTHA Starrybol remy 2022-09-12 2022-09-12 Refill [facility] 1.2.840.114 [id number] [facility] 00:00:00 00:00:00 Tiffanie SARABIA 350.1.13.10 ity of [facility] [place] [phone] Il dical NAL 059 [facility] 2022-08-31 2022-08-31 Outpatient R JOHNNY, [facility] [id number] Univers 13:20:00 13:20:00 QIANGJUN ity o f [facility] 2022-08-28 2022-08-28 (TEL) STLMLC STLMLC [id number] Co mmon 00:00:00 00:00:00 [facility] 2022-08-22 2022-08-22 (TEL) STLMLC STLMLC [id number] Co mmon 00:00:00 00:00:00 [facility] 2022-08-18 2022-08-18 OFFICE STLMLC STLMLC [id number] Co mmon 00:00:00 00:00:00 VISIT [facility] PT - [facility] LEVEL 4 [facility] 2022-08-17 2022-08-17 (TEL) STLMLC STLMLC [id number] Co mmon 00:00:00 00:00:00 [facility] 2022-08-15 2022-08-15 Jocy [facility] 1.2.840.114 [id number] Univers 00:00:00 00:00:00 Qiakosta [place] 350.1.13.10 ity of [place] 4[place] [id number] [address] 2022-08-11 2022-08-11 Outpatient R SEWANI, [facility] [id number] Univers 09:20:00 09:20:00 PETER ity [facility] 2022-08-10 2022-08-10 [facility] [id number] Univers 10:00:00 23:59:00 PETER ity [facility] 2022-07-31 2022-07-31 Jocy [facility] 1.2.840.114 [id number] Univers 00:00:00 00:00:00 Tiffanie DAVENPORTTON 350.1.13.10 ity of [place]2.[place] [id number] Il dical NAL [address] [place] [address] 2022-07-26 2022-07-26 Jocy [facility] 1.2.840.114 [id number] Univers 00:00:00 00:00:00 Qialdjun [place] 350.1.13.10 ity of [facility] 4.2.[place].2.[place] [phone] Il dical NAL [address] [place] [address] 2022-07-17 2022-07-17 Telephone [facility] 1.2.008.036 [id number] Univers 00:00:00 00:00:00 Qiakosta [place] 350.1.13.10 ity of [facility] 4.[place] [phone] Il dical NAL [address] [place] [address] 2022-07-17 2022-07-17 Refill [facility] 1.2.840.114 [id number] Univers 00:00:00 00:00:00 Qiangjun [place] 350.1.13.10 ity of [facility] 4.[place] [phone] [address] 2022-07-17 2022-07-17 OFFICE [facility] [id number] Co mmon 00:00:00 00:00:00 VISIT Spirit ESTAB PT - CHI LEVEL 4 [facility] 2022-07-14 2022-07-14 Outpatient [facility] [id number] Univers 10:40:00 10:40:00 PETER ity [facility] 2022-07-14 2022-07-14 Outpatient [facility] [id number] Univers 10:40:00 10:40:00 PETER [facility] 2022-07-10 2022-07-10 Outpatient PACEMAKER/I JADA STALEY [id number] Jada 08:15:00 08:15:00 CD Seybol d 2022-07-10 20[facility] 1.2.840.114 [id number] Univers 00:00:00 00:00:00 Tiffanie [place] 350.1.13.10 ity of [facility] 4.[place] [phone] Il dicma NAL [address] [place] [address] 2022-07-07 2022-07-07 Outpatient [facility] [id number] Univers 08:00:00 08:00:00 PETER ity [facility] 2022-07-03 2022-07-03 Outpatient JADA RAYMOND [id number] Jada 00:00:00 00:00:00 MARTY alberto 2022-06-14 2022-06-14 OFFICE STLMLC STLMLC [id number] Co mmon 00:00:00 00:00:00 VISIT [facility] ESTAB PT - CHI LEVEL 4 [facility] 2022-06-14 2022-06-14 SUB ANNUAL STLMLC STLMLC [id number] Common 00:00:00 00:00:00 MCR [facility] WELLNESS - CHI VISIT [facility] 2022-06-14 2022-06-14 (TEL) STLMLC STLMLC [id number] Co mmon 00:00:00 00:00:00 [facility] 2022-06-14 2022-06-14 (TEL) STLMLC STLMLC [id number] Co mmon 00:00:00 00:00:00 [facility] 2022-06-05 2022-06-05 Outpatient JADA BLANCO [id number] Jada 08:00:00 08:00:00 SIDDHARTHA alberto 2022-05-29 2022-05-29 OFFICE STLMLC STLMLC [id number] Co mmon 00:00:00 00:00:00 VISIT NEW Spir it PT LEVEL 3 - [facility] 2022-05-25 2022-05-25 Telephone Johnny, SARAI 1.2.871.030 [id number] Univers 00:00:00 00:00:00 Tiffanie SARABIA 350.1.13.10 ity of [place] [id number] Il dical NAL [address] [facility] 2022-05-25 2022-05-25 Orders Doctor ARTURO 1.2.840.114 [id number] Univers 00:00:00 00:00:00 Only Unassigned, GLENDA 350.1.13.10 ity of [facility] 4.2.7.2.686 Claude as [id number] [facility] [address] 2022-05-08 2022-05-08 (TEL) STLMLC STLMLC [id number] Co mmon 00:00:00 00:00:00 [facility] 2022-04-28 2022-04-28 Refill [facility] 1.2.840.114 [id number] Univers 00:00:00 00:00:00 Jacobghazal [place] 350.1.13.10 ity of [place] [id number] [facility] 059 [facility] 2022-04-10 2022-04-10 Outpatient R SRIKANTH [facility] [id number] Univers 00:00:00 23:59:00 PETER ity of [facility] 2022-04-10 2022-04-10 Hospital Kalapilar MARQUITA 1.2.840.114 [id number] Univers 00:00:00 23:59:00 Encounter Peter GLENDA 350.1.13.10 [facility] 4.2.7.2.686 Claude as [id number] [facility] [address] 2022-03-31 2022-03-31 Outpatient JADA STALEY [id number] Jada 13:00:00 13:00:00 Seybol d 2022-03-30 2022-03-30 Outpatient TREKorina7 JADA STALEY [id number] Jada 10:30:00 10:30:00 Seybol d 2022-03-30 2022-03-30 Outpatient JADA RAYMOND [id number] Jada 09:40:00 09:40:00 MARTY Seybol d 2022-03-27 2022-03-27 Orders Doctor ARTURO 1.2.840.114 [id number] Univers 00:00:00 00:00:00 Only Unassigned, GLENDA 350.1.13.10 ity of [place] [facility] 4.2.7.2.686 Claude as [id number] [facility] [address] 2022-03-20 2022-03-20 Telephone [facility] 1.2.243.908 [id number] Univers 00:00:00 00:00:00 Vianneyldghazal [place] 350.1.13.10 ity of [facility] [place] [phone] Il dical NAL 059 [facility] 2022-03-06 2022-03-06 Outpatient LAB90 JADA STALEY [id number] Jada 08:45:00 08:45:00 Seybol d 2022-03-06 2022-03-06 Office Philip Blanco 1.2.840.114 [id number] Jada 08:15:00 08:30:00 Visit Siddhartha Eamon 350.1.13.13 Se ybold 1.2.7.2.686 [id number] 0 2022-03-01 2022-03-01 Jocy Turner [facility] 1.2.840.114 [id number] Univers 00:00:00 00:00:00 Tiffanie SARABIA 350.1.13.10 ity [facility] 4[place]2.7.2.[place] [id number] Il dical NAL 059 [facility] 2022-02-03 2022-02-03 Outpatient LAB90 JADA STALEY [id number] Jada 10:00:00 10:00:00 Seybol d 2022-02-03 2022-02-03 Office Philip Blanco 1.2.840.114 [id number] Jada 09:00:00 09:45:00 Visit Siddhartha Knutson 350.1.13.13 Se ybold 1.2.7.2.686 [id number] 0 2022-02-03 2022-02-03 Orders Doctor MORRIS 1.2.840.114 [id number] Univers 00:00:00 00:00:00 Only Unassigned, GLENDA 350.1.13.10 ity of [facility] 4.2.7.2.686 Claude as [id number] [address] 2022-01-16 2022-01-16 (TEL) STLMLC STLC [id number] Co mmon 00:00:00 00:00:00 [facility] 2022-01-06 2022-01-06 Outpatient Rupa DUKE [facility] [id number] Univers 08:59:10 23:59:00 PETER ity of [facility] 2022-01-06 2022-01-06 (TEL) STLMLC STLMLC [id number] Co mmon 00:00:00 00:00:00 [facility] 2021-10-28 2021-10-28 Orders Doctor ARTURO 1.2.840.114 [id number] Univers 00:00:00 00:00:00 Only Unassigned, GLENDA 350.1.13.10 ity of [facility] 4.2.7.2.686 Claude as [id number] [address] 2021-10-26 2021-10-26 Telephone [facility] 1.2.879.488 [id number] Univers 00:00:00 00:00:00 Qialdjun [place] 350.1.13.10 ity of [place] [phone] Il dical NAL 9 [facility] 2021-10-26 2021-10-26 Telephone [facility] 1.2.948.856 [id number] Univers 00:00:00 00:00:00 Qiangjun [place] 350.1.13.10 ity of [facility] 4.2.[place] [id number] Il dical NAL 059 [facility] 2021-10-25 2021-10-25 Refill [facility] 1.2.840.114 [id number] Univers 00:00:00 00:00:00 Qiangjun [place] 350.1.13.10 ity of [place] [phone] Il dical NAL 9 [facility] 2021-10-18 2021-10-18 (TEL) STLMLC STLMLC [id number] Co mmon 00:00:00 00:00:00 [facility] 2021-10-13 2021-10-13 (TEL) STLMLC STLMLC [id number] Co mmon 00:00:00 00:00:00 [facility] 2021-10-12 2021-10-12 (TEL) STLMLC STLMLC [id number] Co mmon 00:00:00 00:00:00 [facility] - [facility] 2021-10-11 2021-10-11 Telephone [facility] 1.2.162.229 [id number] Univers 00:00:00 00:00:00 Tiffanie SARABIA 350.1.13.10 ity of [place] [phone] Il dical NAL 059 [facility] 2021-10-06 2021-10-06 OFFICE STLMLC STLMLC [id number] Co mmon 00:00:00 00:00:00 VISIT Spirit ESTAB PT - CHI LEVEL 4 [facility] 2021-10-04 2021-10-04 Outpatient R SRIKANTH [facility] [id number] Univers 00:00:00 23:59:00 PETER ity of [facility] 2021-10-04 2021-10-04 [facility] MARQUITA [facility] 1.2.840.114 [id number] Univers 00:00:00 23:59:00 Encounter Peter GLENDA 350.1.13.10 [facility] 4.2.7.2.686 Claude as [id number] [facility] [address] 2021-10-04 2021-10-04 Outpatient R [facility] [id number] Univers 00:00:00 23:59:00 ity of [facility] 2021-09-14 2021-09-14 Orders Doctor MORRIS 1.2.840.114 [id number] Univers 00:00:00 00:00:00 Only Unassigned, GLENDA 350.1.13.10 ity of [facility] 4.2.7.2.686 Claude as [id number] [facility] [address] 2021-07-27 2021-07-27 Refill [facility] 1.2.840.114 [id number] Univers 00:00:00 00:00:00 Tiffanie SARABIA 350.1.13.10 ity of [place] [id number] Il dical NAL 059 [facility] 2021-07-15 2021-07-15 Office [facility] 1.2.840.114 [id number] Univers 09:00:00 09:41:35 Visit Tiffanie SARABIA 350.1.13.10 [facility] [place] [phone] Il dical NAL 059 [facility] 2021-07-15 2021-07-15 [facility] [id number] Univers 09:00:00 09:41:35 TIFFANIE ity o [facility] 2021-07-15 2021-07-15 [facility] [id number] Univers 09:00:00 09:41:35 TIFFANIE siny o [facility] 2021-07-15 2021-07-15 Orders Doctor ARTURO 1.2.840.114 [id number] Univers 00:00:00 00:00:00 Only Unassigned, GLENDA 350.1.13.10 ity of [facility] 4.2.7.2.686 Claude as [phone] [address] 2021-07-14 2021-07-14 (TEL) STLMLC STLMLC [id number] Co mmon 00:00:00 00:00:00 [facility] - [facility] 2021-07-06 2021-07-06 OFFICE STLMLC STLMLC [id number] Co mmon 00:00:00 00:00:00 VISIT [facility] PT - CHI LEVEL 4 [facility] 2021-07-05 2021-07-05 [facility] 1.2.840.114 [id number] Univers 08:22:08 23:59:00 Encounter Peter Cornell [id number] [place] [phone] Il dical nal 844 [facility] 2021-07-05 2021-07-05 Outpatient R [facility] [id number] Univers 08:40:00 08:40:00 PETER ity of [facility] 2021-07-01 2021-07-01 (TEL) STLMLC STLMLC [id number] Co mmon 00:00:00 00:00:00 [facility] 2021-06-21 2021-06-21 (TEL) STLC [facility] [id number] Co mmon 00:00:00 00:00:00 [facility] 2021-06-07 2021-06-07 [facility] 1.2.840.114 [id number] Univers 00:00:00 00:00:00 Qialdjun [place] [id number] [place] [phone] [address] 2021-05-30 2021-05-30 Telephone [facility] [id number] Univers 00:00:00 00:00:00 Qiangjun [place] [id number] [place] [phone] Il dicma nal 9 [facility] 2021-05-18 2021-05-18 [facility] [id number] Univers 00:00:00 00:00:00 Qialdjun [place] 350.1.13.10 [place] [phone] [facility] nal [address] [place] [address] 2021-05-17 2021-05-17 Orders Doctor MORRIS 1.2.840.114 [id number] Univers 00:00:00 00:00:00 Only Unassigned, GLENDA 350.1.13.10 ity of [facility] 4.2.7.2.686 [place] as [phone] [address] 2021-04-18 2021-04-18 Refill [facility] 1.2.840.114 [id number] Univers 00:00:00 00:00:00 Qialdjun [place] 350.1.13.10 [place] [phone] Il dicma nal 9 [facility] 2021-04-18 2021-04-18 Orders Doctor MORRIS 1.2.840.114 [id number] Univers 00:00:00 00:00:00 Only Unassigned, GLENDA 350.1.13.10 ity of [place] [facility] 4.2.7.2.686 Claude as [phone] [address] 2021-04-14 2021-04-14 Refill [facility] 1.2.840.114 [id number] Univers 00:00:00 00:00:00 Qiangjun [place] 350.1.13.10 [place] [phone] Il dical nal 9 [facility] 2021-03-28 2021-03-28 Orders Doctor ARTURO 1.2.840.114 [id number] Univers 00:00:00 00:00:00 Only Unassigned, GLENDA 350.1.13.10 ity of [facility] 4.2.7.2.686 Claude as [phone] [address] 2021-03-23 2021-03-23 (TEL) STLMLC STLMLC [id number] Co mmon 00:00:00 00:00:00 [facility] 2021-03-21 2021-03-21 (TEL) STLMLC STLMLC [id number] Co mmon 00:00:00 00:00:00 [facility] 2021-03-16 2021-03-16 [facility] 1.2.840.114 [id number] Univers 00:00:00 00:00:00 Qiangjun [place] 350.1.13.10 [place] [phone] Il dical nal 059 [facility] 2021-03-10 2021-03-10 (TEL) STLMLC STLMLC [id number] Co mmon 00:00:00 00:00:00 [facility] 2021-03-08 2021-03-08 Telephone [facility] 1.2.517.369 [id number] Univers 00:00:00 00:00:00 Qiangjun [place] 350.1.13.10 [place] [phone] Il dical nal 9 [facility] 2021-03-08 2021-03-08 Orders Doctor ARTURO 1.2.840.114 [id number] Univers 00:00:00 00:00:00 Only Unassigned, GLENDA 350.1.13.10 ity of [facility] 4.2.7.2.686 Claude as [phone] [address] 2021-03-07 2021-03-07 Outpatient [facility] [id number] Univers 00:00:00 00:00:00 PETER ity of [facility] 2021-03-07 2021-03-07 Refill [facility] 1.2.840.114 [id number] Univers 00:00:00 00:00:00 Tiffanie Sarabia 350.1.13.10 [place] of [place] [phone] Il dical nal [address] [place] [address] 2021-01-17 2021-01-17 [facility] [id number] Common 00:00:00 00:00:00 [facility] 2021-01-12 2021-01-12 Office [facility] 1.2.840.114 [id number] Univers 08:45:17 09:23:01 Visit Tiffanie Sarabia 350.1.13.10 [place] of [place] [phone] Il dical nal [address] [place] [address] 2021-01-12 2021-01-12 Outpatient [facility] [id number] Univers 09:00:00 09:00:00 TIFFANIE ity o f [facility] 2021-01-11 2021-01-11 [facility] [id number] Common 00:00:00 00:00:00 [facility] 2021-01-04 2021-01-04 Telephone [facility] 1.2.393.695 [id number] Univers 00:00:00 00:00:00 Tiffanie Sarabia 350.1.13.10 [place] of [place] [phone] Il dical nal 9 [facility] 2020-12-21 2020-12-21 Outpatient STLMLC STLMLC [id number] Common 00:00:00 00:00:00 [facility] 2020-12-07 2020-12-07 Outpatient R JOHNNY, [facility] [id number] Univers 09:45:00 09:45:00 QIANGJUN ity o f [facility] 2020-12-07 2020-12-07 Outpatient R JOHNNY, [facility] [id number] Univers 09:20:00 09:20:00 TIFFANIE ity o f [facility] 2020-12-04 2020-12-04 Outpatient [facility] [id number] Univers 11:35:00 11:35:00 ity of [facility] 2020-12-01 2020-12-01 [facility] 1.2.840.114 [id number] Univers 00:00:00 00:00:00 Tiffanie Sarabia 350.1.13.10 [place] of [place] [phone] Il dical nal [address] [place] [address] 2020-12-01 2020-12-01 Orders Doctor MORRIS 1.2.840.114 [id number] Univers 00:00:00 00:00:00 Only Unassigned, GLENDA 350.1.13.10 [facility] 4.2.7.2.686 Claude as [phone] [address] 2020-11-06 2020-11-06 Outpatient [facility] [id number] Univers 11:50:00 11:50:00 ity of [facility] 2020-10-08 2020-10-08 Outpatient STLMLC STLMLC [id number] Common 00:00:00 00:00:00 [facility] 2020-10-07 2020-10-07 [facility] 1.2.840.114 [id number] Univers 00:00:00 00:00:00 Tiffanie Sarabia 350.1.13.10 [place] of [place] [phone] Il dical nal [address] [place] [address] 2020-09-22 2020-09-22 Outpatient STLMLC STLMLC [id number] Common 00:00:00 00:00:00 [facility] 2020-09-08 2020-09-08 Outpatient STLMLC STLMLC [id number] Common 00:00:00 00:00:00 [facility] 2020-09-07 2020-09-07 Laboratory Pacemaker/Icd, Adc [facility] 1.2. 840.114 [id number] Univers 11:14:10 12:34:18 Only Dilia Franklin 350.1.13. 10 ity of [place] [phone] Il dical nal [address] [place] [address] 2020-09-07 2020-09-07 Outpatient R [facility] [id number] Univers 11:30:00 11:30:00 ity of [facility] 2020-09-07 2020-09-07 Telephone [facility] 1.2.107.378 [id number] Univers 00:00:00 00:00:00 Tiffanie Davenportton 350.1.13.10 it[place] of [place] [phone] Il dicma nal [address] [place] [address] 2020-08-19 2020-08-19 Refill [facility] 1.2.840.114 [id number] Univers 00:00:00 00:00:00 Tiffanie Davenportton 350.1.13.10 ity of [place] [phone] Il dicma nal [address] [place] [address] 2020-08-19 2020-08-19 Refill [facility] 1.2.840.114 [id number] 67 00:00:00 00:00:00 Tiffanie [place] 350.1.13.10 [place] 4.2.7.2.686 Professio [phone] [address] 2020-08-04 2020-08-04 Telephone [facility] 1.2.387.502 [id number] Univers 00:00:00 00:00:00 Tiffanie Davenportton 350.1.13.10 ity of [place] [phone] [address] 2020-08-04 2020-08-04 Telephone [facility], [facility] 1.2.565.420 [id number] 0130 00:00:00 00:00:00 Tiffanie [place] 350.1.13.10 [place] 4.2.7.2.686 Professio [phone] [address] 2020-07-28 2020-07-28 Refill [facility] 1.2.840.114 [id number] Univers 00:00:00 00:00:00 Tiffanie Davenportton 350.1.13.10 ity of [place] [phone] [address] 2020-07-28 2020-07-28 Telephone [facility], [facility] 1.2.443.185 [id number] Univers 00:00:00 00:00:00 Tiffanie Davenportton 350.1.13.10 it[place] of [place] [phone] [address] 2020-07-28 2020-07-28 Telephone [facility] 1.2.001.655 [id number] Univers 00:00:00 00:00:00 Vianneykosta [facility] 350.1.13.10 i [place] [phone] [address] 2020-07-28 2020-07-28 Refill [facility] 1.2.840.114 [id number] 23 00:00:00 00:00:00 Tiffanie Davenportton 350.1.13.10 [place] 4.2.7.2.686 Professio [phone] [address] 2020-07-28 2020-07-28 Telephone [facility], [facility] 1.2.897.767 [id number] 00:00:00 00:00:00 Tiffanie Sarbaia 350.1.13.10 [place] 4.2.7.2.686 Professio [phone] [address] 2020-07-28 2020-07-28 [facility] 1.2.868.939 [id number] 00:00:00 00:00:00 Tiffanie Meier 350.1.13.10 [place] 4.2.7.2.686 [place] [phone] [place] [address] Office [facility] 2020-07-14 2020-07-25 Office [facility], [facility] 1.2.840.114 [id number] [facility] 14:32:25 10:29:52 Visit Tiffanie Sarabia 350.1.13.10 ity of [place] [phone] [address] 2020-07-14 2020-07-25 [facility] 1.2.840.114 [id number] 14:32:25 10:29:52 Visit Tiffanie Sarabia 350.1.13.10 [place] 4.2.7.2.686 Professio [phone] [address] 2020-07-23 2020-07-23 Appointmen , [facility] Room 1 - [facility] 1.2.840.114 [id number] Univers 08:07:05 09:07:05 t Tiffanie Turner 350.1.13.10 it[place] of [place] [phone] [address] 2020-07-23 2020-07-23 Appointmen , [facility] Room 1 - [facility] 1.2.840.114 [id number] Univers 08:06:50 09:06:50 t Tiffanie Turner 350.1.13.10 ity of [place].2.[place] [phone] Il dic[address] 2020-07-23 2020-07-23 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, [facility] Room 1 - [facility] 1.2.840.114 [id number] Univers 08:04:49 09:04:49 Visit Tiffanie Turner 350.1.13.10 ity of [place].2.[place] [phone] Il dical nal [address] [place] [address] 2020-07-23 2020-07-23 Outpatient R [facility] [id number] Univers 08:00:00 08:00:00 ity of [facility] 2020-07-15 2020-07-15 Laboratory Pc, Adc Echo Room 1 - [facility] 1 .2.840.114 [id number] Univers 10:05:12 10:51:12 Only Tiffanie Turner 350.1.13.10 ity of [place].2.[place] [phone] Il dical nal [address] [place] [address] 2020-07-15 2020-07-15 Outpatient R [facility] [id number] Univers 10:00:00 10:00:00 ity of [facility] 2020-07-14 2020-07-14 [facility] [id number] Univers 14:40:00 14:40:00 JACOBGHAZAL eduar o f [facility] 2020-07-14 2020-07-14 Orders Doctor ARTURO 1.2.840.114 [id number] Univers 00:00:00 00:00:00 Only Unassigned, GLENDA 350.1.13.10 ity of [facility] 4.2.7.2.686 Claude as [phone] [address] 2020-07-13 2020-07-13 [facility] [id number] Univers 14:20:00 14:20:00 VIANNEYLDGHAZAL ity o f [facility] 2020-07-12 2020-07-12 Outpatient STLMLC STLMLC [id number] Common 00:00:00 00:00:00 [facility] 2020-07-02 2020-07-02 Outpatient STLMLC STLMLC [id number] Common 00:00:00 00:00:00 [facility] 2020-06-30 2020-06-30 Outpatient STLMLC STLMLC [id number] Common 00:00:00 00:00:00 [facility] 2020-06-28 2020-06-28 Outpatient STLMLC STLMLC [id number] Common 00:00:00 00:00:00 [facility] 2020-06-16 2020-06-16 [facility] 1.2.840.114 [id number] Univers 00:00:00 00:00:00 Jacobghazal Cornell 350.1.13.10 [place] of [place] [phone] Il dical nal 9 [facility] 2020-06-11 2020-06-11 Outpatient [facility] [id number] Common 08:30:00 08:30:00 IN-PIPE TECHNOLOGY Spir it Drive [facility] 2020-06-11 2020-06-11 Orders Doctor MORRIS 1.2.840.114 [id number] Univers 00:00:00 00:00:00 Only Unassigned, GLENDA 350.1.13.10 [facility] 4.2.7.2.686 Claude as [phone] [address] 2020-05-28 2020-05-28 [facility] [id number] Univers 10:00:00 10:00:00 TIFFANIE witt o f [facility] 2020-05-06 2020-05-06 [facility] 1.2.840.114 [id number] Univers 00:00:00 00:00:00 Tiffanie Sarabia 350.1.13.10 ity of [place] [phone] Il dical nal 9 [facility] 2020-05-04 2020-05-04 [facility] [id number] Univers 11:20:00 11:20:00 TIFFANIE witt o f [facility] 2020-05-04 2020-05-04 Outpatient [facility] [id number] Common 09:45:00 09:45:00 IN-PIPE TECHNOLOGY Spir it Drive [facility] 2020-04-23 2020-04-23 Telephone [facility] 1.2.551.165 [id number] Univers 00:00:00 00:00:00 Qiangjun [place] 350.1.13.10 ity of [place] [phone] [address] 2020-04-21 2020-04-21 Outpatient [facility] [id number] Univers 09:30:00 09:30:00 QIANGJUN ity o f [facility] 2020-04-21 2020-04-21 Telephone [facility] 1.2.062.478 [id number] Univers 00:00:00 00:00:00 Qiangjun [place] 350.1.13.10 ity of [place].2.[place] [phone] [address] 2020-04-21 2020-04-21 Telephone [facility] 1.2.637.326 [id number] Univers 00:00:00 00:00:00 Qiangjun [place] 350.1.13.10 [place] of [place].2.[place] [phone] [address] 2020-04-21 2020-04-21 Refill [facility] 1.2.840.114 [id number] Univers 00:00:00 00:00:00 Qiangjun [place] 350.1.13.10 [place]y of [place] 4[place].7.2.[place] [phone] [address] 2020-04-14 2020-04-14 Orders Doctor ARTURO 1.2.840.114 [id number] Univers 00:00:00 00:00:00 Only Unassigned, GLENDA 350.1.13.10 ity of [facility] 4.2.7.2.686 Claude as [phone] [address] 2020-04-12 2020-04-12 Refill [facility] 1.2.840.114 [id number] Univers 00:00:00 00:00:00 Qiangjun [place] 350.1.13.10 ity of [place] [phone] Il dical nal 059 [facility] 2020-04-05 2020-04-05 Outpatient [facility] [id number] Common 10:30:00 10:30:00 t Specialty/U Sp shayne Specialty rology - [facility] 2020-04-02 2020-04-02 Telephone [facility] 1.2.207.337 [id number] Univers 00:00:00 00:00:00 Qiangjun [place] 350.1.13.10 [place] of [place] 4[place]2.[place].2.[place] [phone] Il dical nal 059 [facility] 2020-04-02 2020-04-02 Refill [facility] 1.2.840.[id number] [place] [address] 00:00:00 00:00:00 Qiangjun [place] 350.1.13.10 [place]y of [place].2.[place] [phone] Il dical nal 9 [facility] 2020-03-31 2020-03-31 Outpatient [facility] [id number] Common 16:31:00 16:31:[address] [facility] 2020-03-24 2020-03-24 Outpatient [facility] [id number] Common 08:42:00 08:42:[address] [facility] 2020-03-16 2020-03-16 Outpatient [facility] [id number] Common 14:43:00 14:43:[address] [facility] 2020-03-10 2020-03-10 Outpatient [facility] 29 [id number] Common 10:45:00 10:45:[address] [facility] 2020-02-27 2020-02-[address]114 [id number] Univers 00:00:00 00:00:00 Qiangjun [place] 350.1.13.10 ity of [place] [phone] Il dical nal 059 [facility] 2020-02-24 2020-02-24 [facility] 1.2.840.114 [id number] Univers 00:00:00 00:00:00 Jacobghazal Cornell 350.1.13.10 ity of [place].2.[place] [phone] Il dical nal 059 [facility] 2020-02-04 2020-02-04 Outpatient [facility] [id number] Common 14:00:00 14:00:[address] [facility] 2020-02-04 2020-02-04 Outpatient [facility] [id number] Common 14:00:00 14:00:[address] [facility] 2020-01-12 2020-01-12 Outpatient Rupa TURNER [facility] [id number] Univers 10:20:00 10:20:00 TIFFANIE witt o f [facility] 2020-01-12 2020-01-12 Telemedici [facility] 1.2.840.114 [id number] Univers 08:02:05 08:22:05 ne Visit Tiffanie Sarabia 350.1.13.10 ity of [place] [phone] Il donteal nal 9 [facility] 2020-01-12 2020-01-12 [facility]ill [facility] 1.2.840.114 [id number] Univers 00:00:00 00:00:00 Tiffanie Sarabia 350.1.13.10 [place] of [place] [phone] Il dical nal 059 [facility] 2020-01-05 2020-01-05 Outpatient [facility] [id number] Common 10:00:00 10:00:00 t Specialty/U Sp shayne Specialty rology - [facility] 2019-11-28 2019-12-17 Nurse Visit, Kelly Nurse [facility] 1.2.840.1 14 [id number] Univers 09:13:12 22:46:30 Visit Dilia Franklin 350.1.13. 10 ity of [place] [phone] Il dical nal 9 [facility] 2019-12-15 2019-12-15 [facility] [id number] Univers 09:20:00 09:20:00 TIFFANIE ity o f [facility] 2019-12-10 2019-12-10 Outpatient [facility] [id number] Common 10:15:00 10:15:[address] [facility] 2019-12-09 2019-12-09 Outpatient [facility] [id number] Common 13:15:00 13:15:[address] [facility] 2019-11-28 2019-11-28 Outpatient R [facility] [id number] Univers 09:15:00 09:15:00 ity of [facility] 2019-11-28 2019-11-28 Orders Doctor ARTURO 1.2.840.114 [id number] Univers 00:00:00 00:00:00 Only Unassigned, GLENDA 350.1.13.10 ity of [facility] 4.2.7.2.686 Claude as [phone] [address] 2019-11-03 2019-11-23 Office [facility] 1.2.840.114 [id number] Univers 13:02:51 13:14:44 Visit Tiffanie Sarabia 350.1.13.10 ity of [place] [phone] Il dical nal 059 [facility] 2019-11-10 2019-11-10 Outpatient [facility] [id number] Common 09:06:00 09:06:00 t Specialty/U Sp shayne Specialty rology - [facility] 2019-11-06 2019-11-06 Outpatient [facility] 29 [id number] Common 11:29:00 11:29:00 t Specialty/U Sp shayne Specialty rology - [facility] 2019-11-05 2019-11-05 [facility] 1.2.362.060 [id number] Univers 00:00:00 00:00:00 Tiffanie Sarabia 350.1.13.10 ity of [place] [phone] Il dical nal [address] 2019-11-03 2019-11-03 [facility] [id number] Univers 13:00:00 13:00:00 TIFFANIE ity o f [facility] 2019-11-03 2019-11-03 Orders Doctor ARTURO 1.2.840.114 [id number] Univers 00:00:00 00:00:00 Only Unassigned, GLENDA 350.1.13.10 ity of [facility] 4.2.7.2.686 Claude as [phone] [facility] [address] 2019-10-27 2019-10-27 Outpatient Alton Fuller 29 [id number] Common 16:27:00 16:27:00 t Specialty/U Sp shayne Specialty rology - [facility] 2019-10-27 2019-10-27 Letter [facility] 1.2.840.114 [id number] Univers 00:00:00 00:00:00 (Out) Neurology Health 350.1.13.10 ity of [place]2.7.2.[place] [phone] [facility] [address] 2019-10-23 2019-10-23 Outpatient Alton Dangt 29 [id number] Common 10:45:00 10:45:00 t Specialty/U Sp shayne Specialty rology - [facility] 2019-10-23 2019-10-23 Outpatient Alton Dangt 29 [id number] Common 08:45:00 08:45:[address] Family - [facility] Family Medicine [facility] 2019-10-06 2019-10-06 Outpatient Alton Dangt [id number] Common 10:30:00 10:30:00 t Specialty/U Sp shayne Specialty rology - [facility] 2019-09-22 2019-09-22 Outpatient [facility] [id number] Common 10:43:00 10:43:[address] [facility] 2019-09-10 2019-09-10 Outpatient [facility] [id number] Common 15:00:00 15:00:[address] [facility] 2019-09-10 2019-09-10 Outpatient [facility] [id number] Common 10:45:00 10:45:00 t Specialty/U Sp shayne Specialty rology - [facility] /Urology Clinic [facility] 2019-09-03 2019-09-03 Outpatient [facility] [id number] Common 09:30:00 09:30:[address] [facility] 2019-08-27 2019-08-27 Outpatient [facility] [id number] Common 11:30:00 11:30:00 t Specialty/U Sp shayne Specialty rology - [facility] 2019-08-20 2019-08-20 Outpatient [facility] [id number] Common 16:09:00 16:09:[address] [facility] 2019-07-10 2019-07-10 Outpatient [facility] [id number] Common 11:00:00 11:00:[address] [facility] 2019-07-09 2019-07-09 Outpatient Rupa [facility] [id number] Univers 10:40:00 11:12:47 JACOBJUN ity o f [facility] 2019-07-03 2019-07-03 Outpatient [facility] [id number] Common 08:00:00 08:00:[address] [facility] 2019-05-23 2019-06-12 Nurse Visit, Kelly Nurse [facility] 1.2.840.1 14 [id number] [facility] 08:03:32 14:10:44 Visit Dilia Franklin 350.1.13. 10 [place] [phone] [place] [id number] [facility] 2019-06-12 2019-06-12 Outpatient [facility] [id number] Common 11:22:00 11:22:[address] [facility] 2019-06-10 2019-06-10 Outpatient [facility] [id number] Common 11:15:00 11:15:[address] [facility] 2019-06-04 2019-06-04 Outpatient [facility] [id number] Common 15:22:00 15:22:[address] [facility] 2019-06-04 2019-06-04 Outpatient [facility] [id number] Common 08:15:00 08:15:[address] [facility] 2019-06-03 2019-06-03 Outpatient [facility] [id number] Common 09:30:00 09:30:[address] [facility] 2019-05-23 2019-05-23 Orders Doctor MORRIS 1.2.840.114 [id number] Univers 00:00:00 00:00:00 Only Unassigned, GLENDA 350.1.13.10 ity of [facility] 4.2.7.2.686 Claude as [phone] [place] [address] [address] 2019-05-15 2019-05-15 Outpatient [facility] [id number] Common 16:23:00 16:23:[address] [facility] 2019-03-27 2019-03-27 Outpatient [facility] [id number] Common 13:11:00 13:11:[address] [facility] 2019-03-27 2019-03-27 Outpatient [facility] [id number] Common 10:15:00 10:15:[address] [facility] 2019-03-19 2019-03-19 Outpatient [facility] [id number] Common 14:30:00 14:30:[address] [facility] 2018-12-31 2018-12-31 Outpatient Rupa [facility] [id number] Univers 10:00:00 10:51:21 TIFFANIE ity o f [facility] 2018-12-25 2018-12-25 Outpatient [facility] [id number] Common 16:00:00 16:00:[address] [facility] 2018-11-06 2018-11-06 Outpatient [facility] [id number] Common 08:00:00 08:00:[address] [facility] 2018-10-02 2018-10-02 [facility] [id number] Common 15:45:00 15:45:[address] [facility] 2018-03-21 2018-03-21 [facility] [id number] Common 08:15:00 08:15:[address] [facility] 2017-12-19 2017-12-19 [facility] [id number] Common 08:45:00 08:45:[address] [facility] Results Test Description Test Time Test Comments Results Result Comments Source TISSUE CULTURE(AEROBIC/ANAEROBIC) 2023-04-23 12:12:16 Test Item Value Reference Range Interpretation Comme nts TISSUE CULTURE (test code = No aerobic/anaerobic organisms isolated 95575-4) Gram stain (test code = 664-3) Moderate PMNs or Mononuclear cells o bserved [facility] GLUCOSE (AUTOMATED)2023-04-21 17:52:29 Test Item Value Reference Range Interpretation Comments POCT GLU (test code = 7688525473) 176 mg/dL 70-110 H Lab Interpretation (test code = Abnormal 83380-3) [facility] GLUCOSE (AUTOMATED)2023-04-21 17:52:29 Test Item Value Reference Range Interpretation Comments POCT GLU (test code = 5859605088) 176 mg/dL 70-110 H Lab Interpretation (test code = Abnormal 99261-2) [place] [facility] 13[facility]56:20 Test Item Value Reference Range Interpretation Comments POCT GLU (test code = 7009770643) 133 mg/dL 70-110 H Lab Interpretation (test code = Abnormal 70129-8) [facility]21 13:56:20 Test Item Value Reference Range Interpretation Comments POCT GLU (test code = 4633629788) 133 mg/dL 70-110 H Lab Interpretation (test code = Abnormal 31772-6) [facility]11 Test Item Value Reference Range Interpretation Comments POCT GLU (test code = 1330824109) 206 mg/dL 70-110 H Lab Interpretation (test code = Abnormal 62494-7) [facility] 02:02:11 Test Item Value Reference Range Interpretation Comments POCT GLU (test code = 7999240135) 206 mg/dL 70-110 H Lab Interpretation (test code = Abnormal 43469-4) [facility]-04-20 23:17:06 Test Item Value Reference Range Interpretation Comments POCT GLU (test code = 7674543652) 149 mg/dL 70-110 H Lab Interpretation (test code = Abnormal 84934-2) [facility]-20 23:17:06 Test Item Value Reference Range Interpretation Comments POCT GLU (test code = 9447298135) 149 mg/dL 70-110 H Lab Interpretation (test code = Abnormal 26734-5) [facility]23-04-20 15:08:14 Test Item Value Reference Range Interpretation Comments POCT GLU (test code = 186 mg/dL 70-110 H Notifi ed Provider [id number]) Lab Interpretation (test Abnormal code = 96249-4) [facility] 15:08:14 Test Item Value Reference Range Interpretation Comments POCT GLU (test code = 186 mg/dL 70-110 H Notifi ed Provider [id number]) Lab Interpretation (test Abnormal code = 49863-5) [facility] GLUCOSE (AUTOMATED)2023-04-12 23:08:59 Test Item Value Reference Range Interpretation Comments POCT GLU (test code = 3117781362) 210 mg/dL 70-110 H 239378 Lab Interpretation (test code = Abnormal 96157-5) [facility] GLUCOSE (AUTOMATED)2023-04-12 20:48:55 Test Item Value Reference Range Interpretation Comments POCT GLU (test code = 298 mg/dL 70-110 H Notifi ed Provider [id number]) Lab Interpretation (test Abnormal code = 52748-8) [facility] GLUCOSE (AUTOMATED)2023-04-12 16:57:53 Test Item Value Reference Range Interpretation Comments POCT GLU (test code = 289 mg/dL 70-110 H Notifi ed Provider [id number]) Lab Interpretation (test Abnormal code = 29516-2) [facility] GLUCOSE (AUTOMATED)2023-04-12 13:16:41 Test Item Value Reference Range Interpretation Comments POCT GLU (test code = 5729268862) 233 mg/dL 70-110 H Lab Interpretation (test code = Abnormal 77014-8) [facility] 09:18:21 Test Item Value Reference Range Interpretation Comments MAGNESIUM (test code = 3696653260) 1.9 mg/dL 1.7-2.4 Lab Interpretation (test code = Normal 77011-2) [facility]23-[facility]-13 09:18:21 Test Item Value Reference Range Interpretation Comments PHOSPHORUS (test code = 2524230177) 4.1 mg/dL 2.5-5.0 Lab Interpretation (test code = Normal 96172-0) [facility] (NA, K, CL, CO2, GLUCOSE, BUN, CREATININE, CA)2023-04-12 09:18:21 Test Item Value Reference Range Interpretation Comments NA (test code = 138 mmol/L 135-145 4189429383) K (test code = 4.4 mmol/L 3.5-5.0 7458244644) CL (test code = 103 mmol/L 98-108 9177690157) CO2 TOTAL (test code = 25 mmol/L 23-31 3541912872) AGAP (test code = 10 2-16 9201165859) BUN (test code = 22 mg/dL 7- 1665453976) GLUCOSE (test code = 129 mg/dL 70-110 H 0137676139) CREATININE (test code = 0.84 mg/dL 0.60-1.25 4327737649) CALCIUM (test code = 9.0 mg/dL 8.6-10.6 3206314690) eGFR (test code = 90.6 mL/min/1.73m2 3975459091) DELMY (test code = DELMY) Association of Glomerular Filtration Rate (GFR) and Staging of Kidney Disease* + --+ --+ ------+| GFR (mL/min/1.73 m2) ?| With Kidney Damage ?| ?Without Kidney Damage+ --------+ --------+ +| ?>90 ?| ?Stage one ?| ? Normal ?+ ---+ ---+ -------+| ?60-89 ?| ?Stage two ?| ? Decreased GFR ? + --+ --+ ------+| ?30-59 ?| ?Stage three ?| ? Stage three ? + --+ --+ ------+| ?15-29 ?| ?Stage four ? | ? Stage four ?+ ---+ ---+ -------+| ?<15 (or dialysis) ? ?| ?Stage five ? | ? Stage five ?+ ---+ ---+ -------+ *Each stage assumes the associated GFR level has been in effect for at least three months. ?Stages 1 to 5, with or without kidney disease, indicate chronic kidney disease. Notes: Determination of stages one and two (with eGFR >59mL/min/1.73 m2) requires estimation of kidney damage for at least three months as defined by structural or functional abnormalities of the kidney, manifested by either:Pathological abnormalities or Markers of kidney damage (including abnormalities in the composition of the blood or urine or abnormalities in imaging tests). Lab Interpretation Abnormal (test code = 60535-4) [facility] WITH [id number] 09:01:55 Test Item Value Reference Range Interpretation Comments WBC (test code = 6.11 See_Comment [Dwdgljkkj 4626-2) message] The sy stem which generated this result transmitted reference range : 4.20 - 10.70 10*3/?L. The reference range was not used to interpret this result as normal/abnormal . RBC (test code = 3.64 See_Comment L [Automated 789-8) message] The sy stem which generated this result transmitted reference range : 4.26 - 5.52 10*6/?L. The reference range was not used to interpret this result as normal/abnormal . HGB (test code = 10.8 g/dL 12.2-16.4 L 718-7) HCT (test code = 32.5 % 38.4-49.3 L 4544-3) MCV (test code = 89.3 fL 81.7-95.6 787-2) MCH (test code = 29.7 pg 26.1-32.7 785-6) MCHC (test code = 33.2 g/dL 31.2-35.0 786-4) RDW-SD (test code = 50.4 fL 38.5-51.6 60637-4) RDW-CV (test code = 15.4 % 12.1-15.4 788-0) PLT (test code = 230 See_Comment [Automated 777-3) message] The sy stem which generated this result transmitted reference range : 150 - 328 10*3/ ?L. The reference r dorothy was not used to interpret this result as normal/abnormal . MPV (test code = 9.6 fL 9.8-13.0 L 92520-5) NRBC/100 WBC (test 0.0 See_Comment [Automat ed code = 6489184419) message] The system which generated this result transmitted reference range : 0.0 - 10.0 /100 WBCs. The refer ence range was not u sed to interpret th is result as normal/abnormal . NRBC x10^3 (test code See_Comment [Auto mated = 5444394277) message] The s ystem which generated this result transmitted reference range : 10*3/?L. The reference range was not used to interpret this result as normal/abnormal . GRAN MAT (NEUT) % 49.4 % (test code = 770-8) IMM GRAN % (test code 0.20 % = 5840168081) LYMPH % (test code = 35.5 % 736-9) MONO % (test code = 12.3 % 5905-5) EOS % (test code = 2.1 % 713-8) BASO % (test code = 0.5 % 706-2) GRAN MAT x10^3(ANC) 3.02 10*3/uL 1.99-6.95 (test code = 6813947808) IMM GRAN x10^3 (test 0.00-0.06 code = 8324001521) LYMPH x10^3 (test code 2.17 10*3/uL 1.09-3.23 = 731-0) MONO x10^3 (test code 0.75 10*3/uL 0.36-1.02 = 742-7) EOS x10^3 (test code = 0.13 10*3/uL 0.06-0.53 711-2) BASO x10^3 (test code 0.03 10*3/uL 0.01-0.09 = 704-7) Lab Interpretation Abnormal (test code = 61222-0) [facility] GLUCOSE (AUTOMATED)2023-04-12 01:39:19 Test Item Value Reference Range Interpretation Comments POCT GLU (test code = 6526098502) 283 mg/dL 70-110 H Lab Interpretation (test code = Abnormal 20301-0) [facility] GLUCOSE (AUTOMATED)2023-04-12 00:12:40 Test Item Value Reference Range Interpretation Comments POCT GLU (test code = 9360074539) 204 mg/dL 70-110 H Lab Interpretation (test code = Abnormal 73408-8) [facility] GLUCOSE (AUTOMATED)2023-04-11 21:41:42 Test Item Value Reference Range Interpretation Comments POCT GLU (test code = 3429642593) 253 mg/dL 70-110 H Lab Interpretation (test code = Abnormal 89032-6) [facility] GLUCOSE (AUTOMATED)2023-04-11 17:43:42 Test Item Value Reference Range Interpretation Comments POCT GLU (test code = 7197010751) 234 mg/dL 70-110 H Lab Interpretation (test code = Abnormal 69990-9) [facility] GLUCOSE (AUTOMATED)2023-04-11 12:15:05 Test Item Value Reference Range Interpretation Comments POCT GLU (test code = 4154367601) 170 mg/dL 70-110 H Lab Interpretation (test code = Abnormal 84956-0) [facility] GLUCOSE (AUTOMATED)2023-04-11 01:54:41 Test Item Value Reference Range Interpretation Comments POCT GLU (test code = 0642343241) 217 mg/dL 70-110 H Lab Interpretation (test code = Abnormal 31688-0) [facility] GLUCOSE (AUTOMATED)2023-04-10 20:29:01 Test Item Value Reference Range Interpretation Comments POCT GLU (test code = 5957452058) 282 mg/dL 70-110 H Lab Interpretation (test code = Abnormal 80813-0) [facility] GLUCOSE (AUTOMATED)2023-04-10 17:14:33 Test Item Value Reference Range Interpretation Comments POCT GLU (test code = 5692297591) 245 mg/dL 70-110 H Lab Interpretation (test code = Abnormal 16482-9) [facility] Trough Level - Draw within 30 minutes prior to 4TH dose.2023-04-10 15:54:52 Test Item Value Reference Range Interpretation Comments VANCO TROUGH (test code 16.0 ug/mL 10.0-20.0 = 3036357608) DELMY (test code = DELMY) Toxic Range: ?>20 ug/mL 15-20 ug/mL is recommended for severe infection or when Vancomycin MARQUEZ is greater than or equal to 2. Lab Interpretation (test Normal code = 17428-2) [facility] GLUCOSE (AUTOMATED)2023-04-10 12:09:34 Test Item Value Reference Range Interpretation Comments POCT GLU (test code = 6534696474) 172 mg/dL 70-110 H Lab Interpretation (test code = Abnormal 50435-1) [facility] GLUCOSE (AUTOMATED)2023-04-10 01:48:02 Test Item Value Reference Range Interpretation Comments POCT GLU (test code = 2419750432) 309 mg/dL 70-110 H Lab Interpretation (test code = Abnormal 61987-8) [facility] GLUCOSE (AUTOMATED)2023-04-09 22:24:37 Test Item Value Reference Range Interpretation Comments POCT GLU (test code = 5336978416) 362 mg/dL 70-110 H Lab Interpretation (test code = Abnormal 23705-6) [facility] GLUCOSE (AUTOMATED)2023-04-09 21:36:03 Test Item Value Reference Range Interpretation Comments POCT GLU (test code = 3238845464) 377 mg/dL 70-110 H Lab Interpretation (test code = Abnormal 95392-4) [facility] GLUCOSE (AUTOMATED)2023-04-09 13:20:06 Test Item Value Reference Range Interpretation Comments POCT GLU (test code = 5960708575) 205 mg/dL 70-110 H Lab Interpretation (test code = Abnormal 43083-4) [facility] GLUCOSE (AUTOMATED)2023-04-09 01:59:05 Test Item Value Reference Range Interpretation Comments POCT GLU (test code = 7742842206) 318 mg/dL 70-110 H Lab Interpretation (test code = Abnormal 51943-5) [facility] GLUCOSE (AUTOMATED)2023-04-08 21:30:33 Test Item Value Reference Range Interpretation Comments POCT GLU (test code = 340 mg/dL 70-110 H Notifi ed Provider [id number]) Lab Interpretation (test Abnormal code = 53320-9) [facility] GLUCOSE (AUTOMATED)2023-04-08 16:57:11 Test Item Value Reference Range Interpretation Comments POCT GLU (test code = 4687080235) 262 mg/dL 70-110 H Lab Interpretation (test code = Abnormal 51988-0) [facility] GLUCOSE (AUTOMATED)2023-04-08 12:57:02 Test Item Value Reference Range Interpretation Comments POCT GLU (test code = 7417204279) 191 mg/dL 70-110 H Lab Interpretation (test code = Abnormal 50260-3) [facility] WITHOUT [id number] 09:37:25 Test Item Value Reference Range Interpretation Comments WBC (test code = 6690-2) 7.03 See_Comment [A utomated message] The system [employer] generated this result transmit lora reference range : 4.20 - 10.70 10*3/?L. The reference range was not used to interpret this result as normal/abnormal . RBC (test code = 789-8) 3.58 See_Comment L [Au tomated message] The system [employer] generated this result transmit lora reference range : 4.26 - 5.52 10* 6/?L. The reference r dorothy was not used to interpret this result as normal/abnormal . HGB (test code = 718-7) 10.7 g/dL 12.2-16.4 L HCT (test code = 4544-3) 31.9 % 38.4-49.3 L MCH (test code = 785-6) 29.9 pg 26.1-32.7 MCV (test code = 787-2) 89.1 fL 81.7-95.6 MCHC (test code = 786-4) 33.5 g/dL 31.2-35.0 PLT (test code = 777-3) 179 See_Comment [Au tomated message] The system [employer] generated this result transmit lora reference range : 150 - 328 10*3/?L. The reference range was not used to interpret this result as normal/abnormal . MPV (test code = 9.6 fL 9.8-13.0 L 57246-8) RDW-CV (test code = 15.3 % 12.1-15.4 788-0) RDW-SD (test code = 49.8 fL 38.5-51.6 37267-4) NRBC x10^3 (test code = See_Comment [Au tomated message] 7924059355) The system [facility] [email or web address] generated this result transmit lora reference range : 10*3/?L. The reference range was not used to interpret this result as normal/abnormal . NRBC/100 WBC (test code 0.0 See_Comment [Au tomated message] = 4181989192) The system [facility] generated this result transmit lora reference range : 0.0 - 10.0 /100 WBC s. The reference r dorothy was not used to interpret this result as normal/abnormal . IPF % (test code = 8519862227) Lab Interpretation (test Abnormal code = 12373-8) [facility] GLUCOSE (AUTOMATED)2023-04-08 01:43:32 Test Item Value Reference Range Interpretation Comments POCT GLU (test code = 1685946456) 321 mg/dL 70-110 H Lab Interpretation (test code = Abnormal 00685-6) [facility] GLUCOSE (AUTOMATED)2023-04-07 21:43:35 Test Item Value Reference Range Interpretation Comments POCT GLU (test code = 4112764343) 259 mg/dL 70-110 H Lab Interpretation (test code = Abnormal 06381-1) [facility] GLUCOSE (AUTOMATED)2023-04-07 16:57:29 Test Item Value Reference Range Interpretation Comments POCT GLU (test code = 1861537514) 316 mg/dL 70-110 H Lab Interpretation (test code = Abnormal 95767-5) [facility] GLUCOSE (AUTOMATED)2023-04-07 12:30:58 Test Item Value Reference Range Interpretation Comments POCT GLU (test code = 5282598760) 193 mg/dL 70-110 H Lab Interpretation (test code = Abnormal 32120-1) [facility] 10:05:09 Test Item Value Reference Range Interpretation Comments MAGNESIUM (test code = 8027816319) 1.8 mg/dL 1.7-2.4 Lab Interpretation (test code = Normal 61090-3) [facility] METABOLIC PANEL (NA, K, CL, CO2, GLUCOSE, BUN, CREATININE, CA)2023-04-07 10:05:09 Test Item Value Reference Range Interpretation Comments NA (test code = 130 mmol/L 135-145 L 5683539606) K (test code = 5.0 mmol/L 3.5-5.0 Slight 3842206822) hemolysis CL (test code = 99 mmol/L 98-108 6919422937) CO2 TOTAL (test code 24 mmol/L 23-31 = 5538438828) AGAP (test code = 7 2-16 6837437461) BUN (test code = 20 mg/dL 7-23 Slight 6819583784) hemolysis GLUCOSE (test code = 186 mg/dL 70-110 H 9440755656) CREATININE (test code 0.76 mg/dL 0.60-1.25 = 7368076527) CALCIUM (test code = 8.4 mg/dL 8.6-10.6 L 3215940498) eGFR (test code = 101.7 mL/min/1.73m2 0625245312) DELMY (test code = DELMY) Association of Glomerular Filtration Rate (GFR) and Staging of Kidney Disease* + -----+ --------+ +| GFR (mL/min/1.73 m2) ?| With Kidney Damage ?| ?Without Kidney Damage+ +------- +---- --+| ?>90 ?| ?Stage one ?| ? Normal ?+ ------+ ---------+--------- +| ?60-89 ?| ?Stage two ?| ? Decreased GFR ? + -----+ --------+ +| ?30-59 ?| ?Stage three ?| ? Stage three ? + -----+ --------+ +| ?15-29 ?| ?Stage four ? | ? Stage four ?+ ------+ ---------+--------- +| ?<15 (or dialysis) ? ?| ?Stage five ? | ? Stage five ?+ ------+ ---------+--------- + *Each stage assumes the associated GFR level has been in effect for at least three months. ?Stages 1 to 5, with or without kidney disease, indicate chronic kidney disease. Notes: Determination of stages one and two (with eGFR >59mL/min/1.73 m2) requires estimation of kidney damage for at least three months as defined by structural or functional abnormalities of the kidney, manifested by either:Pathological abnormalities or Markers of kidney damage (including abnormalities in the composition of the blood or urine or abnormalities in imaging tests). Lab Interpretation Abnormal (test code = 45302-8) [facility] WITH [id number] 09:47:48 Test Item Value Reference Range Interpretation Comments WBC (test code = 7.80 See_Comment [Automated 6590-2) message] The sy stem which generated this result transmitted reference range : 4.20 - 10.70 10*3/?L. The reference range was not used to interpret this result as normal/abnormal . RBC (test code = 3.50 See_Comment L [Automated 719-8) message] The sy stem which generated this result transmitted reference range : 4.26 - 5.52 10*6/?L. The reference range was not used to interpret this result as normal/abnormal . HGB (test code = 10.7 g/dL 12.2-16.4 L 718-7) HCT (test code = 31.1 % 38.4-49.3 L 4544-3) MCV (test code = 88.9 fL 81.7-95.6 787-2) MCH (test code = 30.6 pg 26.1-32.7 785-6) MCHC (test code = 34.4 g/dL 31.2-35.0 786-4) RDW-SD (test code = 50.4 fL 38.5-51.6 62273-7) RDW-CV (test code = 15.7 % 12.1-15.4 H 788-0) PLT (test code = 183 See_Comment [Automated 777-3) message] The sy stem which generated this result transmitted reference range : 150 - 328 10*3/ ?L. The reference r dorothy was not used to interpret this result as normal/abnormal . MPV (test code = 9.7 fL 9.8-13.0 L 14052-9) NRBC/100 WBC (test 0.0 See_Comment [Automat ed code = 7605591671) message] The system which generated this result transmitted reference range : 0.0 - 10.0 /100 WBCs. The refer ence range was not u sed to interpret th is result as normal/abnormal . NRBC x10^3 (test code See_Comment [Auto mated = 0519081363) message] The s ystem which generated this result transmitted reference range : 10*3/?L. The reference range was not used to interpret this result as normal/abnormal . GRAN MAT (NEUT) % 62.8 % (test code = 770-8) IMM GRAN % (test code 0.30 % = 7025353311) LYMPH % (test code = 23.3 % 736-9) MONO % (test code = 10.9 % 5905-5) EOS % (test code = 2.3 % 713-8) BASO % (test code = 0.4 % 706-2) GRAN MAT x10^3(ANC) 4.90 10*3/uL 1.99-6.95 (test code = 0330645648) IMM GRAN x10^3 (test 0.00-0.06 code = 7009322273) LYMPH x10^3 (test code 1.82 10*3/uL 1.09-3.23 = 731-0) MONO x10^3 (test code 0.85 10*3/uL 0.36-1.02 = 742-7) EOS x10^3 (test code = 0.18 10*3/uL 0.06-0.53 711-2) BASO x10^3 (test code 0.03 10*3/uL 0.01-0.09 = 704-7) Lab Interpretation Abnormal (test code = 86048-0) [facility] GLUCOSE (AUTOMATED)2023-04-07 01:30:57 Test Item Value Reference Range Interpretation Comments POCT GLU (test code = 353 mg/dL 70-110 H NURSE NOTIFIED 2342923830) Lab Interpretation (test code Abnormal = 56438-4) [facility] GLUCOSE (AUTOMATED)2023-04-06 22:36:53 Test Item Value Reference Range Interpretation Comments POCT GLU (test code = 352 mg/dL 70-110 H Notifi ed Provider [id number]) Lab Interpretation (test Abnormal code = 54728-7) [facility] GLUCOSE (AUTOMATED)2023-04-06 17:41:48 Test Item Value Reference Range Interpretation Comments POCT GLU (test code = 322 mg/dL 70-110 H Notifi ed Provider [id number]) Lab Interpretation (test Abnormal code = 88046-1) [facility] GLUCOSE (AUTOMATED)2023-04-06 14:16:51 Test Item Value Reference Range Interpretation Comments POCT GLU (test code = 224 mg/dL 70-110 H Notifi ed Provider [id number]) Lab Interpretation (test Abnormal code = 88214-5) [facility] GLUCOSE (AUTOMATED)2023-04-06 01:59:35 Test Item Value Reference Range Interpretation Comments POCT GLU (test code = 9198244365) 262 mg/dL 70-110 H Lab Interpretation (test code = Abnormal 31643-5) [facility] GLUCOSE (AUTOMATED)2023-04-05 23:52:51 Test Item Value Reference Range Interpretation Comments POCT GLU (test code = 7686230264) 243 mg/dL 70-110 H Lab Interpretation (test code = Abnormal 83829-5) [facility] GLUCOSE (AUTOMATED)2023-04-05 19:44:11 Test Item Value Reference Range Interpretation Comments POCT GLU (test code = 1767516868) 233 mg/dL 70-110 H Lab Interpretation (test code = Abnormal 30988-2) [facility] GLUCOSE (AUTOMATED)2023-04-05 13:02:19 Test Item Value Reference Range Interpretation Comments POCT GLU (test code = 0221470881) 135 mg/dL 70-110 H Lab Interpretation (test code = Abnormal 28137-6) [facility] GLUCOSE (AUTOMATED)2023-04-05 01:50:54 Test Item Value Reference Range Interpretation Comments POCT GLU (test code = 9220600603) 269 mg/dL 70-110 H Lab Interpretation (test code = Abnormal 82735-2) [facility] METABOLIC PANEL (12135)2023-03-30 03:14:15 Test Item Value Reference Range Interpretation Comments NA (test code = 134 mmol/L 135-145 L 8625736140) K (test code = 4.7 mmol/L 3.5-5.0 8855793519) CL (test code = 98 mmol/L 98-108 3004732186) CO2 TOTAL (test code = 24 mmol/L 23-31 8673822361) AGAP (test code = 12 2-16 4341474170) BUN (test code = 36 mg/dL 7-23 H 9005089325) GLUCOSE (test code = 129 mg/dL 70-110 H 9202262960) CREATININE (test code = 1.03 mg/dL 0.60-1.25 9487824828) TOTAL BILI (test code = 0.5 mg/dL 0.1-1.4 2194823934) CALCIUM (test code = 9.4 mg/dL 8.6-10.6 3762360572) T PROTEIN (test code = 7.5 g/dL 6.3-8.2 1684433473) ALBUMIN (test code = 4.1 g/dL 3.5-5.0 8664497677) ALK PHOS (test code = 52 U/L 34-122 1149905909) ALTv (test code = 19 U/L 5-50 1742-6) AST(SGOT) (test code = 20 U/L 13-40 0406404510) eGFR (test code = 71.6 mL/min/1.73m2 1850618995) DELMY (test code = DELMY) Association of Glomerular Filtration Rate (GFR) and Staging of Kidney Disease* + --+ --+ ------+| GFR (mL/min/1.73 m2) ?| With Kidney Damage ?| ?Without Kidney Damage+ --------+ --------+ +| ?>90 ?| ?Stage one ?| ? Normal ?+ ---+ ---+ -------+| ?60-89 ?| ?Stage two ?| ? Decreased GFR ? + --+ --+ ------+| ?30-59 ?| ?Stage three ?| ? Stage three ? + --+ --+ ------+| ?15-29 ?| ?Stage four ? | ? Stage four ?+ ---+ ---+ -------+| ?<15 (or dialysis) ? ?| ?Stage five ? | ? Stage five ?+ ---+ ---+ -------+ *Each stage assumes the associated GFR level has been in effect for at least three months. ?Stages 1 to 5, with or without kidney disease, indicate chronic kidney disease. Notes: Determination of stages one and two (with eGFR >59mL/min/1.73 m2) requires estimation of kidney damage for at least three months as defined by structural or functional abnormalities of the kidney, manifested by either:Pathological abnormalities or Markers of kidney damage (including abnormalities in the composition of the blood or urine or abnormalities in imaging tests). Lab Interpretation Abnormal (test code = 38583-8) [facility] WITH [id number] 01:57:26 Test Item Value Reference Range Interpretation Comments WBC (test code = 12.75 See_Comment H [Automated 7201-2) message] The sy stem which generated this result transmitted reference range : 4.20 - 10.70 10*3/?L. The reference range was not used to interpret this result as normal/abnormal . RBC (test code = 4.09 See_Comment L [Automated 120-8) message] The sy stem which generated this result transmitted reference range : 4.26 - 5.52 10*6/?L. The reference range was not used to interpret this result as normal/abnormal . HGB (test code = 12.2 g/dL 12.2-16.4 718-7) HCT (test code = 36.1 % 38.4-49.3 L 4544-3) MCV (test code = 88.3 fL 81.7-95.6 787-2) MCH (test code = 29.8 pg 26.1-32.7 785-6) MCHC (test code = 33.8 g/dL 31.2-35.0 786-4) RDW-SD (test code = 50.0 fL 38.5-51.6 67496-9) RDW-CV (test code = 15.6 % 12.1-15.4 H 788-0) PLT (test code = 246 See_Comment [Automated 777-3) message] The sy stem which generated this result transmitted reference range : 150 - 328 10*3/ ?L. The reference r dorothy was not used to interpret this result as normal/abnormal . MPV (test code = 10.0 fL 9.8-13.0 94441-1) NRBC/100 WBC (test 0.0 See_Comment [Automat ed code = 4869689171) message] The system which generated this result transmitted reference range : 0.0 - 10.0 /100 WBCs. The refer ence range was not u sed to interpret th is result as normal/abnormal . NRBC x10^3 (test code See_Comment [Auto mated = 8111542714) message] The s ystem which generated this result transmitted reference range : 10*3/?L. The reference range was not used to interpret this result as normal/abnormal . GRAN MAT (NEUT) % 64.7 % (test code = 770-8) IMM GRAN % (test code 0.40 % = 1266803778) LYMPH % (test code = 25.8 % 736-9) MONO % (test code = 8.1 % 5905-5) EOS % (test code = 0.8 % 713-8) BASO % (test code = 0.2 % 706-2) GRAN MAT x10^3(ANC) 8.25 10*3/uL 1.99-6.95 H (test code = 2537546727) IMM GRAN x10^3 (test 0.05 10*3/uL 0.00-0.06 code = 3047232391) LYMPH x10^3 (test code 3.29 10*3/uL 1.09-3.23 H = 731-0) MONO x10^3 (test code 1.03 10*3/uL 0.36-1.02 H = 742-7) EOS x10^3 (test code = 0.10 10*3/uL 0.06-0.53 711-2) BASO x10^3 (test code 0.03 10*3/uL 0.01-0.09 = 704-7) Lab Interpretation Abnormal (test code = 91450-7) [facility] [id number] 00:13:20 Test Item Value Reference Range Interpretation Comments K (test code = 1873963735) 5.4 mmol/L 3.5-5.0 H Lab Interpretation (test code = Abnormal 95040-6) [facility]icsPROTHROMBIN TIME / [id number] 20:34:48 Test Item Value Reference Range Interpretation Comments PROTIME PATIENT (test 14.0 See_Comment [Auto mated message] code = 5964-2) The system [employer] generated this result transmitted ref erence range: 12.0 - 1 4.7 Seconds. The re ference range was not u sed to interpret this result as normal/abnor mal. INR (test code = 6301-6) 1.1 Nor mal INR <1.1; Warfarin Therap eutic range 2.0 to 3. 0 or 2.5 to 3.5, dep ending upon the indica tions. Lab Interpretation (test Normal code = 30177-6) [facility]ics[facility] [id number] 20:33:26 Test Item Value Reference Range Interpretation Comments TROPONIN I (test code = 0.017 ng/mL <=0.034 6531868795) DELMY (test code = DELMY) Reference (Normal) Range (defined by the 99th percentile reference limit): <= 0.034 ng/mL Note: Cardiac troponin begins to rise 3-4 hours after the onset of ischemia. Repeat in 4-6 hours if the sample was drawn within 3-4 hours of the onset of the symptom and found normal. Diagnosis of myocardial injury is made with acute changes in cTn concentrations with at least one serial sample above the 99th percentile upper reference limit (URL), taken together with the patient's clinical presentation. Biotin has been reported to cause a negative bias, interpret results relative to patient's use of biotin. Lab Interpretation Normal (test code = 37929-9) [facility]. METABOLIC PANEL (88179)2023-02-28 20:22:27 Test Item Value Reference Range Interpretation Comments NA (test code = 138 mmol/L 135-145 1004233721) K (test code = 5.8 mmol/L 3.5-5.0 H 7409593412) CL (test code = 103 mmol/L 98-108 4469890270) CO2 TOTAL (test code = 28 mmol/L 23-31 0006472796) AGAP (test code = 7 2-16 6417118805) BUN (test code = 33 mg/dL 7-23 H 5795300507) GLUCOSE (test code = 196 mg/dL 70-110 H 6089553209) CREATININE (test code = 1.27 mg/dL 0.60-1.25 H 5489697391) TOTAL BILI (test code = 0.5 mg/dL 0.1-1.2 4783719838) CALCIUM (test code = 9.4 mg/dL 8.6-10.6 4815567739) T PROTEIN (test code = 7.1 g/dL 6.3-8.2 5116939051) ALBUMIN (test code = 3.8 g/dL 3.5-5.0 5810863535) ALK PHOS (test code = 50 U/L 34-122 6230715463) ALTv (test code = 21 U/L 5-50 1742-6) AST(SGOT) (test code = 26 U/L 13-40 8842739087) eGFR (test code = 56.2 mL/min/1.73m2 0782496841) DELMY (test code = DELMY) Association of Glomerular Filtration Rate (GFR) and Staging of Kidney Disease* + --+ --+ ------+| GFR (mL/min/1.73 m2) ?| With Kidney Damage ?| ?Without Kidney Damage+ --------+ --------+ +| ?>90 ?| ?Stage one ?| ? Normal ?+ ---+ ---+ -------+| ?60-89 ?| ?Stage two ?| ? Decreased GFR ? + --+ --+ ------+| ?30-59 ?| ?Stage three ?| ? Stage three ? + --+ --+ ------+| ?15-29 ?| ?Stage four ? | ? Stage four ?+ ---+ ---+ -------+| ?<15 (or dialysis) ? ?| ?Stage five ? | ? Stage five ?+ ---+ ---+ -------+ *Each stage assumes the associated GFR level has been in effect for at least three months. ?Stages 1 to 5, with or without kidney disease, indicate chronic kidney disease. Notes: Determination of stages one and two (with eGFR >59mL/min/1.73 m2) requires estimation of kidney damage for at least three months as defined by structural or functional abnormalities of the kidney, manifested by either:Pathological abnormalities or Markers of kidney damage (including abnormalities in the composition of the blood or urine or abnormalities in imaging tests). Lab Interpretation Abnormal (test code = 12161-1) [facility]ics[facility]IP[facility]2023-[facility] 20:22:07 Test Item Value Reference Range Interpretation Comments LIPASE (test code = 2813705206) 127 U/L 0-220 Lab Interpretation (test code = Normal 72499-8) [facility] WITH [id number] 20:14:44 Test Item Value Reference Range Interpretation Comments WBC (test code = 8.65 See_Comment [Automated 2990-2) message] The sy stem which generated this result transmitted reference range : 4.20 - 10.70 10*3/?L. The reference range was not used to interpret this result as normal/abnormal . RBC (test code = 3.59 See_Comment L [Automated 134-8) message] The sy stem which generated this result transmitted reference range : 4.26 - 5.52 10*6/?L. The reference range was not used to interpret this result as normal/abnormal . HGB (test code = 10.6 g/dL 12.2-16.4 L 718-7) HCT (test code = 32.4 % 38.4-49.3 L 4544-3) MCV (test code = 90.3 fL 81.7-95.6 787-2) MCH (test code = 29.5 pg 26.1-32.7 785-6) MCHC (test code = 32.7 g/dL 31.2-35.0 786-4) RDW-SD (test code = 46.0 fL 38.5-51.6 06711-4) RDW-CV (test code = 14.3 % 12.1-15.4 788-0) PLT (test code = 206 See_Comment [Automated 777-3) message] The sy stem which generated this result transmitted reference range : 150 - 328 10*3/ ?L. The reference r dorothy was not used to interpret this result as normal/abnormal . MPV (test code = 10.3 fL 9.8-13.0 32031-6) NRBC/100 WBC (test 0.0 See_Comment [Automat ed code = 0284538120) message] The system which generated this result transmitted reference range : 0.0 - 10.0 /100 WBCs. The refer ence range was not u sed to interpret th is result as normal/abnormal . NRBC x10^3 (test code See_Comment [Auto mated = 6267441050) message] The s ystem which generated this result transmitted reference range : 10*3/?L. The reference range was not used to interpret this result as normal/abnormal . GRAN MAT (NEUT) % 58.4 % (test code = 770-8) IMM GRAN % (test code 0.30 % = 9139731052) LYMPH % (test code = 27.3 % 736-9) MONO % (test code = 9.7 % 5905-5) EOS % (test code = 3.8 % 713-8) BASO % (test code = 0.5 % 706-2) GRAN MAT x10^3(ANC) 5.05 10*3/uL 1.99-6.95 (test code = 2440236888) IMM GRAN x10^3 (test 0.03 10*3/uL 0.00-0.06 code = 8752617213) LYMPH x10^3 (test code 2.36 10*3/uL 1.09-3.23 = 731-0) MONO x10^3 (test code 0.84 10*3/uL 0.36-1.02 = 742-7) EOS x10^3 (test code = 0.33 10*3/uL 0.06-0.53 711-2) BASO x10^3 (test code 0.04 10*3/uL 0.01-0.09 = 704-7) Lab Interpretation Abnormal (test code = 76143-5) [facility] [id number] 01:29:38 Test Item Value Reference Range Interpretation Comments K (test code = 9233855138) 5.9 mmol/L 3.5-5.0 H Lab Interpretation (test code = Abnormal 00696-2) [facility]icsTR[facility] [id number] 22:31:39 Test Item Value Reference Range Interpretation Comments TROPONIN I (test code = <=0.034 7003136493) DELMY (test code = DELMY) Reference (Normal) Range (defined by the 99th percentile reference limit): <= 0.034 ng/mL Note: Cardiac troponin begins to rise 3-4 hours after the onset of ischemia. Repeat in 4-6 hours if the sample was drawn within 3-4 hours of the onset of the symptom and found normal. Diagnosis of myocardial injury is made with acute changes in cTn concentrations with at least one serial sample above the 99th percentile upper reference limit (URL), taken together with the patient's clinical presentation. Biotin has been reported to cause a negative bias, interpret results relative to patient's use of biotin. Lab Interpretation Normal (test code = 68518-4) [facility] MET[facility]OL[facility] PAN[facility] (NA, K, CL, CO2, GLUCOSE, BUN, CREATININE, CA)2023-02-15 22:22:55 Test Item Value Reference Range Interpretation Comments NA (test code = 134 mmol/L 135-145 L 2373902689) K (test code = 5.9 mmol/L 3.5-5.0 H 6045832284) CL (test code = 100 mmol/L 98-108 9536248015) CO2 TOTAL (test code = 23 mmol/L 23-31 8474115920) AGAP (test code = 11 2-16 5881703662) BUN (test code = 35 mg/dL 7-23 H 0278236068) GLUCOSE (test code = 326 mg/dL 70-110 H 6781585738) CREATININE (test code = 1.21 mg/dL 0.60-1.25 0805955301) CALCIUM (test code = 9.5 mg/dL 8.6-10.6 1831659588) eGFR (test code = 59.6 mL/min/1.73m2 8468551594) DELMY (test code = DELMY) Association of Glomerular Filtration Rate (GFR) and Staging of Kidney Disease* + --+ --+ ------+| GFR (mL/min/1.73 m2) ?| With Kidney Damage ?| ?Without Kidney Damage+ --------+ --------+ +| ?>90 ?| ?Stage one ?| ? Normal ?+ ---+ ---+ -------+| ?60-89 ?| ?Stage two ?| ? Decreased GFR ? + --+ --+ ------+| ?30-59 ?| ?Stage three ?| ? Stage three ? + --+ --+ ------+| ?15-29 ?| ?Stage four ? | ? Stage four ?+ ---+ ---+ -------+| ?<15 (or dialysis) ? ?| ?Stage five ? | ? Stage five ?+ ---+ ---+ -------+ *Each stage assumes the associated GFR level has been in effect for at least three months. ?Stages 1 to 5, with or without kidney disease, indicate chronic kidney disease. Notes: Determination of stages one and two (with eGFR >59mL/min/1.73 m2) requires estimation of kidney damage for at least three months as defined by structural or functional abnormalities of the kidney, manifested by either:Pathological abnormalities or Markers of kidney damage (including abnormalities in the composition of the blood or urine or abnormalities in imaging tests). Lab Interpretation Abnormal (test code = 61512-7) [facility] WITH [id number] 22:05:54 Test Item Value Reference Range Interpretation Comments WBC (test code = 7.40 See_Comment [Automated 6806-2) message] The sy stem which generated this result transmitted reference range : 4.20 - 10.70 10*3/?L. The reference range was not used to interpret this result as normal/abnormal . RBC (test code = 3.78 See_Comment L [Automated 845-4) message] The sy stem which generated this result transmitted reference range : 4.26 - 5.52 10*6/?L. The reference range was not used to interpret this result as normal/abnormal . HGB (test code = 11.2 g/dL 12.2-16.4 L 718-7) HCT (test code = 33.9 % 38.4-49.3 L 4544-3) MCV (test code = 89.7 fL 81.7-95.6 787-2) MCH (test code = 29.6 pg 26.1-32.7 785-6) MCHC (test code = 33.0 g/dL 31.2-35.0 786-4) RDW-SD (test code = 45.6 fL 38.5-51.6 44309-8) RDW-CV (test code = 13.9 % 12.1-15.4 788-0) PLT (test code = 209 See_Comment [Automated 777-3) message] The sy stem which generated this result transmitted reference range : 150 - 328 10*3/ ?L. The reference r dorothy was not used to interpret this result as normal/abnormal . MPV (test code = 10.3 fL 9.8-13.0 45204-2) NRBC/100 WBC (test 0.0 See_Comment [Automat ed code = 7661599531) message] The system which generated this result transmitted reference range : 0.0 - 10.0 /100 WBCs. The refer ence range was not u sed to interpret th is result as normal/abnormal . NRBC x10^3 (test code See_Comment [Auto mated = 6592222732) message] The s ystem which generated this result transmitted reference range : 10*3/?L. The reference range was not used to interpret this result as normal/abnormal . GRAN MAT (NEUT) % 55.2 % (test code = 770-8) IMM GRAN % (test code 0.10 % = 5893780603) LYMPH % (test code = 30.0 % 736-9) MONO % (test code = 8.4 % 5905-5) EOS % (test code = 5.5 % 713-8) BASO % (test code = 0.8 % 706-2) GRAN MAT x10^3(ANC) 4.08 10*3/uL 1.99-6.95 (test code = 7981809419) IMM GRAN x10^3 (test 0.00-0.06 code = 2346148193) LYMPH x10^3 (test code 2.22 10*3/uL 1.09-3.23 = 731-0) MONO x10^3 (test code 0.62 10*3/uL 0.36-1.02 = 742-7) EOS x10^3 (test code = 0.41 10*3/uL 0.06-0.53 711-2) BASO x10^3 (test code 0.06 10*3/uL 0.01-0.09 = 704-7) Lab Interpretation Abnormal (test code = 51289-8) [facility]. METABOLIC PANEL (57751)2022-09-24 19:24:02 Test Item Value Reference Range Interpretation Comments NA (test code = 135 mmol/L 135-145 9941061035) K (test code = 5.6 mmol/L 3.5-5.0 H 1783782296) CL (test code = 104 mmol/L 98-108 2357147781) CO2 TOTAL (test code = 22 mmol/L 23-31 L 3065968535) AGAP (test code = 2-16 5615158423) BUN (test code = 21 mg/dL 7-23 9070952970) GLUCOSE (test code = 97 mg/dL 70-110 2835441596) CREATININE (test code = 0.76 mg/dL 0.60-1.25 3184029197) TOTAL BILI (test code = 0.5 mg/dL 0.1-1.1 8799952471) CALCIUM (test code = 8.7 mg/dL 8.6-10.6 3535528380) T PROTEIN (test code = 7.6 g/dL 6.3-8.2 1630757852) ALBUMIN (test code = 4.4 g/dL 3.5-5.0 1564161215) ALK PHOS (test code = 47 U/L 34-122 8517387348) ALTv (test code = 30 U/L 5-50 1742-6) AST(SGOT) (test code = 37 U/L 13-40 7420784453) eGFR (test code = mL/min/1.73m2 9026307084) DELMY (test code = DELMY) Association of Glomerular Filtration Rate (GFR) and Staging of Kidney Disease* + --+ --+ ------+| GFR (mL/min/1.73 m2) ?| With Kidney Damage ?| ?Without Kidney Damage+ --------+ --------+ +| ?>90 ?| ?Stage one ?| ? Normal ?+ ---+ ---+ -------+| ?60-89 ?| ?Stage two ?| ? Decreased GFR ? + --+ --+ ------+| ?30-59 ?| ?Stage three ?| ? Stage three ? + --+ --+ ------+| ?15-29 ?| ?Stage four ? | ? Stage four ?+ ---+ ---+ -------+| ?<15 (or dialysis) ? ?| ?Stage five ? | ? Stage five ?+ ---+ ---+ -------+ *Each stage assumes the associated GFR level has been in effect for at least three months. ?Stages 1 to 5, with or without kidney disease, indicate chronic kidney disease. Notes: Determination of stages one and two (with eGFR >59mL/min/1.73 m2) requires estimation of kidney damage for at least three months as defined by structural or functional abnormalities of the kidney, manifested by either:Pathological abnormalities or Markers of kidney damage (including abnormalities in the composition of the blood or urine or abnormalities in imaging tests). Lab Interpretation Abnormal (test code = 46372-2) [facility] WITH [id number] 19:12:20 Test Item Value Reference Range Interpretation Comments WBC (test code = See_Comment [Automated 8097-2) message] The sy stem which generated this result transmitted reference range : 4.20 - 10.70 10*3/?L. The reference range was not used to interpret this result as normal/abnormal . RBC (test code = See_Comment L [Automated 430-6) message] The sy stem which generated this result transmitted reference range : 4.26 - 5.52 10*6/?L. The reference range was not used to interpret this result as normal/abnormal . HGB (test code = 10.7 g/dL 12.2-16.4 L 718-7) HCT (test code = 31.7 % 38.4-49.3 L 4544-3) MCV (test code = 89.8 fL 81.7-95.6 787-2) MCH (test code = 30.3 pg 26.1-32.7 785-6) MCHC (test code = 33.8 g/dL 31.2-35.0 786-4) RDW-SD (test code = 44.1 fL 38.5-51.6 54490-9) RDW-CV (test code = 13.3 % 12.1-15.4 788-0) PLT (test code = See_Comment [Automated 777-3) message] The sy stem which generated this result transmitted reference range : 150 - 328 10*3/ ?L. The reference r dorothy was not used to interpret this result as normal/abnormal . MPV (test code = 10.3 fL 9.8-13.0 13796-6) NRBC/100 WBC (test See_Comment [Automat ed code = 4369136141) message] The system which generated this result transmitted reference range : 0.0 - 10.0 /100 WBCs. The refer ence range was not u sed to interpret th is result as normal/abnormal . NRBC x10^3 (test code See_Comment [Auto mated = 9645796943) message] The s ystem which generated this result transmitted reference range : 10*3/?L. The reference range was not used to interpret this result as normal/abnormal . GRAN MAT (NEUT) % 67.6 % (test code = 770-8) IMM GRAN % (test code 0.40 % = 9097700077) LYMPH % (test code = 23.9 % 736-9) MONO % (test code = 6.6 % 5905-5) EOS % (test code = 1.1 % 713-8) BASO % (test code = 0.4 % 706-2) GRAN MAT x10^3(ANC) 3.69 10*3/uL 1.99-6.95 (test code = 9111681409) IMM GRAN x10^3 (test 0.00-0.06 code = 5666197614) LYMPH x10^3 (test code 1.30 10*3/uL 1.09-3.23 = 731-0) MONO x10^3 (test code 0.36 10*3/uL 0.36-1.02 = 742-7) EOS x10^3 (test code = 0.06 10*3/uL 0.06-0.53 711-2) BASO x10^3 (test code 0.01-0.09 = 704-7) Lab Interpretation Abnormal (test code = 92710-8) [facility]ics[facility]MO[facility]IN [id number] 00:00:00 Test Item Value Reference Range Interpretation Comments A1C (test code = 4548-4) 8.6 [id number] 00:00:00resultHEMOGLOBIN [id number] 00:00:00 Test Item Value Reference Range Interpretation Comments A1C (test code = 4548-4) 9.4 HEMOGLOBIN [id number] 00:00:00 Test Item Value Reference Range Interpretation Comments A1C (test code = 4548-4) 9.6 POCT-GLUCOSE [id number] 08:24:00 Test Item Value Reference Range Interpretation Comments POC-GLUCOSE METER 166 mg/dL 70-110 H : Notified RN/MD: ([facility]) (test code = TESTED AT [place] [address]) [facility], [address]: [employer] Generator Operator/Techni danay ID = [id number] for MANSI CAGLE POCT-GLUCOSE [id number] 22:46:00 Test Item Value Reference Range Interpretation Comments POC-GLUCOSE METER 173 mg/dL 70-110 H : TESTED A T [place] [address] ([facility]) (test code = [facility], 1537) [address]: [employer] Gear Generator Operator/Techni danay ID = [id number] for Duc starr Geovanny POCT-GLUCOSE [id number] 18:44:00 Test Item Value Reference Range Interpretation Comments POC-GLUCOSE METER 185 mg/dL 70-110 H : TESTED A T [facility] 67[facility] ([facility]) (test code = [facility], 153) [address]: [employer] Gear Generator Operator/Techni danay ID = [id number] for CO RTEZ, SHELLY POCT-GLUCOSE [id number] 17:05:00 Test Item Value Reference Range Interpretation Comments POC-GLUCOSE METER 214 mg/dL 70-110 H : TESTED A T [facility] [address] (BEAKER) (test code = JE[place]ET[place], 1538) [address]: [employer] Gear Generator Operator/Techni danay ID = [id number] for CO RTEZ, SHELLY CBC W/PLT COUNT & AUTO [id number] 16:37:00 Test Item Value Reference Range Interpretation [...] PERCENT (BEAKER) (test code = 2801) POCT-GLUCOSE [id number] 14:13:00 Test Item Value Reference Range Interpretation Comments POC-GLUCOSE METER 194 mg/dL 70-110 H : TESTED A T [facility] 6720 (BEAKER) (test code = [facility] [employer] [facility], 1538) [address]: Bevel Gear Generator Operator/Techni danay ID = [id number] for TEO SPENCE POCT-GLUCOSE [id number] 12:08:00 Test Item Value Reference Range Interpretation Comments POC-GLUCOSE METER 228 mg/dL 70-110 H : TESTED A T [facility] 6720 (BEAKER) (test code = [employer] [facility], 1538) [address]: Bevel Gear Generator Operator/Techni danay ID = [id number] for CHAPO HERNANDEZ [id number] 10:00:00 Test Item Value Reference Range Interpretation Comments PHOSPHORUS (BEAKER) (test code = 2.7 mg/dL 2.3-4.7 604) [id number] 10:00:00 Test Item Value Reference Range Interpretation Comments MAGNESIUM (BEAKER) (test code = 1.6 mg/dL 1.6-2.6 627) BASIC METABOLIC [id number] 10:00:00 Test Item Value Reference Range Interpretation [...] 697) EGFR (BEAKER) (test 88 mL/min/1.73 ESTIMA LORA GFR IS code = 1092) sq m NOT ACCURATE CREATININE CLEARANCE IN PREDICTING GLOMERULAR FILTRATION RATE . ESTIMATED GFR I S NOT APPLICABLE FOR DIALYSIS PATIEN TS. POCT-GLUCOSE [id number] 07:47:00 Test Item Value Reference Range Interpretation Comments POC-GLUCOSE METER 146 mg/dL 70-110 H : TESTED A T [facility] 6720 ([employer]) (test code = [employer] [facility], 1538) [address]: Bevel Gear Generator Operator/Techni danay ID = [id number] for CHAPO HERNANDEZ POCT-GLUCOSE [id number] 21:28:00 Test Item Value Reference Range Interpretation Comments POC-GLUCOSE METER 218 mg/dL 70-110 H : TESTED A T [facility] 6720 ([employer]) (test code = [employer] [facility], 1538) [address]: Bevel Gear Generator Operator/Techni danay ID = [id number] for PE BLOSSOM, JUN POCT-GLUCOSE [id number] 18:40:00 Test Item Value Reference Range Interpretation Comments POC-GLUCOSE METER 328 mg/dL 70-110 H : TESTED A T [facility] 6720 ([employer]) (test code = [employer] [facility], 1538) [address]: Bevel Gear Generator Operator/Techni danay ID = [id number] for JOSEFINA CHRIS POCT-GLUCOSE [id number] 18:30:00 Test Item Value Reference Range Interpretation Comments POC-GLUCOSE METER 304 mg/dL 70-110 H : TESTED A T [facility] 6720 ([employer]) (test code = [employer] [facility], 1538) [address]: Bevel Gear Generator Operator/Techni danay ID = [id number] for JIMENA MCKEON RAD, CHEST, 1 VIEW, NON [id number] 12:14:00Reason for exam:->Post ACBShould this be performed [...] MDReport Verified Date/Time: 07/24/2019 12:14:16 Reading Location: [facility] Radiology Reading Room POCT-GLUCOSE [id number] 12:09:00 Test Item Value Reference Range Interpretation Comments POC-GLUCOSE METER 290 mg/dL 70-110 H : TESTED A T [facility] 6720 (BEAKER) (test code = [facility] [employer] [facility], 1538) [address]: Bevel Gear Generator Operator/Techni danay ID = [id number] for JIMENA MCKEON POCT-GLUCOSE [id number] 08:25:00 Test Item Value Reference Range Interpretation Comments POC-GLUCOSE METER 186 mg/dL 70-110 H : TESTED A T [facility] 6720 (BEAKER) (test code = [employer] [facility], 1538) [address]: Bevel Gear Generator Operator/Techni danay ID = [id number] for JIMENA MCKEON OXYGEN SATURATION, [id number] 06:48:00 Test Item Value Reference Range Interpretation Comments O2 SATURATION (MEASURED) (BEAKER) 97.6 % (test code = 1455) [id number] 04:48:00 Test Item Value Reference Range Interpretation Comments PHOSPHORUS (BEAKER) (test code = 1.4 mg/dL 2.3-4.7 LL 604) [id number] 04:42:00 Test Item Value Reference Range Interpretation Comments MAGNESIUM (BEAKER) (test code = 1.8 mg/dL 1.6-2.6 627) BASIC METABOLIC [id number] 04:42:00 Test Item Value Reference Range Interpretation [...] 697) EGFR (BEAKER) (test 87 mL/min/1.73 ESTIMA LORA GFR IS code = 1092) sq m NOT ACCURATE CREATININE CLEARANCE IN PREDICTING GLOMERULAR FILTRATION RATE . ESTIMATED GFR I S NOT APPLICABLE FOR DIALYSIS PATIEN TS. CBC W/PLT COUNT & AUTO [id number] 04:17:00 Test Item Value Reference Range Interpretation [...] PERCENT (BEAKER) (test code = 2801) POCT-GLUCOSE [id number] 21:21:00 Test Item Value Reference Range Interpretation Comments POC-GLUCOSE METER 277 mg/dL 70-110 H : [facility] (test code = [facility], 1537) [address]: Bevel Gear Generator Operator/Techni danay ID = [id number] for JUN CLAIRE POCT-GLUCOSE [id number] 17:11:00 Test Item Value Reference Range Interpretation Comments POC-GLUCOSE METER 272 mg/dL 70-110 H : [facility] ([facility] (test code = [facility], 1537) [id number]: Bevel Gear Generator Operator/Techni danay ID = [id number] for JIMENA MCKEON POCT-GLUCOSE [id number] 12:53:00 Test Item Value Reference Range Interpretation Comments POC-GLUCOSE METER 214 mg/dL 70-110 H : Notified RN/MD: ([facility]) (test code = TESTED AT [place] [id number]) [facility], [id number]: Bevel Gear Generator Operator/Techni danay ID = [id number] for MYLENE GUICHO KIMGARETH POCT-GLUCOSE [id number] 12:51:00 Test Item Value Reference Range Interpretation Comments POC-GLUCOSE METER 310 mg/dL 70-110 H : [facility] (test code = [facility], 153) [id number]: Bevel Gear Generator Operator/Techni danay ID = [id number] for JIMENA MCKEON RAD, CHEST, 1 VIEW, NON [id number] 09:52:00Reason for exam:->Post ACBShould this be performed [...] MDReport Verified Date/Time: 07/23/2019 09:52:55 Reading Location: [facility] Radiology Reading Room POCT- GLUCOSE [id number] 07:50:00 Test Item Value Reference Range Interpretation Comments POC-GLUCOSE METER 209 mg/dL 70-110 H : TESTED A T [facility] 6720 (BEAKER) (test code = JEANETTE Goode [facility], 1538) [address]: Bevel Gear Generator Operator/Techni danay ID = [id number] for JIMENA MCKEON [id number] 06:47:00 Test Item Value Reference Range Interpretation Comments PHOSPHORUS (BEAKER) (test code = 2.4 mg/dL 2.3-4.7 604) [id number] 06:47:00 Test Item Value Reference Range Interpretation Comments MAGNESIUM (BEAKER) (test code = 2.0 mg/dL 1.6-2.6 627) BASIC METABOLIC [id number] 06:47:00 Test Item Value Reference Range Interpretation [...] 697) EGFR (BEAKER) (test 72 mL/min/1.73 ESTIMA LORA GFR IS code = 1092) sq m NOT ACCURATE CREATININE CLEARANCE IN PREDICTING GLOMERULAR FILTRATION RATE . ESTIMATED GFR I S NOT APPLICABLE FOR DIALYSIS PATIEN TS. OXYGEN SATURATION, [id number] 06:02:00 Test Item Value Reference Range Interpretation Comments O2 SATURATION (MEASURED) (BEAKER) 74.3 % (test code = 1455) CBC W/PLT COUNT & AUTO [id number] 05:44:00 Test Item Value Reference Range Interpretation [...] PERCENT (BEAKER) (test code = 2801) POCT-GLUCOSE [id number] 21:26:00 Test Item Value Reference Range Interpretation Comments POC-GLUCOSE METER 259 mg/dL 70-110 H : TESTED A T [place] [address] ([facility]) (test code = [facility], 1538) [address]: Bevel Gear Generator Operator/Techni danay ID = [id number] for VITOR HACKETT POCT-GLUCOSE [id number] 12:05:00 Test Item Value Reference Range Interpretation Comments POC-GLUCOSE METER 142 mg/dL 70-110 H TESTED AT [place] [address] ([facility]) (test code = [facility] 1538) [address] POCT-GLUCOSE [id number] 12:01:00 Test Item Value Reference Range Interpretation Comments POC-GLUCOSE METER 146 mg/dL 70-110 H TESTED AT [facility] 6720 ([facility]) (test code = [facility] 1538) 10[address] POCT-GLUCOSE [id number] 12:01:00 Test Item Value Reference Range Interpretation Comments POC-GLUCOSE METER 159 mg/dL 70-110 H TESTED AT [place] [id number] ([facility]) (test code = [facility] 1538) [address] POCT-GLUCOSE [id number] 07:46:00 Test Item Value Reference Range Interpretation Comments POC-GLUCOSE METER 144 mg/dL 70-110 H TESTED AT [facility] 6720 (BEAKER) (test code = JEANETTE Goode [place] 1538) [address] POCT-GLUCOSE [id number] 07:46:00 Test Item Value Reference Range Interpretation Comments POC-GLUCOSE METER 139 mg/dL 70-110 H TESTED AT [place] [id number] (BEAKER) (test code = JEANETTE Goode [place] 1538) [address] POCT-GLUCOSE [id number] 07:46:00 Test Item Value Reference Range Interpretation Comments POC-GLUCOSE METER 154 mg/dL 70-110 H [facility] AT [place] [address] [facility] (test code = JEANETTE Goode [facility] 1538) [address] RAD, CHEST, 1 VIEW, NON [id number] 06:51:00Reason for exam:->Post ACBShould this be performed [...] Adriano Barrera MDReport Verified Date/Time: 07/22/2019 06:51:04 [id number] 04:53:00 Test Item Value Reference Range Interpretation Comments PHOSPHORUS (BEAKER) (test code = 3.0 mg/dL 2.3-4.7 604) [id number] 04:53:00 Test Item Value Reference Range Interpretation Comments MAGNESIUM (BEAKER) (test code = 1.5 mg/dL 1.6-2.6 L 627) BASIC METABOLIC [id number] 04:53:00 Test Item Value Reference Range Interpretation [...] 697) EGFR (BEAKER) (test 88 mL/min/1.73 ESTIMA LORA GFR IS code = 1092) sq m NOT ACCURATE CREATININE CLEARANCE IN PREDICTING GLOMERULAR FILTRATION RATE . ESTIMATED GFR I S NOT APPLICABLE FOR DIALYSIS PATIEN TS. BLOOD GAS, [id number] 04:50:00 Test Item Value Reference Range Interpretation [...] code = 1819) 36.0 % LACTIC ACID, [id number] 04:46:00 Test Item Value Reference Range Interpretation Comments LACTATE BLOOD ARTERIAL (2) 1.2 mmol/L 0.5-2.2 (BEAKER) (test code = 2874) CBC W/PLT COUNT & AUTO [id number] 04:43:00 Test Item Value Reference Range Interpretation [...] (BEAKER) (test code = 2801) OXYGEN SATURATION, [id number] 04:38:00 Test Item Value Reference Range Interpretation Comments O2 SATURATION (MEASURED) (BEAKER) 68.2 % (test code = 1455) CALCIUM, [id number] 04:35:00 Test Item Value Reference Range Interpretation Comments CALCIUM IONIZED (BEAKER) (test 1.14 mmol/L 1.12-1.27 code = 698) PH, BLOOD ([facility]) (test code = 7.37 1810) POCT-GLUCOSE [id number] 04:10:00 Test Item Value Reference Range Interpretation Comments POC-GLUCOSE METER 145 mg/dL 70-110 H TESTED AT [place] [address] ([facility]) (test code = [facility] 1538) 15406 POCT-GLUCOSE [id number] 04:10:00 Test Item Value Reference Range Interpretation Comments POC-GLUCOSE METER 136 mg/dL 70-110 H TESTED AT [place] [address] ([facility]) (test code = [facility] 1538) [address] POCT-GLUCOSE [id number] 23:42:00 Test Item Value Reference Range Interpretation Comments POC-GLUCOSE METER 133 mg/dL 70-110 H TESTED AT [place] [address] ([facility]) (test code = [facility] 1538) [address] POCT-GLUCOSE [id number] 23:42:00 Test Item Value Reference Range Interpretation Comments POC-GLUCOSE METER 163 mg/dL 70-110 H TESTED AT [place] [address] ([facility]) (test code = [facility] 1538) [address]95 POCT-GLUCOSE [id number] 23:42:00 Test Item Value Reference Range Interpretation Comments POC-GLUCOSE METER 170 mg/dL 70-110 H TESTED AT [place] [address] ([facility]) (test code = [facility] 1538) 39799 LACTIC ACID, [id number] 21:25:00 Test Item Value Reference Range Interpretation Comments LACTATE BLOOD ARTERIAL (2) 1.3 mmol/L 0.5-2.2 (BEAKER) (test code = 2874) CALCIUM, [id number] 21:12:00 Test Item Value Reference Range Interpretation Comments CALCIUM IONIZED (BEAKER) (test 1.15 mmol/L 1.12-1.27 code = 698) PH, BLOOD (BEAKER) (test code = 7.39 1810) BLOOD GAS, [id number] 21:12:00 Test Item Value Reference Range Interpretation [...] (BEAKER) (test code = 1819) 4L GLUCOSE-STAT [id number] 21:12:00 Test Item Value Reference Range Interpretation Comments GLUCOSE RANDOM (BEAKER) (test code 162 mg/dL 70-110 H = 652) HGB/HCT (H&H) - STAT [id number] 21:12:00 Test Item Value Reference Range Interpretation Comments HEMOGLOBIN (BEAKER) (test code = 9.7 g/dL 13.0-16.8 L 410) HEMATOCRIT (BEAKER) (test code = 29.0 % 40.0-50.0 L 411) OXYGEN SATURATION, [id number] 21:11:00 Test Item Value Reference Range Interpretation Comments O2 SATURATION (MEASURED) (BEAKER) 65.2 % (test code = 1455) SODIUM NA-STAT [id number] 21:11:00 Test Item Value Reference Range Interpretation Comments SODIUM (BEAKER) (test code = 381) 135 meq/L 135-148 POTASSIUM-STAT [id number] 21:11:00 Test Item Value Reference Range Interpretation Comments POTASSIUM (BEAKER) (test code = 3.8 meq/L 3.6-5.5 379) POCT-GLUCOSE [id number] 18:34:00 Test Item Value Reference Range Interpretation Comments POC-GLUCOSE METER 191 mg/dL 70-110 H TESTED AT [facility] 6720 [facility] (test code = JEANETTE HINSON 1538) [address] POCT-GLUCOSE [id number] 18:17:00 Test Item Value Reference Range Interpretation Comments POC-GLUCOSE METER 188 mg/dL 70-110 H TESTED AT [facility] 6720 [facility] (test code = JEANETTE HINSON 1538) [address] POCT-GLUCOSE [id number] 17:55:00 Test Item Value Reference Range Interpretation Comments POC-GLUCOSE METER 198 mg/dL 70-110 H TESTED AT [facility] 6720 (BEAKER) (test code = [place]ETTE [place] 1538) [address] BLOOD GAS, [id number] 15:28:00 Test Item Value Reference Range Interpretation [...] (test code = 1819) 40.0 % GLUCOSE-STAT [id number] 15:28:00 Test Item Value Reference Range Interpretation Comments GLUCOSE RANDOM (BEAKER) (test code 203 mg/dL 70-110 H = 652) HGB/HCT (H&H) - STAT [id number] 15:28:00 Test Item Value Reference Range Interpretation Comments HEMOGLOBIN (BEAKER) (test code = 9.5 g/dL 13.0-16.8 L 410) HEMATOCRIT (BEAKER) (test code = 28.0 % 40.0-50.0 L 411) SODIUM NA-STAT [id number] 15:27:00 Test Item Value Reference Range Interpretation Comments SODIUM (BEAKER) (test code = 381) 135 meq/L 135-148 POTASSIUM-STAT [id number] 15:27:00 Test Item Value Reference Range Interpretation Comments POTASSIUM (BEAKER) (test code = 3.5 meq/L 3.6-5.5 L 379) POCT-GLUCOSE [id number] 14:10:00 Test Item Value Reference Range Interpretation Comments POC-GLUCOSE METER 231 mg/dL 70-110 H TESTED AT [facility] 6720 (BEAKER) (test code = [place]ETTE [place] 1538) [address] RAD, CHEST, 1 VIEW, NON [id number] 13:24:00Reason for exam:->Post ACBShould this be performed at the bedside?->YesFINAL REPORT CLINICAL HISTORY: Post ACB TECHNIQUE: 1 view of the chest. COMPARISON: 07/20/2019 IMPRESSION: The patient is status post median sternotomy with an endotracheal tube atthe clavicles, a right Mora-Dontrell catheter with its tip directed in the pulmonary outflow tract, a nasogastric tube in the stomach, and left-sided chest tubes. There is no pneumothorax. There is new pulmonary vascular congestion. There is new left lower lung consolidation. Pleural effusions cannot be excluded. A pacemaker is again seen. Signed: Laura Mercer MDReport Verified Date/Time: 07/21/2019 13:24:31 Reading Location: [facility] Radiology Reading Room [id number] 13:15:00 Test Item Value Reference Range Interpretation Comments MAGNESIUM (BEAKER) 1.4 mg/dL 1.6-2.6 L Specimen slightly (test code = 627) hemolyzed [id number] 13:15:00 Test Item Value Reference Range Interpretation Comments PHOSPHORUS (BEAKER) 2.2 mg/dL 2.3-4.7 L Specimen slightly (test code = 604) hemolyzed [id number] 13:15:00 Test Item Value Reference Range Interpretation Comments POTASSIUM (BEAKER) 3.9 meq/L 3.5-5.1 Specimen slightly (test code = 379) hemolyzed [id number] 13:15:00 Test Item Value Reference Range Interpretation Comments GLUCOSE RANDOM (BEAKER) (test code 233 mg/dL 70-105 H = 652) BASIC METABOLIC [id number] 13:15:00 Test Item Value Reference Range Interpretation [...] 697) EGFR (BEAKER) (test 75 mL/min/1.73 ESTIMA LORA GFR IS code = 1092) sq m NOT ACCURATE CREATININE CLEARANCE IN PREDICTING GLOMERULAR FILTRATION RATE . ESTIMATED GFR I S NOT APPLICABLE FOR DIALYSIS PATIEN TS. LACTIC ACID, [id number] 13:12:00 Test Item Value Reference Range Interpretation Comments LACTATE BLOOD 1.7 mmol/L 0.5-2.2 Specimen sligh tly ARTERIAL (2) (BEAKER) hemoly zed (test code = 2874) PROTHROMBIN [id number] 13:04:00 Test Item Value Reference Range Interpretation [...] is 2.5-3.5 for patients wiht mechanical heart valves.[id number] 13:04:00 Test Item Value Reference Range Interpretation Comments FIBRINOGEN LEVEL (BEAKER) (test 257 mg/dl 225-434 code = 658) [id number] 13:04:00 Test Item Value Reference Range Interpretation Comments PARTIAL THROMBOPLASTIN TIME 33.1 seconds 22.5-36.0 (BEAKER) (test code = 760) [id number] 12:57:00 Test Item Value Reference Range Interpretation Comments ACTIVATED CLOTTING TIME 109 sec Refe rence Range: 74-137 (BEAKER) (test code = second s, 441) Baseline/TESTED AT [address] [address] [id number] 12:57:00 Test Item Value Reference Range Interpretation Comments ACTIVATED CLOTTING TIME 532 sec Refe rence Range: 74-137 (BEAKER) (test code = second s, 441) Baseline/TESTED AT [address] [address] [id number] 12:57:00 Test Item Value Reference Range Interpretation Comments ACTIVATED CLOTTING TIME 483 sec Refe rence Range: 74-137 (BEAKER) (test code = second s, 441) Baseline/TESTED AT [address] [address] [id number] 12:57:00 Test Item Value Reference Range Interpretation Comments ACTIVATED CLOTTING TIME > sec Refe rence Range: 74-137 (BEAKER) (test code = second s, Baseline/OUTSIDE 441) MEASURING RANGE TESTED AT [address] [address] CALCIUM, [id number] 12:53:00 Test Item Value Reference Range Interpretation Comments CALCIUM IONIZED (BEAKER) (test 1.11 mmol/L 1.12-1.27 L code = 698) PH, BLOOD (BEAKER) (test code = 7.32 1810) BLOOD GAS, [id number] 12:53:00 Test Item Value Reference Range Interpretation [...] 60.0 % CBC W/PLT COUNT & AUTO [id number] 12:51:00 Test Item Value Reference Range Interpretation [...] (BEAKER) (test code = 2801) OXYGEN SATURATION, [id number] 12:50:00 Test Item Value Reference Range Interpretation Comments O2 SATURATION (MEASURED) (BEAKER) 83.0 % (test code = 1455) BLOOD GAS, [id number] 10:53:00 Test Item Value Reference Range Interpretation [...] code = 1819) 100.0 % SODIUM NA-STAT [id number] 10:53:00 Test Item Value Reference Range Interpretation Comments SODIUM (BEAKER) (test code = 381) 130 meq/L 135-148 L GLUCOSE-STAT [id number] 10:53:00 Test Item Value Reference Range Interpretation Comments GLUCOSE RANDOM (BEAKER) (test code 248 mg/dL 70-110 H = 652) HGB/HCT (H&H) - STAT [id number] 10:53:00 Test Item Value Reference Range Interpretation Comments HEMOGLOBIN (BEAKER) (test code = 9.0 g/dL 13.0-16.8 L 410) HEMATOCRIT (BEAKER) (test code = 26.0 % 40.0-50.0 L 411) POTASSIUM-STAT [id number] 10:52:00 Test Item Value Reference Range Interpretation Comments POTASSIUM (BEAKER) (test code = 4.3 meq/L 3.6-5.5 379) CALCIUM, [id number] 10:51:00 Test Item Value Reference Range Interpretation Comments CALCIUM IONIZED (BEAKER) (test 1.24 mmol/L 1.12-1.27 code = 698) PH, BLOOD (BEAKER) (test code = 7.42 1810) BLOOD GAS, [id number] 10:03:00 Test Item Value Reference Range Interpretation [...] code = 1819) 70.0 % SODIUM NA-STAT [id number] 10:03:00 Test Item Value Reference Range Interpretation Comments SODIUM (BEAKER) (test code = 381) 132 meq/L 135-148 L GLUCOSE-STAT [id number] 10:03:00 Test Item Value Reference Range Interpretation Comments GLUCOSE RANDOM (BEAKER) (test code 239 mg/dL 70-110 H = 652) HGB/HCT (H&H) - STAT [id number] 10:03:00 Test Item Value Reference Range Interpretation Comments HEMOGLOBIN (BEAKER) (test code = 8.5 g/dL 13.0-16.8 L 410) HEMATOCRIT (BEAKER) (test code = 25.0 % 40.0-50.0 L 411) POTASSIUM-STAT [id number] 10:02:00 Test Item Value Reference Range Interpretation Comments POTASSIUM (BEAKER) (test code = 5.5 meq/L 3.6-5.5 379) HGB/HCT (H&H) - STAT [id number] 09:38:00 Test Item Value Reference Range Interpretation Comments HEMOGLOBIN (BEAKER) (test code = 8.4 g/dL 13.0-16.8 L 410) HEMATOCRIT (BEAKER) (test code = 25.0 % 40.0-50.0 L 411) POTASSIUM-STAT [id number] 09:37:00 Test Item Value Reference Range Interpretation Comments POTASSIUM (BEAKER) (test code = 4.9 meq/L 3.6-5.5 379) BLOOD GAS, [id number] 09:37:00 Test Item Value Reference Range Interpretation [...] (test code = 1819) 80.0 % GLUCOSE-STAT [id number] 09:37:00 Test Item Value Reference Range Interpretation Comments GLUCOSE RANDOM (BEAKER) (test code 258 mg/dL 70-110 H = 652) SODIUM NA-STAT [id number] 09:37:00 Test Item Value Reference Range Interpretation Comments SODIUM (BEAKER) (test code = 381) 132 meq/L 135-148 L GLUCOSE-STAT [id number] 09:16:00 Test Item Value Reference Range Interpretation Comments GLUCOSE RANDOM (BEAKER) (test code 179 mg/dL 70-110 H = 652) POTASSIUM-STAT [id number] 08:35:00 Test Item Value Reference Range Interpretation Comments POTASSIUM (BEAKER) (test code = 4.2 meq/L 3.6-5.5 379) BLOOD GAS, [id number] 08:35:00 Test Item Value Reference Range Interpretation [...] code = 1819) 100.0 % SODIUM NA-STAT [id number] 08:35:00 Test Item Value Reference Range Interpretation Comments SODIUM (BEAKER) (test code = 381) 134 meq/L 135-148 L GLUCOSE-STAT [id number] 08:35:00 Test Item Value Reference Range Interpretation Comments GLUCOSE RANDOM (BEAKER) (test code 256 mg/dL 70-110 H = 652) HGB/HCT (H&H) - STAT [id number] 08:35:00 Test Item Value Reference Range Interpretation Comments HEMOGLOBIN (BEAKER) (test code = 12.5 g/dL 13.0-16.8 L 410) HEMATOCRIT (BEAKER) (test code = 37.0 % 40.0-50.0 L 411) CALCIUM, [id number] 08:34:00 Test Item Value Reference Range Interpretation Comments CALCIUM IONIZED (BEAKER) (test 1.22 mmol/L 1.12-1.27 code = 698) PH, BLOOD (BEAKER) (test code = 7.36 1810) POCT-GLUCOSE [id number] 05:41:00 Test Item Value Reference Range Interpretation Comments POC-GLUCOSE METER 283 mg/dL 70-110 H TESTED AT [facility] 6720 (BEAKER) (test code = JEANETTE H[place] 1532) [address] [id number] 05:31:00 Test Item Value Reference Range Interpretation Comments MAGNESIUM (BEAKER) 1.7 mg/dL 1.6-2.6 Specimen slightly (test code = 627) hemolyzed BASIC METABOLIC [id number] 05:31:00 Test Item Value Reference Range Interpretation [...] 697) EGFR (BEAKER) (test 61 mL/min/1.73 ESTIMA LORA GFR IS code = 1092) sq m NOT ACCURATE CREATININE CLEARANCE IN PREDICTING GLOMERULAR FILTRATION RATE . ESTIMATED GFR I S NOT APPLICABLE FOR DIALYSIS PATIEN TS. CBC W/PLT COUNT & AUTO [id number] 05:14:00 Test Item Value Reference Range Interpretation [...] = 2801) RAD, CHEST, 1 VIEW, NON [id number] 02:56:00Reason for exam:->pre opShould this be performed [...] no acute bony abnormality. Signed: Adriano Barrera MDReport Verified Date/Time: 07/21/2019 02:56:45 POCT-GLUCOSE [id number] 22:59:00 Test Item Value Reference Range Interpretation Comments POC-GLUCOSE METER 234 mg/dL 70-110 H TESTED AT [facility] 6720 ([facility]) (test code = [place]ETTE [place] 1538) [address] POCT-GLUCOSE [id number] 21:29:00 Test Item Value Reference Range Interpretation Comments POC-GLUCOSE METER 312 mg/dL 70-110 H TESTED AT [place] [address] [facility] (test code = JEANETTE Goode [place] 1538) [address] POCT-GLUCOSE [id number] 18:52:00 Test Item Value Reference Range Interpretation Comments POC-GLUCOSE METER 331 mg/dL 70-110 H TESTED AT [place] [address] ([facility] (test code = JEANETTE Goode [place] 1538) [address] POCT-GLUCOSE [id number] 13:12:00 Test Item Value Reference Range Interpretation Comments POC-GLUCOSE METER 260 mg/dL 70-110 H TESTED AT [place] [address] ([facility]) (test code = JEANETTE Goode [facility] 1538) [address] HEMOGLOBIN [id number] 09:23:00 Test Item Value Reference Range Interpretation Comments HEMOGLOBIN A1C (BEAKER) (test code = 9.2 % 4.3-6.1 H 368) POCT-GLUCOSE [id number] 09:07:00 Test Item Value Reference Range Interpretation Comments POC-GLUCOSE METER 199 mg/dL 70-110 H TESTED AT [place] [address] ([facility] (test code = JEANETTE Goode [facility] 1538) [address] [id number] 05:27:00 Test Item Value Reference Range Interpretation Comments MAGNESIUM (BEAKER) (test code = 1.9 mg/dL 1.6-2.6 627) COMPREHENSIVE METABOLIC [id number] 05:27:00 Test Item Value Reference Range Interpretation [...] 347) EGFR (BEAKER) (test 65 mL/min/1.73 ESTIMA LORA GFR IS code = 1092) sq m NOT ACCURATE CREATININE CLEARANCE IN PREDICTING GLOMERULAR FILTRATION RATE . ESTIMATED GFR I S NOT APPLICABLE FOR DIALYSIS PATIZHOU TS. [id number] 05:10:00 Test Item Value Reference Range Interpretation Comments PARTIAL THROMBOPLASTIN TIME 34.8 seconds 22.5-36.0 (BEAKER) (test code = 760) PROTHROMBIN [id number] 05:09:00 Test Item Value Reference Range Interpretation [...] mechanical heart valves.CBC W/PLT COUNT & AUTO [id number] 04:57:00 Test Item Value Reference Range Interpretation [...] PERCENT (BEAKER) (test code = 2801) POCT-GLUCOSE [id number] 21:25:00 Test Item Value Reference Range Interpretation Comments POC-GLUCOSE METER 232 mg/dL 70-110 H TESTED AT [facility] 6720 (BEAKER) (test code = [facility] 1538) [address] POCT-GLUCOSE [id number] 18:18:00 Test Item Value Reference Range Interpretation Comments POC-GLUCOSE METER 165 mg/dL 70-110 H TESTED AT [facility] 6720 (BEAKER) (test code = [facility] 1538) [address] POCT-GLUCOSE [id number] 12:00:00 Test Item Value Reference Range Interpretation Comments POC-GLUCOSE METER 301 mg/dL 70-110 H TESTED AT [place] [address] (BEAKER) (test code = [facility] 1538) [address] POCT-GLUCOSE [id number] 08:49:00 Test Item Value Reference Range Interpretation Comments POC-GLUCOSE METER 233 mg/dL 70-110 H TESTED AT [place] [address] (BEAKER) (test code = [facility] 1538) [address] [id number] 06:17:00 Test Item Value Reference Range Interpretation Comments MAGNESIUM (BEAKER) (test code = 1.6 mg/dL 1.6-2.6 627) BASIC METABOLIC [id number] 06:17:00 Test Item Value Reference Range Interpretation [...] 697) EGFR (BEAKER) (test 63 mL/min/1.73 ESTIMA LORA GFR IS code = 1092) sq m NOT ACCURATE CREATININE CLEARANCE IN PREDICTING GLOMERULAR FILTRATION RATE . ESTIMATED GFR I S NOT APPLICABLE FOR DIALYSIS PATIEN TS. CBC W/PLT COUNT & AUTO [id number] 05:38:00 Test Item Value Reference Range Interpretation [...] PERCENT (BEAKER) (test code = 2801) POCT-GLUCOSE [id number] 21:36:00 Test Item Value Reference Range Interpretation Comments POC-GLUCOSE METER 227 mg/dL 70-110 H TESTED AT [facility] (test code = [facility] 1538) [address] POCT-GLUCOSE [id number] 18:27:00 Test Item Value Reference Range Interpretation Comments POC-GLUCOSE METER 377 mg/dL 70-110 H TESTED AT [place] [address] ([facility]) (test code = [facility] 1538) [address] POCT-GLUCOSE [id number] 16:56:00 Test Item Value Reference Range Interpretation Comments POC-GLUCOSE METER 344 mg/dL 70-110 H TESTED AT [place] [address] ([facility]) (test code = [facility] 1538) 62019 POCT-GLUCOSE [id number] 13:01:00 Test Item Value Reference Range Interpretation Comments POC-GLUCOSE METER 206 mg/dL 70-110 H TESTED AT [place] [address] ([facility]) (test code = [facility] 1538) [address]327 HEMOGLOBIN [id number] 11:33:00 Test Item Value Reference Range Interpretation Comments HEMOGLOBIN A1C (BEAKER) (test code = 9.0 % 4.3-6.1 H 368) [id number] 07:15:00 Test Item Value Reference Range Interpretation Comments PHOSPHORUS (BEAKER) (test code = 2.9 mg/dL 2.3-4.7 604) [id number] 07:15:00 Test Item Value Reference Range Interpretation Comments MAGNESIUM (BEAKER) (test code = 1.4 mg/dL 1.6-2.6 L 627) BASIC METABOLIC [id number] 07:15:00 Test Item Value Reference Range Interpretation [...] 697) EGFR (BEAKER) (test 55 mL/min/1.73 ESTIMA OLRA GFR IS code = 1092) sq m NOT ACCURATE CREATININE CLEARANCE IN PREDICTING GLOMERULAR FILTRATION RATE . ESTIMATED GFR I S NOT APPLICABLE FOR DIALYSIS PATIEN TS. CBC W/PLT COUNT & AUTO [id number] 06:22:00 Test Item Value Reference Range Interpretation [...] PERCENT (BEAKER) (test code = 2801) POCT-GLUCOSE [id number] 23:15:00 Test Item Value Reference Range Interpretation Comments POC-GLUCOSE METER 317 mg/dL 70-110 H TESTED AT [place] [address] ([facility]) (test code = [facility] 1538) [address] POCT-GLUCOSE [id number] 18:43:00 Test Item Value Reference Range Interpretation Comments POC-GLUCOSE METER 341 mg/dL 70-110 H TESTED AT [place] [address] ([facility]) (test code = [facility] 1538) [id number] POCT-GLUCOSE [id number] 12:29:00 Test Item Value Reference Range Interpretation Comments POC-GLUCOSE METER 320 mg/dL 70-110 H TESTED AT [place] [address] ([facility]) (test code = [facility] 1538) [address]010 POCT-GLUCOSE [id number] 08:52:00 Test Item Value Reference Range Interpretation Comments POC-GLUCOSE METER 258 mg/dL 70-110 H TESTED AT [place] [address] ([facility]) (test code = [facility] 1538) [address] TROPONIN [id number] 05:36:00 Test Item Value Reference Range Interpretation Comments TROPONIN I ([facility]) (test code = 1.86 ng/mL 0.00-0.03 [facility]) Troponin I (TnI) levels must be interpreted [...] failure, acidosis, acute neurological disease, and persistent tachyarrhythmia.[id number] 05:12:00 Test Item Value Reference Range Interpretation Comments PHOSPHORUS (BEAKER) (test code = 2.9 mg/dL 2.3-4.7 604) [id number] 05:12:00 Test Item Value Reference Range Interpretation Comments MAGNESIUM (BEAKER) (test code = 1.4 mg/dL 1.6-2.6 L 627) BASIC METABOLIC [id number] 05:12:00 Test Item Value Reference Range Interpretation [...] 697) EGFR (BEAKER) (test 61 mL/min/1.73 ESTIMA LORA GFR IS code = 1092) sq m NOT ACCURATE CREATININE CLEARANCE IN PREDICTING GLOMERULAR FILTRATION RATE . ESTIMATED GFR I S NOT APPLICABLE FOR DIALYSIS PATIEN TS. CBC W/PLT COUNT & AUTO [id number] 04:47:00 Test Item Value Reference Range Interpretation [...] 0-1 PERCENT (BEAKER) (test code = 2801) Consult Notes Date/Time Note Provider Source 2023-04-20 [id number]:30:59Associated IM-ENDOCRINOLOGY,D [facility] - [facility] 14:30:59 Order(s): CONSULT IABETES & ENDOCRINOLOGYFormatting of this METABOLISM STAFF note is different from the original.Endocrinology Consult NoteConsultation requested by: Service: ENTReason for Consultation: Diabetes managementDate of Service: 04/20/2023HPI 68 year old male presented with PMH of type 2 diabetes with A1c 9.9%, HFrEF (10-15%), CAD s/p CABG 2014 and AICD placement, HLD, who was recently admitted for chronic osteomyelitis of the jaw and malignant otitis externa, now admitted 04/20 for left tympanomastoidectomy, bilateral myringotomy and tube placement.. Endocrinology was consulted for diabetes management. Patient seen in [facility] Type and year diagnosed: type 2 diagnosed over 20 years agoHx of DM regimen from chart review as patient unable to confirm at this time: At last discharge, stopped glimepirideMetformin 1 g twice day Lantus 30 units dailyLispro 6 units TID meals + SSI 1:40Previously on Victoza (has not taken it in 9 months)Living situation and support: [facility] doctor: PCPFamily hx of diabetes: both parents with type 2 HX of glucocorticoid use: yes, has received multiple medrol dose packs recently since symptoms began in X of transfusions or EPO in last 6 months: noPAST MEDICAL HISTORY Past Medical History: Diagnosis Date Caro's palsy left face BPH (benign prostatic hyperplasia) CHF (congestive heart failure) Chronic anemia Chronic midline low back pain without sciatica 2020 pain management-Dr. 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 trauma from arrow History of MD (myocardial infarction) 07/17/2019 Hyperlipemia Hypertension Stable angina Past Surgical History: Procedure Laterality Date CARDIOVERTER DEFIBRILLATOR LEAD PLACEMENT (SHX) 01/22/2015 Medtronic-Evera XT VR Defibrillator-SN:[id number] (Model:[id number]) and SN:[id number] (Model:[id number]) CORONARY ARTERY BYPASS GRAFT 2007 x 3 (COSBY to LAD, saphenous vein to OM1 and saphenous vein to diagonal) EYE SURGERY 1958 STENT PLACEMENT (SHX) 2007 Family History Problem Relation Age of Onset Diabetes Mother Heart Mother Diabetes Father Heart Father Diabetes Sister MD (myocardial infarction) Sister 45 DM type 1 Diabetes Brother Social History Tobacco Use Smoking status: Never Smokeless tobacco: Never Substance Use Topics Alcohol use: Yes Alcohol/week: 12.0 standard drinks of alcohol Types: 12 Cans of beer per week Drug use: No ALLERGIESEmpagliflozin, Tree pollen-white oak, and SpironolactoneREVIEW OF SYSTEMSUnable to obtain PHYSICALEXAMBP (!) 137/91 | Pulse 80 | Temp 36.4 ?C (97.5 ?F) (Tympanic) | Resp 18 | Ht 1.676 m (5' 6") | Wt 90.1 kg (198 lb 9.6 oz) | SpO2 95% | BMI 32.05 kg/m? General: Patient appears in no apparent distress, lethargic in PACUHEENT: dressing in place on left earLungs: clear to auscultation, no accessory muscle useCardiovascular: RRR Abdomen: soft, nontenderMusculoskeletal: no tenderness or deformitiesIntegumentary: warm, dry, (-) cervical acanthosisNeuro: oriented to name, no tremors, no focal deficitsPsych: CooperativeLABORATORYThere are no current results on file for these tests and/or test for 1 year.Recent Labs HGBA1C 9.9* BMPRecent Labs NA 138 K 5.1* CA 10.1 CL 100 BUN 20 CREAT 0.72 GLU 153* TCO2 25 ALB 4.1 Lab Results Component Value Date/Time POC GLU 186 (H) 04/20/2023 10:07 AM Recent Labs CHOL 93* LDL 33 HDL 27* TRIG 166 HOSPITAL MEDICATIONSScheduled meds:acetaminophen, 650 mg, P8Etexkxtkkfm tears (hypromellose), 1 Drop, QHS[START ON 04/21/2023] aspirin, 81 mg, DAILYatorvastatin, 80 mg, QHScarvediloL, 12.5 mg, BID MEALSenoxaparin (LOVENOX) SC Syringe, 40 mg, DAILY[START ON 04/21/2023] ezetimibe, 10 mg, DAILY[START ON 04/21/2023] famotidine, 40 mg, DAILY[START ON 04/21/2023] fenofibrate micronized, 134 mg, DAILY[START ON 04/21/2023] fluconazole, 400 mg, DAILY[START ON 04/21/2023] furosemide, 40 mg, DAILYgabapentin, 300 mg, TID[START ON 04/21/2023] lisinopriL, 20 mg, DAILY[START ON 04/21/2023] polyethylene glycol 3350, 17 g, DAILY[START ON 04/21/2023] sennosides-docusate sodium, 2 tablet, DAILY[START ON 04/21/2023] tamsulosin, 0.4 mg, DAILYIV meds: PRN meds:artificial tears(hypromellose), 1 Drop, PRNcyclobenzaprine, 10 mg, TIDPRNdiclofenac, 50 mg, TIDPRN MEALSlidocaine-epinephrine, , PRNofloxacin, , PRNondansetron, 4 mg, I4UKKQchcHYTOZX, 10 mg, [id number] and PLANProblem List:Uncontrolled Type 2 diabetes (A1c 9.9%) recently discharged on home insulinStress hyperglycemiaLeft sided malignant otitis externaChronic mastoiditis with osteomyelitis and nerve involvement s/p left tympanomastoidectomy, bilateral myringotomy and tube placementCAD s/p CABGHFrEFHTNHLD controlled on statinObesity bMI 32Comments: 68 year old male presented with PMH of type 2 diabetes with A1c 9.9%, HFrEF (10-15%), CAD s/p CABG 2014 and AICD placement, HLD, who was recently admitted for chronic osteomyelitis of the jaw and malignant otitis externa, now admitted 04/20 for left tympanomastoidectomy, bilateral myringotomy and tube placement.. Endocrinology was consulted for diabetes management. .BG & Insulin Data:BG trend: 186 mg/dLWe will start 80% of recent home regimen of TDD 48, for new TDD of 38. Will place 60% as basal and 40% as prandial for when patient is able to eatRECOMMENDATIONS: Lantus 23 units daily- Give half dose if patient NPO or if BG 80 - 120 mg/dL.- Hold dose if BG <80 mg/dL.Lispro 5 units TID meals- Give half dose if patient eats less than half meal OR if BG 80 - 120 mg/dL. - HOLD DOSE if NPO or BG < 80 mg/dL. Please give at end of meal if not sure if patient will eat. Sliding scale, SSI 1:40 - Give lispro sliding scale Q4H; may give even if NPO. Blood glucose : 160 to 200, give 1 unit. Blood glucose : 201 to 240, give 2 units. Blood glucose : 241 to 280, give 3 units. Blood glucose : 281 to 300, give 4 units. Blood glucose : Above 300, give 5 units, recheck in 3 hours and cover again with sliding scale. - Case discussed and patient seen with Dr. Ewing.Rosangela Cisneros, DOEndocrinology Fellow, PGY 4--Faculty Attestation:I personally examined this patient on 04/20 and agree with 's fellow note as written and revised. I actively participated in the decision-making process. Please see the resident's note for additional details. Aris Ewing, [facility] HOSPITALivision of Endocrinology and Metabolism [id number] [id number]:57:19Consult [id number]. [id number] for patient careIM-ENDOCRINOLOGY,DIABETES & METABOLISM STAFFIM-ENDOCRINOLOGY,DIABETES & METABOLISM STAFF[address] Ds[id number] 6:57:[id number]|1.2 .[id number] 2023-04-20 [id number]:25:18Associated IM-INTERNAL [facility] 13:25:18 Order(s): CONSULT SURGICAL MEDICINE STAFF CO-MANAGEMENT (SCM) Images from the original note were not included.Surgical Co-Management Hospitalist (SCM) Consult ServiceInitial Postop Consultation NotePatient: Jodi KarennaMRN: [id number] Date of Consult: 04/20/2023 Referring Physician: Dr Powers for Consult: Medical co-managementHPI: The patient is a 68-year-old male with history of heart failure with reduced ejection fraction (10-15%) status post AICD, R eye prosthesis, hypertension, hyperlipidemia, type 2 diabetes, CAD with prior stenting and CABG, peripheral artery disease, NIKI who is known to [facility] service due to recent admission on 04/04/23. He has had chronic left malignant otitis externa w/ mastoid effusion who developed a facial palsy in January- stroke w/u neg, he continued to have worsening pain in the area ultimately was admitted for pain control and further evaluation by ENT given he has failed multiple outpatient therapies. During that admission he was evaluated by ID, Endocrine as he needed insulin on discharge, he was started on broad spectrum abx, MRI was planned but unable to be done to evaluation his mastoiditis due to incompatible AICD/Pacer. He ultimately underwent nuclear bone scan on 04/09/23 which was concerning for chronic osteomyelitis of the mastoid. He was evaluated outpatient for hyperbaric oxygen therapy but the risks seemed to be greater than the benefits/ noted to be contraindicated due to his CHF. Ultimately scheduled for surgery today 04/20 as he needed to be off his asa/plavix for the procedure, he was discharged on insulin as well as IV vanc, cefepime and flagyl. After discharge his ear cultures grew Binta and he was placed on oral fluconazole & clotrimazole ear drops. Patient was seen in the PACU, he was drowsy and unable to give much HPI or ROS. Surgery, Date: 3Procedure(s) (LRB):MASTOIDECTOMY (Left)MYRINGOTOMY WITH TUBE INSERTION (Left)3 Hr 35 Min 53 SecSurgical and Procedural Summary Past and Present Procedures (03/21/2023 to Today) Date Procedure/Visit Type Providers Status 04/20/2023 MASTOIDECTOMYMYRINGOTOMY WITH TUBE INSERTION Herbert Valle MeganMomin, Nishat OR HISTORIES (personally reviewed by me):Active Ambulatory Problems Diagnosis Date Noted Anemia of chronic disease 02/06/2022 Benign prostatic hyperplasia without lower urinary tract symptoms 02/03/2022 Coronary artery disease involving northway coronary artery of northway heart without angina pectoris 10/01/2007 AICD (automatic cardioverter/defibrillator) present 10/01/2014 Hemoglobin A1C greater than 9%, indicating poor diabetic control 02/28/2023 Primary hypertension 02/03/2022 Presence of aortocoronary bypass graft 10/01/2018 Obesity (BMI 30-39.9) 03/07/2023 Bilateral carotid artery stenosis 03/07/2023 Mastoiditis, chronic, left 04/04/2023 Hypercholesterolemia 02/03/2022 shelter (current) use of antithrombotics/antiplatelets 04/07/2023 Chronic HFrEF (heart failure with reduced ejection fraction) 04/08/2023 Otitis externa due to Pseudomonas aeruginosa 04/09/2023 Immunocompromised status associated with infection 04/09/2023 Resolved Ambulatory Problems Diagnosis Date Noted Acute on chronic systolic heart failure 02/28/2023 History of MD (myocardial infarction) 07/17/2019 Thrombocytopenia 02/28/2023 Past Medical History: Diagnosis Date Caro's palsy BPH (benign prostatic hyperplasia) CHF (congestive heart failure) Chronic anemia Chronic midline low back pain without sciatica 2020 Coronary arteriosclerosis Diabetes mellitus History of enucleation of eye 1958 Hyperlipemia Hypertension Stable angina Past Surgical History: Procedure Laterality Date CARDIOVERTER DEFIBRILLATOR LEAD PLACEMENT (SHX) 01/22/2015 Medtronic-Evera XT VR Defibrillator-SN:[id number] (Model:[id number]) and SN:[id number] (Model:[id number]) CORONARY ARTERY BYPASS GRAFT 2007 x 3 (COSBY to LAD, saphenous vein to OM1 and saphenous vein to diagonal) EYE SURGERY 1958 STENT PLACEMENT (SHX) 2007 Social History Socioeconomic History Marital status: Spouse name: Not on file Number of children: Not on file Years of education: Not on file Highest education level: Not on file Occupational History Not on file Tobacco Use Smoking status: Never Smokeless tobacco: Never Substance and Sexual Activity Alcohol use: Yes Alcohol/week: 12.0 standard drinks of alcohol Types: 12 Cans of beer per week Drug use: No Sexual activity: Not on file Other Topics Concern Not on file Social History Narrative He lives with his and 2 children. He's retired. He's somewhat active. Social Determinants of Health Financial Resource Strain: Low Risk (04/05/2023) Overall Financial Resource Strain (CARDIA) Difficulty of Paying Living Expenses: Not hard at all Food Insecurity: No Food Insecurity (04/05/2023) Hunger Vital Sign Worried About Running Out of Food in the Last Year: Never true Ran Out of Food in the Last Year: Never true Transportation Needs: No Transportation Needs (04/05/2023) PRAPARE - Transportation Lack of Transportation (Medical): No Lack of Transportation (Non-Medical): No Physical Activity: Insufficiently Active (04/05/2023) Exercise Vital Sign Days of Exercise per Week: 7 days Minutes of Exercise per Session: 10 min Stress: Not on file Social Connections: Unknown (04/05/2023) Social Connection and Isolation Panel [NHANES] Frequency of Communication with Friends and Family: More than three times a week Frequency of Social Gatherings with Friends and Family: Not on file Attends Oriental Orthodox Services: Not on file Active Member of Clubs or Organizations: Not on file Attends Club or Organization Meetings: Not on file Marital Status: Intimate Partner Violence: Not on file Housing Stability: Low Risk (04/05/2023) Housing Stability Vital Sign Unable to Pay for Housing in the Last Year: No Number of Places Lived in the Last Year: 1 Unstable Housing in the Last Year: No Family History Problem Relation Age of Onset Diabetes Mother Heart Mother Diabetes Father Heart Father Diabetes Sister MD (myocardial infarction) Sister 45 DM type 1 Diabetes Brother Home medications:Prior to Admission medications Medication Sig Start Date End Date Taking? Authorizing Provider gabapentin 300 mg capsule Take 1 capsule by mouth in the morning and 1 capsule at noon and 1 capsule in the evening. 04/12/23 Yes Kena Bojorquez MD Insulin Glargine 100 unit/mL (3 mL) injection inject 30 Units under the skin in the morning. 04/12/23 Yes Kena Bojorquez MD insulin lispro, human, 100 unit/mL injection inject 6 Units under the skin in the morning and 6 Units at noon and 6 Units in the evening. inject with meals. 04/12/23 Yes Kena Bojorquez MD mzhjwvkr-trhfaskbs-swszelrudickne 3.5-10,000-1 mg/mL-unit/mL-% otic susp Place 4 Drops in left ear in the morning and 4 Drops in the evening. 04/12/23 Yes Kena Bojorquez MD carvediloL 12.5 mg tablet Take 1 tablet by mouth in the morning and 1 tablet in the evening. Take with meals. 03/07/23 Yes Tiffanie Turner MD lisinopriL 40 mg tablet Take 0.5 tablets by mouth in the morning. 03/07/23 Yes Tiffanie Turner MD atorvastatin 80 mg tablet Take 1 tablet by mouth at bedtime. 11/02/22 Yes Tiffanie Turner MD fenofibrate 145 mg tablet Take 1 tablet by mouth in the morning. 11/02/22 Yes Tiffanie Turner MD icosapent ethyL (VASCEPA) 1 gram capsule Take 2 capsules by mouth in the morning and 2 capsules in the evening. 11/02/22 Yes Tiffanie Turner MD isosorbide mononitrate 30 mg 24 hr tablet Take 1 tablet by mouth in the morning. 11/02/22 Yes Tiffanie Turner MD furosemide 40 mg tablet Take 1 tablet by mouth in the morning. 09/13/22 Yes Tiffanie Turner MD WOHYGEE-ARZNXUXKY-FBRC ORAL Take by mouth daily. Yes Doctor Unassigned, [place] metFORMIN 1,000 mg tablet Take 1 tablet by mouth in the morning and 1 tablet in the evening. Take with meals. Yes Doctor Unassigned, [place] clotrimazole 1 % solution Apply to area(s) 2 (two) times daily for 10 days. 04/17/23 04/27/23 Jannette Andrade PAC fluconazole 200 mg tablet Take 2 tablets by mouth in the morning for 10 days. 04/17/23 04/27/23 Jannette Andrade PAC acetaminophen 325 mg tablet Take 2 tablets by mouth every 6 (six) hours. 04/12/23 04/11/24 Kena Bojorquez MD artificial tears, hypromellose, 0.3 % ophthalmic gel Place 1 Drop in left eye at bedtime. 04/12/23 Kena Bojorquez MD artificial tears,hypromellose, 0.5 % ophthalmic drops Place 1 Drop in left eye as needed for Dry eyes. 04/12/23 Kena Bojorquez MD blood sugar diagnostic (ACCU-CHEK GUIDE TEST STRIPS) strip Use as directed 04/12/23 Kena Bojorquez MD Blood-Glucose Meter (ACCU-CHEK GUIDE GLUCOSE METER) Misc Use as directed 04/12/23 Kena Bojorquez MD glucagon 1 mg/mL SolR injection 1 mg by Intramuscular route as needed (Blood Glucose < or = 70 mg/dL and patient is NPO, unable to swallow or has mental changes.). 04/12/23 Kena Bojorquez MD insulin lispro (HUMALOG KWIKPEN INSULIN) 100 unit/mL pen injector inject 6 Units under the skin in the morning and 6 Units at noon and 6 Units in the evening. inject before meals. 04/12/23 Kena Bojorquez MD lancets 33 gauge Misc Use as directed 04/12/23 Kena Bojorquez MD polyethylene glycol 3350 17 gram powder Take 1 Packet by mouth in the morning. 04/13/23 Kena Bojorquez MD sennosides-docusate sodium 8.6-50 mg per tablet Take 2 tablets by mouth in the morning. 04/13/23 Kena Bojorquez MD cyclobenzaprine 10 mg tablet TAKE 1 TABLET BY MOUTH THREE TIMES DAILY FOR 7 DAYS NEEDED FOR PAIN 01/23/23 Doctor Unassigned, [place] diclofenac 50 mg tablet Take 1 tablet by mouth 3 (three) times daily as needed for Pain (scale 7-10). 02/19/23 Daniel Mckinley MD clopidogreL 75 mg tablet Take 1 tablet by mouth in the morning. 11/02/22 Tiffanie Turner MD ezetimibe 10 mg tablet Take 1 tablet by mouth in the morning. 11/02/22 Tiffanie Turner MD liraglutide (VICTOZA 3-АЛЕКСАНДР SC) inject 1.8 mg under the skin daily. Doctor Unassigned, [place] tamsulosin 0.4 mg 24 hr capsule Take by mouth daily. Doctor Unassigned, [place] aspirin 81 mg EC tablet Take 1 tablet by mouth daily. 08/19/19 Tiffanie Turner MD nitroglycerin 0.[address] 1 tablet under the tongue every 5 (five) minutes as needed for Chest pain. 06/25/19 Tiffanie Turner MD UBIDECAR/FISH OIL/OMEGA-3/OSMIN (CO N39-OYFC OIL-OMEGA 3-E ORAL) Take by mouth. Doctor Unassigned, [place] Current Medications:Scheduled meds:acetaminophen, 650 mg, G6Slwcfvmxuqv tears (hypromellose), 1 Drop, QHS[START ON 04/21/2023] aspirin, 81 mg, DAILYatorvastatin, 80 mg, QHScarvediloL, 12.5 mg, BID MEALSceFEPIme (MAXIPIME) loading dose IV Piggyback, 2,000 mg, ONCE[START ON 04/21/2023] ceFEPIme (MAXIPIME) IV Piggyback, 2,000 mg, Q8H ABXenoxaparin (LOVENOX) SC Syringe, 40 mg, DAILY[START ON 04/21/2023] famotidine, 40 mg, DAILY[START ON 04/21/2023] fluconazole, 400 mg, DAILY[START ON 04/21/2023] furosemide, 40 mg, DAILYgabapentin, 300 mg, TIDHYDROcodone-acetaminophen, 1 tablet, ONCE[START ON 04/21/2023] lisinopriL, 20 mg, DAILYmetroNIDAZOLE, 500 mg, Q8H[START ON 04/21/2023] polyethylene glycol 3350, 17 g, DAILY[START ON 04/21/2023] sennosides-docusate sodium, 2 tablet, DAILYinsulin lispro (human), , TID MEALS+HS[START ON 04/21/2023] tamsulosin, 0.4 mg, DAILYvancomycin Peripheral Line IV Piggyback, 1,000 mg, Q12H ABXIV meds:lactated ringersPRN meds:artificial tears(hypromellose), 1 Drop, PRNcyclobenzaprine, 10 mg, TIDPRNdextrose 10% (D10W), 250 mL, PRN - SEE INSTRUCTIONSdiclofenac, 50 mg, TIDPRN MEALSFENTanyl PF, 25 mcg, Q5MIN PRNglucagon, 1 mg, PRNhaloperidol lactate, 1 mg, PRNHYDROmorphone (DILAUDID) 2 mg/mL injection, 0.2 mg, Q5MIN PRNondansetron, 4 mg, K6XUYBovwDLGALA, 10 mg, T5OWJVLLMRNQLPE:Allergies Allergen Reactions Empagliflozin Rash Tree Pollen-[place] Other - See comments Rhinitis Spironolactone Other - See comments Elevated Cr and K REVIEW OF SYSTEMSAll systems negative except as otherwise stated in HPIPHYSICAL EXAMBP (!) 142/61 | Pulse 80 | Temp 37.2 ?C (99 ?F) (Tympanic) | Resp 11 | Ht 1.676 m (5' 6") | Wt 90.1 kg (198 lb 9.6 oz) | SpO2 97% | BMI 32.05 kg/m? Physical ExamVitals reviewed. Constitutional: General: Patient is not in acute distress. Appearance: Normal appearance. HENT: Right Ear: External ear normal. Left Ear: Cleanly bandaged Nose: Nose normal. Eyes: Extraocular Movements: Extraocular movements intact. Conjunctiva/sclera: Conjunctivae normal. Cardiovascular: Rate and Rhythm: Normal rate and regular rhythm. Pulses: Normal pulses. Heart sounds: Normal heart sounds. No murmur heard. Pulmonary: Effort: Pulmonary effort is normal. No respiratory distress. Breath sounds: Normal breath sounds. No wheezing. Abdominal: General: Bowel sounds are normal. There is no distension. Palpations: Abdomen is soft. Tenderness: There is no abdominal tenderness. Musculoskeletal: General: No swelling or tenderness. Normal range of motion. Skin: General: Skin is warm. Coloration: Skin is not jaundiced. Findings: No lesion. Neurological: General: No focal deficit present. Mental Status: patient is drowsy but arousable, opens eyes to voice, movies all extremities spontaneously, LABS/IMAGING - reviewed, recent results as below:Lab Results Component Value Date/Time NA 138 04/19/2023 10:05 AM K 5.1 (H) 04/19/2023 10:05 AM CA 10.1 04/19/2023 10:05 AM CL 100 04/19/2023 10:05 AM BUN 20 04/19/2023 10:05 AM CREAT 0.72 04/19/2023 10:05 AM EGFR 108.2 04/19/2023 10:05 AM GLU 153 (H) 04/19/2023 10:05 AM TCO2 25 04/19/2023 10:05 AM WBC 10.26 04/19/2023 10:05 AM RBC 4.07 (L) 04/19/2023 10:05 AM PLT 266 04/19/2023 10:05 AM HGB 12.3 04/19/2023 10:05 AM HCT 37.3 (L) 04/19/2023 10:05 AM ALB 4.1 04/19/2023 10:05 AM TPRO 7.8 04/19/2023 10:05 AM BILIT 0.7 04/19/2023 10:05 AM ALT 23 04/19/2023 10:05 AM AST 27 04/19/2023 10:05 AM ALKPHOS 59 04/19/2023 10:05 AM PHOS 4.1 04/12/2023 03:53 AM MG 1.9 04/12/2023 03:53 AM PTINR 1.1 02/28/2023 02:51 PM PTPAT 14.0 02/28/2023 02:51 PM APTTPAT 30 08/14/2018 10:18 AM TROPNI 0.017 02/28/2023 02:51 PM Most Recent UA:No results found for: "UPROTEIN", "UPH", "UGLUCOSE", "UKETONES", "UBILI", "UBLOOD", "UUROBILIN", "ULEUKEST", "UNITRITE", "USPGRAV"Radiology (48 HRS):No final results containing an impression from the past 2 days were found. ASSESSMENT & PLAN:Chronic OM of the L mastoid s/p mastoidectomy & myringotomy insertion 04/20/23Uncontrolled HM0Jyrjshp, stable conditions: HFrEF 10-15%, not on acute exacerbation s/p AICDCAD s/p S/p PCI with 2 stents in 2007. S/p 3-v CABG in 07/2019.NIKI not on CPAP at home HTN HLD R Eye prosthesisMorbid Obesity BMI 32Pt placed on fluconazole outpatient as prior ear culture grew 4+ C. Orthopsilosis, OR cultures sent, per ENT pt was still on vanc, cefepime and flagyl outpatient- have reordered these as well and await ID rev evaluation this admission. ENT considering discharge home tomorrow and will need ID discharge reccs. Discussed with ENT and they will resume asa 81 tomorrow and hold plavix for now, no cardiac procedure since 2019 so this is a reasonable approach. Continue coreg, lisinopril, lasix and GDMT as tolerated. Will hold ezetimide and fenofibrate in the perioperative period due to risk of rhabdo. Monitor daily labs. Endocrine consulted for assistance with DM management, anticipate patient will be resumed on full dose insulin (on lantus 30, 6 units humalog with meals + sliding scale outpatient), will place orders if endocrine doesn't. Currently on SSI monotherapy. Thank you for allowing me to participate in your patients care with you, will follow. DVT Prophylaxis: Per Primary, Code Status: presumed fullDispo: pending abx planMedical Barriers to discharge: abx plan, Dharmesh Nichols MD,Surgical Co-Management [facility] Professor General Internal Medicine Portions of this note were created using a voice-recognition transcribing system. Typographical errors and incorrect words or phrases may have been missed during proofreading. Please interpret accordingly. [id number] [id number]:22:02Consult [id number]. 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 No recent changes in patient's health or recent infections.HistoryPast Medical History: Diagnosis Date Caro's palsy left face BPH (benign prostatic hyperplasia) CHF (congestive heart failure) Chronic anemia Chronic midline low back pain without sciatica 2020 pain management-Dr. 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 trauma from arrow History of MD (myocardial infarction) 07/17/2019 Hyperlipemia Hypertension Stable angina Allergies Allergen Reactions Empagliflozin Rash Tree Pollen-[place] Other - See comments Rhinitis Spironolactone Other - See comments Elevated Cr and K Past Surgical History: Procedure Laterality Date CARDIOVERTER DEFIBRILLATOR LEAD PLACEMENT (SHX) 01/22/2015 MedMedstro-Evera XT VR Defibrillator-SN:[id number] (Model:[id number]) and SN:[id number] (Model:[id number]) CORONARY ARTERY BYPASS GRAFT 2007 x 3 (COSBY to LAD, saphenous vein to OM1 and saphenous vein to diagonal) EYE SURGERY 1958 STENT PLACEMENT (SHX) 2007 Family History Problem Relation Age of Onset Diabetes Mother Heart Mother Diabetes Father Heart Father Diabetes Sister MD (myocardial infarction) Sister 45 DM type 1 Diabetes Brother Social History Socioeconomic History Marital status: Spouse name: Not on file Number of children: Not on file Years of education: Not on file Highest education level: Not on file Occupational History Not on file Tobacco Use Smoking status: Never Smokeless tobacco: Never Substance and Sexual Activity Alcohol use: Yes Alcohol/week: 12.0 standard drinks of alcohol Types: 12 Cans of beer per week Drug use: No Sexual activity: Not on file Other Topics Concern Not on file Social History Narrative He lives with his and 2 children. He's retired. He's somewhat active. Social Determinants of Health Financial Resource Strain: Low Risk (04/05/2023) Overall Financial Resource Strain (CARDIA) Difficulty of Paying Living Expenses: Not hard at all Food Insecurity: No Food Insecurity (04/05/2023) Hunger Vital Sign Worried About Running Out of Food in the Last Year: Never true Ran Out of Food in the Last Year: Never true Transportation Needs: No Transportation Needs (04/05/2023) PRAPARE - Transportation Lack of Transportation (Medical): No Lack of Transportation (Non-Medical): No Physical Activity: Insufficiently Active (04/05/2023) Exercise Vital Sign Days of Exercise per Week: 7 days Minutes of Exercise per Session: 10 min Stress: Not on file Social Connections: Unknown (04/05/2023) Social Connection and Isolation Panel [NHANES] Frequency of Communication with Friends and Family: More than three times a week Frequency of Social Gatherings with Friends and Family: Not on file Attends [employer] Services: Not on file Active Member of Clubs or Organizations: Not on file Attends Club or Organization Meetings: Not on file Marital Status: Intimate Partner Violence: Not on file Housing Stability: Low Risk (04/05/2023) Housing Stability Vital Sign Unable to Pay for Housing in the Last Year: No Number of Places Lived in the Last Year: 1 Unstable Housing in the Last Year: No ROSgen - negativeENT - Per HPICV - negativepulm - negativeGI - negativeGU - negativeMusculoskeletal - negativeSkin - negativeNeuro - negativePsych - negativePhysical ExamBP (!) 137/91 | Pulse 80 | Temp 36.4 ?C (97.5 ?F) (Tympanic) | Resp 18 | Ht 1.676 m (5' 6") | Wt 90.1 kg (198 lb 9.6 oz) | SpO2 95% | BMI 32.05 kg/m? PHYSICAL EXAMINATIONGENERAL: In no acute distressRESPIRATORY: breathing unlabored. Symmetrical chest expansion. 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 Zully Masterson MD, on 04/20/2023. I actively participated in the decision-making process. Please see the resident's note for additional details. [id number] and physical [id number], [id number] .[id number]81-38 -21T11:36:06History and physical noteTXT1.2.840.713427.1.13.104.2. [id number] for patient qnbpXMY-ELIWIQUBGZIPCSATF-ZQRHZKQ [address][id number] 5[id number]- 21T11:36:061.2.840.398880.1.72.3. 15|1.2.840.322475.1.13.104.2.7.2. [id number] Procedure Notes Date/Time Note Provider Source 2023-04-20 15:19:52 [id number]:19:52Formatting of VIDA-OTOLARY [facility] this note is different from the STAFF original.Date of Operation: 04/20/23Patient Name: Jodi KelleyR#: [id number] Diagnosis: Left chronic mastoiditisLeft mastoid osteomyelitis Left facial nerve paralysisPostoperative Diagnosis: Left chronic mastoiditisLeft mastoid osteomyelitis Left facial nerve paralysisProcedures: 35589 Left simple mastoidectomy with intact wall (without tympanoplasty, without ossicular chain reconstruction)63686 Left myringotomy with pressure equalization tube placement Surgeon: Edgar Valle M.D.Resident: Zully Masterson MD; Kena Bojorquez MDAnesthesia: General Endotracheal AnesthesiaEstimated Blood Loss: MinimalComplications: NoneDisposition: PACUFindings: Slightly narrow and edematous ear canal. No granulation tissue, purulence, or keratin debris present in ear canalA Fisher T-tube was placed in left middle ear. No middle ear effusion present Mastoid bone looked healthy with normal integrity. Minimally avascular with sclerosisA simple mastoidectomy was performed. Gato's septum was identified and entered. Medial to Gato's septum fibrotic scar tissue was present filling the mastoid cavity. No active infection noted. No purulence. Multiple biopsies were taken and sent for surgical pathology and culture. The lateral SCC, tegmen, incus, and sigmoid sinus were not identified.Biopsies were taken of several sites including the mastoid mucosa and postauricular soft tissue near the mastoid tip which were sent for surgical pathology and culture. A ankur drain was placed in the postauricular woundSpecimens Removed: ID Type Source Tests Collected by Time Destination 1 : MASTOID MUCOSA Tissue BONE SURGICAL PATHOLOGY EXAM Edgar Valle MD 04/20/2023 1422 2 : auricular soft tissue Tissue SOFT TISSUE, OTHER SURGICAL PATHOLOGY EXAM Edgar Valle MD 04/20/2023 5045 A : MASTOID MUCOSA Tissue BONE AFB CULTURE, TISSUE CULTURE(AEROBIC/ANAEROBIC), FUNGUS (ROUTINE) CULTURE Edgar Valle MD 04/20/2023 1425 B : MASTOID Aspirate BONE AFB CULTURE, TISSUE CULTURE(AEROBIC/ANAEROBIC), FUNGUS (ROUTINE) CULTURE Edgar Valle MD 04/20/2023 3942 Implant Name Type Inv. Item Serial No. Tack Maker Lot No. LRB No. Used Action TUBE GYRUS T-FISHER MODIFIED 4.8MM #[id number] - S Tube TUBE GYRUS T-FISHER MODIFIED 4.8MM #[id number] GYRUS [id number] Left 1 Implanted Description of Procedure: After the patient was properly identified and informed consent was obtained, the patient was brought to the operating room and placed in the supine position on the operating table. After the induction of adequate general endotracheal anesthesia, the patient s eyes were taped shut. The patient was then turned 180 degrees. The head was turned to the side to expose the left ear.Dulce electrodes, for electromyography, were placed percutaneously into the orbicularis oculi and orbicularis soham muscles and electromyography was performed to calibrate the facial nerve monitor for right cranial nerve 7. After the electromyography was performed and the nerve monitor was calibrated and assessed to be functional, it was left on for continuous facial nerve monitoring throughout the case.One percent lidocaine with 1:100,000 epinephrine was infiltrated into the post auricular crease. The ear was prepared and draped in the usual sterile fashion. The ear canal was exposed and examined with the operative microscope. Cerumen was removed from the ear canal. Ear canal was slightly narrowed likely from edema and swelling of periauricular soft tissue. A radial incision was made onto the inferior aspect of the left tympanic membrane. No effusion was noted in the left middle ear cavity. A Fisher T-tube 4.8mm was inserted into the myringotomy incision. Ball probe was used to secure tube in position. Antibiotic otic drops were then administered into the left ear canal, followed by a cotton ball at the meatus of the canal.Following, the microscope was taken out of the field. Attention was directed toward the postauricular crease. A curvilinear incision was made 0.5mm behind the crease, extending from just superior to the helix, down to the lobule. The incision was carried down to the mastoid periosteum and to the subgaleal plane overlying the temporalis muscle. A V-shaped Palva flap was made in the mastoid periosteum. Subperiosteal flaps were elevated to expose the mastoid cortex, the temporal bone squama. Self retaining retractors were placed to expose the ear canal and drum. The microscope was brought back into the field. A simple mastoidectomy was performed with cutting and polishing burrs. A simple mastoidectomy was performed. Gato's septum was identified and entered. Underneath Gato's septum fibrotic soft tissue was present filling the mastoid cavity. No active infection noted. No purulence.Multiple biopsies were taken and sent for surgical pathology and culture. The lateral SCC, tegmen, incus, and sigmoid sinus were not identified. Biopsies were taken of several sites including the mastoid mucosa, postauricular soft tissue, mastoid bone was captured in trap during drilling which were sent for surgical pathology and culture.The wound was thoroughly irrigated with saline. The self-retaining retractors were removed and the pinna was placed back in its northway position. The mastoid periosteum and skin incision were closed with absorbable suture. A ankur drain was placed in the inferior incision line. The post auricular incision was dressed with antibiotic ointment. A Gerry dressing was applied in the standard fashion. Care of the patient was returned to the anesthesiology team. The patient was awakened, extubated, and taken to the post anesthesia care unit in satisfactory condition. At the end of the case, the sponge, needle, and instrument counts were correct per the operating room staff. There were no adverse events on the facial nerve monitor. Zully Masterson MDOtolaryngology-Head and Neck Surgery [id number] [id number]:36:39Procedur e [id number]. [id number] for patient careOTO-OTOLARYNGOLOGY STAFFOTO-OTOLARYNGOLOGY [address] Xu[id number] 0[id number]- 22T15:36:391.2.840.137971.1.72.3. 15|1.2.840.365884.1.13.104.2.7.2. [id number]
[2023-07-20 05:36] LABS: Potassium 4.6 mEq/L (3.5-5.1); Troponin High Sensitivity 22.4 pg/mL (<58.9)
--- NOTE | 2023-07-20 08:02 | EDPHYS ---
Physician Documentation [facility] Name: Jayme Galeano Age: 68 yrs Sex: Male : 1955 Arrival Date: 07/20/2023 Time: 04:47 Bed 7 Private MD: ED Physician Nati Aguillon HPI: 07/20 05:01 This 68 yrs old Male presents to ER via EMS with complaints of ams. ec2 05:01 Today patient arrives today due to concern for altered mental status. had noted he ec2 was having some abnormal breathing and was altered and subsequently called 911. Patient with history of previous right facial droop, patient altered from his baseline and also had a loss of control of urine. History gathered from due to patient's altered mental status. Patient is normally baseline conversational however this is different right now. No reported falls or trauma. Patient was noted to have some type of tossing and turning event that the had witnessed. Unclear if this was seizure episode. Blood sugar was noted to be 71 by EMS. Patient with history of diabetes he is on a sulfonylurea as well as metformin. Also history of hypertension. No reported recent infectious symptoms, no reported nausea, vomiting, diarrhea by .. Historical: - Allergies: 04:57 No Known Allergies; km8 - Home Meds: 04:57 metformin 1,000 mg oral tablet 2 times per day [Active]; lisinopril 20 mg oral tablet km8 daily [Active]; glimepiride 4 mg Oral tab 1 tab twice a day [Active]; carvedilol 12.5 mg Oral tab 1 tab 2 times per day [Active]; atorvastatin 80 mg oral tablet 1 tab every day at bedtime [Active]; isosorbide mononitrate 30 mg oral Tablet, Extended Release 24 hr 1 tab every morning [Active]; Plavix 75 mg Oral tab 1 tab once daily [Active]; tamsulosin 0.4 mg oral capsule 1 cap twice a day [Active]; magnesium oxide 400 mg magnesium Oral tablet 1 tab 2 times per day [Active]; ezetimibe 10 mg oral tablet 1 tab daily [Active]; Iron CR 27 mg Oral daily [Active]; - PMHx: 04:57 Diabetes - IDDM; Hyperlipidemia; Hypertension; TIA (Hypertension); km8 - PSHx: 04:57 Unable to Obtain; km8 - Immunization history:: Adult Immunizations up to date. - Social history:: Smoking status: unknown Not able to communicate due to their condition. ROS: 05:01 Constitutional: Altered mental status ec2 Exam: 05:01 Constitutional: GEN: NAD Head: atraumatic Eyes: EOMI Ears: External ears are ec2 normal. CV: regular rate LUNGS: no respiratory distress ABD: non-distended SKIN: no evidence of rashes MSK: no evidence of trauma NEURO: Moves all EXTR, times to follow commands, has a right facial droop that is known per the Vital Signs: 04:57 BP 147 / 79; Pulse 78; Resp 16 S; Pulse Ox 97% on R/A; km8 05:00 BP 152 / 72; Pulse 81; Resp 12 S; Pulse Ox 95% on R/A; km8 05:30 BP 166 / 84; Pulse 83; Resp 15 S; Pulse Ox 99% on R/A; km8 06:00 BP 129 / 80; Pulse 82; Resp 16 S; Pulse Ox 98% on R/A; km8 07:05 BP 135 / 82; Pulse 77; Resp 17; Pulse Ox 99% on R/A; rs5 08:10 BP 140 / 80; Pulse 84; Resp 18; Pulse Ox 98% on R/A; rs5 09:15 BP 137 / 79; Pulse 82; Resp 16; Pulse Ox 98% on R/A; rs5 NIH Stroke Scale Scores: 08:47 NIHSS Score: 10 aa5 Kassandra Coma Score: 04:57 Eye Response: to voice(3). Motor Response: withdraws from pain(4). Verbal Response: km8 confused(4). Total: 11. MDM: 04:50 Patient medically screened. ec2 05:01 ED course: EKG independently reviewed and interpreted by me, shows normal sinus rhythm, ec2 rate of 77, no acute ST segment elevation, PVC noted.. ED course: Patient arrives today due to concern for altered mental status. Examination remarkable for altered individual who moves all extremities who has a right facial droop that is known. Will obtain lab work, EKG, chest x-ray, CT scan of the head. Currently considering process such as hypoglycemia causing seizure, accordingly we will give the patient dextrose containing fluid at this time. Initially considering intracranial mass, low suspicion for brain bleed or stroke given his equal movements in all extremities. Also considering process such as pneumonia, urinary tract infection, electrolyte disturbances, renal dysfunction. Additionally considering process such as stroke however patient regardless will be outside of a TNK window and is on Plavix already.. 05:47 ED course: On reassessment patient with improving mental status, remains confused ec2 however is nonverbal. reports that his typical sugars are in the 100s, so a blood sugar of 71 will certainly be low for the patient. . 06:14 ED course: CT scan of the head with no acute intracranial process. On reassessment ec2 patient with improving mental status, will obtain CT angio of the head and neck as well for further evaluation for possible stroke. Regardless patient has outside the TNK window at this time, will evaluate for LVO however does not have focality to his examination.. 06:33 Transition of care: After a detail discussion of the patient's case, care is ec2 transferred to Nati Aguillon MD. 06:34 ED course: Chest x-ray shows no acute intrathoracic process. . ec2 08:05 Differential Diagnosis: CVA, electrolyte abnormality, hypoglycemia, intracranial bleed, cp3 sepsis, TIA, volume depletion. Data reviewed: vital signs, nurses notes, EMS record, lab test result(s), EKG, radiologic studies. Consideration of Admission/Observation Escalation of care including admission/observation considered. transfer for evaluation of left mca occlussion. Management of patient was discussed with the following: transfer center. Independent interpretation of the following test(s) in the Emergency Department EKG: See my EKG interpretation above. ED course: ekg interpreted by ne - rate 77 sinus rhythm, pvc, no evidence of acute mi. ED course: rate 82, normal sinus rhtyhm. 08:07 ED course: assumed care at 7am. reviewed history and patient evaluated at bedside. cp3 patient awake, confused, right facial droop, dysarthria. vitals stable. 730am results discussed with radiologist -left mca occlusion. ED course: results discussed with patient at bedside. confirmed last seen at baseline 9pm. 08:24 ED course: the patient accepted at [facility] by stroke team for evaluation of large vessel cp3 occlusion. . 08:26 ED course: patient failed swallow screen. aspirin held. cp3 07/20 04:59 Order name: Basic Metabolic Panel; Complete Time: 05:54 ec2 07/20 04:59 Order name: CBC with Diff; Complete Time: 05:34 ec2 07/20 04:59 Order name: Troponin HS; Complete Time: 05:54 ec2 07/20 06:19 Order name: Ethanol; Complete Time: 07:23 ec2 07/20 07:54 Order name: Glucose, Ancillary Testing; Complete Time: 08:25 EDMS 07/20 04:59 Order name: XRAY Chest (1 view) ec2 07/20 04:59 Order name: CT Head Brain wo Cont ec2 07/20 06:07 Order name: CT Head Angio ec2 07/20 06:07 Order name: CT Neck Angio ec2 07/20 04:59 Order name: EKG; Complete Time: 04:59 ec2 07/20 04:59 Order name: Cardiac monitoring; Complete Time: 05:00 ec2 07/20 04:59 Order name: EKG - Nurse/Tech; Complete Time: 05:11 ec2 07/20 04:59 Order name: IV Saline Lock; Complete Time: 05:00 ec2 07/20 04:59 Order name: Labs collected and sent; Complete Time: 05:11 ec2 07/20 04:59 Order name: O2 Per Protocol; Complete Time: 05:00 ec2 07/20 04:59 Order name: O2 Sat Monitoring; Complete Time: 05:00 ec2 07/20 07:55 Order name: Swallow Screen; Complete Time: 08:22 cp3 07/20 07:55 Order name: Misc. Order: NIH scale please; Complete Time: 08:31 cp3 Administered Medications: 05:08 Drug: D10 in Water IVP 250 ml IVP once Route: IVP; Site: right hand; km8 06:21 Follow up: Response: No adverse reaction; RASS: Alert and Calm (0) km8 05:11 Drug: NS 0.9% IV 1000 ml IV at 1 bolus Per protocol; 1000 mL bolus Route: IV; Rate: 1 km8 bolus; Site: left antecubital; 08:15 Drug: Keppra IV 1000 mg IV at bolus once Route: IV; Rate: bolus; Site: left forearm; rs5 08:31 Follow up: Response: No adverse reaction; IV Status: Completed infusion rs5 08:22 Not Given (Pt failed swallow screen ): [id number] mg PO once aa5 Point of Care Testing: Blood Glucose: 07:47 Blood Glucose: 163 mg/dL; rs5 Ranges: Critical Glucose Levels:Adult <50 mg/dl or >400 mg/dl <40 mg/dl or >180 mg/dl Disposition: 08:05 Critical Care:. Chart complete. cp3 Disposition Summary: 07/20/23 08:02 Transfer Ordered Notes: Transfer Location: [facility]-System cp3 Reason: Higher level of care cp3 Condition: Serious cp3 Problem: new cp3 Symptoms: are unchanged cp3 Accepting Physician: jorge l(07/20/23 09:27) aa5 Diagnosis - Altered mental status, unspecified cp3 - Acute cerebrovascular insufficiency cp3 - Coma scale, best verbal response, confused conversation, at arrival to emergency cp3 department - Dysarthria following cerebral infarction cp3 - Cerebral infarction due to unspecified occlusion or stenosis of left middle cp3 cerebral artery Forms: - Medication Reconciliation Form cp3 - SBAR form cp3 Critical care time excluding procedures: 08:05 Critical care time: Consultation: 35 minutes. Total time: 35 minutes cp3 NIH Stroke Scale - NIH Stroke Score Date: 07/20/2023 Time: 08:47 Total Score = 10 10. Dysarthria (speech clarity - read or repeat words) - 0(Normal) 11. Extinction and Inattention (visual/tactile/auditory/spatial/personal) - 0(No abnormality) 1a. Level of Consciousness (LOC) - 0(Alert) 1b. Level of Consciousness (LOC) (Month \T\ Age) - 2(Neither) 1c. LOC Commands (Open \T\ Closes Eyes/Director Of Entertainment) - 1(One) 2. Best Gaze (Lateral Gaze Paresis) - 0(Normal) 3. Visual Field Loss - 0(No visual loss) 4. Facial Palsy - 2(Partial paralysis) 5a. Left Arm: Motor (10-second hold) - 0(No drift) 5b. Right Arm: Motor (10-second hold) - 1(Drift) 6a. Left Leg: Motor (5-second hold - always test supine) - 1(Drift) 6b. Right Leg: Motor (5-second hold - always test supine) - 1(Drift) 7. Limb Ataxia (finger/nose \T\ heel/hernandez - test with eyes open) - 0(Absent) 8. Sensory Loss (pinprick arms/legs/face) - 0(Normal) 9. Best Language: Aphasia (description/naming/reading) - 2(Severe aphasia) Initials: aa5 Signatures: Dispatcher [employer] Nati Norwood MD MD cp3 Carol Macdonald RN RN aa5 Brandon Vazquez RN RN rs5 Anatoliy Zimmerman MD MD ec2 Rosio Lynn RN RN km8 Corrections: (The following items were deleted from the chart) 05:01 04:57 Patient medically screened. ec2 ec2 05:07 05:01 ED course: Patient arrives today due to concern for altered mental ec2 status. Examination remarkable for altered individual who moves all extremities who has a right facial droop that is known. Will obtain lab work, EKG, chest x-ray, CT scan of the head. Currently considering process such as hypoglycemia causing seizure, accordingly we will give the patient dextrose containing fluid at this time. Initially considering intracranial mass, low suspicion for brain bleed or stroke given his equal movements in all extremities. Also considering process such as pneumonia, urinary tract infection, electrolyte disturbances, renal dysfunction.. ec2 06:34 06:33 ED course: Chest x-ray with no acute intrathoracic process. . ec2 ec2 08:05 08:02 [facility] cp3 cp3 08:05 08:02 Cerebral infarction due to thrombosis of right middle cerebral artery cp3 cp3 09:27 08:05 [facility] cp3 aa5
--- NOTE | 2023-07-20 08:02 | ER ---
Nurse's Notes [facility] Name: Jayme Galeano Age: 68 yrs Sex: Male : 1955 Arrival Date: 07/20/2023 Time: 04:47 Bed 7 Private MD: Diagnosis: Altered mental status, unspecified;Acute cerebrovascular insufficiency;Coma scale, best verbal response, confused conversation, at arrival to emergency department;Dysarthria following cerebral infarction;Cerebral infarction due to unspecified occlusion or stenosis of left middle cerebral artery Presentation: 07/20 04:57 Chief complaint: EMS states: pt's called due to waking up around 0400 and hearing km8 him breathing abnormal, when she asked how he was doing he did not respond to her and she called EMS; pt has hx of TIA's was last seen normal at 2100 last night; pt's right eye is known to be closed/drooping. Coronavirus screen: Client denies travel out of the [place] in the last 14 days. At this time, the client does not indicate any symptoms associated with coronavirus-19. Ebola Screen: No symptoms or risks identified at this time. 04:57 Method Of Arrival: EMS: [facility] km8 04:57 Initial Sepsis Screen: Does the patient meet any 2 criteria? Altered Mental Status. No. km8 Patient's initial sepsis screen is negative. Does the patient have a suspected source of infection? No. Patient's initial sepsis screen is negative. Risk Assessment: Do you want to hurt yourself or someone else? Patient reports no desire to harm self or others. Onset of symptoms is unknown. 04:57 Acuity: ADY 2 km8 04:57 Care prior to arrival: Medication(s) given: LR 600 ml IV initiated. 20 GA, in the right km8 antecubital area, Glucose check: 73. 07:05 An acute neurological deficit is present. The charge nurse has been notified. The rs5 patients blood glucose was checked before arriving to the hospital and was found to be normal. Triage Assessment: 04:57 General: Appears in no apparent distress. comfortable, Behavior is calm, drowsy. Pain: km8 Unable to use pain scale. Does not appear to understand pain scale. EENT: Eyes right eye droop. Neuro: [place]aga Agitation-Sedation Scale (RASS): 0 - Alert and Calm Level of Consciousness is awake, confused, Oriented to person, Moves all extremities. Speech with expressive aphasia noted, Facial droop on right. Cardiovascular: No deficits noted. Capillary refill < 3 seconds Patient's skin is warm and dry. Respiratory: No deficits noted. Airway is patent Respiratory effort is even, unlabored, Respiratory pattern is regular, symmetrical. GI: No deficits noted. No signs and/or symptoms were reported involving the gastrointestinal system. : incontinent. Derm: No deficits noted. No signs and/or symptoms reported regarding the dermatologic system. Skin is intact, is healthy with good turgor, Skin is dry, Skin is normal, Skin temperature is warm. Musculoskeletal: No deficits noted. No signs and/or symptoms reported regarding the musculoskeletal system. Range of motion: intact in all extremities. 07:05 The onset of the patients symptoms was July 20, 2023 at 04:00. rs5 Stroke Activation: Symptom onset > 6 hours Physician: Stroke Attending; Name: ; Notified At: ; Arrived At: Physician: Chief Stroke Resident; Name: ; Notified At: ; Arrived At: Physician: Stroke Resident; Name: ; Notified At: ; Arrived At: Physician: ED Attending; Name: ; Notified At: ; Arrived At: Physician: ED Resident; Name: ; Notified At: ; Arrived At: Historical: - Allergies: 04:57 No Known Allergies; km8 - Home Meds: 04:57 metformin 1,000 mg oral tablet 2 times per day [Active]; lisinopril 20 mg oral tablet km8 daily [Active]; glimepiride 4 mg Oral tab 1 tab twice a day [Active]; carvedilol 12.5 mg Oral tab 1 tab 2 times per day [Active]; atorvastatin 80 mg oral tablet 1 tab every day at bedtime [Active]; isosorbide mononitrate 30 mg oral Tablet, Extended Release 24 hr 1 tab every morning [Active]; Plavix 75 mg Oral tab 1 tab once daily [Active]; tamsulosin 0.4 mg oral capsule 1 cap twice a day [Active]; magnesium oxide 400 mg magnesium Oral tablet 1 tab 2 times per day [Active]; ezetimibe 10 mg oral tablet 1 tab daily [Active]; Iron CR 27 mg Oral daily [Active]; - PMHx: 04:57 Diabetes - IDDM; Hyperlipidemia; Hypertension; TIA (Hypertension); km8 - PSHx: 04:57 Unable to Obtain; km8 - Immunization history:: Adult Immunizations up to date. - Social history:: Smoking status: unknown Not able to communicate due to their condition. Screenin:57 [facility] ED Fall Risk Assessment (Adult) History of falling in the last 3 months, km8 including since admission No falls in past 3 months (0 pts) Confusion or Disorientation Yes (5 pts) Intoxicated or Sedated No (0 pts) Impaired Gait Yes (1 pt) Mobility Assist Device Used No (0 pt) Altered Elimination Yes (1 pt) Score/Fall Risk Level 3 or more points = High Risk Oriented to surroundings, Maintained a safe environment, Educated pt \\T\\ family on fall prevention, incl call for assistance when getting out of bed, Assessed \\T\\ reinforced patient's understanding of fall precautions, Provided non-skid footwear, Hourly rounding (assess needs \\T\\ fall precautionary measures) done, Used ambulatory aids as needed (educated on \\T\\ assisted with), Implemented a Fall Risk Plan of Care, Remained w/in arm's length of patient and in sight while toileting, Remained with patient while ambulating, Utilized family, sitter, or virtual jewel flat surfacer as indicated. Abuse screen: Denies threats or abuse. Denies injuries from another. Nutritional screening: No deficits noted. Tuberculosis screening: No symptoms or risk factors identified. Assessment: 04:57 General: see traige notes/assessment. km8 05:49 Reassessment: Patient and/or family updated on plan of care and expected duration. Pain km8 level reassessed. Patient is alert, oriented x 3, equal unlabored respirations, skin warm/dry/pink. Patient states symptoms have improved. Neuro: Arreaga Agitation-Sedation Scale (RASS): 0 - Alert and Calm Level of Consciousness is awake, alert, confused, Oriented to person, Electrodynamicist are weak on right Moves all extremities. Speech is slurred, with expressive aphasia noted, Facial droop on right. 07:05 General: Appears in no apparent distress. uncomfortable, Behavior is calm. rs5 07:05 Pain: Denies pain. Neuro: Level of Consciousness is awake, alert, confused, Oriented to rs5 person, Electrodynamicist are weak on right Moves all extremities. Speech with expressive aphasia noted, Facial droop on right. Cardiovascular: Heart tones S1 S2 present Rhythm is regular. Respiratory: Airway is patent Respiratory effort is even, unlabored, Respiratory pattern is regular, symmetrical, Breath sounds are clear bilaterally. GI: Abdomen is round non-distended, Bowel sounds present X 4 quads. Abd is soft and non tender X 4 quads. : No signs and/or symptoms were reported regarding the genitourinary system. EENT: No signs and/or symptoms were reported regarding the EENT system. Derm: Skin is intact, Skin is dry, Skin is normal, Skin temperature is warm. Musculoskeletal: Range of motion: intact in all extremities. 07:05 Reassessment: at bedside. states "the facial dropping on the right side of rs5 his face is normal, it's from a stroke he had several years ago. What's different is his mental status. He normal talks, responds, and answers questions but not he's confused. The last time I saw him his usual self was at 11pm last night". 08:20 Emilia Swallow Protocol Brief Cognitive Screen What is your name? Abnormal: pt states "I aa5 am fine" . Where are you right now? Abnormal: Pt states "I am fine" . What year is it? Abnormal: Pt states "I am fine" . Oral Mechanism Examination Oral Mechanism Result: Abnormal: Pt unable to follow some commands . 3 oz Water Swallow Challenge: Pt able to drink all water without stopping, coughing, choking or throat clearing: No Result: FAIL Notified: Nati Aguillon MD. 08:47 Neuro: Level of Consciousness is awake, confused, Pt able to follow some commands. . aa5 Oriented to none Electrodynamicist are weak on right Moves all extremities. Speech is normal, with expressive aphasia noted, Facial droop on right. 08:47 TNKase (Tenecteplase) Screening: Contraindications: Patient reports onset of signs and aa5 symptoms of stroke greater than 6 hours ago: Yes. 08:47 VAN Scoring: Arm Drift: Minor drift Visual Disturbance: No visual disturbance noted. aa5 Aphasia: Patient exhibits both expressive and receptive aphasia. Provider notified of +VAN scoring. Neglect: No neglect noted. 09:01 Reassessment: Report give to nurse from [facility]. rust 09:18 Reassessment: Report give to [facility] . rs5 Vital Signs: 04:57 BP 147 / 79; Pulse 78; Resp 16 S; Pulse Ox 97% on R/A; km8 05:00 BP 152 / 72; Pulse 81; Resp 12 S; Pulse Ox 95% on R/A; km8 05:30 BP 166 / 84; Pulse 83; Resp 15 S; Pulse Ox 99% on R/A; km8 06:00 BP 129 / 80; Pulse 82; Resp 16 S; Pulse Ox 98% on R/A; km8 07:05 BP 135 / 82; Pulse 77; Resp 17; Pulse Ox 99% on R/A; rs5 08:10 BP 140 / 80; Pulse 84; Resp 18; Pulse Ox 98% on R/A; rs5 09:15 BP 137 / 79; Pulse 82; Resp 16; Pulse Ox 98% on R/A; rs5 [place] Coma Score: 04:57 Eye Response: to voice(3). Motor Response: withdraws from pain(4). Verbal Response: km8 confused(4). Total: 11. NIH Stroke Scale Scores: 08:47 NIHSS Score: 10 aa5 ED Course: 04:48 Patient arrived in ED. bp 04:56 Anatoliy Zimmerman MD is Attending Physician. ec2 04:57 Rosio Lynn, IQRA is Primary Nurse. km8 04:57 Maintain EMS IV. Dressing intact. Good blood return noted. Site clean \\T\\ dry. Gauge \\T\\ km 8 site: 20g left AC. Patient maintains SpO2 saturation greater than 95% on room air. 04:57 Arm band placed on left wrist. km8 04:57 Patient has correct armband on for positive identification. Placed in gown. Bed in low km8 position. Call light in reach. Side rails up X2. Client placed on continuous cardiac and pulse oximetry monitoring. NIBP monitoring applied. clinical research monitor on. Door closed. Noise minimized. 05:01 EKG done, by ED staff, reviewed by Anatoliy Zimmerman MD. jw7 05:10 Inserted saline lock: 20 gauge in right hand, using aseptic technique. Blood collected. km8 05:11 Basic Metabolic Panel Sent. km8 05:11 CBC with Diff Sent. km8 05:11 Troponin HS Sent. km8 05:14 Triage completed. km8 05:27 CT Head Brain wo Cont In Process Unspecified. EDMS 05:46 XRAY Chest (1 view) In Process Unspecified. EDMS 06:35 CT Head Angio In Process Unspecified. EDMS 06:35 CT Neck Angio In Process Unspecified. EDMS 06:47 Ethanol Sent. km8 07:08 Ethanol Sent. km8 07:14 Report given to VERN RN and IQRA Carney. km8 07:56 Attending Physician role handed off by Anatoliy Zimmerman MD cp3 07:56 Nati Aguillon MD is Attending Physician. cp3 08:12 called [facility] for transfer. Talked to Minh. sp 09:[address] Inderjit Lyles accepted pt to [facility]. to the ER then to cat scan. Miracle FERRER RN sp admin approval called [employer] to transfer to [facility]. report number to [facility] Neuro unit- [phone]. 09:25 No provider procedures requiring assistance completed. rs5 09:25 Patient transferred, IV remains in place. rs5 Administered Medications: 05:08 Drug: D10 in Water IVP 250 ml IVP once Route: IVP; Site: right hand; km8 06:21 Follow up: Response: No adverse reaction; RASS: Alert and Calm (0) km8 05:11 Drug: NS 0.9% IV 1000 ml IV at 1 bolus Per protocol; 1000 mL bolus Route: IV; Rate: 1 km8 bolus; Site: left antecubital; 08:15 Drug: Keppra IV 1000 mg IV at bolus once Route: IV; Rate: bolus; Site: left forearm; rs5 08:31 Follow up: Response: No adverse reaction; IV Status: Completed infusion rs5 08:22 Not Given (Pt failed swallow screen ): mg PO once aa5 Medication: 09:25 VIS not applicable for this client. rs5 Point of Care Testing: Blood Glucose: 07:47 Blood Glucose: 163 mg/dL; rs5 Ranges: Outcome: 08:02 ER care complete, transfer ordered by . cp3 09:25 Transferred by helicopter to [facility], Transfer form completed. rs5 09:25 Condition: stable 09:25 Discharge instructions given to patient, family, Instructed on the need for transfer, Demonstrated understanding of instructions, 09:27 Patient left the ED. aa5 NIH Stroke Scale - NIH Stroke Score Date: 07/20/2023 Time: 08:47 Total Score = 10 10. Dysarthria (speech clarity - read or repeat words) - 0(Normal) 11. Extinction and Inattention (visual/tactile/auditory/spatial/personal) - 0(No abnormality) 1a. Level of Consciousness (LOC) - 0(Alert) 1b. Level of Consciousness (LOC) (Month \\T\\ Age) - 2(Neither) 1c. LOC Commands (Open \\T\\ Closes Eyes/Food Service Clerk) - 1(One) 2. Best Gaze (Lateral Gaze Paresis) - 0(Normal) 3. Visual Field Loss - 0(No visual loss) 4. Facial Palsy - 2(Partial paralysis) 5a. Left Arm: Motor (10-second hold) - 0(No drift) 5b. Right Arm: Motor (10-second hold) - 1(Drift) 6a. Left Leg: Motor (5-second hold - always test supine) - 1(Drift) 6b. Right Leg: Motor (5-second hold - always test supine) - 1(Drift) 7. Limb Ataxia (finger/nose \\T\\ heel/hernandez - test with eyes open) - 0(Absent) 8. Sensory Loss (pinprick arms/legs/face) - 0(Normal) 9. Best Language: Aphasia (description/naming/reading) - 2(Severe aphasia) Initials: aa5 Signatures: Dispatcher [employer] Nati Norwood MD MD cp3 Sarai Thompson Audri, RN RN aa5 Julien Gaines RN RN bp Lilia Pruett RN RN jw7 Brandon Vazquez RN RN 5 Anatoliy Zimmerman MD MD 2 Rosio Lynn RN RN km8 Corrections: (The following items were deleted from the chart) 09:02 08:47 NIHSS Score: 10 aa5 aa5 09:56 08:47 [place] Swallow Protocol Brief Cognitive Screen What is your name? Abnormal: aa5 pt states "I am fine" . Where are you right now? Abnormal: Pt states "I am fine" . What year is it? Abnormal: Pt states "I am fine" . Oral Mechanism Examination Oral Mechanism Result: Abnormal: Pt unable to follow some commands . 3 oz Water Swallow Challenge: Pt able to drink all water without stopping, coughing, choking or throat clearing: No Result: FAIL Notified: Nati Aguillon MD aa5
[2023-07-20] MEDS ORDERED: ASPIRIN 325 MG TAB ONE (08:21)
[2023-07-20] MEDS ORDERED: LEVETIRACETAM 500 MG/5 ML VIAL IV ONE (08:47)
[2023-07-20] MEDS ORDERED: NA CHLORIDE 0.9% 100 ML ONE (08:48)
[2023-07-20 09:53] VITALS: BP 129/80; O2SAT 98
--- NOTE | 2023-07-20 14:40 | EKG ---
Test Date: 2023-07-20 Test Time: 04:58:50 Cell Maker: [place]TON MEASUREMENT RESULTS: Intervals: Rate: 77 CA: 172 QRSD: 108 QT: 382 QTc: 432 [place]: P: 46 CA: 172 QRS: 83 T: -49 INTERPRETIVE STATEMENTS: Sinus rhythm with occasional premature ventricular complexes Inferior infarct, age undetermined Anterolateral infarct, age undetermined Abnormal ECG Compared to ECG 10/15/2019 14:41:38 Ventricular premature complex(es) now present Myocardial infarct finding still present Electronically Signed On 07-20-23 14:39:17 CDT by Juan Pablo Pace
--- NOTE | 2023-07-20 17:25 | RAD REPORT ---
EXAM DESCRIPTION: CT - Neck Angio - 07/20/2023 3:57 pm ADDENDUM #1 THIS REPORT CONTAINS FINDINGS THAT MAY BE CRITICAL TO PATIENT CARE: The findings were verbally discus sed via telephone conference with Dr. Nati GILLESPIE by Dr. Kirby Thompson on 07/20/2023 7:22 AM CDT .The results were acknowledged and understood. Electronically signed by: Kirby Thompson MD 07/20/2023 7:23 AM CDT End of Addendum EXAM DESCRIPTION: CT Angiography Neck With Intravenous Contrast CLINICAL HISTORY: The patient is 68 years old and is Male; MENTAL STATUS CHANGE TECHNIQUE: Routine carotid CT angiography protocol was performed with intravenous contrast. NASCET criteria using the distal ICAs for comparison were used for evaluation of stenoses. Sagittal and c oronal reformatted images were created and reviewed. This CT exam was performed using one or more o f the following dose reduction techniques: automated exposure control, adjustment of the mA and/or kV according to patient size, and/or use of iterative reconstruction technique. MIP reconstructed i mages were created and reviewed. COMPARISON: None. FINDINGS: VASCULATURE: Right common carotid artery: There is an approximately 3.5 cm segment of the right common carotid artery with up to 50% stenosis due to noncalcified plaque versus dissection. Right internal carotid artery: Unremarkable. Extracranial segment is patent with no occlusion o r significant stenosis. No dissection. Right external carotid artery: Unremarkable. No occlusion. Right vertebral artery: Unremarkable. No occlusion or significant stenosis. No dissection. Left common carotid artery: There is a 2.5 cm segment of the left common carotid artery with up t o approximately 60% stenosis due to noncalcified plaque versus dissection. Left internal carotid artery: Unremarkable. Extracranial segment is patent with no occlusion or significant stenosis. No dissection. Left external carotid artery: Unremarkable. No occlusion. Left vertebral artery: Unremarkable. No occlusion or significant stenosis. No dissection. NECK: Bones/joints: Unremarkable. Soft tissues: Unremarkable. Lung apices: Clear. CAROTID STENOSIS REFERENCE USING NASCET CRITERIA: % ICA stenosis = (1 - narrowest ICA diameter/diameter of distal cervical ICA) x 100. Mild - <50% stenosis. Moderate - 50-69% stenosis. Severe - 70-94% stenosis. Near occlusion - 95-99% stenosis. Occluded - 100% stenosis. * A single impression for all exams can be found at the end of this report EXAM DESCRIPTION: CT Angiography Head With Intravenous Contrast CLINICAL HISTORY: The patient is 68 years old and is Male; MENTAL STATUS CHANGE TECHNIQUE: Axial computed tomographic angiography images of the head with intravenous contrast. Sa gittal and coronal reformatted images were created and reviewed. This CT exam was performed using o ne or more of the following dose reduction techniques: automated exposure control, adjustment of th e mA and/or kV according to patient size, and/or use of iterative reconstruction technique. MIP rec onstructed images were created and reviewed. COMPARISON: No relevant prior studies available. FINDINGS: Right internal carotid artery: There is calcified plaque causing up to 50% narrowing of the right ICA. No aneurysm. Right anterior cerebral artery: Unremarkable. No occlusion or significant stenosis. No aneury sm. Right middle cerebral artery: Unremarkable. No occlusion or significant stenosis. No aneurysm . Right posterior cerebral artery: Unremarkable. No occlusion or significant stenosis. No aneur ysm. Right vertebral artery: Unremarkable as visualized. Left internal carotid artery: There is calcified plaque causing up to 50% narrowing of the left I CA. No aneurysm. Left anterior cerebral artery: Unremarkable. No occlusion or significant stenosis. No aneurys m. Left middle cerebral artery: There is abrupt cutoff of the inferior division of the left MCA (M2) concerning for occlusion. No aneurysm. Left posterior cerebral artery: Unremarkable. No occlusion or significant stenosis. No aneury sm. Left vertebral artery: Unremarkable as visualized. Basilar artery: Unremarkable. No occlusion or significant stenosis. No aneurysm. Orbits: Chronic changes in the right globe. * A single impression for all exams can be found at the end of this report IMPRESSION: CT Angiography Neck With Intravenous Contrast: % ICA stenosis = (1 - narrowest ICA diameter/diameter of distal cervical ICA) x 100.: Mild - <50% stenosis.: Moderate - 50-69% stenosis.: Severe - 70-94% stenosis.: Near occlusion - 95-99% stenosis.: Occluded - 100% stenosis.: 1. There is a 2.5 cm segment of the left common carotid artery with up to approximately 60% stenosi s due to noncalcified plaque versus dissection. 2. There is an approximately 3.5 cm segment of the right common carotid artery with up to 50% steno sis due to noncalcified plaque versus dissection. CT Angiography Head With Intravenous Contrast: There is abrupt cutoff of the inferior division of the left MCA (M2) concerning for occlusion. Electronically signed by: Kirby Thompson MD 07/20/2023 7:18 AM CDT Due to temporary technical issues with the PACS/Fluency reporting system, reports are being signed by the in house radiologists without review as a courtesy to insure prompt reporting. The interpreting radiologist is fully responsible for the content of the report.
--- NOTE | 2023-07-20 17:28 | RAD REPORT ---
EXAM DESCRIPTION: RAD - Chest Single View - 07/20/2023 5:45 am CLINICAL HISTORY: The patient is 68 years old and is Male; PRODUCTIVE COUGH TECHNIQUE: Single view of the chest. COMPARISON: No relevant prior studies available. FINDINGS: Limitations: Evaluation limited by body habitus. Lungs: Expiratory film versus low lung volumes. No fluid overload or definite infiltrate. Pleural space: Unremarkable. No pneumothorax. Heart: The cardiac silhouette is enlarged versus artifact of AP technique. Mediastinum: Unremarkable. Bones/joints: Sternal closure wires. Tubes, lines and devices: Right-sided ICD. Upper abdomen: No free air in the visualized upper abdomen. Elevated right hemidiaphragm. IMPRESSION: Expiratory film versus low lung volumes. No fluid overload or definite infiltrate. Electronically signed by: Yudelka Boyd MD 07/20/2023 6:00 AM CDT Due to temporary technical issues with the PACS/Fluency reporting system, reports are being signed by the in house radiologists without review as a courtesy to insure prompt reporting. The interpreting radiologist is fully responsible for the content of the report.
--- NOTE | 2023-07-20 17:32 | RAD REPORT ---
EXAM DESCRIPTION: CT - Head angio - 07/20/2023 7:24 am ADDENDUM #1 THIS REPORT CONTAINS FINDINGS THAT MAY BE CRITICAL TO PATIENT CARE: The findings were verbally discus sed via telephone conference with Dr. Nati GILLESPIE by Dr. Kirby Thompson on 07/20/2023 7:22 AM CDT .The results were acknowledged and understood. Electronically signed by: Kirby Thompson MD 07/20/2023 7:23 AM CDT End of Addendum EXAM: CT Angiography Neck With Intravenous Contrast CLINICAL HISTORY: The patient is 68 years old and is Male; MENTAL STATUS CHANGE TECHNIQUE: Routine carotid CT angiography protocol was performed with intravenous contrast. NASCET criteria using the distal ICAs for comparison were used for evaluation of stenoses. Sagittal and c oronal reformatted images were created and reviewed. This CT exam was performed using one or more o f the following dose reduction techniques: automated exposure control, adjustment of the mA and/or kV according to patient size, and/or use of iterative reconstruction technique. MIP reconstructed i mages were created and reviewed. COMPARISON: None. FINDINGS: VASCULATURE: Right common carotid artery: There is an approximately 3.5 cm segment of the right common carotid artery with up to 50% stenosis due to noncalcified plaque versus dissection. Right internal carotid artery: Unremarkable. Extracranial segment is patent with no occlusion o r significant stenosis. No dissection. Right external carotid artery: Unremarkable. No occlusion. Right vertebral artery: Unremarkable. No occlusion or significant stenosis. No dissection. Left common carotid artery: There is a 2.5 cm segment of the left common carotid artery with up t o approximately 60% stenosis due to noncalcified plaque versus dissection. Left internal carotid artery: Unremarkable. Extracranial segment is patent with no occlusion or significant stenosis. No dissection. Left external carotid artery: Unremarkable. No occlusion. Left vertebral artery: Unremarkable. No occlusion or significant stenosis. No dissection. NECK: Bones/joints: Unremarkable. Soft tissues: Unremarkable. Lung apices: Clear. CAROTID STENOSIS REFERENCE USING NASCET CRITERIA: % ICA stenosis = (1 - narrowest ICA diameter/diameter of distal cervical ICA) x 100. Mild - <50% stenosis. Moderate - 50-69% stenosis. Severe - 70-94% stenosis. Near occlusion - 95-99% stenosis. Occluded - 100% stenosis. * A single impression for all exams can be found at the end of this report EXAM DESCRIPTION: CT Angiography Head With Intravenous Contrast CLINICAL HISTORY: The patient is 68 years old and is Male; MENTAL STATUS CHANGE TECHNIQUE: Axial computed tomographic angiography images of the head with intravenous contrast. Sa gittal and coronal reformatted images were created and reviewed. This CT exam was performed using o ne or more of the following dose reduction techniques: automated exposure control, adjustment of th e mA and/or kV according to patient size, and/or use of iterative reconstruction technique. MIP rec onstructed images were created and reviewed. COMPARISON: No relevant prior studies available. FINDINGS: Right internal carotid artery: There is calcified plaque causing up to 50% narrowing of the right ICA. No aneurysm. Right anterior cerebral artery: Unremarkable. No occlusion or significant stenosis. No aneury sm. Right middle cerebral artery: Unremarkable. No occlusion or significant stenosis. No aneurysm . Right posterior cerebral artery: Unremarkable. No occlusion or significant stenosis. No aneur ysm. Right vertebral artery: Unremarkable as visualized. Left internal carotid artery: There is calcified plaque causing up to 50% narrowing of the left I CA. No aneurysm. Left anterior cerebral artery: Unremarkable. No occlusion or significant stenosis. No aneurys m. Left middle cerebral artery: There is abrupt cutoff of the inferior division of the left MCA (M2) concerning for occlusion. No aneurysm. Left posterior cerebral artery: Unremarkable. No occlusion or significant stenosis. No aneury sm. Left vertebral artery: Unremarkable as visualized. Basilar artery: Unremarkable. No occlusion or significant stenosis. No aneurysm. Orbits: Chronic changes in the right globe. * A single impression for all exams can be found at the end of this report IMPRESSION: CT Angiography Neck With Intravenous Contrast: % ICA stenosis = (1 - narrowest ICA diameter/diameter of distal cervical ICA) x 100.: Mild - <50% stenosis.: Moderate - 50-69% stenosis.: Severe - 70-94% stenosis.: Near occlusion - 95-99% stenosis.: Occluded - 100% stenosis.: 1. There is a 2.5 cm segment of the left common carotid artery with up to approximately 60% stenosi s due to noncalcified plaque versus dissection. 2. There is an approximately 3.5 cm segment of the right common carotid artery with up to 50% steno sis due to noncalcified plaque versus dissection. CT Angiography Head With Intravenous Contrast: There is abrupt cutoff of the inferior division of the left MCA (M2) concerning for occlusion. Electronically signed by: Kirby Thompson MD 07/20/2023 7:18 AM CDT Due to temporary technical issues with the PACS/Fluency reporting system, reports are being signed by the in house radiologists without review as a courtesy to insure prompt reporting. The interpreting radiologist is fully responsible for the content of the report.
--- NOTE | 2023-07-20 17:34 | RAD REPORT ---
EXAM DESCRIPTION: CT - Head Brain Wo Cont - 07/20/2023 6:09 am CLINICAL HISTORY: Seizure COMPARISON: CT Head/Brain Without Contrast 10/15/2019 TECHNIQUE: Head/brain axial images acquired without contrast. Coronal and sagittal reformats created . Exam performed according to departmental dose-optimization program which includes automated exposur e control, adjustment of mA and/or kV according to patient size, and/or use of iterative reconstructi on technique. FINDINGS: No midline shift, mass effect, intracranial hemorrhage, or hydrocephalus. CSF spaces appear overall mildly enlarged likely representing age-appropriate cerebral volume loss. Paranasal sinuses clear. Mastoid air cells clear. No skull fracture or significant skull lesion. 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 IMPRESSION: No CT evidence of acute intracranial abnormality. Electronically signed by: Ilia Contreras MD 07/20/2023 5:57 AM CDT Due to temporary technical issues with the PACS/Fluency reporting system, reports are being signed by the in house radiologists without review as a courtesy to insure prompt reporting. The interpreting radiologist is fully responsible for the content of the report.
== END 2023-07-20 09:27 | disposition short-term general hospital (02) ==
LOC: ER 04:47
DX: I63.512 Cerebral infarction due to unspecified occlusion or stenosis of left middle cerebral artery (principal); R47.1 Dysarthria and anarthria; I67.81 Acute cerebrovascular insufficiency; I10 Essential (primary) hypertension; R29.710 NIHSS score 10; E11.9 Type 2 diabetes mellitus without complications; Z86.73 Personal history of transient ischemic attack (TIA), and cerebral infarction without residual deficits
CPT/HCPCS: 96365; 93005; 85025; 80048; 36415; 82947; 84484; 70450; 70496; 70498; 71045; 99285; 82077; Q9967; J1953; J7030

== ENCOUNTER 2024-10-10 21:44 | Inpatient (IN) | payer OTHER ==
[2024-10-10] MEDS ORDERED: NA CHLORIDE 0.9% 1,000 ML ONE (22:25)
[2024-10-10] MEDS ORDERED: ONDANSETRON 4 MG/2 ML VIAL ONE (22:25)
[2024-10-10 23:05] LABS: Absolute Basophils 0.1 K/uL (0-0.5); Absolute Eosinophils 0.1 K/uL (0-0.5); Absolute Lymphocytes (CBC) 0.8 K/uL (0.7-4.9); Absolute Monocytes 0.8 K/uL (0.1-1.3); Absolute Neutrophil 7.1 K/uL (1.8-8.0); Basophils % 0.6 % (0-1.3); Hematocrit 28.5 % (39.6-49.0); Hemoglobin 9.6 g/dL (13.6-17.9); Lymphocytes % 8.7 % (15.3-44.8); MCH 30.4 pg (27.0-35.0); MCHC 33.6 g/dL (32.0-36.0); MCV 90.6 fL (80-100); MPV 9.7 fL (7.6-11.3); Monocytes % 9.1 % (3.3-12.3); Neutrophils % 80.6 % (41.7-73.7); Nucleated Red Blood Cells % 0.1 % (0-0); Platelets 172 thou/uL (152-406); RBC Red Blood Cell Count 3.14 M/uL (4.33-5.43)
[2024-10-10] MEDS ORDERED: PIPERACIL/TAZO 3.375 GM VIAL IV ONE (23:56)
[2024-10-10] MEDS ORDERED: NA CHLORIDE 0.9% 100 ML ONE (23:56)
--- NOTE | 2024-10-11 00:47 | RAD REPORT ---
ADDENDUM #1 THIS REPORT CONTAINS FINDINGS THAT MAY BE CRITICAL TO PATIENT CARE: The findings were verbally discus sed via telephone conference with Dr. Anatoliy Zimmerman on 10/10/2024 11:51 PM HEAD CHARRER. The results were acknowledged and understood. Electronically signed by: Isauro Reynoso MD 10/10/2024 11:55 PM HEAD CHARRER RP End of Addendum EXAM: CT Abdomen and Pelvis Without Intravenous Contrast CLINICAL HISTORY: ABD PAIN TECHNIQUE: Axial computed tomography images of the abdomen and pelvis without intravenous contrast. Sagittal a nd coronal reformatted images were created and reviewed. This CT exam was performed using one or more of the following dose reduction techniques: automated exposure control, adjustment of the mA a nd/or kV according to patient size, and/or use of iterative reconstruction technique. COMPARISON: No relevant prior studies available. FINDINGS: Lung bases: Unremarkable. No mass. No consolidation. Heart: The heart is mildly enlarged. Coronary artery calcification. ABDOMEN: Liver: Unremarkable. Gallbladder and bile ducts: There has been a cholecystectomy. No ductal dilation. Pancreas: Mild pancreatic parenchymal atrophy. No ductal dilation. Spleen: Unremarkable. No splenomegaly. Adrenals: Unremarkable. No mass. Kidneys and ureters: Mild bilateral perinephric stranding. No calculi. No hydronephrosis. Stomach and bowel: Moderate stool. Colonic diverticula without adjacent inflammatory change. No o bstruction. No mucosal thickening. PELVIS: Appendix: The appendix is enlarged measuring up to 12 mm in diameter there are a couple small appen dicoliths proximally. Mild surrounding inflammation. Bladder: Mild urinary bladder wall thickening. No stones. Reproductive: The prostate is mildly enlarged. ABDOMEN and PELVIS: Intraperitoneal space: Unremarkable. No free air. No significant fluid collection. Bones/joints: Prior median sternotomy. Multilevel spondylosis. No acute fracture. No dislocat ion. Soft tissues: Unremarkable. Vasculature: Severe atherosclerotic disease. No abdominal aortic aneurysm. Lymph nodes: Unremarkable. No enlarged lymph nodes. IMPRESSION: 1. Findings suggestive of acute appendicitis. Mild surrounding inflammation. No discrete fluid venu ection or extraluminal gas foci. 2. Mild bilateral perinephric stranding. This is nonspecific and may be chronic. Acute superimposed inflammatory process not excluded. 3. Mild urinary bladder wall thickening. This may be related to bladder outlet obstruction. Please correlate clinically for cystitis. 4. Other findings as above. Electronically signed by: Isauro Reynoso MD 10/10/2024 11:42 PM [facility] Due to temporary technical issues with the PACS/[employer] reporting system, reports are being tee d by the in-house radiologist without review as a courtesy to ensure prompt reporting the interpreting radiologist is fully responsible for the content of the report. Transcribed Date/Time: 10/11/2024 12:47 AM
[2024-10-11 01:03] LABS: Albumin 3.1 g/dL (3.4-5.0); Albumin/Globulin Ratio 0.8 (1.1-1.8); Anion Gap 8.7 mEq/L (5.0-15.0); Bilirubin Total 0.2 mg/dL (0.2-1.0); Potassium 4.7 mEq/L (3.5-5.1); Protein, Total 7.1 g/dL (6.4-8.2)
--- NOTE | 2024-10-11 01:15 | ER ---
Nurse's Notes [facility] Name: Jayme Galeano Age: 69 yrs Sex: Male : 1955 Arrival Date: 10/10/2024 Time: 21:44 Bed 4 Private MD: Diagnosis: Unspecified acute appendicitis Presentation: 10/10 21:48 Chief complaint: Patient states: dizziness and nausea that has been ongoing for 5 days. cp4 Reports no vomiting and able to eat. Reports abdominal distention and weight gain. Coronavirus screen: Client denies travel out of the [place] in the last 14 days. At this time, the client does not indicate any symptoms associated with coronavirus-19. Ebola Screen: Patient negative for fever greater than or equal to 101.5 degrees Fahrenheit, and additional compatible Ebola Virus Disease symptoms Patient denies exposure to infectious person. Patient denies travel to an Ebola-affected area in the 21 days before illness onset. No symptoms or risks identified at this time. Initial Sepsis Screen: Does the patient meet any 2 criteria? No. Patient's initial sepsis screen is negative. Does the patient have a suspected source of infection? No. Patient's initial sepsis screen is negative. Risk Assessment: Do you want to hurt yourself or someone else? Patient reports no desire to harm self or others. Onset of symptoms was October 05, 2024. 21:48 Method Of Arrival: EMS: [facility] 21:48 Acuity: ADY 3 cp4 Triage Assessment: 21:52 General: Appears in no apparent distress. uncomfortable, Behavior is calm, cooperative, cp4 appropriate for age. Pain: Denies pain. EENT: No signs and/or symptoms were reported regarding the EENT system. Neuro: Level of Consciousness is awake, alert, obeys commands, Oriented to person, place, time, situation. Cardiovascular: Patient's skin is warm and dry. Rhythm is sinus bradycardia. Respiratory: Airway is patent Respiratory effort is even, unlabored. GI: Reports bloating, nausea. : No signs and/or symptoms were reported regarding the genitourinary system. Derm: No signs and/or symptoms reported regarding the dermatologic system. Musculoskeletal: No signs and/or symptoms reported regarding the musculoskeletal system. Historical: - Allergies: 21:52 No Known Allergies; cp4 - Immunization history:: Adult Immunizations up to date. - Infectious Disease History:: Denies. - Social history:: Smoking status: Patient denies any tobacco usage or history of. Screenin:54 [facility] ED Fall Risk Assessment (Adult) History of falling in the last 3 months, cp4 including since admission No falls in past 3 months (0 pts) Confusion or Disorientation No (0 pts) Intoxicated or Sedated No (0 pts) Impaired Gait No (0 pts) Mobility Assist Device Used No (0 pt) Altered Elimination No (0 pt) Score/Fall Risk Level 0 - 2 = Low Risk Oriented to surroundings, Maintained a safe environment, Assessed \T\ reinforced patient's understanding of fall precautions, Hourly rounding (assess needs \T\ fall precautionary measures) done. Abuse screen: Denies threats or abuse. Denies injuries from another. Nutritional screening: No deficits noted. Tuberculosis screening: No symptoms or risk factors identified. Assessment: 21:54 Reassessment: No changes from previously documented assessment. GI: Abdomen is round cp4 non-distended, Bowel sounds present X 4 quads. Abd is soft and non tender X 4 quads. 23:18 Reassessment: Patient appears in no apparent distress at this time. Patient and/or cp4 family updated on plan of care and expected duration. Pain level reassessed. Patient is alert, oriented x 3, equal unlabored respirations, skin warm/dry/pink. 10/11 00:30 Reassessment: Patient appears in no apparent distress at this time. Patient and/or cp4 family updated on plan of care and expected duration. Pain level reassessed. Patient is alert, oriented x 3, equal unlabored respirations, skin warm/dry/pink. 01:30 Reassessment: Patient appears in no apparent distress at this time. Patient and/or cp4 family updated on plan of care and expected duration. Pain level reassessed. Patient is alert, oriented x 3, equal unlabored respirations, skin warm/dry/pink. 02:18 Reassessment: Patient appears in no apparent distress at this time. Patient and/or cp4 family updated on plan of care and expected duration. Pain level reassessed. Patient is alert, oriented x 3, equal unlabored respirations, skin warm/dry/pink. Vital Signs: 10/10 21:48 BP 126 / 51; Pulse 45; Resp 18; Temp 98.1; Pulse Ox 98% ; Pain 0/10; cp4 23:19 BP 128 / 63; Pulse 40; Resp 18; Pulse Ox 96% ; cp4 10/11 00:00 BP 125 / 57; Pulse 46; Resp 18; Pulse Ox 98% ; cp4 01:25 BP 141 / 62; Pulse 43; Resp 18; Pulse Ox 97% ; cp4 02:17 BP 159 / 65; Pulse 43; Resp 18; Pulse Ox 96% ; cp4 03:26 BP 162 / 75; Pulse 48; Resp 18; Pulse Ox 95% ; cp4 06:33 BP 153 / 65; Pulse 69; ec2 10/10 21:48 Pain Scale: Adult cp4 ED Course: 10/10 21:47 Patient arrived in ED. ec2 21:47 Anatoliy Zimmerman MD is Attending Physician. ec2 21:48 Kendra Mckeon is Primary Nurse. cp4 21:52 Triage completed. cp4 21:52 Arm band placed on right wrist. Patient placed in an exam room, on a stretcher. cp4 21:54 Bed in low position. Call light in reach. Side rails up X2. cp4 21:54 No provider procedures requiring assistance completed. cp4 21:55 Missed attempt(s): 22 gauge in right antecubital area. Bleeding controlled, band aid vc1 applied, catheter tip intact. 21:56 EKG done, by ED staff, reviewed by Anatoliy Zimmerman MD. oe 22:08 Accessed peripheral vein via ultrasound, utilizing dynamic ultrasound technique using vc1 per hospital protocol. IV infiltrated. 22:25 Inserted saline lock: 22 gauge in left hand, using aseptic technique. Flushed with 10 jb4 mL NS. Missed attempt(s): 20 gauge in right forearm. blood collected. Bleeding controlled, band aid applied, catheter tip intact. 22:39 CT Abd/Pelvis - Without Contrast In Process Unspecified. EDMS 10/11 01:14 Jules Williamson MD is Hospitalizing Provider. ec2 01:14 Hospitalizing Provider role handed off by Jules Williamson MD ec2 01:14 Carlos Manuel Williamson MD is Hospitalizing Provider. ec2 03:25 Provided Education on: admission and appendicitis. cp4 03:25 Patient admitted, IV remains in place. cp4 Administered Medications: 10/10 22:30 Drug: Ondansetron IVP 4 mg IVP once; over 2 minutes Route: IVP; Site: left hand; cp4 10/11 00:24 Follow up: Response: No adverse reaction cp4 10/10 22:30 Drug: NS 0.9% IV 1000 ml IV at 1 bolus Per protocol; to be given as a bolus over 60 cp4 minutes Route: IV; Rate: 1 bolus; Site: left hand; 10/11 00:23 Follow up: Response: No adverse reaction; IV Status: Completed infusion cp4 00:23 Drug: Piperacillin-Tazobactam IVPB 3.375 grams IVPB once over 60 mins; (mix in NS 100 cp4 mL) Route: IVPB; Infused Over: 60 mins; Site: left hand; 00:54 Follow up: Response: No adverse reaction; IV Status: Completed infusion cp4 Medication: 10/10 21:54 VIS not applicable for this client. cp4 Outcome: 10/11 01:14 Decision to Hospitalize by Provider. ec2 03:25 Admitted to ER Hold. Please see [facility] for further documentation. cp4 03:25 Condition: stable 03:25 Instructed on the need for admit, 08:21 Patient left the ED. db Signatures: Dispatcher [employer] Milton Tapia RN RN jb4 Klever Whittington Vanessa, RN RN vc1 Marsha Beltran RN RN db Anatoliy Zimmerman MD MD ec2 Kendra Mckeon cp4
--- NOTE | 2024-10-11 01:15 | EDPHYS ---
Physician Documentation [facility] Name: Jayme Galeano Age: 69 yrs Sex: Male : 1955 Arrival Date: 10/10/2024 Time: 21:44 Bed 4 Private MD: ED Physician Anatoliy Zimmerman HPI: 10/10 21:49 This 69 yrs old Male presents to ER via Unassigned with complaints of ec2 Dizziness, Nausea. 21:49 Patient arrives today for evaluation of lightheadedness as well as nausea. Patient ec2 reports that he has been having issues with lightheadedness and nausea with decreased p.o. intake ongoing for the past several days. Was seen outpatient with his primary care doctor and instructed need to follow-up with a GI doctor. Patient reports no significant abdominal pain however does report distention. No urinary complaints. Of note patient with a baseline bradycardia with heart rates in the 40s which are typical for him.. Historical: - Allergies: 21:52 No Known Allergies; cp4 - Immunization history:: Adult Immunizations up to date. - Infectious Disease History:: Denies. - Social history:: Smoking status: Patient denies any tobacco usage or history of. ROS: 21:49 Constitutional: as per hpi ec2 Exam: 21:49 Constitutional: GEN: NAD Head: atraumatic Eyes: EOMI Ears: External ears are ec2 normal. CV: regular rate LUNGS: no respiratory distress ABD: Slightly distended abdomen without tenderness or guarding SKIN: no evidence of rashes MSK: no evidence of trauma Vital Signs: 21:48 BP 126 / 51; Pulse 45; Resp 18; Temp 98.1; Pulse Ox 98% ; Pain 0/10; cp4 23:19 BP 128 / 63; Pulse 40; Resp 18; Pulse Ox 96% ; cp4 10/11 00:00 BP 125 / 57; Pulse 46; Resp 18; Pulse Ox 98% ; cp4 01:25 BP 141 / 62; Pulse 43; Resp 18; Pulse Ox 97% ; cp4 02:17 BP 159 / 65; Pulse 43; Resp 18; Pulse Ox 96% ; cp4 03:26 BP 162 / 75; Pulse 48; Resp 18; Pulse Ox 95% ; cp4 06:33 BP 153 / 65; Pulse 69; ec2 10/10 21:48 Pain Scale: Adult cp4 MDM: 10/10 21:47 Medical Screening Exam initiated ec2 21:50 Data reviewed: vital signs, nurses notes. ED course: Patient arrives today for ec2 evaluation of lightheadedness and nausea. Examination yields slight distention. Otherwise patient appears nontoxic. Will obtain lab work, CT imaging, treat patient symptoms.. 21:56 ED course: EKG independently reviewed and interpreted by me, shows sinus bradycardia ec2 with a rate of [address] segment elevations, intevals are nonactionable.. 10/11 00:00 ED course: Discussed with radiology, CT imaging concerning for appendicitis, ec2 empirically treat with antibiotics. General surgery consulted. Will admit for hospitalization for appendicitis.. 01:14 ED course: Metabolic profile nonactionable, kidney disease noted. Will admit for ec2 uncomplicated appendicitis.. 10/10 21:47 Order name: CBC with Diff; Complete Time: 23:52 ec2 10/10 21:47 Order name: CMP; Complete Time: 01:13 ec2 10/10 21:47 Order name: Lipase; Complete Time: 01:13 ec2 10/10 23:52 Order name: UAM 2 10/11 01:52 Order name: CBC with Automated Diff EDN[facility] 10/11 01:52 Order name: CBC with Automated Diff [facility] 10/11 01:52 Order name: Comprehensive Metabolic Panel [facility] 10/11 01:52 Order name: Comprehensive Metabolic Panel [facility] 10/10 22:21 Order name: CT Abd/Pelvis - Without Contrast; Complete Time: 00:49 ec2 10/11 01:52 Order name: CONS Physician Consult [facility] 10/10 21:47 Order name: IV Saline Lock; Complete Time: 22:23 ec2 10/10 21:47 Order name: Labs collected and sent; Complete Time: 22:23 ec2 10/10 21:49 Order name: EKG - Nurse/Tech; Complete Time: 21:55 ec2 Administered Medications: 10/10 22:30 Drug: Ondansetron IVP 4 mg IVP once; over 2 minutes Route: IVP; Site: left hand; 4 10/11 00:24 Follow up: Response: No adverse reaction [facility] 10/10 22:30 Drug: NS 0.9% IV 1000 ml IV at 1 bolus Per protocol; to be given as a bolus over 60 [facility] minutes Route: IV; Rate: 1 bolus; Site: left hand; 10/11 00:23 Follow up: Response: No adverse reaction; IV Status: Completed infusion cp4 00:23 Drug: Piperacillin-Tazobactam IVPB 3.375 grams IVPB once over 60 mins; (mix in NS 100 cp4 mL) Route: IVPB; Infused Over: 60 mins; Site: left hand; 00:54 Follow up: Response: No adverse reaction; IV Status: Completed infusion cp4 Disposition Summary: 10/11/24 01:14 Hospitalization Ordered Notes: Hospitalization Status: Inpatient Admission ec2 Provider: Carlos Manuel Williamson ec2 Condition: Stable ec2 Problem: new ec2 Symptoms: have improved ec2 Bed/Room Type: Standard ec2 Location: Telemetry/MedSurg (Inpatient)(10/11/24 06:46) af3 Room Assignment: [facility](10/11/24 06:46) af3 Diagnosis - Unspecified acute appendicitis ec2 Forms: - Medication Reconciliation Form ec2 - SBAR form ec2 - Leadership Thank You Letter ec2 Signatures: Dispatcher [employer] EDN[facility] Suzanne Morales RN RN vc1 Anatoliy Zimmerman MD MD ec2 Kendra Mckeon cp4 Shanae Booth af3 Corrections: (The following items were deleted from the chart) 10/10 21:50 21:49 Patient arrives today for evaluation of lightheadedness as well as nausea. ec2 Patient reports that he has been having issues with lightheadedness and nausea with decreased p.o. intake ongoing for the past several days. Was seen outpatient with his primary care doctor and instructed need to follow-up with a GI doctor. Patient reports no significant abdominal pain however does report distention. No urinary complaints.. ec2 22:28 21:48 Abdomen Pelvis W Con+CT.RAD.BRZ ordered. [facility] EDN[facility] 10/11 02:29 01:14 Telemetry/MedSurg (Inpatient) ec2 vc1 02:29 01:14 ec2 vc1 06:46 02:29 [facility] ER HOLD vc1 af3 06:46 02:29 ERHOLD- vc1 af3
[2024-10-11] MEDS ORDERED: GLUCAGON 1 MG/VIAL IM PRN (01:47)
[2024-10-11] MEDS ORDERED: ONDANSETRON 4 MG (ODT) TAB PO PRN (01:47)
--- NOTE | 2024-10-11 01:47 | P.HP ---
Certification for Inpatient With expected LOS: >2 Midnights Practitioner: I am a practitioner with admitting privileges, knowledge of patient current condition, hospital course, and medical plan of care. Services: Services provided to patient in accordance with Admission requirements found in Title 42 Section 412.3 of the Code of Federal Regulations Patient History Date of Service: 10/11/24 Reason for admission: Right lower quadrant pain History of Present Illness: Patient is 69 years of age started having some right lower quadrant abdominal pain about a week ago that apparently improved he then started complaining of bloating he still has some discomfort on breathing admitted with a diagnosis of acute appendicitis Allergies No Known Drug Allergies Allergy (Verified 08/23/20 00:33) Unknown Home Medications: Atorvastatin Calcium [Lipitor] 80 mg PO BEDTIME 07/16/19 Gabapentin 300 mg PO BID 07/16/19 Liraglutide [Victoza 2-Thompson] 1.8 mg SQ DAILY 07/16/19 Aspirin 81 mg PO DAILY 10/15/19 Clopidogrel Bisulfate [Plavix*] 75 mg PO DAILY 10/15/19 Furosemide 40 mg PO DAILY 10/15/19 Isosorbide Mononitrate [Isosorbide Mononitrate ER] 120 mg PO DAILY 10/15/19 Metformin HCl 1,000 mg PO BID 10/15/19 bisacodyL [Dulcolax*] 5 mg PO PRN PRN 10/15/19 Carvedilol [Coreg] 3.125 mg PO DAILY 08/23/20 Fenofibrate [Tricor*] 145 mg PO DAILY 08/23/20 Insulin Degludec [Tresiba] 12 unit SQ DAILY 08/23/20 Lisinopril [Zestril] 2.5 mg PO DAILY 08/23/20 Spironolactone [Aldactone*] 25 mg PO DAILY 08/23/20 icosapent ethyL [Vascepa 1 gm Cap] 1 gm PO BID 08/23/20 - Past Medical/Surgical History Diabetic: Yes -: Coronary Artery disease -: Hypertension -: Diabetes mellitus type 2-insulin dependent -: HLD -: Defibrillator -: Heart stents -: Alcohol use -: Cardiac catheterization -: Cardiac stent -: defibrillator -: triple vessel CABG Psychosocial/ Personal History: Patient is retired and lives with his family - Family History Sister -: Heart disease, Diabetes, Other (see notes) Notes: heart attack Mother -: Diabetes Father -: Diabetes Brother -: Diabetes - Social History Alcohol use: Yes CD- Drugs: No Caffeine use: Yes Review of Systems 10-point ROS is otherwise unremarkable Physical Examination - Vital Signs Blood Pressure: 141/62 Pulse: 44 Respirations: 17 Pulse Ox (%): 98 - Physical Exam General: Alert, Oriented x3, Mild distress Neck: Supple Respiratory: Clear to auscultation bilaterally, Friction rub Cardiovascular: No edema, Regular rate/rhythm, Edema (Minimal edema) Gastrointestinal: Normal bowel sounds, Tenderness (Patient has right lower quadrant tenderness with rebound) Musculoskeletal: No clubbing Integumentary: Rash(es) (Rash in his right forearm) - Studies Laboratory Data (last 24 hrs) 10/11/24 10/10/24 00:15 22:21 WBC 8.90 Hgb 9.6 L Hct 28.5 L Plt Count 172 Sodium 139 Potassium 4.7 BUN 35 H Creatinine 1.54 H Glucose 151 H Total Bilirubin 0.2 AST 30 ALT 27 Alkaline Phosphatase 26 L Lipase 16 Assessment and Plan - Problems (Diagnosis) (1) Appendicitis Current Visit: Yes Status: Acute Plan: Patient is 69 years of age admitted with acute right-sided appendicitis is having pain for the past week now complains of bloating patient has normal white count I suspect his underlying chronic renal failure Findings suggestive of acute appendicitis. Mild surrounding inflammation. No discrete fluid collection or extraluminal gas foci. 2. Mild bilateral perinephric stranding. This is nonspecific and may be chronic. Acute superimposed inflammatory process not excluded. 3. Mild urinary bladder wall thickening. This may be related to bladder outlet obstruction. Please correlate clinically for cystitis. Admit General Surgery consult start on antibiotics n.p.o. Qualifiers: Appendicitis type: acute appendicitis - Advance Directives Does patient have a Living Will: No Does patient have a Durable POA for Healthcare: No
[2024-10-11] MEDS: NA CHLORIDE 0.9% 1,000 ML IV SCH (02:00)
[2024-10-11 03:20] VITALS: BMI 36.6
[2024-10-11] MEDS ORDERED: NA CHLORIDE 0.9% 1,000 ML ONE (06:39)
[2024-10-11] MEDS: INSULIN REGULAR (HUMAN) 100 UNIT/ML SQ SCH (07:30)
[2024-10-11] MEDS: MORPHINE 4 MG/ML SYR IV PRN (10:10)
[2024-10-11] MEDS: PIPER TAZO 4.5 GM in NA CHLORIDE 0.9% 100 ML IV SCH (10:13)
--- NOTE | 2024-10-11 10:47 | P.PN ---
Date of Service: 10/11/24 Patient was seen and evaluated. Patient is a 69-year-old gentleman came to the hospital with abdominal pain. He was seen by truck body builder apprentice who admitted the patient to the hospital for appendicitis. On review of patient's record patient has a history of coronary artery disease with cardiomyopathy. Patient developed cardiac disease in 2007 and he had 2 stents placed at that time. He underwent a ICD implantation for an echocardiogram revealing a left ventricular ejection fraction of 25%. This was done and 2015. In [address] [facility] and at that time he had a left heart catheterization which revealed a 90% proximal LAD lesion and a chronic total occlusion(ASSISTANT SERVICE MANAGER) of the RCA. Patient had coronary artery bypass grafting at that time. This was done in July 2019. His echo continue to show an ejection fraction of 25%. He has been following up with cardiology at [facility]. He is continue to have progressive vascular and cardiac disease. In 2022 he had a acute ischemic stroke and RASHAD at that time showed a right atrial thrombus. He was started on Eliquis. In May 2024 he had a acute CHF exacerbation hospitalization. Patient was diuresed and discharged home. In May 2024 patient had gone into sustained supraventricular tachyarrhythmia and he has a defibrillator cardiovert him. Patient started following up with agricultural equipment sales manager at [facility]. Patient has had a EP study performed and he has been having bradycardia arrhythmias. Patient is EP study did not suggest any significant abnormalities and decision was made at that time to place a lead into the right atrium. This is scheduled for Sunday. In the meantime, patient has been holding his Eliquis and his beta-blockers because of the bradycardia arrhythmia. Patient started having abdominal pain a couple of days ago and he came into the ER last night. Patient was admitted this morning by the truck body builder apprentice for acute appendicitis. This is read as mild on the CT scan. There is no leukocytosis and there is no fever. Patient is currently on IV antibiotics. Patient is at high risk for cardiopulmonary complications for any surgical intervention. Have consulted cardiology for cardiac clearance in case patient will have surgery. At this time we will continue with IV antibiotics and minimal IV fluids because of the low ejection fraction. Patient has been admitted to inpatient hospitalization. Assessment/Plan: 1. Patient with CAD with a history of stent x 2 and coronary artery bypass grafting x 3 2. Heart failure with reduced ejection fraction-EF of 20 to 25% 3. Mild acute appendicitis 4. Patient with a history of PAD (mild) 5. Patient with a history of obstructive sleep apnea 6. Patient with a history of right atrial thrombosis 7. Patient with a history of hyperlipidemia 8. Patient with a history of bilateral carotid artery disease (moderate) Plan at this time will be to continue with IV antibiotics. Await for cardiology clearance as well as surgical input. Continue with cardiac meds at this time but will continue to hold Eliquis. Patient's cardiac procedure may need to be delayed depending on the degree of surgery and the emergent need for surgical intervention.
[2024-10-11 12:13] LABS: Specific Gravity 1.014 (1.005-1.030); Sqamous Epithelial None Seen /HPF (None Seen); Urine Bacteria None Seen /HPF (<20); Urine Bilirubin NEGATIVE (Negative); Urine Blood Negative (Negative); Urine Clarity Clear (Clear); Urine Color Colorless (Yellow); Urine Culture Reflex Order NOT NEEDED; Urine Glucose NEGATIVE (Negative); Urine Ketones NEGATIVE (Negative); Urine Micro Reflex YN NO BILL MICROSCOPIC; Urine Nitrite NEGATIVE (Negative); Urine Protein NEGATIVE (Negative); Urine Urobilinogen Normal (Normal); Urine WBC <5 /HPF (<5); Urine pH 7.5 (5.0-7.0)
[2024-10-11] MEDS ORDERED: MIDAZOLAM HCL 2 MG/2 ML INJ ONE ×2 (13:03→13:53)
[2024-10-11] MEDS ORDERED: LIDOCAINE 2% MPF 5 ML VIAL ONE (13:04)
[2024-10-11] MEDS ORDERED: FENTANYL CITR 100 MCG/2 ML ONE (13:04)
[2024-10-11] MEDS ORDERED: propofoL 200 MG/20 ML VIAL IV ONE (13:05)
[2024-10-11] MEDS ORDERED: EPHEDRINE SULF 50 MG/ML VIAL ONE ×2 (13:06→14:02)
[2024-10-11] MEDS ORDERED: ROCURONIUM 50 MG/5 ML VIAL IV ONE (13:10)
[2024-10-11] MEDS: NA CHLORIDE 0.9% 1,000 ML ONE (13:12)
[2024-10-11] MEDS: SUCCINYLCHOLINE 20 MG/ML (10 ML) IV ONE (13:22)
--- NOTE | 2024-10-11 13:27 | P.CNS ---
Date of Consult: 10/11/24 PC: This 69-year-old patient presented to the emergency room with severe abdominal pain for diagnosis and treatment. HPC: Patient states he is felt unwell for the last 72 hours. Over that time he is just felt distended, having right-sided abdominal pain, and nausea. Now the pain is localized more to the right lower quadrant. PSHx: Previous open heart surgery PMHx: Coronary artery disease, hypertension, CHF, prostate issues Social Hx: No known allergies Sys R: No cough, wheeze, shortness of breath. No chest pain or palpitations. States he is in pretty good health although he was recently told he was anemic at his family doctor and that is gummy worked up as an outpatient over the next few weeks. O/E: Awake alert vital signs are stable HEENT: Not jaundiced Chest: Air entry equal bilaterally Abd: Tender with guarding in the right lower quadrant [place]: Intact Data: CT scan shows inflammation of the appendix with some appendicoliths Impression: Acute abdomen with appendicitis Plan: I will taken the operating room for laparoscopic possible open appendectomy. The risks of this procedure have been discussed. The possibility of bleeding, infection, injury to bowel blood vessels and surrounding structures were outlined. He understands and wants us to proceed.
[2024-10-11] MEDS: DEXTROSE 10%-WATER 500 ML IV ONE (13:29)
[2024-10-11] MEDS: D10W 125 ML IV PRN (13:47)
[2024-10-11] MEDS ORDERED: KETOROLAC 30 MG/ML INJ ONE (13:50)
[2024-10-11] MEDS ORDERED: ONDANSETRON 4 MG/2 ML VIAL ONE (13:51)
[2024-10-11] MEDS ORDERED: Phenylephrine HCl 10 MG/ML 1 ML VIAL ONE ×2 (14:05→14:27)
[2024-10-11] MEDS ORDERED: ATROPINE SULFATE 1 MG/ML INJ ONE (14:07)
[2024-10-11] MEDS ORDERED: NEOSTIGMINE 1 MG/ML -10 ML VIAL ONE (14:47)
[2024-10-11] MEDS ORDERED: GLYCOPYRROLATE 0.2 MG/ML SYR ONE (14:49)
--- NOTE | 2024-10-11 15:18 | P.OP ---
Preoperative diagnosis: Acute abdomen with acute appendicitis Postoperative diagnosis: The same Primary procedure: Laparoscopic appendectomy and Anesthesia: General Estimated blood loss: Less than 10 cc Specimen: Appendix Operative Technique: The patient brought the operating room and placed supine on the table. After the induction of adequate general endotracheal anesthesia, the area of the abdomen was prepped with a DuraPrep solution, and he was draped in the usual aseptic manner. A subumbilical incision was made. This is brought down through the skin and subcutaneous tissue. The Visiport was used to enter the peritoneal cavity and created pneumoperitoneum to approximately 12 mmHg. Under direct vision a fill 5 mm trocar was placed in the lower midline, and another in the right upper quadrant of the abdomen. As expected we found the cecum slightly elevated on the right lateral side of the abdomen. Gently probing around this area we could see that there was an inflammatory process just at the expected junction of the ileocecal valve. The inflamed appendix was seen curving downward and over to the right side of the peritoneal cavity. We were able to grasp the body of the appendix and elevated. There were chronic fibrotic attachments of the base of the appendix to the cecum itself. Gentle dissection allowed us to mobilize these adhesions, and bring the appendix down. We were able to identify the junction of the appendix with the tenia on the cecum. At this point on the inferior portion we noticed that there was actually a small tiny hole that showed chronic inflammation from amatory changes around it. We were able to clear this enough to establish a base of the appendix. The linear stapler was now introduced into the peritoneal cavity after converting the 511 to a 12 mm trocar. The instrument was placed across the base of the appendix and closed. After waiting approximately a minute and a half it was reapplied and then fired. The appendix now having been removed was placed into an Endo Catch and brought out through the umbilical trocar site. We returned back to the cecum. We could see that we had a good staple line, no bleeding was noted, the area was irrigated with a copious amount of a saline solution, and the patient was returned to the neutral position. On doing so we were able to purchase the intestines back into their normal anatomical position. The omentum was then laid down over the top of the small bowel. At this point attention was turned towards the anterior abdominal wall. The Endo Close was now used to approximate the umbilical fascial defect. The pneumoperitoneum was collapsed, the trocars removed, and the suture tied. [place] were then applied to the skin. At the end of the procedure the patient was in a stable condition when wheeled to the recovery room. Needle sponge instrument count were correct. No drains were placed. Complications: None Transferred to: Recovery Room Condition: Good
[2024-10-11] MEDS: SUGAMMADEX SODIUM 200 MG/2 ML VIAL IV ONE (15:20)
[2024-10-11] MEDS ORDERED: ONDANSETRON 4 MG/2 ML VIAL IV PRN (15:38)
[2024-10-11] MEDS: ALBUMIN HUMAN 25% 100 ML IV ONE (16:30)
[2024-10-11] MEDS: FUROSEMIDE 20 MG/ 2ML VIAL IV ONE (16:36)
--- NOTE | 2024-10-11 17:29 | RAD REPORT ---
EXAMINATION: ONE VIEW CHEST XR CLINICAL INDICATION: Male, 69 years old.,chf TECHNIQUE: Frontal chest projection is submitted. Examination is limited by patient positioning and t echnique. COMPARISON: 07/20/2023 FINDINGS: Progressive central interstitial prominence. Right chest wall pacer in place. No pneumothorax or siz able effusion. Stable cardiomegaly. Mediastinal contours are unremarkable. IMPRESSION: Progressive central interstitial prominence, suggesting central congestion or CHF.
[2024-10-11] MEDS: HYDROCODONE/APAP 7.5/325 MG TAB PO PRN (20:39)
[2024-10-11] MEDS: TAMSULOSIN 0.4 MG SR CAP PO ONE (20:39)
--- NOTE | 2024-10-12 03:41 | RAD REPORT ---
EXAM: XR Chest, 1 View CLINICAL HISTORY: SOB, cough TECHNIQUE: Frontal view of the chest. COMPARISON: XR Chest dated 07/20/2023 FINDINGS: Lungs: Mild central pulmonary vascular and interstitial prominence. No consolidation. Pleural space: Unremarkable. No pneumothorax. Heart: The cardiac silhouette is moderately enlarged, stable, in part accentuated by portable techn ique. Mediastinum: Unremarkable. Normal mediastinal contour. Bones/joints: Prior median sternotomy. Multilevel spondylosis. No acute fracture. Tubes, lines and devices: Right chest wall single lead ICD remains in place. IMPRESSION: Findings which may be related to mild pulmonary congestion. Electronically signed by: Isauro Reynoso MD 10/12/2024 03:18 AM [facility] Due to temporary technical issues with the PACS/[employer] reporting system, reports are being tee d by the in-house radiologist without review as a courtesy to ensure prompt reporting the interpreting radiologist is fully responsible for the content of the report. Transcribed Date/Time: 10/12/2024 3:40 AM
[2024-10-12] MEDS: FUROSEMIDE 20 MG/ 2ML VIAL IV ONE (05:33)
[2024-10-12 05:45] LABS: Absolute Lymphocytes (CBC) 1.8 K/uL (0.7-4.9); Absolute Monocytes 0.6 K/uL (0.1-1.3); Absolute Neutrophil 5.2 K/uL (1.8-8.0); Basophils % 0.5 % (0-1.3); Eosinophils % 0.2 % (0-4.4); Hematocrit 25.4 % (39.6-49.0); Hemoglobin 8.4 g/dL (13.6-17.9); Lymphocytes % 23.4 % (15.3-44.8); MCH 30.7 pg (27.0-35.0); MCV 93.2 fL (80-100); MPV 8.9 fL (7.6-11.3); Monocytes % 7.9 % (3.3-12.3); Nucleated Red Blood Cells % 0.1 % (0-0); Platelets 182 thou/uL (152-406); RBC Red Blood Cell Count 2.72 M/uL (4.33-5.43); Red Cell Distribution Width 15.5 % (12.1-15.2)
[2024-10-12 06:07] LABS: Magnesium 1.9 mg/dL (1.6-2.4)
[2024-10-12 06:13] LABS: Albumin 2.9 g/dL (3.4-5.0); Albumin/Globulin Ratio 0.8 (1.1-1.8); Anion Gap 10.1 mEq/L (5.0-15.0); Bilirubin Total 0.5 mg/dL (0.2-1.0); Globulin 3.6 g/dL (2.3-3.5); Potassium 5.1 mEq/L (3.5-5.1); Protein, Total 6.5 g/dL (6.4-8.2)
[2024-10-12] MEDS: ALBUMIN HUMAN 25% 100 ML IV ONE (13:09)
[2024-10-12 16:14] LABS: Anion Gap 11.3 mEq/L (5.0-15.0); Potassium 4.3 mEq/L (3.5-5.1)
--- NOTE | 2024-10-12 17:12 | P.PN ---
Date of Service: 10/12/24 S: Patient feels well today, he is presenting pain is gone. Now he is just sore at the trocar sites. Tolerating a diet, voiding on his own. Good effort on incentive spirometry. O: Looks comfortable A: Stable status post laparoscopic appendectomy P: The patient has some fluid issues last night as well as some changes in his chemistries which are being addressed by the medical service. He is stable from a surgical pain of view to be discharged. He will see me on Sunday in my office at 10 AM. Please has my cell phone number should she have any questions or problems. Patient to be discharged when hospitalist decide. Does not require antibiotics from my point of view.
[2024-10-12] MEDS: GABAPENTIN 300 MG CAP PO SCH (20:56)
[2024-10-12] MEDS: carvediloL 3.125 MG TAB PO SCH (20:56)
[2024-10-12] MEDS: ATORVASTATIN 40 MG TAB PO SCH (20:56)
--- NOTE | 2024-10-13 01:23 | P.PN ---
Subjective Date of Service: 10/12/24 Patient is postop day 1. Patient doing a little bit better. patient denies any new complaints at this time. Patient renal function is slightly worse. Patient given Flomax and Lasix. Clinically doing better and if renal function improves anticipate discharge home. Review of Systems 10-point ROS is otherwise unremarkable Physical Examination - Vital Signs Temperature: 98.1 F Blood Pressure: 122/58 Pulse: 69 Respirations: 18 Pulse Ox (%): 96 - Physical Exam General: Alert, In no apparent distress, Oriented x3 HEENT: Atraumatic, PERRLA, EOMI Neck: Supple, JVD not distended Respiratory: Clear to auscultation bilaterally, Normal air movement Cardiovascular: Regular rate/rhythm, Normal S1 S2, No murmurs Gastrointestinal: Normal bowel sounds, Soft and benign, Non-distended, Tenderness ( Appropriately tender) Musculoskeletal: No clubbing, No swelling, No tenderness Neurological: Sensation intact, Cranial nerves 3-12 intact - Studies Medications List Reviewed: Yes Assessment & Plan - Plan Assessment/Plan: 1. Patient with CAD with a history of stent x 2 and coronary artery bypass grafting x 3 ; continue with cardiac meds at this time. 2. Heart failure with reduced ejection fraction-EF of 20 to 25% ; outpatient cardiology follow-up. Continue with cardiac meds and continue with diuretics. 3. Mild acute appendicitis status post laparoscopic appendectomy; continue with supportive care. Continue with prophylactic antibiotics. Anticipate discharge home in a.m.. 4. Patient with a history of PAD (mild); continue with anti-platelet therapy and statin therapy. 5. Patient with a history of obstructive sleep apnea; Continue with CPAP 6. Patient with a history of right atrial thrombosis ; resume anticoagulation 7. Patient with a history of hyperlipidemia 8. Patient with a history of bilateral carotid artery disease (moderate); continue with anti-platelet therapy and statin therapy. 9. Acute on chronic kidney disease in a patient with BPH; continue with diuretics and albumin. Repeat labs in a.m.. If this is better then anticipate discharge home in a.m.. Discharge Plan: Home Plan to discharge in: Greater than 2 days - Advance Directives Does patient have a Living Will: No Does patient have a Durable POA for Healthcare: No - Code Status/Comfort Care Code Status Assessed: Yes Code Status: Full Code Critical Care: No Time Spent Managing PTS Care (In Minutes): 35
[2024-10-13] MEDS: FENOFIBRATE 160 MG TAB PO SCH (08:27)
[2024-10-13] MEDS: CLOPIDOGREL 75 MG TABLET PO SCH (08:27)
[2024-10-13] MEDS: HOME MED 1 EA UNK (Insulin Degludec [Tresiba] 100 UNIT/ML Vial) SQ SCH (08:27)
[2024-10-13] MEDS: ASPIRIN 81 MG CHEWABLE TABLET PO SCH (08:28)
[2024-10-13] MEDS: FUROSEMIDE 40 MG TABLET PO SCH (08:28)
--- NOTE | 2024-10-13 10:15 | P.CNS ---
Date of Consult: 10/13/24 Chief Complaint: Right lower quadrant pain History of Present Illness: Patient with PMH of CAD CABG, PAD, stroke and Heart failure presented with abdominal pain s/p surgery for appendicitis, tolerated surgery well, denies chest pain, no palpitations, no SOB, no syncope, follow up with [facility] cardiology. Allergies No Known Drug Allergies Allergy (Verified 08/23/20 00:33) Unknown Home medications list reviewed: Yes Home Medications: Atorvastatin Calcium [Lipitor] 80 mg PO BEDTIME 07/16/19 Gabapentin 300 mg PO BID 07/16/19 Liraglutide [Victoza 2-Thompson] 1.8 mg SQ DAILY 07/16/19 Aspirin 81 mg PO DAILY 10/15/19 Clopidogrel Bisulfate [Plavix*] 75 mg PO DAILY 10/15/19 Furosemide 40 mg PO DAILY 10/15/19 Isosorbide Mononitrate [Isosorbide Mononitrate ER] 120 mg PO DAILY 10/15/19 Metformin HCl 1,000 mg PO BID 10/15/19 bisacodyL [Dulcolax*] 5 mg PO PRN PRN 10/15/19 Carvedilol [Coreg] 3.125 mg PO DAILY 08/23/20 Fenofibrate [Tricor*] 145 mg PO DAILY 08/23/20 Insulin Degludec [Tresiba] 12 unit SQ DAILY 08/23/20 Lisinopril [Zestril] 2.5 mg PO DAILY 08/23/20 Spironolactone [Aldactone*] 25 mg PO DAILY 08/23/20 icosapent ethyL [Vascepa 1 gm Cap] 1 gm PO BID 08/23/20 Amox/K Clav [Augmentin 600 MG/5 ML Susp] 5 ml PO BID #30 ml 10/13/24 Hydrocodone 7.5/APAP 325 [Poth 7.5/325 mg*] 1 tab PO Q6H PRN #20 tab 10/13/24 - Past Medical/Surgical History Diabetic: Yes -: Coronary Artery disease -: Hypertension -: Diabetes mellitus type 2-insulin dependent -: HLD -: Defibrillator -: Heart stents -: Alcohol use -: Cardiac catheterization -: Cardiac stent -: defibrillator -: triple vessel CABG Psychosocial/ Personal History: Patient is retired and lives with his family - Family History Sister Medical History: Heart disease, Diabetes, Other (see notes) Notes: heart attack Mother Medical History: Diabetes Father Medical History: Diabetes Brother Medical History: Diabetes - Social History Smoking Status: Unknown if ever smoked Alcohol use: Yes CD- Drugs: No Caffeine use: Yes Review of Systems 10-point ROS is otherwise unremarkable Physical Examination Temp Pulse Resp BP Pulse Ox 98.0 F 66 18 151/65 H 99 10/13/24 08:00 10/13/24 08:28 10/13/24 08:30 10/13/24 08:28 10/13/24 08:30 General: Alert, In no apparent distress HEENT: Atraumatic, PERRLA, Mucous membr. moist/pink, EOMI, Sclerae nonicteric Neck: Supple, 2+ carotid pulse no bruit, No LAD, Without JVD or thyroid abnormality Respiratory: Clear to auscultation bilaterally, Normal air movement Cardiovascular: Regular rate/rhythm, Normal S1 S2 Gastrointestinal: Normal bowel sounds, No tenderness Musculoskeletal: No tenderness Integumentary: No rashes Neurological: Normal gait, Normal speech, Normal tone, Normal affect Lymphatics: No axilla or inguinal lymphadenopathy - Problems (1) Chronic heart failure Current Visit: Yes Status: Acute Plan: Patient looks euvolemic on exam continue Coreg, Spirnolactone, lisinopril and lasix continue to follow up with his outpatient pre coder. (2) CAD (coronary artery disease) Current Visit: No Status: Acute Plan: no chest pain, tolerated surgery well continue ASA and Plavix.
[2024-10-13] MEDS: ALBUMIN HUMAN 25% 50 ML IV ONE (11:26)
[2024-10-13] MEDS: FUROSEMIDE 20 MG/ 2ML VIAL IV ONE (11:26)
[2024-10-14 15:09] VITALS: BP 151/65; TEMP 98; O2SAT 96
--- NOTE | 2024-10-16 12:16 | EKG ---
Test Date: 2024-10-10 Test Time: 21:52:01 Tree Faller: YARY MEASUREMENT RESULTS: Intervals: Rate: 41 NH: QRSD: 100 QT: 474 QTc: 391 [place]: P: NH: QRS: 50 T: 249 INTERPRETIVE STATEMENTS: Junctional bradycardia Inferior infarct, age undetermined Anterior infarct, age undetermined Abnormal ECG Compared to ECG 07/20/2023 04:58:50 Sinus rhythm no longer present Ventricular premature complex(es) no longer present Myocardial infarct finding still present Electronically Signed On 10-16-24 12:13:13 IRRIGATION EQUIPMENT REMOVER by Nick Moreno
== END 2024-10-13 12:45 | disposition home or self-care (01) | DRG 398 ==
LOC: ER 21:44 → ERHOLD 10-11 01:47 → 4TH 10-11 07:58
PROVIDERS: ADMIT Internal Medicine Sleep Medicine; ATTEND Hospitalist
PROC: 0DTJ4ZZ Resection of Appendix, Percutaneous Endoscopic Approach (ICD-10-PCS; principal; 2024-10-11 13:15)
DX: K35.80 Unspecified acute appendicitis (principal); I13.0 Hypertensive heart and chronic kidney disease with heart failure and stage 1 through stage 4 chronic kidney disease, or unspecified chronic kidney disease; I50.22 Chronic systolic (congestive) heart failure; N18.9 Chronic kidney disease, unspecified; E78.5 Hyperlipidemia, unspecified; I73.9 Peripheral vascular disease, unspecified; N40.0 Benign prostatic hyperplasia without lower urinary tract symptoms; I25.10 Atherosclerotic heart disease of native coronary artery without angina pectoris; Z95.1 Presence of aortocoronary bypass graft; Z95.5 Presence of coronary angioplasty implant and graft; Z79.82 Long term (current) use of aspirin; Z79.02 Long term (current) use of antithrombotics/antiplatelets; Z79.899 Other long term (current) drug therapy
CPT/HCPCS: 36415; 71045; 74176; 80048; 80053; 81001; 82947; 83690; 83735; 83880; 85025; 88304; 93005; 94010; 96361; 96365; 96375; 99285; J0461; J1940; J2003; J2250; J2371; J2405; J2543; J2704; J2710; J3010; J7030; P9047

== ENCOUNTER 2025-02-04 05:28 | Day surgery (SDC) | payer OTHER ==
[2025-02-04] MEDS ORDERED: NA CHLORIDE 0.9% 1,000 ML ONE (06:22)
[2025-02-04 06:47] LABS: Absolute Basophils 0.1 K/uL (0-0.5); Absolute Eosinophils 0.2 K/uL (0-0.5); Absolute Lymphocytes (CBC) 2.6 K/uL (0.7-4.9); Absolute Monocytes 0.8 K/uL (0.1-1.3); Absolute Neutrophil 3.2 K/uL (1.8-8.0); Basophils % 0.8 % (0-1.3); Eosinophils % 3.5 % (0-4.4); Hematocrit 31.4 % (39.6-49.0); Hemoglobin 10.8 g/dL (13.6-17.9); Lymphocytes % 37.7 % (15.3-44.8); MCHC 34.3 g/dL (32.0-36.0); MCV 90.3 fL (80-100); MPV 8.8 fL (7.6-11.3); Monocytes % 12.1 % (3.3-12.3); Neutrophils % 45.9 % (41.7-73.7); Nucleated Red Blood Cells % 0.1 % (0-0); Platelets 182 thou/uL (152-406); RBC Red Blood Cell Count 3.47 M/uL (4.33-5.43); Red Cell Distribution Width 15.8 % (12.1-15.2)
[2025-02-04 06:50] LABS: PTT, Activated Partial Thromb 35.2 SECONDS (27.2-37.4); Protime INR 1.24
[2025-02-04 07:01] LABS: Anion Gap 10.2 mEq/L (5.0-15.0); Potassium 4.2 mEq/L (3.5-5.1)
[2025-02-04] MEDS ORDERED: MIDAZOLAM HCL 2 MG/2 ML INJ ONE ×2 (07:14→08:54)
[2025-02-04] MEDS ORDERED: propofoL 200 MG/20 ML VIAL IV ONE ×2 (07:14→08:54)
[2025-02-04] MEDS ORDERED: LIDOCAINE 1% MPF 5 ML VIAL ONE ×2 (07:14→08:54)
[2025-02-04] MEDS ORDERED: FENTANYL CITR 100 MCG/2 ML ONE ×2 (07:14→08:54)
--- NOTE | 2025-02-04 07:44 | RAD REPORT ---
EXAMINATION: TWO VIEW CHEST XR CLINICAL INDICATION: Male, 69 years old. [facility] ORDERED FOR SX TECHNIQUE: 2 view radiographs of the chest were performed. COMPARISON: 10/12/2024 FINDINGS: The lungs are well inflated and clear. Interval improvement of central interstitial prominence. No pn eumothorax or sizable effusion. Stable cardiomegaly. Mediastinal contours are unremarkable. IMPRESSION: No acute pulmonary process. Interval improvement of central interstitial prominence.
[2025-02-04] MEDS ORDERED: ONDANSETRON 4 MG/2 ML VIAL ONE (08:55)
[2025-02-04] MEDS: CEFAZOLIN SODIUM 1 GM/VIAL ONE (09:10)
[2025-02-04] MEDS ORDERED: EPHEDRINE SULF 50 MG/ML VIAL ONE (09:17)
[2025-02-04] MEDS: BUPIVACAINE 0.5% PF 10 ML VIAL ONE (09:27)
--- NOTE | 2025-02-04 09:49 | P.BOP ---
Preoperative diagnosis: perineal abscess Postoperative diagnosis: perineal abscess with infected subQ mass Primary procedure: Incision and drainage of complex perineal abscess with excisional biopsy Secondary procedure: of infected subcutaneous mass 4x4x 1.5cm Estimated blood loss: 10cc Specimen: mass, abscess culture Findings: se dictation Anesthesia: General Complications: None Drain(s): Other (wet to dry) Transferred to: Recovery Room Condition: Good
[2025-02-04 10:44] VITALS: BP 129/63; TEMP 97.1; O2SAT 99
[2025-02-04] MEDS: CODEINE 30MG/APAP 300MG TAB ONE (10:55)
--- NOTE | 2025-02-04 12:33 | OP ---
Date of Procedure: 02/04/2025 Surgeon: Willam Reina MD Preoperative Diagnosis: Perineal abscess. Postoperative Diagnoses: Perineal abscess plus infected subcutaneous mass. Procedures: Incision and drainage of complex perineal abscess with excisional biopsy of infected sub cutaneous mass. The area is about 4 x 4 x 1.5 cm including the abscess. Estimated Blood Loss: 10 cc. Specimen: Mass, abscess culture. Findings: Patient has an infection which is about 4 to almost 5 cm, about 4 today on the base of the scrotum on the perineum on the left side, bleeding, purulent discharge, pain, discomfort, too tender to be examined in the office. So, we offered him examination under anesthesia and incision and drai nage of a complex perineal abscess with benefits, alternatives, and risks including, but not limited to, infection, bleeding, damage to adjacent structures, anesthesia complication, nonhealing wound, TN , and even . He also understands this may not relieve any symptoms. He might need more than on e surgical intervention. He understands he might require wound care. He signed a consent. Description Of Procedure: The area of concern was marked by me and the patient in the holding room. Patient was brought to the operating room, placed in supine position. Anesthesia was induced withou t complication. The patient was placed in supine position with the legs frog-legged with proper prot ection. We identified the area. After time-out, we injected local anesthetic after the area was pre pped and draped in a sterile fashion, made an incision. We noticed the patient to have this abscess with purulent discharge, but at the same time is the patient's content consistent with infected subcu taneous mass that led into all this abscess. The whole area was clean. There were multiple loculati ons, does not penetrate the scrotum, although it is at the base of the scrotum. Loculations were exp lored, opened. The area was irrigated and then applied local anesthetic and covered with wet-to-dry dressing. Patient tolerated the procedure well. Patient was sent to Recovery in stable condition. PRESTON/FITZ Voice ID: [id number] Report ID: [id number]
--- NOTE | 2025-02-05 11:44 | EKG ---
Test Date: 2025-02-04 Test Time: 07:00:13 Sales Representative [employer]: EVELINE MEASUREMENT RESULTS: Intervals: Rate: 71 ND: 214 QRSD: 112 QT: 394 QTc: 428 [place]: P: 63 ND: 214 QRS: 90 T: -41 INTERPRETIVE STATEMENTS: Sinus rhythm with 1st degree AV block Inferior infarct, age undetermined Anterolateral infarct, age undetermined Abnormal ECG Compared to ECG 10/10/2024 21:52:01 First degree AV block now present Myocardial infarct finding still present Electronically Signed On 02-05-25 11:40:51 CDT by Nick Moreno
== END 2025-02-04 11:37 | disposition home or self-care (01) ==
LOC: DS 05:28
PROVIDERS: ATTEND Surgery
PROC: 0HB9XZZ Excision of Perineum Skin, External Approach (ICD-10-PCS; principal; 2025-02-04 07:30)
DX: L72.0 Epidermal cyst (principal); L02.215 Cutaneous abscess of perineum; L08.9 Local infection of the skin and subcutaneous tissue, unspecified
CPT/HCPCS: 93005; 87070; 85025; 80048; 36415; 87205 ×2; 85610; 82947 ×2; 88304; 85730; 87075; 71046; 11424; J2704; J2003; J2250; J3010; J2405; J7030; J0690; 88305